=== PATIENT | female | born 1995 | race Caucasian/White ===

== ENCOUNTER 2022-09-08 12:18 | Outpatient (OUT) | payer BC, SELFPAY ==
[2022-09-09 01:07] LABS: Progesterone 22.8 ng/mL (.)
== END 2022-09-08 12:19 ==
LOC: LAB 09-21 12:18
PROVIDERS: PCP Family Medicine; Visit Provider Obstetrics & Gynecology
DX: N97.0 Female infertility associated with anovulation (principal)
CPT/HCPCS: 36415; 84144

== ENCOUNTER 2022-10-09 09:27 | Outpatient (OUT) | payer BC, SELFPAY ==
[2022-10-10 07:07] LABS: Progesterone 29.9 ng/mL (.)
== END 2022-10-09 09:28 | disposition home or self-care (01) ==
PROVIDERS: PCP Family Medicine; Visit Provider Obstetrics & Gynecology
DX: N97.0 Female infertility associated with anovulation (principal)
CPT/HCPCS: 36415; 84144

== ENCOUNTER 2022-12-10 12:07 | Outpatient (OUT) | payer BC, SELFPAY ==
[2022-12-10 12:50] LABS: HCG Quantitative 77 mIU/mL
== END 2022-12-10 12:08 | disposition home or self-care (01) ==
LOC: LAB 12:08
PROVIDERS: PCP Family Medicine; Visit Provider Family Medicine
DX: N91.2 Amenorrhea, unspecified (principal)
CPT/HCPCS: 36415; 84702

== ENCOUNTER 2022-12-14 12:14 | Outpatient (OUT) | payer BC, SELFPAY ==
[2022-12-14 13:06] LABS: HCG Quantitative 333 mIU/mL
== END 2022-12-14 12:15 | disposition home or self-care (01) ==
LOC: LAB 12:19
PROVIDERS: PCP Family Medicine; Visit Provider Obstetrics & Gynecology
DX: N92.6 Irregular menstruation, unspecified (principal)
CPT/HCPCS: 36415; 84702

== ENCOUNTER 2022-12-21 16:54 | Outpatient (OUT) | payer BC, SELFPAY ==
[2022-12-21 17:56] LABS: HCG Quantitative 6023 mIU/mL
== END 2022-12-21 16:55 | disposition home or self-care (01) ==
PROVIDERS: PCP Family Medicine; Visit Provider Obstetrics & Gynecology
DX: N92.6 Irregular menstruation, unspecified (principal)
CPT/HCPCS: 36415; 84702

== ENCOUNTER 2023-01-13 13:02 | Outpatient (OUT) | payer BC, SELFPAY ==
--- NOTE | 2023-01-13 13:04 | US_ITS ---
[address] [address] Patient Name: ESTER BRADFORD MRN: [facility]:[id number] date: 1995 Sex: F Assigned Patient Location: US Current Patient Location: US Accession/Order Number: [id number] Exam Date: 01/13/2023 13:05 Report Date: 01/13/2023 14:16 At the request of: RICARDO LEGGETT Procedure: US OB transvaginal EXAMINATION: US OB transvaginal HISTORY: MISSED MENSES COMPARISON: No relevant comparison available. FINDINGS: [place] intrauterine gestation Gestational sac: 3.63 cm, 8 weeks 6 days CRL: 2.10 cm, 8 weeks 5 days Yolk sac: 3.7 mm Heart rate: 166 bpm Cervix: Closed, 4.2 cm The uterus is normal, retroverted, retroflexed The right ovary is normal. The left ovary is not visualized Clinical age: 8 weeks 6 days Clinical NITHYA: 08/19/2023 Ultrasound age: 8 weeks 5 days Ultrasound NITHYA: 08/20/2023 US/US OB transvaginal IMPRESSION: Viable [place] intrauterine gestation measuring 8 weeks 5 days Electronically authenticated by: DUDLEY HERNÁNDEZ Date: 01/13/2023 14:16
== END 2023-01-13 13:03 | disposition home or self-care (01) ==
LOC: US 13:02
PROVIDERS: PCP Family Medicine; Visit Provider Obstetrics & Gynecology
DX: Z34.91 Encounter for supervision of normal pregnancy, unspecified, first trimester (principal); Z3A.08 8 weeks gestation of pregnancy
CPT/HCPCS: 76817

== ENCOUNTER 2023-01-24 12:13 | Outpatient (OUT) | payer BC, SELFPAY ==
[2023-01-24 12:46] LABS: Basophils Percent Auto 0.2 % (0.2-2.0); Eosinophils Absolute Auto 0.1 10^3/uL (0.0-0.7); Hematocrit 35.3 % (36.0-48.0); Hemoglobin 11.9 g/dL (12.0-16.0); Immature Granulocytes Abs Auto 0.03 10^3/uL (0.00-0.03); Immature Granulocytes Pct Auto 0.3 % (0.0-0.5); Lymphocytes Percent Auto 20.9 % (20.5-60.0); Mean Corpuscular HGB Conc 33.7 g/dL (29.9-35.2); Mean Corpuscular Hemoglobin 29.3 pg (26.7-34.0); Mean Corpuscular Volume 86.9 fL (81.0-99.0); Mean Platelet Volume 9.5 fL (9.5-13.5); Monocytes Absolute Auto 0.8 10^3/uL (0.3-0.8); Monocytes Percent Auto 7.9 % (1.7-12.0); Neutrophils Absolute Auto 6.7 10^3/uL (1.4-6.5); Neutrophils Percent Auto 69.7 % (43.0-75.0); Platelet Count 301 10^3/uL (150-450); Red Blood Count 4.06 10^6/uL (4.20-5.40); Red Cell Distribution Width 12.8 % (11.0-15.0); White Blood Count 9.6 10^3/uL (4.0-11.0)
[2023-01-24 12:54] LABS: Estimated Average Glucose 94 mg/dL; Glycohemoglobin A1C 4.9 % (4.5-6.2)
[2023-01-24 13:32] LABS: Thyroid Stimulating Hormone 0.606 uIU/mL (0.358-3.740)
[2023-01-25 06:18] LABS: HBsAg Screen Negative (Negative); HCV Ab Non Reactive (Non Reactive); HIV Ab/p24 Ag Screen Non Reactive (Non Reactive); Rubella Antibodies, IgG 7.95 index (Immune >0.99)
[2023-01-25 11:08] LABS: Rapid Plasma Reagin, Quant Non Reactive titer (NonRea<1:1)
== END 2023-01-24 12:14 | disposition home or self-care (01) ==
LOC: LAB 12:13
PROVIDERS: PCP Family Medicine; Visit Provider Obstetrics & Gynecology
DX: Z34.80 Encounter for supervision of other normal pregnancy, unspecified trimester (principal)
CPT/HCPCS: 36415; 83036; 84443; 85025; 86592; 86762; 86803; 86850; 86900; 86901; 87086; 87340; 87389

== ENCOUNTER 2023-02-08 17:16 | Outpatient (RCR) | payer BC, SELFPAY ==
[2023-02-08] MEDS: 0.9 % SODIUM CHLORIDE 1,000 ML 1000 ML IV (17:43)
[2023-02-08 17:50] LABS: Basophils Percent Auto 0.4 % (0.2-2.0); Eosinophils Absolute Auto 0.1 10^3/uL (0.0-0.7); Eosinophils Percent Auto 1.1 % (0.9-7.0); Hematocrit 37.8 % (36.0-48.0); Hemoglobin 12.6 g/dL (12.0-16.0); Immature Granulocytes Abs Auto 0.04 10^3/uL (0.00-0.03); Immature Granulocytes Pct Auto 0.4 % (0.0-0.5); Lymphocytes Absolute Auto 2.1 10^3/uL (1.2-3.8); Lymphocytes Percent Auto 18.9 % (20.5-60.0); Mean Corpuscular HGB Conc 33.3 g/dL (29.9-35.2); Mean Corpuscular Volume 87.1 fL (81.0-99.0); Mean Platelet Volume 9.1 fL (9.5-13.5); Monocytes Absolute Auto 0.9 10^3/uL (0.3-0.8); Monocytes Percent Auto 7.8 % (1.7-12.0); Neutrophils Absolute Auto 8.1 10^3/uL (1.4-6.5); Neutrophils Percent Auto 71.4 % (43.0-75.0); Platelet Count 292 10^3/uL (150-450); Red Blood Count 4.34 10^6/uL (4.20-5.40); White Blood Count 11.3 10^3/uL (4.0-11.0)
[2023-02-08 18:10] LABS: Alanine Aminotransferase 14 U/L (14-59); Albumin Globulin Ratio 0.9; Albumin Level 3.7 g/dL (3.4-5.0); Alkaline Phosphatase 56 U/L (46-116); Anion Gap 13.4; Aspartate Amino Transferase 13 U/L (15-37); BUN Creatinine Ratio 16.1; Calcium 9.1 mg/dL (8.5-10.1); Carbon Dioxide 23.2 mmol/L (21.0-32.0); Chloride 101 mmol/L (98-107); Estimated GFR (African America >60 (>=60); Estimated GFR (Non-African Ame >60 (>=60); Globulin 3.9 g/dL; Glucose 85 mg/dL (74-106); Potassium 3.6 mmol/L (3.5-5.1); Sodium 134 mmol/L (136-145); Total Protein 7.6 g/dL (6.4-8.2)
== END 2023-02-24 23:59 | disposition home or self-care (01) ==
LOC: INF 17:16
PROVIDERS: PCP Family Medicine; Visit Provider Family Medicine
DX: E86.0 Dehydration (principal)
CPT/HCPCS: 36415; 80053; 85025

== ENCOUNTER 2023-02-22 10:35 | Outpatient (REF) | payer BC, SELFPAY ==
[2023-02-22 10:37] LABS: Adenovirus NOT DETECTED (NOT DETECTE); Bordetella parapertussis NOT DETECTED (NOT DETECTE); Coronavirus 229E NOT DETECTED (NOT DETECTE); Coronavirus HKU1 NOT DETECTED (NOT DETECTE); Coronavirus NL63 NOT DETECTED (NOT DETECTE); Coronavirus OC43 NOT DETECTED (NOT DETECTE); Human Metapneumovirus NOT DETECTED (NOT DETECTE); Human Rhinovirus/Enterovirus NOT DETECTED (NOT DETECTE); Influenza A NOT DETECTED (NOT DETECTE); Influenza B NOT DETECTED (NOT DETECTE); Mycoplasma pneumoniae NOT DETECTED (NOT DETECTE); Parainfluenza Virus 1 NOT DETECTED (NOT DETECTE); Parainfluenza Virus 2 NOT DETECTED (NOT DETECTE); Parainfluenza Virus 3 NOT DETECTED (NOT DETECTE); Parainfluenza Virus 4 NOT DETECTED (NOT DETECTE); Respiratory Syncytial Virus NOT DETECTED (NOT DETECTE); SARS-CoV-2 NOT DETECTED (NOT DETECTE)
== END 2023-02-22 10:36 | disposition home or self-care (01) ==
LOC: LAB 10:35
PROVIDERS: PCP Family Medicine; Visit Provider Family Medicine
DX: J32.9 Chronic sinusitis, unspecified (principal); N92.6 Irregular menstruation, unspecified
CPT/HCPCS: 0202U

== ENCOUNTER 2023-03-15 20:42 | Outpatient (REF) | payer BC, SELFPAY ==
[2023-03-18 14:10] LABS: Age Gdln ACOG Testing Note (.); IGP, rfx Aptima HPV ASCU Note (.)
== END 2023-03-15 20:43 | disposition home or self-care (01) ==
LOC: LAB 20:42
PROVIDERS: PCP Family Medicine; Visit Provider Obstetrics & Gynecology
DX: Z01.419 Encounter for gynecological examination (general) (routine) without abnormal findings (principal); N89.8 Other specified noninflammatory disorders of vagina; N92.6 Irregular menstruation, unspecified
CPT/HCPCS: G0145

== ENCOUNTER 2023-03-31 18:53 | Outpatient (OUT) | payer BC, SELFPAY ==
--- OUTSIDE RECORDS SUMMARY | 2023-03-31 18:56 | XMS_ITS | CCD ---
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 Name Role Phone Lydia Dudley Unavailable Mohini Martinez Unavailable OLEKSANDR ., DR SILVA Admitting Unavailable OLEKSANDR ., DR SILVA Attending Unavailable HOY ., DR PERDUE Primary Care Unavailable EDGAR, DR DUDLEY Emanuel Consulting Unavailable OLEKSANDR ., DR SILVA Consulting Unavailable JAMIL REEVES Admitting Unavailable JAMIL REEVES Attending Unavailable HOY ., DR PERDUE Primary Care Unavailable HOY ., DR PERDUE Consulting Unavailable DUDLEY LANE Consulting Unavailable HOY ., DR PERDUE Admitting Unavailable HOY ., DR PERDUE Attending Unavailable HOY ., DR PERDUE Primary Care Unavailable HOY ., DR PERDUE Consulting Unavailable JUD, DR DUDLEY Emanuel Consulting Unavailable OLEKSANDR ., DR SILVA Admitting Unavailable OLEKSANDR ., DR SILVA Attending Unavailable HOY ., DR PERDUE Referring Unavailable HOY ., DR PERDUE Primary Care Unavailable OLEKSANDR ., DR SILVA Consulting Unavailable HOY ., DR PERDUE Admitting Unavailable HOY ., DR PERDUE Attending Unavailable HOY ., DR PERDUE Consulting Unavailable HOY ., DR PERDUE Primary Care Unavailable HOY ., DR PERDUE Admitting Unavailable HOY ., DR PERDUE Attending Unavailable HOY ., DR PERDUE Primary Care Unavailable HOY ., DR PERDUE Consulting Unavailable OLEKSANDR ., DR SILVA Admitting Unavailable OLEKSANDR ., DR SILVA Attending Unavailable HOY ., DR PERDUE Primary Care Unavailable OLEKSANDR ., DR SILVA Consulting Unavailable HOY ., DR PERDUE Admitting Unavailable HOY ., DR PERDUE Attending Unavailable HOY ., DR PERDUE Primary Care Unavailable HOY ., DR PERDUE Consulting Unavailable HOY ., DR PERDUE Admitting Unavailable HOY ., DR PERDUE Attending Unavailable HOY ., DR PERDUE Primary Care Unavailable HOY ., DR PERDUE Consulting Unavailable OLEKSANDR ., DR SILVA Admitting Unavailable OLEKSANDR ., DR SILVA Attending Unavailable HOY ., DR PERDUE Primary Care Unavailable OLEKSANDR ., DR SILVA Consulting Unavailable OLEKSANDR ., DR SILVA Admitting Unavailable OLEKSANDR ., DR SILVA Attending Unavailable HOY ., DR PERDUE Primary Care Unavailable OLEKSANDR ., DR SILVA Consulting Unavailable OLEKSANDR ., DR SILVA Admitting Unavailable OLEKSANDR ., DR SILVA Attending Unavailable HOY ., DR PERDUE Primary Care Unavailable OLEKSANDR ., DR SILVA Consulting Unavailable HOY ., DR PERDUE Admitting Unavailable HOY ., DR PERDUE Attending Unavailable HOY ., DR PERDUE Primary Care Unavailable HOY ., DR PERDUE Consulting Unavailable HOY ., DR PERDUE Admitting Unavailable HOY ., DR PERDUE Attending Unavailable HOY ., DR PERDUE Primary Care Unavailable HOY ., DR PERDUE Consulting Unavailable Lam Vela Consulting Unavailable OLEKSANDR ., DR SILVA Admitting Unavailable OLEKSANDR ., DR SILVA Attending Unavailable HOY ., DR PERDUE Primary Care Unavailable OLEKSANDR ., DR SILVA Consulting Unavailable HOY ., DR PERDUE Admitting Unavailable HOY ., DR PERDUE Attending Unavailable HOY ., DR PERDUE Primary Care Unavailable HOY ., DR PERDUE Consulting Unavailable HOY ., DR PERDUE Admitting Unavailable HOY ., DR PERDUE Attending Unavailable HOY ., DR PERDUE Primary Care Unavailable HOY ., DR PERDUE Consulting Unavailable OLEKSANDR ., DR SILVA Admitting Unavailable OLEKSANDR ., DR SILVA Attending Unavailable HOY ., DR PERDUE Primary Care Unavailable OLEKSANDR ., DR SILVA Consulting Unavailable DAQUAN WADDELL Consulting Unavailable ALLISON BROOKE Consulting Unavailable OLEKSANDR ., DR SILVA Admitting Unavailable OLEKSANDR ., DR SILAV Attending Unavailable HOY ., DR PERDUE Primary Care Unavailable OLEKSANDR ., DR SILVA Consulting Unavailable HOY ., DR PERDUE Admitting Unavailable HOY ., DR PERDUE Attending Unavailable HOY ., DR PERDUE Primary Care Unavailable HOY ., DR PERDUE Consulting Unavailable HOY ., DR PERDUE Attending Unavailable HOY ., DR PERDUE Primary Care Unavailable HOY ., DR PERDUE Consulting Unavailable HOY ., DR PERDUE Admitting Unavailable HOY ., DR PERDUE Admitting Unavailable HOY ., DR PERDUE Attending Unavailable HOY ., DR PERDUE Primary Care Unavailable HOY ., DR PERDUE Consulting Unavailable OLEKSANDR ., DR SILVA Admitting Unavailable OLEKSANDR ., DR SILVA Attending Unavailable HOY ., DR PERDUE Primary Care Unavailable OLEKSANDR ., DR SILVA Consulting Unavailable Lam Vela Consulting Unavailable OLEKSANDR ., DR SILVA Admitting Unavailable OLEKSANDR ., DR SILVA Attending Unavailable HOY ., DR PERDUE Primary Care Unavailable OLEKSANDR ., DR SILVA Admitting Unavailable OLEKSANDR ., DR SILVA Attending Unavailable HOY ., DR PERDUE Primary Care Unavailable OLEKSANDRRICARDO Attending Unavailable Medications Current Medications Medication Drug Class(es) Dates Sig (Normalized) Sig (Original) [id number] 200 actuat albuterol 0.09 mg/actuat metered dose inhaler (1 source) beta2-Adrenergic Agonist Start: 01-27-2021 busPIRone (1 source) levocetirizine (2 sources) Histamine-1 Receptor Antagonist Xyzal Active Sertraline (1 source) Serotonin Reuptake Inhibitor Vitamin D3 (2 sources) Vitamin D3 Activ e Completed/Discontinued Medications Medication Drug Class(es) Dates Sig (Normalized) Sig (Original) 24 hr desvenlafaxine succinate 50 mg extended release oral tablet (2 sources) Serotonin and Norepinephrine Reuptake Inhibitor take 1 tablet by mouth every twenty-four hours dicyclomine hydrochloride 20 mg oral tablet (2 sources) Anticholinergic Start: 12-22-2020 take 1 tablet by mouth every twelve hours linaclotide 0.072 mg oral capsule (2 sources) Guanylate Cyclase-C Agonist Linzess 72 MCG O ral for 30 Not-Taking lubiprostone 0.008 mg oral capsule (2 sources) Chloride Channel Activator take 1 capsul e by mouth every twelve hours Problems Active Problems Problem Classification Problem Date Documented Da te Episodic/Chronic Abdominal pain (7 sources) Abdominal pain; Translations: [Unspecified abdominal pain] Onset: 07-08-2022 Episodic Asthma (2 sources) Exacerbation of intermittent asthma; Translations: [Mild intermittent asthma with (acute) exacerbation] Onset: 01-27-2021 Resolved: 01-27-2021 Chronic Endometriosis (1 source) Endometriosis, unspecified; Translations: [ENDOMETRIOSIS UNSPECIFIED] Onset: 07-12-2022 Chronic Female infertility (4 sources) Female infertility associated with anovulation; Translations: [FE INFERTILITY ASSOC W/ANOVULATION] Onset: 06-21-2022 Chronic Headache; including migraine (5 sources) Migraine, unspecified, not intractable, without status migrainosus; Translations: [MIGRAINE UNS NOT INTRACT W/O SM] Onset: 05-04-2022 Chronic Menstrual disorders (9 sources) Amenorrhea, unspecified; Translations: [Irregular menstruation, unspecified] Onset: 11-21-2021 Chronic Other female genital disorders (4 sources) Noninflammatory disorder of ovary, fallopian tube and broad ligament, unspecified; Translations: [OTH NONINFL D/O OVARY TUBE AND BRD LIG] Onset: 05-04-2022 Episodic Other gastrointestinal disorders (2 sources) Irritable bowel syndrome characterized by constipation; Translations: [Irritable bowel syndrome with constipation] Chronic Other gastrointestinal disorders (2 sources) Irritable bowel syndrome; Translations: [Mixed irritable bowel syndrome] Chronic Other gastrointestinal disorders (1 source) Mixed irritable bowel syndrome; Translations: [Irritable bowel syndrome with both constipation and diarrhea K58.2] Onset: 12-22-2020 Resolved: 12-22-2020 Chronic Other nutritional; endocrine; and metabolic disorders (5 sources) Metabolic syndrome; 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 Ovarian cyst (5 sources) Unspecified ovarian cyst, left side; Translations: [Other ovarian cyst, right side] Onset: 08-15-2021 Episodic Spondylosis; intervertebral disc disorders; other back problems (4 sources) Other cervical disc degeneration, unspecified cervical region; Translations: [OTH CERV DISC DEGENERATION UNS CERV] Onset: 09-24-2021 Chronic Unclassified (4 sources) CONTACT W/AND (SUSP) EXPOS COVID-19; Translations: [CONTACT W/AND (SUSP) EXPOS COVID-19] Onset: 02-12-2022 Past or Other Problems Problem Classification Problem Date Documented Da te Episodic/Chronic Acute bronchitis (5 sources) Acute bronchitis, unspecified; Translations: [ACUTE BRONCHITIS UNSPECIFIED] Onset: 04-02-2022 Episodic Immunizations and screening for infectious disease (1 source) Contact with and (suspected) exposure to other viral communicable diseases Onset: 01-27-2021 Resolved: 01-27-2021 Episodic Nausea and vomiting (2 sources) Nausea; Translations: [Nausea] Episodic Other gastrointestinal disorders (2 sources) Constipation alternates with diarrhea; Translations: [Other specified symptoms and signs involving the digestive system and abdomen] Episodic Other gastrointestinal disorders (4 sources) Abdominal distension (gaseous); Translations: [ABDOMINAL DISTENSION GASEOUS] Onset: 01-13-2022 Episodic Other screening for suspected conditions (not mental disorders or infectious disease) (4 sources) Other specified abnormal findings of blood chemistry; Translations: [OTH SPEC ABNORMAL FINDINGS BLD CHEM] Onset: 02-03-2022 Episodic Other upper respiratory infections (4 sources) Acute pharyngitis, unspecified; Translations: [ACUTE PHARYNGITIS UNSPECIFIED] Onset: 01-12-2022 Episodic Unclassified (1 source) CONTACT W/AND (SUSP) EXPOS COVID-19; Translations: [CONTACT W/AND (SUSP) EXPOS COVID-19] Onset: 04-01-2022 Results Test Name Value Interpretation Reference Range Facility CBC AUTO DIFFon 07-08-2022 BASO # 0.0 103/ul Normal 0.0-0.1 [facility] Comment on above: Performed By: #### R F #### [facility] [address] [place] [address] Dr. Venkat Sloan Basophils/100 WBC (Bld) 0.5 % Normal 0.2-2.0 [facility] Comment on above: Performed By: #### R F #### [facility] [address] [place] [address] Dr. Venkat Sloan EO # 0.1 103/ul Normal 0.0-0.7 [facility] Comment on above: Performed By: #### R F #### [facility] [address] [place] [address] Dr. Venkat Sloan Eosinophils/100 WBC (Bld) 1.7 % Normal 0.9-7.0 [facility] Comment on above: Performed By: #### R F #### [facility] [address] [place] [address] Dr. Venkat Sloan Erythrocyte distribution width (RBC) [Ratio] 12.7 % Normal 11.0-15.0 [facility] Comment on above: Performed By: #### R F #### [facility] [address] [place] [address] Dr. Venkat Sloan Hematocrit (Bld) [Volume fraction] 40.4 % Normal 36.0-48.0 [facility] Comment on above: Performed By: #### R F #### [facility] [address] [place] [address] Dr. Venkat Sloan Hemoglobin (Bld) [Mass/Vol] 13.1 g/dL Normal 12.0-16.0 [facility] Comment on above: Performed By: #### R F #### [facility] [address] [place] [address] Dr. Venkat Sloan IG # 0.02 10e3/ul Normal 0.00-0.03 [facility] Comment on above: Performed By: #### R F #### [facility] [address] [place] [address] Dr. Venkat Sloan IG % 0.3 % Normal 0.0-0.5 [facility] Comment on above: Performed By: #### R F #### [facility] [address] [place] [address] Dr. Venkat Sloan LYMPH # 2.0 103/ul Normal 1.2-3.8 [facility] Comment on above: Performed By: #### R F #### [facility] [address] [place] [address] Dr. Venkat Sloan Lymphocytes/100 WBC (Bld) 26.2 % Normal 20.5-60.0 [facility] Comment on above: Performed By: #### R F #### [facility] [address] [place] [address] Dr. Venkat Sloan MANUAL DIFF REQ NO Normal [facility] Comment on above: Performed By: #### R F #### [facility] [address] [place] [address] Dr. Venkat Sloan MCH (RBC) [Entitic mass] 28.4 pg Normal 26.7-34.0 [facility] Comment on above: Performed By: #### R F #### [facility] [address] [place] [address] Dr. Venkat Sloan MCHC (RBC) [Mass/Vol] 32.4 g/dL Normal 29.9-35.2 [facility] Comment on above: Performed By: #### R F #### [facility] [address] [place] [address] Dr. Venkat Sloan MCV (RBC) [Entitic vol] 87.4 fL Normal 81.0-99.0 [facility] Comment on above: Performed By: #### R F #### [facility] [address] [place] [address] Dr. Venkat Sloan MONO # 0.7 103/ul Normal 0.3-0.8 [facility] Comment on above: Performed By: #### R F #### [facility] [address] [place] [address] Dr. Venkat Sloan Monocytes/100 WBC (Bld) 8.8 % Normal 1.7-12.0 [facility] Comment on above: Performed By: #### R F #### [facility] [address] [place] [address] Dr. Venkat Sloan NEUT # 4.8 103/ul Normal 1.4-6.5 [facility] Comment on above: Performed By: #### R F #### [facility] [address] [place] [address] Dr. Venkat Sloan Neutrophils/100 WBC (Bld) 62.5 % Normal 43.0-75.0 [facility] Comment on above: Performed By: #### R F #### [facility] [address] [place] [address] Dr. Venkat Sloan Platelet mean volume (Bld) [Entitic vol] 8.5 fL Critically low 9.5-13.5 [facility] Comment on above: Performed By: #### R F #### [facility] [address] [place] [address] Dr. Venkat Sloan PLT 331 103/ul Normal 150-450 [facility] Comment on above: Performed By: #### R F #### [facility] [address] [place] [address] Dr. Venkat Sloan RBC 4.62 106/ul Normal 4.20-5.40 [facility] Comment on above: Performed By: #### R F #### [facility] [address] [place] [address] Dr. Venkat Sloan WBC 7.7 103/ul Normal 4.0-11.0 [facility] Comment on above: Performed By: #### R F #### [facility] [address] [place] [address] Dr. Venkat Sloan PREG QUANT HCGon 07-08-2022 HCG QUANT <1 Normal [facility] Comment on above: Performed By: #### P REGQNT #### [facility] [address] [place] [address] Dr. Venkat Sloan HCG RANGE SEE BELOW Normal [facility] Comment on above: Result Comment: 5-50 0.2-1 WEEK 50-500 1-2 WEEKS 100-5,000 2-3 WEEKS 500-10,000 3-4 WEEKS 1,000-50,000 4-5 WEEKS 10,000-100,000 5-6 WEEKS 15,000-200,000 6-8 WEEKS 10,000-100,000 2-3 MONTHS Performed By: #### P REGQNT #### [facility] [address] [place] [address] Dr. Venkat Sloan PROGESTERONEon 06-23-2022 Progesterone 5.7 ng/mL Normal [facility] Comment on above: Result Comment: Foll icular phase 0.1 - 0.9 Luteal phase 1.8 - 23.9 Ovulation phase 0.1 - 12.0 First trimester 11.0 - 44.3 Second trimester 25.4 - 83.3 Third trimester 58.7 - 214.0 Postmenopausal 0.0 - 0.1 Performed By: #### T SH #### [facility] [address] [place] [address] Dr. Venkat Sloan PREG QUANT HCGon 05-31-2022 HCG QUANT 1 mIU/mL Normal [facility] Comment on above: Performed By: #### P REGQNT #### [facility] [address] [place] [address] Dr. Venkat Sloan HCG RANGE SEE BELOW Normal [facility] Comment on above: Result Comment: 5-50 0.2-1 WEEK 50-500 1-2 WEEKS 100-5,000 2-3 WEEKS 500-10,000 3-4 WEEKS 1,000-50,000 4-5 WEEKS 10,000-100,000 5-6 WEEKS 15,000-200,000 6-8 WEEKS 10,000-100,000 2-3 MONTHS Performed By: #### P REGQNT #### [facility] [address] [place] [address] Dr. Venkat Sloan PROGESTERONEon 05-21-2022 Progesterone 12.4 ng/mL Normal [facility] Comment on above: Result Comment: Foll icular phase 0.1 - 0.9 Luteal phase 1.8 - 23.9 Ovulation phase 0.1 - 12.0 First trimester 11.0 - 44.3 Second trimester 25.4 - 83.3 Third trimester 58.7 - 214.0 Postmenopausal 0.0 - 0.1 Performed By: #### I NFLUAB #### [facility] [address] [place] [address] Dr. Venkat Sloan MRI BRAIN WO W CONon 023 MRI BRAIN WO W CON EXAMINATION: MRI BRAIN WO W CON HISTORY: Migraine , chronic; dizziness COMPARISON: No relevant comparison available. TECHNIQUE: A variety of imaging planes and parameters were utilized for visualization of suspected pathology. Images were performed without and with Dotarem contrast. FINDINGS: CEREBRUM: No edema, hemorrhage, mass, acute infarction, or inappropriate atrophy. CEREBELLUM: No edema, hemorrhage, mass, acute infarction, or inappropriate atrophy. BRAINSTEM: No edema, hemorrhage, mass, acute infarction, or inappropriate atrophy. CSF SPACES: Ventricles, cisterns, and sulci are appropriate for age. No hydrocephalus, subarachnoid hemorrhage, or mass. SKULL: No mass or other significant visible lesion. SINUSES: Limited views demonstrate no significant mucosal thickening or fluid. ORBITS: Limited views are unremarkable. OTHER: No abnormal meningeal or parenchymal enhancement. IMPRESSION: 1. No abnormal or suspicious findings to account for patient's symptoms. Electronically authenticated by: LAM VELA Date: 2022-05-04 08:42 Normal [facility] PREG QUANT HCGon 05-04-2022 HCG QUANT <1 Normal [facility] Comment on above: Performed By: #### R F #### [facility] [address] [address] [address] Venkat Sloan HCG RANGE SEE BELOW Normal [facility] Comment on above: Result Comment: 5-50 0.2-1 WEEK 50-500 1-2 WEEKS 100-5,000 2-3 WEEKS 500-10,000 3-4 WEEKS 1,000-50,000 4-5 WEEKS 10,000-100,000 5-6 WEEKS 15,000-200,000 6-8 WEEKS 10,000-100,000 2-3 MONTHS Performed By: #### R F #### [facility] [address] [place] [address] Dr. Venkat Sloan XR HYSTEROSALPINGOGRAMon XR HYSTEROSALPINGOGRAM EXAMINATION: XR HYSTEROSALPINGOGRAM HISTORY: Noninflammatory disorder of the female genital organs COMPARISON: No relevant comparison available. TECHNIQUE: Informed consent was obtained. A sterile vaginal speculum was introduced and, following cleansing of the cervix, a balloon-tipped catheter was inserted into the endometrial cavity. The procedure was then completed in the usual manner with water-soluble contrast. Standard level fluoroscopic mode of operation utilized. FINDINGS: FALLOPIAN TUBES: Patent fallopian tubes bilaterally. ENDOMETRIAL CAVITY: No scarring, filling defects, or dilatation. OTHER: Negative. IMPRESSION: 1. Patent fallopian tubes bilaterally. Slight delay in spillage of contrast from right fallopian tube. 2. Unremarkable uterus. Electronically authenticated by: LAM VELA Date: 2022-05-04 16:09 Normal [facility] PROGESTERONEon 04-24-2022 Progesterone 0.4 ng/mL Normal [facility] Comment on above: Result Comment: Foll icular phase 0.1 - 0.9 Luteal phase 1.8 - 23.9 Ovulation phase 0.1 - 12.0 First trimester 11.0 - 44.3 Second trimester 25.4 - 83.3 Third trimester 58.7 - 214.0 Postmenopausal 0.0 - 0.1 Performed By: #### I NFLUAB #### [facility] [address] [place] [address] Dr. Venkat Sloan CULTURE SPUTUMon 04-02-2022 CULTURE SPUTUM Culture Observations : NORMAL RESPIRATORY NATALEE. Normal [facility] Comment on above: Performed By: #### R F #### [facility] [address] [place] [address] Dr. Venkat Sloan SPUTUM GRAM STAINon 04-02-19 23 COMMENTS Normal [facility] Comment on above: Performed By: #### R F #### [facility] [address] [place] [address] Dr. Venkat Sloan DIPHTHEROIDS [facility] Comment on above: Performed By: #### R F #### [facility] [address] [place] [address] Dr. Venkat Sloan EPITHELIALS <25 Normal [facility] Comment on above: Performed By: #### R F #### [facility] [address] [place] [address] Dr. Venkat Sloan FUNGAL ELEMENTS Normal [facility] Comment on above: Performed By: #### R F #### [facility] [address] [place] [address] Dr. Venkat MORGAN NEG BACILLI RARE Normal [facility] Comment on above: Performed By: #### R F #### [facility] [address] [place] [address] Dr. Venkat MORGAN NEG DIPPLOCOCCI [facility] Comment on above: Performed By: #### R F #### [facility] [address] [place] [address] Dr. Venkat Sloan GRAM POS BACILLI [facility] Comment on above: Performed By: #### R F #### [facility] [address] [place] [address] Dr. Venkat Sloan GRAM POSITIVE COCCI RARE Normal [facility] Comment on above: Performed By: #### R F #### [facility] [address] [place] [address] Dr. Venkat Sloan WBC (Bld) [#/Vol] 10*3/uL Normal [facility] Comment on above: Performed By: #### R F #### [facility] [address] [place] [address] Dr. Venkat Sloan Covid-19 PCR ([facility])on SARS-CoV-2 (COVID-19) RNA SHIRIN+probe Ql (Unsp spec) Not detected Normal NOT DETECTED [facility] Comment on above: Result Comment: This test is not yet approved or cleared by the [place] FDA. When there are no FDA-approved or cleared tests available, and other criteria are met, FDA can make tests available under an emergency access mechanism called an Emergency Use Authorization (EUA). The EUA for this test is supported by the [place] of Health and Human Service's (HHS's) declaration that circumstances exist to justify the emergency use of in vitro diagnostics for the detection and/or diagnosis of the virus that causes COVID-19. This EUA will remain in effect (meaning this test can be used) for the duration of the COVID-19 declaration justifying emergency of IVDs, unless it is terminated or revoked by FDA (after which the test may no longer be used). When diagnostic testing is negative, the possibility of a false negative should be considered in the context of a patient's recent exposures and the presence of clinical signs and symptoms consistent with SARS-CoV-2. Performed By: #### P REGQNT #### [facility] [address] [place] [address] Dr. Venkat Sloan INFLUENZA A AND B AGon 04-01 INFLUANEGH SEE BELOW Normal [facility] Comment on above: Result Comment: Nega tive for Flu A protein angiten. Infection due to Flu A cannot be ruled out. Flu A angiten in the sample may be below the detection limit of the test. Performed By: #### I NFLUAB #### [facility] [address] [place] [address] Dr. Venkat Sloan INFLUBNEGH SEE BELOW Normal [facility] Comment on above: Result Comment: Nega tive for Flu B protein antigen. Infection due to Flu B cannot be ruled out. Flu B antigen in the sample may be below the detection limit of the test. Performed By: #### I NFLUAB #### [facility] [address] [address] [address] Venkat Sloan INFLUENZA A AG Negative Normal NEGATIVE SEE COMMENT [facility] Comment on above: Performed By: #### I NFLUAB #### [facility] [address] [address] [address] Venkat Sloan INFLUENZA B AG Negative Normal NEGATIVE SEE COMMENT [facility] Comment on above: Performed By: #### I NFLUAB #### [facility] [address] [address] [address] Venkat Sloan XR CHEST 2 Von 03-24-2022 XR CHEST 2 V EXAM: XR CHEST 2 V HISTORY: . Acute bronchitis . COMPARISON: 03/10/2021 TECHNIQUE: Frontal and lateral chest FINDINGS: Heart and vascularity are unremarkable. Lungs are expanded and free of focal infiltrates. No acute bony abnormality is appreciated. IMPRESSION: No acute heart or lung disease identified. Electronically authenticated by: DUDLEY LANE Date: 2022-03-24 12:33 Normal [facility] Covid-19 PCR ([facility])on 02-25 SARS-CoV-2 (COVID-19) RNA SHIRIN+probe Ql (Unsp spec) Not detected Normal NOT DETECTED [facility] Comment on above: Result Comment: When diagnostic testing is negative, the possibility of a false negative should be considered in the context of a patient's recent exposures and the presence of clinical signs and symptoms consistent with SARS-CoV-2. This test is not yet approved or cleared by the [place] FDA. When there are no FDA-approved or cleared tests available, and other criteria are met, FDA can make tests available under an emergency access mechanism called an Emergency Use Authorization (EUA). The EUA for this test is supported by the [employer] of Health and Human Service's declaration that circumstances exist to justify the emergency use of in vitro diagnostics for the detection and/or diagnosis of the virus that causes COVID-19. This EUA will remain in effect for the duration of the COVID-19 declaration justifying emergency of IVDs, unless it is terminated or revoked by the FDA (after which the test may no longer be used). Performed By: #### R F #### [facility] [address] [place] [address] Dr. Venkat Sloan INFLUENZA A AND B AGon 03-15 [facility] SEE BELOW Normal [facility] Comment on above: Result Comment: Nega tive for Flu A protein angiten. Infection due to Flu A cannot be ruled out. Flu A angiten in the sample may be below the detection limit of the test. Performed By: #### I NFLUAB #### [facility] [address] [place] [address] Dr. Venkat Sloan INFLUBNEG SEE BELOW Normal [facility] Comment on above: Result Comment: Nega tive for Flu B protein antigen. Infection due to Flu B cannot be ruled out. Flu B antigen in the sample may be below the detection limit of the test. Performed By: #### I NFLUAB #### [facility] [address] [place] [address] Dr. Venkat Sloan INFLUENZA A AG Negative Normal NEGATIVE SEE COMMENT [facility] Comment on above: Performed By: #### I NFLUAB #### [facility] [address] [place] [address] Dr. Venkat Sloan INFLUENZA B AG Negative Normal NEGATIVE SEE COMMENT [facility] Comment on above: Performed By: #### I NFLUAB #### [facility] [address] [place] [address] Dr. Venkat Sloan INTERNAL CONTROLS Within Normal Limits Normal Wi thin Normal Limits [facility] Comment on above: Performed By: #### I NFLUAB #### [facility] [address] [place] [address] Dr. Venkat Sloan Covid-19 PCR ([facility])on 02-25 SARS-CoV-2 (COVID-19) RNA SHIRIN+probe Ql (Unsp spec) Not detected Normal NOT DETECTED [facility] Comment on above: Result Comment: When diagnostic testing is negative, the possibility of a false negative should be considered in the context of a patient's recent exposures and the presence of clinical signs and symptoms consistent with SARS-CoV-2. This test is not yet approved or cleared by the [place] FDA. When there are no FDA-approved or cleared tests available, and other criteria are met, FDA can make tests available under an emergency access mechanism called an Emergency Use Authorization (EUA). The EUA for this test is supported by the [employer] of Health and Human Service's declaration that circumstances exist to justify the emergency use of in vitro diagnostics for the detection and/or diagnosis of the virus that causes COVID-19. This EUA will remain in effect for the duration of the COVID-19 declaration justifying emergency of IVDs, unless it is terminated or revoked by the FDA (after which the test may no longer be used). Performed By: #### I NFLUAB #### [facility] [address] [place] [address] Dr. Venkat Sloan INFLUENZA A AND B [facility] 03-12 [facility] SEE BELOW Normal [facility] Comment on above: Result Comment: Nega tive for Flu A protein angiten. Infection due to Flu A cannot be ruled out. Flu A angiten in the sample may be below the detection limit of the test. Performed By: #### I NFLUAB #### [facility] [address] [place] [address] Dr. [facility] Normal [facility] Comment on above: Result Comment: Nega tive for Flu B protein antigen. Infection due to Flu B cannot be ruled out. Flu B antigen in the sample may be below the detection limit of the test. Performed By: #### I NFLUAB #### [facility] [address] [place] [address] Dr. Venkat Sloan INFLUENZA A AG Negative Normal NEGATIVE SEE COMMENT [facility] Comment on above: Performed By: #### I NFLUAB #### [facility] [address] [place] [address] Dr. Venkat Sloan INFLUENZA B AG Negative Normal NEGATIVE SEE COMMENT [facility] Comment on above: Performed By: #### I NFLUAB #### [facility] [address] [place] [address] Dr. Venkat Sloan INTERNAL CONTROLS Within Normal Limits Normal Wi thin Normal Limits [facility] Comment on above: Performed By: #### I NFLUAB #### [facility] [address] [place], [place] [address] Dr. Venkat Sloan PROGESTERONEon 02-20-2022 Progesterone 0.3 ng/mL Normal [facility] Comment on above: Result Comment: Foll icular phase 0.1 - 0.9 Luteal phase 1.8 - 23.9 Ovulation phase 0.1 - 12.0 First trimester 11.0 - 44.3 Second trimester 25.4 - 83.3 Third trimester 58.7 - 214.0 Postmenopausal 0.0 - 0.1 Performed By: #### R F #### [facility] [address] [place], [place] [address] Dr. Venkat Sloan ACTH STIMULATIONon 2 Andros Baseline 49 ng/dL Normal 41-262 [facility] Comment on above: Performed By: #### R F #### [facility] [address] [place], [place] [address] Dr. Venkat Sloan Andros Stimulated 82 ng/dL Normal Not Estab. The [facility] Comment on above: Performed By: #### R F #### [facility] [address] [place], [place] [address] Dr. Venkat Sloan Covid-19 PCR ([facility])on 01-26 SARS-CoV-2 (COVID-19) RNA SHIRIN+probe Ql (Unsp spec) Not detected Normal NOT DETECTED [facility] Comment on above: Result Comment: This test is not yet approved or cleared by the [place] FDA. When there are no FDA-approved or cleared tests available, and other criteria are met, FDA can make tests available under an emergency access mechanism called an Emergency Use Authorization (EUA). The EUA for this test is supported by the [employer] of Health and Human Service's (HHS's) declaration that circumstances exist to justify the emergency use of in vitro diagnostics for the detection and/or diagnosis of the virus that causes COVID-19. This EUA will remain in effect (meaning this test can be used) for the duration of the COVID-19 declaration justifying emergency of IVDs, unless it is terminated or revoked by FDA (after which the test may no longer be used). When diagnostic testing is negative, the possibility of a false negative should be considered in the context of a patient's recent exposures and the presence of clinical signs and symptoms consistent with SARS-CoV-2. Performed By: #### I NFLUAB #### [facility] [address] [place] [address] Dr. Venkat Sloan INFLUENZA A AND B AGon 02-10 [facility] SEE BELOW Normal [facility] Comment on above: Result Comment: Nega tive for Flu A protein angiten. Infection due to Flu A cannot be ruled out. Flu A angiten in the sample may be below the detection limit of the test. Performed By: #### P REGQNT #### [facility] [address] [place] [address] Dr. Venkat Sloan INFLUBNEG SEE BELOW Normal [facility] Comment on above: Result Comment: Nega tive for Flu B protein antigen. Infection due to Flu B cannot be ruled out. Flu B antigen in the sample may be below the detection limit of the test. Performed By: #### P REGQNT #### [facility] [address] [place] [address] Dr. Venkat Sloan INFLUENZA A AG Negative Normal NEGATIVE SEE COMMENT [facility] Comment on above: Performed By: #### P REGQNT #### [facility] [address] [place] [address] Dr. Venkat Sloan INFLUENZA B AG Negative Normal NEGATIVE SEE COMMENT [facility] Comment on above: Performed By: #### P REGQNT #### [facility] [address] [place] [address] Dr. Venkat Sloan INTERNAL CONTROLS Within Normal Limits Normal Wi thin Normal Limits [facility] Comment on above: Performed By: #### P REGQNT #### [facility] [address] [place] [address] Dr. Venkat Sloan DHEA SERUMon 01-19-2022 Dehydroepiandrosterone (DHEA) 82 ng/dL Normal 31-701 [facility] Comment on above: Result Comment: Age 1 - 5 years 0 - 67 6 - 7 years 0 - 110 8 - 10 years 0 - 185 11 - 12 years 0 - 201 13 - 14 years 0 - 318 15 - 16 years 39 - 481 17 - 19 years 40 - 491 >19 years 31 - 701 Performed By: #### T SH #### [facility] [address] [place] [address] Dr. Venkat Sloan DHEA-SULFATEon 01-14-2022 DHEA-Sulfate 34.0 ug/dL Critically low 84.8-378.0 [facility] Comment on above: Performed By: #### R F #### [facility] [address] [place] [address] Dr. Venkat Sloan FSHon 01-14-2022 FSH 2.2 mIU/mL Normal [facility] Comment on above: Result Comment: Adul t Female: Follicular phase 3.5 - 12.5 Ovulation phase 4.7 - 21.5 Luteal phase 1.7 - 7.7 Postmenopausal 25.8 - 134.8 Performed By: #### L BCFSH #### [facility] [address] [place] [address] Dr. Venkat Sloan LUTEINIZING HORMONE (LH)on LH 5.1 mIU/mL Normal [facility] Comment on above: Result Comment: Adul t Female: Follicular phase 2.4 - 12.6 Ovulation phase 14.0 - 95.6 Luteal phase 1.0 - 11.4 Postmenopausal 7.7 - 58.5 Performed By: #### I NFLUAB #### [facility] [address] [place] [address] Dr. Venkat Sloan PROLACTINon 01-14-2022 Prolactin 8.0 ng/mL Normal 4.8-23.3 [facility] Comment on above: Performed By: #### P ROLAC #### [facility] [address] [place] [address] Dr. Venkat Sloan CBC AUTO DIFFon 01-13-2022 BASO # 0.0 103/ul Normal 0.0-0.1 [facility] Comment on above: Performed By: #### T SH #### [facility] [address] [place] [address] Dr. Venkat Sloan Basophils/100 WBC (Bld) 0.4 % Normal 0.2-2.0 [facility] Comment on above: Performed By: #### T SH #### [facility] [address] [place] [address] Dr. Venkat Sloan EO # 0.1 103/ul Normal 0.0-0.7 [facility] Comment on above: Performed By: #### T SH #### [facility] [address] [place] [address] Dr. Venkat Sloan Eosinophils/100 WBC (Bld) 1.2 % Normal 0.9-7.0 [facility] Comment on above: Performed By: #### T SH #### [facility] [address] [place] [address] Dr. Venkat Solan Erythrocyte distribution width (RBC) [Ratio] 12.7 % Normal 11.0-15.0 [facility] Comment on above: Performed By: #### T SH #### [facility] [address] [place] [address] Dr. Venkat Sloan Hematocrit (Bld) [Volume fraction] 41.1 % Normal 36.0-48.0 [facility] Comment on above: Performed By: #### T SH #### [facility] [address] [place] [address] Dr. Venkat Sloan Hemoglobin (Bld) [Mass/Vol] 13.1 g/dL Normal 12.0-16.0 [facility] Comment on above: Performed By: #### T SH #### [facility] [address] [place] [address] Dr. Venkat Sloan IG # 0.03 10e3/ul Normal 0.00-0.03 [facility] Comment on above: Performed By: #### T SH #### [facility] [address] [place] [address] Dr. Venkat Sloan IG % 0.3 % Normal 0.0-0.5 [facility] Comment on above: Performed By: #### T SH #### [facility] [address] [place] [address] Dr. Venkat Sloan LYMPH # 1.6 103/ul Normal 1.2-3.8 [facility] Comment on above: Performed By: #### T SH #### [facility] [address] [place] [address] Dr. Venkat Sloan Lymphocytes/100 WBC (Bld) 15.0 % Critically low 20.5-60.0 [facility] Comment on above: Performed By: #### T SH #### [facility] [address] [place] [address] Dr. Venkat Sloan MANUAL DIFF REQ NO Normal [facility] Comment on above: Performed By: #### T SH #### [facility] [address] [place] [address] Dr. Venkat Sloan MCH (RBC) [Entitic mass] 28.5 pg Normal 26.7-34.0 [facility] Comment on above: Performed By: #### T SH #### [facility] [address] [place] [address] Dr. Venkat Sloan MCHC (RBC) [Mass/Vol] 31.9 g/dL Normal 29.9-35.2 [facility] Comment on above: Performed By: #### T SH #### [facility] [address] [place] [address] Dr. Venkat Sloan MCV (RBC) [Entitic vol] 89.3 fL Normal 81.0-99.0 [facility] Comment on above: Performed By: #### T SH #### [facility] [address] [place] [address] Dr. Venkat Sloan MONO # 0.9 103/ul Critically high 0.3-0.8 [facility] Comment on above: Performed By: #### T SH #### [facility] [address] [place] [address] Dr. Venkat Sloan Monocytes/100 WBC (Bld) 8.8 % Normal 1.7-12.0 [facility] Comment on above: Performed By: #### T SH #### [facility] [address] [place] [address] Dr. Venkat Sloan NEUT # 7.9 103/ul Critically high 1.4-6.5 [facility] Comment on above: Performed By: #### T SH #### [facility] [address] [place] [address] [address] Venkat Sloan Neutrophils/100 WBC (Bld) 74.3 % Normal 43.0-75.0 [facility] Comment on above: Performed By: #### T SH #### [facility] [address] [place] [address] [address] Venkat Sloan Platelet mean volume (Bld) [Entitic vol] 9.2 fL Critically low 9.5-13.5 [facility] Comment on above: Performed By: #### T SH #### [facility] [address] [place] [address] [address] Venkat Sloan PLT 300 103/ul Normal 150-450 [facility] Comment on above: Performed By: #### T SH #### [facility] [address] [place] [address] Dr. Venkat Sloan RBC 4.60 106/ul Normal 4.20-5.40 [facility] Comment on above: Performed By: #### T SH #### [facility] [address] [place] [address] Dr. Venkat Sloan WBC 10.7 103/ul Normal 4.0-11.0 [facility] Comment on above: Performed By: #### T SH #### [facility] [address] [place] [address] Dr. Venkat Sloan GLYCOHEMOGLOBIN A1Con 2021 ADA RECOMMENDATION SEE BELOW Normal [facility] Comment on above: Result Comment: ADA RECOMMENDED LIMIT 4.0 - 6.0 ADA THERAPEUTIC TARGET < 7.0 ACTION SUGGESTED > 7.0 Performed By: #### P REGQNT #### [facility] [address] [place] [address] Dr. Venkat Sloan Glucose [Mass/Vol] 100 mg/dL Normal [facility] Comment on above: Performed By: #### P REGQNT #### [facility] [address] [place] [address] Dr. Venkat Sloan HbA1c (Bld) [Mass fraction] 5.1 % Normal 4.5-6.2 [facility] Comment on above: Performed By: #### P REGQNT #### [facility] [address] [place] [address] [address] Venkat Sloan TSHon 01-13-2022 TSH 1.098 uIU/mL Normal 0.358-3.740 [facility] Comment on above: Performed By: #### T SH #### [facility] [address] [place] [address] [address] Venkat Sloan Covid-19 PCR ([facility])on 12-26 SARS-CoV-2 (COVID-19) RNA SHIRIN+probe Ql (Unsp spec) Not detected Normal NOT DETECTED [facility] Comment on above: Result Comment: This test is not yet approved or cleared by the [place] FDA. When there are no FDA-approved or cleared tests available, and other criteria are met, FDA can make tests available under an emergency access mechanism called an Emergency Use Authorization (EUA). The EUA for this test is supported by the [employer] of Health and Human Service's (HHS's) declaration that circumstances exist to justify the emergency use of in vitro diagnostics for the detection and/or diagnosis of the virus that causes COVID-19. This EUA will remain in effect (meaning this test can be used) for the duration of the COVID-19 declaration justifying emergency of IVDs, unless it is terminated or revoked by FDA (after which the test may no longer be used). When diagnostic testing is negative, the possibility of a false negative should be considered in the context of a patient's recent exposures and the presence of clinical signs and symptoms consistent with SARS-CoV-2. Performed By: #### I NFLUAB #### [facility] [address] [place], [place] [address] Dr. Venkat Sloan PREG QUANT HCGon 12-24-2021 HCG QUANT <1 Normal [facility] Comment on above: Performed By: #### P REGQNT #### [facility] [address] [place] [address] Dr. Venkat Sloan HCG RANGE SEE BELOW Normal [facility] Comment on above: Result Comment: 5-50 0.2-1 WEEK 50-500 1-2 WEEKS 100-5,000 2-3 WEEKS 500-10,000 3-4 WEEKS 1,000-50,000 4-5 WEEKS 10,000-100,000 5-6 WEEKS 15,000-200,000 6-8 WEEKS 10,000-100,000 2-3 MONTHS Performed By: #### P REGQNT #### [facility] [address] [place] [address] [address] Venkat Sloan HCG-BETA SUBUNIT QUANTon hCG,Beta Subunit,Qnt,Serum <1 Normal [facility] Comment on above: Result Comment: Fema le (Non-) 0 - 5 (Postmenopausal) 0 - 8 . Female () Weeks of Gestation 3 6 - 71 4 10 - 750 5 359 - 4126 6 548 - 01664 7 [phone] 8 [phone] 9 [phone] 10 49529 -[phone] 12 90961 -[phone] 14 98067 - 19723 15 92836 - 28766 16 3730 - 55941 17 9827 - 83903 18 3599 - 56059 [employer] ECLIA methodology Performed By: #### T SH #### [facility] [address] [place] [address] Dr. Venkat Sloan BRETT by IFAon 09-29-2021 Antinuclear Antibodies, IFA Negative Normal [facility] Comment on above: Result Comment: Nega tive <1:80 Borderline 1:80 Positive >1:80 ICAP nomenclature: AC-0 For more information about Hep-2 cell patterns use ANApatterns.org, the official website for the International Consensus on Antinuclear Antibody (BRETT) Patterns (ICAP). Performed By: #### A NAIFA #### [facility] [address] [place] [address] Dr. Venkat Sloan INSULINon 09-29-2021 Insulin 11.1 uIU/mL Normal 2.6-24.9 [facility] Comment on above: Performed By: #### T SH #### [facility] [address] [place] [address] Dr. Venkat Sloan ANTISTREPTOLYSIN O AB (ASO)o n 09-27-2021 Antistreptolysin O Ab <20.0 Normal 0.0-200.0 [facility] Comment on above: Performed By: #### P REGQNT #### [facility] [address] [place] [address] Dr. Venkat Sloan RHEUMATOID FACTORon 09-28-19 RA Latex Turbid. <10.0 Normal <14.0 [facility] Comment on above: Performed By: #### R F #### [facility] [address] [place] [address] Dr. Venkat Sloan CBC AUTO DIFFon 09-26-2021 BASO # 0.0 103/ul Normal 0.0-0.1 [facility] Comment on above: Performed By: #### T SH #### [facility] [address] [place] [address] Dr. Venkat Sloan Basophils/100 WBC (Bld) 0.3 % Normal 0.2-2.0 [facility] Comment on above: Performed By: #### T SH #### [facility] [address] [place] [address] Dr. Venkat Sloan EO # 0.1 103/ul Normal 0.0-0.7 [facility] Comment on above: Performed By: #### T SH #### [facility] [address] [place] [address] Dr. Venkat Sloan Eosinophils/100 WBC (Bld) 1.8 % Normal 0.9-7.0 [facility] Comment on above: Performed By: #### T SH #### [facility] [address] [place] [address] Dr. Venkat Sloan Erythrocyte distribution width (RBC) [Ratio] 12.9 % Normal 11.0-15.0 [facility] Comment on above: Performed By: #### T SH #### [facility] [address] [place] [address] Dr. Venkat Sloan Hematocrit (Bld) [Volume fraction] 39.8 % Normal 36.0-48.0 [facility] Comment on above: Performed By: #### T SH #### [facility] [address] [place] [address] Dr. Venkat Sloan Hemoglobin (Bld) [Mass/Vol] 12.7 g/dL Normal 12.0-16.0 [facility] Comment on above: Performed By: #### T SH #### [facility] [address] [place] [address] Dr. Venkat Sloan IG # 0.02 10e3/ul Normal 0.00-0.03 [facility] Comment on above: Performed By: #### T SH #### [facility] [address] [place] [address] Dr. Venkat Sloan IG % 0.3 % Normal 0.0-0.5 [facility] Comment on above: Performed By: #### T SH #### [facility] [address] [place] [address] Dr. Venkat Sloan LYMPH # 1.5 103/ul Normal 1.2-3.8 [facility] Comment on above: Performed By: #### T SH #### [facility] [address] [place] [address] Dr. Venkat Sloan Lymphocytes/100 WBC (Bld) 21.5 % Normal 20.5-60.0 [facility] Comment on above: Performed By: #### T SH #### [facility] [address] [place] [address] Dr. Venkat Sloan MANUAL DIFF REQ NO Normal [facility] Comment on above: Performed By: #### T SH #### [facility] [address] [place] [address] Dr. Venkat Sloan MCH (RBC) [Entitic mass] 28.5 pg Normal 26.7-34.0 [facility] Comment on above: Performed By: #### T SH #### [facility] [address] [place] [address] Dr. Venkat Sloan MCHC (RBC) [Mass/Vol] 31.9 g/dL Normal 29.9-35.2 [facility] Comment on above: Performed By: #### T SH #### [facility] [address] [place] [address] Dr. Venkta Sloan MCV (RBC) [Entitic vol] 89.2 fL Normal 81.0-99.0 [facility] Comment on above: Performed By: #### T SH #### [facility] [address] [place] [address] Dr. Venkat Sloan MONO # 0.5 103/ul Normal 0.3-0.8 [facility] Comment on above: Performed By: #### T SH #### [facility] [address] [place] [address] Dr. Venkat Sloan Monocytes/100 WBC (Bld) 7.6 % Normal 1.7-12.0 [facility] Comment on above: Performed By: #### T SH #### [facility] [address] [place] [address] Dr. Venkat Sloan NEUT # 4.9 103/ul Normal 1.4-6.5 [facility] Comment on above: Performed By: #### T SH #### [facility] [address] [place] [address] Dr. Venkat Sloan Neutrophils/100 WBC (Bld) 68.5 % Normal 43.0-75.0 [facility] Comment on above: Performed By: #### T SH #### [facility] [address] [place] [address] Dr. Venkat Sloan Platelet mean volume (Bld) [Entitic vol] 8.8 fL Critically low 9.5-13.5 [facility] Comment on above: Performed By: #### T SH #### [facility] [address] [place] [address] Dr. Venkat Sloan PLT 297 103/ul Normal 150-450 [facility] Comment on above: Performed By: #### T SH #### [facility] [address] [place] [address] Dr. Venkat Sloan RBC 4.46 106/ul Normal 4.20-5.40 [facility] Comment on above: Performed By: #### T SH #### [facility] [address] [place] [address] Dr. Venkat Sloan WBC 7.1 103/ul Normal 4.0-11.0 [facility] Comment on above: Performed By: #### T SH #### [facility] [address] [place] [address] [address] Venkat Sloan CRPon 09-26-2021 CRP [Mass/Vol] mg/L Normal <=1.0 [facility] Comment on above: Performed By: #### P REGQNT #### [facility] [address] [place] [address] Dr. Venkat Sloan FREE THYROXINE INDEX T7on FTI 2.71 Normal 1.30-4.50 [facility] Comment on above: Performed By: #### P REGQNT #### [facility] [address] [place] [address] Dr. Venkat Sloan T3U 33.0 % Normal 30.0-39.0 [facility] Comment on above: Performed By: #### P REGQNT #### [facility] [address] [place] [address] Dr. Venkat Sloan T4 [Mass/Vol] 8.20 ug/dL Normal 4.80-13.90 [facility] Comment on above: Performed By: #### P REGQNT #### [facility] [address] [place] [address] Dr. Venkat Sloan GLYCOHEMOGLOBIN A1Con 2021 ADA RECOMMENDATION SEE BELOW Normal [facility] Comment on above: Result Comment: ADA RECOMMENDED LIMIT 4.0 - 6.0 ADA THERAPEUTIC TARGET < 7.0 ACTION SUGGESTED > 7.0 Performed By: #### I NFLUAB #### [facility] [address] [place] [address] Dr. Venkat Sloan Glucose [Mass/Vol] 105 mg/dL Normal [facility] Comment on above: Performed By: #### I NFLUAB #### [facility] [address] [place] [address] Dr. Venkat Sloan HbA1c (Bld) [Mass fraction] 5.3 % Normal 4.5-6.2 [facility] Comment on above: Performed By: #### I NFLUAB #### [facility] [address] [place], [place] [id number] Dr. Venkat Sloan IRONon 09-26-2021 Iron [Mass/Vol] 49.0 ug/dL Critically low 50.0-170.0 [facility] Comment on above: Performed By: #### P REGQNT #### [facility] [address] [place] [address] Dr. Venkat Sloan LIPID PROFILEon 09-26-2021 CHOL-HDL RATIO NORM SEE BELOW Normal [facility] Comment on above: Result Comment: 3.3 - 4.4 LOW RISK 4.4 - 7.1 AVERAGE RISK 7.1 - 11.0 MODERATE RISK >11.0 HIGH RISK Performed By: #### P REGQNT #### [facility] [address] [place] [address] Dr. Venkat Sloan Cholesterol [Mass/Vol] 197 mg/dL Normal <=[address] [facility] Comment on above: Performed By: #### P REGQNT #### [facility] [address] [place] [address] Dr. Venkat Sloan Cholesterol in HDL [Mass/Vol] 64 mg/dL Critically high 40-60 [facility] Comment on above: Performed By: #### P REGQNT #### [facility] [address] [place] [address] Dr. Venkat Sloan Cholesterol in LDL [Mass/Vol] 123.4 mg/dL Normal [facility] Comment on above: Performed By: #### P REGQNT #### [facility] [address] [address] [address] Venkat Sloan Cholesterol.total/Choles terol in HDL [Mass ratio] 3.1 {ratio} Normal [facility] Comment on above: Performed By: #### P REGQNT #### [facility] [address] [place] [address] Dr. Venkat Sloan HDL NORMAL > or = 60 mg/dl - LO W CARDIOVASCULAR RISK <40 mg/dl - HIGH CARDIOVASCULAR RISK Normal [facility] Comment on above: Performed By: #### P REGQNT #### [facility] [address] [place] [address] Dr. Venkat Sloan LDL CALC NORMAL SEE BELOW Normal [facility] Comment on above: Result Comment: <100 mg/dl OPTIMAL 100 - 129 mg/dl NEAR OR ABOVE OPTIMAL 130 - 159 mg/dl BORDERLINE HIGH 160 - 189 mg/dl HIGH >190 mg/dl VERY HIGH Performed By: #### P REGQNT #### [facility] [address] [address] [address] Venkat Sloan Triglyceride [Mass/Vol] 48 mg/dL Normal <=150 [facility] Comment on above: Performed By: #### P REGQNT #### [facility] [address] [address] [address] Venkat Sloan VLDL CALC 9.6 mg/dL Normal [facility] Comment on above: Performed By: #### P REGQNT #### [facility] [address] [place] [address] Dr. Venkat Sloan PROF 14(COMP METB)on 022 Albumin [Mass/Vol] 4.0 g/dL Normal 3.4-5.0 [facility] Comment on above: Performed By: #### I NFLUAB #### [facility] [address] [address] [address] Venkat Sloan Albumin/Globulin [Mass ratio] 1.3 {ratio} Normal [facility] Comment on above: Performed By: #### I NFLUAB #### [facility] [address] [address] [address] Venkat Sloan ALP [Catalytic activity/Vol] 58 U/L Normal 46-116 [facility] Comment on above: Performed By: #### I NFLUAB #### [facility] [address] [address] [address] Venkat Sloan ALT [Catalytic activity/Vol] 20 U/L Normal 14-59 [facility] Comment on above: Performed By: #### I NFLUAB #### [facility] [address] [address] [address] Venkat Sloan Anion gap [Moles/Vol] 10.4 mmol/L Normal [facility] Comment on above: Performed By: #### I NFLUAB #### [facility] [address] [address] [address] Vnekat Sloan AST [Catalytic activity/Vol] 11 U/L Critically low 15-37 [facility] Comment on above: Performed By: #### I NFLUAB #### [facility] [address] [address] [address] Venkat Sloan Bilirubin [Mass/Vol] 0.8 mg/dL Normal 0.2-1.0 [facility] Comment on above: Performed By: #### I NFLUAB #### [facility] [address] [address] [address] Venkat Sloan Calcium [Mass/Vol] 9.0 mg/dL Normal 8.5-10.1 [facility] Comment on above: Performed By: #### I NFLUAB #### [facility] [address] [place] [address] Dr. Venkat Sloan Chloride [Moles/Vol] 106 mmol/L Normal 98-107 [facility] Comment on above: Performed By: #### I NFLUAB #### [facility] [address] [address] [address] Venkat Sloan CO2 [Moles/Vol] 27.0 mmol/L Normal 21.0-32.0 [facility] Comment on above: Performed By: #### I NFLUAB #### [facility] [address] [address] [address] Venkat Sloan Creatinine [Mass/Vol] 0.70 mg/dL Normal 0.55-1.02 [facility] Comment on above: Performed By: #### I NFLUAB #### [facility] [address] [address] [address] Venkat Sloan EGFR-AF PALESTINIAN >60 Normal >=60 [facility] Comment on above: Performed By: #### I NFLUAB #### [facility] [address] [address] [address] Venkat Sloan EGFR-NON AF PALESTINIAN >60 Normal >=60 [facility] Comment on above: Performed By: #### I NFLUAB #### [facility] [address] [address] [address] Venkat Sloan Globulin (S) [Mass/Vol] 3.2 g/dL Normal [facility] Comment on above: Performed By: #### I NFLUAB #### [facility] [address] [address] [address] Venkat Sloan Glucose [Mass/Vol] 92 mg/dL Normal 74-106 [facility] Comment on above: Performed By: #### I NFLUAB #### [facility] [address] [place] [address] Dr. Venkat Sloan Potassium [Moles/Vol] 4.4 mmol/L Normal 3.5-5.1 [facility] Comment on above: Performed By: #### I NFLUAB #### [facility] [address] [place] [address] Dr. Venkat Sloan Protein [Mass/Vol] 7.2 g/dL Normal 6.4-8.2 [facility] Comment on above: Performed By: #### I NFLUAB #### [facility] [address] [place] [address] Dr. Venkat Sloan Sodium [Moles/Vol] 139 mmol/L Normal 136-145 [facility] Comment on above: Performed By: #### I NFLUAB #### [facility] [address] [place] [address] Dr. Venkat Sloan Urea nitrogen [Mass/Vol] 13.0 mg/dL Normal 7.0-18.0 [facility] Comment on above: Performed By: #### I NFLUAB #### [facility] [address] [place] [address] Dr. Venkat Sloan Urea nitrogen/Creatinine [Mass ratio] 18.6 mg/mg Normal [facility] Comment on above: Performed By: #### I NFLUAB #### [facility] [address] [place] [address] Dr. Venkat Sloan TSHon 09-26-2021 TSH 1.318 uIU/mL Normal 0.358-3.740 [facility] Comment on above: Performed By: #### P REGQNT #### [facility] [address] [address] [address] Venkat Sloan URIC ACID SERUMon 09-26-2021 Urate [Mass/Vol] 3.9 mg/dL Normal 2.6-6.0 [facility] Comment on above: Performed By: #### P REGQNT #### [facility] [address] [place] [address] Dr. Venkat Sloan XR CSPINE MIN 4 VIEWSon 08-28 XR CSPINE MIN 4 VIEWS EXAMINATION: XR CSPINE MIN 4 VIEWS HISTORY: Cervical radiculopathy COMPARISON: No relevant comparison available. FINDINGS: BONES: Normal. No significant spondylosis, scoliosis, fracture, or visible bony lesion. DISC SPACES: Normal. No significant disc height narrowing, subluxation, or endplate abnormality. PARASPINOUS: Negative. No paraspinous abnormality is seen. OTHER: Negative. IMPRESSION: No acute disease. Electronically authenticated by: DUDLEY HERNÁNDEZ Date: 2021-09-24 21:16 Normal [facility] PREG QUANT HCGon 08-17-2021 HCG QUANT <1 Normal [facility] Comment on above: Performed By: #### I NFLUAB #### [facility] [address] [place] [address] Dr. Venkat Sloan HCG RANGE SEE BELOW Normal [facility] Comment on above: Result Comment: 5-50 0-1 WEEK 40-300 1-2 WEEKS 100-1,000 2-3 WEEKS 500-6,000 3-4 WEEKS 5,000-200,000 1-2 MONTHS 10,000-100,000 2-3 MONTHS 3,000-50,000 2ND TRIMESTER 1,000-50,000 3RD TRIMESTER Performed By: #### I NFLUAB #### [facility] [address] [place] [address] Dr. Venkat Sloan US PELVIS AND TRANSVAGon US PELVIS AND TRANSVAG EXAMINATION: US PELVIS AND TRANSVAG HISTORY: Cyst of right ovary COMPARISON: 06/13/2021 FINDINGS: The uterus is normal in size, contour and myometrial echotexture with no focal mass. Retroverted, retroflexed. The uterus measures 7.7 x 4.5 x 5.7 cm. Endometrium measures 8 mm, normal. Identified along the anterior endometrium is an area of anechoic echogenicity measuring 4 mm The right ovary is normal in appearance measuring 2.4 x 1.2 x 1.5 cm. Normal color and Doppler flow. Normal subcentimeter follicles. The left ovary is normal in appearance measuring 3.9 x 2.2 x 2.6 cm. Normal color and Doppler flow. Normal subcentimeter follicles. Moderate amount of free pelvic fluid. IMPRESSION: 4 mm anechoic echogenicity anterior endometrium, early intrauterine gestation versus cyst. Correlation with quantitative beta hCG is recommended Interval resolution of previously identified right ovarian cyst Electronically authenticated by: DUDLEY HERNÁNDEZ Date: 2021-08-17 07:01 Normal [facility] COVID Quick Testingon 2020 Result Negative [facility] Other Vital Signs Date Time Vital Sign Value Performing Clinician Facility 01-27-2021 18:45-0400 Body height 154.94 cm Mohini Juan Other [facility] Other 01-27-2021 18:45-0400 Body mass index (BMI) [Ratio] 28.34 kg/m2 Mohini Juan Other [facility] Other 01-27-2021 18:45-0400 Body temperature 96.4 [degF] Mohini Juan Other [facility] Other 01-27-2021 18:45-0400 Body weight 68.04 kg Mohini Juan Other [facility] Other 01-27-2021 18:45-0400 Respiratory rate 18 /min Mohini Juan Other [facility] Other 01-27-2021 18:45-0400 SaO2% (BldA) [Mass fraction] 99 % Mohini Juan Other [facility] Other 12-22-2020 11:45-0400 Body height 154.94 cm Dudley Freeman Other [facility] Other 12-22-2020 11:45-0400 Body mass index (BMI) [Ratio] 28.34 kg/m2 Dudley Freeman Other [facility] Other 12-22-2020 11:45-0400 Body weight 68.04 kg Dudley Freeman Other [facility] Other Encounters Encounter Date Encounter Type Care Provider Facility Start: 02-10-2023 End: 02-10-2023 ambulatory RICARDO RODRIGUEZ Not Available Start: 07-09-2022 Encounter for other preprocedural examination DR RICARDO RODRIGUEZ . [facility] Start: 07-08-2022 End: 07-08-[address] RICARDO RODRIGUEZ . Facility[facility] Start: 06-30-2022 End: 07-01-[address] RICARDO RODRIGUEZ . Facility[facility] Start: 06-30-2022 End: 07-01-2022 Encounter for other preprocedural examination DR RICARDO RODRIGUEZ . Facility[facility] Start: 06-21-2022 End: 06-22-[address] RICARDO RODRIGUEZ . Facility[facility] Start: 05-31-2022 End: 06-01-[address] IRON AVILA . Facility:[facility] Start: 05-20-2022 End: 05-21-[address] RICARDO RODRIGUEZ . Facility:[facility] Start: 05-04-2022 End: 05-04-[address] RICARDO RODRIGUEZ . Facility:[facility] Start: 05-04-2022 End: 05-05-[address] IRON AVILA . Facility:[facility] Start: 04-23-2022 End: 04-24-[address] RICARDO RODRIGUEZ . Facility:[facility] Start: 04-02-2022 End: 01-06-[address] IRON AVILA . Facility:[facility] Start: 04-01-2022 End: 04-01-[address] IRON AVILA . Facility:[facility] Start: 03-24-2022 End: 03-25-2022 ambulatory JAMIL REEVES Facility:[facility] Start: 03-15-2022 End: 03-15-[address] IRON AVILA . Facility:[facility] Start: 03-12-2022 End: 03-12-[address] IRON AVILA . Facility:[facility] Start: 02-17-2022 End: 02-18-[address] RICARDO RODRIGUEZ . Facility:[facility] Start: 02-10-2022 End: 02-10-[address] IRON AVILA . Facility:[facility] Start: 02-03-2022 End: 02-03-[address] IRON AVILA . Facility:[facility] Start: 02-01-[address] RICARDO RODRIGUEZ . Facili ty:[facility] Start: 01-13-2022 End: 01-14-[address] RICARDO RODRIGUEZ . Facility:[facility] Start: 01-12-2022 End: 01-12-[address] IRON AVILA . Facility:[facility] Start: 12-24-2021 End: 12-25-[address] IRON AVILA . Facility:[facility] Start: 11-21-2021 End: 11-22-[address] RICARDO RODRIGUEZ . Facility:[facility] Start: 10-02-2021 Encounter for genera l adult medical examination without abnormal findings DR IRON AVILA . [facility] Start: 09-26-2021 End: 09-27-[address] IRON AVILA . Facility:[facility] Start: 09-26-2021 End: 09-27-2021 Encounter for general adult medical examination without abnormal findings DR IRON AVILA . Facility:[facility] Start: 09-24-2021 End: 09-25-[address] IRON AVILA . Facility:[facility] Start: 08-17-2021 End: 08-18-[address] RICARDO RODRIGUEZ . Facility:[facility] Start: 08-15-2021 End: 08-16-[address] RICARDO RODRIGUEZ . Facility:[facility] Start: 01-27-2021 End: 01-27-2021 ambulatory Mohini Martinez Other [facility] [employer] Other Start: 01-27-2021 Office outpatient vi sit 15 minutes Mohini Juan [facility] Start: 12-22-2020 Office outpatient ne w 45 minutes Dudley Freeman [facility] Payers Date Payer Category Payer Unknown [id number] 2.16.84 [id number] 1993 Unknown [id number] 2.16.84 0.1.562428.3.579.2.593 1993 Unknown [id number] 2.16.84 0.1.419153.3.579.2.593 1993 Unknown [id number] 2.16.84 0.1.361029.3.579.2.593 1993 Unknown [id number] 2.16.84 0.1.591935.3.579.2.593 1993 Unknown [id number] 2.16.84 0.1.794754.3.579.2.593 1993 Unknown [id number] 2.16.84 0.1.263158.3.579.2.593 1993 Unknown [id number] 2.16.84 0.1.438709.3.579.2.593 1993 Unknown [id number] 2.16.84 0.1.416628.3.579.2.593 1993 Unknown [id number] 2.16.84 0.1.312302.3.579.2.593 1993 Unknown [id number] 2.16.84 0.1.624588.3.579.2.593 1993 Unknown [id number] 2.16.84 0.1.082456.3.579.2.593 1993 Unknown [id number] 2.16.84 0.1.580690.3.579.2.593 1993 Unknown [id number] 2.16.84 0.1.542711.3.579.2.593 1993 Unknown [id number] 2.16.84 0.1.867738.3.579.2.593 1993 Unknown [id number] 2.16.84 0.1.965192.3.579.2.593 1993 Unknown [id number] 2.16.84 0.1.363141.3.579.2.593 1993 Unknown [id number] 2.16.84 0.1.504045.3.579.2.593 1993 Unknown [id number] 2.16.84 0.1.560063.3.579.2.593 1993 Unknown [id number] 2.16.84 0.1.472706.3.579.2.593 1993 Unknown [id number] 2.16.84 0.1.531660.3.579.2.593 1993 Unknown [id number] 2.16.84 0.1.592290.3.579.2.593 1993 Unknown [id number] 2.16.84 0.1.148755.3.579.2.593 1993 Unknown [id number] 2.16.84 0.1.930347.3.579.2.593 1993 Unknown [id number] 2.16.84 0.1.205107.3.579.2.593 1993 Unknown [id number] 2.16.840 .1.540414.3.579.2.1259 1959 Unknown [id number] 1959 Unknown [id number] Unknown [id number] 2.16. 840.1.032939.19 Social History Date Type Detail Facility Unknown if ever smoked [facility] Other Sex Assigned At Sex Assigned At Bir th [facility] Other Clinical Note 07-08-2022 Note Date & Type Note Facility 07-08-2022 Note OPERATIVE NOTE OPERATION DATE: 07/08/2022 PROCEDURE: Diagnostic laparoscopy with fulguration of ovarian endometrial implant. PREOPERATIVE DIAGNOSIS: Pelvic pain. POSTOPERATIVE DIAGNOSIS: Pelvic pain. ANESTHESIA: General. SURGEON: Ricardo Rodriguez D.O. PRE SALES TECHNICAL CONSULTANT: DEVIN Miles URINE OUTPUT: Yellow and clear. BLOOD LOSS: 5 mL. FINDINGS: Normal appearing ovaries, uterus and tubes, except for right endometrial implant on the patient's right ovary. SPECIMEN: None. PROCEDURE: The patient was taken back to the Operating Room where she was placed in dorsal lithotomy position after given general anesthesia. The patient was prepped and draped in normal sterile fashion. A sponge stick was placed into the patient's vagina. Attention was turned to the patient's abdomen, where a small umbilical incision was made. The fascia was tented using Haleigh clamps and the fascia was entered sharply. Confirmation of intra-abdominal placement of the 10 mm port was confirmed under direct visualization using a laparoscope. The patient's abdomen was then insufflated using CO2 gas with approximately 4 liters. A second port was placed left laterally; this was done under direct visualization with a 5 mm port. Survey of the patient's abdomen demonstrated normal liver and gallbladder. Survey of the patient's pelvic anatomy demonstrated normal appearing ovaries and tubes as well as normal appearing uterus. No endometrial implants could be noted, no evidence of any pelvic disease was seen, normal appearing pelvic cavity. All instruments were removed from the patient's abdomen. The patient's abdomen was desufflated of CO2 gas. The patient tolerated the procedure well. Sponge stick was removed from the patient's vagina. The patient's infraumbilical fascia was closed using #0 Vicryl on a GI needle. The patient's skin was closed laterally and infraumbilically using 4-0 Vicryl. The patient tolerated the procedure well. Sponge, lap and needle counts were correct x 2. The patient was taken to Recovery Room in stable condition. [facility] Evaluation note 12-22-2020 Note Date & Type Note Facility 12-22-2020 Evaluation note Encounter Date Diagnosis Assessment Notes Nov, Irritable bowel syndrome with both constipation and diarrhea (ICD-10 - K58.2) LABS INDICATED ABOVE START TRIAL OF DICYCLOMINE 20 BID RTO 4 WEEKS [facility] [employer] Other Evaluation note Note Date & Type Note Facility Evaluation note [facility] [employer] Other History general Narrative - Reported Note Date & Type Note Facility History general Narrative - Reported Type Medical History anxiety/depression Medical History IBS Surgical History TONSILLECTOMY [facility] [employer] Other History general Narrative - Reported Note Date & Type Note Facility History general Narrative - Reported [facility] [employer] Other Summary Purpose Family History No Family History Records FoundNo Family History Records Found Advance Directives No Advanced Directives Records FoundNo Advanced Directives Records Found Additional Source Comments REASON FOR VISIT (unrecogniz ed section and content) PATIENT COMPLAINING OF IBS W ITH BOTH CONSTIPATION AND DIARRHEA INFORMATION SOURCE (unrecogn ized section and content) DATE CREATED AUTHOR 07/13/2022 [facility] pital DATE CREATED AUTHOR AUTHOR'S ORGANIZ ATION 02/12/2023 [facility] EPIC FOR RECORDS PERTAINING TO PATIENTS WHO ARE OR HAVE BEEN ENROLLED IN A CHEMICAL DEPENDENCY/SUBSTANCEABUSE PROGRAM, SOME INFORMATION MAY BE OMITTED. This clinical summary was aggregated from multiple sources. Caution should be exercised in using it in the provision of clinical care. This summary normalizes information from multiple sources, and as a consequence, information in this document may materially change the coding, format and clinical context of patient data. In addition, data may be omitted in some cases. CLINICAL DECISIONS SHOULD BE BASED ON THE PRIMARY CLINICAL RECORDS. [facility] [employer] provides no warranty or guarantee of the accuracy or completeness of information in this document.
--- NOTE | 2023-03-31 19:30 | US_ITS ---
[address] [address] Patient Name: ESTER BRADFORD MRN: [facility]:[id number] date: 1995 Sex: F Assigned Patient Location: US Current Patient Location: Accession/Order Number: [id number] Exam Date: 03/31/2023 19:37 Report Date: 04/01/2023 07:16 At the request of: RICARDO LEGGETT Procedure: US OB anatomy EXAMINATION: US OB anatomy, US OB transvaginal HISTORY: SECOND TRIMESTER Z34.92 COMPARISON: No relevant comparison available. TECHNIQUE: Transabdominal sonographic examination was performed for obstetrical and evaluation. FINDINGS: Number: 1 Heart Rate: 148.4 bpm H.B. /min Amniotic Fluid Volume: Subjectively normal position: Variable lie and presentation Placental Location: Posterior, placental edge 5.1 cm from the internal os. Grade 0 Cervix Length: 4.6 cm, closed Normal anatomy: Lateral ventricles, cerebellum, posterior fossa, nose, lips, orbits, four-chamber heart, RVOT, LVOT, diaphragm, stomach, kidneys, abdominal cord insertion, bladder, umbilical arteries, three-vessel cord, spine, extremities BIOMETRY: BPD: 4.5 cm 19 weeks 4 days , 37% HC: 17.2 cm 19 weeks 6 days, 40% AC: 14.8 cm 20 weeks 1 days, 52% FL: 3.0 cm 19 weeks 2 days , 24% EFW:309.8 grams; 11 ounces, 38% FL/AC: 20.4 FL/BPD: 67.3 HC/AC: 1.2 GESTATIONAL AGE: Age by EDC: 19 weeks 6 days Age by current US: 19 weeks 5 days NITHYA by current US: 08/20/2023 NITHYA by EDC: 08/19/2023 US/US OB anatomy IMPRESSION: Normal anatomy scan Closed cervix measuring 4.6 cm in length *Reference: [employer] Practice Guideline for the performance of Obstetric Ultrasound Examinations, December 26, 2006. Electronically authenticated by: DUDLEY HERNÁNDEZ Date: 04/01/2023 07:16
--- NOTE | 2023-03-31 19:30 | US_ITS ---
[address] [address] Patient Name: ESTER BRADFORD MRN: [facility]:[id number] date: 1995 Sex: F Assigned Patient Location: US Current Patient Location: Accession/Order Number: [id number] Exam Date: 03/31/2023 19:37 Report Date: 04/01/2023 07:16 At the request of: RICARDO LEGGETT Procedure: US OB transvaginal EXAMINATION: US OB anatomy, US OB transvaginal HISTORY: SECOND TRIMESTER Z34.92 COMPARISON: No relevant comparison available. TECHNIQUE: Transabdominal sonographic examination was performed for obstetrical and evaluation. FINDINGS: Number: 1 Heart Rate: 148.4 bpm H.B. /min Amniotic Fluid Volume: Subjectively normal position: Variable lie and presentation Placental Location: Posterior, placental edge 5.1 cm from the internal os. Grade 0 Cervix Length: 4.6 cm, closed Normal anatomy: Lateral ventricles, cerebellum, posterior fossa, nose, lips, orbits, four-chamber heart, RVOT, LVOT, diaphragm, stomach, kidneys, abdominal cord insertion, bladder, umbilical arteries, three-vessel cord, spine, extremities BIOMETRY: BPD: 4.5 cm 19 weeks 4 days , 37% HC: 17.2 cm 19 weeks 6 days, 40% AC: 14.8 cm 20 weeks 1 days, 52% FL: 3.0 cm 19 weeks 2 days , 24% EFW:309.8 grams; 11 ounces, 38% FL/AC: 20.4 FL/BPD: 67.3 HC/AC: 1.2 GESTATIONAL AGE: Age by EDC: 19 weeks 6 days Age by current US: 19 weeks 5 days NITHYA by current US: 08/20/2023 NITHYA by EDC: 08/19/2023 US/US OB transvaginal IMPRESSION: Normal anatomy scan Closed cervix measuring 4.6 cm in length *Reference: [employer] Practice Guideline for the performance of Obstetric Ultrasound Examinations, December 26, 2006. Electronically authenticated by: DUDLEY HERNÁNDEZ Date: 04/01/2023 07:16
== END 2023-03-31 18:54 | disposition home or self-care (01) ==
PROVIDERS: PCP Family Medicine; Visit Provider Obstetrics & Gynecology
DX: Z34.92 Encounter for supervision of normal pregnancy, unspecified, second trimester (principal); Z3A.19 19 weeks gestation of pregnancy
CPT/HCPCS: 76805; 76817

== ENCOUNTER 2023-04-08 12:20 | Outpatient (REF) | payer BC, SELFPAY ==
--- OUTSIDE RECORDS SUMMARY | 2023-04-08 12:23 | XMS_ITS | CCD ---
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 Venkat Sloan Basophils/100 WBC (Bld) 0.5 % Normal 0.2-2.0 [facility] Comment on above: Performed By: #### R F #### [facility] [address] [place] [address] Dr. Venkat Sloan EO # 0.1 103/ul Normal 0.0-0.7 [facility] Comment on above: Performed By: #### R F #### [facility] [address] [place] [address] Dr. Venkat Sloan Eosinophils/100 WBC (Bld) 1.7 % Normal 0.9-7.0 [facility] Comment on above: Performed By: #### R F #### [facility] [address] [place] [address] Dr. Venkat Sloan Erythrocyte distribution width (RBC) [Ratio] 12.7 % Normal 11.0-15.0 [facility] Comment on above: Performed By: #### R F #### [facility] [address] [place] [address] Dr. Venkat Sloan Hematocrit (Bld) [Volume fraction] 40.4 % Normal 36.0-48.0 [facility] Comment on above: Performed By: #### R F #### [facility] [address] [place] [address] Dr. Venkat Sloan Hemoglobin (Bld) [Mass/Vol] 13.1 g/dL Normal 12.0-16.0 [facility] Comment on above: Performed By: #### R F #### [facility] [address] [place] [address] Dr. Venkat Sloan IG # 0.02 10e3/ul Normal 0.00-0.03 [facility] Comment on above: Performed By: #### R F #### [facility] [address] [place] [address] Dr. Venkat Sloan IG % 0.3 % Normal 0.0-0.5 [facility] Comment on above: Performed By: #### R F #### [facility] [address] [place] [address] Dr. Venkat Sloan LYMPH # 2.0 103/ul Normal 1.2-3.8 [facility] Comment on above: Performed By: #### R F #### [facility] [address] [place] [address] Dr. Venkat Sloan Lymphocytes/100 WBC (Bld) 26.2 % Normal 20.5-60.0 [facility] Comment on above: Performed By: #### R F #### [facility] [address] [place] [address] Dr. Venkat Sloan MANUAL DIFF REQ NO Normal [facility] Comment on above: Performed By: #### R F #### [facility] [address] [place] [address] Dr. Venkat Sloan MCH (RBC) [Entitic mass] 28.4 pg Normal 26.7-34.0 [facility] Comment on above: Performed By: #### R F #### [facility] [address] [place] [address] Dr. Venkat Sloan MCHC (RBC) [Mass/Vol] 32.4 g/dL Normal 29.9-35.2 [facility] Comment on above: Performed By: #### R F #### [facility] [address] [place] [address] Dr. Venkat Sloan MCV (RBC) [Entitic vol] 87.4 fL Normal 81.0-99.0 [facility] Comment on above: Performed By: #### R F #### [facility] [address] [place] [address] Dr. Venkat Sloan MONO # 0.7 103/ul Normal 0.3-0.8 [facility] Comment on above: Performed By: #### R F #### [facility] [address] [place] [address] Dr. Venkat Sloan Monocytes/100 WBC (Bld) 8.8 % Normal 1.7-12.0 [facility] Comment on above: Performed By: #### R F #### [facility] [address] [place] [address] Dr. Venkat Sloan NEUT # 4.8 103/ul Normal 1.4-6.5 [facility] Comment on above: Performed By: #### R F #### [facility] [address] [place] [address] Dr. Venkat Sloan Neutrophils/100 WBC (Bld) 62.5 % Normal 43.0-75.0 [facility] Comment on above: Performed By: #### R F #### [facility] [address] [place] [address] Dr. Venkat Sloan Platelet mean volume (Bld) [Entitic vol] 8.5 fL Critically low 9.5-13.5 [facility] Comment on above: Performed By: #### R F #### [facility] [address] [place] [address] Dr. Venkat Sloan PLT 331 103/ul Normal 150-450 [facility] Comment on above: Performed By: #### R F #### [facility] [address] [place] [address] Dr. Venkat Sloan RBC 4.62 106/ul Normal 4.20-5.40 [facility] Comment on above: Performed By: #### R F #### [facility] [address] [place] [address] Dr. Venkat Sloan WBC 7.7 103/ul Normal 4.0-11.0 [facility] Comment on above: Performed By: #### R F #### [facility] [address] [place] [address] Dr. Venkat Sloan PREG QUANT HCGon 07-08-2022 HCG QUANT <1 Normal [facility] Comment on above: Performed By: #### P REGQNT #### [facility] [address] [place] [address] Dr. Venkat Sloan HCG RANGE SEE BELOW Normal [facility] Comment on above: Result Comment: 5-50 0.2-1 WEEK 50-500 1-2 WEEKS 100-5,000 2-3 WEEKS 500-10,000 3-4 WEEKS 1,000-50,000 4-5 WEEKS 10,000-100,000 5-6 WEEKS 15,000-200,000 6-8 WEEKS 10,000-100,000 2-3 MONTHS Performed By: #### P REGQNT #### [facility] [address] [place] [address] Dr. Venkat Sloan PROGESTERONEon 06-23-2022 Progesterone 5.7 ng/mL Normal [facility] Comment on above: Result Comment: Foll icular phase 0.1 - 0.9 Luteal phase 1.8 - 23.9 Ovulation phase 0.1 - 12.0 First trimester 11.0 - 44.3 Second trimester 25.4 - 83.3 Third trimester 58.7 - 214.0 Postmenopausal 0.0 - 0.1 Performed By: #### T SH #### [facility] [address] [place] [address] Dr. Venkat Sloan PREG QUANT HCGon 05-31-2022 HCG QUANT 1 mIU/mL Normal [facility] Comment on above: Performed By: #### P REGQNT #### [facility] [address] [place] [address] Dr. Venkat Sloan HCG RANGE SEE BELOW Normal [facility] Comment on above: Result Comment: 5-50 0.2-1 WEEK 50-500 1-2 WEEKS 100-5,000 2-3 WEEKS 500-10,000 3-4 WEEKS 1,000-50,000 4-5 WEEKS 10,000-100,000 5-6 WEEKS 15,000-200,000 6-8 WEEKS 10,000-100,000 2-3 MONTHS Performed By: #### P REGQNT #### [facility] [address] [place] [address] Dr. Venkat Sloan PROGESTERONEon 05-21-2022 Progesterone 12.4 ng/mL Normal [facility] Comment on above: Result Comment: Foll icular phase 0.1 - 0.9 Luteal phase 1.8 - 23.9 Ovulation phase 0.1 - 12.0 First trimester 11.0 - 44.3 Second trimester 25.4 - 83.3 Third trimester 58.7 - 214.0 Postmenopausal 0.0 - 0.1 Performed By: #### I NFLUAB #### [facility] [address] [place] [address] Dr. Venkat Sloan MRI BRAIN WO W [...] by: LAM VELA Date: 2022-05-04 08:42 Normal [facility] PREG QUANT HCGon 05-04-2022 HCG QUANT <1 Normal [facility] Comment on above: Performed By: #### R F #### [facility] [address] [address] [address] Venkat Sloan HCG RANGE SEE BELOW Normal [facility] Comment on above: Result Comment: 5-50 0.2-1 WEEK 50-500 1-2 WEEKS 100-5,000 2-3 WEEKS 500-10,000 3-4 WEEKS 1,000-50,000 4-5 WEEKS 10,000-100,000 5-6 WEEKS 15,000-200,000 6-8 WEEKS 10,000-100,000 2-3 MONTHS Performed By: #### R F #### [facility] [address] [place] [address] Dr. Venkat Sloan XR HYSTEROSALPINGOGRAMon XR HYSTEROSALPINGOGRAM [...] LAM VELA Date: 2022-05-04 16:09 Normal [facility] PROGESTERONEon 04-24-2022 Progesterone 0.4 ng/mL Normal [facility] Comment on above: Result Comment: Foll icular phase 0.1 - 0.9 Luteal phase 1.8 - 23.9 Ovulation phase 0.1 - 12.0 First trimester 11.0 - 44.3 Second trimester 25.4 - 83.3 Third trimester 58.7 - 214.0 Postmenopausal 0.0 - 0.1 Performed By: #### I NFLUAB #### [facility] [address] [place] [address] Dr. Venkat Sloan CULTURE SPUTUMon 04-02-2022 CULTURE SPUTUM Culture Observations : NORMAL RESPIRATORY NATALEE. Normal [facility] Comment on above: Performed By: #### R F #### [facility] [address] [place] [address] Dr. Venkat Sloan SPUTUM GRAM STAINon 04-02-19 23 COMMENTS Normal [facility] Comment on above: Performed By: #### R F #### [facility] [address] [place] [address] Dr. Venkat Sloan DIPHTHEROIDS [facility] Comment on above: Performed By: #### R F #### [facility] [address] [place] [address] Dr. Venkat Sloan EPITHELIALS <25 Normal [facility] Comment on above: Performed By: #### R F #### [facility] [address] [place] [address] Dr. Venkat Sloan FUNGAL ELEMENTS Normal [facility] Comment on above: Performed By: #### R F #### [facility] [address] [place] [address] Dr. Venkat MORGAN NEG BACILLI RARE Normal [facility] Comment on above: Performed By: #### R F #### [facility] [address] [place] [address] Dr. Venkat MORGAN NEG DIPPLOCOCCI [facility] Comment on above: Performed By: #### R F #### [facility] [address] [place] [address] Dr. Venkat Sloan GRAM POS BACILLI [facility] Comment on above: Performed By: #### R F #### [facility] [address] [place] [address] Dr. Venkat Sloan GRAM POSITIVE COCCI RARE Normal [facility] Comment on above: Performed By: #### R F #### [facility] [address] [place] [address] Dr. Venkat Sloan WBC (Bld) [#/Vol] 10*3/uL Normal [facility] Comment on above: Performed By: #### R F #### [facility] [address] [place] [address] Dr. Venkat Sloan Covid-19 PCR ([facility])on SARS-CoV-2 (COVID-19) RNA SHIRIN+probe Ql (Unsp spec) Not detected Normal NOT DETECTED [facility] Comment on above: Result Comment: This test is not yet approved or cleared by the [place] FDA. When there are no FDA-approved or cleared tests available, and other criteria are met, FDA can make tests available under an emergency access mechanism called an Emergency Use Authorization (EUA). The EUA for this test is supported by the [employer] Rep[employer] Technician of Health and Human Service's (HHS's) declaration [...] SARS-CoV-2. Performed By: #### P REGQNT #### [facility] [address] [place] [address] Dr. Venkat Sloan INFLUENZA A AND B AGon 04-01 INFLUANEGH SEE BELOW Normal [facility] Comment on above: Result Comment: Nega tive for Flu A protein angiten. Infection due to Flu A cannot be ruled out. Flu A angiten in the sample may be below the detection limit of the test. Performed By: #### I NFLUAB #### [facility] [address] [place] [address] Dr. Venkat Sloan INFLUBNEGH SEE BELOW Normal [facility] Comment on above: Result Comment: Nega tive for Flu B protein antigen. Infection due to Flu B cannot be ruled out. Flu B antigen in the sample may be below the detection limit of the test. Performed By: #### I NFLUAB #### [facility] [address] [address] [address] Venkat Sloan INFLUENZA A AG Negative Normal NEGATIVE SEE COMMENT [facility] Comment on above: Performed By: #### I NFLUAB #### [facility] [address] [address] [address] Venkat Sloan INFLUENZA B AG Negative Normal NEGATIVE SEE COMMENT [facility] Comment on above: Performed By: #### I NFLUAB #### [facility] [address] [address] [address] Venkat Sloan XR CHEST 2 Von [...] [address] Date: 2022-03-24 12:33 Normal [facility] Covid-19 PCR ([facility])on 02-25 SARS-CoV-2 (COVID-19) RNA SHIRIN+probe Ql (Unsp spec) Not detected Normal NOT DETECTED [facility] Comment on above: Result Comment: When [...] for this test is supported by the [place] of Health and Human Service's declaration that [...] used). Performed By: #### R F #### [facility] [address] [place] [address] Dr. Venkat Sloan INFLUENZA A AND B AGon 03-15 [facility] SEE BELOW Normal [facility] Comment on above: Result Comment: Nega tive for Flu A protein angiten. Infection due to Flu A cannot be ruled out. Flu A angiten in the sample may be below the detection limit of the test. Performed By: #### I NFLUAB #### [facility] [address] [place] [address] Dr. Venkat Sloan INFLUBNEG SEE BELOW Normal [facility] Comment on above: Result Comment: Nega tive for Flu B protein antigen. Infection due to Flu B cannot be ruled out. Flu B antigen in the sample may be below the detection limit of the test. Performed By: #### I NFLUAB #### [facility] [address] [place] [address] Dr. Venkat Sloan INFLUENZA A AG Negative Normal NEGATIVE SEE COMMENT [facility] Comment on above: Performed By: #### I NFLUAB #### [facility] [address] [place] [address] Dr. Venkat Sloan INFLUENZA B AG Negative Normal NEGATIVE SEE COMMENT [facility] Comment on above: Performed By: #### I NFLUAB #### [facility] [address] [place] [address] Dr. Venkat Sloan INTERNAL CONTROLS Within Normal Limits Normal Wi thin Normal Limits [facility] Comment on above: Performed By: #### I NFLUAB #### [facility] [address] [place] [address] Dr. Venkat Sloan Covid-19 PCR ([facility])on 02-25 SARS-CoV-2 (COVID-19) RNA SHIRIN+probe Ql (Unsp spec) Not detected Normal NOT DETECTED [facility] Comment on above: Result Comment: When [...] for this test is supported by the Tool Repair Technician of Health and Human Service's declaration that [...] used). Performed By: #### I NFLUAB #### [facility] [address] [place] [address] Dr. Venkat Sloan INFLUENZA A AND B [facility] 03-12 [facility] SEE BELOW Normal [facility] Comment on above: Result Comment: Nega tive for Flu A protein angiten. Infection due to Flu A cannot be ruled out. Flu A angiten in the sample may be below the detection limit of the test. Performed By: #### I NFLUAB #### [facility] [address] [place] [address] Dr. Venkat [facility] Normal [facility] Comment on above: Result Comment: Nega tive for Flu B protein antigen. Infection due to Flu B cannot be ruled out. Flu B antigen in the sample may be below the detection limit of the test. Performed By: #### I NFLUAB #### [facility] [address] [place] [address] Dr. Venkat Sloan INFLUENZA A AG Negative Normal NEGATIVE SEE COMMENT [facility] Comment on above: Performed By: #### I NFLUAB #### [facility] [address] [place] [address] Dr. Venkat Sloan INFLUENZA B AG Negative Normal NEGATIVE SEE COMMENT [facility] Comment on above: Performed By: #### I NFLUAB #### [facility] [address] [place] [address] Dr. Venkat Sloan INTERNAL CONTROLS Within Normal Limits Normal Wi thin Normal Limits [facility] Comment on above: Performed By: #### I NFLUAB #### [facility] [address] [place], [place] [address] Dr. Venkat Sloan PROGESTERONEon 02-20-2022 Progesterone 0.3 ng/mL Normal [facility] Comment on above: Result Comment: Foll icular phase 0.1 - 0.9 Luteal phase 1.8 - 23.9 Ovulation phase 0.1 - 12.0 First trimester 11.0 - 44.3 Second trimester 25.4 - 83.3 Third trimester 58.7 - 214.0 Postmenopausal 0.0 - 0.1 Performed By: #### R F #### [facility] [address] [place], [place] [address] Dr. Venkat Sloan ACTH STIMULATIONon 2 Andros Baseline 49 ng/dL Normal 41-262 [facility] Comment on above: Performed By: #### R F #### [facility] [address] [place], [place] [address] Dr. Venkat Sloan Andros Stimulated 82 ng/dL Normal Not Estab. [facility] Comment on above: Performed By: #### R F #### [facility] [address] [place], [place] [address] Dr. Venkat Sloan Covid-19 PCR ([facility])on 01-26 SARS-CoV-2 (COVID-19) RNA SHIRIN+probe Ql (Unsp spec) Not detected Normal NOT DETECTED [facility] Comment on above: Result Comment: This test is not yet approved or cleared by the [place] FDA. When there are no FDA-approved or cleared tests available, and other criteria are met, FDA can make tests available under an emergency access mechanism called an Emergency Use Authorization (EUA). The EUA for this test is supported by the Tool Repair Technician of Health and Human Service's (HHS's) declaration [...] SARS-CoV-2. Performed By: #### I NFLUAB #### [facility] [address] [place] [address] Dr. Venkat Sloan INFLUENZA A AND B AGon 02-10 INFLUANE SEE BELOW Normal [facility] Comment on above: Result Comment: Nega tive for Flu A protein angiten. Infection due to Flu A cannot be ruled out. Flu A angiten in the sample may be below the detection limit of the test. Performed By: #### P REGQNT #### [facility] [address] [place] [address] Dr. Venkat Sloan INFLUBNEG SEE BELOW Normal [facility] Comment on above: Result Comment: Nega tive for Flu B protein antigen. Infection due to Flu B cannot be ruled out. Flu B antigen in the sample may be below the detection limit of the test. Performed By: #### P REGQNT #### [facility] [address] [place] [address] Dr. Venkat Sloan INFLUENZA A AG Negative Normal NEGATIVE SEE COMMENT [facility] Comment on above: Performed By: #### P REGQNT #### [facility] [address] [place] [address] Dr. Venkat Sloan INFLUENZA B AG Negative Normal NEGATIVE SEE COMMENT [facility] Comment on above: Performed By: #### P REGQNT #### [facility] [address] [place] [address] Dr. Venkat Sloan INTERNAL CONTROLS Within Normal Limits Normal Wi thin Normal Limits [facility] Comment on above: Performed By: #### P REGQNT #### [facility] [address] [place] [address] Dr. Venkat Sloan DHEA SERUMon 01-19-2022 Dehydroepiandrosterone (DHEA) 82 ng/dL Normal 31-701 [facility] Comment on above: Result Comment: Age [...] 89 Performed By: #### T SH #### [facility] [address] [place] [address] Dr. Venkat Sloan DHEA-SULFATEon 01-14-2022 DHEA-Sulfate 34.0 ug/dL Critically low 84.8-378.0 [facility] Comment on above: Performed By: #### R F #### [facility] [address] [place] [address] Dr. Venkat Sloan FSHon 01-14-2022 FSH 2.2 mIU/mL Normal [facility] Comment on above: Result Comment: Adul t Female: Follicular phase 3.5 - 12.5 Ovulation phase 4.7 - 21.5 Luteal phase 1.7 - 7.7 Postmenopausal 25.8 - 134.8 Performed By: #### L BCFSH #### [facility] [address] [place] [address] Dr. Venkat Sloan LUTEINIZING HORMONE (LH)on LH 5.1 mIU/mL Normal [facility] Comment on above: Result Comment: Adul t Female: Follicular phase 2.4 - 12.6 Ovulation phase 14.0 - 95.6 Luteal phase 1.0 - 11.4 Postmenopausal 7.7 - 58.5 Performed By: #### I NFLUAB #### [facility] [address] [place] [address] Dr. Venkat Sloan PROLACTINon 01-14-2022 Prolactin 8.0 ng/mL Normal 4.8-23.3 [facility] Comment on above: Performed By: #### P ROLAC #### [facility] [address] [place] [address] Dr. Venkat Sloan CBC AUTO DIFFon 01-13-2022 BASO # 0.0 103/ul Normal 0.0-0.1 [facility] Comment on above: Performed By: #### T SH #### [facility] [address] [place] [address] Dr. Venkat Sloan Basophils/100 WBC (Bld) 0.4 % Normal 0.2-2.0 [facility] Comment on above: Performed By: #### T SH #### [facility] [address] [place] [address] Dr. Venkat Sloan EO # 0.1 103/ul Normal 0.0-0.7 [facility] Comment on above: Performed By: #### T SH #### [facility] [address] [place] [address] Dr. Venkat Sloan Eosinophils/100 WBC (Bld) 1.2 % Normal 0.9-7.0 [facility] Comment on above: Performed By: #### T SH #### [facility] [address] [place] [address] Dr. Venkat Sloan Erythrocyte distribution width (RBC) [Ratio] 12.7 % Normal 11.0-15.0 [facility] Comment on above: Performed By: #### T SH #### [facility] [address] [place] [address] Dr. Venkat Sloan Hematocrit (Bld) [Volume fraction] 41.1 % Normal 36.0-48.0 [facility] Comment on above: Performed By: #### T SH #### [facility] [address] [place] [address] Dr. Venkat Sloan Hemoglobin (Bld) [Mass/Vol] 13.1 g/dL Normal 12.0-16.0 [facility] Comment on above: Performed By: #### T SH #### [facility] [address] [place] [address] Dr. Venkat Sloan IG # 0.03 10e3/ul Normal 0.00-0.03 [facility] Comment on above: Performed By: #### T SH #### [facility] [address] [place] [address] Dr. Venkat Sloan IG % 0.3 % Normal 0.0-0.5 [facility] Comment on above: Performed By: #### T SH #### [facility] [address] [place] [address] Dr. Venkat Sloan LYMPH # 1.6 103/ul Normal 1.2-3.8 [facility] Comment on above: Performed By: #### T SH #### [facility] [address] [place] [address] Dr. Venkat Sloan Lymphocytes/100 WBC (Bld) 15.0 % Critically low 20.5-60.0 [facility] Comment on above: Performed By: #### T SH #### [facility] [address] [place] [address] Dr. Venkat Sloan MANUAL DIFF REQ NO Normal [facility] Comment on above: Performed By: #### T SH #### [facility] [address] [place] [address] Dr. Venkat Sloan MCH (RBC) [Entitic mass] 28.5 pg Normal 26.7-34.0 [facility] Comment on above: Performed By: #### T SH #### [facility] [address] [place] [address] Dr. Venkat Sloan MCHC (RBC) [Mass/Vol] 31.9 g/dL Normal 29.9-35.2 [facility] Comment on above: Performed By: #### T SH #### [facility] [address] [place] [address] Dr. Venkat Sloan MCV (RBC) [Entitic vol] 89.3 fL Normal 81.0-99.0 [facility] Comment on above: Performed By: #### T SH #### [facility] [address] [place] [address] Dr. Venkat Sloan MONO # 0.9 103/ul Critically high 0.3-0.8 [facility] Comment on above: Performed By: #### T SH #### [facility] [address] [place] [address] Dr. Venkat Sloan Monocytes/100 WBC (Bld) 8.8 % Normal 1.7-12.0 [facility] Comment on above: Performed By: #### T SH #### [facility] [address] [place] [address] Dr. Venkat Sloan NEUT # 7.9 103/ul Critically high 1.4-6.5 [facility] Comment on above: Performed By: #### T SH #### [facility] [address] [address] [address] Venkat Sloan Neutrophils/100 WBC (Bld) 74.3 % Normal 43.0-75.0 [facility] Comment on above: Performed By: #### T SH #### [facility] [address] [address] [address] Venkat Sloan Platelet mean volume (Bld) [Entitic vol] 9.2 fL Critically low 9.5-13.5 [facility] Comment on above: Performed By: #### T SH #### [facility] [address] [address] [address] Venkat Sloan PLT 300 103/ul Normal 150-450 [facility] Comment on above: Performed By: #### T SH #### [facility] [address] [place] [address] Dr. Venkat Sloan RBC 4.60 106/ul Normal 4.20-5.40 [facility] Comment on above: Performed By: #### T SH #### [facility] [address] [place] [address] Dr. Venkat Sloan WBC 10.7 103/ul Normal 4.0-11.0 [facility] Comment on above: Performed By: #### T SH #### [facility] [address] [place] [address] Dr. Venkat Sloan GLYCOHEMOGLOBIN A1Con 2021 ADA RECOMMENDATION SEE BELOW Normal [facility] Comment on above: Result Comment: ADA RECOMMENDED LIMIT 4.0 - 6.0 ADA THERAPEUTIC TARGET < 7.0 ACTION SUGGESTED > 7.0 Performed By: #### P REGQNT #### [facility] [address] [place] [address] Dr. Venkat Sloan Glucose [Mass/Vol] 100 mg/dL Normal [facility] Comment on above: Performed By: #### P REGQNT #### [facility] [address] [place] [address] Dr. Venkat Sloan HbA1c (Bld) [Mass fraction] 5.1 % Normal 4.5-6.2 [facility] Comment on above: Performed By: #### P REGQNT #### [facility] [address] [address] [address] Venkat Sloan TSHon 01-13-2022 TSH 1.098 uIU/mL Normal 0.358-3.740 [facility] Comment on above: Performed By: #### T SH #### [facility] [address] [address] [address] Venkat Sloan Covid-19 PCR ([facility])on 12-26 SARS-CoV-2 (COVID-19) RNA SHIRIN+probe Ql (Unsp spec) Not detected Normal NOT DETECTED [facility] Comment on above: Result Comment: This test is not yet approved or cleared by the [place] FDA. When there are no FDA-approved or cleared tests available, and other criteria are met, FDA can make tests available under an emergency access mechanism called an Emergency Use Authorization (EUA). The EUA for this test is supported by the Tool Repair Technician of Health and Human Service's (HHS's) declaration [...] SARS-CoV-2. Performed By: #### I NFLUAB #### [facility] [address] [place], [place] [address] Dr. Venkat Sloan PREG QUANT HCGon 12-24-2021 HCG QUANT <1 Normal [facility] Comment on above: Performed By: #### P REGQNT #### [facility] [address] [place] [address] Dr. Venkat Sloan HCG RANGE SEE BELOW Normal [facility] Comment on above: Result Comment: 5-50 0.2-1 WEEK 50-500 1-2 WEEKS 100-5,000 2-3 WEEKS 500-10,000 3-4 WEEKS 1,000-50,000 4-5 WEEKS 10,000-100,000 5-6 WEEKS 15,000-200,000 6-8 WEEKS 10,000-100,000 2-3 MONTHS Performed By: #### P REGQNT #### [facility] [address] [address] [address] Venkat Sloan HCG-BETA SUBUNIT QUANTon hCG,Beta Subunit,Qnt,Serum <1 Normal [facility] Comment on above: Result Comment: Fema le (Non-) 0 - 5 (Postmenopausal) 0 - 8 . Female () Weeks of Gestation 3 6 - 71 4 10 - 750 5 279 - 9962 6 925 - 26820 7 [phone] 8 [phone] 9 35328 -[phone] 10 12239 -806852 12 18607 -[phone] 14 59603 - 13553 15 42514 - 10387 16 4837 - 92287 17 4032 - 16890 18 5239 - [phone] CardiOx ECLIA methodology Performed By: #### T SH #### [facility] [address] [place] [address] Dr. Venkat Sloan BRETT by IFAon 09-29-2021 Antinuclear Antibodies, IFA Negative Normal [facility] Comment on above: Result Comment: Nega tive <1:80 Borderline 1:80 Positive >1:80 ICAP nomenclature: AC-0 For more information about Hep-2 cell patterns use ANApatterns.org, the official website for the International Consensus on Antinuclear Antibody (BRETT) Patterns (ICAP). Performed By: #### A NAIFA #### [facility] [address] [place] [address] Dr. Venkat Sloan INSULINon 09-29-2021 Insulin 11.1 uIU/mL Normal 2.6-24.9 [facility] Comment on above: Performed By: #### T SH #### [facility] [address] [place] [address] Dr. Venkat Sloan ANTISTREPTOLYSIN O AB (ASO)o n 09-27-2021 Antistreptolysin O Ab <20.0 Normal 0.0-200.0 [facility] Comment on above: Performed By: #### P REGQNT #### [facility] [address] [place] [address] Dr. Venkat Sloan RHEUMATOID FACTORon 09-28-19 RA Latex Turbid. <10.0 Normal <14.0 [facility] Comment on above: Performed By: #### R F #### [facility] [address] [place] [address] Dr. Venkat Sloan CBC AUTO DIFFon 09-26-2021 BASO # 0.0 103/ul Normal 0.0-0.1 [facility] Comment on above: Performed By: #### T SH #### [facility] [address] [place] [address] Dr. Venkat Sloan Basophils/100 WBC (Bld) 0.3 % Normal 0.2-2.0 [facility] Comment on above: Performed By: #### T SH #### [facility] [address] [place] [address] Dr. Venkat Sloan EO # 0.1 103/ul Normal 0.0-0.7 [facility] Comment on above: Performed By: #### T SH #### [facility] [address] [place] [address] Dr. Venkat Sloan Eosinophils/100 WBC (Bld) 1.8 % Normal 0.9-7.0 [facility] Comment on above: Performed By: #### T SH #### [facility] [address] [place] [address] Dr. Venkat Sloan Erythrocyte distribution width (RBC) [Ratio] 12.9 % Normal 11.0-15.0 [facility] Comment on above: Performed By: #### T SH #### [facility] [address] [place] [address] Dr. Venkat Sloan Hematocrit (Bld) [Volume fraction] 39.8 % Normal 36.0-48.0 [facility] Comment on above: Performed By: #### T SH #### [facility] [address] [place] [address] Dr. Venkat Sloan Hemoglobin (Bld) [Mass/Vol] 12.7 g/dL Normal 12.0-16.0 [facility] Comment on above: Performed By: #### T SH #### [facility] [address] [place] [address] Dr. Venkat Sloan IG # 0.02 10e3/ul Normal 0.00-0.03 [facility] Comment on above: Performed By: #### T SH #### [facility] [address] [place] [address] Dr. Venkat Sloan IG % 0.3 % Normal 0.0-0.5 [facility] Comment on above: Performed By: #### T SH #### [facility] [address] [place] [address] Dr. Venkat Sloan LYMPH # 1.5 103/ul Normal 1.2-3.8 [facility] Comment on above: Performed By: #### T SH #### [facility] [address] [place] [address] Dr. Venkat Sloan Lymphocytes/100 WBC (Bld) 21.5 % Normal 20.5-60.0 [facility] Comment on above: Performed By: #### T SH #### [facility] [address] [place] [address] Dr. Venkat Sloan MANUAL DIFF REQ NO Normal [facility] Comment on above: Performed By: #### T SH #### [facility] [address] [place] [address] Dr. Venkat Sloan MCH (RBC) [Entitic mass] 28.5 pg Normal 26.7-34.0 [facility] Comment on above: Performed By: #### T SH #### [facility] [address] [place] [address] Dr. Venkat Sloan MCHC (RBC) [Mass/Vol] 31.9 g/dL Normal 29.9-35.2 [facility] Comment on above: Performed By: #### T SH #### [facility] [address] [place] [address] Dr. Venkat Sloan MCV (RBC) [Entitic vol] 89.2 fL Normal 81.0-99.0 [facility] Comment on above: Performed By: #### T SH #### [facility] [address] [place] [address] Dr. Venkat Sloan MONO # 0.5 103/ul Normal 0.3-0.8 [facility] Comment on above: Performed By: #### T SH #### [facility] [address] [place] [address] Dr. Venkat Sloan Monocytes/100 WBC (Bld) 7.6 % Normal 1.7-12.0 [facility] Comment on above: Performed By: #### T SH #### [facility] [address] [place] [address] Dr. Venkat Sloan NEUT # 4.9 103/ul Normal 1.4-6.5 [facility] Comment on above: Performed By: #### T SH #### [facility] [address] [place] [address] Dr. Venkat Sloan Neutrophils/100 WBC (Bld) 68.5 % Normal 43.0-75.0 [facility] Comment on above: Performed By: #### T SH #### [facility] [address] [place] [address] Dr. Venkat Sloan Platelet mean volume (Bld) [Entitic vol] 8.8 fL Critically low 9.5-13.5 [facility] Comment on above: Performed By: #### T SH #### [facility] [address] [place] [address] Dr. Venkat Sloan PLT 297 103/ul Normal 150-450 [facility] Comment on above: Performed By: #### T SH #### [facility] [address] [place] [address] Dr. Venkat Sloan RBC 4.46 106/ul Normal 4.20-5.40 [facility] Comment on above: Performed By: #### T SH #### [facility] [address] [place] [address] Dr. Venkat Sloan WBC 7.1 103/ul Normal 4.0-11.0 [facility] Comment on above: Performed By: #### T SH #### [facility] [address] [address] [address] Venkat Sloan CRPon 09-26-2021 CRP [Mass/Vol] mg/L Normal <=1.0 [facility] Comment on above: Performed By: #### P REGQNT #### [facility] [address] [place] [address] Dr. Venkat Sloan FREE THYROXINE INDEX T7on FTI 2.71 Normal 1.30-4.50 [facility] Comment on above: Performed By: #### P REGQNT #### [facility] [address] [place] [address] Dr. Venkat Sloan T3U 33.0 % Normal 30.0-39.0 [facility] Comment on above: Performed By: #### P REGQNT #### [facility] [address] [place] [address] Dr. Venkat Sloan T4 [Mass/Vol] 8.20 ug/dL Normal 4.80-13.90 [facility] Comment on above: Performed By: #### P REGQNT #### [facility] [address] [place] [address] Dr. Venkat Sloan GLYCOHEMOGLOBIN A1Con 2021 ADA RECOMMENDATION SEE BELOW Normal [facility] Comment on above: Result Comment: ADA RECOMMENDED LIMIT 4.0 - 6.0 ADA THERAPEUTIC TARGET < 7.0 ACTION SUGGESTED > 7.0 Performed By: #### I NFLUAB #### [facility] [address] [place] [address] Dr. Venkat Sloan Glucose [Mass/Vol] 105 mg/dL Normal [facility] Comment on above: Performed By: #### I NFLUAB #### [facility] [address] [place] [address] Dr. Venkat Sloan HbA1c (Bld) [Mass fraction] 5.3 % Normal 4.5-6.2 [facility] Comment on above: Performed By: #### I NFLUAB #### [facility] [address] [place], [place] [id number] Dr. Venkat Sloan IRONon 09-26-2021 Iron [Mass/Vol] 49.0 ug/dL Critically low 50.0-170.0 [facility] Comment on above: Performed By: #### P REGQNT #### [facility] [address] [place] [address] Dr. Venkat Sloan LIPID PROFILEon 09-26-2021 CHOL-HDL RATIO NORM SEE BELOW Normal [facility] Comment on above: Result Comment: 3.3 - 4.4 LOW RISK 4.4 - 7.1 AVERAGE RISK 7.1 - 11.0 MODERATE RISK >11.0 HIGH RISK Performed By: #### P REGQNT #### [facility] [address] [place] [address] Dr. Venkat Sloan Cholesterol [Mass/Vol] 197 mg/dL Normal <=200 Th [facility] Comment on above: Performed By: #### P REGQNT #### [facility] [address] [place] [address] Dr. Venkat Sloan Cholesterol in HDL [Mass/Vol] 64 mg/dL Critically high 40-60 [facility] Comment on above: Performed By: #### P REGQNT #### [facility] [address] [place] [address] Dr. Venkat Sloan Cholesterol in LDL [Mass/Vol] 123.4 mg/dL Normal [facility] Comment on above: Performed By: #### P REGQNT #### [facility] [address] [address] [address] Venkat Sloan Cholesterol.total/Choles terol in HDL [Mass ratio] 3.1 {ratio} Normal [facility] Comment on above: Performed By: #### P REGQNT #### [facility] [address] [place] [address] Dr. Venkat Sloan HDL NORMAL > or = 60 mg/dl - LO W CARDIOVASCULAR RISK <40 mg/dl - HIGH CARDIOVASCULAR RISK Normal [facility] Comment on above: Performed By: #### P REGQNT #### [facility] [address] [place] [address] Dr. Venkat Sloan LDL CALC NORMAL SEE BELOW Normal [facility] Comment on above: Result Comment: <100 mg/dl OPTIMAL 100 - 129 mg/dl NEAR OR ABOVE OPTIMAL 130 - 159 mg/dl BORDERLINE HIGH 160 - 189 mg/dl HIGH >190 mg/dl VERY HIGH Performed By: #### P REGQNT #### [facility] [address] [address] [address] Venkat Sloan Triglyceride [Mass/Vol] 48 mg/dL Normal <=150 T [facility] Comment on above: Performed By: #### P REGQNT #### [facility] [address] [address] [address] Venkat Sloan VLDL CALC 9.6 mg/dL Normal [facility] Comment on above: Performed By: #### P REGQNT #### [facility] [address] [place] [address] Dr. Venkat Sloan PROF 14(COMP METB)on 022 Albumin [Mass/Vol] 4.0 g/dL Normal 3.4-5.0 [facility] Comment on above: Performed By: #### I NFLUAB #### [facility] [address] [address] [address] Venkat Sloan Albumin/Globulin [Mass ratio] 1.3 {ratio} Normal [facility] Comment on above: Performed By: #### I NFLUAB #### [facility] [address] [address] [address] Venkat Sloan ALP [Catalytic activity/Vol] 58 U/L Normal 46-116 [facility] Comment on above: Performed By: #### I NFLUAB #### [facility] [address] [address] [address] Venkat Sloan ALT [Catalytic activity/Vol] 20 U/L Normal 14-59 [facility] Comment on above: Performed By: #### I NFLUAB #### [facility] [address] [address] [address] Venkat Sloan Anion gap [Moles/Vol] 10.4 mmol/L Normal [facility] Comment on above: Performed By: #### I NFLUAB #### [facility] [address] [address] [address] Venkat Sloan AST [Catalytic activity/Vol] 11 U/L Critically low 15-37 [facility] Comment on above: Performed By: #### I NFLUAB #### [facility] [address] [address] [address] Venkat Sloan Bilirubin [Mass/Vol] 0.8 mg/dL Normal 0.2-1.0 [facility] Comment on above: Performed By: #### I NFLUAB #### [facility] [address] [address] [address] Venkat Sloan Calcium [Mass/Vol] 9.0 mg/dL Normal 8.5-10.1 [facility] Comment on above: Performed By: #### I NFLUAB #### [facility] [address] [place] [address] Dr. Venkat Sloan Chloride [Moles/Vol] 106 mmol/L Normal 98-107 [facility] Comment on above: Performed By: #### I NFLUAB #### [facility] [address] [address] [address] Venkat Sloan CO2 [Moles/Vol] 27.0 mmol/L Normal 21.0-32.0 [facility] Comment on above: Performed By: #### I NFLUAB #### [facility] [address] [address] [address] Venkat Sloan Creatinine [Mass/Vol] 0.70 mg/dL Normal 0.55-1.02 [facility] Comment on above: Performed By: #### I NFLUAB #### [facility] [address] [address] [address] Venkat Sloan EGFR-AF MEXICAN >60 Normal >=60 [facility] Comment on above: Performed By: #### I NFLUAB #### [facility] [address] [address] [address] Venkat Sloan EGFR-NON AF MEXICAN >60 Normal >=60 [facility] Comment on above: Performed By: #### I NFLUAB #### [facility] [address] [address] [address] Venkat Sloan Globulin (S) [Mass/Vol] 3.2 g/dL Normal [facility] Comment on above: Performed By: #### I NFLUAB #### [facility] [address] [address] [address] Venkat Sloan Glucose [Mass/Vol] 92 mg/dL Normal 74-106 [facility] Comment on above: Performed By: #### I NFLUAB #### [facility] [address] [place] [address] Dr. Venkat Sloan Potassium [Moles/Vol] 4.4 mmol/L Normal 3.5-5.1 [facility] Comment on above: Performed By: #### I NFLUAB #### [facility] [address] [place] [address] Dr. Venkat Sloan Protein [Mass/Vol] 7.2 g/dL Normal 6.4-8.2 [facility] Comment on above: Performed By: #### I NFLUAB #### [facility] [address] [place] [address] Dr. Venkat Sloan Sodium [Moles/Vol] 139 mmol/L Normal 136-145 [facility] Comment on above: Performed By: #### I NFLUAB #### [facility] [address] [place] [address] Dr. Venkat Sloan Urea nitrogen [Mass/Vol] 13.0 mg/dL Normal 7.0-18.0 [facility] Comment on above: Performed By: #### I NFLUAB #### [facility] [address] [place] [address] Dr. Venkat Sloan Urea nitrogen/Creatinine [Mass ratio] 18.6 mg/mg Normal [facility] Comment on above: Performed By: #### I NFLUAB #### [facility] [address] [place] [address] Dr. Venkat Sloan TSHon 09-26-2021 TSH 1.318 uIU/mL Normal 0.358-3.740 [facility] Comment on above: Performed By: #### P REGQNT #### [facility] [address] [address] [address] Venkat Sloan URIC ACID SERUMon 09-26-2021 Urate [Mass/Vol] 3.9 mg/dL Normal 2.6-6.0 [facility] Comment on above: Performed By: #### P REGQNT #### [facility] [address] [place] [address] Dr. Venkat Sloan XR CSPINE MIN 4 [...] DUDLEY HERNÁNDEZ Date: 2021-09-24 21:16 Normal [facility] PREG QUANT HCGon 08-17-2021 HCG QUANT <1 Normal [facility] Comment on above: Performed By: #### I NFLUAB #### [facility] [address] [place] [address] Dr. Venkat Sloan HCG RANGE SEE BELOW Normal [facility] Comment on above: Result Comment: 5-50 0-1 WEEK 40-300 1-2 WEEKS 100-1,000 2-3 WEEKS 500-6,000 3-4 WEEKS 5,000-200,000 1-2 MONTHS 10,000-100,000 2-3 MONTHS 3,000-50,000 2ND TRIMESTER 1,000-50,000 3RD TRIMESTER Performed By: #### I NFLUAB #### [facility] [address] [place] [address] Dr. Venkat Sloan US PELVIS AND TRANSVAGon [...] DUDLEY HERNÁNDEZ Date: 2021-08-17 07:01 Normal [facility] COVID Quick Testingon 2020 Result Negative [facility] Other Vital Signs Date Time Vital Sign Value Performing Clinician Facility 01-27-2021 18:45-0400 Body height 154.94 cm Mohini Juan Other [facility] Other 01-27-2021 18:45-0400 Body mass index (BMI) [Ratio] 28.34 kg/m2 Mohini Juan Other [facility] Other 01-27-2021 18:45-0400 Body temperature 96.4 [degF] Mohini Juan Other [facility] Other 01-27-2021 18:45-0400 Body weight 68.04 kg Mohini Juan Other [facility] Other 01-27-2021 18:45-0400 Respiratory rate 18 /min Mohini Juan Other [facility] Other 01-27-2021 18:45-0400 SaO2% (BldA) [Mass fraction] 99 % Mohini Juan Other [facility] Other 12-22-2020 11:45-0400 Body height 154.94 cm Dudley Freeman Other [facility] Other 12-22-2020 11:45-0400 Body mass index (BMI) [Ratio] 28.34 kg/m2 Dudley Freeman Other [facility] Other 12-22-2020 11:45-0400 Body weight 68.04 kg Dudley Freeman Other [facility] Other Encounters Encounter Date Encounter Type Care Provider Facility Start: 02-10-2023 End: 02-10-2023 ambulatory RICARDO RODRIGUEZ Not Available Start: 07-09-2022 Encounter for other preprocedural examination DR RICARDO RODRIGUEZ . [facility] Start: 07-08-2022 End: 07-08-[address] [...] Start: 02-17-2022 End: 02-18-[address] RICARDO RODRGIUEZ . Facility:[facility] Start: 02-10-2022 End: 02-10-2022 ambulatory [...] abnormal findings DR IRON AVILA . [facility] Start: 09-26-2021 End: 09-27-[address] [...] 01-27-2021 End: 01-27-2021 ambulatory Mohini Martinez Other [facility] Other Start: 01-27-2021 Office outpatient vi sit 15 minutes Mohini Juan [facility] Start: 12-22-2020 Office outpatient ne w 45 minutes Dudley Freeman [facility] G[facility] Payers Date Payer Category Payer Unknown [id number] 2.16.84 [id number] 1993 Unknown [id number] 2.16.84 0.1.580985.3.579.2.593 1993 Unknown [id number] 2.16.84 0.1.804204.3.579.2.593 1993 Unknown [id number] 2.16.84 0.1.826747.3.579.2.593 1993 Unknown [id number] 2.16.84 0.1.329198.3.579.2.593 1993 Unknown [id number] 2.16.84 0.1.907641.3.579.2.593 1993 Unknown [id number] 2.16.84 0.1.538210.3.579.2.593 1993 Unknown [id number] 2.16.84 0.1.962810.3.579.2.593 1993 Unknown [id number] 2.16.84 0.1.086564.3.579.2.593 1993 Unknown [id number] 2.16.84 0.1.214114.3.579.2.593 1993 Unknown [id number] 2.16.84 0.1.353948.3.579.2.593 1993 Unknown [id number] 2.16.84 0.1.155309.3.579.2.593 1993 Unknown [id number] 2.16.84 0.1.041889.3.579.2.593 1993 Unknown [id number] 2.16.84 0.1.519094.3.579.2.593 1993 Unknown [id number] 2.16.84 0.1.346966.3.579.2.593 1993 Unknown [id number] 2.16.84 0.1.356696.3.579.2.593 1993 Unknown [id number] 2.16.84 0.1.705085.3.579.2.593 1993 Unknown [id number] 2.16.84 0.1.020650.3.579.2.593 1993 Unknown [id number] 2.16.84 0.1.007846.3.579.2.593 1993 Unknown [id number] 2.16.84 0.1.037156.3.579.2.593 1993 Unknown [id number] 2.16.84 0.1.624610.3.579.2.593 1993 Unknown [id number] 2.16.84 0.1.286032.3.579.2.593 1993 Unknown [id number] 2.16.84 0.1.671281.3.579.2.593 1993 Unknown [id number] 2.16.84 0.1.050370.3.579.2.593 1993 Unknown [id number] 2.16.84 0.1.507816.3.579.2.593 1993 Unknown [id number] 2.16.840 .1.680375.3.579.2.1259 1959 Unknown [id number] 1959 Unknown [id number] Unknown [id number] 2.16. 840.1.974761.19 Social History Date Type Detail Facility Unknown if ever smoked [facility] Other Sex Assigned At Sex Assigned At Bir th [facility] Other Clinical Note 07-08-2022 Note Date & Type Note Facility 07-08-2022 Note OPERATIVE NOTE OPERATION DATE: 07/08/2022 PROCEDURE: Diagnostic laparoscopy with fulguration of ovarian endometrial implant. PREOPERATIVE DIAGNOSIS: Pelvic pain. POSTOPERATIVE DIAGNOSIS: Pelvic pain. ANESTHESIA: General. SURGEON: Ricardo Rodriguez D.O. INSURANCE SALES ASSISTANT: DEVIN Miles URINE OUTPUT: Yellow and clear. [...] to Recovery Room in stable condition. [facility] Evaluation note 12-22-2020 Note Date & Type Note Facility 12-22-2020 Evaluation note Encounter Date Diagnosis Assessment Notes Nov, Irritable bowel syndrome with both constipation and diarrhea (ICD-10 - K58.2) LABS INDICATED ABOVE START TRIAL OF DICYCLOMINE 20 BID RTO 4 WEEKS [facility] Other Evaluation note Note Date & Type Note Facility Evaluation note [facility] Other History general Narrative - Reported Note Date & Type Note Facility History general Narrative - Reported Type Medical History anxiety/depression Medical History IBS Surgical History TONSILLECTOMY [facility] Other History general Narrative - Reported Note Date & Type Note Facility History general Narrative - Reported [facility] Other Summary Purpose Family History No Family History Records FoundNo Family History Records Found Advance Directives No Advanced Directives Records FoundNo Advanced Directives Records Found Additional Source Comments REASON FOR VISIT (unrecogniz ed section and content) PATIENT COMPLAINING OF IBS W ITH BOTH CONSTIPATION AND DIARRHEA INFORMATION SOURCE (unrecogn ized section and content) DATE CREATED AUTHOR 07/13/2022 [facility] pital DATE CREATED AUTHOR AUTHOR'S ORGANIZ ATION 02/12/2023 [facility] EPIC FOR RECORDS PERTAINING TO [...] BE BASED ON THE PRIMARY CLINICAL RECORDS. [facility] [employer] provides no warranty or guarantee [id number] the accuracy [id number] completeness [phone] in this [id number]
[2023-04-08 12:41] LABS: Bilirubin Urine NEGATIVE (NEGATIVE); Blood Urine NEGATIVE (NEGATIVE); Clarity Urine SL CLOUDY (CLEAR); Color Urine LT. YELLOW (YELLOW); Glucose Urine UA NEGATIVE (NEGATIVE); Ketones Urine NEGATIVE (NEGATIVE); Leukocyte Esterase Urine NEGATIVE (NEGATIVE); Nitrite Urine NEGATIVE (NEGATIVE); Protein Urine NEGATIVE (NEG/TRACE); Urobilinogen Urine 0.2 EU/dL (0.2-1.0); pH Urine 7.5 (5.0-9.0)
[2023-04-08 13:14] LABS: Amorphous Sediment Urine FEW; Bacteria Urine TRACE #/HPF (NONE SEEN); Cast Seen? NONE SEEN #/LPF (NONE SEEN); Crystals Seen? Seen #/HPF (None Seen); Mucus Urine NONE SEEN (NONE SEEN); RBC Urine NONE SEEN #/HPF (0-2); Squamous Epithelial Cell Urine MODERATE #/LPF (NONE/RARE); WBC Urine NONE SEEN #/HPF (NONE SEEN)
== END 2023-04-08 12:21 | disposition home or self-care (01) ==
LOC: LAB 12:20
PROVIDERS: PCP Family Medicine; Visit Provider Family Medicine
DX: R53.83 Other fatigue (principal)
CPT/HCPCS: 81001; 87086

== ENCOUNTER 2023-05-24 08:30 | Outpatient (OUT) | payer BC, SELFPAY ==
--- OUTSIDE RECORDS SUMMARY | 2023-05-24 07:43 | XMS_ITS | CCD ---
Author Name Unknown Address [address] [place] [address] Organization [facility] Care Team Providers Care Cabinetmaker Supervisor Name Role Phone Lydia Dudley Unavailable Mohini Martinez Unavailable JENNIFER ., DR SILVA Admitting Unavailable JENNIFER ., DR SILVA Attending Unavailable HOY ., DR PERDUE Primary Care Unavailable EDGAR, DR DUDLEY Emanuel Consulting Unavailable JENNIFER ., DR SILVA Consulting Unavailable JAMIL REEVES Admitting Unavailable JAMIL REEVES Attending Unavailable HOY ., DR PERDUE Primary Care Unavailable HOY ., DR PERDUE Consulting Unavailable DUDLEY LANE Consulting Unavailable HOY ., DR PERDUE Admitting Unavailable HOY ., DR PERDUE Attending Unavailable HOY ., DR PERDUE Primary Care Unavailable HOY ., DR PERDUE Consulting Unavailable [place], DR DUDLEY Emanuel Consulting Unavailable JENNIFER ., DR SILVA Admitting Unavailable JENNIFER ., DR SILVA Attending Unavailable HOY ., DR PERDUE Referring Unavailable HOY ., DR PERDUE Primary Care Unavailable JENNIFER ., DR SILVA Consulting Unavailable HOY ., DR PERDUE Admitting Unavailable HOY ., DR PERDUE Attending Unavailable HOY ., DR PERDUE Consulting Unavailable HOY ., DR PERDUE Primary Care Unavailable HOY ., DR PERDUE Admitting Unavailable HOY ., DR PERDUE Attending Unavailable HOY ., DR PERDUE Primary Care Unavailable HOY ., DR PERDUE Consulting Unavailable JENNIFER ., DR SILVA Admitting Unavailable JENNIFER ., DR SILVA Attending Unavailable HOY ., DR PERDUE Primary Care Unavailable JENNIFER ., DR SILVA Consulting Unavailable HOY ., DR PERDUE Admitting Unavailable HOY ., DR PERDUE Attending Unavailable HOY ., DR PERDUE Primary Care Unavailable HOY ., DR PERDUE Consulting Unavailable HOY ., DR PERDUE Admitting Unavailable HOY ., DR PERDUE Attending Unavailable HOY ., DR PERDUE Primary Care Unavailable HOY ., DR PERDUE Consulting Unavailable JENNIFER ., DR SILVA Admitting Unavailable JENNIFER ., DR SILVA Attending Unavailable HOY ., DR PERDUE Primary Care Unavailable JENNIFER ., DR SILVA Consulting Unavailable JENNIFER ., DR SILVA Admitting Unavailable JENNIFER ., DR SILVA Attending Unavailable HOY ., DR PERDUE Primary Care Unavailable JENNIFER ., DR SILVA Consulting Unavailable JENNIFER ., DR SILVA Admitting Unavailable JENNIFER ., DR SILVA Attending Unavailable HOY ., DR PERDUE Primary Care Unavailable JENNIFER ., DR SILVA Consulting Unavailable HOY ., DR PERDUE Admitting Unavailable HOY ., DR PERDUE Attending Unavailable HOY ., DR PERDUE Primary Care Unavailable HOY ., DR PERDUE Consulting Unavailable HOY ., DR PERDUE Admitting Unavailable HOY ., DR PERDUE Attending Unavailable HOY ., DR PERDUE Primary Care Unavailable HOY ., DR PERDUE Consulting Unavailable Lam Vela Consulting Unavailable JENNIFER ., DR SILVA Admitting Unavailable JENNIFER ., DR SILVA Attending Unavailable HOY ., DR PERDUE Primary Care Unavailable JENNIFER ., DR SILVA Consulting Unavailable HOY ., DR PERDUE Admitting Unavailable HOY ., DR PERDUE Attending Unavailable HOY ., DR PERDUE Primary Care Unavailable HOY ., DR PERDUE Consulting Unavailable HOY ., DR PERDUE Admitting Unavailable HOY ., DR PERDUE Attending Unavailable HOY ., DR PERDUE Primary Care Unavailable HOY ., DR PERDUE Consulting Unavailable JENNIFER ., DR SILVA Admitting Unavailable JENNIFER ., DR SILVA Attending Unavailable HOY ., DR PERDUE Primary Care Unavailable JENNIFER ., DR SILVA Consulting Unavailable DAQUAN WADDELL Consulting Unavailable ALLISON BROOKE Consulting Unavailable JENNIFER ., DR SILVA Admitting Unavailable JENNIFER ., DR SILVA Attending Unavailable HOY ., DR PERDUE Primary Care Unavailable JENNIFER ., DR SILVA Consulting Unavailable HOY ., [...] Unavailable HOY ., DR PERDUE Consulting Unavailable JENNIFER ., DR SILVA Admitting Unavailable JENNIFER ., DR SILVA Attending Unavailable HOY ., DR PERDUE Primary Care Unavailable JENNIFER ., DR SILVA Consulting Unavailable ZiebLam potter Consulting Unavailable JENNIFER ., DR SILVA Admitting Unavailable JENNIFER ., DR SILVA Attending Unavailable HOY ., DR PERDUE Primary Care Unavailable JENNIFER ., DR SILVA Admitting Unavailable JENNIFER ., DR SILVA Attending Unavailable HOY ., DR PERDUE Primary Care Unavailable JENNIFERRICARDO Attending Unavailable JENNIFERRICARDO Attending Unavailable JENNIFER, RICARDO Attending Unavailable JENNIFER, RICARDO Attending Unavailable Iron Garcia MD Primary Care Provider [phone] Medications Current Medications Medication Drug Class(es) Dates Sig (Normalized) Sig (Original) [id number] 200 actuat albuterol 0.09 mg/actuat metered dose inhaler (1 source) beta2-Adrenergic Agonist Start: 01-27-2021 24 hr buPROPion hydrochloride 150 mg extended release oral tablet (2 sources) Aminoketone Start: 11-17-2022 take 1 tablet by mouth every twenty-four hours in the morning buPROPion XL (Wellbutrin XL) 150 MG 24 hr tablet Take 150 mg by mouth in the morning. 0 11/17/2022 Active busPIRone (1 source) 1 ml galcanezumab-gnlm 120 mg/ml auto-injector (2 sources) galcanezumab (Emgality) 120 MG/ML auto-injector Emgality 0 Active levocetirizine (2 sources) Histamine-1 Receptor Antagonist Xyzal Active levoFLOXacin 500 mg oral tablet (2 sources) Quinolone Antimicrobial Start: 07-27-2022 take 1 tablet by mouth in the morning levoFLOXacin (Levaquin) 500 MG tablet Take 1 tablet by mouth in the morning. 0 07/27/2022 Active magnesium oxide 400 mg oral capsule (2 sources) Start: 02-22-2023 End: 02-22-2024 take 1 capsule by mouth in the morning magnesium oxide 400 MG capsule Indications: Cluster headache, not intractable, unspecified chronicity pattern Take 1 capsule (400 mg) by mouth in the morning. 30 capsule 11 02/22/2023 02/22/2024 Active osmotic 24 hr metFORMIN hydrochloride 500 mg extended release oral tablet (2 sources) Biguanide metFORMIN, OSM, (Fortamet) 500 MG 24 hr tablet metFORMIN HCl ER 0 Active ondansetron 4 mg oral tablet (2 sources) Serotonin-3 Receptor Antagonist Start: 02-19-2023 take 1 tablet by mouth twice daily as needed for nausea ondansetron (Zofran) 4 MG tablet TAKE 1 TABLET BY MOUTH TWICE DAILY NEEDED FOR NAUSEA 0 02/19/2023 Active promethazine hydrochloride 25 mg oral tablet (2 sources) Phenothiazine Start: 02-24-2023 take 1 tablet by mouth every six hours as needed promethazine (Phenergan) 25 MG tablet 1 tablet as needed Orally q6h for 30 0 02/24/2023 Active Sertraline (1 source) Serotonin Reuptake Inhibitor SUMAtriptan 100 mg oral tablet (2 sources) Serotonin-1b and Serotonin-1d Receptor Agonist SUMAtriptan (Imitrex) 100 MG tablet TAKE 1 TABLET AT LEAST 2 HOURS BETWEEN DOSES NEEDED TWICE A DAY 0 Active Vitamin D3 (2 sources) Vitamin D3 Activ [...] syndrome; 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 Other and delivery including normal (2 sources) Second trimester ; Translations: [Encounter for supervision of normal , unspecified, second trimester] 05-02-2023 Episodic Other screening for suspected conditions (not mental disorders or infectious disease) (6 sources) Other specified abnormal findings of blood chemistry; Translations: [Patient encounter status] Onset: 02-03-2022 Episodic Ovarian cyst (5 sources) Unspecified ovarian cyst, [...] [ABDOMINAL DISTENSION GASEOUS] Onset: 01-13-2022 Episodic Other upper respiratory infections (4 sources) Acute pharyngitis, unspecified; Translations: [ACUTE PHARYNGITIS UNSPECIFIED] Onset: 01-12-2022 Episodic Unclassified (1 source) CONTACT W/AND (SUSP) EXPOS COVID-19; Translations: [CONTACT W/AND (SUSP) EXPOS COVID-19] Onset: 04-01-2022 Results Test Name Value Interpretation Reference Range Facility Urinalysis macro (dipstick) panel (U)on 05-10-2023 Bilirubin, UA Negative Negative - 4(70) +++ mg/dL [facility] Blood, UA Negative Negative - 50 Jayson/mcL [facility] Clarity, UA Clear [facility] Color, UA Yellow [facility] Glucose, UA Negative Negative - 1999(110) ++++ mg/dL [facility] Interpretation and review of laboratory results Abnormal [facility] Ketones, UA Positive Negative - 160(16) ++++ mg/dL [facility] Comment on above: trace Leukocytes, UA Trace Negative - 500+++ Lolita/mcL [facility] Nitrite, UA Negative Negative - Positive [facility] pH, UA 6.0 5 - 9 [facility] Protein, UA Negative Negative - 1999(20) ++++ mg/dL [facility] Spec Grav, UA 1.030 1 - 1.03 [facility] Urobilinogen, UA 0.2 0.2 - 12 mg/dL [facility] CBC AUTO DIFFon 07-08-2022 BASO # 0.0 103/ul Normal 0.0-0.1 [facility] Comment on above: Performed By: #### R F #### [facility] [address] [address] [address] Venkat Sloan Basophils/100 WBC (Bld) 0.5 % Normal 0.2-2.0 [facility] Comment on above: Performed By: #### R F #### [facility] [address] [address] [address] Venkat Sloan EO # 0.1 103/ul Normal 0.0-0.7 [facility] Comment on above: Performed By: #### R F #### [facility] [address] [address] [address] Venkat Sloan Eosinophils/100 WBC (Bld) 1.7 % Normal 0.9-7.0 [facility] Comment on above: Performed By: #### R F #### [facility] [address] [address] [address] Venkat Sloan Erythrocyte distribution width (RBC) [Ratio] 12.7 % Normal 11.0-15.0 [facility] Comment on above: Performed By: #### R F #### [facility] [address] [address] [address] Venkat Sloan Hematocrit (Bld) [Volume fraction] 40.4 % Normal 36.0-48.0 [facility] Comment on above: Performed By: #### R F #### [facility] [address] [address] [address] Venkat Sloan Hemoglobin (Bld) [Mass/Vol] 13.1 g/dL Normal 12.0-16.0 [facility] Comment on above: Performed By: #### R F #### [facility] [address] [address] [address] Venkat Sloan IG # 0.02 10e3/ul Normal 0.00-0.03 [facility] Comment on above: Performed By: #### R F #### [facility] [address] [place] [address] Dr. Venkat Sloan IG % 0.3 % Normal 0.0-0.5 [facility] Comment on above: Performed By: #### R F #### [facility] [address] [place] [address] Dr. Venkat Sloan LYMPH # 2.0 103/ul Normal 1.2-3.8 [facility] Comment on above: Performed By: #### R F #### [facility] [address] [place] [address] Dr. Venkat Sloan Lymphocytes/100 WBC (Bld) 26.2 % Normal 20.5-60.0 [facility] Comment on above: Performed By: #### R F #### [facility] [address] [place] [address] Dr. Venkat Sloan MANUAL DIFF REQ NO Normal [facility] Comment on above: Performed By: #### R F #### [facility] [address] [place] [address] Dr. Venkat Sloan MCH (RBC) [Entitic mass] 28.4 pg Normal 26.7-34.0 [facility] Comment on above: Performed By: #### R F #### [facility] [address] [place] [address] Dr. Venkat Sloan MCHC (RBC) [Mass/Vol] 32.4 g/dL Normal 29.9-35.2 [facility] Comment on above: Performed By: #### R F #### [facility] [address] [place] [address] Dr. Venkat Sloan MCV (RBC) [Entitic vol] 87.4 fL Normal 81.0-99.0 [facility] Comment on above: Performed By: #### R F #### [facility] [address] [place] [address] Dr. Venkat Sloan MONO # 0.7 103/ul Normal 0.3-0.8 [facility] Comment on above: Performed By: #### R F #### [facility] [address] [place] [address] Dr. Venkat Sloan Monocytes/100 WBC (Bld) 8.8 % Normal 1.7-12.0 [facility] Comment on above: Performed By: #### R F #### [facility] [address] [place] [address] Dr. Venkat Sloan NEUT # 4.8 103/ul Normal 1.4-6.5 [facility] Comment on above: Performed By: #### R F #### [facility] [address] [place] [address] Dr. Venkat Sloan Neutrophils/100 WBC (Bld) 62.5 % Normal 43.0-75.0 [facility] Comment on above: Performed By: #### R F #### [facility] [address] [place] [address] Dr. Venkat Sloan Platelet mean volume (Bld) [Entitic vol] 8.5 fL Critically low 9.5-13.5 [facility] Comment on above: Performed By: #### R F #### [facility] [address] [place] [address] Dr. Venkat Sloan PLT 331 103/ul Normal 150-450 [facility] Comment on above: Performed By: #### R F #### [facility] [address] [place] [address] Dr. Venkat Sloan RBC 4.62 106/ul Normal 4.20-5.40 [facility] Comment on above: Performed By: #### R F #### [facility] [address] [place] [address] Dr. Venkat Sloan WBC 7.7 103/ul Normal 4.0-11.0 [facility] Comment on above: Performed By: #### R F #### [facility] [address] [place] [address] Dr. Venkat Sloan PREG QUANT HCGon 07-08-2022 HCG QUANT <1 Normal [facility] Comment on above: Performed By: #### P REGQNT #### [facility] [address] [place] [address] Dr. Venkat Sloan HCG RANGE SEE BELOW Normal [facility] Comment on above: Result Comment: 5-50 0.2-1 WEEK 50-500 1-2 WEEKS 100-5,000 2-3 WEEKS 500-10,000 3-4 WEEKS 1,000-50,000 4-5 WEEKS 10,000-100,000 5-6 WEEKS 15,000-200,000 6-8 WEEKS 10,000-100,000 2-3 MONTHS Performed By: #### P REGQNT #### [facility] [address] [place] [address] Dr. Venkat Sloan PROGESTERONEon 06-23-2022 Progesterone 5.7 ng/mL Normal [facility] Comment on above: Result Comment: Foll icular phase 0.1 - 0.9 Luteal phase 1.8 - 23.9 Ovulation phase 0.1 - 12.0 First trimester 11.0 - 44.3 Second trimester 25.4 - 83.3 Third trimester 58.7 - 214.0 Postmenopausal 0.0 - 0.1 Performed By: #### T SH #### [facility] [address] [place] [address] Dr. Venkat Sloan PREG QUANT HCGon 05-31-2022 HCG QUANT 1 mIU/mL Normal [facility] Comment on above: Performed By: #### P REGQNT #### [facility] [address] [place] [address] Dr. Venkat Sloan HCG RANGE SEE BELOW Normal [facility] Comment on above: Result Comment: 5-50 0.2-1 WEEK 50-500 1-2 WEEKS 100-5,000 2-3 WEEKS 500-10,000 3-4 WEEKS 1,000-50,000 4-5 WEEKS 10,000-100,000 5-6 WEEKS 15,000-200,000 6-8 WEEKS 10,000-100,000 2-3 MONTHS Performed By: #### P REGQNT #### [facility] [address] [place] [address] Dr. Venkat Sloan PROGESTERONEon 05-21-2022 Progesterone 12.4 ng/mL Normal [facility] Comment on above: Result Comment: Foll icular phase 0.1 - 0.9 Luteal phase 1.8 - 23.9 Ovulation phase 0.1 - 12.0 First trimester 11.0 - 44.3 Second trimester 25.4 - 83.3 Third trimester 58.7 - 214.0 Postmenopausal 0.0 - 0.1 Performed By: #### I NFLUAB #### [facility] [address] [place] [address] Dr. Venkat Sloan MRI BRAIN WO W [...] by: LAM VELA Date: 2022-05-04 08:42 Normal [facility] PREG QUANT HCGon 05-04-2022 HCG QUANT <1 Normal [facility] Comment on above: Performed By: #### R F #### [facility] [address] [place] [address] Dr. Venkat Sloan HCG RANGE SEE BELOW Normal [facility] Comment on above: Result Comment: 5-50 0.2-1 WEEK 50-500 1-2 WEEKS 100-5,000 2-3 WEEKS 500-10,000 3-4 WEEKS 1,000-50,000 4-5 WEEKS 10,000-100,000 5-6 WEEKS 15,000-200,000 6-8 WEEKS 10,000-100,000 2-3 MONTHS Performed By: #### R F #### [facility] [address] [place] [address] Dr. Venkat Sloan XR HYSTEROSALPINGOGRAMon XR HYSTEROSALPINGOGRAM [...] by: LAM VELA Date: 2022-05-04 16:09 Normal [facility] PROGESTERONEon 04-24-2022 Progesterone 0.4 ng/mL Normal [facility] Comment on above: Result Comment: Foll icular phase 0.1 - 0.9 Luteal phase 1.8 - 23.9 Ovulation phase 0.1 - 12.0 First trimester 11.0 - 44.3 Second trimester 25.4 - 83.3 Third trimester 58.7 - 214.0 Postmenopausal 0.0 - 0.1 Performed By: #### I NFLUAB #### [facility] [address] [place] [address] Dr. Venkat Sloan CULTURE SPUTUMon 04-02-2022 CULTURE SPUTUM Culture Observations : NORMAL RESPIRATORY NATALEE. Normal [facility] Comment on above: Performed By: #### R F #### [facility] [address] [place] [address] Dr. Venkat Sloan SPUTUM GRAM STAINon 04-02-19 23 COMMENTS Normal [facility] Comment on above: Performed By: #### R F #### [facility] [address] [address] [address] Venkat Sloan DIPHTHEROIDS Normal [facility] Comment on above: Performed By: #### R F #### [facility] [address] [place] [address] Dr. Venkat Sloan EPITHELIALS <25 Normal [facility] Comment on above: Performed By: #### R F #### [facility] [address] [address] [address] Venkat Sloan FUNGAL ELEMENTS Normal [facility] Comment on above: Performed By: #### R F #### [facility] [address] [address] [address] Venkat Sloan GRAM NEG BACILLI RARE Normal [facility] Comment on above: Performed By: #### R F #### [facility] [address] [address] [address] Venkat MORGAN NEG DIPPLOCOCCI Normal [facility] Comment on above: Performed By: #### R F #### [facility] [address] [place] [address] Dr. Venkat Sloan GRAM POS BACILLI Normal [facility] Comment on above: Performed By: #### R F #### [facility] [address] [place] [address] Dr. Venkat Sloan GRAM POSITIVE COCCI RARE Normal [facility] Comment on above: Performed By: #### R F #### [facility] [address] [place] [address] Dr. Venkat Sloan WBC (Bld) [#/Vol] 10*3/uL Normal [facility] Comment on above: Performed By: #### R F #### [facility] [address] [place] [address] Dr. Venkat Sloan Covid-19 PCR (CVDTB)on SARS-CoV-2 (COVID-19) RNA SHIRIN+probe Ql (Unsp spec) Not detected Normal NOT DETECTED [facility] Comment on above: Result Comment: This test is not yet approved or cleared by the [place] FDA. When there are no FDA-approved or cleared tests available, and other criteria are met, FDA can make tests available under an emergency access mechanism called an Emergency Use Authorization (EUA). The EUA for this test is supported by the [place] of Health and Human Service's (HHS's) declaration [...] SARS-CoV-2. Performed By: #### P REGQNT #### [facility] [address] [place] [address] Dr. Venkat Sloan INFLUENZA A AND B [facility]on [facility] BELOW Normal [facility] Comment on above: Result Comment: Nega tive for Flu A protein angiten. Infection due to Flu A cannot be ruled out. Flu A angiten in the sample may be below the detection limit of the test. Performed By: #### I NFLUAB #### [facility] [address] [place] [address] Dr. Venkat Sloan INFLUBNEGH SEE BELOW Normal [facility] Comment on above: Result Comment: Nega tive for Flu B protein antigen. Infection due to Flu B cannot be ruled out. Flu B antigen in the sample may be below the detection limit of the test. Performed By: #### I NFLUAB #### [facility] [address] [place] [address] Dr. Venkat Sloan INFLUENZA A AG Negative Normal NEGATIVE SEE COMMENT [facility] Comment on above: Performed By: #### I NFLUAB #### [facility] [address] [place] [address] Dr. Venkat Sloan INFLUENZA B AG Negative Normal NEGATIVE SEE COMMENT [facility] Comment on above: Performed By: #### I NFLUAB #### [facility] [address] [place] [address] Dr. Venkat Sloan XR CHEST 2 Von [...] [address] Date: 2022-03-24 12:33 Normal [facility]25 SARS-CoV-2 (COVID-19) RNA SHIRIN+probe Ql (Unsp spec) Not detected Normal NOT DETECTED [facility] Comment on above: Result Comment: When diagnostic [...] for this test is supported by the [employer] of Health and Human Service's declaration that [...] used). Performed By: #### R F #### [facility] [address] [place] [address] Dr. Venkat Sloan INFLUENZA A AND B AGon 03-15 [facility] SEE BELOW Normal [facility] Comment on above: Result Comment: Nega tive for Flu A protein angiten. Infection due to Flu A cannot be ruled out. Flu A angiten in the sample may be below the detection limit of the test. Performed By: #### I NFLUAB #### [facility] [address] [address] [address] Venkat [facility]loan [facility] SEE BELOW Normal [facility] Comment on above: Result Comment: Nega tive for Flu B protein antigen. Infection due to Flu B cannot be ruled out. Flu B antigen in the sample may be below the detection limit of the test. Performed By: #### I NFLUAB #### [facility] [address] [place] [address] Dr. Venkat Sloan INFLUENZA A AG Negative Normal NEGATIVE SEE COMMENT [facility] Comment on above: Performed By: #### I NFLUAB #### [facility] [address] [place] [address] Dr. Venkat Sloan INFLUENZA B AG Negative Normal NEGATIVE SEE COMMENT [facility] Comment on above: Performed By: #### I NFLUAB #### [facility] [address] [address] [address] Venkat Sloan INTERNAL CONTROLS Within Normal Limits Normal Wi thin Normal Limits [facility] Comment on above: Performed By: #### I NFLUAB #### [facility] [address] [address] [address] Venkat Sloan Covid-19 PCR ([facility])on 02-25 SARS-CoV-2 (COVID-19) RNA SHIRIN+probe Ql (Unsp spec) Not detected Normal NOT DETECTED [facility] Comment on above: Result Comment: When diagnostic [...] for this test is supported by the [employer] Manager of Health and Human Service's declaration that [...] used). Performed By: #### I NFLUAB #### [facility] [address] [place] [address] Dr. Venkat Sloan INFLUENZA A AND B AGon 03-12 INFLUANEGH SEE BELOW Normal [facility] Comment on above: Result Comment: Nega tive for Flu A protein angiten. Infection due to Flu A cannot be ruled out. Flu A angiten in the sample may be below the detection limit of the test. Performed By: #### I NFLUAB #### [facility] [address] [place] [address] Dr. Venkat Sloan [facility] SEE BELOW Normal [facility] Comment on above: Result Comment: Nega tive for Flu B protein antigen. Infection due to Flu B cannot be ruled out. Flu B antigen in the sample may be below the detection limit of the test. Performed By: #### I NFLUAB #### [facility] [address] [place] [address] Dr. Venkat Sloan INFLUENZA A AG Negative Normal NEGATIVE SEE COMMENT [facility] Comment on above: Performed By: #### I NFLUAB #### [facility] [address] [place] [address] Dr. Venkat Sloan INFLUENZA B AG Negative Normal NEGATIVE SEE COMMENT [facility] Comment on above: Performed By: #### I NFLUAB #### [facility] [address] [place] [address] Dr. Venkat Sloan INTERNAL CONTROLS Within Normal Limits Normal Wi thin Normal Limits [facility] Comment on above: Performed By: #### I NFLUAB #### [facility] [address] [place] [address] Dr. Venkat Sloan PROGESTERONEon 02-20-2022 Progesterone 0.3 ng/mL Normal [facility] Comment on above: Result Comment: Foll icular phase 0.1 - 0.9 Luteal phase 1.8 - 23.9 Ovulation phase 0.1 - 12.0 First trimester 11.0 - 44.3 Second trimester 25.4 - 83.3 Third trimester 58.7 - 214.0 Postmenopausal 0.0 - 0.1 Performed By: #### R F #### [facility] [address] [place] [address] Dr. Venkat Sloan ACTH STIMULATIONon 2 Andros Baseline 49 ng/dL Normal 41-262 [facility] Comment on above: Performed By: #### R F #### [facility] [address] [place] [address] Dr. Venkat Sloan Andros Stimulated 82 ng/dL Normal Not Estab. [facility] Comment on above: Performed By: #### R F #### [facility] [address] [address] [address] Venkat Sloan Covid-19 PCR ([facility])on 01-26 SARS-CoV-2 (COVID-19) RNA SHIRIN+probe Ql (Unsp spec) Not detected Normal NOT DETECTED [facility] Comment on above: Result Comment: This test is not yet approved or cleared by the [place] FDA. When there are no FDA-approved or cleared tests available, and other criteria are met, FDA can make tests available under an emergency access mechanism called an Emergency Use Authorization (EUA). The EUA for this test is supported by the [employer] Manager of Health and Human Service's (HHS's) declaration [...] SARS-CoV-2. Performed By: #### I NFLUAB #### [facility] [address] [place] [address] Dr. Venkat Sloan INFLUENZA A AND B AGon 02-10 [facility] SEE BELOW Normal [facility] Comment on above: Result Comment: Nega tive for Flu A protein angiten. Infection due to Flu A cannot be ruled out. Flu A angiten in the sample may be below the detection limit of the test. Performed By: #### P REGQNT #### [facility] [address] [place] [address] Dr. Venkat Sloan INFLUBNEG SEE BELOW Normal [facility] Comment on above: Result Comment: Nega tive for Flu B protein antigen. Infection due to Flu B cannot be ruled out. Flu B antigen in the sample may be below the detection limit of the test. Performed By: #### P REGQNT #### [facility] [address] [address] [address] Venkat Sloan INFLUENZA A AG Negative Normal NEGATIVE SEE COMMENT [facility] Comment on above: Performed By: #### P REGQNT #### [facility] [address] [address] [address] Venkat Sloan INFLUENZA B AG Negative Normal NEGATIVE SEE COMMENT [facility] Comment on above: Performed By: #### P REGQNT #### [facility] [address] [address] [address] Venkat Sloan INTERNAL CONTROLS Within Normal Limits Normal Wi thin Normal Limits [facility] Comment on above: Performed By: #### P REGQNT #### [facility] [address] [address] [address] Venkat Sloan DHEA SERUMon 01-19-2022 Dehydroepiandrosterone (DHEA) 82 ng/dL Normal 31-701 [facility] Comment on above: Result Comment: Age 1 [...] 701 Performed By: #### T SH #### [facility] [address] [address] [address] Venkat Sloan DHEA-SULFATEon 01-14-2022 DHEA-Sulfate 34.0 ug/dL Critically low 84.8-378.0 [facility] Comment on above: Performed By: #### R F #### [facility] [address] [address] [address] Venkat Sloan FSHon 01-14-2022 FSH 2.2 mIU/mL Normal [facility] Comment on above: Result Comment: Adul t Female: Follicular phase 3.5 - 12.5 Ovulation phase 4.7 - 21.5 Luteal phase 1.7 - 7.7 Postmenopausal 25.8 - 134.8 Performed By: #### L BCFSH #### [facility] [address] [address] [address] Venkat Sloan LUTEINIZING HORMONE (LH)on LH 5.1 mIU/mL Normal [facility] Comment on above: Result Comment: Adul t Female: Follicular phase 2.4 - 12.6 Ovulation phase 14.0 - 95.6 Luteal phase 1.0 - 11.4 Postmenopausal 7.7 - 58.5 Performed By: #### I NFLUAB #### [facility] [address] [place] [address] Dr. Venkat Sloan PROLACTINon 01-14-2022 Prolactin 8.0 ng/mL Normal 4.8-23.3 [facility] Comment on above: Performed By: #### P ROLAC #### [facility] [address] [place] [address] Dr. Venkat Sloan CBC AUTO DIFFon 01-13-2022 BASO # 0.0 103/ul Normal 0.0-0.1 [facility] Comment on above: Performed By: #### T SH #### [facility] [address] [place] [address] Dr. Venkat Sloan Basophils/100 WBC (Bld) 0.4 % Normal 0.2-2.0 [facility] Comment on above: Performed By: #### T SH #### [facility] [address] [place] [address] Dr. Venkat Sloan EO # 0.1 103/ul Normal 0.0-0.7 [facility] Comment on above: Performed By: #### T SH #### [facility] [address] [place] [address] Dr. Venkat Sloan Eosinophils/100 WBC (Bld) 1.2 % Normal 0.9-7.0 [facility] Comment on above: Performed By: #### T SH #### [facility] [address] [place] [address] Dr. Venkat Sloan Erythrocyte distribution width (RBC) [Ratio] 12.7 % Normal 11.0-15.0 [facility] Comment on above: Performed By: #### T SH #### [facility] [address] [place] [address] Dr. Venkat Sloan Hematocrit (Bld) [Volume fraction] 41.1 % Normal 36.0-48.0 [facility] Comment on above: Performed By: #### T SH #### [facility] [address] [place] [address] Dr. Venkat Sloan Hemoglobin (Bld) [Mass/Vol] 13.1 g/dL Normal 12.0-16.0 [facility] Comment on above: Performed By: #### T SH #### [facility] [address] [place] [address] Dr. Venkat Sloan IG # 0.03 10e3/ul Normal 0.00-0.03 [facility] Comment on above: Performed By: #### T SH #### [facility] [address] [place] [address] Dr. Venkat Sloan IG % 0.3 % Normal 0.0-0.5 [facility] Comment on above: Performed By: #### T SH #### [facility] [address] [place] [address] Dr. Venkat Sloan LYMPH # 1.6 103/ul Normal 1.2-3.8 [facility] Comment on above: Performed By: #### T SH #### [facility] [address] [place] [address] Dr. Venkat Sloan Lymphocytes/100 WBC (Bld) 15.0 % Critically low 20.5-60.0 [facility] Comment on above: Performed By: #### T SH #### [facility] [address] [place] [address] Dr. Venkat Sloan MANUAL DIFF REQ NO Normal [facility] Comment on above: Performed By: #### T SH #### [facility] [address] [place] [address] Dr. Venkat Sloan MCH (RBC) [Entitic mass] 28.5 pg Normal 26.7-34.0 [facility] Comment on above: Performed By: #### T SH #### [facility] [address] [place] [address] Dr. Venkat Sloan MCHC (RBC) [Mass/Vol] 31.9 g/dL Normal 29.9-35.2 [facility] Comment on above: Performed By: #### T SH #### [facility] [address] [place] [address] Dr. Venkat Sloan MCV (RBC) [Entitic vol] 89.3 fL Normal 81.0-99.0 [facility] Comment on above: Performed By: #### T SH #### [facility] [address] [place] [address] Dr. Venkat Sloan MONO # 0.9 103/ul Critically high 0.3-0.8 [facility] Comment on above: Performed By: #### T SH #### [facility] [address] [place] [address] Dr. Venkat Sloan Monocytes/100 WBC (Bld) 8.8 % Normal 1.7-12.0 [facility] Comment on above: Performed By: #### T SH #### [facility] [address] [place] [address] Dr. Venkat Sloan NEUT # 7.9 103/ul Critically high 1.4-6.5 [facility] Comment on above: Performed By: #### T SH #### [facility] [address] [place] [address] Dr. Venkat Sloan Neutrophils/100 WBC (Bld) 74.3 % Normal 43.0-75.0 [facility] Comment on above: Performed By: #### T SH #### [facility] [address] [place] [address] Dr. Venkat Sloan Platelet mean volume (Bld) [Entitic vol] 9.2 fL Critically low 9.5-13.5 [facility] Comment on above: Performed By: #### T SH #### [facility] [address] [place] [address] Dr. Venkat Sloan PLT 300 103/ul Normal 150-450 [facility] Comment on above: Performed By: #### T SH #### [facility] [address] [place] [address] Dr. Venkat Sloan RBC 4.60 106/ul Normal 4.20-5.40 [facility] Comment on above: Performed By: #### T SH #### [facility] [address] [address] [address] Venkat Sloan WBC 10.7 103/ul Normal 4.0-11.0 [facility] Comment on above: Performed By: #### T SH #### [facility] [address] [place] [address] Dr. Venkat Sloan GLYCOHEMOGLOBIN A1Con 2021 ADA RECOMMENDATION SEE BELOW Normal [facility] Comment on above: Result Comment: ADA RECOMMENDED LIMIT 4.0 - 6.0 ADA THERAPEUTIC TARGET < 7.0 ACTION SUGGESTED > 7.0 Performed By: #### P REGQNT #### [facility] [address] [place] [address] Dr. Venkat Sloan Glucose [Mass/Vol] 100 mg/dL Normal [facility] Comment on above: Performed By: #### P REGQNT #### [facility] [address] [place] [address] Dr. Venkat Sloan HbA1c (Bld) [Mass fraction] 5.1 % Normal 4.5-6.2 [facility] Comment on above: Performed By: #### P REGQNT #### [facility] [address] [place] [address] Dr. Venkat Sloan TSHon 01-13-2022 TSH 1.098 uIU/mL Normal 0.358-3.740 [facility] Comment on above: Performed By: #### T SH #### [facility] [address] [place] [address] Dr. Venkat Sloan Covid-19 PCR ([facility])on 12-26 SARS-CoV-2 (COVID-19) RNA SHIRIN+probe Ql (Unsp spec) Not detected Normal NOT DETECTED [facility] Comment on above: Result Comment: This test is not yet approved or cleared by the [place] FDA. When there are no FDA-approved or cleared tests available, and other criteria are met, FDA can make tests available under an emergency access mechanism called an Emergency Use Authorization (EUA). The EUA for this test is supported by the [place] of Health and Human Service's (HHS's) declaration [...] SARS-CoV-2. Performed By: #### I NFLUAB #### [facility] [address] [place] [address] Dr. Venkat Sloan PREG QUANT HCGon 12-24-2021 HCG QUANT <1 Normal [facility] Comment on above: Performed By: #### P REGQNT #### [facility] [address] [place] [address] Dr. Venkat Sloan HCG RANGE SEE BELOW Normal [facility] Comment on above: Result Comment: 5-50 0.2-1 WEEK 50-500 1-2 WEEKS 100-5,000 2-3 WEEKS 500-10,000 3-4 WEEKS 1,000-50,000 4-5 WEEKS 10,000-100,000 5-6 WEEKS 15,000-200,000 6-8 WEEKS 10,000-100,000 2-3 MONTHS Performed By: #### P REGQNT #### [facility] [address] [place] [address] Dr. Venkat Sloan HCG-BETA SUBUNIT QUANTon hCG,Beta Subunit,Qnt,Serum <1 Normal [facility] Comment on above: Result Comment: Fema le (Non-) 0 - 5 (Postmenopausal) 0 - 8 . Female () Weeks of Gestation 3 6 - 71 4 10 - 750 5 761 - 7705 6 046 - 02459 7 [id number] -[id number] 8 27511 -[phone] 9 77028 -[phone] 10 45742 -[phone] 12 41649 -866547 14 90760 - 10934 15 80175 - 23304 16 4601 - 54278 17 5926 - 79089 18 7033 - 40888 Aj ECLIA methodology Performed By: #### T SH #### [facility] [address] [place] [address] Dr. Venkat Sloan BRETT by IFAon 09-29-2021 Antinuclear Antibodies, IFA Negative Normal [facility] Comment on above: Result Comment: Nega tive <1:80 Borderline 1:80 Positive >1:80 ICAP nomenclature: AC-0 For more information about Hep-2 cell patterns use ANApatterns.org, the official website for the International Consensus on Antinuclear Antibody (BRETT) Patterns (ICAP). Performed By: #### A NAIFA #### [facility] [address] [place] [address] Dr. Venkat Sloan INSULINon 09-29-2021 Insulin 11.1 uIU/mL Normal 2.6-24.9 [facility] Comment on above: Performed By: #### T SH #### [facility] [address] [place] [address] Dr. Venkat Sloan ANTISTREPTOLYSIN O AB (ASO)o n 09-27-2021 Antistreptolysin O Ab <20.0 Normal 0.0-200.0 [facility] Comment on above: Performed By: #### P REGQNT #### [facility] [address] [place] [address] Dr. Venkat Sloan RHEUMATOID FACTORon 09-28-19 RA Latex Turbid. <10.0 Normal <14.0 [facility] Comment on above: Performed By: #### R F #### [facility] [address] [place] [address] Dr. Venkat Sloan CBC AUTO DIFFon 09-26-2021 BASO # 0.0 103/ul Normal 0.0-0.1 [facility] Comment on above: Performed By: #### T SH #### [facility] [address] [place] [address] Dr. Venkat Sloan Basophils/100 WBC (Bld) 0.3 % Normal 0.2-2.0 [facility] Comment on above: Performed By: #### T SH #### [facility] [address] [place] [address] Dr. Venkat Sloan EO # 0.1 103/ul Normal 0.0-0.7 [facility] Comment on above: Performed By: #### T SH #### [facility] [address] [place] [address] Dr. Venkat Sloan Eosinophils/100 WBC (Bld) 1.8 % Normal 0.9-7.0 [facility] Comment on above: Performed By: #### T SH #### [facility] [address] [place] [address] Dr. Venkat Sloan Erythrocyte distribution width (RBC) [Ratio] 12.9 % Normal 11.0-15.0 [facility] Comment on above: Performed By: #### T SH #### [facility] [address] [place] [address] Dr. Venkat Sloan Hematocrit (Bld) [Volume fraction] 39.8 % Normal 36.0-48.0 [facility] Comment on above: Performed By: #### T SH #### [facility] [address] [place] [address] Dr. Venkat Sloan Hemoglobin (Bld) [Mass/Vol] 12.7 g/dL Normal 12.0-16.0 [facility] Comment on above: Performed By: #### T SH #### [facility] [address] [place] [address] Dr. Venkat Sloan IG # 0.02 10e3/ul Normal 0.00-0.03 [facility] Comment on above: Performed By: #### T SH #### [facility] [address] [place] [address] Dr. Venkat Sloan IG % 0.3 % Normal 0.0-0.5 [facility] Comment on above: Performed By: #### T SH #### [facility] [address] [place] [address] Dr. Venkat Sloan LYMPH # 1.5 103/ul Normal 1.2-3.8 [facility] Comment on above: Performed By: #### T SH #### [facility] [address] [place] [address] Dr. Venkat Sloan Lymphocytes/100 WBC (Bld) 21.5 % Normal 20.5-60.0 [facility] Comment on above: Performed By: #### T SH #### [facility] [address] [place] [address] Dr. Venkat Sloan MANUAL DIFF REQ NO Normal [facility] Comment on above: Performed By: #### T SH #### [facility] [address] [place] [address] Dr. Venkat Sloan MCH (RBC) [Entitic mass] 28.5 pg Normal 26.7-34.0 [facility] Comment on above: Performed By: #### T SH #### [facility] [address] [place] [address] Dr. Venkat Sloan MCHC (RBC) [Mass/Vol] 31.9 g/dL Normal 29.9-35.2 [facility] Comment on above: Performed By: #### T SH #### [facility] [address] [place] [address] Dr. Venkat Sloan MCV (RBC) [Entitic vol] 89.2 fL Normal 81.0-99.0 [facility] Comment on above: Performed By: #### T SH #### [facility] [address] [place] [address] Dr. Venkat Sloan MONO # 0.5 103/ul Normal 0.3-0.8 [facility] Comment on above: Performed By: #### T SH #### [facility] [address] [place] [address] Dr. Venkat Slaon Monocytes/100 WBC (Bld) 7.6 % Normal 1.7-12.0 [facility] Comment on above: Performed By: #### T SH #### [facility] [address] [place] [address] Dr. Venkat Sloan NEUT # 4.9 103/ul Normal 1.4-6.5 [facility] Comment on above: Performed By: #### T SH #### [facility] [address] [place] [address] Dr. Venkat Sloan Neutrophils/100 WBC (Bld) 68.5 % Normal 43.0-75.0 [facility] Comment on above: Performed By: #### T SH #### [facility] [address] [place] [address] Dr. Venkat Sloan Platelet mean volume (Bld) [Entitic vol] 8.8 fL Critically low 9.5-13.5 [facility] Comment on above: Performed By: #### T SH #### [facility] [address] [place] [address] Dr. Venkat Sloan PLT 297 103/ul Normal 150-450 [facility] Comment on above: Performed By: #### T SH #### [facility] [address] [place] [address] Dr. Venkat Sloan RBC 4.46 106/ul Normal 4.20-5.40 [facility] Comment on above: Performed By: #### T SH #### [facility] [facility] [address] [place] [address] Dr. Venkat Sloan WBC 7.1 103/ul Normal 4.0-11.0 [facility] Comment on above: Performed By: #### T SH #### [facility] [address] [place] [address] Dr. Venkat Sloan CRPon 09-26-2021 CRP [Mass/Vol] mg/L Normal <=1.0 [facility] Comment on above: Performed By: #### P REGQNT #### [facility] [address] [place] [address] Dr. Venkat Sloan FREE THYROXINE INDEX T7on FTI 2.71 Normal 1.30-4.50 [facility] Comment on above: Performed By: #### P REGQNT #### [facility] [address] [place] [address] Dr. Venkat Sloan T3U 33.0 % Normal 30.0-39.0 [facility] Comment on above: Performed By: #### P REGQNT #### [facility] [address] [place] [address] Dr. Venkat Sloan T4 [Mass/Vol] 8.20 ug/dL Normal 4.80-13.[address] [facility] Comment on above: Performed By: #### P REGQNT #### [facility] [address] [address] [address] Venkat Sloan GLYCOHEMOGLOBIN A1Con 2021 ADA RECOMMENDATION SEE BELOW Normal [facility] Comment on above: Result Comment: ADA RECOMMENDED LIMIT 4.0 - 6.0 ADA THERAPEUTIC TARGET < 7.0 ACTION SUGGESTED > 7.0 Performed By: #### I NFLUAB #### [facility] [address] [address] [address] Venkat Sloan Glucose [Mass/Vol] 105 mg/dL Normal [facility] Comment on above: Performed By: #### I NFLUAB #### [facility] [address] [address] [address] Venkat Sloan HbA1c (Bld) [Mass fraction] 5.3 % Normal 4.5-6.2 [facility] Comment on above: Performed By: #### I NFLUAB #### [facility] [address] [address] [address] Venkat Sloan IRONon 09-26-2021 Iron [Mass/Vol] 49.0 ug/dL Critically low 50.0-170.0 [facility] Comment on above: Performed By: #### P REGQNT #### [facility] [address] [place] [address] Dr. Venkat Sloan LIPID PROFILEon 09-26-2021 CHOL-HDL RATIO NORM SEE BELOW Normal [facility] Comment on above: Result Comment: 3.3 - 4.4 LOW RISK 4.4 - 7.1 AVERAGE RISK 7.1 - 11.0 MODERATE RISK >11.0 HIGH RISK Performed By: #### P REGQNT #### [facility] [address] [address] [address] Venkat Sloan Cholesterol [Mass/Vol] 197 mg/dL Normal <=200 [facility] Comment on above: Performed By: #### P REGQNT #### [facility] [address] [address] [address] Venkat Sloan Cholesterol in HDL [Mass/Vol] 64 mg/dL Critically high 40-60 [facility] Comment on above: Performed By: #### P REGQNT #### [facility] [address] [address] [address] Venkat Sloan Cholesterol in LDL [Mass/Vol] 123.4 mg/dL Normal [facility] Comment on above: Performed By: #### P REGQNT #### [facility] [address] [address] [address] Venkat Sloan Cholesterol.total/Choles terol in HDL [Mass ratio] 3.1 {ratio} Normal [facility] Comment on above: Performed By: #### P REGQNT #### [facility] [address] [address] [address] Venkat Sloan HDL NORMAL > or = 60 mg/dl - LO W CARDIOVASCULAR RISK <40 mg/dl - HIGH CARDIOVASCULAR RISK Normal [facility] Comment on above: Performed By: #### P REGQNT #### [facility] [address] [address] [address] Venkat Sloan LDL CALC NORMAL SEE BELOW Normal [facility] Comment on above: Result Comment: <100 mg/dl OPTIMAL 100 - 129 mg/dl NEAR OR ABOVE OPTIMAL 130 - 159 mg/dl BORDERLINE HIGH 160 - 189 mg/dl HIGH >190 mg/dl VERY HIGH Performed By: #### P REGQNT #### [facility] [address] [address] [address] Venkat Sloan Triglyceride [Mass/Vol] 48 mg/dL Normal <=150 [facility] Comment on above: Performed By: #### P REGQNT #### [facility] [address] [address] [address] Venkat Sloan VLDL CALC 9.6 mg/dL Normal [facility] Comment on above: Performed By: #### P REGQNT #### [facility] [address] [address] [address] Venkat Sloan PROF 14(COMP METB)on 07-02-2 022 Albumin [Mass/Vol] 4.0 g/dL Normal 3.4-5.0 [facility] Comment on above: Performed By: #### I NFLUAB #### [facility] [address] [place] [address] Dr. Venkat Sloan Albumin/Globulin [Mass ratio] 1.3 {ratio} Normal [facility] Comment on above: Performed By: #### I NFLUAB #### [facility] [address] [address] [address] Venkat Sloan ALP [Catalytic activity/Vol] 58 U/L Normal 46-116 [facility] Comment on above: Performed By: #### I NFLUAB #### [facility] [address] [place] [address] Dr. Venkat Sloan ALT [Catalytic activity/Vol] 20 U/L Normal 14-59 [facility] Comment on above: Performed By: #### I NFLUAB #### [facility] [address] [place] [address] Dr. Venkat Sloan Anion gap [Moles/Vol] 10.4 mmol/L Normal [facility] Comment on above: Performed By: #### I NFLUAB #### [facility] [address] [place] [address] Dr. Venkat Sloan AST [Catalytic activity/Vol] 11 U/L Critically low 15-37 [facility] Comment on above: Performed By: #### I NFLUAB #### [facility] [address] [place] [address] Dr. Venkat Sloan Bilirubin [Mass/Vol] 0.8 mg/dL Normal 0.2-1.0 [facility] Comment on above: Performed By: #### I NFLUAB #### [facility] [address] [place] [address] Dr. Venkat Sloan Calcium [Mass/Vol] 9.0 mg/dL Normal 8.5-10.1 [facility] Comment on above: Performed By: #### I NFLUAB #### [facility] [address] [place] [address] Dr. Venkat Sloan Chloride [Moles/Vol] 106 mmol/L Normal 98-107 [facility] Comment on above: Performed By: #### I NFLUAB #### [facility] [address] [place] [address] Dr. Venkat Sloan CO2 [Moles/Vol] 27.0 mmol/L Normal 21.0-32.0 [facility] Comment on above: Performed By: #### I NFLUAB #### [facility] [address] [place] [address] Dr. Venkat Sloan Creatinine [Mass/Vol] 0.70 mg/dL Normal 0.55-1.02 [facility] Comment on above: Performed By: #### I NFLUAB #### [facility] [address] [place] [address] Dr. Venkat Sloan EGFR-AF LITHUANIAN >60 Normal >=60 [facility] Comment on above: Performed By: #### I NFLUAB #### [facility] [address] [place] [address] Dr. Venkat Sloan EGFR-NON AF LITHUANIAN >60 Normal >=60 [facility] Comment on above: Performed By: #### I NFLUAB #### [facility] [address] [place] [address] Dr. Venkat Sloan Globulin (S) [Mass/Vol] 3.2 g/dL Normal [facility] Comment on above: Performed By: #### I NFLUAB #### [facility] [address] [place] [address] Dr. Venkat Sloan Glucose [Mass/Vol] 92 mg/dL Normal 74-106 [facility] Comment on above: Performed By: #### I NFLUAB #### [facility] [address] [place] [address] Dr. Venkat Sloan Potassium [Moles/Vol] 4.4 mmol/L Normal 3.5-5.1 [facility] Comment on above: Performed By: #### I NFLUAB #### [facility] [address] [place] [address] Dr. Venkat Sloan Protein [Mass/Vol] 7.2 g/dL Normal 6.4-8.2 [facility] Comment on above: Performed By: #### I NFLUAB #### [facility] [address] [place] [address] Dr. Venkat Sloan Sodium [Moles/Vol] 139 mmol/L Normal 136-145 [facility] Comment on above: Performed By: #### I NFLUAB #### [facility] [address] [place] [address] Dr. Venkat Sloan Urea nitrogen [Mass/Vol] 13.0 mg/dL Normal 7.0-18.0 [facility] Comment on above: Performed By: #### I NFLUAB #### [facility] [address] [place] [address] Dr. Venkat Sloan Urea nitrogen/Creatinine [Mass ratio] 18.6 mg/mg Normal [facility] Comment on above: Performed By: #### I NFLUAB #### [facility] [address] [place] [address] Dr. Venkat Sloan TSHon 09-26-2021 TSH 1.318 uIU/mL Normal 0.358-3.[address] [facility] Comment on above: Performed By: #### P REGQNT #### [facility] [address] [place] [address] Dr. Venkat Sloan URIC ACID SERUMon 09-26-2021 Urate [Mass/Vol] 3.9 mg/dL Normal 2.6-6.0 [facility] Comment on above: Performed By: #### P REGQNT #### [facility] [address] [place] [address] Dr. Venkat Sloan XR CSPINE MIN 4 [...] by: DUDLEY HERNÁNDEZ Date: 2021-09-24 21:16 Normal [facility] PREG QUANT HCGon 08-17-2021 HCG QUANT <1 Normal [facility] Comment on above: Performed By: #### I NFLUAB #### [facility] [address] [address] [address] Venkat Sloan HCG RANGE SEE BELOW Normal [facility] Comment on above: Result Comment: 5-50 0-1 WEEK 40-300 1-2 WEEKS 100-1,000 2-3 WEEKS 500-6,000 3-4 WEEKS 5,000-200,000 1-2 MONTHS 10,000-100,000 2-3 MONTHS 3,000-50,000 2ND TRIMESTER 1,000-50,000 3RD TRIMESTER Performed By: #### I NFLUAB #### [facility] [address] [address] [address] Venkat Sloan US PELVIS AND TRANSVAGon [...] DUDLEY HERNÁNDEZ Date: 2021-08-17 07:01 Normal [facility] COVID Quick Testingon 2020 Result Negative [facility] Other Vital Signs Date Time Vital Sign Value Performing Clinician Facility 05-10-2023 15:14-0500 Body mass index (BMI) [Ratio] 30.04 kg/m2 Ricardo Jennifer DO Work Phone: [facility] 05-10-2023 15:14-0500 Body weight 72.12 kg Ricardo Jennifer DO Work Phone: [facility] 05-10-2023 15:14-0500 Diastolic blood pressure 70 mm[Hg] Ricardo Jennifer DO Work Phone: [facility] 05-10-2023 15:14-0500 Systolic blood pressure 110 mm[Hg] Ricardo Jennifer DO Work Phone: [facility] 01-27-2021 18:45-0400 Body height 154.94 cm Mohini Juan Other [facility] 01-27-2021 18:45-0400 Body mass index (BMI) [Ratio] 28.34 kg/m2 Mohini Juan Other [facility] 01-27-2021 18:45-0400 Body temperature 96.4 [degF] Mohini Buttault Other [facility] Other 01-27-2021 18:45-0400 Body weight 68.04 kg Mohini Buttault Other [facility] Other 01-27-2021 18:45-0400 Respiratory rate 18 /min Mohini Juan Other [facility] Other 01-27-2021 18:45-0400 SaO2% (BldA) [Mass fraction] 99 % Mohini Juan Other [facility] Other 12-22-2020 11:45-0400 Body height 154.94 cm Dudley Freeman Other [facility] Other 12-22-2020 11:45-0400 Body mass index (BMI) [Ratio] 28.34 kg/m2 Dudley Freeman Other [facility] Other 12-22-2020 11:45-0400 Body weight 68.04 kg Dudley Freeman Other [facility] Other Encounters Encounter Date Encounter Type Care Provider Facility Start: 05-10-2023 End: 05-10-2023 ambulatory RICARDO RODRIGUEZ Not Available Start: 05-10-2023 End: 05-10-2023 flow sheet Ricardo Rodriguez DO Work Phone: [facility] Comment on above: Second trimester pre gnancy; Diabetes mellitus screening Start: 04-12-2023 End: 04-12-2023 ambulatory RICARDO RODRIGUEZ Not Available Start: 03-15-2023 End: 03-15-2023 ambulatory RICARDO RODRIGUEZ Not Available Start: 02-10-2023 End: 02-10-2023 ambulatory RICARDO RODRIGUEZ Not Available Start: 07-09-2022 Encounter for other preprocedural examination DR RICARDO RODRIGUEZ . [facility] Start: 07-08-2022 End: 07-08-[address] RICARDO RODRIGUEZ . Facility:[facility] Start: 06-30-2022 End: 07-01-[address] RICARDO RODRIGUEZ . Facility:[facility] Start: 06-30-2022 End: 07-01-2022 Encounter for other preprocedural examination DR RICARDO RODRIGUEZ . Facility:[facility] Start: 06-21-2022 End: 06-22-[address] RICARDO RODRIGUEZ . Facility:[facility] Start: 05-31-2022 End: 06-01-[address] IRON GARCIA . Facility:[facility] Start: 05-20-2022 End: 05-21-[address] RICARDO RODRIGUEZ . Facility:[facility] Start: 05-04-2022 End: 05-04-[address] RICARDO RODRIGUEZ . Facility:[facility] Start: 05-04-2022 End: 05-05-[address] IRON GARCIA . Facility:[facility] Start: 04-23-2022 End: 04-24-[address] RICARDO RODRIGUEZ . Facility:[facility] Start: 04-02-2022 End: 04-02-[address] IRON GARCIA . Facility:[facility] Start: 04-01-2022 End: 04-01-[address] IRON GARCIA . Facility:[facility] Start: 03-24-2022 End: 03-25-2022 ambulatory JAMIL MACMER Facility:[facility] Start: 03-15-2022 End: 03-15-[address] IRON GARCIA . Facility:[facility] Start: 03-12-2022 End: 03-12-[address] IRON GARCIA . Facility:[facility] Start: 02-17-2022 End: 02-18-[address] RICARDO RODRIGUEZ . Facility:[facility] Start: 02-10-2022 End: 02-10-[address] IRON GARCIA . Facility:[facility] Start: 02-03-2022 End: 02-03-[address] IRON GARCIA . Facility:[facility] Start: 02-01-[address] RICARDO RODRIGUEZ . Facili ty:[facility] Start: 01-13-2022 End: 01-14-[address] RICARDO RODRIGUEZ . Facility:[facility] Start: 01-12-2022 End: 01-12-[address] IRON GARCIA . Facility:[facility] Start: 12-24-2021 End: 12-25-[address] IRON GARCIA . Facility:[facility] Start: 11-21-2021 End: 11-22-[address] RICARDO RODRIGUEZ . Facility:[facility] Start: 10-02-2021 Encounter for genera l adult medical examination without abnormal findings DR IRON GARCIA . [facility] Start: 09-26-2021 End: 09-27-[address] IRON GARCIA . Facility:[facility] Start: 09-26-2021 End: 09-27-2021 Encounter for general adult medical examination without abnormal findings DR IRON GARCIA . Facility:[facility] Start: 09-24-2021 End: 09-25-[address] IRON GARCIA . Facility:[facility] Start: 08-17-2021 End: 08-18-[address] RICARDO RODRIGUEZ . Facility:[facility] Start: 08-15-2021 End: 08-16-[address] RICARDO RODRIGUEZ . Facility:[facility] Start: 01-27-2021 End: 01-27-2021 ambulatory Mohini Martinez Other [facility] Other Start: 01-27-2021 Office outpatient vi sit 15 minutes Mohini Martinze [facility] Start: 12-22-2020 Office outpatient ne w 45 minutes Dudley Freeman [facility] Procedures Date Procedure Procedure Detail Performing Clinician Start: 05-10-2023 Urnls dip stick/tabl et rgnt non-auto w/o micrscp Ricardo Rodriguez DO Work Phone: Plan of Treatment Date Care Activity Detail Author Start: 05-26-2023 End: 05-26-2023 Patient encounter procedure 05/26/2023 9:50 AM EST Routine [facility] [address] [place] [id number] Ricardo Rodriguez, DO [address] [place] [address] [facility] Start: 05-10-2023 End: 05-10-2024 CBC panel - Blood by Automated count CBC Lab Routine Diabetes mellitus screening Expected: 05/10/2023 (Approximate), Expires: 05/10/2024 [facility] Work Phone: Comment on above: Expected: 05/10/2023 (Approximate), Expires: 05/10/2024 Start: 05-10-2023 End: 05-10-2024 Measurement of glucose 1 hour after glucose challenge for glucose tolerance test Glucose tolerance, 1 hour Lab Routine Diabetes mellitus screening Expected: 05/10/2023 (Approximate), Expires: 05/10/2024 [facility] Comment on above: Expected: 05/10/2023 (Approximate), Expires: 05/10/2024 Start: 11-26-2022 Influenza vaccination Influenz a Vaccine (#1) [facility] Immunizations Immunization Date Immunization Notes Care Provider Frankie munoz 01-25-2022 influenza virus vacc ine, unspecified formulation Ricardo Rodriguez DO Work Phone: [facility] Payers Date Payer Category Payer Unknown BCBS BCBS xxxxxx [id number] 2022-Present [phone] [address] [place] [address] [id number] 1993 Unknown [id number] 2.16.840.1.556378.3.579.2.593 1993 Unknown [id number] 2.16.840.1.994835.3.579.2.593 1993 Unknown [id number] 2.16.840.1.173440.3.579.2.59 1993 Unknown [id number] 2.16.840.1.305755.3.579.2.59 1993 Unknown [id number] 2.16.840.1.296441.3.579.2.59 1993 Unknown [id number] 2.16.840.1.068924.3.579.2.593 1993 Unknown [id number] 2.16.840.1.093004.3.579.2.593 1993 Unknown [id number] 2.16.840.1.826346.3.579.2.593 1993 Unknown [id number] 2.16.840.1.378861.3.579.2.593 1993 Unknown [id number] 2.16.840.1.674540.3.579.2.593 1993 Unknown [id number] 2.16.840.1.017764.3.579.2.593 1993 Unknown [id number] 2.16.840.1.109778.3.579.2.593 1993 Unknown [id number] 2.16.840.1.771416.3.579.2.593 1993 Unknown [id number] 2.16.840.1.870283.3.579.2.593 1993 Unknown [id number] 2.16.840.1.065146.3.579.2.593 1993 Unknown [id number] 2.16.840.1.564534.3.579.2.593 1993 Unknown [id number] 2.16.840.1.544184.3.579.2.593 1993 Unknown [id number] 2.16.840.1.034990.3.579.2.593 1993 Unknown [id number] 2.16.840.1.745404.3.579.2.59 1993 Unknown [id number] 2.16.840.1.613357.3.579.2.593 1993 Unknown [id number] 2.16.840.1.757474.3.579.2.593 1993 Unknown [id number] 2.16.840.1.911251.3.579.2.593 1993 Unknown [id number] 2.16.840.1.405509.3.579.2.593 1993 Unknown [id number] 2.16.840.1.729760.3.579.2.593 1993 Unknown [id number] 2.16.840.1.993998.3.579.2.593 1993 Unknown [id number] 2.16.840.1.431996.3.579.2.1259 1993 Unknown [id number] 2.16.840.1.064876.3.579.2.1259 1993 Unknown [id number] 2.16.840.1.579704.3.579.2.1259 1993 Unknown [id number] 2.16.840.1.314929.3.579.2.1259 1959 Unknown [id number] 1959 Unknown [id number] Unknown [id number] 2.16. 840.1.298459.19 Social History Date Type Detail Facility Unknown if ever smoked [facility] Other Start: 01-28-2023 Sex Assigned At [facility] Start: 01-28-2023 Tobacco smoking status NHIS Never smoked tobacco [facility] Start: 05-10-2023 Alcohol intake Current drinker of alcohol (finding) [facility] Start: 01-28-2023 History of Social function [facility] How often to you hav e a drink containing alcohol? 2-4 times a month [facility] How many standard drinks containing alcohol do you have on a typical day? 1 or 2 [facility] How often do you hav e 6 or more drinks on 1 occasion? Weekly [facility] Start: 01-28-2023 Alcohol Comment caffeine: occasional [facility] Start: 11-26-2022 [facility] Start: 1995 Sex Assigned At Female [facility] Start: 11-22-2022 Gender identity Identifies as female gender (finding) [facility] Start: 11-22-2022 Sexual orientation Heterosexual (finding) [facility] History of Present illness Narrative 05-10-2023 Melissa Thornton LPN - 05/10/2023 2:50 PM EST Note Date & Type Note Facility 05-10-2023 History of Presen t illness Narrative Reason for Appointment: Patient ID: Ester Macias is a 27 y.o. female who presents for Routine Visit Patient presents today for Return OB appointment. Current Medications: has a current medication list which includes the following prescription(s): bupropion xl, emgality, levofloxacin, magnesium oxide, metformin (osm), ondansetron, promethazine, and sumatriptan. Medical History: Active Ambulatory Problems Diagnosis Date Noted No Active Ambulatory Problems Resolved Ambulatory Problems Diagnosis Date Noted No Resolved Ambulatory Problems Past Medical History: Diagnosis Date Anxiety Cyst of right ovary Depression (CMS/HCC) Endometriosis History of miscarriage Hormone imbalance IBS (irritable bowel syndrome) Pain of ovary Family History Problem Relation Name Age of Onset Breast cancer Mother Lung cancer Maternal Grandfather Social History Tobacco Use Smoking status: Never Smokeless tobacco: Not on file Substance Use Topics Alcohol use: Yes Comment: caffeine: occasional Drug use: Never Past Surgical History: Procedure Laterality Date COLONOSCOPY 2017 DILATION AND CURETTAGE OF UTERUS LAPAROSCOPY DIAGNOSTIC / BIOPSY / ASPIRATION / LYSIS TONSILLECTOMY XR HYSTEROSALPINGOGRAM Bilateral No Known Allergies Review of Systems: Review of Systems Constitutional: Negative. HENT: Negative. Eyes: Negative. Respiratory: Negative. Cardiovascular: Negative. Gastrointestinal: Negative. Genitourinary: Negative. Musculoskeletal: Negative. Skin: Negative. Neurological: Negative. All other systems reviewed and are negative. Hematological: Negative. Endocrine: Negative. Allergic/Immunologic: Negative. Objective Physical Exam Constitutional: Appearance: Normal appearance. She is well-developed. Cardiovascular: Rate and Rhythm: Normal rate and regular rhythm. Pulmonary: Effort: Pulmonary effort is normal. Breath sounds: Normal breath sounds. Abdominal: General: Bowel sounds are normal. There is no distension. Palpations: Abdomen is soft. Tenderness: There is no abdominal tenderness. There is no guarding or rebound. Musculoskeletal: General: No swelling. Normal range of motion. Right lower leg: No edema. Left lower leg: No edema. Neurological: Mental Status: She is alert and oriented to person, place, and time. Skin: General: Skin is warm and dry. Psychiatric: Mood and Affect: Mood normal. Behavior: Behavior normal. Vitals and nursing note reviewed. Exam conducted with a barrel maker present. Vitals: Estimated body mass index is 30.04 kg/m as calculated from the following: Height as of 11/23/22: 5' 1 . Weight as of this encounter: 159 lb. BP: 110/70 Patient's last menstrual period was 11/12/2022. Assessment/Plan Encounter Diagnoses Name Primary? Second trimester Diabetes mellitus screening Patient presents today for a routine obstetrics appointment. Patient is currently 25w4d . Patient states she is doing well but has complaints of being tired due to current . Patient has verbalizes frequent movement. labor precautions was discussed/given and patient was instructed to perform kick counts three times a day. Pt given glucola order with instructions Follow Up: Patient is to return to office in 2 week for routine OB appointment. Documented by Melissa Thornton LPN on behalf of: Ricardo Rodriguez DO documented in this encounter [facility] Clinical Note 07-08-2022 Note Date & Type Note Facility 07-08-2022 Note OPERATIVE NOTE OPERATION DATE: 07/08/2022 PROCEDURE: Diagnostic laparoscopy with fulguration of ovarian endometrial implant. PREOPERATIVE DIAGNOSIS: Pelvic pain. POSTOPERATIVE DIAGNOSIS: Pelvic pain. ANESTHESIA: General. SURGEON: Ricardo Rodriguez D.O. MENTAL TELEPATHIST: DEVIN Miles URINE OUTPUT: Yellow and clear. [...] to Recovery Room in stable condition. [facility] Evaluation note 12-22-2020 Note Date & Type Note Facility 12-22-2020 Evaluation note Encounter Date Diagnosis Assessment Notes Nov, Irritable bowel syndrome with both constipation and diarrhea (ICD-10 - K58.2) LABS INDICATED ABOVE START TRIAL OF DICYCLOMINE 20 BID RTO 4 WEEKS [facility] Other Evaluation note Note Date & Type Note Facility Evaluation note [facility] Other Evaluation note Note Date & Type Note Facility Evaluation note Diagnosis Second trimester state, incidental Diabetes mellitus screening Screening for diabetes mellitus documented in this encounter [facility] History general Narrative - Reported Note Date & Type Note Facility History general Narrative - Reported Type Medical History anxiety/depression Medical History IBS Surgical History TONSILLECTOMY [facility] Other History general Narrative - Reported Note Date & Type Note Facility History general Narrative - Reported [facility] Other Summary Purpose Family History No Family History Records FoundNo Family History Records Found Advance Directives No Advanced Directives Records FoundNo Advanced Directives Records Found Additional Source Comments REASON FOR VISIT (unrecogniz ed section and content) Reason Comments Routine Visit INFORMATION SOURCE (unrecogn ized section and content) DATE CREATED AUTHOR 07/13/2022 [facility] DATE CREATED AUTHOR AUTHOR'S ORGANIZ ATION 05/12/2023 [facility] EPIC Care Teams (unrecognized sec tion and content) Cabinetmaker Supervisor Relationship Specialty Start Date End Date Iron Garcia MD [address] [place] [address] PCP - General Family Medicine 11/23/22 FOR RECORDS PERTAINING TO PATIENTS WHO ARE [...] BE BASED ON THE PRIMARY CLINICAL RECORDS. [facility] [employer] [facility]. provides no warranty or guarantee of the accuracy or completeness of information in this document.
--- OUTSIDE RECORDS SUMMARY | 2023-05-24 08:34 | XMS_ITS | CCD ---
Author Name Unknown Address [address] [place] [address] Organization [facility] Care Team Providers Care Visual Basic Programmer Name Role Phone Lydia Dudley Unavailable Mohini [...] Unavailable HOY ., DR PERDUE Consulting Unavailable [place], DR DUDLEY Emanuel Consulting Unavailable JENNIFER ., [...] HOY ., DR PERDUE Primary Care Unavailable JNENIFER ., DR SILVA Consulting Unavailable HOY ., [...] Unavailable Iron Garcia MD Primary Care Provider [phone] Medications Current Medications Medication Drug Class(es) Dates Sig (Normalized) Sig (Original) [id number] 200 actuat albuterol 0.09 mg/actuat metered dose [...] UA Negative Negative - 4(70) +++ mg/dL [facility] Blood, UA Negative Negative - 50 Jayson/mcL [facility] Clarity, UA Clear [facility] Color, UA Yellow [facility] Glucose, UA Negative Negative - 1999(110) ++++ mg/dL [facility] Interpretation and review of laboratory results Abnormal [facility] Ketones, UA Positive Negative - 160(16) ++++ mg/dL [facility] Comment on above: trace Leukocytes, UA Trace Negative - 500+++ Lolita/mcL [facility] Nitrite, UA Negative Negative - Positive [facility] pH, UA 6.0 5 - 9 [facility] Protein, UA Negative Negative - 1999(20) ++++ mg/dL [facility] Spec Grav, UA 1.030 1 - 1.03 [facility] Urobilinogen, UA 0.2 0.2 - 12 mg/dL [facility] CBC AUTO DIFFon 07-08-2022 BASO # 0.0 103/ul Normal 0.0-0.1 [facility] Comment on above: Performed By: #### R F #### [facility] [address] [address] [address] Venkat Sloan Basophils/100 WBC (Bld) 0.5 % Normal 0.2-2.0 [facility] Comment on above: Performed By: #### R F #### [facility] [address] [address] [address] Venkat Sloan EO # 0.1 103/ul Normal 0.0-0.7 [facility] Comment on above: Performed By: #### R F #### [facility] [address] [address] [address] Venkat Sloan Eosinophils/100 WBC (Bld) 1.7 % Normal 0.9-7.0 [facility] Comment on above: Performed By: #### R F #### [facility] [address] [address] [address] Venkat Sloan Erythrocyte distribution width (RBC) [Ratio] 12.7 % Normal 11.0-15.0 [facility] Comment on above: Performed By: #### R F #### [facility] [address] [address] [address] Venkat Sloan Hematocrit (Bld) [Volume fraction] 40.4 % Normal 36.0-48.0 [facility] Comment on above: Performed By: #### R F #### [facility] [address] [address] [address] Venkat Sloan Hemoglobin (Bld) [Mass/Vol] 13.1 g/dL Normal 12.0-16.0 [facility] Comment on above: Performed By: #### R F #### [facility] [address] [address] [address] Venkat Sloan IG # 0.02 10e3/ul Normal 0.00-0.03 [facility] Comment on above: Performed By: #### R F #### [facility] [address] [place] [address] Dr. Venkat Sloan IG % 0.3 % Normal 0.0-0.5 [facility] Comment on above: Performed By: #### R F #### [facility] [address] [place] [address] Dr. Venkat Sloan LYMPH # 2.0 103/ul Normal 1.2-3.8 [facility] Comment on above: Performed By: #### R F #### [facility] [address] [place] [address] Dr. Venkat Sloan Lymphocytes/100 WBC (Bld) 26.2 % Normal 20.5-60.0 [facility] Comment on above: Performed By: #### R F #### [facility] [address] [place] [address] Dr. Venkat Sloan MANUAL DIFF REQ NO Normal [facility] Comment on above: Performed By: #### R F #### [facility] [address] [place] [address] Dr. Venkat Sloan MCH (RBC) [Entitic mass] 28.4 pg Normal 26.7-34.0 [facility] Comment on above: Performed By: #### R F #### [facility] [address] [place] [address] Dr. Venkat Sloan MCHC (RBC) [Mass/Vol] 32.4 g/dL Normal 29.9-35.2 [facility] Comment on above: Performed By: #### R F #### [facility] [address] [place] [address] Dr. Venkat Sloan MCV (RBC) [Entitic vol] 87.4 fL Normal 81.0-99.0 [facility] Comment on above: Performed By: #### R F #### [facility] [address] [place] [address] Dr. Venkat Sloan MONO # 0.7 103/ul Normal 0.3-0.8 [facility] Comment on above: Performed By: #### R F #### [facility] [address] [place] [address] Dr. Venkat Sloan Monocytes/100 WBC (Bld) 8.8 % Normal 1.7-12.0 [facility] Comment on above: Performed By: #### R F #### [facility] [address] [place] [address] Dr. Venkat Sloan NEUT # 4.8 103/ul Normal 1.4-6.5 [facility] Comment on above: Performed By: #### R F #### [facility] [address] [place] [address] Dr. Venkat Sloan Neutrophils/100 WBC (Bld) 62.5 % Normal 43.0-75.0 [facility] Comment on above: Performed By: #### R F #### [facility] [address] [place] [address] Dr. Venkat Sloan Platelet mean volume (Bld) [Entitic vol] 8.5 fL Critically low 9.5-13.5 [facility] Comment on above: Performed By: #### R F #### [facility] [address] [place] [address] Dr. Venkat Sloan PLT 331 103/ul Normal 150-450 [facility] Comment on above: Performed By: #### R F #### [facility] [address] [place] [address] Dr. Venkat Sloan RBC 4.62 106/ul Normal 4.20-5.40 [facility] Comment on above: Performed By: #### R F #### [facility] [address] [place] [address] Dr. Venkat Sloan WBC 7.7 103/ul Normal 4.0-11.0 [facility] Comment on above: Performed By: #### R F #### [facility] [address] [place] [address] Dr. Venkat Sloan PREG QUANT HCGon 07-08-2022 HCG QUANT <1 Normal [facility] Comment on above: Performed By: #### P REGQNT #### [facility] [address] [place] [address] Dr. Venkat Sloan HCG RANGE SEE BELOW Normal [facility] Comment on above: Result Comment: 5-50 0.2-1 WEEK 50-500 1-2 WEEKS 100-5,000 2-3 WEEKS 500-10,000 3-4 WEEKS 1,000-50,000 4-5 WEEKS 10,000-100,000 5-6 WEEKS 15,000-200,000 6-8 WEEKS 10,000-100,000 2-3 MONTHS Performed By: #### P REGQNT #### [facility] [address] [place] [address] Dr. Venkat Sloan PROGESTERONEon 06-23-2022 Progesterone 5.7 ng/mL Normal [facility] Comment on above: Result Comment: Foll icular phase 0.1 - 0.9 Luteal phase 1.8 - 23.9 Ovulation phase 0.1 - 12.0 First trimester 11.0 - 44.3 Second trimester 25.4 - 83.3 Third trimester 58.7 - 214.0 Postmenopausal 0.0 - 0.1 Performed By: #### T SH #### [facility] [address] [place] [address] Dr. Venkat Sloan PREG QUANT HCGon 05-31-2022 HCG QUANT 1 mIU/mL Normal [facility] Comment on above: Performed By: #### P REGQNT #### [facility] [address] [place] [address] Dr. Venkat Sloan HCG RANGE SEE BELOW Normal [facility] Comment on above: Result Comment: 5-50 0.2-1 WEEK 50-500 1-2 WEEKS 100-5,000 2-3 WEEKS 500-10,000 3-4 WEEKS 1,000-50,000 4-5 WEEKS 10,000-100,000 5-6 WEEKS 15,000-200,000 6-8 WEEKS 10,000-100,000 2-3 MONTHS Performed By: #### P REGQNT #### [facility] [address] [place] [address] Dr. Venkat Sloan PROGESTERONEon 05-21-2022 Progesterone 12.4 ng/mL Normal [facility] Comment on above: Result Comment: Foll icular phase 0.1 - 0.9 Luteal phase 1.8 - 23.9 Ovulation phase 0.1 - 12.0 First trimester 11.0 - 44.3 Second trimester 25.4 - 83.3 Third trimester 58.7 - 214.0 Postmenopausal 0.0 - 0.1 Performed By: #### I NFLUAB #### [facility] [address] [place] [address] Dr. Venkat Sloan MRI BRAIN WO W [...] LAM VELA Date: 2022-05-04 08:42 Normal [facility] PREG QUANT HCGon 05-04-2022 HCG QUANT <1 Normal [facility] Comment on above: Performed By: #### R F #### [facility] [address] [place] [address] Dr. Venkat Sloan HCG RANGE SEE BELOW Normal [facility] Comment on above: Result Comment: 5-50 0.2-1 WEEK 50-500 1-2 WEEKS 100-5,000 2-3 WEEKS 500-10,000 3-4 WEEKS 1,000-50,000 4-5 WEEKS 10,000-100,000 5-6 WEEKS 15,000-200,000 6-8 WEEKS 10,000-100,000 2-3 MONTHS Performed By: #### R F #### [facility] [address] [place] [address] Dr. Venkat Sloan XR HYSTEROSALPINGOGRAMon XR HYSTEROSALPINGOGRAM [...] by: LAM VELA Date: 2022-05-04 16:09 Normal [facility] PROGESTERONEon 04-24-2022 Progesterone 0.4 ng/mL Normal [facility] Comment on above: Result Comment: Foll icular phase 0.1 - 0.9 Luteal phase 1.8 - 23.9 Ovulation phase 0.1 - 12.0 First trimester 11.0 - 44.3 Second trimester 25.4 - 83.3 Third trimester 58.7 - 214.0 Postmenopausal 0.0 - 0.1 Performed By: #### I NFLUAB #### [facility] [address] [place] [address] Dr. Venkat Sloan CULTURE SPUTUMon 04-02-2022 CULTURE SPUTUM Culture Observations : NORMAL RESPIRATORY NATALEE. Normal [facility] Comment on above: Performed By: #### R F #### [facility] [address] [place] [address] Dr. Venkat Sloan SPUTUM GRAM STAINon 04-02-19 23 COMMENTS Normal [facility] Comment on above: Performed By: #### R F #### [facility] [address] [address] [address] Venkat Sloan DIPHTHEROIDS Normal [facility] Comment on above: Performed By: #### R F #### [facility] [address] [place] [address] Dr. Venkat Sloan EPITHELIALS <25 Normal [facility] Comment on above: Performed By: #### R F #### [facility] [address] [address] [address] Venkat Sloan FUNGAL ELEMENTS Normal [facility] Comment on above: Performed By: #### R F #### [facility] [address] [address] [address] Venkat Sloan GRAM NEG BACILLI RARE Normal [facility] Comment on above: Performed By: #### R F #### [facility] [address] [address] [address] Venkat MORGAN NEG DIPPLOCOCCI Normal [facility] Comment on above: Performed By: #### R F #### [facility] [address] [place] [address] Dr. Venkat Sloan GRAM POS BACILLI Normal [facility] Comment on above: Performed By: #### R F #### [facility] [address] [place] [address] Dr. Venkat Sloan GRAM POSITIVE COCCI RARE Normal [facility] Comment on above: Performed By: #### R F #### [facility] [address] [place] [address] Dr. Venkat Sloan WBC (Bld) [#/Vol] 10*3/uL Normal [facility] Comment on above: Performed By: #### R F #### [facility] [address] [place] [address] Dr. Venkat Sloan Covid-19 PCR (CVDTB)on SARS-CoV-2 (COVID-19) RNA SHIRIN+probe Ql (Unsp spec) Not detected Normal NOT DETECTED [facility] Comment on above: Result Comment: This test is not yet approved or cleared by the [place] FDA. When there are no FDA-approved or cleared tests available, and other criteria are met, FDA can make tests available under an emergency access mechanism called an Emergency Use Authorization (EUA). The EUA for this test is supported by the [place] of Health and Human Service's (HHS's) declaration [...] SARS-CoV-2. Performed By: #### P REGQNT #### [facility] [address] [place] [address] Dr. Venkat Sloan INFLUENZA A [facility] B [facility]on [facility] Normal [facility] Comment on above: Result Comment: Nega tive for Flu A protein angiten. Infection due to Flu A cannot be ruled out. Flu A angiten in the sample may be below the detection limit of the test. Performed By: #### I NFLUAB #### [facility] [address] [place] [address] Dr. Venkat Sloan INFLUBNEGH SEE BELOW Normal [facility] Comment on above: Result Comment: Nega tive for Flu B protein antigen. Infection due to Flu B cannot be ruled out. Flu B antigen in the sample may be below the detection limit of the test. Performed By: #### I NFLUAB #### [facility] [address] [place] [address] Dr. Venkat Sloan INFLUENZA A AG Negative Normal NEGATIVE SEE COMMENT [facility] Comment on above: Performed By: #### I NFLUAB #### [facility] [address] [place] [address] Dr. Venkat Sloan INFLUENZA B AG Negative Normal NEGATIVE SEE COMMENT [facility] Comment on above: Performed By: #### I NFLUAB #### [facility] [address] [place] [address] Dr. Venkat Sloan XR CHEST 2 Von [...] [address] Date: 2022-03-24 12:33 Normal [facility] SARS-CoV-2 (COVID-19) RNA SHIRIN+probe Ql (Unsp spec) Not detected Normal NOT DETECTED [facility] Comment on above: Result Comment: When [...] for this test is supported by the [place] of Health and Human Service's declaration that [...] used). Performed By: #### R F #### [facility] [address] [place] [address] Dr. Venkat Sloan INFLUENZA A AND B AGon 03-15 [facility] SEE BELOW Normal [facility] Comment on above: Result Comment: Nega tive for Flu A protein angiten. Infection due to Flu A cannot be ruled out. Flu A angiten in the sample may be below the detection limit of the test. Performed By: #### I NFLUAB #### [facility] [address] [address] [address] [facility] Normal [facility] Comment on above: Result Comment: Nega tive for Flu B protein antigen. Infection due to Flu B cannot be ruled out. Flu B antigen in the sample may be below the detection limit of the test. Performed By: #### I NFLUAB #### [facility] [address] [place] [address] Dr. Venkat Sloan INFLUENZA A AG Negative Normal NEGATIVE SEE COMMENT [facility] Comment on above: Performed By: #### I NFLUAB #### [facility] [address] [place] [address] Dr. Venkat Sloan INFLUENZA B AG Negative Normal NEGATIVE SEE COMMENT [facility] Comment on above: Performed By: #### I NFLUAB #### [facility] [address] [address] [address] Venkat Sloan INTERNAL CONTROLS Within Normal Limits Normal Wi thin Normal Limits [facility] Comment on above: Performed By: #### I NFLUAB #### [facility] [address] [address] [address] Venkat Sloan Covid-19 PCR ([facility])on 02-25 SARS-CoV-2 (COVID-19) RNA SHIRIN+probe Ql (Unsp spec) Not detected Normal NOT DETECTED [facility] Comment on above: Result Comment: When [...] for this test is supported by the Reagent Tender of Health and Human Service's declaration that [...] used). Performed By: #### I NFLUAB #### [facility] [address] [place] [address] Dr. Venkat Sloan INFLUENZA A AND B AGon 03-12 INFLUANEGH SEE BELOW Normal [facility] Comment on above: Result Comment: Nega tive for Flu A protein angiten. Infection due to Flu A cannot be ruled out. Flu A angiten in the sample may be below the detection limit of the test. Performed By: #### I NFLUAB #### [facility] [address] [place] [address] Dr. Venkat Sloan [facility] SEE BELOW Normal [facility] Comment on above: Result Comment: Nega tive for Flu B protein antigen. Infection due to Flu B cannot be ruled out. Flu B antigen in the sample may be below the detection limit of the test. Performed By: #### I NFLUAB #### [facility] [address] [place] [address] Dr. Venkat Sloan INFLUENZA A AG Negative Normal NEGATIVE SEE COMMENT [facility] Comment on above: Performed By: #### I NFLUAB #### [facility] [address] [place] [address] Dr. Venkat Sloan INFLUENZA B AG Negative Normal NEGATIVE SEE COMMENT [facility] Comment on above: Performed By: #### I NFLUAB #### [facility] [address] [place] [address] Dr. Venkat Sloan INTERNAL CONTROLS Within Normal Limits Normal Wi thin Normal Limits [facility] Comment on above: Performed By: #### I NFLUAB #### [facility] [address] [place] [address] Dr. Venkat Sloan PROGESTERONEon 02-20-2022 Progesterone 0.3 ng/mL Normal [facility] Comment on above: Result Comment: Foll icular phase 0.1 - 0.9 Luteal phase 1.8 - 23.9 Ovulation phase 0.1 - 12.0 First trimester 11.0 - 44.3 Second trimester 25.4 - 83.3 Third trimester 58.7 - 214.0 Postmenopausal 0.0 - 0.1 Performed By: #### R F #### [facility] [address] [place] [address] Dr. Venkat Sloan ACTH STIMULATIONon 2 Andros Baseline 49 ng/dL Normal 41-[address] [facility] Comment on above: Performed By: #### R F #### [facility] [address] [place] [address] Dr. Venkat Sloan Andros Stimulated 82 ng/dL Normal Not Estab. [facility] Comment on above: Performed By: #### R F #### [facility] [address] [address] [address] Venkat Sloan Covid-19 PCR ([facility])on 01-26 SARS-CoV-2 (COVID-19) RNA SHIRIN+probe Ql (Unsp spec) Not detected Normal NOT DETECTED [facility] Comment on above: Result Comment: This test is not yet approved or cleared by the [place] FDA. When there are no FDA-approved or cleared tests available, and other criteria are met, FDA can make tests available under an emergency access mechanism called an Emergency Use Authorization (EUA). The EUA for this test is supported by the Reagent Tender of Health and Human Service's (HHS's) declaration [...] SARS-CoV-2. Performed By: #### I NFLUAB #### [facility] [address] [place] [address] Dr. Venkat Sloan INFLUENZA A AND B AGon 02-10 [facility] SEE BELOW Normal [facility] Comment on above: Result Comment: Nega tive for Flu A protein angiten. Infection due to Flu A cannot be ruled out. Flu A angiten in the sample may be below the detection limit of the test. Performed By: #### P REGQNT #### [facility] [address] [place] [address] Dr. Venkat Sloan INFLUBNEG SEE BELOW Normal [facility] Comment on above: Result Comment: Nega tive for Flu B protein antigen. Infection due to Flu B cannot be ruled out. Flu B antigen in the sample may be below the detection limit of the test. Performed By: #### P REGQNT #### [facility] [address] [address] [address] Venkat Sloan INFLUENZA A AG Negative Normal NEGATIVE SEE COMMENT [facility] Comment on above: Performed By: #### P REGQNT #### [facility] [address] [address] [address] Venkat Sloan INFLUENZA B AG Negative Normal NEGATIVE SEE COMMENT [facility] Comment on above: Performed By: #### P REGQNT #### [facility] [address] [address] [address] Venkat Sloan INTERNAL CONTROLS Within Normal Limits Normal Wi thin Normal Limits [facility] Comment on above: Performed By: #### P REGQNT #### [facility] [address] [address] [address] Venkat Sloan DHEA SERUMon 01-19-2022 Dehydroepiandrosterone (DHEA) 82 ng/dL Normal 31-701 [facility] Comment on above: Result Comment: Age [...] 89 Performed By: #### T SH #### [facility] [address] [address] [address] Venkat Sloan DHEA-SULFATEon 01-14-2022 DHEA-Sulfate 34.0 ug/dL Critically low 84.8-378.0 [facility] Comment on above: Performed By: #### R F #### [facility] [address] [address] [address] Venkat Sloan FSHon 01-14-2022 FSH 2.2 mIU/mL Normal [facility] Comment on above: Result Comment: Adul t Female: Follicular phase 3.5 - 12.5 Ovulation phase 4.7 - 21.5 Luteal phase 1.7 - 7.7 Postmenopausal 25.8 - 134.8 Performed By: #### L BCFSH #### [facility] [address] [address] [address] Venkat Sloan LUTEINIZING HORMONE (LH)on LH 5.1 mIU/mL Normal [facility] Comment on above: Result Comment: Adul t Female: Follicular phase 2.4 - 12.6 Ovulation phase 14.0 - 95.6 Luteal phase 1.0 - 11.4 Postmenopausal 7.7 - 58.5 Performed By: #### I NFLUAB #### [facility] [address] [place] [address] Dr. Venkat Sloan PROLACTINon 01-14-2022 Prolactin 8.0 ng/mL Normal 4.8-23.3 [facility] Comment on above: Performed By: #### P ROLAC #### [facility] [address] [place] [address] Dr. Venkat Sloan CBC AUTO DIFFon 01-13-2022 BASO # 0.0 103/ul Normal 0.0-0.1 [facility] Comment on above: Performed By: #### T SH #### [facility] [address] [place] [address] Dr. Venkat Sloan Basophils/100 WBC (Bld) 0.4 % Normal 0.2-2.0 [facility] Comment on above: Performed By: #### T SH #### [facility] [address] [place] [address] Dr. Venkat Sloan EO # 0.1 103/ul Normal 0.0-0.7 [facility] Comment on above: Performed By: #### T SH #### [facility] [address] [place] [address] Dr. Venkat Sloan Eosinophils/100 WBC (Bld) 1.2 % Normal 0.9-7.0 [facility] Comment on above: Performed By: #### T SH #### [facility] [address] [place] [address] Dr. Venkat Sloan Erythrocyte distribution width (RBC) [Ratio] 12.7 % Normal 11.0-15.0 [facility] Comment on above: Performed By: #### T SH #### [facility] [address] [place] [address] Dr. Venkat Sloan Hematocrit (Bld) [Volume fraction] 41.1 % Normal 36.0-48.0 [facility] Comment on above: Performed By: #### T SH #### [facility] [address] [place] [address] Dr. Venkat Sloan Hemoglobin (Bld) [Mass/Vol] 13.1 g/dL Normal 12.0-16.0 [facility] Comment on above: Performed By: #### T SH #### [facility] [address] [place] [address] Dr. Venkat Sloan IG # 0.03 10e3/ul Normal 0.00-0.03 [facility] Comment on above: Performed By: #### T SH #### [facility] [address] [place] [address] Dr. Venkat Sloan IG % 0.3 % Normal 0.0-0.5 [facility] Comment on above: Performed By: #### T SH #### [facility] [address] [place] [address] Dr. Venkat Sloan LYMPH # 1.6 103/ul Normal 1.2-3.8 [facility] Comment on above: Performed By: #### T SH #### [facility] [address] [place] [address] Dr. Venkat Sloan Lymphocytes/100 WBC (Bld) 15.0 % Critically low 20.5-60.0 [facility] Comment on above: Performed By: #### T SH #### [facility] [address] [place] [address] Dr. Venkat Sloan MANUAL DIFF REQ NO Normal [facility] Comment on above: Performed By: #### T SH #### [facility] [address] [place] [address] Dr. Venkat Sloan MCH (RBC) [Entitic mass] 28.5 pg Normal 26.7-34.0 [facility] Comment on above: Performed By: #### T SH #### [facility] [address] [place] [address] Dr. Venkat Sloan MCHC (RBC) [Mass/Vol] 31.9 g/dL Normal 29.9-35.2 [facility] Comment on above: Performed By: #### T SH #### [facility] [address] [place] [address] Dr. Venkat Sloan MCV (RBC) [Entitic vol] 89.3 fL Normal 81.0-99.0 [facility] Comment on above: Performed By: #### T SH #### [facility] [address] [place] [address] Dr. Venkat Sloan MONO # 0.9 103/ul Critically high 0.3-0.8 [facility] Comment on above: Performed By: #### T SH #### [facility] [address] [place] [address] Dr. Venkat Sloan Monocytes/100 WBC (Bld) 8.8 % Normal 1.7-12.0 [facility] Comment on above: Performed By: #### T SH #### [facility] [address] [place] [address] Dr. Venkat Sloan NEUT # 7.9 103/ul Critically high 1.4-6.5 [facility] Comment on above: Performed By: #### T SH #### [facility] [address] [place] [address] Dr. Venkat Sloan Neutrophils/100 WBC (Bld) 74.3 % Normal 43.0-75.0 [facility] Comment on above: Performed By: #### T SH #### [facility] [address] [place] [address] Dr. Venkat Sloan Platelet mean volume (Bld) [Entitic vol] 9.2 fL Critically low 9.5-13.5 [facility] Comment on above: Performed By: #### T SH #### [facility] [address] [place] [address] Dr. Venkat Sloan PLT 300 103/ul Normal 150-450 [facility] Comment on above: Performed By: #### T SH #### [facility] [address] [place] [address] Dr. Venkat Sloan RBC 4.60 106/ul Normal 4.20-5.40 [facility] Comment on above: Performed By: #### T SH #### [facility] [address] [address] [address] Venkat Sloan WBC 10.7 103/ul Normal 4.0-11.0 [facility] Comment on above: Performed By: #### T SH #### [facility] [address] [place] [address] Dr. Venkat Sloan GLYCOHEMOGLOBIN A1Con 2021 ADA RECOMMENDATION SEE BELOW Normal [facility] Comment on above: Result Comment: ADA RECOMMENDED LIMIT 4.0 - 6.0 ADA THERAPEUTIC TARGET < 7.0 ACTION SUGGESTED > 7.0 Performed By: #### P REGQNT #### [facility] [address] [place] [address] Dr. Venkat Sloan Glucose [Mass/Vol] 100 mg/dL Normal [facility] Comment on above: Performed By: #### P REGQNT #### [facility] [address] [place] [address] Dr. Venkat Sloan HbA1c (Bld) [Mass fraction] 5.1 % Normal 4.5-6.2 [facility] Comment on above: Performed By: #### P REGQNT #### [facility] [address] [place] [address] Dr. Venkat Sloan TSHon 01-13-2022 TSH 1.098 uIU/mL Normal 0.358-3.740 [facility] Comment on above: Performed By: #### T SH #### [facility] [address] [place] [address] Dr. Venkat Sloan Covid-19 PCR (CVDTB)on 12-26 SARS-CoV-2 (COVID-19) RNA SHIRIN+probe Ql (Unsp spec) Not detected Normal NOT DETECTED [facility] Comment on above: Result Comment: This test is not yet approved or cleared by the [place] FDA. When there are no FDA-approved or cleared tests available, and other criteria are met, FDA can make tests available under an emergency access mechanism called an Emergency Use Authorization (EUA). The EUA for this test is supported by the [place] of Health and Human Service's (HHS's) declaration [...] SARS-CoV-2. Performed By: #### I NFLUAB #### [facility] [address] [place] [address] Dr. Venkat Sloan PREG QUANT HCGon 12-24-2021 HCG QUANT <1 Normal [facility] Comment on above: Performed By: #### P REGQNT #### [facility] [address] [place] [address] Dr. Venkat Sloan HCG RANGE SEE BELOW Normal [facility] Comment on above: Result Comment: 5-50 0.2-1 WEEK 50-500 1-2 WEEKS 100-5,000 2-3 WEEKS 500-10,000 3-4 WEEKS 1,000-50,000 4-5 WEEKS 10,000-100,000 5-6 WEEKS 15,000-200,000 6-8 WEEKS 10,000-100,000 2-3 MONTHS Performed By: #### P REGQNT #### [facility] [address] [place] [address] Dr. Venkat Sloan HCG-BETA SUBUNIT QUANTon hCG,Beta Subunit,Qnt,Serum <1 Normal [facility] Comment on above: Result Comment: Fema le (Non-) 0 - 5 (Postmenopausal) 0 - 8 . Female () Weeks of Gestation 3 6 - 71 4 10 - 750 5 262 - 6887 6 063 - 42850 7 5253 -[id number] 8 08364 -631479 9 24064 -758991 10 66265 -090593 12 80590 -106729 14 36240 - 33401 15 29683 - 42279 16 1992 - 93007 17 9868 - 09795 18 2867 - 66393 Aj ECLIA methodology Performed By: #### T SH #### [facility] [address] [place] [address] Dr. Venkat Sloan BRETT by IFAon 09-29-2021 Antinuclear Antibodies, IFA Negative Normal [facility] Comment on above: Result Comment: Nega tive <1:80 Borderline 1:80 Positive >1:80 ICAP nomenclature: AC-0 For more information about Hep-2 cell patterns use ANApatterns.org, the official website for the International Consensus on Antinuclear Antibody (BRETT) Patterns (ICAP). Performed By: #### A NAIFA #### [facility] [address] [place] [address] Dr. Venkat Sloan INSULINon 09-29-2021 Insulin 11.1 uIU/mL Normal 2.6-24.9 [facility] Comment on above: Performed By: #### T SH #### [facility] [address] [place] [address] Dr. Venkat Sloan ANTISTREPTOLYSIN O AB (ASO)o n 09-27-2021 Antistreptolysin O Ab <20.0 Normal 0.0-200.0 [facility] Comment on above: Performed By: #### P REGQNT #### [facility] [address] [place] [address] Dr. Venkat Sloan RHEUMATOID FACTORon 09-28-19 RA Latex Turbid. <10.0 Normal <14.0 [facility] Comment on above: Performed By: #### R F #### [facility] [address] [place] [address] Dr. Venkat Sloan CBC AUTO DIFFon 09-26-2021 BASO # 0.0 103/ul Normal 0.0-0.1 [facility] Comment on above: Performed By: #### T SH #### [facility] [address] [place] [address] Dr. Venkat Sloan Basophils/100 WBC (Bld) 0.3 % Normal 0.2-2.0 [facility] Comment on above: Performed By: #### T SH #### [facility] [address] [place] [address] Dr. Venkat Sloan EO # 0.1 103/ul Normal 0.0-0.7 [facility] Comment on above: Performed By: #### T SH #### [facility] [address] [place] [address] Dr. Venkat Sloan Eosinophils/100 WBC (Bld) 1.8 % Normal 0.9-7.0 [facility] Comment on above: Performed By: #### T SH #### [facility] [address] [place] [address] Dr. Venkat lSoan Erythrocyte distribution width (RBC) [Ratio] 12.9 % Normal 11.0-15.0 [facility] Comment on above: Performed By: #### T SH #### [facility] [address] [place] [address] Dr. Venkat Sloan Hematocrit (Bld) [Volume fraction] 39.8 % Normal 36.0-48.0 [facility] Comment on above: Performed By: #### T SH #### [facility] [address] [place] [address] Dr. Venkat Sloan Hemoglobin (Bld) [Mass/Vol] 12.7 g/dL Normal 12.0-16.0 [facility] Comment on above: Performed By: #### T SH #### [facility] [address] [place] [address] Dr. Venkat Sloan IG # 0.02 10e3/ul Normal 0.00-0.03 [facility] Comment on above: Performed By: #### T SH #### [facility] [address] [place] [address] Dr. Venkat Sloan IG % 0.3 % Normal 0.0-0.5 [facility] Comment on above: Performed By: #### T SH #### [facility] [address] [place] [address] Dr. Venkat Sloan LYMPH # 1.5 103/ul Normal 1.2-3.8 [facility] Comment on above: Performed By: #### T SH #### [facility] [address] [place] [address] Dr. Venkat Sloan Lymphocytes/100 WBC (Bld) 21.5 % Normal 20.5-60.0 [facility] Comment on above: Performed By: #### T SH #### [facility] [address] [place] [address] Dr. Venkat Sloan MANUAL DIFF REQ NO Normal [facility] Comment on above: Performed By: #### T SH #### [facility] [address] [place] [address] Dr. Venkat Sloan MCH (RBC) [Entitic mass] 28.5 pg Normal 26.7-34.0 [facility] Comment on above: Performed By: #### T SH #### [facility] [address] [place] [address] Dr. Venkat Sloan MCHC (RBC) [Mass/Vol] 31.9 g/dL Normal 29.9-35.2 [facility] Comment on above: Performed By: #### T SH #### [facility] [address] [place] [address] Dr. Venkat Sloan MCV (RBC) [Entitic vol] 89.2 fL Normal 81.0-99.0 [facility] Comment on above: Performed By: #### T SH #### [facility] [address] [place] [address] Dr. Venkat Sloan MONO # 0.5 103/ul Normal 0.3-0.8 [facility] Comment on above: Performed By: #### T SH #### [facility] [address] [place] [address] Dr. Venkat Sloan Monocytes/100 WBC (Bld) 7.6 % Normal 1.7-12.0 [facility] Comment on above: Performed By: #### T SH #### [facility] [address] [place] [address] Dr. Venkat Sloan NEUT # 4.9 103/ul Normal 1.4-6.5 [facility] Comment on above: Performed By: #### T SH #### [facility] [address] [place] [address] Dr. Venkat Sloan Neutrophils/100 WBC (Bld) 68.5 % Normal 43.0-75.0 [facility] Comment on above: Performed By: #### T SH #### [facility] [address] [place] [address] Dr. Venkat Sloan Platelet mean volume (Bld) [Entitic vol] 8.8 fL Critically low 9.5-13.5 [facility] Comment on above: Performed By: #### T SH #### [facility] [address] [place] [address] Dr. Venakt Sloan PLT 297 103/ul Normal 150-450 [facility] Comment on above: Performed By: #### T SH #### [facility] [address] [place] [address] Dr. Venkat Sloan RBC 4.46 106/ul Normal 4.20-5.40 [facility] Comment on above: Performed By: #### T SH #### [facility] [address] [place] [address] Dr. Venkat Sloan WBC 7.1 103/ul Normal 4.0-11.0 [facility] Comment on above: Performed By: #### T SH #### [facility] [address] [place] [address] Dr. Venkat Sloan CRPon 09-26-2021 CRP [Mass/Vol] mg/L Normal <=1.0 [facility] Comment on above: Performed By: #### P REGQNT #### [facility] [address] [place] [address] Dr. Venkat Sloan FREE THYROXINE INDEX T7on FTI 2.71 Normal 1.30-4.50 [facility] Comment on above: Performed By: #### P REGQNT #### [facility] [address] [place] [address] Dr. Venkat Sloan T3U 33.0 % Normal 30.0-39.0 [facility] Comment on above: Performed By: #### P REGQNT #### [facility] [address] [place] [address] Dr. Venkat Sloan T4 [Mass/Vol] 8.20 ug/dL Normal 4.80-13.90 [facility] Comment on above: Performed By: #### P REGQNT #### [facility] [address] [address] [address] Venkat Sloan GLYCOHEMOGLOBIN A1Con 2021 ADA RECOMMENDATION SEE BELOW Normal [facility] Comment on above: Result Comment: ADA RECOMMENDED LIMIT 4.0 - 6.0 ADA THERAPEUTIC TARGET < 7.0 ACTION SUGGESTED > 7.0 Performed By: #### I NFLUAB #### [facility] [address] [address] [address] Venkat Sloan Glucose [Mass/Vol] 105 mg/dL Normal [facility] Comment on above: Performed By: #### I NFLUAB #### [facility] [address] [address] [address] Venkat Sloan HbA1c (Bld) [Mass fraction] 5.3 % Normal 4.5-6.2 [facility] Comment on above: Performed By: #### I NFLUAB #### [facility] [address] [address] [address] Venkat Sloan IRONon 09-26-2021 Iron [Mass/Vol] 49.0 ug/dL Critically low 50.0-170.0 [facility] Comment on above: Performed By: #### P REGQNT #### [facility] [address] [place] [address] Dr. Venkat Sloan LIPID PROFILEon 09-26-2021 CHOL-HDL RATIO NORM SEE BELOW Normal [facility] Comment on above: Result Comment: 3.3 - 4.4 LOW RISK 4.4 - 7.1 AVERAGE RISK 7.1 - 11.0 MODERATE RISK >11.0 HIGH RISK Performed By: #### P REGQNT #### [facility] [address] [address] [address] Venkat Sloan Cholesterol [Mass/Vol] 197 mg/dL Normal <=200 [facility] Comment on above: Performed By: #### P REGQNT #### [facility] [address] [address] [address] Venkat Sloan Cholesterol in HDL [Mass/Vol] 64 mg/dL Critically high 40-60 [facility] Comment on above: Performed By: #### P REGQNT #### [facility] [address] [address] [address] Venkat Sloan Cholesterol in LDL [Mass/Vol] 123.4 mg/dL Normal [facility] Comment on above: Performed By: #### P REGQNT #### [facility] [address] [address] [address] Venkat Sloan Cholesterol.total/Choles terol in HDL [Mass ratio] 3.1 {ratio} Normal [facility] Comment on above: Performed By: #### P REGQNT #### [facility] [address] [address] [address] Venkat Sloan HDL NORMAL > or = 60 mg/dl - LO W CARDIOVASCULAR RISK <40 mg/dl - HIGH CARDIOVASCULAR RISK Normal [facility] Comment on above: Performed By: #### P REGQNT #### [facility] [address] [address] [address] Venkat Sloan LDL CALC NORMAL SEE BELOW Normal [facility] Comment on above: Result Comment: <100 mg/dl OPTIMAL 100 - 129 mg/dl NEAR OR ABOVE OPTIMAL 130 - 159 mg/dl BORDERLINE HIGH 160 - 189 mg/dl HIGH >190 mg/dl VERY HIGH Performed By: #### P REGQNT #### [facility] [address] [address] [address] Venkat Sloan Triglyceride [Mass/Vol] 48 mg/dL Normal <=150 T [facility] Comment on above: Performed By: #### P REGQNT #### [facility] [address] [address] [address] Venkat Sloan VLDL CALC 9.6 mg/dL Normal [facility] Comment on above: Performed By: #### P REGQNT #### [facility] [address] [address] [address] Venkat Sloan PROF 14(COMP METB)on 07-02-2 022 Albumin [Mass/Vol] 4.0 g/dL Normal 3.4-5.0 [facility] Comment on above: Performed By: #### I NFLUAB #### [facility] [address] [place] [address] Dr. Venkat Sloan Albumin/Globulin [Mass ratio] 1.3 {ratio} Normal [facility] Comment on above: Performed By: #### I NFLUAB #### [facility] [address] [address] [address] Venkat Sloan ALP [Catalytic activity/Vol] 58 U/L Normal 46-116 [facility] Comment on above: Performed By: #### I NFLUAB #### [facility] [address] [place] [address] Dr. Venkat Sloan ALT [Catalytic activity/Vol] 20 U/L Normal 14-59 [facility] Comment on above: Performed By: #### I NFLUAB #### [facility] [address] [place] [address] Dr. Venkat Sloan Anion gap [Moles/Vol] 10.4 mmol/L Normal [facility] Comment on above: Performed By: #### I NFLUAB #### [facility] [address] [place] [address] Dr. Venkat Sloan AST [Catalytic activity/Vol] 11 U/L Critically low 15-37 [facility] Comment on above: Performed By: #### I NFLUAB #### [facility] [address] [place] [address] Dr. Venkat Sloan Bilirubin [Mass/Vol] 0.8 mg/dL Normal 0.2-1.0 [facility] Comment on above: Performed By: #### I NFLUAB #### [facility] [address] [place] [address] Dr. Venkat Sloan Calcium [Mass/Vol] 9.0 mg/dL Normal 8.5-10.1 [facility] Comment on above: Performed By: #### I NFLUAB #### [facility] [address] [place] [address] Dr. Venkat Sloan Chloride [Moles/Vol] 106 mmol/L Normal 98-107 [facility] Comment on above: Performed By: #### I NFLUAB #### [facility] [address] [place] [address] Dr. Venkat Sloan CO2 [Moles/Vol] 27.0 mmol/L Normal 21.0-32.0 [facility] Comment on above: Performed By: #### I NFLUAB #### [facility] [address] [place] [address] Dr. Venkat Sloan Creatinine [Mass/Vol] 0.70 mg/dL Normal 0.55-1.02 [facility] Comment on above: Performed By: #### I NFLUAB #### [facility] [address] [place] [address] Dr. Venkat Sloan EGFR-AF EGYPTIAN >60 Normal >=60 [facility] Comment on above: Performed By: #### I NFLUAB #### [facility] [address] [place] [address] Dr. Venkat Sloan EGFR-NON AF EGYPTIAN >60 Normal >=60 [facility] Comment on above: Performed By: #### I NFLUAB #### [facility] [address] [place] [address] Dr. Venkat Sloan Globulin (S) [Mass/Vol] 3.2 g/dL Normal T [facility] Comment on above: Performed By: #### I NFLUAB #### [facility] [address] [place] [address] Dr. Venkat Sloan Glucose [Mass/Vol] 92 mg/dL Normal 74-106 [facility] Comment on above: Performed By: #### I NFLUAB #### [facility] [address] [place] [address] Dr. Venkat Sloan Potassium [Moles/Vol] 4.4 mmol/L Normal 3.5-5.1 [facility] Comment on above: Performed By: #### I NFLUAB #### [facility] [address] [place] [address] Dr. Venkat Sloan Protein [Mass/Vol] 7.2 g/dL Normal 6.4-8.2 [facility] Comment on above: Performed By: #### I NFLUAB #### [facility] [address] [place] [address] Dr. Venkat Sloan Sodium [Moles/Vol] 139 mmol/L Normal 136-145 [facility] Comment on above: Performed By: #### I NFLUAB #### [facility] [address] [place] [address] Dr. Venkat Sloan Urea nitrogen [Mass/Vol] 13.0 mg/dL Normal 7.0-18.0 [facility] Comment on above: Performed By: #### I NFLUAB #### [facility] [address] [place] [address] Dr. Venkat Sloan Urea nitrogen/Creatinine [Mass ratio] 18.6 mg/mg Normal [facility] Comment on above: Performed By: #### I NFLUAB #### [facility] [address] [place] [address] Dr. Venkat Sloan TSHon 09-26-2021 TSH 1.318 uIU/mL Normal 0.358-3.740 [facility] Comment on above: Performed By: #### P REGQNT #### [facility] [address] [place] [address] Dr. Venkat Sloan URIC ACID SERUMon 09-26-2021 Urate [Mass/Vol] 3.9 mg/dL Normal 2.6-6.0 [facility] Comment on above: Performed By: #### P REGQNT #### [facility] [address] [place] [address] Dr. Venkat Sloan XR CSPINE MIN 4 [...] by: DUDLEY HERNÁNDEZ Date: 2021-09-24 21:16 Normal [facility] PREG QUANT HCGon 08-17-2021 HCG QUANT <1 Normal [facility] Comment on above: Performed By: #### I NFLUAB #### [facility] [address] [address] [address] Venkat Sloan HCG RANGE SEE BELOW Normal [facility] Comment on above: Result Comment: 5-50 0-1 WEEK 40-300 1-2 WEEKS 100-1,000 2-3 WEEKS 500-6,000 3-4 WEEKS 5,000-200,000 1-2 MONTHS 10,000-100,000 2-3 MONTHS 3,000-50,000 2ND TRIMESTER 1,000-50,000 3RD TRIMESTER Performed By: #### I NFLUAB #### [facility] [address] [address] [address] Venkat Sloan US PELVIS AND TRANSVAGon [...] DUDLEY HERNÁNDEZ Date: 2021-08-17 07:01 Normal [facility] COVID Quick Testingon 2020 Result Negative [facility] Other Vital Signs Date Time Vital Sign Value Performing Clinician Facility 05-10-2023 15:14-0500 Body mass index (BMI) [Ratio] 30.04 kg/m2 Ricardo Jennifer DO Work Phone: [facility] 05-10-2023 15:14-0500 Body weight 72.12 kg Ricardo Jennifer DO Work Phone: [facility] 05-10-2023 15:14-0500 Diastolic blood pressure 70 mm[Hg] Ricardo Jennifer DO Work Phone: [facility] 05-10-2023 15:14-0500 Systolic blood pressure 110 mm[Hg] Ricardo Jennifer DO Work Phone: [facility] 01-27-2021 18:45-0400 Body height 154.94 cm Mohini Juan Other [facility] Other 01-27-2021 18:45-0400 Body mass index (BMI) [Ratio] 28.34 kg/m2 Mohini Juan Other [facility] 01-27-2021 18:45-0400 Body temperature 96.4 [degF] Mohini Buttault Other [facility] Other 01-27-2021 18:45-0400 Body weight 68.04 kg Mohini Buttault Other [facility] 01-27-2021 18:45-0400 Respiratory rate 18 /min Mohini Juan Other [facility] Other 01-27-2021 18:45-0400 SaO2% (BldA) [Mass fraction] 99 % Mohini Juan Other [facility] 12-22-2020 11:45-0400 Body height 154.94 cm Dudley Freeman Other [facility] Other 12-22-2020 11:45-0400 Body mass index (BMI) [Ratio] 28.34 kg/m2 Dudley Freeman Other [facility] Other 12-22-2020 11:45-0400 Body weight 68.04 kg Dudley Freeman Other [facility] Other Encounters Encounter Date Encounter Type Care [...] preprocedural examination DR RICARDO RODRIGUEZ . [facility] Start: 07-08-2022 End: 07-08-[address] [...] Start: 02-10-2022 End: 02-10-[address] IRON GARICA . Facility:[facility] Start: 02-03-2022 End: 02-03-2022 ambulatory [...] abnormal findings DR IRON GARCIA . [facility] Start: 09-26-2021 End: 09-27-[address] [...] 01-27-2021 End: 01-27-2021 ambulatory Mohini Martinez Other [facility] Other Start: 01-27-2021 Office outpatient vi sit 15 minutes Mohini Martinez [facility] Start: 12-22-2020 Office outpatient ne w 45 minutes Dudley Freeman [facility] Procedures Date Procedure Procedure Detail Performing Clinician Start: 05-10-2023 Urnls dip stick/tabl et rgnt non-auto w/o micrscp Ricardo Rodriguez DO Work Phone: Plan of Treatment Date Care Activity Detail Author Start: 05-26-2023 End: 05-26-2023 Patient encounter procedure 05/26/2023 9:50 AM EST Routine [facility] [address] [place] [id number] Ricardo Rodriguez, DO [address] [place] [address] [facility] Start: 05-10-2023 End: 05-10-2024 CBC panel - Blood by Automated count CBC Lab Routine Diabetes mellitus screening Expected: 05/10/2023 (Approximate), Expires: 05/10/2024 [facility] Work Phone: Comment on above: Expected: 05/10/2023 (Approximate), Expires: 05/10/2024 Start: 05-10-2023 End: 05-10-2024 Measurement of glucose 1 hour after glucose challenge for glucose tolerance test Glucose tolerance, 1 hour Lab Routine Diabetes mellitus screening Expected: 05/10/2023 (Approximate), Expires: 05/10/2024 [facility] Comment on above: Expected: 05/10/2023 (Approximate), Expires: 05/10/2024 Start: 11-26-2022 Influenza vaccination Influenz a Vaccine (#1) [facility] Immunizations Immunization Date Immunization Notes Care Provider Frankie munoz 01-25-2022 influenza virus vacc ine, unspecified formulation Ricardo Rodriguez DO Work Phone: [facility] Payers Date Payer Category Payer Unknown BCBS BCBS xxxxxx [id number] 2022-Present [phone] [address] [place] [address] [id number] 1993 Unknown [id number] 1993 Unknown [id number] 1993 Unknown [id number] 1993 Unknown [id number] 1993 Unknown [id number] 1993 Unknown [id number] 1993 Unknown [id number] 1993 Unknown [id number] 1993 Unknown [id number] 1993 Unknown [id number] 2.16.840.1.335101.3.579.2.593 1993 Unknown [id number] 2.16.840.1.777078.3.579.2.593 1993 Unknown [id number] 2.16.840.1.481150.3.579.2.593 1993 Unknown [id number] 2.16.840.1.474742.3.579.2.593 1993 Unknown [id number] 2.16.840.1.514936.3.579.2.593 1993 Unknown [id number] 2.16.840.1.142489.3.579.2.593 1993 Unknown [id number] 2.16.840.1.258856.3.579.2.593 1993 Unknown [id number] 2.16.840.1.596212.3.579.2.593 1993 Unknown [id number] 2.16.840.1.727855.3.579.2.593 1993 Unknown [id number] 2.16.840.1.598972.3.579.2.59 1993 Unknown [id number] 2.16.840.1.030008.3.579.2.593 1993 Unknown [id number] 2.16.840.1.075768.3.579.2.593 1993 Unknown [id number] 2.16.840.1.764713.3.579.2.593 1993 Unknown [id number] 2.16.840.1.797351.3.579.2.593 1993 Unknown [id number] 2.16.840.1.869498.3.579.2.593 1993 Unknown [id number] 2.16.840.1.312876.3.579.2.593 1993 Unknown [id number] 2.16.840.1.123867.3.579.2.1259 1993 Unknown [id number] 2.16.840.1.739188.3.579.2.1259 1993 Unknown [id number] 2.16.840.1.124073.3.579.2.1259 1993 Unknown [id number] 2.16.840.1.057423.3.579.2.1259 1959 Unknown [id number] 1959 Unknown [id number] Unknown [id number] 2.16. 840.1.932578.19 Social History Date Type Detail Facility Unknown if ever smoked [facility] Start: 01-28-2023 Sex Assigned At [facility] Start: 01-28-2023 Tobacco smoking status NHIS [...] nursing note reviewed. Exam conducted with a resource management specialist present. Vitals: Estimated body mass index is [...] Ricardo Rodriguez DO documented in this encounter [facility] Clinical Note 07-08-2022 Note Date & Type Note Facility 07-08-2022 Note OPERATIVE NOTE OPERATION DATE: 07/08/2022 PROCEDURE: Diagnostic laparoscopy with fulguration of ovarian endometrial implant. PREOPERATIVE DIAGNOSIS: Pelvic pain. POSTOPERATIVE DIAGNOSIS: Pelvic pain. ANESTHESIA: General. SURGEON: Ricardo Rodriguez D.O. HOT BOX CHECKER: DEVIN Miles URINE OUTPUT: Yellow and clear. [...] to Recovery Room in stable condition. [facility] Evaluation note 12-22-2020 Note Date & Type Note Facility 12-22-2020 Evaluation note Encounter Date Diagnosis Assessment Notes Nov, Irritable bowel syndrome with both constipation and diarrhea (ICD-10 - K58.2) LABS INDICATED ABOVE START TRIAL OF DICYCLOMINE 20 BID RTO 4 WEEKS [facility] Evaluation note Note Date & Type Note Facility Evaluation note PostedIn Other Evaluation note Note Date & Type Note Facility Evaluation note Diagnosis Second trimester state, incidental Diabetes mellitus screening Screening for diabetes mellitus documented in this encounter [facility] History general Narrative - Reported Note Date & Type Note Facility History general Narrative - Reported Type Medical History anxiety/depression Medical History IBS Surgical History TONSILLECTOMY [facility] History general Narrative - Reported Note Date & Type Note Facility History general Narrative - Reported [facility] Summary Purpose Family History No Family History Records FoundNo Family History Records Found Advance Directives No Advanced Directives Records FoundNo Advanced Directives Records Found Additional Source Comments REASON FOR VISIT (unrecogniz ed section and content) Reason Comments Routine Visit INFORMATION SOURCE (unrecogn ized section and content) DATE CREATED AUTHOR 07/13/2022 [facility] DATE CREATED AUTHOR AUTHOR'S ORGANIZ ATION 05/12/2023 [facility] [employer] Care Teams (unrecognized sec tion and content) Visual Basic Programmer Relationship Specialty Start Date End Date Iron Garcia MD [address] [place] [address] PCP - General Family Medicine 11/23/22 FOR [...] BE BASED ON THE PRIMARY CLINICAL RECORDS. [facility] [employer] [facility]. provides no warranty or guarantee of the accuracy or completeness of information in this document.
[2023-05-24 09:56] LABS: Basophils Percent Auto 0.3 % (0.2-2.0); Eosinophils Absolute Auto 0.3 10^3/uL (0.0-0.7); Eosinophils Percent Auto 1.9 % (0.9-7.0); Hemoglobin 10.7 g/dL (12.0-16.0); Immature Granulocytes Abs Auto 0.16 10^3/uL (0.00-0.03); Immature Granulocytes Pct Auto 1.2 % (0.0-0.5); Lymphocytes Absolute Auto 1.7 10^3/uL (1.2-3.8); Lymphocytes Percent Auto 12.8 % (20.5-60.0); Mean Corpuscular HGB Conc 32.4 g/dL (29.9-35.2); Mean Corpuscular Hemoglobin 30.1 pg (26.7-34.0); Mean Corpuscular Volume 92.7 fL (81.0-99.0); Mean Platelet Volume 9.4 fL (9.5-13.5); Monocytes Percent Auto 7.5 % (1.7-12.0); Neutrophils Absolute Auto 10.2 10^3/uL (1.4-6.5); Neutrophils Percent Auto 76.3 % (43.0-75.0); Platelet Count 271 10^3/uL (150-450); Red Blood Count 3.56 10^6/uL (4.20-5.40); Red Cell Distribution Width 13.2 % (11.0-15.0); White Blood Count 13.4 10^3/uL (4.0-11.0)
[2023-05-24 10:35] LABS: Glucose 1 Hour 59 mg/dL (<130)
== END 2023-05-24 08:31 | disposition home or self-care (01) ==
PROVIDERS: PCP Family Medicine; Visit Provider Family Medicine
DX: Z34.92 Encounter for supervision of normal pregnancy, unspecified, second trimester (principal); D64.9 Anemia, unspecified; Z3A.27 27 weeks gestation of pregnancy
CPT/HCPCS: 36415; 82950; 85025

== ENCOUNTER 2023-05-26 09:16 | Outpatient (OUT) | payer BC, SELFPAY ==
--- NOTE | 2023-05-26 09:17 | US_ITS ---
[address] [address] Patient Name: ESTER BRADFORD MRN: [facility]:[id number] date: 1995 Sex: F Assigned Patient Location: [facility] Current Patient Location: [facility] Accession/Order Number: [id number] Exam Date: 05/26/2023 09:17 Report Date: 05/26/2023 09:49 At the request of: RICARDO LEGGETT Procedure: US OB growth EXAMINATION: US OB growth HISTORY: SIZE INCONSISTENT WITH DATES COMPARISON: No relevant comparison available. FINDINGS: Heart Rate: 169.0 bpm Amniotic Fluid Volume: 21.4 cm Number: 1.0 Position: VARIABLE Maximum Vertical Pocket: 8.9 cm cm 5.0 cm cm 5.0 cm cm 2.4 cm cm BIOMETRY: BPD: 7.1 cm cm; 28 weeks 4 days; 64% HC: 26.2 cmcm; 28 weeks 4 days, 41% AC: 24.3 cm cm; 28 weeks 4 days, 66% FL: 5.2 cm cm; 27 weeks 4 days; 27.8 % % EFW: 1200.2 grams, 2 lbs. 10 oz., 53% FL/AC: 21.2 FL/BPD: 72.5 HC/AC: 1.1 GESTATIONAL AGE: Age by EDC: 27 weeks 6 days NITHYA by EDC: 08/19/2023 Age by US: 27 weeks 6 days NITHYA by US: 08/19/2023 US/US OB growth IMPRESSION: Borderline polyhydramnios Normal interval growth Electronically authenticated by: DUDLEY HERNÁNDEZ Date: 05/26/2023 09:49
== END 2023-05-26 09:17 | disposition home or self-care (01) ==
LOC: NOMS 09:16
PROVIDERS: PCP Family Medicine; Visit Provider Obstetrics & Gynecology
DX: O26.849 Uterine size-date discrepancy, unspecified trimester (principal); Z3A.27 27 weeks gestation of pregnancy; O40.3XX0 Polyhydramnios, third trimester, not applicable or unspecified
CPT/HCPCS: 76816

== ENCOUNTER 2023-05-27 07:45 | Outpatient (OUT) | payer BC, SELFPAY ==
--- OUTSIDE RECORDS SUMMARY | 2023-05-27 07:49 | XMS_ITS | CCD ---
Author Name Unknown Address [address] [place] [address] Organization [facility] Care Team Providers Care Interventional Radiologist Name Role Phone Dudley Freeman Unavailable Mohini Martinez Unavailable JENNIFER ., DR [...] Unavailable HOY ., DR PERDUE Consulting Unavailable [place], DR DUDLEY Emanuel Consulting Unavailable JENNIFER ., [...] DR SILVA Consulting Unavailable HOY ., DR PEDRUE Admitting Unavailable HOY ., DR PERDUE Attending [...] Unavailable JENNIFER ., DR SILVA Consulting Unavailable ZieberLam Consulting Unavailable JENNIFER ., DR SILVA Admitting Unavailable JENNIFER ., DR SILVA Attending Unavailable HOY ., DR PERDUE Primary Care Unavailable JENNIFER ., DR SILVA Admitting Unavailable JENNIFER ., DR SILVA Attending Unavailable HOY ., DR PERDUE Primary Care Unavailable JENNIFER, RICARDO Attending Unavailable JENNIFER, RICARDO Attending Unavailable JENNIFER, RICARDO Attending Unavailable JENNIFER, RICARDO Attending Unavailable Iron Garcia MD Primary Care Provider [phone] Medications Current Medications Medication Drug Class(es) Dates Sig (Normalized) Sig (Original) [id number] 200 actuat albuterol 0.09 mg/actuat metered dose [...] DAILY NEEDED FOR NAUSEA 0 02/19/2023 Active [id number]-Akwc Fum-Folic Ac-Om3 (One A Day Women's Dha) 28 mg iron- 800 mcg combo pack (1 source) Start: 05-22-2023 Yrcoxh77-Uonb Fum-Folic Ac-Om3 (One A Day Women's Dha) 28 mg iron- 800 mcg combo pack Active PKG PO May 22, 2023 12:00am promethazine hydrochloride 25 mg oral tablet (2 [...] succinate 50 mg extended release oral tablet (3 sources) Serotonin and Norepinephrine Reuptake Inhibitor Start: 05-11-2017 End: 05-22-2023 take 1 tablet by mouth once daily, then take 1 tablet by mouth every twenty-four hours Desvenlafaxine Succinate (Pristiq) 50 mg tablet extended release 24 hr Discontinued 50 MG PO Daily May 11, 2017 12:00am May 22, 2023 9:32am dicyclomine hydrochloride 20 mg oral tablet (2 sources) Anticholinergic Start: 12-22-2020 take 1 tablet by mouth every twelve hours linaclotide 0.072 mg oral capsule (3 sources) Guanylate Cyclase-C Agonist Start: 05-11-2017 End: 05-12-2017 take 1 capsule by mouth once daily Linaclotide (Linzess) 72 mcg capsule Discontinued 72 MCG PO Daily May 11, 2017 12:00am May 12, 2017 7:46am Linzess 72 MCG O ral for 30 Not-Taking lubiprostone 0.008 mg oral capsule (3 sources) Chloride Channel Activator Start: 05-12-2017 End: 05-22-2023 take 1 capsule by mouth twice daily Lubiprostone (Amitiza) 8 mcg Capsule Discontinued 8 MCG PO Twice daily May 12, 2017 12:00am May 22, 2023 9:32am take 1 capsule by mouth every tw elve hours Problems Active Problems Problem Classification Problem [...] K58.2] Onset: 12-22-2020 Resolved: 12-22-2020 Chronic Other gastrointestinal disorders (1 source) Altered bowel function; Translations: [Change in bowel habit] 03-09-2023 Episodic Other nutritional; endocrine; and metabolic disorders (5 sources) Metabolic syndrome; 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 Other nutritional; endocrine; and metabolic disorders (1 source) Weight loss; Translations: [Abnormal weight loss] 03-09-2023 Episodic Other and delivery including normal (2 sources) [...] Test Name Value Interpretation Reference Range Facility Laboratory - Microbiology an d Antimicrobial susceptibilityOrdered By: Teresa Wilkins on 05-22-2023 SARS-CoV-2 (COVID-19) RNA SHIRIN+probe Ql (Unsp spec) [facility] Urinalysis macro (dipstick) panel (U)on 05-10-2023 Bilirubin, UA Negative Negative - 4(70) +++ mg/dL [facility] Blood, UA Negative Negative - 50 Jayson/mcL [facility] Clarity, UA Clear [facility] Color, UA Yellow [facility] Glucose, UA Negative Negative - 1999(110) ++++ mg/dL [facility] Interpretation and review of laboratory results Abnormal [facility] Ketones, UA Positive Negative - 160(16) ++++ mg/dL [facility] Comment on above: trace Leukocytes, UA Trace Negative - 500+++ Lolita/mcL [facility] Nitrite, UA Negative Negative - Positive [facility] pH, UA 6.0 5 - 9 [facility] Protein, UA Negative Negative - 1999(20) ++++ mg/dL [facility] Spec Grav, UA 1.030 1 - 1.03 [facility] Urobilinogen, UA 0.2 0.2 - 12 mg/dL [facility] CBC AUTO DIFFon 07-08-2022 BASO # 0.0 103/ul Normal 0.0-0.1 [facility] Comment on above: Performed By: #### R F #### [facility] [address] [address] [address] Venkat Sloan Basophils/100 WBC (Bld) 0.5 % Normal 0.2-2.0 [facility] Comment on above: Performed By: #### R F #### [facility] [address] [place] [address] Dr. Venkat Sloan EO # 0.1 103/ul Normal 0.0-0.[address] [facility] Comment on above: Performed By: #### R F #### [facility] [address] [place] [address] Dr. Venkat Sloan Eosinophils/100 WBC (Bld) 1.7 % Normal 0.9-7.[address] [facility] Comment on above: Performed By: #### R F #### [facility] [address] [place] [address] Dr. Venkat Sloan Erythrocyte distribution width (RBC) [Ratio] 12.7 % Normal 11.0-15.0 [facility] Comment on above: Performed By: #### R F #### [facility] [address] [place] [address] Dr. Venkat Sloan Hematocrit (Bld) [Volume fraction] 40.4 % Normal 36.0-48.0 [facility] Comment on above: Performed By: #### R F #### [facility] [address] [place] [address] Dr. Venkat Sloan Hemoglobin (Bld) [Mass/Vol] 13.1 g/dL Normal 12.0-16.0 [facility] Comment on above: Performed By: #### R F #### [facility] [address] [place] [address] Dr. Venkat Sloan IG # 0.02 10e3/ul Normal 0.00-0.[address] [facility] Comment on above: Performed By: #### R F #### [facility] [address] [place] [address] Dr. Venkat Sloan IG % 0.3 % Normal 0.0-0.[address] [facility] Comment on above: Performed By: #### R F #### [facility] [address] [place] [address] Dr. Venkat Sloan LYMPH # 2.0 103/ul Normal 1.2-3.[address] [facility] Comment on above: Performed By: #### R F #### [facility] [address] [place] [address] Dr. Venkat Sloan Lymphocytes/100 WBC (Bld) 26.2 % Normal 20.5-60.0 [facility] Comment on above: Performed By: #### R F #### [facility] [address] [place] [address] Dr. Venkat Sloan MANUAL DIFF REQ NO Normal [facility] Comment on above: Performed By: #### R F #### [facility] [address] [place] [address] Dr. Venkat Sloan MCH (RBC) [Entitic mass] 28.4 pg Normal 26.7-34.0 [facility] Comment on above: Performed By: #### R F #### [facility] [address] [place] [address] Dr. Venkat Sloan MCHC (RBC) [Mass/Vol] 32.4 g/dL Normal 29.9-35.2 [facility] Comment on above: Performed By: #### R F #### [facility] [address] [place] [address] Dr. Venkat Sloan MCV (RBC) [Entitic vol] 87.4 fL Normal 81.0-99.0 [facility] Comment on above: Performed By: #### R F #### [facility] [address] [place] [address] Dr. Venkat Sloan MONO # 0.7 103/ul Normal 0.3-0.8 [facility] Comment on above: Performed By: #### R F #### [facility] [address] [place] [address] Dr. Venkat Sloan Monocytes/100 WBC (Bld) 8.8 % Normal 1.7-12.0 [facility] Comment on above: Performed By: #### R F #### [facility] [address] [place] [address] Dr. Venkat Sloan NEUT # 4.8 103/ul Normal 1.4-6.5 [facility] Comment on above: Performed By: #### R F #### [facility] [address] [place] [address] Dr. Venkat Sloan Neutrophils/100 WBC (Bld) 62.5 % Normal 43.0-75.0 [facility] Comment on above: Performed By: #### R F #### [facility] [address] [place] [address] Dr. Venkat Sloan Platelet mean volume (Bld) [Entitic vol] 8.5 fL Critically low 9.5-13.5 [facility] Comment on above: Performed By: #### R F #### [facility] [address] [place] [address] Dr. Venkat Sloan PLT 331 103/ul Normal 150-[address] [facility] Comment on above: Performed By: #### R F #### [facility] [address] [place] [address] Dr. Venkat Sloan RBC 4.62 106/ul Normal 4.20-5.40 [facility] Comment on above: Performed By: #### R F #### [facility] [address] [place] [address] Dr. Venkat Sloan WBC 7.7 103/ul Normal 4.0-11.0 [facility] Comment on above: Performed By: #### R F #### [facility] [address] [place] [address] Dr. Venkat Sloan PREG QUANT HCGon 07-08-2022 HCG QUANT <1 Normal [facility] Comment on above: Performed By: #### P REGQNT #### [facility] [address] [place] [address] Dr. Venkat Sloan HCG RANGE SEE BELOW Normal [facility] Comment on above: Result Comment: 5-50 0.2-1 WEEK 50-500 1-2 WEEKS 100-5,000 2-3 WEEKS 500-10,000 3-4 WEEKS 1,000-50,000 4-5 WEEKS 10,000-100,000 5-6 WEEKS 15,000-200,000 6-8 WEEKS 10,000-100,000 2-3 MONTHS Performed By: #### P REGQNT #### [facility] [address] [place] [address] Dr. Venkat Sloan PROGESTERONEon 06-23-2022 Progesterone 5.7 ng/mL Normal [facility] Comment on above: Result Comment: Foll icular phase 0.1 - 0.9 Luteal phase 1.8 - 23.9 Ovulation phase 0.1 - 12.0 First trimester 11.0 - 44.3 Second trimester 25.4 - 83.3 Third trimester 58.7 - 214.0 Postmenopausal 0.0 - 0.1 Performed By: #### T SH #### [facility] [address] [place] [address] Dr. Venkat Sloan PREG QUANT HCGon 05-31-2022 HCG QUANT 1 mIU/mL Normal [facility] Comment on above: Performed By: #### P REGQNT #### [facility] [address] [place] [address] Dr. Venkat Sloan HCG RANGE SEE BELOW Normal [facility] Comment on above: Result Comment: 5-50 0.2-1 WEEK 50-500 1-2 WEEKS 100-5,000 2-3 WEEKS 500-10,000 3-4 WEEKS 1,000-50,000 4-5 WEEKS 10,000-100,000 5-6 WEEKS 15,000-200,000 6-8 WEEKS 10,000-100,000 2-3 MONTHS Performed By: #### P REGQNT #### [facility] [address] [place] [address] Dr. Venkat Sloan PROGESTERONEon 05-21-2022 Progesterone 12.4 ng/mL Normal [facility] Comment on above: Result Comment: Foll icular phase 0.1 - 0.9 Luteal phase 1.8 - 23.9 Ovulation phase 0.1 - 12.0 First trimester 11.0 - 44.3 Second trimester 25.4 - 83.3 Third trimester 58.7 - 214.0 Postmenopausal 0.0 - 0.1 Performed By: #### I NFLUAB #### [facility] [address] [place] [address] Dr. Venkat Sloan MRI BRAIN WO W [...] LAM VELA Date: 2022-05-04 08:42 Normal [facility] PREG QUANT HCGon 05-04-2022 HCG QUANT <1 Normal [facility] Comment on above: Performed By: #### R F #### [facility] [address] [place] [address] Dr. Venkat Sloan HCG RANGE SEE BELOW Normal [facility] Comment on above: Result Comment: 5-50 0.2-1 WEEK 50-500 1-2 WEEKS 100-5,000 2-3 WEEKS 500-10,000 3-4 WEEKS 1,000-50,000 4-5 WEEKS 10,000-100,000 5-6 WEEKS 15,000-200,000 6-8 WEEKS 10,000-100,000 2-3 MONTHS Performed By: #### R F #### [facility] [address] [place] [address] Dr. Venkat Sloan XR HYSTEROSALPINGOGRAMon XR HYSTEROSALPINGOGRAM [...] LAM VELA Date: 2022-05-04 16:09 Normal [facility] PROGESTERONEon 04-24-2022 Progesterone 0.4 ng/mL Normal [facility] Comment on above: Result Comment: Foll icular phase 0.1 - 0.9 Luteal phase 1.8 - 23.9 Ovulation phase 0.1 - 12.0 First trimester 11.0 - 44.3 Second trimester 25.4 - 83.3 Third trimester 58.7 - 214.0 Postmenopausal 0.0 - 0.1 Performed By: #### I NFLUAB #### [facility] [address] [place] [address] Dr. Venkat Sloan CULTURE SPUTUMon 04-02-2022 CULTURE SPUTUM Culture Observations : NORMAL RESPIRATORY NATALEE. Normal [facility] Comment on above: Performed By: #### R F #### [facility] [address] [place] [address] Dr. Venkat Sloan SPUTUM GRAM STAINon 04-02-19 23 COMMENTS Normal [facility] Comment on above: Performed By: #### R F #### [facility] [address] [place] [address] Dr. Venkat Sloan DIPHTHEROIDS Normal [facility] Comment on above: Performed By: #### R F #### [facility] [address] [place] [address] Dr. Venkat Sloan EPITHELIALS <25 Normal [facility] Comment on above: Performed By: #### R F #### [facility] [address] [place] [address] Dr. Venkat Sloan FUNGAL ELEMENTS Normal [facility] Comment on above: Performed By: #### R F #### [facility] [address] [place] [address] Dr. Venkat Sloan GRAM NEG BACILLI RARE Normal [facility] Comment on above: Performed By: #### R F #### [facility] [address] [place] [address] Dr. Venkat Sloan GRAM NEG DIPPLOCOCCI Normal [facility] Comment on above: Performed By: #### R F #### [facility] [address] [address] [address] Venkat Sloan GRAM POS BACILLI Normal [facility] Comment on above: Performed By: #### R F #### [facility] [address] [address] [address] Venkat Sloan GRAM POSITIVE COCCI RARE Normal [facility] Comment on above: Performed By: #### R F #### [facility] [address] [address] [address] Venkat Sloan WBC (Bld) [#/Vol] 10*3/uL Normal [facility] Comment on above: Performed By: #### R F #### [facility] [address] [address] [address] Venkat Sloan [facility]on SARS-CoV-2 (COVID-19) RNA SHIRIN+probe Ql (Unsp spec) Not detected Normal NOT DETECTED [facility] Comment on above: Result Comment: This test is not yet approved or cleared by the [place] FDA. When there are no FDA-approved or cleared tests available, and other criteria are met, FDA can make tests available under an emergency access mechanism called an Emergency Use Authorization (EUA). The EUA for this test is supported by the Rendering Equipment Tender of Health and Human Service's (HHS's) [...] SARS-CoV-2. Performed By: #### P REGQNT #### [facility] [address] [address] [address] Venkat Sloan INFLUENZA A AND B AGon 04-01 INFLUANEGH SEE BELOW Normal [facility] Comment on above: Result Comment: Nega tive for Flu A protein angiten. Infection due to Flu A cannot be ruled out. Flu A angiten in the sample may be below the detection limit of the test. Performed By: #### I NFLUAB #### [facility] [address] [place] [address] Dr. Venkat Sloan [facility] SEE BELOW Normal [facility] Comment on above: Result Comment: Nega tive for Flu B protein antigen. Infection due to Flu B cannot be ruled out. Flu B antigen in the sample may be below the detection limit of the test. Performed By: #### I NFLUAB #### [facility] [address] [place] [address] Dr. Venkat Sloan INFLUENZA A AG Negative Normal NEGATIVE SEE COMMENT [facility] Comment on above: Performed By: #### I NFLUAB #### [facility] [address] [place] [address] Dr. Venkat Sloan INFLUENZA B AG Negative Normal NEGATIVE SEE COMMENT [facility] Comment on above: Performed By: #### I NFLUAB #### [facility] [address] [place] [address] Dr. Venkat Sloan XR CHEST 2 Von [...] [address] Date: 2022-03-24 12:33 Normal [facility] Covid-19 PCR ([facility]on 02-25 SARS-CoV-2 (COVID-19) RNA SHIRIN+probe Ql (Unsp spec) Not detected Normal NOT DETECTED [facility] Comment on above: Result Comment: When [...] for this test is supported by the [place] of Health and Human Service's declaration that [...] used). Performed By: #### R F #### [facility] [address] [place] [address] Dr. Venkat Sloan INFLUENZA A AND B [facility] 03-15 [facility] SEE BELOW Normal [facility] Comment on above: Result Comment: Nega tive for Flu A protein angiten. Infection due to Flu A cannot be ruled out. Flu A angiten in the sample may be below the detection limit of the test. Performed By: #### I NFLUAB #### [facility] [address] [place] [address] Dr. Venkat [facility] SEE BELOW Normal [facility] Comment on above: Result Comment: Nega tive for Flu B protein antigen. Infection due to Flu B cannot be ruled out. Flu B antigen in the sample may be below the detection limit of the test. Performed By: #### I NFLUAB #### [facility] [address] [place] [address] Dr. Venkat Sloan INFLUENZA A AG Negative Normal NEGATIVE SEE COMMENT [facility] Comment on above: Performed By: #### I NFLUAB #### [facility] [address] [place] [address] Dr. Venkat Sloan INFLUENZA B AG Negative Normal NEGATIVE SEE COMMENT [facility] Comment on above: Performed By: #### I NFLUAB #### [facility] [address] [place] [address] Dr. Venkat Sloan INTERNAL CONTROLS Within Normal Limits Normal Wi thin Normal Limits [facility] Comment on above: Performed By: #### I NFLUAB #### [facility] [address] [place] [address] Dr. Venkat Sloan Covid-19 PCR ([facility]on 02-25 SARS-CoV-2 (COVID-19) RNA SHIRIN+probe Ql (Unsp spec) Not detected Normal NOT DETECTED [facility] Comment on above: Result Comment: When [...] for this test is supported by the [place] of Health and Human Service's declaration that [...] used). Performed By: #### I NFLUAB #### [facility] [address] [place] [address] Dr. Venkat Sloan INFLUENZA A AND B AGon 03-12 [facility] SEE BELOW Normal [facility] Comment on above: Result Comment: Nega tive for Flu A protein angiten. Infection due to Flu A cannot be ruled out. Flu A angiten in the sample may be below the detection limit of the test. Performed By: #### I NFLUAB #### [facility] [address] [place] [address] Dr. Venkat [facility] SEE BELOW Normal [facility] Comment on above: Result Comment: Nega tive for Flu B protein antigen. Infection due to Flu B cannot be ruled out. Flu B antigen in the sample may be below the detection limit of the test. Performed By: #### I NFLUAB #### [facility] [address] [place] [address] Dr. Venkat Sloan INFLUENZA A AG Negative Normal NEGATIVE SEE COMMENT [facility] Comment on above: Performed By: #### I NFLUAB #### [facility] [address] [place], [place] [address] Dr. Venkat Sloan INFLUENZA B AG Negative Normal NEGATIVE SEE COMMENT [facility] Comment on above: Performed By: #### I NFLUAB #### [facility] [address] [place], [place] [address] Dr. Venkat Sloan INTERNAL CONTROLS Within Normal Limits Normal Wi thin Normal Limits [facility] Comment on above: Performed By: #### I NFLUAB #### [facility] [address] [place], [place] [address] Dr. Venkat Sloan PROGESTERONEon 02-20-2022 Progesterone 0.3 ng/mL Normal [facility] Comment on above: Result Comment: Foll icular phase 0.1 - 0.9 Luteal phase 1.8 - 23.9 Ovulation phase 0.1 - 12.0 First trimester 11.0 - 44.3 Second trimester 25.4 - 83.3 Third trimester 58.7 - 214.0 Postmenopausal 0.0 - 0.1 Performed By: #### R F #### [facility] [address] [place], [place] [address] Dr. Venkat Sloan ACTH STIMULATIONon 2 Andros Baseline 49 ng/dL Normal 41-262 [facility] Comment on above: Performed By: #### R F #### [facility] [address] [place], [place] [address] Dr. Venkat Sloan Andros Stimulated 82 ng/dL Normal Not Estab. [facility] Comment on above: Performed By: #### R F #### [facility] [address] [place], [place] [address] Dr. Venkat Sloan Covid-19 PCR ([facility])on 01-26 SARS-CoV-2 (COVID-19) RNA SHIRIN+probe Ql (Unsp spec) Not detected Normal NOT DETECTED [facility] Comment on above: Result Comment: This test is not yet approved or cleared by the [place] FDA. When there are no FDA-approved or cleared tests available, and other criteria are met, FDA can make tests available under an emergency access mechanism called an Emergency Use Authorization (EUA). The EUA for this test is supported by the [place] of Health and Human Service's (HHS's) declaration [...] SARS-CoV-2. Performed By: #### I NFLUAB #### [facility] [address] [place] [address] Dr. Venkat Sloan INFLUENZA A AND B [facility] 02-10 [facility] SEE BELOW Normal [facility] Comment on above: Result Comment: Nega tive for Flu A protein angiten. Infection due to Flu A cannot be ruled out. Flu A angiten in the sample may be below the detection limit of the test. Performed By: #### P REGQNT #### [facility] [address] [place] [address] Dr. Venkat Sloan [facility] SEE BELOW Normal [facility] Comment on above: Result Comment: Nega tive for Flu B protein antigen. Infection due to Flu B cannot be ruled out. Flu B antigen in the sample may be below the detection limit of the test. Performed By: #### P REGQNT #### [facility] [address] [place] [address] Dr. Venkat Sloan INFLUENZA A AG Negative Normal NEGATIVE SEE COMMENT [facility] Comment on above: Performed By: #### P REGQNT #### [facility] [address] [place] [address] Dr. Venkat Sloan INFLUENZA B AG Negative Normal NEGATIVE SEE COMMENT [facility] Comment on above: Performed By: #### P REGQNT #### [facility] [address] [place] [address] Dr. Venkat Sloan INTERNAL CONTROLS Within Normal Limits Normal Wi thin Normal Limits [facility] Comment on above: Performed By: #### P REGQNT #### [facility] [address] [address] [address] Venkat Sloan DHEA SERUMon 01-19-2022 Dehydroepiandrosterone (DHEA) 82 ng/dL Normal 31-701 [facility] Comment on above: Result Comment: Age [...] 89 Performed By: #### T SH #### [facility] [address] [place] [address] Dr. Venkat Sloan DHEA-SULFATEon 01-14-2022 DHEA-Sulfate 34.0 ug/dL Critically low 84.8-378.0 [facility] Comment on above: Performed By: #### R F #### [facility] [address] [place] [address] Dr. Venkat Sloan FSHon 01-14-2022 FSH 2.2 mIU/mL Normal [facility] Comment on above: Result Comment: Adul t Female: Follicular phase 3.5 - 12.5 Ovulation phase 4.7 - 21.5 Luteal phase 1.7 - 7.7 Postmenopausal 25.8 - 134.8 Performed By: #### L BCFSH #### [facility] [address] [place] [address] Dr. Venkat Sloan LUTEINIZING HORMONE (LH)on LH 5.1 mIU/mL Normal [facility] Comment on above: Result Comment: Adul t Female: Follicular phase 2.4 - 12.6 Ovulation phase 14.0 - 95.6 Luteal phase 1.0 - 11.4 Postmenopausal 7.7 - 58.5 Performed By: #### I NFLUAB #### [facility] [address] [place] [address] Dr. Venkat Sloan PROLACTINon 01-14-2022 Prolactin 8.0 ng/mL Normal 4.8-23.[address] [facility] Comment on above: Performed By: #### P ROLAC #### [facility] [address] [address] [address] Venkat Sloan CBC AUTO DIFFon 01-13-2022 BASO # 0.0 103/ul Normal 0.0-0.1 [facility] Comment on above: Performed By: #### T SH #### [facility] [address] [address] [address] Venkat Sloan Basophils/100 WBC (Bld) 0.4 % Normal 0.2-2.0 [facility] Comment on above: Performed By: #### T SH #### [facility] [address] [place] [address] Dr. Venkat Sloan EO # 0.1 103/ul Normal 0.0-0.7 [facility] Comment on above: Performed By: #### T SH #### [facility] [address] [place] [address] Dr. Venkat Sloan Eosinophils/100 WBC (Bld) 1.2 % Normal 0.9-7.0 [facility] Comment on above: Performed By: #### T SH #### [facility] [address] [place] [address] Dr. Venkat Sloan Erythrocyte distribution width (RBC) [Ratio] 12.7 % Normal 11.0-15.0 [facility] Comment on above: Performed By: #### T SH #### [facility] [address] [place] [address] Dr. Venkat Sloan Hematocrit (Bld) [Volume fraction] 41.1 % Normal 36.0-48.0 [facility] Comment on above: Performed By: #### T SH #### [facility] [address] [place] [address] Dr. Venkat Sloan Hemoglobin (Bld) [Mass/Vol] 13.1 g/dL Normal 12.0-16.0 [facility] Comment on above: Performed By: #### T SH #### [facility] [address] [place] [address] Dr. Venkat Sloan IG # 0.03 10e3/ul Normal 0.00-0.03 [facility] Comment on above: Performed By: #### T SH #### [facility] [address] [place] [address] Dr. Venkat Sloan IG % 0.3 % Normal 0.0-0.5 [facility] Comment on above: Performed By: #### T SH #### [facility] [address] [place] [address] Dr. Venkat Sloan LYMPH # 1.6 103/ul Normal 1.2-3.8 [facility] Comment on above: Performed By: #### T SH #### [facility] [address] [place] [address] Dr. Venkat Sloan Lymphocytes/100 WBC (Bld) 15.0 % Critically low 20.5-60.0 [facility] Comment on above: Performed By: #### T SH #### [facility] [address] [place] [address] Dr. Venkat Sloan MANUAL DIFF REQ NO Normal [facility] Comment on above: Performed By: #### T SH #### [facility] [address] [place] [address] Dr. Venkat Sloan MCH (RBC) [Entitic mass] 28.5 pg Normal 26.7-34.0 [facility] Comment on above: Performed By: #### T SH #### [facility] [address] [place] [address] Dr. Venkat Sloan MCHC (RBC) [Mass/Vol] 31.9 g/dL Normal 29.9-35.2 [facility] Comment on above: Performed By: #### T SH #### [facility] [address] [place] [address] Dr. Venkat Sloan MCV (RBC) [Entitic vol] 89.3 fL Normal 81.0-99.0 [facility] Comment on above: Performed By: #### T SH #### [facility] [address] [place] [address] Dr. Venkat Sloan MONO # 0.9 103/ul Critically high 0.3-0.8 [facility] Comment on above: Performed By: #### T SH #### [facility] [address] [address] [address] Venkat Sloan Monocytes/100 WBC (Bld) 8.8 % Normal 1.7-12.0 [facility] Comment on above: Performed By: #### T SH #### [facility] [address] [address] [address] Venkat Sloan NEUT # 7.9 103/ul Critically high 1.4-6.5 [facility] Comment on above: Performed By: #### T SH #### [facility] [address] [address] [address] Venkat Sloan Neutrophils/100 WBC (Bld) 74.3 % Normal 43.0-75.0 [facility] Comment on above: Performed By: #### T SH #### [facility] [address] [place] [address] Dr. Venkat Sloan Platelet mean volume (Bld) [Entitic vol] 9.2 fL Critically low 9.5-13.5 [facility] Comment on above: Performed By: #### T SH #### [facility] [address] [address] [address] Venkat Sloan PLT 300 103/ul Normal 150-450 [facility] Comment on above: Performed By: #### T SH #### [facility] [address] [place] [address] Dr. Venkat Sloan RBC 4.60 106/ul Normal 4.20-5.40 [facility] Comment on above: Performed By: #### T SH #### [facility] [address] [place] [address] Dr. Venkat Sloan WBC 10.7 103/ul Normal 4.0-11.0 [facility] Comment on above: Performed By: #### T SH #### [facility] [address] [place] [address] Dr. Venkat Sloan GLYCOHEMOGLOBIN A1Con 2021 ADA RECOMMENDATION SEE BELOW Normal [facility] Comment on above: Result Comment: ADA RECOMMENDED LIMIT 4.0 - 6.0 ADA THERAPEUTIC TARGET < 7.0 ACTION SUGGESTED > 7.0 Performed By: #### P REGQNT #### [facility] [address] [place] [address] Dr. Venkat Sloan Glucose [Mass/Vol] 100 mg/dL Normal [facility] Comment on above: Performed By: #### P REGQNT #### [facility] [address] [place] [address] Dr. Venkat Sloan HbA1c (Bld) [Mass fraction] 5.1 % Normal 4.5-6.2 [facility] Comment on above: Performed By: #### P REGQNT #### [facility] [address] [place] [address] Dr. Venkat Sloan TSHon 01-13-2022 TSH 1.098 uIU/mL Normal 0.358-3.740 [facility] Comment on above: Performed By: #### T SH #### [facility] [address] [place] [address] Dr. Venkat Sloan Covid-19 PCR ([facility])on 12-26 SARS-CoV-2 (COVID-19) RNA SHIRIN+probe Ql (Unsp spec) Not detected Normal NOT DETECTED [facility] Comment on above: Result Comment: This test is not yet approved or cleared by the [place] FDA. When there are no FDA-approved or cleared tests available, and other criteria are met, FDA can make tests available under an emergency access mechanism called an Emergency Use Authorization (EUA). The EUA for this test is supported by the Rendering Equipment Tender of Health and Human Service's (HHS's) [...] SARS-CoV-2. Performed By: #### I NFLUAB #### [facility] [address] [place] [address] Dr. Venkat Sloan PREG QUANT HCGon 12-24-2021 HCG QUANT <1 Normal [facility] Comment on above: Performed By: #### P REGQNT #### [facility] [address] [address] [address] Venkat Sloan HCG RANGE SEE BELOW Normal [facility] Comment on above: Result Comment: 5-50 0.2-1 WEEK 50-500 1-2 WEEKS 100-5,000 2-3 WEEKS 500-10,000 3-4 WEEKS 1,000-50,000 4-5 WEEKS 10,000-100,000 5-6 WEEKS 15,000-200,000 6-8 WEEKS 10,000-100,000 2-3 MONTHS Performed By: #### P REGQNT #### [facility] [address] [place] [address] Dr. Venkat Sloan HCG-BETA SUBUNIT QUANTon hCG,Beta Subunit,Qnt,Serum <1 Normal [facility] Comment on above: Result Comment: Fema le (Non-) 0 - 5 (Postmenopausal) 0 - 8 . Female () Weeks of Gestation 3 6 - 71 4 10 - 750 5 766 - 2038 6 176 - 48668 7 [phone] -[phone] 8 02627 -[id number] 9 07775 -333310 10 37923 -[phone] 12 00128 -[id number] 14 61925 - 97643 15 06480 - 28221 16 0723 - 93141 17 1038 - 69562 18 5176 - 89941 Aj ECLIA methodology Performed By: #### T SH #### [facility] [address] [place] [address] Dr. Venkat Sloan BRETT by IFAon 09-29-2021 Antinuclear Antibodies, IFA Negative Normal [facility] Comment on above: Result Comment: Nega tive <1:80 Borderline 1:80 Positive >1:80 ICAP nomenclature: AC-0 For more information about Hep-2 cell patterns use ANApatterns.org, the official website for the International Consensus on Antinuclear Antibody (BRETT) Patterns (ICAP). Performed By: #### A NAIFA #### [facility] [address] [place] [address] Dr. Venkat Sloan INSULINon 09-29-2021 Insulin 11.1 uIU/mL Normal 2.6-24.9 [facility] Comment on above: Performed By: #### T SH #### [facility] [address] [place] [address] Dr. Venkat Sloan ANTISTREPTOLYSIN O AB (ASO)o n 09-27-2021 Antistreptolysin O Ab <20.0 Normal 0.0-200.0 [facility] Comment on above: Performed By: #### P REGQNT #### [facility] [address] [place] [address] Dr. Venkat Sloan RHEUMATOID FACTORon 09-28-19 RA Latex Turbid. <10.0 Normal <14.0 [facility] Comment on above: Performed By: #### R F #### [facility] [address] [place] [address] Dr. Venkat Sloan CBC AUTO DIFFon 09-26-2021 BASO # 0.0 103/ul Normal 0.0-0.1 [facility] Comment on above: Performed By: #### T SH #### [facility] [address] [place] [address] Dr. Venkat Sloan Basophils/100 WBC (Bld) 0.3 % Normal 0.2-2.0 [facility] Comment on above: Performed By: #### T SH #### [facility] [address] [place] [address] Dr. Venkat Sloan EO # 0.1 103/ul Normal 0.0-0.7 [facility] Comment on above: Performed By: #### T SH #### [facility] [address] [place] [address] Dr. Venkat Sloan Eosinophils/100 WBC (Bld) 1.8 % Normal 0.9-7.0 [facility] Comment on above: Performed By: #### T SH #### [facility] [address] [place] [address] Dr. Venkat Sloan Erythrocyte distribution width (RBC) [Ratio] 12.9 % Normal 11.0-15.0 [facility] Comment on above: Performed By: #### T SH #### [facility] [address] [place] [address] Dr. Venkat Sloan Hematocrit (Bld) [Volume fraction] 39.8 % Normal 36.0-48.0 [facility] Comment on above: Performed By: #### T SH #### [facility] [address] [place] [address] Dr. Venkat Sloan Hemoglobin (Bld) [Mass/Vol] 12.7 g/dL Normal 12.0-16.0 [facility] Comment on above: Performed By: #### T SH #### [facility] [address] [place] [address] Dr. Venkat Sloan IG # 0.02 10e3/ul Normal 0.00-0.03 [facility] Comment on above: Performed By: #### T SH #### [facility] [address] [place] [address] Dr. Venkat Sloan IG % 0.3 % Normal 0.0-0.5 [facility] Comment on above: Performed By: #### T SH #### [facility] [address] [place] [address] Dr. Venkat Sloan LYMPH # 1.5 103/ul Normal 1.2-3.8 [facility] Comment on above: Performed By: #### T SH #### [facility] [address] [place] [address] Dr. Venkat Sloan Lymphocytes/100 WBC (Bld) 21.5 % Normal 20.5-60.[address] [facility] Comment on above: Performed By: #### T SH #### [facility] [address] [place] [address] Dr. Venkat Sloan MANUAL DIFF REQ NO Normal [facility] Comment on above: Performed By: #### T SH #### [facility] [address] [place] [address] Dr. Venkat Sloan MCH (RBC) [Entitic mass] 28.5 pg Normal 26.7-34.0 [facility] Comment on above: Performed By: #### T SH #### [facility] [address] [place] [address] Dr. Venkat Sloan MCHC (RBC) [Mass/Vol] 31.9 g/dL Normal 29.9-35.2 [facility] Comment on above: Performed By: #### T SH #### [facility] [address] [place] [address] Dr. Venkat Sloan MCV (RBC) [Entitic vol] 89.2 fL Normal 81.0-99.0 [facility] Comment on above: Performed By: #### T SH #### [facility] [address] [place] [address] Dr. Venkat Sloan MONO # 0.5 103/ul Normal 0.3-0.8 [facility] Comment on above: Performed By: #### T SH #### [facility] [address] [place] [address] Dr. Venkat Sloan Monocytes/100 WBC (Bld) 7.6 % Normal 1.7-12.0 [facility] Comment on above: Performed By: #### T SH #### [facility] [address] [place] [address] Dr. Venkat Sloan NEUT # 4.9 103/ul Normal 1.4-6.5 [facility] Comment on above: Performed By: #### T SH #### [facility] [address] [place] [address] Dr. Venkat Sloan Neutrophils/100 WBC (Bld) 68.5 % Normal 43.0-75.0 [facility] Comment on above: Performed By: #### T SH #### [facility] [address] [place] [address] Dr. Venkat Sloan Platelet mean volume (Bld) [Entitic vol] 8.8 fL Critically low 9.5-13.5 [facility] Comment on above: Performed By: #### T SH #### [facility] [address] [place] [address] Dr. Venkat Sloan PLT 297 103/ul Normal 150-450 [facility] Comment on above: Performed By: #### T SH #### [facility] [address] [place] [address] Dr. Venkat Sloan RBC 4.46 106/ul Normal 4.20-5.40 [facility] Comment on above: Performed By: #### T SH #### [facility] [address] [place] [address] Dr. Venkat Sloan WBC 7.1 103/ul Normal 4.0-11.0 [facility] Comment on above: Performed By: #### T SH #### [facility] [address] [place] [address] Dr. Venkat Sloan CRPon 09-26-2021 CRP [Mass/Vol] mg/L Normal <=1.0 [facility] Comment on above: Performed By: #### P REGQNT #### [facility] [address] [place] [address] Dr. Venkat Sloan FREE THYROXINE INDEX T7on FTI 2.71 Normal 1.30-4.50 [facility] Comment on above: Performed By: #### P REGQNT #### [facility] [address] [place] [address] Dr. Venkat Sloan T3U 33.0 % Normal 30.0-39.0 [facility] Comment on above: Performed By: #### P REGQNT #### [facility] [address] [place] [address] Dr. Venkat Sloan T4 [Mass/Vol] 8.20 ug/dL Normal 4.80-13.90 [facility] Comment on above: Performed By: #### P REGQNT #### [facility] [address] [place] [address] Dr. Venkat Sloan GLYCOHEMOGLOBIN A1Con 2021 ADA RECOMMENDATION SEE BELOW Normal [facility] Comment on above: Result Comment: ADA RECOMMENDED LIMIT 4.0 - 6.0 ADA THERAPEUTIC TARGET < 7.0 ACTION SUGGESTED > 7.0 Performed By: #### I NFLUAB #### [facility] [address] [place] [address] Dr. Venkat Sloan Glucose [Mass/Vol] 105 mg/dL Normal [facility] Comment on above: Performed By: #### I NFLUAB #### [facility] [address] [place] [address] Dr. Venkat Sloan HbA1c (Bld) [Mass fraction] 5.3 % Normal 4.5-6.2 [facility] Comment on above: Performed By: #### I NFLUAB #### [facility] [address] [place] [address] Dr. Venkat Sloan IRONon 09-26-2021 Iron [Mass/Vol] 49.0 ug/dL Critically low 50.0-170.0 [facility] Comment on above: Performed By: #### P REGQNT #### [facility] [address] [place] [address] Dr. Venkat Sloan LIPID PROFILEon 09-26-2021 CHOL-HDL RATIO NORM SEE BELOW Normal [facility] Comment on above: Result Comment: 3.3 - 4.4 LOW RISK 4.4 - 7.1 AVERAGE RISK 7.1 - 11.0 MODERATE RISK >11.0 HIGH RISK Performed By: #### P REGQNT #### [facility] [address] [place] [address] Dr. Venkat Sloan Cholesterol [Mass/Vol] 197 mg/dL Normal <=200 [facility] Comment on above: Performed By: #### P REGQNT #### [facility] [address] [place] [address] Dr. Venkat Sloan Cholesterol in HDL [Mass/Vol] 64 mg/dL Critically high 40-60 [facility] Comment on above: Performed By: #### P REGQNT #### [facility] [address] [place] [address] Dr. Venkat Sloan Cholesterol in LDL [Mass/Vol] 123.4 mg/dL Normal [facility] Comment on above: Performed By: #### P REGQNT #### [facility] [address] [place] [address] Dr. Venkat Sloan Cholesterol.total/Choles terol in HDL [Mass ratio] 3.1 {ratio} Normal [facility] Comment on above: Performed By: #### P REGQNT #### [facility] [address] [address] [address] Venkat Sloan HDL NORMAL > or = 60 mg/dl - LO W CARDIOVASCULAR RISK <40 mg/dl - HIGH CARDIOVASCULAR RISK Normal [facility] Comment on above: Performed By: #### P REGQNT #### [facility] [address] [address] [address] Venkat Sloan LDL CALC NORMAL SEE BELOW Normal [facility] Comment on above: Result Comment: <100 mg/dl OPTIMAL 100 - 129 mg/dl NEAR OR ABOVE OPTIMAL 130 - 159 mg/dl BORDERLINE HIGH 160 - 189 mg/dl HIGH >190 mg/dl VERY HIGH Performed By: #### P REGQNT #### [facility] [address] [address] [address] Venkat Sloan Triglyceride [Mass/Vol] 48 mg/dL Normal <=150 T [facility] Comment on above: Performed By: #### P REGQNT #### [facility] [address] [address] [address] Venkat Sloan VLDL CALC 9.6 mg/dL Normal [facility] Comment on above: Performed By: #### P REGQNT #### [facility] [address] [address] [address] Venkat Sloan PROF 14(COMP METB)on 022 Albumin [Mass/Vol] 4.0 g/dL Normal 3.4-5.0 [facility] Comment on above: Performed By: #### I NFLUAB #### [facility] [address] [address] [address] Venkat Sloan Albumin/Globulin [Mass ratio] 1.3 {ratio} Normal [facility] Comment on above: Performed By: #### I NFLUAB #### [facility] [address] [address] [address] Venkat Sloan ALP [Catalytic activity/Vol] 58 U/L Normal 46-116 [facility] Comment on above: Performed By: #### I NFLUAB #### [facility] [address] [address] [address] Venkat Sloan ALT [Catalytic activity/Vol] 20 U/L Normal 14-59 [facility] Comment on above: Performed By: #### I NFLUAB #### [facility] [address] [address] [address] Venkat Sloan Anion gap [Moles/Vol] 10.4 mmol/L Normal [facility] Comment on above: Performed By: #### I NFLUAB #### [facility] [address] [address] [address] Venkat Sloan AST [Catalytic activity/Vol] 11 U/L Critically low 15-37 [facility] Comment on above: Performed By: #### I NFLUAB #### [facility] [address] [address] [address] Venkat Sloan Bilirubin [Mass/Vol] 0.8 mg/dL Normal 0.2-1.0 [facility] Comment on above: Performed By: #### I NFLUAB #### [facility] [address] [address] [address] Venkat Sloan Calcium [Mass/Vol] 9.0 mg/dL Normal 8.5-10.1 [facility] Comment on above: Performed By: #### I NFLUAB #### [facility] [address] [address] [address] Venkat Sloan Chloride [Moles/Vol] 106 mmol/L Normal 98-107 [facility] Comment on above: Performed By: #### I NFLUAB #### [facility] [address] [address] [address] Venkat Sloan CO2 [Moles/Vol] 27.0 mmol/L Normal 21.0-32.0 [facility] Comment on above: Performed By: #### I NFLUAB #### [facility] [address] [address] [address] Venkat Sloan Creatinine [Mass/Vol] 0.70 mg/dL Normal 0.55-1.02 [facility] Comment on above: Performed By: #### I NFLUAB #### [facility] [address] [address] [address] Venkat Sloan EGFR-AF [place] >60 Normal >=60 [facility] Comment on above: Performed By: #### I NFLUAB #### [facility] [address] [address] [address] Venkat Sloan EGFR-NON AF [place] >60 Normal >=60 [facility] Comment on above: Performed By: #### I NFLUAB #### [facility] [address] [address] [address] Venkat Sloan Globulin (S) [Mass/Vol] 3.2 g/dL Normal T [facility] Comment on above: Performed By: #### I NFLUAB #### [facility] [address] [address] [address] Venkat Sloan Glucose [Mass/Vol] 92 mg/dL Normal 74-106 [facility] Comment on above: Performed By: #### I NFLUAB #### [facility] [address] [address] [address] Venkat Sloan Potassium [Moles/Vol] 4.4 mmol/L Normal 3.5-5.1 [facility] Comment on above: Performed By: #### I NFLUAB #### [facility] [address] [place] [address] Dr. Venkat Sloan Protein [Mass/Vol] 7.2 g/dL Normal 6.4-8.2 [facility] Comment on above: Performed By: #### I NFLUAB #### [facility] [address] [address] [address] Venkat Sloan Sodium [Moles/Vol] 139 mmol/L Normal 136-145 [facility] Comment on above: Performed By: #### I NFLUAB #### [facility] [address] [address] [address] Venkat Sloan Urea nitrogen [Mass/Vol] 13.0 mg/dL Normal 7.0-18.0 [facility] Comment on above: Performed By: #### I NFLUAB #### [facility] [address] [place] [address] Dr. Venkat Sloan Urea nitrogen/Creatinine [Mass ratio] 18.6 mg/mg Normal [facility] Comment on above: Performed By: #### I NFLUAB #### [facility] [address] [place] [address] Dr. Venkat Sloan TSHon 09-26-2021 TSH 1.318 uIU/mL Normal 0.358-3.740 [facility] Comment on above: Performed By: #### P REGQNT #### [facility] [address] [place] [address] Dr. Venkat Sloan URIC ACID SERUMon 09-26-2021 Urate [Mass/Vol] 3.9 mg/dL Normal 2.6-6.0 [facility] Comment on above: Performed By: #### P REGQNT #### [facility] [address] [place] [address] Dr. Venkat Sloan XR CSPINE MIN 4 [...] DUDLEY HERNÁNDEZ Date: 2021-09-24 21:16 Normal [facility] PREG QUANT HCGon 08-17-2021 HCG QUANT <1 Normal [facility] Comment on above: Performed By: #### I NFLUAB #### [facility] [address] [place] [address] Dr. Venkat Sloan HCG RANGE SEE BELOW Normal [facility] Comment on above: Result Comment: 5-50 0-1 WEEK 40-300 1-2 WEEKS 100-1,000 2-3 WEEKS 500-6,000 3-4 WEEKS 5,000-200,000 1-2 MONTHS 10,000-100,000 2-3 MONTHS 3,000-50,000 2ND TRIMESTER 1,000-50,000 3RD TRIMESTER Performed By: #### I NFLUAB #### [facility] [address] [place] [address] Dr. Venkat Sloan US PELVIS AND TRANSVAGon [...] DUDLEY HERNÁNDEZ Date: 2021-08-17 07:01 Normal [facility] COVID Quick Testingon 2020 Result Negative [facility] Other Vital Signs Date Time Vital Sign Value Performing Clinician Facility 05-22-2023 09:050 Body height 154.94 cm [facility] 05-22-2023 09:270500 Body mass index (BMI) [Ratio] 30.8 kg/m2 [facility] 05-22-2023 09:0500 Body temperature 98.1 [degF] [facility] 05-22-2023 09:050 Body weight 74.04 kg [facility] 05-22-2023 09:27-0500 Heart rate 78 /min [facility] 05-22-2023 09:0500 Respiratory rate 16 /min [facility] 05-22-2023 09:27-0500 SaO2% (BldA) [Mass fraction] 98 % [facility] 05-10-2023 15:14-0500 Body mass index (BMI) [Ratio] 30.04 kg/m2 Ricardo Jennifer DO Work Phone: [facility] 05-10-2023 15:14-0500 Body weight 72.12 kg Ricardo Jennifer DO Work Phone: [facility] 05-10-2023 15:14-0500 Diastolic blood pressure 70 mm[Hg] Ricardo Jennifer DO Work Phone: [facility] 05-10-2023 15:14-0500 Systolic blood pressure 110 mm[Hg] Ricardo Jennifer DO Work Phone: [facility] 01-27-2021 18:45-0400 Body height 154.94 cm Mohini Juan Other [facility] Other 01-27-2021 18:45-0400 Body mass index (BMI) [Ratio] 28.34 kg/m2 Mohini Juan Other [facility] Other 01-27-2021 18:45-0400 Body temperature 96.4 [degF] Mohini Juan Other [facility] Other 01-27-2021 18:45-0400 Body weight 68.04 kg Mohini Juan Other [facility] Other 01-27-2021 18:45-0400 Respiratory rate 18 /min Mohini Juan Other [facility] Other 01-27-2021 18:45-0400 SaO2% (BldA) [Mass fraction] 99 % Mohini Juan Other [facility] Other 12-22-2020 11:45-0400 Body height 154.94 cm Dudley Freeman Other [facility] Other 12-22-2020 11:45-0400 Body mass index (BMI) [Ratio] 28.34 kg/m2 Dudley Freeman Other [facility] Other 12-22-2020 11:45-0400 Body weight 68.04 kg Dudley Freeman Other [facility] Other Encounters Encounter Date Encounter Type Care Provider Facility Start: 05-22-2023 End: 05-22-2023 ambulatory [facility] Work Phone: Start: 05-22-2023 End: 05-22-2023 Patient encounter procedure [facility] Work Phone: Start: 05-10-2023 End: 05-10-2023 ambulatory RICARDO RODRIGUEZ [...] preprocedural examination DR RICARDO RODRIGUEZ . [facility] Start: 07-08-2022 End: 07-08-[address] [...] abnormal findings DR IRON GARCIA . [facility] Start: 09-26-2021 End: 09-27-[address] [...] 01-27-2021 End: 01-27-2021 ambulatory Mohini Martinez Other [facility] Other Start: 01-27-2021 Office outpatient vi sit 15 minutes Mohini Martinez [facility] Start: 12-22-2020 Office outpatient ne w 45 minutes Dudley Freeman [facility] Procedures Date Procedure Procedure Detail Performing Clinician Start: 05-22-2023 POC COVID/FLU/RSV Start: 05-10-2023 Urnls dip stick/tabl et rgnt non-auto w/o micrscp Ricardo Rodriguez DO Work Phone: Plan of Treatment Date Care Activity Detail Author Start: 05-26-2023 End: 05-26-2023 Patient encounter procedure 05/26/2023 9:50 AM EST Routine [facility] [address] [place] [address] Ricardo Rodriguez, DO [address] [place], [place] [id number] [facility] Start: 05-10-2023 End: 05-10-2024 CBC panel - Blood by Automated count CBC Lab Routine Diabetes mellitus screening Expected: 05/10/2023 (Approximate), Expires: 05/10/2024 [facility] Work Phone: Comment on above: Expected: 05/10/2023 (Approximate), Expires: 05/10/2024 Start: 05-10-2023 End: 05-10-2024 Measurement of glucose 1 hour after glucose challenge for glucose tolerance test Glucose tolerance, 1 hour Lab Routine Diabetes mellitus screening Expected: 05/10/2023 (Approximate), Expires: 05/10/2024 [facility] Comment on above: Expected: 05/10/2023 (Approximate), Expires: 05/10/2024 Start: 11-26-2022 Influenza vaccination Influenz a Vaccine (#1) [facility] Immunizations Immunization Date Immunization Notes Care Provider Fa cili 01-25-2022 influenza virus vacc ine, unspecified formulation Ricardo Rodriguez DO Work Phone: [facility] Payers Date Payer Category Payer Unknown BCBS BCBS xxxxxx [id number] 2022-Present [phone] [address] [place] [address] [id number] 1993 Unknown [id number] 2.16.840.1.372644.3.579.2.59 1993 Unknown [id number] 2.16.840.1.516744.3.579.2.593 1993 Unknown [id number] 2.16.840.1.491911.3.579.2.59 1993 Unknown [id number] 2.16.840.1.706756.3.579.2.593 1993 Unknown [id number] 2.16.840.1.582666.3.579.2.59 1993 Unknown [id number] 2.16.840.1.415544.3.579.2.59 1993 Unknown [id number] 2.16.840.1.825746.3.579.2.59 1993 Unknown [id number] 2.16.840.1.817676.3.579.2.593 1993 Unknown [id number] 2.16.840.1.305755.3.579.2.593 1993 Unknown [id number] 2.16.840.1.643688.3.579.2.593 1993 Unknown [id number] 2.16.840.1.339449.3.579.2.59 1993 Unknown [id number] 2.16.840.1.458664.3.579.2.593 1993 Unknown [id number] 2.16.840.1.369231.3.579.2.59 1993 Unknown [id number] 2.16.840.1.285836.3.579.2.59 1993 Unknown [id number] 2.16.840.1.655832.3.579.2.59 1993 Unknown [id number] 2.16.840.1.255483.3.579.2.59 1993 Unknown [id number] 2.16.840.1.568491.3.579.2.59 1993 Unknown [id number] 2.16.840.1.002594.3.579.2.593 1993 Unknown [id number] 2.16.840.1.111440.3.579.2.59 1993 Unknown [id number] 2.16.840.1.408046.3.579.2.59 1993 Unknown [id number] 2.16.840.1.819746.3.579.2.59 1993 Unknown [id number] 2.16.840.1.086814.3.579.2.59 1993 Unknown [id number] 2.16.840.1.502996.3.579.2.59 1993 Unknown [id number] 2.16.840.1.434940.3.579.2.593 1993 Unknown [id number] 2.16.840.1.651072.3.579.2.593 1993 Unknown [id number] 2.16.840.1.065654.3.579.2.9 1993 Unknown [id number] 2.16.840.1.341284.3.579.2.9 1993 Unknown [id number] 2.16.840.1.242784.3.579.2.9 1993 Unknown [id number] 2.16.840.1.265579.3.579.2.1259 1959 Unknown [id number] 1959 Unknown [id number] Self-pay Self Pay [id number] Unknown [id number] 2.16. 840.1.510305.19 Unknown [facility] [id number] Unknown [employer] BC/BS [id number] Social History Date Type Detail Facility Unknown if ever smoked [facility] Other Start: 01-28-2023 Sex Assigned At [facility] Other Start: 01-28-2023 End: 05-22-2023 Tobacco smoking status NHIS Never smoked tobacco [...] on 1 occasion? Weekly [facility] Start: 11-03-2023 Alcohol Comment caffeine: occasional [facility] Start: 11-26-2022 [facility] Start: 1995 Sex Assigned At Female [facility] Start: 11-22-2022 Gender identity Identifies as female gender (finding) [facility] Start: 11-22-2022 Sexual orientation Heterosexual (finding) [facility] History of Present illness Narrative 05-10-2023 Melissa Thornton, HORSE [employer]ER - 05/10/2023 2:50 PM EST Note Date & Type Note Facility 05-10-2023 History of Presen t illness Narrative Reason for Appointment: Patient ID: Kasandra Macias is a 27 y.o. female who [...] nursing note reviewed. Exam conducted with a supervisor boilermaking shop present. Vitals: Estimated body mass index is [...] Ricardo Rodriguez DO documented in this encounter [facility] Clinical Note 07-08-2022 Note Date & Type Note Facility 07-08-2022 Note OPERATIVE NOTE OPERATION DATE: 07/08/2022 PROCEDURE: Diagnostic laparoscopy with fulguration of ovarian endometrial implant. PREOPERATIVE DIAGNOSIS: Pelvic pain. POSTOPERATIVE DIAGNOSIS: Pelvic pain. ANESTHESIA: General. SURGEON: Ricardo Rodriguez D.O. DRAGGER OUT: DEVIN Miles URINE OUTPUT: Yellow and clear. [...] to Recovery Room in stable condition. [facility] Evaluation note 12-22-2020 Note Date & Type Note Facility 12-22-2020 Evaluation note Encounter Date Diagnosis Assessment Notes Nov, Irritable bowel syndrome with both constipation and diarrhea (ICD-10 - K58.2) LABS INDICATED ABOVE START TRIAL OF DICYCLOMINE 20 BID RTO 4 WEEKS [facility] Other Evaluation note Note Date & Type Note Facility Evaluation note [employer] Other Evaluation note Note Date & Type Note Facility Evaluation note Diagnosis Second trimester state, incidental Diabetes mellitus screening Screening for diabetes mellitus documented in this encounter [facility] Evaluation note Note Date & Type Note Facility Evaluation note No assessment information availa [facility] Work Phone: History general Narrative - Reported Note Date & Type Note Facility History general Narrative - Reported Type Medical History anxiety/depression Medical History IBS Surgical History TONSILLECTOMY [facility] Other History general Narrative - Reported Note Date & Type Note Facility History general Narrative - Reported [facility] Other Summary Purpose Family History Relationship Condition Age at Onset Recorded Date/T ricardo brother Unknown father Unknown Hypertension Unknown grandparent Hypertension Unknown Diabetes mellitus Unknown grandparent Diabetes mellitus Unknown Not Specified Malignant neoplasm Unknown Advance Directives Advance Directive Response Recorded Date/ Time Advance Directives No April 9:19am Chief Complaint and Reason for Visit Chief Complaint deep cough, exposed to RSV and flu Additional Source Comments REASON FOR VISIT (unrecogniz ed section and content) Reason Comments Routine Visit INFORMATION SOURCE (unrecogn ized section and content) DATE CREATED AUTHOR 07/13/2022 [facility] DATE CREATED AUTHOR AUTHOR'S ORGANIZ ATION 05/12/2023 [facility] EPIC Care Teams (unrecognized sec tion and content) Interventional Radiologist Relationship Specialty Start Date End Date Iron Garcia MD [address] [place] [address] PCP - General Family Medicine 11/23/22 Team Status: Active Member Role Status Yaakov Garcia MD Primary Care Provider Active Team Status: Inactive Member Role Status Yaakov Garcia MD Primary Care Provider Active Start: May 22, 2023 End: May 22, 2023 Teresa Wilkins APRN Attending Provider Active Start: May 22, 2023 End: May 22, 2023 Goals (unrecognized section and content) Goals may be documented in a n alternate section FOR RECORDS PERTAINING TO PATIENTS WHO ARE [...] BE BASED ON THE PRIMARY CLINICAL RECORDS. [facility] [employer] provides no warranty or guarantee of the accuracy or completeness of information in this document.
[2023-05-27 08:23] LABS: Estimated Average Glucose 94 mg/dL; Glycohemoglobin A1C 4.9 % (4.5-6.2)
== END 2023-05-27 07:46 | disposition home or self-care (01) ==
LOC: LAB 07:46
PROVIDERS: PCP Family Medicine; Visit Provider Obstetrics & Gynecology
DX: E16.2 Hypoglycemia, unspecified (principal); D64.9 Anemia, unspecified
CPT/HCPCS: 36415; 83036

== ENCOUNTER 2023-06-09 15:02 | Outpatient (OUT) | payer BC, SELFPAY ==
--- NOTE | 2023-06-09 15:04 | US_ITS ---
[address] [address] Patient Name: ESTER BRADFORD MRN: [facility]:[id number] date: 1995 Sex: F Assigned Patient Location: US Current Patient Location: LAB Accession/Order Number: [id number] Exam Date: 06/09/2023 15:05 Report Date: 06/09/2023 15:45 At the request of: RICARDO LEGGETT Procedure: US OB amniotic fluid vol EXAMINATION: US OB amniotic fluid vol HISTORY: Polyhydramnios O40.9XX0 COMPARISON: Ultrasound OB growth 05/26/2023 TECHNIQUE: Limited sonographic examination for amniotic fluid volume FINDINGS: presentation: Breech Amniotic fluid volume: 24.2 cm (95th percentile is 23.4 cm). Heart rate: 143 bpm GA: 29 weeks 6 days NITHYA 08/19/2023 US/US OB amniotic fluid vol IMPRESSION: 1. Polyhydramnios; increased since prior study. Electronically authenticated by: JUDITH MACHUCA Date: 06/09/2023 15:45
--- OUTSIDE RECORDS SUMMARY | 2023-06-09 15:24 | XMS_ITS | CCD ---
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 Name Role Phone Lydia Dudley Unavailable Mohini [...] Unavailable HOY ., DR PERDUE Consulting Unavailable DOWNING, DR DUDLEY Emanuel Consulting Unavailable JENNIFER ., [...] DR SILVA Attending Unavailable HOY ., DR PEDRUE Primary Care Unavailable Iron Garcia MD Primary Care Provider [phone] RICARDO RODRIGUEZ Attending Unavailable RICARDO RODRIGUEZ Attending Unavailable JENNIFER, RICARDO Attending Unavailable JENNIFER, RICARDO Attending Unavailable JENNIFERRICARDO Attending Unavailable Medications Current Medications Medication Drug Class(es) Dates Sig (Normalized) Sig (Original) [id number] 200 actuat albuterol 0.09 mg/actuat metered dose [...] DAILY NEEDED FOR NAUSEA 0 02/19/2023 Active [id number] Fum-Folic Ac-Om3 (One A Day Women's Dha) 28 mg iron- 800 mcg combo pack (1 source) Start: 05-22-2023 [id number]-Akdz Fum-Folic Ac-Om3 (One A Day Women's Dha) [...] SARS-CoV-2 (COVID-19) RNA SHIRIN+probe Ql (Unsp spec) [facility] Urinalysis macro (dipstick) panel (U)on 05-10-2023 Bilirubin, UA Negative Negative - 4(70) +++ mg/dL [facility] Blood, UA Negative Negative - 50 Jayson/mcL [facility] Clarity, UA Clear [facility] Color, UA Yellow [facility] Glucose, UA Negative Negative - 1999(110) ++++ mg/dL [facility] Interpretation and review of laboratory results Abnormal [facility] Ketones, UA Positive Negative - 160(16) ++++ mg/dL [facility] Comment on above: trace Leukocytes, UA Trace Negative - 500+++ Lolita/mcL [facility] Nitrite, UA Negative Negative - Positive [facility] pH, UA 6.0 5 - 9 [facility] Protein, UA Negative Negative - 2000(20) ++++ mg/dL [facility] Spec Grav, UA 1.030 1 - 1.03 [facility] Urobilinogen, UA 0.2 0.2 - 12 mg/dL [facility] CBC AUTO DIFFon 07-08-2022 BASO # 0.0 103/ul Normal 0.0-0.1 [facility] Comment on above: Performed By: #### R F #### [facility] [address] [address] [address] Venkat Sloan Basophils/100 WBC (Bld) 0.5 % Normal 0.2-2.0 [facility] Comment on above: Performed By: #### R F #### [facility] [address] [place] [address] Dr. Venkat Sloan EO # 0.1 103/ul Normal 0.0-0.7 [facility] Comment on above: Performed By: #### R F #### [facility] [address] [place] [address] Dr. Venkat Sloan Eosinophils/100 WBC (Bld) 1.7 % Normal 0.9-7.0 [facility] Comment on above: Performed By: #### R F #### [facility] [address] [place] [address] Dr. Venkat Sloan Erythrocyte distribution width (RBC) [Ratio] 12.7 % Normal 11.0-15.0 [facility] Comment on above: Performed By: #### R F #### [facility] [address] [place] [address] Dr. Venkat Sloan Hematocrit (Bld) [Volume fraction] 40.4 % Normal 36.0-48.0 [facility] Comment on above: Performed By: #### R F #### [facility] [address] [place] [address] Dr. Venkat Sloan Hemoglobin (Bld) [Mass/Vol] 13.1 g/dL Normal 12.0-16.0 [facility] Comment on above: Performed By: #### R F #### [facility] [address] [place] [address] Dr. Venkat Sloan IG # 0.02 10e3/ul Normal 0.00-0.03 [facility] Comment on above: Performed By: #### R F #### [facility] [address] [place] [address] Dr. Venkat Sloan IG % 0.3 % Normal 0.0-0.5 [facility] Comment on above: Performed By: #### R F #### [facility] [address] [place] [address] Dr. Venkat Sloan LYMPH # 2.0 103/ul Normal 1.2-3.8 [facility] Comment on above: Performed By: #### R F #### [facility] [address] [place] [address] Dr. Venkat Sloan Lymphocytes/100 WBC (Bld) 26.2 % Normal 20.5-60.0 [facility] Comment on above: Performed By: #### R F #### [facility] [address] [place] [address] Dr. Venkat Sloan MANUAL DIFF REQ NO Normal [facility] Comment on above: Performed By: #### R F #### [facility] [address] [place] [address] Dr. Venkat Sloan MCH (RBC) [Entitic mass] 28.4 pg Normal 26.7-34.0 [facility] Comment on above: Performed By: #### R F #### [facility] [address] [place] [address] Dr. Venkat Sloan MCHC (RBC) [Mass/Vol] 32.4 g/dL Normal 29.9-35.2 [facility] Comment on above: Performed By: #### R F #### [facility] [address] [place] [address] Dr. Venkat Sloan MCV (RBC) [Entitic vol] 87.4 fL Normal 81.0-99.0 [facility] Comment on above: Performed By: #### R F #### [facility] [address] [place] [address] Dr. Venkat Sloan MONO # 0.7 103/ul Normal 0.3-0.8 [facility] Comment on above: Performed By: #### R F #### [facility] [address] [place] [address] Dr. Venkat Sloan Monocytes/100 WBC (Bld) 8.8 % Normal 1.7-12.0 [facility] Comment on above: Performed By: #### R F #### [facility] [address] [place] [address] Dr. Venkat Sloan NEUT # 4.8 103/ul Normal 1.4-6.5 [facility] Comment on above: Performed By: #### R F #### [facility] [address] [place] [address] Dr. Venkat Sloan Neutrophils/100 WBC (Bld) 62.5 % Normal 43.0-75.0 [facility] Comment on above: Performed By: #### R F #### [facility] [address] [place] [address] Dr. Venkat Sloan Platelet mean volume (Bld) [Entitic vol] 8.5 fL Critically low 9.5-13.5 [facility] Comment on above: Performed By: #### R F #### [facility] [address] [place] [address] Dr. Venkat Sloan PLT 331 103/ul Normal 150-450 [facility] Comment on above: Performed By: #### R F #### [facility] [address] [place] [address] Dr. Venkat Sloan RBC 4.62 106/ul Normal 4.20-5.40 [facility] Comment on above: Performed By: #### R F #### [facility] [address] [place] [address] Dr. Venkat Sloan WBC 7.7 103/ul Normal 4.0-11.0 [facility] Comment on above: Performed By: #### R F #### [facility] [address] [place] [address] Dr. Venkat Sloan PREG QUANT HCGon 07-08-2022 HCG QUANT <1 Normal [facility] Comment on above: Performed By: #### P REGQNT #### [facility] [address] [place] [address] Dr. Venkat Sloan HCG RANGE SEE BELOW Normal [facility] Comment on above: Result Comment: 5-50 0.2-1 WEEK 50-500 1-2 WEEKS 100-5,000 2-3 WEEKS 500-10,000 3-4 WEEKS 1,000-50,000 4-5 WEEKS 10,000-100,000 5-6 WEEKS 15,000-200,000 6-8 WEEKS 10,000-100,000 2-3 MONTHS Performed By: #### P REGQNT #### [facility] [address] [place] [address] Dr. Venkat Sloan PROGESTERONEon 06-23-2022 Progesterone 5.7 ng/mL Normal [facility] Comment on above: Result Comment: Foll icular phase 0.1 - 0.9 Luteal phase 1.8 - 23.9 Ovulation phase 0.1 - 12.0 First trimester 11.0 - 44.3 Second trimester 25.4 - 83.3 Third trimester 58.7 - 214.0 Postmenopausal 0.0 - 0.1 Performed By: #### T SH #### [facility] [address] [place] [address] Dr. Venkat Sloan PREG QUANT HCGon 05-31-2022 HCG QUANT 1 mIU/mL Normal [facility] Comment on above: Performed By: #### P REGQNT #### [facility] [address] [place] [address] Dr. Venkat Sloan HCG RANGE SEE BELOW Normal [facility] Comment on above: Result Comment: 5-50 0.2-1 WEEK 50-500 1-2 WEEKS 100-5,000 2-3 WEEKS 500-10,000 3-4 WEEKS 1,000-50,000 4-5 WEEKS 10,000-100,000 5-6 WEEKS 15,000-200,000 6-8 WEEKS 10,000-100,000 2-3 MONTHS Performed By: #### P REGQNT #### [facility] [address] [place] [address] Dr. Venkat Sloan PROGESTERONEon 05-21-2022 Progesterone 12.4 ng/mL Normal [facility] Comment on above: Result Comment: Foll icular phase 0.1 - 0.9 Luteal phase 1.8 - 23.9 Ovulation phase 0.1 - 12.0 First trimester 11.0 - 44.3 Second trimester 25.4 - 83.3 Third trimester 58.7 - 214.0 Postmenopausal 0.0 - 0.1 Performed By: #### I NFLUAB #### [facility] [address] [place] [address] Dr. Venkat Sloan MRI BRAIN WO W [...] Date: 2022-05-04 08:42 Normal [facility] PREG QUANT HCGon 05-04-2022 HCG QUANT <1 Normal [facility] Comment on above: Performed By: #### R F #### [facility] [address] [address] [address] Venkat Sloan HCG RANGE SEE BELOW Normal [facility] Comment on above: Result Comment: 5-50 0.2-1 WEEK 50-500 1-2 WEEKS 100-5,000 2-3 WEEKS 500-10,000 3-4 WEEKS 1,000-50,000 4-5 WEEKS 10,000-100,000 5-6 WEEKS 15,000-200,000 6-8 WEEKS 10,000-100,000 2-3 MONTHS Performed By: #### R F #### [facility] [address] [address] [address] Venkat Sloan XR HYSTEROSALPINGOGRAMon XR HYSTEROSALPINGOGRAM [...] by: LAM VELA Date: 2022-05-04 16:09 Normal [facility] PROGESTERONEon 04-24-2022 Progesterone 0.4 ng/mL Normal [facility] Comment on above: Result Comment: Foll icular phase 0.1 - 0.9 Luteal phase 1.8 - 23.9 Ovulation phase 0.1 - 12.0 First trimester 11.0 - 44.3 Second trimester 25.4 - 83.3 Third trimester 58.7 - 214.0 Postmenopausal 0.0 - 0.1 Performed By: #### I NFLUAB #### [facility] [address] [place] [address] Dr. Venkat Sloan CULTURE SPUTUMon 04-02-2022 CULTURE SPUTUM Culture Observations : NORMAL RESPIRATORY NATALEE. Normal [facility] Comment on above: Performed By: #### R F #### [facility] [address] [address] [address] Venkat Sloan SPUTUM GRAM STAINon 04-02-19 23 COMMENTS Normal [facility] Comment on above: Performed By: #### R F #### [facility] [address] [place] [address] Dr. Venkat Sloan DIPHTHEROIDS Normal [facility] Comment on above: Performed By: #### R F #### [facility] [address] [address] [address] Venkat Sloan EPITHELIALS <25 Normal [facility] Comment on above: Performed By: #### R F #### [facility] [address] [address] [address] Venkat Sloan FUNGAL ELEMENTS Normal [facility] Comment on above: Performed By: #### R F #### [facility] [address] [address] [address] Venkat Sloan GRAM NEG BACILLI RARE Normal [facility] Comment on above: Performed By: #### R F #### [facility] [address] [place] [address] Dr. Venkat Sloan GRAM NEG DIPPLOCOCCI Normal [facility] Comment on above: Performed By: #### R F #### [facility] [address] [place] [address] Dr. Venkat Sloan GRAM POS BACILLI Normal [facility] Comment on above: Performed By: #### R F #### [facility] [address] [place] [address] Dr. Venkat Sloan GRAM POSITIVE COCCI RARE Normal [facility] Comment on above: Performed By: #### R F #### [facility] [address] [place] [address] Dr. Venkat Sloan WBC (Bld) [#/Vol] 10*3/uL Normal [facility] Comment on above: Performed By: #### R F #### [facility] [address] [place] [address] Dr. Venkat Sloan Covid-19 PCR ([facility])on SARS-CoV-2 (COVID-19) RNA SHIRIN+probe Ql (Unsp spec) Not detected Normal NOT DETECTED [facility] Comment on above: Result Comment: This test is not yet approved or cleared by the [place] FDA. When there are no FDA-approved or cleared tests available, and other criteria are met, FDA can make tests available under an emergency access mechanism called an Emergency Use Authorization (EUA). The EUA for this test is supported by the [place] of Health and Human Service's (HHS's) declaration [...] By: #### P REGQNT #### [facility] [address] [place] [address] Dr. Venkat Sloan INFLUENZA A AND B AGon 04-01 [facility] SEE BELOW Normal [facility] Comment on above: Result Comment: Nega tive for Flu A protein angiten. Infection due to Flu A cannot be ruled out. Flu A angiten in the sample may be below the detection limit of the test. Performed By: #### I NFLUAB #### [facility] [address] [place] [address] Dr. Venkat Sloan [facility] SEE BELOW Normal [facility] Comment on above: Result Comment: Nega tive for Flu B protein antigen. Infection due to Flu B cannot be ruled out. Flu B antigen in the sample may be below the detection limit of the test. Performed By: #### I NFLUAB #### [facility] [address] [place] [address] Dr. Venkat Sloan INFLUENZA A AG Negative Normal NEGATIVE SEE COMMENT [facility] Comment on above: Performed By: #### I NFLUAB #### [facility] [address] [place] [address] Dr. Venkat Sloan INFLUENZA B AG Negative Normal NEGATIVE SEE COMMENT [facility] Comment on above: Performed By: #### I NFLUAB #### [facility] [address] [place] [address] Dr. Venkat Sloan XR CHEST 2 Von [...] Date: 2022-03-24 12:33 Normal [facility] Covid-19 PCR ([facility])on 02-25 SARS-CoV-2 (COVID-19) RNA SHIRIN+probe Ql (Unsp spec) Not detected Normal NOT DETECTED [facility] Comment on above: Result Comment: When [...] for this test is supported by the [place]ingo Manager of Health and Human Service's declaration [...] By: #### R F #### [facility] [address] [place] [address] Dr. Venkat Sloan INFLUENZA A AND B [facility] 03-15 [facility] SEE BELOW Normal [facility] Comment on above: Result Comment: Nega tive for Flu A protein angiten. Infection due to Flu A cannot be ruled out. Flu A angiten in the sample may be below the detection limit of the test. Performed By: #### I NFLUAB #### [facility] [address] [place] [address] Dr. Venkat Sloan [facility] SEE BELOW Normal [facility] Comment on above: Result Comment: Nega tive for Flu B protein antigen. Infection due to Flu B cannot be ruled out. Flu B antigen in the sample may be below the detection limit of the test. Performed By: #### I NFLUAB #### [facility] [address] [place] [address] Dr. Venkat Sloan INFLUENZA A AG Negative Normal NEGATIVE SEE COMMENT [facility] Comment on above: Performed By: #### I NFLUAB #### [facility] [address] [place] [address] Dr. Venkat Sloan INFLUENZA B AG Negative Normal NEGATIVE SEE COMMENT [facility] Comment on above: Performed By: #### I NFLUAB #### [facility] [address] [place] [address] Dr. Venkat Sloan INTERNAL CONTROLS Within Normal Limits Normal Wi thin Normal Limits [facility] Comment on above: Performed By: #### I NFLUAB #### [facility] [address] [address] [address] Venkat Sloan Covid-19 PCR ([facility])on 02-25 SARS-CoV-2 (COVID-19) RNA SHIRIN+probe Ql (Unsp spec) Not detected Normal NOT DETECTED [facility] Comment on above: Result Comment: When [...] for this test is supported by the Bingo Manager of Health and Human Service's declaration [...] By: #### I NFLUAB #### [facility] [address] [id number] [address] Venkat Sloan INFLUENZA A AND B AGon 03-12 [facility] SEE BELOW Normal [facility] Comment on above: Result Comment: Nega tive for Flu A protein angiten. Infection due to Flu A cannot be ruled out. Flu A angiten in the sample may be below the detection limit of the test. Performed By: #### I NFLUAB #### [facility] [address] [id number] Ven[facility] SEE BELOW Normal [facility] Comment on above: Result Comment: Nega tive for Flu B protein antigen. Infection due to Flu B cannot be ruled out. Flu B antigen in the sample may be below the detection limit of the test. Performed By: #### I NFLUAB #### [facility] [address] [address] [address] Venkat Sloan INFLUENZA A AG Negative Normal NEGATIVE SEE COMMENT [facility] Comment on above: Performed By: #### I NFLUAB #### [facility] [address] [place] [address] Dr. Venkat Sloan INFLUENZA B AG Negative Normal NEGATIVE SEE COMMENT [facility] Comment on above: Performed By: #### I NFLUAB #### [facility] [address] [place] [address] Dr. Venkat Sloan INTERNAL CONTROLS Within Normal Limits Normal Wi thin Normal Limits [facility] Comment on above: Performed By: #### I NFLUAB #### [facility] [address] [place] [address] Dr. Venkat Sloan PROGESTERONEon 02-20-2022 Progesterone 0.3 ng/mL Normal [facility] Comment on above: Result Comment: Foll icular phase 0.1 - 0.9 Luteal phase 1.8 - 23.9 Ovulation phase 0.1 - 12.0 First trimester 11.0 - 44.3 Second trimester 25.4 - 83.3 Third trimester 58.7 - 214.0 Postmenopausal 0.0 - 0.1 Performed By: #### R F #### [facility] [address] [place] [address] Dr. Venkat Sloan ACTH STIMULATIONon 2 Andros Baseline 49 ng/dL Normal 41-262 [facility] Comment on above: Performed By: #### R F #### [facility] [address] [place] [address] Dr. Venkat Sloan Andros Stimulated 82 ng/dL Normal Not Estab. [facility] Comment on above: Performed By: #### R F #### [facility] [address] [place], [place] [id number] Dr. Venkat Sloan [facility]on 01-26 SARS-CoV-2 (COVID-19) RNA SHIRIN+probe Ql (Unsp spec) Not detected Normal NOT DETECTED [facility] Comment on above: Result Comment: This test is not yet approved or cleared by the [place] FDA. When there are no FDA-approved or cleared tests available, and other criteria are met, FDA can make tests available under an emergency access mechanism called an Emergency Use Authorization (EUA). The EUA for this test is supported by the [place] of Health and Human Service's (HHS's) declaration [...] By: #### I NFLUAB #### [facility] [address] [place] [address] Dr. Venkat Sloan INFLUENZA A AND B [facility] 02-10 [facility] SEE BELOW Normal [facility] Comment on above: Result Comment: Nega tive for Flu A protein angiten. Infection due to Flu A cannot be ruled out. Flu A angiten in the sample may be below the detection limit of the test. Performed By: #### P REGQNT #### [facility] [address] [place] [address] Dr. Venkat Sloan [facility] Normal [facility] Comment on above: Result Comment: Nega tive for Flu B protein antigen. Infection due to Flu B cannot be ruled out. Flu B antigen in the sample may be below the detection limit of the test. Performed By: #### P REGQNT #### [facility] [address] [place] [address] Dr. Venkat Sloan INFLUENZA A AG Negative Normal NEGATIVE SEE COMMENT [facility] Comment on above: Performed By: #### P REGQNT #### [facility] [address] [place] [address] Dr. Venkat Sloan INFLUENZA B AG Negative Normal NEGATIVE SEE COMMENT [facility] Comment on above: Performed By: #### P REGQNT #### [facility] [address] [address] [address] Venkat Sloan INTERNAL CONTROLS Within Normal Limits Normal Wi thin Normal Limits [facility] Comment on above: Performed By: #### P REGQNT #### [facility] [address] [address] [address] Venkat Sloan DHEA SERUMon 01-19-2022 Dehydroepiandrosterone (DHEA) 82 ng/dL Normal 31-701 [facility] Comment on above: Result Comment: Age [...] By: #### T SH #### [facility] [address] [place] [address] Dr. Venkat Sloan DHEA-SULFATEon 01-14-2022 DHEA-Sulfate 34.0 ug/dL Critically low 84.8-378.0 [facility] Comment on above: Performed By: #### R F #### [facility] [address] [place] [address] Dr. Venkat Sloan FSHon 01-14-2022 FSH 2.2 mIU/mL Normal [facility] Comment on above: Result Comment: Adul t Female: Follicular phase 3.5 - 12.5 Ovulation phase 4.7 - 21.5 Luteal phase 1.7 - 7.7 Postmenopausal 25.8 - 134.8 Performed By: #### [facility] #### [facility] [address] [address] [address] Venkat Sloan LUTEINIZING HORMONE (LH)on 1 LH 5.1 mIU/mL Normal [facility] Comment on above: Result Comment: Adul t Female: Follicular phase 2.4 - 12.6 Ovulation phase 14.0 - 95.6 Luteal phase 1.0 - 11.4 Postmenopausal 7.7 - 58.5 Performed By: #### I NFLUAB #### [facility] [address] [address] [address] Venkat Sloan PROLACTINon 01-14-2022 Prolactin 8.0 ng/mL Normal 4.8-23.3 [facility] Comment on above: Performed By: #### P ROLAC #### [facility] [address] [place] [address] Dr. Venkat Sloan CBC AUTO DIFFon 01-13-2022 BASO # 0.0 103/ul Normal 0.0-0.1 [facility] Comment on above: Performed By: #### T SH #### [facility] [address] [place] [address] Dr. Venkat Sloan Basophils/100 WBC (Bld) 0.4 % Normal 0.2-2.0 [facility] Comment on above: Performed By: #### T SH #### [facility] [address] [place] [address] Dr. Venkat Sloan EO # 0.1 103/ul Normal 0.0-0.7 [facility] Comment on above: Performed By: #### T SH #### [facility] [address] [place] [address] Dr. Veknat Sloan Eosinophils/100 WBC (Bld) 1.2 % Normal 0.9-7.0 [facility] Comment on above: Performed By: #### T SH #### [facility] [facility] [address] [place] [address] Dr. Venkat Sloan Erythrocyte distribution width (RBC) [Ratio] 12.7 % Normal 11.0-15.0 [facility] Comment on above: Performed By: #### T SH #### [facility] [address] [place] [address] Dr. Venkat Sloan Hematocrit (Bld) [Volume fraction] 41.1 % Normal 36.0-48.0 [facility] Comment on above: Performed By: #### T SH #### [facility] [address] [place] [address] Dr. Venkat Sloan Hemoglobin (Bld) [Mass/Vol] 13.1 g/dL Normal 12.0-16.0 [facility] Comment on above: Performed By: #### T SH #### [facility] [address] [place] [address] Dr. Venkat Sloan IG # 0.03 10e3/ul Normal 0.00-0.03 [facility] Comment on above: Performed By: #### T SH #### [facility] [address] [place] [address] Dr. Venkat Sloan IG % 0.3 % Normal 0.0-0.5 [facility] Comment on above: Performed By: #### T SH #### [facility] [address] [place] [address] Dr. Venkat Sloan LYMPH # 1.6 103/ul Normal 1.2-3.8 [facility] Comment on above: Performed By: #### T SH #### [facility] [address] [place] [address] Dr. Venkat Sloan Lymphocytes/100 WBC (Bld) 15.0 % Critically low 20.5-60.0 [facility] Comment on above: Performed By: #### T SH #### [facility] [address] [place] [address] Dr. Venkat Sloan MANUAL DIFF REQ NO Normal [facility] Comment on above: Performed By: #### T SH #### [facility] [address] [place] [address] Dr. Venkat Sloan MCH (RBC) [Entitic mass] 28.5 pg Normal 26.7-34.0 [facility] Comment on above: Performed By: #### T SH #### [facility] [address] [place] [address] Dr. Venkat Sloan MCHC (RBC) [Mass/Vol] 31.9 g/dL Normal 29.9-35.2 [facility] Comment on above: Performed By: #### T SH #### [facility] [address] [place] [address] Dr. Venkat Sloan MCV (RBC) [Entitic vol] 89.3 fL Normal 81.0-99.0 [facility] Comment on above: Performed By: #### T SH #### [facility] [address] [place] [address] Dr. Venkat Sloan MONO # 0.9 103/ul Critically high 0.3-0.8 [facility] Comment on above: Performed By: #### T SH #### [facility] [address] [place] [address] Dr. Venkat Sloan Monocytes/100 WBC (Bld) 8.8 % Normal 1.7-12.0 [facility] Comment on above: Performed By: #### T SH #### [facility] [address] [place] [address] Dr. Venkat Sloan NEUT # 7.9 103/ul Critically high 1.4-6.5 [facility] Comment on above: Performed By: #### T SH #### [facility] [address] [place] [address] Dr. Venkat Sloan Neutrophils/100 WBC (Bld) 74.3 % Normal 43.0-75.0 [facility] Comment on above: Performed By: #### T SH #### [facility] [address] [place] [address] Dr. Venkat Sloan Platelet mean volume (Bld) [Entitic vol] 9.2 fL Critically low 9.5-13.5 [facility] Comment on above: Performed By: #### T SH #### [facility] [address] [place] [address] Dr. Venkat Sloan PLT 300 103/ul Normal 150-450 [facility] Comment on above: Performed By: #### T SH #### [facility] [address] [place] [address] Dr. Venkat Sloan RBC 4.60 106/ul Normal 4.20-5.40 [facility] Comment on above: Performed By: #### T SH #### [facility] [address] [place] [address] Dr. Venkat Sloan WBC 10.7 103/ul Normal 4.0-11.0 [facility] Comment on above: Performed By: #### T SH #### [facility] [address] [place] [address] Dr. Venkat Sloan GLYCOHEMOGLOBIN A1Con 2021 ADA RECOMMENDATION SEE BELOW Normal [facility] Comment on above: Result Comment: ADA RECOMMENDED LIMIT 4.0 - 6.0 ADA THERAPEUTIC TARGET < 7.0 ACTION SUGGESTED > 7.0 Performed By: #### P REGQNT #### [facility] [address] [place] [address] Dr. Venkat Sloan Glucose [Mass/Vol] 100 mg/dL Normal [facility] Comment on above: Performed By: #### P REGQNT #### [facility] [address] [place] [address] Dr. Venkat Sloan HbA1c (Bld) [Mass fraction] 5.1 % Normal 4.5-6.2 [facility] Comment on above: Performed By: #### P REGQNT #### [facility] [address] [place] [address] Dr. Venkat Sloan TSHon 01-13-2022 TSH 1.098 uIU/mL Normal 0.358-3.740 [facility] Comment on above: Performed By: #### T SH #### [facility] [address] [place] [address] Dr. Venkat Sloan Covid-19 PCR ([facility])on 12-26 SARS-CoV-2 (COVID-19) RNA SHIRIN+probe Ql (Unsp spec) Not detected Normal NOT DETECTED [facility] Comment on above: Result Comment: This test is not yet approved or cleared by the [place] FDA. When there are no FDA-approved or cleared tests available, and other criteria are met, FDA can make tests available under an emergency access mechanism called an Emergency Use Authorization (EUA). The EUA for this test is supported by the [employer] of Health and Human Service's (HHS's) [...] By: #### I NFLUAB #### [facility] [address] [place] [address] Dr. Venkat Sloan PREG QUANT HCGon 12-24-2021 HCG QUANT <1 Normal [facility] Comment on above: Performed By: #### P REGQNT #### [facility] [address] [place] [address] Dr. Venkat Sloan HCG RANGE SEE BELOW Normal [facility] Comment on above: Result Comment: 5-50 0.2-1 WEEK 50-500 1-2 WEEKS 100-5,000 2-3 WEEKS 500-10,000 3-4 WEEKS 1,000-50,000 4-5 WEEKS 10,000-100,000 5-6 WEEKS 15,000-200,000 6-8 WEEKS 10,000-100,000 2-3 MONTHS Performed By: #### P REGQNT #### [facility] [address] [place] [address] Dr. Venkat Sloan HCG-BETA SUBUNIT QUANTon hCG,Beta Subunit,Qnt,Serum <1 Normal [facility] Comment on above: Result Comment: Fema le (Non-) 0 - 5 (Postmenopausal) 0 - 8 . Female () Weeks of Gestation 3 6 - 71 4 10 - 750 5 217 - 7138 6 158 - 46191 7 [phone] 8 [phone] -[phone] 9 [phone] -[phone] 10 [phone] -[phone] 12 17659 -[phone] 14 73959 - 87282 15 71326 - 69789 16 3544 - 15053 17 0205 - 74438 18 5818 - 53525 Aj ECLIA methodology Performed By: #### T SH #### [facility] [address] [place] [address] Dr. Venkat Sloan BRETT by IFAon 09-29-2021 Antinuclear Antibodies, IFA Negative Normal [facility] Comment on above: Result Comment: Nega tive <1:80 Borderline 1:80 Positive >1:80 ICAP nomenclature: AC-0 For more information about Hep-2 cell patterns use ANApatterns.org, the official website for the International Consensus on Antinuclear Antibody (BRETT) Patterns (ICAP). Performed By: #### A NAIFA #### [facility] [address] [place] [address] Dr. Venkat Sloan INSULINon 09-29-2021 Insulin 11.1 uIU/mL Normal 2.6-24.9 [facility] Comment on above: Performed By: #### T SH #### [facility] [address] [place] [address] Dr. Venkat Sloan ANTISTREPTOLYSIN O AB (ASO)o n 09-27-2021 Antistreptolysin O Ab <20.0 Normal 0.0-200.0 [facility] Comment on above: Performed By: #### P REGQNT #### [facility] [address] [place] [address] Dr. Venkat Sloan RHEUMATOID FACTORon 09-28-19 RA Latex Turbid. <10.0 Normal <14.0 [facility] Comment on above: Performed By: #### R F #### [facility] [address] [place] [address] Dr. Venkat Sloan CBC AUTO DIFFon 09-26-2021 BASO # 0.0 103/ul Normal 0.0-0.1 [facility] Comment on above: Performed By: #### T SH #### [facility] [address] [place] [address] Dr. Venkat Sloan Basophils/100 WBC (Bld) 0.3 % Normal 0.2-2.0 [facility] Comment on above: Performed By: #### T SH #### [facility] [address] [place] [address] Dr. Venkat Sloan EO # 0.1 103/ul Normal 0.0-0.7 [facility] Comment on above: Performed By: #### T SH #### [facility] [address] [place] [address] Dr. Venkat Sloan Eosinophils/100 WBC (Bld) 1.8 % Normal 0.9-7.0 [facility] Comment on above: Performed By: #### T SH #### [facility] [address] [place] [address] Dr. Venkat Sloan Erythrocyte distribution width (RBC) [Ratio] 12.9 % Normal 11.0-15.0 [facility] Comment on above: Performed By: #### T SH #### [facility] [address] [place] [address] Dr. Venkat Sloan Hematocrit (Bld) [Volume fraction] 39.8 % Normal 36.0-48.0 [facility] Comment on above: Performed By: #### T SH #### [facility] [address] [place] [address] Dr. Venkat Sloan Hemoglobin (Bld) [Mass/Vol] 12.7 g/dL Normal 12.0-16.0 [facility] Comment on above: Performed By: #### T SH #### [facility] [address] [place] [address] Dr. Venkat Sloan IG # 0.02 10e3/ul Normal 0.00-0.03 [facility] Comment on above: Performed By: #### T SH #### [facility] [address] [place] [address] Dr. Venkat Sloan IG % 0.3 % Normal 0.0-0.5 [facility] Comment on above: Performed By: #### T SH #### [facility] [address] [place] [address] Dr. Venkat Sloan LYMPH # 1.5 103/ul Normal 1.2-3.8 [facility] Comment on above: Performed By: #### T SH #### [facility] [address] [place] [address] Dr. Venkat Sloan Lymphocytes/100 WBC (Bld) 21.5 % Normal 20.5-60.0 [facility] Comment on above: Performed By: #### T SH #### [facility] [address] [place] [address] Dr. Venkat Sloan MANUAL DIFF REQ NO Normal [facility] Comment on above: Performed By: #### T SH #### [facility] [address] [address] [address] Venkat Sloan MCH (RBC) [Entitic mass] 28.5 pg Normal 26.7-34.0 [facility] Comment on above: Performed By: #### T SH #### [facility] [address] [place] [address] Dr. Venkat Sloan MCHC (RBC) [Mass/Vol] 31.9 g/dL Normal 29.9-35.2 [facility] Comment on above: Performed By: #### T SH #### [facility] [address] [place] [address] Dr. Venkat Sloan MCV (RBC) [Entitic vol] 89.2 fL Normal 81.0-99.0 [facility] Comment on above: Performed By: #### T SH #### [facility] [address] [place] [address] Dr. Venkat Sloan MONO # 0.5 103/ul Normal 0.3-0.8 [facility] Comment on above: Performed By: #### T SH #### [facility] [address] [place] [address] Dr. Venkat Sloan Monocytes/100 WBC (Bld) 7.6 % Normal 1.7-12.0 [facility] Comment on above: Performed By: #### T SH #### [facility] [address] [place] [address] Dr. Venkat Sloan NEUT # 4.9 103/ul Normal 1.4-6.5 [facility] Comment on above: Performed By: #### T SH #### [facility] [address] [place] [address] Dr. Venkat Sloan Neutrophils/100 WBC (Bld) 68.5 % Normal 43.0-75.0 [facility] Comment on above: Performed By: #### T SH #### [facility] [address] [place] [address] Dr. Venkat Sloan Platelet mean volume (Bld) [Entitic vol] 8.8 fL Critically low 9.5-13.5 [facility] Comment on above: Performed By: #### T SH #### [facility] [address] [place] [address] Dr. Venkat Sloan PLT 297 103/ul Normal 150-450 [facility] Comment on above: Performed By: #### T SH #### [facility] [address] [place] [address] Dr. Venkat Sloan RBC 4.46 106/ul Normal 4.20-5.40 [facility] Comment on above: Performed By: #### T SH #### [facility] [address] [address] [address] Venkat Sloan WBC 7.1 103/ul Normal 4.0-11.0 [facility] Comment on above: Performed By: #### T SH #### [facility] [address] [place] [address] Dr. Venkat Sloan CRPon 09-26-2021 CRP [Mass/Vol] mg/L Normal <=1.0 [facility] Comment on above: Performed By: #### P REGQNT #### [facility] [address] [place] [address] Dr. Venkat Sloan FREE THYROXINE INDEX T7on FTI 2.71 Normal 1.30-4.50 [facility] Comment on above: Performed By: #### P REGQNT #### [facility] [address] [place] [address] Dr. Venkat Sloan T3U 33.0 % Normal 30.0-39.0 [facility] Comment on above: Performed By: #### P REGQNT #### [facility] [address] [place] [address] Dr. Venkat Sloan T4 [Mass/Vol] 8.20 ug/dL Normal 4.80-13.90 [facility] Comment on above: Performed By: #### P REGQNT #### [facility] [address] [place] [address] Dr. Venkat Sloan GLYCOHEMOGLOBIN A1Con 2021 ADA RECOMMENDATION SEE BELOW Normal [facility] Comment on above: Result Comment: ADA RECOMMENDED LIMIT 4.0 - 6.0 ADA THERAPEUTIC TARGET < 7.0 ACTION SUGGESTED > 7.0 Performed By: #### I NFLUAB #### [facility] [address] [address] [address] Venkat Sloan Glucose [Mass/Vol] 105 mg/dL Normal [facility] Comment on above: Performed By: #### I NFLUAB #### [facility] [address] [address] [address] Venkat Sloan HbA1c (Bld) [Mass fraction] 5.3 % Normal 4.5-6.2 [facility] Comment on above: Performed By: #### I NFLUAB #### [facility] [address] [address] [address] Venkat Sloan IRONon 09-26-2021 Iron [Mass/Vol] 49.0 ug/dL Critically low 50.0-170.0 [facility] Comment on above: Performed By: #### P REGQNT #### [facility] [address] [place] [address] Dr. Venkat Sloan LIPID PROFILEon 09-26-2021 CHOL-HDL RATIO NORM SEE BELOW Normal [facility] Comment on above: Result Comment: 3.3 - 4.4 LOW RISK 4.4 - 7.1 AVERAGE RISK 7.1 - 11.0 MODERATE RISK >11.0 HIGH RISK Performed By: #### P REGQNT #### [facility] [address] [address] [address] Venkat Sloan Cholesterol [Mass/Vol] 197 mg/dL Normal <=200 [facility] Comment on above: Performed By: #### P REGQNT #### [facility] [address] [place] [address] Dr. Venkat Sloan Cholesterol in HDL [Mass/Vol] 64 mg/dL Critically high 40-60 [facility] Comment on above: Performed By: #### P REGQNT #### [facility] [address] [address] [address] Venkat Sloan Cholesterol in LDL [Mass/Vol] 123.4 mg/dL Normal [facility] Comment on above: Performed By: #### P REGQNT #### [facility] [address] [address] [address] Venkat Sloan Cholesterol.total/Choles terol in HDL [Mass ratio] 3.1 {ratio} Normal [facility] Comment on above: Performed By: #### P REGQNT #### [facility] [address] [address] [address] Venkat Sloan HDL NORMAL > or = 60 mg/dl - LO W CARDIOVASCULAR RISK <40 mg/dl - HIGH CARDIOVASCULAR RISK Normal [facility] Comment on above: Performed By: #### P REGQNT #### [facility] [address] [place] [address] Dr. Venkat Sloan LDL CALC NORMAL SEE BELOW Normal [facility] Comment on above: Result Comment: <100 mg/dl OPTIMAL 100 - 129 mg/dl NEAR OR ABOVE OPTIMAL 130 - 159 mg/dl BORDERLINE HIGH 160 - 189 mg/dl HIGH >190 mg/dl VERY HIGH Performed By: #### P REGQNT #### [facility] [address] [address] [address] Venkat Sloan Triglyceride [Mass/Vol] 48 mg/dL Normal <=[address] [facility] Comment on above: Performed By: #### P REGQNT #### [facility] [address] [place] [address] Dr. Venkat Sloan VLDL CALC 9.6 mg/dL Normal [facility] Comment on above: Performed By: #### P REGQNT #### [facility] [address] [place] [address] Dr. Venkat Sloan PROF 14(COMP METB)on 022 Albumin [Mass/Vol] 4.0 g/dL Normal 3.4-5.0 [facility] Comment on above: Performed By: #### I NFLUAB #### [facility] [address] [place] [address] Dr. Venkta Sloan Albumin/Globulin [Mass ratio] 1.3 {ratio} Normal [facility] Comment on above: Performed By: #### I NFLUAB #### [facility] [address] [place] [address] Dr. Venkat Sloan ALP [Catalytic activity/Vol] 58 U/L Normal 46-116 [facility] Comment on above: Performed By: #### I NFLUAB #### [facility] [address] [place] [address] Dr. Venkat Sloan ALT [Catalytic activity/Vol] 20 U/L Normal 14-59 [facility] Comment on above: Performed By: #### I NFLUAB #### [facility] [address] [place] [address] Dr. Venkat Sloan Anion gap [Moles/Vol] 10.4 mmol/L Normal [facility] Comment on above: Performed By: #### I NFLUAB #### [facility] [address] [place] [address] Dr. Venkat Sloan AST [Catalytic activity/Vol] 11 U/L Critically low 15-37 [facility] Comment on above: Performed By: #### I NFLUAB #### [facility] [address] [place] [address] Dr. Venkat Sloan Bilirubin [Mass/Vol] 0.8 mg/dL Normal 0.2-1.0 [facility] Comment on above: Performed By: #### I NFLUAB #### [facility] [address] [place] [address] Dr. Venkat Sloan Calcium [Mass/Vol] 9.0 mg/dL Normal 8.5-10.1 [facility] Comment on above: Performed By: #### I NFLUAB #### [facility] [address] [place] [address] Dr. Venkat Sloan Chloride [Moles/Vol] 106 mmol/L Normal 98-107 [facility] Comment on above: Performed By: #### I NFLUAB #### [facility] [address] [place] [address] Dr. Venkat Sloan CO2 [Moles/Vol] 27.0 mmol/L Normal 21.0-32.0 [facility] Comment on above: Performed By: #### I NFLUAB #### [facility] [address] [place] [address] Dr. Venkat Sloan Creatinine [Mass/Vol] 0.70 mg/dL Normal 0.55-1.02 [facility] Comment on above: Performed By: #### I NFLUAB #### [facility] [address] [place] [address] Dr. Venkat Sloan EGFR-AF TAIWANESE >60 Normal >=60 [facility] Comment on above: Performed By: #### I NFLUAB #### [facility] [address] [address] [address] Venkat Sloan EGFR-NON AF TAIWANESE >60 Normal >=60 [facility] Comment on above: Performed By: #### I NFLUAB #### [facility] [address] [place] [address] Dr. Venkat Sloan Globulin (S) [Mass/Vol] 3.2 g/dL Normal [facility] Comment on above: Performed By: #### I NFLUAB #### [facility] [address] [place] [address] Dr. Venkat Sloan Glucose [Mass/Vol] 92 mg/dL Normal 74-106 [facility] Comment on above: Performed By: #### I NFLUAB #### [facility] [address] [place] [address] Dr. Venkat Sloan Potassium [Moles/Vol] 4.4 mmol/L Normal 3.5-5.1 [facility] Comment on above: Performed By: #### I NFLUAB #### [facility] [address] [place] [address] Dr. Venkat Sloan Protein [Mass/Vol] 7.2 g/dL Normal 6.4-8.2 [facility] Comment on above: Performed By: #### I NFLUAB #### [facility] [address] [place] [address] Dr. Venkat Sloan Sodium [Moles/Vol] 139 mmol/L Normal 136-145 [facility] Comment on above: Performed By: #### I NFLUAB #### [facility] [address] [place] [address] Dr. Venkat Sloan Urea nitrogen [Mass/Vol] 13.0 mg/dL Normal 7.0-18.0 [facility] Comment on above: Performed By: #### I NFLUAB #### [facility] [address] [place] [address] Dr. Venkat Sloan Urea nitrogen/Creatinine [Mass ratio] 18.6 mg/mg Normal [facility] Comment on above: Performed By: #### I NFLUAB #### [facility] [address] [place] [address] Dr. Venkat Sloan TSHon 09-26-2021 TSH 1.318 uIU/mL Normal 0.358-3.740 [facility] Comment on above: Performed By: #### P REGQNT #### [facility] [address] [place] [address] Dr. Venkat Sloan URIC ACID SERUMon 09-26-2021 Urate [Mass/Vol] 3.9 mg/dL Normal 2.6-6.0 [facility] Comment on above: Performed By: #### P REGQNT #### [facility] [address] [place] [address] Dr. Venkat Sloan XR CSPINE MIN 4 [...] DUDLEY HERNÁNDEZ Date: 2021-09-24 21:16 Normal [facility] PREG QUANT HCGon 08-17-2021 HCG QUANT <1 Normal [facility] Comment on above: Performed By: #### I NFLUAB #### [facility] [address] [place] [address] Dr. Venkat Sloan HCG RANGE SEE BELOW Normal [facility] Comment on above: Result Comment: 5-50 0-1 WEEK 40-300 1-2 WEEKS 100-1,000 2-3 WEEKS 500-6,000 3-4 WEEKS 5,000-200,000 1-2 MONTHS 10,000-100,000 2-3 MONTHS 3,000-50,000 2ND TRIMESTER 1,000-50,000 3RD TRIMESTER Performed By: #### I NFLUAB #### [facility] [address] [place] [address] Dr. Venkat Sloan US PELVIS AND TRANSVAGon [...] Date: 2021-08-17 07:01 Normal [facility] COVID Quick Testingon 2020 Result Negative [employer] Other Vital Signs Date Time Vital Sign Value Performing Clinician Facility 05-22-2023 09:050 Body height 154.94 cm [facility] 05-22-2023 09:0500 Body mass index (BMI) [Ratio] 30.8 kg/m2 [facility] 05-22-2023 09:050 Body temperature 98.1 [degF] [facility] 05-22-2023 09:0500 Body weight 74.04 kg [facility] 05-22-2023 09:0500 Heart rate 78 /min [facility] 05-22-2023 09:27-0500 Respiratory rate 16 /min [facility] 05-22-2023 09:27-0500 SaO2% (BldA) [Mass fraction] 98 % [facility] 05-10-2023 15:14-0500 Body mass index (BMI) [Ratio] 30.04 kg/m2 Ricardo Jennifer DO Work Phone: [facility] 05-10-2023 15:14-0500 Body weight 72.12 kg Ricardo Jennifer DO Work Phone: [facility] 05-10-2023 15:14-0500 Diastolic blood pressure 70 mm[Hg] Ricardo Jennifer DO Work Phone: [facility] 05-10-2023 15:14-0500 Systolic blood pressure 110 mm[Hg] Ricardo Jennifer DO Work Phone: [facility] 01-27-2021 18:45-0400 Body height 154.94 cm Mohini Juan Other [facility] Other 01-27-2021 18:45-0400 Body mass index (BMI) [Ratio] 28.34 kg/m2 Mohini Juan Other [facility] Other 01-27-2021 18:45-0400 Body temperature 96.4 [degF] Mohini Juan Other [facility] Other 01-27-2021 18:45-0400 Body weight 68.04 kg Mohini Juan Other [facility] Other 01-27-2021 18:45-0400 Respiratory rate 18 /min Mohini Juan Other [facility] Other 01-27-2021 18:45-0400 SaO2% (BldA) [Mass fraction] 99 % Mohini Martinez Other [facility] Other 12-22-2020 11:45-0400 Body height 154.94 cm Dudley Freeman Other [facility] Other 12-22-2020 11:45-0400 Body mass index (BMI) [Ratio] 28.34 kg/m2 Dudley Freeman Other [facility] Other 12-22-2020 11:45-0400 Body weight 68.04 kg Dudley Freeman Other [facility] Other Encounters Encounter Date Encounter Type Care Provider Facility Start: 05-26-2023 End: 05-26-2023 ambulatory RICARDO JENNIFER Not Available Start: 05-22-2023 End: 05-22-2023 ambulatory [facility] Work Phone: Start: 05-22-2023 End: 05-22-2023 Patient encounter procedure [facility] Work Phone: Start: 05-10-2023 End: 05-10-2023 ambulatory RICARDO JENNIFER Not Available Start: 05-10-2023 End: 05-10-2023 flow sheet Ricardo Jennifer DO Work Phone: [facility] Comment on above: Second trimester pre gnancy; Diabetes mellitus screening Start: 04-12-2023 End: 04-12-2023 ambulatory RICARDO JENNIFER Not Available Start: 03-15-2023 End: 03-15-2023 ambulatory RICARDO JENNIFER Not Available Start: 02-10-2023 End: 02-10-2023 ambulatory RICARDO JENNIFER Not Available Start: 07-09-2022 Encounter for other preprocedural examination DR RICARDO RODRIGUEZ . [facility] Start: 07-08-2022 End: 07-08-[address] RICARDO RODRIGUEZ . Facility: Start: 06-30-2022 End: 07-01-[address] RICARDO [...] . Facility:[facility] Start: 02-01-[address] RICARDO RODRIUGEZ . Facili ty:[facility] Start: 01-13-2022 End: 01-14-[address] RICARDO RODRIGUEZ . Facility:[facility] Start: 01-12-2022 End: 01-12-[address] IRON GARCIA . Facility:[facility] Start: 12-24-2021 End: 12-25-[address] IRON GARCIA . Facility:[facility] Start: 11-21-2021 End: 11-22-[address] RICARDO RODRIGUEZ . Facility:[facility] Start: 10-02-2021 Encounter for genera l adult medical examination without abnormal findings DR IRON GARCIA . [facility] Start: 09-26-2021 End: 09-27-[address] [...] 01-27-2021 End: 01-27-2021 ambulatory Mohini Martinez Other [facility] Other Start: 01-27-2021 Office outpatient vi sit [...] AM EST Routine [facility] [address] [place] [address] Ricardo Rodriguez DO [address] [place] [address] [facility] Start: 05-10-2023 End: 05-10-2024 CBC panel - Blood by Automated count CBC Lab Routine Diabetes mellitus screening Expected: 05/10/2023 (Approximate), Expires: 05/10/2024 [facility] Work Phone: Comment on above: Expected: 05/10/2023 (Approximate), Expires: 05/10/2024 Start: 05-10-2023 End: 05-10-2024 Measurement of glucose 1 hour after glucose challenge for glucose tolerance test Glucose tolerance, 1 hour Lab Routine Diabetes mellitus screening Expected: 05/10/2023 (Approximate), Expires: 05/10/2024 [facility] Comment on above: Expected: 05/10/2023 (Approximate), Expires: 05/10/2024 Start: 11-26-2022 Influenza vaccination Influenz a Vaccine (#1) [facility] Immunizations Immunization Date Immunization Notes Care Provider Fa tammy 01-25-2022 influenza virus vacc ine, unspecified formulation Ricardooumou Rodriguez DO Work Phone: [facility] Payers Date Payer Category Payer Unknown BCBS BCBS xxxxxx [id number] 2022-Present [phone] [address] [place] [address] [id number] 1993 Unknown [id number] 2.16.840.1.292169.3.579.2.59 1993 Unknown [id number] 2.16.840.1.078237.3.579.2. 1993 Unknown [id number] 2.16.840.1.561257.3.579.2.59 1993 Unknown [id number] 2.16.840.1.957863.3.579.2.59 1993 Unknown [id number] 2.16.840.1.427830.3.579.2.59 1993 Unknown [id number] 2.16.840.1.768553.3.579.2.59 1993 Unknown [id number] 2.16.840.1.387741.3.579.2.593 1993 Unknown [id number] 2.16.840.1.891468.3.579.2.59 1993 Unknown [id number] 2.16.840.1.568243.3.579.2.59 1993 Unknown [id number] 2.16.840.1.974939.3.579.2.59 1993 Unknown [id number] 2.16.840.1.063839.3.579.2.59 1993 Unknown [id number] 2.16.840.1.711988.3.579.2. 1993 Unknown [id number] 2.16.840.1.271521.3.579.2.59 1993 Unknown [id number] 2.16.840.1.375533.3.579.2. 1993 Unknown [id number] 2.16.840.1.132888.3.579.2. 1993 Unknown [id number] 2.16.840.1.346445.3.579.2.59 1993 Unknown [id number] 2.16.840.1.305951.3.579.2.59 1993 Unknown [id number] 2.16.840.1.234237.3.579.2. 1993 Unknown [id number] 2.16.840.1.796677.3.579.2.59 1993 Unknown [id number] 2.16.840.1.243864.3.579.2. 1993 Unknown [id number] 2.16.840.1.808468.3.579.2.59 1993 Unknown [id number] 2.16.840.1.882680.3.579.2.593 1993 Unknown [id number] 2.16.840.1.589869.3.579.2.593 1993 Unknown [id number] 2.16.840.1.925132.3.579.2.593 1993 Unknown [id number] 2.16.840.1.649529.3.579.2.593 1993 Unknown [id number] 2.16.840.1.884273.3.579.2.1259 1993 Unknown [id number] 2.16.840.1.610625.3.579.2.1259 1993 Unknown [id number] 2.16.840.1.074663.3.579.2.1259 1993 Unknown [id number] 2.16.840.1.790898.3.579.2.1259 1993 Unknown [id number] 2.16.840.1.713229.3.579.2.1259 1959 Unknown [id number] 1959 Unknown [id number] Self-pay Self Pay [id number] Unknown [id number] 2.16. 840.1.422438.19 Unknown MMO [id number] Unknown Osiel BC/BS [id number] Social History Date Type Detail Facility Unknown if ever smoked [facility] Other Start: 01-28-2023 Sex Assigned At [facility] Other Start: 01-28-2023 End: 05-22-2023 Tobacco smoking status NHIS Never smoked tobacco [facility] Start: 05-10-2023 Alcohol intake Current drinker of alcohol (finding) [facility] Start: 01-28-2023 History of Social function [...] Healthcare History of Present illness Narrative 05-10-2023 Melissasaundra Thornton LPN - 05/10/2023 2:50 PM EST [...] nursing note reviewed. Exam conducted with a blown film extrusion operator present. Vitals: Estimated body mass index is 30.04 kg/m as calculated from the following: Height as of 23: 5' 1 . Weight as of this [...] Ricardo Rodriguez DO documented in this encounter [facility] Clinical Note 07-08-2022 Note Date & Type Note Facility 07-08-2022 Note OPERATIVE NOTE OPERATION DATE: 07/08/2022 PROCEDURE: Diagnostic laparoscopy with fulguration of ovarian endometrial implant. PREOPERATIVE DIAGNOSIS: Pelvic pain. POSTOPERATIVE DIAGNOSIS: Pelvic pain. ANESTHESIA: General. SURGEON: Ricardo Rodriguez D.O. STITCH BONDING MACHINE OPERATOR: DEVIN Miles URINE OUTPUT: Yellow and clear. [...] Room in stable condition. [facility] Evaluation note 12-22-2020 Note Date & Type Note Facility 12-22-2020 Evaluation note Encounter Date Diagnosis Assessment Notes Nov, Irritable bowel syndrome with both constipation and diarrhea (ICD-10 - K58.2) LABS INDICATED ABOVE START TRIAL OF DICYCLOMINE 20 BID RTO 4 WEEKS [facility] Other Evaluation note Note Date & Type Note Facility Evaluation note [employer] Other Evaluation note Note Date & Type Note Facility Evaluation note Diagnosis Second trimester state, incidental Diabetes mellitus screening Screening for diabetes mellitus documented in this encounter [facility] Evaluation note Note Date & Type Note Facility Evaluation note No assessment information [facility] Work Phone: History general Narrative - Reported Note Date & Type Note Facility History general Narrative - Reported Type Medical History anxiety/depression Medical History IBS Surgical History TONSILLECTOMY [facility] [employer] Other History general Narrative - Reported Note Date & Type Note Facility History general Narrative - Reported [facility] [employer] Other Summary Purpose Family History No Family History Records Found Relationship Condition Age at Onset Recorded Date/T ricardo brother Unknown father Unknown Hypertension Unknown grandparent Hypertension Unknown Diabetes mellitus Unknown grandparent Diabetes mellitus Unknown Not Specified Malignant neoplasm Unknown Advance Directives No Advanced Directives Records Found Advance Directive Response Recorded Date/ Time Advance Directives No April 9:19am Chief Complaint and Reason for Visit Chief Complaint deep cough, exposed to RSV and flu Additional Source Comments REASON FOR VISIT (unrecogniz ed section and content) Reason Comments Routine Visit INFORMATION SOURCE (unrecogn ized section and content) DATE CREATED AUTHOR 07/13/2022 [facility] pital DATE CREATED AUTHOR AUTHOR'S ORGANIZ ATION 05/28/2023 [facility] [employer] Care Teams (unrecognized sec tion and content) Jewelry Salesperson Relationship Specialty Start Date End Date Iron Garcia MD [address] [place] [id number] PCP - General Family Medicine 11/23/22 Team Status: Active Member Role Status Yaakov Garcia MD Primary Care Provider Active Team Status: Inactive Member Role Status Dates Iron Garcia MD Primary Care Provider Active Start: [...] BE BASED ON THE PRIMARY CLINICAL RECORDS. [facility] [facility]. provides no warranty or guarantee of the accuracy or completeness of information in this document.
== END 2023-06-09 15:03 | disposition home or self-care (01) ==
LOC: US 15:02
PROVIDERS: PCP Family Medicine; Visit Provider Obstetrics & Gynecology
DX: D64.9 Anemia, unspecified (principal); O40.9XX0 Polyhydramnios, unspecified trimester, not applicable or unspecified; Z3A.29 29 weeks gestation of pregnancy
CPT/HCPCS: 36415; 76815; 85025

== ENCOUNTER 2023-06-09 15:21 | Outpatient (OUT) | payer BC, SELFPAY ==
[2023-06-09 15:41] LABS: Basophils Percent Auto 0.2 % (0.2-2.0); Eosinophils Absolute Auto 0.2 10^3/uL (0.0-0.7); Eosinophils Percent Auto 1.1 % (0.9-7.0); Hematocrit 32.2 % (36.0-48.0); Hemoglobin 10.4 g/dL (12.0-16.0); Immature Granulocytes Pct Auto 1.4 % (0.0-0.5); Lymphocytes Absolute Auto 1.9 10^3/uL (1.2-3.8); Mean Corpuscular HGB Conc 32.3 g/dL (29.9-35.2); Mean Corpuscular Hemoglobin 29.3 pg (26.7-34.0); Mean Corpuscular Volume 90.7 fL (81.0-99.0); Mean Platelet Volume 9.6 fL (9.5-13.5); Monocytes Absolute Auto 1.3 10^3/uL (0.3-0.8); Monocytes Percent Auto 9.1 % (1.7-12.0); Neutrophils Absolute Auto 10.8 10^3/uL (1.4-6.5); Neutrophils Percent Auto 75.2 % (43.0-75.0); Platelet Count 278 10^3/uL (150-450); Red Blood Count 3.55 10^6/uL (4.20-5.40); Red Cell Distribution Width 12.9 % (11.0-15.0); White Blood Count 14.3 10^3/uL (4.0-11.0)
== END 2023-06-09 15:22 | disposition home or self-care (01) ==
LOC: LAB 15:22
PROVIDERS: PCP Family Medicine; Visit Provider Obstetrics & Gynecology
DX: D64.9 Anemia, unspecified (principal)
CPT/HCPCS: 36415; 85025

== ENCOUNTER 2023-06-27 07:18 | Outpatient (OUT) | payer BC, SELFPAY ==
--- OUTSIDE RECORDS SUMMARY | 2023-06-27 07:20 | XMS_ITS | CCD ---
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 Name Role Phone Lydia Dudley Unavailable Mohini [...] Unavailable HOY ., DR PERDUE Consulting Unavailable WOODFORD, DR DUDLEY Emanuel Consulting Unavailable JENNIFER ., [...] Unavailable JENNIFER ., DR SILVA Attending Unavailable ALMAY ., DR PERDUE Primary Care Unavailable JENNIFER ., DR SILVA Consulting Unavailable Lam Vela Consulting Unavailable JENNIFER ., DR SILVA Admitting Unavailable JENNIFER ., DR SILVA Attending Unavailable HOY ., DR PERDUE Primary Care Unavailable JENNIFER ., DR SILVA Admitting Unavailable JENNIFER ., DR SILVA Attending Unavailable ALMAY ., DR PERDUE Primary Care Unavailable Iron Garcia MD Primary Care Provider [phone] RICARDO RODRIGUEZ Attending Unavailable RICARDO RODRIGUEZ Attending Unavailable RICARDO RODRIGUEZ Attending Unavailable JENNIFER, RICARDO Attending Unavailable JENNIFER, RICARDO Attending Unavailable JENNIFERRICARDO Attending Unavailable Medications Current Medications Medication Drug Class(es) Dates Sig (Normalized) Sig (Original) [id number] 200 actuat albuterol 0.09 mg/actuat metered dose [...] DAILY NEEDED FOR NAUSEA 0 02/19/2023 Active Grixym16-Uytm Fum-Folic Ac-Om3 (One A Day Women's Dha) 28 mg iron- 800 mcg combo pack (1 source) Start: 05-22-2023 Jbjlta85-Bhwu Fum-Folic Ac-Om3 (One A Day Women's Dha) [...] SARS-CoV-2 (COVID-19) RNA SHIRIN+probe Ql (Unsp spec) [facility] Urinalysis macro (dipstick) panel (U)on 05-10-2023 Bilirubin, UA Negative Negative - 4(70) +++ mg/dL [facility] Blood, UA Negative Negative - 50 Jayson/mcL [facility] Clarity, UA Clear [facility] Color, UA Yellow [facility] Glucose, UA Negative Negative - 1999(110) ++++ mg/dL [facility] Interpretation and review of laboratory results Abnormal [facility] Ketones, UA Positive Negative - 160(16) ++++ mg/dL [facility] Comment on above: trace Leukocytes, UA Trace Negative - 500+++ Lolita/mcL [facility] Nitrite, UA Negative Negative - Positive [facility] pH, UA 6.0 5 - 9 [facility] Protein, UA Negative Negative - 1999(20) ++++ mg/dL [facility] Spec Grav, UA 1.030 1 - 1.03 [facility] Urobilinogen, UA 0.2 0.2 - 12 mg/dL [facility] CBC AUTO DIFFon 07-08-2022 BASO # 0.0 103/ul Normal 0.0-0.1 [facility] Comment on above: Performed By: #### R F #### [facility] [address] [address] [address] Venkat Sloan Basophils/100 WBC (Bld) 0.5 % Normal 0.2-2.0 [facility] Comment on above: Performed By: #### R F #### [facility] [address] [place] [address] Dr. Venkat Sloan EO # 0.1 103/ul Normal 0.0-0.7 [facility] Comment on above: Performed By: #### R F #### [facility] [address] [place] [address] Dr. Venkat Sloan Eosinophils/100 WBC (Bld) 1.7 % Normal 0.9-7.0 [facility] Comment on above: Performed By: #### R F #### [facility] [address] [place] [address] Dr. Venkat Sloan Erythrocyte distribution width (RBC) [Ratio] 12.7 % Normal 11.0-15.0 [facility] Comment on above: Performed By: #### R F #### [facility] [address] [place] [address] Dr. Venkat Sloan Hematocrit (Bld) [Volume fraction] 40.4 % Normal 36.0-48.0 [facility] Comment on above: Performed By: #### R F #### [facility] [address] [place] [address] Dr. Venkat Sloan Hemoglobin (Bld) [Mass/Vol] 13.1 g/dL Normal 12.0-16.0 [facility] Comment on above: Performed By: #### R F #### [facility] [address] [place] [address] Dr. Venkat Sloan IG # 0.02 10e3/ul Normal 0.00-0.03 [facility] Comment on above: Performed By: #### R F #### [facility] [address] [place] [address] Dr. Venkat Sloan IG % 0.3 % Normal 0.0-0.5 [facility] Comment on above: Performed By: #### R F #### [facility] [address] [place] [address] Dr. Venkat Sloan LYMPH # 2.0 103/ul Normal 1.2-3.8 [facility] Comment on above: Performed By: #### R F #### [facility] [address] [place] [address] Dr. Venkat Sloan Lymphocytes/100 WBC (Bld) 26.2 % Normal 20.5-60.0 [facility] Comment on above: Performed By: #### R F #### [facility] [address] [place] [address] Dr. Venkat Sloan MANUAL DIFF REQ NO Normal [facility] Comment on above: Performed By: #### R F #### [facility] [address] [place] [address] Dr. Venkat Sloan MCH (RBC) [Entitic mass] 28.4 pg Normal 26.7-34.0 [facility] Comment on above: Performed By: #### R F #### [facility] [address] [place] [address] Dr. Venkat Sloan MCHC (RBC) [Mass/Vol] 32.4 g/dL Normal 29.9-35.2 [facility] Comment on above: Performed By: #### R F #### [facility] [address] [place] [address] Dr. Venkat Sloan MCV (RBC) [Entitic vol] 87.4 fL Normal 81.0-99.0 [facility] Comment on above: Performed By: #### R F #### [facility] [address] [place] [address] Dr. Venkat Sloan MONO # 0.7 103/ul Normal 0.3-0.8 [facility] Comment on above: Performed By: #### R F #### [facility] [address] [place] [address] Dr. Venkat Sloan Monocytes/100 WBC (Bld) 8.8 % Normal 1.7-12.0 [facility] Comment on above: Performed By: #### R F #### [facility] [address] [place] [address] Dr. Venkat Sloan NEUT # 4.8 103/ul Normal 1.4-6.5 [facility] Comment on above: Performed By: #### R F #### [facility] [address] [place] [address] Dr. Venkat Slaon Neutrophils/100 WBC (Bld) 62.5 % Normal 43.0-75.0 [facility] Comment on above: Performed By: #### R F #### [facility] [address] [place] [address] Dr. Venkat Sloan Platelet mean volume (Bld) [Entitic vol] 8.5 fL Critically low 9.5-13.5 [facility] Comment on above: Performed By: #### R F #### [facility] [address] [place] [address] Dr. Venkat Sloan PLT 331 103/ul Normal 150-450 [facility] Comment on above: Performed By: #### R F #### [facility] [address] [place] [address] Dr. Venkat Sloan RBC 4.62 106/ul Normal 4.20-5.40 [facility] Comment on above: Performed By: #### R F #### [facility] [address] [place] [address] Dr. Venkat Sloan WBC 7.7 103/ul Normal 4.0-11.0 [facility] Comment on above: Performed By: #### R F #### [facility] [address] [place] [address] Dr. Venkat Sloan PREG QUANT HCGon 07-08-2022 HCG QUANT <1 Normal [facility] Comment on above: Performed By: #### P REGQNT #### [facility] [address] [place] [address] Dr. Venkat Sloan HCG RANGE SEE BELOW Normal [facility] Comment on above: Result Comment: 5-50 0.2-1 WEEK 50-500 1-2 WEEKS 100-5,000 2-3 WEEKS 500-10,000 3-4 WEEKS 1,000-50,000 4-5 WEEKS 10,000-100,000 5-6 WEEKS 15,000-200,000 6-8 WEEKS 10,000-100,000 2-3 MONTHS Performed By: #### P REGQNT #### [facility] [address] [place] [address] Dr. Venkat Sloan PROGESTERONEon 06-23-2022 Progesterone 5.7 ng/mL Normal [facility] Comment on above: Result Comment: Foll icular phase 0.1 - 0.9 Luteal phase 1.8 - 23.9 Ovulation phase 0.1 - 12.0 First trimester 11.0 - 44.3 Second trimester 25.4 - 83.3 Third trimester 58.7 - 214.0 Postmenopausal 0.0 - 0.1 Performed By: #### T SH #### [facility] [address] [place] [address] Dr. Venkat Sloan PREG QUANT HCGon 05-31-2022 HCG QUANT 1 mIU/mL Normal [facility] Comment on above: Performed By: #### P REGQNT #### [facility] [address] [place] [address] Dr. Venkat Sloan HCG RANGE SEE BELOW Normal [facility] Comment on above: Result Comment: 5-50 0.2-1 WEEK 50-500 1-2 WEEKS 100-5,000 2-3 WEEKS 500-10,000 3-4 WEEKS 1,000-50,000 4-5 WEEKS 10,000-100,000 5-6 WEEKS 15,000-200,000 6-8 WEEKS 10,000-100,000 2-3 MONTHS Performed By: #### P REGQNT #### [facility] [address] [place] [address] Dr. Venkat Sloan PROGESTERONEon 05-21-2022 Progesterone 12.4 ng/mL Normal [facility] Comment on above: Result Comment: Foll icular phase 0.1 - 0.9 Luteal phase 1.8 - 23.9 Ovulation phase 0.1 - 12.0 First trimester 11.0 - 44.3 Second trimester 25.4 - 83.3 Third trimester 58.7 - 214.0 Postmenopausal 0.0 - 0.1 Performed By: #### I NFLUAB #### [facility] [address] [place] [address] Dr. Venkat Sloan MRI BRAIN WO W [...] LAM VELA Date: 2022-05-04 08:42 Normal [facility] PREG QUANT HCGon 05-04-2022 HCG QUANT <1 Normal [facility] Comment on above: Performed By: #### R F #### [facility] [address] [address] [address] Venkat Sloan HCG RANGE SEE BELOW Normal [facility] Comment on above: Result Comment: 5-50 0.2-1 WEEK 50-500 1-2 WEEKS 100-5,000 2-3 WEEKS 500-10,000 3-4 WEEKS 1,000-50,000 4-5 WEEKS 10,000-100,000 5-6 WEEKS 15,000-200,000 6-8 WEEKS 10,000-100,000 2-3 MONTHS Performed By: #### R F #### [facility] [address] [place] [address] Dr. Venkat Sloan XR HYSTEROSALPINGOGRAMon XR HYSTEROSALPINGOGRAM [...] LAM VELA Date: 2022-05-04 16:09 Normal [facility] PROGESTERONEon 04-24-2022 Progesterone 0.4 ng/mL Normal [facility] Comment on above: Result Comment: Foll icular phase 0.1 - 0.9 Luteal phase 1.8 - 23.9 Ovulation phase 0.1 - 12.0 First trimester 11.0 - 44.3 Second trimester 25.4 - 83.3 Third trimester 58.7 - 214.0 Postmenopausal 0.0 - 0.1 Performed By: #### I NFLUAB #### [facility] [address] [place] [address] Dr. Venkat Sloan CULTURE SPUTUMon 04-02-2022 CULTURE SPUTUM Culture Observations : NORMAL RESPIRATORY NATALEE. Normal [facility] Comment on above: Performed By: #### R F #### [facility] [address] [place] [address] Dr. Venkat Sloan SPUTUM GRAM STAINon 04-02-19 23 COMMENTS Normal [facility] Comment on above: Performed By: #### R F #### [facility] [address] [place] [address] Dr. Venkat Sloan DIPHTHEROIDS Normal [facility] Comment on above: Performed By: #### R F #### [facility] [address] [place] [address] Dr. Venkat Sloan EPITHELIALS <25 Normal [facility] Comment on above: Performed By: #### R F #### [facility] [address] [address] [address] Venkat Sloan FUNGAL ELEMENTS Normal [facility] Comment on above: Performed By: #### R F #### [facility] [address] [place] [address] Dr. Venkat Sloan GRAM NEG BACILLI RARE Normal [facility] Comment on above: Performed By: #### R F #### [facility] [address] [place] [address] Dr. Venkat Sloan GRAM NEG DIPPLOCOCCI Normal [facility] Comment on above: Performed By: #### R F #### [facility] [address] [address] [address] Venkat Sloan GRAM POS BACILLI Normal [facility] Comment on above: Performed By: #### R F #### [facility] [address] [address] [address] Venkat Sloan GRAM POSITIVE COCCI RARE Normal [facility] Comment on above: Performed By: #### R F #### [facility] [address] [address] [address] Venkat Sloan WBC (Bld) [#/Vol] 10*3/uL Normal [facility] Comment on above: Performed By: #### R F #### [facility] [address] [place] [address] Dr. Venkat Sloan [facility]on SARS-CoV-2 (COVID-19) RNA SHIRIN+probe Ql (Unsp spec) Not detected Normal NOT DETECTED [facility] Comment on above: Result Comment: This test is not yet approved or cleared by the [place] FDA. When there are no FDA-approved or cleared tests available, and other criteria are met, FDA can make tests available under an emergency access mechanism called an Emergency Use Authorization (EUA). The EUA for this test is supported by the [place] of Health and Human Service's (HHS's) declaration [...] SARS-CoV-2. Performed By: #### P REGQNT #### [facility] [address] [place] [address] Dr. Venakt Sloan INFLUENZA A AND B AGon 04-01 [facility] SEE BELOW Normal [facility] Comment on above: Result Comment: Nega tive for Flu A protein angiten. Infection due to Flu A cannot be ruled out. Flu A angiten in the sample may be below the detection limit of the test. Performed By: #### I NFLUAB #### [facility] [address] [place] [address] Dr. Venkat Sloan INFLUBANNER SEE BELOW Normal [facility] Comment on above: Result Comment: Nega tive for Flu B protein antigen. Infection due to Flu B cannot be ruled out. Flu B antigen in the sample may be below the detection limit of the test. Performed By: #### I NFLUAB #### [facility] [address] [place] [address] Dr. Venkat Sloan INFLUENZA A AG Negative Normal NEGATIVE SEE COMMENT [facility] Comment on above: Performed By: #### I NFLUAB #### [facility] [address] [place] [address] Dr. Venkat Sloan INFLUENZA B AG Negative Normal NEGATIVE SEE COMMENT [facility] Comment on above: Performed By: #### I NFLUAB #### [facility] [address] [place] [address] Dr. Venkat Sloan XR CHEST 2 Von [...] [address] Date: 2022-03-24 12:33 Normal [facility]on 02-25 SARS-CoV-2 (COVID-19) RNA SHIRIN+probe Ql (Unsp spec) Not detected Normal NOT DETECTED [facility] Comment on above: Result Comment: When diagnostic [...] for this test is supported by the [employer] Operator of Health and Human Service's declaration that [...] used). Performed By: #### R F #### [facility] [address] [place] [address] Dr. Venkat Sloan INFLUENZA A AND B [facility] 03-15 [facility] SEE BELOW Normal [facility] Comment on above: Result Comment: Nega tive for Flu A protein angiten. Infection due to Flu A cannot be ruled out. Flu A angiten in the sample may be below the detection limit of the test. Performed By: #### I NFLUAB #### [facility] [address] [place] [address] Dr. Venkat Sloan INFLUBANNER SEE BELOW Normal [facility] Comment on above: Result Comment: Nega tive for Flu B protein antigen. Infection due to Flu B cannot be ruled out. Flu B antigen in the sample may be below the detection limit of the test. Performed By: #### I NFLUAB #### [facility] [address] [place] [address] Dr. Venkat Sloan INFLUENZA A AG Negative Normal NEGATIVE SEE COMMENT [facility] Comment on above: Performed By: #### I NFLUAB #### [facility] [address] [place] [address] Dr. Venkat Sloan INFLUENZA B AG Negative Normal NEGATIVE SEE COMMENT [facility] Comment on above: Performed By: #### I NFLUAB #### [facility] [address] [place] [address] Dr. Venkat Sloan INTERNAL CONTROLS Within Normal Limits Normal Wi thin Normal Limits [facility] Comment on above: Performed By: #### I NFLUAB #### [facility] [address] [place] [address] Dr. Venkat Sloan Covid-19 PCR ([facility])on 02-25 SARS-CoV-2 (COVID-19) RNA SHIRIN+probe Ql (Unsp spec) Not detected Normal NOT DETECTED [facility] Comment on above: Result Comment: When diagnostic [...] for this test is supported by the [employer] Operator of Health and Human Service's declaration that [...] used). Performed By: #### I NFLUAB #### [facility] [address] [place] [address] Dr. Venkat Sloan INFLUENZA A AND B AGon 03-12 [facility] SEE BELOW Normal [facility] Comment on above: Result Comment: Nega tive for Flu A protein angiten. Infection due to Flu A cannot be ruled out. Flu A angiten in the sample may be below the detection limit of the test. Performed By: #### I NFLUAB #### [facility] [address] [place] [address] Dr. Venkat Sloan INFLUBANNER SEE BELOW Normal [facility] Comment on above: Result Comment: Nega tive for Flu B protein antigen. Infection due to Flu B cannot be ruled out. Flu B antigen in the sample may be below the detection limit of the test. Performed By: #### I NFLUAB #### [facility] [address] [place] [address] Dr. Venkat Sloan INFLUENZA A AG Negative Normal NEGATIVE SEE COMMENT [facility] Comment on above: Performed By: #### I NFLUAB #### [facility] [address] [address] [address] Venkat Sloan INFLUENZA B AG Negative Normal NEGATIVE SEE COMMENT [facility] Comment on above: Performed By: #### I NFLUAB #### [facility] [address] [address] [address] Venkat Sloan INTERNAL CONTROLS Within Normal Limits Normal Wi thin Normal Limits [facility] Comment on above: Performed By: #### I NFLUAB #### [facility] [address] [address] [address] Venkat Sloan PROGESTERONEon 02-20-2022 Progesterone 0.3 ng/mL Normal [facility] Comment on above: Result Comment: Foll icular phase 0.1 - 0.9 Luteal phase 1.8 - 23.9 Ovulation phase 0.1 - 12.0 First trimester 11.0 - 44.3 Second trimester 25.4 - 83.3 Third trimester 58.7 - 214.0 Postmenopausal 0.0 - 0.1 Performed By: #### R F #### [facility] [address] [place] [address] Dr. Venkat Sloan ACTH STIMULATIONon 2 Andros Baseline 49 ng/dL Normal 41-262 [facility] Comment on above: Performed By: #### R F #### [facility] [address] [address] [address] Veknat Sloan Andros Stimulated 82 ng/dL Normal Not Estab. [facility] Comment on above: Performed By: #### R F #### [facility] [address] [address] [address] Venkat Sloan [facility] PCR ([facility]on 01-26 SARS-CoV-2 (COVID-19) RNA SHIRIN+probe Ql (Unsp spec) Not detected Normal NOT DETECTED [facility] Comment on above: Result Comment: This test is not yet approved or cleared by the [place] FDA. When there are no FDA-approved or cleared tests available, and other criteria are met, FDA can make tests available under an emergency access mechanism called an Emergency Use Authorization (EUA). The EUA for this test is supported by the [place] of Health and Human Service's (HHS's) declaration [...] SARS-CoV-2. Performed By: #### I NFLUAB #### [facility] [address] [place] [address] Dr. Venkat Sloan INFLUENZA A AND B [facility] 02-10 [facility] SEE BELOW Normal [facility] Comment on above: Result Comment: Nega tive for Flu A protein angiten. Infection due to Flu A cannot be ruled out. Flu A angiten in the sample may be below the detection limit of the test. Performed By: #### P REGQNT #### [facility] [address] [place] [address] Dr. Venkat Sloan INFLUBANNER SEE BELOW Normal [facility] Comment on above: Result Comment: Nega tive for Flu B protein antigen. Infection due to Flu B cannot be ruled out. Flu B antigen in the sample may be below the detection limit of the test. Performed By: #### P REGQNT #### [facility] [address] [place] [address] Dr. Venkat Sloan INFLUENZA A AG Negative Normal NEGATIVE SEE COMMENT [facility] Comment on above: Performed By: #### P REGQNT #### [facility] [address] [place] [address] Dr. Venkat Sloan INFLUENZA B AG Negative Normal NEGATIVE SEE COMMENT [facility] Comment on above: Performed By: #### P REGQNT #### [facility] [address] [place] [address] Dr. Venkat Sloan INTERNAL CONTROLS Within Normal Limits Normal Wi thin Normal Limits [facility] Comment on above: Performed By: #### P REGQNT #### [facility] [address] [place] [address] Dr. Venkat Sloan DHEA SERUMon 01-19-2022 Dehydroepiandrosterone (DHEA) 82 ng/dL Normal 31-701 [facility] Comment on above: Result Comment: [...] 701 Performed By: #### T SH #### [facility] [address] [place] [address] Dr. Venkat Sloan DHEA-SULFATEon 01-14-2022 DHEA-Sulfate 34.0 ug/dL Critically low 84.8-378.0 [facility] Comment on above: Performed By: #### R F #### [facility] [address] [place] [address] Dr. Venkat Sloan FSHon 01-14-2022 FSH 2.2 mIU/mL Normal [facility] Comment on above: Result Comment: Adul t Female: Follicular phase 3.5 - 12.5 Ovulation phase 4.7 - 21.5 Luteal phase 1.7 - 7.7 Postmenopausal 25.8 - 134.8 Performed By: #### L BCFSH #### [facility] [address] [place] [address] Dr. Venkat Sloan LUTEINIZING HORMONE (LH)on 1 LH 5.1 mIU/mL Normal [facility] Comment on above: Result Comment: Adul t Female: Follicular phase 2.4 - 12.6 Ovulation phase 14.0 - 95.6 Luteal phase 1.0 - 11.4 Postmenopausal 7.7 - 58.5 Performed By: #### I NFLUAB #### [facility] [address] [place] [address] Dr. Venkat Sloan PROLACTINon 01-14-2022 Prolactin 8.0 ng/mL Normal 4.8-23.3 [facility] Comment on above: Performed By: #### P ROLAC #### [facility] [address] [place] [address] Dr. Venkat Sloan CBC AUTO DIFFon 01-13-2022 BASO # 0.0 103/ul Normal 0.0-0.1 [facility] Comment on above: Performed By: #### T SH #### [facility] [address] [place] [address] Dr. Venkat Sloan Basophils/100 WBC (Bld) 0.4 % Normal 0.2-2.0 [facility] Comment on above: Performed By: #### T SH #### [facility] [address] [place] [address] Dr. Venkat Sloan EO # 0.1 103/ul Normal 0.0-0.7 [facility] Comment on above: Performed By: #### T SH #### [facility] [address] [place] [address] Dr. Venkat Sloan Eosinophils/100 WBC (Bld) 1.2 % Normal 0.9-7.0 [facility] Comment on above: Performed By: #### T SH #### [facility] [address] [place] [address] Dr. Venkat Sloan Erythrocyte distribution width (RBC) [Ratio] 12.7 % Normal 11.0-15.0 [facility] Comment on above: Performed By: #### T SH #### [facility] [address] [place] [address] Dr. Venkat Sloan Hematocrit (Bld) [Volume fraction] 41.1 % Normal 36.0-48.0 [facility] Comment on above: Performed By: #### T SH #### [facility] [address] [place] [address] Dr. Venkat Sloan Hemoglobin (Bld) [Mass/Vol] 13.1 g/dL Normal 12.0-16.0 [facility] Comment on above: Performed By: #### T SH #### [facility] [address] [place] [address] Dr. Venkat Sloan IG # 0.03 10e3/ul Normal 0.00-0.03 [facility] Comment on above: Performed By: #### T SH #### [facility] [address] [place] [address] Dr. Venkat Sloan IG % 0.3 % Normal 0.0-0.5 [facility] Comment on above: Performed By: #### T SH #### [facility] [address] [place] [address] Dr. Venkat Sloan LYMPH # 1.6 103/ul Normal 1.2-3.8 [facility] Comment on above: Performed By: #### T SH #### [facility] [address] [place] [address] Dr. Venkat Sloan Lymphocytes/100 WBC (Bld) 15.0 % Critically low 20.5-60.0 [facility] Comment on above: Performed By: #### T SH #### [facility] [address] [place] [address] Dr. Venkat Sloan MANUAL DIFF REQ NO Normal [facility] Comment on above: Performed By: #### T SH #### [facility] [address] [place] [address] Dr. Venkat Sloan MCH (RBC) [Entitic mass] 28.5 pg Normal 26.7-34.0 [facility] Comment on above: Performed By: #### T SH #### [facility] [address] [place] [address] Dr. Venkat Sloan MCHC (RBC) [Mass/Vol] 31.9 g/dL Normal 29.9-35.2 [facility] Comment on above: Performed By: #### T SH #### [facility] [address] [place] [address] Dr. Venkat Sloan MCV (RBC) [Entitic vol] 89.3 fL Normal 81.0-99.0 [facility] Comment on above: Performed By: #### T SH #### [facility] [address] [place] [address] Dr. Venkat Sloan MONO # 0.9 103/ul Critically high 0.3-0.8 [facility] Comment on above: Performed By: #### T SH #### [facility] [address] [address] [address] Venkat Sloan Monocytes/100 WBC (Bld) 8.8 % Normal 1.7-12.0 [facility] Comment on above: Performed By: #### T SH #### [facility] [address] [address] [address] Venkat Sloan NEUT # 7.9 103/ul Critically high 1.4-6.5 [facility] Comment on above: Performed By: #### T SH #### [facility] [address] [address] [address] Venkat Sloan Neutrophils/100 WBC (Bld) 74.3 % Normal 43.0-75.0 [facility] Comment on above: Performed By: #### T SH #### [facility] [address] [place] [address] Dr. Venkat Sloan Platelet mean volume (Bld) [Entitic vol] 9.2 fL Critically low 9.5-13.5 [facility] Comment on above: Performed By: #### T SH #### [facility] [address] [address] [address] Venkat Sloan PLT 300 103/ul Normal 150-450 [facility] Comment on above: Performed By: #### T SH #### [facility] [address] [address] [address] Venkat Sloan RBC 4.60 106/ul Normal 4.20-5.40 [facility] Comment on above: Performed By: #### T SH #### [facility] [address] [place] [address] Dr. Venkat Sloan WBC 10.7 103/ul Normal 4.0-11.0 [facility] Comment on above: Performed By: #### T SH #### [facility] [address] [place] [address] Dr. Venkat Sloan GLYCOHEMOGLOBIN A1Con 2021 ADA RECOMMENDATION SEE BELOW Normal [facility] Comment on above: Result Comment: ADA RECOMMENDED LIMIT 4.0 - 6.0 ADA THERAPEUTIC TARGET < 7.0 ACTION SUGGESTED > 7.0 Performed By: #### P REGQNT #### [facility] [address] [place] [address] Dr. Venkat Sloan Glucose [Mass/Vol] 100 mg/dL Normal [facility] Comment on above: Performed By: #### P REGQNT #### [facility] [address] [place] [address] Dr. Venkat Sloan HbA1c (Bld) [Mass fraction] 5.1 % Normal 4.5-6.2 [facility] Comment on above: Performed By: #### P REGQNT #### [facility] [address] [place] [address] Dr. Venkat Sloan TSHon 01-13-2022 TSH 1.098 uIU/mL Normal 0.358-3.740 [facility] Comment on above: Performed By: #### T SH #### [facility] [address] [place] [address] Dr. Venkat Sloan [facility] SARS-CoV-2 (COVID-19) RNA SHIRIN+probe Ql (Unsp spec) Not detected Normal NOT DETECTED [facility] Comment on above: Result Comment: This test is not yet approved or cleared by the [place] FDA. When there are no FDA-approved or cleared tests available, and other criteria are met, FDA can make tests available under an emergency access mechanism called an Emergency Use Authorization (EUA). The EUA for this test is supported by the [place] of Health and Human Service's (HHS's) declaration [...] SARS-CoV-2. Performed By: #### I NFLUAB #### [facility] [address] [address] [address] Venkat Sloan PREG QUANT HCGon 12-24-2021 HCG QUANT <1 Normal [facility] Comment on above: Performed By: #### P REGQNT #### [facility] [address] [address] [address] Venkat Sloan HCG RANGE SEE BELOW Normal [facility] Comment on above: Result Comment: 5-50 0.2-1 WEEK 50-500 1-2 WEEKS 100-5,000 2-3 WEEKS 500-10,000 3-4 WEEKS 1,000-50,000 4-5 WEEKS 10,000-100,000 5-6 WEEKS 15,000-200,000 6-8 WEEKS 10,000-100,000 2-3 MONTHS Performed By: #### P REGQNT #### [facility] [address] [address] [address] Venkat Sloan HCG-BETA SUBUNIT QUANTon hCG,Beta Subunit,Qnt,Serum <1 Normal [facility] Comment on above: Result Comment: Fema le (Non-) 0 - 5 (Postmenopausal) 0 - 8 . Female () Weeks of Gestation 3 6 - 71 4 10 - 750 5 217 - 7138 6 158 - 84603 7 [phone] 8 53439 -[phone] 9 62631 -[phone] 10 92132 -775205 12 64456 -[phone] 14 64361 - 24155 15 98168 - 94889 16 9024 - 36684 17 4973 - 73850 18 2768 - 29347 Aj ECLIA methodology Performed By: #### T SH #### [facility] [address] [address] [address] Venkat Sloan BRETT by IFAon 09-29-2021 Antinuclear Antibodies, IFA Negative Normal [facility] Comment on above: Result Comment: Nega tive <1:80 Borderline 1:80 Positive >1:80 ICAP nomenclature: AC-0 For more information about Hep-2 cell patterns use ANApatterns.org, the official website for the International Consensus on Antinuclear Antibody (BRETT) Patterns (ICAP). Performed By: #### A NAIFA #### [facility] [address] [place] [address] Dr. Venkat Sloan INSULINon 09-29-2021 Insulin 11.1 uIU/mL Normal 2.6-24.9 [facility] Comment on above: Performed By: #### T SH #### [facility] [address] [place] [address] Dr. Venkat Sloan ANTISTREPTOLYSIN O AB (ASO)o n 09-27-2021 Antistreptolysin O Ab <20.0 Normal 0.0-200.0 [facility] Comment on above: Performed By: #### P REGQNT #### [facility] [address] [place] [address] Dr. Venkat Sloan RHEUMATOID FACTORon 09-28-19 RA Latex Turbid. <10.0 Normal <14.0 [facility] Comment on above: Performed By: #### R F #### [facility] [address] [place] [address] Dr. Venkat Sloan CBC AUTO DIFFon 09-26-2021 BASO # 0.0 103/ul Normal 0.0-0.1 [facility] Comment on above: Performed By: #### T SH #### [facility] [address] [place] [address] Dr. Venkat Sloan Basophils/100 WBC (Bld) 0.3 % Normal 0.2-2.0 [facility] Comment on above: Performed By: #### T SH #### [facility] [address] [place] [address] Dr. Venkat Sloan EO # 0.1 103/ul Normal 0.0-0.7 [facility] Comment on above: Performed By: #### T SH #### [facility] [address] [place] [address] Dr. Venkat Sloan Eosinophils/100 WBC (Bld) 1.8 % Normal 0.9-7.0 [facility] Comment on above: Performed By: #### T SH #### [facility] [address] [place] [address] Dr. Venkat Sloan Erythrocyte distribution width (RBC) [Ratio] 12.9 % Normal 11.0-15.0 [facility] Comment on above: Performed By: #### T SH #### [facility] [address] [place] [address] Dr. Venkat Sloan Hematocrit (Bld) [Volume fraction] 39.8 % Normal 36.0-48.0 [facility] Comment on above: Performed By: #### T SH #### [facility] [address] [place] [address] Dr. Venkat Sloan Hemoglobin (Bld) [Mass/Vol] 12.7 g/dL Normal 12.0-16.0 [facility] Comment on above: Performed By: #### T SH #### [facility] [address] [place] [address] Dr. Venkat Sloan IG # 0.02 10e3/ul Normal 0.00-0.03 [facility] Comment on above: Performed By: #### T SH #### [facility] [address] [place] [address] Dr. Venkat Sloan IG % 0.3 % Normal 0.0-0.5 [facility] Comment on above: Performed By: #### T SH #### [facility] [address] [place] [address] Dr. Venkat Sloan LYMPH # 1.5 103/ul Normal 1.2-3.8 [facility] Comment on above: Performed By: #### T SH #### [facility] [address] [place] [address] Dr. Venkat Sloan Lymphocytes/100 WBC (Bld) 21.5 % Normal 20.5-60.0 [facility] Comment on above: Performed By: #### T SH #### [facility] [address] [place] [address] Dr. Venkat Sloan MANUAL DIFF REQ NO Normal [facility] Comment on above: Performed By: #### T SH #### [facility] [address] [place] [address] Dr. Venkat Sloan MCH (RBC) [Entitic mass] 28.5 pg Normal 26.7-34.0 [facility] Comment on above: Performed By: #### T SH #### [facility] [address] [place] [address] Dr. Venkat Sloan MCHC (RBC) [Mass/Vol] 31.9 g/dL Normal 29.9-35.2 [facility] Comment on above: Performed By: #### T SH #### [facility] [address] [place] [address] Dr. Venkat Sloan MCV (RBC) [Entitic vol] 89.2 fL Normal 81.0-99.0 [facility] Comment on above: Performed By: #### T SH #### [facility] [address] [place] [address] Dr. Venkat Sloan MONO # 0.5 103/ul Normal 0.3-0.8 [facility] Comment on above: Performed By: #### T SH #### [facility] [address] [place] [address] Dr. Venkat Sloan Monocytes/100 WBC (Bld) 7.6 % Normal 1.7-12.0 [facility] Comment on above: Performed By: #### T SH #### [facility] [address] [place] [address] Dr. Venkat Sloan NEUT # 4.9 103/ul Normal 1.4-6.5 [facility] Comment on above: Performed By: #### T SH #### [facility] [address] [place] [address] Dr. Venkat Sloan Neutrophils/100 WBC (Bld) 68.5 % Normal 43.0-75.0 [facility] Comment on above: Performed By: #### T SH #### [facility] [address] [place] [address] Dr. Venkat Sloan Platelet mean volume (Bld) [Entitic vol] 8.8 fL Critically low 9.5-13.5 [facility] Comment on above: Performed By: #### T SH #### [facility] [address] [place] [address] Dr. Venkat Sloan PLT 297 103/ul Normal 150-450 [facility] Comment on above: Performed By: #### T SH #### [facility] [address] [place] [address] Dr. Venkat Sloan RBC 4.46 106/ul Normal 4.20-5.40 [facility] Comment on above: Performed By: #### T SH #### [facility] [address] [place] [address] Dr. Venkat Sloan WBC 7.1 103/ul Normal 4.0-11.0 [facility] Comment on above: Performed By: #### T SH #### [facility] [address] [place] [address] Dr. Venkat Sloan CRPon 09-26-2021 CRP [Mass/Vol] mg/L Normal <=1.0 [facility] Comment on above: Performed By: #### P REGQNT #### [facility] [address] [place] [address] Dr. Venkat Sloan FREE THYROXINE INDEX T7on FTI 2.71 Normal 1.30-4.50 [facility] Comment on above: Performed By: #### P REGQNT #### [facility] [address] [place] [address] Dr. Vnekat Sloan T3U 33.0 % Normal 30.0-39.0 [facility] Comment on above: Performed By: #### P REGQNT #### [facility] [address] [place] [address] Dr. Venkat Sloan T4 [Mass/Vol] 8.20 ug/dL Normal 4.80-13.90 [facility] Comment on above: Performed By: #### P REGQNT #### [facility] [address] [place] [address] Dr. Venkat Sloan GLYCOHEMOGLOBIN A1Con 2021 ADA RECOMMENDATION SEE BELOW Normal [facility] Comment on above: Result Comment: ADA RECOMMENDED LIMIT 4.0 - 6.0 ADA THERAPEUTIC TARGET < 7.0 ACTION SUGGESTED > 7.0 Performed By: #### I NFLUAB #### [facility] [address] [address] [address] Venkat Sloan Glucose [Mass/Vol] 105 mg/dL Normal [facility] Comment on above: Performed By: #### I NFLUAB #### [facility] [address] [place] [address] Dr. Venkat Sloan HbA1c (Bld) [Mass fraction] 5.3 % Normal 4.5-6.2 [facility] Comment on above: Performed By: #### I NFLUAB #### [facility] [address] [place] [address] Dr. Venkat Sloan IRONon 09-26-2021 Iron [Mass/Vol] 49.0 ug/dL Critically low 50.0-170.0 [facility] Comment on above: Performed By: #### P REGQNT #### [facility] [address] [place] [address] Dr. Venkat Sloan LIPID PROFILEon 09-26-2021 CHOL-HDL RATIO NORM SEE BELOW Normal [facility] Comment on above: Result Comment: 3.3 - 4.4 LOW RISK 4.4 - 7.1 AVERAGE RISK 7.1 - 11.0 MODERATE RISK >11.0 HIGH RISK Performed By: #### P REGQNT #### [facility] [address] [place] [address] Dr. Venkat Sloan Cholesterol [Mass/Vol] 197 mg/dL Normal <=200 [facility] Comment on above: Performed By: #### P REGQNT #### [facility] [address] [place] [address] Dr. Venkat Slaon Cholesterol in HDL [Mass/Vol] 64 mg/dL Critically high 40-60 [facility] Comment on above: Performed By: #### P REGQNT #### [facility] [address] [place] [address] Dr. Venkat Sloan Cholesterol in LDL [Mass/Vol] 123.4 mg/dL Normal [facility] Comment on above: Performed By: #### P REGQNT #### [facility] [address] [place] [address] Dr. Venkat Sloan Cholesterol.total/Choles terol in HDL [Mass ratio] 3.1 {ratio} Normal [facility] Comment on above: Performed By: #### P REGQNT #### [facility] [address] [address] [address] Venkat Sloan HDL NORMAL > or = 60 mg/dl - LO W CARDIOVASCULAR RISK <40 mg/dl - HIGH CARDIOVASCULAR RISK Normal [facility] Comment on above: Performed By: #### P REGQNT #### [facility] [address] [address] [address] Venkat Sloan LDL CALC NORMAL SEE BELOW Normal [facility] Comment on above: Result Comment: <100 mg/dl OPTIMAL 100 - 129 mg/dl NEAR OR ABOVE OPTIMAL 130 - 159 mg/dl BORDERLINE HIGH 160 - 189 mg/dl HIGH >190 mg/dl VERY HIGH Performed By: #### P REGQNT #### [facility] [address] [address] [address] Venkat Sloan Triglyceride [Mass/Vol] 48 mg/dL Normal <=150 [facility] Comment on above: Performed By: #### P REGQNT #### [facility] [address] [address] [address] Venkat Sloan VLDL CALC 9.6 mg/dL Normal [facility] Comment on above: Performed By: #### P REGQNT #### [facility] [address] [address] [address] Venkat Sloan PROF 14(COMP METB)on 022 Albumin [Mass/Vol] 4.0 g/dL Normal 3.4-5.0 [facility] Comment on above: Performed By: #### I NFLUAB #### [facility] [address] [address] [address] Venkat Sloan Albumin/Globulin [Mass ratio] 1.3 {ratio} Normal [facility] Comment on above: Performed By: #### I NFLUAB #### [facility] [address] [address] [address] Venkat Sloan ALP [Catalytic activity/Vol] 58 U/L Normal 46-116 [facility] Comment on above: Performed By: #### I NFLUAB #### [facility] [address] [address] [address] Venkat Sloan ALT [Catalytic activity/Vol] 20 U/L Normal 14-59 [facility] Comment on above: Performed By: #### I NFLUAB #### [facility] [address] [address] [address] Venkat Sloan Anion gap [Moles/Vol] 10.4 mmol/L Normal [facility] Comment on above: Performed By: #### I NFLUAB #### [facility] [address] [address] [address] Venkat Sloan AST [Catalytic activity/Vol] 11 U/L Critically low 15-37 [facility] Comment on above: Performed By: #### I NFLUAB #### [facility] [address] [address] [address] Venkat Sloan Bilirubin [Mass/Vol] 0.8 mg/dL Normal 0.2-1.0 [facility] Comment on above: Performed By: #### I NFLUAB #### [facility] [address] [address] [address] Venkat Sloan Calcium [Mass/Vol] 9.0 mg/dL Normal 8.5-10.1 [facility] Comment on above: Performed By: #### I NFLUAB #### [facility] [address] [address] [address] Venkat Sloan Chloride [Moles/Vol] 106 mmol/L Normal 98-107 [facility] Comment on above: Performed By: #### I NFLUAB #### [facility] [address] [address] [address] Venkat Sloan CO2 [Moles/Vol] 27.0 mmol/L Normal 21.0-32.0 [facility] Comment on above: Performed By: #### I NFLUAB #### [facility] [address] [address] [address] Venkat Sloan Creatinine [Mass/Vol] 0.70 mg/dL Normal 0.55-1.02 [facility] Comment on above: Performed By: #### I NFLUAB #### [facility] [address] [address] [address] Venkat Sloan EGFR-AF PRYDEINIG >60 Normal >=60 [facility] Comment on above: Performed By: #### I NFLUAB #### [facility] [address] [address] [address] Venkat Sloan EGFR-NON AF PRYDEINIG >60 Normal >=60 [facility] Comment on above: Performed By: #### I NFLUAB #### [facility] [address] [address] [address] Venkat Sloan Globulin (S) [Mass/Vol] 3.2 g/dL Normal [facility] Comment on above: Performed By: #### I NFLUAB #### [facility] [address] [address] [address] Venkat Sloan Glucose [Mass/Vol] 92 mg/dL Normal 74-106 [facility] Comment on above: Performed By: #### I NFLUAB #### [facility] [address] [address] [address] Venkat Sloan Potassium [Moles/Vol] 4.4 mmol/L Normal 3.5-5.1 [facility] Comment on above: Performed By: #### I NFLUAB #### [facility] [address] [address] [address] Venkat Sloan Protein [Mass/Vol] 7.2 g/dL Normal 6.4-8.2 [facility] Comment on above: Performed By: #### I NFLUAB #### [facility] [address] [address] [address] Venkat Sloan Sodium [Moles/Vol] 139 mmol/L Normal 136-145 [facility] Comment on above: Performed By: #### I NFLUAB #### [facility] [address] [address] [address] Venkat Sloan Urea nitrogen [Mass/Vol] 13.0 mg/dL Normal 7.0-18.0 [facility] Comment on above: Performed By: #### I NFLUAB #### [facility] [address] [address] [address] Venkat Sloan Urea nitrogen/Creatinine [Mass ratio] 18.6 mg/mg Normal [facility] Comment on above: Performed By: #### I NFLUAB #### [facility] [address] [address] [address] Venkat Sloan TSHon 09-26-2021 TSH 1.318 uIU/mL Normal 0.358-3.740 [facility] Comment on above: Performed By: #### P REGQNT #### [facility] [address] [address] [address] Venkat Sloan URIC ACID SERUMon 09-26-2021 Urate [Mass/Vol] 3.9 mg/dL Normal 2.6-6.0 [facility] Comment on above: Performed By: #### P REGQNT #### [facility] [address] [address] [address] Venkat Sloan XR CSPINE MIN 4 [...] DUDLEY HERNÁNDEZ Date: 2021-09-24 21:16 Normal [facility] PREG QUANT HCGon 08-17-2021 HCG QUANT <1 Normal [facility] Comment on above: Performed By: #### I NFLUAB #### [facility] [address] [place] [address] Dr. Venkat Sloan HCG RANGE SEE BELOW Normal [facility] Comment on above: Result Comment: 5-50 0-1 WEEK 40-300 1-2 WEEKS 100-1,000 2-3 WEEKS 500-6,000 3-4 WEEKS 5,000-200,000 1-2 MONTHS 10,000-100,000 2-3 MONTHS 3,000-50,000 2ND TRIMESTER 1,000-50,000 3RD TRIMESTER Performed By: #### I NFLUAB #### [facility] [address] [place] [address] Dr. Venkat Sloan US PELVIS AND TRANSVAGon [...] DUDLEY HERNÁNDEZ Date: 2021-08-17 07:01 Normal [facility] COVID Quick Testingon 2020 Result Negative [facility] Other Vital Signs Date Time Vital Sign Value Performing Clinician Facility 05-22-2023 09:270500 Body height 154.94 cm [facility] 05-22-2023 09:27-0500 Body mass index (BMI) [Ratio] 30.8 kg/m2 [facility] 05-22-2023 09:27-0500 Body temperature 98.1 [degF] [facility] 05-22-2023 09:27-0500 Body weight 74.04 kg [facility] 05-22-2023 09:27-0500 Heart rate 78 /min [facility] 05-22-2023 09:27-0500 Respiratory rate 16 /min [facility] 05-22-2023 09:27-0500 SaO2% (BldA) [Mass fraction] 98 % [facility] 05-10-2023 15:14-0500 Body mass index (BMI) [Ratio] 30.04 kg/m2 Ricardo Jennifer DO Work Phone: [facility] 05-10-2023 15:14-0500 Body weight 72.12 kg Ricardo Jennifer DO Work Phone: [facility] 05-10-2023 15:14-0500 Diastolic blood pressure 70 mm[Hg] Ricardo Jennifer DO Work Phone: [facility] 05-10-2023 15:14-0500 Systolic blood pressure 110 mm[Hg] Ricardo Jennifer DO Work Phone: [facility] 01-27-2021 18:45-0400 Body height 154.94 cm Mohini Juan Other [facility] Other 01-27-2021 18:45-0400 Body mass index (BMI) [Ratio] 28.34 kg/m2 Mohini Juan Other [facility] Other 01-27-2021 18:45-0400 Body temperature 96.4 [degF] Mohini Juan Other [facility] Other 01-27-2021 18:45-0400 Body weight 68.04 kg Mohini Juan Other [facility] Other 01-27-2021 18:45-0400 Respiratory rate 18 /min Mohini Juan Other [facility] Other 01-27-2021 18:45-0400 SaO2% (BldA) [Mass fraction] 99 % Mohini Martinez Other [facility] Other 12-22-2020 11:45-0400 Body height 154.94 cm Dudley Fereman Other [facility] Other 12-22-2020 11:45-0400 Body mass index (BMI) [Ratio] 28.34 kg/m2 Dudley Freeman Other [facility] Other 12-22-2020 11:45-0400 Body weight 68.04 kg Dudley Freeman Other [facility] Other Encounters Encounter Date Encounter Type Care Provider Facility Start: 06-13-2023 End: 06-13-2023 ambulatory RICARDO JENNIFER Not Available Start: 05-26-2023 End: 05-26-2023 ambulatory RICARDO JENNIFER Not Available Start: 05-22-2023 End: 05-22-2023 ambulatory [facility] Work Phone: Start: 05-22-2023 End: 05-22-2023 Patient encounter procedure [facility] Work Phone: Start: 05-10-2023 [...] preprocedural examination DR RICARDO RODRIGUEZ . [facility] Start: 07-08-2022 End: 07-08-[address] RICARDO [...] adult medical examination without abnormal findings DR IORN GARCIA . [facility] Start: 09-26-2021 End: 09-27-[address] IRON [...] 01-27-2021 End: 01-27-2021 ambulatory Mohini Martinez Other [facility] Other Start: 01-27-2021 Office outpatient vi sit [...] AM EST Routine [facility] [address] [place] [id number] Ricardo Rodriguez DO [address] [place] [address] [facility] Start: 05-10-2023 End: 05-10-2024 CBC panel - Blood by Automated count CBC Lab Routine Diabetes mellitus screening Expected: 05/10/2023 (Approximate), Expires: 05/10/2024 [facility] Work Phone: Comment on above: Expected: 05/10/2023 (Approximate), Expires: 05/10/2024 Start: 05-10-2023 End: 05-10-2024 Measurement of glucose 1 hour after glucose challenge for glucose tolerance test Glucose tolerance, 1 hour Lab Routine Diabetes mellitus screening Expected: 05/10/2023 (Approximate), Expires: 05/10/2024 [facility] Comment on above: Expected: 05/10/2023 (Approximate), Expires: 05/10/2024 Start: 11-26-2022 Influenza vaccination Influenz a Vaccine (#1) [facility] Immunizations Immunization Date Immunization Notes Care Provider Fa tammy 01-25-2022 influenza virus vacc ine, unspecified formulation Ricardo Rodriguez DO Work Phone: [facility] Payers Date Payer Category Payer Unknown BCBS BCBS [id number] [id number] 2022-Present [phone] [address] [place] [address] [id number] 8671.315 1993 Unknown [id number] 2.16.840.1.769668.3.579.2.593 1993 Unknown [id number] 2.16.840.1.114121.3.579.2.59 1993 Unknown [id number] 2.16.840.1.275406.3.579.2.59 1993 Unknown [id number] 2.16.840.1.615373.3.579.2.59 1993 Unknown [id number] 2.16.840.1.572002.3.579.2.593 1993 Unknown [id number] 2.16.840.1.792164.3.579.2.593 1993 Unknown [id number] 2.16.840.1.401569.3.579.2.593 1993 Unknown [id number] 2.16.840.1.318173.3.579.2.593 1993 Unknown [id number] 2.16.840.1.484145.3.579.2.593 1993 Unknown [id number] 2.16.840.1.247494.3.579.2.593 1993 Unknown [id number] 2.16.840.1.177506.3.579.2.593 1993 Unknown [id number] 2.16.840.1.422405.3.579.2.593 1993 Unknown [id number] 2.16.840.1.392209.3.579.2.59 1993 Unknown [id number] 2.16.840.1.605404.3.579.2.593 1993 Unknown [id number] 2.16.840.1.807336.3.579.2.59 1993 Unknown [id number] 2.16.840.1.481665.3.579.2.593 1993 Unknown [id number] 2.16.840.1.104020.3.579.2.59 1993 Unknown [id number] 2.16.840.1.288066.3.579.2.59 1993 Unknown [id number] 2.16.840.1.815692.3.579.2.59 1993 Unknown [id number] 2.16.840.1.160640.3.579.2.59 1993 Unknown [id number] 2.16.840.1.587286.3.579.2.593 1993 Unknown [id number] 2.16.840.1.634379.3.579.2.593 1993 Unknown [id number] 2.16.840.1.611584.3.579.2.593 1993 Unknown [id number] 2.16.840.1.760921.3.579.2.593 1993 Unknown [id number] 2.16.840.1.087485.3.579.2.593 1993 Unknown [id number] 2.16.840.1.733021.3.579.2.1259 1993 Unknown [id number] 2.16.840.1.162584.3.579.2.1259 1993 Unknown [id number] 2.16.840.1.359160.3.579.2.1259 1993 Unknown [id number] 2.16.840.1.224873.3.579.2.1259 1993 Unknown [id number] 2.16.840.1.574420.3.579.2.1259 1993 Unknown [id number] 2.16.840.1.136150.3.579.2.1259 1959 Unknown [id number] 1959 Unknown [id number] Self-pay Self Pay [id number] Unknown [id number] 2.16. 840.1.384872.19 Unknown [facility] [id number] Unknown [employer]BS [id number] Social History Date Type Detail Facility Unknown if ever smoked [facility] Other Start: 01-28-2023 Sex Assigned At [facility] Other Start: 01-28-2023 End: 05-22-2023 Tobacco smoking [...] of Present illness Narrative 05-10-2023 Melissa Thornton, [employer] - 05/10/2023 2:50 PM EST Note Date [...] nursing note reviewed. Exam conducted with a crane operator present. Vitals: Estimated body mass index [...] Ricardo Rodriguez DO documented in this encounter [facility] Clinical Note 07-08-2022 Note Date & Type Note Facility 07-08-2022 Note OPERATIVE NOTE OPERATION DATE: 07/08/2022 PROCEDURE: Diagnostic laparoscopy with fulguration of ovarian endometrial implant. PREOPERATIVE DIAGNOSIS: Pelvic pain. POSTOPERATIVE DIAGNOSIS: Pelvic pain. ANESTHESIA: General. SURGEON: Ricardo Rodriguez D.O. RECREATION ENGINEER: DEVIN Miles URINE OUTPUT: Yellow and clear. [...] to Recovery Room in stable condition. [facility] Evaluation note 12-22-2020 Note Date & Type Note Facility 12-22-2020 Evaluation note Encounter Date Diagnosis Assessment Notes Nov, Irritable bowel syndrome with both constipation and diarrhea (ICD-10 - K58.2) LABS INDICATED ABOVE START TRIAL OF DICYCLOMINE 20 BID RTO 4 WEEKS [facility] Other Evaluation note Note Date & Type Note Facility Evaluation note [facility] Other Evaluation note Note Date & Type Note Facility Evaluation note Diagnosis Second trimester state, incidental Diabetes mellitus screening Screening for diabetes mellitus documented in this encounter [facility] Evaluation note Note Date & Type Note Facility Evaluation note No assessment information availa [facility] Work Phone: History general Narrative - Reported Note Date & Type Note Facility History general Narrative - Reported Type Medical History anxiety/depression Medical History IBS Surgical History TONSILLECTOMY [facility] [employer] Other History general Narrative - Reported Note Date & Type Note Facility History general Narrative - Reported [facility] [employer] Other Summary Purpose Family History No Family [...] and content) DATE CREATED AUTHOR 07/13/2022 [facility] DATE CREATED AUTHOR AUTHOR'S ORGANIZ ATION 06/14/2023 [facility] [employer] Care Teams (unrecognized sec tion and content) 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 [employer] [facility]. provides no warranty or guarantee of the accuracy or completeness of information in this document.
--- NOTE | 2023-06-27 17:00 | US_ITS ---
[address] [address] Patient Name: ESTER BRADFORD MRN: [facility]:[id number] date: 1995 Sex: F Assigned Patient Location: US Current Patient Location: Accession/Order Number: [id number] Exam Date: 06/27/2023 17:04 Report Date: 06/28/2023 07:15 At the request of: RICARDO LEGGETT Procedure: US OB BPP w non-stress EXAMINATION: US OB BPP w non-stress HISTORY: JOSESITO INCREASED [id number] COMPARISON: Ultrasound amniotic fluid volume 06/09/2023, ultrasound OB growth 05/26/2023 TECHNIQUE: Ultrasound biophysical profile was performed in the radiology department. BREATHING MOVEMENTS: 2.0 GROSS BODY MOVEMENTS: 2.0 TONE: 2.0 QUALITATIVE AMNIOTIC FLUID VOLUME: 2.0 PRESENTATION: CEPHALIC HEART RATE: 157.9 bpm bpm. AMNIOTIC FLUID VOLUME: 19.2 cm GESTATIONAL AGE: 32 weeks 3 days CONCLUSION: Total biophysical profile score 8.0. Electronically authenticated by: JUDITH MACHUCA Date: 06/28/2023 07:15
[2023-06-27 17:27] VITALS: BP 108/62; PULSE 86
== END 2023-06-27 17:51 | disposition home or self-care (01) ==
LOC: US 07:18 → FBC 17:01
PROVIDERS: PCP Family Medicine; Visit Provider Obstetrics & Gynecology
DX: O40.9XX0 Polyhydramnios, unspecified trimester, not applicable or unspecified (principal); Z3A.32 32 weeks gestation of pregnancy
CPT/HCPCS: 76818

== ENCOUNTER 2023-06-30 07:10 | Outpatient (OUT) | payer BC, SELFPAY ==
--- OUTSIDE RECORDS SUMMARY | 2023-06-30 07:12 | XMS_ITS | CCD ---
Author Organization [facility] Care Team Providers Care Planner Chief Name Role Phone Lydia Dudley Unavailable Mohini [...] Unavailable HOY ., DR PERDUE Consulting Unavailable EVERGREEN, DR DUDLEY Emanuel Consulting Unavailable JENNIFER ., [...] Unavailable Iron Garcia MD Primary Care Provider [phone] RICARDO RODRIGUEZ Attending Unavailable RICARDO RODRIGUEZ Attending Unavailable RICARDO RODRIGUEZ Attending Unavailable JENNIFER, RICARDO Attending Unavailable JENNIFER, RICARDO Attending Unavailable JENNIFERRICARDO Attending Unavailable Medications Current Medications Medication Drug Class(es) Dates Sig (Normalized) Sig (Original) [id number] 200 actuat albuterol 0.09 mg/actuat metered dose [...] DAILY NEEDED FOR NAUSEA 0 02/19/2023 Active Rokryk84-Dzof Fum-Folic Ac-Om3 (One A Day Women's Dha) 28 mg iron- 800 mcg combo pack (1 source) Start: 05-22-2023 Fqwjxd66-Iqsm Fum-Folic Ac-Om3 (One A Day Women's Dha) [...] SARS-CoV-2 (COVID-19) RNA SHIRIN+probe Ql (Unsp spec) [facility] Urinalysis macro (dipstick) panel (U)on 05-10-2023 Bilirubin, UA Negative Negative - 4(70) +++ mg/dL [facility] Blood, UA Negative Negative - 50 Jayson/mcL [facility] Clarity, UA Clear [facility] Color, UA Yellow [facility] Glucose, UA Negative Negative - 1999(110) ++++ mg/dL [facility] Interpretation and review of laboratory results Abnormal [facility] Ketones, UA Positive Negative - 160(16) ++++ mg/dL [facility] Comment on above: trace Leukocytes, UA Trace Negative - 500+++ Lolita/mcL [facility] Nitrite, UA Negative Negative - Positive [facility] pH, UA 6.0 5 - 9 [facility] Protein, UA Negative Negative - 1999(20) ++++ mg/dL [facility] Spec Grav, UA 1.030 1 - 1.03 [facility] Urobilinogen, UA 0.2 0.2 - 12 mg/dL [facility] CBC AUTO DIFFon 07-08-2022 BASO # 0.0 103/ul Normal 0.0-0.1 [facility] Comment on above: Performed By: #### R F #### [facility] [address] [address] [address] Venkat Sloan Basophils/100 WBC (Bld) 0.5 % Normal 0.2-2.0 [facility] Comment on above: Performed By: #### R F #### [facility] [address] [place] [address] Dr. Venkat Sloan EO # 0.1 103/ul Normal 0.0-0.7 [facility] Comment on above: Performed By: #### R F #### [facility] [address] [place] [address] Dr. Venkat Sloan Eosinophils/100 WBC (Bld) 1.7 % Normal 0.9-7.0 [facility] Comment on above: Performed By: #### R F #### [facility] [address] [place] [address] Dr. Venkat Sloan Erythrocyte distribution width (RBC) [Ratio] 12.7 % Normal 11.0-15.0 [facility] Comment on above: Performed By: #### R F #### [facility] [address] [place] [address] Dr. Venkat Sloan Hematocrit (Bld) [Volume fraction] 40.4 % Normal 36.0-48.0 [facility] Comment on above: Performed By: #### R F #### [facility] [address] [place] [address] Dr. Venkat Sloan Hemoglobin (Bld) [Mass/Vol] 13.1 g/dL Normal 12.0-16.0 [facility] Comment on above: Performed By: #### R F #### [facility] [address] [place] [address] Dr. Venkat Sloan IG # 0.02 10e3/ul Normal 0.00-0.03 [facility] Comment on above: Performed By: #### R F #### [facility] [address] [place] [address] Dr. Venkat Sloan IG % 0.3 % Normal 0.0-0.5 [facility] Comment on above: Performed By: #### R F #### [facility] [address] [place] [address] Dr. Venkat Sloan LYMPH # 2.0 103/ul Normal 1.2-3.8 [facility] Comment on above: Performed By: #### R F #### [facility] [address] [place] [address] Dr. Venkat Sloan Lymphocytes/100 WBC (Bld) 26.2 % Normal 20.5-60.0 [facility] Comment on above: Performed By: #### R F #### [facility] [address] [place] [address] Dr. Venkat Sloan MANUAL DIFF REQ NO Normal [facility] Comment on above: Performed By: #### R F #### [facility] [address] [place] [address] Dr. Venkat Sloan MCH (RBC) [Entitic mass] 28.4 pg Normal 26.7-34.0 [facility] Comment on above: Performed By: #### R F #### [facility] [address] [place] [address] Dr. Venkat Sloan MCHC (RBC) [Mass/Vol] 32.4 g/dL Normal 29.9-35.2 [facility] Comment on above: Performed By: #### R F #### [facility] [address] [place] [address] Dr. Venkat Sloan MCV (RBC) [Entitic vol] 87.4 fL Normal 81.0-99.0 [facility] Comment on above: Performed By: #### R F #### [facility] [address] [place] [address] Dr. Venkat Sloan MONO # 0.7 103/ul Normal 0.3-0.8 [facility] Comment on above: Performed By: #### R F #### [facility] [address] [place] [address] Dr. Venkat Sloan Monocytes/100 WBC (Bld) 8.8 % Normal 1.7-12.0 [facility] Comment on above: Performed By: #### R F #### [facility] [address] [place] [address] Dr. Venkat Sloan NEUT # 4.8 103/ul Normal 1.4-6.5 [facility] Comment on above: Performed By: #### R F #### [facility] [address] [place] [address] Dr. Venkat Sloan Neutrophils/100 WBC (Bld) 62.5 % Normal 43.0-75.0 [facility] Comment on above: Performed By: #### R F #### [facility] [address] [place] [address] Dr. Venkat Sloan Platelet mean volume (Bld) [Entitic vol] 8.5 fL Critically low 9.5-13.5 [facility] Comment on above: Performed By: #### R F #### [facility] [address] [place] [address] Dr. Venkat Sloan PLT 331 103/ul Normal 150-450 [facility] Comment on above: Performed By: #### R F #### [facility] [address] [place] [address] Dr. Venkat Sloan RBC 4.62 106/ul Normal 4.20-5.40 [facility] Comment on above: Performed By: #### R F #### [facility] [address] [place] [address] Dr. Venkat Sloan WBC 7.7 103/ul Normal 4.0-11.0 [facility] Comment on above: Performed By: #### R F #### [facility] [address] [place] [address] Dr. Venkat Sloan PREG QUANT HCGon 07-08-2022 HCG QUANT <1 Normal [facility] Comment on above: Performed By: #### P REGQNT #### [facility] [address] [place] [address] Dr. Venkat Sloan HCG RANGE SEE BELOW Normal [facility] Comment on above: Result Comment: 5-50 0.2-1 WEEK 50-500 1-2 WEEKS 100-5,000 2-3 WEEKS 500-10,000 3-4 WEEKS 1,000-50,000 4-5 WEEKS 10,000-100,000 5-6 WEEKS 15,000-200,000 6-8 WEEKS 10,000-100,000 2-3 MONTHS Performed By: #### P REGQNT #### [facility] [address] [place] [address] Dr. Venkat Slaon PROGESTERONEon 06-23-2022 Progesterone 5.7 ng/mL Normal [facility] Comment on above: Result Comment: Foll icular phase 0.1 - 0.9 Luteal phase 1.8 - 23.9 Ovulation phase 0.1 - 12.0 First trimester 11.0 - 44.3 Second trimester 25.4 - 83.3 Third trimester 58.7 - 214.0 Postmenopausal 0.0 - 0.1 Performed By: #### T SH #### [facility] [address] [place] [address] Dr. Venkat Sloan PREG QUANT HCGon 05-31-2022 HCG QUANT 1 mIU/mL Normal [facility] Comment on above: Performed By: #### P REGQNT #### [facility] [address] [place] [address] Dr. Venkat Sloan HCG RANGE SEE BELOW Normal [facility] Comment on above: Result Comment: 5-50 0.2-1 WEEK 50-500 1-2 WEEKS 100-5,000 2-3 WEEKS 500-10,000 3-4 WEEKS 1,000-50,000 4-5 WEEKS 10,000-100,000 5-6 WEEKS 15,000-200,000 6-8 WEEKS 10,000-100,000 2-3 MONTHS Performed By: #### P REGQNT #### [facility] [address] [place] [address] Dr. Venkat Sloan PROGESTERONEon 05-21-2022 Progesterone 12.4 ng/mL Normal [facility] Comment on above: Result Comment: Foll icular phase 0.1 - 0.9 Luteal phase 1.8 - 23.9 Ovulation phase 0.1 - 12.0 First trimester 11.0 - 44.3 Second trimester 25.4 - 83.3 Third trimester 58.7 - 214.0 Postmenopausal 0.0 - 0.1 Performed By: #### I NFLUAB #### [facility] [address] [place] [address] Dr. Venkat Sloan MRI BRAIN WO W [...] LAM VELA Date: 2022-05-04 08:42 Normal [facility] PREG QUANT HCGon 05-04-2022 HCG QUANT <1 Normal [facility] Comment on above: Performed By: #### R F #### [facility] [address] [address] [address] Venkat Sloan HCG RANGE SEE BELOW Normal [facility] Comment on above: Result Comment: 5-50 0.2-1 WEEK 50-500 1-2 WEEKS 100-5,000 2-3 WEEKS 500-10,000 3-4 WEEKS 1,000-50,000 4-5 WEEKS 10,000-100,000 5-6 WEEKS 15,000-200,000 6-8 WEEKS 10,000-100,000 2-3 MONTHS Performed By: #### R F #### [facility] [address] [place] [address] Dr. Venkat Sloan XR HYSTEROSALPINGOGRAMon XR HYSTEROSALPINGOGRAM [...] LAM VELA Date: 2022-05-04 16:09 Normal [facility] PROGESTERONEon 04-24-2022 Progesterone 0.4 ng/mL Normal [facility] Comment on above: Result Comment: Foll icular phase 0.1 - 0.9 Luteal phase 1.8 - 23.9 Ovulation phase 0.1 - 12.0 First trimester 11.0 - 44.3 Second trimester 25.4 - 83.3 Third trimester 58.7 - 214.0 Postmenopausal 0.0 - 0.1 Performed By: #### I NFLUAB #### [facility] [address] [place] [address] Dr. Venkat Sloan CULTURE SPUTUMon 04-02-2022 CULTURE SPUTUM Culture Observations : NORMAL RESPIRATORY NATALEE. Normal [facility] Comment on above: Performed By: #### R F #### [facility] [address] [place] [address] Dr. Venkat Sloan SPUTUM GRAM STAINon 04-02-19 23 COMMENTS Normal [facility] Comment on above: Performed By: #### R F #### [facility] [address] [place] [address] Dr. Venkat Sloan DIPHTHEROIDS Normal [facility] Comment on above: Performed By: #### R F #### [facility] [address] [place] [address] Dr. Venkat Sloan EPITHELIALS <25 Normal [facility] Comment on above: Performed By: #### R F #### [facility] [address] [address] [address] Venkat Sloan FUNGAL ELEMENTS Normal [facility] Comment on above: Performed By: #### R F #### [facility] [address] [place] [address] Dr. Venkat Sloan GRAM NEG BACILLI RARE Normal The [facility] Comment on above: Performed By: #### R F #### [facility] [address] [place] [address] Dr. Venkat Sloan GRAM NEG DIPPLOCOCCI Normal [facility] Comment on above: Performed By: #### R F #### [facility] [address] [address] [address] Venkat Sloan GRAM POS BACILLI Normal The [facility] Comment on above: Performed By: #### R F #### [facility] [address] [address] [address] Venkat Sloan GRAM POSITIVE COCCI RARE Normal The [facility] Comment on above: Performed By: #### R F #### [facility] [address] [address] [address] Venkat Sloan WBC (Bld) [#/Vol] 10*3/uL Normal The [facility] Comment on above: Performed By: #### R F #### [facility] [address] [place] [address] Dr. Venkat Sloan [facility] SARS-CoV-2 (COVID-19) RNA SHIRIN+probe Ql (Unsp spec) Not detected Normal NOT DETECTED [facility] Comment on above: Result Comment: This test is not yet approved or cleared by the [place] FDA. When there are no FDA-approved or cleared tests available, and other criteria are met, FDA can make tests available under an emergency access mechanism called an Emergency Use Authorization (EUA). The EUA for this test is supported by the [place] [employer] of Health and Human Service's (HHS's) [...] SARS-CoV-2. Performed By: #### P REGQNT #### [facility] [address] [place] [address] Dr. Venkat Sloan INFLUENZA A AND B AGon 04-01 [facility] SEE BELOW Normal [facility] Comment on above: Result Comment: Nega tive for Flu A protein angiten. Infection due to Flu A cannot be ruled out. Flu A angiten in the sample may be below the detection limit of the test. Performed By: #### I NFLUAB #### [facility] [address] [place] [address] Dr. [facility] Normal [facility] Comment on above: Result Comment: Nega tive for Flu B protein antigen. Infection due to Flu B cannot be ruled out. Flu B antigen in the sample may be below the detection limit of the test. Performed By: #### I NFLUAB #### [facility] [address] [place] [address] Dr. Venkat Sloan INFLUENZA A AG Negative Normal NEGATIVE SEE COMMENT [facility] Comment on above: Performed By: #### I NFLUAB #### [facility] [address] [place] [address] Dr. Venkat Sloan INFLUENZA B AG Negative Normal NEGATIVE SEE COMMENT [facility] Comment on above: Performed By: #### I NFLUAB #### [facility] [address] [place] [address] Dr. Venkat Sloan XR CHEST 2 Von [...] [address] Date: 2022-03-24 12:33 Normal [facility]on 02-25 SARS-CoV-2 (COVID-19) RNA SHIRIN+probe Ql (Unsp spec) Not detected Normal NOT DETECTED [facility] Comment on above: Result Comment: When diagnostic [...] for this test is supported by the Pack Out Operator of Health and Human Service's declaration [...] used). Performed By: #### R F #### [facility] [address] [place] [address] Dr. Venkat Sloan INFLUENZA A AND B [facility] 03-15 [facility] SEE BELOW Normal [facility] Comment on above: Result Comment: Nega tive for Flu A protein angiten. Infection due to Flu A cannot be ruled out. Flu A angiten in the sample may be below the detection limit of the test. Performed By: #### I NFLUAB #### [facility] [address] [place] [address] Dr. Ven[facility] Normal [facility] Comment on above: Result Comment: Nega tive for Flu B protein antigen. Infection due to Flu B cannot be ruled out. Flu B antigen in the sample may be below the detection limit of the test. Performed By: #### I NFLUAB #### [facility] [address] [place] [address] Dr. Venkat Sloan INFLUENZA A AG Negative Normal NEGATIVE SEE COMMENT [facility] Comment on above: Performed By: #### I NFLUAB #### [facility] [address] [place] [address] Dr. Venkat Sloan INFLUENZA B AG Negative Normal NEGATIVE SEE COMMENT [facility] Comment on above: Performed By: #### I NFLUAB #### [facility] [address] [place] [address] Dr. Venkat Sloan INTERNAL CONTROLS Within Normal Limits Normal Wi thin Normal Limits [facility] Comment on above: Performed By: #### I NFLUAB #### [facility] [address] [place] [address] Dr. Venkat Sloan Covid-19 PCR ([facility])on 02-25 SARS-CoV-2 (COVID-19) RNA SHIRIN+probe Ql (Unsp spec) Not detected Normal NOT DETECTED [facility] Comment on above: Result Comment: When diagnostic [...] for this test is supported by the Pack Out Operator of Health and Human Service's declaration [...] used). Performed By: #### I NFLUAB #### [facility] [address] [place] [address] Dr. Venkat Sloan INFLUENZA A AND B AGon 03-[address] [facility] BEL[facility] Normal [facility] Comment on above: Result Comment: Nega tive for Flu A protein angiten. Infection due to Flu A cannot be ruled out. Flu A angiten in the sample may be below the detection limit of the test. Performed By: #### I NFLUAB #### [facility] [address] [place] [address] Dr. Ven[facility] Normal [facility] Comment on above: Result Comment: Nega tive for Flu B protein antigen. Infection due to Flu B cannot be ruled out. Flu B antigen in the sample may be below the detection limit of the test. Performed By: #### I NFLUAB #### [facility] [address] [place] [address] Dr. Venkat Sloan INFLUENZA A AG Negative Normal NEGATIVE SEE COMMENT [facility] Comment on above: Performed By: #### I NFLUAB #### [facility] [address] [address] [address] Venkat Sloan INFLUENZA B AG Negative Normal NEGATIVE SEE COMMENT [facility] Comment on above: Performed By: #### I NFLUAB #### [facility] [address] [address] [address] Venkat Sloan INTERNAL CONTROLS Within Normal Limits Normal Wi thin Normal Limits [facility] Comment on above: Performed By: #### I NFLUAB #### [facility] [address] [address] [address] Venkat Solan PROGESTERONEon 02-20-2022 Progesterone 0.3 ng/mL Normal [facility] Comment on above: Result Comment: Foll icular phase 0.1 - 0.9 Luteal phase 1.8 - 23.9 Ovulation phase 0.1 - 12.0 First trimester 11.0 - 44.3 Second trimester 25.4 - 83.3 Third trimester 58.7 - 214.0 Postmenopausal 0.0 - 0.1 Performed By: #### R F #### [facility] [address] [place] [address] Dr. Venkat Sloan ACTH STIMULATIONon 2 Andros Baseline 49 ng/dL Normal 41-262 [facility] Comment on above: Performed By: #### R F #### [facility] [address] [address] [address] Venkat Sloan Andros Stimulated 82 ng/dL Normal Not Estab. The [facility] Comment on above: Performed By: #### R F #### [facility] [address] [address] [address] Venkat Sloan [facility]on 01-26 SARS-CoV-2 (COVID-19) RNA SHIRIN+probe Ql (Unsp spec) Not detected Normal NOT DETECTED [facility] Comment on above: Result Comment: This test is not yet approved or cleared by the [place] FDA. When there are no FDA-approved or cleared tests available, and other criteria are met, FDA can make tests available under an emergency access mechanism called an Emergency Use Authorization (EUA). The EUA for this test is supported by the [place] of Health and Human Service's (HHS's) declaration [...] SARS-CoV-2. Performed By: #### I NFLUAB #### [facility] [address] [place] [address] Dr. Venkat Sloan INFLUENZA A AND B [facility] 02-10 [facility] SEE BELOW Normal [facility] Comment on above: Result Comment: Nega tive for Flu A protein angiten. Infection due to Flu A cannot be ruled out. Flu A angiten in the sample may be below the detection limit of the test. Performed By: #### P REGQNT #### [facility] [address] [place] [address] Dr. Ven[facility] BELOW Normal [facility] Comment on above: Result Comment: Nega tive for Flu B protein antigen. Infection due to Flu B cannot be ruled out. Flu B antigen in the sample may be below the detection limit of the test. Performed By: #### P REGQNT #### [facility] [address] [place] [address] Dr. Venkat Sloan INFLUENZA A AG Negative Normal NEGATIVE SEE COMMENT [facility] Comment on above: Performed By: #### P REGQNT #### [facility] [address] [place] [address] Dr. Venkat Sloan INFLUENZA B AG Negative Normal NEGATIVE SEE COMMENT [facility] Comment on above: Performed By: #### P REGQNT #### [facility] [address] [place] [address] Dr. Venkat Sloan INTERNAL CONTROLS Within Normal Limits Normal Wi thin Normal Limits [facility] Comment on above: Performed By: #### P REGQNT #### [facility] [address] [place] [address] Dr. Venkat Sloan DHEA SERUMon 01-19-2022 Dehydroepiandrosterone (DHEA) 82 ng/dL Normal 31-701 [facility] Comment on above: Result Comment: Age 1 [...] 701 Performed By: #### T SH #### [facility] [address] [place] [address] Dr. Venkat Sloan DHEA-SULFATEon 01-14-2022 DHEA-Sulfate 34.0 ug/dL Critically low 84.8-378.0 [facility] Comment on above: Performed By: #### R F #### [facility] [address] [place] [address] Dr. Venkat Sloan FSHon 01-14-2022 FSH 2.2 mIU/mL Normal [facility] Comment on above: Result Comment: Adul t Female: Follicular phase 3.5 - 12.5 Ovulation phase 4.7 - 21.5 Luteal phase 1.7 - 7.7 Postmenopausal 25.8 - 134.8 Performed By: #### L BCFSH #### [facility] [address] [place] [address] Dr. Venkat Sloan LUTEINIZING HORMONE (LH)on 1 LH 5.1 mIU/mL Normal [facility] Comment on above: Result Comment: Adul t Female: Follicular phase 2.4 - 12.6 Ovulation phase 14.0 - 95.6 Luteal phase 1.0 - 11.4 Postmenopausal 7.7 - 58.5 Performed By: #### I NFLUAB #### [facility] [address] [place] [address] Dr. Venkat Sloan PROLACTINon 01-14-2022 Prolactin 8.0 ng/mL Normal 4.8-23.3 [facility] Comment on above: Performed By: #### P ROLAC #### [facility] [address] [place] [address] Dr. Venkat Sloan CBC AUTO DIFFon 01-13-2022 BASO # 0.0 103/ul Normal 0.0-0.1 [facility] Comment on above: Performed By: #### T SH #### [facility] [address] [place] [address] Dr. Venkat Sloan Basophils/100 WBC (Bld) 0.4 % Normal 0.2-2.0 [facility] Comment on above: Performed By: #### T SH #### [facility] [address] [place] [address] Dr. Venkat Sloan EO # 0.1 103/ul Normal 0.0-0.7 [facility] Comment on above: Performed By: #### T SH #### [facility] [address] [place] [address] Dr. Venkat Sloan Eosinophils/100 WBC (Bld) 1.2 % Normal 0.9-7.0 [facility] Comment on above: Performed By: #### T SH #### [facility] [address] [place] [address] Dr. Venkat Sloan Erythrocyte distribution width (RBC) [Ratio] 12.7 % Normal 11.0-15.0 [facility] Comment on above: Performed By: #### T SH #### [facility] [address] [place] [address] Dr. Venkat Sloan Hematocrit (Bld) [Volume fraction] 41.1 % Normal 36.0-48.0 [facility] Comment on above: Performed By: #### T SH #### [facility] [address] [place] [address] Dr. Venkat Sloan Hemoglobin (Bld) [Mass/Vol] 13.1 g/dL Normal 12.0-16.0 [facility] Comment on above: Performed By: #### T SH #### [facility] [address] [place] [address] Dr. Venkat Sloan IG # 0.03 10e3/ul Normal 0.00-0.03 [facility] Comment on above: Performed By: #### T SH #### [facility] [address] [place] [address] Dr. Venkat Sloan IG % 0.3 % Normal 0.0-0.5 [facility] Comment on above: Performed By: #### T SH #### [facility] [address] [place] [address] Dr. Venkat Sloan LYMPH # 1.6 103/ul Normal 1.2-3.8 [facility] Comment on above: Performed By: #### T SH #### [facility] [address] [place] [address] Dr. Venkat Sloan Lymphocytes/100 WBC (Bld) 15.0 % Critically low 20.5-60.0 [facility] Comment on above: Performed By: #### T SH #### [facility] [address] [place] [address] Dr. Venkat Sloan MANUAL DIFF REQ NO Normal [facility] Comment on above: Performed By: #### T SH #### [facility] [address] [place] [address] Dr. Venkat Sloan MCH (RBC) [Entitic mass] 28.5 pg Normal 26.7-34.0 [facility] Comment on above: Performed By: #### T SH #### [facility] [address] [place] [address] Dr. Venkat Sloan MCHC (RBC) [Mass/Vol] 31.9 g/dL Normal 29.9-35.2 [facility] Comment on above: Performed By: #### T SH #### [facility] [address] [place] [address] Dr. Venkat Sloan MCV (RBC) [Entitic vol] 89.3 fL Normal 81.0-99.0 [facility] Comment on above: Performed By: #### T SH #### [facility] [address] [place] [address] Dr. Venkat Sloan MONO # 0.9 103/ul Critically high 0.3-0.8 [facility] Comment on above: Performed By: #### T SH #### [facility] [address] [address] [address] Venkat Sloan Monocytes/100 WBC (Bld) 8.8 % Normal 1.7-12.0 [facility] Comment on above: Performed By: #### T SH #### [facility] [address] [address] [address] Venkat Sloan NEUT # 7.9 103/ul Critically high 1.4-6.5 [facility] Comment on above: Performed By: #### T SH #### [facility] [address] [address] [address] Venkat Sloan Neutrophils/100 WBC (Bld) 74.3 % Normal 43.0-75.0 [facility] Comment on above: Performed By: #### T SH #### [facility] [address] [place] [address] Dr. Venkat Sloan Platelet mean volume (Bld) [Entitic vol] 9.2 fL Critically low 9.5-13.5 [facility] Comment on above: Performed By: #### T SH #### [facility] [address] [address] [address] Venkat Sloan PLT 300 103/ul Normal 150-450 [facility] Comment on above: Performed By: #### T SH #### [facility] [address] [address] [address] Venkat Sloan RBC 4.60 106/ul Normal 4.20-5.40 [facility] Comment on above: Performed By: #### T SH #### [facility] [address] [place] [address] Dr. Venkat Sloan WBC 10.7 103/ul Normal 4.0-11.0 [facility] Comment on above: Performed By: #### T SH #### [facility] [address] [place] [address] Dr. Venkat Sloan GLYCOHEMOGLOBIN A1Con 2021 ADA RECOMMENDATION SEE BELOW Normal [facility] [place] Comment on above: Result Comment: ADA RECOMMENDED LIMIT 4.0 - 6.0 ADA THERAPEUTIC TARGET < 7.0 ACTION SUGGESTED > 7.0 Performed By: #### P REGQNT #### [facility] [address] [place] [address] Dr. Venkat Sloan Glucose [Mass/Vol] 100 mg/dL Normal [facility] Comment on above: Performed By: #### P REGQNT #### [facility] [address] [place] [address] Dr. Venkat Sloan HbA1c (Bld) [Mass fraction] 5.1 % Normal 4.5-6.2 [facility] Comment on above: Performed By: #### P REGQNT #### [facility] [address] [place] [address] Dr. Venkat Sloan TSHon 01-13-2022 TSH 1.098 uIU/mL Normal 0.358-3.740 [facility] Comment on above: Performed By: #### T SH #### [facility] [address] [place] [address] Dr. Venkat Sloan [facility]26 SARS-CoV-2 (COVID-19) RNA SHIRIN+probe Ql (Unsp spec) Not detected Normal NOT DETECTED [facility] Comment on above: Result Comment: This test is not yet approved or cleared by the [place] FDA. When there are no FDA-approved or cleared tests available, and other criteria are met, FDA can make tests available under an emergency access mechanism called an Emergency Use Authorization (EUA). The EUA for this test is supported by the [place] of Health and Human Service's (HHS's) declaration [...] SARS-CoV-2. Performed By: #### I NFLUAB #### [facility] [address] [address] [address] Venkat Sloan PREG QUANT HCGon 12-24-2021 HCG QUANT <1 Normal [facility] Comment on above: Performed By: #### P REGQNT #### [facility] [address] [address] [address] Venkat Sloan HCG RANGE SEE BELOW Normal [facility] Comment on above: Result Comment: 5-50 0.2-1 WEEK 50-500 1-2 WEEKS 100-5,000 2-3 WEEKS 500-10,000 3-4 WEEKS 1,000-50,000 4-5 WEEKS 10,000-100,000 5-6 WEEKS 15,000-200,000 6-8 WEEKS 10,000-100,000 2-3 MONTHS Performed By: #### P REGQNT #### [facility] [address] [address] [address] Venkat Sloan HCG-BETA SUBUNIT QUANTon hCG,Beta Subunit,Qnt,Serum <1 Normal [facility] Comment on above: Result Comment: Fema le (Non-) 0 - 5 (Postmenopausal) 0 - 8 . Female () Weeks of Gestation 3 6 - 71 4 10 - 750 5 217 - 7138 6 158 - 48815 7 [phone] 8 [phone] 9 [phone] 10 [phone] -[phone] 12 [phone] -[phone] 14 82420 - 34756 15 41469 - 51554 16 8369 - [phone] 17 1761 - [phone] 18 4534 - [phone] Aj ECLIA methodology Performed By: #### T SH #### [facility] [address] [address] [address] Venkat Sloan BRETT by IFAon 09-29-2021 Antinuclear Antibodies, IFA Negative Normal [facility] Comment on above: Result Comment: Nega tive <1:80 Borderline 1:80 Positive >1:80 ICAP nomenclature: AC-0 For more information about Hep-2 cell patterns use ANApatterns.org, the official website for the International Consensus on Antinuclear Antibody (BRETT) Patterns (ICAP). Performed By: #### A NAIFA #### [facility] [address] [place] [address] Dr. Venkat Sloan INSULINon 09-29-2021 Insulin 11.1 uIU/mL Normal 2.6-24.9 [facility] Comment on above: Performed By: #### T SH #### [facility] [address] [place] [address] Dr. Venkat Sloan ANTISTREPTOLYSIN O AB (ASO)o n 09-27-2021 Antistreptolysin O Ab <20.0 Normal 0.0-200.0 [facility] Comment on above: Performed By: #### P REGQNT #### [facility] [address] [place] [address] Dr. Venkat Sloan RHEUMATOID FACTORon 09-28-19 RA Latex Turbid. <10.0 Normal <14.0 [facility] Comment on above: Performed By: #### R F #### [facility] [address] [place] [address] Dr. Venkat Sloan CBC AUTO DIFFon 09-26-2021 BASO # 0.0 103/ul Normal 0.0-0.1 [facility] Comment on above: Performed By: #### T SH #### [facility] [address] [place] [address] Dr. Venkat Sloan Basophils/100 WBC (Bld) 0.3 % Normal 0.2-2.0 [facility] Comment on above: Performed By: #### T SH #### [facility] [address] [place] [address] Dr. Venkat Sloan EO # 0.1 103/ul Normal 0.0-0.7 [facility] Comment on above: Performed By: #### T SH #### [facility] [address] [place] [address] Dr. Venkat Sloan Eosinophils/100 WBC (Bld) 1.8 % Normal 0.9-7.0 [facility] Comment on above: Performed By: #### T SH #### [facility] [address] [place] [address] Dr. Venkat Sloan Erythrocyte distribution width (RBC) [Ratio] 12.9 % Normal 11.0-15.0 [facility] Comment on above: Performed By: #### T SH #### [facility] [address] [place] [address] Dr. Venkat Sloan Hematocrit (Bld) [Volume fraction] 39.8 % Normal 36.0-48.0 [facility] Comment on above: Performed By: #### T SH #### [facility] [address] [place] [address] Dr. Venkat Sloan Hemoglobin (Bld) [Mass/Vol] 12.7 g/dL Normal 12.0-16.0 [facility] Comment on above: Performed By: #### T SH #### [facility] [address] [place] [address] Dr. Venkat Sloan IG # 0.02 10e3/ul Normal 0.00-0.03 [facility] Comment on above: Performed By: #### T SH #### [facility] [address] [place] [address] Dr. Venkat Sloan IG % 0.3 % Normal 0.0-0.5 [facility] Comment on above: Performed By: #### T SH #### [facility] [address] [place] [address] Dr. Venkat Sloan LYMPH # 1.5 103/ul Normal 1.2-3.8 [facility] Comment on above: Performed By: #### T SH #### [facility] [address] [place] [address] Dr. Venkat Sloan Lymphocytes/100 WBC (Bld) 21.5 % Normal 20.5-60.0 [facility] Comment on above: Performed By: #### T SH #### [facility] [address] [place] [address] Dr. Venkat Sloan MANUAL DIFF REQ NO Normal [facility] Comment on above: Performed By: #### T SH #### [facility] [address] [place] [address] Dr. Venkat Sloan MCH (RBC) [Entitic mass] 28.5 pg Normal 26.7-34.0 [facility] Comment on above: Performed By: #### T SH #### [facility] [address] [place] [address] Dr. Venkat Sloan MCHC (RBC) [Mass/Vol] 31.9 g/dL Normal 29.9-35.2 [facility] Comment on above: Performed By: #### T SH #### [facility] [address] [place] [address] Dr. Venkat Sloan MCV (RBC) [Entitic vol] 89.2 fL Normal 81.0-99.0 [facility] Comment on above: Performed By: #### T SH #### [facility] [address] [place] [address] Dr. Venkat Sloan MONO # 0.5 103/ul Normal 0.3-0.8 [facility] Comment on above: Performed By: #### T SH #### [facility] [address] [place] [address] Dr. Venkat Sloan Monocytes/100 WBC (Bld) 7.6 % Normal 1.7-12.0 [facility] Comment on above: Performed By: #### T SH #### [facility] [address] [place] [address] Dr. Venkat Sloan NEUT # 4.9 103/ul Normal 1.4-6.5 [facility] Comment on above: Performed By: #### T SH #### [facility] [address] [place] [address] Dr. Venkat Sloan Neutrophils/100 WBC (Bld) 68.5 % Normal 43.0-75.0 [facility] Comment on above: Performed By: #### T SH #### [facility] [address] [place] [address] Dr. Venkat Sloan Platelet mean volume (Bld) [Entitic vol] 8.8 fL Critically low 9.5-13.5 [facility] Comment on above: Performed By: #### T SH #### [facility] [address] [place] [address] Dr. Venkat Sloan PLT 297 103/ul Normal 150-450 [facility] Comment on above: Performed By: #### T SH #### [facility] [address] [place] [address] Dr. Venkat Sloan RBC 4.46 106/ul Normal 4.20-5.40 [facility] Comment on above: Performed By: #### T SH #### [facility] [address] [place] [address] Dr. Venkat Sloan WBC 7.1 103/ul Normal 4.0-11.0 [facility] Comment on above: Performed By: #### T SH #### [facility] [address] [place] [address] Dr. Veknat Sloan CRPon 09-26-2021 CRP [Mass/Vol] mg/L Normal <=1.0 [facility] Comment on above: Performed By: #### P REGQNT #### [facility] [address] [place] [address] Dr. Venkat Sloan FREE THYROXINE INDEX T7on FTI 2.71 Normal 1.30-4.50 [facility] Comment on above: Performed By: #### P REGQNT #### [facility] [address] [place] [address] Dr. Venkat Sloan T3U 33.0 % Normal 30.0-39.0 [facility] Comment on above: Performed By: #### P REGQNT #### [facility] [address] [place] [address] Dr. Venkat Sloan T4 [Mass/Vol] 8.20 ug/dL Normal 4.80-13.90 [facility] Comment on above: Performed By: #### P REGQNT #### [facility] [address] [place] [address] Dr. Venkat Sloan GLYCOHEMOGLOBIN A1Con 2021 ADA RECOMMENDATION SEE BELOW Normal [facility] Comment on above: Result Comment: ADA RECOMMENDED LIMIT 4.0 - 6.0 ADA THERAPEUTIC TARGET < 7.0 ACTION SUGGESTED > 7.0 Performed By: #### I NFLUAB #### [facility] [address] [address] [address] Venkat Sloan Glucose [Mass/Vol] 105 mg/dL Normal [facility] Comment on above: Performed By: #### I NFLUAB #### [facility] [address] [place] [address] Dr. Venkat Sloan HbA1c (Bld) [Mass fraction] 5.3 % Normal 4.5-6.2 [facility] Comment on above: Performed By: #### I NFLUAB #### [facility] [address] [place] [address] Dr. Venkat Sloan IRONon 09-26-2021 Iron [Mass/Vol] 49.0 ug/dL Critically low 50.0-170.0 [facility] Comment on above: Performed By: #### P REGQNT #### [facility] [address] [place] [address] Dr. Venkat Sloan LIPID PROFILEon 09-26-2021 CHOL-HDL RATIO NORM SEE BELOW Normal [facility] Comment on above: Result Comment: 3.3 - 4.4 LOW RISK 4.4 - 7.1 AVERAGE RISK 7.1 - 11.0 MODERATE RISK >11.0 HIGH RISK Performed By: #### P REGQNT #### [facility] [address] [place] [address] Dr. Venkat Sloan Cholesterol [Mass/Vol] 197 mg/dL Normal <=200 [facility] Comment on above: Performed By: #### P REGQNT #### [facility] [address] [place] [address] Dr. Venkat Sloan Cholesterol in HDL [Mass/Vol] 64 mg/dL Critically high 40-60 [facility] Comment on above: Performed By: #### P REGQNT #### [facility] [address] [place] [address] Dr. Venkat Sloan Cholesterol in LDL [Mass/Vol] 123.4 mg/dL Normal [facility] Comment on above: Performed By: #### P REGQNT #### [facility] [address] [place] [address] Dr. Venkat Sloan Cholesterol.total/Choles terol in HDL [Mass ratio] 3.1 {ratio} Normal [facility] Comment on above: Performed By: #### P REGQNT #### [facility] [address] [address] [address] Venkat Sloan HDL NORMAL > or = 60 mg/dl - LO W CARDIOVASCULAR RISK <40 mg/dl - HIGH CARDIOVASCULAR RISK Normal [facility] Comment on above: Performed By: #### P REGQNT #### [facility] [address] [address] [address] Venkat Sloan LDL CALC NORMAL SEE BELOW Normal [facility] Comment on above: Result Comment: <100 mg/dl OPTIMAL 100 - 129 mg/dl NEAR OR ABOVE OPTIMAL 130 - 159 mg/dl BORDERLINE HIGH 160 - 189 mg/dl HIGH >190 mg/dl VERY HIGH Performed By: #### P REGQNT #### [facility] [address] [address] [address] Venkat Sloan Triglyceride [Mass/Vol] 48 mg/dL Normal <=150 [facility] Comment on above: Performed By: #### P REGQNT #### [facility] [address] [address] [address] Venkat Sloan VLDL CALC 9.6 mg/dL Normal [facility] Comment on above: Performed By: #### P REGQNT #### [facility] [address] [address] [address] Venkat Sloan PROF 14(COMP METB)on 022 Albumin [Mass/Vol] 4.0 g/dL Normal 3.4-5.0 [facility] Comment on above: Performed By: #### I NFLUAB #### [facility] [address] [address] [address] Venkat Sloan Albumin/Globulin [Mass ratio] 1.3 {ratio} Normal [facility] Comment on above: Performed By: #### I NFLUAB #### [facility] [address] [address] [address] Venkat Sloan ALP [Catalytic activity/Vol] 58 U/L Normal 46-116 [facility] Comment on above: Performed By: #### I NFLUAB #### [facility] [address] [address] [address] Venkat Sloan ALT [Catalytic activity/Vol] 20 U/L Normal 14-59 [facility] Comment on above: Performed By: #### I NFLUAB #### [facility] [address] [address] [address] Venkat Sloan Anion gap [Moles/Vol] 10.4 mmol/L Normal [facility] Comment on above: Performed By: #### I NFLUAB #### [facility] [address] [address] [address] Venkat Sloan AST [Catalytic activity/Vol] 11 U/L Critically low 15-37 [facility] Comment on above: Performed By: #### I NFLUAB #### [facility] [address] [address] [address] Venkat Sloan Bilirubin [Mass/Vol] 0.8 mg/dL Normal 0.2-1.0 [facility] Comment on above: Performed By: #### I NFLUAB #### [facility] [address] [address] [address] Venkat Sloan Calcium [Mass/Vol] 9.0 mg/dL Normal 8.5-10.1 [facility] Comment on above: Performed By: #### I NFLUAB #### [facility] [address] [address] [address] Venkat Sloan Chloride [Moles/Vol] 106 mmol/L Normal 98-107 [facility] Comment on above: Performed By: #### I NFLUAB #### [facility] [address] [address] [address] Venkat Sloan CO2 [Moles/Vol] 27.0 mmol/L Normal 21.0-32.0 [facility] Comment on above: Performed By: #### I NFLUAB #### [facility] [address] [address] [address] Venkat Sloan Creatinine [Mass/Vol] 0.70 mg/dL Normal 0.55-1.02 [facility] Comment on above: Performed By: #### I NFLUAB #### [facility] [address] [address] [address] Venkat Sloan EGFR-AF BERMUDIAN >60 Normal >=60 [facility] Comment on above: Performed By: #### I NFLUAB #### [facility] [address] [address] [address] Venkat Sloan EGFR-NON AF BERMUDIAN >60 Normal >=60 [facility] Comment on above: Performed By: #### I NFLUAB #### [facility] [address] [address] [address] Venkat Sloan Globulin (S) [Mass/Vol] 3.2 g/dL Normal T [facility] Comment on above: Performed By: #### I NFLUAB #### [facility] [address] [address] [address] Venkat Sloan Glucose [Mass/Vol] 92 mg/dL Normal 74-106 [facility] Comment on above: Performed By: #### I NFLUAB #### [facility] [address] [address] [address] Venkat Sloan Potassium [Moles/Vol] 4.4 mmol/L Normal 3.5-5.1 [facility] Comment on above: Performed By: #### I NFLUAB #### [facility] [address] [address] [address] Venkat Sloan Protein [Mass/Vol] 7.2 g/dL Normal 6.4-8.2 [facility] Comment on above: Performed By: #### I NFLUAB #### [facility] [address] [address] [address] Venkat Sloan Sodium [Moles/Vol] 139 mmol/L Normal 136-145 [facility] Comment on above: Performed By: #### I NFLUAB #### [facility] [address] [address] [address] Venkat Sloan Urea nitrogen [Mass/Vol] 13.0 mg/dL Normal 7.0-18.0 [facility] Comment on above: Performed By: #### I NFLUAB #### [facility] [address] [address] [address] Venkat Sloan Urea nitrogen/Creatinine [Mass ratio] 18.6 mg/mg Normal [facility] Comment on above: Performed By: #### I NFLUAB #### [facility] [address] [address] [address] Venkat Sloan TSHon 09-26-2021 TSH 1.318 uIU/mL Normal 0.358-3.740 [facility] Comment on above: Performed By: #### P REGQNT #### [facility] [address] [address] [address] Venkat Sloan URIC ACID SERUMon 09-26-2021 Urate [Mass/Vol] 3.9 mg/dL Normal 2.6-6.0 [facility] Comment on above: Performed By: #### P REGQNT #### [facility] [address] [address] [address] Venkat Sloan XR CSPINE MIN 4 [...] DUDLEY HERNÁNDEZ Date: 2021-09-24 21:16 Normal [facility] PREG QUANT HCGon 08-17-2021 HCG QUANT <1 Normal [facility] Comment on above: Performed By: #### I NFLUAB #### [facility] [address] [place] [address] Dr. Venkat Sloan HCG RANGE SEE BELOW Normal [facility] Comment on above: Result Comment: 5-50 0-1 WEEK 40-300 1-2 WEEKS 100-1,000 2-3 WEEKS 500-6,000 3-4 WEEKS 5,000-200,000 1-2 MONTHS 10,000-100,000 2-3 MONTHS 3,000-50,000 2ND TRIMESTER 1,000-50,000 3RD TRIMESTER Performed By: #### I NFLUAB #### [facility] [address] [place] [address] Dr. Venkat Sloan US PELVIS AND TRANSVAGon [...] DUDLEY HERNÁNDEZ Date: 2021-08-17 07:01 Normal [facility] COVID Quick Testingon 2020 Result Negative [facility] Other Vital Signs Date Time Vital Sign Value Performing Clinician Facility 05-22-2023 09:270500 Body height 154.94 cm [facility] 05-22-2023 09:27-0500 Body mass index (BMI) [Ratio] 30.8 kg/m2 [facility] 05-22-2023 09:27-0500 Body temperature 98.1 [degF] [facility] 05-22-2023 09:27-0500 Body weight 74.04 kg [facility] 05-22-2023 09:27-0500 Heart rate 78 /min [facility] 05-22-2023 09:27-0500 Respiratory rate 16 /min [facility] 05-22-2023 09:27-0500 SaO2% (BldA) [Mass fraction] 98 % [facility] 05-10-2023 15:14-0500 Body mass index (BMI) [Ratio] 30.04 kg/m2 Ricardo Jennifer DO Work Phone: [facility] 05-10-2023 15:14-0500 Body weight 72.12 kg Ricardo Jennifer DO Work Phone: [facility] 05-10-2023 15:14-0500 Diastolic blood pressure 70 mm[Hg] Ricardo Jennifer DO Work Phone: [facility] 05-10-2023 15:14-0500 Systolic blood pressure 110 mm[Hg] Ricardo Jennifer DO Work Phone: [facility] 01-27-2021 18:45-0400 Body height 154.94 cm Mohini Juan Other [facility] 01-27-2021 18:45-0400 Body mass index (BMI) [Ratio] 28.34 kg/m2 Mohini Juan Other [facility] 01-27-2021 18:45-0400 Body temperature 96.4 [degF] Mohini Juan Other [facility] Other 01-27-2021 18:45-0400 Body weight 68.04 kg Mohini Juan Other [facility] Other 01-27-2021 18:45-0400 Respiratory rate 18 /min Mohini Juan Other [facility] Other 01-27-2021 18:45-0400 SaO2% (BldA) [Mass fraction] 99 % Mohini Martinez Other [facility] Other 12-22-2020 11:45-0400 Body height 154.94 cm Dudley Freeman Other [facility] Other 12-22-2020 11:45-0400 Body mass index (BMI) [Ratio] 28.34 kg/m2 Dudley Freeman Other [facility] Other 12-22-2020 11:45-0400 Body weight 68.04 kg Dudley Freeman Other [facility] Other Encounters Encounter Date Encounter Type Care Provider Facility Start: 06-13-2023 End: 06-13-2023 ambulatory RICARDO JENNIFER Not Available Start: 05-26-2023 End: 05-26-2023 ambulatory RICARDO JENNIFER Not Available Start: 05-22-2023 End: 05-22-2023 ambulatory [facility] Work Phone: Start: 05-22-2023 End: 05-22-2023 Patient encounter procedure [facility] Work Phone: Start: 05-10-2023 [...] preprocedural examination DR RICARDO RODRIGUEZ . [facility] Start: 07-08-2022 End: 07-08-[address] RICARDO [...] abnormal findings DR IRON GARCIA . [facility] Start: 09-26-2021 End: 09-27-[address] IRON [...] 01-27-2021 End: 01-27-2021 ambulatory Mohini Martinez Other [facility] Other Start: 01-27-2021 Office outpatient vi sit [...] Routine [facility] [address] [place] [id number] Ricardo Rodriguez DO [address] [place] [address] [facility] Start: 05-10-2023 End: 05-10-2024 CBC panel - Blood by Automated count CBC Lab Routine Diabetes mellitus screening Expected: 05/10/2023 (Approximate), Expires: 05/10/2024 [facility] Work Phone: Comment on above: Expected: 05/10/2023 (Approximate), Expires: 05/10/2024 Start: 05-10-2023 End: 05-10-2024 Measurement of glucose 1 hour after glucose challenge for glucose tolerance test Glucose tolerance, 1 hour Lab Routine Diabetes mellitus screening Expected: 05/10/2023 (Approximate), Expires: 05/10/2024 [facility] Comment on above: Expected: 05/10/2023 (Approximate), Expires: 05/10/2024 Start: 11-26-2022 Influenza vaccination Influenz a Vaccine (#1) [facility] Immunizations Immunization Date Immunization Notes Care Provider Fa tammy 01-25-2022 influenza virus vacc ine, unspecified formulation Ricardo Rodriguez DO Work Phone: [facility] Payers Date Payer Category Payer Unknown BCBS BCBS xxxxxx [id number] 2022-Present [phone] [address] [place] [address] [id number] 1993 Unknown [id number] 2.16.840.1.655438.3.579.2.593 1993 Unknown [id number] 2.16.840.1.237222.3.579.2.59 1993 Unknown [id number] 2.16.840.1.485613.3.579.2.59 1993 Unknown [id number] 2.16.840.1.603328.3.579.2.59 1993 Unknown [id number] 2.16.840.1.875607.3.579.2.593 1993 Unknown [id number] 2.16.840.1.225808.3.579.2.593 1993 Unknown [id number] 2.16.840.1.712686.3.579.2.593 1993 Unknown [id number] 2.16.840.1.240283.3.579.2.593 1993 Unknown [id number] 2.16.840.1.171041.3.579.2.593 1993 Unknown [id number] 2.16.840.1.044529.3.579.2.593 1993 Unknown [id number] 2.16.840.1.803067.3.579.2.593 1993 Unknown [id number] 2.16.840.1.078779.3.579.2.593 1993 Unknown [id number] 2.16.840.1.164298.3.579.2.59 1993 Unknown [id number] 2.16.840.1.280441.3.579.2.593 1993 Unknown [id number] 2.16.840.1.180852.3.579.2.59 1993 Unknown [id number] 2.16.840.1.278747.3.579.2.593 1993 Unknown [id number] 2.16.840.1.594915.3.579.2.59 1993 Unknown [id number] 2.16.840.1.093920.3.579.2.59 1993 Unknown [id number] 2.16.840.1.122694.3.579.2.59 1993 Unknown [id number] 2.16.840.1.897242.3.579.2.59 1993 Unknown [id number] 2.16.840.1.383706.3.579.2.593 1993 Unknown [id number] 2.16.840.1.845231.3.579.2.593 1993 Unknown [id number] 2.16.840.1.769387.3.579.2.593 1993 Unknown [id number] 2.16.840.1.337745.3.579.2.593 1993 Unknown [id number] 2.16.840.1.921141.3.579.2.593 1993 Unknown [id number] 2.16.840.1.170831.3.579.2.1259 1993 Unknown [id number] 2.16.840.1.846589.3.579.2.1259 1993 Unknown [id number] 2.16.840.1.276784.3.579.2.1259 1993 Unknown [id number] 2.16.840.1.756684.3.579.2.1259 1993 Unknown [id number] 2.16.840.1.657139.3.579.2.1259 1993 Unknown [id number] 2.16.840.1.637020.3.579.2.1259 1959 Unknown [id number] 1959 Unknown [id number] Self-pay Self Pay [id number] Unknown [id number] 2.16. 840.1.524150.[address] [facility] [id number] Unknown [place] BC/BS [id number] Social History Date Type Detail Facility Unknown if ever smoked [facility] Other Start: 01-28-2023 Sex Assigned At [facility] Other Start: 01-28-2023 End: 05-22-2023 Tobacco smoking [...] of Present illness Narrative 05-10-2023 Melissa Thornton, MOLECULAR SPECTROSCOPIST - 05/10/2023 2:50 PM EST Note Date [...] nursing note reviewed. Exam conducted with a manager asset present. Vitals: Estimated body mass index is [...] Ricardo Rodriguez DO documented in this encounter [facility] Clinical Note 07-08-2022 Note Date & Type Note Facility 07-08-2022 Note OPERATIVE NOTE OPERATION DATE: 07/08/2022 PROCEDURE: Diagnostic laparoscopy with fulguration of ovarian endometrial implant. PREOPERATIVE DIAGNOSIS: Pelvic pain. POSTOPERATIVE DIAGNOSIS: Pelvic pain. ANESTHESIA: General. SURGEON: Ricardo Rodriguez D.O. RESEARCH TEST ENGINE OPERATOR: DEVIN Miles URINE OUTPUT: Yellow and [...] to Recovery Room in stable condition. [facility] Evaluation note 12-22-2020 Note Date & Type Note Facility 12-22-2020 Evaluation note Encounter Date Diagnosis Assessment Notes Nov, Irritable bowel syndrome with both constipation and diarrhea (ICD-10 - K58.2) LABS INDICATED ABOVE START TRIAL OF DICYCLOMINE 20 BID RTO 4 WEEKS [facility] Other Evaluation note Note Date & Type Note Facility Evaluation note [facility] [employer] Other Evaluation note Note Date & Type Note Facility Evaluation note Diagnosis Second trimester state, incidental Diabetes mellitus screening Screening for diabetes mellitus documented in this encounter [facility] Evaluation note Note Date & Type Note Facility Evaluation note No assessment information availa [facility] Work Phone: History general Narrative - Reported Note Date & Type Note Facility History general Narrative - Reported Type Medical History anxiety/depression Medical History IBS Surgical History TONSILLECTOMY [employer] [facility] Other History general Narrative - Reported Note Date & Type Note Facility History general Narrative - Reported [employer] [facility] Other Summary Purpose Family History No Family [...] and content) DATE CREATED AUTHOR 07/13/2022 [facility] p[facility] DATE CREATED AUTHOR AUTHOR'S ORGANIZ ATION 06/14/2023 [facility] [employer] Care Teams (unrecognized sec tion and content) Planner Chief Relationship Specialty Start Date End Date Iron Garcia MD [address] [place] [id number] PCP - General Family Medicine 11/23/22 Team Status: Active Member Role Status Dates Iorn Garcia MD Primary Care Provider Active Team [...] BE BASED ON THE PRIMARY CLINICAL RECORDS. [facility]. provides no warranty or guarantee of the accuracy or completeness of information in this document.
[2023-06-30 19:10] VITALS: BP 123/74; PULSE 98
== END 2023-06-30 19:40 | disposition home or self-care (01) ==
LOC: FBCO 07:10 → FBC 19:05
PROVIDERS: PCP Family Medicine; Visit Provider Obstetrics & Gynecology
DX: O40.9XX0 Polyhydramnios, unspecified trimester, not applicable or unspecified (principal)
CPT/HCPCS: 59025

== ENCOUNTER 2023-07-06 07:41 | Outpatient (OUT) | payer BC, SELFPAY ==
--- OUTSIDE RECORDS SUMMARY | 2023-07-06 07:53 | XMS_ITS | CCD ---
Author Organization [facility] Care Team Providers Care Land Agent Name Role Phone Lydia Dudley Unavailable Mohini Martinez Unavailable JENNIFER ., DR SILVA Admitting Unavailable JENNIFER ., DR SILVA Attending Unavailable HOY ., DR PERDUE Primary Care Unavailable EDGAR, DR DUDLEY Emanuel Consulting Unavailable JENNIFER ., DR SILAV Consulting Unavailable JAMIL REEVES Admitting Unavailable JAMIL REEVES Attending Unavailable HOY ., DR PERDUE Primary Care Unavailable HOY ., DR PERDUE Consulting Unavailable DUDLEY LANE Consulting Unavailable HOY ., DR PERDUE Admitting Unavailable HOY ., DR PERDUE Attending Unavailable HOY ., DR PERDUE Primary Care Unavailable HOY ., DR PERDUE Consulting Unavailable NEMAHA, DR DUDLEY Emanuel Consulting Unavailable JENNIFER ., [...] Lam Vela Consulting Unavailable JENNIFER ., DR SILAV Admitting Unavailable JENNIFER ., DR SILVA Attending [...] HOY ., DR PERDUE Primary Care Unavailable Iron Garcia MD Primary Care Provider [phone] RICARDO RODRIGUEZ Attending Unavailable JENNIFER, RICARDO Attending Unavailable JENNIFER, RICARDO Attending Unavailable JENNIFER, RICARDO Attending Unavailable JENNIFER, RICARDO Attending Unavailable JENNIFER, RICARDO Attending Unavailable JENNIFER, RICARDO Attending Unavailable Medications Current Medications Medication Drug Class(es) Dates Sig (Normalized) Sig (Original) [id number] 200 actuat albuterol 0.09 mg/actuat metered dose [...] DAILY NEEDED FOR NAUSEA 0 02/19/2023 Active Secdth30-Cpev Fum-Folic Ac-Om3 (One A Day Women's Dha) 28 mg iron- 800 mcg combo pack (1 source) Start: 05-22-2023 Oahrrw69-Vfrz Fum-Folic Ac-Om3 (One A Day Women's Dha) [...] SARS-CoV-2 (COVID-19) RNA SHIRIN+probe Ql (Unsp spec) [facility] Urinalysis macro (dipstick) panel (U)on 05-10-2023 Bilirubin, UA Negative Negative - 4(70) +++ mg/dL [facility] Blood, UA Negative Negative - 50 Jayson/mcL [facility] Clarity, UA Clear [facility] Color, UA Yellow [facility] Glucose, UA Negative Negative - 1999(110) ++++ mg/dL [facility] Interpretation and review of laboratory results Abnormal [facility] Ketones, UA Positive Negative - 160(16) ++++ mg/dL [facility] Comment on above: trace Leukocytes, UA Trace Negative - 500+++ Lolita/mcL [facility] Nitrite, UA Negative Negative - Positive [facility] pH, UA 6.0 5 - 9 [facility] Protein, UA Negative Negative - 1999(20) ++++ mg/dL [facility] Spec Grav, UA 1.030 1 - 1.03 [facility] Urobilinogen, UA 0.2 0.2 - 12 mg/dL [facility] CBC AUTO DIFFon 07-08-2022 BASO # 0.0 103/ul Normal 0.0-0.1 [facility] Comment on above: Performed By: #### R F #### [facility] [address] [address] [address] Venkat Sloan Basophils/100 WBC (Bld) 0.5 % Normal 0.2-2.0 [facility] Comment on above: Performed By: #### R F #### [facility] [address] [place] [address] Dr. Venkat Sloan EO # 0.1 103/ul Normal 0.0-0.7 [facility] Comment on above: Performed By: #### R F #### [facility] [address] [place] [address] Dr. Venkat Sloan Eosinophils/100 WBC (Bld) 1.7 % Normal 0.9-7.0 [facility] Comment on above: Performed By: #### R F #### [facility] [address] [place] [address] Dr. Venkat Sloan Erythrocyte distribution width (RBC) [Ratio] 12.7 % Normal 11.0-15.0 [facility] Comment on above: Performed By: #### R F #### [facility] [address] [place] [address] Dr. Venkat Sloan Hematocrit (Bld) [Volume fraction] 40.4 % Normal 36.0-48.0 [facility] Comment on above: Performed By: #### R F #### [facility] [address] [place] [address] Dr. Venkat Sloan Hemoglobin (Bld) [Mass/Vol] 13.1 g/dL Normal 12.0-16.0 [facility] Comment on above: Performed By: #### R F #### [facility] [address] [place] [address] Dr. Venkat Sloan IG # 0.02 10e3/ul Normal 0.00-0.03 [facility] Comment on above: Performed By: #### R F #### [facility] [address] [place] [address] Dr. Venkat Sloan IG % 0.3 % Normal 0.0-0.5 [facility] Comment on above: Performed By: #### R F #### [facility] [address] [place] [address] Dr. Venkat Sloan LYMPH # 2.0 103/ul Normal 1.2-3.8 [facility] Comment on above: Performed By: #### R F #### [facility] [address] [place] [address] Dr. Venkat Sloan Lymphocytes/100 WBC (Bld) 26.2 % Normal 20.5-60.0 [facility] Comment on above: Performed By: #### R F #### [facility] [address] [place] [address] Dr. Venkat Sloan MANUAL DIFF REQ NO Normal [facility] Comment on above: Performed By: #### R F #### [facility] [address] [place] [address] Dr. Venkat Sloan MCH (RBC) [Entitic mass] 28.4 pg Normal 26.7-34.0 [facility] Comment on above: Performed By: #### R F #### [facility] [address] [place] [address] Dr. Venkat Sloan MCHC (RBC) [Mass/Vol] 32.4 g/dL Normal 29.9-35.2 [facility] Comment on above: Performed By: #### R F #### [facility] [address] [place] [address] Dr. Venkat Sloan MCV (RBC) [Entitic vol] 87.4 fL Normal 81.0-99.0 [facility] Comment on above: Performed By: #### R F #### [facility] [address] [place] [address] Dr. Venkat Sloan MONO # 0.7 103/ul Normal 0.3-0.8 [facility] Comment on above: Performed By: #### R F #### [facility] [address] [place] [address] Dr. Venkat Sloan Monocytes/100 WBC (Bld) 8.8 % Normal 1.7-12.0 [facility] Comment on above: Performed By: #### R F #### [facility] [address] [place] [address] Dr. Venkat Sloan NEUT # 4.8 103/ul Normal 1.4-6.5 [facility] Comment on above: Performed By: #### R F #### [facility] [address] [place] [address] Dr. Venkat Sloan Neutrophils/100 WBC (Bld) 62.5 % Normal 43.0-75.0 [facility] Comment on above: Performed By: #### R F #### [facility] [address] [place] [address] Dr. Venkat Sloan Platelet mean volume (Bld) [Entitic vol] 8.5 fL Critically low 9.5-13.5 [facility] Comment on above: Performed By: #### R F #### [facility] [address] [place] [address] Dr. Venkat Sloan PLT 331 103/ul Normal 150-450 [facility] Comment on above: Performed By: #### R F #### [facility] [address] [place] [address] Dr. Venkat Sloan RBC 4.62 106/ul Normal 4.20-5.40 [facility] Comment on above: Performed By: #### R F #### [facility] [address] [place] [address] Dr. Venkat Sloan WBC 7.7 103/ul Normal 4.0-11.0 [facility] Comment on above: Performed By: #### R F #### [facility] [address] [place] [address] Dr. Venkat Sloan PREG QUANT HCGon 07-08-2022 HCG QUANT <1 Normal [facility] Comment on above: Performed By: #### P REGQNT #### [facility] [address] [place] [address] Dr. Venkat Sloan HCG RANGE SEE BELOW Normal [facility] Comment on above: Result Comment: 5-50 0.2-1 WEEK 50-500 1-2 WEEKS 100-5,000 2-3 WEEKS 500-10,000 3-4 WEEKS 1,000-50,000 4-5 WEEKS 10,000-100,000 5-6 WEEKS 15,000-200,000 6-8 WEEKS 10,000-100,000 2-3 MONTHS Performed By: #### P REGQNT #### [facility] [address] [place] [address] Dr. Venkat Sloan PROGESTERONEon 06-23-2022 Progesterone 5.7 ng/mL Normal [facility] Comment on above: Result Comment: Foll icular phase 0.1 - 0.9 Luteal phase 1.8 - 23.9 Ovulation phase 0.1 - 12.0 First trimester 11.0 - 44.3 Second trimester 25.4 - 83.3 Third trimester 58.7 - 214.0 Postmenopausal 0.0 - 0.1 Performed By: #### T SH #### [facility] [address] [place] [address] Dr. Venkat Sloan PREG QUANT HCGon 05-31-2022 HCG QUANT 1 mIU/mL Normal [facility] Comment on above: Performed By: #### P REGQNT #### [facility] [address] [place] [address] Dr. Venkat Sloan HCG RANGE SEE BELOW Normal [facility] Comment on above: Result Comment: 5-50 0.2-1 WEEK 50-500 1-2 WEEKS 100-5,000 2-3 WEEKS 500-10,000 3-4 WEEKS 1,000-50,000 4-5 WEEKS 10,000-100,000 5-6 WEEKS 15,000-200,000 6-8 WEEKS 10,000-100,000 2-3 MONTHS Performed By: #### P REGQNT #### [facility] [address] [place] [address] Dr. Venkat Sloan PROGESTERONEon 05-21-2022 Progesterone 12.4 ng/mL Normal [facility] Comment on above: Result Comment: Foll icular phase 0.1 - 0.9 Luteal phase 1.8 - 23.9 Ovulation phase 0.1 - 12.0 First trimester 11.0 - 44.3 Second trimester 25.4 - 83.3 Third trimester 58.7 - 214.0 Postmenopausal 0.0 - 0.1 Performed By: #### I NFLUAB #### [facility] [address] [place] [address] Dr. Venkat Sloan MRI BRAIN WO W [...] LAM VELA Date: 2022-05-04 08:42 Normal [facility] PREG QUANT HCGon 05-04-2022 HCG QUANT <1 Normal [facility] Comment on above: Performed By: #### R F #### [facility] [address] [address] [address] Venkat Sloan HCG RANGE SEE BELOW Normal [facility] Comment on above: Result Comment: 5-50 0.2-1 WEEK 50-500 1-2 WEEKS 100-5,000 2-3 WEEKS 500-10,000 3-4 WEEKS 1,000-50,000 4-5 WEEKS 10,000-100,000 5-6 WEEKS 15,000-200,000 6-8 WEEKS 10,000-100,000 2-3 MONTHS Performed By: #### R F #### [facility] [address] [address] [address] Venkat Sloan XR HYSTEROSALPINGOGRAMon XR HYSTEROSALPINGOGRAM [...] LAM VELA Date: 2022-05-04 16:09 Normal [facility] PROGESTERONEon 04-24-2022 Progesterone 0.4 ng/mL Normal [facility] Comment on above: Result Comment: Foll icular phase 0.1 - 0.9 Luteal phase 1.8 - 23.9 Ovulation phase 0.1 - 12.0 First trimester 11.0 - 44.3 Second trimester 25.4 - 83.3 Third trimester 58.7 - 214.0 Postmenopausal 0.0 - 0.1 Performed By: #### I NFLUAB #### [facility] [address] [place] [address] Dr. Venkat Sloan CULTURE SPUTUMon 04-02-2022 CULTURE SPUTUM Culture Observations : NORMAL RESPIRATORY NATALEE. Normal [facility] Comment on above: Performed By: #### R F #### [facility] [address] [place] [address] Dr. Venkat Sloan SPUTUM GRAM STAINon 04-02-19 23 COMMENTS Normal [facility] Comment on above: Performed By: #### R F #### [facility] [address] [place] [address] Dr. Venkat Sloan DIPHTHEROIDS Normal [facility] Comment on above: Performed By: #### R F #### [facility] [address] [place] [address] Dr. Venkat Sloan EPITHELIALS <25 Normal [facility] Comment on above: Performed By: #### R F #### [facility] [address] [place] [address] Dr. Venkat Sloan FUNGAL ELEMENTS Normal The [facility] Comment on above: Performed By: #### R F #### [facility] [address] [place] [address] Dr. Venkat Sloan GRAM NEG BACILLI RARE Normal [facility] Comment on above: Performed By: #### R F #### [facility] [address] [place] [address] Dr. Venkat Sloan GRAM NEG DIPPLOCOCCI Normal [facility] Comment on above: Performed By: #### R F #### [facility] [address] [place] [address] Dr. Venkat Sloan GRAM POS BACILLI Normal [facility] Comment on above: Performed By: #### R F #### [facility] [address] [place] [address] Dr. Venkat Sloan GRAM POSITIVE COCCI RARE Normal [facility] Comment on above: Performed By: #### R F #### [facility] [address] [address] [address] Venkat Sloan WBC (Bld) [#/Vol] 10*3/uL Normal [facility] Comment on above: Performed By: #### R F #### [facility] [address] [place] [address] Dr. Venkat Sloan Covid-19 PCR (CVDTB)on SARS-CoV-2 (COVID-19) RNA SHIRIN+probe Ql (Unsp spec) Not detected Normal NOT DETECTED [facility] Comment on above: Result Comment: This test is not yet approved or cleared by the [place] FDA. When there are no FDA-approved or cleared tests available, and other criteria are met, FDA can make tests available under an emergency access mechanism called an Emergency Use Authorization (EUA). The EUA for this test is supported by the [employer] of Health and Human Service's (HHS's) declaration [...] SARS-CoV-2. Performed By: #### P REGQNT #### [facility] [address] [place] [address] Dr. Venkat Sloan INFLUENZA A AND B AGon 04-01 [facility] SEE BELOW Normal [facility] Comment on above: Result Comment: Nega tive for Flu A protein angiten. Infection due to Flu A cannot be ruled out. Flu A angiten in the sample may be below the detection limit of the test. Performed By: #### I NFLUAB #### [facility] [address] [place] [address] Dr. Venkat Sloan [facility] Normal [facility] Comment on above: Result Comment: Nega tive for Flu B protein antigen. Infection due to Flu B cannot be ruled out. Flu B antigen in the sample may be below the detection limit of the test. Performed By: #### I NFLUAB #### [facility] [address] [place] [address] Dr. Venkat Sloan INFLUENZA A AG Negative Normal NEGATIVE SEE COMMENT [facility] Comment on above: Performed By: #### I NFLUAB #### [facility] [address] [place] [address] Dr. Venkat Sloan INFLUENZA B AG Negative Normal NEGATIVE SEE COMMENT [facility] Comment on above: Performed By: #### I NFLUAB #### [facility] [address] [place] [address] Dr. Venkat Sloan XR CHEST 2 Von [...] [address] Date: 2022-03-24 12:33 Normal [facility] SARS-CoV-2 (COVID-19) RNA SHIRIN+probe Ql (Unsp spec) Not detected Normal NOT DETECTED [facility] Comment on above: Result Comment: When [...] for this test is supported by the Pattern Cleaner of Health and Human Service's declaration that [...] used). Performed By: #### R F #### [facility] [address] [place] [address] Dr. Venkat Sloan INFLUENZA A AND B [facility] 03-15 [facility] SEE BELOW Normal [facility] Comment on above: Result Comment: Nega tive for Flu A protein angiten. Infection due to Flu A cannot be ruled out. Flu A angiten in the sample may be below the detection limit of the test. Performed By: #### I NFLUAB #### [facility] [address] [place] [address] Dr. Venkat Sloan [facility] SEE BELOW Normal [facility] Comment on above: Result Comment: Nega tive for Flu B protein antigen. Infection due to Flu B cannot be ruled out. Flu B antigen in the sample may be below the detection limit of the test. Performed By: #### I NFLUAB #### [facility] [address] [place] [address] Dr. Venkat Sloan INFLUENZA A AG Negative Normal NEGATIVE SEE COMMENT [facility] Comment on above: Performed By: #### I NFLUAB #### [facility] [address] [place] [address] Dr. Venkat Sloan INFLUENZA B AG Negative Normal NEGATIVE SEE COMMENT [facility] Comment on above: Performed By: #### I NFLUAB #### [facility] [address] [place] [address] Dr. Venkat Sloan INTERNAL CONTROLS Within Normal Limits Normal Wi thin Normal Limits [facility] Comment on above: Performed By: #### I NFLUAB #### [facility] [address] [address] [address] Venkat Sloan Covid-19 PCR ([facility])on 02-25 SARS-CoV-2 (COVID-19) RNA SHIRIN+probe Ql (Unsp spec) Not detected Normal NOT DETECTED [facility] Comment on above: Result Comment: When [...] for this test is supported by the [place] of Health and Human Service's declaration that [...] used). Performed By: #### I NFLUAB #### [facility] [address] [place] [address] Dr. Venkat Sloan INFLUENZA A AND B AGon 03-12 [facility] SEE BELOW Normal [facility] Comment on above: Result Comment: Nega tive for Flu A protein angiten. Infection due to Flu A cannot be ruled out. Flu A angiten in the sample may be below the detection limit of the test. Performed By: #### I NFLUAB #### [facility] [address] [address] [address] Venkat Sloan [facility] BELOW Normal [facility] Comment on above: Result Comment: Nega tive for Flu B protein antigen. Infection due to Flu B cannot be ruled out. Flu B antigen in the sample may be below the detection limit of the test. Performed By: #### I NFLUAB #### [facility] [address] [address] [address] Venkat Sloan INFLUENZA A AG Negative Normal NEGATIVE SEE COMMENT [facility] Comment on above: Performed By: #### I NFLUAB #### [facility] [address] [address] [address] Venkat Sloan INFLUENZA B AG Negative Normal NEGATIVE SEE COMMENT [facility] Comment on above: Performed By: #### I NFLUAB #### [facility] [address] [address] [address] Venkat Sloan INTERNAL CONTROLS Within Normal Limits Normal Wi thin Normal Limits [facility] Comment on above: Performed By: #### I NFLUAB #### [facility] [address] [address] [address] Venkat Sloan PROGESTERONEon 02-20-2022 Progesterone 0.3 ng/mL Normal [facility] Comment on above: Result Comment: Foll icular phase 0.1 - 0.9 Luteal phase 1.8 - 23.9 Ovulation phase 0.1 - 12.0 First trimester 11.0 - 44.3 Second trimester 25.4 - 83.3 Third trimester 58.7 - 214.0 Postmenopausal 0.0 - 0.1 Performed By: #### R F #### [facility] [address] [place] [address] Dr. Venkat Sloan ACTH STIMULATIONon 2 Andros Baseline 49 ng/dL Normal 41-262 The [facility] Comment on above: Performed By: #### R F #### [facility] [address] [place] [address] Dr. Venkat Sloan Andros Stimulated 82 ng/dL Normal Not Estab. [facility] Comment on above: Performed By: #### R F #### [facility] [address] [address] [address] Venkat Sloan Covid-19 PCR ([facility])on 01-26 SARS-CoV-2 (COVID-19) RNA SHIRIN+probe Ql (Unsp spec) Not detected Normal NOT DETECTED [facility] Comment on above: Result Comment: This test is not yet approved or cleared by the [place] FDA. When there are no FDA-approved or cleared tests available, and other criteria are met, FDA can make tests available under an emergency access mechanism called an Emergency Use Authorization (EUA). The EUA for this test is supported by the [employer] of Health and Human Service's (HHS's) declaration [...] SARS-CoV-2. Performed By: #### I NFLUAB #### [facility] [address] [place] [address] Dr. Venkat Sloan INFLUENZA A AND B [facility] 02-10 [facility] SEE BELOW Normal [facility] Comment on above: Result Comment: Nega tive for Flu A protein angiten. Infection due to Flu A cannot be ruled out. Flu A angiten in the sample may be below the detection limit of the test. Performed By: #### P REGQNT #### [facility] [address] [place] [address] Dr. Venkat [facility] Normal [facility] Comment on above: Result Comment: Nega tive for Flu B protein antigen. Infection due to Flu B cannot be ruled out. Flu B antigen in the sample may be below the detection limit of the test. Performed By: #### P REGQNT #### [facility] [address] [place] [address] Dr. Venkat Sloan INFLUENZA A AG Negative Normal NEGATIVE SEE COMMENT [facility] Comment on above: Performed By: #### P REGQNT #### [facility] [address] [place] [address] Dr. Venkat Sloan INFLUENZA B AG Negative Normal NEGATIVE SEE COMMENT [facility] Comment on above: Performed By: #### P REGQNT #### [facility] [address] [address] [address] Venkat Sloan INTERNAL CONTROLS Within Normal Limits Normal Wi thin Normal Limits [facility] Comment on above: Performed By: #### P REGQNT #### [facility] [address] [address] [address] Venkat Sloan DHEA SERUMon 01-19-2022 Dehydroepiandrosterone (DHEA) 82 ng/dL Normal 31-701 [facility] Comment on above: Result Comment: Age [...] [birth year] Performed By: #### T SH #### [facility] [address] [place] [address] Dr. Venkat Sloan DHEA-SULFATEon 01-14-2022 DHEA-Sulfate 34.0 ug/dL Critically low 84.8-378.0 [facility] Comment on above: Performed By: #### R F #### [facility] [address] [place] [address] Dr. Venkat Sloan FSHon 01-14-2022 FSH 2.2 mIU/mL Normal [facility] Comment on above: Result Comment: Adul t Female: Follicular phase 3.5 - 12.5 Ovulation phase 4.7 - 21.5 Luteal phase 1.7 - 7.7 Postmenopausal 25.8 - 134.8 Performed By: #### L BCFSH #### [facility] [address] [place] [address] Dr. Venkat Sloan LUTEINIZING HORMONE (LH)on 1 LH 5.1 mIU/mL Normal [facility] Comment on above: Result Comment: Adul t Female: Follicular phase 2.4 - 12.6 Ovulation phase 14.0 - 95.6 Luteal phase 1.0 - 11.4 Postmenopausal 7.7 - 58.5 Performed By: #### I NFLUAB #### [facility] [address] [place] [address] Dr. Venkat Sloan PROLACTINon 01-14-2022 Prolactin 8.0 ng/mL Normal 4.8-23.3 [facility] Comment on above: Performed By: #### P ROLAC #### [facility] [address] [place] [address] Dr. Venkat Sloan CBC AUTO DIFFon 01-13-2022 BASO # 0.0 103/ul Normal 0.0-0.1 [facility] Comment on above: Performed By: #### T SH #### [facility] [address] [place] [address] Dr. Venkat Sloan Basophils/100 WBC (Bld) 0.4 % Normal 0.2-2.0 [facility] Comment on above: Performed By: #### T SH #### [facility] [address] [place] [address] Dr. Venkat Sloan EO # 0.1 103/ul Normal 0.0-0.7 [facility] Comment on above: Performed By: #### T SH #### [facility] [address] [place] [address] Dr. Venkat Sloan Eosinophils/100 WBC (Bld) 1.2 % Normal 0.9-7.0 [facility] Comment on above: Performed By: #### T SH #### [facility] [address] [place] [address] Dr. Venkat Sloan Erythrocyte distribution width (RBC) [Ratio] 12.7 % Normal 11.0-15.0 [facility] Comment on above: Performed By: #### T SH #### [facility] [address] [place] [address] Dr. Venkat Sloan Hematocrit (Bld) [Volume fraction] 41.1 % Normal 36.0-48.0 [facility] Comment on above: Performed By: #### T SH #### [facility] [address] [place] [address] Dr. Venkat Sloan Hemoglobin (Bld) [Mass/Vol] 13.1 g/dL Normal 12.0-16.0 [facility] Comment on above: Performed By: #### T SH #### [facility] [address] [place] [address] Dr. Venkat Sloan IG # 0.03 10e3/ul Normal 0.00-0.03 [facility] Comment on above: Performed By: #### T SH #### [facility] [address] [place] [address] Dr. Venkat Sloan IG % 0.3 % Normal 0.0-0.5 [facility] Comment on above: Performed By: #### T SH #### [facility] [address] [place] [address] Dr. Venkat Sloan LYMPH # 1.6 103/ul Normal 1.2-3.8 [facility] Comment on above: Performed By: #### T SH #### [facility] [address] [place] [address] Dr. Venkat Sloan Lymphocytes/100 WBC (Bld) 15.0 % Critically low 20.5-60.0 [facility] Comment on above: Performed By: #### T SH #### [facility] [address] [place] [address] Dr. Venkat Sloan MANUAL DIFF REQ NO Normal [facility] Comment on above: Performed By: #### T SH #### [facility] [address] [place] [address] Dr. Venkat Sloan MCH (RBC) [Entitic mass] 28.5 pg Normal 26.7-34.0 [facility] Comment on above: Performed By: #### T SH #### [facility] [address] [place] [address] Dr. Venkat Sloan MCHC (RBC) [Mass/Vol] 31.9 g/dL Normal 29.9-35.2 [facility] Comment on above: Performed By: #### T SH #### [facility] [address] [place] [address] Dr. Venkat Sloan MCV (RBC) [Entitic vol] 89.3 fL Normal 81.0-99.0 [facility] Comment on above: Performed By: #### T SH #### [facility] [address] [place] [address] Dr. Venkat Sloan MONO # 0.9 103/ul Critically high 0.3-0.8 [facility] Comment on above: Performed By: #### T SH #### [facility] [address] [address] [address] Venkat Sloan Monocytes/100 WBC (Bld) 8.8 % Normal 1.7-12.0 [facility] Comment on above: Performed By: #### T SH #### [facility] [address] [address] [address] Venkat Sloan NEUT # 7.9 103/ul Critically high 1.4-6.5 [facility] Comment on above: Performed By: #### T SH #### [facility] [address] [address] [address] Venkat Sloan Neutrophils/100 WBC (Bld) 74.3 % Normal 43.0-75.0 [facility] Comment on above: Performed By: #### T SH #### [facility] [address] [place] [address] Dr. Venkat Sloan Platelet mean volume (Bld) [Entitic vol] 9.2 fL Critically low 9.5-13.5 [facility] Comment on above: Performed By: #### T SH #### [facility] [address] [place] [address] Dr. Venkat Sloan PLT 300 103/ul Normal 150-450 [facility] Comment on above: Performed By: #### T SH #### [facility] [address] [place] [address] Dr. Venkat Sloan RBC 4.60 106/ul Normal 4.20-5.40 [facility] Comment on above: Performed By: #### T SH #### [facility] [address] [place] [address] Dr. Venkat Sloan WBC 10.7 103/ul Normal 4.0-11.0 [facility] Comment on above: Performed By: #### T SH #### [facility] [address] [place] [address] Dr. Venkat Sloan GLYCOHEMOGLOBIN A1Con 2021 ADA RECOMMENDATION SEE BELOW Normal [facility] Comment on above: Result Comment: ADA RECOMMENDED LIMIT 4.0 - 6.0 ADA THERAPEUTIC TARGET < 7.0 ACTION SUGGESTED > 7.0 Performed By: #### P REGQNT #### [facility] [address] [place] [address] Dr. Venkat Sloan Glucose [Mass/Vol] 100 mg/dL Normal [facility] Comment on above: Performed By: #### P REGQNT #### [facility] [address] [place] [address] Dr. Venkat Sloan HbA1c (Bld) [Mass fraction] 5.1 % Normal 4.5-6.2 [facility] Comment on above: Performed By: #### P REGQNT #### [facility] [address] [place] [address] Dr. Venkat Sloan TSHon 01-13-2022 TSH 1.098 uIU/mL Normal 0.358-3.740 [facility] Comment on above: Performed By: #### T SH #### [facility] [address] [place] [address] Dr. Venkat Sloan [facility] SARS-CoV-2 (COVID-19) RNA SHIRIN+probe Ql (Unsp spec) Not detected Normal NOT DETECTED [facility] Comment on above: Result Comment: This test is not yet approved or cleared by the [place] FDA. When there are no FDA-approved or cleared tests available, and other criteria are met, FDA can make tests available under an emergency access mechanism called an Emergency Use Authorization (EUA). The EUA for this test is supported by the Pattern Cleaner of Health and Human Service's (HHS's) declaration [...] SARS-CoV-2. Performed By: #### I NFLUAB #### [facility] [address] [address] [address] Venkat Sloan PREG QUANT HCGon 12-24-2021 HCG QUANT <1 Normal [facility] Comment on above: Performed By: #### P REGQNT #### [facility] [address] [address] [address] Venkat Sloan HCG RANGE SEE BELOW Normal [facility] Comment on above: Result Comment: 5-50 0.2-1 WEEK 50-500 1-2 WEEKS 100-5,000 2-3 WEEKS 500-10,000 3-4 WEEKS 1,000-50,000 4-5 WEEKS 10,000-100,000 5-6 WEEKS 15,000-200,000 6-8 WEEKS 10,000-100,000 2-3 MONTHS Performed By: #### P REGQNT #### [facility] [address] [address] [address] Venkat Sloan HCG-BETA SUBUNIT QUANTon hCG,Beta Subunit,Qnt,Serum <1 Normal [facility] Comment on above: Result Comment: Fema le (Non-) 0 - 5 (Postmenopausal) 0 - 8 . Female () Weeks of Gestation 3 6 - 71 4 10 - 750 5 217 - 7138 6 158 - 46184 7 [phone] 8 [phone] 9 [phone] -[phone] 10 [phone] -[phone] 12 42423 -[phone] 14 84221 - 33010 15 57094 - 30022 16 5806 - 38014 17 [phone] - [phone] 18 [phone] - [phone] Aj ECLIA methodology Performed By: #### T SH #### [facility] [address] [place] [address] Dr. Venkat Sloan BRETT by IFAon 09-29-2021 Antinuclear Antibodies, IFA Negative Normal [facility] Comment on above: Result Comment: Nega tive <1:80 Borderline 1:80 Positive >1:80 ICAP nomenclature: AC-0 For more information about Hep-2 cell patterns use ANApatterns.org, the official website for the International Consensus on Antinuclear Antibody (BRETT) Patterns (ICAP). Performed By: #### A NAIFA #### [facility] [address] [place] [address] Dr. Venkat Sloan INSULINon 09-29-2021 Insulin 11.1 uIU/mL Normal 2.6-24.9 [facility] Comment on above: Performed By: #### T SH #### [facility] [address] [place] [address] Dr. Venkat Sloan ANTISTREPTOLYSIN O AB (ASO)o n 09-27-2021 Antistreptolysin O Ab <20.0 Normal 0.0-200.0 [facility] Comment on above: Performed By: #### P REGQNT #### [facility] [address] [place] [address] Dr. Venkat Sloan RHEUMATOID FACTORon 09-28-19 RA Latex Turbid. <10.0 Normal <14.0 [facility] Comment on above: Performed By: #### R F #### [facility] [address] [place] [address] Dr. Venkat Sloan CBC AUTO DIFFon 09-26-2021 BASO # 0.0 103/ul Normal 0.0-0.1 [facility] Comment on above: Performed By: #### T SH #### [facility] [address] [place] [address] Dr. Venkat Sloan Basophils/100 WBC (Bld) 0.3 % Normal 0.2-2.0 [facility] Comment on above: Performed By: #### T SH #### [facility] [address] [place] [address] Dr. Venkat Sloan EO # 0.1 103/ul Normal 0.0-0.7 [facility] Comment on above: Performed By: #### T SH #### [facility] [address] [place] [address] Dr. Venkat Sloan Eosinophils/100 WBC (Bld) 1.8 % Normal 0.9-7.0 [facility] Comment on above: Performed By: #### T SH #### [facility] [address] [place] [address] Dr. Venkat Sloan Erythrocyte distribution width (RBC) [Ratio] 12.9 % Normal 11.0-15.0 [facility] Comment on above: Performed By: #### T SH #### [facility] [address] [place] [address] Dr. Venkat Sloan Hematocrit (Bld) [Volume fraction] 39.8 % Normal 36.0-48.0 [facility] Comment on above: Performed By: #### T SH #### [facility] [address] [place] [address] Dr. Venkat Sloan Hemoglobin (Bld) [Mass/Vol] 12.7 g/dL Normal 12.0-16.0 [facility] Comment on above: Performed By: #### T SH #### [facility] [address] [place] [address] Dr. Venkat Sloan IG # 0.02 10e3/ul Normal 0.00-0.03 [facility] Comment on above: Performed By: #### T SH #### [facility] [address] [place] [address] Dr. Venkat Sloan IG % 0.3 % Normal 0.0-0.5 [facility] Comment on above: Performed By: #### T SH #### [facility] [address] [place] [address] Dr. Venkat Sloan LYMPH # 1.5 103/ul Normal 1.2-3.8 [facility] Comment on above: Performed By: #### T SH #### [facility] [address] [place] [address] Dr. Venkat Sloan Lymphocytes/100 WBC (Bld) 21.5 % Normal 20.5-60.0 [facility] Comment on above: Performed By: #### T SH #### [facility] [address] [place] [address] Dr. Venkat Sloan MANUAL DIFF REQ NO Normal [facility] Comment on above: Performed By: #### T SH #### [facility] [address] [place] [address] Dr. Venkat Sloan MCH (RBC) [Entitic mass] 28.5 pg Normal 26.7-34.0 [facility] Comment on above: Performed By: #### T SH #### [facility] [address] [place] [address] Dr. Venkat Sloan MCHC (RBC) [Mass/Vol] 31.9 g/dL Normal 29.9-35.2 [facility] Comment on above: Performed By: #### T SH #### [facility] [address] [place] [address] Dr. Venkat Sloan MCV (RBC) [Entitic vol] 89.2 fL Normal 81.0-99.0 [facility] Comment on above: Performed By: #### T SH #### [facility] [address] [place] [address] Dr. Venkat Sloan MONO # 0.5 103/ul Normal 0.3-0.8 [facility] Comment on above: Performed By: #### T SH #### [facility] [address] [place] [address] Dr. Venkat Sloan Monocytes/100 WBC (Bld) 7.6 % Normal 1.7-12.0 [facility] Comment on above: Performed By: #### T SH #### [facility] [address] [place] [address] Dr. Venkat Sloan NEUT # 4.9 103/ul Normal 1.4-6.5 [facility] Comment on above: Performed By: #### T SH #### [facility] [address] [place] [address] Dr. Venkat Sloan Neutrophils/100 WBC (Bld) 68.5 % Normal 43.0-75.0 [facility] Comment on above: Performed By: #### T SH #### [facility] [address] [place] [address] Dr. Venkat Sloan Platelet mean volume (Bld) [Entitic vol] 8.8 fL Critically low 9.5-13.5 [facility] Comment on above: Performed By: #### T SH #### [facility] [address] [address] [address] Venkat Sloan PLT 297 103/ul Normal 150-450 [facility] Comment on above: Performed By: #### T SH #### [facility] [address] [place] [address] Dr. Venkat Sloan RBC 4.46 106/ul Normal 4.20-5.40 [facility] Comment on above: Performed By: #### T SH #### [facility] [address] [place] [address] Dr. Venkat Sloan WBC 7.1 103/ul Normal 4.0-11.0 [facility] Comment on above: Performed By: #### T SH #### [facility] [address] [place] [address] Dr. Venkat Sloan CRPon 09-26-2021 CRP [Mass/Vol] mg/L Normal <=1.0 [facility] Comment on above: Performed By: #### P REGQNT #### [facility] [address] [place] [address] Dr. Venkat Sloan FREE THYROXINE INDEX T7on FTI 2.71 Normal 1.30-4.50 [facility] Comment on above: Performed By: #### P REGQNT #### [facility] [address] [place] [address] Dr. Venkat Sloan T3U 33.0 % Normal 30.0-39.0 [facility] Comment on above: Performed By: #### P REGQNT #### [facility] [address] [place] [address] Dr. Venkat Sloan T4 [Mass/Vol] 8.20 ug/dL Normal 4.80-13.90 [facility] Comment on above: Performed By: #### P REGQNT #### [facility] [address] [place] [address] Dr. Venkat Sloan GLYCOHEMOGLOBIN A1Con 2021 ADA RECOMMENDATION SEE BELOW Normal [facility] Comment on above: Result Comment: ADA RECOMMENDED LIMIT 4.0 - 6.0 ADA THERAPEUTIC TARGET < 7.0 ACTION SUGGESTED > 7.0 Performed By: #### I NFLUAB #### [facility] [address] [address] [address] Venkat Sloan Glucose [Mass/Vol] 105 mg/dL Normal [facility] Comment on above: Performed By: #### I NFLUAB #### [facility] [address] [address] [address] Venkat Sloan HbA1c (Bld) [Mass fraction] 5.3 % Normal 4.5-6.2 [facility] Comment on above: Performed By: #### I NFLUAB #### [facility] [address] [place] [address] Dr. Venkat Sloan IRONon 09-26-2021 Iron [Mass/Vol] 49.0 ug/dL Critically low 50.0-170.0 [facility] Comment on above: Performed By: #### P REGQNT #### [facility] [address] [place] [address] Dr. Venkat Sloan LIPID PROFILEon 09-26-2021 CHOL-HDL RATIO NORM SEE BELOW Normal [facility] Comment on above: Result Comment: 3.3 - 4.4 LOW RISK 4.4 - 7.1 AVERAGE RISK 7.1 - 11.0 MODERATE RISK >11.0 HIGH RISK Performed By: #### P REGQNT #### [facility] [address] [place] [address] Dr. Venkat Sloan Cholesterol [Mass/Vol] 197 mg/dL Normal <=200 [facility] Comment on above: Performed By: #### P REGQNT #### [facility] [address] [place] [address] Dr. Venkat Sloan Cholesterol in HDL [Mass/Vol] 64 mg/dL Critically high 40-60 [facility] Comment on above: Performed By: #### P REGQNT #### [facility] [address] [place] [address] Dr. Venkat Sloan Cholesterol in LDL [Mass/Vol] 123.4 mg/dL Normal [facility] Comment on above: Performed By: #### P REGQNT #### [facility] [address] [address] [address] Venkat Sloan Cholesterol.total/Choles terol in HDL [Mass ratio] 3.1 {ratio} Normal [facility] Comment on above: Performed By: #### P REGQNT #### [facility] [address] [place] [address] Dr. Venkat Sloan HDL NORMAL > or = 60 mg/dl - LO W CARDIOVASCULAR RISK <40 mg/dl - HIGH CARDIOVASCULAR RISK Normal [facility] Comment on above: Performed By: #### P REGQNT #### [facility] [address] [place] [address] Dr. Venkat Sloan LDL CALC NORMAL SEE BELOW Normal [facility] Comment on above: Result Comment: <100 mg/dl OPTIMAL 100 - 129 mg/dl NEAR OR ABOVE OPTIMAL 130 - 159 mg/dl BORDERLINE HIGH 160 - 189 mg/dl HIGH >190 mg/dl VERY HIGH Performed By: #### P REGQNT #### [facility] [address] [place] [address] Dr. Venkat Sloan Triglyceride [Mass/Vol] 48 mg/dL Normal <=150 [facility] Comment on above: Performed By: #### P REGQNT #### [facility] [address] [place] [address] Dr. Venkat Sloan VLDL CALC 9.6 mg/dL Normal [facility] Comment on above: Performed By: #### P REGQNT #### [facility] [address] [place] [address] Dr. Venkat Sloan PROF 14(COMP METB)on 022 Albumin [Mass/Vol] 4.0 g/dL Normal 3.4-5.[address] [facility] Comment on above: Performed By: #### I NFLUAB #### [facility] [address] [place] [address] Dr. Venkat Sloan Albumin/Globulin [Mass ratio] 1.3 {ratio} Normal [facility] Comment on above: Performed By: #### I NFLUAB #### [facility] [address] [place] [address] Dr. Venkat Sloan ALP [Catalytic activity/Vol] 58 U/L Normal 46-116 [facility] Comment on above: Performed By: #### I NFLUAB #### [facility] [address] [address] [address] Venkat Sloan ALT [Catalytic activity/Vol] 20 U/L Normal 14-59 [facility] Comment on above: Performed By: #### I NFLUAB #### [facility] [address] [address] [address] Venkat Sloan Anion gap [Moles/Vol] 10.4 mmol/L Normal [facility] Comment on above: Performed By: #### I NFLUAB #### [facility] [address] [address] [address] Venkat Sloan AST [Catalytic activity/Vol] 11 U/L Critically low 15-37 [facility] Comment on above: Performed By: #### I NFLUAB #### [facility] [address] [place] [address] Dr. Venkat Sloan Bilirubin [Mass/Vol] 0.8 mg/dL Normal 0.2-1.0 [facility] Comment on above: Performed By: #### I NFLUAB #### [facility] [address] [place] [address] Dr. Venkat Sloan Calcium [Mass/Vol] 9.0 mg/dL Normal 8.5-10.[address] [facility] Comment on above: Performed By: #### I NFLUAB #### [facility] [address] [place] [address] Dr. Venkat Sloan Chloride [Moles/Vol] 106 mmol/L Normal 98-107 [facility] Comment on above: Performed By: #### I NFLUAB #### [facility] [address] [address] [address] Venkat Sloan CO2 [Moles/Vol] 27.0 mmol/L Normal 21.0-32.0 [facility] Comment on above: Performed By: #### I NFLUAB #### [facility] [address] [place] [address] Dr. Venkat Sloan Creatinine [Mass/Vol] 0.70 mg/dL Normal 0.55-1.02 [facility] Comment on above: Performed By: #### I NFLUAB #### [facility] [address] [address] [address] Venkat lSoan EGFR-AF LUXEMBOURGER >60 Normal >=60 [facility] Comment on above: Performed By: #### I NFLUAB #### [facility] [address] [address] [address] Venkat Sloan EGFR-NON AF LUXEMBOURGER >60 Normal >=60 [facility] Comment on above: Performed By: #### I NFLUAB #### [facility] [address] [address] [address] Venkat Sloan Globulin (S) [Mass/Vol] 3.2 g/dL Normal [facility] Comment on above: Performed By: #### I NFLUAB #### [facility] [address] [place] [address] Dr. Venkat Sloan Glucose [Mass/Vol] 92 mg/dL Normal 74-[address] [facility] Comment on above: Performed By: #### I NFLUAB #### [facility] [address] [address] [address] Venkat Sloan Potassium [Moles/Vol] 4.4 mmol/L Normal 3.5-5.1 [facility] Comment on above: Performed By: #### I NFLUAB #### [facility] [address] [address] [address] Venkat Sloan Protein [Mass/Vol] 7.2 g/dL Normal 6.4-8.[address] [facility] Comment on above: Performed By: #### I NFLUAB #### [facility] [address] [address] [address] Venkat Sloan Sodium [Moles/Vol] 139 mmol/L Normal 136-[address] [facility] Comment on above: Performed By: #### I NFLUAB #### [facility] [address] [address] [address] Venkat Sloan Urea nitrogen [Mass/Vol] 13.0 mg/dL Normal 7.0-18.0 [facility] Comment on above: Performed By: #### I NFLUAB #### [facility] [address] [place] [address] Dr. Venkat Sloan Urea nitrogen/Creatinine [Mass ratio] 18.6 mg/mg Normal [facility] Comment on above: Performed By: #### I NFLUAB #### [facility] [address] [place] [address] Dr. Venkat Sloan TSHon 09-26-2021 TSH 1.318 uIU/mL Normal 0.358-3.740 [facility] Comment on above: Performed By: #### P REGQNT #### [facility] [address] [place] [address] Dr. Venkat Sloan URIC ACID SERUMon 09-26-2021 Urate [Mass/Vol] 3.9 mg/dL Normal 2.6-6.0 [facility] Comment on above: Performed By: #### P REGQNT #### [facility] [address] [place] [address] Dr. Venkat Sloan XR CSPINE MIN 4 [...] DUDLEY HERNÁNDEZ Date: 2021-09-24 21:16 Normal [facility] PREG QUANT HCGon 08-17-2021 HCG QUANT <1 Normal [facility] Comment on above: Performed By: #### I NFLUAB #### [facility] [address] [place] [address] Dr. Venkat Sloan HCG RANGE SEE BELOW Normal [facility] Comment on above: Result Comment: 5-50 0-1 WEEK 40-300 1-2 WEEKS 100-1,000 2-3 WEEKS 500-6,000 3-4 WEEKS 5,000-200,000 1-2 MONTHS 10,000-100,000 2-3 MONTHS 3,000-50,000 2ND TRIMESTER 1,000-50,000 3RD TRIMESTER Performed By: #### I NFLUAB #### [facility] [address] [place] [address] Dr. Venkat Sloan US PELVIS AND TRANSVAGon [...] DUDLEY HERNÁNDEZ Date: 2021-08-17 07:01 Normal [facility] COVID Quick Testingon [address] [facility] Other Vital Signs Date Time Vital Sign Value Performing Clinician Facility 05-22-2023 09:270500 Body height 154.94 cm [facility] 05-22-2023 09:0500 Body mass index (BMI) [Ratio] 30.8 kg/m2 [facility] 05-22-2023 09:-050 Body temperature 98.1 [degF] [facility] 05-22-2023 09:0500 Body weight 74.04 kg [facility] 05-22-2023 09:27-0500 Heart rate 78 /min [facility] 05-22-2023 09:27-0500 Respiratory rate 16 /min [facility] 05-22-2023 09:27-0500 SaO2% (BldA) [Mass fraction] 98 % [facility] 05-10-2023 15:14-0500 Body mass index (BMI) [Ratio] 30.04 kg/m2 Ricardo Jennifer DO Work Phone: [facility] 05-10-2023 15:14-0500 Body weight 72.12 kg Ricardo Jennifer DO Work Phone: [facility] 05-10-2023 15:14-0500 Diastolic blood pressure 70 mm[Hg] Ricardo Jennifer DO Work Phone: [facility] 05-10-2023 15:14-0500 Systolic blood pressure 110 mm[Hg] Ricardo Jennifer DO Work Phone: [facility] 01-27-2021 18:45-0400 Body height 154.94 cm Mohini Juan Other [facility] Other 01-27-2021 18:45-0400 Body mass index (BMI) [Ratio] 28.34 kg/m2 Mohini Juan Other [facility] Other 01-27-2021 18:45-0400 Body temperature 96.4 [degF] Mohini Juan Other [facility] Other 01-27-2021 18:45-0400 Body weight 68.04 kg Mohini Juan Other [facility] Other 01-27-2021 18:45-0400 Respiratory rate 18 /min Mohini Juan Other [facility] Other 01-27-2021 18:45-0400 SaO2% (BldA) [Mass fraction] 99 % Mohini Martinez Other [facility] Other 12-22-2020 11:45-0400 Body height 154.94 cm Dudley Freeman Other [facility] Other 12-22-2020 11:45-0400 Body mass index (BMI) [Ratio] 28.34 kg/m2 Dudley Freeman Other [facility] Other 12-22-2020 11:45-0400 Body weight 68.04 kg Dudley Freeman Other [facility] Other Encounters Encounter Date Encounter Type Care Provider Facility Start: 06-30-2023 End: 06-30-2023 ambulatory RICARDO JENNIFER Not Available Start: 06-13-2023 End: 06-13-2023 ambulatory RICARDO JENNIFER Not Available Start: 05-26-2023 End: 05-26-2023 ambulatory RICARDO JENNIFER Not Available Start: 05-22-2023 End: 05-22-2023 ambulatory [facility] Work Phone: Start: 05-22-2023 End: 05-22-2023 Patient encounter procedure [facility] Work Phone: Start: [...] preprocedural examination DR RICARDO RODRIGUEZ . [facility] Start: 07-08-2022 End: 07-08-[address] [...] without abnormal findings DR IRON GARCIA . [facility] Start: 09-26-2021 End: 09-27-[address] [...] 01-27-2021 End: 01-27-2021 ambulatory Mohini Martinez Other [facility] [address] [employer] Other Start: 01-27-2021 Office outpatient vi sit [...] AM EST Routine [facility] [address] [place] [id number] Ricardo Rodriguez, DO [address] [place] [address] [facility] Start: 05-10-2023 End: 05-10-2024 CBC panel - Blood by Automated count CBC Lab Routine Diabetes mellitus screening Expected: 05/10/2023 (Approximate), Expires: 05/10/2024 [facility] Work Phone: Comment on above: Expected: 05/10/2023 (Approximate), Expires: 05/10/2024 Start: 05-10-2023 End: 05-10-2024 Measurement of glucose 1 hour after glucose challenge for glucose tolerance test Glucose tolerance, 1 hour Lab Routine Diabetes mellitus screening Expected: 05/10/2023 (Approximate), Expires: 05/10/2024 [facility] Comment on above: Expected: 05/10/2023 (Approximate), Expires: 05/10/2024 Start: 11-26-2022 Influenza vaccination Influenz a Vaccine (#1) [facility] Immunizations Immunization Date Immunization Notes Care Provider Fa tian 01-25-2022 influenza virus vacc ine, unspecified formulation Ricardo Jennifer DO Work Phone: [facility] Payers Date Payer Category Payer Unknown BCBS BCBS xxxxxx [id number] 2022-Present [phone] [address] [place] [address] [id number] 1993 Unknown [id number] 2.16.840.1.819562.3.579.2.59 1993 Unknown [id number] 2.16.840.1.760100.3.579.2.59 1993 Unknown [id number] 2.16.840.1.992887.3.579.2.593 1993 Unknown [id number] 2.16.840.1.058191.3.579.2.593 1993 Unknown [id number] 2.16.840.1.151104.3.579.2.593 1993 Unknown [id number] 2.16.840.1.454958.3.579.2.593 1993 Unknown [id number] 2.16.840.1.505970.3.579.2.593 1993 Unknown [id number] 2.16.840.1.977587.3.579.2.593 1993 Unknown [id number] 2.16.840.1.323855.3.579.2.593 1993 Unknown [id number] 2.16.840.1.561859.3.579.2.593 1993 Unknown [id number] 2.16.840.1.320675.3.579.2.593 1993 Unknown [id number] 2.16.840.1.089431.3.579.2.59 1993 Unknown [id number] 2.16.840.1.039925.3.579.2.593 1993 Unknown [id number] 2.16.840.1.203706.3.579.2.59 1993 Unknown [id number] 2.16.840.1.532338.3.579.2.593 1993 Unknown [id number] 2.16.840.1.952076.3.579.2.59 1993 Unknown [id number] 2.16.840.1.881054.3.579.2.59 1993 Unknown [id number] 2.16.840.1.845855.3.579.2.593 1993 Unknown [id number] 2.16.840.1.089967.3.579.2.59 1993 Unknown [id number] 2.16.840.1.226315.3.579.2.593 1993 Unknown [id number] 2.16.840.1.020017.3.579.2.593 1993 Unknown [id number] 2.16.840.1.890048.3.579.2.593 1993 Unknown [id number] 2.16.840.1.227468.3.579.2.593 1993 Unknown [id number] 2.16.840.1.446448.3.579.2.593 1993 Unknown [id number] 2.16.840.1.810407.3.579.2.593 1993 Unknown [id number] 2.16.840.1.901167.3.579.2.1259 1993 Unknown [id number] 2.16.840.1.716327.3.579.2.1259 1993 Unknown [id number] 2.16.840.1.582670.3.579.2.1259 1993 Unknown [id number] 2.16.840.1.705839.3.579.2.1259 1993 Unknown [id number] 2.16.840.1.863423.3.579.2.1259 1993 Unknown [id number] 2.16.840.1.958820.3.579.2.1259 1993 Unknown [id number] 2.16.840.1.171388.3.579.2.1259 1959 Unknown [id number] 1959 Unknown [id number] Self-pay Self Pay [id number] Unknown [id number] 2.16. 840.1.390851.19 Unknown MMO [id number] Unknown [employer] BC/BS [id number] Social History Date Type Detail Facility Unknown if ever smoked [facility] [employer] Other Start: 01-28-2023 Sex Assigned At [facility] Other Start: 01-28-2023 End: 05-22-2023 Tobacco smoking status WIIS Never smoked tobacco [facility] Start: 05-10-2023 [...] History of Present illness Narrative 05-10-2023 Melissa ThorntonPARUL - 05/10/2023 2:50 PM EST Note Date [...] nursing note reviewed. Exam conducted with a gambling counsellor present. Vitals: Estimated body mass index is [...] Ricardo Rodriguez DO documented in this encounter [facility] Clinical Note 07-08-2022 Note Date & Type Note Facility 07-08-2022 Note OPERATIVE NOTE OPERATION DATE: 07/08/2022 PROCEDURE: Diagnostic laparoscopy with fulguration of ovarian endometrial implant. PREOPERATIVE DIAGNOSIS: Pelvic pain. POSTOPERATIVE DIAGNOSIS: Pelvic pain. ANESTHESIA: General. SURGEON: Ricardo Rodriguez D.O. BEADER TENDER: DEVIN Miles URINE OUTPUT: Yellow and clear. [...] to Recovery Room in stable condition. [facility] Evaluation note 12-22-2020 Note Date & Type Note Facility 12-22-2020 Evaluation note Encounter Date Diagnosis Assessment Notes Nov, Irritable bowel syndrome with both constipation and diarrhea (ICD-10 - K58.2) LABS INDICATED ABOVE START TRIAL OF DICYCLOMINE 20 BID RTO [address] [facility] Other Evaluation note Note Date & Type Note Facility Evaluation note [employer] Other Evaluation note Note Date & Type Note Facility Evaluation note Diagnosis Second trimester state, incidental Diabetes mellitus screening Screening for diabetes mellitus documented in this encounter [facility] Evaluation note Note Date & Type Note Facility Evaluation note No assessment information availa [facility] Work Phone: History general Narrative - Reported Note Date & Type Note Facility History general Narrative - Reported Type Medical History anxiety/depression Medical History IBS Surgical History TONSILLECTOMY [facility] Other History general Narrative - Reported Note Date & Type Note Facility History general Narrative - Reported [facility] Other Summary Purpose Family History No Family [...] and content) DATE CREATED AUTHOR 07/13/2022 [facility] DATE CREATED AUTHOR AUTHOR'S ORGANIZ ATION 07/01/2023 [facility] [employer] Care Teams (unrecognized sec tion and content) Land Agent Relationship Specialty Start Date End Date Iron Garcia MD [address] [place] [address] PCP - General Family Medicine 11/23/22 Team [...] BE BASED ON THE PRIMARY CLINICAL RECORDS. [facility]. provides no warranty or guarantee of the accuracy or completeness of information in this document.
--- NOTE | 2023-07-06 19:02 | US_ITS ---
[address] [address] Patient Name: ESTER BRADFORD MRN: [facility]:[id number] date: 1995 Sex: F Assigned Patient Location: [facility] Current Patient Location: Accession/Order Number: [id number] Exam Date: 07/06/2023 19:06 Report Date: 07/07/2023 08:02 At the request of: RICARDO LEGGETT Procedure: US OB BPP w non-stress EXAMINATION: US OB BPP w non-stress HISTORY: JOSESITO INCREASED O40.9XX0 COMPARISON: Ultrasound OB biophysical 06/27/2023 TECHNIQUE: Ultrasound biophysical profile was performed in the radiology department. BREATHING MOVEMENTS: 2.0 GROSS BODY MOVEMENTS: 2.0 TONE: 2.0 QUALITATIVE AMNIOTIC FLUID VOLUME: 2.0 PRESENTATION: CEPHALIC HEART RATE: 131.7 bpm bpm. AMNIOTIC FLUID VOLUME: 20.8 cm GESTATIONAL AGE: 33 weeks 5 days CONCLUSION: Total biophysical profile score 8.0. Electronically authenticated by: JUDITH MACHUCA Date: 07/07/2023 08:02
[2023-07-06 19:33] VITALS: BP 104/58; PULSE 72; TEMP 35.9
== END 2023-07-06 20:00 | disposition home or self-care (01) ==
LOC: US 18:56 → FBC 19:02
PROVIDERS: PCP Family Medicine; Visit Provider Obstetrics & Gynecology
DX: O40.9XX0 Polyhydramnios, unspecified trimester, not applicable or unspecified (principal); Z3A.33 33 weeks gestation of pregnancy
CPT/HCPCS: 76818

== ENCOUNTER 2023-07-07 14:47 | Outpatient (OUT) | payer BC, SELFPAY ==
--- OUTSIDE RECORDS SUMMARY | 2023-07-07 15:04 | XMS_ITS | CCD ---
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 Role Phone Lydia Dudley Unavailable Mohini [...] Unavailable HOY ., DR PERDUE Consulting Unavailable MCGREGOR, DR DUDLEY Emanuel Consulting Unavailable JENNIFER ., DR SILVA Admitting Unavailable JENNIFER ., DR SILVA Attending Unavailable HOY ., DR PERDUE Referring Unavailable HOY ., DR PERDUE Primary Care Unavailable JENNIFER ., DR SILVA Consulting Unavailable HOY ., DR PERDUE Admitting Unavailable HOY ., DR PERDUE Attending Unavailable HOY ., DR EPRDUE Consulting Unavailable HOY ., DR PERDUE Primary [...] Unavailable Iron Garcia MD Primary Care Provider [phone] RICARDO RODRIGUEZ Attending Unavailable JENNIFER, RICARDO Attending Unavailable JENNIFER, RICARDO Attending Unavailable JENNIFER, RICARDO Attending Unavailable JENNIFER, RICARDO Attending Unavailable JENNIFER, RICARDO Attending Unavailable JENNIFER, RICARDO Attending Unavailable Medications Current Medications Medication Drug Class(es) Dates Sig (Normalized) Sig (Original) [id number] 200 actuat albuterol 0.09 mg/actuat metered dose [...] DAILY NEEDED FOR NAUSEA 0 02/19/2023 Active Aagnhv24-Wtln Fum-Folic Ac-Om3 (One A Day Women's Dha) 28 mg iron- 800 mcg combo pack (1 source) Start: 05-22-2023 Ktlvdv58-Okpx Fum-Folic Ac-Om3 (One A Day Women's Dha) [...] SARS-CoV-2 (COVID-19) RNA SHIRIN+probe Ql (Unsp spec) [facility] Urinalysis macro (dipstick) panel (U)on 05-10-2023 Bilirubin, UA Negative Negative - 4(70) +++ mg/dL [facility] Blood, UA Negative Negative - 50 Jayson/mcL [facility] Clarity, UA Clear [facility] Color, UA Yellow [facility] Glucose, UA Negative Negative - 1999(110) ++++ mg/dL [facility] Interpretation and review of laboratory results Abnormal [facility] Ketones, UA Positive Negative - 160(16) ++++ mg/dL [facility] Comment on above: trace Leukocytes, UA Trace Negative - 500+++ Lolita/mcL [facility] Nitrite, UA Negative Negative - Positive [facility] pH, UA 6.0 5 - 9 [facility] Protein, UA Negative Negative - 1999(20) ++++ mg/dL [facility] Spec Grav, UA 1.030 1 - 1.03 [facility] Urobilinogen, UA 0.2 0.2 - 12 mg/dL [facility] CBC AUTO DIFFon 07-08-2022 BASO # 0.0 103/ul Normal 0.0-0.1 [facility] Comment on above: Performed By: #### R F #### [facility] [address] [address] [address] Venkat Sloan Basophils/100 WBC (Bld) 0.5 % Normal 0.2-2.0 [facility] Comment on above: Performed By: #### R F #### [facility] [address] [place] [address] Dr. Venkat Sloan EO # 0.1 103/ul Normal 0.0-0.7 [facility] Comment on above: Performed By: #### R F #### [facility] [address] [place] [address] Dr. Venkat Sloan Eosinophils/100 WBC (Bld) 1.7 % Normal 0.9-7.0 [facility] Comment on above: Performed By: #### R F #### [facility] [address] [place] [address] Dr. Venkat Sloan Erythrocyte distribution width (RBC) [Ratio] 12.7 % Normal 11.0-15.0 [facility] Comment on above: Performed By: #### R F #### [facility] [address] [place] [address] Dr. Venkat Sloan Hematocrit (Bld) [Volume fraction] 40.4 % Normal 36.0-48.0 [facility] Comment on above: Performed By: #### R F #### [facility] [address] [place] [address] Dr. Venkat Sloan Hemoglobin (Bld) [Mass/Vol] 13.1 g/dL Normal 12.0-16.0 [facility] Comment on above: Performed By: #### R F #### [facility] [address] [place] [address] Dr. Venkat Sloan IG # 0.02 10e3/ul Normal 0.00-0.03 [facility] Comment on above: Performed By: #### R F #### [facility] [address] [place] [address] Dr. Venkat Sloan IG % 0.3 % Normal 0.0-0.5 [facility] Comment on above: Performed By: #### R F #### [facility] [address] [place] [address] Dr. Venkat Sloan LYMPH # 2.0 103/ul Normal 1.2-3.8 [facility] Comment on above: Performed By: #### R F #### [facility] [address] [place] [address] Dr. Venkat Sloan Lymphocytes/100 WBC (Bld) 26.2 % Normal 20.5-60.0 [facility] Comment on above: Performed By: #### R F #### [facility] [address] [place] [address] Dr. Venkat Sloan MANUAL DIFF REQ NO Normal [facility] Comment on above: Performed By: #### R F #### [facility] [address] [place] [address] Dr. Venkat Sloan MCH (RBC) [Entitic mass] 28.4 pg Normal 26.7-34.0 [facility] Comment on above: Performed By: #### R F #### [facility] [address] [place] [address] Dr. Venkat Sloan MCHC (RBC) [Mass/Vol] 32.4 g/dL Normal 29.9-35.2 [facility] Comment on above: Performed By: #### R F #### [facility] [address] [place] [address] Dr. Venkat Sloan MCV (RBC) [Entitic vol] 87.4 fL Normal 81.0-99.0 [facility] Comment on above: Performed By: #### R F #### [facility] [address] [place] [address] Dr. Venkat Sloan MONO # 0.7 103/ul Normal 0.3-0.8 [facility] Comment on above: Performed By: #### R F #### [facility] [address] [place] [address] Dr. Venkat Sloan Monocytes/100 WBC (Bld) 8.8 % Normal 1.7-12.0 [facility] Comment on above: Performed By: #### R F #### [facility] [address] [place] [address] Dr. Venkat Sloan NEUT # 4.8 103/ul Normal 1.4-6.5 [facility] Comment on above: Performed By: #### R F #### [facility] [address] [place] [address] Dr. Venkat Sloan Neutrophils/100 WBC (Bld) 62.5 % Normal 43.0-75.0 [facility] Comment on above: Performed By: #### R F #### [facility] [address] [place] [address] Dr. Venkat Sloan Platelet mean volume (Bld) [Entitic vol] 8.5 fL Critically low 9.5-13.5 [facility] Comment on above: Performed By: #### R F #### [facility] [address] [place] [address] Dr. Venkat Sloan PLT 331 103/ul Normal 150-450 [facility] Comment on above: Performed By: #### R F #### [facility] [address] [place] [address] Dr. Venkat Sloan RBC 4.62 106/ul Normal 4.20-5.40 [facility] Comment on above: Performed By: #### R F #### [facility] [address] [place] [address] Dr. Venkat Sloan WBC 7.7 103/ul Normal 4.0-11.0 [facility] Comment on above: Performed By: #### R F #### [facility] [address] [place] [address] Dr. Venkat Sloan PREG QUANT HCGon 07-08-2022 HCG QUANT <1 Normal [facility] Comment on above: Performed By: #### P REGQNT #### [facility] [address] [place] [address] Dr. Venkat Sloan HCG RANGE SEE BELOW Normal [facility] Comment on above: Result Comment: 5-50 0.2-1 WEEK 50-500 1-2 WEEKS 100-5,000 2-3 WEEKS 500-10,000 3-4 WEEKS 1,000-50,000 4-5 WEEKS 10,000-100,000 5-6 WEEKS 15,000-200,000 6-8 WEEKS 10,000-100,000 2-3 MONTHS Performed By: #### P REGQNT #### [facility] [address] [place] [address] Dr. Venkat Sloan PROGESTERONEon 06-23-2022 Progesterone 5.7 ng/mL Normal [facility] Comment on above: Result Comment: Foll icular phase 0.1 - 0.9 Luteal phase 1.8 - 23.9 Ovulation phase 0.1 - 12.0 First trimester 11.0 - 44.3 Second trimester 25.4 - 83.3 Third trimester 58.7 - 214.0 Postmenopausal 0.0 - 0.1 Performed By: #### T SH #### [facility] [address] [place] [address] Dr. Venkat Sloan PREG QUANT HCGon 05-31-2022 HCG QUANT 1 mIU/mL Normal [facility] Comment on above: Performed By: #### P REGQNT #### [facility] [address] [place] [address] Dr. Venkat Sloan HCG RANGE SEE BELOW Normal [facility] Comment on above: Result Comment: 5-50 0.2-1 WEEK 50-500 1-2 WEEKS 100-5,000 2-3 WEEKS 500-10,000 3-4 WEEKS 1,000-50,000 4-5 WEEKS 10,000-100,000 5-6 WEEKS 15,000-200,000 6-8 WEEKS 10,000-100,000 2-3 MONTHS Performed By: #### P REGQNT #### [facility] [address] [place] [address] Dr. Venkat Sloan PROGESTERONEon 05-21-2022 Progesterone 12.4 ng/mL Normal [facility] Comment on above: Result Comment: Foll icular phase 0.1 - 0.9 Luteal phase 1.8 - 23.9 Ovulation phase 0.1 - 12.0 First trimester 11.0 - 44.3 Second trimester 25.4 - 83.3 Third trimester 58.7 - 214.0 Postmenopausal 0.0 - 0.1 Performed By: #### I NFLUAB #### [facility] [address] [place] [address] Dr. Venkat Sloan MRI BRAIN WO W [...] LAM VELA Date: 2022-05-04 08:42 Normal [facility] PREG QUANT HCGon 05-04-2022 HCG QUANT <1 Normal [facility] Comment on above: Performed By: #### R F #### [facility] [address] [address] [address] Venkat Sloan HCG RANGE SEE BELOW Normal [facility] Comment on above: Result Comment: 5-50 0.2-1 WEEK 50-500 1-2 WEEKS 100-5,000 2-3 WEEKS 500-10,000 3-4 WEEKS 1,000-50,000 4-5 WEEKS 10,000-100,000 5-6 WEEKS 15,000-200,000 6-8 WEEKS 10,000-100,000 2-3 MONTHS Performed By: #### R F #### [facility] [address] [address] [address] Venkat Sloan XR HYSTEROSALPINGOGRAMon XR HYSTEROSALPINGOGRAM [...] LAM VELA Date: 2022-05-04 16:09 Normal [facility] PROGESTERONEon 04-24-2022 Progesterone 0.4 ng/mL Normal [facility] Comment on above: Result Comment: Foll icular phase 0.1 - 0.9 Luteal phase 1.8 - 23.9 Ovulation phase 0.1 - 12.0 First trimester 11.0 - 44.3 Second trimester 25.4 - 83.3 Third trimester 58.7 - 214.0 Postmenopausal 0.0 - 0.1 Performed By: #### I NFLUAB #### [facility] [address] [place] [address] Dr. Venkat Sloan CULTURE SPUTUMon 04-02-2022 CULTURE SPUTUM Culture Observations : NORMAL RESPIRATORY NATALEE. Normal [facility] Comment on above: Performed By: #### R F #### [facility] [address] [place] [address] Dr. Venkat Sloan SPUTUM GRAM STAINon 04-02-19 23 COMMENTS Normal [facility] Comment on above: Performed By: #### R F #### [facility] [address] [place] [address] Dr. Venkat Sloan DIPHTHEROIDS Normal [facility] Comment on above: Performed By: #### R F #### [facility] [address] [place] [address] Dr. Venkat Sloan EPITHELIALS <25 Normal [facility] Comment on above: Performed By: #### R F #### [facility] [address] [place] [address] Dr. Venkat Sloan FUNGAL ELEMENTS Normal [facility] Comment on above: Performed By: #### R F #### [facility] [address] [place] [address] Dr. Venkat Sloan GRAM NEG BACILLI RARE Normal [facility] Comment on above: Performed By: #### R F #### [facility] [address] [place] [address] Dr. Venkat Sloan GRAM NEG DIPPLOCOCCI Normal [facility] Comment on above: Performed By: #### R F #### [facility] [address] [place] [address] Dr. Venkat Sloan GRAM POS BACILLI Normal [facility] Comment on above: Performed By: #### R F #### [facility] [address] [place] [address] Dr. Venkat Sloan GRAM POSITIVE COCCI RARE Normal [facility] Comment on above: Performed By: #### R F #### [facility] [address] [address] [address] Venkat Sloan WBC (Bld) [#/Vol] 10*3/uL Normal [facility] Comment on above: Performed By: #### R F #### [facility] [address] [place] [address] Dr. Venkat Sloan Covid-19 PCR (CVDTB)on SARS-CoV-2 (COVID-19) RNA SHIRIN+probe Ql (Unsp spec) Not detected Normal NOT DETECTED [facility] Comment on above: Result Comment: This test is not yet approved or cleared by the [place] FDA. When there are no FDA-approved or cleared tests available, and other criteria are met, FDA can make tests available under an emergency access mechanism called an Emergency Use Authorization (EUA). The EUA for this test is supported by the Triage Assistant of Health and Human Service's (HHS's) declaration [...] SARS-CoV-2. Performed By: #### P REGQNT #### [facility] [address] [place] [address] Dr. Venkat Sloan INFLUENZA A AND B AGon 04-01 [facility] SEE BELOW Normal [facility] Comment on above: Result Comment: Nega tive for Flu A protein angiten. Infection due to Flu A cannot be ruled out. Flu A angiten in the sample may be below the detection limit of the test. Performed By: #### I NFLUAB #### [facility] [address] [place] [address] Dr. [facility] Comment on above: Result Comment: Nega tive for Flu B protein antigen. Infection due to Flu B cannot be ruled out. Flu B antigen in the sample may be below the detection limit of the test. Performed By: #### I NFLUAB #### [facility] [address] [place] [address] Dr. Venkat Sloan INFLUENZA A AG Negative Normal NEGATIVE SEE COMMENT [facility] Comment on above: Performed By: #### I NFLUAB #### [facility] [address] [place] [address] Dr. Venkat Sloan INFLUENZA B AG Negative Normal NEGATIVE SEE COMMENT [facility] Comment on above: Performed By: #### I NFLUAB #### [facility] [address] [place] [address] Dr. Venkat Sloan XR CHEST 2 Von [...] [address] Date: 2022-03-24 12:33 Normal [facility] SARS-CoV-2 (COVID-19) RNA SHIRIN+probe Ql (Unsp spec) Not detected Normal NOT DETECTED [facility] Comment on above: Result Comment: When diagnostic [...] for this test is supported by the Triage Assistant of Health and Human Service's declaration that [...] used). Performed By: #### R F #### [facility] [address] [place] [address] Dr. Venkat Sloan INFLUENZA A AND B [facility] 03-15 [facility] SEE BELOW Normal [facility] Comment on above: Result Comment: Nega tive for Flu A protein angiten. Infection due to Flu A cannot be ruled out. Flu A angiten in the sample may be below the detection limit of the test. Performed By: #### I NFLUAB #### [facility] [address] [place] [address] Dr. Venkat [facility] Normal [facility] Comment on above: Result Comment: Nega tive for Flu B protein antigen. Infection due to Flu B cannot be ruled out. Flu B antigen in the sample may be below the detection limit of the test. Performed By: #### I NFLUAB #### [facility] [address] [place] [address] Dr. Venkat Sloan INFLUENZA A AG Negative Normal NEGATIVE SEE COMMENT [facility] Comment on above: Performed By: #### I NFLUAB #### [facility] [address] [place] [address] Dr. Venkat Sloan INFLUENZA B AG Negative Normal NEGATIVE SEE COMMENT [facility] Comment on above: Performed By: #### I NFLUAB #### [facility] [address] [place] [address] Dr. Venkat Sloan INTERNAL CONTROLS Within Normal Limits Normal Wi thin Normal Limits [facility] Comment on above: Performed By: #### I NFLUAB #### [facility] [address] [address] [address] Venkat Sloan Covid-19 PCR ([facility])on 02-25 SARS-CoV-2 (COVID-19) RNA SHIRIN+probe Ql (Unsp spec) Not detected Normal NOT DETECTED [facility] Comment on above: Result Comment: When diagnostic [...] for this test is supported by the [place] of Health and Human Service's declaration that [...] used). Performed By: #### I NFLUAB #### [facility] [address] [place] [address] Dr. Venkat Sloan INFLUENZA A AND B AGon 03-12 [facility] SEE BELOW Normal [facility] Comment on above: Result Comment: Nega tive for Flu A protein angiten. Infection due to Flu A cannot be ruled out. Flu A angiten in the sample may be below the detection limit of the test. Performed By: #### I NFLUAB #### [facility] [address] [address] [address] [facility] Normal [facility] Comment on above: Result Comment: Nega tive for Flu B protein antigen. Infection due to Flu B cannot be ruled out. Flu B antigen in the sample may be below the detection limit of the test. Performed By: #### I NFLUAB #### [facility] [address] [address] [address] Venkat Sloan INFLUENZA A AG Negative Normal NEGATIVE SEE COMMENT [facility] Comment on above: Performed By: #### I NFLUAB #### [facility] [address] [address] [address] Venkat Sloan INFLUENZA B AG Negative Normal NEGATIVE SEE COMMENT [facility] Comment on above: Performed By: #### I NFLUAB #### [facility] [address] [address] [address] Venkat Sloan INTERNAL CONTROLS Within Normal Limits Normal Wi thin Normal Limits [facility] Comment on above: Performed By: #### I NFLUAB #### [facility] [address] [address] [address] Venkat Sloan PROGESTERONEon 02-20-2022 Progesterone 0.3 ng/mL Normal [facility] Comment on above: Result Comment: Foll icular phase 0.1 - 0.9 Luteal phase 1.8 - 23.9 Ovulation phase 0.1 - 12.0 First trimester 11.0 - 44.3 Second trimester 25.4 - 83.3 Third trimester 58.7 - 214.0 Postmenopausal 0.0 - 0.1 Performed By: #### R F #### [facility] [address] [place] [address] Dr. Venkat Sloan ACTH STIMULATIONon 2 Andros Baseline 49 ng/dL Normal 41-262 [facility] Comment on above: Performed By: #### R F #### [facility] [address] [place] [address] Dr. Venkat Sloan Andros Stimulated 82 ng/dL Normal Not Estab. [facility] Comment on above: Performed By: #### R F #### [facility] [address] [address] [address] Venkat Sloan Covid-19 PCR ([facility])on 01-26 SARS-CoV-2 (COVID-19) RNA SHIRIN+probe Ql (Unsp spec) Not detected Normal NOT DETECTED [facility] Comment on above: Result Comment: This test is not yet approved or cleared by the [place] FDA. When there are no FDA-approved or cleared tests available, and other criteria are met, FDA can make tests available under an emergency access mechanism called an Emergency Use Authorization (EUA). The EUA for this test is supported by the Triage Assistant of Health and Human Service's (HHS's) declaration [...] SARS-CoV-2. Performed By: #### I NFLUAB #### [facility] [address] [place] [address] Dr. Venkat Sloan INFLUENZA A AND B [facility] 02-10 [facility] SEE BELOW Normal [facility] Comment on above: Result Comment: Nega tive for Flu A protein angiten. Infection due to Flu A cannot be ruled out. Flu A angiten in the sample may be below the detection limit of the test. Performed By: #### P REGQNT #### [facility] [address] [place] [address] Dr. Venkat Sloan [facility] SEE BELOW Normal [facility] Comment on above: Result Comment: Nega tive for Flu B protein antigen. Infection due to Flu B cannot be ruled out. Flu B antigen in the sample may be below the detection limit of the test. Performed By: #### P REGQNT #### [facility] [address] [place] [address] Dr. Venkat Sloan INFLUENZA A AG Negative Normal NEGATIVE SEE COMMENT [facility] Comment on above: Performed By: #### P REGQNT #### [facility] [address] [place] [address] Dr. Venkat Sloan INFLUENZA B AG Negative Normal NEGATIVE SEE COMMENT [facility] Comment on above: Performed By: #### P REGQNT #### [facility] [address] [address] [address] Venkat Sloan INTERNAL CONTROLS Within Normal Limits Normal Wi thin Normal Limits [facility] Comment on above: Performed By: #### P REGQNT #### [facility] [address] [address] [address] Venkat Sloan DHEA SERUMon 01-19-2022 Dehydroepiandrosterone (DHEA) 82 ng/dL Normal 31-701 [facility] Comment on above: Result Comment: Age 1 [...] 701 Performed By: #### T SH #### [facility] [address] [place] [address] Dr. Venkat Sloan DHEA-SULFATEon 01-14-2022 DHEA-Sulfate 34.0 ug/dL Critically low 84.8-378.0 [facility] Comment on above: Performed By: #### R F #### [facility] [address] [place] [address] Dr. Venkat Sloan FSHon 01-14-2022 FSH 2.2 mIU/mL Normal [facility] Comment on above: Result Comment: Adul t Female: Follicular phase 3.5 - 12.5 Ovulation phase 4.7 - 21.5 Luteal phase 1.7 - 7.7 Postmenopausal 25.8 - 134.8 Performed By: #### L BCFSH #### [facility] [address] [place] [address] Dr. Venkat Sloan LUTEINIZING HORMONE (LH)on 1 LH 5.1 mIU/mL Normal [facility] Comment on above: Result Comment: Adul t Female: Follicular phase 2.4 - 12.6 Ovulation phase 14.0 - 95.6 Luteal phase 1.0 - 11.4 Postmenopausal 7.7 - 58.5 Performed By: #### I NFLUAB #### [facility] [address] [place] [address] Dr. Venkat Sloan PROLACTINon 01-14-2022 Prolactin 8.0 ng/mL Normal 4.8-23.3 [facility] Comment on above: Performed By: #### P ROLAC #### [facility] [address] [place] [address] Dr. Venkat Sloan CBC AUTO DIFFon 01-13-2022 BASO # 0.0 103/ul Normal 0.0-0.1 [facility] Comment on above: Performed By: #### T SH #### [facility] [address] [place] [address] Dr. Venkat Sloan Basophils/100 WBC (Bld) 0.4 % Normal 0.2-2.0 [facility] Comment on above: Performed By: #### T SH #### [facility] [address] [place] [address] Dr. Venkat Sloan EO # 0.1 103/ul Normal 0.0-0.7 [facility] Comment on above: Performed By: #### T SH #### [facility] [address] [place] [address] Dr. Venkat Sloan Eosinophils/100 WBC (Bld) 1.2 % Normal 0.9-7.0 [facility] Comment on above: Performed By: #### T SH #### [facility] [address] [place] [address] Dr. Venkat Sloan Erythrocyte distribution width (RBC) [Ratio] 12.7 % Normal 11.0-15.0 [facility] Comment on above: Performed By: #### T SH #### [facility] [address] [place] [address] Dr. Venkat Sloan Hematocrit (Bld) [Volume fraction] 41.1 % Normal 36.0-48.0 [facility] Comment on above: Performed By: #### T SH #### [facility] [address] [place] [address] Dr. Venkat Sloan Hemoglobin (Bld) [Mass/Vol] 13.1 g/dL Normal 12.0-16.0 [facility] Comment on above: Performed By: #### T SH #### [facility] [address] [place] [address] Dr. Venkat Sloan IG # 0.03 10e3/ul Normal 0.00-0.03 [facility] Comment on above: Performed By: #### T SH #### [facility] [address] [place] [address] Dr. Venkat Sloan IG % 0.3 % Normal 0.0-0.5 [facility] Comment on above: Performed By: #### T SH #### [facility] [address] [place] [address] Dr. Venkat Sloan LYMPH # 1.6 103/ul Normal 1.2-3.8 [facility] Comment on above: Performed By: #### T SH #### [facility] [address] [place] [address] Dr. Venkat Sloan Lymphocytes/100 WBC (Bld) 15.0 % Critically low 20.5-60.0 [facility] Comment on above: Performed By: #### T SH #### [facility] [address] [place] [address] Dr. Venkat Sloan MANUAL DIFF REQ NO Normal [facility] Comment on above: Performed By: #### T SH #### [facility] [address] [place] [address] Dr. Venkat Sloan MCH (RBC) [Entitic mass] 28.5 pg Normal 26.7-34.0 [facility] Comment on above: Performed By: #### T SH #### [facility] [address] [place] [address] Dr. Venkat Sloan MCHC (RBC) [Mass/Vol] 31.9 g/dL Normal 29.9-35.2 [facility] Comment on above: Performed By: #### T SH #### [facility] [address] [place] [address] Dr. Venkat Sloan MCV (RBC) [Entitic vol] 89.3 fL Normal 81.0-99.0 [facility] Comment on above: Performed By: #### T SH #### [facility] [address] [place] [address] Dr. Venkat Sloan MONO # 0.9 103/ul Critically high 0.3-0.8 [facility] Comment on above: Performed By: #### T SH #### [facility] [address] [address] [address] Venkat Sloan Monocytes/100 WBC (Bld) 8.8 % Normal 1.7-12.0 [facility] Comment on above: Performed By: #### T SH #### [facility] [address] [address] [address] Venkat Sloan NEUT # 7.9 103/ul Critically high 1.4-6.5 [facility] Comment on above: Performed By: #### T SH #### [facility] [address] [address] [address] Venkat Sloan Neutrophils/100 WBC (Bld) 74.3 % Normal 43.0-75.0 [facility] Comment on above: Performed By: #### T SH #### [facility] [address] [place] [address] Dr. Venkat Sloan Platelet mean volume (Bld) [Entitic vol] 9.2 fL Critically low 9.5-13.5 [facility] Comment on above: Performed By: #### T SH #### [facility] [address] [place] [address] Dr. Venkat Sloan PLT 300 103/ul Normal 150-450 [facility] Comment on above: Performed By: #### T SH #### [facility] [address] [place] [address] Dr. Venkat Sloan RBC 4.60 106/ul Normal 4.20-5.40 [facility] Comment on above: Performed By: #### T SH #### [facility] [address] [place] [address] Dr. Venkat Sloan WBC 10.7 103/ul Normal 4.0-11.0 [facility] Comment on above: Performed By: #### T SH #### [facility] [address] [place] [address] Dr. Venkat Sloan GLYCOHEMOGLOBIN A1Con 2021 ADA RECOMMENDATION SEE BELOW Normal [facility] Comment on above: Result Comment: ADA RECOMMENDED LIMIT 4.0 - 6.0 ADA THERAPEUTIC TARGET < 7.0 ACTION SUGGESTED > 7.0 Performed By: #### P REGQNT #### [facility] [address] [place] [address] Dr. Venkat Sloan Glucose [Mass/Vol] 100 mg/dL Normal [facility] Comment on above: Performed By: #### P REGQNT #### [facility] [address] [place] [address] Dr. Venkat lSoan HbA1c (Bld) [Mass fraction] 5.1 % Normal 4.5-6.2 [facility] Comment on above: Performed By: #### P REGQNT #### [facility] [address] [place] [address] Dr. Venkat Sloan TSHon 01-13-2022 TSH 1.098 uIU/mL Normal 0.358-3.740 [facility] Comment on above: Performed By: #### T SH #### [facility] [address] [place] [address] Dr. Venkat Sloan [facility] SARS-CoV-2 (COVID-19) RNA SHIRIN+probe Ql (Unsp spec) Not detected Normal NOT DETECTED [facility] Comment on above: Result Comment: This test is not yet approved or cleared by the [place] FDA. When there are no FDA-approved or cleared tests available, and other criteria are met, FDA can make tests available under an emergency access mechanism called an Emergency Use Authorization (EUA). The EUA for this test is supported by the Triage Assistant of Health and Human Service's (HHS's) declaration [...] SARS-CoV-2. Performed By: #### I NFLUAB #### [facility] [address] [address] [address] Venkat Sloan PREG QUANT HCGon 12-24-2021 HCG QUANT <1 Normal [facility] Comment on above: Performed By: #### P REGQNT #### [facility] [address] [address] [address] Venkat Sloan HCG RANGE SEE BELOW Normal [facility] Comment on above: Result Comment: 5-50 0.2-1 WEEK 50-500 1-2 WEEKS 100-5,000 2-3 WEEKS 500-10,000 3-4 WEEKS 1,000-50,000 4-5 WEEKS 10,000-100,000 5-6 WEEKS 15,000-200,000 6-8 WEEKS 10,000-100,000 2-3 MONTHS Performed By: #### P REGQNT #### [facility] [address] [address] [address] Venkat Sloan HCG-BETA SUBUNIT QUANTon hCG,Beta Subunit,Qnt,Serum <1 Normal [facility] Comment on above: Result Comment: Fema le (Non-) 0 - 5 (Postmenopausal) 0 - 8 . Female () Weeks of Gestation 3 6 - 71 4 10 - 750 5 217 - 7138 6 158 - 55091 7 5325 -[phone] 8 15402 -477655 9 33117 -[phone] 10 18990 -475097 12 56622 -431302 14 71889 - 89789 15 28775 - 44002 16 1234 - 69560 17 5755 - 41090 18 5327 - 26543 Aj ECLIA methodology Performed By: #### T SH #### [facility] [address] [place] [address] Dr. Venkat Sloan BRETT by IFAon 09-29-2021 Antinuclear Antibodies, IFA Negative Normal [facility] Comment on above: Result Comment: Nega tive <1:80 Borderline 1:80 Positive >1:80 ICAP nomenclature: AC-0 For more information about Hep-2 cell patterns use ANApatterns.org, the official website for the International Consensus on Antinuclear Antibody (BRETT) Patterns (ICAP). Performed By: #### A NAIFA #### [facility] [address] [place] [address] Dr. Venkat Sloan INSULINon 09-29-2021 Insulin 11.1 uIU/mL Normal 2.6-24.9 [facility] Comment on above: Performed By: #### T SH #### [facility] [address] [place] [address] Dr. Venkat Sloan ANTISTREPTOLYSIN O AB (ASO)o n 09-27-2021 Antistreptolysin O Ab <20.0 Normal 0.0-200.0 [facility] Comment on above: Performed By: #### P REGQNT #### [facility] [address] [place] [address] Dr. Venkat Sloan RHEUMATOID FACTORon 09-28-19 RA Latex Turbid. <10.0 Normal <14.0 [facility] Comment on above: Performed By: #### R F #### [facility] [address] [place] [address] Dr. Venkat Sloan CBC AUTO DIFFon 09-26-2021 BASO # 0.0 103/ul Normal 0.0-0.1 [facility] Comment on above: Performed By: #### T SH #### [facility] [address] [place] [address] Dr. Venkat Sloan Basophils/100 WBC (Bld) 0.3 % Normal 0.2-2.0 [facility] Comment on above: Performed By: #### T SH #### [facility] [address] [place] [address] Dr. Venkat Sloan EO # 0.1 103/ul Normal 0.0-0.7 [facility] Comment on above: Performed By: #### T SH #### [facility] [address] [place] [address] Dr. Venkat Sloan Eosinophils/100 WBC (Bld) 1.8 % Normal 0.9-7.0 [facility] Comment on above: Performed By: #### T SH #### [facility] [address] [place] [address] Dr. Venkat Sloan Erythrocyte distribution width (RBC) [Ratio] 12.9 % Normal 11.0-15.0 [facility] Comment on above: Performed By: #### T SH #### [facility] [address] [place] [address] Dr. Venkat Sloan Hematocrit (Bld) [Volume fraction] 39.8 % Normal 36.0-48.0 [facility] Comment on above: Performed By: #### T SH #### [facility] [address] [place] [address] Dr. Venkat Sloan Hemoglobin (Bld) [Mass/Vol] 12.7 g/dL Normal 12.0-16.0 [facility] Comment on above: Performed By: #### T SH #### [facility] [address] [place] [address] Dr. Venkat Sloan IG # 0.02 10e3/ul Normal 0.00-0.03 [facility] Comment on above: Performed By: #### T SH #### [facility] [address] [place] [address] Dr. Venkat Sloan IG % 0.3 % Normal 0.0-0.5 [facility] Comment on above: Performed By: #### T SH #### [facility] [address] [place] [address] Dr. Venkat Sloan LYMPH # 1.5 103/ul Normal 1.2-3.8 [facility] Comment on above: Performed By: #### T SH #### [facility] [address] [place] [address] Dr. Venkat Sloan Lymphocytes/100 WBC (Bld) 21.5 % Normal 20.5-60.0 [facility] Comment on above: Performed By: #### T SH #### [facility] [address] [place] [address] Dr. Venkat Sloan MANUAL DIFF REQ NO Normal [facility] Comment on above: Performed By: #### T SH #### [facility] [address] [place] [address] Dr. Venkat Sloan MCH (RBC) [Entitic mass] 28.5 pg Normal 26.7-34.0 [facility] Comment on above: Performed By: #### T SH #### [facility] [address] [place] [address] Dr. Venkat Sloan MCHC (RBC) [Mass/Vol] 31.9 g/dL Normal 29.9-35.2 [facility] Comment on above: Performed By: #### T SH #### [facility] [address] [place] [address] Dr. Venkat Sloan MCV (RBC) [Entitic vol] 89.2 fL Normal 81.0-99.0 [facility] Comment on above: Performed By: #### T SH #### [facility] [address] [place] [address] Dr. Venkat Sloan MONO # 0.5 103/ul Normal 0.3-0.8 [facility] Comment on above: Performed By: #### T SH #### [facility] [address] [place] [address] Dr. Venkat Sloan Monocytes/100 WBC (Bld) 7.6 % Normal 1.7-12.0 [facility] Comment on above: Performed By: #### T SH #### [facility] [address] [place] [address] Dr. Venkat Sloan NEUT # 4.9 103/ul Normal 1.4-6.5 [facility] Comment on above: Performed By: #### T SH #### [facility] [address] [place] [address] Dr. Venkat Sloan Neutrophils/100 WBC (Bld) 68.5 % Normal 43.0-75.0 [facility] Comment on above: Performed By: #### T SH #### [facility] [address] [place] [address] Dr. Venkat Sloan Platelet mean volume (Bld) [Entitic vol] 8.8 fL Critically low 9.5-13.5 [facility] Comment on above: Performed By: #### T SH #### [facility] [address] [address] [address] Venkat Sloan PLT 297 103/ul Normal 150-450 [facility] Comment on above: Performed By: #### T SH #### [facility] [address] [place] [address] Dr. Venkat Sloan RBC 4.46 106/ul Normal 4.20-5.40 [facility] Comment on above: Performed By: #### T SH #### [facility] [address] [place] [address] Dr. Venkat Sloan WBC 7.1 103/ul Normal 4.0-11.0 [facility] Comment on above: Performed By: #### T SH #### [facility] [address] [place] [address] Dr. Venkat Sloan CRPon 09-26-2021 CRP [Mass/Vol] mg/L Normal <=1.0 [facility] Comment on above: Performed By: #### P REGQNT #### [facility] [address] [place] [address] Dr. Venkat Sloan FREE THYROXINE INDEX T7on FTI 2.71 Normal 1.30-4.50 [facility] Comment on above: Performed By: #### P REGQNT #### [facility] [address] [place] [address] Dr. Venkat Sloan T3U 33.0 % Normal 30.0-39.0 [facility] Comment on above: Performed By: #### P REGQNT #### [facility] [address] [place] [address] Dr. Venkat Sloan T4 [Mass/Vol] 8.20 ug/dL Normal 4.80-13.90 [facility] Comment on above: Performed By: #### P REGQNT #### [facility] [address] [place] [address] Dr. Venkat Sloan GLYCOHEMOGLOBIN A1Con 2021 ADA RECOMMENDATION SEE BELOW Normal [facility] Comment on above: Result Comment: ADA RECOMMENDED LIMIT 4.0 - 6.0 ADA THERAPEUTIC TARGET < 7.0 ACTION SUGGESTED > 7.0 Performed By: #### I NFLUAB #### [facility] [address] [address] [address] Venkat Sloan Glucose [Mass/Vol] 105 mg/dL Normal [facility] Comment on above: Performed By: #### I NFLUAB #### [facility] [address] [address] [address] Venkat Sloan HbA1c (Bld) [Mass fraction] 5.3 % Normal 4.5-6.2 [facility] Comment on above: Performed By: #### I NFLUAB #### [facility] [address] [place] [address] Dr. Venkat Sloan IRONon 09-26-2021 Iron [Mass/Vol] 49.0 ug/dL Critically low 50.0-170.[address] [facility] Comment on above: Performed By: #### P REGQNT #### [facility] [address] [place] [address] Dr. Venkat Sloan LIPID PROFILEon 09-26-2021 CHOL-HDL RATIO NORM SEE BELOW Normal [facility] Comment on above: Result Comment: 3.3 - 4.4 LOW RISK 4.4 - 7.1 AVERAGE RISK 7.1 - 11.0 MODERATE RISK >11.0 HIGH RISK Performed By: #### P REGQNT #### [facility] [address] [place] [address] Dr. Venkat Sloan Cholesterol [Mass/Vol] 197 mg/dL Normal <=200 [facility] Comment on above: Performed By: #### P REGQNT #### [facility] [address] [place] [address] Dr. Venkat Sloan Cholesterol in HDL [Mass/Vol] 64 mg/dL Critically high 40-60 [facility] Comment on above: Performed By: #### P REGQNT #### [facility] [address] [place] [address] Dr. Venkat Sloan Cholesterol in LDL [Mass/Vol] 123.4 mg/dL Normal [facility] Comment on above: Performed By: #### P REGQNT #### [facility] [address] [address] [address] Venkat Sloan Cholesterol.total/Choles terol in HDL [Mass ratio] 3.1 {ratio} Normal [facility] Comment on above: Performed By: #### P REGQNT #### [facility] [address] [place] [address] Dr. Venkat Sloan HDL NORMAL > or = 60 mg/dl - LO W CARDIOVASCULAR RISK <40 mg/dl - HIGH CARDIOVASCULAR RISK Normal [facility] Comment on above: Performed By: #### P REGQNT #### [facility] [address] [place] [address] Dr. Venkat Sloan LDL CALC NORMAL SEE BELOW Normal [facility] Comment on above: Result Comment: <100 mg/dl OPTIMAL 100 - 129 mg/dl NEAR OR ABOVE OPTIMAL 130 - 159 mg/dl BORDERLINE HIGH 160 - 189 mg/dl HIGH >190 mg/dl VERY HIGH Performed By: #### P REGQNT #### [facility] [address] [place] [address] Dr. Venkat Sloan Triglyceride [Mass/Vol] 48 mg/dL Normal <=150 [facility] Comment on above: Performed By: #### P REGQNT #### [facility] [address] [place] [address] Dr. Venkat Sloan VLDL CALC 9.6 mg/dL Normal [facility] Comment on above: Performed By: #### P REGQNT #### [facility] [address] [place] [address] Dr. Venkat Sloan PROF 14(COMP METB)on 022 Albumin [Mass/Vol] 4.0 g/dL Normal 3.4-5.0 [facility] Comment on above: Performed By: #### I NFLUAB #### [facility] [address] [place] [address] Dr. Venkat Sloan Albumin/Globulin [Mass ratio] 1.3 {ratio} Normal [facility] Comment on above: Performed By: #### I NFLUAB #### [facility] [address] [place] [address] Dr. Venkat Sloan ALP [Catalytic activity/Vol] 58 U/L Normal 46-116 [facility] Comment on above: Performed By: #### I NFLUAB #### [facility] [address] [address] [address] Venkat Sloan ALT [Catalytic activity/Vol] 20 U/L Normal 14-59 [facility] Comment on above: Performed By: #### I NFLUAB #### [facility] [address] [address] [address] Venkat Sloan Anion gap [Moles/Vol] 10.4 mmol/L Normal [facility] Comment on above: Performed By: #### I NFLUAB #### [facility] [address] [address] [address] Venkat Sloan AST [Catalytic activity/Vol] 11 U/L Critically low 15-37 [facility] Comment on above: Performed By: #### I NFLUAB #### [facility] [address] [place] [address] Dr. Venkat Sloan Bilirubin [Mass/Vol] 0.8 mg/dL Normal 0.2-1.0 [facility] Comment on above: Performed By: #### I NFLUAB #### [facility] [address] [place] [address] Dr. Venkat Sloan Calcium [Mass/Vol] 9.0 mg/dL Normal 8.5-10.1 [facility] Comment on above: Performed By: #### I NFLUAB #### [facility] [address] [place] [address] Dr. Venkat Sloan Chloride [Moles/Vol] 106 mmol/L Normal 98-107 [facility] Comment on above: Performed By: #### I NFLUAB #### [facility] [address] [address] [address] Venkat Sloan CO2 [Moles/Vol] 27.0 mmol/L Normal 21.0-32.0 [facility] Comment on above: Performed By: #### I NFLUAB #### [facility] [address] [place] [address] Dr. Venkat Sloan Creatinine [Mass/Vol] 0.70 mg/dL Normal 0.55-1.02 [facility] Comment on above: Performed By: #### I NFLUAB #### [facility] [address] [address] [address] Venkat Sloan EGFR-AF KYRGYZ >60 Normal >=60 [facility] Comment on above: Performed By: #### I NFLUAB #### [facility] [address] [address] [address] Venkat Sloan EGFR-NON AF KYRGYZ >60 Normal >=60 [facility] Comment on above: Performed By: #### I NFLUAB #### [facility] [address] [address] [address] Venkat Sloan Globulin (S) [Mass/Vol] 3.2 g/dL Normal [facility] Comment on above: Performed By: #### I NFLUAB #### [facility] [address] [place] [address] Dr. Venkat Sloan Glucose [Mass/Vol] 92 mg/dL Normal 74-106 [facility] Comment on above: Performed By: #### I NFLUAB #### [facility] [address] [address] [address] Venkat Sloan Potassium [Moles/Vol] 4.4 mmol/L Normal 3.5-5.1 [facility] Comment on above: Performed By: #### I NFLUAB #### [facility] [address] [address] [address] Venkat Sloan Protein [Mass/Vol] 7.2 g/dL Normal 6.4-8.2 [facility] Comment on above: Performed By: #### I NFLUAB #### [facility] [address] [address] [address] Venkat Sloan Sodium [Moles/Vol] 139 mmol/L Normal 136-145 [facility] Comment on above: Performed By: #### I NFLUAB #### [facility] [address] [address] [address] Venkat Sloan Urea nitrogen [Mass/Vol] 13.0 mg/dL Normal 7.0-18.0 [facility] Comment on above: Performed By: #### I NFLUAB #### [facility] [address] [place] [address] Dr. Venkat Sloan Urea nitrogen/Creatinine [Mass ratio] 18.6 mg/mg Normal [facility] Comment on above: Performed By: #### I NFLUAB #### [facility] [address] [place] [address] Dr. Venkat Sloan TSHon 09-26-2021 TSH 1.318 uIU/mL Normal 0.358-3.740 [facility] Comment on above: Performed By: #### P REGQNT #### [facility] [address] [place] [address] Dr. Venkat Sloan URIC ACID SERUMon 09-26-2021 Urate [Mass/Vol] 3.9 mg/dL Normal 2.6-6.0 [facility] Comment on above: Performed By: #### P REGQNT #### [facility] [address] [place] [address] Dr. Venkat Sloan XR CSPINE MIN 4 [...] DUDLEY HERNÁNDEZ Date: 2021-09-24 21:16 Normal [facility] PREG QUANT HCGon 08-17-2021 HCG QUANT <1 Normal [facility] Comment on above: Performed By: #### I NFLUAB #### [facility] [address] [place] [address] Dr. Venkat Sloan HCG RANGE SEE BELOW Normal [facility] Comment on above: Result Comment: 5-50 0-1 WEEK 40-300 1-2 WEEKS 100-1,000 2-3 WEEKS 500-6,000 3-4 WEEKS 5,000-200,000 1-2 MONTHS 10,000-100,000 2-3 MONTHS 3,000-50,000 2ND TRIMESTER 1,000-50,000 3RD TRIMESTER Performed By: #### I NFLUAB #### [facility] [address] [place] [address] Dr. Venkat Sloan US PELVIS AND TRANSVAGon [...] DUDLEY HERNÁNDEZ Date: 2021-08-17 07:01 Normal [facility] COVID Quick Testingon 2020 Result Negative [facility] Other Vital Signs Date Time Vital Sign Value Performing Clinician Facility 05-22-2023 09:270500 Body height 154.94 cm [facility] 05-22-2023 09:0500 Body mass index (BMI) [Ratio] 30.8 kg/m2 [facility] 05-22-2023 09:-050 Body temperature 98.1 [degF] [facility] 05-22-2023 09:0500 Body weight 74.04 kg [facility] 05-22-2023 09:27-0500 Heart rate 78 /min [facility] 05-22-2023 09:27-0500 Respiratory rate 16 /min [facility] 05-22-2023 09:27-0500 SaO2% (BldA) [Mass fraction] 98 % [facility] 05-10-2023 15:14-0500 Body mass index (BMI) [Ratio] 30.04 kg/m2 Ricardo Jennifer DO Work Phone: [facility] 05-10-2023 15:14-0500 Body weight 72.12 kg Ricardo Jennifer DO Work Phone: [facility] 05-10-2023 15:14-0500 Diastolic blood pressure 70 mm[Hg] Ricardo Jennifer DO Work Phone: [facility] 05-10-2023 15:14-0500 Systolic blood pressure 110 mm[Hg] Ricardo Jennifer DO Work Phone: [facility] 01-27-2021 18:45-0400 Body height 154.94 cm Mohini Juan Other [facility] Other 01-27-2021 18:45-0400 Body mass index (BMI) [Ratio] 28.34 kg/m2 Mohini Juan Other [facility] Other 01-27-2021 18:45-0400 Body temperature 96.4 [degF] Mohini Juan Other [facility] Other 01-27-2021 18:45-0400 Body weight 68.04 kg Mohini Juan Other [facility] Other 01-27-2021 18:45-0400 Respiratory rate 18 /min Mohini Juan Other [facility] Other 01-27-2021 18:45-0400 SaO2% (BldA) [Mass fraction] 99 % Mohini Martinez Other [facility] Other 12-22-2020 11:45-0400 Body height 154.94 cm Dudley Freeman Other [facility] Other 12-22-2020 11:45-0400 Body mass index (BMI) [Ratio] 28.34 kg/m2 Dudley Freeman Other [facility] Other 12-22-2020 11:45-0400 Body weight 68.04 kg Dudley Freeman Other [facility] Other Encounters Encounter Date Encounter Type Care Provider Facility Start: 06-30-2023 End: 06-30-2023 ambulatory RICARDO JENNIFER Not Available Start: 06-13-2023 End: 06-13-2023 ambulatory RICARDO JENNIFER Not Available Start: 05-26-2023 End: 05-26-2023 ambulatory RICARDO JENNIFER Not Available Start: 05-22-2023 End: 05-22-2023 ambulatory [facility] Work Phone: Start: 05-22-2023 End: 05-22-2023 Patient encounter procedure On License Of [facility] Work Phone: [...] preprocedural examination DR RICARDO RODRIGUEZ . [facility] Start: 07-08-2022 End: 07-08-[address] RICARDO [...] without abnormal findings DR IRON GARCIA . [facility] Start: 09-26-2021 End: 09-27-[address] [...] 01-27-2021 End: 01-27-2021 ambulatory Mohini Martinez Other [facility] Other Start: 01-27-2021 Office outpatient vi sit [...] EST Routine [facility] [address] [place] [id number] Ricardo Rodriguez, DO [address] [place] [address] [facility] Start: 05-10-2023 End: 05-10-2024 CBC panel - Blood by Automated count CBC Lab Routine Diabetes mellitus screening Expected: 05/10/2023 (Approximate), Expires: 05/10/2024 [facility] Work Phone: Comment on above: Expected: 05/10/2023 (Approximate), Expires: 05/10/2024 Start: 05-10-2023 End: 05-10-2024 Measurement of glucose 1 hour after glucose challenge for glucose tolerance test Glucose tolerance, 1 hour Lab Routine Diabetes mellitus screening Expected: 05/10/2023 (Approximate), Expires: 05/10/2024 [facility] [facility] Comment on above: Expected: 05/10/2023 (Approximate), Expires: 05/10/2024 Start: 11-26-2022 Influenza vaccination Influenz a Vaccine (#1) [facility] Immunizations Immunization Date Immunization Notes Care Provider Fa tian 01-25-2022 influenza virus vacc ine, unspecified formulation Ricardo Jnenifer DO Work Phone: [facility] Payers Date Payer Category Payer Unknown BCBS BCBS [id number] 2022-Present [phone] [address] [place] [address] [id number] 1993 Unknown [id number] 2.16.840.1.009184.3.579.2.59 1993 Unknown [id number] 2.16.840.1.258251.3.579.2.59 1993 Unknown [id number] 2.16.840.1.457402.3.579.2.593 1993 Unknown [id number] 2.16.840.1.670361.3.579.2.593 1993 Unknown [id number] 2.16.840.1.523932.3.579.2.593 1993 Unknown [id number] 2.16.840.1.007997.3.579.2.593 1993 Unknown [id number] 2.16.840.1.328295.3.579.2.593 1993 Unknown [id number] 2.16.840.1.750951.3.579.2.593 1993 Unknown [id number] 2.16.840.1.942497.3.579.2.593 1993 Unknown [id number] 2.16.840.1.873017.3.579.2.593 1993 Unknown [id number] 2.16.840.1.118769.3.579.2.593 1993 Unknown [id number] 2.16.840.1.428393.3.579.2.59 1993 Unknown [id number] 2.16.840.1.157387.3.579.2.593 1993 Unknown [id number] 2.16.840.1.931400.3.579.2.59 1993 Unknown [id number] 2.16.840.1.944091.3.579.2.593 1993 Unknown [id number] 2.16.840.1.924983.3.579.2.59 1993 Unknown [id number] 2.16.840.1.066609.3.579.2.59 1993 Unknown [id number] 2.16.840.1.859498.3.579.2.593 1993 Unknown [id number] 2.16.840.1.615755.3.579.2.59 1993 Unknown [id number] 2.16.840.1.208580.3.579.2.593 1993 Unknown [id number] 2.16.840.1.756644.3.579.2.593 1993 Unknown [id number] 2.16.840.1.330686.3.579.2.593 1993 Unknown [id number] 2.16.840.1.985823.3.579.2.593 1993 Unknown [id number] 2.16.840.1.893575.3.579.2.593 1993 Unknown [id number] 2.16.840.1.586190.3.579.2.593 1993 Unknown [id number] 2.16.840.1.398987.3.579.2.1259 1993 Unknown [id number] 2.16.840.1.146818.3.579.2.1259 1993 Unknown [id number] 2.16.840.1.860774.3.579.2.1259 1993 Unknown [id number] 2.16.840.1.000410.3.579.2.1259 1993 Unknown [id number] 2.16.840.1.594465.3.579.2.1259 1993 Unknown [id number] 2.16.840.1.018011.3.579.2.1259 1993 Unknown [id number] 2.16.840.1.065370.3.579.2.1259 1959 Unknown [id number] 1959 Unknown [id number] Self-pay Self Pay [id number] Unknown [id number] 2.16. 840.1.763324.19 Unknown MMO [id number] Unknown [place] BC/BS [id number] Social History Date Type Detail Facility Unknown if ever smoked [facility] Other Start: 01-28-2023 Sex Assigned At [facility] Other Start: 01-28-2023 End: 05-22-2023 Tobacco smoking status NEIS Never smoked tobacco [facility] Start: 05-10-2023 [...] History of Present illness Narrative 05-10-2023 Melissa ThorntonAPRUL - 05/10/2023 2:50 PM EST Note Date [...] nursing note reviewed. 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 Vitals: Estimated body mass index is [...] Ricardo Rodriguez DO documented in this encounter [facility] Clinical Note 07-08-2022 Note Date & Type Note Facility 07-08-2022 Note OPERATIVE NOTE OPERATION DATE: 07/08/2022 PROCEDURE: Diagnostic laparoscopy with fulguration of ovarian endometrial implant. PREOPERATIVE DIAGNOSIS: Pelvic pain. POSTOPERATIVE DIAGNOSIS: Pelvic pain. ANESTHESIA: General. SURGEON: Ricardo Rodriguez D.O. FLOWER PICKER: DEVIN Miles URINE OUTPUT: Yellow and clear. [...] to Recovery Room in stable condition. [facility] Evaluation note 12-22-2020 Note Date & Type Note Facility 12-22-2020 Evaluation note Encounter Date Diagnosis Assessment Notes Nov, Irritable bowel syndrome with both constipation and diarrhea (ICD-10 - K58.2) LABS INDICATED ABOVE START TRIAL OF DICYCLOMINE 20 BID RTO 4 WEEKS [facility] Other Evaluation note Note Date & Type Note Facility Evaluation note [facility] Other Evaluation note Note Date & Type Note Facility Evaluation note Diagnosis Second trimester state, incidental Diabetes mellitus screening Screening for diabetes mellitus documented in this encounter [facility] Evaluation note Note Date & Type Note Facility Evaluation note No assessment information availa [facility] Work Phone: History general Narrative - Reported Note Date & Type Note Facility History general Narrative - Reported Type Medical History anxiety/depression Medical History IBS Surgical History TONSILLECTOMY [facility] Other History general Narrative - Reported Note Date & Type Note Facility History general Narrative - Reported [facility] Other Summary Purpose Family History No Family [...] and content) DATE CREATED AUTHOR 07/13/2022 [facility] DATE CREATED AUTHOR AUTHOR'S ORGANIZ ATION 07/01/2023 [facility] [employer] Care Teams (unrecognized sec tion and content) 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 [facility] [employer] [facility]. provides no warranty or guarantee of the accuracy or completeness of information in this document.
[2023-07-07 17:38] VITALS: BP 119/64; PULSE 82
== END 2023-07-07 18:20 | disposition home or self-care (01) ==
LOC: FBCO 14:47 → FBC 17:29
PROVIDERS: PCP Family Medicine; Visit Provider Obstetrics & Gynecology
DX: O40.3XX0 Polyhydramnios, third trimester, not applicable or unspecified (principal)
CPT/HCPCS: 59025

== ENCOUNTER 2023-07-11 05:30 | Outpatient (OUT) | payer BC, SELFPAY ==
--- OUTSIDE RECORDS SUMMARY | 2023-07-11 05:54 | XMS_ITS | CCD ---
Author Organization [facility] Care Team Providers Care Direct Sales Professional Name Role Phone Lydia Dudley Unavailable Mohini [...] Unavailable HOY ., DR PERDUE Consulting Unavailable GLENOMA, DR DUDLEY Emanuel Consulting Unavailable JENNIFER ., [...] DR SILVA Admitting Unavailable JENNIFER ., DR SIVLA Attending Unavailable HOY ., DR PERDUE Primary [...] JENNIFER ., DR SILVA Consulting Unavailable Lam eVla Consulting Unavailable JENNIFER ., DR SILVA Admitting Unavailable JENNIFER ., DR SILVA Attending Unavailable HOY ., DR PERDUE Primary Care Unavailable JENNIFER ., DR SILVA Admitting Unavailable JENNIFER ., DR SILVA Attending Unavailable HOY ., DR PERDUE Primary Care Unavailable Iron Garcia MD Primary Care Provider [phone] RICARDO RODRIGUEZ Attending Unavailable JENNIFER, RICARDO Attending Unavailable JENNIFER, RICARDO Attending Unavailable JENNIFER, RICARDO Attending Unavailable JENNIFER, RICARDO Attending Unavailable JENNIFER, RICARDO Attending Unavailable JENNIFER, RICARDO Attending Unavailable Medications Current Medications Medication Drug Class(es) Dates Sig (Normalized) Sig (Original) [id number] 200 actuat albuterol 0.09 mg/actuat metered dose [...] DAILY NEEDED FOR NAUSEA 0 02/19/2023 Active Hrctzi12-Cskg Fum-Folic Ac-Om3 (One A Day Women's Dha) 28 mg iron- 800 mcg combo pack (1 source) Start: 05-22-2023 Pgkind08-Gqcd Fum-Folic Ac-Om3 (One A Day Women's Dha) [...] (COVID-19) RNA SHIRIN+probe Ql (Unsp spec) [facility] Urinalysis macro (dipstick) panel (U)on 05-10-2023 Bilirubin, UA Negative Negative - 4(70) +++ mg/dL [facility] Blood, UA Negative Negative - 50 Jayson/mcL [facility] Clarity, UA Clear [facility] Color, UA Yellow [facility] Glucose, UA Negative Negative - 1999(110) ++++ mg/dL [facility] Interpretation and review of laboratory results Abnormal [facility] Ketones, UA Positive Negative - 160(16) ++++ mg/dL [facility] Comment on above: trace Leukocytes, UA Trace Negative - 500+++ Lolita/mcL [facility] Nitrite, UA Negative Negative - Positive [facility] pH, UA 6.0 5 - 9 [facility] Protein, UA Negative Negative - 1999(20) ++++ mg/dL [facility] Spec Grav, UA 1.030 1 - 1.03 [facility] Urobilinogen, UA 0.2 0.2 - 12 mg/dL [facility] CBC AUTO DIFFon 07-08-2022 BASO # 0.0 103/ul Normal 0.0-0.1 [facility] Comment on above: Performed By: #### R F #### [facility] [address] [address] [address] Venkat Sloan Basophils/100 WBC (Bld) 0.5 % Normal 0.2-2.0 [facility] Comment on above: Performed By: #### R F #### [facility] [address] [place] [address] Dr. Venkat Sloan EO # 0.1 103/ul Normal 0.0-0.7 [facility] Comment on above: Performed By: #### R F #### [facility] [address] [place] [address] Dr. Venkat Sloan Eosinophils/100 WBC (Bld) 1.7 % Normal 0.9-7.0 [facility] Comment on above: Performed By: #### R F #### [facility] [address] [place] [address] Dr. Venkat Sloan Erythrocyte distribution width (RBC) [Ratio] 12.7 % Normal 11.0-15.0 [facility] Comment on above: Performed By: #### R F #### [facility] [address] [place] [address] Dr. Venkat Sloan Hematocrit (Bld) [Volume fraction] 40.4 % Normal 36.0-48.0 [facility] Comment on above: Performed By: #### R F #### [facility] [address] [place] [address] Dr. Venkat Sloan Hemoglobin (Bld) [Mass/Vol] 13.1 g/dL Normal 12.0-16.0 [facility] Comment on above: Performed By: #### R F #### [facility] [address] [place] [address] Dr. Venkat Sloan IG # 0.02 10e3/ul Normal 0.00-0.03 [facility] Comment on above: Performed By: #### R F #### [facility] [address] [place] [address] Dr. Venkat Sloan IG % 0.3 % Normal 0.0-0.5 [facility] Comment on above: Performed By: #### R F #### [facility] [address] [place] [address] Dr. Venkat Sloan LYMPH # 2.0 103/ul Normal 1.2-3.8 [facility] Comment on above: Performed By: #### R F #### [facility] [address] [place] [address] Dr. Venkat Sloan Lymphocytes/100 WBC (Bld) 26.2 % Normal 20.5-60.0 [facility] Comment on above: Performed By: #### R F #### [facility] [address] [place] [address] Dr. Venkat Sloan MANUAL DIFF REQ NO Normal [facility] Comment on above: Performed By: #### R F #### [facility] [address] [place] [address] Dr. Venkat Sloan MCH (RBC) [Entitic mass] 28.4 pg Normal 26.7-34.0 [facility] Comment on above: Performed By: #### R F #### [facility] [address] [place] [address] Dr. Venkat Sloan MCHC (RBC) [Mass/Vol] 32.4 g/dL Normal 29.9-35.2 [facility] Comment on above: Performed By: #### R F #### [facility] [address] [place] [address] Dr. Venkat Sloan MCV (RBC) [Entitic vol] 87.4 fL Normal 81.0-99.0 [facility] Comment on above: Performed By: #### R F #### [facility] [address] [place] [address] Dr. Venkat Sloan MONO # 0.7 103/ul Normal 0.3-0.8 [facility] Comment on above: Performed By: #### R F #### [facility] [address] [place] [address] Dr. Venkat Sloan Monocytes/100 WBC (Bld) 8.8 % Normal 1.7-12.0 [facility] Comment on above: Performed By: #### R F #### [facility] [address] [place] [address] Dr. Venkat Sloan NEUT # 4.8 103/ul Normal 1.4-6.5 [facility] Comment on above: Performed By: #### R F #### [facility] [address] [place] [address] Dr. Venkat Sloan Neutrophils/100 WBC (Bld) 62.5 % Normal 43.0-75.0 [facility] Comment on above: Performed By: #### R F #### [facility] [address] [place] [address] Dr. Venkat Sloan Platelet mean volume (Bld) [Entitic vol] 8.5 fL Critically low 9.5-13.5 [facility] Comment on above: Performed By: #### R F #### [facility] [address] [place] [address] Dr. Venkat Sloan PLT 331 103/ul Normal 150-450 [facility] Comment on above: Performed By: #### R F #### [facility] [address] [place] [address] Dr. Venkat Sloan RBC 4.62 106/ul Normal 4.20-5.40 [facility] Comment on above: Performed By: #### R F #### [facility] [address] [place] [address] Dr. Venkat Sloan WBC 7.7 103/ul Normal 4.0-11.0 [facility] Comment on above: Performed By: #### R F #### [facility] [address] [place] [address] Dr. Venkat Sloan PREG QUANT HCGon 07-08-2022 HCG QUANT <1 Normal [facility] Comment on above: Performed By: #### P REGQNT #### [facility] [address] [place] [address] Dr. Venkat Sloan HCG RANGE SEE BELOW Normal [facility] Comment on above: Result Comment: 5-50 0.2-1 WEEK 50-500 1-2 WEEKS 100-5,000 2-3 WEEKS 500-10,000 3-4 WEEKS 1,000-50,000 4-5 WEEKS 10,000-100,000 5-6 WEEKS 15,000-200,000 6-8 WEEKS 10,000-100,000 2-3 MONTHS Performed By: #### P REGQNT #### [facility] [address] [place] [address] Dr. Venkat Sloan PROGESTERONEon 06-23-2022 Progesterone 5.7 ng/mL Normal [facility] Comment on above: Result Comment: Foll icular phase 0.1 - 0.9 Luteal phase 1.8 - 23.9 Ovulation phase 0.1 - 12.0 First trimester 11.0 - 44.3 Second trimester 25.4 - 83.3 Third trimester 58.7 - 214.0 Postmenopausal 0.0 - 0.1 Performed By: #### T SH #### [facility] [address] [place] [address] Dr. Venkat Sloan PREG QUANT HCGon 05-31-2022 HCG QUANT 1 mIU/mL Normal [facility] Comment on above: Performed By: #### P REGQNT #### [facility] [address] [place] [address] Dr. Venkat Sloan HCG RANGE SEE BELOW Normal [facility] Comment on above: Result Comment: 5-50 0.2-1 WEEK 50-500 1-2 WEEKS 100-5,000 2-3 WEEKS 500-10,000 3-4 WEEKS 1,000-50,000 4-5 WEEKS 10,000-100,000 5-6 WEEKS 15,000-200,000 6-8 WEEKS 10,000-100,000 2-3 MONTHS Performed By: #### P REGQNT #### [facility] [address] [place] [address] Dr. Venkat Sloan PROGESTERONEon 05-21-2022 Progesterone 12.4 ng/mL Normal [facility] Comment on above: Result Comment: Foll icular phase 0.1 - 0.9 Luteal phase 1.8 - 23.9 Ovulation phase 0.1 - 12.0 First trimester 11.0 - 44.3 Second trimester 25.4 - 83.3 Third trimester 58.7 - 214.0 Postmenopausal 0.0 - 0.1 Performed By: #### I NFLUAB #### [facility] [address] [place] [address] Dr. Venkat Sloan MRI BRAIN WO W [...] LAM VELA Date: 2022-05-04 08:42 Normal [facility] PREG QUANT HCGon 05-04-2022 HCG QUANT <1 Normal [facility] Comment on above: Performed By: #### R F #### [facility] [address] [address] [address] Venkat Sloan HCG RANGE SEE BELOW Normal [facility] Comment on above: Result Comment: 5-50 0.2-1 WEEK 50-500 1-2 WEEKS 100-5,000 2-3 WEEKS 500-10,000 3-4 WEEKS 1,000-50,000 4-5 WEEKS 10,000-100,000 5-6 WEEKS 15,000-200,000 6-8 WEEKS 10,000-100,000 2-3 MONTHS Performed By: #### R F #### [facility] [address] [address] [address] Venkat Sloan XR HYSTEROSALPINGOGRAMon XR HYSTEROSALPINGOGRAM [...] LAM VELA Date: 2022-05-04 16:09 Normal [facility] PROGESTERONEon 04-24-2022 Progesterone 0.4 ng/mL Normal [facility] Comment on above: Result Comment: Foll icular phase 0.1 - 0.9 Luteal phase 1.8 - 23.9 Ovulation phase 0.1 - 12.0 First trimester 11.0 - 44.3 Second trimester 25.4 - 83.3 Third trimester 58.7 - 214.0 Postmenopausal 0.0 - 0.1 Performed By: #### I NFLUAB #### [facility] [address] [place] [address] Dr. Venkat Sloan CULTURE SPUTUMon 04-02-2022 CULTURE SPUTUM Culture Observations : NORMAL RESPIRATORY NATALEE. Normal [facility] Comment on above: Performed By: #### R F #### [facility] [address] [place] [address] Dr. Venkat Sloan SPUTUM GRAM STAINon 04-02-19 23 COMMENTS Normal [facility] Comment on above: Performed By: #### R F #### [facility] [address] [place] [address] Dr. Venkat Sloan DIPHTHEROIDS Normal [facility] Comment on above: Performed By: #### R F #### [facility] [address] [place] [address] Dr. Venkat Sloan EPITHELIALS <25 Normal [facility] Comment on above: Performed By: #### R F #### [facility] [address] [place] [address] Dr. Venkat Sloan FUNGAL ELEMENTS Normal [facility] Comment on above: Performed By: #### R F #### [facility] [address] [place] [address] Dr. Venkat Sloan GRAM NEG BACILLI RARE Normal [facility] Comment on above: Performed By: #### R F #### [facility] [address] [place] [address] Dr. Venkat Sloan GRAM NEG DIPPLOCOCCI Normal [facility] Comment on above: Performed By: #### R F #### [facility] [address] [place] [address] Dr. Venkat Sloan GRAM POS BACILLI Normal [facility] Comment on above: Performed By: #### R F #### [facility] [address] [place] [address] Dr. Venkat Sloan GRAM POSITIVE COCCI RARE Normal [facility] Comment on above: Performed By: #### R F #### [facility] [address] [address] [address] Venkat Sloan WBC (Bld) [#/Vol] 10*3/uL Normal [facility] Comment on above: Performed By: #### R F #### [facility] [address] [place] [address] Dr. Venkat Sloan Covid-19 PCR (CVDTB)on SARS-CoV-2 (COVID-19) RNA SHIRIN+probe Ql (Unsp spec) Not detected Normal NOT DETECTED [facility] Comment on above: Result Comment: This test is not yet approved or cleared by the [place] FDA. When there are no FDA-approved or cleared tests available, and other criteria are met, FDA can make tests available under an emergency access mechanism called an Emergency Use Authorization (EUA). The EUA for this test is supported by the [employer] Architect of Health and Human Service's (HHS's) declaration [...] SARS-CoV-2. Performed By: #### P REGQNT #### [facility] [address] [place] [address] Dr. Venkat Sloan INFLUENZA A AND B AGon 04-01 [facility] SEE BELOW Normal [facility] Comment on above: Result Comment: Nega tive for Flu A protein angiten. Infection due to Flu A cannot be ruled out. Flu A angiten in the sample may be below the detection limit of the test. Performed By: #### I NFLUAB #### [facility] [address] [place] [address] Dr. Venkat Sloan [facility] Normal [facility] Comment on above: Result Comment: Nega tive for Flu B protein antigen. Infection due to Flu B cannot be ruled out. Flu B antigen in the sample may be below the detection limit of the test. Performed By: #### I NFLUAB #### [facility] [address] [place] [address] Dr. Venkat Sloan INFLUENZA A AG Negative Normal NEGATIVE SEE COMMENT [facility] Comment on above: Performed By: #### I NFLUAB #### [facility] [address] [place] [address] Dr. Venkat Sloan INFLUENZA B AG Negative Normal NEGATIVE SEE COMMENT [facility] Comment on above: Performed By: #### I NFLUAB #### [facility] [address] [place] [address] Dr. Venkat Sloan XR CHEST 2 Von [...] [address] Date: 2022-03-24 12:33 Normal [facility]25 SARS-CoV-2 (COVID-19) RNA SHIRIN+probe Ql (Unsp spec) Not detected Normal NOT DETECTED [facility] Comment on above: Result Comment: When [...] for this test is supported by the [employer] Architect of Health and Human Service's declaration that [...] used). Performed By: #### R F #### [facility] [address] [place] [address] Dr. Venkat Sloan INFLUENZA A AND B [facility] 03-15 [facility] SEE BELOW Normal [facility] Comment on above: Result Comment: Nega tive for Flu A protein angiten. Infection due to Flu A cannot be ruled out. Flu A angiten in the sample may be below the detection limit of the test. Performed By: #### I NFLUAB #### [facility] [address] [place] [address] Dr. Venkat Sloan [facility] SEE BELOW Normal [facility] Comment on above: Result Comment: Nega tive for Flu B protein antigen. Infection due to Flu B cannot be ruled out. Flu B antigen in the sample may be below the detection limit of the test. Performed By: #### I NFLUAB #### [facility] [address] [place] [address] Dr. Venkat Sloan INFLUENZA A AG Negative Normal NEGATIVE SEE COMMENT [facility] Comment on above: Performed By: #### I NFLUAB #### [facility] [address] [place] [address] Dr. Venkat Sloan INFLUENZA B AG Negative Normal NEGATIVE SEE COMMENT [facility] Comment on above: Performed By: #### I NFLUAB #### [facility] [address] [place] [address] Dr. Venkat Sloan INTERNAL CONTROLS Within Normal Limits Normal Wi thin Normal Limits [facility] Comment on above: Performed By: #### I NFLUAB #### [facility] [address] [address] [address] Venkat Sloan Covid-19 PCR ([facility])on 02-25 SARS-CoV-2 (COVID-19) RNA SHIRIN+probe Ql (Unsp spec) Not detected Normal NOT DETECTED [facility] Comment on above: Result Comment: When [...] for this test is supported by the [place] of Health and Human Service's declaration that [...] used). Performed By: #### I NFLUAB #### [facility] [address] [place] [address] Dr. Venkat Sloan INFLUENZA A AND B AGon 03-12 [facility] SEE BELOW Normal [facility] Comment on above: Result Comment: Nega tive for Flu A protein angiten. Infection due to Flu A cannot be ruled out. Flu A angiten in the sample may be below the detection limit of the test. Performed By: #### I NFLUAB #### [facility] [address] [address] [address] Venkat [facility] SEE BELOW Normal [facility] Comment on above: Result Comment: Nega tive for Flu B protein antigen. Infection due to Flu B cannot be ruled out. Flu B antigen in the sample may be below the detection limit of the test. Performed By: #### I NFLUAB #### [facility] [address] [address] [address] Venkat Sloan INFLUENZA A AG Negative Normal NEGATIVE SEE COMMENT [facility] Comment on above: Performed By: #### I NFLUAB #### [facility] [address] [address] [address] Venkat Sloan INFLUENZA B AG Negative Normal NEGATIVE SEE COMMENT [facility] Comment on above: Performed By: #### I NFLUAB #### [facility] [address] [address] [address] Venkat Sloan INTERNAL CONTROLS Within Normal Limits Normal Wi thin Normal Limits [facility] Comment on above: Performed By: #### I NFLUAB #### [facility] [address] [address] [address] Venkat Sloan PROGESTERONEon 02-20-2022 Progesterone 0.3 ng/mL Normal [facility] Comment on above: Result Comment: Foll icular phase 0.1 - 0.9 Luteal phase 1.8 - 23.9 Ovulation phase 0.1 - 12.0 First trimester 11.0 - 44.3 Second trimester 25.4 - 83.3 Third trimester 58.7 - 214.0 Postmenopausal 0.0 - 0.1 Performed By: #### R F #### [facility] [address] [place] [address] Dr. Venkat Sloan ACTH STIMULATIONon 2 Andros Baseline 49 ng/dL Normal 41-262 [facility] Comment on above: Performed By: #### R F #### [facility] [address] [place] [address] Dr. Venkat Sloan Andros Stimulated 82 ng/dL Normal Not Estab. [facility] Comment on above: Performed By: #### R F #### [facility] [address] [address] [address] Venkat Sloan Covid-19 PCR ([facility])on 01-26 SARS-CoV-2 (COVID-19) RNA SHIRIN+probe Ql (Unsp spec) Not detected Normal NOT DETECTED [facility] Comment on above: Result Comment: This test is not yet approved or cleared by the [place] FDA. When there are no FDA-approved or cleared tests available, and other criteria are met, FDA can make tests available under an emergency access mechanism called an Emergency Use Authorization (EUA). The EUA for this test is supported by the [employer] Architect of Health and Human Service's (HHS's) declaration [...] SARS-CoV-2. Performed By: #### I NFLUAB #### [facility] [address] [place] [address] Dr. Venkat Sloan INFLUENZA A AND B [facility] 02-10 [facility] SEE BELOW Normal [facility] Comment on above: Result Comment: Nega tive for Flu A protein angiten. Infection due to Flu A cannot be ruled out. Flu A angiten in the sample may be below the detection limit of the test. Performed By: #### P REGQNT #### [facility] [address] [place] [address] Dr. [facility]kat [facility] Normal [facility] Comment on above: Result Comment: Nega tive for Flu B protein antigen. Infection due to Flu B cannot be ruled out. Flu B antigen in the sample may be below the detection limit of the test. Performed By: #### P REGQNT #### [facility] [address] [place] [address] Dr. Venkat Sloan INFLUENZA A AG Negative Normal NEGATIVE SEE COMMENT [facility] Comment on above: Performed By: #### P REGQNT #### [facility] [address] [place] [address] Dr. Venkat Sloan INFLUENZA B AG Negative Normal NEGATIVE SEE COMMENT [facility] Comment on above: Performed By: #### P REGQNT #### [facility] [address] [address] [address] Venkat Sloan INTERNAL CONTROLS Within Normal Limits Normal Wi thin Normal Limits [facility] Comment on above: Performed By: #### P REGQNT #### [facility] [address] [address] [address] Venkat Sloan DHEA SERUMon 01-19-2022 Dehydroepiandrosterone (DHEA) 82 ng/dL Normal 31-701 [facility] Comment on above: Result Comment: Age [...] [birth year] Performed By: #### T SH #### [facility] [address] [place] [address] Dr. Venkat Sloan DHEA-SULFATEon 01-14-2022 DHEA-Sulfate 34.0 ug/dL Critically low 84.8-378.0 [facility] Comment on above: Performed By: #### R F #### [facility] [address] [place] [address] Dr. Venkat Sloan FSHon 01-14-2022 FSH 2.2 mIU/mL Normal [facility] Comment on above: Result Comment: Adul t Female: Follicular phase 3.5 - 12.5 Ovulation phase 4.7 - 21.5 Luteal phase 1.7 - 7.7 Postmenopausal 25.8 - 134.8 Performed By: #### L BCFSH #### [facility] [address] [place] [address] Dr. Venkat Sloan LUTEINIZING HORMONE (LH)on 1 LH 5.1 mIU/mL Normal [facility] Comment on above: Result Comment: Adul t Female: Follicular phase 2.4 - 12.6 Ovulation phase 14.0 - 95.6 Luteal phase 1.0 - 11.4 Postmenopausal 7.7 - 58.5 Performed By: #### I NFLUAB #### [facility] [address] [place] [address] Dr. Venkat Sloan PROLACTINon 01-14-2022 Prolactin 8.0 ng/mL Normal 4.8-23.3 [facility] Comment on above: Performed By: #### P ROLAC #### [facility] [address] [place] [address] Dr. Venkat Sloan CBC AUTO DIFFon 01-13-2022 BASO # 0.0 103/ul Normal 0.0-0.1 [facility] Comment on above: Performed By: #### T SH #### [facility] [address] [place] [address] Dr. Venkat Sloan Basophils/100 WBC (Bld) 0.4 % Normal 0.2-2.0 [facility] Comment on above: Performed By: #### T SH #### [facility] [address] [place] [address] Dr. Venkat Sloan EO # 0.1 103/ul Normal 0.0-0.7 [facility] Comment on above: Performed By: #### T SH #### [facility] [address] [place] [address] Dr. Venkat Sloan Eosinophils/100 WBC (Bld) 1.2 % Normal 0.9-7.0 [facility] Comment on above: Performed By: #### T SH #### [facility] [address] [place] [address] Dr. Venkat Sloan Erythrocyte distribution width (RBC) [Ratio] 12.7 % Normal 11.0-15.0 [facility] Comment on above: Performed By: #### T SH #### [facility] [address] [place] [address] Dr. Venkat Sloan Hematocrit (Bld) [Volume fraction] 41.1 % Normal 36.0-48.0 [facility] Comment on above: Performed By: #### T SH #### [facility] [address] [place] [address] Dr. Venkat Sloan Hemoglobin (Bld) [Mass/Vol] 13.1 g/dL Normal 12.0-16.0 [facility] Comment on above: Performed By: #### T SH #### [facility] [address] [place] [address] Dr. Venkat Sloan IG # 0.03 10e3/ul Normal 0.00-0.03 [facility] Comment on above: Performed By: #### T SH #### [facility] [address] [place] [address] Dr. Venkat Sloan IG % 0.3 % Normal 0.0-0.5 [facility] Comment on above: Performed By: #### T SH #### [facility] [address] [place] [address] Dr. Venkat Sloan LYMPH # 1.6 103/ul Normal 1.2-3.8 [facility] Comment on above: Performed By: #### T SH #### [facility] [address] [place] [address] Dr. Venkat Sloan Lymphocytes/100 WBC (Bld) 15.0 % Critically low 20.5-60.0 [facility] Comment on above: Performed By: #### T SH #### [facility] [address] [place] [address] Dr. Venkat Sloan MANUAL DIFF REQ NO Normal [facility] Comment on above: Performed By: #### T SH #### [facility] [address] [place] [address] Dr. Venkat Sloan MCH (RBC) [Entitic mass] 28.5 pg Normal 26.7-34.0 [facility] Comment on above: Performed By: #### T SH #### [facility] [address] [place] [address] Dr. Venkat Sloan MCHC (RBC) [Mass/Vol] 31.9 g/dL Normal 29.9-35.2 [facility] Comment on above: Performed By: #### T SH #### [facility] [address] [place] [address] Dr. Veknat Sloan MCV (RBC) [Entitic vol] 89.3 fL Normal 81.0-99.0 [facility] Comment on above: Performed By: #### T SH #### [facility] [address] [place] [address] Dr. Venkat Sloan MONO # 0.9 103/ul Critically high 0.3-0.8 [facility] Comment on above: Performed By: #### T SH #### [facility] [address] [address] [address] Venkat Sloan Monocytes/100 WBC (Bld) 8.8 % Normal 1.7-12.0 [facility] Comment on above: Performed By: #### T SH #### [facility] [address] [address] [address] Venkat Sloan NEUT # 7.9 103/ul Critically high 1.4-6.5 [facility] Comment on above: Performed By: #### T SH #### [facility] [address] [address] [address] Venkat Sloan Neutrophils/100 WBC (Bld) 74.3 % Normal 43.0-75.0 [facility] Comment on above: Performed By: #### T SH #### [facility] [address] [place] [address] Dr. Venkat Sloan Platelet mean volume (Bld) [Entitic vol] 9.2 fL Critically low 9.5-13.5 [facility] Comment on above: Performed By: #### T SH #### [facility] [address] [place] [address] Dr. Venkat Sloan PLT 300 103/ul Normal 150-450 [facility] Comment on above: Performed By: #### T SH #### [facility] [address] [place] [address] Dr. Venkat Sloan RBC 4.60 106/ul Normal 4.20-5.40 [facility] Comment on above: Performed By: #### T SH #### [facility] [address] [place] [address] Dr. Venkat Sloan WBC 10.7 103/ul Normal 4.0-11.0 [facility] Comment on above: Performed By: #### T SH #### [facility] [address] [place] [address] Dr. Venkat Sloan GLYCOHEMOGLOBIN A1Con 2021 ADA RECOMMENDATION SEE BELOW Normal [facility] Comment on above: Result Comment: ADA RECOMMENDED LIMIT 4.0 - 6.0 ADA THERAPEUTIC TARGET < 7.0 ACTION SUGGESTED > 7.0 Performed By: #### P REGQNT #### [facility] [address] [place] [address] Dr. Venkat Sloan Glucose [Mass/Vol] 100 mg/dL Normal [facility] Comment on above: Performed By: #### P REGQNT #### [facility] [address] [place] [address] Dr. Venkat Sloan HbA1c (Bld) [Mass fraction] 5.1 % Normal 4.5-6.2 [facility] Comment on above: Performed By: #### P REGQNT #### [facility] [address] [place] [address] Dr. Venkat Sloan TSHon 01-13-2022 TSH 1.098 uIU/mL Normal 0.358-3.740 [facility] Comment on above: Performed By: #### T SH #### [facility] [address] [place] [address] Dr. Venkat Sloan [facility]26 SARS-CoV-2 (COVID-19) RNA SHIRIN+probe Ql (Unsp spec) Not detected Normal NOT DETECTED [facility] Comment on above: Result Comment: This test is not yet approved or cleared by the [place] FDA. When there are no FDA-approved or cleared tests available, and other criteria are met, FDA can make tests available under an emergency access mechanism called an Emergency Use Authorization (EUA). The EUA for this test is supported by the Webmethod[employer] Architect of Health and Human Service's (HHS's) declaration [...] SARS-CoV-2. Performed By: #### I NFLUAB #### [facility] [address] [address] [address] Venkat Sloan PREG QUANT HCGon 12-24-2021 HCG QUANT <1 Normal [facility] Comment on above: Performed By: #### P REGQNT #### [facility] [address] [address] [address] Venkat Sloan HCG RANGE SEE BELOW Normal [facility] Comment on above: Result Comment: 5-50 0.2-1 WEEK 50-500 1-2 WEEKS 100-5,000 2-3 WEEKS 500-10,000 3-4 WEEKS 1,000-50,000 4-5 WEEKS 10,000-100,000 5-6 WEEKS 15,000-200,000 6-8 WEEKS 10,000-100,000 2-3 MONTHS Performed By: #### P REGQNT #### [facility] [address] [address] [address] Venkat Sloan HCG-BETA SUBUNIT QUANTon hCG,Beta Subunit,Qnt,Serum <1 Normal [facility] Comment on above: Result Comment: Fema le (Non-) 0 - 5 (Postmenopausal) 0 - 8 . Female () Weeks of Gestation 3 6 - 71 4 10 - 750 5 217 - 7138 6 158 - 02703 7 [phone] 8 [phone] -[phone] 9 [phone] 10 82758 -[phone] 12 95732 -[phone] 14 98235 - 05742 15 79515 - 83527 16 3109 - 02672 17 1169 - 99857 18 4914 - [phone] Aj ECLIA methodology Performed By: #### T SH #### [facility] [address] [place] [address] Dr. Venkat Sloan BRETT by IFAon 09-29-2021 Antinuclear Antibodies, IFA Negative Normal [facility] Comment on above: Result Comment: Nega tive <1:80 Borderline 1:80 Positive >1:80 ICAP nomenclature: AC-0 For more information about Hep-2 cell patterns use ANApatterns.org, the official website for the International Consensus on Antinuclear Antibody (BRETT) Patterns (ICAP). Performed By: #### A NAIFA #### [facility] [address] [place] [address] Dr. Venkat Sloan INSULINon 09-29-2021 Insulin 11.1 uIU/mL Normal 2.6-24.9 [facility] Comment on above: Performed By: #### T SH #### [facility] [address] [place] [address] Dr. Venkat Sloan ANTISTREPTOLYSIN O AB (ASO)o n 09-27-2021 Antistreptolysin O Ab <20.0 Normal 0.0-200.0 [facility] Comment on above: Performed By: #### P REGQNT #### [facility] [address] [place] [address] Dr. Venkat Sloan RHEUMATOID FACTORon 09-28-19 RA Latex Turbid. <10.0 Normal <14.0 [facility] Comment on above: Performed By: #### R F #### [facility] [address] [place] [address] Dr. Venkat Sloan CBC AUTO DIFFon 09-26-2021 BASO # 0.0 103/ul Normal 0.0-0.1 [facility] Comment on above: Performed By: #### T SH #### [facility] [address] [place] [address] Dr. Venkat Sloan Basophils/100 WBC (Bld) 0.3 % Normal 0.2-2.0 [facility] Comment on above: Performed By: #### T SH #### [facility] [address] [place] [address] Dr. Venkat Sloan EO # 0.1 103/ul Normal 0.0-0.7 [facility] Comment on above: Performed By: #### T SH #### [facility] [address] [place] [address] Dr. Venkat Sloan Eosinophils/100 WBC (Bld) 1.8 % Normal 0.9-7.0 [facility] Comment on above: Performed By: #### T SH #### [facility] [address] [place] [address] Dr. Venkat Sloan Erythrocyte distribution width (RBC) [Ratio] 12.9 % Normal 11.0-15.0 [facility] Comment on above: Performed By: #### T SH #### [facility] [address] [place] [address] Dr. Venkat Sloan Hematocrit (Bld) [Volume fraction] 39.8 % Normal 36.0-48.0 [facility] Comment on above: Performed By: #### T SH #### [facility] [address] [place] [address] Dr. Venkat Sloan Hemoglobin (Bld) [Mass/Vol] 12.7 g/dL Normal 12.0-16.0 [facility] Comment on above: Performed By: #### T SH #### [facility] [address] [place] [address] Dr. Venkat Sloan IG # 0.02 10e3/ul Normal 0.00-0.03 [facility] Comment on above: Performed By: #### T SH #### [facility] [address] [place] [address] Dr. Venkat Sloan IG % 0.3 % Normal 0.0-0.5 [facility] Comment on above: Performed By: #### T SH #### [facility] [address] [place] [address] Dr. Venkat Sloan LYMPH # 1.5 103/ul Normal 1.2-3.8 [facility] Comment on above: Performed By: #### T SH #### [facility] [address] [place] [address] Dr. Venkat Sloan Lymphocytes/100 WBC (Bld) 21.5 % Normal 20.5-60.0 [facility] Comment on above: Performed By: #### T SH #### [facility] [address] [place] [address] Dr. Venkat Sloan MANUAL DIFF REQ NO Normal [facility] Comment on above: Performed By: #### T SH #### [facility] [address] [place] [address] Dr. Venkat Sloan MCH (RBC) [Entitic mass] 28.5 pg Normal 26.7-34.0 [facility] Comment on above: Performed By: #### T SH #### [facility] [address] [place] [address] Dr. Venkat Sloan MCHC (RBC) [Mass/Vol] 31.9 g/dL Normal 29.9-35.2 [facility] Comment on above: Performed By: #### T SH #### [facility] [address] [place] [address] Dr. Venkat Sloan MCV (RBC) [Entitic vol] 89.2 fL Normal 81.0-99.0 [facility] Comment on above: Performed By: #### T SH #### [facility] [address] [place] [address] Dr. Venkat Sloan MONO # 0.5 103/ul Normal 0.3-0.8 [facility] Comment on above: Performed By: #### T SH #### [facility] [address] [place] [address] Dr. Venkat Sloan Monocytes/100 WBC (Bld) 7.6 % Normal 1.7-12.0 [facility] Comment on above: Performed By: #### T SH #### [facility] [address] [place] [address] Dr. Venkat Sloan NEUT # 4.9 103/ul Normal 1.4-6.5 [facility] Comment on above: Performed By: #### T SH #### [facility] [address] [place] [address] Dr. Venkat Sloan Neutrophils/100 WBC (Bld) 68.5 % Normal 43.0-75.0 [facility] Comment on above: Performed By: #### T SH #### [facility] [address] [place] [address] Dr. Venkat Sloan Platelet mean volume (Bld) [Entitic vol] 8.8 fL Critically low 9.5-13.5 [facility] Comment on above: Performed By: #### T SH #### [facility] [address] [address] [address] Venkat Sloan PLT 297 103/ul Normal 150-450 [facility] Comment on above: Performed By: #### T SH #### [facility] [address] [place] [address] Dr. Venkat Sloan RBC 4.46 106/ul Normal 4.20-5.40 [facility] Comment on above: Performed By: #### T SH #### [facility] [address] [place] [address] Dr. Venkat Sloan WBC 7.1 103/ul Normal 4.0-11.0 [facility] Comment on above: Performed By: #### T SH #### [facility] [address] [place] [address] Dr. Venkat Sloan CRPon 09-26-2021 CRP [Mass/Vol] mg/L Normal <=1.0 [facility] Comment on above: Performed By: #### P REGQNT #### [facility] [address] [place] [address] Dr. Venkat Sloan FREE THYROXINE INDEX T7on FTI 2.71 Normal 1.30-4.50 [facility] Comment on above: Performed By: #### P REGQNT #### [facility] [address] [place] [address] Dr. Venkat Sloan T3U 33.0 % Normal 30.0-39.0 [facility] Comment on above: Performed By: #### P REGQNT #### [facility] [address] [place] [address] Dr. Venkat Sloan T4 [Mass/Vol] 8.20 ug/dL Normal 4.80-13.90 [facility] Comment on above: Performed By: #### P REGQNT #### [facility] [address] [place] [address] Dr. Venkat Sloan GLYCOHEMOGLOBIN A1Con 2021 ADA RECOMMENDATION SEE BELOW Normal [facility] Comment on above: Result Comment: ADA RECOMMENDED LIMIT 4.0 - 6.0 ADA THERAPEUTIC TARGET < 7.0 ACTION SUGGESTED > 7.0 Performed By: #### I NFLUAB #### [facility] [address] [address] [address] Venkat Sloan Glucose [Mass/Vol] 105 mg/dL Normal [facility] Comment on above: Performed By: #### I NFLUAB #### [facility] [address] [address] [address] Venkat Sloan HbA1c (Bld) [Mass fraction] 5.3 % Normal 4.5-6.2 [facility] Comment on above: Performed By: #### I NFLUAB #### [facility] [address] [place] [address] Dr. Venkat Sloan IRONon 09-26-2021 Iron [Mass/Vol] 49.0 ug/dL Critically low 50.0-170.0 [facility] Comment on above: Performed By: #### P REGQNT #### [facility] [address] [place] [address] Dr. Venkat Sloan LIPID PROFILEon 09-26-2021 CHOL-HDL RATIO NORM SEE BELOW Normal [facility] Comment on above: Result Comment: 3.3 - 4.4 LOW RISK 4.4 - 7.1 AVERAGE RISK 7.1 - 11.0 MODERATE RISK >11.0 HIGH RISK Performed By: #### P REGQNT #### [facility] [address] [place] [address] Dr. Venkat Sloan Cholesterol [Mass/Vol] 197 mg/dL Normal <=[address] [facility] Comment on above: Performed By: #### P REGQNT #### [facility] [address] [place] [address] Dr. Venkat Sloan Cholesterol in HDL [Mass/Vol] 64 mg/dL Critically high 40-60 [facility] Comment on above: Performed By: #### P REGQNT #### [facility] [address] [place] [address] Dr. Venkat Sloan Cholesterol in LDL [Mass/Vol] 123.4 mg/dL Normal [facility] Comment on above: Performed By: #### P REGQNT #### [facility] [address] [address] [address] Venkat Sloan Cholesterol.total/Choles terol in HDL [Mass ratio] 3.1 {ratio} Normal [facility] Comment on above: Performed By: #### P REGQNT #### [facility] [address] [place] [address] Dr. Venkat Slaon HDL NORMAL > or = 60 mg/dl - LO W CARDIOVASCULAR RISK <40 mg/dl - HIGH CARDIOVASCULAR RISK Normal [facility] Comment on above: Performed By: #### P REGQNT #### [facility] [address] [place] [address] Dr. Venkat Sloan LDL CALC NORMAL SEE BELOW Normal [facility] Comment on above: Result Comment: <100 mg/dl OPTIMAL 100 - 129 mg/dl NEAR OR ABOVE OPTIMAL 130 - 159 mg/dl BORDERLINE HIGH 160 - 189 mg/dl HIGH >190 mg/dl VERY HIGH Performed By: #### P REGQNT #### [facility] [address] [place] [address] Dr. Venkat Sloan Triglyceride [Mass/Vol] 48 mg/dL Normal <=150 T [facility] Comment on above: Performed By: #### P REGQNT #### [facility] [address] [place] [address] Dr. Venkat Sloan VLDL CALC 9.6 mg/dL Normal [facility] Comment on above: Performed By: #### P REGQNT #### [facility] [address] [place] [address] Dr. Venkat Sloan PROF 14(COMP METB)on 022 Albumin [Mass/Vol] 4.0 g/dL Normal 3.4-5.0 [facility] Comment on above: Performed By: #### I NFLUAB #### [facility] [address] [place] [address] Dr. Venkat Sloan Albumin/Globulin [Mass ratio] 1.3 {ratio} Normal [facility] Comment on above: Performed By: #### I NFLUAB #### [facility] [address] [place] [address] Dr. Venkat Sloan ALP [Catalytic activity/Vol] 58 U/L Normal 46-116 [facility] Comment on above: Performed By: #### I NFLUAB #### [facility] [address] [address] [address] Venkat Sloan ALT [Catalytic activity/Vol] 20 U/L Normal 14-59 [facility] Comment on above: Performed By: #### I NFLUAB #### [facility] [address] [address] [address] Venkat Sloan Anion gap [Moles/Vol] 10.4 mmol/L Normal Th [facility] Comment on above: Performed By: #### I NFLUAB #### [facility] [address] [address] [address] Venkat Sloan AST [Catalytic activity/Vol] 11 U/L Critically low 15-37 [facility] Comment on above: Performed By: #### I NFLUAB #### [facility] [address] [place] [address] Dr. Venkat Sloan Bilirubin [Mass/Vol] 0.8 mg/dL Normal 0.2-1.0 [facility] Comment on above: Performed By: #### I NFLUAB #### [facility] [address] [place] [address] Dr. Venkat Sloan Calcium [Mass/Vol] 9.0 mg/dL Normal 8.5-10.1 [facility] Comment on above: Performed By: #### I NFLUAB #### [facility] [address] [place] [address] Dr. Venkat Sloan Chloride [Moles/Vol] 106 mmol/L Normal 98-107 [facility] Comment on above: Performed By: #### I NFLUAB #### [facility] [address] [address] [address] Venkat Sloan CO2 [Moles/Vol] 27.0 mmol/L Normal 21.0-32.[address] [facility] Comment on above: Performed By: #### I NFLUAB #### [facility] [address] [place] [address] Dr. Venkat Sloan Creatinine [Mass/Vol] 0.70 mg/dL Normal 0.55-1.02 [facility] Comment on above: Performed By: #### I NFLUAB #### [facility] [address] [address] [address] Venkat Sloan EGFR-AF GIBRALTARIAN >60 Normal >=[address] [facility] Comment on above: Performed By: #### I NFLUAB #### [facility] [address] [address] [address] Venkat Sloan EGFR-NON AF GIBRALTARIAN >60 Normal >=60 [facility] Comment on above: Performed By: #### I NFLUAB #### [facility] [address] [address] [address] Venkat Sloan Globulin (S) [Mass/Vol] 3.2 g/dL Normal T [facility] Comment on above: Performed By: #### I NFLUAB #### [facility] [address] [place] [address] Dr. Venkat Sloan Glucose [Mass/Vol] 92 mg/dL Normal 74-106 [facility] Comment on above: Performed By: #### I NFLUAB #### [facility] [address] [address] [address] Venkat Sloan Potassium [Moles/Vol] 4.4 mmol/L Normal 3.5-5.1 [facility] Comment on above: Performed By: #### I NFLUAB #### [facility] [address] [address] [address] Venkat Sloan Protein [Mass/Vol] 7.2 g/dL Normal 6.4-8.2 [facility] Comment on above: Performed By: #### I NFLUAB #### [facility] [address] [address] [address] Venkat Sloan Sodium [Moles/Vol] 139 mmol/L Normal 136-145 [facility] Comment on above: Performed By: #### I NFLUAB #### [facility] [address] [address] [address] Venkat Sloan Urea nitrogen [Mass/Vol] 13.0 mg/dL Normal 7.0-18.0 [facility] Comment on above: Performed By: #### I NFLUAB #### [facility] [address] [place] [address] Dr. Venkat Sloan Urea nitrogen/Creatinine [Mass ratio] 18.6 mg/mg Normal [facility] Comment on above: Performed By: #### I NFLUAB #### [facility] [address] [place] [address] Dr. Venkat Sloan TSHon 09-26-2021 TSH 1.318 uIU/mL Normal 0.358-3.740 [facility] Comment on above: Performed By: #### P REGQNT #### [facility] [address] [place] [address] Dr. Venkat Sloan URIC ACID SERUMon 09-26-2021 Urate [Mass/Vol] 3.9 mg/dL Normal 2.6-6.[address] [facility] Comment on above: Performed By: #### P REGQNT #### [facility] [address] [place] [address] Dr. Venkat Sloan XR CSPINE MIN 4 [...] DUDLEY HERNÁNDEZ Date: 2021-09-24 21:16 Normal [facility] PREG QUANT HCGon 08-17-2021 HCG QUANT <1 Normal [facility] Comment on above: Performed By: #### I NFLUAB #### [facility] [address] [place] [address] Dr. Venkat Sloan HCG RANGE SEE BELOW Normal [facility] Comment on above: Result Comment: 5-50 0-1 WEEK 40-300 1-2 WEEKS 100-1,000 2-3 WEEKS 500-6,000 3-4 WEEKS 5,000-200,000 1-2 MONTHS 10,000-100,000 2-3 MONTHS 3,000-50,000 2ND TRIMESTER 1,000-50,000 3RD TRIMESTER Performed By: #### I NFLUAB #### [facility] [address] [place] [address] Dr. eVnkat Sloan US PELVIS AND TRANSVAGon US PELVIS [...] DUDLEY HERNÁNDEZ Date: 2021-08-17 07:01 Normal [facility] COVID Quick Testingon 2020 Result Negative [facility] Other Vital Signs Date Time Vital Sign Value Performing Clinician Facility 05-22-2023 09:270500 Body height 154.94 cm [facility] 05-22-2023 09:0500 Body mass index (BMI) [Ratio] 30.8 kg/m2 [facility] 05-22-2023 09:-050 Body temperature 98.1 [degF] [facility] 05-22-2023 09:0500 Body weight 74.04 kg [facility] 05-22-2023 09:27-0500 Heart rate 78 /min [facility] 05-22-2023 09:27-0500 Respiratory rate 16 /min [facility] 05-22-2023 09:27-0500 SaO2% (BldA) [Mass fraction] 98 % [facility] 05-10-2023 15:14-0500 Body mass index (BMI) [Ratio] 30.04 kg/m2 Ricardo Jennifer DO Work Phone: [facility] 05-10-2023 15:14-0500 Body weight 72.12 kg Ricardo Jennifer DO Work Phone: [facility] 05-10-2023 15:14-0500 Diastolic blood pressure 70 mm[Hg] Ricardo Jennifer DO Work Phone: [facility] 05-10-2023 15:14-0500 Systolic blood pressure 110 mm[Hg] Ricardo Jennifer DO Work Phone: [facility] 01-27-2021 18:45-0400 Body height 154.94 cm Mohini Juan Other [facility] Other 01-27-2021 18:45-0400 Body mass index (BMI) [Ratio] 28.34 kg/m2 Mohini Juan Other [facility] Other 01-27-2021 18:45-0400 Body temperature 96.4 [degF] Mohini Jaun Other [facility] Other 01-27-2021 18:45-0400 Body weight 68.04 kg Mohini Juan Other [facility] Other 01-27-2021 18:45-0400 Respiratory rate 18 /min Mohini Juan Other [facility] Other 01-27-2021 18:45-0400 SaO2% (BldA) [Mass fraction] 99 % Mohini Martinez Other [facility] Other 12-22-2020 11:45-0400 Body height 154.94 cm Dudley Freeman Other [facility] Other 12-22-2020 11:45-0400 Body mass index (BMI) [Ratio] 28.34 kg/m2 Dudley Freeman Other [facility] Other 12-22-2020 11:45-0400 Body weight 68.04 kg Dudley Freeman Other [facility] Other Encounters Encounter Date Encounter Type Care Provider Facility Start: 06-30-2023 End: 06-30-2023 ambulatory RICARDO JENNIFER Not Available Start: 06-13-2023 End: 06-13-2023 ambulatory RICARDO JENNIFER Not Available Start: 05-26-2023 End: 05-26-2023 ambulatory RICARDO JENNIFER Not Available Start: 05-22-2023 End: 05-22-2023 ambulatory [facility] Work Phone: Start: 05-22-2023 End: 05-22-2023 Patient encounter procedure [facility] Work Phone: [...] preprocedural examination DR RICARDO RODRIGUEZ . [facility] Start: 07-08-2022 End: 07-08-[address] [...] without abnormal findings DR IRON GARCIA . [facility] Start: 09-26-2021 End: 09-27-[address] [...] 01-27-2021 End: 01-27-2021 ambulatory Mohini Martinez Other [facility] Other Start: 01-27-2021 Office outpatient vi sit [...] EST Routine [facility] BCP OB [address] [place] [id number] Ricardo Rodriguez, DO [address] [place] [address] [facility] Start: 05-10-2023 End: 05-10-2024 CBC panel - Blood by Automated count CBC Lab Routine Diabetes mellitus screening Expected: 05/10/2023 (Approximate), Expires: 05/10/2024 [facility] Work Phone: Comment on above: Expected: 05/10/2023 (Approximate), Expires: 05/10/2024 Start: 05-10-2023 End: 05-10-2024 Measurement of glucose 1 hour after glucose challenge for glucose tolerance test Glucose tolerance, 1 hour Lab Routine Diabetes mellitus screening Expected: 05/10/2023 (Approximate), Expires: 05/10/2024 [facility] Comment on above: Expected: 05/10/2023 (Approximate), Expires: 05/10/2024 Start: 11-26-2022 Influenza vaccination Influenz a Vaccine (#1) [facility] Immunizations Immunization Date Immunization Notes Care Provider Fa tian 01-25-2022 influenza virus vacc ine, unspecified formulation Ricardo Jennifer DO Work Phone: [facility] Payers Date Payer Category Payer Unknown BCBS BCBS xxxxxx [id number] 2022-Present [phone] [address] [place] [address] [id number] 1993 Unknown [id number] 2.16.840.1.222951.3.579.2.59 1993 Unknown [id number] 2.16.840.1.263028.3.579.2.59 1993 Unknown [id number] 2.16.840.1.640350.3.579.2.593 1993 Unknown [id number] 2.16.840.1.153840.3.579.2.593 1993 Unknown [id number] 2.16.840.1.293607.3.579.2.593 1993 Unknown [id number] 2.16.840.1.046141.3.579.2.593 1993 Unknown [id number] 2.16.840.1.614488.3.579.2.593 1993 Unknown [id number] 2.16.840.1.843944.3.579.2.593 1993 Unknown [id number] 2.16.840.1.343307.3.579.2.593 1993 Unknown [id number] 2.16.840.1.745591.3.579.2.593 1993 Unknown [id number] 2.16.840.1.749523.3.579.2.593 1993 Unknown [id number] 2.16.840.1.216279.3.579.2.59 1993 Unknown [id number] 2.16.840.1.136608.3.579.2.593 1993 Unknown [id number] 2.16.840.1.052141.3.579.2.59 1993 Unknown [id number] 2.16.840.1.782406.3.579.2.593 1993 Unknown [id number] 2.16.840.1.442784.3.579.2.59 1993 Unknown [id number] 2.16.840.1.521859.3.579.2.59 1993 Unknown [id number] 2.16.840.1.982201.3.579.2.593 1993 Unknown [id number] 2.16.840.1.844670.3.579.2.59 1993 Unknown [id number] 2.16.840.1.332511.3.579.2.593 1993 Unknown [id number] 2.16.840.1.568016.3.579.2.593 1993 Unknown [id number] 2.16.840.1.976234.3.579.2.593 1993 Unknown [id number] 2.16.840.1.835624.3.579.2.593 1993 Unknown [id number] 2.16.840.1.034025.3.579.2.593 1993 Unknown [id number] 2.16.840.1.119607.3.579.2.593 1993 Unknown [id number] 2.16.840.1.485639.3.579.2.1259 1993 Unknown [id number] 2.16.840.1.860909.3.579.2.1259 1993 Unknown [id number] 2.16.840.1.591343.3.579.2.1259 1993 Unknown [id number] 2.16.840.1.583804.3.579.2.1259 1993 Unknown [id number] 2.16.840.1.481001.3.579.2.1259 1993 Unknown [id number] 2.16.840.1.489647.3.579.2.1259 1993 Unknown [id number] 2.16.840.1.839544.3.579.2.1259 1959 Unknown [id number] 1959 Unknown [id number] Self-pay Self Pay [id number] Unknown [id number] 2.16. 840.1.278612.19 Unknown MMO [id number] Unknown [place] BC/BS [id number] Social History Date Type Detail Facility Unknown if ever smoked [facility] Other Start: 01-28-2023 Sex Assigned At [facility] Other Start: 01-28-2023 End: 05-22-2023 Tobacco smoking status TNIS Never smoked tobacco [facility] Start: 05-10-2023 [...] nursing note reviewed. Exam conducted with a meteorological engineer present. Vitals: Estimated body mass index is [...] Ricardo Rodriguez DO documented in this encounter [facility] Clinical Note 07-08-2022 Note Date & Type Note Facility 07-08-2022 Note OPERATIVE NOTE OPERATION DATE: 07/08/2022 PROCEDURE: Diagnostic laparoscopy with fulguration of ovarian endometrial implant. PREOPERATIVE DIAGNOSIS: Pelvic pain. POSTOPERATIVE DIAGNOSIS: Pelvic pain. ANESTHESIA: General. SURGEON: Ricardo Rodriguez D.O. ENAMEL FINISHER: DEVIN Miles URINE OUTPUT: Yellow and clear. [...] to Recovery Room in stable condition. [facility] Evaluation note 12-22-2020 Note Date & Type Note Facility 12-22-2020 Evaluation note Encounter Date Diagnosis Assessment Notes Nov, Irritable bowel syndrome with both constipation and diarrhea (ICD-10 - K58.2) LABS INDICATED ABOVE START TRIAL OF DICYCLOMINE 20 BID RTO 4 WEEKS [facility] Other Evaluation note Note Date & Type Note Facility Evaluation note [facility] Other Evaluation note Note Date & Type Note Facility Evaluation note Diagnosis Second trimester state, incidental Diabetes mellitus screening Screening for diabetes mellitus documented in this encounter [facility] Evaluation note Note Date & Type Note Facility Evaluation note No assessment information availa [facility] Work Phone: History general Narrative - Reported Note Date & Type Note Facility History general Narrative - Reported Type Medical History anxiety/depression Medical History IBS Surgical History TONSILLECTOMY [facility] Other History general Narrative - Reported Note Date & Type Note Facility History general Narrative - Reported [facility] Other Summary Purpose Family History No Family [...] and content) DATE CREATED AUTHOR 07/13/2022 [facility] DATE CREATED AUTHOR AUTHOR'S ORGANIZ ATION 07/01/2023 [facility] EP[employer] Care Teams (unrecognized sec tion and content) Direct Sales Professional Relationship Specialty Start Date End Date Iron Garcia MD [address] [place] [address] PCP - General Family Medicine 11/23/22 Team [...] BE BASED ON THE PRIMARY CLINICAL RECORDS. [facility] [employer] [facility]. provides no warranty or guarantee of the accuracy or completeness of information in this document.
--- NOTE | 2023-07-11 17:00 | US_ITS ---
[address] [address] Patient Name: ESTER BRADFORD MRN: [facility]:[id number] date: 1995 Sex: F Assigned Patient Location: [facility] Current Patient Location: Accession/Order Number: [id number] Exam Date: 07/11/2023 17:05 Report Date: 07/12/2023 07:45 At the request of: RICARDO LEGGETT Procedure: US OB BPP w non-stress EXAMINATION: US OB BPP w non-stress HISTORY: JOSESITO INCREASED O40.9XX0 COMPARISON: No relevant comparison available. TECHNIQUE: Ultrasound biophysical profile was performed in the radiology department. FINDINGS: BREATHING MOVEMENTS: 2.0 GROSS BODY MOVEMENTS: 2.0 TONE: 2.0 QUALITATIVE AMNIOTIC FLUID VOLUME: 2.0 PRESENTATION: CEPHALIC HEART RATE: 138.5 bpm H.B./min AMNIOTIC FLUID VOLUME: 16.8 cm cm GESTATIONAL AGE: 34 weeks 3 days CONCLUSION: Total biophysical profile score: 8.0 Electronically authenticated by: DUDLEY HERNÁNDEZ Date: 07/12/2023 07:45
[2023-07-11 17:42] VITALS: BP 120/62; PULSE 67
== END 2023-07-11 18:10 | disposition home or self-care (01) ==
LOC: US 05:52 → FBC 17:00
PROVIDERS: PCP Family Medicine; Visit Provider Obstetrics & Gynecology
DX: O40.9XX0 Polyhydramnios, unspecified trimester, not applicable or unspecified (principal); Z3A.34 34 weeks gestation of pregnancy
CPT/HCPCS: 76818

== ENCOUNTER 2023-07-14 07:30 | Outpatient (OUT) | payer BC, SELFPAY ==
--- OUTSIDE RECORDS SUMMARY | 2023-07-14 07:45 | XMS_ITS | CCD ---
Author Organization [facility] Care Team Providers Care Training Engineer Name Role Phone Lydia Dudley Unavailable [...] Unavailable HOY ., DR PERDUE Consulting Unavailable BALA CYNWYD, DR DUDLEY Emanuel Consulting Unavailable JENNIFER ., DR SILVA Admitting Unavailable JENINFER ., DR SILVA Attending Unavailable HOY ., [...] Unavailable Iron Garcia MD Primary Care Provider [phone] RICARDO RODRIGUEZ Attending Unavailable JENNIFER, RICARDO Attending Unavailable JENNIFER, RICARDO Attending Unavailable JENNIFER, RICARDO Attending Unavailable JENNIFER, RICARDO Attending Unavailable JENNIFER, RICARDO Attending Unavailable JENNIFER, RICARDO Attending Unavailable Medications Current Medications Medication Drug Class(es) Dates Sig (Normalized) Sig (Original) [id number] 200 actuat albuterol 0.09 mg/actuat metered dose [...] DAILY NEEDED FOR NAUSEA 0 02/19/2023 Active Kilgqf72-Essm Fum-Folic Ac-Om3 (One A Day Women's Dha) 28 mg iron- 800 mcg combo pack (1 source) Start: 05-22-2023 Rmdgqz72-Ltjo Fum-Folic Ac-Om3 (One A Day Women's Dha) [...] (COVID-19) RNA SHIRIN+probe Ql (Unsp spec) [facility] Urinalysis macro (dipstick) panel (U)on 05-10-2023 Bilirubin, UA Negative Negative - 4(70) +++ mg/dL [facility] Blood, UA Negative Negative - 50 Jayson/mcL [facility] Clarity, UA Clear [facility] Color, UA Yellow [facility] Glucose, UA Negative Negative - 1999(110) ++++ mg/dL [facility] Interpretation and review of laboratory results Abnormal [facility] Ketones, UA Positive Negative - 160(16) ++++ mg/dL [facility] Comment on above: trace Leukocytes, UA Trace Negative - 500+++ Lolita/mcL [facility] Nitrite, UA Negative Negative - Positive [facility] pH, UA 6.0 5 - 9 [facility] Protein, UA Negative Negative - 1999(20) ++++ mg/dL [facility] Spec Grav, UA 1.030 1 - 1.03 [facility] Urobilinogen, UA 0.2 0.2 - 12 mg/dL [facility] CBC AUTO DIFFon 07-08-2022 BASO # 0.0 103/ul Normal 0.0-0.1 [facility] Comment on above: Performed By: #### R F #### [facility] [address] [address] [address] Venkat Sloan Basophils/100 WBC (Bld) 0.5 % Normal 0.2-2.0 [facility] Comment on above: Performed By: #### R F #### [facility] [address] [place] [address] Dr. Venkat Sloan EO # 0.1 103/ul Normal 0.0-0.7 [facility] Comment on above: Performed By: #### R F #### [facility] [address] [place] [address] Dr. Venkat Sloan Eosinophils/100 WBC (Bld) 1.7 % Normal 0.9-7.0 [facility] Comment on above: Performed By: #### R F #### [facility] [address] [place] [address] Dr. Venkat Sloan Erythrocyte distribution width (RBC) [Ratio] 12.7 % Normal 11.0-15.0 [facility] Comment on above: Performed By: #### R F #### [facility] [address] [place] [address] Dr. Venkat Sloan Hematocrit (Bld) [Volume fraction] 40.4 % Normal 36.0-48.0 [facility] Comment on above: Performed By: #### R F #### [facility] [address] [place] [address] Dr. Venkat Sloan Hemoglobin (Bld) [Mass/Vol] 13.1 g/dL Normal 12.0-16.0 [facility] Comment on above: Performed By: #### R F #### [facility] [address] [place] [address] Dr. Venkat Sloan IG # 0.02 10e3/ul Normal 0.00-0.03 [facility] Comment on above: Performed By: #### R F #### [facility] [address] [place] [address] Dr. Venkat Sloan IG % 0.3 % Normal 0.0-0.5 [facility] Comment on above: Performed By: #### R F #### [facility] [address] [place] [address] Dr. Venkat Sloan LYMPH # 2.0 103/ul Normal 1.2-3.8 [facility] Comment on above: Performed By: #### R F #### [facility] [address] [place] [address] Dr. Venkat Sloan Lymphocytes/100 WBC (Bld) 26.2 % Normal 20.5-60.0 [facility] Comment on above: Performed By: #### R F #### [facility] [address] [place] [address] Dr. Venkat Sloan MANUAL DIFF REQ NO Normal [facility] Comment on above: Performed By: #### R F #### [facility] [address] [place] [address] Dr. Venkat Sloan MCH (RBC) [Entitic mass] 28.4 pg Normal 26.7-34.0 [facility] Comment on above: Performed By: #### R F #### [facility] [address] [place] [address] Dr. Venkat Sloan MCHC (RBC) [Mass/Vol] 32.4 g/dL Normal 29.9-35.2 [facility] Comment on above: Performed By: #### R F #### [facility] [address] [place] [address] Dr. Venkat Sloan MCV (RBC) [Entitic vol] 87.4 fL Normal 81.0-99.0 [facility] Comment on above: Performed By: #### R F #### [facility] [address] [place] [address] Dr. Venkat Sloan MONO # 0.7 103/ul Normal 0.3-0.8 [facility] Comment on above: Performed By: #### R F #### [facility] [address] [place] [address] Dr. Venkat Sloan Monocytes/100 WBC (Bld) 8.8 % Normal 1.7-12.0 [facility] Comment on above: Performed By: #### R F #### [facility] [address] [place] [address] Dr. Venkat Sloan NEUT # 4.8 103/ul Normal 1.4-6.5 [facility] Comment on above: Performed By: #### R F #### [facility] [address] [place] [address] Dr. Venkat Sloan Neutrophils/100 WBC (Bld) 62.5 % Normal 43.0-75.0 [facility] Comment on above: Performed By: #### R F #### [facility] [address] [place] [address] Dr. Venkat Sloan Platelet mean volume (Bld) [Entitic vol] 8.5 fL Critically low 9.5-13.5 [facility] Comment on above: Performed By: #### R F #### [facility] [address] [place] [address] Dr. Venkat Sloan PLT 331 103/ul Normal 150-450 [facility] Comment on above: Performed By: #### R F #### [facility] [address] [place] [address] Dr. Venkat Sloan RBC 4.62 106/ul Normal 4.20-5.40 [facility] Comment on above: Performed By: #### R F #### [facility] [address] [place] [address] Dr. Venkat Sloan WBC 7.7 103/ul Normal 4.0-11.0 [facility] Comment on above: Performed By: #### R F #### [facility] [address] [place] [address] Dr. Venkat Sloan PREG QUANT HCGon 07-08-2022 HCG QUANT <1 Normal [facility] Comment on above: Performed By: #### P REGQNT #### [facility] [address] [place] [address] Dr. Venkat Sloan HCG RANGE SEE BELOW Normal [facility] Comment on above: Result Comment: 5-50 0.2-1 WEEK 50-500 1-2 WEEKS 100-5,000 2-3 WEEKS 500-10,000 3-4 WEEKS 1,000-50,000 4-5 WEEKS 10,000-100,000 5-6 WEEKS 15,000-200,000 6-8 WEEKS 10,000-100,000 2-3 MONTHS Performed By: #### P REGQNT #### [facility] [address] [place] [address] Dr. Venkat Sloan PROGESTERONEon 06-23-2022 Progesterone 5.7 ng/mL Normal [facility] Comment on above: Result Comment: Foll icular phase 0.1 - 0.9 Luteal phase 1.8 - 23.9 Ovulation phase 0.1 - 12.0 First trimester 11.0 - 44.3 Second trimester 25.4 - 83.3 Third trimester 58.7 - 214.0 Postmenopausal 0.0 - 0.1 Performed By: #### T SH #### [facility] [address] [place] [address] Dr. Venkat Sloan PREG QUANT HCGon 05-31-2022 HCG QUANT 1 mIU/mL Normal [facility] Comment on above: Performed By: #### P REGQNT #### [facility] [address] [place] [address] Dr. Venkat Sloan HCG RANGE SEE BELOW Normal [facility] Comment on above: Result Comment: 5-50 0.2-1 WEEK 50-500 1-2 WEEKS 100-5,000 2-3 WEEKS 500-10,000 3-4 WEEKS 1,000-50,000 4-5 WEEKS 10,000-100,000 5-6 WEEKS 15,000-200,000 6-8 WEEKS 10,000-100,000 2-3 MONTHS Performed By: #### P REGQNT #### [facility] [address] [place] [address] Dr. Venkat Sloan PROGESTERONEon 05-21-2022 Progesterone 12.4 ng/mL Normal [facility] Comment on above: Result Comment: Foll icular phase 0.1 - 0.9 Luteal phase 1.8 - 23.9 Ovulation phase 0.1 - 12.0 First trimester 11.0 - 44.3 Second trimester 25.4 - 83.3 Third trimester 58.7 - 214.0 Postmenopausal 0.0 - 0.1 Performed By: #### I NFLUAB #### [facility] [address] [place] [address] Dr. Venkat Sloan MRI BRAIN WO W [...] LAM VELA Date: 2022-05-04 08:42 Normal [facility] PREG QUANT HCGon 05-04-2022 HCG QUANT <1 Normal [facility] Comment on above: Performed By: #### R F #### [facility] [address] [address] [address] Venkat Sloan HCG RANGE SEE BELOW Normal [facility] Comment on above: Result Comment: 5-50 0.2-1 WEEK 50-500 1-2 WEEKS 100-5,000 2-3 WEEKS 500-10,000 3-4 WEEKS 1,000-50,000 4-5 WEEKS 10,000-100,000 5-6 WEEKS 15,000-200,000 6-8 WEEKS 10,000-100,000 2-3 MONTHS Performed By: #### R F #### [facility] [address] [address] [address] Venkat Sloan XR HYSTEROSALPINGOGRAMon XR HYSTEROSALPINGOGRAM [...] LAM VELA Date: 2022-05-04 16:09 Normal [facility] PROGESTERONEon 04-24-2022 Progesterone 0.4 ng/mL Normal [facility] Comment on above: Result Comment: Foll icular phase 0.1 - 0.9 Luteal phase 1.8 - 23.9 Ovulation phase 0.1 - 12.0 First trimester 11.0 - 44.3 Second trimester 25.4 - 83.3 Third trimester 58.7 - 214.0 Postmenopausal 0.0 - 0.1 Performed By: #### I NFLUAB #### [facility] [address] [place] [address] Dr. Venkat Sloan CULTURE SPUTUMon 04-02-2022 CULTURE SPUTUM Culture Observations : NORMAL RESPIRATORY NATALEE. Normal [facility] Comment on above: Performed By: #### R F #### [facility] [address] [place] [address] Dr. Venkat Sloan SPUTUM GRAM STAINon 04-02-19 23 COMMENTS Normal [facility] Comment on above: Performed By: #### R F #### [facility] [address] [place] [address] Dr. Venkat Sloan DIPHTHEROIDS Normal [facility] Comment on above: Performed By: #### R F #### [facility] [address] [place] [address] Dr. Venkat Sloan EPITHELIALS <25 Normal [facility] Comment on above: Performed By: #### R F #### [facility] [address] [place] [address] Dr. Venkat Sloan FUNGAL ELEMENTS Normal [facility] Comment on above: Performed By: #### R F #### [facility] [address] [place] [address] Dr. Venkat Sloan GRAM NEG BACILLI RARE Normal [facility] Comment on above: Performed By: #### R F #### [facility] [address] [place] [address] Dr. Venkat Sloan GRAM NEG DIPPLOCOCCI Normal [facility] Comment on above: Performed By: #### R F #### [facility] [address] [place] [address] Dr. Venkat Sloan GRAM POS BACILLI Normal [facility] Comment on above: Performed By: #### R F #### [facility] [address] [place] [address] Dr. Venkat Sloan GRAM POSITIVE COCCI RARE Normal [facility] Comment on above: Performed By: #### R F #### [facility] [address] [address] [address] Venkat Sloan WBC (Bld) [#/Vol] 10*3/uL Normal [facility] Comment on above: Performed By: #### R F #### [facility] [address] [place] [address] Dr. Venkat Sloan Covid-19 PCR (CVDTB)on SARS-CoV-2 (COVID-19) RNA SHIRIN+probe Ql (Unsp spec) Not detected Normal NOT DETECTED [facility] Comment on above: Result Comment: This test is not yet approved or cleared by the [place] FDA. When there are no FDA-approved or cleared tests available, and other criteria are met, FDA can make tests available under an emergency access mechanism called an Emergency Use Authorization (EUA). The EUA for this test is supported by the [employer] of Health and Human Service's (HHS's) declaration [...] SARS-CoV-2. Performed By: #### P REGQNT #### [facility] [address] [place] [address] Dr. Venkat Sloan INFLUENZA A AND B AGon 04-01 [facility] SEE BELOW Normal [facility] Comment on above: Result Comment: Nega tive for Flu A protein angiten. Infection due to Flu A cannot be ruled out. Flu A angiten in the sample may be below the detection limit of the test. Performed By: #### I NFLUAB #### [facility] [address] [place] [address] Dr. Venkat Sloan [facility] SEE BELOW Normal [facility] Comment on above: Result Comment: Nega tive for Flu B protein antigen. Infection due to Flu B cannot be ruled out. Flu B antigen in the sample may be below the detection limit of the test. Performed By: #### I NFLUAB #### [facility] [address] [place] [address] Dr. Venkat Sloan INFLUENZA A AG Negative Normal NEGATIVE SEE COMMENT [facility] Comment on above: Performed By: #### I NFLUAB #### [facility] [address] [place] [address] Dr. Vnekat Sloan INFLUENZA B AG Negative Normal NEGATIVE SEE COMMENT [facility] Comment on above: Performed By: #### I NFLUAB #### [facility] [address] [place] [address] Dr. Venkat Sloan XR CHEST 2 Von 03-24-2022 XR CHEST 2 V EXAM: XR CHEST 2 V HISTORY: . Acute bronchitis . COMPARISON: 03/10/2021 TECHNIQUE: Frontal and lateral chest FINDINGS: Heart and vascularity are unremarkable. Lungs are expanded and free of focal infiltrates. No acute bony abnormality is appreciated. IMPRESSION: No acute heart or lung disease identified. Electronically authenticated by: DUDLEY ALNE Date: 2022-03-24 12:33 Normal [facility]on 02[facility]25 SARS-CoV-2 (COVID-19) RNA SHIRIN+probe Ql (Unsp spec) Not detected Normal NOT DETECTED [facility] Comment on above: Result Comment: When [...] for this test is supported by the [employer] Developer of Health and Human Service's declaration that [...] used). Performed By: #### R F #### [facility] [address] [place] [address] Dr. Venkat Sloan INFLUENZA A AND B [facility] 03-15 [facility] SEE BELOW Normal [facility] Comment on above: Result Comment: Nega tive for Flu A protein angiten. Infection due to Flu A cannot be ruled out. Flu A angiten in the sample may be below the detection limit of the test. Performed By: #### I NFLUAB #### [facility] [address] [place] [address] Dr. Venkat Sloan [facility] SEE BELOW Normal [facility] Comment on above: Result Comment: Nega tive for Flu B protein antigen. Infection due to Flu B cannot be ruled out. Flu B antigen in the sample may be below the detection limit of the test. Performed By: #### I NFLUAB #### [facility] [address] [place] [address] Dr. Venkat Sloan INFLUENZA A AG Negative Normal NEGATIVE SEE COMMENT [facility] Comment on above: Performed By: #### I NFLUAB #### [facility] [address] [place] [address] Dr. Venkat Sloan INFLUENZA B AG Negative Normal NEGATIVE SEE COMMENT [facility] Comment on above: Performed By: #### I NFLUAB #### [facility] [address] [place] [address] Dr. Venkat Sloan INTERNAL CONTROLS Within Normal Limits Normal Wi thin Normal Limits [facility] Comment on above: Performed By: #### I NFLUAB #### [facility] [address] [address] [address] Venkat Sloan Covid-19 PCR ([facility])on 02-25 SARS-CoV-2 (COVID-19) RNA SHIRIN+probe Ql (Unsp spec) Not detected Normal NOT DETECTED [facility] Comment on above: Result Comment: When [...] for this test is supported by the [place] of Health and Human Service's declaration that [...] used). Performed By: #### I NFLUAB #### [facility] [address] [place] [address] Dr. Venkat Sloan INFLUENZA A AND B AGon 03-12 [facility] SEE BELOW Normal [facility] Comment on above: Result Comment: Nega tive for Flu A protein angiten. Infection due to Flu A cannot be ruled out. Flu A angiten in the sample may be below the detection limit of the test. Performed By: #### I NFLUAB #### [facility] [address] [address] [address] Venkat Sloan [facility] SEE BELOW Normal [facility] Comment on above: Result Comment: Nega tive for Flu B protein antigen. Infection due to Flu B cannot be ruled out. Flu B antigen in the sample may be below the detection limit of the test. Performed By: #### I NFLUAB #### [facility] [address] [address] [address] Venkat Sloan INFLUENZA A AG Negative Normal NEGATIVE SEE COMMENT [facility] Comment on above: Performed By: #### I NFLUAB #### [facility] [address] [address] [address] Venkat Sloan INFLUENZA B AG Negative Normal NEGATIVE SEE COMMENT [facility] Comment on above: Performed By: #### I NFLUAB #### [facility] [address] [address] [address] Venkat Sloan INTERNAL CONTROLS Within Normal Limits Normal Wi thin Normal Limits [facility] Comment on above: Performed By: #### I NFLUAB #### [facility] [address] [address] [address] Venkat Sloan PROGESTERONEon 02-20-2022 Progesterone 0.3 ng/mL Normal [facility] Comment on above: Result Comment: Foll icular phase 0.1 - 0.9 Luteal phase 1.8 - 23.9 Ovulation phase 0.1 - 12.0 First trimester 11.0 - 44.3 Second trimester 25.4 - 83.3 Third trimester 58.7 - 214.0 Postmenopausal 0.0 - 0.1 Performed By: #### R F #### [facility] [address] [place] [address] Dr. Venkat Sloan ACTH STIMULATIONon 2 Andros Baseline 49 ng/dL Normal 41-262 [facility] Comment on above: Performed By: #### R F #### [facility] [address] [place] [address] Dr. Venkat Sloan Andros Stimulated 82 ng/dL Normal Not Estab. [facility] Comment on above: Performed By: #### R F #### [facility] [address] [address] [address] Venkat Sloan Covid-19 PCR ([facility])on 01-26 SARS-CoV-2 (COVID-19) RNA SHIRIN+probe Ql (Unsp spec) Not detected Normal NOT DETECTED [facility] Comment on above: Result Comment: This test is not yet approved or cleared by the [place] FDA. When there are no FDA-approved or cleared tests available, and other criteria are met, FDA can make tests available under an emergency access mechanism called an Emergency Use Authorization (EUA). The EUA for this test is supported by the [employer] Developer of Health and Human Service's (HHS's) declaration [...] SARS-CoV-2. Performed By: #### I NFLUAB #### [facility] [address] [place] [address] Dr. Venkat Sloan INFLUENZA A AND B [facility] 02-10 [facility] SEE BELOW Normal [facility] Comment on above: Result Comment: Nega tive for Flu A protein angiten. Infection due to Flu A cannot be ruled out. Flu A angiten in the sample may be below the detection limit of the test. Performed By: #### P REGQNT #### [facility] [address] [place] [address] Dr. Venkat [facility] SEE BELOW Normal [facility] Comment on above: Result Comment: Nega tive for Flu B protein antigen. Infection due to Flu B cannot be ruled out. Flu B antigen in the sample may be below the detection limit of the test. Performed By: #### P REGQNT #### [facility] [address] [place] [address] Dr. Venkat Sloan INFLUENZA A AG Negative Normal NEGATIVE SEE COMMENT [facility] Comment on above: Performed By: #### P REGQNT #### [facility] [address] [place] [address] Dr. Venkat Sloan INFLUENZA B AG Negative Normal NEGATIVE SEE COMMENT [facility] Comment on above: Performed By: #### P REGQNT #### [facility] [address] [address] [address] Venkat Sloan INTERNAL CONTROLS Within Normal Limits Normal Wi thin Normal Limits [facility] Comment on above: Performed By: #### P REGQNT #### [facility] [address] [address] [address] Venkat Sloan DHEA SERUMon 01-19-2022 Dehydroepiandrosterone (DHEA) 82 ng/dL Normal 31-701 [facility] Comment on above: Result Comment: Age [...] 89 Performed By: #### T SH #### [facility] [address] [place] [address] Dr. Venkat Sloan DHEA-SULFATEon 01-14-2022 DHEA-Sulfate 34.0 ug/dL Critically low 84.8-378.0 [facility] Comment on above: Performed By: #### R F #### [facility] [address] [place] [address] Dr. Venkat Sloan FSHon 01-14-2022 FSH 2.2 mIU/mL Normal [facility] Comment on above: Result Comment: Adul t Female: Follicular phase 3.5 - 12.5 Ovulation phase 4.7 - 21.5 Luteal phase 1.7 - 7.7 Postmenopausal 25.8 - 134.8 Performed By: #### L BCFSH #### [facility] [address] [place] [address] Dr. Venkat Sloan LUTEINIZING HORMONE (LH)on 1 LH 5.1 mIU/mL Normal [facility] Comment on above: Result Comment: Adul t Female: Follicular phase 2.4 - 12.6 Ovulation phase 14.0 - 95.6 Luteal phase 1.0 - 11.4 Postmenopausal 7.7 - 58.5 Performed By: #### I NFLUAB #### [facility] [address] [place] [address] Dr. Venkat Sloan PROLACTINon 01-14-2022 Prolactin 8.0 ng/mL Normal 4.8-23.3 [facility] Comment on above: Performed By: #### P ROLAC #### [facility] [address] [place] [address] Dr. Venkat Sloan CBC AUTO DIFFon 01-13-2022 BASO # 0.0 103/ul Normal 0.0-0.1 [facility] Comment on above: Performed By: #### T SH #### [facility] [address] [place] [address] Dr. Venkat Sloan Basophils/100 WBC (Bld) 0.4 % Normal 0.2-2.0 [facility] Comment on above: Performed By: #### T SH #### [facility] [address] [place] [address] Dr. Venkat Sloan EO # 0.1 103/ul Normal 0.0-0.7 [facility] Comment on above: Performed By: #### T SH #### [facility] [address] [place] [place] [address] Dr. Venkat Sloan Eosinophils/100 WBC (Bld) 1.2 % Normal 0.9-7.0 [facility] Comment on above: Performed By: #### T SH #### [facility] [address] [place] [address] Dr. Venkat Sloan Erythrocyte distribution width (RBC) [Ratio] 12.7 % Normal 11.0-15.0 [facility] Comment on above: Performed By: #### T SH #### [facility] [address] [place] [address] Dr. Venkat Sloan Hematocrit (Bld) [Volume fraction] 41.1 % Normal 36.0-48.0 [facility] Comment on above: Performed By: #### T SH #### [facility] [address] [place] [address] Dr. Venkat Sloan Hemoglobin (Bld) [Mass/Vol] 13.1 g/dL Normal 12.0-16.0 [facility] Comment on above: Performed By: #### T SH #### [facility] [address] [place] [address] Dr. Venkat Sloan IG # 0.03 10e3/ul Normal 0.00-0.03 [facility] Comment on above: Performed By: #### T SH #### [facility] [address] [place] [address] Dr. Venkat Sloan IG % 0.3 % Normal 0.0-0.5 [facility] Comment on above: Performed By: #### T SH #### [facility] [address] [place] [address] Dr. Venkat Sloan LYMPH # 1.6 103/ul Normal 1.2-3.8 [facility] Comment on above: Performed By: #### T SH #### [facility] [address] [place] [address] Dr. Venkat Sloan Lymphocytes/100 WBC (Bld) 15.0 % Critically low 20.5-60.0 [facility] Comment on above: Performed By: #### T SH #### [facility] [address] [place] [address] Dr. Venkat Sloan MANUAL DIFF REQ NO Normal [facility] Comment on above: Performed By: #### T SH #### [facility] [address] [place] [address] Dr. Venkat Sloan MCH (RBC) [Entitic mass] 28.5 pg Normal 26.7-34.0 [facility] Comment on above: Performed By: #### T SH #### [facility] [address] [place] [address] Dr. Venkat Sloan MCHC (RBC) [Mass/Vol] 31.9 g/dL Normal 29.9-35.2 [facility] Comment on above: Performed By: #### T SH #### [facility] [address] [place] [address] Dr. Venkat Sloan MCV (RBC) [Entitic vol] 89.3 fL Normal 81.0-99.0 [facility] Comment on above: Performed By: #### T SH #### [facility] [address] [place] [address] Dr. Venkat Sloan MONO # 0.9 103/ul Critically high 0.3-0.8 [facility] Comment on above: Performed By: #### T SH #### [facility] [address] [address] [address] Venkat Sloan Monocytes/100 WBC (Bld) 8.8 % Normal 1.7-12.0 [facility] Comment on above: Performed By: #### T SH #### [facility] [address] [address] [address] Venkat Sloan NEUT # 7.9 103/ul Critically high 1.4-6.5 [facility] Comment on above: Performed By: #### T SH #### [facility] [address] [address] [address] Venkat Sloan Neutrophils/100 WBC (Bld) 74.3 % Normal 43.0-75.0 [facility] Comment on above: Performed By: #### T SH #### [facility] [address] [place] [address] Dr. Venkat Sloan Platelet mean volume (Bld) [Entitic vol] 9.2 fL Critically low 9.5-13.5 [facility] Comment on above: Performed By: #### T SH #### [facility] [address] [place] [address] Dr. Venkat Sloan PLT 300 103/ul Normal 150-450 [facility] Comment on above: Performed By: #### T SH #### [facility] [address] [place] [address] Dr. Venkat Sloan RBC 4.60 106/ul Normal 4.20-5.40 [facility] Comment on above: Performed By: #### T SH #### [facility] [address] [place] [address] Dr. Venkat Sloan WBC 10.7 103/ul Normal 4.0-11.0 [facility] Comment on above: Performed By: #### T SH #### [facility] [address] [place] [address] Dr. Venkat Sloan GLYCOHEMOGLOBIN A1Con 2021 ADA RECOMMENDATION SEE BELOW Normal [facility] Comment on above: Result Comment: ADA RECOMMENDED LIMIT 4.0 - 6.0 ADA THERAPEUTIC TARGET < 7.0 ACTION SUGGESTED > 7.0 Performed By: #### P REGQNT #### [facility] [address] [place] [address] Dr. Venkat Sloan Glucose [Mass/Vol] 100 mg/dL Normal [facility] Comment on above: Performed By: #### P REGQNT #### [facility] [address] [place] [address] Dr. Venkat Sloan HbA1c (Bld) [Mass fraction] 5.1 % Normal 4.5-6.2 [facility] Comment on above: Performed By: #### P REGQNT #### [facility] [address] [place] [address] Dr. Venkat Sloan TSHon 01-13-2022 TSH 1.098 uIU/mL Normal 0.358-3.740 [facility] Comment on above: Performed By: #### T SH #### [facility] [address] [place] [address] Dr. Venkat Sloan [facility]26 SARS-CoV-2 (COVID-19) RNA SHIRIN+probe Ql (Unsp spec) Not detected Normal NOT DETECTED [facility] Comment on above: Result Comment: This test is not yet approved or cleared by the [place] FDA. When there are no FDA-approved or cleared tests available, and other criteria are met, FDA can make tests available under an emergency access mechanism called an Emergency Use Authorization (EUA). The EUA for this test is supported by the [employer] Developer of Health and Human Service's (HHS's) declaration [...] SARS-CoV-2. Performed By: #### I NFLUAB #### [facility] [address] [address] [address] Venkat Sloan PREG QUANT HCGon 12-24-2021 HCG QUANT <1 Normal [facility] Comment on above: Performed By: #### P REGQNT #### [facility] [address] [address] [address] Venkat Sloan HCG RANGE SEE BELOW Normal [facility] Comment on above: Result Comment: 5-50 0.2-1 WEEK 50-500 1-2 WEEKS 100-5,000 2-3 WEEKS 500-10,000 3-4 WEEKS 1,000-50,000 4-5 WEEKS 10,000-100,000 5-6 WEEKS 15,000-200,000 6-8 WEEKS 10,000-100,000 2-3 MONTHS Performed By: #### P REGQNT #### [facility] [address] [address] [address] Venkat Sloan HCG-BETA SUBUNIT QUANTon hCG,Beta Subunit,Qnt,Serum <1 Normal [facility] Comment on above: Result Comment: Fema le (Non-) 0 - 5 (Postmenopausal) 0 - 8 . Female () Weeks of Gestation 3 6 - 71 4 10 - 750 5 217 - 7138 6 158 - 78651 7 [phone] 8 [phone] 9 [phone] 10 [phone] 12 [phone] -[phone] 14 40329 - 68093 15 15062 - 89897 16 6291 - 59412 17 0347 - [phone] 18 7817 - [phone] Aj ECLIA methodology Performed By: #### T SH #### [facility] [address] [place] [address] Dr. Venkat Sloan BRETT by IFAon 09-29-2021 Antinuclear Antibodies, IFA Negative Normal [facility] Comment on above: Result Comment: Nega tive <1:80 Borderline 1:80 Positive >1:80 ICAP nomenclature: AC-0 For more information about Hep-2 cell patterns use ANApatterns.org, the official website for the International Consensus on Antinuclear Antibody (BRETT) Patterns (ICAP). Performed By: #### A NAIFA #### [facility] [address] [place] [address] Dr. Venkat Sloan INSULINon 09-29-2021 Insulin 11.1 uIU/mL Normal 2.6-24.9 [facility] Comment on above: Performed By: #### T SH #### [facility] [address] [place] [address] Dr. Venkat Sloan ANTISTREPTOLYSIN O AB (ASO)o n 09-27-2021 Antistreptolysin O Ab <20.0 Normal 0.0-200.0 [facility] Comment on above: Performed By: #### P REGQNT #### [facility] [address] [place] [address] Dr. Venkat Sloan RHEUMATOID FACTORon 09-28-19 RA Latex Turbid. <10.0 Normal <14.0 [facility] Comment on above: Performed By: #### R F #### [facility] [address] [place] [address] Dr. Venkat Sloan CBC AUTO DIFFon 09-26-2021 BASO # 0.0 103/ul Normal 0.0-0.1 [facility] Comment on above: Performed By: #### T SH #### [facility] [address] [place] [address] Dr. Venkat Sloan Basophils/100 WBC (Bld) 0.3 % Normal 0.2-2.0 [facility] Comment on above: Performed By: #### T SH #### [facility] [address] [place] [address] Dr. Venkat Sloan EO # 0.1 103/ul Normal 0.0-0.7 [facility] Comment on above: Performed By: #### T SH #### [facility] [address] [place] [address] Dr. Venkat Sloan Eosinophils/100 WBC (Bld) 1.8 % Normal 0.9-7.0 [facility] Comment on above: Performed By: #### T SH #### [facility] [address] [place] [address] Dr. Venkat Sloan Erythrocyte distribution width (RBC) [Ratio] 12.9 % Normal 11.0-15.0 [facility] Comment on above: Performed By: #### T SH #### [facility] [address] [place] [address] Dr. Venkat Sloan Hematocrit (Bld) [Volume fraction] 39.8 % Normal 36.0-48.0 [facility] Comment on above: Performed By: #### T SH #### [facility] [address] [place] [address] Dr. Venkat Sloan Hemoglobin (Bld) [Mass/Vol] 12.7 g/dL Normal 12.0-16.0 [facility] Comment on above: Performed By: #### T SH #### [facility] [address] [place] [address] Dr. Venkat Sloan IG # 0.02 10e3/ul Normal 0.00-0.03 [facility] Comment on above: Performed By: #### T SH #### [facility] [address] [place] [address] Dr. Venkat Sloan IG % 0.3 % Normal 0.0-0.5 [facility] Comment on above: Performed By: #### T SH #### [facility] [address] [place] [address] Dr. Venkat Sloan LYMPH # 1.5 103/ul Normal 1.2-3.8 [facility] Comment on above: Performed By: #### T SH #### [facility] [address] [place] [address] Dr. Venkat Sloan Lymphocytes/100 WBC (Bld) 21.5 % Normal 20.5-60.0 [facility] Comment on above: Performed By: #### T SH #### [facility] [address] [place] [address] Dr. Venkat Sloan MANUAL DIFF REQ NO Normal [facility] Comment on above: Performed By: #### T SH #### [facility] [address] [place] [address] Dr. Venkat Sloan MCH (RBC) [Entitic mass] 28.5 pg Normal 26.7-34.0 [facility] Comment on above: Performed By: #### T SH #### [facility] [address] [place] [address] Dr. Venkat Sloan MCHC (RBC) [Mass/Vol] 31.9 g/dL Normal 29.9-35.2 [facility] Comment on above: Performed By: #### T SH #### [facility] [address] [place] [address] Dr. Venkat Sloan MCV (RBC) [Entitic vol] 89.2 fL Normal 81.0-99.0 [facility] Comment on above: Performed By: #### T SH #### [facility] [address] [place] [address] Dr. Venkat Sloan MONO # 0.5 103/ul Normal 0.3-0.8 [facility] Comment on above: Performed By: #### T SH #### [facility] [address] [place] [address] Dr. Venkat Sloan Monocytes/100 WBC (Bld) 7.6 % Normal 1.7-12.0 [facility] Comment on above: Performed By: #### T SH #### [facility] [address] [place] [address] Dr. Venkat Sloan NEUT # 4.9 103/ul Normal 1.4-6.5 [facility] Comment on above: Performed By: #### T SH #### [facility] [address] [place] [address] Dr. Venkat Sloan Neutrophils/100 WBC (Bld) 68.5 % Normal 43.0-75.0 [facility] Comment on above: Performed By: #### T SH #### [facility] [address] [place] [address] Dr. Venkat Sloan Platelet mean volume (Bld) [Entitic vol] 8.8 fL Critically low 9.5-13.5 [facility] Comment on above: Performed By: #### T SH #### [facility] [address] [address] [address] Venkat Sloan PLT 297 103/ul Normal 150-450 [facility] Comment on above: Performed By: #### T SH #### [facility] [address] [place] [address] Dr. Venkat Sloan RBC 4.46 106/ul Normal 4.20-5.40 [facility] Comment on above: Performed By: #### T SH #### [facility] [address] [place] [address] Dr. Venkat Sloan WBC 7.1 103/ul Normal 4.0-11.0 [facility] Comment on above: Performed By: #### T SH #### [facility] [address] [place] [address] Dr. Venkat Sloan CRPon 09-26-2021 CRP [Mass/Vol] mg/L Normal <=1.0 [facility] Comment on above: Performed By: #### P REGQNT #### [facility] [address] [place] [address] Dr. Venkat Sloan FREE THYROXINE INDEX T7on FTI 2.71 Normal 1.30-4.50 [facility] Comment on above: Performed By: #### P REGQNT #### [facility] [address] [place] [address] Dr. Venkat Sloan T3U 33.0 % Normal 30.0-39.0 [facility] Comment on above: Performed By: #### P REGQNT #### [facility] [address] [place] [address] Dr. Venkat Sloan T4 [Mass/Vol] 8.20 ug/dL Normal 4.80-13.90 [facility] Comment on above: Performed By: #### P REGQNT #### [facility] [address] [place] [address] Dr. Venkat Sloan GLYCOHEMOGLOBIN A1Con 2021 ADA RECOMMENDATION SEE BELOW Normal [facility] Comment on above: Result Comment: ADA RECOMMENDED LIMIT 4.0 - 6.0 ADA THERAPEUTIC TARGET < 7.0 ACTION SUGGESTED > 7.0 Performed By: #### I NFLUAB #### [facility] [address] [address] [address] Venkat Sloan Glucose [Mass/Vol] 105 mg/dL Normal [facility] Comment on above: Performed By: #### I NFLUAB #### [facility] [address] [address] [address] Venkat Sloan HbA1c (Bld) [Mass fraction] 5.3 % Normal 4.5-6.2 [facility] Comment on above: Performed By: #### I NFLUAB #### [facility] [address] [place] [address] Dr. Venkat Sloan IRONon 09-26-2021 Iron [Mass/Vol] 49.0 ug/dL Critically low 50.0-170.0 [facility] Comment on above: Performed By: #### P REGQNT #### [facility] [address] [place] [address] Dr. Venkat Sloan LIPID PROFILEon 09-26-2021 CHOL-HDL RATIO NORM SEE BELOW Normal [facility] Comment on above: Result Comment: 3.3 - 4.4 LOW RISK 4.4 - 7.1 AVERAGE RISK 7.1 - 11.0 MODERATE RISK >11.0 HIGH RISK Performed By: #### P REGQNT #### [facility] [address] [place] [address] Dr. Venkat Sloan Cholesterol [Mass/Vol] 197 mg/dL Normal <=200 [facility] Comment on above: Performed By: #### P REGQNT #### [facility] [address] [place] [address] Dr. Venkat Sloan Cholesterol in HDL [Mass/Vol] 64 mg/dL Critically high 40-60 [facility] Comment on above: Performed By: #### P REGQNT #### [facility] [address] [place] [address] Dr. Venkat Sloan Cholesterol in LDL [Mass/Vol] 123.4 mg/dL Normal [facility] Comment on above: Performed By: #### P REGQNT #### [facility] [address] [address] [address] Venkat Sloan Cholesterol.total/Choles terol in HDL [Mass ratio] 3.1 {ratio} Normal [facility] Comment on above: Performed By: #### P REGQNT #### [facility] [address] [place] [address] Dr. Venkat Sloan HDL NORMAL > or = 60 mg/dl - LO W CARDIOVASCULAR RISK <40 mg/dl - HIGH CARDIOVASCULAR RISK Normal [facility] Comment on above: Performed By: #### P REGQNT #### [facility] [address] [place] [address] Dr. Venkat Sloan LDL CALC NORMAL SEE BELOW Normal [facility] Comment on above: Result Comment: <100 mg/dl OPTIMAL 100 - 129 mg/dl NEAR OR ABOVE OPTIMAL 130 - 159 mg/dl BORDERLINE HIGH 160 - 189 mg/dl HIGH >190 mg/dl VERY HIGH Performed By: #### P REGQNT #### [facility] [address] [place] [address] Dr. Venkat Sloan Triglyceride [Mass/Vol] 48 mg/dL Normal <=150 [facility] Comment on above: Performed By: #### P REGQNT #### [facility] [address] [place] [address] Dr. Venkat Sloan VLDL CALC 9.6 mg/dL Normal [facility] Comment on above: Performed By: #### P REGQNT #### [facility] [address] [place] [address] Dr. Venkat Sloan PROF 14(COMP METB)on 022 Albumin [Mass/Vol] 4.0 g/dL Normal 3.4-5.0 [facility] Comment on above: Performed By: #### I NFLUAB #### [facility] [address] [place] [address] Dr. Venkat Sloan Albumin/Globulin [Mass ratio] 1.3 {ratio} Normal [facility] Comment on above: Performed By: #### I NFLUAB #### [facility] [address] [place] [address] Dr. Venkat Sloan ALP [Catalytic activity/Vol] 58 U/L Normal 46-116 [facility] Comment on above: Performed By: #### I NFLUAB #### [facility] [address] [address] [address] Venkat Sloan ALT [Catalytic activity/Vol] 20 U/L Normal 14-59 [facility] Comment on above: Performed By: #### I NFLUAB #### [facility] [address] [address] [address] Venkat Sloan Anion gap [Moles/Vol] 10.4 mmol/L Normal [facility] Comment on above: Performed By: #### I NFLUAB #### [facility] [address] [address] [address] Venkat Sloan AST [Catalytic activity/Vol] 11 U/L Critically low 15-37 [facility] Comment on above: Performed By: #### I NFLUAB #### [facility] [address] [place] [address] Dr. Venkat Sloan Bilirubin [Mass/Vol] 0.8 mg/dL Normal 0.2-1.0 [facility] Comment on above: Performed By: #### I NFLUAB #### [facility] [address] [place] [address] Dr. Venkat Sloan Calcium [Mass/Vol] 9.0 mg/dL Normal 8.5-10.1 [facility] Comment on above: Performed By: #### I NFLUAB #### [facility] [address] [place] [address] Dr. Venkat Sloan Chloride [Moles/Vol] 106 mmol/L Normal 98-107 [facility] Comment on above: Performed By: #### I NFLUAB #### [facility] [address] [address] [address] Venkat Sloan CO2 [Moles/Vol] 27.0 mmol/L Normal 21.0-32.0 [facility] Comment on above: Performed By: #### I NFLUAB #### [facility] [address] [place] [address] Dr. Venkat Sloan Creatinine [Mass/Vol] 0.70 mg/dL Normal 0.55-1.02 [facility] Comment on above: Performed By: #### I NFLUAB #### [facility] [address] [address] [address] Venkat Sloan EGFR-AF [place] >60 Normal >=60 [facility] Comment on above: Performed By: #### I NFLUAB #### [facility] [address] [address] [address] Venkat Sloan EGFR-NON AF [place] >60 Normal >=60 [facility] Comment on above: Performed By: #### I NFLUAB #### [facility] [address] [address] [address] Venkat Sloan Globulin (S) [Mass/Vol] 3.2 g/dL Normal [facility] Comment on above: Performed By: #### I NFLUAB #### [facility] [address] [place] [address] Dr. Venkat Sloan Glucose [Mass/Vol] 92 mg/dL Normal 74-106 [facility] Comment on above: Performed By: #### I NFLUAB #### [facility] [address] [address] [address] Venkat Sloan Potassium [Moles/Vol] 4.4 mmol/L Normal 3.5-5.1 [facility] Comment on above: Performed By: #### I NFLUAB #### [facility] [address] [address] [address] Venkat Sloan Protein [Mass/Vol] 7.2 g/dL Normal 6.4-8.2 [facility] Comment on above: Performed By: #### I NFLUAB #### [facility] [address] [address] [address] Venkat Sloan Sodium [Moles/Vol] 139 mmol/L Normal 136-145 [facility] Comment on above: Performed By: #### I NFLUAB #### [facility] [address] [address] [address] Venkat Sloan Urea nitrogen [Mass/Vol] 13.0 mg/dL Normal 7.0-18.0 [facility] Comment on above: Performed By: #### I NFLUAB #### [facility] [address] [place] [address] Dr. Venkat Sloan Urea nitrogen/Creatinine [Mass ratio] 18.6 mg/mg Normal [facility] Comment on above: Performed By: #### I NFLUAB #### [facility] [address] [place] [address] Dr. Venkat Sloan TSHon 09-26-2021 TSH 1.318 uIU/mL Normal 0.358-3.740 [facility] Comment on above: Performed By: #### P REGQNT #### [facility] [address] [place] [address] Dr. Venkat Sloan URIC ACID SERUMon 09-26-2021 Urate [Mass/Vol] 3.9 mg/dL Normal 2.6-6.0 [facility] Comment on above: Performed By: #### P REGQNT #### [facility] [address] [place] [address] Dr. Venkat Sloan XR CSPINE MIN 4 [...] DUDLEY HERNÁNDEZ Date: 2021-09-24 21:16 Normal [facility] PREG QUANT HCGon 08-17-2021 HCG QUANT <1 Normal [facility] Comment on above: Performed By: #### I NFLUAB #### [facility] [address] [place] [address] Dr. Venkat Sloan HCG RANGE SEE BELOW Normal [facility] Comment on above: Result Comment: 5-50 0-1 WEEK 40-300 1-2 WEEKS 100-1,000 2-3 WEEKS 500-6,000 3-4 WEEKS 5,000-200,000 1-2 MONTHS 10,000-100,000 2-3 MONTHS 3,000-50,000 2ND TRIMESTER 1,000-50,000 3RD TRIMESTER Performed By: #### I NFLUAB #### [facility] [address] [place] [address] Dr. Venkat Sloan US PELVIS AND TRANSVAGon [...] DUDLEY HERNÁNDEZ Date: 2021-08-17 07:01 Normal [facility] COVID Quick Testingon 2020 Result Negative [facility] Other Vital Signs Date Time Vital Sign Value Performing Clinician Facility 05-22-2023 09:270500 Body height 154.94 cm [facility] 05-22-2023 09:0500 Body mass index (BMI) [Ratio] 30.8 kg/m2 [facility] 05-22-2023 09:-050 Body temperature 98.1 [degF] [facility] 05-22-2023 09:0500 Body weight 74.04 kg [facility] 05-22-2023 09:27-0500 Heart rate 78 /min [facility] 05-22-2023 09:27-0500 Respiratory rate 16 /min [facility] 05-22-2023 09:27-0500 SaO2% (BldA) [Mass fraction] 98 % [facility] 05-10-2023 15:14-0500 Body mass index (BMI) [Ratio] 30.04 kg/m2 Ricardo Jennifer DO Work Phone: [facility] 05-10-2023 15:14-0500 Body weight 72.12 kg Ricardo Jennifer DO Work Phone: [facility] 05-10-2023 15:14-0500 Diastolic blood pressure 70 mm[Hg] Ricardo Jennifer DO Work Phone: [facility] 05-10-2023 15:14-0500 Systolic blood pressure 110 mm[Hg] Ricardo Jennifer DO Work Phone: [facility] 01-27-2021 18:45-0400 Body height 154.94 cm Mohini Juan Other [facility] Other 01-27-2021 18:45-0400 Body mass index (BMI) [Ratio] 28.34 kg/m2 Mohini Juan Other [facility] Other 01-27-2021 18:45-0400 Body temperature 96.4 [degF] Mohini Juan Other [facility] Other 01-27-2021 18:45-0400 Body weight 68.04 kg Mohini Juan Other [facility] Other 01-27-2021 18:45-0400 Respiratory rate 18 /min Mohini Juan Other [facility] Other 01-27-2021 18:45-0400 SaO2% (BldA) [Mass fraction] 99 % Mohini Martinez Other [facility] Other 12-22-2020 11:45-0400 Body height 154.94 cm Dudley Freeman Other [facility] Other 12-22-2020 11:45-0400 Body mass index (BMI) [Ratio] 28.34 kg/m2 Dudley Freeman Other [facility] Other 12-22-2020 11:45-0400 Body weight 68.04 kg Dudley Freeman Other [facility] Other Encounters Encounter Date Encounter Type Care Provider Facility Start: 06-30-2023 End: 06-30-2023 ambulatory RICARDO JENNIFER Not Available Start: 06-13-2023 End: 06-13-2023 ambulatory RICARDO JENNIFER Not Available Start: 05-26-2023 End: 05-26-2023 ambulatory RICARDO JENNIFER Not Available Start: 05-22-2023 End: 05-22-2023 ambulatory [facility] Work Phone: Start: 05-22-2023 End: 05-22-2023 Patient encounter procedure [facility] Work Phone: Start: 05-10-2023 [...] preprocedural examination DR RICARDO RODRIGUEZ . [facility] Start: 07-08-2022 End: 07-08-2022 ambulatory [...] Facility:[facility] Start: 04-01-2022 End: 04-01-[address] IRNO GARCIA . Facility:[facility] Start: 03-24-2022 End: 03-25-2022 [...] findings DR IRON GARCIA . [facility] Start: 09-26-2021 End: 09-27-[address] [...] 01-27-2021 End: 01-27-2021 ambulatory Mohini Martinez Other [facility] Other Start: 01-27-2021 Office outpatient vi sit [...] EST Routine [facility] [address] [place] [id number] Ricardo Rodriguez, DO [address] [place] [address] [facility] Start: 05-10-2023 End: 05-10-2024 CBC panel - Blood by Automated count CBC Lab Routine Diabetes mellitus screening Expected: 05/10/2023 (Approximate), Expires: 05/10/2024 [facility] Work Phone: Comment on above: Expected: 05/10/2023 (Approximate), Expires: 05/10/2024 Start: 05-10-2023 End: 05-10-2024 Measurement of glucose 1 hour after glucose challenge for glucose tolerance test Glucose tolerance, 1 hour Lab Routine Diabetes mellitus screening Expected: 05/10/2023 (Approximate), Expires: 05/10/2024 [facility] Comment on above: Expected: 05/10/2023 (Approximate), Expires: 05/10/2024 Start: 11-26-2022 Influenza vaccination Influenz a Vaccine (#1) [facility] Immunizations Immunization Date Immunization Notes Care Provider Fa tian 01-25-2022 influenza virus vacc ine, unspecified formulation Ricardo Jennifer DO Work Phone: [facility] Payers Date Payer Category Payer Unknown BCBS BCBS xxxxxx [id number] 2022-Present [phone] [address] [place] [address] [id number] 1993 Unknown [id number] 2.16.840.1.677720.3.579.2.59 1993 Unknown [id number] 2.16.840.1.118767.3.579.2.59 1993 Unknown [id number] 2.16.840.1.030810.3.579.2.593 1993 Unknown [id number] 2.16.840.1.591157.3.579.2.593 1993 Unknown [id number] 2.16.840.1.104983.3.579.2.593 1993 Unknown [id number] 2.16.840.1.701893.3.579.2.593 1993 Unknown [id number] 2.16.840.1.565359.3.579.2.593 1993 Unknown [id number] 2.16.840.1.397509.3.579.2.593 1993 Unknown [id number] 2.16.840.1.710938.3.579.2.593 1993 Unknown [id number] 2.16.840.1.575358.3.579.2.593 1993 Unknown [id number] 2.16.840.1.807020.3.579.2.593 1993 Unknown [id number] 2.16.840.1.845077.3.579.2.59 1993 Unknown [id number] 2.16.840.1.410700.3.579.2.593 1993 Unknown [id number] 2.16.840.1.534926.3.579.2.59 1993 Unknown [id number] 2.16.840.1.726241.3.579.2.593 1993 Unknown [id number] 2.16.840.1.663330.3.579.2.59 1993 Unknown [id number] 2.16.840.1.813440.3.579.2.59 1993 Unknown [id number] 2.16.840.1.171319.3.579.2.593 1993 Unknown [id number] 2.16.840.1.365278.3.579.2.59 1993 Unknown [id number] 2.16.840.1.115132.3.579.2.593 1993 Unknown [id number] 2.16.840.1.720536.3.579.2.593 1993 Unknown [id number] 2.16.840.1.954992.3.579.2.593 1993 Unknown [id number] 2.16.840.1.821271.3.579.2.593 1993 Unknown [id number] 2.16.840.1.749526.3.579.2.593 1993 Unknown [id number] 2.16.840.1.806198.3.579.2.593 1993 Unknown [id number] 2.16.840.1.681751.3.579.2.1259 1993 Unknown [id number] 2.16.840.1.726542.3.579.2.1259 1993 Unknown [id number] 2.16.840.1.203336.3.579.2.1259 1993 Unknown [id number] 2.16.840.1.049655.3.579.2.1259 1993 Unknown [id number] 2.16.840.1.779826.3.579.2.1259 1993 Unknown [id number] 2.16.840.1.788569.3.579.2.1259 1993 Unknown [id number] 2.16.840.1.362738.3.579.2.1259 1959 Unknown [id number] 1959 Unknown [id number] Self-pay Self Pay [id number] Unknown [id number] 2.16. 840.1.414096.19 Unknown MMO [id number] Unknown [place] BC/BS [id number] Social History Date Type Detail Facility Unknown if ever smoked [facility] Other Start: 01-28-2023 Sex Assigned At [facility] Other Start: 01-28-2023 End: 05-22-2023 Tobacco smoking status CAIS Never smoked tobacco [facility] Start: 05-10-2023 [...] nursing note reviewed. Exam conducted with a senior product development scientist present. Vitals: Estimated body mass index is [...] Rodriguez DO documented in this encounter [facility] Clinical Note 07-08-2022 Note Date & Type Note Facility 07-08-2022 Note OPERATIVE NOTE OPERATION DATE: 07/08/2022 PROCEDURE: Diagnostic laparoscopy with fulguration of ovarian endometrial implant. PREOPERATIVE DIAGNOSIS: Pelvic pain. POSTOPERATIVE DIAGNOSIS: Pelvic pain. ANESTHESIA: General. SURGEON: Ricardo Rodriguez D.O. DRIVER'S LICENSE EXAMINER: DEVIN Miles URINE OUTPUT: Yellow and clear. [...] to Recovery Room in stable condition. [facility] Evaluation note 12-22-2020 Note Date & Type Note Facility 12-22-2020 Evaluation note Encounter Date Diagnosis Assessment Notes Nov, Irritable bowel syndrome with both constipation and diarrhea (ICD-10 - K58.2) LABS INDICATED ABOVE START TRIAL OF DICYCLOMINE 20 BID RTO 4 WEEKS [facility] Other Evaluation note Note Date & Type Note Facility Evaluation note [facility] Other Evaluation note Note Date & Type Note Facility Evaluation note Diagnosis Second trimester state, incidental Diabetes mellitus screening Screening for diabetes mellitus documented in this encounter [facility] Evaluation note Note Date & Type Note Facility Evaluation note No assessment information availa [facility] Work Phone: History general Narrative - Reported Note Date & Type Note Facility History general Narrative - Reported Type Medical History anxiety/depression Medical History IBS Surgical History TONSILLECTOMY [facility] Other History general Narrative - Reported Note Date & Type Note Facility History general Narrative - Reported [facility] Other Summary Purpose Family History No Family [...] and content) DATE CREATED AUTHOR 07/13/2022 [facility] DATE CREATED AUTHOR AUTHOR'S ORGANIZ ATION 07/01/2023 [facility] [employer] Care Teams (unrecognized sec tion and content) Training Engineer Relationship Specialty Start Date End Date Iron Garcia MD [address] [place] [address] PCP - General Family Medicine 11/23/22 Team [...] BE BASED ON THE PRIMARY CLINICAL RECORDS. [facility]. provides no warranty or guarantee of the accuracy or completeness of information in this document.
[2023-07-14 17:22] VITALS: BP 111/71; PULSE 113
== END 2023-07-14 17:49 | disposition home or self-care (01) ==
PROVIDERS: PCP Family Medicine; Visit Provider Obstetrics & Gynecology
DX: O40.9XX0 Polyhydramnios, unspecified trimester, not applicable or unspecified (principal); Z3A.00 Weeks of gestation of pregnancy not specified
CPT/HCPCS: 59025

== ENCOUNTER 2023-07-18 07:04 | Outpatient (OUT) | payer BC, SELFPAY ==
--- NOTE | 2023-07-18 | US_ITS ---
[address] [address] Patient Name: ESTER BRADFORD MRN: [facility]:[id number] date: 1995 Sex: F Assigned Patient Location: [facility] Current Patient Location: Accession/Order Number: [id number] Exam Date: 07/18/2023 17:12 Report Date: 07/19/2023 07:15 At the request of: RICARDO LEGGETT Procedure: US OB BPP w non-stress EXAMINATION: US OB BPP w non-stress HISTORY: POLYHYDRAMINOS AFFECTING [id number] COMPARISON: No relevant comparison available. TECHNIQUE: Ultrasound biophysical profile was performed in the radiology department. FINDINGS: BREATHING MOVEMENTS: 0.0 GROSS BODY MOVEMENTS: 2.0 TONE: 2.0 QUALITATIVE AMNIOTIC FLUID VOLUME: 2.0 PRESENTATION: CEPHALIC HEART RATE: 134.3 bpm H.B./min AMNIOTIC FLUID VOLUME: 19.4 cm cm GESTATIONAL AGE: 35 weeks 3 days CONCLUSION: Total biophysical profile score: 6.0 Electronically authenticated by: DUDLEY HERNÁNDEZ Date: 07/19/2023 07:15
--- OUTSIDE RECORDS SUMMARY | 2023-07-18 07:08 | XMS_ITS | CCD ---
Author Organization [facility] Care Team Providers Care Roll Repairer Name Role Phone Lydia Dudley Unavailable Mohini [...] Unavailable HOY ., DR PERDUE Consulting Unavailable SAYBROOK, DR DUDLEY Emanuel Consulting Unavailable JENNIFER ., [...] Unavailable Iron Garcia MD Primary Care Provider [phone] JENNIFERCOLTENY Attending Unavailable JENNIFER, RICARDO Attending Unavailable JENNIFER, RICARDO Attending Unavailable JENNIFER, RICARDO Attending Unavailable JENNIFER, RICARDO Attending Unavailable JENNIFER, RICARDO Attending Unavailable JENNIFER, RICARDO Attending Unavailable JENNIFER, RICARDO Attending Unavailable Medications Current Medications Medication Drug Class(es) Dates Sig (Normalized) Sig (Original) [id number] 200 actuat albuterol 0.09 mg/actuat metered dose [...] DAILY NEEDED FOR NAUSEA 0 02/19/2023 Active Hphgzd76-Lpom Fum-Folic Ac-Om3 (One A Day Women's Dha) 28 mg iron- 800 mcg combo pack (1 source) Start: 05-22-2023 Hedwqj00-Xevl Fum-Folic Ac-Om3 (One A Day Women's Dha) [...] SARS-CoV-2 (COVID-19) RNA SHIRIN+probe Ql (Unsp spec) [facility] Urinalysis macro (dipstick) panel (U)on 05-10-2023 Bilirubin, UA Negative Negative - 4(70) +++ mg/dL [facility] Blood, UA Negative Negative - 50 Jayson/mcL [facility] Clarity, UA Clear [facility] Color, UA Yellow [facility] Glucose, UA Negative Negative - 1999(110) ++++ mg/dL [facility] Interpretation and review of laboratory results Abnormal [facility] Ketones, UA Positive Negative - 160(16) ++++ mg/dL [facility] Comment on above: trace Leukocytes, UA Trace Negative - 500+++ Lolita/mcL [facility] Nitrite, UA Negative Negative - Positive [facility] pH, UA 6.0 5 - 9 [facility] Protein, UA Negative Negative - 1999(20) ++++ mg/dL [facility] Spec Grav, UA 1.030 1 - 1.03 [facility] Urobilinogen, UA 0.2 0.2 - 12 mg/dL [facility] CBC AUTO DIFFon 07-08-2022 BASO # 0.0 103/ul Normal 0.0-0.1 [facility] Comment on above: Performed By: #### R F #### [facility] [address] [address] [address] Venkat Sloan Basophils/100 WBC (Bld) 0.5 % Normal 0.2-2.0 [facility] Comment on above: Performed By: #### R F #### [facility] [address] [place] [address] Dr. Venkat Sloan EO # 0.1 103/ul Normal 0.0-0.7 [facility] Comment on above: Performed By: #### R F #### [facility] [address] [place] [address] Dr. Venkat Sloan Eosinophils/100 WBC (Bld) 1.7 % Normal 0.9-7.0 [facility] Comment on above: Performed By: #### R F #### [facility] [address] [place] [address] Dr. Venkat Sloan Erythrocyte distribution width (RBC) [Ratio] 12.7 % Normal 11.0-15.0 [facility] Comment on above: Performed By: #### R F #### [facility] [address] [place] [address] Dr. Venkat Sloan Hematocrit (Bld) [Volume fraction] 40.4 % Normal 36.0-48.0 [facility] Comment on above: Performed By: #### R F #### [facility] [address] [place] [address] Dr. Venkat Sloan Hemoglobin (Bld) [Mass/Vol] 13.1 g/dL Normal 12.0-16.0 [facility] Comment on above: Performed By: #### R F #### [facility] [address] [place] [address] Dr. Venkat Sloan IG # 0.02 10e3/ul Normal 0.00-0.03 [facility] Comment on above: Performed By: #### R F #### [facility] [address] [place] [address] Dr. Venkat Sloan IG % 0.3 % Normal 0.0-0.5 [facility] Comment on above: Performed By: #### R F #### [facility] [address] [place] [address] Dr. Venkat Sloan LYMPH # 2.0 103/ul Normal 1.2-3.8 [facility] Comment on above: Performed By: #### R F #### [facility] [address] [place] [address] Dr. Venkat Sloan Lymphocytes/100 WBC (Bld) 26.2 % Normal 20.5-60.0 [facility] Comment on above: Performed By: #### R F #### [facility] [address] [place] [address] Dr. Venkat Sloan MANUAL DIFF REQ NO Normal [facility] Comment on above: Performed By: #### R F #### [facility] [address] [place] [address] Dr. Venkat Sloan MCH (RBC) [Entitic mass] 28.4 pg Normal 26.7-34.0 [facility] Comment on above: Performed By: #### R F #### [facility] [address] [place] [address] Dr. Venkat Sloan MCHC (RBC) [Mass/Vol] 32.4 g/dL Normal 29.9-35.2 [facility] Comment on above: Performed By: #### R F #### [facility] [address] [place] [address] Dr. Venkat Sloan MCV (RBC) [Entitic vol] 87.4 fL Normal 81.0-99.0 [facility] Comment on above: Performed By: #### R F #### [facility] [address] [place] [address] Dr. Venkat Sloan MONO # 0.7 103/ul Normal 0.3-0.8 [facility] Comment on above: Performed By: #### R F #### [facility] [address] [place] [address] Dr. Venkat Sloan Monocytes/100 WBC (Bld) 8.8 % Normal 1.7-12.0 [facility] Comment on above: Performed By: #### R F #### [facility] [address] [place] [address] Dr. Venkat Sloan NEUT # 4.8 103/ul Normal 1.4-6.5 [facility] Comment on above: Performed By: #### R F #### [facility] [address] [place] [address] Dr. Venkat Sloan Neutrophils/100 WBC (Bld) 62.5 % Normal 43.0-75.0 [facility] Comment on above: Performed By: #### R F #### [facility] [address] [place] [address] Dr. Venkat Sloan Platelet mean volume (Bld) [Entitic vol] 8.5 fL Critically low 9.5-13.5 [facility] Comment on above: Performed By: #### R F #### [facility] [address] [place] [address] Dr. Venkat Sloan PLT 331 103/ul Normal 150-450 [facility] Comment on above: Performed By: #### R F #### [facility] [address] [place] [address] Dr. Venkat Sloan RBC 4.62 106/ul Normal 4.20-5.40 [facility] Comment on above: Performed By: #### R F #### [facility] [address] [place] [address] Dr. Venkat Sloan WBC 7.7 103/ul Normal 4.0-11.0 [facility] Comment on above: Performed By: #### R F #### [facility] [address] [place] [address] Dr. Venkat Sloan PREG QUANT HCGon 07-08-2022 HCG QUANT <1 Normal [facility] Comment on above: Performed By: #### P REGQNT #### [facility] [address] [place] [address] Dr. Venkat Sloan HCG RANGE SEE BELOW Normal [facility] Comment on above: Result Comment: 5-50 0.2-1 WEEK 50-500 1-2 WEEKS 100-5,000 2-3 WEEKS 500-10,000 3-4 WEEKS 1,000-50,000 4-5 WEEKS 10,000-100,000 5-6 WEEKS 15,000-200,000 6-8 WEEKS 10,000-100,000 2-3 MONTHS Performed By: #### P REGQNT #### [facility] [address] [place] [address] Dr. Venkat Sloan PROGESTERONEon 06-23-2022 Progesterone 5.7 ng/mL Normal [facility] Comment on above: Result Comment: Foll icular phase 0.1 - 0.9 Luteal phase 1.8 - 23.9 Ovulation phase 0.1 - 12.0 First trimester 11.0 - 44.3 Second trimester 25.4 - 83.3 Third trimester 58.7 - 214.0 Postmenopausal 0.0 - 0.1 Performed By: #### T SH #### [facility] [address] [place] [address] Dr. Venkat Sloan PREG QUANT HCGon 05-31-2022 HCG QUANT 1 mIU/mL Normal [facility] Comment on above: Performed By: #### P REGQNT #### [facility] [address] [place] [address] Dr. Venkat Sloan HCG RANGE SEE BELOW Normal [facility] Comment on above: Result Comment: 5-50 0.2-1 WEEK 50-500 1-2 WEEKS 100-5,000 2-3 WEEKS 500-10,000 3-4 WEEKS 1,000-50,000 4-5 WEEKS 10,000-100,000 5-6 WEEKS 15,000-200,000 6-8 WEEKS 10,000-100,000 2-3 MONTHS Performed By: #### P REGQNT #### [facility] [address] [place] [address] Dr. Venkat Sloan PROGESTERONEon 05-21-2022 Progesterone 12.4 ng/mL Normal [facility] Comment on above: Result Comment: Foll icular phase 0.1 - 0.9 Luteal phase 1.8 - 23.9 Ovulation phase 0.1 - 12.0 First trimester 11.0 - 44.3 Second trimester 25.4 - 83.3 Third trimester 58.7 - 214.0 Postmenopausal 0.0 - 0.1 Performed By: #### I NFLUAB #### [facility] [address] [place] [address] Dr. Venkat Sloan MRI BRAIN WO W [...] LAM VELA Date: 2022-05-04 08:42 Normal [facility] PREG QUANT HCGon 05-04-2022 HCG QUANT <1 Normal [facility] Comment on above: Performed By: #### R F #### [facility] [address] [address] [address] Venkat Sloan HCG RANGE SEE BELOW Normal [facility] Comment on above: Result Comment: 5-50 0.2-1 WEEK 50-500 1-2 WEEKS 100-5,000 2-3 WEEKS 500-10,000 3-4 WEEKS 1,000-50,000 4-5 WEEKS 10,000-100,000 5-6 WEEKS 15,000-200,000 6-8 WEEKS 10,000-100,000 2-3 MONTHS Performed By: #### R F #### [facility] [address] [place] [address] Dr. Venkat Sloan XR HYSTEROSALPINGOGRAMon XR HYSTEROSALPINGOGRAM [...] by: LAM VELA Date: 2022-05-04 16:09 Normal [facility] PROGESTERONEon 04-24-2022 Progesterone 0.4 ng/mL Normal [facility] Comment on above: Result Comment: Foll icular phase 0.1 - 0.9 Luteal phase 1.8 - 23.9 Ovulation phase 0.1 - 12.0 First trimester 11.0 - 44.3 Second trimester 25.4 - 83.3 Third trimester 58.7 - 214.0 Postmenopausal 0.0 - 0.1 Performed By: #### I NFLUAB #### [facility] [address] [place] [address] Dr. Venkat Sloan CULTURE SPUTUMon 04-02-2022 CULTURE SPUTUM Culture Observations : NORMAL RESPIRATORY NATALEE. Normal [facility] Comment on above: Performed By: #### R F #### [facility] [address] [address] [address] Venkat Sloan SPUTUM GRAM STAINon 04-02-19 23 COMMENTS Normal [facility] Comment on above: Performed By: #### R F #### [facility] [address] [place] [address] Dr. Venkat Sloan DIPHTHEROIDS Normal [facility] Comment on above: Performed By: #### R F #### [facility] [address] [address] [address] Venkat Sloan EPITHELIALS <25 Normal [facility] Comment on above: Performed By: #### R F #### [facility] [address] [address] [address] Venkat Sloan FUNGAL ELEMENTS Normal [facility] Comment on above: Performed By: #### R F #### [facility] [address] [address] [address] Venkat Sloan GRAM NEG BACILLI RARE Normal [facility] Comment on above: Performed By: #### R F #### [facility] [address] [place] [address] Dr. Venkat Sloan GRAM NEG DIPPLOCOCCI Normal [facility] Comment on above: Performed By: #### R F #### [facility] [address] [place] [address] Dr. Venkat Sloan GRAM POS BACILLI Normal [facility] Comment on above: Performed By: #### R F #### [facility] [address] [place] [address] Dr. Venkat Sloan GRAM POSITIVE COCCI RARE Normal [facility] Comment on above: Performed By: #### R F #### [facility] [address] [place] [address] Dr. Venkat Sloan WBC (Bld) [#/Vol] 10*3/uL Normal [facility] Comment on above: Performed By: #### R F #### [facility] [address] [place] [address] Dr. Venkat Sloan Covid-19 PCR ([facility])on SARS-CoV-2 (COVID-19) RNA SHIRIN+probe Ql (Unsp spec) Not detected Normal NOT DETECTED [facility] Comment on above: Result Comment: This test is not yet approved or cleared by the [place] FDA. When there are no FDA-approved or cleared tests available, and other criteria are met, FDA can make tests available under an emergency access mechanism called an Emergency Use Authorization (EUA). The EUA for this test is supported by the [place] of Health and Human Service's (HHS's) declaration [...] SARS-CoV-2. Performed By: #### P REGQNT #### [facility] [address] [place] [address] Dr. Venkat Sloan INFLUENZA A AND B AGon [facility] SEE BELOW Normal [facility] Comment on above: Result Comment: Nega tive for Flu A protein angiten. Infection due to Flu A cannot be ruled out. Flu A angiten in the sample may be below the detection limit of the test. Performed By: #### I NFLUAB #### [facility] [address] [place] [address] Dr. Venkat [facility] SEE BEL[facility] Normal [facility] Comment on above: Result Comment: Nega tive for Flu B protein antigen. Infection due to Flu B cannot be ruled out. Flu B antigen in the sample may be below the detection limit of the test. Performed By: #### I NFLUAB #### [facility] [address] [place] [address] Dr. Venkat Sloan INFLUENZA A AG Negative Normal NEGATIVE SEE COMMENT [facility] Comment on above: Performed By: #### I NFLUAB #### [facility] [address] [place] [address] Dr. Venkat Sloan INFLUENZA B AG Negative Normal NEGATIVE SEE COMMENT [facility] Comment on above: Performed By: #### I NFLUAB #### [facility] [address] [place] [address] Dr. Venkat Sloan XR CHEST 2 Von [...] [address] Date: 2022-03-24 12:33 Normal [facility] Covid-19 PCR ([facility])on 02-25 SARS-CoV-2 (COVID-19) RNA SHIRIN+probe Ql (Unsp spec) Not detected Normal NOT DETECTED [facility] Comment on above: Result Comment: When [...] for this test is supported by the [place] of Health and Human Service's declaration that [...] used). Performed By: #### R F #### [facility] [address] [place] [address] Dr. Venkat Sloan INFLUENZA A AND B [facility] 03-15 [facility] SEE BELOW Normal [facility] Comment on above: Result Comment: Nega tive for Flu A protein angiten. Infection due to Flu A cannot be ruled out. Flu A angiten in the sample may be below the detection limit of the test. Performed By: #### I NFLUAB #### [facility] [address] [place] [address] Dr. Vnekat Sloan [facility] SEE BELOW Normal [facility] Comment on above: Result Comment: Nega tive for Flu B protein antigen. Infection due to Flu B cannot be ruled out. Flu B antigen in the sample may be below the detection limit of the test. Performed By: #### I NFLUAB #### [facility] [address] [place] [address] Dr. Venkat Sloan INFLUENZA A AG Negative Normal NEGATIVE SEE COMMENT [facility] Comment on above: Performed By: #### I NFLUAB #### [facility] [address] [place] [address] Dr. Venkat Sloan INFLUENZA B AG Negative Normal NEGATIVE SEE COMMENT [facility] Comment on above: Performed By: #### I NFLUAB #### [facility] [address] [place] [address] Dr. Venkat Sloan INTERNAL CONTROLS Within Normal Limits Normal Wi thin Normal Limits [facility] Comment on above: Performed By: #### I NFLUAB #### [facility] [address] [address] [address] Venkat Sloan Covid-19 PCR ([facility])on 02-25 SARS-CoV-2 (COVID-19) RNA SHIRIN+probe Ql (Unsp spec) Not detected Normal NOT DETECTED [facility] Comment on above: Result Comment: When [...] for this test is supported by the [place] of Health and Human Service's declaration that [...] used). Performed By: #### I NFLUAB #### [facility] [id number] Venkat Sloan INFLUENZA A AND B AGon 03-12 [facility] SEE BELOW Normal [facility] Comment on above: Result Comment: Nega tive for Flu A protein angiten. Infection due to Flu A cannot be ruled out. Flu A angiten in the sample may be below the detection limit of the test. Performed By: #### I NFLUAB #### [facility] [id number] Venkat [facility] SEE BELOW Normal [facility] Comment on above: Result Comment: Nega tive for Flu B protein antigen. Infection due to Flu B cannot be ruled out. Flu B antigen in the sample may be below the detection limit of the test. Performed By: #### I NFLUAB #### [facility] [address] [address] [address] Venkat Sloan INFLUENZA A AG Negative Normal NEGATIVE SEE COMMENT [facility] Comment on above: Performed By: #### I NFLUAB #### [facility] [address] [place] [address] Dr. Venkat Sloan INFLUENZA B AG Negative Normal NEGATIVE SEE COMMENT [facility] Comment on above: Performed By: #### I NFLUAB #### [facility] [address] [place] [address] Dr. Venkat Sloan INTERNAL CONTROLS Within Normal Limits Normal Wi thin Normal Limits [facility] Comment on above: Performed By: #### I NFLUAB #### [facility] [address] [place] [address] Dr. Venkat Sloan PROGESTERONEon 02-20-2022 Progesterone 0.3 ng/mL Normal [facility] Comment on above: Result Comment: Foll icular phase 0.1 - 0.9 Luteal phase 1.8 - 23.9 Ovulation phase 0.1 - 12.0 First trimester 11.0 - 44.3 Second trimester 25.4 - 83.3 Third trimester 58.7 - 214.0 Postmenopausal 0.0 - 0.1 Performed By: #### R F #### [facility] [address] [place] [address] Dr. Venkat Sloan ACTH STIMULATIONon 2 Andros Baseline 49 ng/dL Normal 41-262 [facility] Comment on above: Performed By: #### R F #### [facility] [address] [place] [address] Dr. Venkat Sloan Andros Stimulated 82 ng/dL Normal Not Estab. [facility] Comment on above: Performed By: #### R F #### [facility] [address] [place], [place] [id number] Dr. Venkat Sloan [facility]on 01-26 SARS-CoV-2 (COVID-19) RNA SHIRIN+probe Ql (Unsp spec) Not detected Normal NOT DETECTED [facility] Comment on above: Result Comment: This test is not yet approved or cleared by the [place] FDA. When there are no FDA-approved or cleared tests available, and other criteria are met, FDA can make tests available under an emergency access mechanism called an Emergency Use Authorization (EUA). The EUA for this test is supported by the [place] of Health and Human Service's (HHS's) declaration [...] SARS-CoV-2. Performed By: #### I NFLUAB #### [facility] [address] [place] [address] Dr. Venkat Sloan INFLUENZA A AND B [facility] 02-10 [facility] SEE BELOW Normal [facility] Comment on above: Result Comment: Nega tive for Flu A protein angiten. Infection due to Flu A cannot be ruled out. Flu A angiten in the sample may be below the detection limit of the test. Performed By: #### P REGQNT #### [facility] [address] [place] [address] Dr. Venkat S[facility] SEE BEL[facility] Normal [facility] Comment on above: Result Comment: Nega tive for Flu B protein antigen. Infection due to Flu B cannot be ruled out. Flu B antigen in the sample may be below the detection limit of the test. Performed By: #### P REGQNT #### [facility] [address] [place] [address] Dr. Venkat Sloan INFLUENZA A AG Negative Normal NEGATIVE SEE COMMENT [facility] Comment on above: Performed By: #### P REGQNT #### [facility] [address] [place] [address] Dr. Venkat Sloan INFLUENZA B AG Negative Normal NEGATIVE SEE COMMENT [facility] Comment on above: Performed By: #### P REGQNT #### [facility] [address] [address] [address] Venkat Sloan INTERNAL CONTROLS Within Normal Limits Normal Wi thin Normal Limits [facility] Comment on above: Performed By: #### P REGQNT #### [facility] [address] [address] [address] Venkat Sloan DHEA SERUMon 01-19-2022 Dehydroepiandrosterone (DHEA) 82 ng/dL Normal 31-701 [facility] Comment on above: Result Comment: Age [...] 89 Performed By: #### T SH #### [facility] [address] [place] [address] Dr. Venkat Sloan DHEA-SULFATEon 01-14-2022 DHEA-Sulfate 34.0 ug/dL Critically low 84.8-378.0 [facility] Comment on above: Performed By: #### R F #### [facility] [address] [place] [address] Dr. Venkat Sloan FSHon 01-14-2022 FSH 2.2 mIU/mL Normal [facility] Comment on above: Result Comment: Adul t Female: Follicular phase 3.5 - 12.5 Ovulation phase 4.7 - 21.5 Luteal phase 1.7 - 7.7 Postmenopausal 25.8 - 134.8 Performed By: #### [facility] #### [facility] [address] [address] [address] Venkat Sloan LUTEINIZING HORMONE (LH)on 1 LH 5.1 mIU/mL Normal [facility] Comment on above: Result Comment: Adul t Female: Follicular phase 2.4 - 12.6 Ovulation phase 14.0 - 95.6 Luteal phase 1.0 - 11.4 Postmenopausal 7.7 - 58.5 Performed By: #### I NFLUAB #### [facility] [address] [address] [address] Venkat Sloan PROLACTINon 01-14-2022 Prolactin 8.0 ng/mL Normal 4.8-23.3 [facility] Comment on above: Performed By: #### P ROLAC #### [facility] [address] [place] [address] Dr. Venkat Sloan CBC AUTO DIFFon 01-13-2022 BASO # 0.0 103/ul Normal 0.0-0.1 [facility] Comment on above: Performed By: #### T SH #### [facility] [address] [place] [address] Dr. Venkat Sloan Basophils/100 WBC (Bld) 0.4 % Normal 0.2-2.0 [facility] Comment on above: Performed By: #### T SH #### [facility] [address] [place] [address] Dr. Venkat Sloan EO # 0.1 103/ul Normal 0.0-0.7 [facility] Comment on above: Performed By: #### T SH #### [facility] [address] [place] [address] Dr. Venkat Sloan Eosinophils/100 WBC (Bld) 1.2 % Normal 0.9-7.0 [facility] Comment on above: Performed By: #### T SH #### [facility] [address] [place] [address] Dr. Venkat Sloan Erythrocyte distribution width (RBC) [Ratio] 12.7 % Normal 11.0-15.0 [facility] Comment on above: Performed By: #### T SH #### [facility] [address] [place] [address] Dr. Venkat Sloan Hematocrit (Bld) [Volume fraction] 41.1 % Normal 36.0-48.0 [facility] Comment on above: Performed By: #### T SH #### [facility] [address] [place] [address] Dr. Venkat Sloan Hemoglobin (Bld) [Mass/Vol] 13.1 g/dL Normal 12.0-16.0 [facility] Comment on above: Performed By: #### T SH #### [facility] [address] [place] [address] Dr. Venkat Sloan IG # 0.03 10e3/ul Normal 0.00-0.03 [facility] Comment on above: Performed By: #### T SH #### [facility] [address] [place] [address] Dr. Venkat Sloan IG % 0.3 % Normal 0.0-0.5 [facility] Comment on above: Performed By: #### T SH #### [facility] [address] [place] [address] Dr. Venkat Sloan LYMPH # 1.6 103/ul Normal 1.2-3.8 [facility] Comment on above: Performed By: #### T SH #### [facility] [address] [place] [address] Dr. Venkat Sloan Lymphocytes/100 WBC (Bld) 15.0 % Critically low 20.5-60.0 [facility] Comment on above: Performed By: #### T SH #### [facility] [address] [place] [address] Dr. Venkat Sloan MANUAL DIFF REQ NO Normal [facility] Comment on above: Performed By: #### T SH #### [facility] [address] [place] [address] Dr. Venkat Sloan MCH (RBC) [Entitic mass] 28.5 pg Normal 26.7-34.0 [facility] [facility] Comment on above: Performed By: #### T SH #### [facility] [address] [place] [address] Dr. Venkat Sloan MCHC (RBC) [Mass/Vol] 31.9 g/dL Normal 29.9-35.2 [facility] Comment on above: Performed By: #### T SH #### [facility] [address] [place] [address] Dr. Venkat Sloan MCV (RBC) [Entitic vol] 89.3 fL Normal 81.0-99.0 [facility] Comment on above: Performed By: #### T SH #### [facility] [address] [place] [address] Dr. Venkat Sloan MONO # 0.9 103/ul Critically high 0.3-0.8 [facility] Comment on above: Performed By: #### T SH #### [facility] [address] [place] [address] Dr. Venkat Sloan Monocytes/100 WBC (Bld) 8.8 % Normal 1.7-12.0 [facility] Comment on above: Performed By: #### T SH #### [facility] [address] [place] [address] Dr. Venkta Sloan NEUT # 7.9 103/ul Critically high 1.4-6.5 [facility] Comment on above: Performed By: #### T SH #### [facility] [address] [place] [address] Dr. Venkat Sloan Neutrophils/100 WBC (Bld) 74.3 % Normal 43.0-75.0 [facility] Comment on above: Performed By: #### T SH #### [facility] [address] [place] [address] Dr. Venkat Sloan Platelet mean volume (Bld) [Entitic vol] 9.2 fL Critically low 9.5-13.5 [facility] Comment on above: Performed By: #### T SH #### [facility] [address] [place] [address] Dr. Venkat Sloan PLT 300 103/ul Normal 150-450 [facility] Comment on above: Performed By: #### T SH #### [facility] [address] [place] [address] Dr. Venkat Sloan RBC 4.60 106/ul Normal 4.20-5.40 [facility] Comment on above: Performed By: #### T SH #### [facility] [address] [place] [address] Dr. Venkat Sloan WBC 10.7 103/ul Normal 4.0-11.0 [facility] Comment on above: Performed By: #### T SH #### [facility] [address] [place] [address] Dr. Venkat Sloan GLYCOHEMOGLOBIN A1Con 2021 ADA RECOMMENDATION SEE BELOW Normal [facility] Comment on above: Result Comment: ADA RECOMMENDED LIMIT 4.0 - 6.0 ADA THERAPEUTIC TARGET < 7.0 ACTION SUGGESTED > 7.0 Performed By: #### P REGQNT #### [facility] [address] [place] [address] Dr. Venkat Sloan Glucose [Mass/Vol] 100 mg/dL Normal [facility] Comment on above: Performed By: #### P REGQNT #### [facility] [address] [place] [address] Dr. Venkat Sloan HbA1c (Bld) [Mass fraction] 5.1 % Normal 4.5-6.2 [facility] Comment on above: Performed By: #### P REGQNT #### [facility] [address] [place] [address] Dr. Venkat Sloan TSHon 01-13-2022 TSH 1.098 uIU/mL Normal 0.358-3.740 [facility] Comment on above: Performed By: #### T SH #### [facility] [address] [place] [address] Dr. Venkat Sloan Covid-19 PCR ([facility])on 12-26 SARS-CoV-2 (COVID-19) RNA SHIRIN+probe Ql (Unsp spec) Not detected Normal NOT DETECTED [facility] Comment on above: Result Comment: This test is not yet approved or cleared by the [place] FDA. When there are no FDA-approved or cleared tests available, and other criteria are met, FDA can make tests available under an emergency access mechanism called an Emergency Use Authorization (EUA). The EUA for this test is supported by the Eeo Officer of Health and Human Service's (HHS's) declaration [...] SARS-CoV-2. Performed By: #### I NFLUAB #### [facility] [address] [place] [address] Dr. Venkat Sloan PREG QUANT HCGon 12-24-2021 HCG QUANT <1 Normal [facility] Comment on above: Performed By: #### P REGQNT #### [facility] [address] [place] [address] Dr. Venkat Sloan HCG RANGE SEE BELOW Normal [facility] Comment on above: Result Comment: 5-50 0.2-1 WEEK 50-500 1-2 WEEKS 100-5,000 2-3 WEEKS 500-10,000 3-4 WEEKS 1,000-50,000 4-5 WEEKS 10,000-100,000 5-6 WEEKS 15,000-200,000 6-8 WEEKS 10,000-100,000 2-3 MONTHS Performed By: #### P REGQNT #### [facility] [address] [place] [address] Dr. Venkat Sloan HCG-BETA SUBUNIT QUANTon hCG,Beta Subunit,Qnt,Serum <1 Normal [facility] Comment on above: Result Comment: Fema le (Non-) 0 - 5 (Postmenopausal) 0 - 8 . Female () Weeks of Gestation 3 6 - 71 4 10 - 750 5 217 - 7138 6 158 - 93466 7 [phone] 8 [phone] 9 56157 -[phone] 10 [phone] -[phone] 12 17007 -[phone] 14 79483 - 43916 15 50569 - 01667 16 5603 - 34746 17 3571 - 77696 18 [phone] - [phone] Aj ECLIA methodology Performed By: #### T SH #### [facility] [address] [place] [address] Dr. Venkat Sloan BRETT by IFAon 09-29-2021 Antinuclear Antibodies, IFA Negative Normal [facility] Comment on above: Result Comment: Nega tive <1:80 Borderline 1:80 Positive >1:80 ICAP nomenclature: AC-0 For more information about Hep-2 cell patterns use ANApatterns.org, the official website for the International Consensus on Antinuclear Antibody (BRETT) Patterns (ICAP). Performed By: #### A NAIFA #### [facility] [address] [place] [address] Dr. Venkat Sloan INSULINon 09-29-2021 Insulin 11.1 uIU/mL Normal 2.6-24.9 [facility] Comment on above: Performed By: #### T SH #### [facility] [address] [place] [address] Dr. Venkat Sloan ANTISTREPTOLYSIN O AB (ASO)o n 09-27-2021 Antistreptolysin O Ab <20.0 Normal 0.0-200.0 [facility] Comment on above: Performed By: #### P REGQNT #### [facility] [address] [place] [address] Dr. Venkat Sloan RHEUMATOID FACTORon 09-28-19 RA Latex Turbid. <10.0 Normal <14.0 [facility] Comment on above: Performed By: #### R F #### [facility] [address] [place] [address] Dr. Venkat Sloan CBC AUTO DIFFon 09-26-2021 BASO # 0.0 103/ul Normal 0.0-0.1 [facility] Comment on above: Performed By: #### T SH #### [facility] [address] [place] [address] Dr. Venkat Sloan Basophils/100 WBC (Bld) 0.3 % Normal 0.2-2.0 [facility] Comment on above: Performed By: #### T SH #### [facility] [address] [place] [address] Dr. Venkat Sloan EO # 0.1 103/ul Normal 0.0-0.7 [facility] Comment on above: Performed By: #### T SH #### [facility] [address] [place] [address] Dr. Venkat Sloan Eosinophils/100 WBC (Bld) 1.8 % Normal 0.9-7.0 [facility] Comment on above: Performed By: #### T SH #### [facility] [address] [place] [address] Dr. Venkat Sloan Erythrocyte distribution width (RBC) [Ratio] 12.9 % Normal 11.0-15.0 [facility] Comment on above: Performed By: #### T SH #### [facility] [address] [place] [address] Dr. Venkat Sloan Hematocrit (Bld) [Volume fraction] 39.8 % Normal 36.0-48.0 [facility] Comment on above: Performed By: #### T SH #### [facility] [address] [place] [address] Dr. Venkat Sloan Hemoglobin (Bld) [Mass/Vol] 12.7 g/dL Normal 12.0-16.0 [facility] Comment on above: Performed By: #### T SH #### [facility] [address] [place] [address] Dr. Venkat Sloan IG # 0.02 10e3/ul Normal 0.00-0.03 [facility] Comment on above: Performed By: #### T SH #### [facility] [address] [place] [address] Dr. Venkat Sloan IG % 0.3 % Normal 0.0-0.5 [facility] Comment on above: Performed By: #### T SH #### [facility] [address] [place] [address] Dr. Venkat Sloan LYMPH # 1.5 103/ul Normal 1.2-3.8 [facility] Comment on above: Performed By: #### T SH #### [facility] [address] [place] [address] Dr. Venkat Sloan Lymphocytes/100 WBC (Bld) 21.5 % Normal 20.5-60.0 [facility] Comment on above: Performed By: #### T SH #### [facility] [address] [place] [address] Dr. Venkat Sloan MANUAL DIFF REQ NO Normal [facility] Comment on above: Performed By: #### T SH #### [facility] [address] [address] [address] Venkat Sloan MCH (RBC) [Entitic mass] 28.5 pg Normal 26.7-34.0 [facility] Comment on above: Performed By: #### T SH #### [facility] [address] [place] [address] Dr. Venkat Sloan MCHC (RBC) [Mass/Vol] 31.9 g/dL Normal 29.9-35.2 [facility] Comment on above: Performed By: #### T SH #### [facility] [address] [place] [address] Dr. Venkat Sloan MCV (RBC) [Entitic vol] 89.2 fL Normal 81.0-99.0 [facility] Comment on above: Performed By: #### T SH #### [facility] [address] [place] [address] Dr. Venkat Sloan MONO # 0.5 103/ul Normal 0.3-0.8 [facility] Comment on above: Performed By: #### T SH #### [facility] [address] [place] [address] Dr. Venkat Sloan Monocytes/100 WBC (Bld) 7.6 % Normal 1.7-12.0 [facility] Comment on above: Performed By: #### T SH #### [facility] [address] [place] [address] Dr. Vnekat Sloan NEUT # 4.9 103/ul Normal 1.4-6.5 [facility] Comment on above: Performed By: #### T SH #### [facility] [address] [place] [address] Dr. Venkat Sloan Neutrophils/100 WBC (Bld) 68.5 % Normal 43.0-75.0 [facility] Comment on above: Performed By: #### T SH #### [facility] [address] [place] [address] Dr. Venkat Sloan Platelet mean volume (Bld) [Entitic vol] 8.8 fL Critically low 9.5-13.5 [facility] Comment on above: Performed By: #### T SH #### [facility] [address] [place] [address] Dr. Venkat Sloan PLT 297 103/ul Normal 150-450 [facility] Comment on above: Performed By: #### T SH #### [facility] [address] [place] [address] Dr. Venkat Sloan RBC 4.46 106/ul Normal 4.20-5.40 [facility] Comment on above: Performed By: #### T SH #### [facility] [address] [address] [address] Venkat Sloan WBC 7.1 103/ul Normal 4.0-11.0 [facility] Comment on above: Performed By: #### T SH #### [facility] [address] [place] [address] Dr. Venkat Sloan CRPon 09-26-2021 CRP [Mass/Vol] mg/L Normal <=1.0 [facility] Comment on above: Performed By: #### P REGQNT #### [facility] [address] [place] [address] Dr. Venkat Sloan FREE THYROXINE INDEX T7on FTI 2.71 Normal 1.30-4.50 [facility] Comment on above: Performed By: #### P REGQNT #### [facility] [address] [place] [address] Dr. Venkat Sloan T3U 33.0 % Normal 30.0-39.0 [facility] Comment on above: Performed By: #### P REGQNT #### [facility] [address] [place] [address] Dr. Venkat Sloan T4 [Mass/Vol] 8.20 ug/dL Normal 4.80-13.90 [facility] Comment on above: Performed By: #### P REGQNT #### [facility] [address] [place] [address] Dr. Venkat Sloan GLYCOHEMOGLOBIN A1Con 2021 ADA RECOMMENDATION SEE BELOW Normal [facility] Comment on above: Result Comment: ADA RECOMMENDED LIMIT 4.0 - 6.0 ADA THERAPEUTIC TARGET < 7.0 ACTION SUGGESTED > 7.0 Performed By: #### I NFLUAB #### [facility] [address] [address] [address] Venkat Sloan Glucose [Mass/Vol] 105 mg/dL Normal [facility] Comment on above: Performed By: #### I NFLUAB #### [facility] [address] [address] [address] Venkat Sloan HbA1c (Bld) [Mass fraction] 5.3 % Normal 4.5-6.2 [facility] Comment on above: Performed By: #### I NFLUAB #### [facility] [address] [address] [address] Venkat Sloan IRONon 09-26-2021 Iron [Mass/Vol] 49.0 ug/dL Critically low 50.0-170.0 [facility] Comment on above: Performed By: #### P REGQNT #### [facility] [address] [place] [address] Dr. Venkat Sloan LIPID PROFILEon 09-26-2021 CHOL-HDL RATIO NORM SEE BELOW Normal [facility] Comment on above: Result Comment: 3.3 - 4.4 LOW RISK 4.4 - 7.1 AVERAGE RISK 7.1 - 11.0 MODERATE RISK >11.0 HIGH RISK Performed By: #### P REGQNT #### [facility] [address] [address] [address] Venkat Sloan Cholesterol [Mass/Vol] 197 mg/dL Normal <=200 [facility] Comment on above: Performed By: #### P REGQNT #### [facility] [address] [place] [address] Dr. Venkat Sloan Cholesterol in HDL [Mass/Vol] 64 mg/dL Critically high 40-60 [facility] Comment on above: Performed By: #### P REGQNT #### [facility] [address] [address] [address] Venkat Sloan Cholesterol in LDL [Mass/Vol] 123.4 mg/dL Normal [facility] Comment on above: Performed By: #### P REGQNT #### [facility] [address] [address] [address] Venkat Sloan Cholesterol.total/Choles terol in HDL [Mass ratio] 3.1 {ratio} Normal [facility] Comment on above: Performed By: #### P REGQNT #### [facility] [address] [address] [address] Venkat Sloan HDL NORMAL > or = 60 mg/dl - LO W CARDIOVASCULAR RISK <40 mg/dl - HIGH CARDIOVASCULAR RISK Normal [facility] Comment on above: Performed By: #### P REGQNT #### [facility] [address] [place] [address] Dr. Venkat Sloan LDL CALC NORMAL SEE BELOW Normal [facility] Comment on above: Result Comment: <100 mg/dl OPTIMAL 100 - 129 mg/dl NEAR OR ABOVE OPTIMAL 130 - 159 mg/dl BORDERLINE HIGH 160 - 189 mg/dl HIGH >190 mg/dl VERY HIGH Performed By: #### P REGQNT #### [facility] [address] [address] [address] Venkat Sloan Triglyceride [Mass/Vol] 48 mg/dL Normal <=150 T [facility] Comment on above: Performed By: #### P REGQNT #### [facility] [address] [place] [address] Dr. Venkat Sloan VLDL CALC 9.6 mg/dL Normal [facility] Comment on above: Performed By: #### P REGQNT #### [facility] [address] [place] [address] Dr. Venkat Sloan PROF 14(COMP METB)on 022 Albumin [Mass/Vol] 4.0 g/dL Normal 3.4-5.0 [facility] Comment on above: Performed By: #### I NFLUAB #### [facility] [address] [place] [address] Dr. Venkat Sloan Albumin/Globulin [Mass ratio] 1.3 {ratio} Normal [facility] Comment on above: Performed By: #### I NFLUAB #### [facility] [address] [place] [address] Dr. Venkat Sloan ALP [Catalytic activity/Vol] 58 U/L Normal 46-116 [facility] Comment on above: Performed By: #### I NFLUAB #### [facility] [address] [place] [address] Dr. Venkat Sloan ALT [Catalytic activity/Vol] 20 U/L Normal 14-59 [facility] Comment on above: Performed By: #### I NFLUAB #### [facility] [address] [place] [address] Dr. Venkat Sloan Anion gap [Moles/Vol] 10.4 mmol/L Normal Th [facility] Comment on above: Performed By: #### I NFLUAB #### [facility] [address] [place] [address] Dr. Venkat Sloan AST [Catalytic activity/Vol] 11 U/L Critically low 15-37 [facility] Comment on above: Performed By: #### I NFLUAB #### [facility] [address] [place] [address] Dr. Venkat Sloan Bilirubin [Mass/Vol] 0.8 mg/dL Normal 0.2-1.0 [facility] Comment on above: Performed By: #### I NFLUAB #### [facility] [address] [place] [address] Dr. Venkat Sloan Calcium [Mass/Vol] 9.0 mg/dL Normal 8.5-10.1 [facility] Comment on above: Performed By: #### I NFLUAB #### [facility] [address] [place] [address] Dr. Venkat Sloan Chloride [Moles/Vol] 106 mmol/L Normal 98-107 [facility] Comment on above: Performed By: #### I NFLUAB #### [facility] [address] [place] [address] Dr. Venkat Sloan CO2 [Moles/Vol] 27.0 mmol/L Normal 21.0-32.0 [facility] Comment on above: Performed By: #### I NFLUAB #### [facility] [address] [place] [address] Dr. Venkat Sloan Creatinine [Mass/Vol] 0.70 mg/dL Normal 0.55-1.02 [facility] Comment on above: Performed By: #### I NFLUAB #### [facility] [address] [place] [address] Dr. Venkat Sloan EGFR-AF NAURUAN >60 Normal >=60 [facility] Comment on above: Performed By: #### I NFLUAB #### [facility] [address] [address] [address] Venkat Sloan EGFR-NON AF NAURUAN >60 Normal >=60 [facility] Comment on above: Performed By: #### I NFLUAB #### [facility] [address] [place] [address] Dr. Venkat Sloan Globulin (S) [Mass/Vol] 3.2 g/dL Normal T [facility] Comment on above: Performed By: #### I NFLUAB #### [facility] [address] [place] [address] Dr. Venkat Sloan Glucose [Mass/Vol] 92 mg/dL Normal 74-106 [facility] Comment on above: Performed By: #### I NFLUAB #### [facility] [address] [place] [address] Dr. Venkat Sloan Potassium [Moles/Vol] 4.4 mmol/L Normal 3.5-5.1 [facility] Comment on above: Performed By: #### I NFLUAB #### [facility] [address] [place] [address] Dr. Venkat Sloan Protein [Mass/Vol] 7.2 g/dL Normal 6.4-8.2 [facility] Comment on above: Performed By: #### I NFLUAB #### [facility] [address] [place] [address] Dr. Venkat Sloan Sodium [Moles/Vol] 139 mmol/L Normal 136-145 [facility] Comment on above: Performed By: #### I NFLUAB #### [facility] [address] [place] [address] Dr. Venkat Sloan Urea nitrogen [Mass/Vol] 13.0 mg/dL Normal 7.0-18.0 [facility] Comment on above: Performed By: #### I NFLUAB #### [facility] [address] [place] [address] Dr. Venkat Sloan Urea nitrogen/Creatinine [Mass ratio] 18.6 mg/mg Normal [facility] Comment on above: Performed By: #### I NFLUAB #### [facility] [address] [place] [address] Dr. Venkat Sloan TSHon 09-26-2021 TSH 1.318 uIU/mL Normal 0.358-3.740 [facility] Comment on above: Performed By: #### P REGQNT #### [facility] [address] [place] [address] Dr. Venkat Sloan URIC ACID SERUMon 09-26-2021 Urate [Mass/Vol] 3.9 mg/dL Normal 2.6-6.0 [facility] Comment on above: Performed By: #### P REGQNT #### [facility] [address] [place] [address] Dr. Venkat Sloan XR CSPINE MIN 4 [...] DUDLEY HERNÁNDEZ Date: 2021-09-24 21:16 Normal [facility] PREG QUANT HCGon 08-17-2021 HCG QUANT <1 Normal [facility] Comment on above: Performed By: #### I NFLUAB #### [facility] [address] [place] [address] Dr. Venkat Sloan HCG RANGE SEE BELOW Normal [facility] Comment on above: Result Comment: 5-50 0-1 WEEK 40-300 1-2 WEEKS 100-1,000 2-3 WEEKS 500-6,000 3-4 WEEKS 5,000-200,000 1-2 MONTHS 10,000-100,000 2-3 MONTHS 3,000-50,000 2ND TRIMESTER 1,000-50,000 3RD TRIMESTER Performed By: #### I NFLUAB #### [facility] [address] [place] [address] Dr. Venkat Sloan US PELVIS AND TRANSVAGon [...] DUDLEY HERNÁNDEZ Date: 2021-08-17 07:01 Normal [facility] COVID Quick Testingon 2020 Result Negative [employer] Other Vital Signs Date Time Vital Sign Value Performing Clinician Facility 05-22-2023 09:050 Body height 154.94 cm [facility] 05-22-2023 09:0500 Body mass index (BMI) [Ratio] 30.8 kg/m2 [facility] 05-22-2023 09:050 Body temperature 98.1 [degF] [facility] 05-22-2023 09:0500 Body weight 74.04 kg [facility] 05-22-2023 09:0500 Heart rate 78 /min [facility] 05-22-2023 09:27-0500 Respiratory rate 16 /min [facility] 05-22-2023 09:27-0500 SaO2% (BldA) [Mass fraction] 98 % [facility] 05-10-2023 15:14-0500 Body mass index (BMI) [Ratio] 30.04 kg/m2 Ricardo Jennifer DO Work Phone: [facility] 05-10-2023 15:14-0500 Body weight 72.12 kg Ricardo Jennifer DO Work Phone: [facility] 05-10-2023 15:14-0500 Diastolic blood pressure 70 mm[Hg] Ricardo Jennifer DO Work Phone: [facility] 05-10-2023 15:14-0500 Systolic blood pressure 110 mm[Hg] Ricardo Jennifer DO Work Phone: [facility] 01-27-2021 18:45-0400 Body height 154.94 cm Mohini Juan Other [employer] Other 01-27-2021 18:45-0400 Body mass index (BMI) [Ratio] 28.34 kg/m2 Mohini Juan Other [employer] Other 01-27-2021 18:45-0400 Body temperature 96.4 [degF] Mohini Juan Other [employer] Other 01-27-2021 18:45-0400 Body weight 68.04 kg Mohini Juan Other [employer] Other 01-27-2021 18:45-0400 Respiratory rate 18 /min Mohini Juan Other [employer] Other 01-27-2021 18:45-0400 SaO2% (BldA) [Mass fraction] 99 % Mohini Martinez Other [employer] Other 12-22-2020 11:45-0400 Body height 154.94 cm Dudley Freeman Other [employer] Other 12-22-2020 11:45-0400 Body mass index (BMI) [Ratio] 28.34 kg/m2 Dudley Freeman Other [employer] Other 12-22-2020 11:45-0400 Body weight 68.04 kg Dudley Freeman Other [employer] Other Encounters Encounter Date Encounter Type Care Provider Facility Start: 07-14-2023 End: 07-14-2023 ambulatory RICARDO JENNIFER Not Available Start: 06-30-2023 End: 06-30-2023 ambulatory RICARDO JENNIFER Not Available Start: 06-13-2023 End: 06-13-2023 ambulatory RICARDO JENNIFER Not Available Start: 05-26-2023 End: 05-26-2023 ambulatory RICARDO JENNIFER Not Available Start: 05-22-2023 End: 05-22-2023 ambulatory [facility] Work Phone: Start: 05-22-2023 End: 05-22-2023 Patient encounter procedure [facility] Chris Work [...] preprocedural examination DR RICARDO RODRIGUEZ . [facility] Start: 07-08-2022 End: 07-08-[address] [...] ambulatory DR IRON GARCIA . Facility:[facility] Start: 11-07-[address] RICARDO RODRIGUEZ . Facili ty:[facility] [...] abnormal findings DR IRON GARCIA . [facility] Start: 09-26-2021 End: 09-27-[address] [...] 01-27-2021 End: 01-27-2021 ambulatory Mohini Martinez Other [employer] Other Start: 01-27-2021 Office outpatient vi sit [...] 9:50 AM EST Routine [facility] [address] [place], [place] [id number] [id number] Ricardo Rodriguez, DO [address] [place] [address] [place] [address] [facility] Start: 05-10-2023 End: 05-10-2024 CBC panel - Blood by Automated count CBC Lab Routine Diabetes mellitus screening Expected: 05/10/2023 (Approximate), Expires: 05/10/2024 [facility] Work Phone: Comment on above: Expected: 05/10/2023 (Approximate), Expires: 05/10/2024 Start: 05-10-2023 End: 05-10-2024 Measurement of glucose 1 hour after glucose challenge for glucose tolerance test Glucose tolerance, 1 hour Lab Routine Diabetes mellitus screening Expected: 05/10/2023 (Approximate), Expires: 05/10/2024 [facility] Comment on above: Expected: 05/10/2023 (Approximate), Expires: 05/10/2024 Start: 11-26-2022 Influenza vaccination Influenz a Vaccine (#1) [facility] Immunizations Immunization Date Immunization Notes Care Provider [facility] 01-25-2022 influenza virus vacc ine, unspecified formulation Ricardo Rodriguez DO Work Phone: [facility] Payers Date Payer Category Payer Unknown BCBS BCBS [id number] 2022-Present [phone] [address] [place] [address] .[id number] [id number] 1993 Unknown [id number] 2.16.840.1.288619.3.579.2.593 1993 Unknown [id number] 2.16.840.1.839046.3.579.2.593 1993 Unknown [id number] 2.16.840.1.264464.3.579.2.593 1993 Unknown [id number] 2.16.840.1.886193.3.579.2.593 1993 Unknown [id number] 2.16.840.1.751587.3.579.2.593 1993 Unknown [id number] 2.16.840.1.717050.3.579.2.593 1993 Unknown [id number] 2.16.840.1.879104.3.579.2.593 1993 Unknown [id number] 2.16.840.1.265691.3.579.2.59 1993 Unknown [id number] 2.16.840.1.683933.3.579.2.59 1993 Unknown [id number] 2.16.840.1.880740.3.579.2.593 1993 Unknown [id number] 2.16.840.1.859046.3.579.2.59 1993 Unknown [id number] 2.16.840.1.300063.3.579.2.593 1993 Unknown [id number] 2.16.840.1.604533.3.579.2.59 1993 Unknown [id number] 2.16.840.1.976533.3.579.2.593 1993 Unknown [id number] 2.16.840.1.799343.3.579.2.59 1993 Unknown [id number] 2.16.840.1.378138.3.579.2.59 1993 Unknown [id number] 2.16.840.1.354641.3.579.2.59 1993 Unknown [id number] 2.16.840.1.911827.3.579.2.59 1993 Unknown [id number] 2.16.840.1.262483.3.579.2.59 1993 Unknown [id number] 2.16.840.1.902420.3.579.2.593 1993 Unknown [id number] 2.16.840.1.698010.3.579.2.593 1993 Unknown [id number] 2.16.840.1.189248.3.579.2.593 1993 Unknown [id number] 2.16.840.1.037555.3.579.2.593 1993 Unknown [id number] 2.16.840.1.959070.3.579.2.593 1993 Unknown [id number] 2.16.840.1.310118.3.579.2.593 1993 Unknown [id number] 2.16.840.1.455361.3.579.2.1259 1993 Unknown [id number] 2.16.840.1.232717.3.579.2.125 1993 Unknown [id number] 2.16.840.1.746366.3.579.2.1259 1993 Unknown [id number] 2.16.840.1.202999.3.579.2.125 1993 Unknown [id number] 2.16.840.1.661192.3.579.2.9 1993 Unknown [id number] 2.16.840.1.949129.3.579.2.125 1993 Unknown [id number] 2.16.840.1.388899.3.579.2.1259 1993 Unknown [id number] 2.16.840.1.523266.3.579.2.1259 1959 Unknown [id number] 1959 Unknown [id number] Self-pay Self Pay [id number] Unknown [id number] 2.16. 840.1.378780.19 Unknown [facility] [id number] Unknown [place] BC/BS [id number] Social History Date Type Detail Facility Unknown if ever smoked [employer] Other Start: 01-28-2023 Sex Assigned At [employer] Other Start: 01-28-2023 End: 05-22-2023 Tobacco smoking [...] nursing note reviewed. Exam conducted with a marketing information manager present. Vitals: Estimated body mass index is [...] Ricardo Rodriguez DO documented in this encounter [facility] Clinical Note 07-08-2022 Note Date & Type Note Facility 07-08-2022 Note OPERATIVE NOTE OPERATION DATE: 07/08/2022 PROCEDURE: Diagnostic laparoscopy with fulguration of ovarian endometrial implant. PREOPERATIVE DIAGNOSIS: Pelvic pain. POSTOPERATIVE DIAGNOSIS: Pelvic pain. ANESTHESIA: General. SURGEON: Ricardo Rodriguez D.O. DIALYSIS TECHNICIAN: DEVIN Miles URINE OUTPUT: Yellow and clear. [...] to Recovery Room in stable condition. [facility] Evaluation note 12-22-2020 Note Date & Type Note Facility 12-22-2020 Evaluation note Encounter Date Diagnosis Assessment Notes Nov, Irritable bowel syndrome with both constipation and diarrhea (ICD-10 - K58.2) LABS INDICATED ABOVE START TRIAL OF DICYCLOMINE 20 BID RTO 4 WEEKS [employer] Other Evaluation note Note Date & Type Note Facility Evaluation note [facility] [employer] Other Evaluation note Note Date & Type Note Facility Evaluation note Diagnosis Second trimester state, incidental Diabetes mellitus screening Screening for diabetes mellitus documented in this encounter [facility] Evaluation note Note Date & Type Note Facility Evaluation note No assessment information availa [facility] Work Phone: History general Narrative - Reported Note Date & Type Note Facility History general Narrative - Reported Type Medical History anxiety/depression Medical History IBS Surgical History TONSILLECTOMY [employer] Other History general Narrative - Reported Note Date & Type Note Facility History general Narrative - Reported [employer] Other Summary Purpose Family History No Family [...] content) DATE CREATED AUTHOR 07/13/2022 [facility] pital DATE CREATED AUTHOR AUTHOR'S ORGANIZ ATION 07/15/[address] [facility] [employer] Care Teams (unrecognized sec tion and content) Roll Repairer Relationship Specialty Start Date End Date Iron Garcia MD [address] [place] [address] PCP - General Family Medicine 11/23/22 Team Status: Active Member Role Status Dates Iron Garcia MD Primary Care Provider Active Team Status: Inactive Member Role Status Dates Iron Dima Garcia MD Primary Care Provider Active Start: [...] BE BASED ON THE PRIMARY CLINICAL RECORDS. [employer] provides no warranty or guarantee of the accuracy or completeness of information in this document.
[2023-07-18 17:51] VITALS: BP 122/72; PULSE 73
== END 2023-07-18 18:17 | disposition home or self-care (01) ==
LOC: US 07:05 → FBC 17:03
PROVIDERS: PCP Family Medicine; Visit Provider Obstetrics & Gynecology
DX: O40.3XX0 Polyhydramnios, third trimester, not applicable or unspecified (principal); Z3A.35 35 weeks gestation of pregnancy
CPT/HCPCS: 76818

== ENCOUNTER 2023-07-21 07:41 | Outpatient (OUT) | payer BC, SELFPAY ==
--- OUTSIDE RECORDS SUMMARY | 2023-07-21 07:45 | XMS_ITS | CCD ---
Author Organization [facility] Care Team Providers Care Order Runner Name Role Phone Lydia Dudley Unavailable Mohini [...] Unavailable HOY ., DR PERDUE Consulting Unavailable SIZEROCK, DR DUDLEY Emanuel Consulting Unavailable JENNIFER ., [...] Unavailable Iron Garcia MD Primary Care Provider [phone] JENNIFERCOLTENY Attending Unavailable JENNIFER, RICARDO Attending Unavailable JENNIFER, RICARDO Attending Unavailable JENNIFER, RICARDO Attending Unavailable JENNIFER, RICARDO Attending Unavailable JENNIFER, RICARDO Attending Unavailable JENNIFER, RICARDO Attending Unavailable JENNIFER, RICARDO Attending Unavailable Medications Current Medications Medication Drug Class(es) Dates Sig (Normalized) Sig (Original) [id number] 200 actuat albuterol 0.09 mg/actuat metered dose [...] DAILY NEEDED FOR NAUSEA 0 02/19/2023 Active Mfibki56-Xxen Fum-Folic Ac-Om3 (One A Day Women's Dha) 28 mg iron- 800 mcg combo pack (1 source) Start: 05-22-2023 Feyldk66-Blxe Fum-Folic Ac-Om3 (One A Day Women's Dha) [...] SARS-CoV-2 (COVID-19) RNA SHIRIN+probe Ql (Unsp spec) [facility] Urinalysis macro (dipstick) panel (U)on 05-10-2023 Bilirubin, UA Negative Negative - 4(70) +++ mg/dL [facility] Blood, UA Negative Negative - 50 Jayson/mcL [facility] Clarity, UA Clear [facility] Color, UA Yellow [facility] Glucose, UA Negative Negative - 1999(110) ++++ mg/dL [facility] Interpretation and review of laboratory results Abnormal [facility] Ketones, UA Positive Negative - 160(16) ++++ mg/dL [facility] Comment on above: trace Leukocytes, UA Trace Negative - 500+++ Lolita/mcL [facility] Nitrite, UA Negative Negative - Positive [facility] pH, UA 6.0 5 - 9 [facility] Protein, UA Negative Negative - 1999(20) ++++ mg/dL [facility] Spec Grav, UA 1.030 1 - 1.03 [facility] Urobilinogen, UA 0.2 0.2 - 12 mg/dL [facility] CBC AUTO DIFFon 07-08-2022 BASO # 0.0 103/ul Normal 0.0-0.1 [facility] Comment on above: Performed By: #### R F #### [facility] [address] [address] [address] Venkat Sloan Basophils/100 WBC (Bld) 0.5 % Normal 0.2-2.0 [facility] Comment on above: Performed By: #### R F #### [facility] [address] [place] [address] Dr. Venkat Sloan EO # 0.1 103/ul Normal 0.0-0.7 [facility] Comment on above: Performed By: #### R F #### [facility] [address] [place] [address] Dr. Venkat Sloan Eosinophils/100 WBC (Bld) 1.7 % Normal 0.9-7.0 [facility] Comment on above: Performed By: #### R F #### [facility] [address] [place] [address] Dr. Venkat Sloan Erythrocyte distribution width (RBC) [Ratio] 12.7 % Normal 11.0-15.0 [facility] Comment on above: Performed By: #### R F #### [facility] [address] [place] [address] Dr. Venkat Sloan Hematocrit (Bld) [Volume fraction] 40.4 % Normal 36.0-48.0 [facility] Comment on above: Performed By: #### R F #### [facility] [address] [place] [address] Dr. Venkat Sloan Hemoglobin (Bld) [Mass/Vol] 13.1 g/dL Normal 12.0-16.0 [facility] Comment on above: Performed By: #### R F #### [facility] [address] [place] [address] Dr. Venkat Sloan IG # 0.02 10e3/ul Normal 0.00-0.03 [facility] Comment on above: Performed By: #### R F #### [facility] [address] [place] [address] Dr. Venkat Sloan IG % 0.3 % Normal 0.0-0.5 [facility] Comment on above: Performed By: #### R F #### [facility] [address] [place] [address] Dr. Venkat Sloan LYMPH # 2.0 103/ul Normal 1.2-3.8 [facility] Comment on above: Performed By: #### R F #### [facility] [address] [place] [address] Dr. Venkat Sloan Lymphocytes/100 WBC (Bld) 26.2 % Normal 20.5-60.0 [facility] Comment on above: Performed By: #### R F #### [facility] [address] [place] [address] Dr. Venkat Sloan MANUAL DIFF REQ NO Normal [facility] Comment on above: Performed By: #### R F #### [facility] [address] [place] [address] Dr. Venkat Sloan MCH (RBC) [Entitic mass] 28.4 pg Normal 26.7-34.0 [facility] Comment on above: Performed By: #### R F #### [facility] [address] [place] [address] Dr. Venkat Sloan MCHC (RBC) [Mass/Vol] 32.4 g/dL Normal 29.9-35.2 [facility] Comment on above: Performed By: #### R F #### [facility] [address] [place] [address] Dr. Venkat Sloan MCV (RBC) [Entitic vol] 87.4 fL Normal 81.0-99.0 [facility] Comment on above: Performed By: #### R F #### [facility] [address] [place] [address] Dr. Venkat Sloan MONO # 0.7 103/ul Normal 0.3-0.8 [facility] Comment on above: Performed By: #### R F #### [facility] [address] [place] [address] Dr. Venkat Sloan Monocytes/100 WBC (Bld) 8.8 % Normal 1.7-12.0 [facility] Comment on above: Performed By: #### R F #### [facility] [address] [place] [address] Dr. Venkat Sloan NEUT # 4.8 103/ul Normal 1.4-6.5 [facility] Comment on above: Performed By: #### R F #### [facility] [address] [place] [address] Dr. Venkat Sloan Neutrophils/100 WBC (Bld) 62.5 % Normal 43.0-75.0 [facility] Comment on above: Performed By: #### R F #### [facility] [address] [place] [address] Dr. Venkat Sloan Platelet mean volume (Bld) [Entitic vol] 8.5 fL Critically low 9.5-13.5 [facility] Comment on above: Performed By: #### R F #### [facility] [address] [place] [address] Dr. Venkat Sloan PLT 331 103/ul Normal 150-450 [facility] Comment on above: Performed By: #### R F #### [facility] [address] [place] [address] Dr. Venkat Sloan RBC 4.62 106/ul Normal 4.20-5.40 [facility] Comment on above: Performed By: #### R F #### [facility] [address] [place] [address] Dr. Venkat Sloan WBC 7.7 103/ul Normal 4.0-11.0 [facility] Comment on above: Performed By: #### R F #### [facility] [address] [place] [address] Dr. Venkat Sloan PREG QUANT HCGon 07-08-2022 HCG QUANT <1 Normal [facility] Comment on above: Performed By: #### P REGQNT #### [facility] [address] [place] [address] Dr. Venkat Sloan HCG RANGE SEE BELOW Normal [facility] Comment on above: Result Comment: 5-50 0.2-1 WEEK 50-500 1-2 WEEKS 100-5,000 2-3 WEEKS 500-10,000 3-4 WEEKS 1,000-50,000 4-5 WEEKS 10,000-100,000 5-6 WEEKS 15,000-200,000 6-8 WEEKS 10,000-100,000 2-3 MONTHS Performed By: #### P REGQNT #### [facility] [address] [place] [address] Dr. Venkat Sloan PROGESTERONEon 06-23-2022 Progesterone 5.7 ng/mL Normal [facility] Comment on above: Result Comment: Foll icular phase 0.1 - 0.9 Luteal phase 1.8 - 23.9 Ovulation phase 0.1 - 12.0 First trimester 11.0 - 44.3 Second trimester 25.4 - 83.3 Third trimester 58.7 - 214.0 Postmenopausal 0.0 - 0.1 Performed By: #### T SH #### [facility] [address] [place] [address] Dr. Venkat Sloan PREG QUANT HCGon 05-31-2022 HCG QUANT 1 mIU/mL Normal [facility] Comment on above: Performed By: #### P REGQNT #### [facility] [address] [place] [address] Dr. Venkat Sloan HCG RANGE SEE BELOW Normal [facility] Comment on above: Result Comment: 5-50 0.2-1 WEEK 50-500 1-2 WEEKS 100-5,000 2-3 WEEKS 500-10,000 3-4 WEEKS 1,000-50,000 4-5 WEEKS 10,000-100,000 5-6 WEEKS 15,000-200,000 6-8 WEEKS 10,000-100,000 2-3 MONTHS Performed By: #### P REGQNT #### [facility] [address] [place] [address] Dr. Venkat Sloan PROGESTERONEon 05-21-2022 Progesterone 12.4 ng/mL Normal [facility] Comment on above: Result Comment: Foll icular phase 0.1 - 0.9 Luteal phase 1.8 - 23.9 Ovulation phase 0.1 - 12.0 First trimester 11.0 - 44.3 Second trimester 25.4 - 83.3 Third trimester 58.7 - 214.0 Postmenopausal 0.0 - 0.1 Performed By: #### I NFLUAB #### [facility] [address] [place] [address] Dr. Venkat Sloan MRI BRAIN WO W [...] LAM VELA Date: 2022-05-04 08:42 Normal [facility] PREG QUANT HCGon 05-04-2022 HCG QUANT <1 Normal [facility] Comment on above: Performed By: #### R F #### [facility] [address] [address] [address] Venkat Sloan HCG RANGE SEE BELOW Normal [facility] Comment on above: Result Comment: 5-50 0.2-1 WEEK 50-500 1-2 WEEKS 100-5,000 2-3 WEEKS 500-10,000 3-4 WEEKS 1,000-50,000 4-5 WEEKS 10,000-100,000 5-6 WEEKS 15,000-200,000 6-8 WEEKS 10,000-100,000 2-3 MONTHS Performed By: #### R F #### [facility] [address] [place] [address] Dr. Venkat Sloan XR HYSTEROSALPINGOGRAMon XR HYSTEROSALPINGOGRAM [...] 2. Unremarkable uterus. Electronically authenticated by: LAM EVLA Date: 2022-05-04 16:09 Normal [facility] PROGESTERONEon 04-24-2022 Progesterone 0.4 ng/mL Normal [facility] Comment on above: Result Comment: Foll icular phase 0.1 - 0.9 Luteal phase 1.8 - 23.9 Ovulation phase 0.1 - 12.0 First trimester 11.0 - 44.3 Second trimester 25.4 - 83.3 Third trimester 58.7 - 214.0 Postmenopausal 0.0 - 0.1 Performed By: #### I NFLUAB #### [facility] [address] [place] [address] Dr. Venkat Sloan CULTURE SPUTUMon 04-02-2022 CULTURE SPUTUM Culture Observations : NORMAL RESPIRATORY NATALEE. Normal [facility] Comment on above: Performed By: #### R F #### [facility] [address] [address] [address] Venkat Sloan SPUTUM GRAM STAINon 04-02-19 23 COMMENTS Normal [facility] Comment on above: Performed By: #### R F #### [facility] [address] [place] [address] Dr. Venkat Sloan DIPHTHEROIDS Normal [facility] Comment on above: Performed By: #### R F #### [facility] [address] [address] [address] Venkat Sloan EPITHELIALS <25 Normal [facility] Comment on above: Performed By: #### R F #### [facility] [address] [address] [address] Venkat Sloan FUNGAL ELEMENTS Normal [facility] Comment on above: Performed By: #### R F #### [facility] [address] [address] [address] Venkat Sloan GRAM NEG BACILLI RARE Normal [facility] Comment on above: Performed By: #### R F #### [facility] [address] [place] [address] Dr. Venkat Sloan GRAM NEG DIPPLOCOCCI Normal [facility] Comment on above: Performed By: #### R F #### [facility] [address] [place] [address] Dr. Venkat Sloan GRAM POS BACILLI Normal [facility] Comment on above: Performed By: #### R F #### [facility] [address] [place] [address] Dr. Venkat Sloan GRAM POSITIVE COCCI RARE Normal [facility] Comment on above: Performed By: #### R F #### [facility] [address] [place] [address] Dr. Venkat Sloan WBC (Bld) [#/Vol] 10*3/uL Normal [facility] Comment on above: Performed By: #### R F #### [facility] [address] [place] [address] Dr. Venkat Sloan Covid-19 PCR ([facility])on SARS-CoV-2 (COVID-19) RNA SHIRIN+probe Ql (Unsp spec) Not detected Normal NOT DETECTED [facility] Comment on above: Result Comment: This test is not yet approved or cleared by the [place] FDA. When there are no FDA-approved or cleared tests available, and other criteria are met, FDA can make tests available under an emergency access mechanism called an Emergency Use Authorization (EUA). The EUA for this test is supported by the [place] of Health and Human Service's (HHS's) declaration [...] SARS-CoV-2. Performed By: #### P REGQNT #### [facility] [address] [place] [address] Dr. Venkat Sloan INFLUENZA A AND B AGon [facility] SEE BELOW Normal [facility] Comment on above: Result Comment: Nega tive for Flu A protein angiten. Infection due to Flu A cannot be ruled out. Flu A angiten in the sample may be below the detection limit of the test. Performed By: #### I NFLUAB #### [facility] [address] [place] [address] Dr. Venkat [facility] SEE [facility] Normal [facility] Comment on above: Result Comment: Nega tive for Flu B protein antigen. Infection due to Flu B cannot be ruled out. Flu B antigen in the sample may be below the detection limit of the test. Performed By: #### I NFLUAB #### [facility] [address] [place] [address] Dr. Venkat Sloan INFLUENZA A AG Negative Normal NEGATIVE SEE COMMENT [facility] Comment on above: Performed By: #### I NFLUAB #### [facility] [address] [place] [address] Dr. Venkat Sloan INFLUENZA B AG Negative Normal NEGATIVE SEE COMMENT [facility] Comment on above: Performed By: #### I NFLUAB #### [facility] [address] [place] [address] Dr. Venkat Sloan XR CHEST 2 Von [...] [address] Date: 2022-03-24 12:33 Normal [facility] Covid-19 PCR ([facility])on 02-25 SARS-CoV-2 (COVID-19) RNA SHIRIN+probe Ql (Unsp spec) Not detected Normal NOT DETECTED [facility] Comment on above: Result Comment: When [...] for this test is supported by the [place] of Health and Human Service's declaration that [...] used). Performed By: #### R F #### [facility] [address] [place] [address] Dr. Venkat Sloan INFLUENZA A AND B [facility] 03-15 [facility] SEE BELOW Normal [facility] Comment on above: Result Comment: Nega tive for Flu A protein angiten. Infection due to Flu A cannot be ruled out. Flu A angiten in the sample may be below the detection limit of the test. Performed By: #### I NFLUAB #### [facility] [address] [place] [address] Dr. Venkat Sloan [facility] SEE BELOW Normal [facility] Comment on above: Result Comment: Nega tive for Flu B protein antigen. Infection due to Flu B cannot be ruled out. Flu B antigen in the sample may be below the detection limit of the test. Performed By: #### I NFLUAB #### [facility] [address] [place] [address] Dr. Venkat Sloan INFLUENZA A AG Negative Normal NEGATIVE SEE COMMENT [facility] Comment on above: Performed By: #### I NFLUAB #### [facility] [address] [place] [address] Dr. Venkat Sloan INFLUENZA B AG Negative Normal NEGATIVE SEE COMMENT [facility] Comment on above: Performed By: #### I NFLUAB #### [facility] [address] [place] [address] Dr. Venkat Sloan INTERNAL CONTROLS Within Normal Limits Normal [place] thin Normal Limits [facility] Comment on above: Performed By: #### I NFLUAB #### [facility] [address] [address] [address] Venkat Sloan Covid-19 PCR ([facility])on 02-25 SARS-CoV-2 (COVID-19) RNA SHIRIN+probe Ql (Unsp spec) Not detected Normal NOT DETECTED [facility] Comment on above: Result Comment: When [...] for this test is supported by the Registered Public Health Nurse of Health and Human Service's declaration that [...] used). Performed By: #### I NFLUAB #### [facility] [id number] Venkat Sloan INFLUENZA A AND B AGon 03-12 [facility] SEE BELOW Normal [facility] Comment on above: Result Comment: Nega tive for Flu A protein angiten. Infection due to Flu A cannot be ruled out. Flu A angiten in the sample may be below the detection limit of the test. Performed By: #### I NFLUAB #### [facility] [id number] Venkat [facility] SEE BELOW Normal [facility] Comment on above: Result Comment: Nega tive for Flu B protein antigen. Infection due to Flu B cannot be ruled out. Flu B antigen in the sample may be below the detection limit of the test. Performed By: #### I NFLUAB #### [facility] [address] [address] [address] Venkat Sloan INFLUENZA A AG Negative Normal NEGATIVE SEE COMMENT [facility] Comment on above: Performed By: #### I NFLUAB #### [facility] [address] [place] [address] Dr. Venkat Sloan INFLUENZA B AG Negative Normal NEGATIVE SEE COMMENT [facility] Comment on above: Performed By: #### I NFLUAB #### [facility] [address] [place] [address] Dr. Venkat Sloan INTERNAL CONTROLS Within Normal Limits Normal [place] thin Normal Limits [facility] Comment on above: Performed By: #### I NFLUAB #### [facility] [address] [place] [address] Dr. Venkat Sloan PROGESTERONEon 02-20-2022 Progesterone 0.3 ng/mL Normal [facility] Comment on above: Result Comment: Foll icular phase 0.1 - 0.9 Luteal phase 1.8 - 23.9 Ovulation phase 0.1 - 12.0 First trimester 11.0 - 44.3 Second trimester 25.4 - 83.3 Third trimester 58.7 - 214.0 Postmenopausal 0.0 - 0.1 Performed By: #### R F #### [facility] [address] [place] [address] Dr. Venkat Sloan ACTH STIMULATIONon 2 Andros Baseline 49 ng/dL Normal 41-262 [facility] Comment on above: Performed By: #### R F #### [facility] [address] [place] [address] Dr. Venkat Sloan Andros Stimulated 82 ng/dL Normal Not Estab. [facility] Comment on above: Performed By: #### R F #### [facility] [address] [place], [place] [id number] Dr. Venkat Sloan [facility] 01-26 SARS-CoV-2 (COVID-19) RNA SHIRIN+probe Ql (Unsp spec) Not detected Normal NOT DETECTED [facility] Comment on above: Result Comment: This test is not yet approved or cleared by the [place] FDA. When there are no FDA-approved or cleared tests available, and other criteria are met, FDA can make tests available under an emergency access mechanism called an Emergency Use Authorization (EUA). The EUA for this test is supported by the [place] of Health and Human Service's (HHS's) declaration [...] SARS-CoV-2. Performed By: #### I NFLUAB #### [facility] [address] [place] [address] Dr. Venkat Sloan INFLUENZA A AND B [facility] 02-10 [facility] SEE BELOW Normal [facility] Comment on above: Result Comment: Nega tive for Flu A protein angiten. Infection due to Flu A cannot be ruled out. Flu A angiten in the sample may be below the detection limit of the test. Performed By: #### P REGQNT #### [facility] [address] [place] [address] Dr. Venkat Sloan [facility] Normal [facility] Comment on above: Result Comment: Nega tive for Flu B protein antigen. Infection due to Flu B cannot be ruled out. Flu B antigen in the sample may be below the detection limit of the test. Performed By: #### P REGQNT #### [facility] [address] [place] [address] Dr. Venkat Sloan INFLUENZA A AG Negative Normal NEGATIVE SEE COMMENT [facility] Comment on above: Performed By: #### P REGQNT #### [facility] [address] [place] [address] Dr. Venkat Sloan INFLUENZA B AG Negative Normal NEGATIVE SEE COMMENT [facility] Comment on above: Performed By: #### P REGQNT #### [facility] [address] [address] [address] Venkat Sloan INTERNAL CONTROLS Within Normal Limits Normal [place] thin Normal Limits [facility] Comment on above: Performed By: #### P REGQNT #### [facility] [address] [address] [address] Venkat Sloan DHEA SERUMon 01-19-2022 Dehydroepiandrosterone (DHEA) 82 ng/dL Normal 31-701 [facility] Comment on above: Result Comment: [...] 701 Performed By: #### T SH #### [facility] [address] [place] [address] Dr. Venkat Sloan DHEA-SULFATEon 01-14-2022 DHEA-Sulfate 34.0 ug/dL Critically low 84.8-378.0 [facility] Comment on above: Performed By: #### R F #### [facility] [address] [place] [address] Dr. Venkat Sloan FSHon 01-14-2022 FSH 2.2 mIU/mL Normal [facility] Comment on above: Result Comment: Adul t Female: Follicular phase 3.5 - 12.5 Ovulation phase 4.7 - 21.5 Luteal phase 1.7 - 7.7 Postmenopausal 25.8 - 134.8 Performed By: #### L [facility] #### [facility] [address] [address] [address] Venkat Sloan LUTEINIZING HORMONE (LH)on 1 LH 5.1 mIU/mL Normal [facility] Comment on above: Result Comment: Adul t Female: Follicular phase 2.4 - 12.6 Ovulation phase 14.0 - 95.6 Luteal phase 1.0 - 11.4 Postmenopausal 7.7 - 58.5 Performed By: #### I NFLUAB #### [facility] [address] [address] [address] Venkat Sloan PROLACTINon 01-14-2022 Prolactin 8.0 ng/mL Normal 4.8-23.3 [facility] Comment on above: Performed By: #### P ROLAC #### [facility] [address] [place] [address] Dr. Venkat Sloan CBC AUTO DIFFon 01-13-2022 BASO # 0.0 103/ul Normal 0.0-0.1 [facility] Comment on above: Performed By: #### T SH #### [facility] [address] [place] [address] Dr. Venkat Sloan Basophils/100 WBC (Bld) 0.4 % Normal 0.2-2.0 [facility] Comment on above: Performed By: #### T SH #### [facility] [address] [place] [address] Dr. Venkat Sloan EO # 0.1 103/ul Normal 0.0-0.7 [facility] Comment on above: Performed By: #### T SH #### [facility] [address] [place] [address] Dr. Venkat Sloan Eosinophils/100 WBC (Bld) 1.2 % Normal 0.9-7.0 [facility] Comment on above: Performed By: #### T SH #### [facility] [address] [place] [address] Dr. Venkat Sloan Erythrocyte distribution width (RBC) [Ratio] 12.7 % Normal 11.0-15.0 [facility] Comment on above: Performed By: #### T SH #### [facility] [address] [place] [address] Dr. Venkat Sloan Hematocrit (Bld) [Volume fraction] 41.1 % Normal 36.0-48.0 [facility] Comment on above: Performed By: #### T SH #### [facility] Laboratory [address] [place] [address] Dr. Venkat Sloan Hemoglobin (Bld) [Mass/Vol] 13.1 g/dL Normal 12.0-16.0 [facility] Comment on above: Performed By: #### T SH #### [facility] [address] [place] [address] Dr. Venkat Sloan IG # 0.03 10e3/ul Normal 0.00-0.03 [facility] Comment on above: Performed By: #### T SH #### [facility] [address] [place] [address] Dr. Venkat Sloan IG % 0.3 % Normal 0.0-0.5 [facility] Comment on above: Performed By: #### T SH #### [facility] [address] [place] [address] Dr. Venkat Sloan LYMPH # 1.6 103/ul Normal 1.2-3.8 [facility] Comment on above: Performed By: #### T SH #### [facility] [address] [place] [address] Dr. Venkat Sloan Lymphocytes/100 WBC (Bld) 15.0 % Critically low 20.5-60.0 [facility] Comment on above: Performed By: #### T SH #### [facility] [address] [place] [address] Dr. Venkat Sloan MANUAL DIFF REQ NO Normal [facility] Comment on above: Performed By: #### T SH #### [facility] [address] [place] [address] Dr. Venkat Sloan MCH (RBC) [Entitic mass] 28.5 pg Normal 26.7-34.0 [facility] Comment on above: Performed By: #### T SH #### [facility] [address] [place] [address] Dr. Venkat Sloan MCHC (RBC) [Mass/Vol] 31.9 g/dL Normal 29.9-35.2 [facility] Comment on above: Performed By: #### T SH #### [facility] [address] [place] [address] Dr. Venkat Sloan MCV (RBC) [Entitic vol] 89.3 fL Normal 81.0-99.0 [facility] Comment on above: Performed By: #### T SH #### [facility] [address] [place] [address] Dr. Venkat Sloan MONO # 0.9 103/ul Critically high 0.3-0.8 [facility] Comment on above: Performed By: #### T SH #### [facility] [address] [place] [address] Dr. Venkat Sloan Monocytes/100 WBC (Bld) 8.8 % Normal 1.7-12.0 [facility] Comment on above: Performed By: #### T SH #### [facility] [address] [place] [address] Dr. Venkat Sloan NEUT # 7.9 103/ul Critically high 1.4-6.5 [facility] Comment on above: Performed By: #### T SH #### [facility] [address] [place] [address] Dr. Venkat Sloan Neutrophils/100 WBC (Bld) 74.3 % Normal 43.0-75.0 [facility] Comment on above: Performed By: #### T SH #### [facility] [address] [place] [address] Dr. Venkat Sloan Platelet mean volume (Bld) [Entitic vol] 9.2 fL Critically low 9.5-13.5 [facility] Comment on above: Performed By: #### T SH #### [facility] [address] [place] [address] Dr. Venkat Sloan PLT 300 103/ul Normal 150-450 [facility] Comment on above: Performed By: #### T SH #### [facility] [address] [place] [address] Dr. Venkat Sloan RBC 4.60 106/ul Normal 4.20-5.40 [facility] Comment on above: Performed By: #### T SH #### [facility] [address] [place] [address] Dr. Venkat Sloan WBC 10.7 103/ul Normal 4.0-11.0 [facility] Comment on above: Performed By: #### T SH #### [facility] [address] [place] [address] Dr. Venkat Sloan GLYCOHEMOGLOBIN A1Con 2021 ADA RECOMMENDATION SEE BELOW Normal [facility] Comment on above: Result Comment: ADA RECOMMENDED LIMIT 4.0 - 6.0 ADA THERAPEUTIC TARGET < 7.0 ACTION SUGGESTED > 7.0 Performed By: #### P REGQNT #### [facility] [address] [place] [address] Dr. Venkat Sloan Glucose [Mass/Vol] 100 mg/dL Normal [facility] Comment on above: Performed By: #### P REGQNT #### [facility] [address] [place] [address] Dr. Venkat Sloan HbA1c (Bld) [Mass fraction] 5.1 % Normal 4.5-6.2 [facility] Comment on above: Performed By: #### P REGQNT #### [facility] [address] [place] [address] Dr. Venkat Sloan TSHon 01-13-2022 TSH 1.098 uIU/mL Normal 0.358-3.740 [facility] Comment on above: Performed By: #### T SH #### [facility] [address] [place] [address] Dr. Venkat Sloan Covid-19 PCR ([facility])on 12-26 SARS-CoV-2 (COVID-19) RNA SHIRIN+probe Ql (Unsp spec) Not detected Normal NOT DETECTED [facility] Comment on above: Result Comment: This test is not yet approved or cleared by the [place] FDA. When there are no FDA-approved or cleared tests available, and other criteria are met, FDA can make tests available under an emergency access mechanism called an Emergency Use Authorization (EUA). The EUA for this test is supported by the Registered Public Health Nurse of Health and Human Service's (HHS's) declaration [...] SARS-CoV-2. Performed By: #### I NFLUAB #### [facility] [address] [place] [address] Dr. Venkat Sloan PREG QUANT HCGon 12-24-2021 HCG QUANT <1 Normal [facility] Comment on above: Performed By: #### P REGQNT #### [facility] [address] [place] [address] Dr. Venkat Sloan HCG RANGE SEE BELOW Normal [facility] Comment on above: Result Comment: 5-50 0.2-1 WEEK 50-500 1-2 WEEKS 100-5,000 2-3 WEEKS 500-10,000 3-4 WEEKS 1,000-50,000 4-5 WEEKS 10,000-100,000 5-6 WEEKS 15,000-200,000 6-8 WEEKS 10,000-100,000 2-3 MONTHS Performed By: #### P REGQNT #### [facility] [address] [place] [address] Dr. Venkat Sloan HCG-BETA SUBUNIT QUANTon hCG,Beta Subunit,Qnt,Serum <1 Normal [facility] Comment on above: Result Comment: Fema le (Non-) 0 - 5 (Postmenopausal) 0 - 8 . Female () Weeks of Gestation 3 6 - 71 4 10 - 750 5 217 - 7138 6 158 - 80322 7 [phone] -[id number] 8 77915 -[phone] 9 32226 -[phone] 10 92092 -529666 12 02757 -074432 14 99869 - 26145 15 52931 - 66274 16 7849 - 28144 17 1813 - 52508 18 3637 - 13254 Aj ECLIA methodology Performed By: #### T SH #### [facility] [address] [place] [address] Dr. Venkat Sloan BRETT by IFAon 09-29-2021 Antinuclear Antibodies, IFA Negative Normal [facility] Comment on above: Result Comment: Nega tive <1:80 Borderline 1:80 Positive >1:80 ICAP nomenclature: AC-0 For more information about Hep-2 cell patterns use ANApatterns.org, the official website for the International Consensus on Antinuclear Antibody (BRETT) Patterns (ICAP). Performed By: #### A NAIFA #### [facility] [address] [place] [address] Dr. Venkat Sloan INSULINon 09-29-2021 Insulin 11.1 uIU/mL Normal 2.6-24.9 [facility] Comment on above: Performed By: #### T SH #### [facility] [address] [place] [address] Dr. Venkat Sloan ANTISTREPTOLYSIN O AB (ASO)o n 09-27-2021 Antistreptolysin O Ab <20.0 Normal 0.0-200.0 [facility] Comment on above: Performed By: #### P REGQNT #### [facility] [address] [place] [address] Dr. Venkat Sloan RHEUMATOID FACTORon 09-28-19 RA Latex Turbid. <10.0 Normal <14.0 [facility] Comment on above: Performed By: #### R F #### [facility] [address] [place] [address] Dr. Venkat Sloan CBC AUTO DIFFon 09-26-2021 BASO # 0.0 103/ul Normal 0.0-0.1 [facility] Comment on above: Performed By: #### T SH #### [facility] [address] [place] [address] Dr. Venkat Sloan Basophils/100 WBC (Bld) 0.3 % Normal 0.2-2.0 [facility] Comment on above: Performed By: #### T SH #### [facility] [address] [place] [address] Dr. Venkat Sloan EO # 0.1 103/ul Normal 0.0-0.7 [facility] Comment on above: Performed By: #### T SH #### [facility] [address] [place] [address] Dr. Venkat Sloan Eosinophils/100 WBC (Bld) 1.8 % Normal 0.9-7.0 [facility] Comment on above: Performed By: #### T SH #### [facility] [address] [place] [address] Dr. Venkat Sloan Erythrocyte distribution width (RBC) [Ratio] 12.9 % Normal 11.0-15.0 [facility] Comment on above: Performed By: #### T SH #### [facility] [address] [place] [address] Dr. Venkat Sloan Hematocrit (Bld) [Volume fraction] 39.8 % Normal 36.0-48.0 [facility] Comment on above: Performed By: #### T SH #### [facility] [address] [place] [address] Dr. Venkat Sloan Hemoglobin (Bld) [Mass/Vol] 12.7 g/dL Normal 12.0-16.0 [facility] Comment on above: Performed By: #### T SH #### [facility] [address] [place] [address] Dr. Venkat Sloan IG # 0.02 10e3/ul Normal 0.00-0.03 [facility] Comment on above: Performed By: #### T SH #### [facility] [address] [place] [address] Dr. Venkat Sloan IG % 0.3 % Normal 0.0-0.5 [facility] Comment on above: Performed By: #### T SH #### [facility] [address] [place] [address] Dr. Venkat Sloan LYMPH # 1.5 103/ul Normal 1.2-3.8 [facility] Comment on above: Performed By: #### T SH #### [facility] [address] [place] [address] Dr. Venkat Sloan Lymphocytes/100 WBC (Bld) 21.5 % Normal 20.5-60.0 [facility] Comment on above: Performed By: #### T SH #### [facility] [address] [place] [address] Dr. Venkat Sloan MANUAL DIFF REQ NO Normal [facility] Comment on above: Performed By: #### T SH #### [facility] [address] [address] [address] Venkat Sloan MCH (RBC) [Entitic mass] 28.5 pg Normal 26.7-34.0 [facility] Comment on above: Performed By: #### T SH #### [facility] [address] [place] [address] Dr. Venkat Sloan MCHC (RBC) [Mass/Vol] 31.9 g/dL Normal 29.9-35.2 [facility] Comment on above: Performed By: #### T SH #### [facility] [address] [place] [address] Dr. Venkat Sloan MCV (RBC) [Entitic vol] 89.2 fL Normal 81.0-99.0 [facility] Comment on above: Performed By: #### T SH #### [facility] [address] [place] [address] Dr. Venkat Sloan MONO # 0.5 103/ul Normal 0.3-0.8 [facility] Comment on above: Performed By: #### T SH #### [facility] [address] [place] [address] Dr. Venkat Sloan Monocytes/100 WBC (Bld) 7.6 % Normal 1.7-12.0 [facility] Comment on above: Performed By: #### T SH #### [facility] [address] [place] [address] Dr. Venkat Sloan NEUT # 4.9 103/ul Normal 1.4-6.5 [facility] Comment on above: Performed By: #### T SH #### [facility] [address] [place] [address] Dr. Venkat Sloan Neutrophils/100 WBC (Bld) 68.5 % Normal 43.0-75.0 [facility] Comment on above: Performed By: #### T SH #### [facility] [address] [place] [address] Dr. Venkat Sloan Platelet mean volume (Bld) [Entitic vol] 8.8 fL Critically low 9.5-13.5 [facility] Comment on above: Performed By: #### T SH #### [facility] [address] [place] [address] Dr. Venkat Sloan PLT 297 103/ul Normal 150-450 [facility] Comment on above: Performed By: #### T SH #### [facility] [address] [place] [address] Dr. Venkat Sloan RBC 4.46 106/ul Normal 4.20-5.40 [facility] Comment on above: Performed By: #### T SH #### [facility] [address] [address] [address] Venkat Sloan WBC 7.1 103/ul Normal 4.0-11.0 [facility] Comment on above: Performed By: #### T SH #### [facility] [address] [place] [address] Dr. Venkat Sloan CRPon 09-26-2021 CRP [Mass/Vol] mg/L Normal <=1.0 [facility] Comment on above: Performed By: #### P REGQNT #### [facility] [address] [place] [address] Dr. Venkat Sloan FREE THYROXINE INDEX T7on FTI 2.71 Normal 1.30-4.50 [facility] Comment on above: Performed By: #### P REGQNT #### [facility] [address] [place] [address] Dr. Venkat Sloan T3U 33.0 % Normal 30.0-39.0 [facility] Comment on above: Performed By: #### P REGQNT #### [facility] [address] [place] [address] Dr. Venkat Sloan T4 [Mass/Vol] 8.20 ug/dL Normal 4.80-13.90 [facility] Comment on above: Performed By: #### P REGQNT #### [facility] [address] [place] [address] Dr. Venkat Sloan GLYCOHEMOGLOBIN A1Con 2021 ADA RECOMMENDATION SEE BELOW Normal [facility] Comment on above: Result Comment: ADA RECOMMENDED LIMIT 4.0 - 6.0 ADA THERAPEUTIC TARGET < 7.0 ACTION SUGGESTED > 7.0 Performed By: #### I NFLUAB #### [facility] [address] [address] [address] Venkat Sloan Glucose [Mass/Vol] 105 mg/dL Normal [facility] Comment on above: Performed By: #### I NFLUAB #### [facility] [address] [address] [address] Venkat Sloan HbA1c (Bld) [Mass fraction] 5.3 % Normal 4.5-6.2 [facility] Comment on above: Performed By: #### I NFLUAB #### [facility] [address] [address] [address] Venkat Sloan IRONon 09-26-2021 Iron [Mass/Vol] 49.0 ug/dL Critically low 50.0-170.0 [facility] Comment on above: Performed By: #### P REGQNT #### [facility] [address] [place] [address] Dr. Venkat Sloan LIPID PROFILEon 09-26-2021 CHOL-HDL RATIO NORM SEE BELOW Normal [facility] Comment on above: Result Comment: 3.3 - 4.4 LOW RISK 4.4 - 7.1 AVERAGE RISK 7.1 - 11.0 MODERATE RISK >11.0 HIGH RISK Performed By: #### P REGQNT #### [facility] [address] [address] [address] Venkat Sloan Cholesterol [Mass/Vol] 197 mg/dL Normal <=200 [facility] Comment on above: Performed By: #### P REGQNT #### [facility] [address] [place] [address] Dr. Venkat Sloan Cholesterol in HDL [Mass/Vol] 64 mg/dL Critically high 40-60 [facility] Comment on above: Performed By: #### P REGQNT #### [facility] [address] [address] [address] Venkat Sloan Cholesterol in LDL [Mass/Vol] 123.4 mg/dL Normal [facility] Comment on above: Performed By: #### P REGQNT #### [facility] [address] [address] [address] Venkat Sloan Cholesterol.total/Choles terol in HDL [Mass ratio] 3.1 {ratio} Normal [facility] Comment on above: Performed By: #### P REGQNT #### [facility] [address] [address] [address] Venkat Sloan HDL NORMAL > or = 60 mg/dl - LO W CARDIOVASCULAR RISK <40 mg/dl - HIGH CARDIOVASCULAR RISK Normal [facility] Comment on above: Performed By: #### P REGQNT #### [facility] [address] [place] [address] Dr. Venkat Sloan LDL CALC NORMAL SEE BELOW Normal [facility] Comment on above: Result Comment: <100 mg/dl OPTIMAL 100 - 129 mg/dl NEAR OR ABOVE OPTIMAL 130 - 159 mg/dl BORDERLINE HIGH 160 - 189 mg/dl HIGH >190 mg/dl VERY HIGH Performed By: #### P REGQNT #### [facility] [address] [address] [address] Venkat Sloan Triglyceride [Mass/Vol] 48 mg/dL Normal <=150 T [facility] Comment on above: Performed By: #### P REGQNT #### [facility] [address] [place] [address] Dr. eVnkat Sloan VLDL CALC 9.6 mg/dL Normal [facility] Comment on above: Performed By: #### P REGQNT #### [facility] [address] [place] [address] Dr. Venkat Sloan PROF 14(COMP METB)on 022 Albumin [Mass/Vol] 4.0 g/dL Normal 3.4-5.0 [facility] Comment on above: Performed By: #### I NFLUAB #### [facility] [address] [place] [address] Dr. Venkat Sloan Albumin/Globulin [Mass ratio] 1.3 {ratio} Normal [facility] Comment on above: Performed By: #### I NFLUAB #### [facility] [address] [place] [address] Dr. Venkat Sloan ALP [Catalytic activity/Vol] 58 U/L Normal 46-116 [facility] Comment on above: Performed By: #### I NFLUAB #### [facility] [address] [place] [address] Dr. Venkat Sloan ALT [Catalytic activity/Vol] 20 U/L Normal 14-59 [facility] Comment on above: Performed By: #### I NFLUAB #### [facility] [address] [place] [address] Dr. Venkat Sloan Anion gap [Moles/Vol] 10.4 mmol/L Normal Th [facility] Comment on above: Performed By: #### I NFLUAB #### [facility] [address] [place] [address] Dr. Venkat Sloan AST [Catalytic activity/Vol] 11 U/L Critically low 15-37 [facility] Comment on above: Performed By: #### I NFLUAB #### [facility] [address] [place] [address] Dr. Venkat Sloan Bilirubin [Mass/Vol] 0.8 mg/dL Normal 0.2-1.0 [facility] Comment on above: Performed By: #### I NFLUAB #### [facility] [address] [place] [address] Dr. Venkat Sloan Calcium [Mass/Vol] 9.0 mg/dL Normal 8.5-10.1 [facility] Comment on above: Performed By: #### I NFLUAB #### [facility] [address] [place] [address] Dr. Venkat Sloan Chloride [Moles/Vol] 106 mmol/L Normal 98-107 [facility] Comment on above: Performed By: #### I NFLUAB #### [facility] [address] [place] [address] Dr. Venkat Sloan CO2 [Moles/Vol] 27.0 mmol/L Normal 21.0-32.0 [facility] Comment on above: Performed By: #### I NFLUAB #### [facility] [address] [place] [address] Dr. Venkat Sloan Creatinine [Mass/Vol] 0.70 mg/dL Normal 0.55-1.02 [facility] Comment on above: Performed By: #### I NFLUAB #### [facility] [address] [place] [address] Dr. Venkat Sloan EGFR-AF BERMUDIAN >60 Normal >=60 [facility] Comment on above: Performed By: #### I NFLUAB #### [facility] [address] [address] [address] Venkat Sloan EGFR-NON AF BERMUDIAN >60 Normal >=60 [facility] Comment on above: Performed By: #### I NFLUAB #### [facility] [address] [place] [address] Dr. Venkat Sloan Globulin (S) [Mass/Vol] 3.2 g/dL Normal T [facility] Comment on above: Performed By: #### I NFLUAB #### [facility] [address] [place] [address] Dr. Venkat Sloan Glucose [Mass/Vol] 92 mg/dL Normal 74-106 [facility] Comment on above: Performed By: #### I NFLUAB #### [facility] [address] [place] [address] Dr. Venkat Sloan Potassium [Moles/Vol] 4.4 mmol/L Normal 3.5-5.1 [facility] Comment on above: Performed By: #### I NFLUAB #### [facility] [address] [place] [address] Dr. Venkat Sloan Protein [Mass/Vol] 7.2 g/dL Normal 6.4-8.2 [facility] Comment on above: Performed By: #### I NFLUAB #### [facility] [address] [place] [address] Dr. Venkat lSoan Sodium [Moles/Vol] 139 mmol/L Normal 136-145 [facility] Comment on above: Performed By: #### I NFLUAB #### [facility] [address] [place] [address] Dr. Venkat Sloan Urea nitrogen [Mass/Vol] 13.0 mg/dL Normal 7.0-18.0 [facility] Comment on above: Performed By: #### I NFLUAB #### [facility] [address] [place] [address] Dr. Venkat Sloan Urea nitrogen/Creatinine [Mass ratio] 18.6 mg/mg Normal [facility] Comment on above: Performed By: #### I NFLUAB #### [facility] [address] [place] [address] Dr. Venkat Sloan TSHon 09-26-2021 TSH 1.318 uIU/mL Normal 0.358-3.740 [facility] Comment on above: Performed By: #### P REGQNT #### [facility] [address] [place] [address] Dr. Venkat Sloan URIC ACID SERUMon 09-26-2021 Urate [Mass/Vol] 3.9 mg/dL Normal 2.6-6.0 [facility] Comment on above: Performed By: #### P REGQNT #### [facility] [address] [place] [address] Dr. Venkat Sloan XR CSPINE MIN 4 [...] DUDLEY HERNÁNDEZ Date: 2021-09-24 21:16 Normal [facility] PREG QUANT HCGon 08-17-2021 HCG QUANT <1 Normal [facility] Comment on above: Performed By: #### I NFLUAB #### [facility] [address] [place] [address] Dr. Venkat Sloan HCG RANGE SEE BELOW Normal [facility] Comment on above: Result Comment: 5-50 0-1 WEEK 40-300 1-2 WEEKS 100-1,000 2-3 WEEKS 500-6,000 3-4 WEEKS 5,000-200,000 1-2 MONTHS 10,000-100,000 2-3 MONTHS 3,000-50,000 2ND TRIMESTER 1,000-50,000 3RD TRIMESTER Performed By: #### I NFLUAB #### [facility] [address] [place] [address] Dr. Venkat Sloan US PELVIS AND TRANSVAGon [...] DUDLEY HERNÁNDEZ Date: 2021-08-17 07:01 Normal [facility] COVID Quick Testingon 2020 Result Negative [facility] Other Vital Signs Date Time Vital Sign Value Performing Clinician Facility 05-22-2023 09:050 Body height 154.94 cm [facility] 05-22-2023 09:0500 Body mass index (BMI) [Ratio] 30.8 kg/m2 [facility] 05-22-2023 09:050 Body temperature 98.1 [degF] [facility] 05-22-2023 09:0500 Body weight 74.04 kg [facility] 05-22-2023 09:0500 Heart rate 78 /min [facility] 05-22-2023 09:27-0500 Respiratory rate 16 /min [facility] 05-22-2023 09:27-0500 SaO2% (BldA) [Mass fraction] 98 % [facility] 05-10-2023 15:14-0500 Body mass index (BMI) [Ratio] 30.04 kg/m2 Ricardo Jennifer DO Work Phone: [facility] 05-10-2023 15:14-0500 Body weight 72.12 kg Ricardo Jennifer DO Work Phone: [facility] 05-10-2023 15:14-0500 Diastolic blood pressure 70 mm[Hg] Ricardo Jennifer DO Work Phone: [facility] 05-10-2023 15:14-0500 Systolic blood pressure 110 mm[Hg] Ricardo Jennifer DO Work Phone: [facility] 01-27-2021 18:45-0400 Body height 154.94 cm Mohini Juan Other [facility] Other 01-27-2021 18:45-0400 Body mass index (BMI) [Ratio] 28.34 kg/m2 Mohini Juan Other [facility] Other 01-27-2021 18:45-0400 Body temperature 96.4 [degF] Mohini Juan Other [facility] Other 01-27-2021 18:45-0400 Body weight 68.04 kg Mohini Juan Other [facility] Other 01-27-2021 18:45-0400 Respiratory rate 18 /min Moihni Juan Other [facility] Other 01-27-2021 18:45-0400 SaO2% (BldA) [Mass fraction] 99 % Mohini Martinez Other [facility] Other 12-22-2020 11:45-0400 Body height 154.94 cm Dudley Freeman Other [facility] Other 12-22-2020 11:45-0400 Body mass index (BMI) [Ratio] 28.34 kg/m2 Dudley Freeman Other [facility] Other 12-22-2020 11:45-0400 Body weight 68.04 kg Dudley Freeman Other [facility] Other Encounters Encounter Date Encounter Type Care Provider Facility Start: 07-14-2023 End: 07-14-2023 ambulatory RICARDO JENNIFER Not Available Start: 06-30-2023 End: 06-30-2023 ambulatory RICARDO JENNIFER Not Available Start: 06-13-2023 End: 06-13-2023 ambulatory RICARDO JENNIFER Not Available Start: 05-26-2023 End: 05-26-2023 ambulatory RICARDO JENNIFER Not Available Start: 05-22-2023 End: 05-22-2023 ambulatory [facility] Work Phone: Start: 05-22-2023 End: 05-22-2023 Patient encounter procedure [facility] Ur[facility] Chris Work [...] preprocedural examination DR RICARDO RODRIGUEZ . [facility] Start: 07-08-2022 End: 07-08-[address] RICARDO RODRIGUEZ . Facility:[facility] Start: 06-30-2022 End: 07-01-[address] RICARDO RODRIGUEZ . Facility:[facility] Start: 06-30-2022 End: 07-01-2022 Encounter for other preprocedural examination DR RICARDO RODRIGUEZ . Facility:[facility] Start: 06-21-2022 End: 06-22-[address] RICARDO RODRIGUEZ . Facility:[facility] Start: 05-31-2022 End: 06-01-[address] IRON GRACIA . Facility:[facility] Start: 05-20-2022 End: 05-21-2022 ambulatory [...] abnormal findings DR IRON GARCIA . [facility] Start: 09-26-2021 End: 09-27-[address] [...] 01-27-2021 End: 01-27-2021 ambulatory Mohini Martinez Other [place] [employer] Other Start: 01-27-2021 Office outpatient vi sit [...] 9:50 AM EST Routine [facility] [address] [place], [place] [address] [address] Ricardo Rodriguez, DO [address] [place] [address] [place] [address] [facility] Start: 05-10-2023 End: 05-10-2024 CBC panel - Blood by Automated count CBC Lab Routine Diabetes mellitus screening Expected: 05/10/2023 (Approximate), Expires: 05/10/2024 [facility] Work Phone: Comment on above: Expected: 05/10/2023 (Approximate), Expires: 05/10/2024 Start: 05-10-2023 End: 05-10-2024 Measurement of glucose 1 hour after glucose challenge for glucose tolerance test Glucose tolerance, 1 hour Lab Routine Diabetes mellitus screening Expected: 05/10/2023 (Approximate), Expires: 05/10/2024 [facility] Comment on above: Expected: 05/10/2023 (Approximate), Expires: 05/10/2024 Start: 11-26-2022 Influenza vaccination Influenz a Vaccine (#1) [facility] Immunizations Immunization Date Immunization Notes Care Provider Fa [facility] 01-25-2022 influenza virus vacc ine, unspecified formulation Ricardo Rodriguez DO Work Phone: [facility] Payers Date Payer Category Payer Unknown BCBS BCBS xxxxxx [id number] 2022-Present [phone] [address] [place] [address] [id number] 1993 Unknown [id number] 2.16.840.1.822240.3.579.2.593 1993 Unknown [id number] 2.16.840.1.181801.3.579.2.593 1993 Unknown [id number] 2.16.840.1.766492.3.579.2.593 1993 Unknown [id number] 2.16.840.1.566820.3.579.2.593 1993 Unknown [id number] 2.16.840.1.386105.3.579.2.593 1993 Unknown [id number] 2.16.840.1.836865.3.579.2.593 1993 Unknown [id number] 2.16.840.1.155476.3.579.2.593 1993 Unknown [id number] 2.16.840.1.862202.3.579.2.59 1993 Unknown [id number] 2.16.840.1.826914.3.579.2.59 1993 Unknown [id number] 2.16.840.1.352591.3.579.2.593 1993 Unknown [id number] 2.16.840.1.086687.3.579.2.59 1993 Unknown [id number] 2.16.840.1.512603.3.579.2.593 1993 Unknown [id number] 2.16.840.1.729972.3.579.2.59 1993 Unknown [id number] 2.16.840.1.763570.3.579.2.593 1993 Unknown [id number] 2.16.840.1.180714.3.579.2.59 1993 Unknown [id number] 2.16.840.1.518422.3.579.2.59 1993 Unknown [id number] 2.16.840.1.430546.3.579.2.59 1993 Unknown [id number] 2.16.840.1.378257.3.579.2.59 1993 Unknown [id number] 2.16.840.1.229719.3.579.2.59 1993 Unknown [id number] 2.16.840.1.185922.3.579.2.593 1993 Unknown [id number] 2.16.840.1.125007.3.579.2.593 1993 Unknown [id number] 2.16.840.1.062308.3.579.2.593 1993 Unknown [id number] 2.16.840.1.434190.3.579.2.593 1993 Unknown [id number] 2.16.840.1.055582.3.579.2.593 1993 Unknown [id number] 2.16.840.1.478593.3.579.2.593 1993 Unknown [id number] 2.16.840.1.389927.3.579.2.1259 1993 Unknown [id number] 2.16.840.1.647112.3.579.2.125 1993 Unknown [id number] 2.16.840.1.611486.3.579.2.1259 1993 Unknown [id number] 2.16.840.1.667838.3.579.2.125 1993 Unknown [id number] 2.16.840.1.870297.3.579.2.9 1993 Unknown [id number] 2.16.840.1.277009.3.579.2.125 1993 Unknown [id number] 2.16.840.1.239471.3.579.2.1259 1993 Unknown [id number] 2.16.840.1.502448.3.579.2.1259 1959 Unknown [id number] 1959 Unknown [id number] Self-pay Self Pay [id number] Unknown [id number] 2.16. 840.1.369275.19 Unknown [facility] [place] [id number] Unknown [employer] BC/BS [id number] Social History Date Type Detail Facility Unknown if ever smoked [facility] Other Start: 01-28-2023 Sex Assigned At [facility] Other Start: 01-28-2023 End: 05-22-2023 Tobacco smoking [...] nursing note reviewed. Exam conducted with a imaging scheduler present. Vitals: Estimated body mass index is [...] Ricardo Rodriguez DO documented in this encounter [facility] Clinical Note 07-08-2022 Note Date & Type Note Facility 07-08-2022 Note OPERATIVE NOTE OPERATION DATE: 07/08/2022 PROCEDURE: Diagnostic laparoscopy with fulguration of ovarian endometrial implant. PREOPERATIVE DIAGNOSIS: Pelvic pain. POSTOPERATIVE DIAGNOSIS: Pelvic pain. ANESTHESIA: General. SURGEON: Ricardo Rodriguez D.O. COURTESY BUS DRIVER: DEVIN Miles URINE OUTPUT: Yellow and clear. [...] to Recovery Room in stable condition. [facility] Evaluation note 12-22-2020 Note Date & Type Note Facility 12-22-2020 Evaluation note Encounter Date Diagnosis Assessment Notes Nov, Irritable bowel syndrome with both constipation and diarrhea (ICD-10 - K58.2) LABS INDICATED ABOVE START TRIAL OF DICYCLOMINE 20 BID RTO 4 WEEKS [facility] Other Evaluation note Note Date & Type Note Facility Evaluation note [facility] [employer] Other Evaluation note Note Date & Type Note Facility Evaluation note Diagnosis Second trimester state, incidental Diabetes mellitus screening Screening for diabetes mellitus documented in this encounter [facility] Evaluation note Note Date & Type Note Facility Evaluation note No assessment information availa [facility] Work Phone: History general Narrative - Reported Note Date & Type Note Facility History general Narrative - Reported Type Medical History anxiety/depression Medical History IBS Surgical History TONSILLECTOMY [facility] Other History general Narrative - Reported Note Date & Type Note Facility History general Narrative - Reported [facility] Other Summary Purpose Family History No Family [...] DATE CREATED AUTHOR AUTHOR'S ORGANIZ ATION 07/15/2023 [facility] [employer] Care Teams (unrecognized sec tion and content) Order Runner Relationship Specialty Start Date End Date Iron Garcia MD [address] [place] [address] PCP - General Family Medicine 11/23/22 Team [...] BE BASED ON THE PRIMARY CLINICAL RECORDS. [employer] provides no warranty or guarantee of the accuracy or completeness of information in this document.
[2023-07-21 17:08] VITALS: BP 122/86; PULSE 100
--- NOTE | 2023-07-21 17:11 | US_ITS ---
[address] [address] Patient Name: ESTER BRADFORD MRN: [facility]:[id number] date: 1995 Sex: F Assigned Patient Location: [facility] Current Patient Location: Accession/Order Number: [id number] Exam Date: 07/21/2023 17:36 Report Date: 07/22/2023 07:49 At the request of: RICARDO LEGGETT Procedure: US OB BPP w non-stress EXAMINATION: US OB BPP w non-stress HISTORY: scheduled NST polyhydramnios COMPARISON: No relevant comparison available. TECHNIQUE: Ultrasound biophysical profile was performed in the radiology department. FINDINGS: BREATHING MOVEMENTS: 2 GROSS BODY MOVEMENTS: 2 TONE: 2 QUALITATIVE AMNIOTIC FLUID VOLUME: 2 PRESENTATION: Cephalic HEART RATE: 141 H.B./min AMNIOTIC FLUID VOLUME: 17.8 cm GESTATIONAL AGE: 35 weeks 6 days CONCLUSION: Total biophysical profile score: 8/8 Electronically authenticated by: DUDLEY HERNÁNDEZ Date: 07/22/2023 07:49
[2023-07-21 17:29] VITALS: PULSE 70
== END 2023-07-21 18:06 | disposition home or self-care (01) ==
LOC: FBCO 07:41 → FBC 16:59
PROVIDERS: PCP Family Medicine; Visit Provider Obstetrics & Gynecology
DX: O40.3XX0 Polyhydramnios, third trimester, not applicable or unspecified (principal); Z3A.35 35 weeks gestation of pregnancy
CPT/HCPCS: 76818; 87081

== ENCOUNTER 2023-07-21 19:41 | Outpatient (REF) | payer BC, SELFPAY ==
--- OUTSIDE RECORDS SUMMARY | 2023-07-21 19:54 | XMS_ITS | CCD ---
Author Organization [facility] Care Team Providers Care Bullet Slugs Inspector Name Role Phone Lydia Dudley Unavailable Mohini [...] Unavailable HOY ., DR PERDUE Consulting Unavailable EARLTON, DR DUDLEY Emanuel Consulting Unavailable JENNIFER ., [...] Lam Vela Consulting Unavailable JENNIFER ., DR ISLVA Admitting Unavailable JENNIFER ., DR SILVA Attending Unavailable HOY ., DR PERDUE Primary Care Unavailable JENNIFER ., DR SILVA Admitting Unavailable JENNIFER ., DR SILVA Attending Unavailable HOY ., DR PERDUE Primary Care Unavailable Iron Garcia MD Primary Care Provider [phone] JENNIFERCOLTENY Attending Unavailable JENNIFER, RICARDO Attending Unavailable JENNIFER, RICARDO Attending Unavailable JENNIFER, RICARDO Attending Unavailable JENNIFER, RICARDO Attending Unavailable JENNIFER, RICARDO Attending Unavailable JENNIFER, RICARDO Attending Unavailable JENNIFER, RICARDO Attending Unavailable Medications Current Medications Medication Drug Class(es) Dates Sig (Normalized) Sig (Original) [id number] 200 actuat albuterol 0.09 mg/actuat metered dose [...] DAILY NEEDED FOR NAUSEA 0 02/19/2023 Active [id number] Fum-Folic Ac-Om3 (One A Day Women's Dha) 28 mg iron- 800 mcg combo pack (1 source) Start: 05-22-2023 [id number] Fum-Folic Ac-Om3 (One A Day Women's Dha) [...] SARS-CoV-2 (COVID-19) RNA SHIRIN+probe Ql (Unsp spec) [facility] Urinalysis macro (dipstick) panel (U)on 05-10-2023 [...] of [place] Protein, UA Negative Negative - 1999(20) ++++ mg/dL [facility] Spec Grav, UA 1.030 1 - 1.03 [facility] Urobilinogen, UA 0.2 0.2 - 12 mg/dL [facility] CBC AUTO DIFFon 07-08-2022 BASO # 0.0 103/ul Normal 0.0-0.1 [facility] Comment on above: Performed By: #### R F #### [facility] [address] [address] [address] Venkat Sloan Basophils/100 WBC (Bld) 0.5 % Normal 0.2-2.0 [facility] Comment on above: Performed By: #### R F #### [facility] [address] [place] [address] Dr. Venkat Sloan EO # 0.1 103/ul Normal 0.0-0.7 [facility] Comment on above: Performed By: #### R F #### [facility] [address] [place] [address] Dr. Venkat Sloan Eosinophils/100 WBC (Bld) 1.7 % Normal 0.9-7.0 [facility] Comment on above: Performed By: #### R F #### [facility] [address] [place] [address] Dr. Venkat Solan Erythrocyte distribution width (RBC) [Ratio] 12.7 % Normal 11.0-15.0 [facility] Comment on above: Performed By: #### R F #### [facility] [address] [place] [address] Dr. Venkat Sloan Hematocrit (Bld) [Volume fraction] 40.4 % Normal 36.0-48.0 [facility] Comment on above: Performed By: #### R F #### [facility] [address] [place] [address] Dr. Venkat Sloan Hemoglobin (Bld) [Mass/Vol] 13.1 g/dL Normal 12.0-16.0 [facility] Comment on above: Performed By: #### R F #### [facility] [address] [place] [address] Dr. Venkat Sloan IG # 0.02 10e3/ul Normal 0.00-0.03 [facility] Comment on above: Performed By: #### R F #### [facility] [address] [place] [address] Dr. Venkat Sloan IG % 0.3 % Normal 0.0-0.5 [facility] Comment on above: Performed By: #### R F #### [facility] [address] [place] [address] Dr. Venkat Sloan LYMPH # 2.0 103/ul Normal 1.2-3.8 [facility] Comment on above: Performed By: #### R F #### [facility] [address] [place] [address] Dr. Venkat Sloan Lymphocytes/100 WBC (Bld) 26.2 % Normal 20.5-60.0 [facility] Comment on above: Performed By: #### R F #### [facility] [address] [place] [address] Dr. Venkat Sloan MANUAL DIFF REQ NO Normal [facility] Comment on above: Performed By: #### R F #### [facility] [address] [place] [address] Dr. Venkat Sloan MCH (RBC) [Entitic mass] 28.4 pg Normal 26.7-34.0 [facility] Comment on above: Performed By: #### R F #### [facility] [address] [place] [address] Dr. Venkat Sloan MCHC (RBC) [Mass/Vol] 32.4 g/dL Normal 29.9-35.2 [facility] Comment on above: Performed By: #### R F #### [facility] [address] [place] [address] Dr. Venkat Sloan MCV (RBC) [Entitic vol] 87.4 fL Normal 81.0-99.0 [facility] Comment on above: Performed By: #### R F #### [facility] [address] [place] [address] Dr. Venkat Sloan MONO # 0.7 103/ul Normal 0.3-0.8 [facility] Comment on above: Performed By: #### R F #### [facility] [address] [place] [address] Dr. Venkat Sloan Monocytes/100 WBC (Bld) 8.8 % Normal 1.7-12.0 [facility] Comment on above: Performed By: #### R F #### [facility] [address] [place] [address] Dr. Venkat Sloan NEUT # 4.8 103/ul Normal 1.4-6.5 [facility] Comment on above: Performed By: #### R F #### [facility] [address] [place] [address] Dr. Venkat Sloan Neutrophils/100 WBC (Bld) 62.5 % Normal 43.0-75.0 [facility] Comment on above: Performed By: #### R F #### [facility] [address] [place] [address] Dr. Venkat Sloan Platelet mean volume (Bld) [Entitic vol] 8.5 fL Critically low 9.5-13.5 [facility] Comment on above: Performed By: #### R F #### [facility] [address] [place] [address] Dr. Venkat Sloan PLT 331 103/ul Normal 150-450 [facility] Comment on above: Performed By: #### R F #### [facility] [address] [place] [address] Dr. Venkat Sloan RBC 4.62 106/ul Normal 4.20-5.40 [facility] Comment on above: Performed By: #### R F #### [facility] [address] [place] [address] Dr. Venkat Sloan WBC 7.7 103/ul Normal 4.0-11.0 [facility] Comment on above: Performed By: #### R F #### [facility] [address] [place] [address] Dr. Venkat Sloan PREG QUANT HCGon 07-08-2022 HCG QUANT <1 Normal [facility] Comment on above: Performed By: #### P REGQNT #### [facility] [address] [place] [address] Dr. Venkat Sloan HCG RANGE SEE BELOW Normal [facility] Comment on above: Result Comment: 5-50 0.2-1 WEEK 50-500 1-2 WEEKS 100-5,000 2-3 WEEKS 500-10,000 3-4 WEEKS 1,000-50,000 4-5 WEEKS 10,000-100,000 5-6 WEEKS 15,000-200,000 6-8 WEEKS 10,000-100,000 2-3 MONTHS Performed By: #### P REGQNT #### [facility] [address] [place] [address] Dr. Venkat Sloan PROGESTERONEon 06-23-2022 Progesterone 5.7 ng/mL Normal [facility] Comment on above: Result Comment: Foll icular phase 0.1 - 0.9 Luteal phase 1.8 - 23.9 Ovulation phase 0.1 - 12.0 First trimester 11.0 - 44.3 Second trimester 25.4 - 83.3 Third trimester 58.7 - 214.0 Postmenopausal 0.0 - 0.1 Performed By: #### T SH #### [facility] [address] [place] [address] Dr. Venkat Sloan PREG QUANT HCGon 05-31-2022 HCG QUANT 1 mIU/mL Normal [facility] Comment on above: Performed By: #### P REGQNT #### [facility] [address] [place] [address] Dr. Venkat Sloan HCG RANGE SEE BELOW Normal [facility] Comment on above: Result Comment: 5-50 0.2-1 WEEK 50-500 1-2 WEEKS 100-5,000 2-3 WEEKS 500-10,000 3-4 WEEKS 1,000-50,000 4-5 WEEKS 10,000-100,000 5-6 WEEKS 15,000-200,000 6-8 WEEKS 10,000-100,000 2-3 MONTHS Performed By: #### P REGQNT #### [facility] [address] [place] [address] Dr. Venkat Sloan PROGESTERONEon 05-21-2022 Progesterone 12.4 ng/mL Normal [facility] Comment on above: Result Comment: Foll icular phase 0.1 - 0.9 Luteal phase 1.8 - 23.9 Ovulation phase 0.1 - 12.0 First trimester 11.0 - 44.3 Second trimester 25.4 - 83.3 Third trimester 58.7 - 214.0 Postmenopausal 0.0 - 0.1 Performed By: #### I NFLUAB #### [facility] [address] [place] [address] Dr. Venkat Sloan MRI BRAIN WO W [...] LAM VELA Date: 2022-05-04 08:42 Normal [facility] PREG QUANT HCGon 05-04-2022 HCG QUANT <1 Normal [facility] Comment on above: Performed By: #### R F #### [facility] [address] [address] [address] Venkat Sloan HCG RANGE SEE BELOW Normal [facility] Comment on above: Result Comment: 5-50 0.2-1 WEEK 50-500 1-2 WEEKS 100-5,000 2-3 WEEKS 500-10,000 3-4 WEEKS 1,000-50,000 4-5 WEEKS 10,000-100,000 5-6 WEEKS 15,000-200,000 6-8 WEEKS 10,000-100,000 2-3 MONTHS Performed By: #### R F #### [facility] [address] [place] [address] Dr. Venkat Sloan XR HYSTEROSALPINGOGRAMon XR HYSTEROSALPINGOGRAM [...] by: LAM VELA Date: 2022-05-04 16:09 Normal [facility] PROGESTERONEon 04-24-2022 Progesterone 0.4 ng/mL Normal [facility] Comment on above: Result Comment: Foll icular phase 0.1 - 0.9 Luteal phase 1.8 - 23.9 Ovulation phase 0.1 - 12.0 First trimester 11.0 - 44.3 Second trimester 25.4 - 83.3 Third trimester 58.7 - 214.0 Postmenopausal 0.0 - 0.1 Performed By: #### I NFLUAB #### [facility] [address] [place] [address] Dr. Venkat Sloan CULTURE SPUTUMon 04-02-2022 CULTURE SPUTUM Culture Observations : NORMAL RESPIRATORY NATALEE. Normal [facility] Comment on above: Performed By: #### R F #### [facility] [address] [address] [address] Venkat Sloan SPUTUM GRAM STAINon 04-02-19 23 COMMENTS Normal [facility] Comment on above: Performed By: #### R F #### [facility] [address] [place] [address] Dr. Venkat Sloan DIPHTHEROIDS Normal [facility] Comment on above: Performed By: #### R F #### [facility] [address] [address] [address] Venkat Sloan EPITHELIALS <25 Normal [facility] Comment on above: Performed By: #### R F #### [facility] [address] [address] [address] Venkat Sloan FUNGAL ELEMENTS Normal [facility] Comment on above: Performed By: #### R F #### [facility] [address] [address] [address] Venkat Sloan GRAM NEG BACILLI RARE Normal [facility] Comment on above: Performed By: #### R F #### [facility] [address] [place] [address] Dr. Venkat Sloan GRAM NEG DIPPLOCOCCI Normal [facility] Comment on above: Performed By: #### R F #### [facility] [address] [place] [address] Dr. Venkat Sloan GRAM POS BACILLI Normal [facility] Comment on above: Performed By: #### R F #### [facility] [address] [place] [address] Dr. Venkat Sloan GRAM POSITIVE COCCI RARE Normal [facility] Comment on above: Performed By: #### R F #### [facility] [address] [place] [address] Dr. Venkat Sloan WBC (Bld) [#/Vol] 10*3/uL Normal [facility] Comment on above: Performed By: #### R F #### [facility] [address] [place] [address] Dr. Venkat Sloan Covid-19 PCR ([facility])on SARS-CoV-2 (COVID-19) RNA SHIRIN+probe Ql (Unsp spec) Not detected Normal NOT DETECTED [facility] Comment on above: Result Comment: This test is not yet approved or cleared by the [place] FDA. When there are no FDA-approved or cleared tests available, and other criteria are met, FDA can make tests available under an emergency access mechanism called an Emergency Use Authorization (EUA). The EUA for this test is supported by the [place] of Health and Human Service's (HHS's) declaration [...] SARS-CoV-2. Performed By: #### P REGQNT #### [facility] [address] [place] [address] Dr. Venkat Sloan INFLUENZA A AND B AGon [facility] SEE BELOW Normal [facility] Comment on above: Result Comment: Nega tive for Flu A protein angiten. Infection due to Flu A cannot be ruled out. Flu A angiten in the sample may be below the detection limit of the test. Performed By: #### I NFLUAB #### [facility] [address] [place] [address] Dr. Venkat [facility] BEL[facility] Normal [facility] Comment on above: Result Comment: Nega tive for Flu B protein antigen. Infection due to Flu B cannot be ruled out. Flu B antigen in the sample may be below the detection limit of the test. Performed By: #### I NFLUAB #### [facility] [address] [place] [address] Dr. Venkat Sloan INFLUENZA A AG Negative Normal NEGATIVE SEE COMMENT [facility] Comment on above: Performed By: #### I NFLUAB #### [facility] [address] [place] [address] Dr. Venkat Sloan INFLUENZA B AG Negative Normal NEGATIVE SEE COMMENT [facility] Comment on above: Performed By: #### I NFLUAB #### [facility] [address] [place] [address] Dr. Venkat Sloan XR CHEST 2 Von [...] [address] Date: 2022-03-24 12:33 Normal [facility] Covid-19 PCR ([facility])on 02-25 SARS-CoV-2 (COVID-19) RNA SHIRIN+probe Ql (Unsp spec) Not detected Normal NOT DETECTED [facility] Comment on above: Result Comment: When diagnostic [...] for this test is supported by the [place] of Health and Human Service's declaration that [...] used). Performed By: #### R F #### [facility] [address] [place] [address] Dr. Venkat Sloan INFLUENZA A AND B [facility] 03-15 [facility] SEE BELOW Normal [facility] Comment on above: Result Comment: Nega tive for Flu A protein angiten. Infection due to Flu A cannot be ruled out. Flu A angiten in the sample may be below the detection limit of the test. Performed By: #### I NFLUAB #### [facility] [address] [place] [address] [facility] SEE BELOW Normal [facility] Comment on above: Result Comment: Nega tive for Flu B protein antigen. Infection due to Flu B cannot be ruled out. Flu B antigen in the sample may be below the detection limit of the test. Performed By: #### I NFLUAB #### [facility] [address] [place] [address] Dr. Venkat Sloan INFLUENZA A AG Negative Normal NEGATIVE SEE COMMENT [facility] Comment on above: Performed By: #### I NFLUAB #### [facility] [address] [place] [address] Dr. Venkat Sloan INFLUENZA B AG Negative Normal NEGATIVE SEE COMMENT [facility] Comment on above: Performed By: #### I NFLUAB #### [facility] [address] [place] [address] Dr. Venkat Sloan INTERNAL CONTROLS Within Normal Limits Normal Wi thin Normal Limits The [facility] Comment on above: Performed By: #### I NFLUAB #### [facility] [address] [address] [address] Venkat Sloan Covid-19 PCR ([facility])on 02-25 SARS-CoV-2 (COVID-19) RNA SHIRIN+probe Ql (Unsp spec) Not detected Normal NOT DETECTED [facility] Comment on above: Result Comment: When diagnostic [...] for this test is supported by the [place] of Health and Human Service's declaration that [...] used). Performed By: #### I NFLUAB #### [facility] [id number] Venkat Sloan INFLUENZA A AND B AGon 03-12 [facility] SEE BELOW Normal [facility] Comment on above: Result Comment: Nega tive for Flu A protein angiten. Infection due to Flu A cannot be ruled out. Flu A angiten in the sample may be below the detection limit of the test. Performed By: #### I NFLUAB #### [facility] [id number] Venkat [facility] SEE BELOW Normal [facility] Comment on above: Result Comment: Nega tive for Flu B protein antigen. Infection due to Flu B cannot be ruled out. Flu B antigen in the sample may be below the detection limit of the test. Performed By: #### I NFLUAB #### [facility] [address] [address] [address] Venkat Sloan INFLUENZA A AG Negative Normal NEGATIVE SEE COMMENT [facility] Comment on above: Performed By: #### I NFLUAB #### [facility] [address] [place] [address] Dr. Venkat Sloan INFLUENZA B AG Negative Normal NEGATIVE SEE COMMENT [facility] Comment on above: Performed By: #### I NFLUAB #### [facility] [address] [place] [address] Dr. Venkat Sloan INTERNAL CONTROLS Within Normal Limits Normal Wi thin Normal Limits [facility] Comment on above: Performed By: #### I NFLUAB #### [facility] [address] [place] [address] Dr. Venkat Sloan PROGESTERONEon 02-20-2022 Progesterone 0.3 ng/mL Normal [facility] Comment on above: Result Comment: Foll icular phase 0.1 - 0.9 Luteal phase 1.8 - 23.9 Ovulation phase 0.1 - 12.0 First trimester 11.0 - 44.3 Second trimester 25.4 - 83.3 Third trimester 58.7 - 214.0 Postmenopausal 0.0 - 0.1 Performed By: #### R F #### [facility] [address] [place] [address] Dr. Venkat Sloan ACTH STIMULATIONon 2 Andros Baseline 49 ng/dL Normal 41-262 [facility] Comment on above: Performed By: #### R F #### [facility] [address] [place] [address] Dr. Venkat Sloan Andros Stimulated 82 ng/dL Normal Not Estab. [facility] Comment on above: Performed By: #### R F #### [facility] [address] [place], [place] [id number] Dr. Venkat Sloan [facility] SARS-CoV-2 (COVID-19) RNA SHIRIN+probe Ql (Unsp spec) Not detected Normal NOT DETECTED [facility] Comment on above: Result Comment: This test is not yet approved or cleared by the [place] FDA. When there are no FDA-approved or cleared tests available, and other criteria are met, FDA can make tests available under an emergency access mechanism called an Emergency Use Authorization (EUA). The EUA for this test is supported by the [place] of Health and Human Service's (HHS's) declaration [...] SARS-CoV-2. Performed By: #### I NFLUAB #### [facility] [address] [place] [address] Dr. Venkat Sloan INFLUENZA A AND B [facility] 02-10 [facility] SEE BELOW Normal [facility] Comment on above: Result Comment: Nega tive for Flu A protein angiten. Infection due to Flu A cannot be ruled out. Flu A angiten in the sample may be below the detection limit of the test. Performed By: #### P REGQNT #### [facility] [address] [place] [address] Dr. Venkat [facility] Normal [facility] Comment on above: Result Comment: Nega tive for Flu B protein antigen. Infection due to Flu B cannot be ruled out. Flu B antigen in the sample may be below the detection limit of the test. Performed By: #### P REGQNT #### [facility] [address] [place] [address] Dr. Venkat Sloan INFLUENZA A AG Negative Normal NEGATIVE SEE COMMENT [facility] Comment on above: Performed By: #### P REGQNT #### [facility] [address] [place] [address] Dr. Venkat Sloan INFLUENZA B AG Negative Normal NEGATIVE SEE COMMENT [facility] Comment on above: Performed By: #### P REGQNT #### [facility] [address] [address] [address] Venkat Sloan INTERNAL CONTROLS Within Normal Limits Normal Wi thin Normal Limits The [facility] Comment on above: Performed By: #### P REGQNT #### [facility] [address] [address] [address] Venkat Sloan DHEA SERUMon 01-19-2022 Dehydroepiandrosterone (DHEA) 82 ng/dL Normal 31-701 [facility] Comment on above: Result Comment: Age 1 [...] 701 Performed By: #### T SH #### [facility] [address] [place] [address] Dr. Venkat Sloan DHEA-SULFATEon 01-14-2022 DHEA-Sulfate 34.0 ug/dL Critically low 84.8-378.0 [facility] Comment on above: Performed By: #### R F #### [facility] [address] [place] [address] Dr. Venkat Sloan FSHon 01-14-2022 FSH 2.2 mIU/mL Normal [facility] Comment on above: Result Comment: Adul t Female: Follicular phase 3.5 - 12.5 Ovulation phase 4.7 - 21.5 Luteal phase 1.7 - 7.7 Postmenopausal 25.8 - 134.8 Performed By: #### L [facility] #### [facility] [facility] [address] [address] [address] Venkat Sloan LUTEINIZING HORMONE (LH)on 1 LH 5.1 mIU/mL Normal [facility] Comment on above: Result Comment: Adul t Female: Follicular phase 2.4 - 12.6 Ovulation phase 14.0 - 95.6 Luteal phase 1.0 - 11.4 Postmenopausal 7.7 - 58.5 Performed By: #### I NFLUAB #### [facility] [address] [address] [address] Venkta Sloan PROLACTINon 01-14-2022 Prolactin 8.0 ng/mL Normal 4.8-23.3 [facility] Comment on above: Performed By: #### P ROLAC #### [facility] [address] [place] [address] Dr. Venkat Sloan CBC AUTO DIFFon 01-13-2022 BASO # 0.0 103/ul Normal 0.0-0.1 [facility] Comment on above: Performed By: #### T SH #### [facility] [address] [place] [address] Dr. Venkat Sloan Basophils/100 WBC (Bld) 0.4 % Normal 0.2-2.0 [facility] Comment on above: Performed By: #### T SH #### [facility] [address] [place] [address] Dr. Venkat Sloan EO # 0.1 103/ul Normal 0.0-0.7 [facility] Comment on above: Performed By: #### T SH #### [facility] [address] [place] [address] Dr. Venkat Sloan Eosinophils/100 WBC (Bld) 1.2 % Normal 0.9-7.0 [facility] Comment on above: Performed By: #### T SH #### [facility] [address] [place] [address] Dr. Venkat Sloan Erythrocyte distribution width (RBC) [Ratio] 12.7 % Normal 11.0-15.0 [facility] Comment on above: Performed By: #### T SH #### [facility] [address] [place] [address] Dr. Venkat Sloan Hematocrit (Bld) [Volume fraction] 41.1 % Normal 36.0-48.0 [facility] Comment on above: Performed By: #### T SH #### [facility] [address] [place] [address] Dr. Venkat Sloan Hemoglobin (Bld) [Mass/Vol] 13.1 g/dL Normal 12.0-16.0 [facility] Comment on above: Performed By: #### T SH #### [facility] [address] [place] [address] Dr. Venkat Sloan IG # 0.03 10e3/ul Normal 0.00-0.03 [facility] Comment on above: Performed By: #### T SH #### [facility] [address] [place] [address] Dr. Venkat Sloan IG % 0.3 % Normal 0.0-0.5 [facility] Comment on above: Performed By: #### T SH #### [facility] [address] [place] [address] Dr. Venkat Sloan LYMPH # 1.6 103/ul Normal 1.2-3.8 [facility] Comment on above: Performed By: #### T SH #### [facility] [address] [place] [address] Dr. Venkat Sloan Lymphocytes/100 WBC (Bld) 15.0 % Critically low 20.5-60.0 [facility] Comment on above: Performed By: #### T SH #### [facility] [address] [place] [address] Dr. Venkat Sloan MANUAL DIFF REQ NO Normal [facility] Comment on above: Performed By: #### T SH #### [facility] [address] [place] [address] Dr. Venkat Sloan MCH (RBC) [Entitic mass] 28.5 pg Normal 26.7-34.0 [facility] Comment on above: Performed By: #### T SH #### [facility] [address] [place] [address] Dr. Venkat Sloan MCHC (RBC) [Mass/Vol] 31.9 g/dL Normal 29.9-35.2 [facility] Comment on above: Performed By: #### T SH #### [facility] [address] [place] [address] Dr. Venkat Sloan MCV (RBC) [Entitic vol] 89.3 fL Normal 81.0-99.0 [facility] Comment on above: Performed By: #### T SH #### [facility] [address] [place] [address] Dr. Venkat Sloan MONO # 0.9 103/ul Critically high 0.3-0.8 [facility] Comment on above: Performed By: #### T SH #### [facility] [address] [place] [address] Dr. Venkat Sloan Monocytes/100 WBC (Bld) 8.8 % Normal 1.7-12.0 [facility] Comment on above: Performed By: #### T SH #### [facility] [address] [place] [address] Dr. Venkat Sloan NEUT # 7.9 103/ul Critically high 1.4-6.5 [facility] Comment on above: Performed By: #### T SH #### [facility] [address] [place] [address] Dr. Venkat Sloan Neutrophils/100 WBC (Bld) 74.3 % Normal 43.0-75.0 [facility] Comment on above: Performed By: #### T SH #### [facility] [address] [place] [address] Dr. Venkat Sloan Platelet mean volume (Bld) [Entitic vol] 9.2 fL Critically low 9.5-13.5 [facility] Comment on above: Performed By: #### T SH #### [facility] [address] [place] [address] Dr. Venkat Sloan PLT 300 103/ul Normal 150-450 [facility] Comment on above: Performed By: #### T SH #### [facility] [address] [place] [address] Dr. Venkat Sloan RBC 4.60 106/ul Normal 4.20-5.40 [facility] Comment on above: Performed By: #### T SH #### [facility] [address] [place] [address] Dr. Venkat Sloan WBC 10.7 103/ul Normal 4.0-11.0 [facility] Comment on above: Performed By: #### T SH #### [facility] [address] [place] [address] Dr. Venkat Sloan GLYCOHEMOGLOBIN A1Con 2021 ADA RECOMMENDATION SEE BELOW Normal [facility] Comment on above: Result Comment: ADA RECOMMENDED LIMIT 4.0 - 6.0 ADA THERAPEUTIC TARGET < 7.0 ACTION SUGGESTED > 7.0 Performed By: #### P REGQNT #### [facility] [address] [place] [address] Dr. Venkat Sloan Glucose [Mass/Vol] 100 mg/dL Normal [facility] Comment on above: Performed By: #### P REGQNT #### [facility] [address] [place] [address] Dr. Venkat Sloan HbA1c (Bld) [Mass fraction] 5.1 % Normal 4.5-6.2 [facility] Comment on above: Performed By: #### P REGQNT #### [facility] [address] [place] [address] Dr. Venkat Sloan TSHon 01-13-2022 TSH 1.098 uIU/mL Normal 0.358-3.740 [facility] Comment on above: Performed By: #### T SH #### [facility] [address] [place] [address] Dr. Venkat Sloan Covid-19 PCR ([facility])on 12-26 SARS-CoV-2 (COVID-19) RNA SHIRIN+probe Ql (Unsp spec) Not detected Normal NOT DETECTED [facility] Comment on above: Result Comment: This test is not yet approved or cleared by the [place] FDA. When there are no FDA-approved or cleared tests available, and other criteria are met, FDA can make tests available under an emergency access mechanism called an Emergency Use Authorization (EUA). The EUA for this test is supported by the Substance Abuse Rn of Health and Human Service's (HHS's) declaration [...] SARS-CoV-2. Performed By: #### I NFLUAB #### [facility] [address] [place] [address] Dr. Venkat Sloan PREG QUANT HCGon 12-24-2021 HCG QUANT <1 Normal [facility] Comment on above: Performed By: #### P REGQNT #### [facility] [address] [place] [address] Dr. Venkat Sloan HCG RANGE SEE BELOW Normal [facility] Comment on above: Result Comment: 5-50 0.2-1 WEEK 50-500 1-2 WEEKS 100-5,000 2-3 WEEKS 500-10,000 3-4 WEEKS 1,000-50,000 4-5 WEEKS 10,000-100,000 5-6 WEEKS 15,000-200,000 6-8 WEEKS 10,000-100,000 2-3 MONTHS Performed By: #### P REGQNT #### [facility] [address] [place] [address] Dr. Venkat Sloan HCG-BETA SUBUNIT QUANTon hCG,Beta Subunit,Qnt,Serum <1 Normal [facility] Comment on above: Result Comment: Fema le (Non-) 0 - 5 (Postmenopausal) 0 - 8 . Female () Weeks of Gestation 3 6 - 71 4 10 - 750 5 217 - 7138 6 158 - 52430 7 [phone] 8 [phone] [phone] 9 57225 -214296 10 92110 -[phone] 12 75359 -[phone] 14 38786 - 93069 15 02707 - 91796 16 7171 - 69329 17 5174 - 91480 18 1246 - 24021 Aj ECLIA methodology Performed By: #### T SH #### [facility] [address] [place] [address] Dr. Venkat Sloan BRETT by IFAon 09-29-2021 Antinuclear Antibodies, IFA Negative Normal [facility] Comment on above: Result Comment: Nega tive <1:80 Borderline 1:80 Positive >1:80 ICAP nomenclature: AC-0 For more information about Hep-2 cell patterns use ANApatterns.org, the official website for the International Consensus on Antinuclear Antibody (BRETT) Patterns (ICAP). Performed By: #### A NAIFA #### [facility] [address] [place] [address] Dr. Venkat Sloan INSULINon 09-29-2021 Insulin 11.1 uIU/mL Normal 2.6-24.9 [facility] Comment on above: Performed By: #### T SH #### [facility] [address] [place] [address] Dr. Venkat Sloan ANTISTREPTOLYSIN O AB (ASO)o n 09-27-2021 Antistreptolysin O Ab <20.0 Normal 0.0-200.0 [facility] Comment on above: Performed By: #### P REGQNT #### [facility] [address] [place] [address] Dr. Venkat Sloan RHEUMATOID FACTORon 09-28-19 RA Latex Turbid. <10.0 Normal <14.0 [facility] Comment on above: Performed By: #### R F #### [facility] [address] [place] [address] Dr. Venkat Sloan CBC AUTO DIFFon 09-26-2021 BASO # 0.0 103/ul Normal 0.0-0.1 [facility] Comment on above: Performed By: #### T SH #### [facility] [address] [place] [address] Dr. Venkat Sloan Basophils/100 WBC (Bld) 0.3 % Normal 0.2-2.0 [facility] Comment on above: Performed By: #### T SH #### [facility] [address] [place] [address] Dr. Venkat Sloan EO # 0.1 103/ul Normal 0.0-0.7 [facility] Comment on above: Performed By: #### T SH #### [facility] [address] [place] [address] Dr. Venkat Sloan Eosinophils/100 WBC (Bld) 1.8 % Normal 0.9-7.0 [facility] Comment on above: Performed By: #### T SH #### [facility] [address] [place] [address] Dr. Venkat Sloan Erythrocyte distribution width (RBC) [Ratio] 12.9 % Normal 11.0-15.0 [facility] Comment on above: Performed By: #### T SH #### [facility] [address] [place] [address] Dr. Venkat Sloan Hematocrit (Bld) [Volume fraction] 39.8 % Normal 36.0-48.0 [facility] Comment on above: Performed By: #### T SH #### [facility] [address] [place] [address] Dr. Venkat Sloan Hemoglobin (Bld) [Mass/Vol] 12.7 g/dL Normal 12.0-16.0 [facility] Comment on above: Performed By: #### T SH #### [facility] [address] [place] [address] Dr. Venkat Sloan IG # 0.02 10e3/ul Normal 0.00-0.03 [facility] Comment on above: Performed By: #### T SH #### [facility] [address] [place] [address] Dr. Venkat Sloan IG % 0.3 % Normal 0.0-0.5 [facility] Comment on above: Performed By: #### T SH #### [facility] [address] [place] [address] Dr. Venkat Sloan LYMPH # 1.5 103/ul Normal 1.2-3.8 [facility] Comment on above: Performed By: #### T SH #### [facility] [address] [place] [address] Dr. Venkat Sloan Lymphocytes/100 WBC (Bld) 21.5 % Normal 20.5-60.0 [facility] Comment on above: Performed By: #### T SH #### [facility] [address] [place] [address] Dr. Venkat Sloan MANUAL DIFF REQ NO Normal [facility] Comment on above: Performed By: #### T SH #### [facility] [address] [address] [address] Venkat Sloan MCH (RBC) [Entitic mass] 28.5 pg Normal 26.7-34.0 [facility] Comment on above: Performed By: #### T SH #### [facility] [address] [place] [address] Dr. Venkat Sloan MCHC (RBC) [Mass/Vol] 31.9 g/dL Normal 29.9-35.2 [facility] Comment on above: Performed By: #### T SH #### [facility] [address] [place] [address] Dr. Venkat Sloan MCV (RBC) [Entitic vol] 89.2 fL Normal 81.0-99.0 [facility] Comment on above: Performed By: #### T SH #### [facility] [address] [place] [address] Dr. Venkat Sloan MONO # 0.5 103/ul Normal 0.3-0.8 [facility] Comment on above: Performed By: #### T SH #### [facility] [address] [place] [address] Dr. Venkat Sloan Monocytes/100 WBC (Bld) 7.6 % Normal 1.7-12.0 [facility] Comment on above: Performed By: #### T SH #### [facility] [address] [place] [address] Dr. Venkat Sloan NEUT # 4.9 103/ul Normal 1.4-6.5 [facility] Comment on above: Performed By: #### T SH #### [facility] [address] [place] [address] Dr. Venkat Sloan Neutrophils/100 WBC (Bld) 68.5 % Normal 43.0-75.0 [facility] Comment on above: Performed By: #### T SH #### [facility] [address] [place] [address] Dr. Venkat Sloan Platelet mean volume (Bld) [Entitic vol] 8.8 fL Critically low 9.5-13.5 [facility] Comment on above: Performed By: #### T SH #### [facility] [address] [place] [address] Dr. Venkat Sloan PLT 297 103/ul Normal 150-450 [facility] Comment on above: Performed By: #### T SH #### [facility] [address] [place] [address] Dr. Venkat Sloan RBC 4.46 106/ul Normal 4.20-5.40 [facility] Comment on above: Performed By: #### T SH #### [facility] [address] [address] [address] Venkat Sloan WBC 7.1 103/ul Normal 4.0-11.0 [facility] Comment on above: Performed By: #### T SH #### [facility] [address] [place] [address] Dr. Venkat Sloan CRPon 09-26-2021 CRP [Mass/Vol] mg/L Normal <=1.0 [facility] Comment on above: Performed By: #### P REGQNT #### [facility] [address] [place] [address] Dr. Venkat Sloan FREE THYROXINE INDEX T7on FTI 2.71 Normal 1.30-4.50 [facility] Comment on above: Performed By: #### P REGQNT #### [facility] [address] [place] [address] Dr. Venkat Sloan T3U 33.0 % Normal 30.0-39.0 [facility] Comment on above: Performed By: #### P REGQNT #### [facility] [address] [place] [address] Dr. Venkat Sloan T4 [Mass/Vol] 8.20 ug/dL Normal 4.80-13.90 [facility] Comment on above: Performed By: #### P REGQNT #### [facility] [address] [place] [address] Dr. Venkat Sloan GLYCOHEMOGLOBIN A1Con 2021 ADA RECOMMENDATION SEE BELOW Normal [facility] Comment on above: Result Comment: ADA RECOMMENDED LIMIT 4.0 - 6.0 ADA THERAPEUTIC TARGET < 7.0 ACTION SUGGESTED > 7.0 Performed By: #### I NFLUAB #### [facility] [address] [address] [address] Venkat Sloan Glucose [Mass/Vol] 105 mg/dL Normal [facility] Comment on above: Performed By: #### I NFLUAB #### [facility] [address] [address] [address] Venkat Sloan HbA1c (Bld) [Mass fraction] 5.3 % Normal 4.5-6.2 [facility] Comment on above: Performed By: #### I NFLUAB #### [facility] [address] [address] [address] Venkat Sloan IRONon 09-26-2021 Iron [Mass/Vol] 49.0 ug/dL Critically low 50.0-170.0 [facility] Comment on above: Performed By: #### P REGQNT #### [facility] [address] [place] [address] Dr. Venkat Sloan LIPID PROFILEon 09-26-2021 CHOL-HDL RATIO NORM SEE BELOW Normal [facility] Comment on above: Result Comment: 3.3 - 4.4 LOW RISK 4.4 - 7.1 AVERAGE RISK 7.1 - 11.0 MODERATE RISK >11.0 HIGH RISK Performed By: #### P REGQNT #### [facility] [address] [address] [address] Venkat Sloan Cholesterol [Mass/Vol] 197 mg/dL Normal <=200 [facility] Comment on above: Performed By: #### P REGQNT #### [facility] [address] [place] [address] Dr. Venkat Sloan Cholesterol in HDL [Mass/Vol] 64 mg/dL Critically high 40-60 [facility] Comment on above: Performed By: #### P REGQNT #### [facility] [address] [address] [address] Venkat Sloan Cholesterol in LDL [Mass/Vol] 123.4 mg/dL Normal [facility] Comment on above: Performed By: #### P REGQNT #### [facility] [address] [address] [address] Venkat Sloan Cholesterol.total/Choles terol in HDL [Mass ratio] 3.1 {ratio} Normal [facility] Comment on above: Performed By: #### P REGQNT #### [facility] [address] [address] [address] Venkat Sloan HDL NORMAL > or = 60 mg/dl - LO W CARDIOVASCULAR RISK <40 mg/dl - HIGH CARDIOVASCULAR RISK Normal [facility] Comment on above: Performed By: #### P REGQNT #### [facility] [address] [place] [address] Dr. Venkat Sloan LDL CALC NORMAL SEE BELOW Normal [facility] Comment on above: Result Comment: <100 mg/dl OPTIMAL 100 - 129 mg/dl NEAR OR ABOVE OPTIMAL 130 - 159 mg/dl BORDERLINE HIGH 160 - 189 mg/dl HIGH >190 mg/dl VERY HIGH Performed By: #### P REGQNT #### [facility] [address] [address] [address] Venkat Sloan Triglyceride [Mass/Vol] 48 mg/dL Normal <=150 [facility] Comment on above: Performed By: #### P REGQNT #### [facility] [address] [place] [address] Dr. Venkat Sloan VLDL CALC 9.6 mg/dL Normal [facility] Comment on above: Performed By: #### P REGQNT #### [facility] [address] [place] [address] Dr. Venkat Sloan PROF 14(COMP METB)on 022 Albumin [Mass/Vol] 4.0 g/dL Normal 3.4-5.0 [facility] Comment on above: Performed By: #### I NFLUAB #### [facility] [address] [place] [address] Dr. Venkat Sloan Albumin/Globulin [Mass ratio] 1.3 {ratio} Normal [facility] Comment on above: Performed By: #### I NFLUAB #### [facility] [address] [place] [address] Dr. Venkat Sloan ALP [Catalytic activity/Vol] 58 U/L Normal 46-116 [facility] Comment on above: Performed By: #### I NFLUAB #### [facility] [address] [place] [address] Dr. Venkat Sloan ALT [Catalytic activity/Vol] 20 U/L Normal 14-59 [facility] Comment on above: Performed By: #### I NFLUAB #### [facility] [address] [place] [address] Dr. Venkat Sloan Anion gap [Moles/Vol] 10.4 mmol/L Normal [facility] Comment on above: Performed By: #### I NFLUAB #### [facility] [address] [place] [address] Dr. Venkat Sloan AST [Catalytic activity/Vol] 11 U/L Critically low 15-37 [facility] Comment on above: Performed By: #### I NFLUAB #### [facility] [address] [place] [address] Dr. Venkat Sloan Bilirubin [Mass/Vol] 0.8 mg/dL Normal 0.2-1.0 [facility] Comment on above: Performed By: #### I NFLUAB #### [facility] [address] [place] [address] Dr. Venkat Sloan Calcium [Mass/Vol] 9.0 mg/dL Normal 8.5-10.1 [facility] Comment on above: Performed By: #### I NFLUAB #### [facility] [address] [place] [address] Dr. Venkat Sloan Chloride [Moles/Vol] 106 mmol/L Normal 98-107 [facility] Comment on above: Performed By: #### I NFLUAB #### [facility] [address] [place] [address] Dr. Venkat Sloan CO2 [Moles/Vol] 27.0 mmol/L Normal 21.0-32.0 [facility] Comment on above: Performed By: #### I NFLUAB #### [facility] [address] [place] [address] Dr. Venkat Sloan Creatinine [Mass/Vol] 0.70 mg/dL Normal 0.55-1.02 [facility] Comment on above: Performed By: #### I NFLUAB #### [facility] [address] [place] [address] Dr. Venkat Sloan EGFR-AF SERBIAN >60 Normal >=60 [facility] Comment on above: Performed By: #### I NFLUAB #### [facility] [address] [address] [address] Venkat Sloan EGFR-NON AF SERBIAN >60 Normal >=60 [facility] Comment on above: Performed By: #### I NFLUAB #### [facility] [address] [place] [address] Dr. Venkat Sloan Globulin (S) [Mass/Vol] 3.2 g/dL Normal [facility] Comment on above: Performed By: #### I NFLUAB #### [facility] [address] [place] [address] Dr. Venkat Sloan Glucose [Mass/Vol] 92 mg/dL Normal 74-106 [facility] Comment on above: Performed By: #### I NFLUAB #### [facility] [address] [place] [address] Dr. Venkat Sloan Potassium [Moles/Vol] 4.4 mmol/L Normal 3.5-5.1 [facility] Comment on above: Performed By: #### I NFLUAB #### [facility] [address] [place] [address] Dr. Venkat Sloan Protein [Mass/Vol] 7.2 g/dL Normal 6.4-8.2 [facility] Comment on above: Performed By: #### I NFLUAB #### [facility] [address] [place] [address] Dr. Venkat Sloan Sodium [Moles/Vol] 139 mmol/L Normal 136-145 [facility] Comment on above: Performed By: #### I NFLUAB #### [facility] [address] [place] [address] Dr. Venkat Sloan Urea nitrogen [Mass/Vol] 13.0 mg/dL Normal 7.0-18.0 [facility] Comment on above: Performed By: #### I NFLUAB #### [facility] [address] [place] [address] Dr. Venkat Sloan Urea nitrogen/Creatinine [Mass ratio] 18.6 mg/mg Normal [facility] Comment on above: Performed By: #### I NFLUAB #### [facility] [address] [place] [address] Dr. Venkat Sloan TSHon 09-26-2021 TSH 1.318 uIU/mL Normal 0.358-3.740 [facility] Comment on above: Performed By: #### P REGQNT #### [facility] [address] [place] [address] Dr. Venkat Sloan URIC ACID SERUMon 09-26-2021 Urate [Mass/Vol] 3.9 mg/dL Normal 2.6-6.0 [facility] Comment on above: Performed By: #### P REGQNT #### [facility] [address] [place] [address] Dr. Venkat Sloan XR CSPINE MIN 4 [...] DUDLEY HERNÁNDEZ Date: 2021-09-24 21:16 Normal [facility] PREG QUANT HCGon 08-17-2021 HCG QUANT <1 Normal [facility] Comment on above: Performed By: #### I NFLUAB #### [facility] [address] [place] [address] Dr. Venkat Sloan HCG RANGE SEE BELOW Normal [facility] Comment on above: Result Comment: 5-50 0-1 WEEK 40-300 1-2 WEEKS 100-1,000 2-3 WEEKS 500-6,000 3-4 WEEKS 5,000-200,000 1-2 MONTHS 10,000-100,000 2-3 MONTHS 3,000-50,000 2ND TRIMESTER 1,000-50,000 3RD TRIMESTER Performed By: #### I NFLUAB #### [facility] [address] [place] [address] Dr. Venkat Sloan US PELVIS AND TRANSVAGon [...] DUDLEY HERNÁNDEZ Date: 2021-08-17 07:01 Normal [facility] COVID Quick Testingon 2020 Result Negative [facility] Other Vital Signs Date Time Vital Sign Value Performing Clinician Facility 05-22-2023 09:050 Body height 154.94 cm [facility] 05-22-2023 09:0500 Body mass index (BMI) [Ratio] 30.8 kg/m2 [facility] 05-22-2023 09:050 Body temperature 98.1 [degF] [facility] 05-22-2023 09:0500 Body weight 74.04 kg [facility] 05-22-2023 09:0500 Heart rate 78 /min [facility] 05-22-2023 09:27-0500 Respiratory rate 16 /min [facility] 05-22-2023 09:27-0500 SaO2% (BldA) [Mass fraction] 98 % [facility] 05-10-2023 15:14-0500 Body mass index (BMI) [...] Body height 154.94 cm Mohini Juan Other [facility] 01-27-2021 18:45-0400 Body mass index (BMI) [Ratio] 28.34 kg/m2 Mohini Juan Other [facility] Other 01-27-2021 18:45-0400 Body temperature 96.4 [degF] Mohini Juan Other [facility] Other 01-27-2021 18:45-0400 Body weight 68.04 kg Mohini Juan Other [facility] Other 01-27-2021 18:45-0400 Respiratory rate 18 /min Mohini Juan Other [facility] Other 01-27-2021 18:45-0400 SaO2% (BldA) [Mass fraction] 99 % Mohini Martinez Other [facility] Other 12-22-2020 11:45-0400 Body height 154.94 cm Dudley Freeman Other [facility] Other 12-22-2020 11:45-0400 Body mass index (BMI) [Ratio] 28.34 kg/m2 Dudley Freeman Other [facility] Other 12-22-2020 11:45-0400 Body weight 68.04 kg Dudley Freeman Other [facility] Other Encounters Encounter Date Encounter Type Care Provider Facility Start: 07-14-2023 End: 07-14-2023 ambulatory RICARDO JENNIFER Not Available Start: 06-30-2023 End: 06-30-2023 ambulatory RICARDO JENNIFER Not Available Start: 06-13-2023 End: 06-13-2023 ambulatory RICARDO JENNIFER Not Available Start: 05-26-2023 End: 05-26-2023 ambulatory RICARDO JENNIFER Not Available Start: 05-22-2023 End: 05-22-2023 ambulatory [facility] Work Phone: Start: 05-22-2023 End: 05-22-2023 Patient encounter procedure [facility] Urgent Care [...] preprocedural examination DR RICARDO RODRIGUEZ . [facility] Start: 07-08-2022 End: 07-08-[address] RICARDO [...] abnormal findings DR IRON GARCIA . [facility] Start: 09-26-2021 End: 09-27-[address] IRON [...] 01-27-2021 End: 01-27-2021 ambulatory Mohini Martinez Other [facility] Other Start: 01-27-2021 Office outpatient vi sit [...] 9:50 AM EST Routine [facility] [address] [place], [place] [address] [place] [id number] Ricardo Rodriguez, DO [address] [place] [address] [place] [address] [facility] Start: 05-10-2023 End: 05-10-2024 CBC [...] Date Immunization Notes Care Provider Fa [facility] 01-25-2022 influenza virus vacc ine, unspecified formulation Ricardo Rodriguez DO Work Phone: [facility] Payers Date Payer Category Payer Unknown BCBS BCBS [id number] [id number] 2022-Present [phone] [address] [place] [address] [id number] 1993 Unknown [id number] 2.16.840.1.254989.3.579.2.593 1993 Unknown [id number] 2.16.840.1.510962.3.579.2.593 1993 Unknown [id number] 2.16.840.1.341504.3.579.2.593 1993 Unknown [id number] 2.16.840.1.132234.3.579.2.593 1993 Unknown [id number] 2.16.840.1.096310.3.579.2.593 1993 Unknown [id number] 2.16.840.1.760915.3.579.2.593 1993 Unknown [id number] 2.16.840.1.424570.3.579.2.593 1993 Unknown [id number] 2.16.840.1.572965.3.579.2.59 1993 Unknown [id number] 2.16.840.1.739290.3.579.2.59 1993 Unknown [id number] 2.16.840.1.507776.3.579.2.593 1993 Unknown [id number] 2.16.840.1.851412.3.579.2.59 1993 Unknown [id number] 2.16.840.1.343431.3.579.2.593 1993 Unknown [id number] 2.16.840.1.234550.3.579.2.59 1993 Unknown [id number] 2.16.840.1.856393.3.579.2.593 1993 Unknown [id number] 2.16.840.1.202194.3.579.2.59 1993 Unknown [id number] 2.16.840.1.429934.3.579.2.59 1993 Unknown [id number] 2.16.840.1.234570.3.579.2.59 1993 Unknown [id number] 2.16.840.1.783488.3.579.2.59 1993 Unknown [id number] 2.16.840.1.745235.3.579.2.59 1993 Unknown [id number] 2.16.840.1.132563.3.579.2.593 1993 Unknown [id number] 2.16.840.1.672875.3.579.2.593 1993 Unknown [id number] 2.16.840.1.986271.3.579.2.593 1993 Unknown [id number] 2.16.840.1.474851.3.579.2.593 1993 Unknown [id number] 2.16.840.1.281392.3.579.2.593 1993 Unknown [id number] 2.16.840.1.319333.3.579.2.593 1993 Unknown [id number] 2.16.840.1.504321.3.579.2.1259 1993 Unknown [id number] 2.16.840.1.912210.3.579.2.125 1993 Unknown [id number] 2.16.840.1.407238.3.579.2.1259 1993 Unknown [id number] 2.16.840.1.844493.3.579.2.125 1993 Unknown [id number] 2.16.840.1.676304.3.579.2.9 1993 Unknown [id number] 2.16.840.1.369970.3.579.2.125 1993 Unknown [id number] 2.16.840.1.965628.3.579.2.1259 1993 Unknown [id number] 2.16.840.1.274990.3.579.2.1259 1959 Unknown [id number] 1959 Unknown [id number] Self-pay Self Pay [id number] Unknown [id number] 2.16. 840.1.069989.19 Unknown [facility] [id number] Unknown [employer]/BS [id number] Social History Date Type Detail Facility Unknown if ever smoked [facility] Other Start: 01-28-2023 Sex Assigned At [facility] Other Start: 01-28-2023 End: 05-22-2023 Tobacco smoking [...] nursing note reviewed. Exam conducted with a retail operations manager present. Vitals: Estimated body mass index [...] pain. ANESTHESIA: General. SURGEON: Ricardo Rodriguez D.O. MILK DRYING MACHINE OPERATOR: DEVIN Miles URINE OUTPUT: Yellow [...] to Recovery Room in stable condition. [facility] Evaluation note 12-22-2020 Note Date & Type Note Facility 12-22-2020 Evaluation note Encounter Date Diagnosis Assessment Notes Nov, Irritable bowel syndrome with both constipation and diarrhea (ICD-10 - K58.2) LABS INDICATED ABOVE START TRIAL OF DICYCLOMINE 20 BID RTO 4 WEEKS [facility] Other Evaluation note Note Date & Type Note Facility Evaluation note [facility] [employer] Other Evaluation note Note Date & Type Note Facility Evaluation note Diagnosis Second trimester state, incidental Diabetes mellitus screening Screening for diabetes mellitus documented in this encounter [facility] Evaluation note Note Date & Type Note Facility Evaluation note No assessment information availa [facility] Work Phone: History general Narrative - Reported Note Date & Type Note Facility History general Narrative - Reported Type Medical History anxiety/depression Medical History IBS Surgical History TONSILLECTOMY [facility] Other History general Narrative - Reported Note Date & Type Note Facility History general Narrative - Reported [facility] Other Summary Purpose Family History No Family [...] content) DATE CREATED AUTHOR 07/13/2022 [facility] DATE CREATED AUTHOR AUTHOR'S ORGANIZ ATION 07/15/2023 [facility] [employer] Care Teams (unrecognized sec tion and content) Bullet Slugs Inspector Relationship Specialty Start Date End Date Iron Garcia MD [address] [place] [address] PCP - General Family Medicine 11/23/22 Team [...] BE BASED ON THE PRIMARY CLINICAL RECORDS. [employer] provides no warranty or guarantee of the accuracy or completeness of information in this document.
== END 2023-07-21 19:42 | disposition home or self-care (01) ==
LOC: LAB 19:41
PROVIDERS: PCP Family Medicine; Visit Provider Obstetrics & Gynecology
DX: Z34.93 Encounter for supervision of normal pregnancy, unspecified, third trimester (principal)
CPT/HCPCS: 87081

== ENCOUNTER 2023-07-25 07:18 | Outpatient (OUT) | payer BC, SELFPAY ==
--- OUTSIDE RECORDS SUMMARY | 2023-07-25 07:22 | XMS_ITS | CCD ---
Author Organization [facility] Care Team Providers Care Dual Rate Supervisor Name Role Phone Lydia Dudley Unavailable [...] Unavailable HOY ., DR PERDUE Consulting Unavailable LA PALMA, DR DUDLEY Emanuel Consulting Unavailable JENNIFER ., [...] Unavailable Iron Garcia MD Primary Care Provider [phone] JENNIFER, RICARDO Attending Unavailable JENNIFER, RICARDO Attending Unavailable JENNIFER, RICARDO Attending Unavailable JENNIFER, RICARDO Attending Unavailable JENNIFER, RICARDO Attending Unavailable JENNIFER, RICARDO Attending Unavailable JENNIFER, RICARDO Attending Unavailable JENNIFER, RICARDO Attending Unavailable JENNIFER, RICARDO Attending Unavailable Medications Current Medications Medication Drug Class(es) Dates Sig (Normalized) Sig (Original) [id number] 200 actuat albuterol 0.09 mg/actuat metered dose [...] DAILY NEEDED FOR NAUSEA 0 02/19/2023 Active [id number] Fum-Folic Ac-Om3 (One A Day Women's Dha) 28 mg iron- 800 mcg combo pack (1 source) Start: 05-22-2023 Hwhjhi09-Anbg Fum-Folic Ac-Om3 (One A Day Women's Dha) [...] SARS-CoV-2 (COVID-19) RNA SHIRIN+probe Ql (Unsp spec) [facility] Urinalysis macro (dipstick) panel (U)on 05-10-2023 Bilirubin, UA Negative Negative - 4(70) +++ mg/dL [facility] Blood, UA Negative Negative - 50 Jayson/mcL [facility] Clarity, UA Clear [facility] Color, UA Yellow [facility] Glucose, UA Negative Negative - 1999(110) ++++ mg/dL [facility] Interpretation and review of laboratory results Abnormal [facility] Ketones, UA Positive Negative - 160(16) ++++ mg/dL [facility] Comment on above: trace Leukocytes, UA Trace Negative - 500+++ Lolita/mcL [facility] Nitrite, UA Negative Negative - Positive [facility] pH, UA 6.0 5 - 9 [facility] Protein, UA Negative Negative - 1999(20) ++++ mg/dL [facility] Spec Grav, UA 1.030 1 - 1.03 [facility] Urobilinogen, UA 0.2 0.2 - 12 mg/dL [facility] CBC AUTO DIFFon 07-08-2022 BASO # 0.0 103/ul Normal 0.0-0.1 [facility] Comment on above: Performed By: #### R F #### [facility] [address] [place] [address] Dr. Venkat Sloan Basophils/100 WBC (Bld) 0.5 % Normal 0.2-2.0 [facility] Comment on above: Performed By: #### R F #### [facility] [address] [place] [address] Dr. Venkat Sloan EO # 0.1 103/ul Normal 0.0-0.7 [facility] Comment on above: Performed By: #### R F #### [facility] [address] [place] [address] Dr. Venkat Sloan Eosinophils/100 WBC (Bld) 1.7 % Normal 0.9-7.0 [facility] Comment on above: Performed By: #### R F #### [facility] [address] [place] [address] Dr. Venkat Sloan Erythrocyte distribution width (RBC) [Ratio] 12.7 % Normal 11.0-15.0 [facility] Comment on above: Performed By: #### R F #### [facility] [address] [place] [address] Dr. Venkat Sloan Hematocrit (Bld) [Volume fraction] 40.4 % Normal 36.0-48.0 [facility] Comment on above: Performed By: #### R F #### [facility] [address] [place] [address] Dr. Venkat Sloan Hemoglobin (Bld) [Mass/Vol] 13.1 g/dL Normal 12.0-16.0 [facility] Comment on above: Performed By: #### R F #### [facility] [address] [place] [address] Dr. Venkat Sloan IG # 0.02 10e3/ul Normal 0.00-0.03 [facility] Comment on above: Performed By: #### R F #### [facility] [address] [place] [address] Dr. Venkat Sloan IG % 0.3 % Normal 0.0-0.5 [facility] Comment on above: Performed By: #### R F #### [facility] [address] [place] [address] Dr. Venkat Sloan LYMPH # 2.0 103/ul Normal 1.2-3.8 [facility] Comment on above: Performed By: #### R F #### [facility] [address] [place] [address] Dr. Venkat Sloan Lymphocytes/100 WBC (Bld) 26.2 % Normal 20.5-60.0 [facility] Comment on above: Performed By: #### R F #### [facility] [address] [place] [address] Dr. Venkat Sloan MANUAL DIFF REQ NO Normal [facility] Comment on above: Performed By: #### R F #### [facility] [address] [place] [address] Dr. Venkat Sloan MCH (RBC) [Entitic mass] 28.4 pg Normal 26.7-34.0 [facility] Comment on above: Performed By: #### R F #### [facility] [address] [place] [address] Dr. Venkat Sloan MCHC (RBC) [Mass/Vol] 32.4 g/dL Normal 29.9-35.2 [facility] Comment on above: Performed By: #### R F #### [facility] [address] [place] [address] Dr. Venkat Sloan MCV (RBC) [Entitic vol] 87.4 fL Normal 81.0-99.0 [facility] Comment on above: Performed By: #### R F #### [facility] [address] [place] [address] Dr. Venkat Sloan MONO # 0.7 103/ul Normal 0.3-0.8 [facility] Comment on above: Performed By: #### R F #### [facility] [address] [place] [address] Dr. Venkat Sloan Monocytes/100 WBC (Bld) 8.8 % Normal 1.7-12.0 [facility] Comment on above: Performed By: #### R F #### [facility] [address] [place] [address] Dr. Venkat Sloan NEUT # 4.8 103/ul Normal 1.4-6.5 [facility] Comment on above: Performed By: #### R F #### [facility] [address] [address] [address] Venkat Sloan Neutrophils/100 WBC (Bld) 62.5 % Normal 43.0-75.0 [facility] Comment on above: Performed By: #### R F #### [facility] [address] [address] [address] Venkat Sloan Platelet mean volume (Bld) [Entitic vol] 8.5 fL Critically low 9.5-13.5 [facility] Comment on above: Performed By: #### R F #### [facility] [address] [place] [address] Dr. Venkat Sloan PLT 331 103/ul Normal 150-450 [facility] Comment on above: Performed By: #### R F #### [facility] [address] [place] [address] Dr. Venkat Sloan RBC 4.62 106/ul Normal 4.20-5.40 [facility] Comment on above: Performed By: #### R F #### [facility] [address] [place] [address] Dr. Venkat Sloan WBC 7.7 103/ul Normal 4.0-11.0 [facility] Comment on above: Performed By: #### R F #### [facility] [address] [place] [address] Dr. Venkat Sloan PREG QUANT HCGon 07-08-2022 HCG QUANT <1 Normal [facility] Comment on above: Performed By: #### P REGQNT #### [facility] [address] [place] [address] Dr. Venkat Sloan HCG RANGE SEE BELOW Normal [facility] Comment on above: Result Comment: 5-50 0.2-1 WEEK 50-500 1-2 WEEKS 100-5,000 2-3 WEEKS 500-10,000 3-4 WEEKS 1,000-50,000 4-5 WEEKS 10,000-100,000 5-6 WEEKS 15,000-200,000 6-8 WEEKS 10,000-100,000 2-3 MONTHS Performed By: #### P REGQNT #### [facility] [address] [place] [address] Dr. Venkat Sloan PROGESTERONEon 06-23-2022 Progesterone 5.7 ng/mL Normal [facility] Comment on above: Result Comment: Foll icular phase 0.1 - 0.9 Luteal phase 1.8 - 23.9 Ovulation phase 0.1 - 12.0 First trimester 11.0 - 44.3 Second trimester 25.4 - 83.3 Third trimester 58.7 - 214.0 Postmenopausal 0.0 - 0.1 Performed By: #### T SH #### [facility] [address] [place] [address] Dr. Venkat Sloan PREG QUANT HCGon 05-31-2022 HCG QUANT 1 mIU/mL Normal [facility] Comment on above: Performed By: #### P REGQNT #### [facility] [address] [place] [address] Dr. Venkat Sloan HCG RANGE SEE BELOW Normal [facility] Comment on above: Result Comment: 5-50 0.2-1 WEEK 50-500 1-2 WEEKS 100-5,000 2-3 WEEKS 500-10,000 3-4 WEEKS 1,000-50,000 4-5 WEEKS 10,000-100,000 5-6 WEEKS 15,000-200,000 6-8 WEEKS 10,000-100,000 2-3 MONTHS Performed By: #### P REGQNT #### [facility] [address] [place] [address] Dr. Venkat Sloan PROGESTERONEon 05-21-2022 Progesterone 12.4 ng/mL Normal [facility] Comment on above: Result Comment: Foll icular phase 0.1 - 0.9 Luteal phase 1.8 - 23.9 Ovulation phase 0.1 - 12.0 First trimester 11.0 - 44.3 Second trimester 25.4 - 83.3 Third trimester 58.7 - 214.0 Postmenopausal 0.0 - 0.1 Performed By: #### I NFLUAB #### [facility] [address] [place] [address] Dr. Venkat Sloan MRI BRAIN WO W [...] LAM VELA Date: 2022-05-04 08:42 Normal [facility] PREG QUANT HCGon 05-04-2022 HCG QUANT <1 Normal [facility] Comment on above: Performed By: #### R F #### [facility] [address] [address] [address] Venkat Sloan HCG RANGE SEE BELOW Normal [facility] Comment on above: Result Comment: 5-50 0.2-1 WEEK 50-500 1-2 WEEKS 100-5,000 2-3 WEEKS 500-10,000 3-4 WEEKS 1,000-50,000 4-5 WEEKS 10,000-100,000 5-6 WEEKS 15,000-200,000 6-8 WEEKS 10,000-100,000 2-3 MONTHS Performed By: #### R F #### [facility] [address] [address] [address] Venkat Sloan XR HYSTEROSALPINGOGRAMon XR HYSTEROSALPINGOGRAM [...] LAM VELA Date: 2022-05-04 16:09 Normal [facility] PROGESTERONEon 04-24-2022 Progesterone 0.4 ng/mL Normal [facility] Comment on above: Result Comment: Foll icular phase 0.1 - 0.9 Luteal phase 1.8 - 23.9 Ovulation phase 0.1 - 12.0 First trimester 11.0 - 44.3 Second trimester 25.4 - 83.3 Third trimester 58.7 - 214.0 Postmenopausal 0.0 - 0.1 Performed By: #### I NFLUAB #### [facility] [address] [address] [address] Venkat Sloan CULTURE SPUTUMon 04-02-2022 CULTURE SPUTUM Culture Observations : NORMAL RESPIRATORY NATALEE. Normal [facility] Comment on above: Performed By: #### R F #### [facility] [address] [address] [address] Venkat Sloan SPUTUM GRAM STAINon 04-02-19 23 COMMENTS Normal [facility] Comment on above: Performed By: #### R F #### [facility] [address] [address] [address] Venkat Sloan DIPHTHEROIDS Normal [facility] Comment on above: Performed By: #### R F #### [facility] [address] [address] [address] Venkat Sloan EPITHELIALS <25 Normal [facility] Comment on above: Performed By: #### R F #### [facility] [address] [address] [address] Venkat Sloan FUNGAL ELEMENTS Normal [facility] Comment on above: Performed By: #### R F #### [facility] [address] [address] [address] Venkat Sloan GRAM NEG BACILLI RARE Normal [facility] Comment on above: Performed By: #### R F #### [facility] [address] [place] [address] Dr. Venkat Sloan GRAM NEG DIPPLOCOCCI Normal [facility] Comment on above: Performed By: #### R F #### [facility] [address] [place] [address] Dr. Venkat Sloan GRAM POS BACILLI Normal [facility] Comment on above: Performed By: #### R F #### [facility] [address] [place] [address] Dr. Venkat Sloan GRAM POSITIVE COCCI RARE Normal [facility] Comment on above: Performed By: #### R F #### [facility] [address] [place] [address] Dr. Venkat Sloan WBC (Bld) [#/Vol] 10*3/uL Normal [facility] Comment on above: Performed By: #### R F #### [facility] [address] [place] [address] Dr. Venkat Sloan Covid-19 PCR ([facility])on SARS-CoV-2 (COVID-19) RNA SHIRIN+probe Ql (Unsp spec) Not detected Normal NOT DETECTED [facility] Comment on above: Result Comment: This test is not yet approved or cleared by the [place] FDA. When there are no FDA-approved or cleared tests available, and other criteria are met, FDA can make tests available under an emergency access mechanism called an Emergency Use Authorization (EUA). The EUA for this test is supported by the Water Purifier Operator of Health and Human Service's (HHS's) [...] SARS-CoV-2. Performed By: #### P REGQNT #### [facility] [address] [address] [address] Venkat Sloan INFLUENZA A AND B AGon 04-01 [facility] SEE BELOW Normal [facility] Comment on above: Result Comment: Nega tive for Flu A protein angiten. Infection due to Flu A cannot be ruled out. Flu A angiten in the sample may be below the detection limit of the test. Performed By: #### I NFLUAB #### [facility] [address] [place] [address] Dr. Venkat [facility] Normal [facility] Comment on above: Result Comment: Nega tive for Flu B protein antigen. Infection due to Flu B cannot be ruled out. Flu B antigen in the sample may be below the detection limit of the test. Performed By: #### I NFLUAB #### [facility] [address] [place] [address] Dr. Venkat Sloan INFLUENZA A AG Negative Normal NEGATIVE SEE COMMENT [facility] Comment on above: Performed By: #### I NFLUAB #### [facility] [address] [place] [address] Dr. Venkat Sloan INFLUENZA B AG Negative Normal NEGATIVE SEE COMMENT [facility] Comment on above: Performed By: #### I NFLUAB #### [facility] [address] [place] [address] Dr. Venkat Sloan XR CHEST 2 Von [...] [address] Date: 2022-03-24 12:33 Normal [facility] Covid-19 PCR ([facility])on 02-25 SARS-CoV-2 (COVID-19) RNA SHIRIN+probe Ql (Unsp spec) Not detected Normal NOT DETECTED [facility] Comment on above: Result Comment: When [...] for this test is supported by the Water Purifier Operator of Health and Human Service's declaration [...] used). Performed By: #### R F #### [facility] [address] [place] [address] Dr. Venkat Sloan INFLUENZA A AND B [facility] 03-15 [facility] SEE BELOW Normal [facility] Comment on above: Result Comment: Nega tive for Flu A protein angiten. Infection due to Flu A cannot be ruled out. Flu A angiten in the sample may be below the detection limit of the test. Performed By: #### I NFLUAB #### [facility] [address] [place] [address] Dr. Venkat [facility] Normal [facility] Comment on above: Result Comment: Nega tive for Flu B protein antigen. Infection due to Flu B cannot be ruled out. Flu B antigen in the sample may be below the detection limit of the test. Performed By: #### I NFLUAB #### [facility] [address] [place] [address] Dr. Venkat Sloan INFLUENZA A AG Negative Normal NEGATIVE SEE COMMENT [facility] Comment on above: Performed By: #### I NFLUAB #### [facility] [address] [place] [address] Dr. Venkat Sloan INFLUENZA B AG Negative Normal NEGATIVE SEE COMMENT [facility] Comment on above: Performed By: #### I NFLUAB #### [facility] [address] [place] [address] Dr. Venkat Sloan INTERNAL CONTROLS Within Normal Limits Normal Wi thin Normal Limits [facility] Comment on above: Performed By: #### I NFLUAB #### [facility] [address] [place] [address] Dr. Venkat Sloan Covid-19 PCR ([facility])on 02-25 SARS-CoV-2 (COVID-19) RNA SHIRIN+probe Ql (Unsp spec) Not detected Normal NOT DETECTED [facility] Comment on above: Result Comment: When [...] for this test is supported by the Water Purifier Operator of Health and Human Service's declaration [...] used). Performed By: #### I NFLUAB #### [facility] [address] [place] [address] Dr. Venkat Sloan INFLUENZA A AND B AGon 03-12 [facility] BEL[facility] Normal [facility] Comment on above: Result Comment: Nega tive for Flu A protein angiten. Infection due to Flu A cannot be ruled out. Flu A angiten in the sample may be below the detection limit of the test. Performed By: #### I NFLUAB #### [facility] [address] [place] [address] Dr. Venkat Sloan INFLUBNEG SEE BELOW Normal [facility] Comment on above: Result Comment: Nega tive for Flu B protein antigen. Infection due to Flu B cannot be ruled out. Flu B antigen in the sample may be below the detection limit of the test. Performed By: #### I NFLUAB #### [facility] [address] [address] [address] Venkat Sloan INFLUENZA A AG Negative Normal NEGATIVE SEE COMMENT [facility] Comment on above: Performed By: #### I NFLUAB #### [facility] [address] [place] [address] Dr. Venkat Sloan INFLUENZA B AG Negative Normal NEGATIVE SEE COMMENT [facility] Comment on above: Performed By: #### I NFLUAB #### [facility] [address] [address] [address] Venkat Sloan INTERNAL CONTROLS Within Normal Limits Normal Wi thin Normal Limits [facility] Comment on above: Performed By: #### I NFLUAB #### [facility] [address] [place] [address] Dr. Venkat Sloan PROGESTERONEon 02-20-2022 Progesterone 0.3 ng/mL Normal [facility] Comment on above: Result Comment: Foll icular phase 0.1 - 0.9 Luteal phase 1.8 - 23.9 Ovulation phase 0.1 - 12.0 First trimester 11.0 - 44.3 Second trimester 25.4 - 83.3 Third trimester 58.7 - 214.0 Postmenopausal 0.0 - 0.1 Performed By: #### R F #### [facility] [address] [place] [address] Dr. Venkat Sloan ACTH STIMULATIONon 2 Andros Baseline 49 ng/dL Normal 41-262 [facility] Comment on above: Performed By: #### R F #### [facility] [address] [place] [address] Dr. Venkat Sloan Andros Stimulated 82 ng/dL Normal Not Estab. [facility] Comment on above: Performed By: #### R F #### [facility] [address] [place] [address] Dr. Venkat Sloan [facility] 01-26 SARS-CoV-2 (COVID-19) RNA SHIRIN+probe Ql (Unsp spec) Not detected Normal NOT DETECTED [facility] Comment on above: Result Comment: This test is not yet approved or cleared by the [place] FDA. When there are no FDA-approved or cleared tests available, and other criteria are met, FDA can make tests available under an emergency access mechanism called an Emergency Use Authorization (EUA). The EUA for this test is supported by the Water Purifier Operator of Health and Human Service's (HHS's) [...] SARS-CoV-2. Performed By: #### I NFLUAB #### [facility] [address] [place] [address] Dr. Venkat Sloan INFLUENZA A AND B [facility] 02-10 [facility] SEE BELOW Normal [facility] Comment on above: Result Comment: Nega tive for Flu A protein angiten. Infection due to Flu A cannot be ruled out. Flu A angiten in the sample may be below the detection limit of the test. Performed By: #### P REGQNT #### [facility] [address] [place] [address] Dr. Venkat [facility] BEL[facility] Normal [facility] Comment on above: Result Comment: Nega tive for Flu B protein antigen. Infection due to Flu B cannot be ruled out. Flu B antigen in the sample may be below the detection limit of the test. Performed By: #### P REGQNT #### [facility] [address] [place] [address] Dr. Venkat Sloan INFLUENZA A AG Negative Normal NEGATIVE SEE COMMENT [facility] Comment on above: Performed By: #### P REGQNT #### [facility] [address] [place] [address] Dr. Venkat Sloan INFLUENZA B AG Negative Normal NEGATIVE SEE COMMENT [facility] Comment on above: Performed By: #### P REGQNT #### [facility] [address] [place], [place] [address] Dr. Venkat Sloan INTERNAL CONTROLS Within Normal Limits Normal Wi thin Normal Limits [facility] Comment on above: Performed By: #### P REGQNT #### [facility] [address] [address] [address] Venkat Sloan DHEA SERUMon 01-19-2022 Dehydroepiandrosterone (DHEA) 82 ng/dL Normal -701 [facility] Comment on above: Result Comment: Age [...] 89 Performed By: #### T SH #### [facility] [address] [place] [address] Dr. Venkat Sloan DHEA-SULFATEon 01-14-2022 DHEA-Sulfate 34.0 ug/dL Critically low 84.8-378.0 [facility] Comment on above: Performed By: #### R F #### [facility] [address] [address] [address] Venkat Sloan FSHon 01-14-2022 FSH 2.2 mIU/mL Normal [facility] Comment on above: Result Comment: Adul t Female: Follicular phase 3.5 - 12.5 Ovulation phase 4.7 - 21.5 Luteal phase 1.7 - 7.7 Postmenopausal 25.8 - 134.8 Performed By: #### L BCFSH #### [facility] [address] [address] [address] Venkat Sloan LUTEINIZING HORMONE (LH)on 1 LH 5.1 mIU/mL Normal [facility] Comment on above: Result Comment: Adul t Female: Follicular phase 2.4 - 12.6 Ovulation phase 14.0 - 95.6 Luteal phase 1.0 - 11.4 Postmenopausal 7.7 - 58.5 Performed By: #### I NFLUAB #### [facility] [address] [place] [address] Dr. Venkat Sloan PROLACTINon 01-14-2022 Prolactin 8.0 ng/mL Normal 4.8-23.3 [facility] Comment on above: Performed By: #### P ROLAC #### [facility] [address] [place] [address] Dr. Venkat Sloan CBC AUTO DIFFon 01-13-2022 BASO # 0.0 103/ul Normal 0.0-0.1 [facility] Comment on above: Performed By: #### T SH #### [facility] [address] [place] [address] Dr. Venkat Sloan Basophils/100 WBC (Bld) 0.4 % Normal 0.2-2.0 [facility] Comment on above: Performed By: #### T SH #### [facility] [address] [place] [address] Dr. Venkat Sloan EO # 0.1 103/ul Normal 0.0-0.7 [facility] Comment on above: Performed By: #### T SH #### [facility] [address] [place] [address] Dr. Venkat Sloan Eosinophils/100 WBC (Bld) 1.2 % Normal 0.9-7.0 [facility] Comment on above: Performed By: #### T SH #### [facility] [address] [place] [address] Dr. Venkat Sloan Erythrocyte distribution width (RBC) [Ratio] 12.7 % Normal 11.0-15.0 [facility] Comment on above: Performed By: #### T SH #### [facility] [address] [place] [address] Dr. Venkat Sloan Hematocrit (Bld) [Volume fraction] 41.1 % Normal 36.0-48.0 [facility] Comment on above: Performed By: #### T SH #### [facility] [address] [place] [address] Dr. Venkat Sloan Hemoglobin (Bld) [Mass/Vol] 13.1 g/dL Normal 12.0-16.0 [facility] Comment on above: Performed By: #### T SH #### [facility] [address] [place] [address] Dr. Venkat Sloan IG # 0.03 10e3/ul Normal 0.00-0.03 [facility] Comment on above: Performed By: #### T SH #### [facility] [address] [place] [address] Dr. Venkat Sloan IG % 0.3 % Normal 0.0-0.5 [facility] Comment on above: Performed By: #### T SH #### [facility] [address] [place] [address] Dr. Venkat Sloan LYMPH # 1.6 103/ul Normal 1.2-3.8 [facility] Comment on above: Performed By: #### T SH #### [facility] [address] [place] [address] Dr. Venkat Sloan Lymphocytes/100 WBC (Bld) 15.0 % Critically low 20.5-60.0 [facility] Comment on above: Performed By: #### T SH #### [facility] [address] [place] [address] Dr. Venkat Sloan MANUAL DIFF REQ NO Normal [facility] Comment on above: Performed By: #### T SH #### [facility] [address] [place] [address] Dr. Venkat Sloan MCH (RBC) [Entitic mass] 28.5 pg Normal 26.7-34.0 [facility] Comment on above: Performed By: #### T SH #### [facility] [address] [place] [address] Dr. Venkat Sloan MCHC (RBC) [Mass/Vol] 31.9 g/dL Normal 29.9-35.2 [facility] Comment on above: Performed By: #### T SH #### [facility] [address] [place] [address] Dr. Venkat Sloan MCV (RBC) [Entitic vol] 89.3 fL Normal 81.0-99.0 [facility] Comment on above: Performed By: #### T SH #### [facility] [address] [place] [address] Dr. Venkat Sloan MONO # 0.9 103/ul Critically high 0.3-0.8 [facility] Comment on above: Performed By: #### T SH #### [facility] [address] [place] [address] Dr. Venkat Sloan Monocytes/100 WBC (Bld) 8.8 % Normal 1.7-12.0 [facility] Comment on above: Performed By: #### T SH #### [facility] [address] [address] [address] Venkat Sloan NEUT # 7.9 103/ul Critically high 1.4-6.5 [facility] Comment on above: Performed By: #### T SH #### [facility] [address] [place] [address] Dr. Venkat Sloan Neutrophils/100 WBC (Bld) 74.3 % Normal 43.0-75.0 [facility] Comment on above: Performed By: #### T SH #### [facility] [address] [place] [address] Dr. Venkat Sloan Platelet mean volume (Bld) [Entitic vol] 9.2 fL Critically low 9.5-13.5 [facility] Comment on above: Performed By: #### T SH #### [facility] [address] [place] [address] Dr. Venkat Sloan PLT 300 103/ul Normal 150-450 [facility] Comment on above: Performed By: #### T SH #### [facility] [address] [place] [address] Dr. Venkat Sloan RBC 4.60 106/ul Normal 4.20-5.40 [facility] Comment on above: Performed By: #### T SH #### [facility] [address] [place] [address] Dr. Venkat Sloan WBC 10.7 103/ul Normal 4.0-11.0 [facility] Comment on above: Performed By: #### T SH #### [facility] [address] [place] [address] Dr. Venkat Sloan GLYCOHEMOGLOBIN A1Con 2021 ADA RECOMMENDATION SEE BELOW Normal [facility] Comment on above: Result Comment: ADA RECOMMENDED LIMIT 4.0 - 6.0 ADA THERAPEUTIC TARGET < 7.0 ACTION SUGGESTED > 7.0 Performed By: #### P REGQNT #### [facility] [address] [place] [address] Dr. Venkat Sloan Glucose [Mass/Vol] 100 mg/dL Normal [facility] Comment on above: Performed By: #### P REGQNT #### [facility] [address] [address] [address] Venkat Sloan HbA1c (Bld) [Mass fraction] 5.1 % Normal 4.5-6.2 [facility] Comment on above: Performed By: #### P REGQNT #### [facility] [address] [place] [address] Dr. Venkat Sloan TSHon 01-13-2022 TSH 1.098 uIU/mL Normal 0.358-3.740 [facility] Comment on above: Performed By: #### T SH #### [facility] [address] [place] [address] Dr. Venkat Sloan Covid-19 PCR ([facility]on 12-26 SARS-CoV-2 (COVID-19) RNA SHIRIN+probe Ql (Unsp spec) Not detected Normal NOT DETECTED [facility] Comment on above: Result Comment: This test is not yet approved or cleared by the [place] FDA. When there are no FDA-approved or cleared tests available, and other criteria are met, FDA can make tests available under an emergency access mechanism called an Emergency Use Authorization (EUA). The EUA for this test is supported by the [place] of Health and Human Service's (HHS's) declaration [...] SARS-CoV-2. Performed By: #### I NFLUAB #### [facility] [address] [place] [address] Dr. Venkat Sloan PREG QUANT HCGon 12-24-2021 HCG QUANT <1 Normal [facility] Comment on above: Performed By: #### P REGQNT #### [facility] [address] [place] [address] Dr. Venkat Sloan HCG RANGE SEE BELOW Normal [facility] Comment on above: Result Comment: 5-50 0.2-1 WEEK 50-500 1-2 WEEKS 100-5,000 2-3 WEEKS 500-10,000 3-4 WEEKS 1,000-50,000 4-5 WEEKS 10,000-100,000 5-6 WEEKS 15,000-200,000 6-8 WEEKS 10,000-100,000 2-3 MONTHS Performed By: #### P REGQNT #### [facility] [address] [place] [address] Dr. Venkat Sloan HCG-BETA SUBUNIT QUANTon hCG,Beta Subunit,Qnt,Serum <1 Normal [facility] Comment on above: Result Comment: Fema le (Non-) 0 - 5 (Postmenopausal) 0 - 8 . Female () Weeks of Gestation 3 6 - 71 4 10 - 750 5 217 - 7138 6 158 - 02338 7 [phone] [phone] 8 [phone] 9 [id number] [phone] 12 [phone] 14 21203 - 87170 15 29783 - 34726 16 9894 - 33509 17 7549 - [phone] 18 6214 - 35570 Aj ECLIA methodology Performed By: #### T SH #### [facility] [address] [place] [address] Dr. Venkat Sloan BRETT by IFAon 09-29-2021 Antinuclear Antibodies, IFA Negative Normal [facility] Comment on above: Result Comment: Nega tive <1:80 Borderline 1:80 Positive >1:80 ICAP nomenclature: AC-0 For more information about Hep-2 cell patterns use ANApatterns.org, the official website for the International Consensus on Antinuclear Antibody (BRETT) Patterns (ICAP). Performed By: #### A NAIFA #### [facility] [address] [place] [address] Dr. Venkat Sloan INSULINon 09-29-2021 Insulin 11.1 uIU/mL Normal 2.6-24.9 [facility] Comment on above: Performed By: #### T SH #### [facility] [address] [place] [address] Dr. Venkat Sloan ANTISTREPTOLYSIN O AB (ASO)o n 09-27-2021 Antistreptolysin O Ab <20.0 Normal 0.0-200.0 [facility] Comment on above: Performed By: #### P REGQNT #### [facility] [address] [place] [address] Dr. Venkat Sloan RHEUMATOID FACTORon 09-28-19 RA Latex Turbid. <10.0 Normal <14.0 [facility] Comment on above: Performed By: #### R F #### [facility] [address] [place] [address] Dr. Venkat Sloan CBC AUTO DIFFon 09-26-2021 BASO # 0.0 103/ul Normal 0.0-0.1 [facility] Comment on above: Performed By: #### T SH #### [facility] [address] [place] [address] Dr. Venkat Sloan Basophils/100 WBC (Bld) 0.3 % Normal 0.2-2.0 [facility] Comment on above: Performed By: #### T SH #### [facility] [address] [place] [address] Dr. Venkat Sloan EO # 0.1 103/ul Normal 0.0-0.7 [facility] Comment on above: Performed By: #### T SH #### [facility] [address] [place] [address] Dr. Venkat Sloan Eosinophils/100 WBC (Bld) 1.8 % Normal 0.9-7.0 [facility] Comment on above: Performed By: #### T SH #### [facility] [address] [place] [address] Dr. Venkat Sloan Erythrocyte distribution width (RBC) [Ratio] 12.9 % Normal 11.0-15.0 [facility] Comment on above: Performed By: #### T SH #### [facility] [address] [place] [address] Dr. Venkat Sloan Hematocrit (Bld) [Volume fraction] 39.8 % Normal 36.0-48.0 [facility] Comment on above: Performed By: #### T SH #### [facility] [address] [place] [address] Dr. Venkat Sloan Hemoglobin (Bld) [Mass/Vol] 12.7 g/dL Normal 12.0-16.0 [facility] Comment on above: Performed By: #### T SH #### [facility] [address] [place] [address] Dr. Venkat Sloan IG # 0.02 10e3/ul Normal 0.00-0.03 [facility] Comment on above: Performed By: #### T SH #### [facility] [address] [place] [address] Dr. Venkat Sloan IG % 0.3 % Normal 0.0-0.5 [facility] Comment on above: Performed By: #### T SH #### [facility] [address] [place] [address] Dr. Venkat Sloan LYMPH # 1.5 103/ul Normal 1.2-3.8 [facility] Comment on above: Performed By: #### T SH #### [facility] [address] [place] [address] Dr. Venkat Sloan Lymphocytes/100 WBC (Bld) 21.5 % Normal 20.5-60.0 [facility] Comment on above: Performed By: #### T SH #### [facility] [address] [place] [address] Dr. Venkat Sloan MANUAL DIFF REQ NO Normal [facility] Comment on above: Performed By: #### T SH #### [facility] [address] [place] [address] Dr. Venkat Sloan MCH (RBC) [Entitic mass] 28.5 pg Normal 26.7-34.0 [facility] Comment on above: Performed By: #### T SH #### [facility] [address] [place] [address] Dr. Venkat Sloan MCHC (RBC) [Mass/Vol] 31.9 g/dL Normal 29.9-35.2 [facility] Comment on above: Performed By: #### T SH #### [facility] [address] [place] [address] Dr. Venkat Sloan MCV (RBC) [Entitic vol] 89.2 fL Normal 81.0-99.0 [facility] Comment on above: Performed By: #### T SH #### [facility] [address] [place] [address] Dr. Venkat Sloan MONO # 0.5 103/ul Normal 0.3-0.8 [facility] Comment on above: Performed By: #### T SH #### [facility] [address] [place] [address] Dr. Venkat Sloan Monocytes/100 WBC (Bld) 7.6 % Normal 1.7-12.0 [facility] Comment on above: Performed By: #### T SH #### [facility] [address] [place] [address] Dr. Venkat Sloan NEUT # 4.9 103/ul Normal 1.4-6.5 [facility] Comment on above: Performed By: #### T SH #### [facility] [address] [place] [address] Dr. Venkat Sloan Neutrophils/100 WBC (Bld) 68.5 % Normal 43.0-75.0 [facility] Comment on above: Performed By: #### T SH #### [facility] [address] [place] [address] Dr. Venkat Sloan Platelet mean volume (Bld) [Entitic vol] 8.8 fL Critically low 9.5-13.5 [facility] Comment on above: Performed By: #### T SH #### [facility] [address] [place] [address] Dr. Venkat Sloan PLT 297 103/ul Normal 150-450 [facility] Comment on above: Performed By: #### T SH #### [facility] [address] [place] [address] Dr. Venkat Sloan RBC 4.46 106/ul Normal 4.20-5.40 [facility] Comment on above: Performed By: #### T SH #### [facility] [address] [place] [address] Dr. Venkat Sloan WBC 7.1 103/ul Normal 4.0-11.0 [facility] Comment on above: Performed By: #### T SH #### [facility] [address] [place] [address] Dr. Venkat Sloan CRPon 09-26-2021 CRP [Mass/Vol] mg/L Normal <=1.0 [facility] Comment on above: Performed By: #### P REGQNT #### [facility] [address] [place] [address] Dr. Venkat Sloan FREE THYROXINE INDEX T7on FTI 2.71 Normal 1.30-4.50 [facility] Comment on above: Performed By: #### P REGQNT #### [facility] [address] [place] [address] Dr. Venkat Sloan T3U 33.0 % Normal 30.0-39.0 [facility] Comment on above: Performed By: #### P REGQNT #### [facility] [address] [place] [address] Dr. Venkat Sloan T4 [Mass/Vol] 8.20 ug/dL Normal 4.80-13.90 [facility] Comment on above: Performed By: #### P REGQNT #### [facility] [address] [place] [address] Dr. Venkat Sloan GLYCOHEMOGLOBIN A1Con 2021 ADA RECOMMENDATION SEE BELOW Normal [facility] Comment on above: Result Comment: ADA RECOMMENDED LIMIT 4.0 - 6.0 ADA THERAPEUTIC TARGET < 7.0 ACTION SUGGESTED > 7.0 Performed By: #### I NFLUAB #### [facility] [address] [address] [address] Venkat Sloan Glucose [Mass/Vol] 105 mg/dL Normal [facility] Comment on above: Performed By: #### I NFLUAB #### [facility] [address] [address] [address] Venkat Sloan HbA1c (Bld) [Mass fraction] 5.3 % Normal 4.5-6.2 [facility] Comment on above: Performed By: #### I NFLUAB #### [facility] [address] [address] [address] Venkat Sloan IRONon 09-26-2021 Iron [Mass/Vol] 49.0 ug/dL Critically low 50.0-170.0 [facility] Comment on above: Performed By: #### P REGQNT #### [facility] [address] [place] [address] Dr. Venkat Sloan LIPID PROFILEon 09-26-2021 CHOL-HDL RATIO NORM SEE BELOW Normal [facility] Comment on above: Result Comment: 3.3 - 4.4 LOW RISK 4.4 - 7.1 AVERAGE RISK 7.1 - 11.0 MODERATE RISK >11.0 HIGH RISK Performed By: #### P REGQNT #### [facility] [address] [address] [address] Venkat Sloan Cholesterol [Mass/Vol] 197 mg/dL Normal <=200 [facility] Comment on above: Performed By: #### P REGQNT #### [facility] [address] [address] [address] Venkat Sloan Cholesterol in HDL [Mass/Vol] 64 mg/dL Critically high 40-60 [facility] Comment on above: Performed By: #### P REGQNT #### [facility] [address] [address] [address] Venkat Sloan Cholesterol in LDL [Mass/Vol] 123.4 mg/dL Normal [facility] Comment on above: Performed By: #### P REGQNT #### [facility] [address] [address] [address] Venkat Sloan Cholesterol.total/Choles terol in HDL [Mass ratio] 3.1 {ratio} Normal [facility] Comment on above: Performed By: #### P REGQNT #### [facility] [address] [address] [address] Venkat Sloan HDL NORMAL > or = 60 mg/dl - LO W CARDIOVASCULAR RISK <40 mg/dl - HIGH CARDIOVASCULAR RISK Normal [facility] Comment on above: Performed By: #### P REGQNT #### [facility] [address] [address] [address] Venkat Sloan LDL CALC NORMAL SEE BELOW Normal [facility] Comment on above: Result Comment: <100 mg/dl OPTIMAL 100 - 129 mg/dl NEAR OR ABOVE OPTIMAL 130 - 159 mg/dl BORDERLINE HIGH 160 - 189 mg/dl HIGH >190 mg/dl VERY HIGH Performed By: #### P REGQNT #### [facility] [address] [place] [address] Dr. Venkat Sloan Triglyceride [Mass/Vol] 48 mg/dL Normal <=150 [facility] Comment on above: Performed By: #### P REGQNT #### [facility] [address] [address] [address] Venkat Sloan VLDL CALC 9.6 mg/dL Normal [facility] Comment on above: Performed By: #### P REGQNT #### [facility] [address] [place] [address] Dr. Venkat Sloan PROF 14(COMP METB)on 022 Albumin [Mass/Vol] 4.0 g/dL Normal 3.4-5.0 [facility] Comment on above: Performed By: #### I NFLUAB #### [facility] [address] [place] [address] Dr. Venkat Sloan Albumin/Globulin [Mass ratio] 1.3 {ratio} Normal [facility] Comment on above: Performed By: #### I NFLUAB #### [facility] [address] [place] [address] Dr. Venkat Sloan ALP [Catalytic activity/Vol] 58 U/L Normal 46-116 [facility] Comment on above: Performed By: #### I NFLUAB #### [facility] [address] [address] [address] Venkat Sloan ALT [Catalytic activity/Vol] 20 U/L Normal 14-59 [facility] Comment on above: Performed By: #### I NFLUAB #### [facility] [address] [address] [address] Venkat Sloan Anion gap [Moles/Vol] 10.4 mmol/L Normal [facility] Comment on above: Performed By: #### I NFLUAB #### [facility] [address] [place] [address] Dr. Venkat Sloan AST [Catalytic activity/Vol] 11 U/L Critically low 15-37 [facility] Comment on above: Performed By: #### I NFLUAB #### [facility] [address] [place] [address] Dr. Venkat Sloan Bilirubin [Mass/Vol] 0.8 mg/dL Normal 0.2-1.0 [facility] Comment on above: Performed By: #### I NFLUAB #### [facility] [address] [place] [address] Dr. Venkat Sloan Calcium [Mass/Vol] 9.0 mg/dL Normal 8.5-10.1 [facility] Comment on above: Performed By: #### I NFLUAB #### [facility] [address] [place] [address] Dr. Venkat Sloan Chloride [Moles/Vol] 106 mmol/L Normal 98-107 [facility] Comment on above: Performed By: #### I NFLUAB #### [facility] [address] [address] [address] Venkat Sloan CO2 [Moles/Vol] 27.0 mmol/L Normal 21.0-32.0 [facility] Comment on above: Performed By: #### I NFLUAB #### [facility] [address] [place] [address] Dr. Venkat Sloan Creatinine [Mass/Vol] 0.70 mg/dL Normal 0.55-1.02 [facility] Comment on above: Performed By: #### I NFLUAB #### [facility] [address] [place] [address] Dr. Venkat Sloan EGFR-AF TAJIK >60 Normal >=60 [facility] Comment on above: Performed By: #### I NFLUAB #### [facility] [address] [address] [address] Venkat Sloan EGFR-NON AF TAJIK >60 Normal >=60 [facility] Comment on above: Performed By: #### I NFLUAB #### [facility] [address] [place] [address] Dr. Venkat Sloan Globulin (S) [Mass/Vol] 3.2 g/dL Normal T [facility] Comment on above: Performed By: #### I NFLUAB #### [facility] [address] [place] [address] Dr. Venkat Sloan Glucose [Mass/Vol] 92 mg/dL Normal 74-106 [facility] Comment on above: Performed By: #### I NFLUAB #### [facility] [address] [place] [address] Dr. Venkat Sloan Potassium [Moles/Vol] 4.4 mmol/L Normal 3.5-5.1 [facility] Comment on above: Performed By: #### I NFLUAB #### [facility] [address] [place] [address] Dr. Venkat Sloan Protein [Mass/Vol] 7.2 g/dL Normal 6.4-8.2 [facility] Comment on above: Performed By: #### I NFLUAB #### [facility] [address] [place] [address] Dr. Venkat Sloan Sodium [Moles/Vol] 139 mmol/L Normal 136-145 [facility] Comment on above: Performed By: #### I NFLUAB #### [facility] [address] [place] [address] Dr. Venkat Sloan Urea nitrogen [Mass/Vol] 13.0 mg/dL Normal 7.0-18.0 [facility] Comment on above: Performed By: #### I NFLUAB #### [facility] [address] [place] [address] Dr. Venkat Sloan Urea nitrogen/Creatinine [Mass ratio] 18.6 mg/mg Normal [facility] Comment on above: Performed By: #### I NFLUAB #### [facility] [address] [place] [address] Dr. Venkat Sloan TSHon 09-26-2021 TSH 1.318 uIU/mL Normal 0.358-3.740 [facility] Comment on above: Performed By: #### P REGQNT #### [facility] [address] [place] [address] Dr. Venkat Sloan URIC ACID SERUMon 09-26-2021 Urate [Mass/Vol] 3.9 mg/dL Normal 2.6-6.0 [facility] Comment on above: Performed By: #### P REGQNT #### [facility] [address] [place] [address] Dr. Venkat Sloan XR CSPINE MIN 4 [...] DUDLEY HERNÁNDEZ Date: 2021-09-24 21:16 Normal [facility] PREG QUANT HCGon 08-17-2021 HCG QUANT <1 Normal [facility] [facility] Comment on above: Performed By: #### I NFLUAB #### [facility] [address] [place] [address] Dr. Venkat Sloan HCG RANGE SEE BELOW Normal [facility] Comment on above: Result Comment: 5-50 0-1 WEEK 40-300 1-2 WEEKS 100-1,000 2-3 WEEKS 500-6,000 3-4 WEEKS 5,000-200,000 1-2 MONTHS 10,000-100,000 2-3 MONTHS 3,000-50,000 2ND TRIMESTER 1,000-50,000 3RD TRIMESTER Performed By: #### I NFLUAB #### [facility] [address] [place] [address] Dr. Venkat Sloan US PELVIS AND TRANSVAGon [...] DUDLEY HERNÁNDEZ Date: 2021-08-17 07:01 Normal [facility] COVID Quick Testingon 2020 Result Negative [employer] Other Vital Signs Date Time Vital Sign Value Performing Clinician Facility 05-22-2023 09:0500 Body height 154.94 cm [facility] 05-22-2023 09:0500 Body mass index (BMI) [Ratio] 30.8 kg/m2 [facility] 05-22-2023 09:050 Body temperature 98.1 [degF] [facility] 05-22-2023 09:0500 Body weight 74.04 kg [facility] 05-22-2023 09:0500 Heart rate 78 /min [facility] 05-22-2023 09:27-0500 Respiratory rate 16 /min [facility] 05-22-2023 09:27-0500 SaO2% (BldA) [Mass fraction] 98 % [facility] 05-10-2023 15:14-0500 Body mass index (BMI) [Ratio] 30.04 kg/m2 [email or web address] Work Phone: [facility] 05-10-2023 15:14-0500 Body weight 72.12 kg Ricardo [employer] Work Phone: [facility] 05-10-2023 15:14-0500 Diastolic blood pressure 70 mm[Hg] Ricardo Jennifer [employer] Work Phone: [facility] 05-10-2023 15:14-0500 Systolic blood pressure 110 mm[Hg] [email or web address] Work Phone: [facility] 01-27-2021 18:45-0400 Body height 154.94 cm Mohini Juan Other [employer] Other 01-27-2021 18:45-0400 Body mass index (BMI) [Ratio] 28.34 kg/m2 Mohini Juan Other [employer] Other 01-27-2021 18:45-0400 Body temperature 96.4 [degF] Mohini Juan Other [employer] Other 01-27-2021 18:45-0400 Body weight 68.04 kg Mohini Juan Other [employer] Other 01-27-2021 18:45-0400 Respiratory rate 18 /min Mohini Juan Other [employer] Other 01-27-2021 18:45-0400 SaO2% (BldA) [Mass fraction] 99 % Mohini Martinez Other [employer] Other 12-22-2020 11:45-0400 Body height 154.94 cm Dudley Larsluciano Other [employer] Other 12-22-2020 11:45-0400 Body mass index (BMI) [Ratio] 28.34 kg/m2 Dudley Larsluciano Other [employer] Other 12-22-2020 11:45-0400 Body weight 68.04 kg Dudley Larsluciano Other [employer] Other Encounters Encounter Date Encounter Type Care Provider Facility Start: 07-21-2023 End: 07-21-2023 ambulatory RICARDO JENNIFER Not Available Start: 07-14-2023 End: 07-14-2023 ambulatory RICARDO JENNIFER Not Available Start: 06-30-2023 End: 06-30-2023 ambulatory RICARDO JENNIFER Not Available Start: 06-13-2023 End: 06-13-2023 ambulatory RICARDO JENNIFER Not Available Start: 05-26-2023 End: 05-26-2023 ambulatory RICARDO JENNIFER Not Available Start: 05-22-2023 End: 05-22-2023 ambulatory [facility] Work Phone: Start: 05-22-2023 End: 05-22-2023 Patient encounter procedure Formerly [facility] Urgent Care Chris [...] preprocedural examination DR RICARDO RODRIGUEZ . [facility] Start: 07-08-2022 End: 07-08-[address] [...] abnormal findings DR IRON GARCIA . [facility] Start: 09-26-2021 End: 09-27-2021 [...] 01-27-2021 End: 01-27-2021 ambulatory Mohini Martinez Other [employer] Other Start: 01-27-2021 Office outpatient vi sit [...] AM EST Routine [facility] [address] [place] [address] Ricardo Rodriguez DO [address] [place] [address] [facility] Start: 05-10-2023 End: 05-10-2024 CBC panel - Blood by Automated count CBC Lab Routine Diabetes mellitus screening Expected: 05/10/2023 (Approximate), Expires: 05/10/2024 [facility] Work Phone: Comment on above: Expected: 05/10/2023 (Approximate), Expires: 05/10/2024 Start: 05-10-2023 End: 05-10-2024 Measurement of glucose 1 hour after glucose challenge for glucose tolerance test Glucose tolerance, 1 hour Lab Routine Diabetes mellitus screening Expected: 05/10/2023 (Approximate), Expires: 05/10/2024 [facility] Comment on above: Expected: 05/10/2023 (Approximate), Expires: 05/10/2024 Start: 11-26-2022 Influenza vaccination Influenz a Vaccine (#1) [facility] Immunizations Immunization Date Immunization Notes Care Provider Frankie munoz 01-25-2022 influenza virus vacc ine, unspecified formulation Ricardo Rodriguez DO Work Phone: [facility] Payers Date Payer Category Payer Unknown BCBS BCBS xxxxxx [id number] 2022-Present [phone] [address] [place] [address] [id number] 1993 Unknown [id number] 2.16.840.1.007240.3.579.2.593 1993 Unknown [id number] 2.16.840.1.383639.3.579.2.593 1993 Unknown [id number] 2.16.840.1.860700.3.579.2.593 1993 Unknown [id number] 2.16.840.1.506556.3.579.2.593 1993 Unknown [id number] 2.16.840.1.450466.3.579.2.593 1993 Unknown [id number] 2.16.840.1.452466.3.579.2.593 1993 Unknown [id number] 2.16.840.1.974014.3.579.2.593 1993 Unknown [id number] 2.16.840.1.099866.3.579.2.59 1993 Unknown [id number] 2.16.840.1.991679.3.579.2.593 1993 Unknown [id number] 2.16.840.1.297583.3.579.2.59 1993 Unknown [id number] 2.16.840.1.325654.3.579.2.593 1993 Unknown [id number] 2.16.840.1.229803.3.579.2.59 1993 Unknown [id number] 2.16.840.1.751043.3.579.2.593 1993 Unknown [id number] 2.16.840.1.832603.3.579.2.59 1993 Unknown [id number] 2.16.840.1.631265.3.579.2.59 1993 Unknown [id number] 2.16.840.1.125242.3.579.2.59 1993 Unknown [id number] 2.16.840.1.936248.3.579.2.59 1993 Unknown [id number] 2.16.840.1.848948.3.579.2.593 1993 Unknown [id number] 2.16.840.1.621817.3.579.2.593 1993 Unknown [id number] 2.16.840.1.228413.3.579.2.593 1993 Unknown [id number] 2.16.840.1.882281.3.579.2.593 1993 Unknown [id number] 2.16.840.1.970345.3.579.2.593 1993 Unknown [id number] 2.16.840.1.178229.3.579.2.593 1993 Unknown [id number] 2.16.840.1.511239.3.579.2.593 1993 Unknown [id number] 2.16.840.1.878968.3.579.2.593 1993 Unknown [id number] 2.16.840.1.049970.3.579.2.125 1993 Unknown [id number] 2.16.840.1.417002.3.579.2.125 1993 Unknown [id number] 2.16.840.1.822540.3.579.2.125 1993 Unknown [id number] 2.16.840.1.150244.3.579.2.9 1993 Unknown [id number] 2.16.840.1.248772.3.579.2.125 1993 Unknown [id number] 2.16.840.1.201324.3.579.2.125 1993 Unknown [id number] 2.16.840.1.859949.3.579.2.125 1993 Unknown [id number] 2.16.840.1.301472.3.579.2.125 1993 Unknown [id number] 2.16.840.1.818492.3.579.2.1259 1959 Unknown [id number] 1959 Unknown [id number] Self-pay Self Pay [id number] Unknown [id number] 2.16. 840.1.786511.19 Unknown [facility] [id number] Unknown [place] BC/BS [id number] Social History Date Type Detail Facility Unknown if ever smoked [employer] Other Start: 01-28-2023 Sex Assigned At [employer] Other Start: 01-28-2023 End: 05-22-2023 Tobacco smoking [...] nursing note reviewed. Exam conducted with a operations specialists present. Vitals: Estimated body mass index is [...] Rodriguez DO documented in this encounter [facility] Clinical Note 07-08-2022 Note Date & Type Note Facility 07-08-2022 Note OPERATIVE NOTE OPERATION DATE: 07/08/2022 PROCEDURE: Diagnostic laparoscopy with fulguration of ovarian endometrial implant. PREOPERATIVE DIAGNOSIS: Pelvic pain. POSTOPERATIVE DIAGNOSIS: Pelvic pain. ANESTHESIA: General. SURGEON: Ricardo Rodriguez D.O. OXYGEN FURNACE OPERATOR: DEVIN Miles URINE OUTPUT: Yellow and [...] to Recovery Room in stable condition. [facility] Evaluation note 12-22-2020 Note Date & Type Note Facility 12-22-2020 Evaluation note Encounter Date Diagnosis Assessment Notes Nov, Irritable bowel syndrome with both constipation and diarrhea (ICD-10 - K58.2) LABS INDICATED ABOVE START TRIAL OF DICYCLOMINE 20 BID RTO 4 WEEKS [employer] Other Evaluation note Note Date & Type Note Facility Evaluation note [facility] [employer] Other Evaluation note Note Date & Type Note Facility Evaluation note Diagnosis Second trimester state, incidental Diabetes mellitus screening Screening for diabetes mellitus documented in this encounter [facility] Evaluation note Note Date & Type Note Facility Evaluation note No assessment information availa [facility] Work Phone: History general Narrative - Reported Note Date & Type Note Facility History general Narrative - Reported Type Medical History anxiety/depression Medical History IBS Surgical History TONSILLECTOMY [facility] [employer] Other History general Narrative - Reported Note Date & Type Note Facility History general Narrative - Reported [employer] Other Summary Purpose Family History No Family [...] and content) DATE CREATED AUTHOR 07/13/2022 [facility] DATE CREATED AUTHOR AUTHOR'S ORGANIZ ATION 07/22/2023 [facility] [employer] Care Teams (unrecognized sec tion and content) Dual Rate Supervisor Relationship Specialty Start Date End Date Iron Garcia MD [address] [place] [address] PCP - General Family Medicine 11/23/22 Team [...] BE BASED ON THE PRIMARY CLINICAL RECORDS. [employer] [facility]. provides no warranty or guarantee of the accuracy or completeness of information in this document.
--- NOTE | 2023-07-25 15:57 | US_ITS ---
[address] [address] Patient Name: ESTER BRADFORD MRN: [facility]:[id number] date: 1995 Sex: F Assigned Patient Location: [facility] Current Patient Location: Accession/Order Number: [id number] Exam Date: 07/25/2023 16:04 Report Date: 07/26/2023 05:40 At the request of: RICARDO LEGGETT Procedure: US OB BPP w non-stress EXAMINATION: US OB BPP w non-stress HISTORY: POLYHYDRAMNIOS [id number] COMPARISON: Ultrasound OB biophysical 07/21/2023 TECHNIQUE: Ultrasound biophysical profile was performed in the radiology department. BREATHING MOVEMENTS: 2.0 GROSS BODY MOVEMENTS: 2.0 TONE: 2.0 QUALITATIVE AMNIOTIC FLUID VOLUME: 2.0 PRESENTATION: CEPHALIC HEART RATE: 131.7 bpm bpm. AMNIOTIC FLUID VOLUME: 19.2 cm GESTATIONAL AGE: 36 weeks 3 days CONCLUSION: Total biophysical profile score 8.0. Electronically authenticated by: JUDITH MACHUCA Date: 07/26/2023 05:40
[2023-07-25 16:28] VITALS: BP 117/72; PULSE 88
== END 2023-07-25 17:07 | disposition home or self-care (01) ==
LOC: US 07:18 → FBC 15:57
PROVIDERS: PCP Family Medicine; Visit Provider Obstetrics & Gynecology
DX: O40.9XX0 Polyhydramnios, unspecified trimester, not applicable or unspecified (principal); Z3A.36 36 weeks gestation of pregnancy
CPT/HCPCS: 76818

== ENCOUNTER 2023-07-28 07:04 | Outpatient (OUT) | payer BC, SELFPAY ==
--- OUTSIDE RECORDS SUMMARY | 2023-07-28 07:07 | XMS_ITS | CCD ---
Author Organization [facility] Care Team Providers Care Poultry Pinner Name Role Phone Lydia Dudley Unavailable Mohini [...] Unavailable HOY ., DR PERDUE Consulting Unavailable OTSEGO, DR DUDLEY Emanuel Consulting Unavailable JENNIFER ., [...] Unavailable Iron Garcia MD Primary Care Provider [phone] JENNIFER, RICARDO Attending Unavailable JENNIFER, RICARDO Attending Unavailable JENNIFER, RICARDO Attending Unavailable JENNIFER, RICARDO Attending Unavailable JENNIFER, RICARDO Attending Unavailable JENNIFER, RICARDO Attending Unavailable JENNIFER, RICARDO Attending Unavailable JENNIFER, RICARDO Attending Unavailable JENNIFER, RICARDO Attending Unavailable Medications Current Medications Medication Drug Class(es) Dates Sig (Normalized) Sig (Original) [id number] 200 actuat albuterol 0.09 mg/actuat metered dose [...] DAILY NEEDED FOR NAUSEA 0 02/19/2023 Active [id number]-Xobw Fum-Folic Ac-Om3 (One A Day Women's Dha) 28 mg iron- 800 mcg combo pack (1 source) Start: 05-22-2023 Wmzenx01-Lnsy Fum-Folic Ac-Om3 (One A Day Women's Dha) [...] SARS-CoV-2 (COVID-19) RNA SHIRIN+probe Ql (Unsp spec) [facility] Urinalysis macro (dipstick) panel (U)on 05-10-2023 Bilirubin, UA Negative Negative - 4(70) +++ mg/dL [facility] Blood, UA Negative Negative - 50 Jayson/mcL [facility] Clarity, UA Clear [facility] Color, UA Yellow [facility] Glucose, UA Negative Negative - 1999(110) ++++ mg/dL [facility] Interpretation and review of laboratory results Abnormal [facility] Ketones, UA Positive Negative - 160(16) ++++ mg/dL [facility] Comment on above: trace Leukocytes, UA Trace Negative - 500+++ Lolita/mcL [facility] Nitrite, UA Negative Negative - Positive [facility] pH, UA 6.0 5 - 9 [facility] Protein, UA Negative Negative - 1999(20) ++++ mg/dL [facility] Spec Grav, UA 1.030 1 - 1.03 [facility] Urobilinogen, UA 0.2 0.2 - 12 mg/dL [facility] CBC AUTO DIFFon 07-08-2022 BASO # 0.0 103/ul Normal 0.0-0.1 [facility] Comment on above: Performed By: #### R F #### [facility] [address] [place] [address] Dr. Venkat Sloan Basophils/100 WBC (Bld) 0.5 % Normal 0.2-2.0 [facility] Comment on above: Performed By: #### R F #### [facility] [address] [place] [address] Dr. Venkat Solan EO # 0.1 103/ul Normal 0.0-0.7 [facility] Comment on above: Performed By: #### R F #### [facility] [address] [place] [address] Dr. Venkat Sloan Eosinophils/100 WBC (Bld) 1.7 % Normal 0.9-7.0 [facility] Comment on above: Performed By: #### R F #### [facility] [address] [place] [address] Dr. Venkat Sloan Erythrocyte distribution width (RBC) [Ratio] 12.7 % Normal 11.0-15.0 [facility] Comment on above: Performed By: #### R F #### [facility] [address] [place] [address] Dr. Venkat Sloan Hematocrit (Bld) [Volume fraction] 40.4 % Normal 36.0-48.0 [facility] Comment on above: Performed By: #### R F #### [facility] [address] [place] [address] Dr. Venkat Sloan Hemoglobin (Bld) [Mass/Vol] 13.1 g/dL Normal 12.0-16.0 [facility] Comment on above: Performed By: #### R F #### [facility] [address] [place] [address] Dr. Venkat Sloan IG # 0.02 10e3/ul Normal 0.00-0.03 [facility] Comment on above: Performed By: #### R F #### [facility] [address] [place] [address] Dr. Venkat Sloan IG % 0.3 % Normal 0.0-0.5 [facility] Comment on above: Performed By: #### R F #### [facility] [address] [place] [address] Dr. Venkat Sloan LYMPH # 2.0 103/ul Normal 1.2-3.8 [facility] Comment on above: Performed By: #### R F #### [facility] [address] [place] [address] Dr. Venkat Sloan Lymphocytes/100 WBC (Bld) 26.2 % Normal 20.5-60.0 [facility] Comment on above: Performed By: #### R F #### [facility] [address] [place] [address] Dr. Venkat Sloan MANUAL DIFF REQ NO Normal [facility] Comment on above: Performed By: #### R F #### [facility] [address] [place] [address] Dr. Venkat Sloan MCH (RBC) [Entitic mass] 28.4 pg Normal 26.7-34.0 [facility] Comment on above: Performed By: #### R F #### [facility] [address] [place] [address] Dr. Venkat Sloan MCHC (RBC) [Mass/Vol] 32.4 g/dL Normal 29.9-35.2 [facility] Comment on above: Performed By: #### R F #### [facility] [address] [place] [address] Dr. Venkat Sloan MCV (RBC) [Entitic vol] 87.4 fL Normal 81.0-99.0 [facility] Comment on above: Performed By: #### R F #### [facility] [address] [place] [address] Dr. Venkat Sloan MONO # 0.7 103/ul Normal 0.3-0.8 [facility] Comment on above: Performed By: #### R F #### [facility] [address] [place] [address] Dr. Venkat Sloan Monocytes/100 WBC (Bld) 8.8 % Normal 1.7-12.0 [facility] Comment on above: Performed By: #### R F #### [facility] [address] [place] [address] Dr. Venkat Sloan NEUT # 4.8 103/ul Normal 1.4-6.5 [facility] Comment on above: Performed By: #### R F #### [facility] [address] [address] [address] Venkat Sloan Neutrophils/100 WBC (Bld) 62.5 % Normal 43.0-75.0 [facility] Comment on above: Performed By: #### R F #### [facility] [address] [address] [address] Venkat Sloan Platelet mean volume (Bld) [Entitic vol] 8.5 fL Critically low 9.5-13.5 [facility] Comment on above: Performed By: #### R F #### [facility] [address] [place] [address] Dr. Venkat Sloan PLT 331 103/ul Normal 150-450 [facility] Comment on above: Performed By: #### R F #### [facility] [address] [place] [address] Dr. Venkat Sloan RBC 4.62 106/ul Normal 4.20-5.40 [facility] Comment on above: Performed By: #### R F #### [facility] [address] [place] [address] Dr. Venkat Sloan WBC 7.7 103/ul Normal 4.0-11.0 [facility] Comment on above: Performed By: #### R F #### [facility] [address] [place] [address] Dr. Venkat Sloan PREG QUANT HCGon 07-08-2022 HCG QUANT <1 Normal [facility] Comment on above: Performed By: #### P REGQNT #### [facility] [address] [place] [address] Dr. Venkat Sloan HCG RANGE SEE BELOW Normal [facility] Comment on above: Result Comment: 5-50 0.2-1 WEEK 50-500 1-2 WEEKS 100-5,000 2-3 WEEKS 500-10,000 3-4 WEEKS 1,000-50,000 4-5 WEEKS 10,000-100,000 5-6 WEEKS 15,000-200,000 6-8 WEEKS 10,000-100,000 2-3 MONTHS Performed By: #### P REGQNT #### [facility] [address] [place] [address] Dr. Venkat Sloan PROGESTERONEon 06-23-2022 Progesterone 5.7 ng/mL Normal [facility] Comment on above: Result Comment: Foll icular phase 0.1 - 0.9 Luteal phase 1.8 - 23.9 Ovulation phase 0.1 - 12.0 First trimester 11.0 - 44.3 Second trimester 25.4 - 83.3 Third trimester 58.7 - 214.0 Postmenopausal 0.0 - 0.1 Performed By: #### T SH #### [facility] [address] [place] [address] Dr. Venkat Sloan PREG QUANT HCGon 05-31-2022 HCG QUANT 1 mIU/mL Normal [facility] Comment on above: Performed By: #### P REGQNT #### [facility] [address] [place] [address] Dr. Venkat Sloan HCG RANGE SEE BELOW Normal [facility] Comment on above: Result Comment: 5-50 0.2-1 WEEK 50-500 1-2 WEEKS 100-5,000 2-3 WEEKS 500-10,000 3-4 WEEKS 1,000-50,000 4-5 WEEKS 10,000-100,000 5-6 WEEKS 15,000-200,000 6-8 WEEKS 10,000-100,000 2-3 MONTHS Performed By: #### P REGQNT #### [facility] [address] [place] [address] Dr. Venkat Sloan PROGESTERONEon 05-21-2022 Progesterone 12.4 ng/mL Normal [facility] Comment on above: Result Comment: Foll icular phase 0.1 - 0.9 Luteal phase 1.8 - 23.9 Ovulation phase 0.1 - 12.0 First trimester 11.0 - 44.3 Second trimester 25.4 - 83.3 Third trimester 58.7 - 214.0 Postmenopausal 0.0 - 0.1 Performed By: #### I NFLUAB #### [facility] [address] [place] [address] Dr. Venkat Sloan MRI BRAIN WO W [...] [facility] PREG QUANT HCGon 05-04-2022 HCG QUANT <1 Normal [facility] Comment on above: Performed By: #### R F #### [facility] [address] [address] [address] Venkat Sloan HCG RANGE SEE BELOW Normal [facility] Comment on above: Result Comment: 5-50 0.2-1 WEEK 50-500 1-2 WEEKS 100-5,000 2-3 WEEKS 500-10,000 3-4 WEEKS 1,000-50,000 4-5 WEEKS 10,000-100,000 5-6 WEEKS 15,000-200,000 6-8 WEEKS 10,000-100,000 2-3 MONTHS Performed By: #### R F #### [facility] [address] [address] [address] Venkat Sloan XR HYSTEROSALPINGOGRAMon XR HYSTEROSALPINGOGRAM [...] by: LAM VELA Date: 2022-05-04 16:09 Normal [facility] PROGESTERONEon 04-24-2022 Progesterone 0.4 ng/mL Normal [facility] Comment on above: Result Comment: Foll icular phase 0.1 - 0.9 Luteal phase 1.8 - 23.9 Ovulation phase 0.1 - 12.0 First trimester 11.0 - 44.3 Second trimester 25.4 - 83.3 Third trimester 58.7 - 214.0 Postmenopausal 0.0 - 0.1 Performed By: #### I NFLUAB #### [facility] [address] [address] [address] Venkat Sloan CULTURE SPUTUMon 04-02-2022 CULTURE SPUTUM Culture Observations : NORMAL RESPIRATORY NATALEE. Normal [facility] Comment on above: Performed By: #### R F #### [facility] [address] [address] [address] Venkat Sloan SPUTUM GRAM STAINon 04-02-19 23 COMMENTS Normal [facility] Comment on above: Performed By: #### R F #### [facility] [address] [address] [address] Venkat Sloan DIPHTHEROIDS Normal [facility] Comment on above: Performed By: #### R F #### [facility] [address] [address] [address] Venkat Sloan EPITHELIALS <25 Normal [facility] Comment on above: Performed By: #### R F #### [facility] [address] [address] [address] Venkat Sloan FUNGAL ELEMENTS Normal [facility] Comment on above: Performed By: #### R F #### [facility] [address] [address] [address] Venkat Sloan GRAM NEG BACILLI RARE Normal [facility] Comment on above: Performed By: #### R F #### [facility] [address] [place] [address] Dr. Venkat Sloan GRAM NEG DIPPLOCOCCI Normal [facility] Comment on above: Performed By: #### R F #### [facility] [address] [place] [address] Dr. Venkat Sloan GRAM POS BACILLI Normal [facility] Comment on above: Performed By: #### R F #### [facility] [address] [place] [address] Dr. Venkat Sloan GRAM POSITIVE COCCI RARE Normal [facility] Comment on above: Performed By: #### R F #### [facility] [address] [place] [address] Dr. Venkat Sloan WBC (Bld) [#/Vol] 10*3/uL Normal [facility] Comment on above: Performed By: #### R F #### [facility] [address] [place] [address] Dr. Venkat Sloan Covid-19 PCR ([facility])on SARS-CoV-2 (COVID-19) RNA SHIRIN+probe Ql (Unsp spec) Not detected Normal NOT DETECTED [facility] Comment on above: Result Comment: This test is not yet approved or cleared by the [place] FDA. When there are no FDA-approved or cleared tests available, and other criteria are met, FDA can make tests available under an emergency access mechanism called an Emergency Use Authorization (EUA). The EUA for this test is supported by the [place] of Health and Human Service's (HHS's) declaration [...] REGQNT #### [facility] [address] [address] [address] Venkat Sloan INFLUENZA A AND B AGon 04-01 [facility] SEE BELOW Normal [facility] Comment on above: Result Comment: Nega tive for Flu A protein angiten. Infection due to Flu A cannot be ruled out. Flu A angiten in the sample may be below the detection limit of the test. Performed By: #### I NFLUAB #### [facility] [address] [place] [address] Dr. Venkat [facility] SEE BEL[facility] Normal [facility] Comment on above: Result Comment: Nega tive for Flu B protein antigen. Infection due to Flu B cannot be ruled out. Flu B antigen in the sample may be below the detection limit of the test. Performed By: #### I NFLUAB #### [facility] [address] [place] [address] Dr. Venkat Sloan INFLUENZA A AG Negative Normal NEGATIVE SEE COMMENT The [facility] Comment on above: Performed By: #### I NFLUAB #### [facility] [address] [place] [address] Dr. Venkat Sloan INFLUENZA B AG Negative Normal NEGATIVE SEE COMMENT The [facility] Comment on above: Performed By: #### I NFLUAB #### [facility] [address] [place] [address] Dr. Venkat Sloan XR CHEST 2 Von [...] [facility] Covid-19 PCR ([facility])on 02-25 SARS-CoV-2 (COVID-19) RNA SHIRIN+probe Ql (Unsp spec) Not detected Normal NOT DETECTED [facility] Comment on above: Result Comment: When diagnostic [...] for this test is supported by the [employer] [place] of Health and Human Service's declaration that [...] F #### [facility] [address] [place] [address] Dr. Venkat Sloan INFLUENZA A AND B [facility] 03-15 [facility] SEE BELOW Normal [facility] Comment on above: Result Comment: Nega tive for Flu A protein angiten. Infection due to Flu A cannot be ruled out. Flu A angiten in the sample may be below the detection limit of the test. Performed By: #### I NFLUAB #### [facility] [address] [place] [address] Dr. eVnkat Sloan [facility] Normal [facility] Comment on above: Result Comment: Nega tive for Flu B protein antigen. Infection due to Flu B cannot be ruled out. Flu B antigen in the sample may be below the detection limit of the test. Performed By: #### I NFLUAB #### [facility] [address] [place] [address] Dr. Venkat Sloan INFLUENZA A AG Negative Normal NEGATIVE SEE COMMENT [facility] Comment on above: Performed By: #### I NFLUAB #### [facility] [address] [place] [address] Dr. Venkat Sloan INFLUENZA B AG Negative Normal NEGATIVE SEE COMMENT [facility] Comment on above: Performed By: #### I NFLUAB #### [facility] [address] [place] [address] Dr. Venkat Sloan INTERNAL CONTROLS Within Normal Limits Normal Wi thin Normal Limits [facility] Comment on above: Performed By: #### I NFLUAB #### [facility] [address] [place] [address] Dr. Venkat Sloan Covid-19 PCR ([facility])on 02-25 SARS-CoV-2 (COVID-19) RNA SHIRIN+probe Ql (Unsp spec) Not detected Normal NOT DETECTED [facility] Comment on above: Result Comment: When diagnostic [...] for this test is supported by the [place] of Health and Human Service's declaration that [...] NFLUAB #### [facility] [address] [place] [address] Dr. Venkat Sloan INFLUENZA A AND B AGon 03-12 [facility] SEE BELOW Normal [facility] Comment on above: Result Comment: Nega tive for Flu A protein angiten. Infection due to Flu A cannot be ruled out. Flu A angiten in the sample may be below the detection limit of the test. Performed By: #### I NFLUAB #### [facility] [address] [place] [address] Dr. Venkat Sloan INFLUBNEG SEE BELOW Normal [facility] Comment on above: Result Comment: Nega tive for Flu B protein antigen. Infection due to Flu B cannot be ruled out. Flu B antigen in the sample may be below the detection limit of the test. Performed By: #### I NFLUAB #### [facility] [address] [address] [address] Venkat Sloan INFLUENZA A AG Negative Normal NEGATIVE SEE COMMENT [facility] Comment on above: Performed By: #### I NFLUAB #### [facility] [address] [place] [address] Dr. Venkat Slaon INFLUENZA B AG Negative Normal NEGATIVE SEE COMMENT [facility] Comment on above: Performed By: #### I NFLUAB #### [facility] [address] [address] [address] Venkat Sloan INTERNAL CONTROLS Within Normal Limits Normal Wi thin Normal Limits The [facility] Comment on above: Performed By: #### I NFLUAB #### [facility] [address] [place] [address] Dr. Venkat Sloan PROGESTERONEon 02-20-2022 Progesterone 0.3 ng/mL Normal [facility] Comment on above: Result Comment: Foll icular phase 0.1 - 0.9 Luteal phase 1.8 - 23.9 Ovulation phase 0.1 - 12.0 First trimester 11.0 - 44.3 Second trimester 25.4 - 83.3 Third trimester 58.7 - 214.0 Postmenopausal 0.0 - 0.1 Performed By: #### R F #### [facility] [address] [place] [address] Dr. Venkat Sloan ACTH STIMULATIONon 2 Andros Baseline 49 ng/dL Normal 41-262 [facility] Comment on above: Performed By: #### R F #### [facility] [address] [place] [address] Dr. Venkat Sloan Andros Stimulated 82 ng/dL Normal Not Estab. [facility] Comment on above: Performed By: #### R F #### [facility] [address] [place] [address] Dr. Venkat Sloan [facility] SARS-CoV-2 (COVID-19) RNA SHIRIN+probe Ql (Unsp spec) Not detected Normal NOT DETECTED [facility] Comment on above: Result Comment: This test is not yet approved or cleared by the [place] FDA. When there are no FDA-approved or cleared tests available, and other criteria are met, FDA can make tests available under an emergency access mechanism called an Emergency Use Authorization (EUA). The EUA for this test is supported by the [employer] of Health and Human Service's (HHS's) declaration [...] NFLUAB #### [facility] [address] [place] [address] Dr. Venkat Sloan INFLUENZA A AND B [facility] 02-10 [facility] SEE BELOW Normal [facility] Comment on above: Result Comment: Nega tive for Flu A protein angiten. Infection due to Flu A cannot be ruled out. Flu A angiten in the sample may be below the detection limit of the test. Performed By: #### P REGQNT #### [facility] [address] [place] [address] Dr. Venkat [facility] BEL[facility] Normal [facility] Comment on above: Result Comment: Nega tive for Flu B protein antigen. Infection due to Flu B cannot be ruled out. Flu B antigen in the sample may be below the detection limit of the test. Performed By: #### P REGQNT #### [facility] [address] [place] [address] Dr. Venkat Sloan INFLUENZA A AG Negative Normal NEGATIVE SEE COMMENT [facility] Comment on above: Performed By: #### P REGQNT #### [facility] [address] [place] [address] Dr. Venkat Sloan INFLUENZA B AG Negative Normal NEGATIVE SEE COMMENT [facility] Comment on above: Performed By: #### P REGQNT #### [facility] [place] [facility] [address] [place], [place] [address] Dr. Venkat Sloan INTERNAL CONTROLS Within Normal Limits Normal Wi thin Normal Limits The [facility] [place] Comment on above: Performed By: #### P REGQNT #### [facility] [place] [facility] [address] [place] [address] Dr. Venkat Sloan DHEA SERUMon 01-19-2022 Dehydroepiandrosterone (DHEA) 82 ng/dL Normal -701 [facility] Comment on above: Result Comment: Age 1 [...] SH #### [facility] [address] [place] [address] Dr. Venkat Sloan DHEA-SULFATEon 01-14-2022 DHEA-Sulfate 34.0 ug/dL Critically low 84.8-378.0 [facility] Comment on above: Performed By: #### R F #### [facility] [address] [place] [address] [address] Venkat Sloan FSHon 01-14-2022 FSH 2.2 mIU/mL Normal [facility] Comment on above: Result Comment: Adul t Female: Follicular phase 3.5 - 12.5 Ovulation phase 4.7 - 21.5 Luteal phase 1.7 - 7.7 Postmenopausal 25.8 - 134.8 Performed By: #### L BCFSH #### [facility] [address] [place] [address] [address] Venkat Sloan LUTEINIZING HORMONE (LH)on 1 LH 5.1 mIU/mL Normal [facility] Comment on above: Result Comment: Adul t Female: Follicular phase 2.4 - 12.6 Ovulation phase 14.0 - 95.6 Luteal phase 1.0 - 11.4 Postmenopausal 7.7 - 58.5 Performed By: #### I NFLUAB #### [facility] [address] [place] [address] Dr. Venkat Sloan PROLACTINon 01-14-2022 Prolactin 8.0 ng/mL Normal 4.8-23.3 [facility] Comment on above: Performed By: #### P ROLAC #### [facility] [address] [place] [address] Dr. Venkat Sloan CBC AUTO DIFFon 01-13-2022 BASO # 0.0 103/ul Normal 0.0-0.1 [facility] Comment on above: Performed By: #### T SH #### [facility] [address] [place] [address] Dr. Venkat Sloan Basophils/100 WBC (Bld) 0.4 % Normal 0.2-2.0 [facility] Comment on above: Performed By: #### T SH #### [facility] [address] [place] [address] Dr. Venkat Sloan EO # 0.1 103/ul Normal 0.0-0.7 [facility] Comment on above: Performed By: #### T SH #### [facility] [address] [place] [address] Dr. Venkat Sloan Eosinophils/100 WBC (Bld) 1.2 % Normal 0.9-7.0 [facility] Comment on above: Performed By: #### T SH #### [facility] [address] [place] [address] Dr. Venkat Sloan Erythrocyte distribution width (RBC) [Ratio] 12.7 % Normal 11.0-15.0 [facility] Comment on above: Performed By: #### T SH #### [facility] [address] [place] [address] Dr. Venkat Sloan Hematocrit (Bld) [Volume fraction] 41.1 % Normal 36.0-48.0 [facility] Comment on above: Performed By: #### T SH #### [facility] [address] [place] [address] Dr. Venkat Sloan Hemoglobin (Bld) [Mass/Vol] 13.1 g/dL Normal 12.0-16.0 [facility] Comment on above: Performed By: #### T SH #### [facility] [address] [place] [address] Dr. Venkat Sloan IG # 0.03 10e3/ul Normal 0.00-0.03 [facility] Comment on above: Performed By: #### T SH #### [facility] [address] [place] [address] Dr. Venkat Sloan IG % 0.3 % Normal 0.0-0.5 [facility] Comment on above: Performed By: #### T SH #### [facility] [address] [place] [address] Dr. Venkat Sloan LYMPH # 1.6 103/ul Normal 1.2-3.8 [facility] Comment on above: Performed By: #### T SH #### [facility] [address] [place] [address] Dr. Venkat Slaon Lymphocytes/100 WBC (Bld) 15.0 % Critically low 20.5-60.0 [facility] Comment on above: Performed By: #### T SH #### [facility] [address] [place] [address] Dr. Venkat Sloan MANUAL DIFF REQ NO Normal [facility] Comment on above: Performed By: #### T SH #### [facility] [address] [place] [address] Dr. Venkat Sloan MCH (RBC) [Entitic mass] 28.5 pg Normal 26.7-34.0 [facility] Comment on above: Performed By: #### T SH #### [facility] [address] [place] [address] Dr. Venkat Sloan MCHC (RBC) [Mass/Vol] 31.9 g/dL Normal 29.9-35.2 [facility] Comment on above: Performed By: #### T SH #### [facility] [address] [place] [address] Dr. Venkat Sloan MCV (RBC) [Entitic vol] 89.3 fL Normal 81.0-99.0 [facility] Comment on above: Performed By: #### T SH #### [facility] [address] [place] [address] Dr. Venkat Sloan MONO # 0.9 103/ul Critically high 0.3-0.8 [facility] Comment on above: Performed By: #### T SH #### [facility] [address] [place] [address] Dr. Venkat Sloan Monocytes/100 WBC (Bld) 8.8 % Normal 1.7-12.0 [facility] Comment on above: Performed By: #### T SH #### [facility] [address] [place] [address] [address] Venkat Sloan NEUT # 7.9 103/ul Critically high 1.4-6.5 [facility] Comment on above: Performed By: #### T SH #### [facility] [address] [place] [address] Dr. Venkat Sloan Neutrophils/100 WBC (Bld) 74.3 % Normal 43.0-75.0 [facility] Comment on above: Performed By: #### T SH #### [facility] [address] [place] [address] Dr. Venkat Sloan Platelet mean volume (Bld) [Entitic vol] 9.2 fL Critically low 9.5-13.5 [facility] Comment on above: Performed By: #### T SH #### [facility] [address] [place] [address] Dr. Venkat Sloan PLT 300 103/ul Normal 150-450 [facility] Comment on above: Performed By: #### T SH #### [facility] [address] [place] [address] Dr. Venkat Sloan RBC 4.60 106/ul Normal 4.20-5.40 [facility] Comment on above: Performed By: #### T SH #### [facility] [address] [place] [address] Dr. Venkat Sloan WBC 10.7 103/ul Normal 4.0-11.0 [facility] Comment on above: Performed By: #### T SH #### [facility] [address] [place] [address] Dr. Venkat Sloan GLYCOHEMOGLOBIN A1Con 2021 ADA RECOMMENDATION SEE BELOW Normal [facility] Comment on above: Result Comment: ADA RECOMMENDED LIMIT 4.0 - 6.0 ADA THERAPEUTIC TARGET < 7.0 ACTION SUGGESTED > 7.0 Performed By: #### P REGQNT #### [facility] [address] [place] [address] Dr. Venkat Sloan Glucose [Mass/Vol] 100 mg/dL Normal [facility] Comment on above: Performed By: #### P REGQNT #### [facility] [address] [place] [address] [address] Venkat Slona HbA1c (Bld) [Mass fraction] 5.1 % Normal 4.5-6.2 [facility] Comment on above: Performed By: #### P REGQNT #### [facility] [address] [place] [address] Dr. Venkat Sloan TSHon 01-13-2022 TSH 1.098 uIU/mL Normal 0.358-3.740 [facility] Comment on above: Performed By: #### T SH #### [facility] [address] [place] [address] Dr. Venkat Sloan [facility]26 SARS-CoV-2 (COVID-19) RNA SHIRIN+probe Ql (Unsp spec) Not detected Normal NOT DETECTED [facility] Comment on above: Result Comment: This test is not yet approved or cleared by the [place] FDA. When there are no FDA-approved or cleared tests available, and other criteria are met, FDA can make tests available under an emergency access mechanism called an Emergency Use Authorization (EUA). The EUA for this test is supported by the [place] of Health and Human Service's (HHS's) declaration [...] NFLUAB #### [facility] [address] [place] [address] Dr. Venkat Sloan PREG QUANT HCGon 12-24-2021 HCG QUANT <1 Normal [facility] Comment on above: Performed By: #### P REGQNT #### [facility] [address] [place] [address] Dr. Venkat Sloan HCG RANGE SEE BELOW Normal [facility] Comment on above: Result Comment: 5-50 0.2-1 WEEK 50-500 1-2 WEEKS 100-5,000 2-3 WEEKS 500-10,000 3-4 WEEKS 1,000-50,000 4-5 WEEKS 10,000-100,000 5-6 WEEKS 15,000-200,000 6-8 WEEKS 10,000-100,000 2-3 MONTHS Performed By: #### P REGQNT #### [facility] [address] [place] [address] Dr. Venkat Sloan HCG-BETA SUBUNIT QUANTon hCG,Beta Subunit,Qnt,Serum <1 Normal [facility] Comment on above: Result Comment: Fema le (Non-) 0 - 5 (Postmenopausal) 0 - 8 . Female () Weeks of Gestation 3 6 - 71 4 10 - 750 5 217 - 7138 6 158 - [phone] 7 [phone] 8 [phone] 9 [id number] [id number] [phone] -[phone] 12 31648 -[phone] 14 47145 - 43111 15 11767 - 89780 16 2926 - 26646 17 4781 - 29884 18 3491 - 99528 Aj ECLIA methodology Performed By: #### T SH #### [facility] [address] [place] [address] Dr. Venkat Sloan BRETT by IFAon 09-29-2021 Antinuclear Antibodies, IFA Negative Normal [facility] Comment on above: Result Comment: Nega tive <1:80 Borderline 1:80 Positive >1:80 ICAP nomenclature: AC-0 For more information about Hep-2 cell patterns use ANApatterns.org, the official website for the International Consensus on Antinuclear Antibody (BRETT) Patterns (ICAP). Performed By: #### A NAIFA #### [facility] [address] [place] [address] Dr. Venkat Sloan INSULINon 09-29-2021 Insulin 11.1 uIU/mL Normal 2.6-24.9 [facility] Comment on above: Performed By: #### T SH #### [facility] [address] [place] [address] Dr. Venkat Sloan ANTISTREPTOLYSIN O AB (ASO)o n 09-27-2021 Antistreptolysin O Ab <20.0 Normal 0.0-200.0 [facility] Comment on above: Performed By: #### P REGQNT #### [facility] [address] [place] [address] Dr. Venkat Sloan RHEUMATOID FACTORon 09-28-19 RA Latex Turbid. <10.0 Normal <14.0 [facility] Comment on above: Performed By: #### R F #### [facility] [address] [place] [address] Dr. Venkat Sloan CBC AUTO DIFFon 09-26-2021 BASO # 0.0 103/ul Normal 0.0-0.1 [facility] Comment on above: Performed By: #### T SH #### [facility] [address] [place] [address] Dr. Venkat Sloan Basophils/100 WBC (Bld) 0.3 % Normal 0.2-2.0 [facility] Comment on above: Performed By: #### T SH #### [facility] [address] [place] [address] Dr. Venkat Sloan EO # 0.1 103/ul Normal 0.0-0.7 [facility] Comment on above: Performed By: #### T SH #### [facility] [address] [place] [address] Dr. Venkat Sloan Eosinophils/100 WBC (Bld) 1.8 % Normal 0.9-7.0 [facility] Comment on above: Performed By: #### T SH #### [facility] [address] [place] [address] Dr. Venkat Sloan Erythrocyte distribution width (RBC) [Ratio] 12.9 % Normal 11.0-15.0 [facility] Comment on above: Performed By: #### T SH #### [facility] [address] [place] [address] Dr. Venkat Sloan Hematocrit (Bld) [Volume fraction] 39.8 % Normal 36.0-48.0 [facility] Comment on above: Performed By: #### T SH #### [facility] [address] [place] [address] Dr. Venkat Sloan Hemoglobin (Bld) [Mass/Vol] 12.7 g/dL Normal 12.0-16.0 [facility] Comment on above: Performed By: #### T SH #### [facility] [address] [place] [address] Dr. Venkat Sloan IG # 0.02 10e3/ul Normal 0.00-0.03 [facility] Comment on above: Performed By: #### T SH #### [facility] [address] [place] [address] Dr. Venkat Sloan IG % 0.3 % Normal 0.0-0.5 [facility] Comment on above: Performed By: #### T SH #### [facility] [address] [place] [address] Dr. Venkat Sloan LYMPH # 1.5 103/ul Normal 1.2-3.8 [facility] Comment on above: Performed By: #### T SH #### [facility] [address] [place] [address] Dr. Venkat Sloan Lymphocytes/100 WBC (Bld) 21.5 % Normal 20.5-60.0 [facility] Comment on above: Performed By: #### T SH #### [facility] [address] [place] [address] Dr. Venkat Sloan MANUAL DIFF REQ NO Normal [facility] Comment on above: Performed By: #### T SH #### [facility] [address] [place] [address] Dr. Venkat Sloan MCH (RBC) [Entitic mass] 28.5 pg Normal 26.7-34.0 [facility] Comment on above: Performed By: #### T SH #### [facility] [address] [place] [address] Dr. Venkat Sloan MCHC (RBC) [Mass/Vol] 31.9 g/dL Normal 29.9-35.2 [facility] Comment on above: Performed By: #### T SH #### [facility] [address] [place] [address] Dr. Venkat Sloan MCV (RBC) [Entitic vol] 89.2 fL Normal 81.0-99.0 [facility] Comment on above: Performed By: #### T SH #### [facility] [address] [place] [address] Dr. Venkat Sloan MONO # 0.5 103/ul Normal 0.3-0.8 [facility] Comment on above: Performed By: #### T SH #### [facility] [address] [place] [address] Dr. Venkat Sloan Monocytes/100 WBC (Bld) 7.6 % Normal 1.7-12.0 [facility] Comment on above: Performed By: #### T SH #### [facility] [address] [place] [address] Dr. Venkat Sloan NEUT # 4.9 103/ul Normal 1.4-6.5 [facility] Comment on above: Performed By: #### T SH #### [facility] [address] [place] [address] Dr. Venkat Sloan Neutrophils/100 WBC (Bld) 68.5 % Normal 43.0-75.0 [facility] Comment on above: Performed By: #### T SH #### [facility] [address] [place] [address] Dr. Venkat Sloan Platelet mean volume (Bld) [Entitic vol] 8.8 fL Critically low 9.5-13.5 [facility] Comment on above: Performed By: #### T SH #### [facility] [address] [place] [address] Dr. Venkat Sloan PLT 297 103/ul Normal 150-450 [facility] Comment on above: Performed By: #### T SH #### [facility] [address] [place] [address] Dr. Venkat Sloan RBC 4.46 106/ul Normal 4.20-5.40 [facility] Comment on above: Performed By: #### T SH #### [facility] [address] [place] [address] Dr. Venkat Sloan WBC 7.1 103/ul Normal 4.0-11.0 [facility] Comment on above: Performed By: #### T SH #### [facility] [address] [place] [address] Dr. Venkat Sloan CRPon 09-26-2021 CRP [Mass/Vol] mg/L Normal <=1.0 [facility] Comment on above: Performed By: #### P REGQNT #### [facility] [address] [place] [address] Dr. Venkat Sloan FREE THYROXINE INDEX T7on FTI 2.71 Normal 1.30-4.50 [facility] Comment on above: Performed By: #### P REGQNT #### [facility] [address] [place] [address] Dr. Venkat Sloan T3U 33.0 % Normal 30.0-39.0 [facility] Comment on above: Performed By: #### P REGQNT #### [facility] [address] [place] [address] Dr. Venkat Sloan T4 [Mass/Vol] 8.20 ug/dL Normal 4.80-13.90 [facility] Comment on above: Performed By: #### P REGQNT #### [facility] [address] [place] [address] Dr. Venkat Sloan GLYCOHEMOGLOBIN A1Con 2021 ADA RECOMMENDATION SEE BELOW Normal [facility] Comment on above: Result Comment: ADA RECOMMENDED LIMIT 4.0 - 6.0 ADA THERAPEUTIC TARGET < 7.0 ACTION SUGGESTED > 7.0 Performed By: #### I NFLUAB #### [facility] [address] [address] [address] Venkat Sloan Glucose [Mass/Vol] 105 mg/dL Normal [facility] Comment on above: Performed By: #### I NFLUAB #### [facility] [address] [address] [address] Venkat Sloan HbA1c (Bld) [Mass fraction] 5.3 % Normal 4.5-6.2 [facility] Comment on above: Performed By: #### I NFLUAB #### [facility] [address] [address] [address] Venkat Sloan IRONon 09-26-2021 Iron [Mass/Vol] 49.0 ug/dL Critically low 50.0-170.0 [facility] Comment on above: Performed By: #### P REGQNT #### [facility] [address] [place] [address] Dr. Venkat Sloan LIPID PROFILEon 09-26-2021 CHOL-HDL RATIO NORM SEE BELOW Normal [facility] Comment on above: Result Comment: 3.3 - 4.4 LOW RISK 4.4 - 7.1 AVERAGE RISK 7.1 - 11.0 MODERATE RISK >11.0 HIGH RISK Performed By: #### P REGQNT #### [facility] [address] [address] [address] Venkat Sloan Cholesterol [Mass/Vol] 197 mg/dL Normal <=200 [facility] Comment on above: Performed By: #### P REGQNT #### [facility] [address] [address] [address] Venkat Sloan Cholesterol in HDL [Mass/Vol] 64 mg/dL Critically high 40-60 [facility] Comment on above: Performed By: #### P REGQNT #### [facility] [address] [address] [address] Venkat Sloan Cholesterol in LDL [Mass/Vol] 123.4 mg/dL Normal [facility] Comment on above: Performed By: #### P REGQNT #### [facility] [address] [address] [address] Venkat Sloan Cholesterol.total/Choles terol in HDL [Mass ratio] 3.1 {ratio} Normal [facility] Comment on above: Performed By: #### P REGQNT #### [facility] [address] [address] [address] Venkat Sloan HDL NORMAL > or = 60 mg/dl - LO W CARDIOVASCULAR RISK <40 mg/dl - HIGH CARDIOVASCULAR RISK Normal [facility] Comment on above: Performed By: #### P REGQNT #### [facility] [address] [address] [address] Venkat Sloan LDL CALC NORMAL SEE BELOW Normal [facility] Comment on above: Result Comment: <100 mg/dl OPTIMAL 100 - 129 mg/dl NEAR OR ABOVE OPTIMAL 130 - 159 mg/dl BORDERLINE HIGH 160 - 189 mg/dl HIGH >190 mg/dl VERY HIGH Performed By: #### P REGQNT #### [facility] [address] [place] [address] Dr. Venkat Sloan Triglyceride [Mass/Vol] 48 mg/dL Normal <=150 [facility] Comment on above: Performed By: #### P REGQNT #### [facility] [address] [address] [address] Venkat Sloan VLDL CALC 9.6 mg/dL Normal [facility] Comment on above: Performed By: #### P REGQNT #### [facility] [address] [place] [address] Dr. Venkat Sloan PROF 14(COMP METB)on 022 Albumin [Mass/Vol] 4.0 g/dL Normal 3.4-5.0 [facility] Comment on above: Performed By: #### I NFLUAB #### [facility] [address] [place] [address] Dr. Venkat Sloan Albumin/Globulin [Mass ratio] 1.3 {ratio} Normal [facility] Comment on above: Performed By: #### I NFLUAB #### [facility] [address] [place] [address] Dr. Venkat Sloan ALP [Catalytic activity/Vol] 58 U/L Normal 46-116 [facility] Comment on above: Performed By: #### I NFLUAB #### [facility] [address] [address] [address] Venkat Sloan ALT [Catalytic activity/Vol] 20 U/L Normal 14-59 [facility] Comment on above: Performed By: #### I NFLUAB #### [facility] [address] [address] [address] Venkat Sloan Anion gap [Moles/Vol] 10.4 mmol/L Normal [facility] Comment on above: Performed By: #### I NFLUAB #### [facility] [address] [place] [address] Dr. Venkat Sloan AST [Catalytic activity/Vol] 11 U/L Critically low 15-37 [facility] Comment on above: Performed By: #### I NFLUAB #### [facility] [address] [place] [address] Dr. Venkat Sloan Bilirubin [Mass/Vol] 0.8 mg/dL Normal 0.2-1.0 [facility] [facility] Comment on above: Performed By: #### I NFLUAB #### [facility] [address] [place] [address] Dr. Venkat Sloan Calcium [Mass/Vol] 9.0 mg/dL Normal 8.5-10.1 [facility] Comment on above: Performed By: #### I NFLUAB #### [facility] [address] [place] [address] Dr. Venkat Sloan Chloride [Moles/Vol] 106 mmol/L Normal 98-107 [facility] Comment on above: Performed By: #### I NFLUAB #### [facility] [address] [address] [address] Venkat Sloan CO2 [Moles/Vol] 27.0 mmol/L Normal 21.0-32.0 [facility] Comment on above: Performed By: #### I NFLUAB #### [facility] [address] [place] [address] Dr. Venkat Sloan Creatinine [Mass/Vol] 0.70 mg/dL Normal 0.55-1.02 [facility] Comment on above: Performed By: #### I NFLUAB #### [facility] [address] [place] [address] Dr. Venkat Sloan EGFR-AF [place] >60 Normal >=60 [facility] Comment on above: Performed By: #### I NFLUAB #### [facility] [address] [address] [address] Venkat Sloan EGFR-NON AF [place] >60 Normal >=60 [facility] Comment on above: Performed By: #### I NFLUAB #### [facility] [address] [place] [address] Dr. Venkat Sloan Globulin (S) [Mass/Vol] 3.2 g/dL Normal T [facility] Comment on above: Performed By: #### I NFLUAB #### [facility] [address] [place] [address] Dr. Venkat Sloan Glucose [Mass/Vol] 92 mg/dL Normal 74-106 [facility] Comment on above: Performed By: #### I NFLUAB #### [facility] [address] [place] [address] Dr. Venkat Sloan Potassium [Moles/Vol] 4.4 mmol/L Normal 3.5-5.1 [facility] Comment on above: Performed By: #### I NFLUAB #### [facility] [address] [place] [address] Dr. Venkat Sloan Protein [Mass/Vol] 7.2 g/dL Normal 6.4-8.[address] [facility] Comment on above: Performed By: #### I NFLUAB #### [facility] [address] [place] [address] Dr. Venkat Sloan Sodium [Moles/Vol] 139 mmol/L Normal 136-145 [facility] Comment on above: Performed By: #### I NFLUAB #### [facility] [address] [place] [address] Dr. Venkat Sloan Urea nitrogen [Mass/Vol] 13.0 mg/dL Normal 7.0-18.0 [facility] Comment on above: Performed By: #### I NFLUAB #### [facility] [address] [place] [address] Dr. Venkat Sloan Urea nitrogen/Creatinine [Mass ratio] 18.6 mg/mg Normal [facility] Comment on above: Performed By: #### I NFLUAB #### [facility] [address] [place] [address] Dr. Venkat Sloan TSHon 09-26-2021 TSH 1.318 uIU/mL Normal 0.358-3.740 [facility] Comment on above: Performed By: #### P REGQNT #### [facility] [address] [place] [address] Dr. Venkat Sloan URIC ACID SERUMon 09-26-2021 Urate [Mass/Vol] 3.9 mg/dL Normal 2.6-6.0 [facility] Comment on above: Performed By: #### P REGQNT #### [facility] [address] [place] [address] Dr. Venkat Sloan XR CSPINE MIN 4 [...] [facility] PREG QUANT HCGon 08-17-2021 HCG QUANT <1 Normal [facility] Comment on above: Performed By: #### I NFLUAB #### [facility] [address] [place] [address] Dr. Venkat Sloan HCG RANGE SEE BELOW Normal [facility] Comment on above: Result Comment: 5-50 0-1 WEEK 40-300 1-2 WEEKS 100-1,000 2-3 WEEKS 500-6,000 3-4 WEEKS 5,000-200,000 1-2 MONTHS 10,000-100,000 2-3 MONTHS 3,000-50,000 2ND TRIMESTER 1,000-50,000 3RD TRIMESTER Performed By: #### I NFLUAB #### [facility] [address] [place] [address] Dr. Venkat Sloan US PELVIS AND TRANSVAGon [...] [facility] COVID Quick Testingon 2020 Result Negative [employer] Other Vital Signs Date Time Vital Sign Value Performing Clinician Facility 05-22-2023 09:0500 Body height 154.94 cm [facility] 05-22-2023 09:0500 Body mass index (BMI) [Ratio] 30.8 kg/m2 [facility] 05-22-2023 09:050 Body temperature 98.1 [degF] [facility] 05-22-2023 09:0500 Body weight 74.04 kg [facility] 05-22-2023 09:0500 Heart rate 78 /min [facility] 05-22-2023 09:27-0500 Respiratory rate 16 /min [facility] 05-22-2023 09:27-0500 SaO2% (BldA) [Mass fraction] 98 % [facility] 05-10-2023 15:14-0500 Body mass index (BMI) [Ratio] 30.04 kg/m2 [employer] Work Phone: [facility] 05-10-2023 15:14-0500 Body weight 72.12 kg Ricardo JenniferNMRKT Work Phone: [facility] 05-10-2023 15:14-0500 Diastolic blood pressure 70 mm[Hg] Ricardo Jennifer [employer] Work Phone: [facility] 05-10-2023 15:14-0500 Systolic blood pressure 110 mm[Hg] [employer] Work Phone: [facility] 01-27-2021 18:45-0400 Body height 154.94 cm Mohini Juan Other [employer] Other 01-27-2021 18:45-0400 Body mass index (BMI) [Ratio] 28.34 kg/m2 Mohini Juan Other [employer] Other 01-27-2021 18:45-0400 Body temperature 96.4 [degF] Mohini Juan Other [employer] Other 01-27-2021 18:45-0400 Body weight 68.04 kg Mohini Juan Other [employer] Other 01-27-2021 18:45-0400 Respiratory rate 18 /min Mohini Juan Other [employer] Other 01-27-2021 18:45-0400 SaO2% (BldA) [Mass fraction] 99 % Mohini Martinez Other [employer] Other 12-22-2020 11:45-0400 Body height 154.94 cm Dudley Larsluciano Other [employer] Other 12-22-2020 11:45-0400 Body mass index (BMI) [Ratio] 28.34 kg/m2 Dudley Larsluciano Other [employer] Other 12-22-2020 11:45-0400 Body weight 68.04 kg Dudley Larsluciano Other [employer] Other Encounters Encounter Date Encounter Type Care Provider Facility Start: 07-21-2023 End: 07-21-2023 ambulatory RICARDO JENNIFER Not Available Start: 07-14-2023 End: 07-14-2023 ambulatory RICARDO JENNIFER Not Available Start: 06-30-2023 End: 06-30-2023 ambulatory RICARDO JENNIFER Not Available Start: 06-13-2023 End: 06-13-2023 ambulatory RICARDO JENNIFER Not Available Start: 05-26-2023 End: 05-26-2023 ambulatory RICARDO JENNIFER Not Available Start: 05-22-2023 End: 05-22-2023 ambulatory [facility] Work Phone: Start: 05-22-2023 End: 05-22-2023 Patient encounter procedure [facility] Ur[facility] Care Chris Work [...] . [facility] Start: 07-08-2022 End: 07-08-[address] RICARDO [...] without abnormal findings DR IRON GARCIA . [facility] Start: 09-26-2021 End: 09-27-[address] [...] 01-27-2021 End: 01-27-2021 ambulatory Mohini Martinez Other [employer] Other Start: 01-27-2021 Office outpatient vi sit [...] AM EST Routine [facility] [address] [place] [address] Ricardo Rodriguez DO [address] [place] [address] [facility] Start: 05-10-2023 End: 05-10-2024 CBC panel - Blood by Automated count CBC Lab Routine Diabetes mellitus screening Expected: 05/10/2023 (Approximate), Expires: 05/10/2024 [facility] Work Phone: Comment on above: Expected: 05/10/2023 (Approximate), Expires: 05/10/2024 Start: 05-10-2023 End: 05-10-2024 Measurement of glucose 1 hour after glucose challenge for glucose tolerance test Glucose tolerance, 1 hour Lab Routine Diabetes mellitus screening Expected: 05/10/2023 (Approximate), Expires: 05/10/2024 [facility] Comment on above: Expected: 05/10/2023 (Approximate), Expires: 05/10/2024 Start: 11-26-2022 Influenza vaccination Influenz a Vaccine (#1) [facility] Immunizations Immunization Date Immunization Notes Care Provider Frankie munoz 01-25-2022 influenza virus vacc ine, unspecified formulation Ricardo Rodriguez DO Work Phone: [facility] Payers Date Payer Category Payer Unknown BCBS BCBS [id number] [id number] 2022-Present [phone] [address] [place] [address] [id number] 1993 Unknown [id number] 2.16.840.1.129014.3.579.2.593 1993 Unknown [id number] 2.16.840.1.172867.3.579.2.593 1993 Unknown [id number] 2.16.840.1.168960.3.579.2.593 1993 Unknown [id number] 2.16.840.1.588699.3.579.2.593 1993 Unknown [id number] 2.16.840.1.359099.3.579.2.593 1993 Unknown [id number] 2.16.840.1.003056.3.579.2.593 1993 Unknown [id number] 2.16.840.1.879557.3.579.2.593 1993 Unknown [id number] 2.16.840.1.659784.3.579.2.59 1993 Unknown [id number] 2.16.840.1.755973.3.579.2.593 1993 Unknown [id number] 2.16.840.1.333467.3.579.2.59 1993 Unknown [id number] 2.16.840.1.549173.3.579.2.593 1993 Unknown [id number] 2.16.840.1.065913.3.579.2.59 1993 Unknown [id number] 2.16.840.1.809696.3.579.2.593 1993 Unknown [id number] 2.16.840.1.047895.3.579.2.59 1993 Unknown [id number] 2.16.840.1.905905.3.579.2.59 1993 Unknown [id number] 2.16.840.1.643624.3.579.2.59 1993 Unknown [id number] 2.16.840.1.016260.3.579.2.59 1993 Unknown [id number] 2.16.840.1.641375.3.579.2.593 1993 Unknown [id number] 2.16.840.1.820223.3.579.2.593 1993 Unknown [id number] 2.16.840.1.716973.3.579.2.593 1993 Unknown [id number] 2.16.840.1.062529.3.579.2.593 1993 Unknown [id number] 2.16.840.1.619792.3.579.2.593 1993 Unknown [id number] 2.16.840.1.189287.3.579.2.593 1993 Unknown [id number] 2.16.840.1.580612.3.579.2.593 1993 Unknown [id number] 2.16.840.1.747002.3.579.2.593 1993 Unknown [id number] 2.16.840.1.691686.3.579.2.125 1993 Unknown [id number] 2.16.840.1.391847.3.579.2.125 1993 Unknown [id number] 2.16.840.1.837582.3.579.2.125 1993 Unknown [id number] 2.16.840.1.642428.3.579.2.9 1993 Unknown [id number] 2.16.840.1.466913.3.579.2.125 1993 Unknown [id number] 2.16.840.1.124469.3.579.2.125 1993 Unknown [id number] 2.16.840.1.836526.3.579.2.125 1993 Unknown [id number] 2.16.840.1.586832.3.579.2.125 1993 Unknown [id number] 2.16.840.1.591953.3.579.2.1259 1959 Unknown [id number] 1959 Unknown [id number] Self-pay Self Pay [id number] Unknown [id number] 2.16. 840.1.323636.19 Unknown [facility] [id number] Unknown [place] [employer]/[place] [id number] Social History Date Type Detail Facility Unknown if ever smoked [employer] Other Start: 01-28-2023 Sex Assigned At [employer] Other Start: 01-28-2023 End: 05-22-2023 Tobacco smoking [...] nursing note reviewed. Exam conducted with a insulation hoseman present. Vitals: Estimated body mass index is [...] Ricardo Rodriguez DO documented in this encounter [facility] Clinical Note 07-08-2022 Note Date & Type Note Facility 07-08-2022 Note OPERATIVE NOTE OPERATION DATE: 07/08/2022 PROCEDURE: Diagnostic laparoscopy with fulguration of ovarian endometrial implant. PREOPERATIVE DIAGNOSIS: Pelvic pain. POSTOPERATIVE DIAGNOSIS: Pelvic pain. ANESTHESIA: General. SURGEON: Ricardo Rodriguez D.O. PENCILS WASHER: DEVIN Miles URINE OUTPUT: Yellow and clear. [...] condition. [facility] Evaluation note 12-22-2020 Note Date & Type Note Facility 12-22-2020 Evaluation note Encounter Date Diagnosis Assessment Notes Nov, Irritable bowel syndrome with both constipation and diarrhea (ICD-10 - K58.2) LABS INDICATED ABOVE START TRIAL OF DICYCLOMINE 20 BID RTO 4 WEEKS [employer] Other Evaluation note Note Date & Type Note Facility Evaluation note [facility] [employer] Other Evaluation note Note Date & Type Note Facility Evaluation note Diagnosis Second trimester state, incidental Diabetes mellitus screening Screening for diabetes mellitus documented in this encounter [facility] Evaluation note Note Date & Type Note Facility Evaluation note No assessment information availa [facility] Work Phone: History general Narrative - Reported Note Date & Type Note Facility History general Narrative - Reported Type Medical History anxiety/depression Medical History IBS Surgical History TONSILLECTOMY [facility] [employer] Other History general Narrative - Reported Note Date & Type Note Facility History general Narrative - Reported [employer] Other Summary Purpose Family History No Family [...] and content) DATE CREATED AUTHOR 07/13/[address] 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 [employer] [facility] [facility]. provides no warranty or guarantee of the accuracy or completeness of information in this document.
[2023-07-28 19:11] VITALS: BP 124/74; PULSE 85
[2023-07-28 19:17] VITALS: BP 124/74; PULSE 85; TEMP 36.3
== END 2023-07-28 19:41 | disposition home or self-care (01) ==
LOC: FBCO 07:05 → FBC 19:04
PROVIDERS: PCP Family Medicine; Visit Provider Obstetrics & Gynecology
DX: O40.3XX0 Polyhydramnios, third trimester, not applicable or unspecified (principal)
CPT/HCPCS: 59025

== ENCOUNTER 2023-07-29 19:27 | Observation (INO) | payer BC, SELFPAY ==
--- OUTSIDE RECORDS SUMMARY | 2023-07-29 19:38 | XMS_ITS | CCD ---
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 Role Phone Lydia Dudley [...] Unavailable HOY ., DR PERDUE Consulting Unavailable STAPLES, DR DUDLEY Emanuel Consulting Unavailable JENNIFER ., [...] Unavailable Iron Garcia MD Primary Care Provider [phone] JENNIFER, RICARDO Attending Unavailable JENNIFER, RICARDO Attending Unavailable JENNIFER, RICARDO Attending Unavailable JENNIFER, RICARDO Attending Unavailable JENNIFER, RICARDO Attending Unavailable JENNIFER, RICARDO Attending Unavailable JENNIFER, RICARDO Attending Unavailable JENNIFER, RICARDO Attending Unavailable JENNIFER, RICARDO Attending Unavailable JENNIFER, RICARDO Attending Unavailable Medications Current Medications Medication Drug Class(es) Dates Sig (Normalized) Sig (Original) [id number] 200 actuat albuterol 0.09 mg/actuat metered dose [...] DAILY NEEDED FOR NAUSEA 0 02/19/2023 Active Wuylct03-Iagt Fum-Folic Ac-Om3 (One A Day Women's Dha) 28 mg iron- 800 mcg combo pack (1 source) Start: 05-22-2023 Lnqics26-Szbc Fum-Folic Ac-Om3 (One A Day Women's Dha) [...] other viral communicable diseases Onset: 01-27-2021 Resolved: 11-02-2021 Episodic Nausea and vomiting (2 sources) Nausea; [...] SARS-CoV-2 (COVID-19) RNA SHIRIN+probe Ql (Unsp spec) [facility] Urinalysis macro (dipstick) panel (U)on 05-10-2023 Bilirubin, UA Negative Negative - 4(70) +++ mg/dL [facility] Blood, UA Negative Negative - 50 Jayson/mcL [facility] Clarity, UA Clear [facility] Color, UA Yellow [facility] Glucose, UA Negative Negative - 1999(110) ++++ mg/dL [facility] Interpretation and review of laboratory results Abnormal [facility] Ketones, UA Positive Negative - 160(16) ++++ mg/dL [facility] Comment on above: trace Leukocytes, UA Trace Negative - 500+++ Lolita/mcL [facility] Nitrite, UA Negative Negative - Positive [facility] pH, UA 6.0 5 - 9 [facility] Protein, UA Negative Negative - 1999(20) ++++ mg/dL [facility] Spec Grav, UA 1.030 1 - 1.03 [facility] Urobilinogen, UA 0.2 0.2 - 12 mg/dL [facility] CBC AUTO DIFFon 07-08-2022 BASO # 0.0 103/ul Normal 0.0-0.1 [facility] Comment on above: Performed By: #### R F #### [facility] [address] [place] [address] Dr. Venkat Sloan Basophils/100 WBC (Bld) 0.5 % Normal 0.2-2.0 [facility] Comment on above: Performed By: #### R F #### [facility] [address] [place] [address] Dr. Venkat Sloan EO # 0.1 103/ul Normal 0.0-0.7 [facility] Comment on above: Performed By: #### R F #### [facility] [address] [place] [address] Dr. Venkat Sloan Eosinophils/100 WBC (Bld) 1.7 % Normal 0.9-7.0 [facility] Comment on above: Performed By: #### R F #### [facility] [address] [place] [address] Dr. Venkat Sloan Erythrocyte distribution width (RBC) [Ratio] 12.7 % Normal 11.0-15.0 [facility] Comment on above: Performed By: #### R F #### [facility] [address] [place] [address] Dr. Venkat Sloan Hematocrit (Bld) [Volume fraction] 40.4 % Normal 36.0-48.0 [facility] Comment on above: Performed By: #### R F #### [facility] [address] [place] [address] Dr. Venkat Sloan Hemoglobin (Bld) [Mass/Vol] 13.1 g/dL Normal 12.0-16.0 [facility] Comment on above: Performed By: #### R F #### [facility] [address] [place] [address] Dr. Venkat Sloan IG # 0.02 10e3/ul Normal 0.00-0.03 [facility] Comment on above: Performed By: #### R F #### [facility] [address] [place] [address] Dr. Venkat Sloan IG % 0.3 % Normal 0.0-0.5 [facility] Comment on above: Performed By: #### R F #### [facility] [address] [place] [address] Dr. Venkat Sloan LYMPH # 2.0 103/ul Normal 1.2-3.8 [facility] Comment on above: Performed By: #### R F #### [facility] [address] [place] [address] Dr. Venkat Sloan Lymphocytes/100 WBC (Bld) 26.2 % Normal 20.5-60.0 [facility] Comment on above: Performed By: #### R F #### [facility] [address] [place] [address] Dr. Venkat Sloan MANUAL DIFF REQ NO Normal [facility] Comment on above: Performed By: #### R F #### [facility] [address] [place] [address] Dr. Venkat Sloan MCH (RBC) [Entitic mass] 28.4 pg Normal 26.7-34.0 [facility] Comment on above: Performed By: #### R F #### [facility] [address] [place] [address] Dr. Venkat Sloan MCHC (RBC) [Mass/Vol] 32.4 g/dL Normal 29.9-35.2 [facility] Comment on above: Performed By: #### R F #### [facility] [address] [place] [address] Dr. Venkat Sloan MCV (RBC) [Entitic vol] 87.4 fL Normal 81.0-99.0 [facility] Comment on above: Performed By: #### R F #### [facility] [address] [place] [address] Dr. Venkat Sloan MONO # 0.7 103/ul Normal 0.3-0.8 [facility] Comment on above: Performed By: #### R F #### [facility] [address] [place] [address] Dr. Venkat Sloan Monocytes/100 WBC (Bld) 8.8 % Normal 1.7-12.0 [facility] Comment on above: Performed By: #### R F #### [facility] [address] [place] [address] Dr. Venkat Sloan NEUT # 4.8 103/ul Normal 1.4-6.5 [facility] Comment on above: Performed By: #### R F #### [facility] [address] [place] [address] Dr. Venkat Sloan Neutrophils/100 WBC (Bld) 62.5 % Normal 43.0-75.0 [facility] Comment on above: Performed By: #### R F #### [facility] [address] [place] [address] Dr. Venkat Sloan Platelet mean volume (Bld) [Entitic vol] 8.5 fL Critically low 9.5-13.5 [facility] Comment on above: Performed By: #### R F #### [facility] [address] [place] [address] Dr. Venkat Sloan PLT 331 103/ul Normal 150-450 [facility] Comment on above: Performed By: #### R F #### [facility] [address] [place] [address] Dr. Venkat Sloan RBC 4.62 106/ul Normal 4.20-5.40 [facility] Comment on above: Performed By: #### R F #### [facility] [address] [place] [address] Dr. Venkat Sloan WBC 7.7 103/ul Normal 4.0-11.0 [facility] Comment on above: Performed By: #### R F #### [facility] [address] [place] [address] Dr. Venkat Sloan PREG QUANT HCGon 07-08-2022 HCG QUANT <1 Normal [facility] Comment on above: Performed By: #### P REGQNT #### [facility] [address] [place] [address] Dr. Venkat Sloan HCG RANGE SEE BELOW Normal [facility] Comment on above: Result Comment: 5-50 0.2-1 WEEK 50-500 1-2 WEEKS 100-5,000 2-3 WEEKS 500-10,000 3-4 WEEKS 1,000-50,000 4-5 WEEKS 10,000-100,000 5-6 WEEKS 15,000-200,000 6-8 WEEKS 10,000-100,000 2-3 MONTHS Performed By: #### P REGQNT #### [facility] [address] [place] [address] Dr. Venkat Sloan PROGESTERONEon 06-23-2022 Progesterone 5.7 ng/mL Normal [facility] Comment on above: Result Comment: Foll icular phase 0.1 - 0.9 Luteal phase 1.8 - 23.9 Ovulation phase 0.1 - 12.0 First trimester 11.0 - 44.3 Second trimester 25.4 - 83.3 Third trimester 58.7 - 214.0 Postmenopausal 0.0 - 0.1 Performed By: #### T SH #### [facility] [address] [place] [address] Dr. Venkat Sloan PREG QUANT HCGon 05-31-2022 HCG QUANT 1 mIU/mL Normal [facility] Comment on above: Performed By: #### P REGQNT #### [facility] [address] [place] [address] Dr. Venkat Sloan HCG RANGE SEE BELOW Normal [facility] Comment on above: Result Comment: 5-50 0.2-1 WEEK 50-500 1-2 WEEKS 100-5,000 2-3 WEEKS 500-10,000 3-4 WEEKS 1,000-50,000 4-5 WEEKS 10,000-100,000 5-6 WEEKS 15,000-200,000 6-8 WEEKS 10,000-100,000 2-3 MONTHS Performed By: #### P REGQNT #### [facility] [address] [place] [address] Dr. Venkat Sloan PROGESTERONEon 05-21-2022 Progesterone 12.4 ng/mL Normal [facility] Comment on above: Result Comment: Foll icular phase 0.1 - 0.9 Luteal phase 1.8 - 23.9 Ovulation phase 0.1 - 12.0 First trimester 11.0 - 44.3 Second trimester 25.4 - 83.3 Third trimester 58.7 - 214.0 Postmenopausal 0.0 - 0.1 Performed By: #### I NFLUAB #### [facility] [address] [place] [address] Dr. Venkat Sloan MRI BRAIN WO W [...] LAM VELA Date: 2022-05-04 08:42 Normal [facility] PREG QUANT HCGon 05-04-2022 HCG QUANT <1 Normal [facility] Comment on above: Performed By: #### R F #### [facility] [address] [address] [address] Venkat Sloan HCG RANGE SEE BELOW Normal [facility] Comment on above: Result Comment: 5-50 0.2-1 WEEK 50-500 1-2 WEEKS 100-5,000 2-3 WEEKS 500-10,000 3-4 WEEKS 1,000-50,000 4-5 WEEKS 10,000-100,000 5-6 WEEKS 15,000-200,000 6-8 WEEKS 10,000-100,000 2-3 MONTHS Performed By: #### R F #### [facility] [address] [address] [address] Venkat Sloan XR HYSTEROSALPINGOGRAMon XR HYSTEROSALPINGOGRAM [...] by: LAM VELA Date: 2022-05-04 16:09 Normal [facility] PROGESTERONEon 04-24-2022 Progesterone 0.4 ng/mL Normal [facility] Comment on above: Result Comment: Foll icular phase 0.1 - 0.9 Luteal phase 1.8 - 23.9 Ovulation phase 0.1 - 12.0 First trimester 11.0 - 44.3 Second trimester 25.4 - 83.3 Third trimester 58.7 - 214.0 Postmenopausal 0.0 - 0.1 Performed By: #### I NFLUAB #### [facility] [address] [place] [address] Dr. Venkat Sloan CULTURE SPUTUMon 04-02-2022 CULTURE SPUTUM Culture Observations : NORMAL RESPIRATORY NATALEE. Normal [facility] Comment on above: Performed By: #### R F #### [facility] [address] [place] [address] Dr. Venkat Sloan SPUTUM GRAM STAINon 04-02-19 23 COMMENTS Normal [facility] Comment on above: Performed By: #### R F #### [facility] [address] [place] [address] Dr. Venkat Sloan DIPHTHEROIDS Normal [facility] Comment on above: Performed By: #### R F #### [facility] [address] [place] [address] Dr. Venkat Sloan EPITHELIALS <25 Normal [facility] Comment on above: Performed By: #### R F #### [facility] [address] [place] [address] Dr. Venkat Sloan FUNGAL ELEMENTS Normal [facility] Comment on above: Performed By: #### R F #### [facility] [address] [place] [address] Dr. Venkat Sloan GRAM NEG BACILLI RARE Normal [facility] Comment on above: Performed By: #### R F #### [facility] [address] [place] [address] Dr. Venkat Sloan GRAM NEG DIPPLOCOCCI Normal [facility] Comment on above: Performed By: #### R F #### [facility] [address] [place] [address] Dr. Venkat Sloan GRAM POS BACILLI Normal [facility] Comment on above: Performed By: #### R F #### [facility] [address] [place] [address] Dr. Venkat Sloan GRAM POSITIVE COCCI RARE Normal [facility] Comment on above: Performed By: #### R F #### [facility] [address] [place] [address] Dr. Venkat Sloan WBC (Bld) [#/Vol] 10*3/uL Normal [facility] Comment on above: Performed By: #### R F #### [facility] [address] [place] [address] Dr. Venkat Sloan Covid-19 PCR (CVDTB)on SARS-CoV-2 (COVID-19) RNA SHIRIN+probe Ql (Unsp spec) Not detected Normal NOT DETECTED [facility] Comment on above: Result Comment: This test is not yet approved or cleared by the [place] FDA. When there are no FDA-approved or cleared tests available, and other criteria are met, FDA can make tests available under an emergency access mechanism called an Emergency Use Authorization (EUA). The EUA for this test is supported by the [place] of Health and Human Service's (HHS's) declaration [...] SARS-CoV-2. Performed By: #### P REGQNT #### [facility] [address] [place] [address] Dr. Venkat Sloan [facility] Comment on above: Result Comment: Nega tive for Flu A protein angiten. Infection due to Flu A cannot be ruled out. Flu A angiten in the sample may be below the detection limit of the test. Performed By: #### I NFLUAB #### [facility] [address] [place] [address] Dr. Venkat Sloan INFLUBNEG SEE BELOW Normal [facility] Comment on above: Result Comment: Nega tive for Flu B protein antigen. Infection due to Flu B cannot be ruled out. Flu B antigen in the sample may be below the detection limit of the test. Performed By: #### I NFLUAB #### [facility] [address] [place] [address] Dr. Venkat Sloan INFLUENZA A AG Negative Normal NEGATIVE SEE COMMENT [facility] Comment on above: Performed By: #### I NFLUAB #### [facility] [address] [place] [address] Dr. Venkat Sloan INFLUENZA B AG Negative Normal NEGATIVE SEE COMMENT [facility] Comment on above: Performed By: #### I NFLUAB #### [facility] [address] [place] [address] Dr. Venkat Sloan XR CHEST 2 Von [...] [address] Date: 2022-03-24 12:33 Normal [facility]25 SARS-CoV-2 (COVID-19) RNA SHIRIN+probe Ql (Unsp spec) Not detected Normal NOT DETECTED [facility] Comment on above: Result Comment: [...] for this test is supported by the [place] of Health and Human Service's declaration that [...] used). Performed By: #### R F #### [facility] [address] [place] [address] Dr. Venkat Sloan INFLUENZA A AND B [facility] 03-15 [facility] SEE BELOW Normal [facility] Comment on above: Result Comment: Nega tive for Flu A protein angiten. Infection due to Flu A cannot be ruled out. Flu A angiten in the sample may be below the detection limit of the test. Performed By: #### I NFLUAB #### [facility] [address] [place] [address] Dr. Venkat [facility] Normal [facility] Comment on above: Result Comment: Nega tive for Flu B protein antigen. Infection due to Flu B cannot be ruled out. Flu B antigen in the sample may be below the detection limit of the test. Performed By: #### I NFLUAB #### [facility] [address] [place] [address] Dr. Venkat Sloan INFLUENZA A AG Negative Normal NEGATIVE SEE COMMENT [facility] Comment on above: Performed By: #### I NFLUAB #### [facility] [address] [place] [address] Dr. Venkat Sloan INFLUENZA B AG Negative Normal NEGATIVE SEE COMMENT [facility] Comment on above: Performed By: #### I NFLUAB #### [facility] [address] [place] [address] Dr. Venkat Sloan INTERNAL CONTROLS Within Normal Limits Normal Wi thin Normal Limits [facility] Comment on above: Performed By: #### I NFLUAB #### [facility] [address] [place] [address] Dr. Venkat Sloan Covid-19 PCR ([facility])on 02-25 SARS-CoV-2 (COVID-19) RNA SHIRIN+probe Ql (Unsp spec) Not detected Normal NOT DETECTED [facility] Comment on above: Result Comment: [...] for this test is supported by the [place] of Health and Human Service's declaration that [...] used). Performed By: #### I NFLUAB #### [facility] [address] [place] [address] Dr. Venkat Sloan INFLUENZA A AND B [facility] Normal [facility] Comment on above: Result Comment: Nega tive for Flu A protein angiten. Infection due to Flu A cannot be ruled out. Flu A angiten in the sample may be below the detection limit of the test. Performed By: #### I NFLUAB #### [facility] [address] [place] [address] Dr. Venkat S[facility] Normal [facility] Comment on above: Result Comment: Nega tive for Flu B protein antigen. Infection due to Flu B cannot be ruled out. Flu B antigen in the sample may be below the detection limit of the test. Performed By: #### I NFLUAB #### [facility] [address] [address] [address] Venkat Sloan INFLUENZA A AG Negative Normal NEGATIVE SEE COMMENT [facility] Comment on above: Performed By: #### I NFLUAB #### [facility] [address] [address] [address] Venkat Sloan INFLUENZA B AG Negative Normal NEGATIVE SEE COMMENT [facility] Comment on above: Performed By: #### I NFLUAB #### [facility] [address] [place] [address] Dr. Venkat Sloan INTERNAL CONTROLS Within Normal Limits Normal Wi thin Normal Limits [facility] Comment on above: Performed By: #### I NFLUAB #### [facility] [address] [place] [address] Dr. Venkat Sloan PROGESTERONEon 02-20-2022 Progesterone 0.3 ng/mL Normal [facility] Comment on above: Result Comment: Foll icular phase 0.1 - 0.9 Luteal phase 1.8 - 23.9 Ovulation phase 0.1 - 12.0 First trimester 11.0 - 44.3 Second trimester 25.4 - 83.3 Third trimester 58.7 - 214.0 Postmenopausal 0.0 - 0.1 Performed By: #### R F #### [facility] [address] [place] [address] Dr. Venkat Sloan ACTH STIMULATIONon 2 Andros Baseline 49 ng/dL Normal 41-262 [facility] Comment on above: Performed By: #### R F #### [facility] [address] [place] [address] Dr. Venkat Sloan Andros Stimulated 82 ng/dL Normal Not Estab. [facility] Comment on above: Performed By: #### R F #### [facility] [address] [place], [place] [id number] Dr. Venkat Sloan Covid-19 PCR ([facility]on 01-26 SARS-CoV-2 (COVID-19) RNA SHIRIN+probe Ql (Unsp spec) Not detected Normal NOT DETECTED [facility] Comment on above: Result Comment: This test is not yet approved or cleared by the [place] FDA. When there are no FDA-approved or cleared tests available, and other criteria are met, FDA can make tests available under an emergency access mechanism called an Emergency Use Authorization (EUA). The EUA for this test is supported by the [place] of Health and Human Service's (HHS's) declaration [...] SARS-CoV-2. Performed By: #### I NFLUAB #### [facility] [address] [place] [address] Dr. Venkat Sloan INFLUENZA A AND B [facility] 02-10 [facility] SEE BELOW Normal [facility] Comment on above: Result Comment: Nega tive for Flu A protein angiten. Infection due to Flu A cannot be ruled out. Flu A angiten in the sample may be below the detection limit of the test. Performed By: #### P REGQNT #### [facility] [address] [place] [address] Dr. Venkat Sloan [facility] Normal [facility] Comment on above: Result Comment: Nega tive for Flu B protein antigen. Infection due to Flu B cannot be ruled out. Flu B antigen in the sample may be below the detection limit of the test. Performed By: #### P REGQNT #### [facility] [address] [place] [address] Dr. Venkat Sloan INFLUENZA A AG Negative Normal NEGATIVE SEE COMMENT [facility] Comment on above: Performed By: #### P REGQNT #### [facility] [address] [place] [address] Dr. Venkat Sloan INFLUENZA B AG Negative Normal NEGATIVE SEE COMMENT [facility] Comment on above: Performed By: #### P REGQNT #### [facility] [address] [place], [place] [address] Dr. Venkat Sloan INTERNAL CONTROLS Within Normal Limits Normal Wi thin Normal Limits [facility] Comment on above: Performed By: #### P REGQNT #### [facility] [address] [place], [place] [address] Dr. Venkat Sloan DHEA SERUMon 01-19-2022 Dehydroepiandrosterone (DHEA) 82 ng/dL Normal -701 [facility] Comment on above: Result Comment: Age [...] 89 Performed By: #### T SH #### [facility] [address] [place] [address] Dr. Venkat Sloan DHEA-SULFATEon 01-14-2022 DHEA-Sulfate 34.0 ug/dL Critically low 84.8-378.0 [facility] Comment on above: Performed By: #### R F #### [facility] [address] [place] [address] Dr. Venkat Sloan FSHon 01-14-2022 FSH 2.2 mIU/mL Normal [facility] Comment on above: Result Comment: Adul t Female: Follicular phase 3.5 - 12.5 Ovulation phase 4.7 - 21.5 Luteal phase 1.7 - 7.7 Postmenopausal 25.8 - 134.8 Performed By: #### L BCFSH #### [facility] [address] [place] [address] Dr. Venkat Sloan LUTEINIZING HORMONE (LH)on LH 5.1 mIU/mL Normal [facility] Comment on above: Result Comment: Adul t Female: Follicular phase 2.4 - 12.6 Ovulation phase 14.0 - 95.6 Luteal phase 1.0 - 11.4 Postmenopausal 7.7 - 58.5 Performed By: #### I NFLUAB #### [facility] [address] [place] [address] Dr. Venkat Sloan PROLACTINon 01-14-2022 Prolactin 8.0 ng/mL Normal 4.8-23.3 [facility] Comment on above: Performed By: #### P ROLAC #### [facility] [address] [place] [address] Dr. Venkat Sloan CBC AUTO DIFFon 01-13-2022 BASO # 0.0 103/ul Normal 0.0-0.1 [facility] Comment on above: Performed By: #### T SH #### [facility] [address] [place] [address] Dr. Venkat Sloan Basophils/100 WBC (Bld) 0.4 % Normal 0.2-2.0 [facility] Comment on above: Performed By: #### T SH #### [facility] [address] [place] [address] Dr. Venkat Sloan EO # 0.1 103/ul Normal 0.0-0.7 [facility] Comment on above: Performed By: #### T SH #### [facility] [address] [place] [address] Dr. Venkat Sloan Eosinophils/100 WBC (Bld) 1.2 % Normal 0.9-7.0 [facility] Comment on above: Performed By: #### T SH #### [facility] [address] [place] [address] Dr. Venkat Sloan Erythrocyte distribution width (RBC) [Ratio] 12.7 % Normal 11.0-15.0 [facility] Comment on above: Performed By: #### T SH #### [facility] [address] [place] [address] Dr. Venkat Sloan Hematocrit (Bld) [Volume fraction] 41.1 % Normal 36.0-48.0 [facility] Comment on above: Performed By: #### T SH #### [facility] [address] [place] [address] Dr. Venkat Sloan Hemoglobin (Bld) [Mass/Vol] 13.1 g/dL Normal 12.0-16.0 [facility] Comment on above: Performed By: #### T SH #### [facility] [address] [place] [address] Dr. Venkat Sloan IG # 0.03 10e3/ul Normal 0.00-0.03 [facility] Comment on above: Performed By: #### T SH #### [facility] [address] [place] [address] Dr. Venkat Sloan IG % 0.3 % Normal 0.0-0.5 [facility] Comment on above: Performed By: #### T SH #### [facility] [address] [place] [address] Dr. Venkat Sloan LYMPH # 1.6 103/ul Normal 1.2-3.8 [facility] Comment on above: Performed By: #### T SH #### [facility] [address] [place] [address] Dr. Venkat Sloan Lymphocytes/100 WBC (Bld) 15.0 % Critically low 20.5-60.0 [facility] Comment on above: Performed By: #### T SH #### [facility] [address] [place] [address] Dr. Venkat Sloan MANUAL DIFF REQ NO Normal [facility] Comment on above: Performed By: #### T SH #### [facility] [address] [place] [address] Dr. Venkat Sloan MCH (RBC) [Entitic mass] 28.5 pg Normal 26.7-34.0 [facility] Comment on above: Performed By: #### T SH #### [facility] [address] [place] [address] Dr. Venkat Sloan MCHC (RBC) [Mass/Vol] 31.9 g/dL Normal 29.9-35.2 [facility] Comment on above: Performed By: #### T SH #### [facility] [address] [place] [address] Dr. Venkat Sloan MCV (RBC) [Entitic vol] 89.3 fL Normal 81.0-99.0 [facility] Comment on above: Performed By: #### T SH #### [facility] [address] [place] [address] Dr. Venkat Sloan MONO # 0.9 103/ul Critically high 0.3-0.8 [facility] Comment on above: Performed By: #### T SH #### [facility] [address] [address] [address] Venkat Sloan Monocytes/100 WBC (Bld) 8.8 % Normal 1.7-12.0 [facility] Comment on above: Performed By: #### T SH #### [facility] [address] [address] [address] Venkat Sloan NEUT # 7.9 103/ul Critically high 1.4-6.5 [facility] Comment on above: Performed By: #### T SH #### [facility] [address] [place] [address] Dr. Venkat Sloan Neutrophils/100 WBC (Bld) 74.3 % Normal 43.0-75.0 [facility] Comment on above: Performed By: #### T SH #### [facility] [address] [address] [address] Venkat Sloan Platelet mean volume (Bld) [Entitic vol] 9.2 fL Critically low 9.5-13.5 [facility] Comment on above: Performed By: #### T SH #### [facility] [address] [place] [address] Dr. Venkat Sloan PLT 300 103/ul Normal 150-450 [facility] Comment on above: Performed By: #### T SH #### [facility] [address] [address] [address] Venkat Sloan RBC 4.60 106/ul Normal 4.20-5.40 [facility] Comment on above: Performed By: #### T SH #### [facility] [address] [address] [address] Venkat Sloan WBC 10.7 103/ul Normal 4.0-11.0 [facility] Comment on above: Performed By: #### T SH #### [facility] [address] [address] [address] Venkat Sloan GLYCOHEMOGLOBIN A1Con 2021 ADA RECOMMENDATION SEE BELOW Normal [facility] Comment on above: Result Comment: ADA RECOMMENDED LIMIT 4.0 - 6.0 ADA THERAPEUTIC TARGET < 7.0 ACTION SUGGESTED > 7.0 Performed By: #### P REGQNT #### [facility] [address] [place] [address] Dr. Venkat Sloan Glucose [Mass/Vol] 100 mg/dL Normal [facility] Comment on above: Performed By: #### P REGQNT #### [facility] [address] [address] [address] Venkat Sloan HbA1c (Bld) [Mass fraction] 5.1 % Normal 4.5-6.2 [facility] Comment on above: Performed By: #### P REGQNT #### [facility] [address] [place] [address] Dr. Venkat Sloan TSHon 01-13-2022 TSH 1.098 uIU/mL Normal 0.358-3.740 [facility] Comment on above: Performed By: #### T SH #### [facility] [address] [place] [address] Dr. Venkat Sloan Covid-19 PCR ([facility])on 12-26 SARS-CoV-2 (COVID-19) RNA SHIRIN+probe Ql (Unsp spec) Not detected Normal NOT DETECTED [facility] Comment on above: Result Comment: This test is not yet approved or cleared by the [place] FDA. When there are no FDA-approved or cleared tests available, and other criteria are met, FDA can make tests available under an emergency access mechanism called an Emergency Use Authorization (EUA). The EUA for this test is supported by the [place] of Health and Human Service's (HHS's) declaration [...] SARS-CoV-2. Performed By: #### I NFLUAB #### [facility] [address] [place] [address] Dr. Venkat Sloan PREG QUANT HCGon 12-24-2021 HCG QUANT <1 Normal [facility] Comment on above: Performed By: #### P REGQNT #### [facility] [address] [place] [address] Dr. Venkat Sloan HCG RANGE SEE BELOW Normal [facility] Comment on above: Result Comment: 5-50 0.2-1 WEEK 50-500 1-2 WEEKS 100-5,000 2-3 WEEKS 500-10,000 3-4 WEEKS 1,000-50,000 4-5 WEEKS 10,000-100,000 5-6 WEEKS 15,000-200,000 6-8 WEEKS 10,000-100,000 2-3 MONTHS Performed By: #### P REGQNT #### [facility] [address] [place] [address] Dr. Venkat Sloan HCG-BETA SUBUNIT QUANTon hCG,Beta Subunit,Qnt,Serum <1 Normal [facility] Comment on above: Result Comment: Fema le (Non-) 0 - 5 (Postmenopausal) 0 - 8 . Female () Weeks of Gestation 3 6 - 71 4 10 - 750 5 217 - 7138 6 158 - 38367 7 [phone] 8 14816 -[phone] 9 [phone] -[phone] 10 [phone] -[phone] 12 37944 -311165 14 30616 - 97667 15 68163 - 50980 16 7767 - 42615 17 9514 - 37928 18 6412 - [phone] Aj ECLIA methodology Performed By: #### T SH #### [facility] [address] [place] [address] Dr. Venkat Sloan BRETT by IFAon 09-29-2021 Antinuclear Antibodies, IFA Negative Normal [facility] Comment on above: Result Comment: Nega tive <1:80 Borderline 1:80 Positive >1:80 ICAP nomenclature: AC-0 For more information about Hep-2 cell patterns use ANApatterns.org, the official website for the International Consensus on Antinuclear Antibody (BRETT) Patterns (ICAP). Performed By: #### A NAIFA #### [facility] [address] [place] [address] Dr. Venkat Sloan INSULINon 09-29-2021 Insulin 11.1 uIU/mL Normal 2.6-24.9 [facility] Comment on above: Performed By: #### T SH #### [facility] [address] [place] [address] Dr. Venkat Sloan ANTISTREPTOLYSIN O AB (ASO)o n 09-27-2021 Antistreptolysin O Ab <20.0 Normal 0.0-200.0 [facility] Comment on above: Performed By: #### P REGQNT #### [facility] [address] [place] [address] Dr. Venkat Sloan RHEUMATOID FACTORon 09-28-19 22 RA Latex Turbid. <10.0 Normal <14.0 [facility] Comment on above: Performed By: #### R F #### [facility] [address] [place] [address] Dr. Venkat Sloan CBC AUTO DIFFon 09-26-2021 BASO # 0.0 103/ul Normal 0.0-0.1 [facility] Comment on above: Performed By: #### T SH #### [facility] [address] [place] [address] Dr. Venkat Sloan Basophils/100 WBC (Bld) 0.3 % Normal 0.2-2.0 [facility] Comment on above: Performed By: #### T SH #### [facility] [address] [place] [address] Dr. Venkat Sloan EO # 0.1 103/ul Normal 0.0-0.7 [facility] Comment on above: Performed By: #### T SH #### [facility] [address] [place] [address] Dr. Venkat Sloan Eosinophils/100 WBC (Bld) 1.8 % Normal 0.9-7.0 [facility] Comment on above: Performed By: #### T SH #### [facility] [address] [place] [address] Dr. Venkat Sloan Erythrocyte distribution width (RBC) [Ratio] 12.9 % Normal 11.0-15.0 [facility] Comment on above: Performed By: #### T SH #### [facility] [address] [place] [address] Dr. Venkat Sloan Hematocrit (Bld) [Volume fraction] 39.8 % Normal 36.0-48.0 [facility] Comment on above: Performed By: #### T SH #### [facility] [address] [place] [address] Dr. Venkat Sloan Hemoglobin (Bld) [Mass/Vol] 12.7 g/dL Normal 12.0-16.0 [facility] Comment on above: Performed By: #### T SH #### [facility] [address] [place] [address] Dr. Venkat Sloan IG # 0.02 10e3/ul Normal 0.00-0.03 [facility] Comment on above: Performed By: #### T SH #### [facility] [address] [place] [address] Dr. Venkat Sloan IG % 0.3 % Normal 0.0-0.5 [facility] Comment on above: Performed By: #### T SH #### [facility] [address] [place] [address] Dr. Venkat Sloan LYMPH # 1.5 103/ul Normal 1.2-3.8 [facility] Comment on above: Performed By: #### T SH #### [facility] [address] [place] [address] Dr. Venkat Sloan Lymphocytes/100 WBC (Bld) 21.5 % Normal 20.5-60.0 [facility] Comment on above: Performed By: #### T SH #### [facility] [address] [place] [address] Dr. Venkat Sloan MANUAL DIFF REQ NO Normal [facility] Comment on above: Performed By: #### T SH #### [facility] [address] [place] [address] Dr. Venkat Sloan MCH (RBC) [Entitic mass] 28.5 pg Normal 26.7-34.0 [facility] Comment on above: Performed By: #### T SH #### [facility] [address] [place] [address] Dr. Venkat Sloan MCHC (RBC) [Mass/Vol] 31.9 g/dL Normal 29.9-35.2 [facility] Comment on above: Performed By: #### T SH #### [facility] [address] [place] [address] Dr. Venkat Sloan MCV (RBC) [Entitic vol] 89.2 fL Normal 81.0-99.0 [facility] Comment on above: Performed By: #### T SH #### [facility] [address] [place] [address] Dr. Venkat Sloan MONO # 0.5 103/ul Normal 0.3-0.8 [facility] Comment on above: Performed By: #### T SH #### [facility] [address] [place] [address] Dr. Venkat Sloan Monocytes/100 WBC (Bld) 7.6 % Normal 1.7-12.0 [facility] Comment on above: Performed By: #### T SH #### [facility] [address] [place] [address] Dr. Venkat Sloan NEUT # 4.9 103/ul Normal 1.4-6.5 [facility] Comment on above: Performed By: #### T SH #### [facility] [address] [place] [address] Dr. Venkat Sloan Neutrophils/100 WBC (Bld) 68.5 % Normal 43.0-75.0 [facility] Comment on above: Performed By: #### T SH #### [facility] [address] [place] [address] Dr. Venkat Sloan Platelet mean volume (Bld) [Entitic vol] 8.8 fL Critically low 9.5-13.5 [facility] Comment on above: Performed By: #### T SH #### [facility] [address] [address] [address] Venkat Sloan PLT 297 103/ul Normal 150-450 [facility] Comment on above: Performed By: #### T SH #### [facility] [address] [address] [address] Venkat Sloan RBC 4.46 106/ul Normal 4.20-5.40 [facility] Comment on above: Performed By: #### T SH #### [facility] [address] [address] [address] Venkat Sloan WBC 7.1 103/ul Normal 4.0-11.0 [facility] Comment on above: Performed By: #### T SH #### [facility] [address] [place] [address] Dr. Venkat Sloan CRPon 09-26-2021 CRP [Mass/Vol] mg/L Normal <=1.[address] [facility] Comment on above: Performed By: #### P REGQNT #### [facility] [address] [place] [address] Dr. Venkat Sloan FREE THYROXINE INDEX T7on FTI 2.71 Normal 1.30-4.50 [facility] Comment on above: Performed By: #### P REGQNT #### [facility] [address] [place] [address] Dr. Venkat Sloan T3U 33.0 % Normal 30.0-39.0 [facility] Comment on above: Performed By: #### P REGQNT #### [facility] [address] [place] [address] Dr. Venkat Sloan T4 [Mass/Vol] 8.20 ug/dL Normal 4.80-13.90 [facility] Comment on above: Performed By: #### P REGQNT #### [facility] [address] [place] [address] Dr. Venkat Sloan GLYCOHEMOGLOBIN A1Con 2021 ADA RECOMMENDATION SEE BELOW Normal [facility] Comment on above: Result Comment: ADA RECOMMENDED LIMIT 4.0 - 6.0 ADA THERAPEUTIC TARGET < 7.0 ACTION SUGGESTED > 7.0 Performed By: #### I NFLUAB #### [facility] [address] [place] [address] Dr. Venkat Sloan Glucose [Mass/Vol] 105 mg/dL Normal [facility] Comment on above: Performed By: #### I NFLUAB #### [facility] [address] [address] [address] Venkat Sloan HbA1c (Bld) [Mass fraction] 5.3 % Normal 4.5-6.2 [facility] Comment on above: Performed By: #### I NFLUAB #### [facility] [address] [place] [address] Dr. Venkat Sloan IRONon 09-26-2021 Iron [Mass/Vol] 49.0 ug/dL Critically low 50.0-170.0 [facility] Comment on above: Performed By: #### P REGQNT #### [facility] [address] [place] [address] Dr. Venkat Sloan LIPID PROFILEon 09-26-2021 CHOL-HDL RATIO NORM SEE BELOW Normal [facility] Comment on above: Result Comment: 3.3 - 4.4 LOW RISK 4.4 - 7.1 AVERAGE RISK 7.1 - 11.0 MODERATE RISK >11.0 HIGH RISK Performed By: #### P REGQNT #### [facility] [address] [place] [address] Dr. Venkat Sloan Cholesterol [Mass/Vol] 197 mg/dL Normal <=200 [facility] Comment on above: Performed By: #### P REGQNT #### [facility] [address] [place] [address] Dr. Venkat Sloan Cholesterol in HDL [Mass/Vol] 64 mg/dL Critically high 40-60 [facility] Comment on above: Performed By: #### P REGQNT #### [facility] [address] [place] [address] Dr. Venkat Sloan Cholesterol in LDL [Mass/Vol] 123.4 mg/dL Normal [facility] Comment on above: Performed By: #### P REGQNT #### [facility] [address] [address] [address] Venkat Sloan Cholesterol.total/Choles terol in HDL [Mass ratio] 3.1 {ratio} Normal [facility] Comment on above: Performed By: #### P REGQNT #### [facility] [address] [address] [address] Venkat Sloan HDL NORMAL > or = 60 mg/dl - LO W CARDIOVASCULAR RISK <40 mg/dl - HIGH CARDIOVASCULAR RISK Normal [facility] Comment on above: Performed By: #### P REGQNT #### [facility] [address] [address] [address] Venkat Sloan LDL CALC NORMAL SEE BELOW Normal [facility] Comment on above: Result Comment: <100 mg/dl OPTIMAL 100 - 129 mg/dl NEAR OR ABOVE OPTIMAL 130 - 159 mg/dl BORDERLINE HIGH 160 - 189 mg/dl HIGH >190 mg/dl VERY HIGH Performed By: #### P REGQNT #### [facility] [address] [place] [address] Dr. Venkat Sloan Triglyceride [Mass/Vol] 48 mg/dL Normal <=150 [facility] Comment on above: Performed By: #### P REGQNT #### [facility] [address] [place] [address] Dr. Venkat Sloan VLDL CALC 9.6 mg/dL Normal [facility] Comment on above: Performed By: #### P REGQNT #### [facility] [address] [place] [address] Dr. Venkat Sloan PROF 14(COMP METB)on 022 Albumin [Mass/Vol] 4.0 g/dL Normal 3.4-5.0 [facility] Comment on above: Performed By: #### I NFLUAB #### [facility] [address] [place] [address] Dr. Venkat Sloan Albumin/Globulin [Mass ratio] 1.3 {ratio} Normal [facility] Comment on above: Performed By: #### I NFLUAB #### [facility] [address] [address] [address] Venkat Sloan ALP [Catalytic activity/Vol] 58 U/L Normal 46-116 [facility] Comment on above: Performed By: #### I NFLUAB #### [facility] [address] [place] [address] Dr. Venkat Sloan ALT [Catalytic activity/Vol] 20 U/L Normal 14-59 [facility] Comment on above: Performed By: #### I NFLUAB #### [facility] [address] [address] [address] Venkat Sloan Anion gap [Moles/Vol] 10.4 mmol/L Normal [facility] Comment on above: Performed By: #### I NFLUAB #### [facility] [address] [place] [address] Dr. Vnekat Sloan AST [Catalytic activity/Vol] 11 U/L Critically low 15-37 [facility] Comment on above: Performed By: #### I NFLUAB #### [facility] [address] [place] [address] Dr. Venkat Sloan Bilirubin [Mass/Vol] 0.8 mg/dL Normal 0.2-1.0 [facility] Comment on above: Performed By: #### I NFLUAB #### [facility] [address] [place] [address] Dr. Venkat Sloan Calcium [Mass/Vol] 9.0 mg/dL Normal 8.5-10.1 [facility] Comment on above: Performed By: #### I NFLUAB #### [facility] [address] [place] [address] Dr. Venkat Sloan Chloride [Moles/Vol] 106 mmol/L Normal 98-107 [facility] Comment on above: Performed By: #### I NFLUAB #### [facility] [address] [address] [address] Venkat Sloan CO2 [Moles/Vol] 27.0 mmol/L Normal 21.0-32.0 [facility] Comment on above: Performed By: #### I NFLUAB #### [facility] [address] [place] [address] Dr. Venkat Sloan Creatinine [Mass/Vol] 0.70 mg/dL Normal 0.55-1.02 [facility] Comment on above: Performed By: #### I NFLUAB #### [facility] [address] [place] [address] Dr. Venkat Sloan EGFR-AF ANGUILLAN >60 Normal >=[address] [facility] Comment on above: Performed By: #### I NFLUAB #### [facility] [address] [place] [address] Dr. Venkat Sloan EGFR-NON AF ANGUILLAN >60 Normal >=60 [facility] Comment on above: Performed By: #### I NFLUAB #### [facility] [address] [place] [address] Dr. Venkat Sloan Globulin (S) [Mass/Vol] 3.2 g/dL Normal T [facility] Comment on above: Performed By: #### I NFLUAB #### [facility] [address] [place] [address] Dr. Veknat Sloan Glucose [Mass/Vol] 92 mg/dL Normal 74-106 [facility] Comment on above: Performed By: #### I NFLUAB #### [facility] [address] [place] [address] Dr. Venkat lSoan Potassium [Moles/Vol] 4.4 mmol/L Normal 3.5-5.1 [facility] Comment on above: Performed By: #### I NFLUAB #### [facility] [address] [place] [address] Dr. Venkat Sloan Protein [Mass/Vol] 7.2 g/dL Normal 6.4-8.2 [facility] Comment on above: Performed By: #### I NFLUAB #### [facility] [address] [place] [address] Dr. Venkat Sloan Sodium [Moles/Vol] 139 mmol/L Normal 136-145 [facility] Comment on above: Performed By: #### I NFLUAB #### [facility] [address] [place] [address] Dr. Venkat Sloan Urea nitrogen [Mass/Vol] 13.0 mg/dL Normal 7.0-18.0 [facility] Comment on above: Performed By: #### I NFLUAB #### [facility] [address] [address] [address] Venkat Sloan Urea nitrogen/Creatinine [Mass ratio] 18.6 mg/mg Normal [facility] Comment on above: Performed By: #### I NFLUAB #### [facility] [address] [address] [address] Venkat Sloan TSHon 09-26-2021 TSH 1.318 uIU/mL Normal 0.358-3.740 [facility] Comment on above: Performed By: #### P REGQNT #### [facility] [address] [place] [address] Dr. Venkat Sloan URIC ACID SERUMon 09-26-2021 Urate [Mass/Vol] 3.9 mg/dL Normal 2.6-6.0 [facility] Comment on above: Performed By: #### P REGQNT #### [facility] [address] [place] [address] Dr. Venkat Sloan XR CSPINE MIN 4 [...] DUDLEY HERNÁNDEZ Date: 2021-09-24 21:16 Normal [facility] PREG QUANT HCGon 08-17-2021 HCG QUANT <1 Normal [facility] Comment on above: Performed By: #### I NFLUAB #### [facility] [address] [place] [address] Dr. Venkat Sloan HCG RANGE SEE BELOW Normal [facility] Comment on above: Result Comment: 5-50 0-1 WEEK 40-300 1-2 WEEKS 100-1,000 2-3 WEEKS 500-6,000 3-4 WEEKS 5,000-200,000 1-2 MONTHS 10,000-100,000 2-3 MONTHS 3,000-50,000 2ND TRIMESTER 1,000-50,000 3RD TRIMESTER Performed By: #### I NFLUAB #### [facility] [address] [place] [address] Dr. Venkat Slaon US PELVIS AND TRANSVAGon US PELVIS AND [...] DUDLEY HERNÁNDEZ Date: 2021-08-17 07:01 Normal [facility] COVID Quick Testingon 2020 Result Negative [employer] Other Vital Signs Date Time Vital Sign Value Performing Clinician Facility 05-22-2023 09:0500 Body height 154.94 cm [facility] 05-22-2023 09:27-0500 Body mass index (BMI) [Ratio] 30.8 kg/m2 [facility] 05-22-2023 09:27050 Body temperature 98.1 [degF] [facility] 05-22-2023 09:270500 Body weight 74.04 kg [facility] 05-22-2023 09:27-0500 Heart rate 78 /min [facility] 05-22-2023 09:27-0500 Respiratory rate 16 /min [facility] 05-22-2023 09:27-0500 SaO2% (BldA) [Mass fraction] 98 % [facility] 05-10-2023 15:14-0500 Body mass index (BMI) [Ratio] 30.04 kg/m2 Ricardo Jennifer DO Work Phone: [facility] 05-10-2023 15:14-0500 Body weight 72.12 kg Ricardo Jennifer DO Work Phone: [facility] 05-10-2023 15:14-0500 Diastolic blood pressure 70 mm[Hg] Ricardo Jennifer DO Work Phone: [facility] 05-10-2023 15:14-0500 Systolic blood pressure 110 mm[Hg] [employer] Work Phone: [facility] 01-27-2021 18:45-0400 Body height 154.94 cm Mohini Martinez Other [employer] Other 01-27-2021 18:45-0400 Body mass index (BMI) [Ratio] 28.34 kg/m2 Mohini Buttault Other [employer] Other 01-27-2021 18:45-0400 Body temperature 96.4 [degF] Mohini Juan Other [employer] Other 01-27-2021 18:45-0400 Body weight 68.04 kg Mohini Buttault Other [employer] Other 01-27-2021 18:45-0400 Respiratory rate 18 /min Mohini Buttault Other [employer] Other 01-27-2021 18:45-0400 SaO2% (BldA) [Mass fraction] 99 % Mohini Martinez Other [employer] Other 12-22-2020 11:45-0400 Body height 154.94 cm Dudley Freeman Other [employer] Other 12-22-2020 11:45-0400 Body mass index (BMI) [Ratio] 28.34 kg/m2 Dudley Freeman Other [employer] Other 12-22-2020 11:45-0400 Body weight 68.04 kg Dudley Freeman Other [employer] Other Encounters Encounter Date Encounter Type Care Provider Facility Start: 07-28-2023 End: 07-28-2023 ambulatory RICARDO JENNIFER Not Available Start: 07-21-2023 End: 07-21-2023 ambulatory RICARDO JENNIFER Not Available Start: 07-14-2023 End: 07-14-2023 ambulatory RICARDO JENNIFER Not Available Start: 06-30-2023 End: 06-30-2023 ambulatory RICARDO JENNIFER Not Available Start: 06-13-2023 End: 06-13-2023 ambulatory RICARDO JENNIFER Not Available Start: 05-26-2023 End: 05-26-2023 ambulatory RICARDO JENNIFER Not Available Start: 05-22-2023 End: 05-22-2023 ambulatory [facility] Work Phone: Start: 05-22-2023 End: 05-22-2023 Patient encounter procedure [facility] Work Phone: Start: [...] other preprocedural examination DR RICARDO RODRIGUEZ . [facility] Start: 07-08-2022 End: 07-08-[address] RICARDO RODRIGUEZ . Facility:[facility] Start: 06-30-2022 End: 07-01-[address] RICARDO RODRIGUEZ . Facility:[facility] Start: 06-30-2022 End: 07-01-2022 Encounter for other preprocedural examination DR RICARDO RODRIGUEZ . Facility:[facility] Start: 06-21-2022 End: 06-22-[address] RICARDO RODRIGUEZ . Facility:[facility] Start: 05-31-2022 End: 06-01-[address] IORN GARCIA . Facility:[facility] Start: 05-20-2022 End: 05-21-2022 [...] abnormal findings DR IRON GARCIA . [facility] Start: 09-26-2021 End: 09-27-2021 ambulatory [...] 01-27-2021 End: 01-27-2021 ambulatory Mohini Martinez Other [employer] Other Start: 01-27-2021 Office outpatient vi sit [...] AM EST Routine [facility] [address] [place] [id number] Ricardo Rodriguez, DO [address] [place] [address] [facility] Start: 05-10-2023 End: 05-10-2024 CBC panel - Blood by Automated count CBC Lab Routine Diabetes mellitus screening Expected: 05/10/2023 (Approximate), Expires: 05/10/2024 [facility] Work Phone: Comment on above: Expected: 05/10/2023 (Approximate), Expires: 05/10/2024 Start: 05-10-2023 End: 05-10-2024 Measurement of glucose 1 hour after glucose challenge for glucose tolerance test Glucose tolerance, 1 hour Lab Routine Diabetes mellitus screening Expected: 05/10/2023 (Approximate), Expires: 05/10/2024 [facility] Comment on above: Expected: 05/10/2023 (Approximate), Expires: 05/10/2024 Start: 11-26-2022 Influenza vaccination Influenz a Vaccine (#1) [facility] Immunizations Immunization Date Immunization Notes [facility]2022 influenza virus vacc ine, unspecified formulation Ricardo Rodriguez DO Work Phone: [facility] Healthcare Payers Date Payer Category Payer Unknown BCBS BCBS xxxxxx [id number] 2022-Present [phone] [address] [place] [address] [id number] 1993 Unknown [id number] 2.16.840.1.929949.3.579.2.593 1993 Unknown [id number] 2.16.840.1.877204.3.579.2.593 1993 Unknown [id number] 2.16.840.1.603505.3.579.2.593 1993 Unknown [id number] 2.16.840.1.669822.3.579.2.593 1993 Unknown [id number] 2.16.840.1.309909.3.579.2.593 1993 Unknown [id number] 2.16.840.1.823089.3.579.2.59 1993 Unknown [id number] 2.16.840.1.902110.3.579.2.593 1993 Unknown [id number] 2.16.840.1.868849.3.579.2.593 1993 Unknown [id number] 2.16.840.1.135545.3.579.2.59 1993 Unknown [id number] 2.16.840.1.597835.3.579.2.593 1993 Unknown [id number] 2.16.840.1.301320.3.579.2.59 1993 Unknown [id number] 2.16.840.1.081036.3.579.2.593 1993 Unknown [id number] 2.16.840.1.537466.3.579.2.59 1993 Unknown [id number] 2.16.840.1.487581.3.579.2.59 1993 Unknown [id number] 2.16.840.1.769282.3.579.2.593 1993 Unknown [id number] 2.16.840.1.885270.3.579.2.59 1993 Unknown [id number] 2.16.840.1.792082.3.579.2.593 1993 Unknown [id number] 2.16.840.1.252255.3.579.2.593 1993 Unknown [id number] 2.16.840.1.778132.3.579.2.593 1993 Unknown [id number] 2.16.840.1.394244.3.579.2.593 1993 Unknown [id number] 2.16.840.1.062671.3.579.2.593 1993 Unknown [id number] 2.16.840.1.432905.3.579.2.593 1993 Unknown [id number] 2.16.840.1.914618.3.579.2.59 1993 Unknown [id number] 2.16.840.1.226115.3.579.2.593 1993 Unknown [id number] 2.16.840.1.766744.3.579.2.59 1993 Unknown [id number] 2.16.840.1.171535.3.579.2.125 1993 Unknown [id number] 2.16.840.1.098691.3.579.2.1258 1993 Unknown [id number] 2.16.840.1.101471.3.579.2.1258 1993 Unknown [id number] 2.16.840.1.887035.3.579.2.1258 1993 Unknown [id number] 2.16.840.1.248337.3.579.2.125 1993 Unknown [id number] 2.16.840.1.531056.3.579.2.1258 1993 Unknown [id number] 2.16.840.1.147295.3.579.2.1258 1993 Unknown [id number] 2.16.840.1.272633.3.579.2.1258 1993 Unknown [id number] 2.16.840.1.495987.3.579.2.1259 1993 Unknown [id number] 2.16.840.1.260793.3.579.2.1259 1959 Unknown [id number] 1959 Unknown [id number] Self-pay Self Pay [id number] Unknown [id number] 2.16. 840.1.159223.19 Unknown O [id number] Unknown [place] BC/BS [id number] Social History Date Type Detail Facility Unknown if ever smoked [employer] Other Start: 01-28-2023 Sex Assigned At [employer] Other Start: 01-28-2023 End: 05-22-2023 Tobacco smoking [...] nursing note reviewed. Exam conducted with a bus boy present. Vitals: Estimated body mass index is 30.04 kg/m as calculated from the following: Height as of 11/23/23: 5' 1 . Weight as of this [...] Ricardo Rodriguez DO documented in this encounter [facility] Clinical Note 07-08-2022 Note Date & Type Note Facility 07-08-2022 Note OPERATIVE NOTE OPERATION DATE: 07/08/2022 PROCEDURE: Diagnostic laparoscopy with fulguration of ovarian endometrial implant. PREOPERATIVE DIAGNOSIS: Pelvic pain. POSTOPERATIVE DIAGNOSIS: Pelvic pain. ANESTHESIA: General. SURGEON: Ricardo Rodriguez D.O. CHARGE AUTHORIZER: DEVIN Miles URINE OUTPUT: Yellow and clear. [...] to Recovery Room in stable condition. [facility] Evaluation note 12-22-2020 Note Date & Type Note Facility 12-22-2020 Evaluation note Encounter Date Diagnosis Assessment Notes Nov, Irritable bowel syndrome with both constipation and diarrhea (ICD-10 - K58.2) LABS INDICATED ABOVE START TRIAL OF DICYCLOMINE 20 BID RTO 4 WEEKS [employer] Other Evaluation note Note Date & Type Note Facility Evaluation note [employer] Other Evaluation note Note Date & Type Note Facility Evaluation note Diagnosis Second trimester state, incidental Diabetes mellitus screening Screening for diabetes mellitus documented in this encounter [facility] Evaluation note Note Date & Type Note Facility Evaluation note No assessment information availa [facility] Work Phone: History general Narrative - Reported Note Date & Type Note Facility History general Narrative - Reported Type Medical History anxiety/depression Medical History IBS Surgical History TONSILLECTOMY [employer] Other History general Narrative - Reported Note Date & Type Note Facility History general Narrative - Reported [employer] Other Summary Purpose Family History No Family [...] [facility] DATE CREATED AUTHOR AUTHOR'S ORGANLAUREL ATION 07/29/2023 [facility] [employer] Care Teams (unrecognized sec tion and content) 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 [facility]. provides no warranty or guarantee of the accuracy or completeness of information in this document.
[2023-07-29 19:43] VITALS: BP 139/67; PULSE 102; TEMP 36.2
[2023-07-29 19:45] VITALS: BP 139/67; PULSE 102; TEMP 36.2
[2023-07-29 20:27] LABS: Bilirubin Urine NEGATIVE (NEGATIVE); Blood Urine NEGATIVE (NEGATIVE); Clarity Urine CLEAR (CLEAR); Color Urine LT. YELLOW (YELLOW); Glucose Urine UA NEGATIVE (NEGATIVE); Ketones Urine TRACE mg/dL (NEGATIVE); Leukocyte Esterase Urine NEGATIVE (NEGATIVE); Nitrite Urine NEGATIVE (NEGATIVE); Protein Urine NEGATIVE (NEG/TRACE); Specific Gravity Urine 1.015 (1.005-1.025); Urobilinogen Urine 0.2 EU/dL (0.2-1.0); pH Urine 5.5 (5.0-9.0)
[2023-07-29 20:28] LABS: Urine Microscopic Indicated NO
[2023-07-29 20:35] LABS: Amnisure NEGATIVE (NEGATIVE)
== END 2023-07-29 20:45 | disposition home or self-care (01) ==
LOC: FBC 19:29
PROVIDERS: Admitting Provider Obstetrics & Gynecology; PCP Family Medicine; Visit Provider Obstetrics & Gynecology
DX: O47.1 False labor at or after 37 completed weeks of gestation (principal); Z03.71 Encounter for suspected problem with amniotic cavity and membrane ruled out; Z3A.37 37 weeks gestation of pregnancy
CPT/HCPCS: 59025; 81003; 84112; G0378; G0379

== ENCOUNTER 2023-08-01 07:02 | Outpatient (OUT) | payer BC, SELFPAY ==
--- OUTSIDE RECORDS SUMMARY | 2023-08-01 07:05 | XMS_ITS | CCD ---
Author Organization [facility] Care Team Providers Care Oxygen Tank Filler Name Role Phone Lydia Dudley Unavailable Mohini [...] Unavailable HOY ., DR PERDUE Consulting Unavailable [place], DR DUDLEY Emanuel Consulting Unavailable JENNIFER ., [...] Unavailable Iron Garcia MD Primary Care Provider [phone] JENNIFER, RICARDO Attending Unavailable JENNIFER, RICARDO Attending Unavailable JENNIFER, RICARDO Attending Unavailable JENNIFER, RICARDO Attending Unavailable JENNIFER, RICARDO Attending Unavailable JENNIFER, RICARDO Attending Unavailable JENNIFER, RICARDO Attending Unavailable JENNIFER, RICARDO Attending Unavailable JENNIFER, RICARDO Attending Unavailable JENNIFER, RICARDO Attending Unavailable Medications Current Medications Medication Drug Class(es) Dates Sig (Normalized) Sig (Original) [id number] 200 actuat albuterol 0.09 mg/actuat metered dose [...] DAILY NEEDED FOR NAUSEA 0 02/19/2023 Active [id number]-[id number] Fum-Folic Ac-Om3 (One A Day Women's Dha) 28 mg iron- 800 mcg combo pack (1 source) Start: 05-22-2023 [id number] Fum-Folic Ac-Om3 (One A Day Women's Dha) [...] SHIRIN+probe Ql (Unsp spec) [facility] Urinalysis macro (dipstick) panel (U)on 05-10-2023 Bilirubin, UA Negative Negative - 4(70) +++ mg/dL [facility] Blood, UA Negative Negative - 50 Jayson/mcL [facility] Clarity, UA Clear [facility] Color, UA Yellow [facility] Glucose, UA Negative Negative - 1999(110) ++++ mg/dL [facility] Interpretation and review of laboratory results Abnormal [facility] Ketones, UA Positive Negative - 160(16) ++++ mg/dL [facility] Comment on above: trace Leukocytes, UA Trace Negative - 500+++ Lolita/mcL [facility] Nitrite, UA Negative Negative - Positive [facility] pH, UA 6.0 5 - 9 [facility] Protein, UA Negative Negative - 1999(20) ++++ mg/dL [facility] Spec Grav, UA 1.030 1 - 1.03 [facility] Urobilinogen, UA 0.2 0.2 - 12 mg/dL [facility] CBC AUTO DIFFon 07-08-2022 BASO # 0.0 103/ul Normal 0.0-0.1 [facility] Comment on above: Performed By: #### R F #### [facility] [address] [place] [address] Dr. Venkat Sloan Basophils/100 WBC (Bld) 0.5 % Normal 0.2-2.0 [facility] Comment on above: Performed By: #### R F #### [facility] [address] [place] [address] Dr. Venkat Sloan EO # 0.1 103/ul Normal 0.0-0.7 [facility] Comment on above: Performed By: #### R F #### [facility] [address] [place] [address] Dr. Venkat Sloan Eosinophils/100 WBC (Bld) 1.7 % Normal 0.9-7.0 [facility] Comment on above: Performed By: #### R F #### [facility] [address] [place] [address] Dr. Venkat Sloan Erythrocyte distribution width (RBC) [Ratio] 12.7 % Normal 11.0-15.0 [facility] Comment on above: Performed By: #### R F #### [facility] [address] [place] [address] Dr. Venkat Sloan Hematocrit (Bld) [Volume fraction] 40.4 % Normal 36.0-48.0 [facility] Comment on above: Performed By: #### R F #### [facility] [address] [place] [address] Dr. Venkat Sloan Hemoglobin (Bld) [Mass/Vol] 13.1 g/dL Normal 12.0-16.0 [facility] Comment on above: Performed By: #### R F #### [facility] [address] [place] [address] Dr. Venkat Sloan IG # 0.02 10e3/ul Normal 0.00-0.03 [facility] Comment on above: Performed By: #### R F #### [facility] [address] [place] [address] Dr. Venkat Sloan IG % 0.3 % Normal 0.0-0.5 [facility] Comment on above: Performed By: #### R F #### [facility] [address] [place] [address] Dr. Venkat Sloan LYMPH # 2.0 103/ul Normal 1.2-3.8 [facility] Comment on above: Performed By: #### R F #### [facility] [address] [place] [address] Dr. Venkat Sloan Lymphocytes/100 WBC (Bld) 26.2 % Normal 20.5-60.0 [facility] Comment on above: Performed By: #### R F #### [facility] [address] [place] [address] Dr. Venkat Sloan MANUAL DIFF REQ NO Normal [facility] Comment on above: Performed By: #### R F #### [facility] [address] [place] [address] Dr. Venkat Sloan MCH (RBC) [Entitic mass] 28.4 pg Normal 26.7-34.0 [facility] Comment on above: Performed By: #### R F #### [facility] [address] [place] [address] Dr. Venkat Sloan MCHC (RBC) [Mass/Vol] 32.4 g/dL Normal 29.9-35.2 [facility] Comment on above: Performed By: #### R F #### [facility] [address] [place] [address] Dr. Venkat Sloan MCV (RBC) [Entitic vol] 87.4 fL Normal 81.0-99.0 [facility] Comment on above: Performed By: #### R F #### [facility] [address] [place] [address] Dr. Venkat Sloan MONO # 0.7 103/ul Normal 0.3-0.8 [facility] Comment on above: Performed By: #### R F #### [facility] [address] [place] [address] Dr. Venkat Sloan Monocytes/100 WBC (Bld) 8.8 % Normal 1.7-12.0 [facility] Comment on above: Performed By: #### R F #### [facility] [address] [place] [address] Dr. Venkat Sloan NEUT # 4.8 103/ul Normal 1.4-6.5 [facility] Comment on above: Performed By: #### R F #### [facility] [address] [place] [address] Dr. Venkat Sloan Neutrophils/100 WBC (Bld) 62.5 % Normal 43.0-75.0 [facility] Comment on above: Performed By: #### R F #### [facility] [address] [place] [address] Dr. Venkat Sloan Platelet mean volume (Bld) [Entitic vol] 8.5 fL Critically low 9.5-13.5 [facility] Comment on above: Performed By: #### R F #### [facility] [address] [place] [address] Dr. Venkat Sloan PLT 331 103/ul Normal 150-450 [facility] Comment on above: Performed By: #### R F #### [facility] [address] [place] [address] Dr. Venkat Sloan RBC 4.62 106/ul Normal 4.20-5.40 [facility] Comment on above: Performed By: #### R F #### [facility] [address] [place] [address] Dr. Venkat Sloan WBC 7.7 103/ul Normal 4.0-11.0 [facility] Comment on above: Performed By: #### R F #### [facility] [address] [place] [address] Dr. Venkat Sloan PREG QUANT HCGon 07-08-2022 HCG QUANT <1 Normal [facility] Comment on above: Performed By: #### P REGQNT #### [facility] [address] [place] [address] Dr. Venkat Sloan HCG RANGE SEE BELOW Normal [facility] Comment on above: Result Comment: 5-50 0.2-1 WEEK 50-500 1-2 WEEKS 100-5,000 2-3 WEEKS 500-10,000 3-4 WEEKS 1,000-50,000 4-5 WEEKS 10,000-100,000 5-6 WEEKS 15,000-200,000 6-8 WEEKS 10,000-100,000 2-3 MONTHS Performed By: #### P REGQNT #### [facility] [address] [place] [address] Dr. Venkat Sloan PROGESTERONEon 06-23-2022 Progesterone 5.7 ng/mL Normal [facility] Comment on above: Result Comment: Foll icular phase 0.1 - 0.9 Luteal phase 1.8 - 23.9 Ovulation phase 0.1 - 12.0 First trimester 11.0 - 44.3 Second trimester 25.4 - 83.3 Third trimester 58.7 - 214.0 Postmenopausal 0.0 - 0.1 Performed By: #### T SH #### [facility] [address] [place] [address] Dr. Venkat Sloan PREG QUANT HCGon 05-31-2022 HCG QUANT 1 mIU/mL Normal [facility] Comment on above: Performed By: #### P REGQNT #### [facility] [address] [place] [address] Dr. Venkat Sloan HCG RANGE SEE BELOW Normal [facility] Comment on above: Result Comment: 5-50 0.2-1 WEEK 50-500 1-2 WEEKS 100-5,000 2-3 WEEKS 500-10,000 3-4 WEEKS 1,000-50,000 4-5 WEEKS 10,000-100,000 5-6 WEEKS 15,000-200,000 6-8 WEEKS 10,000-100,000 2-3 MONTHS Performed By: #### P REGQNT #### [facility] [address] [place] [address] Dr. Venkat Sloan PROGESTERONEon 05-21-2022 Progesterone 12.4 ng/mL Normal [facility] Comment on above: Result Comment: Foll icular phase 0.1 - 0.9 Luteal phase 1.8 - 23.9 Ovulation phase 0.1 - 12.0 First trimester 11.0 - 44.3 Second trimester 25.4 - 83.3 Third trimester 58.7 - 214.0 Postmenopausal 0.0 - 0.1 Performed By: #### I NFLUAB #### [facility] [address] [place] [address] Dr. Venkat Sloan MRI BRAIN WO W [...] LAM VELA Date: 2022-05-04 08:42 Normal [facility] PREG QUANT HCGon 05-04-2022 HCG QUANT <1 Normal [facility] Comment on above: Performed By: #### R F #### [facility] [address] [address] [address] Venkat Sloan HCG RANGE SEE BELOW Normal [facility] Comment on above: Result Comment: 5-50 0.2-1 WEEK 50-500 1-2 WEEKS 100-5,000 2-3 WEEKS 500-10,000 3-4 WEEKS 1,000-50,000 4-5 WEEKS 10,000-100,000 5-6 WEEKS 15,000-200,000 6-8 WEEKS 10,000-100,000 2-3 MONTHS Performed By: #### R F #### [facility] [address] [address] [address] Venkat Sloan XR HYSTEROSALPINGOGRAMon XR HYSTEROSALPINGOGRAM [...] by: LAM VELA Date: 2022-05-04 16:09 Normal [facility] PROGESTERONEon 04-24-2022 Progesterone 0.4 ng/mL Normal [facility] Comment on above: Result Comment: Foll icular phase 0.1 - 0.9 Luteal phase 1.8 - 23.9 Ovulation phase 0.1 - 12.0 First trimester 11.0 - 44.3 Second trimester 25.4 - 83.3 Third trimester 58.7 - 214.0 Postmenopausal 0.0 - 0.1 Performed By: #### I NFLUAB #### [facility] [address] [place] [address] Dr. Venkat Sloan CULTURE SPUTUMon 04-02-2022 CULTURE SPUTUM Culture Observations : NORMAL RESPIRATORY NATALEE. Normal [facility] Comment on above: Performed By: #### R F #### [facility] [address] [place] [address] Dr. Venkat Sloan SPUTUM GRAM STAINon 04-02-19 23 COMMENTS Normal [facility] Comment on above: Performed By: #### R F #### [facility] [address] [place] [address] Dr. Venkat Sloan DIPHTHEROIDS Normal [facility] Comment on above: Performed By: #### R F #### [facility] [address] [place] [address] Dr. Venkat Sloan EPITHELIALS <25 Normal [facility] Comment on above: Performed By: #### R F #### [facility] [address] [place] [address] Dr. Venkat Sloan FUNGAL ELEMENTS Normal [facility] Comment on above: Performed By: #### R F #### [facility] [address] [place] [address] Dr. Venkat Sloan GRAM NEG BACILLI RARE Normal [facility] Comment on above: Performed By: #### R F #### [facility] [address] [place] [address] Dr. Venkat Sloan GRAM NEG DIPPLOCOCCI Normal [facility] Comment on above: Performed By: #### R F #### [facility] [address] [place] [address] Dr. Venkat Sloan GRAM POS BACILLI Normal [facility] Comment on above: Performed By: #### R F #### [facility] [address] [place] [address] Dr. Venkat Sloan GRAM POSITIVE COCCI RARE Normal [facility] Comment on above: Performed By: #### R F #### [facility] [address] [place] [address] Dr. Venkat Sloan WBC (Bld) [#/Vol] 10*3/uL Normal [facility] Comment on above: Performed By: #### R F #### [facility] [address] [place] [address] Dr. Venkat Sloan Covid-19 PCR (CVDTB)on SARS-CoV-2 (COVID-19) RNA SHIRIN+probe Ql (Unsp spec) Not detected Normal NOT DETECTED [facility] Comment on above: Result Comment: This test is not yet approved or cleared by the [place] FDA. When there are no FDA-approved or cleared tests available, and other criteria are met, FDA can make tests available under an emergency access mechanism called an Emergency Use Authorization (EUA). The EUA for this test is supported by the [place] of Health and Human Service's (HHS's) declaration [...] SARS-CoV-2. Performed By: #### P REGQNT #### [facility] [address] [place] [address] Dr. Venkat Sloan INFLUENZA A [facility] B [facility] Normal [facility] Comment on above: Result Comment: Nega tive for Flu A protein angiten. Infection due to Flu A cannot be ruled out. Flu A angiten in the sample may be below the detection limit of the test. Performed By: #### I NFLUAB #### [facility] [address] [place] [address] Dr. Venkat Sloan INFLUBNEG SEE BELOW Normal [facility] Comment on above: Result Comment: Nega tive for Flu B protein antigen. Infection due to Flu B cannot be ruled out. Flu B antigen in the sample may be below the detection limit of the test. Performed By: #### I NFLUAB #### [facility] [address] [place] [address] Dr. Venkat Solan INFLUENZA A AG Negative Normal NEGATIVE SEE COMMENT [facility] Comment on above: Performed By: #### I NFLUAB #### [facility] [address] [place] [address] Dr. Venkat Sloan INFLUENZA B AG Negative Normal NEGATIVE SEE COMMENT [facility] Comment on above: Performed By: #### I NFLUAB #### [facility] [address] [place] [address] Dr. Venkat Sloan XR CHEST 2 Von [...] [address] Date: 2022-03-24 12:33 Normal [facility] SARS-CoV-2 (COVID-19) RNA SHIRIN+probe Ql (Unsp spec) Not detected Normal NOT DETECTED [facility] Comment on above: Result [...] for this test is supported by the [place] of Health and Human Service's declaration that [...] used). Performed By: #### R F #### [facility] [address] [place] [address] Dr. Venkat Sloan INFLUENZA A AND B [facility] 03-15 [facility] SEE BELOW Normal [facility] Comment on above: Result Comment: Nega tive for Flu A protein angiten. Infection due to Flu A cannot be ruled out. Flu A angiten in the sample may be below the detection limit of the test. Performed By: #### I NFLUAB #### [facility] [address] [place] [address] Dr. Ven[address] [facility] SEE BEL[facility] Normal [facility] Comment on above: Result Comment: Nega tive for Flu B protein antigen. Infection due to Flu B cannot be ruled out. Flu B antigen in the sample may be below the detection limit of the test. Performed By: #### I NFLUAB #### [facility] [address] [place] [address] Dr. Venkat Sloan INFLUENZA A AG Negative Normal NEGATIVE SEE COMMENT [facility] Comment on above: Performed By: #### I NFLUAB #### [facility] [address] [place] [address] Dr. Venkat Sloan INFLUENZA B AG Negative Normal NEGATIVE SEE COMMENT [facility] Comment on above: Performed By: #### I NFLUAB #### [facility] [address] [place] [address] Dr. Venkat Sloan INTERNAL CONTROLS Within Normal Limits Normal Wi thin Normal Limits [facility] Comment on above: Performed By: #### I NFLUAB #### [facility] [address] [place] [address] Dr. Venkat Sloan Covid-19 PCR ([facility])on 02-25 SARS-CoV-2 (COVID-19) RNA SHIRIN+probe Ql (Unsp spec) Not detected Normal NOT DETECTED [facility] Comment on above: Result [...] for this test is supported by the [employer] Instructor of Health and Human Service's declaration that [...] used). Performed By: #### I NFLUAB #### [facility] [address] [place] [address] Dr. Venkat Slaon INFLUENZA A AND B AGon 03-[facility] BEL[facility] Normal [facility] Comment on above: Result Comment: Nega tive for Flu A protein angiten. Infection due to Flu A cannot be ruled out. Flu A angiten in the sample may be below the detection limit of the test. Performed By: #### I NFLUAB #### [facility] [address] [place] [address] Dr. Venkat S[facility] SEE BELOW Normal [facility] Comment on above: Result Comment: Nega tive for Flu B protein antigen. Infection due to Flu B cannot be ruled out. Flu B antigen in the sample may be below the detection limit of the test. Performed By: #### I NFLUAB #### [facility] [address] [address] [address] Venkat Sloan INFLUENZA A AG Negative Normal NEGATIVE SEE COMMENT [facility] Comment on above: Performed By: #### I NFLUAB #### [facility] [address] [address] [address] Venkat Sloan INFLUENZA B AG Negative Normal NEGATIVE SEE COMMENT [facility] Comment on above: Performed By: #### I NFLUAB #### [facility] [address] [place] [address] Dr. Venkat Sloan INTERNAL CONTROLS Within Normal Limits Normal Wi thin Normal Limits [facility] Comment on above: Performed By: #### I NFLUAB #### [facility] [address] [place] [address] Dr. Venkat Sloan PROGESTERONEon 02-20-2022 Progesterone 0.3 ng/mL Normal [facility] Comment on above: Result Comment: Foll icular phase 0.1 - 0.9 Luteal phase 1.8 - 23.9 Ovulation phase 0.1 - 12.0 First trimester 11.0 - 44.3 Second trimester 25.4 - 83.3 Third trimester 58.7 - 214.0 Postmenopausal 0.0 - 0.1 Performed By: #### R F #### [facility] [address] [place] [address] Dr. Venkat Sloan ACTH STIMULATIONon 2 Andros Baseline 49 ng/dL Normal 41-262 [facility] Comment on above: Performed By: #### R F #### [facility] [address] [place] [address] Dr. Venkat Sloan Andros Stimulated 82 ng/dL Normal Not Estab. [facility] Comment on above: Performed By: #### R F #### [facility] [address] [place], [place] [id number] Dr. Venkat Sloan [facility]on 01-26 SARS-CoV-2 (COVID-19) RNA SHIRIN+probe Ql (Unsp spec) Not detected Normal NOT DETECTED [facility] Comment on above: Result Comment: This test is not yet approved or cleared by the [place] FDA. When there are no FDA-approved or cleared tests available, and other criteria are met, FDA can make tests available under an emergency access mechanism called an Emergency Use Authorization (EUA). The EUA for this test is supported by the [place] of Health and Human Service's (HHS's) declaration [...] SARS-CoV-2. Performed By: #### I NFLUAB #### [facility] [address] [place] [address] Dr. Venkat Sloan INFLUENZA A AND B [facility] 02-10 [facility] SEE BELOW Normal [facility] Comment on above: Result Comment: Nega tive for Flu A protein angiten. Infection due to Flu A cannot be ruled out. Flu A angiten in the sample may be below the detection limit of the test. Performed By: #### P REGQNT #### [facility] [address] [place] [address] Dr. Venkat S[facility] BEL[facility] Normal [facility] Comment on above: Result Comment: Nega tive for Flu B protein antigen. Infection due to Flu B cannot be ruled out. Flu B antigen in the sample may be below the detection limit of the test. Performed By: #### P REGQNT #### [facility] [address] [place] [address] Dr. Venkat Sloan INFLUENZA A AG Negative Normal NEGATIVE SEE COMMENT [facility] Comment on above: Performed By: #### P REGQNT #### [facility] [address] [place] [address] Dr. Venkat Sloan INFLUENZA B AG Negative Normal NEGATIVE SEE COMMENT [facility] Comment on above: Performed By: #### P REGQNT #### [facility] [address] [place], [place] [address] Dr. Venkat Sloan INTERNAL CONTROLS Within Normal Limits Normal Wi thin Normal Limits [facility] Comment on above: Performed By: #### P REGQNT #### [facility] [address] [place], [place] [address] Dr. Venkat Sloan DHEA SERUMon 01-19-2022 Dehydroepiandrosterone (DHEA) 82 ng/dL Normal -701 [facility] Comment on above: Result Comment: Age [...] [birth year] Performed By: #### T SH #### [facility] [address] [place] [address] Dr. Venkat Sloan DHEA-SULFATEon 01-14-2022 DHEA-Sulfate 34.0 ug/dL Critically low 84.8-378.0 [facility] Comment on above: Performed By: #### R F #### [facility] [address] [place] [address] Dr. Venkat Sloan FSHon 01-14-2022 FSH 2.2 mIU/mL Normal [facility] Comment on above: Result Comment: Adul t Female: Follicular phase 3.5 - 12.5 Ovulation phase 4.7 - 21.5 Luteal phase 1.7 - 7.7 Postmenopausal 25.8 - 134.8 Performed By: #### L BCFSH #### [facility] [address] [place] [address] Dr. Venkat Sloan LUTEINIZING HORMONE (LH)on LH 5.1 mIU/mL Normal [facility] Comment on above: Result Comment: Adul t Female: Follicular phase 2.4 - 12.6 Ovulation phase 14.0 - 95.6 Luteal phase 1.0 - 11.4 Postmenopausal 7.7 - 58.5 Performed By: #### I NFLUAB #### [facility] [address] [place] [address] Dr. Venkat Sloan PROLACTINon 01-14-2022 Prolactin 8.0 ng/mL Normal 4.8-23.3 [facility] Comment on above: Performed By: #### P ROLAC #### [facility] [address] [place] [address] Dr. Venkat Sloan CBC AUTO DIFFon 01-13-2022 BASO # 0.0 103/ul Normal 0.0-0.1 [facility] Comment on above: Performed By: #### T SH #### [facility] [address] [place] [address] Dr. Venkat Sloan Basophils/100 WBC (Bld) 0.4 % Normal 0.2-2.0 [facility] Comment on above: Performed By: #### T SH #### [facility] [address] [place] [address] Dr. Venkat Sloan EO # 0.1 103/ul Normal 0.0-0.7 [facility] Comment on above: Performed By: #### T SH #### [facility] [address] [place] [address] Dr. Venkat Sloan Eosinophils/100 WBC (Bld) 1.2 % Normal 0.9-7.0 [facility] Comment on above: Performed By: #### T SH #### [facility] [address] [place] [address] Dr. Venkat Sloan Erythrocyte distribution width (RBC) [Ratio] 12.7 % Normal 11.0-15.0 [facility] Comment on above: Performed By: #### T SH #### [facility] [address] [place] [address] Dr. Venkat Sloan Hematocrit (Bld) [Volume fraction] 41.1 % Normal 36.0-48.0 [facility] Comment on above: Performed By: #### T SH #### [facility] [address] [place] [address] Dr. Venkat Sloan Hemoglobin (Bld) [Mass/Vol] 13.1 g/dL Normal 12.0-16.0 [facility] Comment on above: Performed By: #### T SH #### [facility] [address] [place] [address] Dr. Venkat Sloan IG # 0.03 10e3/ul Normal 0.00-0.03 [facility] Comment on above: Performed By: #### T SH #### [facility] [address] [place] [address] Dr. Venkat Sloan IG % 0.3 % Normal 0.0-0.5 [facility] Comment on above: Performed By: #### T SH #### [facility] [address] [place] [address] Dr. Venkat Sloan LYMPH # 1.6 103/ul Normal 1.2-3.8 [facility] Comment on above: Performed By: #### T SH #### [facility] [address] [place] [address] Dr. Venkat Sloan Lymphocytes/100 WBC (Bld) 15.0 % Critically low 20.5-60.0 [facility] Comment on above: Performed By: #### T SH #### [facility] [address] [place] [address] Dr. Venkat Sloan MANUAL DIFF REQ NO Normal [facility] Comment on above: Performed By: #### T SH #### [facility] [address] [place] [address] Dr. Venkat Sloan MCH (RBC) [Entitic mass] 28.5 pg Normal 26.7-34.0 [facility] Comment on above: Performed By: #### T SH #### [facility] [address] [place] [address] Dr. Venkat Sloan MCHC (RBC) [Mass/Vol] 31.9 g/dL Normal 29.9-35.2 [facility] Comment on above: Performed By: #### T SH #### [facility] [address] [place] [address] Dr. Venkat Sloan MCV (RBC) [Entitic vol] 89.3 fL Normal 81.0-99.0 [facility] Comment on above: Performed By: #### T SH #### [facility] [address] [place] [address] Dr. Venkat Sloan MONO # 0.9 103/ul Critically high 0.3-0.8 [facility] Comment on above: Performed By: #### T SH #### [facility] [address] [address] [address] Venkat Sloan Monocytes/100 WBC (Bld) 8.8 % Normal 1.7-12.0 [facility] Comment on above: Performed By: #### T SH #### [facility] [address] [address] [address] Venkat Sloan NEUT # 7.9 103/ul Critically high 1.4-6.5 [facility] Comment on above: Performed By: #### T SH #### [facility] [address] [place] [address] Dr. Venkat Sloan Neutrophils/100 WBC (Bld) 74.3 % Normal 43.0-75.0 [facility] Comment on above: Performed By: #### T SH #### [facility] [address] [address] [address] Venkat Sloan Platelet mean volume (Bld) [Entitic vol] 9.2 fL Critically low 9.5-13.5 [facility] Comment on above: Performed By: #### T SH #### [facility] [address] [place] [address] Dr. Venkat Sloan PLT 300 103/ul Normal 150-450 [facility] Comment on above: Performed By: #### T SH #### [facility] [address] [address] [address] Venkat Sloan RBC 4.60 106/ul Normal 4.20-5.40 [facility] Comment on above: Performed By: #### T SH #### [facility] [address] [address] [address] Venkat Sloan WBC 10.7 103/ul Normal 4.0-11.0 [facility] Comment on above: Performed By: #### T SH #### [facility] [address] [address] [address] Venkat Sloan GLYCOHEMOGLOBIN A1Con 2021 ADA RECOMMENDATION SEE BELOW Normal [facility] Comment on above: Result Comment: ADA RECOMMENDED LIMIT 4.0 - 6.0 ADA THERAPEUTIC TARGET < 7.0 ACTION SUGGESTED > 7.0 Performed By: #### P REGQNT #### [facility] [address] [place] [address] Dr. Venkat Sloan Glucose [Mass/Vol] 100 mg/dL Normal [facility] Comment on above: Performed By: #### P REGQNT #### [facility] [address] [address] [address] Venkat Sloan HbA1c (Bld) [Mass fraction] 5.1 % Normal 4.5-6.2 [facility] Comment on above: Performed By: #### P REGQNT #### [facility] [address] [place] [address] Dr. Venkat Sloan TSHon 01-13-2022 TSH 1.098 uIU/mL Normal 0.358-3.740 [facility] Comment on above: Performed By: #### T SH #### [facility] [address] [place] [address] Dr. Venkat Sloan Covid-19 PCR ([facility])on 12-26 SARS-CoV-2 (COVID-19) RNA SHIRIN+probe Ql (Unsp spec) Not detected Normal NOT DETECTED [facility] Comment on above: Result Comment: This test is not yet approved or cleared by the [place] FDA. When there are no FDA-approved or cleared tests available, and other criteria are met, FDA can make tests available under an emergency access mechanism called an Emergency Use Authorization (EUA). The EUA for this test is supported by the [place] of Health and Human Service's (HHS's) declaration [...] SARS-CoV-2. Performed By: #### I NFLUAB #### [facility] [address] [place] [address] Dr. Venkat Sloan PREG QUANT HCGon 12-24-2021 HCG QUANT <1 Normal [facility] Comment on above: Performed By: #### P REGQNT #### [facility] [address] [place] [address] Dr. Venkat Sloan HCG RANGE SEE BELOW Normal [facility] Comment on above: Result Comment: 5-50 0.2-1 WEEK 50-500 1-2 WEEKS 100-5,000 2-3 WEEKS 500-10,000 3-4 WEEKS 1,000-50,000 4-5 WEEKS 10,000-100,000 5-6 WEEKS 15,000-200,000 6-8 WEEKS 10,000-100,000 2-3 MONTHS Performed By: #### P REGQNT #### [facility] [address] [place] [address] Dr. Venkat Sloan HCG-BETA SUBUNIT QUANTon hCG,Beta Subunit,Qnt,Serum <1 Normal [facility] Comment on above: Result Comment: Fema le (Non-) 0 - 5 (Postmenopausal) 0 - 8 . Female () Weeks of Gestation 3 6 - 71 4 10 - 750 5 217 - 7138 6 158 - 66129 7 [id number] [id number] 8 [phone] -[phone] 9 10597 -125228 10 99556 -[phone] 12 [id number] -[id number] 14 80141 - 66051 15 72321 - 56676 16 4094 - 88195 17 1631 - 62566 18 [phone] - [phone] Aj ECLIA methodology Performed By: #### T SH #### [facility] [address] [place] [address] Dr. Venkat Sloan BRETT by IFAon 09-29-2021 Antinuclear Antibodies, IFA Negative Normal [facility] Comment on above: Result Comment: Nega tive <1:80 Borderline 1:80 Positive >1:80 ICAP nomenclature: AC-0 For more information about Hep-2 cell patterns use ANApatterns.org, the official website for the International Consensus on Antinuclear Antibody (BRETT) Patterns (ICAP). Performed By: #### A NAIFA #### [facility] [address] [place] [address] Dr. Venkat Sloan INSULINon 09-29-2021 Insulin 11.1 uIU/mL Normal 2.6-24.9 [facility] Comment on above: Performed By: #### T SH #### [facility] [address] [place] [address] Dr. Venkat Sloan ANTISTREPTOLYSIN O AB (ASO)o n 09-27-2021 Antistreptolysin O Ab <20.0 Normal 0.0-200.0 [facility] Comment on above: Performed By: #### P REGQNT #### [facility] [address] [place] [address] Dr. Venkat Sloan RHEUMATOID FACTORon 09-28-19 22 RA Latex Turbid. <10.0 Normal <14.0 [facility] Comment on above: Performed By: #### R F #### [facility] [address] [place] [address] Dr. Venkat Sloan CBC AUTO DIFFon 09-26-2021 BASO # 0.0 103/ul Normal 0.0-0.1 [facility] Comment on above: Performed By: #### T SH #### [facility] [address] [place] [address] Dr. Venkat Sloan Basophils/100 WBC (Bld) 0.3 % Normal 0.2-2.0 [facility] Comment on above: Performed By: #### T SH #### [facility] [address] [place] [address] Dr. Venkat Sloan EO # 0.1 103/ul Normal 0.0-0.7 [facility] Comment on above: Performed By: #### T SH #### [facility] [address] [place] [address] Dr. Venkat Sloan Eosinophils/100 WBC (Bld) 1.8 % Normal 0.9-7.0 [facility] Comment on above: Performed By: #### T SH #### [facility] [address] [place] [address] Dr. Venkat Sloan Erythrocyte distribution width (RBC) [Ratio] 12.9 % Normal 11.0-15.0 [facility] Comment on above: Performed By: #### T SH #### [facility] [address] [place] [address] Dr. Venkat Sloan Hematocrit (Bld) [Volume fraction] 39.8 % Normal 36.0-48.0 [facility] Comment on above: Performed By: #### T SH #### [facility] [address] [place] [address] Dr. Venkat Sloan Hemoglobin (Bld) [Mass/Vol] 12.7 g/dL Normal 12.0-16.0 [facility] Comment on above: Performed By: #### T SH #### [facility] [address] [place] [address] Dr. Venkat Sloan IG # 0.02 10e3/ul Normal 0.00-0.03 [facility] Comment on above: Performed By: #### T SH #### [facility] [address] [place] [address] Dr. Venkat Sloan IG % 0.3 % Normal 0.0-0.5 [facility] Comment on above: Performed By: #### T SH #### [facility] [address] [place] [address] Dr. Venkat Sloan LYMPH # 1.5 103/ul Normal 1.2-3.8 [facility] Comment on above: Performed By: #### T SH #### [facility] [address] [place] [address] Dr. Venkat Sloan Lymphocytes/100 WBC (Bld) 21.5 % Normal 20.5-60.0 [facility] Comment on above: Performed By: #### T SH #### [facility] [address] [place] [address] Dr. Venkat Sloan MANUAL DIFF REQ NO Normal [facility] Comment on above: Performed By: #### T SH #### [facility] [address] [place] [address] Dr. Venkat Sloan MCH (RBC) [Entitic mass] 28.5 pg Normal 26.7-34.0 [facility] Comment on above: Performed By: #### T SH #### [facility] [address] [place] [address] Dr. Venkat Sloan MCHC (RBC) [Mass/Vol] 31.9 g/dL Normal 29.9-35.2 [facility] Comment on above: Performed By: #### T SH #### [facility] [address] [place] [address] Dr. Venkat Sloan MCV (RBC) [Entitic vol] 89.2 fL Normal 81.0-99.0 [facility] Comment on above: Performed By: #### T SH #### [facility] [address] [place] [address] Dr. Venkat Sloan MONO # 0.5 103/ul Normal 0.3-0.8 [facility] Comment on above: Performed By: #### T SH #### [facility] [address] [place] [address] Dr. Venkat Sloan Monocytes/100 WBC (Bld) 7.6 % Normal 1.7-12.0 [facility] Comment on above: Performed By: #### T SH #### [facility] [address] [place] [address] Dr. Venkat Sloan NEUT # 4.9 103/ul Normal 1.4-6.5 [facility] Comment on above: Performed By: #### T SH #### [facility] [address] [place] [address] Dr. Venkat Sloan Neutrophils/100 WBC (Bld) 68.5 % Normal 43.0-75.0 [facility] Comment on above: Performed By: #### T SH #### [facility] [address] [place] [address] Dr. Venkat Sloan Platelet mean volume (Bld) [Entitic vol] 8.8 fL Critically low 9.5-13.5 [facility] Comment on above: Performed By: #### T SH #### [facility] [address] [address] [address] Venkat Sloan PLT 297 103/ul Normal 150-450 [facility] Comment on above: Performed By: #### T SH #### [facility] [address] [address] [address] Venkat Sloan RBC 4.46 106/ul Normal 4.20-5.40 [facility] Comment on above: Performed By: #### T SH #### [facility] [address] [address] [address] Venkat Sloan WBC 7.1 103/ul Normal 4.0-11.0 [facility] Comment on above: Performed By: #### T SH #### [facility] [address] [place] [address] Dr. Venkat Sloan CRPon 09-26-2021 CRP [Mass/Vol] mg/L Normal <=1.0 [facility] Comment on above: Performed By: #### P REGQNT #### [facility] [address] [place] [address] Dr. Venkat Sloan FREE THYROXINE INDEX T7on FTI 2.71 Normal 1.30-4.50 [facility] Comment on above: Performed By: #### P REGQNT #### [facility] [address] [place] [address] Dr. Venkat Sloan T3U 33.0 % Normal 30.0-39.0 [facility] Comment on above: Performed By: #### P REGQNT #### [facility] [address] [place] [address] Dr. Venkat Sloan T4 [Mass/Vol] 8.20 ug/dL Normal 4.80-13.90 [facility] Comment on above: Performed By: #### P REGQNT #### [facility] [address] [place] [address] Dr. Venkat Sloan GLYCOHEMOGLOBIN A1Con 2021 ADA RECOMMENDATION SEE BELOW Normal [facility] Comment on above: Result Comment: ADA RECOMMENDED LIMIT 4.0 - 6.0 ADA THERAPEUTIC TARGET < 7.0 ACTION SUGGESTED > 7.0 Performed By: #### I NFLUAB #### [facility] [address] [place] [address] Dr. Venkat Sloan Glucose [Mass/Vol] 105 mg/dL Normal [facility] Comment on above: Performed By: #### I NFLUAB #### [facility] [address] [address] [address] Venkat Sloan HbA1c (Bld) [Mass fraction] 5.3 % Normal 4.5-6.2 [facility] Comment on above: Performed By: #### I NFLUAB #### [facility] [address] [place] [address] Dr. Venkat Sloan IRONon 09-26-2021 Iron [Mass/Vol] 49.0 ug/dL Critically low 50.0-170.0 [facility] Comment on above: Performed By: #### P REGQNT #### [facility] [address] [place] [address] Dr. Venkat Sloan LIPID PROFILEon 09-26-2021 CHOL-HDL RATIO NORM SEE BELOW Normal [facility] Comment on above: Result Comment: 3.3 - 4.4 LOW RISK 4.4 - 7.1 AVERAGE RISK 7.1 - 11.0 MODERATE RISK >11.0 HIGH RISK Performed By: #### P REGQNT #### [facility] [address] [place] [address] Dr. Venkat Sloan Cholesterol [Mass/Vol] 197 mg/dL Normal <=200 [facility] Comment on above: Performed By: #### P REGQNT #### [facility] [address] [place] [address] Dr. Venkat Sloan Cholesterol in HDL [Mass/Vol] 64 mg/dL Critically high 40-60 [facility] Comment on above: Performed By: #### P REGQNT #### [facility] [address] [place] [address] Dr. Venkat Sloan Cholesterol in LDL [Mass/Vol] 123.4 mg/dL Normal [facility] Comment on above: Performed By: #### P REGQNT #### [facility] [address] [address] [address] Venkat Sloan Cholesterol.total/Choles terol in HDL [Mass ratio] 3.1 {ratio} Normal [facility] Comment on above: Performed By: #### P REGQNT #### [facility] [address] [address] [address] Venkat Sloan HDL NORMAL > or = 60 mg/dl - LO W CARDIOVASCULAR RISK <40 mg/dl - HIGH CARDIOVASCULAR RISK Normal [facility] Comment on above: Performed By: #### P REGQNT #### [facility] [address] [address] [address] Venkat Sloan LDL CALC NORMAL SEE BELOW Normal [facility] Comment on above: Result Comment: <100 mg/dl OPTIMAL 100 - 129 mg/dl NEAR OR ABOVE OPTIMAL 130 - 159 mg/dl BORDERLINE HIGH 160 - 189 mg/dl HIGH >190 mg/dl VERY HIGH Performed By: #### P REGQNT #### [facility] [address] [place] [address] Dr. Venkat Sloan Triglyceride [Mass/Vol] 48 mg/dL Normal <=150 [facility] Comment on above: Performed By: #### P REGQNT #### [facility] [address] [place] [address] Dr. Venkat Sloan VLDL CALC 9.6 mg/dL Normal [facility] Comment on above: Performed By: #### P REGQNT #### [facility] [address] [place] [address] Dr. Venkat Sloan PROF 14(COMP METB)on 022 Albumin [Mass/Vol] 4.0 g/dL Normal 3.4-5.0 [facility] Comment on above: Performed By: #### I NFLUAB #### [facility] [address] [place] [address] Dr. Venkat Sloan Albumin/Globulin [Mass ratio] 1.3 {ratio} Normal [facility] Comment on above: Performed By: #### I NFLUAB #### [facility] [address] [address] [address] Venkat Sloan ALP [Catalytic activity/Vol] 58 U/L Normal 46-116 [facility] Comment on above: Performed By: #### I NFLUAB #### [facility] [address] [place] [address] Dr. Venkat Sloan ALT [Catalytic activity/Vol] 20 U/L Normal 14-59 [facility] Comment on above: Performed By: #### I NFLUAB #### [facility] [address] [address] [address] Venkat Sloan Anion gap [Moles/Vol] 10.4 mmol/L Normal [facility] Comment on above: Performed By: #### I NFLUAB #### [facility] [address] [place] [address] Dr. Venkat Sloan AST [Catalytic activity/Vol] 11 U/L Critically low 15-37 [facility] Comment on above: Performed By: #### I NFLUAB #### [facility] [address] [place] [address] Dr. Venkat Sloan Bilirubin [Mass/Vol] 0.8 mg/dL Normal 0.2-1.0 [facility] Comment on above: Performed By: #### I NFLUAB #### [facility] [address] [place] [address] Dr. Venkat Sloan Calcium [Mass/Vol] 9.0 mg/dL Normal 8.5-10.1 [facility] Comment on above: Performed By: #### I NFLUAB #### [facility] [address] [place] [address] Dr. Venkat Sloan Chloride [Moles/Vol] 106 mmol/L Normal 98-107 [facility] Comment on above: Performed By: #### I NFLUAB #### [facility] [address] [address] [address] Venkat Sloan CO2 [Moles/Vol] 27.0 mmol/L Normal 21.0-32.0 [facility] Comment on above: Performed By: #### I NFLUAB #### [facility] [address] [place] [address] Dr. Venkat Sloan Creatinine [Mass/Vol] 0.70 mg/dL Normal 0.55-1.02 [facility] Comment on above: Performed By: #### I NFLUAB #### [facility] [address] [place] [address] Dr. Venkat Sloan EGFR-AF TAJIK >60 Normal >=60 [facility] Comment on above: Performed By: #### I NFLUAB #### [facility] [address] [place] [address] Dr. Venkat Sloan EGFR-NON AF TAJIK >60 Normal >=60 [facility] Comment on above: Performed By: #### I NFLUAB #### [facility] [address] [place] [address] Dr. Venkat Sloan Globulin (S) [Mass/Vol] 3.2 g/dL Normal [facility] Comment on above: Performed By: #### I NFLUAB #### [facility] [address] [place] [address] Dr. Venkat Sloan Glucose [Mass/Vol] 92 mg/dL Normal 74-106 [facility] Comment on above: Performed By: #### I NFLUAB #### [facility] [address] [place] [address] Dr. Venkat Sloan Potassium [Moles/Vol] 4.4 mmol/L Normal 3.5-5.1 [facility] Comment on above: Performed By: #### I NFLUAB #### [facility] [address] [place] [address] Dr. Venkat Sloan Protein [Mass/Vol] 7.2 g/dL Normal 6.4-8.2 [facility] Comment on above: Performed By: #### I NFLUAB #### [facility] [address] [place] [address] Dr. Venkat Sloan Sodium [Moles/Vol] 139 mmol/L Normal 136-145 [facility] Comment on above: Performed By: #### I NFLUAB #### [facility] [address] [place] [address] Dr. Venkat Sloan Urea nitrogen [Mass/Vol] 13.0 mg/dL Normal 7.0-18.0 [facility] Comment on above: Performed By: #### I NFLUAB #### [facility] [address] [address] [address] Venkat Sloan Urea nitrogen/Creatinine [Mass ratio] 18.6 mg/mg Normal [facility] Comment on above: Performed By: #### I NFLUAB #### [facility] [address] [address] [address] Venkat Sloan TSHon 09-26-2021 TSH 1.318 uIU/mL Normal 0.358-3.740 [facility] Comment on above: Performed By: #### P REGQNT #### [facility] [address] [place] [address] Dr. Venkat Sloan URIC ACID SERUMon 09-26-2021 Urate [Mass/Vol] 3.9 mg/dL Normal 2.6-6.0 [facility] Comment on above: Performed By: #### P REGQNT #### [facility] [address] [place] [address] Dr. Venkat Sloan XR CSPINE MIN 4 [...] DUDLEY HERNÁNDEZ Date: 2021-09-24 21:16 Normal [facility] PREG QUANT HCGon 08-17-2021 HCG QUANT <1 Normal [facility] Comment on above: Performed By: #### I NFLUAB #### [facility] [address] [place] [address] Dr. Venkat Sloan HCG RANGE SEE BELOW Normal [facility] Comment on above: Result Comment: 5-50 0-1 WEEK 40-300 1-2 WEEKS 100-1,000 2-3 WEEKS 500-6,000 3-4 WEEKS 5,000-200,000 1-2 MONTHS 10,000-100,000 2-3 MONTHS 3,000-50,000 2ND TRIMESTER 1,000-50,000 3RD TRIMESTER Performed By: #### I NFLUAB #### [facility] [address] [place] [address] Dr. Venkat Sloan US PELVIS AND TRANSVAGon [...] DUDLEY HERNÁNDEZ Date: 2021-08-17 07:01 Normal [facility] COVID Quick Testingon 2020 Result Negative [facility] Other Vital Signs Date Time Vital Sign Value Performing Clinician Facility 05-22-2023 09:0500 Body height 154.94 cm [facility] 05-22-2023 09:27-0500 Body mass index (BMI) [Ratio] 30.8 kg/m2 [facility] 05-22-2023 09:27050 Body temperature 98.1 [degF] [facility] 05-22-2023 09:270500 Body weight 74.04 kg [facility] 05-22-2023 09:27-0500 Heart rate 78 /min [facility] 05-22-2023 09:27-0500 Respiratory rate 16 /min [facility] 05-22-2023 09:27-0500 SaO2% (BldA) [Mass fraction] 98 % [facility] 05-10-2023 15:14-0500 Body mass index (BMI) [Ratio] 30.04 kg/m2 Ricardo Jennifer DO Work Phone: [facility] 05-10-2023 15:14-0500 Body weight 72.12 kg Ricardo Jennifer DO Work Phone: [facility] 05-10-2023 15:14-0500 Diastolic blood pressure 70 mm[Hg] Ricardo Jennifer DO Work Phone: [facility] 05-10-2023 15:14-0500 Systolic blood pressure 110 mm[Hg] [employer] Work Phone: [facility] 01-27-2021 18:45-0400 Body height 154.94 cm Mohini Martinez Other [employer] Other 01-27-2021 18:45-0400 Body mass index (BMI) [Ratio] 28.34 kg/m2 Mohini Buttault Other [facility] Other 01-27-2021 18:45-0400 Body temperature 96.4 [degF] Mohini Juan Other [facility] Other 01-27-2021 18:45-0400 Body weight 68.04 kg Mohini Buttault Other [facility] 01-27-2021 18:45-0400 Respiratory rate 18 /min Mohini Buttault Other [facility] 01-27-2021 18:45-0400 SaO2% (BldA) [Mass fraction] 99 % Mohini Martinez Other [facility] Other 12-22-2020 11:45-0400 Body height 154.94 cm Dudley Freeman Other [facility] Other 12-22-2020 11:45-0400 Body mass index (BMI) [Ratio] 28.34 kg/m2 Dudley Freeman Other [facility] 12-22-2020 11:45-0400 Body weight 68.04 kg Dudley Freeman Other [facility] Other Encounters Encounter Date Encounter Type Care [...] Not Available Start: 05-22-2023 End: 05-22-2023 ambulatory [facility] Work Phone: Start: 05-22-2023 End: 05-22-2023 Patient encounter procedure [facility] Chris Work Phone: [...] other preprocedural examination DR RICARDO RODRIGUEZ . [facility] Start: 07-08-2022 End: 07-08-[address] [...] Start: 02-17-2022 End: 02-18-[address] RICARDO ORDRIGUEZ . Facility:[facility] Start: 02-10-2022 End: 02-10-2022 ambulatory [...] abnormal findings DR IRON GARCIA . [facility] Start: 09-26-2021 End: 09-27-2021 ambulatory [...] 01-27-2021 End: 01-27-2021 ambulatory Mohini Martinez Other [facility] Start: 01-27-2021 Office outpatient vi sit [...] [address] [place] [id number] Ricardo Rodriguez, DO [address] [place] [address] [address] [facility] Start: 05-10-2023 End: 05-10-2024 CBC panel - Blood by Automated count CBC Lab Routine Diabetes mellitus screening Expected: 05/10/2023 (Approximate), Expires: 05/10/2024 [facility] Work Phone: Comment on above: Expected: 05/10/2023 (Approximate), Expires: 05/10/2024 Start: 05-10-2023 End: 05-10-2024 Measurement of glucose 1 hour after glucose challenge for glucose tolerance test Glucose tolerance, 1 hour Lab Routine Diabetes mellitus screening Expected: 05/10/2023 (Approximate), Expires: 05/10/2024 [facility] Comment on above: Expected: 05/10/2023 (Approximate), Expires: 05/10/2024 Start: 11-26-2022 Influenza vaccination Influenz a Vaccine (#1) [facility] Immunizations Immunization Date Immunization Notes Care Provider Fa [facility] 01-25-2022 influenza virus vacc ine, unspecified formulation Ricardo Rodriguez DO Work Phone: [facility] Payers Date Payer Category Payer Unknown BCBS BCBS xxxxxx [id number] 2022-Present [phone] [address] [place] [address] [id number] 1993 Unknown [id number] 2.16.840.1.128419.3.579.2.593 1993 Unknown [id number] 2.16.840.1.525086.3.579.2.593 1993 Unknown [id number] 2.16.840.1.035023.3.579.2.593 1993 Unknown [id number] 2.16.840.1.439527.3.579.2.593 1993 Unknown [id number] 2.16.840.1.372025.3.579.2.593 1993 Unknown [id number] 2.16.840.1.030768.3.579.2.59 1993 Unknown [id number] 2.16.840.1.118386.3.579.2.593 1993 Unknown [id number] 2.16.840.1.561237.3.579.2.593 1993 Unknown [id number] 2.16.840.1.610093.3.579.2.59 1993 Unknown [id number] 2.16.840.1.291270.3.579.2.593 1993 Unknown [id number] 2.16.840.1.098863.3.579.2.59 1993 Unknown [id number] 2.16.840.1.489713.3.579.2.593 1993 Unknown [id number] 2.16.840.1.724284.3.579.2.59 1993 Unknown [id number] 2.16.840.1.894887.3.579.2.59 1993 Unknown [id number] 2.16.840.1.237996.3.579.2.593 1993 Unknown [id number] 2.16.840.1.627648.3.579.2.59 1993 Unknown [id number] 2.16.840.1.923312.3.579.2.593 1993 Unknown [id number] 2.16.840.1.160880.3.579.2.593 1993 Unknown [id number] 2.16.840.1.026174.3.579.2.593 1993 Unknown [id number] 2.16.840.1.102226.3.579.2.593 1993 Unknown [id number] 2.16.840.1.727315.3.579.2.593 1993 Unknown [id number] 2.16.840.1.038238.3.579.2.593 1993 Unknown [id number] 2.16.840.1.810402.3.579.2.59 1993 Unknown [id number] 2.16.840.1.153235.3.579.2.593 1993 Unknown [id number] 2.16.840.1.059411.3.579.2.59 1993 Unknown [id number] 2.16.840.1.972429.3.579.2.125 1993 Unknown [id number] 2.16.840.1.504683.3.579.2.1258 1993 Unknown [id number] 2.16.840.1.694636.3.579.2.1258 1993 Unknown [id number] 2.16.840.1.388528.3.579.2.1258 1993 Unknown [id number] 2.16.840.1.634991.3.579.2.125 1993 Unknown [id number] 2.16.840.1.028477.3.579.2.1258 1993 Unknown [id number] 2.16.840.1.700344.3.579.2.1258 1993 Unknown [id number] 2.16.840.1.797488.3.579.2.1258 1993 Unknown [id number] 2.16.840.1.208306.3.579.2.1259 1993 Unknown [id number] 2.16.840.1.130751.3.579.2.1259 1959 Unknown [id number] 1959 Unknown [id number] Self-pay Self Pay [id number] Unknown [id number] 2.16. 840.1.853172.19 Unknown O [id number] Unknown [place] BC/BS [id number] Social History Date Type Detail Facility Unknown if ever smoked [facility] Start: 01-28-2023 Sex Assigned At [facility] Start: 01-28-2023 End: 05-22-2023 Tobacco smoking [...] nursing note reviewed. Exam conducted with a land management supervisor present. Vitals: Estimated body mass index is [...] Ricardo Rodriguez DO documented in this encounter [facility] Clinical Note 07-08-2022 Note Date & Type Note Facility 07-08-2022 Note OPERATIVE NOTE OPERATION DATE: 07/08/2022 PROCEDURE: Diagnostic laparoscopy with fulguration of ovarian endometrial implant. PREOPERATIVE DIAGNOSIS: Pelvic pain. POSTOPERATIVE DIAGNOSIS: Pelvic pain. ANESTHESIA: General. SURGEON: Ricardo Rodriguez D.O. FRUIT INSPECTOR: DEVIN Miles URINE OUTPUT: Yellow and clear. [...] to Recovery Room in stable condition. [facility] Evaluation note 12-22-2020 Note Date & Type Note Facility 12-22-2020 Evaluation note Encounter Date Diagnosis Assessment Notes Nov, Irritable bowel syndrome with both constipation and diarrhea (ICD-10 - K58.2) LABS INDICATED ABOVE START TRIAL OF DICYCLOMINE 20 BID RTO 4 WEEKS [facility] Other Evaluation note Note Date & Type Note Facility Evaluation note [facility] Other Evaluation note Note Date & Type Note Facility Evaluation note Diagnosis Second trimester state, incidental Diabetes mellitus screening Screening for diabetes mellitus documented in this encounter [facility] Evaluation note Note Date & Type Note Facility Evaluation note No assessment information availa [facility] Work Phone: History general Narrative - Reported Note Date & Type Note Facility History general Narrative - Reported Type Medical History anxiety/depression Medical History IBS Surgical History TONSILLECTOMY [facility] Other History general Narrative - Reported Note Date & Type Note Facility History general Narrative - Reported [facility] Summary Purpose Family History No Family [...] DATE CREATED AUTHOR AUTHOR'S ORGANLAUREL ATION 07/29/2023 [facility] Care Teams (unrecognized sec tion and content) Oxygen Tank Filler Relationship Specialty Start Date End Date Iron Garcia MD [address] [place] [address] PCP - General Family Medicine 11/23/22 Team [...] BE BASED ON THE PRIMARY CLINICAL RECORDS. [facility]. provides no warranty or guarantee of the accuracy or completeness of information in this document.
[2023-08-01 20:01] VITALS: BP 122/78; PULSE 94
--- NOTE | 2023-08-01 21:26 | US_ITS ---
[address] [address] Patient Name: ESTER BRADFORD MRN: [facility]:[id number] date: 1995 Sex: F Assigned Patient Location: US Current Patient Location: US Accession/Order Number: [id number] Exam Date: 08/01/2023 21:30 Report Date: 08/02/2023 08:22 At the request of: RICARDO LEGGETT Procedure: US OB BPP w non-stress EXAMINATION: US OB BPP w non-stress HISTORY: JOSESITO INCREASED O40.9XX0 COMPARISON: Ultrasound OB biophysical 07/25/2023 TECHNIQUE: Ultrasound biophysical profile was performed in the radiology department. BREATHING MOVEMENTS: 2.0 GROSS BODY MOVEMENTS: 2.0 TONE: 2.0 QUALITATIVE AMNIOTIC FLUID VOLUME: 2.0 PRESENTATION: CEPHALIC HEART RATE: 133.7 bpm bpm. AMNIOTIC FLUID VOLUME: 14.4 cm GESTATIONAL AGE: 37 weeks 3 days CONCLUSION: Total biophysical profile score 8.0. Electronically authenticated by: JUDITH MACHUCA Date: 08/02/2023 08:22
--- NOTE | 2023-08-01 21:49 | PC.NURSE ---
Pt. discharged home in stable condition
== END 2023-08-01 21:51 | disposition home or self-care (01) ==
LOC: US 07:02 → FBC 19:55
PROVIDERS: PCP Family Medicine; Visit Provider Obstetrics & Gynecology
DX: O40.9XX0 Polyhydramnios, unspecified trimester, not applicable or unspecified (principal); Z3A.37 37 weeks gestation of pregnancy
CPT/HCPCS: 59025; 76818

== ENCOUNTER 2023-08-04 07:25 | Outpatient (OUT) | payer BC, SELFPAY ==
--- OUTSIDE RECORDS SUMMARY | 2023-08-04 07:45 | XMS_ITS | CCD ---
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 Role Phone Lydia Dudley [...] Unavailable HOY ., DR PERDUE Consulting Unavailable [place], DR DUDLEY Emanuel Consulting Unavailable JENNIFER ., [...] Unavailable Iron Garcia MD Primary Care Provider [phone] JENNIFER, RICARDO Attending Unavailable JENNIFER, RICARDO Attending Unavailable JENNIFER, RICARDO Attending Unavailable JENNIFER, RICARDO Attending Unavailable JENNIFER, RICARDO Attending Unavailable JENNIFER, RICARDO Attending Unavailable JENNIFER, RICARDO Attending Unavailable JENNIFER, RICARDO Attending Unavailable JENNIFER, RICARDO Attending Unavailable JENNIFER, RICARDO Attending Unavailable Medications Current Medications Medication Drug Class(es) Dates Sig (Normalized) Sig (Original) [id number] 200 actuat albuterol 0.09 mg/actuat metered dose [...] DAILY NEEDED FOR NAUSEA 0 02/19/2023 Active [id number] Fum-Folic Ac-Om3 (One A Day Women's Dha) 28 mg iron- 800 mcg combo pack (1 source) Start: 05-22-2023 [id number] Fum-Folic Ac-Om3 (One A Day Women's Dha) [...] SARS-CoV-2 (COVID-19) RNA SHIRIN+probe Ql (Unsp spec) [facility] Urinalysis macro (dipstick) panel (U)on 05-10-2023 Bilirubin, UA Negative Negative - 4(70) +++ mg/dL [facility] Blood, UA Negative Negative - 50 Jayson/mcL [facility] Clarity, UA Clear [facility] Color, UA Yellow [facility] Glucose, UA Negative Negative - 1999(110) ++++ mg/dL [facility] Interpretation and review of laboratory results Abnormal [facility] Ketones, UA Positive Negative - 160(16) ++++ mg/dL [facility] Comment on above: trace Leukocytes, UA Trace Negative - 500+++ Lolita/mcL [facility] Nitrite, UA Negative Negative - Positive [facility] pH, UA 6.0 5 - 9 [facility] Protein, UA Negative Negative - 1999(20) ++++ mg/dL [facility] Spec Grav, UA 1.030 1 - 1.03 [facility] Urobilinogen, UA 0.2 0.2 - 12 mg/dL [facility] CBC AUTO DIFFon 07-08-2022 BASO # 0.0 103/ul Normal 0.0-0.1 [facility] Comment on above: Performed By: #### R F #### [facility] [address] [place] [address] Dr. Venkat Sloan Basophils/100 WBC (Bld) 0.5 % Normal 0.2-2.0 [facility] Comment on above: Performed By: #### R F #### [facility] [address] [place] [address] Dr. Venkat Sloan EO # 0.1 103/ul Normal 0.0-0.7 [facility] Comment on above: Performed By: #### R F #### [facility] [address] [place] [address] Dr. Venkat Sloan Eosinophils/100 WBC (Bld) 1.7 % Normal 0.9-7.0 [facility] Comment on above: Performed By: #### R F #### [facility] [address] [place] [address] Dr. Venkat Sloan Erythrocyte distribution width (RBC) [Ratio] 12.7 % Normal 11.0-15.0 [facility] Comment on above: Performed By: #### R F #### [facility] [address] [place] [address] Dr. Venkat Sloan Hematocrit (Bld) [Volume fraction] 40.4 % Normal 36.0-48.0 [facility] Comment on above: Performed By: #### R F #### [facility] [address] [place] [address] Dr. Venkat Sloan Hemoglobin (Bld) [Mass/Vol] 13.1 g/dL Normal 12.0-16.0 [facility] Comment on above: Performed By: #### R F #### [facility] [address] [place] [address] Dr. Venkat Sloan IG # 0.02 10e3/ul Normal 0.00-0.03 [facility] Comment on above: Performed By: #### R F #### [facility] [address] [place] [address] Dr. Venkat Sloan IG % 0.3 % Normal 0.0-0.5 [facility] Comment on above: Performed By: #### R F #### [facility] [address] [place] [address] Dr. Venkat Sloan LYMPH # 2.0 103/ul Normal 1.2-3.8 [facility] Comment on above: Performed By: #### R F #### [facility] [address] [place] [address] Dr. Venkat Sloan Lymphocytes/100 WBC (Bld) 26.2 % Normal 20.5-60.0 [facility] Comment on above: Performed By: #### R F #### [facility] [address] [place] [address] Dr. Venkat Sloan MANUAL DIFF REQ NO Normal [facility] Comment on above: Performed By: #### R F #### [facility] [address] [place] [address] Dr. Venkat Sloan MCH (RBC) [Entitic mass] 28.4 pg Normal 26.7-34.0 [facility] Comment on above: Performed By: #### R F #### [facility] [address] [place] [address] Dr. Venkat Sloan MCHC (RBC) [Mass/Vol] 32.4 g/dL Normal 29.9-35.2 [facility] Comment on above: Performed By: #### R F #### [facility] [address] [place] [address] Dr. Venkat Sloan MCV (RBC) [Entitic vol] 87.4 fL Normal 81.0-99.0 [facility] Comment on above: Performed By: #### R F #### [facility] [address] [place] [address] Dr. Venkat Sloan MONO # 0.7 103/ul Normal 0.3-0.8 [facility] Comment on above: Performed By: #### R F #### [facility] [address] [place] [address] Dr. Venkat Sloan Monocytes/100 WBC (Bld) 8.8 % Normal 1.7-12.0 [facility] Comment on above: Performed By: #### R F #### [facility] [address] [place] [address] Dr. Venkat Sloan NEUT # 4.8 103/ul Normal 1.4-6.5 [facility] Comment on above: Performed By: #### R F #### [facility] [address] [place] [address] Dr. Venkat Sloan Neutrophils/100 WBC (Bld) 62.5 % Normal 43.0-75.0 [facility] Comment on above: Performed By: #### R F #### [facility] [address] [place] [address] Dr. Venkat Sloan Platelet mean volume (Bld) [Entitic vol] 8.5 fL Critically low 9.5-13.5 [facility] Comment on above: Performed By: #### R F #### [facility] [address] [place] [address] Dr. Venkat Sloan PLT 331 103/ul Normal 150-450 [facility] Comment on above: Performed By: #### R F #### [facility] [address] [place] [address] Dr. Venkat Sloan RBC 4.62 106/ul Normal 4.20-5.40 [facility] Comment on above: Performed By: #### R F #### [facility] [address] [place] [address] Dr. Venkat Sloan WBC 7.7 103/ul Normal 4.0-11.0 [facility] Comment on above: Performed By: #### R F #### [facility] [address] [place] [address] Dr. Venkat Sloan PREG QUANT HCGon 07-08-2022 HCG QUANT <1 Normal [facility] Comment on above: Performed By: #### P REGQNT #### [facility] [address] [place] [address] Dr. Venkat Sloan HCG RANGE SEE BELOW Normal [facility] Comment on above: Result Comment: 5-50 0.2-1 WEEK 50-500 1-2 WEEKS 100-5,000 2-3 WEEKS 500-10,000 3-4 WEEKS 1,000-50,000 4-5 WEEKS 10,000-100,000 5-6 WEEKS 15,000-200,000 6-8 WEEKS 10,000-100,000 2-3 MONTHS Performed By: #### P REGQNT #### [facility] [address] [place] [address] Dr. Venkat Sloan PROGESTERONEon 06-23-2022 Progesterone 5.7 ng/mL Normal [facility] Comment on above: Result Comment: Foll icular phase 0.1 - 0.9 Luteal phase 1.8 - 23.9 Ovulation phase 0.1 - 12.0 First trimester 11.0 - 44.3 Second trimester 25.4 - 83.3 Third trimester 58.7 - 214.0 Postmenopausal 0.0 - 0.1 Performed By: #### T SH #### [facility] [address] [place] [address] Dr. Venkat Sloan PREG QUANT HCGon 05-31-2022 HCG QUANT 1 mIU/mL Normal [facility] Comment on above: Performed By: #### P REGQNT #### [facility] [address] [place] [address] Dr. Venkat Sloan HCG RANGE SEE BELOW Normal [facility] Comment on above: Result Comment: 5-50 0.2-1 WEEK 50-500 1-2 WEEKS 100-5,000 2-3 WEEKS 500-10,000 3-4 WEEKS 1,000-50,000 4-5 WEEKS 10,000-100,000 5-6 WEEKS 15,000-200,000 6-8 WEEKS 10,000-100,000 2-3 MONTHS Performed By: #### P REGQNT #### [facility] [address] [place] [address] Dr. Venkat Sloan PROGESTERONEon 05-21-2022 Progesterone 12.4 ng/mL Normal [facility] Comment on above: Result Comment: Foll icular phase 0.1 - 0.9 Luteal phase 1.8 - 23.9 Ovulation phase 0.1 - 12.0 First trimester 11.0 - 44.3 Second trimester 25.4 - 83.3 Third trimester 58.7 - 214.0 Postmenopausal 0.0 - 0.1 Performed By: #### I NFLUAB #### [facility] [address] [place] [address] Dr. Venkat Sloan MRI BRAIN WO W [...] LAM VELA Date: 2022-05-04 08:42 Normal [facility] PREG QUANT HCGon 05-04-2022 HCG QUANT <1 Normal [facility] Comment on above: Performed By: #### R F #### [facility] [address] [address] [address] Venkat Sloan HCG RANGE SEE BELOW Normal [facility] Comment on above: Result Comment: 5-50 0.2-1 WEEK 50-500 1-2 WEEKS 100-5,000 2-3 WEEKS 500-10,000 3-4 WEEKS 1,000-50,000 4-5 WEEKS 10,000-100,000 5-6 WEEKS 15,000-200,000 6-8 WEEKS 10,000-100,000 2-3 MONTHS Performed By: #### R F #### [facility] [address] [address] [address] Venkat Sloan XR HYSTEROSALPINGOGRAMon XR HYSTEROSALPINGOGRAM [...] by: LAM VELA Date: 2022-05-04 16:09 Normal [facility] PROGESTERONEon 04-24-2022 Progesterone 0.4 ng/mL Normal [facility] Comment on above: Result Comment: Foll icular phase 0.1 - 0.9 Luteal phase 1.8 - 23.9 Ovulation phase 0.1 - 12.0 First trimester 11.0 - 44.3 Second trimester 25.4 - 83.3 Third trimester 58.7 - 214.0 Postmenopausal 0.0 - 0.1 Performed By: #### I NFLUAB #### [facility] [address] [place] [address] Dr. Venkat Sloan CULTURE SPUTUMon 04-02-2022 CULTURE SPUTUM Culture Observations : NORMAL RESPIRATORY NATALEE. Normal [facility] Comment on above: Performed By: #### R F #### [facility] [address] [place] [address] Dr. Venkat Sloan SPUTUM GRAM STAINon 04-02-19 23 COMMENTS Normal [facility] Comment on above: Performed By: #### R F #### [facility] [address] [place] [address] Dr. Venkat Sloan DIPHTHEROIDS Normal [facility] Comment on above: Performed By: #### R F #### [facility] [address] [place] [address] Dr. Venkat Sloan EPITHELIALS <25 Normal [facility] Comment on above: Performed By: #### R F #### [facility] [address] [place] [address] Dr. Venkat Sloan FUNGAL ELEMENTS Normal [facility] Comment on above: Performed By: #### R F #### [facility] [address] [place] [address] Dr. Venkat Sloan GRAM NEG BACILLI RARE Normal [facility] Comment on above: Performed By: #### R F #### [facility] [address] [place] [address] Dr. Venkat Sloan GRAM NEG DIPPLOCOCCI Normal [facility] Comment on above: Performed By: #### R F #### [facility] [address] [place] [address] Dr. Venkat Sloan GRAM POS BACILLI Normal [facility] Comment on above: Performed By: #### R F #### [facility] [address] [place] [address] Dr. Venkat Sloan GRAM POSITIVE COCCI RARE Normal [facility] [place] Comment on above: Performed By: #### R F #### [facility] [address] [place] [address] Dr. Venkat Sloan WBC (Bld) [#/Vol] 10*3/uL Normal [facility] Comment on above: Performed By: #### R F #### [facility] [address] [place] [address] Dr. Venkat Sloan Covid-19 PCR (CVDTB)on SARS-CoV-2 (COVID-19) RNA SHIRIN+probe Ql (Unsp spec) Not detected Normal NOT DETECTED [facility] Comment on above: Result Comment: This test is not yet approved or cleared by the [place] FDA. When there are no FDA-approved or cleared tests available, and other criteria are met, FDA can make tests available under an emergency access mechanism called an Emergency Use Authorization (EUA). The EUA for this test is supported by the [place] of Health and Human Service's (HHS's) declaration [...] SARS-CoV-2. Performed By: #### P REGQNT #### [facility] [address] [place] [address] Dr. Venkat Sloan INFLUENZA A AND B [facility]on [facility] Normal [facility] Comment on above: Result Comment: Nega tive for Flu A protein angiten. Infection due to Flu A cannot be ruled out. Flu A angiten in the sample may be below the detection limit of the test. Performed By: #### I NFLUAB #### [facility] [address] [place] [address] Dr. Venkat Sloan INFLUBNEG SEE BELOW Normal [facility] Comment on above: Result Comment: Nega tive for Flu B protein antigen. Infection due to Flu B cannot be ruled out. Flu B antigen in the sample may be below the detection limit of the test. Performed By: #### I NFLUAB #### [facility] [address] [place] [address] Dr. Venkat Sloan INFLUENZA A AG Negative Normal NEGATIVE SEE COMMENT [facility] Comment on above: Performed By: #### I NFLUAB #### [facility] [address] [place] [address] Dr. Venkat Sloan INFLUENZA B AG Negative Normal NEGATIVE SEE COMMENT [facility] Comment on above: Performed By: #### I NFLUAB #### [facility] [address] [place] [address] Dr. Venkat Sloan XR CHEST 2 Von [...] [address] Date: 2022-03-24 12:33 Normal [facility]19 PCR ([facility]on 02-25 SARS-CoV-2 (COVID-19) RNA SHIRIN+probe Ql (Unsp spec) Not detected Normal NOT DETECTED [facility] Comment on above: Result Comment: When [...] for this test is supported by the [place] Specialist of Health and Human Service's declaration that [...] used). Performed By: #### R F #### [facility] [address] [place] [address] Dr. Venkat Sloan INFLUENZA A AND B [facility] 03-15 [facility] SEE BELOW Normal [facility] Comment on above: Result Comment: Nega tive for Flu A protein angiten. Infection due to Flu A cannot be ruled out. Flu A angiten in the sample may be below the detection limit of the test. Performed By: #### I NFLUAB #### [facility] [address] [place] [address] Dr. Venkat S[facility] SEE BELOW Normal [facility] Comment on above: Result Comment: Nega tive for Flu B protein antigen. Infection due to Flu B cannot be ruled out. Flu B antigen in the sample may be below the detection limit of the test. Performed By: #### I NFLUAB #### [facility] [address] [place] [address] Dr. Venkat Sloan INFLUENZA A AG Negative Normal NEGATIVE SEE COMMENT [facility] Comment on above: Performed By: #### I NFLUAB #### [facility] [address] [place] [address] Dr. Venakt Sloan INFLUENZA B AG Negative Normal NEGATIVE SEE COMMENT [facility] Comment on above: Performed By: #### I NFLUAB #### [facility] [address] [place] [address] Dr. Venkat Sloan INTERNAL CONTROLS Within Normal Limits Normal Wi thin Normal Limits [facility] Comment on above: Performed By: #### I NFLUAB #### [facility] [address] [place] [address] Dr. Venkat Sloan Covid-19 PCR ([facility])on 02-25 SARS-CoV-2 (COVID-19) RNA SHIRIN+probe Ql (Unsp spec) Not detected Normal NOT DETECTED [facility] Comment on above: Result Comment: When [...] for this test is supported by the Lead Generation Specialist of Health and Human Service's declaration that [...] used). Performed By: #### I NFLUAB #### [facility] [address] [place] [address] Dr. Venkat Sloan INFLUENZA A AND B AGon 03-12 [facility] SEE BELOW Normal [facility] Comment on above: Result Comment: Nega tive for Flu A protein angiten. Infection due to Flu A cannot be ruled out. Flu A angiten in the sample may be below the detection limit of the test. Performed By: #### I NFLUAB #### [facility] [address] [place] [address] Dr. Venkat Sloan [facility] SEE BELOW Normal [facility] Comment on above: Result Comment: Nega tive for Flu B protein antigen. Infection due to Flu B cannot be ruled out. Flu B antigen in the sample may be below the detection limit of the test. Performed By: #### I NFLUAB #### [facility] [address] [address] [address] Venkat Sloan INFLUENZA A AG Negative Normal NEGATIVE SEE COMMENT [facility] Comment on above: Performed By: #### I NFLUAB #### [facility] [address] [address] [address] Venkat Sloan INFLUENZA B AG Negative Normal NEGATIVE SEE COMMENT [facility] Comment on above: Performed By: #### I NFLUAB #### [facility] [address] [place] [address] Dr. Venkat Sloan INTERNAL CONTROLS Within Normal Limits Normal Wi thin Normal Limits [facility] Comment on above: Performed By: #### I NFLUAB #### [facility] [address] [place] [address] Dr. Venkat Sloan PROGESTERONEon 02-20-2022 Progesterone 0.3 ng/mL Normal [facility] Comment on above: Result Comment: Foll icular phase 0.1 - 0.9 Luteal phase 1.8 - 23.9 Ovulation phase 0.1 - 12.0 First trimester 11.0 - 44.3 Second trimester 25.4 - 83.3 Third trimester 58.7 - 214.0 Postmenopausal 0.0 - 0.1 Performed By: #### R F #### [facility] [address] [place] [address] Dr. Venkat Sloan ACTH STIMULATIONon 2 Andros Baseline 49 ng/dL Normal 41-262 [facility] Comment on above: Performed By: #### R F #### [facility] [address] [place] [address] Dr. Venkat Sloan Andros Stimulated 82 ng/dL Normal Not Estab. [facility] Comment on above: Performed By: #### R F #### [facility] [address] [place], [place] [id number] Dr. Venkat Sloan Covid-19 PCR ([facility]on 01-26 SARS-CoV-2 (COVID-19) RNA SHIRIN+probe Ql (Unsp spec) Not detected Normal NOT DETECTED [facility] Comment on above: Result Comment: This test is not yet approved or cleared by the [place] FDA. When there are no FDA-approved or cleared tests available, and other criteria are met, FDA can make tests available under an emergency access mechanism called an Emergency Use Authorization (EUA). The EUA for this test is supported by the [place] of Health and Human Service's (HHS's) declaration [...] SARS-CoV-2. Performed By: #### I NFLUAB #### [facility] [address] [place] [address] Dr. Venkat Sloan INFLUENZA A AND B [facility] 02-10 [facility] SEE BELOW Normal [facility] Comment on above: Result Comment: Nega tive for Flu A protein angiten. Infection due to Flu A cannot be ruled out. Flu A angiten in the sample may be below the detection limit of the test. Performed By: #### P REGQNT #### [facility] [address] [place] [address] Dr. Venkat S[facility] SEE BELOW Normal [facility] Comment on above: Result Comment: Nega tive for Flu B protein antigen. Infection due to Flu B cannot be ruled out. Flu B antigen in the sample may be below the detection limit of the test. Performed By: #### P REGQNT #### [facility] [address] [place] [address] Dr. Venkat Sloan INFLUENZA A AG Negative Normal NEGATIVE SEE COMMENT [facility] Comment on above: Performed By: #### P REGQNT #### [facility] [address] [place] [address] Dr. Venkat Sloan INFLUENZA B AG Negative Normal NEGATIVE SEE COMMENT [facility] Comment on above: Performed By: #### P REGQNT #### [facility] [address] [place], [place] [address] Dr. Venkat Sloan INTERNAL CONTROLS Within Normal Limits Normal Wi thin Normal Limits [facility] Comment on above: Performed By: #### P REGQNT #### [facility] [address] [place], [place] [address] Dr. Venkat Sloan DHEA SERUMon 01-19-2022 Dehydroepiandrosterone (DHEA) 82 ng/dL Normal -701 [facility] Comment on above: Result Comment: Age 1 [...] 701 Performed By: #### T SH #### [facility] [address] [place] [address] Dr. Venkat Sloan DHEA-SULFATEon 01-14-2022 DHEA-Sulfate 34.0 ug/dL Critically low 84.8-378.0 [facility] Comment on above: Performed By: #### R F #### [facility] [address] [place] [address] Dr. Venkat Sloan FSHon 01-14-2022 FSH 2.2 mIU/mL Normal [facility] Comment on above: Result Comment: Adul t Female: Follicular phase 3.5 - 12.5 Ovulation phase 4.7 - 21.5 Luteal phase 1.7 - 7.7 Postmenopausal 25.8 - 134.8 Performed By: #### L BCFSH #### [facility] [address] [place] [address] Dr. Venkat Sloan LUTEINIZING HORMONE (LH)on LH 5.1 mIU/mL Normal [facility] Comment on above: Result Comment: Adul t Female: Follicular phase 2.4 - 12.6 Ovulation phase 14.0 - 95.6 Luteal phase 1.0 - 11.4 Postmenopausal 7.7 - 58.5 Performed By: #### I NFLUAB #### [facility] [address] [place] [address] Dr. Venkat Sloan PROLACTINon 01-14-2022 Prolactin 8.0 ng/mL Normal 4.8-23.3 [facility] Comment on above: Performed By: #### P ROLAC #### [facility] [address] [place] [address] Dr. Venkat Sloan CBC AUTO DIFFon 01-13-2022 BASO # 0.0 103/ul Normal 0.0-0.1 [facility] Comment on above: Performed By: #### T SH #### [facility] [address] [place] [address] Dr. Venkat Sloan Basophils/100 WBC (Bld) 0.4 % Normal 0.2-2.0 [facility] Comment on above: Performed By: #### T SH #### [facility] [address] [place] [address] Dr. Venkat Sloan EO # 0.1 103/ul Normal 0.0-0.7 [facility] Comment on above: Performed By: #### T SH #### [facility] [address] [place] [address] Dr. Venkat Sloan Eosinophils/100 WBC (Bld) 1.2 % Normal 0.9-7.0 [facility] Comment on above: Performed By: #### T SH #### [facility] [address] [place] [address] Dr. Venkat Sloan Erythrocyte distribution width (RBC) [Ratio] 12.7 % Normal 11.0-15.0 [facility] Comment on above: Performed By: #### T SH #### [facility] [address] [place] [address] Dr. Venkat Sloan Hematocrit (Bld) [Volume fraction] 41.1 % Normal 36.0-48.0 [facility] Comment on above: Performed By: #### T SH #### [facility] [address] [place] [address] Dr. Venkat Sloan Hemoglobin (Bld) [Mass/Vol] 13.1 g/dL Normal 12.0-16.0 [facility] Comment on above: Performed By: #### T SH #### [facility] [address] [place] [address] Dr. Venkat Sloan IG # 0.03 10e3/ul Normal 0.00-0.03 [facility] Comment on above: Performed By: #### T SH #### [facility] [address] [place] [address] Dr. Venkat Sloan IG % 0.3 % Normal 0.0-0.5 [facility] Comment on above: Performed By: #### T SH #### [facility] [address] [place] [address] Dr. Venkat Sloan LYMPH # 1.6 103/ul Normal 1.2-3.8 [facility] Comment on above: Performed By: #### T SH #### [facility] [address] [place] [address] Dr. Venkat Sloan Lymphocytes/100 WBC (Bld) 15.0 % Critically low 20.5-60.0 [facility] Comment on above: Performed By: #### T SH #### [facility] [address] [place] [address] Dr. Venkat Sloan MANUAL DIFF REQ NO Normal [facility] Comment on above: Performed By: #### T SH #### [facility] [address] [place] [address] Dr. Venkat Sloan MCH (RBC) [Entitic mass] 28.5 pg Normal 26.7-34.0 [facility] Comment on above: Performed By: #### T SH #### [facility] [address] [place] [address] Dr. Venkat Sloan MCHC (RBC) [Mass/Vol] 31.9 g/dL Normal 29.9-35.2 [facility] Comment on above: Performed By: #### T SH #### [facility] [address] [place] [address] Dr. Venkat Sloan MCV (RBC) [Entitic vol] 89.3 fL Normal 81.0-99.0 [facility] Comment on above: Performed By: #### T SH #### [facility] [address] [place] [address] Dr. Venkat Sloan MONO # 0.9 103/ul Critically high 0.3-0.8 [facility] Comment on above: Performed By: #### T SH #### [facility] [address] [address] [address] Venkat Sloan Monocytes/100 WBC (Bld) 8.8 % Normal 1.7-12.0 [facility] Comment on above: Performed By: #### T SH #### [facility] [address] [address] [address] Venkat Sloan NEUT # 7.9 103/ul Critically high 1.4-6.5 [facility] Comment on above: Performed By: #### T SH #### [facility] [address] [place] [address] Dr. Venkat Sloan Neutrophils/100 WBC (Bld) 74.3 % Normal 43.0-75.0 [facility] Comment on above: Performed By: #### T SH #### [facility] [address] [address] [address] Venkat Sloan Platelet mean volume (Bld) [Entitic vol] 9.2 fL Critically low 9.5-13.5 [facility] Comment on above: Performed By: #### T SH #### [facility] [address] [place] [address] Dr. Venkat Sloan PLT 300 103/ul Normal 150-450 [facility] Comment on above: Performed By: #### T SH #### [facility] [address] [address] [address] Venkat Sloan RBC 4.60 106/ul Normal 4.20-5.40 [facility] Comment on above: Performed By: #### T SH #### [facility] [address] [address] [address] Venkat Sloan WBC 10.7 103/ul Normal 4.0-11.0 [facility] Comment on above: Performed By: #### T SH #### [facility] [address] [address] [address] Venkat Sloan GLYCOHEMOGLOBIN A1Con 2021 ADA RECOMMENDATION SEE BELOW Normal [facility] Comment on above: Result Comment: ADA RECOMMENDED LIMIT 4.0 - 6.0 ADA THERAPEUTIC TARGET < 7.0 ACTION SUGGESTED > 7.0 Performed By: #### P REGQNT #### [facility] [address] [place] [address] Dr. Venkat Sloan Glucose [Mass/Vol] 100 mg/dL Normal [facility] Comment on above: Performed By: #### P REGQNT #### [facility] [address] [address] [address] Venkat Sloan HbA1c (Bld) [Mass fraction] 5.1 % Normal 4.5-6.2 [facility] Comment on above: Performed By: #### P REGQNT #### [facility] [address] [place] [address] Dr. Venkat Sloan TSHon 01-13-2022 TSH 1.098 uIU/mL Normal 0.358-3.740 [facility] Comment on above: Performed By: #### T SH #### [facility] [address] [place] [address] Dr. Venkat Sloan Covid-19 PCR ([facility])on 12-26 SARS-CoV-2 (COVID-19) RNA SHIRIN+probe Ql (Unsp spec) Not detected Normal NOT DETECTED [facility] Comment on above: Result Comment: This test is not yet approved or cleared by the [place] FDA. When there are no FDA-approved or cleared tests available, and other criteria are met, FDA can make tests available under an emergency access mechanism called an Emergency Use Authorization (EUA). The EUA for this test is supported by the [place] of Health and Human Service's (HHS's) declaration [...] SARS-CoV-2. Performed By: #### I NFLUAB #### [facility] [address] [place] [address] Dr. Venkat Sloan PREG QUANT HCGon 12-24-2021 HCG QUANT <1 Normal [facility] Comment on above: Performed By: #### P REGQNT #### [facility] [address] [place] [address] Dr. Venkat Sloan HCG RANGE SEE BELOW Normal [facility] Comment on above: Result Comment: 5-50 0.2-1 WEEK 50-500 1-2 WEEKS 100-5,000 2-3 WEEKS 500-10,000 3-4 WEEKS 1,000-50,000 4-5 WEEKS 10,000-100,000 5-6 WEEKS 15,000-200,000 6-8 WEEKS 10,000-100,000 2-3 MONTHS Performed By: #### P REGQNT #### [facility] [address] [place] [address] Dr. Venkat Sloan HCG-BETA SUBUNIT QUANTon hCG,Beta Subunit,Qnt,Serum <1 Normal [facility] Comment on above: Result Comment: Fema le (Non-) 0 - 5 (Postmenopausal) 0 - 8 . Female () Weeks of Gestation 3 6 - 71 4 10 - 750 5 217 - 7138 6 158 - 43758 7 [phone] -[phone] 8 [phone] 9 [phone] -[phone] 10 08861 -[phone] 12 63021 -680398 14 70095 - 53528 15 77941 - 76015 16 3055 - 85029 17 2507 - 59275 18 0654 - 19090 Aj ECLIA methodology Performed By: #### T SH #### [facility] [address] [place] [address] Dr. Venkat Sloan BRETT by IFAon 09-29-2021 Antinuclear Antibodies, IFA Negative Normal [facility] Comment on above: Result Comment: Nega tive <1:80 Borderline 1:80 Positive >1:80 ICAP nomenclature: AC-0 For more information about Hep-2 cell patterns use ANApatterns.org, the official website for the International Consensus on Antinuclear Antibody (BRETT) Patterns (ICAP). Performed By: #### A NAIFA #### [facility] [address] [place] [address] Dr. Venkat Sloan INSULINon 09-29-2021 Insulin 11.1 uIU/mL Normal 2.6-24.9 [facility] Comment on above: Performed By: #### T SH #### [facility] [address] [place] [address] Dr. Venkat Sloan ANTISTREPTOLYSIN O AB (ASO)o n 09-27-2021 Antistreptolysin O Ab <20.0 Normal 0.0-200.0 [facility] Comment on above: Performed By: #### P REGQNT #### [facility] [address] [place] [address] Dr. Venkat Sloan RHEUMATOID FACTORon 09-28-19 22 RA Latex Turbid. <10.0 Normal <14.0 [facility] Comment on above: Performed By: #### R F #### [facility] [address] [place] [address] Dr. Venkat Sloan CBC AUTO DIFFon 09-26-2021 BASO # 0.0 103/ul Normal 0.0-0.1 [facility] Comment on above: Performed By: #### T SH #### [facility] [address] [place] [address] Dr. Venkat Sloan Basophils/100 WBC (Bld) 0.3 % Normal 0.2-2.0 [facility] Comment on above: Performed By: #### T SH #### [facility] [address] [place] [address] Dr. Venkat Sloan EO # 0.1 103/ul Normal 0.0-0.7 [facility] Comment on above: Performed By: #### T SH #### [facility] [address] [place] [address] Dr. Venkat Sloan Eosinophils/100 WBC (Bld) 1.8 % Normal 0.9-7.0 [facility] Comment on above: Performed By: #### T SH #### [facility] [address] [place] [address] Dr. Venkat lSoan Erythrocyte distribution width (RBC) [Ratio] 12.9 % Normal 11.0-15.0 [facility] Comment on above: Performed By: #### T SH #### [facility] [address] [place] [address] Dr. Venkat Sloan Hematocrit (Bld) [Volume fraction] 39.8 % Normal 36.0-48.0 [facility] Comment on above: Performed By: #### T SH #### [facility] [address] [place] [address] Dr. Venkat Sloan Hemoglobin (Bld) [Mass/Vol] 12.7 g/dL Normal 12.0-16.0 [facility] Comment on above: Performed By: #### T SH #### [facility] [address] [place] [address] Dr. Venkat Sloan IG # 0.02 10e3/ul Normal 0.00-0.03 [facility] Comment on above: Performed By: #### T SH #### [facility] [address] [place] [address] Dr. Venkat Sloan IG % 0.3 % Normal 0.0-0.5 [facility] Comment on above: Performed By: #### T SH #### [facility] [address] [place] [address] Dr. Venkat Sloan LYMPH # 1.5 103/ul Normal 1.2-3.8 [facility] Comment on above: Performed By: #### T SH #### [facility] [address] [place] [address] Dr. Venkat Sloan Lymphocytes/100 WBC (Bld) 21.5 % Normal 20.5-60.0 [facility] Comment on above: Performed By: #### T SH #### [facility] [address] [place] [address] Dr. Venkat Sloan MANUAL DIFF REQ NO Normal [facility] Comment on above: Performed By: #### T SH #### [facility] [address] [place] [address] Dr. Venkat Sloan MCH (RBC) [Entitic mass] 28.5 pg Normal 26.7-34.0 [facility] Comment on above: Performed By: #### T SH #### [facility] [address] [place] [address] Dr. Venkat Sloan MCHC (RBC) [Mass/Vol] 31.9 g/dL Normal 29.9-35.2 [facility] Comment on above: Performed By: #### T SH #### [facility] [address] [place] [address] Dr. Venkat Sloan MCV (RBC) [Entitic vol] 89.2 fL Normal 81.0-99.0 [facility] Comment on above: Performed By: #### T SH #### [facility] [address] [place] [address] Dr. Venkat Sloan MONO # 0.5 103/ul Normal 0.3-0.8 [facility] Comment on above: Performed By: #### T SH #### [facility] [address] [place] [address] Dr. Venkat Sloan Monocytes/100 WBC (Bld) 7.6 % Normal 1.7-12.0 [facility] Comment on above: Performed By: #### T SH #### [facility] [address] [place] [address] Dr. Venkat Sloan NEUT # 4.9 103/ul Normal 1.4-6.5 [facility] Comment on above: Performed By: #### T SH #### [facility] [address] [place] [address] Dr. Venkat Sloan Neutrophils/100 WBC (Bld) 68.5 % Normal 43.0-75.0 [facility] Comment on above: Performed By: #### T SH #### [facility] [address] [place] [address] Dr. Venkat Sloan Platelet mean volume (Bld) [Entitic vol] 8.8 fL Critically low 9.5-13.5 [facility] Comment on above: Performed By: #### T SH #### [facility] [address] [address] [address] Venkat Sloan PLT 297 103/ul Normal 150-450 [facility] Comment on above: Performed By: #### T SH #### [facility] [address] [address] [address] Venkat Sloan RBC 4.46 106/ul Normal 4.20-5.40 [facility] Comment on above: Performed By: #### T SH #### [facility] [address] [address] [address] Venkat Sloan WBC 7.1 103/ul Normal 4.0-11.0 [facility] Comment on above: Performed By: #### T SH #### [facility] [address] [place] [address] Dr. Venkat Sloan CRPon 09-26-2021 CRP [Mass/Vol] mg/L Normal <=1.0 [facility] Comment on above: Performed By: #### P REGQNT #### [facility] [address] [place] [address] Dr. Venkat Sloan FREE THYROXINE INDEX T7on FTI 2.71 Normal 1.30-4.50 [facility] Comment on above: Performed By: #### P REGQNT #### [facility] [address] [place] [address] Dr. Venkat Sloan T3U 33.0 % Normal 30.0-39.0 [facility] Comment on above: Performed By: #### P REGQNT #### [facility] [address] [place] [address] Dr. Venkat Sloan T4 [Mass/Vol] 8.20 ug/dL Normal 4.80-13.90 [facility] Comment on above: Performed By: #### P REGQNT #### [facility] [address] [place] [address] Dr. Venkat Sloan GLYCOHEMOGLOBIN A1Con 2021 ADA RECOMMENDATION SEE BELOW Normal [facility] Comment on above: Result Comment: ADA RECOMMENDED LIMIT 4.0 - 6.0 ADA THERAPEUTIC TARGET < 7.0 ACTION SUGGESTED > 7.0 Performed By: #### I NFLUAB #### [facility] [address] [place] [address] Dr. Venkat Sloan Glucose [Mass/Vol] 105 mg/dL Normal [facility] Comment on above: Performed By: #### I NFLUAB #### [facility] [address] [address] [address] Venkat Sloan HbA1c (Bld) [Mass fraction] 5.3 % Normal 4.5-6.2 [facility] Comment on above: Performed By: #### I NFLUAB #### [facility] [address] [place] [address] Dr. Venkat Sloan IRONon 09-26-2021 Iron [Mass/Vol] 49.0 ug/dL Critically low 50.0-170.0 [facility] Comment on above: Performed By: #### P REGQNT #### [facility] [address] [place] [address] Dr. Venkat Sloan LIPID PROFILEon 09-26-2021 CHOL-HDL RATIO NORM SEE BELOW Normal [facility] Comment on above: Result Comment: 3.3 - 4.4 LOW RISK 4.4 - 7.1 AVERAGE RISK 7.1 - 11.0 MODERATE RISK >11.0 HIGH RISK Performed By: #### P REGQNT #### [facility] [address] [place] [address] Dr. Venkat Sloan Cholesterol [Mass/Vol] 197 mg/dL Normal <=200 [facility] Comment on above: Performed By: #### P REGQNT #### [facility] [address] [place] [address] Dr. Venkat Sloan Cholesterol in HDL [Mass/Vol] 64 mg/dL Critically high 40-60 [facility] Comment on above: Performed By: #### P REGQNT #### [facility] [address] [place] [address] Dr. Venkat Sloan Cholesterol in LDL [Mass/Vol] 123.4 mg/dL Normal [facility] Comment on above: Performed By: #### P REGQNT #### [facility] [address] [address] [address] Venkat Sloan Cholesterol.total/Choles terol in HDL [Mass ratio] 3.1 {ratio} Normal [facility] Comment on above: Performed By: #### P REGQNT #### [facility] [address] [address] [address] Venkat Sloan HDL NORMAL > or = 60 mg/dl - LO W CARDIOVASCULAR RISK <40 mg/dl - HIGH CARDIOVASCULAR RISK Normal [facility] Comment on above: Performed By: #### P REGQNT #### [facility] [address] [address] [address] Venkat Sloan LDL CALC NORMAL SEE BELOW Normal [facility] Comment on above: Result Comment: <100 mg/dl OPTIMAL 100 - 129 mg/dl NEAR OR ABOVE OPTIMAL 130 - 159 mg/dl BORDERLINE HIGH 160 - 189 mg/dl HIGH >190 mg/dl VERY HIGH Performed By: #### P REGQNT #### [facility] [address] [place] [address] Dr. Venkat Sloan Triglyceride [Mass/Vol] 48 mg/dL Normal <=150 [facility] Comment on above: Performed By: #### P REGQNT #### [facility] [address] [place] [address] Dr. Venkat Sloan VLDL CALC 9.6 mg/dL Normal [facility] Comment on above: Performed By: #### P REGQNT #### [facility] [address] [place] [address] Dr. Venkat Sloan PROF 14(COMP METB)on 022 Albumin [Mass/Vol] 4.0 g/dL Normal 3.4-5.0 [facility] Comment on above: Performed By: #### I NFLUAB #### [facility] [address] [place] [address] Dr. Venkat Sloan Albumin/Globulin [Mass ratio] 1.3 {ratio} Normal [facility] Comment on above: Performed By: #### I NFLUAB #### [facility] [address] [address] [address] Venkat Sloan ALP [Catalytic activity/Vol] 58 U/L Normal 46-116 [facility] Comment on above: Performed By: #### I NFLUAB #### [facility] [address] [place] [address] Dr. Venkat Sloan ALT [Catalytic activity/Vol] 20 U/L Normal 14-59 [facility] Comment on above: Performed By: #### I NFLUAB #### [facility] [address] [address] [address] Venkat Sloan Anion gap [Moles/Vol] 10.4 mmol/L Normal [facility] Comment on above: Performed By: #### I NFLUAB #### [facility] [address] [place] [address] Dr. Venkat Slaon AST [Catalytic activity/Vol] 11 U/L Critically low 15-37 [facility] Comment on above: Performed By: #### I NFLUAB #### [facility] [address] [place] [address] Dr. Venkat Sloan Bilirubin [Mass/Vol] 0.8 mg/dL Normal 0.2-1.0 [facility] Comment on above: Performed By: #### I NFLUAB #### [facility] [address] [place] [address] Dr. Venkat Sloan Calcium [Mass/Vol] 9.0 mg/dL Normal 8.5-10.1 [facility] Comment on above: Performed By: #### I NFLUAB #### [facility] [address] [place] [address] Dr. Venkat Sloan Chloride [Moles/Vol] 106 mmol/L Normal 98-107 [facility] Comment on above: Performed By: #### I NFLUAB #### [facility] [address] [address] [address] Venkat Sloan CO2 [Moles/Vol] 27.0 mmol/L Normal 21.0-32.0 [facility] Comment on above: Performed By: #### I NFLUAB #### [facility] [address] [place] [address] Dr. Venkat Sloan Creatinine [Mass/Vol] 0.70 mg/dL Normal 0.55-1.02 [facility] Comment on above: Performed By: #### I NFLUAB #### [facility] [address] [place] [address] Dr. Venkat Sloan EGFR-AF BAHAMIAN >60 Normal >=60 [facility] Comment on above: Performed By: #### I NFLUAB #### [facility] [address] [place] [address] Dr. Venkat Sloan EGFR-NON AF BAHAMIAN >60 Normal >=60 [facility] Comment on above: Performed By: #### I NFLUAB #### [facility] [address] [place] [address] Dr. Venkat Sloan Globulin (S) [Mass/Vol] 3.2 g/dL Normal [facility] Comment on above: Performed By: #### I NFLUAB #### [facility] [address] [place] [address] Dr. Venkat Sloan Glucose [Mass/Vol] 92 mg/dL Normal 74-106 [facility] Comment on above: Performed By: #### I NFLUAB #### [facility] [address] [place] [address] Dr. Veknat Sloan Potassium [Moles/Vol] 4.4 mmol/L Normal 3.5-5.1 [facility] Comment on above: Performed By: #### I NFLUAB #### [facility] [address] [place] [address] Dr. Venkat Sloan Protein [Mass/Vol] 7.2 g/dL Normal 6.4-8.2 [facility] Comment on above: Performed By: #### I NFLUAB #### [facility] [address] [place] [address] Dr. Venkat Sloan Sodium [Moles/Vol] 139 mmol/L Normal 136-145 [facility] Comment on above: Performed By: #### I NFLUAB #### [facility] [address] [place] [address] Dr. Venkat Sloan Urea nitrogen [Mass/Vol] 13.0 mg/dL Normal 7.0-18.0 [facility] Comment on above: Performed By: #### I NFLUAB #### [facility] [address] [address] [address] Venkat Sloan Urea nitrogen/Creatinine [Mass ratio] 18.6 mg/mg Normal [facility] Comment on above: Performed By: #### I NFLUAB #### [facility] [address] [address] [address] Venkat Sloan TSHon 09-26-2021 TSH 1.318 uIU/mL Normal 0.358-3.740 [facility] Comment on above: Performed By: #### P REGQNT #### [facility] [address] [place] [address] Dr. Venkat Sloan URIC ACID SERUMon 09-26-2021 Urate [Mass/Vol] 3.9 mg/dL Normal 2.6-6.0 [facility] Comment on above: Performed By: #### P REGQNT #### [facility] [address] [place] [address] Dr. Venkat Sloan XR CSPINE MIN 4 [...] DUDLEY HERNÁNDEZ Date: 2021-09-24 21:16 Normal [facility] PREG QUANT HCGon 08-17-2021 HCG QUANT <1 Normal [facility] Comment on above: Performed By: #### I NFLUAB #### [facility] [address] [place] [address] Dr. Venkat Sloan HCG RANGE SEE BELOW Normal [facility] Comment on above: Result Comment: 5-50 0-1 WEEK 40-300 1-2 WEEKS 100-1,000 2-3 WEEKS 500-6,000 3-4 WEEKS 5,000-200,000 1-2 MONTHS 10,000-100,000 2-3 MONTHS 3,000-50,000 2ND TRIMESTER 1,000-50,000 3RD TRIMESTER Performed By: #### I NFLUAB #### [facility] [address] [place] [address] Dr. Venkat Sloan US PELVIS AND TRANSVAGon [...] DUDLEY HERNÁNDEZ Date: 2021-08-17 07:01 Normal [facility] COVID Quick Testingon 2020 Result Negative [employer] Other Vital Signs Date Time Vital Sign Value Performing Clinician Facility 05-22-2023 09:0500 Body height 154.94 cm [facility] 05-22-2023 09:27-0500 Body mass index (BMI) [Ratio] 30.8 kg/m2 [facility] 05-22-2023 [id number] Body temperature 98.1 [degF] [facility] 05-22-2023 09:270500 Body weight 74.04 kg [facility] 05-22-2023 09:27-0500 Heart rate 78 /min [facility] 05-22-2023 09:27-0500 Respiratory rate 16 /min [facility] 05-22-2023 09:27-0500 SaO2% (BldA) [Mass fraction] 98 % [facility] 05-10-2023 15:14-0500 Body mass index (BMI) [Ratio] 30.04 kg/m2 Ricardo Jennifer DO Work Phone: [facility] 05-10-2023 15:14-0500 Body weight 72.12 kg Ricardo Jennifer DO Work Phone: [facility] 05-10-2023 15:14-0500 Diastolic blood pressure 70 mm[Hg] Ricardo Jennifer DO Work Phone: [facility] 05-10-2023 15:14-0500 Systolic blood pressure 110 mm[Hg] [email or web address] Work Phone: [facility] 01-27-2021 18:45-0400 Body height 154.94 cm Mohini Martinez Other [employer] Other 01-27-2021 18:45-0400 Body mass index (BMI) [Ratio] 28.34 kg/m2 Mohini Buttault Other [employer] Other 01-27-2021 18:45-0400 Body temperature 96.4 [degF] Mohini Juan Other [employer] Other 01-27-2021 18:45-0400 Body weight 68.04 kg Mohini Buttault Other [employer] Other 01-27-2021 18:45-0400 Respiratory rate 18 /min Mohini Buttault Other [employer] Other 01-27-2021 18:45-0400 SaO2% (BldA) [Mass fraction] 99 % Mohini Martinez Other [employer] Other 12-22-2020 11:45-0400 Body height 154.94 cm Dudley Freeman Other [employer] Other 12-22-2020 11:45-0400 Body mass index (BMI) [Ratio] 28.34 kg/m2 Dudley Freeman Other [employer] Other 12-22-2020 11:45-0400 Body weight 68.04 kg Dudley Freeman Other [employer] Other Encounters Encounter Date Encounter Type Care [...] Start: 05-22-2023 End: 05-22-2023 ambulatory [facility] Work Phone: Start: 05-22-2023 End: 05-22-2023 Patient encounter procedure [facility] Work Phone: [...] other preprocedural examination DR RICARDO RODRIGUEZ . [facility] Start: 07-08-2022 End: 07-08-[address] RICARDO RODRIGUEZ . Facility:[facility] Start: 06-30-2022 End: 07-01-[address] RICARDO RODIRGUEZ . Facility:[facility] Start: 06-30-2022 End: 07-01-2022 Encounter [...] abnormal findings DR IRON GARCIA . [facility] Start: 09-26-2021 End: 09-27-[address] [...] 01-27-2021 End: 01-27-2021 ambulatory Mohini Martinez Other [employer] Other Start: 01-27-2021 Office outpatient vi sit [...] AM EST Routine [facility] [address] [place] [id number] Ricardo Rodriguez, DO [address] [address] [facility] Start: 05-10-2023 End: 05-10-2024 [...] Immunization Date Immunization Notes [facility] influenza virus vacc ine, unspecified formulation Ricardo Rodriguez DO Work Phone: [facility] Healthcare Payers Date Payer Category Payer Unknown BCBS BCBS xxxxxx [id number] 2022-Present [phone] [address] [place] [address] [id number] 1993 Unknown [id number] 2.16.840.1.678133.3.579.2.593 1993 Unknown [id number] 2.16.840.1.982997.3.579.2.593 1993 Unknown [id number] 2.16.840.1.055548.3.579.2.593 1993 Unknown [id number] 2.16.840.1.188673.3.579.2.593 1993 Unknown [id number] 2.16.840.1.455409.3.579.2.593 1993 Unknown [id number] 2.16.840.1.915083.3.579.2.59 1993 Unknown [id number] 2.16.840.1.984022.3.579.2.593 1993 Unknown [id number] 2.16.840.1.838297.3.579.2.593 1993 Unknown [id number] 2.16.840.1.641573.3.579.2.59 1993 Unknown [id number] 2.16.840.1.729256.3.579.2.593 1993 Unknown [id number] 2.16.840.1.493472.3.579.2.59 1993 Unknown [id number] 2.16.840.1.687166.3.579.2.593 1993 Unknown [id number] 2.16.840.1.652053.3.579.2.59 1993 Unknown [id number] 2.16.840.1.230213.3.579.2.59 1993 Unknown [id number] 2.16.840.1.679569.3.579.2.593 1993 Unknown [id number] 2.16.840.1.724516.3.579.2.59 1993 Unknown [id number] 2.16.840.1.656195.3.579.2.593 1993 Unknown [id number] 2.16.840.1.019477.3.579.2.593 1993 Unknown [id number] 2.16.840.1.359671.3.579.2.593 1993 Unknown [id number] 2.16.840.1.585240.3.579.2.593 1993 Unknown [id number] 2.16.840.1.122945.3.579.2.593 1993 Unknown [id number] 2.16.840.1.964389.3.579.2.593 1993 Unknown [id number] 2.16.840.1.772345.3.579.2.59 1993 Unknown [id number] 2.16.840.1.879817.3.579.2.593 1993 Unknown [id number] 2.16.840.1.087514.3.579.2.59 1993 Unknown [id number] 2.16.840.1.972594.3.579.2.125 1993 Unknown [id number] 2.16.840.1.033914.3.579.2.1258 1993 Unknown [id number] 2.16.840.1.006274.3.579.2.1258 1993 Unknown [id number] 2.16.840.1.907747.3.579.2.1258 1993 Unknown [id number] 2.16.840.1.384119.3.579.2.125 1993 Unknown [id number] 2.16.840.1.828464.3.579.2.1258 1993 Unknown [id number] 2.16.840.1.691420.3.579.2.1258 1993 Unknown [id number] 2.16.840.1.152267.3.579.2.1258 1993 Unknown [id number] 2.16.840.1.258621.3.579.2.1259 1993 Unknown [id number] 2.16.840.1.266290.3.579.2.1259 1959 Unknown [id number] 1959 Unknown [id number] Self-pay Self Pay [id number] Unknown [id number] 2.16. 840.1.696566.19 Unknown O [id number] Unknown Venturia BC/BS [id number] Social History Date Type Detail Facility Unknown if ever smoked [employer] Other Start: 01-28-2023 Sex Assigned At [employer] Other Start: 01-28-2023 End: 05-22-2023 Tobacco smoking [...] nursing note reviewed. Exam conducted with a agricultural research technologist present. Vitals: Estimated body mass index is [...] Ricardo Rodriguez DO documented in this encounter [facility] Clinical Note 07-08-2022 Note Date & Type Note Facility 07-08-2022 Note OPERATIVE NOTE OPERATION DATE: 07/08/2022 PROCEDURE: Diagnostic laparoscopy with fulguration of ovarian endometrial implant. PREOPERATIVE DIAGNOSIS: Pelvic pain. POSTOPERATIVE DIAGNOSIS: Pelvic pain. ANESTHESIA: General. SURGEON: Ricardo Rodriguez D.O. AIR TECHNICIAN: DEVIN Miles URINE OUTPUT: Yellow and [...] to Recovery Room in stable condition. [facility] Evaluation note 12-22-2020 Note Date & Type Note Facility 12-22-2020 Evaluation note Encounter Date Diagnosis Assessment Notes Nov, Irritable bowel syndrome with both constipation and diarrhea (ICD-10 - K58.2) LABS INDICATED ABOVE START TRIAL OF DICYCLOMINE 20 BID RTO 4 WEEKS [employer] Other Evaluation note Note Date & Type Note Facility Evaluation note [facility] [employer] [facility] Other Evaluation note Note Date & Type Note Facility Evaluation note Diagnosis Second trimester state, incidental Diabetes mellitus screening Screening for diabetes mellitus documented in this encounter [facility] Evaluation note Note Date & Type Note Facility Evaluation note No assessment information availa [facility] Work Phone: History general Narrative - Reported Note Date & Type Note Facility History general Narrative - Reported Type Medical History anxiety/depression Medical History IBS Surgical History TONSILLECTOMY [employer] Other History general Narrative - Reported Note Date & Type Note Facility History general Narrative - Reported [employer] Other Summary Purpose Family History No Family [...] DATE CREATED AUTHOR AUTHOR'S ORGANLAUREL ATION 07/29/2023 [facility] [employer] Care Teams (unrecognized sec tion and content) 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 [facility]. provides no warranty or guarantee of the accuracy or completeness of information in this document.
[2023-08-04 19:05] VITALS: BP 111/70; PULSE 86
== END 2023-08-04 19:33 | disposition home or self-care (01) ==
LOC: FBCO 07:43 → FBC 19:00
PROVIDERS: PCP Family Medicine; Visit Provider Obstetrics & Gynecology
DX: O40.3XX0 Polyhydramnios, third trimester, not applicable or unspecified (principal)
CPT/HCPCS: 59025

== ENCOUNTER 2023-08-05 18:00 | Observation (INO) | payer BC, SELFPAY ==
[2023-08-05 18:28] VITALS: BP 127/83; PULSE 82
[2023-08-05 18:45] VITALS: BP 126/76; PULSE 75
[2023-08-05 19:00] VITALS: BP 134/85; PULSE 67
[2023-08-05 19:15] VITALS: BP 130/80; PULSE 63
[2023-08-05] MEDS: ACETAMINOPHEN 500 MG TABLET 1000 MG PO (19:34)
[2023-08-05 19:42] LABS: Bilirubin Urine NEGATIVE (NEGATIVE); Blood Urine NEGATIVE (NEGATIVE); Clarity Urine CLEAR (CLEAR); Color Urine LT. YELLOW (YELLOW); Glucose Urine UA NEGATIVE (NEGATIVE); Ketones Urine NEGATIVE (NEGATIVE); Leukocyte Esterase Urine MODERATE (NEGATIVE); Nitrite Urine NEGATIVE (NEGATIVE); Protein Urine NEGATIVE (NEG/TRACE); Specific Gravity Urine 1.015 (1.005-1.025); pH Urine 6.5 (5.0-9.0)
[2023-08-05 19:45] LABS: Urine Microscopic Indicated YES
[2023-08-05 19:48] LABS: Amorphous Sediment Urine MODERATE; Bacteria Urine LARGE #/HPF (NONE SEEN); Cast Seen? NONE SEEN #/LPF (NONE SEEN); Crystals Seen? Seen #/HPF (None Seen); Mucus Urine NONE SEEN (NONE SEEN); RBC Urine 0-2 #/HPF (0-2); Squamous Epithelial Cell Urine MANY #/LPF (NONE/RARE); Urine Culture Indicated YES
[2023-08-05 20:07] VITALS: BP 121/86; PULSE 65
== END 2023-08-05 20:28 | disposition home or self-care (01) ==
PROVIDERS: Admitting Provider Obstetrics & Gynecology; PCP Family Medicine; Visit Provider Obstetrics & Gynecology
DX: O26.893 Other specified pregnancy related conditions, third trimester (principal); R51.9 Headache, unspecified; Z3A.38 38 weeks gestation of pregnancy
CPT/HCPCS: 59025; 81001; 87086; G0378; G0379

== ENCOUNTER 2023-08-08 07:18 | Outpatient (OUT) | payer BC, SELFPAY ==
--- OUTSIDE RECORDS SUMMARY | 2023-08-08 07:26 | XMS_ITS | CCD ---
Author Organization [facility] Care Team Providers Care Agriculture Extension Specialist Name Role Phone Lydia Dudley Unavailable Mohini [...] Unavailable HOY ., DR PERDUE Consulting Unavailable [place], DR DUDLEY Emanuel Consulting Unavailable JENNIFER ., [...] HOY ., DR PERDUE Primary Care Unavailable Jose MORA, Iron Ch Primary Care Provider [phone] JENNIFER, RICARDO Attending Unavailable JENNIFER, RICARDO Attending Unavailable JENNIFER, RICARDO Attending Unavailable JENNIFER, RICARDO Attending Unavailable JENNIFER, RICARDO Attending Unavailable JENNIFER, RICARDO Attending Unavailable JENNIFER, RICARDO Attending Unavailable JENNIFER, RICARDO Attending Unavailable JENNIFER, RICARDO Attending Unavailable JENNIFER, RICARDO Attending Unavailable JENNIFER, RICARDO Attending Unavailable Medications Current Medications Medication Drug Class(es) Dates Sig (Normalized) Sig (Original) [id number] 200 actuat albuterol 0.09 mg/actuat metered dose [...] DAILY NEEDED FOR NAUSEA 0 02/19/2023 Active Dksrrm37-Vykv Fum-Folic Ac-Om3 (One A Day Women's Dha) 28 mg iron- 800 mcg combo pack (1 source) Start: 05-22-2023 Fkivwn28-Mtoj Fum-Folic Ac-Om3 (One A Day Women's Dha) [...] exposure to other viral communicable diseases Onset: 11-02-2021 Resolved: 01-27-2021 Episodic Nausea and vomiting (2 [...] SARS-CoV-2 (COVID-19) RNA SHIRIN+probe Ql (Unsp spec) [facility] Urinalysis macro (dipstick) panel (U)on 05-10-2023 Bilirubin, UA Negative Negative - 4(70) +++ mg/dL [facility] Blood, UA Negative Negative - 50 Jayson/mcL [facility] Clarity, UA Clear [facility] Color, UA Yellow [facility] Glucose, UA Negative Negative - 1999(110) ++++ mg/dL [facility] Interpretation and review of laboratory results Abnormal [facility] Ketones, UA Positive Negative - 160(16) ++++ mg/dL [facility] Comment on above: trace Leukocytes, UA Trace Negative - 500+++ Lolita/mcL [facility] Nitrite, UA Negative Negative - Positive [facility] pH, UA 6.0 5 - 9 [facility] Protein, UA Negative Negative - 1999(20) ++++ mg/dL [facility] Spec Grav, UA 1.030 1 - 1.03 [facility] Urobilinogen, UA 0.2 0.2 - 12 mg/dL [facility] CBC AUTO DIFFon 07-08-2022 BASO # 0.0 103/ul Normal 0.0-0.1 [facility] Comment on above: Performed By: #### R F #### [facility] [address] [place] [address] Dr. Venkat Sloan Basophils/100 WBC (Bld) 0.5 % Normal 0.2-2.0 [facility] Comment on above: Performed By: #### R F #### [facility] [address] [place] [address] Dr. Venkat Sloan EO # 0.1 103/ul Normal 0.0-0.7 [facility] Comment on above: Performed By: #### R F #### [facility] [address] [place] [address] Dr. Venkat Sloan Eosinophils/100 WBC (Bld) 1.7 % Normal 0.9-7.0 [facility] Comment on above: Performed By: #### R F #### [facility] [address] [place] [address] Dr. Venkta Sloan Erythrocyte distribution width (RBC) [Ratio] 12.7 % Normal 11.0-15.0 [facility] Comment on above: Performed By: #### R F #### [facility] [address] [place] [address] Dr. Venkat Sloan Hematocrit (Bld) [Volume fraction] 40.4 % Normal 36.0-48.0 [facility] Comment on above: Performed By: #### R F #### [facility] [address] [place] [address] Dr. Venkat Sloan Hemoglobin (Bld) [Mass/Vol] 13.1 g/dL Normal 12.0-16.0 [facility] Comment on above: Performed By: #### R F #### [facility] [address] [place] [address] Dr. Venkat Sloan IG # 0.02 10e3/ul Normal 0.00-0.03 [facility] Comment on above: Performed By: #### R F #### [facility] [address] [place] [address] Dr. Venkat Sloan IG % 0.3 % Normal 0.0-0.5 [facility] Comment on above: Performed By: #### R F #### [facility] [address] [place] [address] Dr. Venkat Sloan LYMPH # 2.0 103/ul Normal 1.2-3.8 [facility] Comment on above: Performed By: #### R F #### [facility] [address] [place] [address] Dr. Venkat Sloan Lymphocytes/100 WBC (Bld) 26.2 % Normal 20.5-60.0 [facility] Comment on above: Performed By: #### R F #### [facility] [address] [place] [address] Dr. Venkat Sloan MANUAL DIFF REQ NO Normal [facility] Comment on above: Performed By: #### R F #### [facility] [address] [place] [address] Dr. Venkat Sloan MCH (RBC) [Entitic mass] 28.4 pg Normal 26.7-34.0 [facility] Comment on above: Performed By: #### R F #### [facility] [address] [place] [address] Dr. Venkat Sloan MCHC (RBC) [Mass/Vol] 32.4 g/dL Normal 29.9-35.2 [facility] Comment on above: Performed By: #### R F #### [facility] [address] [place] [address] Dr. Venkat Sloan MCV (RBC) [Entitic vol] 87.4 fL Normal 81.0-99.0 [facility] Comment on above: Performed By: #### R F #### [facility] [address] [place] [address] Dr. Venkat Sloan MONO # 0.7 103/ul Normal 0.3-0.8 [facility] Comment on above: Performed By: #### R F #### [facility] [address] [place] [address] Dr. Venkat Sloan Monocytes/100 WBC (Bld) 8.8 % Normal 1.7-12.0 [facility] Comment on above: Performed By: #### R F #### [facility] [address] [place] [address] Dr. Venkat Sloan NEUT # 4.8 103/ul Normal 1.4-6.5 [facility] Comment on above: Performed By: #### R F #### [facility] [address] [place] [address] Dr. Venkat Sloan Neutrophils/100 WBC (Bld) 62.5 % Normal 43.0-75.0 [facility] Comment on above: Performed By: #### R F #### [facility] [address] [place] [address] Dr. Venkat Sloan Platelet mean volume (Bld) [Entitic vol] 8.5 fL Critically low 9.5-13.5 [facility] Comment on above: Performed By: #### R F #### [facility] [address] [place] [address] Dr. Venkat Sloan PLT 331 103/ul Normal 150-450 [facility] Comment on above: Performed By: #### R F #### [facility] [address] [place] [address] Dr. Venkat Sloan RBC 4.62 106/ul Normal 4.20-5.40 [facility] Comment on above: Performed By: #### R F #### [facility] [address] [place] [address] Dr. Venkat Sloan WBC 7.7 103/ul Normal 4.0-11.0 [facility] Comment on above: Performed By: #### R F #### [facility] [address] [place] [address] Dr. Venkat Sloan PREG QUANT HCGon 07-08-2022 HCG QUANT <1 Normal [facility] Comment on above: Performed By: #### P REGQNT #### [facility] [address] [place] [address] Dr. Venkat Sloan HCG RANGE SEE BELOW Normal [facility] Comment on above: Result Comment: 5-50 0.2-1 WEEK 50-500 1-2 WEEKS 100-5,000 2-3 WEEKS 500-10,000 3-4 WEEKS 1,000-50,000 4-5 WEEKS 10,000-100,000 5-6 WEEKS 15,000-200,000 6-8 WEEKS 10,000-100,000 2-3 MONTHS Performed By: #### P REGQNT #### [facility] [address] [place] [address] Dr. Venkat Sloan PROGESTERONEon 06-23-2022 Progesterone 5.7 ng/mL Normal [facility] Comment on above: Result Comment: Foll icular phase 0.1 - 0.9 Luteal phase 1.8 - 23.9 Ovulation phase 0.1 - 12.0 First trimester 11.0 - 44.3 Second trimester 25.4 - 83.3 Third trimester 58.7 - 214.0 Postmenopausal 0.0 - 0.1 Performed By: #### T SH #### [facility] [address] [place] [address] Dr. Venkat Sloan PREG QUANT HCGon 05-31-2022 HCG QUANT 1 mIU/mL Normal [facility] Comment on above: Performed By: #### P REGQNT #### [facility] [address] [place] [address] Dr. Venkat Sloan HCG RANGE SEE BELOW [facility] Comment on above: Result Comment: 5-50 0.2-1 WEEK 50-500 1-2 WEEKS 100-5,000 2-3 WEEKS 500-10,000 3-4 WEEKS 1,000-50,000 4-5 WEEKS 10,000-100,000 5-6 WEEKS 15,000-200,000 6-8 WEEKS 10,000-100,000 2-3 MONTHS Performed By: #### P REGQNT #### [facility] [address] [place] [address] Dr. Venkat Sloan PROGESTERONEon 05-21-2022 Progesterone 12.4 ng/mL Normal [facility] Comment on above: Result Comment: Foll icular phase 0.1 - 0.9 Luteal phase 1.8 - 23.9 Ovulation phase 0.1 - 12.0 First trimester 11.0 - 44.3 Second trimester 25.4 - 83.3 Third trimester 58.7 - 214.0 Postmenopausal 0.0 - 0.1 Performed By: #### I NFLUAB #### [facility] [address] [place] [address] Dr. Venkat Sloan MRI BRAIN WO W [...] VELA Date: 2022-05-04 08:42 Normal [facility] PREG QUANT HCGon 05-04-2022 HCG QUANT <1 Normal [facility] Comment on above: Performed By: #### R F #### [facility] [address] [address] [address] Venkat Sloan HCG RANGE SEE BELOW Normal [facility] Comment on above: Result Comment: 5-50 0.2-1 WEEK 50-500 1-2 WEEKS 100-5,000 2-3 WEEKS 500-10,000 3-4 WEEKS 1,000-50,000 4-5 WEEKS 10,000-100,000 5-6 WEEKS 15,000-200,000 6-8 WEEKS 10,000-100,000 2-3 MONTHS Performed By: #### R F #### [facility] [address] [address] [address] Venkat Sloan XR HYSTEROSALPINGOGRAMon XR HYSTEROSALPINGOGRAM [...] VELA Date: 2022-05-04 16:09 Normal [facility] PROGESTERONEon 04-24-2022 Progesterone 0.4 ng/mL Normal [facility] Comment on above: Result Comment: Foll icular phase 0.1 - 0.9 Luteal phase 1.8 - 23.9 Ovulation phase 0.1 - 12.0 First trimester 11.0 - 44.3 Second trimester 25.4 - 83.3 Third trimester 58.7 - 214.0 Postmenopausal 0.0 - 0.1 Performed By: #### I NFLUAB #### [facility] [address] [address] [address] Venkat Sloan CULTURE SPUTUMon 04-02-2022 CULTURE SPUTUM Culture Observations : NORMAL RESPIRATORY NATALEE. Normal [facility] Comment on above: Performed By: #### R F #### [facility] [address] [address] [address] Venkat Sloan SPUTUM GRAM STAINon 04-02-19 23 COMMENTS Normal [facility] Comment on above: Performed By: #### R F #### [facility] [address] [address] [address] Venkat Sloan DIPHTHEROIDS Normal [facility] Comment on above: Performed By: #### R F #### [facility] [address] [address] [address] Venkat Sloan EPITHELIALS <25 Normal [facility] Comment on above: Performed By: #### R F #### [facility] [address] [address] [address] Venkat Sloan FUNGAL ELEMENTS Normal [facility] Comment on above: Performed By: #### R F #### [facility] [address] [address] [address] Venkat Sloan GRAM NEG BACILLI RARE Normal [facility] Comment on above: Performed By: #### R F #### [facility] [address] [place] [address] Dr. Venkat Sloan GRAM NEG DIPPLOCOCCI Normal [facility] Comment on above: Performed By: #### R F #### [facility] [address] [place] [address] Dr. Venkat Sloan GRAM POS BACILLI Normal [facility] Comment on above: Performed By: #### R F #### [facility] [address] [place] [address] Dr. Venkat Sloan GRAM POSITIVE COCCI RARE Normal [facility] Comment on above: Performed By: #### R F #### [facility] [address] [place] [address] Dr. Venkat Sloan WBC (Bld) [#/Vol] 10*3/uL Normal [facility] Comment on above: Performed By: #### R F #### [facility] [address] [place] [address] Dr. Venkat Sloan [facility] SARS-CoV-2 (COVID-19) RNA SHIRIN+probe Ql (Unsp spec) Not detected Normal NOT DETECTED [facility] Comment on above: Result Comment: This test is not yet approved or cleared by the [place] FDA. When there are no FDA-approved or cleared tests available, and other criteria are met, FDA can make tests available under an emergency access mechanism called an Emergency Use Authorization (EUA). The EUA for this test is supported by the Manager Culture of Health and Human Service's (HHS's) declaration [...] Performed By: #### P REGQNT #### [facility] [address] [place] [address] Dr. Venkat Sloan INFLUENZA A AND B AGon 04-01 [facility] SEE BELOW Normal [facility] Comment on above: Result Comment: Nega tive for Flu A protein angiten. Infection due to Flu A cannot be ruled out. Flu A angiten in the sample may be below the detection limit of the test. Performed By: #### I NFLUAB #### [facility] [address] [place] [address] Dr. Venkat Sloan INFLUBNEG SEE BELOW Normal [facility] Comment on above: Result Comment: Nega tive for Flu B protein antigen. Infection due to Flu B cannot be ruled out. Flu B antigen in the sample may be below the detection limit of the test. Performed By: #### I NFLUAB #### [facility] [address] [place] [address] Dr. Venkat Sloan INFLUENZA A AG Negative Normal NEGATIVE SEE COMMENT [facility] Comment on above: Performed By: #### I NFLUAB #### [facility] [address] [place] [address] Dr. Venkat Sloan INFLUENZA B AG Negative Normal NEGATIVE SEE COMMENT [facility] Comment on above: Performed By: #### I NFLUAB #### [facility] [address] [place] [address] Dr. Venkat Sloan XR CHEST 2 Von [...] LANE Date: 2022-03-24 12:33 Normal [facility]on 02-25 SARS-CoV-2 (COVID-19) RNA SHIRIN+probe Ql (Unsp spec) Not detected Normal NOT DETECTED [facility] Comment on above: Result [...] for this test is supported by the Manager Culture of Health and Human Service's declaration that [...] Performed By: #### R F #### [facility] [address] [place] [address] Dr. Venkat Sloan INFLUENZA A AND B [facility] 03-15 [facility] SEE BELOW Normal [facility] Comment on above: Result Comment: Nega tive for Flu A protein angiten. Infection due to Flu A cannot be ruled out. Flu A angiten in the sample may be below the detection limit of the test. Performed By: #### I NFLUAB #### [facility] [address] [place] [address] Dr. Venkat [facility] Normal [facility] Comment on above: Result Comment: Nega tive for Flu B protein antigen. Infection due to Flu B cannot be ruled out. Flu B antigen in the sample may be below the detection limit of the test. Performed By: #### I NFLUAB #### [facility] [address] [place] [address] Dr. Venkat Sloan INFLUENZA A AG Negative Normal NEGATIVE SEE COMMENT [facility] Comment on above: Performed By: #### I NFLUAB #### [facility] [address] [place] [address] Dr. Venkat Sloan INFLUENZA B AG Negative Normal NEGATIVE SEE COMMENT [facility] Comment on above: Performed By: #### I NFLUAB #### [facility] [address] [place] [address] Dr. Venkat Sloan INTERNAL CONTROLS Within Normal Limits Normal Wi thin Normal Limits [facility] Comment on above: Performed By: #### I NFLUAB #### [facility] [address] [place] [address] Dr. Venkat Sloan Covid-19 PCR ([facility])on 02-25 SARS-CoV-2 (COVID-19) RNA SHIRIN+probe Ql (Unsp spec) Not detected Normal NOT DETECTED [facility] Comment on above: Result [...] for this test is supported by the Manager Culture of Health and Human Service's declaration that [...] Performed By: #### I NFLUAB #### [facility] [address] [place] [address] Dr. Venkat Sloan INFLUENZA A AND B AGon 03-12 [facility] SEE BELOW Normal [facility] Comment on above: Result Comment: Nega tive for Flu A protein angiten. Infection due to Flu A cannot be ruled out. Flu A angiten in the sample may be below the detection limit of the test. Performed By: #### I NFLUAB #### [facility] [address] [place] [address] Dr. Venkat Sloan INFLUBNEGH SEE BELOW Normal [facility] Comment on above: Result Comment: Nega tive for Flu B protein antigen. Infection due to Flu B cannot be ruled out. Flu B antigen in the sample may be below the detection limit of the test. Performed By: #### I NFLUAB #### [facility] [address] [address] [address] Venkat Sloan INFLUENZA A AG Negative Normal NEGATIVE SEE COMMENT [facility] Comment on above: Performed By: #### I NFLUAB #### [facility] [address] [address] [address] Venkat Sloan INFLUENZA B AG Negative Normal NEGATIVE SEE COMMENT [facility] Comment on above: Performed By: #### I NFLUAB #### [facility] [address] [address] [address] Venkat Sloan INTERNAL CONTROLS Within Normal Limits Normal Wi thin Normal Limits [facility] Comment on above: Performed By: #### I NFLUAB #### [facility] [address] [place] [address] Dr. Venkat Sloan PROGESTERONEon 02-20-2022 Progesterone 0.3 ng/mL Normal [facility] Comment on above: Result Comment: Foll icular phase 0.1 - 0.9 Luteal phase 1.8 - 23.9 Ovulation phase 0.1 - 12.0 First trimester 11.0 - 44.3 Second trimester 25.4 - 83.3 Third trimester 58.7 - 214.0 Postmenopausal 0.0 - 0.1 Performed By: #### R F #### [facility] [address] [place] [address] Dr. Venkat Sloan ACTH STIMULATIONon 2 Andros Baseline 49 ng/dL Normal 41-262 [facility] Comment on above: Performed By: #### R F #### [facility] [address] [address] [address] Venkat Sloan Andros Stimulated 82 ng/dL Normal Not Estab. [facility] Comment on above: Performed By: #### R F #### [facility] [address] [place] [address] Dr. Venkat Sloan Covid-19 PCR ([facility])on 01-26 SARS-CoV-2 (COVID-19) RNA SHIRIN+probe Ql (Unsp spec) Not detected Normal NOT DETECTED [facility] Comment on above: Result Comment: This test is not yet approved or cleared by the [place] FDA. When there are no FDA-approved or cleared tests available, and other criteria are met, FDA can make tests available under an emergency access mechanism called an Emergency Use Authorization (EUA). The EUA for this test is supported by the Manager Culture of Health and Human Service's (HHS's) declaration [...] Performed By: #### I NFLUAB #### [facility] [address] [place] [address] Dr. Venkat Sloan INFLUENZA A AND B [facility] 02-10 [facility] SEE BELOW Normal [facility] Comment on above: Result Comment: Nega tive for Flu A protein angiten. Infection due to Flu A cannot be ruled out. Flu A angiten in the sample may be below the detection limit of the test. Performed By: #### P REGQNT #### [facility] [address] [place] [address] Dr. Venkat [facility] SEE BEL[facility] Normal [facility] Comment on above: Result Comment: Nega tive for Flu B protein antigen. Infection due to Flu B cannot be ruled out. Flu B antigen in the sample may be below the detection limit of the test. Performed By: #### P REGQNT #### [facility] [address] [place] [address] Dr. Venkat Sloan INFLUENZA A AG Negative Normal NEGATIVE SEE COMMENT [facility] Comment on above: Performed By: #### P REGQNT #### [facility] [address] [place] [address] Dr. Venkat Sloan INFLUENZA B AG Negative Normal NEGATIVE SEE COMMENT [facility] Comment on above: Performed By: #### P REGQNT #### [facility] [address] [address] [address] Venkat Sloan INTERNAL CONTROLS Within Normal Limits Normal Wi thin Normal Limits [facility] Comment on above: Performed By: #### P REGQNT #### [facility] [address] [address] [address] Venkat Sloan DHEA SERUMon 01-19-2022 Dehydroepiandrosterone (DHEA) 82 ng/dL Normal 31-701 [facility] [...] Performed By: #### T SH #### [facility] [address] [address] [address] Venkat Sloan DHEA-SULFATEon 01-14-2022 DHEA-Sulfate 34.0 ug/dL Critically low 84.8-378.0 [facility] Comment on above: Performed By: #### R F #### [facility] [address] [place] [address] Dr. Venkat Sloan FSHon 01-14-2022 FSH 2.2 mIU/mL Normal [facility] Comment on above: Result Comment: Adul t Female: Follicular phase 3.5 - 12.5 Ovulation phase 4.7 - 21.5 Luteal phase 1.7 - 7.7 Postmenopausal 25.8 - 134.8 Performed By: #### L BCFS #### [facility] [address] [address] [address] Venkat Sloan LUTEINIZING HORMONE (LH)on LH 5.1 mIU/mL Normal [facility] Comment on above: Result Comment: Adul t Female: Follicular phase 2.4 - 12.6 Ovulation phase 14.0 - 95.6 Luteal phase 1.0 - 11.4 Postmenopausal 7.7 - 58.5 Performed By: #### I NFLUAB #### [facility] [address] [place] [address] Dr. Venkat Sloan PROLACTINon 01-14-2022 Prolactin 8.0 ng/mL Normal 4.8-23.3 [facility] Comment on above: Performed By: #### P ROLAC #### [facility] [address] [place] [address] Dr. Venkat Sloan CBC AUTO DIFFon 01-13-2022 BASO # 0.0 103/ul Normal 0.0-0.1 [facility] Comment on above: Performed By: #### T SH #### [facility] [address] [place] [address] Dr. Venkat Sloan Basophils/100 WBC (Bld) 0.4 % Normal 0.2-2.0 [facility] Comment on above: Performed By: #### T SH #### [facility] [address] [place] [address] Dr. Venkat Sloan EO # 0.1 103/ul Normal 0.0-0.7 [facility] Comment on above: Performed By: #### T SH #### [facility] [address] [place] [address] Dr. Venkat Sloan Eosinophils/100 WBC (Bld) 1.2 % Normal 0.9-7.0 [facility] Comment on above: Performed By: #### T SH #### [facility] [address] [place] [address] Dr. Venkat Sloan Erythrocyte distribution width (RBC) [Ratio] 12.7 % Normal 11.0-15.0 [facility] Comment on above: Performed By: #### T SH #### [facility] [address] [place] [address] Dr. Venkat Sloan Hematocrit (Bld) [Volume fraction] 41.1 % Normal 36.0-48.0 [facility] Comment on above: Performed By: #### T SH #### [facility] [address] [place] [address] Dr. Venkat Sloan Hemoglobin (Bld) [Mass/Vol] 13.1 g/dL Normal 12.0-16.0 [facility] Comment on above: Performed By: #### T SH #### [facility] [address] [place] [address] Dr. Venkat Sloan IG # 0.03 10e3/ul Normal 0.00-0.03 [facility] Comment on above: Performed By: #### T SH #### [facility] [address] [place] [address] Dr. Venkat Sloan IG % 0.3 % Normal 0.0-0.5 [facility] Comment on above: Performed By: #### T SH #### [facility] [address] [place] [address] Dr. Venkat Sloan LYMPH # 1.6 103/ul Normal 1.2-3.8 [facility] Comment on above: Performed By: #### T SH #### [facility] [address] [place] [address] Dr. Venkat Sloan Lymphocytes/100 WBC (Bld) 15.0 % Critically low 20.5-60.0 [facility] Comment on above: Performed By: #### T SH #### [facility] [address] [place] [address] Dr. Venkat Sloan MANUAL DIFF REQ NO Normal [facility] Comment on above: Performed By: #### T SH #### [facility] [address] [place] [address] Dr. Venkat Sloan MCH (RBC) [Entitic mass] 28.5 pg Normal 26.7-34.0 [facility] Comment on above: Performed By: #### T SH #### [facility] [address] [place] [address] Dr. Venkat Sloan MCHC (RBC) [Mass/Vol] 31.9 g/dL Normal 29.9-35.2 [facility] Comment on above: Performed By: #### T SH #### [facility] [address] [place] [address] Dr. Venkat Sloan MCV (RBC) [Entitic vol] 89.3 fL Normal 81.0-99.0 [facility] Comment on above: Performed By: #### T SH #### [facility] [address] [address] [address] Venkat Sloan MONO # 0.9 103/ul Critically high 0.3-0.8 [facility] Comment on above: Performed By: #### T SH #### [facility] [address] [address] [address] Venkat Sloan Monocytes/100 WBC (Bld) 8.8 % Normal 1.7-12.0 [facility] Comment on above: Performed By: #### T SH #### [facility] [address] [place] [address] Dr. Venkat Sloan NEUT # 7.9 103/ul Critically high 1.4-6.5 [facility] Comment on above: Performed By: #### T SH #### [facility] [address] [place] [address] Dr. Venkat Sloan Neutrophils/100 WBC (Bld) 74.3 % Normal 43.0-75.0 [facility] Comment on above: Performed By: #### T SH #### [facility] [address] [place] [address] Dr. Venkat Sloan Platelet mean volume (Bld) [Entitic vol] 9.2 fL Critically low 9.5-13.5 [facility] Comment on above: Performed By: #### T SH #### [facility] [address] [place] [address] Dr. Venkat Sloan PLT 300 103/ul Normal 150-450 [facility] Comment on above: Performed By: #### T SH #### [facility] [address] [place] [address] Dr. Venkat Sloan RBC 4.60 106/ul Normal 4.20-5.40 [facility] Comment on above: Performed By: #### T SH #### [facility] [address] [place] [address] Dr. Venkat Sloan WBC 10.7 103/ul Normal 4.0-11.0 [facility] Comment on above: Performed By: #### T SH #### [facility] [address] [place] [address] Dr. Venkat Sloan GLYCOHEMOGLOBIN A1Con 2021 ADA RECOMMENDATION SEE BELOW Normal [facility] Comment on above: Result Comment: ADA RECOMMENDED LIMIT 4.0 - 6.0 ADA THERAPEUTIC TARGET < 7.0 ACTION SUGGESTED > 7.0 Performed By: #### P REGQNT #### [facility] [address] [address] [address] Venkat Sloan Glucose [Mass/Vol] 100 mg/dL Normal [facility] Comment on above: Performed By: #### P REGQNT #### [facility] [address] [address] [address] Venkat Sloan HbA1c (Bld) [Mass fraction] 5.1 % Normal 4.5-6.2 [facility] Comment on above: Performed By: #### P REGQNT #### [facility] [address] [place] [address] Dr. Venkat Sloan TSHon 01-13-2022 TSH 1.098 uIU/mL Normal 0.358-3.740 [facility] Comment on above: Performed By: #### T SH #### [facility] [address] [place] [address] Dr. Venkat Sloan Covid-19 PCR ([facility])on 12-26 SARS-CoV-2 (COVID-19) RNA SHIRIN+probe Ql (Unsp spec) Not detected Normal NOT DETECTED [facility] Comment on above: Result Comment: This test is not yet approved or cleared by the [place] FDA. When there are no FDA-approved or cleared tests available, and other criteria are met, FDA can make tests available under an emergency access mechanism called an Emergency Use Authorization (EUA). The EUA for this test is supported by the [place] of Health and Human Service's (HHS's) declaration [...] Performed By: #### I NFLUAB #### [facility] [address] [place] [address] Dr. Venkat Sloan PREG QUANT HCGon 12-24-2021 HCG QUANT <1 Normal [facility] Comment on above: Performed By: #### P REGQNT #### [facility] [address] [place] [address] Dr. Venkat Sloan HCG RANGE SEE BELOW Normal [facility] Comment on above: Result Comment: 5-50 0.2-1 WEEK 50-500 1-2 WEEKS 100-5,000 2-3 WEEKS 500-10,000 3-4 WEEKS 1,000-50,000 4-5 WEEKS 10,000-100,000 5-6 WEEKS 15,000-200,000 6-8 WEEKS 10,000-100,000 2-3 MONTHS Performed By: #### P REGQNT #### [facility] [address] [place] [address] Dr. Venkat Sloan HCG-BETA SUBUNIT QUANTon hCG,Beta Subunit,Qnt,Serum <1 Normal [facility] Comment on above: Result Comment: Fema le (Non-) 0 - 5 (Postmenopausal) 0 - 8 . Female () Weeks of Gestation 3 6 - 71 4 10 - 750 5 217 - 7138 6 158 - 49811 7 [id number] 8 [phone] 9 [phone] 10 96101 -[phone] 12 21297 -[phone] 14 01978 - 57553 15 82815 - 89272 16 2134 - 16695 17 1466 - 68426 18 [phone] - [phone] Aj ECLIA methodology Performed By: #### T SH #### [facility] [address] [place] [address] Dr. Venkat Sloan BRETT by IFAon 09-29-2021 Antinuclear Antibodies, IFA Negative Normal [facility] Comment on above: Result Comment: Nega tive <1:80 Borderline 1:80 Positive >1:80 ICAP nomenclature: AC-0 For more information about Hep-2 cell patterns use ANApatterns.org, the official website for the International Consensus on Antinuclear Antibody (BRETT) Patterns (ICAP). Performed By: #### A NAIFA #### [facility] [address] [place] [address] Dr. Venkat Sloan INSULINon 09-29-2021 Insulin 11.1 uIU/mL Normal 2.6-24.9 [facility] Comment on above: Performed By: #### T SH #### [facility] [address] [place] [address] Dr. Venkat Sloan ANTISTREPTOLYSIN O AB (ASO)o n 09-27-2021 Antistreptolysin O Ab <20.0 Normal 0.0-200.0 [facility] Comment on above: Performed By: #### P REGQNT #### [facility] [address] [place] [address] Dr. Venkat Sloan RHEUMATOID FACTORon 09-28-19 RA Latex Turbid. <10.0 Normal <14.0 [facility] Comment on above: Performed By: #### R F #### [facility] [address] [place] [address] Dr. Venkat Sloan CBC AUTO DIFFon 09-26-2021 BASO # 0.0 103/ul Normal 0.0-0.1 [facility] Comment on above: Performed By: #### T SH #### [facility] [address] [place] [address] Dr. Venkat Sloan Basophils/100 WBC (Bld) 0.3 % Normal 0.2-2.0 [facility] Comment on above: Performed By: #### T SH #### [facility] [address] [place] [address] Dr. Venkat Sloan EO # 0.1 103/ul Normal 0.0-0.7 [facility] Comment on above: Performed By: #### T SH #### [facility] [address] [place] [address] Dr. Venkat Sloan Eosinophils/100 WBC (Bld) 1.8 % Normal 0.9-7.0 [facility] Comment on above: Performed By: #### T SH #### [facility] [address] [place] [address] Dr. Venkat Sloan Erythrocyte distribution width (RBC) [Ratio] 12.9 % Normal 11.0-15.0 [facility] Comment on above: Performed By: #### T SH #### [facility] [address] [place] [address] Dr. Venkat Sloan Hematocrit (Bld) [Volume fraction] 39.8 % Normal 36.0-48.0 [facility] Comment on above: Performed By: #### T SH #### [facility] [address] [place] [address] Dr. Venkat Sloan Hemoglobin (Bld) [Mass/Vol] 12.7 g/dL Normal 12.0-16.0 [facility] Comment on above: Performed By: #### T SH #### [facility] [address] [place] [address] Dr. Venkat Sloan IG # 0.02 10e3/ul Normal 0.00-0.03 [facility] Comment on above: Performed By: #### T SH #### [facility] [address] [place] [address] Dr. Venkat Slona IG % 0.3 % Normal 0.0-0.5 [facility] Comment on above: Performed By: #### T SH #### [facility] [address] [place] [address] Dr. Venkat Sloan LYMPH # 1.5 103/ul Normal 1.2-3.8 [facility] Comment on above: Performed By: #### T SH #### [facility] [address] [place] [address] Dr. Venkat Sloan Lymphocytes/100 WBC (Bld) 21.5 % Normal 20.5-60.0 [facility] Comment on above: Performed By: #### T SH #### [facility] [address] [place] [address] Dr. Venkat Sloan MANUAL DIFF REQ NO Normal [facility] Comment on above: Performed By: #### T SH #### [facility] [address] [address] [address] Venkat Sloan MCH (RBC) [Entitic mass] 28.5 pg Normal 26.7-34.0 [facility] Comment on above: Performed By: #### T SH #### [facility] [address] [place] [address] Dr. Venkat Sloan MCHC (RBC) [Mass/Vol] 31.9 g/dL Normal 29.9-35.2 [facility] Comment on above: Performed By: #### T SH #### [facility] [address] [place] [address] Dr. Venkat Sloan MCV (RBC) [Entitic vol] 89.2 fL Normal 81.0-99.0 [facility] Comment on above: Performed By: #### T SH #### [facility] [address] [place] [address] Dr. Venkat Sloan MONO # 0.5 103/ul Normal 0.3-0.8 [facility] Comment on above: Performed By: #### T SH #### [facility] [address] [place] [address] Dr. Venkat Sloan Monocytes/100 WBC (Bld) 7.6 % Normal 1.7-12.0 [facility] Comment on above: Performed By: #### T SH #### [facility] [address] [place] [address] Dr. Venkat Sloan NEUT # 4.9 103/ul Normal 1.4-6.5 [facility] Comment on above: Performed By: #### T SH #### [facility] [address] [place] [address] Dr. Venkat Sloan Neutrophils/100 WBC (Bld) 68.5 % Normal 43.0-75.0 [facility] Comment on above: Performed By: #### T SH #### [facility] [address] [place] [address] Dr. Venkat Sloan Platelet mean volume (Bld) [Entitic vol] 8.8 fL Critically low 9.5-13.5 [facility] Comment on above: Performed By: #### T SH #### [facility] [address] [address] [address] Venkat Sloan PLT 297 103/ul Normal 150-450 [facility] Comment on above: Performed By: #### T SH #### [facility] [address] [address] [address] Venkat Sloan RBC 4.46 106/ul Normal 4.20-5.40 [facility] Comment on above: Performed By: #### T SH #### [facility] [address] [address] [address] Venkat Sloan WBC 7.1 103/ul Normal 4.0-11.0 [facility] Comment on above: Performed By: #### T SH #### [facility] [address] [place] [address] Dr. Venkat Sloan CRPon 09-26-2021 CRP [Mass/Vol] mg/L Normal <=1.0 [facility] Comment on above: Performed By: #### P REGQNT #### [facility] [address] [place] [address] Dr. Venkat Sloan FREE THYROXINE INDEX T7on FTI 2.71 Normal 1.30-4.50 [facility] Comment on above: Performed By: #### P REGQNT #### [facility] [address] [place] [address] Dr. Venkat Sloan T3U 33.0 % Normal 30.0-39.0 [facility] Comment on above: Performed By: #### P REGQNT #### [facility] [address] [place] [address] Dr. Venkat Sloan T4 [Mass/Vol] 8.20 ug/dL Normal 4.80-13.90 [facility] Comment on above: Performed By: #### P REGQNT #### [facility] [address] [place] [address] Dr. Venkat Sloan GLYCOHEMOGLOBIN A1Con 2021 ADA RECOMMENDATION SEE BELOW Normal [facility] Comment on above: Result Comment: ADA RECOMMENDED LIMIT 4.0 - 6.0 ADA THERAPEUTIC TARGET < 7.0 ACTION SUGGESTED > 7.0 Performed By: #### I NFLUAB #### [facility] [address] [address] [address] Venkat Sloan Glucose [Mass/Vol] 105 mg/dL Normal [facility] Comment on above: Performed By: #### I NFLUAB #### [facility] [address] [address] [address] Venkat Sloan HbA1c (Bld) [Mass fraction] 5.3 % Normal 4.5-6.2 [facility] Comment on above: Performed By: #### I NFLUAB #### [facility] [address] [place] [address] Dr. Venkat Sloan IRONon 09-26-2021 Iron [Mass/Vol] 49.0 ug/dL Critically low 50.0-170.0 [facility] Comment on above: Performed By: #### P REGQNT #### [facility] [address] [place] [address] Dr. Venkat Sloan LIPID PROFILEon 09-26-2021 CHOL-HDL RATIO NORM SEE BELOW Normal [facility] Comment on above: Result Comment: 3.3 - 4.4 LOW RISK 4.4 - 7.1 AVERAGE RISK 7.1 - 11.0 MODERATE RISK >11.0 HIGH RISK Performed By: #### P REGQNT #### [facility] [address] [place] [address] Dr. Venkat Sloan Cholesterol [Mass/Vol] 197 mg/dL Normal <=200 [facility] Comment on above: Performed By: #### P REGQNT #### [facility] [address] [address] [address] Venkat Sloan Cholesterol in HDL [Mass/Vol] 64 mg/dL Critically high 40-60 [facility] Comment on above: Performed By: #### P REGQNT #### [facility] [address] [address] [address] Venkat Sloan Cholesterol in LDL [Mass/Vol] 123.4 mg/dL Normal [facility] Comment on above: Performed By: #### P REGQNT #### [facility] [address] [address] [address] Venkat Sloan Cholesterol.total/Choles terol in HDL [Mass ratio] 3.1 {ratio} Normal [facility] Comment on above: Performed By: #### P REGQNT #### [facility] [address] [address] [address] Venkat Sloan HDL NORMAL > or = 60 mg/dl - LO W CARDIOVASCULAR RISK <40 mg/dl - HIGH CARDIOVASCULAR RISK Normal [facility] Comment on above: Performed By: #### P REGQNT #### [facility] [address] [address] [address] Venkat Sloan LDL CALC NORMAL SEE BELOW Normal [facility] Comment on above: Result Comment: <100 mg/dl OPTIMAL 100 - 129 mg/dl NEAR OR ABOVE OPTIMAL 130 - 159 mg/dl BORDERLINE HIGH 160 - 189 mg/dl HIGH >190 mg/dl VERY HIGH Performed By: #### P REGQNT #### [facility] [address] [address] [address] Venkat Sloan Triglyceride [Mass/Vol] 48 mg/dL Normal <=150 [facility] Comment on above: Performed By: #### P REGQNT #### [facility] [address] [address] [address] Venkat Sloan VLDL CALC 9.6 mg/dL Normal [facility] Comment on above: Performed By: #### P REGQNT #### [facility] [address] [address] [address] Venkat Sloan PROF 14(COMP METB)on 022 Albumin [Mass/Vol] 4.0 g/dL Normal 3.4-5.0 [facility] Comment on above: Performed By: #### I NFLUAB #### [facility] [address] [address] [address] Venkat Sloan Albumin/Globulin [Mass ratio] 1.3 {ratio} Normal [facility] Comment on above: Performed By: #### I NFLUAB #### [facility] [address] [address] [address] Venkat Sloan ALP [Catalytic activity/Vol] 58 U/L Normal 46-116 [facility] Comment on above: Performed By: #### I NFLUAB #### [facility] [address] [address] [address] Venkat Sloan ALT [Catalytic activity/Vol] 20 U/L Normal 14-59 [facility] Comment on above: Performed By: #### I NFLUAB #### [facility] [address] [address] [address] Venkat Sloan Anion gap [Moles/Vol] 10.4 mmol/L Normal [facility] Comment on above: Performed By: #### I NFLUAB #### [facility] [address] [address] [address] Venkat Sloan AST [Catalytic activity/Vol] 11 U/L Critically low 15-37 [facility] Comment on above: Performed By: #### I NFLUAB #### [facility] [address] [address] [address] Venkat Sloan Bilirubin [Mass/Vol] 0.8 mg/dL Normal 0.2-1.0 [facility] Comment on above: Performed By: #### I NFLUAB #### [facility] [address] [address] [address] Venkat Sloan Calcium [Mass/Vol] 9.0 mg/dL Normal 8.5-10.1 [facility] Comment on above: Performed By: #### I NFLUAB #### [facility] [address] [address] [address] Venkat Sloan Chloride [Moles/Vol] 106 mmol/L Normal 98-107 [facility] Comment on above: Performed By: #### I NFLUAB #### [facility] [address] [address] [address] Venkat Sloan CO2 [Moles/Vol] 27.0 mmol/L Normal 21.0-32.0 [facility] Comment on above: Performed By: #### I NFLUAB #### [facility] [address] [address] [address] Venkat Sloan Creatinine [Mass/Vol] 0.70 mg/dL Normal 0.55-1.02 [facility] Comment on above: Performed By: #### I NFLUAB #### [facility] [address] [address] [address] Venkat Sloan EGFR-AF EMIRATI >60 Normal >=60 [facility] Comment on above: Performed By: #### I NFLUAB #### [facility] [address] [place] [address] Dr. Venkat Sloan EGFR-NON AF EMIRATI >60 Normal >=60 [facility] Comment on above: Performed By: #### I NFLUAB #### [facility] [address] [place] [address] Dr. Venkat Sloan Globulin (S) [Mass/Vol] 3.2 g/dL Normal [facility] Comment on above: Performed By: #### I NFLUAB #### [facility] [address] [place] [address] Dr. Venkat Sloan Glucose [Mass/Vol] 92 mg/dL Normal 74-106 [facility] Comment on above: Performed By: #### I NFLUAB #### [facility] [address] [place] [address] Dr. Venkat Sloan Potassium [Moles/Vol] 4.4 mmol/L Normal 3.5-5.1 [facility] Comment on above: Performed By: #### I NFLUAB #### [facility] [address] [place] [address] Dr. Venkat Sloan Protein [Mass/Vol] 7.2 g/dL Normal 6.4-8.2 [facility] Comment on above: Performed By: #### I NFLUAB #### [facility] [address] [place] [address] Dr. Venkat Sloan Sodium [Moles/Vol] 139 mmol/L Normal 136-145 [facility] Comment on above: Performed By: #### I NFLUAB #### [facility] [address] [address] [address] Venkat Sloan Urea nitrogen [Mass/Vol] 13.0 mg/dL Normal 7.0-18.0 [facility] Comment on above: Performed By: #### I NFLUAB #### [facility] [address] [place] [address] Dr. Venkat Sloan Urea nitrogen/Creatinine [Mass ratio] 18.6 mg/mg Normal [facility] Comment on above: Performed By: #### I NFLUAB #### [facility] [address] [place] [address] Dr. Venkat Sloan TSHon 09-26-2021 TSH 1.318 uIU/mL Normal 0.358-3.740 [facility] Comment on above: Performed By: #### P REGQNT #### [facility] [address] [place] [address] Dr. Venkat Sloan URIC ACID SERUMon 09-26-2021 Urate [Mass/Vol] 3.9 mg/dL Normal 2.6-6.0 [facility] Comment on above: Performed By: #### P REGQNT #### [facility] [address] [place] [address] Dr. Venkat Sloan XR CSPINE MIN 4 [...] HERNÁNDEZ Date: 2021-09-24 21:16 Normal [facility] PREG QUANT HCGon 08-17-2021 HCG QUANT <1 Normal [facility] Comment on above: Performed By: #### I NFLUAB #### [facility] [address] [place] [address] Dr. Venkat Sloan HCG RANGE SEE BELOW Normal [facility] Comment on above: Result Comment: 5-50 0-1 WEEK 40-300 1-2 WEEKS 100-1,000 2-3 WEEKS 500-6,000 3-4 WEEKS 5,000-200,000 1-2 MONTHS 10,000-100,000 2-3 MONTHS 3,000-50,000 2ND TRIMESTER 1,000-50,000 3RD TRIMESTER Performed By: #### I NFLUAB #### [facility] [address] [place] [address] Dr. Venkat Sloan US PELVIS AND TRANSVAGon [...] HERNÁNDEZ Date: 2021-08-17 07:01 Normal [facility] COVID Quick Testingon 2020 Result Negative [facility] Other Vital Signs Date Time Vital Sign Value Performing Clinician Facility 05-22-2023 09:0500 Body height 154.94 cm [facility] 05-22-2023 09:050 Body mass index (BMI) [Ratio] 30.8 kg/m2 [facility] 05-22-2023 09:050 Body temperature 98.1 [degF] [facility] 05-22-2023 09:050 Body weight 74.04 kg [facility] 05-22-2023 09:27-0500 Heart rate 78 /min [facility] 05-22-2023 09:27-0500 Respiratory rate 16 /min [facility] 05-22-2023 09:27-0500 SaO2% (BldA) [Mass fraction] 98 % [facility] 05-10-2023 15:14-0500 Body mass index (BMI) [Ratio] 30.04 kg/m2 Ricardo Jennifer DO Work Phone: [facility] 05-10-2023 15:14-0500 Body weight 72.12 kg Ricardo Jennifer DO Work Phone: [facility] 05-10-2023 15:14-0500 Diastolic blood pressure 70 mm[Hg] Ricardo Jennifer DO Work Phone: [facility] 05-10-2023 15:14-0500 Systolic blood pressure 110 mm[Hg] Ricardo Jennifer [email or web address] Work Phone: [facility] 01-27-2021 18:45-0400 Body height 154.94 cm Mohini Buttault Other [facility] Other 01-27-2021 18:45-0400 Body mass index (BMI) [Ratio] 28.34 kg/m2 Mohini Juan Other [facility] Other 01-27-2021 18:45-0400 Body temperature 96.4 [degF] Mohini Juan Other [facility] Other 01-27-2021 18:45-0400 Body weight 68.04 kg Mohini Juan Other [facility] Other 01-27-2021 18:45-0400 Respiratory rate 18 /min Mohini Juan Other [facility] Other 01-27-2021 18:45-0400 SaO2% (BldA) [Mass fraction] 99 % Mohini Buttault Other [facility] Other 12-22-2020 11:45-0400 Body height 154.94 cm Dudley Freeman Other [facility] Other 12-22-2020 11:45-0400 Body mass index (BMI) [Ratio] 28.34 kg/m2 Dudley Lydia Other [facility] Other 12-22-2020 11:45-0400 Body weight 68.04 kg Dudley Freeman Other [facility] Other Encounters Encounter Date Encounter Type Care Provider Facility Start: 08-04-2023 End: 08-04-2023 ambulatory RICARDO JENNIFER Not Available Start: 07-28-2023 End: 07-28-2023 ambulatory RICARDO JENNIFER Not Available Start: 07-21-2023 End: 07-21-2023 ambulatory RICARDO JENNIFER Not Available Start: 07-14-2023 End: 07-14-2023 ambulatory RICARDO JENNIFER Not Available Start: 06-30-2023 End: 06-30-2023 ambulatory RICARDO JENNIFER Not Available Start: 06-13-2023 End: 06-13-2023 ambulatory RICARDO JENNIFER Not Available Start: 05-26-2023 End: 05-26-2023 ambulatory RICARDO JENNIFER Not Available Start: 05-22-2023 End: 05-22-2023 ambulatory [facility] Work Phone: Start: 05-22-2023 End: 05-22-2023 Patient encounter procedure [facility] Work Phone: Start: [...] examination DR RICARDO RODRIGUEZ . [facility] [...] Start: 02-17-2022 End: 02-18-[address] RICARDO RODRIGEUZ . Facility:[facility] Start: 02-10-2022 End: 02-10-[address] IRON GARCIA . Facility:[facility] Start: 02-03-2022 End: 02-03-[address] IRON GARCIA . Facility:[facility] Start: 02-01-[address] RICARDO RODRIGUEZ . Facili ty:[facility]1 Start: 01-13-2022 End: 01-14-[address] RCIARDO RODRIGUEZ . Facility:[facility] Start: 01-12-2022 End: 01-12-[address] IRON GARCIA . Facility:[facility] Start: 12-24-2021 End: 12-25-[address] IRON GARCIA . Facility:[facility] Start: 11-21-2021 End: 11-22-[address] RICARDO RODRIGUEZ . Facility:[facility] Start: 10-02-2021 Encounter for genera l adult medical examination without abnormal findings DR IRON GARCIA . [facility] Start: 09-26-2021 End: 09-27-[address] IRON [...] 01-27-2021 End: 01-27-2021 ambulatory Mohini Martinez Other [facility] Other Start: 01-27-2021 Office outpatient vi sit 15 minutes Mohini Martinez [facility] Start: 12-22-2020 Office outpatient ne w 45 minutes Dudley Freeman [facility] Gastroenterology Procedures Date Procedure Procedure Detail Performing Clinician Start: 05-22-2023 POC COVID/FLU/RSV Start: 05-10-2023 Urnls dip stick/tabl et rgnt non-auto w/o micrscp Ricardo Rodriguez DO Work Phone: Plan of Treatment Date Care Activity Detail Author Start: 05-26-2023 End: 05-26-2023 Patient encounter procedure 05/26/2023 9:50 AM EST Routine [facility] BCP OB [address] [place] [address] Ricardo Rodriguez, DO [address] [place] [address] [place] [address] NOM BCP OB Start: 05-10-2023 End: 05-10-2024 CBC panel - Blood by Automated count CBC Lab Routine Diabetes mellitus screening Expected: 05/10/2023 (Approximate), Expires: 05/10/2024 [facility] Work Phone: Comment on above: Expected: 05/10/2023 (Approximate), Expires: 05/10/2024 Start: 05-10-2023 End: 05-10-2024 Measurement of glucose 1 hour after glucose challenge for glucose tolerance test Glucose tolerance, 1 hour Lab Routine Diabetes mellitus screening Expected: 05/10/2023 (Approximate), Expires: 05/10/2024 [facility] Comment on above: Expected: 05/10/2023 (Approximate), Expires: 05/10/2024 Start: 11-26-2022 Influenza vaccination Influenz a Vaccine (#1) [facility] Immunizations Immunization Date Immunization Notes Care Provider [facility] 01-25-2022 influenza virus vacc ine, unspecified formulation Ricardo Jennifer DO Work Phone: [facility] Healthcare Payers Date Payer Category Payer Unknown BCBS BCBS xxxxxx [id number] 2022-Present [phone] [address] [place] [address] [id number] 1993 Unknown [id number] 2.16.840.1.295946.3.579.2.593 1993 Unknown [id number] 2.16.840.1.325195.3.579.2.593 1993 Unknown [id number] 2.16.840.1.528312.3.579.2.593 1993 Unknown [id number] 2.16.840.1.429737.3.579.2.593 1993 Unknown [id number] 2.16.840.1.645633.3.579.2.593 1993 Unknown [id number] 2.16.840.1.120143.3.579.2.593 1993 Unknown [id number] 2.16.840.1.234408.3.579.2.593 1993 Unknown [id number] 2.16.840.1.026740.3.579.2.59 1993 Unknown [id number] 2.16.840.1.985978.3.579.2.593 1993 Unknown [id number] 2.16.840.1.012217.3.579.2.59 1993 Unknown [id number] 2.16.840.1.597265.3.579.2.593 1993 Unknown [id number] 2.16.840.1.428941.3.579.2.59 1993 Unknown [id number] 2.16.840.1.121579.3.579.2.593 1993 Unknown [id number] 2.16.840.1.341680.3.579.2.593 1993 Unknown [id number] 2.16.840.1.507804.3.579.2.59 1993 Unknown [id number] 2.16.840.1.180185.3.579.2.593 1993 Unknown [id number] 2.16.840.1.527313.3.579.2.593 1993 Unknown [id number] 2.16.840.1.253246.3.579.2.593 1993 Unknown [id number] 2.16.840.1.235260.3.579.2.593 1993 Unknown [id number] 2.16.840.1.946203.3.579.2.593 1993 Unknown [id number] 2.16.840.1.917176.3.579.2.593 1993 Unknown [id number] 2.16.840.1.161740.3.579.2.59 1993 Unknown [id number] 2.16.840.1.095679.3.579.2.593 1993 Unknown [id number] 2.16.840.1.948664.3.579.2.59 1993 Unknown [id number] 2.16.840.1.294689.3.579.2.593 1993 Unknown [id number] 2.16.840.1.706655.3.579.2.1258 1993 Unknown [id number] 2.16.840.1.196873.3.579.2.1258 1993 Unknown [id number] 2.16.840.1.073688.3.579.2.1258 1993 Unknown [id number] 2.16.840.1.496264.3.579.2.125 1993 Unknown [id number] 2.16.840.1.275125.3.579.2.1258 1993 Unknown [id number] 2.16.840.1.765379.3.579.2.1258 1993 Unknown [id number] 2.16.840.1.747282.3.579.2.1258 1993 Unknown [id number] 2.16.840.1.130714.3.579.2.1259 1993 Unknown [id number] 2.16.840.1.271479.3.579.2.1259 1993 Unknown [id number] 2.16.840.1.462996.3.579.2.1259 1993 Unknown [id number] 2.16.840.1.059327.3.579.2.1259 1959 Unknown [id number] 1959 Unknown [id number] Self-pay Self Pay [id number] Unknown [id number] 2.16. 840.1.333549.19 Unknown O [id number] Unknown Osiel BC/BS [id number] Social History Date Type Detail Facility Unknown if ever smoked [facility] Other Start: 01-28-2023 Sex Assigned At [facility] Other Start: 01-28-2023 End: 05-22-2023 Tobacco smoking [...] of Present illness Narrative 05-10-2023 Melissa Thornton, WO[employer]TER - 05/10/2023 2:50 PM EST Note Date [...] nursing note reviewed. 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 Vitals: Estimated body mass index [...] Ricardo Rodriguez DO documented in this encounter [facility] Clinical Note 07-08-2022 Note Date & Type Note Facility 07-08-2022 Note OPERATIVE NOTE OPERATION DATE: 07/08/2022 PROCEDURE: Diagnostic laparoscopy with fulguration of ovarian endometrial implant. PREOPERATIVE DIAGNOSIS: Pelvic pain. POSTOPERATIVE DIAGNOSIS: Pelvic pain. ANESTHESIA: General. SURGEON: Ricardo Rodriguez D.O. PRICING LEAD: DEVIN Miles URINE OUTPUT: Yellow and clear. [...] Recovery Room in stable condition. [facility] Evaluation note 12-22-2020 Note Date & Type Note Facility 12-22-2020 Evaluation note Encounter Date Diagnosis Assessment Notes Nov, Irritable bowel syndrome with both constipation and diarrhea (ICD-10 - K58.2) LABS INDICATED ABOVE START TRIAL OF DICYCLOMINE 20 BID RTO 4 WEEKS [facility] Other Evaluation note Note Date & Type Note Facility Evaluation note [facility] Other Evaluation note Note Date & Type [...] anxiety/depression Medical History IBS Surgical History TONSILLECTOMY [facility] Other History general Narrative - Reported Note Date & Type Note Facility History general Narrative - Reported [facility] Other Summary Purpose Family History No Family [...] pital DATE CREATED AUTHOR AUTHOR'S ORGANIZ ATION 08/06/2023 [facility] EPIC Care Teams (unrecognized sec tion and content) Agriculture Extension Specialist Relationship Specialty Start Date End Date Iron Garcia MD [address] [place] [address] PCP - General Family Medicine 11/23/22 Team [...] BE BASED ON THE PRIMARY CLINICAL RECORDS. [facility]. provides no warranty or guarantee of the accuracy or completeness of information in this document.
[2023-08-08 17:06] VITALS: BP 138/88; PULSE 86
--- NOTE | 2023-08-08 17:09 | US_ITS ---
[address] [address] Patient Name: ESTER BRADFORD MRN: [facility]:[id number] date: 1995 Sex: F Assigned Patient Location: US Current Patient Location: Accession/Order Number: [id number] Exam Date: 08/08/2023 18:00 Report Date: 08/09/2023 07:28 At the request of: RICARDO LEGGETT Procedure: US OB BPP w non-stress EXAMINATION: US OB BPP w non-stress HISTORY: JOSESITO INCREASED O40.9XX0 COMPARISON: No relevant comparison available. TECHNIQUE: Ultrasound biophysical profile was performed in the radiology department. BREATHING MOVEMENTS: 2.0 GROSS BODY MOVEMENTS: 2.0 TONE: 2.0 QUALITATIVE AMNIOTIC FLUID VOLUME: 2.0 PRESENTATION: CEPHALIC HEART RATE: 131.1 bpm bpm. AMNIOTIC FLUID VOLUME: 15.1 cm GESTATIONAL AGE: 38 weeks 3 days CONCLUSION: 1. Total biophysical profile score 8.0. 2. Normal amniotic fluid index. Electronically authenticated by: JUDITH MACHUCA Date: 08/09/2023 07:28
== END 2023-08-08 18:15 | disposition home or self-care (01) ==
LOC: US 07:18 → FBC 17:01
PROVIDERS: PCP Family Medicine; Visit Provider Obstetrics & Gynecology
DX: O40.9XX0 Polyhydramnios, unspecified trimester, not applicable or unspecified (principal); Z3A.38 38 weeks gestation of pregnancy
CPT/HCPCS: 76818

== ENCOUNTER 2023-08-12 | Inpatient (IN) | payer BC, SELFPAY ==
[2023-08-12] VITALS (36 sets, daily range): BP systolic 110–182; BP diastolic 54–93; PULSE 49–98; TEMP 35.5–36.6
--- OUTSIDE RECORDS SUMMARY | 2023-08-12 00:05 | XMS_ITS | CCD ---
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 Service Window Clerk Name Role Phone Lydia Dudley Unavailable Mohini [...] Unavailable HOY ., DR PERDUE Consulting Unavailable BIG ARM, DR DUDLEY Emanuel Consulting Unavailable JENNIFER ., [...] Jose MORA, Iron Ch Primary Care Provider [phone] JENNIFER, RICARDO Attending Unavailable JENNIFER, RICARDO Attending Unavailable JENNIFER, RICARDO Attending Unavailable JENNIFER, RICARDO Attending Unavailable JENNIFER, RICARDO Attending Unavailable JENNIFER, RICARDO Attending Unavailable JENNFIER, RICARDO Attending Unavailable JENNIFER, RICARDO Attending Unavailable JENNIFER, RICARDO Attending Unavailable JENNIFER, RICARDO Attending Unavailable JENNIFER, RICARDO Attending Unavailable Medications Current Medications Medication Drug Class(es) Dates Sig (Normalized) Sig (Original) [id number] 200 actuat albuterol 0.09 mg/actuat metered dose [...] DAILY NEEDED FOR NAUSEA 0 02/19/2023 Active Hdtbsq39-Uqwg Fum-Folic Ac-Om3 (One A Day Women's Dha) 28 mg iron- 800 mcg combo pack (1 source) Start: 05-22-2023 Ijnvek63-Vjkm Fum-Folic Ac-Om3 (One A Day Women's Dha) [...] SARS-CoV-2 (COVID-19) RNA SHIRIN+probe Ql (Unsp spec) [facility] Urinalysis macro (dipstick) panel (U)on 05-10-2023 Bilirubin, UA Negative Negative - 4(70) +++ mg/dL [facility] Blood, UA Negative Negative - 50 Jayson/mcL [facility] Clarity, UA Clear [facility] Color, UA Yellow [facility] Glucose, UA Negative Negative - 1999(110) ++++ mg/dL [facility] Interpretation and review of laboratory results Abnormal [facility] Ketones, UA Positive Negative - 160(16) ++++ mg/dL [facility] Comment on above: trace Leukocytes, UA Trace Negative - 500+++ Lolita/mcL [facility] Nitrite, UA Negative Negative - Positive [facility] pH, UA 6.0 5 - 9 [facility] Protein, UA Negative Negative - 1999(20) ++++ mg/dL [facility] Spec Grav, UA 1.030 1 - 1.03 [facility] Urobilinogen, UA 0.2 0.2 - 12 mg/dL [facility] CBC AUTO DIFFon 07-08-2022 BASO # 0.0 103/ul Normal 0.0-0.1 [facility] Comment on above: Performed By: #### R F #### [facility] [address] [place] [address] Dr. Venkat Sloan Basophils/100 WBC (Bld) 0.5 % Normal 0.2-2.0 [facility] Comment on above: Performed By: #### R F #### [facility] [address] [place] [address] Dr. Venkat Sloan EO # 0.1 103/ul Normal 0.0-0.7 [facility] Comment on above: Performed By: #### R F #### [facility] [address] [place] [address] Dr. Venkat Sloan Eosinophils/100 WBC (Bld) 1.7 % Normal 0.9-7.0 [facility] Comment on above: Performed By: #### R F #### [facility] [address] [place] [address] Dr. Venkat Sloan Erythrocyte distribution width (RBC) [Ratio] 12.7 % Normal 11.0-15.0 [facility] Comment on above: Performed By: #### R F #### [facility] [address] [place] [address] Dr. Venkat Sloan Hematocrit (Bld) [Volume fraction] 40.4 % Normal 36.0-48.0 [facility] Comment on above: Performed By: #### R F #### [facility] [address] [place] [address] Dr. Venkat Sloan Hemoglobin (Bld) [Mass/Vol] 13.1 g/dL Normal 12.0-16.0 [facility] Comment on above: Performed By: #### R F #### [facility] [address] [place] [address] Dr. Venkat Sloan IG # 0.02 10e3/ul Normal 0.00-0.03 [facility] Comment on above: Performed By: #### R F #### [facility] [address] [place] [address] Dr. Venkat Sloan IG % 0.3 % Normal 0.0-0.5 [facility] Comment on above: Performed By: #### R F #### [facility] [address] [place] [address] Dr. Venkat Sloan LYMPH # 2.0 103/ul Normal 1.2-3.8 [facility] Comment on above: Performed By: #### R F #### [facility] [address] [place] [address] Dr. Venkat Sloan Lymphocytes/100 WBC (Bld) 26.2 % Normal 20.5-60.0 [facility] Comment on above: Performed By: #### R F #### [facility] [address] [place] [address] Dr. Venkat Sloan MANUAL DIFF REQ NO Normal [facility] Comment on above: Performed By: #### R F #### [facility] [address] [place] [address] Dr. Venkat Sloan MCH (RBC) [Entitic mass] 28.4 pg Normal 26.7-34.0 [facility] Comment on above: Performed By: #### R F #### [facility] [address] [place] [address] Dr. Venkat Sloan MCHC (RBC) [Mass/Vol] 32.4 g/dL Normal 29.9-35.2 [facility] Comment on above: Performed By: #### R F #### [facility] [address] [place] [address] Dr. Venkat Sloan MCV (RBC) [Entitic vol] 87.4 fL Normal 81.0-99.0 [facility] Comment on above: Performed By: #### R F #### [facility] [address] [place] [address] Dr. Venkat Sloan MONO # 0.7 103/ul Normal 0.3-0.8 [facility] Comment on above: Performed By: #### R F #### [facility] [address] [place] [address] Dr. Venkat Sloan Monocytes/100 WBC (Bld) 8.8 % Normal 1.7-12.0 [facility] Comment on above: Performed By: #### R F #### [facility] [address] [place] [address] Dr. Venkat Sloan NEUT # 4.8 103/ul Normal 1.4-6.5 [facility] Comment on above: Performed By: #### R F #### [facility] [address] [place] [address] Dr. Venkat Sloan Neutrophils/100 WBC (Bld) 62.5 % Normal 43.0-75.0 [facility] Comment on above: Performed By: #### R F #### [facility] [address] [place] [address] Dr. Venkat Sloan Platelet mean volume (Bld) [Entitic vol] 8.5 fL Critically low 9.5-13.5 [facility] Comment on above: Performed By: #### R F #### [facility] [address] [place] [address] Dr. Venkat Sloan PLT 331 103/ul Normal 150-450 [facility] Comment on above: Performed By: #### R F #### [facility] [address] [place] [address] Dr. Venkat Sloan RBC 4.62 106/ul Normal 4.20-5.40 [facility] Comment on above: Performed By: #### R F #### [facility] [address] [place] [address] Dr. Venkat Sloan WBC 7.7 103/ul Normal 4.0-11.0 [facility] Comment on above: Performed By: #### R F #### [facility] [address] [place] [address] Dr. Venkat Sloan PREG QUANT HCGon 07-08-2022 HCG QUANT <1 Normal [facility] Comment on above: Performed By: #### P REGQNT #### [facility] [address] [place] [address] Dr. Venkat Sloan HCG RANGE SEE BELOW Normal [facility] Comment on above: Result Comment: 5-50 0.2-1 WEEK 50-500 1-2 WEEKS 100-5,000 2-3 WEEKS 500-10,000 3-4 WEEKS 1,000-50,000 4-5 WEEKS 10,000-100,000 5-6 WEEKS 15,000-200,000 6-8 WEEKS 10,000-100,000 2-3 MONTHS Performed By: #### P REGQNT #### [facility] [address] [place] [address] Dr. Venkat Sloan PROGESTERONEon 06-23-2022 Progesterone 5.7 ng/mL Normal [facility] Comment on above: Result Comment: Foll icular phase 0.1 - 0.9 Luteal phase 1.8 - 23.9 Ovulation phase 0.1 - 12.0 First trimester 11.0 - 44.3 Second trimester 25.4 - 83.3 Third trimester 58.7 - 214.0 Postmenopausal 0.0 - 0.1 Performed By: #### T SH #### [facility] [address] [place] [address] Dr. Venkat Sloan PREG QUANT HCGon 05-31-2022 HCG QUANT 1 mIU/mL Normal [facility] Comment on above: Performed By: #### P REGQNT #### [facility] [address] [place] [address] Dr. Venkat Sloan HCG RANGE SEE BELOW [facility] Comment on above: Result Comment: 5-50 0.2-1 WEEK 50-500 1-2 WEEKS 100-5,000 2-3 WEEKS 500-10,000 3-4 WEEKS 1,000-50,000 4-5 WEEKS 10,000-100,000 5-6 WEEKS 15,000-200,000 6-8 WEEKS 10,000-100,000 2-3 MONTHS Performed By: #### P REGQNT #### [facility] [address] [place] [address] Dr. Venkat Sloan PROGESTERONEon 05-21-2022 Progesterone 12.4 ng/mL Normal [facility] Comment on above: Result Comment: Foll icular phase 0.1 - 0.9 Luteal phase 1.8 - 23.9 Ovulation phase 0.1 - 12.0 First trimester 11.0 - 44.3 Second trimester 25.4 - 83.3 Third trimester 58.7 - 214.0 Postmenopausal 0.0 - 0.1 Performed By: #### I NFLUAB #### [facility] [address] [place] [address] Dr. Venkat Sloan MRI BRAIN WO W [...] LAM VELA Date: 2022-05-04 08:42 Normal [facility] PREG QUANT HCGon 05-04-2022 HCG QUANT <1 Normal [facility] Comment on above: Performed By: #### R F #### [facility] [address] [address] [address] Venkat Sloan HCG RANGE SEE BELOW Normal [facility] Comment on above: Result Comment: 5-50 0.2-1 WEEK 50-500 1-2 WEEKS 100-5,000 2-3 WEEKS 500-10,000 3-4 WEEKS 1,000-50,000 4-5 WEEKS 10,000-100,000 5-6 WEEKS 15,000-200,000 6-8 WEEKS 10,000-100,000 2-3 MONTHS Performed By: #### R F #### [facility] [address] [address] [address] Venkat Sloan XR HYSTEROSALPINGOGRAMon XR HYSTEROSALPINGOGRAM [...] by: LAM VELA Date: 2022-05-04 16:09 Normal [facility] PROGESTERONEon 04-24-2022 Progesterone 0.4 ng/mL Normal [facility] Comment on above: Result Comment: Foll icular phase 0.1 - 0.9 Luteal phase 1.8 - 23.9 Ovulation phase 0.1 - 12.0 First trimester 11.0 - 44.3 Second trimester 25.4 - 83.3 Third trimester 58.7 - 214.0 Postmenopausal 0.0 - 0.1 Performed By: #### I NFLUAB #### [facility] [address] [address] [address] Venkat Sloan CULTURE SPUTUMon 04-02-2022 CULTURE SPUTUM Culture Observations : NORMAL RESPIRATORY NATALEE. Normal [facility] Comment on above: Performed By: #### R F #### [facility] [address] [address] [address] Venkat Sloan SPUTUM GRAM STAINon 04-02-19 23 COMMENTS Normal [facility] Comment on above: Performed By: #### R F #### [facility] [address] [address] [address] Venkat Sloan DIPHTHEROIDS Normal [facility] Comment on above: Performed By: #### R F #### [facility] [address] [address] [address] Venkat Sloan EPITHELIALS <25 Normal [facility] Comment on above: Performed By: #### R F #### [facility] [address] [address] [address] Venkat Sloan FUNGAL ELEMENTS Normal [facility] Comment on above: Performed By: #### R F #### [facility] [address] [address] [address] Venkat Sloan GRAM NEG BACILLI RARE Normal [facility] Comment on above: Performed By: #### R F #### [facility] [address] [place] [address] Dr. Venkat Sloan GRAM NEG DIPPLOCOCCI Normal [facility] Comment on above: Performed By: #### R F #### [facility] [address] [place] [address] Dr. Venkat Sloan GRAM POS BACILLI Normal [facility] Comment on above: Performed By: #### R F #### [facility] [address] [place] [address] Dr. Venkat Sloan GRAM POSITIVE COCCI RARE Normal [facility] Comment on above: Performed By: #### R F #### [facility] [address] [place] [address] Dr. Venkat Sloan WBC (Bld) [#/Vol] 10*3/uL Normal [facility] Comment on above: Performed By: #### R F #### [facility] [address] [place] [address] Dr. Venkat Sloan [facility] SARS-CoV-2 (COVID-19) RNA SHIRIN+probe Ql (Unsp spec) Not detected Normal NOT DETECTED [facility] Comment on above: Result Comment: This test is not yet approved or cleared by the [place] FDA. When there are no FDA-approved or cleared tests available, and other criteria are met, FDA can make tests available under an emergency access mechanism called an Emergency Use Authorization (EUA). The EUA for this test is supported by the [employer] of Health and Human Service's (HHS's) declaration [...] SARS-CoV-2. Performed By: #### P REGQNT #### [facility] [address] [place] [address] Dr. Venkat Sloan INFLUENZA A AND B AGon 04-01 [facility] SEE BELOW Normal [facility] Comment on above: Result Comment: Nega tive for Flu A protein angiten. Infection due to Flu A cannot be ruled out. Flu A angiten in the sample may be below the detection limit of the test. Performed By: #### I NFLUAB #### [facility] [address] [place] [address] Dr. Venkat Sloan INFLUBNEG SEE BELOW Normal [facility] Comment on above: Result Comment: Nega tive for Flu B protein antigen. Infection due to Flu B cannot be ruled out. Flu B antigen in the sample may be below the detection limit of the test. Performed By: #### I NFLUAB #### [facility] [address] [place] [address] Dr. Venkat Sloan INFLUENZA A AG Negative Normal NEGATIVE SEE COMMENT [facility] Comment on above: Performed By: #### I NFLUAB #### [facility] [address] [place] [address] Dr. Venkat Sloan INFLUENZA B AG Negative Normal NEGATIVE SEE COMMENT [facility] Comment on above: Performed By: #### I NFLUAB #### [facility] [address] [place] [address] Dr. Venkat Sloan XR CHEST 2 Von [...] [address] Date: 2022-03-24 12:33 Normal [facility] 02-25 SARS-CoV-2 (COVID-19) RNA SHIRIN+probe Ql (Unsp spec) Not detected Normal NOT DETECTED [facility] Comment on above: Result Comment: [...] for this test is supported by the [employer] of Health and Human Service's declaration that [...] used). Performed By: #### R F #### [facility] [address] [place] [address] Dr. Venkat Sloan INFLUENZA A AND B [facility] 03-15 [facility] SEE BELOW Normal [facility] Comment on above: Result Comment: Nega tive for Flu A protein angiten. Infection due to Flu A cannot be ruled out. Flu A angiten in the sample may be below the detection limit of the test. Performed By: #### I NFLUAB #### [facility] [address] [place] [address] Dr. Venkat [facility] Normal [facility] Comment on above: Result Comment: Nega tive for Flu B protein antigen. Infection due to Flu B cannot be ruled out. Flu B antigen in the sample may be below the detection limit of the test. Performed By: #### I NFLUAB #### [facility] [address] [place] [address] Dr. Venkat Sloan INFLUENZA A AG Negative Normal NEGATIVE SEE COMMENT [facility] Comment on above: Performed By: #### I NFLUAB #### [facility] [address] [place] [address] Dr. Venkat Sloan INFLUENZA B AG Negative Normal NEGATIVE SEE COMMENT [facility] Comment on above: Performed By: #### I NFLUAB #### [facility] [address] [place] [address] Dr. Venkat Sloan INTERNAL CONTROLS Within Normal Limits Normal Wi thin Normal Limits [facility] Comment on above: Performed By: #### I NFLUAB #### [facility] [address] [place] [address] Dr. Venkat Sloan Covid-19 PCR ([facility])on 02-25 SARS-CoV-2 (COVID-19) RNA SHIRIN+probe Ql (Unsp spec) Not detected Normal NOT DETECTED [facility] Comment on above: Result Comment: [...] for this test is supported by the [employer] of Health and Human Service's declaration that [...] used). Performed By: #### I NFLUAB #### [facility] [address] [place] [address] Dr. Venkat Sloan INFLUENZA A AND B AGon 03-12 [facility] SEE BELOW Normal [facility] Comment on above: Result Comment: Nega tive for Flu A protein angiten. Infection due to Flu A cannot be ruled out. Flu A angiten in the sample may be below the detection limit of the test. Performed By: #### I NFLUAB #### [facility] [address] [place] [address] Dr. Venkat Sloan INFLUBNEGH SEE BELOW Normal [facility] Comment on above: Result Comment: Nega tive for Flu B protein antigen. Infection due to Flu B cannot be ruled out. Flu B antigen in the sample may be below the detection limit of the test. Performed By: #### I NFLUAB #### [facility] [address] [address] [address] Venkat Sloan INFLUENZA A AG Negative Normal NEGATIVE SEE COMMENT [facility] Comment on above: Performed By: #### I NFLUAB #### [facility] [address] [address] [address] Venkat Sloan INFLUENZA B AG Negative Normal NEGATIVE SEE COMMENT [facility] Comment on above: Performed By: #### I NFLUAB #### [facility] [address] [address] [address] Venkat Sloan INTERNAL CONTROLS Within Normal Limits Normal Wi thin Normal Limits [facility] Comment on above: Performed By: #### I NFLUAB #### [facility] [address] [place] [address] Dr. Venkat Sloan PROGESTERONEon 02-20-2022 Progesterone 0.3 ng/mL Normal [facility] Comment on above: Result Comment: Foll icular phase 0.1 - 0.9 Luteal phase 1.8 - 23.9 Ovulation phase 0.1 - 12.0 First trimester 11.0 - 44.3 Second trimester 25.4 - 83.3 Third trimester 58.7 - 214.0 Postmenopausal 0.0 - 0.1 Performed By: #### R F #### [facility] [address] [place] [address] Dr. Venkat Sloan ACTH STIMULATIONon 2 Andros Baseline 49 ng/dL Normal 41-262 [facility] Comment on above: Performed By: #### R F #### [facility] [address] [address] [address] Venkat Sloan Andros Stimulated 82 ng/dL Normal Not Estab. [facility] Comment on above: Performed By: #### R F #### [facility] [address] [place] [address] Dr. Venkat Sloan Covid-19 PCR ([facility])on 01-26 SARS-CoV-2 (COVID-19) RNA SHIRIN+probe Ql (Unsp spec) Not detected Normal NOT DETECTED [facility] Comment on above: Result Comment: This test is not yet approved or cleared by the [place] FDA. When there are no FDA-approved or cleared tests available, and other criteria are met, FDA can make tests available under an emergency access mechanism called an Emergency Use Authorization (EUA). The EUA for this test is supported by the [employer] of Health and Human Service's (HHS's) declaration [...] SARS-CoV-2. Performed By: #### I NFLUAB #### [facility] [address] [place] [address] Dr. Venkat Sloan INFLUENZA A AND B [facility] 02-10 [facility] SEE BELOW Normal [facility] Comment on above: Result Comment: Nega tive for Flu A protein angiten. Infection due to Flu A cannot be ruled out. Flu A angiten in the sample may be below the detection limit of the test. Performed By: #### P REGQNT #### [facility] [address] [place] [address] Dr. Venkat [facility] Normal [facility] Comment on above: Result Comment: Nega tive for Flu B protein antigen. Infection due to Flu B cannot be ruled out. Flu B antigen in the sample may be below the detection limit of the test. Performed By: #### P REGQNT #### [facility] [address] [place] [address] Dr. Venkat Sloan INFLUENZA A AG Negative Normal NEGATIVE SEE COMMENT [facility] Comment on above: Performed By: #### P REGQNT #### [facility] [address] [place] [address] Dr. Venkat Sloan INFLUENZA B AG Negative Normal NEGATIVE SEE COMMENT [facility] Comment on above: Performed By: #### P REGQNT #### [facility] [address] [address] [address] Venkat Sloan INTERNAL CONTROLS Within Normal Limits Normal Wi thin Normal Limits [facility] Comment on above: Performed By: #### P REGQNT #### [facility] [address] [address] [address] Venkat Sloan DHEA SERUMon 01-19-2022 Dehydroepiandrosterone (DHEA) 82 ng/dL Normal 31-701 [facility] Comment on above: Result Comment: Age 1 [...] 701 Performed By: #### T SH #### [facility] [address] [address] [address] Venkat Sloan DHEA-SULFATEon 01-14-2022 DHEA-Sulfate 34.0 ug/dL Critically low 84.8-378.0 [facility] Comment on above: Performed By: #### R F #### [facility] [address] [place] [address] Dr. Venkat Sloan FSHon 01-14-2022 FSH 2.2 mIU/mL Normal [facility] Comment on above: Result Comment: Adul t Female: Follicular phase 3.5 - 12.5 Ovulation phase 4.7 - 21.5 Luteal phase 1.7 - 7.7 Postmenopausal 25.8 - 134.8 Performed By: #### L BCFS #### [facility] [address] [address] [address] Venkat Sloan LUTEINIZING HORMONE (LH)on LH 5.1 mIU/mL Normal [facility] Comment on above: Result Comment: Adul t Female: Follicular phase 2.4 - 12.6 Ovulation phase 14.0 - 95.6 Luteal phase 1.0 - 11.4 Postmenopausal 7.7 - 58.5 Performed By: #### I NFLUAB #### [facility] [address] [place] [address] Dr. Venkat Sloan PROLACTINon 01-14-2022 Prolactin 8.0 ng/mL Normal 4.8-23.3 [facility] Comment on above: Performed By: #### P ROLAC #### [facility] [address] [place] [address] Dr. Venkat Sloan CBC AUTO DIFFon 01-13-2022 BASO # 0.0 103/ul Normal 0.0-0.1 [facility] Comment on above: Performed By: #### T SH #### [facility] [address] [place] [address] Dr. Venkat Sloan Basophils/100 WBC (Bld) 0.4 % Normal 0.2-2.0 [facility] Comment on above: Performed By: #### T SH #### [facility] [address] [place] [address] Dr. Venkat Sloan EO # 0.1 103/ul Normal 0.0-0.7 [facility] Comment on above: Performed By: #### T SH #### [facility] [address] [place] [address] Dr. Venkat Sloan Eosinophils/100 WBC (Bld) 1.2 % Normal 0.9-7.0 [facility] Comment on above: Performed By: #### T SH #### [facility] [address] [place] [address] Dr. Venkat Sloan Erythrocyte distribution width (RBC) [Ratio] 12.7 % Normal 11.0-15.0 [facility] Comment on above: Performed By: #### T SH #### [facility] [address] [place] [address] Dr. Venkat Sloan Hematocrit (Bld) [Volume fraction] 41.1 % Normal 36.0-48.0 [facility] Comment on above: Performed By: #### T SH #### [facility] [address] [place] [address] Dr. Venkat Sloan Hemoglobin (Bld) [Mass/Vol] 13.1 g/dL Normal 12.0-16.0 [facility] Comment on above: Performed By: #### T SH #### [facility] [address] [place] [address] Dr. Venkat Sloan IG # 0.03 10e3/ul Normal 0.00-0.03 [facility] Comment on above: Performed By: #### T SH #### [facility] [address] [place] [address] Dr. Venkat Sloan IG % 0.3 % Normal 0.0-0.5 [facility] Comment on above: Performed By: #### T SH #### [facility] [address] [place] [address] Dr. Venkat Sloan LYMPH # 1.6 103/ul Normal 1.2-3.8 [facility] Comment on above: Performed By: #### T SH #### [facility] [address] [place] [address] Dr. Venkat Sloan Lymphocytes/100 WBC (Bld) 15.0 % Critically low 20.5-60.0 [facility] Comment on above: Performed By: #### T SH #### [facility] [address] [place] [address] Dr. Venkat Sloan MANUAL DIFF REQ NO Normal [facility] Comment on above: Performed By: #### T SH #### [facility] [address] [place] [address] Dr. Venkat Sloan MCH (RBC) [Entitic mass] 28.5 pg Normal 26.7-34.0 [facility] Comment on above: Performed By: #### T SH #### [facility] [address] [place] [address] Dr. Venkat Sloan MCHC (RBC) [Mass/Vol] 31.9 g/dL Normal 29.9-35.2 [facility] Comment on above: Performed By: #### T SH #### [facility] [address] [place] [address] Dr. Venkat Sloan MCV (RBC) [Entitic vol] 89.3 fL Normal 81.0-99.0 [facility] Comment on above: Performed By: #### T SH #### [facility] [address] [address] [address] Venkat Sloan MONO # 0.9 103/ul Critically high 0.3-0.8 [facility] Comment on above: Performed By: #### T SH #### [facility] [address] [address] [address] Venkat Sloan Monocytes/100 WBC (Bld) 8.8 % Normal 1.7-12.0 [facility] Comment on above: Performed By: #### T SH #### [facility] [address] [place] [address] Dr. Venkat Sloan NEUT # 7.9 103/ul Critically high 1.4-6.5 [facility] Comment on above: Performed By: #### T SH #### [facility] [address] [place] [address] Dr. Venkat Sloan Neutrophils/100 WBC (Bld) 74.3 % Normal 43.0-75.0 [facility] Comment on above: Performed By: #### T SH #### [facility] [address] [place] [address] Dr. Venkat Sloan Platelet mean volume (Bld) [Entitic vol] 9.2 fL Critically low 9.5-13.5 [facility] Comment on above: Performed By: #### T SH #### [facility] [address] [place] [address] Dr. Venkat Sloan PLT 300 103/ul Normal 150-450 [facility] Comment on above: Performed By: #### T SH #### [facility] [address] [place] [address] Dr. Venkat Sloan RBC 4.60 106/ul Normal 4.20-5.40 [facility] Comment on above: Performed By: #### T SH #### [facility] [address] [place] [address] Dr. Venkat Sloan WBC 10.7 103/ul Normal 4.0-11.0 [facility] Comment on above: Performed By: #### T SH #### [facility] [address] [place] [address] Dr. Venkat Sloan GLYCOHEMOGLOBIN A1Con 2021 ADA RECOMMENDATION SEE BELOW Normal [facility] Comment on above: Result Comment: ADA RECOMMENDED LIMIT 4.0 - 6.0 ADA THERAPEUTIC TARGET < 7.0 ACTION SUGGESTED > 7.0 Performed By: #### P REGQNT #### [facility] [address] [address] [address] Venkat Sloan Glucose [Mass/Vol] 100 mg/dL Normal [facility] Comment on above: Performed By: #### P REGQNT #### [facility] [address] [address] [address] Venkat Sloan HbA1c (Bld) [Mass fraction] 5.1 % Normal 4.5-6.2 [facility] Comment on above: Performed By: #### P REGQNT #### [facility] [address] [place] [address] Dr. Venkat Sloan TSHon 01-13-2022 TSH 1.098 uIU/mL Normal 0.358-3.740 [facility] Comment on above: Performed By: #### T SH #### [facility] [address] [place] [address] Dr. Venkat Sloan Covid-19 PCR ([facility])on 12-26 SARS-CoV-2 (COVID-19) RNA SHIRIN+probe Ql (Unsp spec) Not detected Normal NOT DETECTED [facility] Comment on above: Result Comment: This test is not yet approved or cleared by the [place] FDA. When there are no FDA-approved or cleared tests available, and other criteria are met, FDA can make tests available under an emergency access mechanism called an Emergency Use Authorization (EUA). The EUA for this test is supported by the [place] of Health and Human Service's (HHS's) declaration [...] SARS-CoV-2. Performed By: #### I NFLUAB #### [facility] [address] [place] [address] Dr. Venkat Sloan PREG QUANT HCGon 12-24-2021 HCG QUANT <1 Normal [facility] Comment on above: Performed By: #### P REGQNT #### [facility] [address] [place] [address] Dr. Venkat Sloan HCG RANGE SEE BELOW Normal [facility] Comment on above: Result Comment: 5-50 0.2-1 WEEK 50-500 1-2 WEEKS 100-5,000 2-3 WEEKS 500-10,000 3-4 WEEKS 1,000-50,000 4-5 WEEKS 10,000-100,000 5-6 WEEKS 15,000-200,000 6-8 WEEKS 10,000-100,000 2-3 MONTHS Performed By: #### P REGQNT #### [facility] [address] [place] [address] Dr. Venkat Sloan HCG-BETA SUBUNIT QUANTon hCG,Beta Subunit,Qnt,Serum <1 Normal [facility] Comment on above: Result Comment: Fema le (Non-) 0 - 5 (Postmenopausal) 0 - 8 . Female () Weeks of Gestation 3 6 - 71 4 10 - 750 5 217 - 7138 6 158 - 33072 7 [phone] 8 [phone] -[phone] 9 35572 -[phone] 10 44016 -[phone] 12 94029 -[phone] 14 32334 - 33289 15 73768 - 96884 16 6053 - 18006 17 2310 - 61151 18 [phone] - [phone] Aj ECLIA methodology Performed By: #### T SH #### [facility] [address] [place] [address] Dr. Venkat Sloan BRETT by IFAon 09-29-2021 Antinuclear Antibodies, IFA Negative Normal [facility] Comment on above: Result Comment: Nega tive <1:80 Borderline 1:80 Positive >1:80 ICAP nomenclature: AC-0 For more information about Hep-2 cell patterns use ANApatterns.org, the official website for the International Consensus on Antinuclear Antibody (BRETT) Patterns (ICAP). Performed By: #### A NAIFA #### [facility] [address] [place] [address] Dr. Venkat Sloan INSULINon 09-29-2021 Insulin 11.1 uIU/mL Normal 2.6-24.9 [facility] Comment on above: Performed By: #### T SH #### [facility] [address] [place] [address] Dr. Venkat Sloan ANTISTREPTOLYSIN O AB (ASO)o n 09-27-2021 Antistreptolysin O Ab <20.0 Normal 0.0-200.0 [facility] Comment on above: Performed By: #### P REGQNT #### [facility] [address] [place] [address] Dr. Venkat Sloan RHEUMATOID FACTORon 09-28-19 RA Latex Turbid. <10.0 Normal <14.0 [facility] Comment on above: Performed By: #### R F #### [facility] [address] [place] [address] Dr. Venkat Sloan CBC AUTO DIFFon 09-26-2021 BASO # 0.0 103/ul Normal 0.0-0.1 [facility] Comment on above: Performed By: #### T SH #### [facility] [address] [place] [address] Dr. Venkat Sloan Basophils/100 WBC (Bld) 0.3 % Normal 0.2-2.0 [facility] Comment on above: Performed By: #### T SH #### [facility] [address] [place] [address] Dr. Venkat Sloan EO # 0.1 103/ul Normal 0.0-0.7 [facility] Comment on above: Performed By: #### T SH #### [facility] [address] [place] [address] Dr. Venkat Sloan Eosinophils/100 WBC (Bld) 1.8 % Normal 0.9-7.0 [facility] Comment on above: Performed By: #### T SH #### [facility] [address] [place] [address] Dr. Venkat Sloan Erythrocyte distribution width (RBC) [Ratio] 12.9 % Normal 11.0-15.0 [facility] Comment on above: Performed By: #### T SH #### [facility] [address] [place] [address] Dr. Venkat Sloan Hematocrit (Bld) [Volume fraction] 39.8 % Normal 36.0-48.0 [facility] Comment on above: Performed By: #### T SH #### [facility] [address] [place] [address] Dr. Venkat Sloan Hemoglobin (Bld) [Mass/Vol] 12.7 g/dL Normal 12.0-16.0 [facility] Comment on above: Performed By: #### T SH #### [facility] [address] [place] [address] Dr. Venkat Sloan IG # 0.02 10e3/ul Normal 0.00-0.03 [facility] Comment on above: Performed By: #### T SH #### [facility] [address] [place] [address] Dr. Venkat Sloan IG % 0.3 % Normal 0.0-0.5 [facility] Comment on above: Performed By: #### T SH #### [facility] [address] [place] [address] Dr. Venkat Sloan LYMPH # 1.5 103/ul Normal 1.2-3.8 [facility] Comment on above: Performed By: #### T SH #### [facility] [address] [place] [address] Dr. Venkat Sloan Lymphocytes/100 WBC (Bld) 21.5 % Normal 20.5-60.0 [facility] Comment on above: Performed By: #### T SH #### [facility] [address] [place] [address] Dr. Venkat Sloan MANUAL DIFF REQ NO Normal [facility] Comment on above: Performed By: #### T SH #### [facility] [address] [address] [address] Venkat Sloan MCH (RBC) [Entitic mass] 28.5 pg Normal 26.7-34.0 [facility] Comment on above: Performed By: #### T SH #### [facility] [address] [place] [address] Dr. Venkat Sloan MCHC (RBC) [Mass/Vol] 31.9 g/dL Normal 29.9-35.2 [facility] Comment on above: Performed By: #### T SH #### [facility] [address] [place] [address] Dr. Venkat Sloan MCV (RBC) [Entitic vol] 89.2 fL Normal 81.0-99.0 [facility] Comment on above: Performed By: #### T SH #### [facility] [address] [place] [address] Dr. Venkat Sloan MONO # 0.5 103/ul Normal 0.3-0.8 [facility] Comment on above: Performed By: #### T SH #### [facility] [address] [place] [address] Dr. Venkat Sloan Monocytes/100 WBC (Bld) 7.6 % Normal 1.7-12.0 [facility] Comment on above: Performed By: #### T SH #### [facility] [address] [place] [address] Dr. Venkat Sloan NEUT # 4.9 103/ul Normal 1.4-6.5 [facility] Comment on above: Performed By: #### T SH #### [facility] [address] [place] [address] Dr. Venkat Sloan Neutrophils/100 WBC (Bld) 68.5 % Normal 43.0-75.0 [facility] Comment on above: Performed By: #### T SH #### [facility] [address] [place] [address] Dr. Venkat Sloan Platelet mean volume (Bld) [Entitic vol] 8.8 fL Critically low 9.5-13.5 [facility] Comment on above: Performed By: #### T SH #### [facility] [address] [address] [address] Venkat Sloan PLT 297 103/ul Normal 150-450 [facility] Comment on above: Performed By: #### T SH #### [facility] [address] [address] [address] Venkat Sloan RBC 4.46 106/ul Normal 4.20-5.40 [facility] Comment on above: Performed By: #### T SH #### [facility] [address] [address] [address] Venkat Sloan WBC 7.1 103/ul Normal 4.0-11.0 [facility] Comment on above: Performed By: #### T SH #### [facility] [address] [place] [address] Dr. Venkat Sloan CRPon 09-26-2021 CRP [Mass/Vol] mg/L Normal <=1.0 [facility] Comment on above: Performed By: #### P REGQNT #### [facility] [address] [place] [address] Dr. Venkat Sloan FREE THYROXINE INDEX T7on FTI 2.71 Normal 1.30-4.50 [facility] Comment on above: Performed By: #### P REGQNT #### [facility] [address] [place] [address] Dr. Venkat Sloan T3U 33.0 % Normal 30.0-39.0 [facility] Comment on above: Performed By: #### P REGQNT #### [facility] [address] [place] [address] Dr. Venkat Sloan T4 [Mass/Vol] 8.20 ug/dL Normal 4.80-13.90 [facility] Comment on above: Performed By: #### P REGQNT #### [facility] [address] [place] [address] Dr. Venkat Sloan GLYCOHEMOGLOBIN A1Con 2021 ADA RECOMMENDATION SEE BELOW Normal [facility] Comment on above: Result Comment: ADA RECOMMENDED LIMIT 4.0 - 6.0 ADA THERAPEUTIC TARGET < 7.0 ACTION SUGGESTED > 7.0 Performed By: #### I NFLUAB #### [facility] [address] [address] [address] Venkat Sloan Glucose [Mass/Vol] 105 mg/dL Normal [facility] Comment on above: Performed By: #### I NFLUAB #### [facility] [address] [address] [address] Venkat Sloan HbA1c (Bld) [Mass fraction] 5.3 % Normal 4.5-6.2 [facility] Comment on above: Performed By: #### I NFLUAB #### [facility] [address] [place] [address] Dr. Venkat Sloan IRONon 09-26-2021 Iron [Mass/Vol] 49.0 ug/dL Critically low 50.0-170.0 [facility] Comment on above: Performed By: #### P REGQNT #### [facility] [address] [place] [address] Dr. Venkat Sloan LIPID PROFILEon 09-26-2021 CHOL-HDL RATIO NORM SEE BELOW Normal [facility] Comment on above: Result Comment: 3.3 - 4.4 LOW RISK 4.4 - 7.1 AVERAGE RISK 7.1 - 11.0 MODERATE RISK >11.0 HIGH RISK Performed By: #### P REGQNT #### [facility] [address] [place] [address] Dr. Venkat Sloan Cholesterol [Mass/Vol] 197 mg/dL Normal <=200 [facility] Comment on above: Performed By: #### P REGQNT #### [facility] [address] [address] [address] Venkat Sloan Cholesterol in HDL [Mass/Vol] 64 mg/dL Critically high 40-60 [facility] Comment on above: Performed By: #### P REGQNT #### [facility] [address] [address] [address] Venkat Sloan Cholesterol in LDL [Mass/Vol] 123.4 mg/dL Normal [facility] Comment on above: Performed By: #### P REGQNT #### [facility] [address] [address] [address] Venkat Sloan Cholesterol.total/Choles terol in HDL [Mass ratio] 3.1 {ratio} Normal [facility] Comment on above: Performed By: #### P REGQNT #### [facility] [address] [address] [address] Venkat Sloan HDL NORMAL > or = 60 mg/dl - LO W CARDIOVASCULAR RISK <40 mg/dl - HIGH CARDIOVASCULAR RISK Normal [facility] Comment on above: Performed By: #### P REGQNT #### [facility] [address] [address] [address] Venkat Sloan LDL CALC NORMAL SEE BELOW Normal [facility] Comment on above: Result Comment: <100 mg/dl OPTIMAL 100 - 129 mg/dl NEAR OR ABOVE OPTIMAL 130 - 159 mg/dl BORDERLINE HIGH 160 - 189 mg/dl HIGH >190 mg/dl VERY HIGH Performed By: #### P REGQNT #### [facility] [address] [address] [address] Venkat Sloan Triglyceride [Mass/Vol] 48 mg/dL Normal <=150 T [facility] Comment on above: Performed By: #### P REGQNT #### [facility] [address] [address] [address] Venkat Sloan VLDL CALC 9.6 mg/dL Normal [facility] Comment on above: Performed By: #### P REGQNT #### [facility] [address] [address] [address] Venkat Sloan PROF 14(COMP METB)on 022 Albumin [Mass/Vol] 4.0 g/dL Normal 3.4-5.0 [facility] Comment on above: Performed By: #### I NFLUAB #### [facility] [address] [address] [address] Venkat Sloan Albumin/Globulin [Mass ratio] 1.3 {ratio} Normal [facility] Comment on above: Performed By: #### I NFLUAB #### [facility] [address] [address] [address] Venkat Sloan ALP [Catalytic activity/Vol] 58 U/L Normal 46-116 [facility] Comment on above: Performed By: #### I NFLUAB #### [facility] [address] [address] [address] Venkat Sloan ALT [Catalytic activity/Vol] 20 U/L Normal 14-59 [facility] Comment on above: Performed By: #### I NFLUAB #### [facility] [address] [address] [address] Venkat Sloan Anion gap [Moles/Vol] 10.4 mmol/L Normal Th [facility] Comment on above: Performed By: #### I NFLUAB #### [facility] [address] [address] [address] Venkat Sloan AST [Catalytic activity/Vol] 11 U/L Critically low 15-37 [facility] Comment on above: Performed By: #### I NFLUAB #### [facility] [address] [address] [address] Venkat Sloan Bilirubin [Mass/Vol] 0.8 mg/dL Normal 0.2-1.0 [facility] Comment on above: Performed By: #### I NFLUAB #### [facility] [address] [address] [address] Venkat Sloan Calcium [Mass/Vol] 9.0 mg/dL Normal 8.5-10.1 [facility] Comment on above: Performed By: #### I NFLUAB #### [facility] [address] [address] [address] Venkat Sloan Chloride [Moles/Vol] 106 mmol/L Normal 98-107 [facility] Comment on above: Performed By: #### I NFLUAB #### [facility] [address] [address] [address] Venkat Sloan CO2 [Moles/Vol] 27.0 mmol/L Normal 21.0-32.0 [facility] Comment on above: Performed By: #### I NFLUAB #### [facility] [address] [address] [address] Venkat Sloan Creatinine [Mass/Vol] 0.70 mg/dL Normal 0.55-1.02 [facility] Comment on above: Performed By: #### I NFLUAB #### [facility] [address] [address] [address] Venkat Sloan EGFR-AF COMORAN >60 Normal >=60 [facility] Comment on above: Performed By: #### I NFLUAB #### [facility] [address] [place] [address] Dr. Venkat Sloan EGFR-NON AF COMORAN >60 Normal >=60 [facility] Comment on above: Performed By: #### I NFLUAB #### [facility] [address] [place] [address] Dr. Venkat Sloan Globulin (S) [Mass/Vol] 3.2 g/dL Normal T [facility] Comment on above: Performed By: #### I NFLUAB #### [facility] [address] [place] [address] Dr. Venkat Sloan Glucose [Mass/Vol] 92 mg/dL Normal 74-106 [facility] Comment on above: Performed By: #### I NFLUAB #### [facility] [address] [place] [address] Dr. Venkat Sloan Potassium [Moles/Vol] 4.4 mmol/L Normal 3.5-5.1 [facility] Comment on above: Performed By: #### I NFLUAB #### [facility] [address] [place] [address] Dr. Venkat Sloan Protein [Mass/Vol] 7.2 g/dL Normal 6.4-8.2 [facility] Comment on above: Performed By: #### I NFLUAB #### [facility] [address] [place] [address] Dr. Venkat Sloan Sodium [Moles/Vol] 139 mmol/L Normal 136-145 [facility] Comment on above: Performed By: #### I NFLUAB #### [facility] [address] [address] [address] Venkat Sloan Urea nitrogen [Mass/Vol] 13.0 mg/dL Normal 7.0-18.0 [facility] Comment on above: Performed By: #### I NFLUAB #### [facility] [address] [place] [address] Dr. Venkat Sloan Urea nitrogen/Creatinine [Mass ratio] 18.6 mg/mg Normal [facility] Comment on above: Performed By: #### I NFLUAB #### [facility] [address] [place] [address] Dr. Venkat Solan TSHon 09-26-2021 TSH 1.318 uIU/mL Normal 0.358-3.740 [facility] Comment on above: Performed By: #### P REGQNT #### [facility] [address] [place] [address] Dr. Venkat Sloan URIC ACID SERUMon 09-26-2021 Urate [Mass/Vol] 3.9 mg/dL Normal 2.6-6.0 [facility] Comment on above: Performed By: #### P REGQNT #### [facility] [address] [place] [address] Dr. Venkat Sloan XR CSPINE MIN 4 [...] DUDLEY HERNÁNDEZ Date: 2021-09-24 21:16 Normal [facility] PREG QUANT HCGon 08-17-2021 HCG QUANT <1 Normal [facility] Comment on above: Performed By: #### I NFLUAB #### [facility] [address] [place] [address] Dr. Venkat Sloan HCG RANGE SEE BELOW Normal [facility] Comment on above: Result Comment: 5-50 0-1 WEEK 40-300 1-2 WEEKS 100-1,000 2-3 WEEKS 500-6,000 3-4 WEEKS 5,000-200,000 1-2 MONTHS 10,000-100,000 2-3 MONTHS 3,000-50,000 2ND TRIMESTER 1,000-50,000 3RD TRIMESTER Performed By: #### I NFLUAB #### [facility] [address] [place] [address] Dr. Venkat Sloan US PELVIS AND TRANSVAGon [...] DUDLEY HERNÁNDEZ Date: 2021-08-17 07:01 Normal [facility] COVID Quick Testingon 2020 Result Negative [employer] Other Vital Signs Date Time Vital Sign Value Performing Clinician Facility 05-22-2023 09:0500 Body height 154.94 cm [facility] 05-22-2023 09:050 Body mass index (BMI) [Ratio] 30.8 kg/m2 [facility] 05-22-2023 09:050 Body temperature 98.1 [degF] [facility] 05-22-2023 09:050 Body weight 74.04 kg [facility] 05-22-2023 09:27-0500 Heart rate 78 /min [facility] 05-22-2023 09:27-0500 Respiratory rate 16 /min [facility] 05-22-2023 09:27-0500 SaO2% (BldA) [Mass fraction] 98 % [facility] 05-10-2023 15:14-0500 Body mass index (BMI) [Ratio] 30.04 kg/m2 Ricardo Jennifer DO Work Phone: [facility] 05-10-2023 15:14-0500 Body weight 72.12 kg Ricardo Jennifer DO Work Phone: [facility] 05-10-2023 15:14-0500 Diastolic blood pressure 70 mm[Hg] Ricardo Jennifer DO Work Phone: [facility] 05-10-2023 15:14-0500 Systolic blood pressure 110 mm[Hg] Ricardo Jennifer [employer] Work Phone: [facility] 01-27-2021 18:45-0400 Body height 154.94 cm Mohini Buttault Other [employer] Other 01-27-2021 18:45-0400 Body mass index (BMI) [Ratio] 28.34 kg/m2 Mohini Juan Other [employer] Other 01-27-2021 18:45-0400 Body temperature 96.4 [degF] Mohini Juan Other [employer] Other 01-27-2021 18:45-0400 Body weight 68.04 kg Mohini Juan Other [employer] Other 01-27-2021 18:45-0400 Respiratory rate 18 /min Mohini Juan Other [employer] Other 01-27-2021 18:45-0400 SaO2% (BldA) [Mass fraction] 99 % Mohini Buttault Other [employer] Other 12-22-2020 11:45-0400 Body height 154.94 cm Dudley Freeman Other [employer] Other 12-22-2020 11:45-0400 Body mass index (BMI) [Ratio] 28.34 kg/m2 Dudley Lydia Other [employer] Other 12-22-2020 11:45-0400 Body weight 68.04 kg Dudley Freeman Other [employer] Other Encounters Encounter Date Encounter Type Care [...] Not Available Start: 05-22-2023 End: 05-22-2023 ambulatory [facility] Work Phone: Start: 05-22-2023 End: 05-22-2023 Patient encounter procedure [facility] Work Phone: Start: 05-10-2023 [...] other preprocedural examination DR RICARDO RODRIGUEZ . [facility] Start: 07-08-2022 End: 07-08-[address] RICARDO [...] without abnormal findings DR IRON GARCIA . [facility] Start: 09-26-2021 End: 09-27-[address] IRON [...] 01-27-2021 End: 01-27-2021 ambulatory Mohini Martinez Other [employer] Other Start: 01-27-2021 Office outpatient vi sit 15 minutes Mohini Martinez [facility] Start: 12-22-2020 Office outpatient ne w 45 minutes Dudley Freeman [facility] G[facility] Procedures Date Procedure Procedure Detail Performing Clinician Start: 05-22-2023 POC COVID/FLU/RSV Start: 05-10-2023 Urnls dip stick/tabl et rgnt non-auto w/o micrscp Ricardo Rodriguez DO Work Phone: Plan of Treatment Date Care Activity Detail Author Start: 05-26-2023 End: 05-26-2023 Patient encounter procedure 05/26/2023 9:50 AM EST Routine [facility] OB [address] [place] [address] Ricardo Rodriguez, DO [address] [place] [address] [facility] BCP OB Start: 05-10-2023 End: 05-10-2024 CBC panel - Blood by Automated count CBC Lab Routine Diabetes mellitus screening Expected: 05/10/2023 (Approximate), Expires: 05/10/2024 [facility] Healthcare Work Phone: Comment on above: Expected: 05/10/2023 (Approximate), Expires: 05/10/2024 Start: 05-10-2023 End: 05-10-2024 Measurement of glucose 1 hour after glucose challenge for glucose tolerance test Glucose tolerance, 1 hour Lab Routine Diabetes mellitus screening Expected: 05/10/2023 (Approximate), Expires: 05/10/2024 [facility] Comment on above: Expected: 05/10/2023 (Approximate), Expires: 05/10/2024 Start: 11-26-2022 Influenza vaccination Influenz a Vaccine (#1) [facility] Immunizations Immunization Date Immunization Notes Care Provider [facility] 01-25-2022 influenza virus vacc ine, unspecified formulation Ricardo Jennifer DO Work Phone: [facility] Healthcare Payers Date Payer Category Payer Unknown BCBS BCBS [id number] [id number] 2022-Present [phone] [address] [place] [address] [id number] 1993 Unknown [id number] 2.16.840.1.534272.3.579.2.593 1993 Unknown [id number] 2.16.840.1.569495.3.579.2.593 1993 Unknown [id number] 2.16.840.1.249154.3.579.2.593 1993 Unknown [id number] 2.16.840.1.662027.3.579.2.593 1993 Unknown [id number] 2.16.840.1.002747.3.579.2.593 1993 Unknown [id number] 2.16.840.1.081221.3.579.2.593 1993 Unknown [id number] 2.16.840.1.048485.3.579.2.593 1993 Unknown [id number] 2.16.840.1.352722.3.579.2.59 1993 Unknown [id number] 2.16.840.1.280023.3.579.2.593 1993 Unknown [id number] 2.16.840.1.164111.3.579.2.59 1993 Unknown [id number] 2.16.840.1.232015.3.579.2.593 1993 Unknown [id number] 2.16.840.1.096396.3.579.2.59 1993 Unknown [id number] 2.16.840.1.910586.3.579.2.593 1993 Unknown [id number] 2.16.840.1.504523.3.579.2.593 1993 Unknown [id number] 2.16.840.1.985166.3.579.2.59 1993 Unknown [id number] 2.16.840.1.792340.3.579.2.593 1993 Unknown [id number] 2.16.840.1.696996.3.579.2.593 1993 Unknown [id number] 2.16.840.1.488150.3.579.2.593 1993 Unknown [id number] 2.16.840.1.019133.3.579.2.593 1993 Unknown [id number] 2.16.840.1.400390.3.579.2.593 1993 Unknown [id number] 2.16.840.1.457217.3.579.2.593 1993 Unknown [id number] 2.16.840.1.257775.3.579.2.59 1993 Unknown [id number] 2.16.840.1.391698.3.579.2.593 1993 Unknown [id number] 2.16.840.1.706758.3.579.2.59 1993 Unknown [id number] 2.16.840.1.023336.3.579.2.593 1993 Unknown [id number] 2.16.840.1.478363.3.579.2.1258 1993 Unknown [id number] 2.16.840.1.302468.3.579.2.1258 1993 Unknown [id number] 2.16.840.1.863115.3.579.2.1258 1993 Unknown [id number] 2.16.840.1.693510.3.579.2.125 1993 Unknown [id number] 2.16.840.1.586528.3.579.2.1258 1993 Unknown [id number] 2.16.840.1.351440.3.579.2.1258 1993 Unknown [id number] 2.16.840.1.423733.3.579.2.1258 1993 Unknown [id number] 2.16.840.1.922394.3.579.2.1259 1993 Unknown [id number] 2.16.840.1.759897.3.579.2.1259 1993 Unknown [id number] 2.16.840.1.999831.3.579.2.1259 1993 Unknown [id number] 2.16.840.1.532216.3.579.2.1259 1959 Unknown [id number] 1959 Unknown [id number] Self-pay Self Pay [id number] Unknown [id number] 2.16. 840.1.472065.19 Unknown O [id number] Unknown Osiel BC/BS [id number] Social History Date Type Detail Facility Unknown if ever smoked [facility] Other Start: 01-28-2023 Sex Assigned At [facility] Other Start: 01-28-2023 End: 05-22-2023 Tobacco smoking [...] of Present illness Narrative 05-10-2023 Melissa Thornton, [employer] - 05/10/2023 2:50 PM EST Note Date [...] nursing note reviewed. Exam conducted with a idea man present. Vitals: Estimated body mass index is [...] documented in this encounter [facility] Clinical Note 07-08-2022 Note Date & Type Note Facility 07-08-2022 Note OPERATIVE NOTE OPERATION DATE: 07/08/2022 PROCEDURE: Diagnostic laparoscopy with fulguration of ovarian endometrial implant. PREOPERATIVE DIAGNOSIS: Pelvic pain. POSTOPERATIVE DIAGNOSIS: Pelvic pain. ANESTHESIA: General. SURGEON: Ricardo Rodriguez D.O. [employer]: DEVIN Miles URINE OUTPUT: Yellow and clear. [...] to Recovery Room in stable condition. [facility] Evaluation note 12-22-2020 Note Date & Type Note Facility 12-22-2020 Evaluation note Encounter Date Diagnosis Assessment Notes Nov, Irritable bowel syndrome with both constipation and diarrhea (ICD-10 - K58.2) LABS INDICATED ABOVE START TRIAL OF DICYCLOMINE 20 BID RTO 4 WEEKS [facility] Other Evaluation note Note Date & Type Note Facility Evaluation note [facility] Other Evaluation note Note Date & Type Note Facility Evaluation note Diagnosis Second trimester state, incidental Diabetes mellitus screening Screening for diabetes mellitus documented in this encounter [facility] Evaluation note Note Date & Type Note Facility Evaluation note No assessment information availa [facility] Work Phone: History general Narrative - Reported Note Date & Type Note Facility History general Narrative - Reported Type Medical History anxiety/depression Medical History IBS Surgical History TONSILLECTOMY [facility] Other History general Narrative - Reported Note Date & Type Note Facility History general Narrative - Reported [facility] Other Summary Purpose Family History No Family [...] DATE CREATED AUTHOR AUTHOR'S ORGANIZ ATION 08/06/2023 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 [facility]. provides no warranty or guarantee of the accuracy or completeness of information in this document.
[2023-08-12 00:33] LABS: Hematocrit 30.4 % (36.0-48.0); Hemoglobin 9.8 g/dL (12.0-16.0); Mean Corpuscular HGB Conc 32.2 g/dL (29.9-35.2); Mean Corpuscular Hemoglobin 26.8 pg (26.7-34.0); Mean Corpuscular Volume 83.3 fL (81.0-99.0); Platelet Count 263 10^3/uL (150-450); Red Blood Count 3.65 10^6/uL (4.20-5.40); Red Cell Distribution Width 13.1 % (11.0-15.0); White Blood Count 12.9 10^3/uL (4.0-11.0)
[2023-08-12] MEDS: 0.9 % SODIUM CHLORIDE 1,000 ML 125 ML IV (00:45)
[2023-08-12 00:53] LABS: Amphetamine Screen Urine NEGATIVE (NEGATIVE); Benzodiazepines Screen Urine NEGATIVE (NEGATIVE); Cannabinoid Screen Urine NEGATIVE (NEGATIVE); Cocaine Screen Urine NEGATIVE (NEGATIVE); Methadone Screen Urine NEGATIVE (NEGATIVE); Methamphetamines Screen Urine NEGATIVE (NEGATIVE); Opiate Screen Urine NEGATIVE (NEGATIVE); Phencyclidine Screen Urine NEGATIVE (NEGATIVE); Tricyclic Antidepressant Urine NEGATIVE (NEGATIVE)
[2023-08-12 00:54] LABS: Barbiturates Screen Urine NEGATIVE (NEGATIVE); Buprenorphine Screen Urine NEGATIVE (NEGATIVE); Oxycodone Screen Urine NEGATIVE (NEGATIVE)
[2023-08-12] MEDS: OXYTOCIN/0.9 % SODIUM CHLORIDE 10 UNITS/500 ML PLAST..BAG 6 UNIT IV (01:01)
[2023-08-12] MEDS: ACETAMINOPHEN 500 MG TABLET 1000 MG PO (04:30)
[2023-08-12] MEDS: 0.9 % SODIUM CHLORIDE 1,000 ML 1000 ML IV (08:19)
[2023-08-12] MEDS: OXYTOCIN/0.9 % SODIUM CHLORIDE 20 UNITS/1,000 ML PLAST..BAG 125 UNIT IV (13:00)
--- NOTE | 2023-08-12 13:11 | PM.OBPRCVD ---
Procedure Intrapartal events: None Induction method: per pitocin protocol Delivery augmentation: rupture of membranes and pitocin Delivery monitor: external FHT and external uterine Route of delivery: Episiotomy Description: none L&D Laceration Description: perineal - 1st degree Delivery repair: Vicryl Estimated blood loss (mL): 250 Anesthesia type: None Disposition: floor Infant Delivery date: 08/12/23 Gender: female presentation: vertex Placental delivery description: Spontaneous cord description: 3 Vessels
[2023-08-12] MEDS: BENZOCAINE/MENTHOL 85 GRAM SPRAY BOTTLE 1 APPLIC TOPICAL (15:26)
[2023-08-12] MEDS: IBUPROFEN 600 MG TABLET PO (15:26)
[2023-08-12] MEDS: GLYCERIN/WITCH HAZEL PADS 1 PAD TOPICAL (15:27)
[2023-08-13] VITALS (7 sets, daily range): BP systolic 119–135; BP diastolic 56–76; PULSE 56–63; TEMP 35.9–36.8
[2023-08-13] MEDS: IBUPROFEN 600 MG TABLET PO ×3 (04:20→18:27)
[2023-08-13 05:43] LABS: Basophils Absolute Auto 0.1 10^3/uL (0.0-0.1); Basophils Percent Auto 0.4 % (0.2-2.0); Eosinophils Absolute Auto 0.1 10^3/uL (0.0-0.7); Eosinophils Percent Auto 0.7 % (0.9-7.0); Hematocrit 27.5 % (36.0-48.0); Hemoglobin 8.8 g/dL (12.0-16.0); Immature Granulocytes Abs Auto 0.09 10^3/uL (0.00-0.03); Immature Granulocytes Pct Auto 0.7 % (0.0-0.5); Lymphocytes Absolute Auto 2.3 10^3/uL (1.2-3.8); Lymphocytes Percent Auto 16.6 % (20.5-60.0); Mean Corpuscular Hemoglobin 27.2 pg (26.7-34.0); Mean Corpuscular Volume 84.9 fL (81.0-99.0); Mean Platelet Volume 10.6 fL (9.5-13.5); Monocytes Absolute Auto 1.5 10^3/uL (0.3-0.8); Monocytes Percent Auto 10.9 % (1.7-12.0); Neutrophils Absolute Auto 9.8 10^3/uL (1.4-6.5); Neutrophils Percent Auto 70.7 % (43.0-75.0); Platelet Count 207 10^3/uL (150-450); Red Blood Count 3.24 10^6/uL (4.20-5.40); Red Cell Distribution Width 13.2 % (11.0-15.0); White Blood Count 13.8 10^3/uL (4.0-11.0)
--- NOTE | 2023-08-13 08:22 | P.OBPN_ITS ---
OB - PN: Subj Subjective Patient comments: no complaints, pain well controlled and tolerating diet [place] status: doing well Exam Constitutional Vital Signs, click to edit/add: Last Vital Signs Temp 97.5 F L 08/13/23 00:21 Pulse 56 L 08/13/23 00:21 Resp 18 08/12/23 08:13 BP 119/56 08/13/23 00:21 O2 Del Method Room Air 08/12/23 00:50 Documenting provider has reviewed patient's vital signs: yes Common normals: no apparent distress and oriented x3 GI Inspection: normal to inspection Other: Fundus - firm below umbilicus, nontender Other: minimal bleeding Results Labs Labs: Short CBC 08/13/23 Range/Units 05:38 WBC 13.8 H (4.0-11.0) 10^3/uL Hgb 8.8 L (12.0-16.0) g/dL Hct 27.5 L (36.0-48.0) % Plt Count 207 (150-450) 10^3/uL OB - PN: A/P Assessment and Plan (1) Encounter for assessment: Plan Normal Plan - Vaginal Delivery day: 2 Plan: routine care, discharge home and follow up 6 weeks Time Spent with Patient Time: Total time spent is greater than 50% in coordination of care (as documented) at patient's floor/unit and/or counseling patient: Total time spent with greater than 50% in coordination of care (as documented) at patient's floor/unit and/or counseling patient: less than 15 minutes
--- NOTE | 2023-08-13 08:25 | PM.OBDS ---
DS: Providers Provider Date of admission: 08/12/23 00:00 Primary care physician: Erik Garcia MD Consults: 08/12/23 Consult to Anesthesiology Routine Consulting Provider: Franc Pederson Reason for consultation: epidural Attending physician on discharge: Wisam Rodriguez Discharging clinician: Maria Finney Anticipated date of discharge: 08/13/23 DS: Diagnosis Discharge Diagnosis (1) Encounter for assessment: Plan Normal Home Follow up with Dr Rodriguez in 6 weeks OB - DS: Summary Hospital Course Hospital Course: Normal course Complications complications: none Delivery method: spontaneous vaginal delivery Gender: female Status at Discharge Functional status at discharge: independent ambulation Time Spent with Patient Time attestation: Total time spent providing and/or coordinating discharge services: Time spent: less than 30 minutes Exam Constitutional Vital Signs, click to edit/add: Last Vital Signs Temp 97.5 F L 08/13/23 00:21 Pulse 56 L 08/13/23 00:21 Resp 18 08/12/23 08:13 BP 119/56 08/13/23 00:21 O2 Del Method Room Air 08/12/23 00:50 DS: Data Data Completed and Pending Labs on day of discharge: Labs from last 24 hours 08/13/23 05:38 WBC 13.8 H RBC 3.24 L Hgb 8.8 L Hct 27.5 L MCV 84.9 MCH 27.2 MCHC 32.0 RDW 13.2 Plt Count 207 MPV 10.6 Neut % (Auto) 70.7 Lymph % (Auto) 16.6 L [place]one % (Auto) 10.9 Eos % (Auto) 0.7 L Baso % (Auto) 0.4 Neut # (Auto) 9.8 H Lymph # (Auto) 2.3 [place]osh[place] # (Auto) 1.5 H Eos # (Auto) 0.1 Baso # (Auto) 0.1 Abs Immat Gran (auto) 0.09 H Imm/Tot Granulo (auto) 0.7 H Discharge Plan Discharge Disposition: Home, Self-Care Condition: Good Assessment: Normal Health Concerns: None Plan of Treatment: follow up with Dr Rodriguez for exam Discharge Medications: Continued omeprazole 20 mg capsule,delayed release(DR/EC) 20 mg PO DAILY Patient Comments: Pt takes 40 mg daily in the AM Complete 14 mg iron- 400 mcg tablet 1 tab PO DAILY Activity: resume usual activities as tolerated Activity Detail: nothing per vagina for 6 weeks Diet: advance to your usual diet Print Language: Citizen Of [place] Forms: Portal Instructions Follow Up Appointments: 6 weeks
[2023-08-13] MEDS: DOCUSATE SODIUM 100 MG CAPSULE PO ×2 (08:34→21:53)
[2023-08-14 08:10] VITALS: BP 132/66; PULSE 58; TEMP 36.7
--- NOTE | 2023-08-14 08:12 | P.OBPN_ITS ---
OB - PN: Subj Subjective Patient comments: no complaints [place] status: doing well Exam Constitutional Vital Signs, click to edit/add: Last Vital Signs Temp 96.6 F L 08/13/23 23:26 Pulse 63 08/13/23 23:27 Resp 16 08/13/23 16:56 BP 123/60 08/13/23 23:27 O2 Del Method Room Air 08/13/23 16:56 Documenting provider has reviewed patient's vital signs: yes Common normals: no apparent distress GI Common normals: soft to palpation and non-tender Other: Uterus - firm, nontender, below umbilicus OB - PN: A/P Assessment and Plan (1) Encounter for assessment: Plan Home today Baby cleared for Home, too Plan - Vaginal Delivery day: 2 Plan: routine care Time Spent with Patient Time: Total time spent is greater than 50% in coordination of care (as documented) at patient's floor/unit and/or counseling patient: Total time spent with greater than 50% in coordination of care (as documented) at patient's floor/unit and/or counseling patient: less than 15 minutes
[2023-08-14 08:15] VITALS: BP 132/66; PULSE 58
[2023-08-14] MEDS: IBUPROFEN 600 MG TABLET PO (08:20)
[2023-08-14] MEDS: DOCUSATE SODIUM 100 MG CAPSULE PO (08:20)
--- NOTE | 2023-08-14 08:30 | P.DS_ITS ---
DS: Providers Provider Date of admission: 08/12/23 00:00 Primary care physician: Erik Garcia MD Admitting clinician: Wisam Rodriguez Attending physician on admission: Wisam Rodriguez Consults: 08/12/23 Consult to Anesthesiology Routine Consulting Provider: Franc Pederson Reason for consultation: epidural Attending physician on discharge: Wisam Rodriguez Discharging clinician: Maria Finney Anticipated date of discharge: 08/14/23 DS: Diagnosis Discharge Diagnosis (1) Encounter for assessment: OB - DS: Summary Hospital Course Hospital Course: Normal course Delivery method: spontaneous vaginal delivery Gender: female Time Spent with Patient Time attestation: Total time spent providing and/or coordinating discharge services: Exam Constitutional Vital Signs, click to edit/add: Last Vital Signs Temp 96.6 F L 08/13/23 23:26 Pulse 58 L 08/14/23 08:15 Resp 16 08/13/23 16:56 BP 132/66 08/14/23 08:15 O2 Del Method Room Air 08/13/23 16:56 Discharge Plan Discharge Disposition: Home, Self-Care Condition: Good Assessment: Normal Health Concerns: None Plan of Treatment: follow up with Dr Rodriguez for exam Discharge Medications: Continued omeprazole 20 mg capsule,delayed release(DR/EC) 20 mg PO DAILY Patient Comments: Pt takes 40 mg daily in the AM Complete 14 mg iron- 400 mcg tablet 1 tab PO DAILY Activity: resume usual activities as tolerated Activity Detail: nothing per vagina for 6 weeks Diet: advance to your usual diet Print Language: Monegas[place] Forms: Portal Instructions Follow Up Appointments: 6 weeks
== END 2023-08-14 10:15 | disposition home or self-care (01) | DRG 807 ==
PROVIDERS: Admitting Provider Obstetrics & Gynecology; PCP Family Medicine; Visit Provider Obstetrics & Gynecology Gynecology
DX: O70.0 First degree perineal laceration during delivery (principal); Z37.0 Single live birth; Z3A.39 39 weeks gestation of pregnancy
CPT/HCPCS: 36415; 59050; 59410; 80307; 85025; 85027; 86850; 86900; 86901; 96365; 96366; 96376

== ENCOUNTER 2023-08-15 10:06 | Outpatient (OUT) | payer BC, SELFPAY ==
--- OUTSIDE RECORDS SUMMARY | 2023-08-15 10:18 | XMS_ITS | CCD ---
Author Organization [facility] Care Team Providers Care Geometry Professor Name Role Phone Lydia Dudley Unavailable Mohini [...] Unavailable HOY ., DR PERDUE Consulting Unavailable [place], DR DUDLEY Emanuel Consulting Unavailable JENNIFER ., [...] Unavailable Iron Garcia MD Primary Care Provider [phone] JENNIFER, RICARDO Attending Unavailable JENNIFER, RICARDO Attending Unavailable JENNIFER, RICARDO Attending Unavailable JENNIFER, RICARDO Attending Unavailable JENNIFER, RICARDO Attending Unavailable JENNIFER, RICARDO Attending Unavailable JENNIFER, RICARDO Attending Unavailable JENNIFER, RICARDO Attending Unavailable JENNIFER, RICARDO Attending Unavailable JENNIFER, RICARDO Attending Unavailable JENNIFER, RICARDO Attending Unavailable JENNIFER, RICARDO Attending Unavailable Medications Current Medications Medication Drug Class(es) Dates Sig (Normalized) Sig (Original) [id number] 200 actuat albuterol 0.09 mg/actuat metered dose [...] DAILY NEEDED FOR NAUSEA 0 02/19/2023 Active Ozpytl13-Mhgp Fum-Folic Ac-Om3 (One A Day Women's Dha) 28 mg iron- 800 mcg combo pack (1 source) Start: 05-22-2023 Cstqgf43-Fzli Fum-Folic Ac-Om3 (One A Day Women's Dha) [...] SARS-CoV-2 (COVID-19) RNA SHIRIN+probe Ql (Unsp spec) [facility] Urinalysis macro (dipstick) panel (U)on 05-10-2023 Bilirubin, UA Negative Negative - 4(70) +++ mg/dL [facility] Blood, UA Negative Negative - 50 Jayson/mcL [facility] Clarity, UA Clear [facility] Color, UA Yellow [facility] Glucose, UA Negative Negative - 2000(110) ++++ mg/dL [facility] Interpretation and review of laboratory results Abnormal [facility] Ketones, UA Positive Negative - 160(16) ++++ mg/dL [facility] Comment on above: trace Leukocytes, UA Trace Negative - 500+++ Lolita/mcL [facility] Nitrite, UA Negative Negative - Positive [facility] pH, UA 6.0 5 - 9 [facility] Protein, UA Negative Negative - 2000(20) ++++ mg/dL [facility] Spec Grav, UA 1.030 1 - 1.03 [facility] Urobilinogen, UA 0.2 0.2 - 12 mg/dL [facility] CBC AUTO DIFFon 07-08-2022 BASO # 0.0 103/ul Normal 0.0-0.1 [facility] Comment on above: Performed By: #### R F #### [facility] Laboratory [address] [place] [address] Dr. Venkat Sloan Basophils/100 WBC (Bld) 0.5 % Normal 0.2-2.0 [facility] Comment on above: Performed By: #### R F #### [facility] [address] [place] [address] Dr. Venkat Sloan EO # 0.1 103/ul Normal 0.0-0.7 [facility] Comment on above: Performed By: #### R F #### [facility] [address] [place] [address] Dr. Venkat Sloan Eosinophils/100 WBC (Bld) 1.7 % Normal 0.9-7.0 [facility] Comment on above: Performed By: #### R F #### [facility] [address] [place] [address] Dr. Venkat Sloan Erythrocyte distribution width (RBC) [Ratio] 12.7 % Normal 11.0-15.0 [facility] Comment on above: Performed By: #### R F #### [facility] [address] [place] [address] Dr. Venkat Sloan Hematocrit (Bld) [Volume fraction] 40.4 % Normal 36.0-48.0 [facility] Comment on above: Performed By: #### R F #### [facility] [address] [place] [address] Dr. Venkat Sloan Hemoglobin (Bld) [Mass/Vol] 13.1 g/dL Normal 12.0-16.0 [facility] Comment on above: Performed By: #### R F #### [facility] [address] [place] [address] Dr. Venkat Sloan IG # 0.02 10e3/ul Normal 0.00-0.03 [facility] Comment on above: Performed By: #### R F #### [facility] [address] [place] [address] Dr. Venkat Sloan IG % 0.3 % Normal 0.0-0.5 [facility] Comment on above: Performed By: #### R F #### [facility] [address] [place] [address] Dr. Venkat Sloan LYMPH # 2.0 103/ul Normal 1.2-3.8 [facility] Comment on above: Performed By: #### R F #### [facility] [address] [place] [address] Dr. Venkat Sloan Lymphocytes/100 WBC (Bld) 26.2 % Normal 20.5-60.0 [facility] Comment on above: Performed By: #### R F #### [facility] [address] [place] [address] Dr. Venkat Sloan MANUAL DIFF REQ NO Normal [facility] Comment on above: Performed By: #### R F #### [facility] [address] [place] [address] Dr. Venkat Sloan MCH (RBC) [Entitic mass] 28.4 pg Normal 26.7-34.0 [facility] Comment on above: Performed By: #### R F #### [facility] [address] [place] [address] Dr. Venkat Sloan MCHC (RBC) [Mass/Vol] 32.4 g/dL Normal 29.9-35.2 [facility] Comment on above: Performed By: #### R F #### [facility] [address] [place] [address] Dr. Venkat Sloan MCV (RBC) [Entitic vol] 87.4 fL Normal 81.0-99.0 [facility] Comment on above: Performed By: #### R F #### [facility] [address] [place] [address] Dr. Venkat Sloan MONO # 0.7 103/ul Normal 0.3-0.8 [facility] Comment on above: Performed By: #### R F #### [facility] [address] [place] [address] Dr. Venkat Sloan Monocytes/100 WBC (Bld) 8.8 % Normal 1.7-12.0 [facility] Comment on above: Performed By: #### R F #### [facility] [address] [place] [address] Dr. Venkat Sloan NEUT # 4.8 103/ul Normal 1.4-6.5 [facility] Comment on above: Performed By: #### R F #### [facility] [address] [place] [address] Dr. Venkat Sloan Neutrophils/100 WBC (Bld) 62.5 % Normal 43.0-75.0 [facility] Comment on above: Performed By: #### R F #### [facility] [address] [place] [address] Dr. Venkat Sloan Platelet mean volume (Bld) [Entitic vol] 8.5 fL Critically low 9.5-13.5 [facility] Comment on above: Performed By: #### R F #### [facility] [address] [place] [address] Dr. Venkat Sloan PLT 331 103/ul Normal 150-450 [facility] Comment on above: Performed By: #### R F #### [facility] [address] [place] [address] Dr. Venkat Sloan RBC 4.62 106/ul Normal 4.20-5.40 [facility] Comment on above: Performed By: #### R F #### [facility] [address] [place] [address] Dr. Venkat Sloan WBC 7.7 103/ul Normal 4.0-11.0 [facility] Comment on above: Performed By: #### R F #### [facility] [address] [place] [address] Dr. Venkat Sloan PREG QUANT HCGon 07-08-2022 HCG QUANT <1 Normal [facility] Comment on above: Performed By: #### P REGQNT #### [facility] [address] [place] [address] Dr. Venkat Sloan HCG RANGE SEE BELOW Normal [facility] Comment on above: Result Comment: 5-50 0.2-1 WEEK 50-500 1-2 WEEKS 100-5,000 2-3 WEEKS 500-10,000 3-4 WEEKS 1,000-50,000 4-5 WEEKS 10,000-100,000 5-6 WEEKS 15,000-200,000 6-8 WEEKS 10,000-100,000 2-3 MONTHS Performed By: #### P REGQNT #### [facility] [address] [place] [address] Dr. Venkat Sloan PROGESTERONEon 06-23-2022 Progesterone 5.7 ng/mL Normal [facility] Comment on above: Result Comment: Foll icular phase 0.1 - 0.9 Luteal phase 1.8 - 23.9 Ovulation phase 0.1 - 12.0 First trimester 11.0 - 44.3 Second trimester 25.4 - 83.3 Third trimester 58.7 - 214.0 Postmenopausal 0.0 - 0.1 Performed By: #### T SH #### [facility] [address] [place] [address] Dr. Venkat Sloan PREG QUANT HCGon 05-31-2022 HCG QUANT 1 mIU/mL Normal [facility] Comment on above: Performed By: #### P REGQNT #### [facility] [address] [place] [address] Dr. Venkat Sloan HCG RANGE SEE BELOW Normal [facility] Comment on above: Result Comment: 5-50 0.2-1 WEEK 50-500 1-2 WEEKS 100-5,000 2-3 WEEKS 500-10,000 3-4 WEEKS 1,000-50,000 4-5 WEEKS 10,000-100,000 5-6 WEEKS 15,000-200,000 6-8 WEEKS 10,000-100,000 2-3 MONTHS Performed By: #### P REGQNT #### [facility] [address] [place] [address] Dr. Venkat Sloan PROGESTERONEon 05-21-2022 Progesterone 12.4 ng/mL Normal [facility] Comment on above: Result Comment: Foll icular phase 0.1 - 0.9 Luteal phase 1.8 - 23.9 Ovulation phase 0.1 - 12.0 First trimester 11.0 - 44.3 Second trimester 25.4 - 83.3 Third trimester 58.7 - 214.0 Postmenopausal 0.0 - 0.1 Performed By: #### I NFLUAB #### [facility] [address] [place] [address] Dr. Venkat Sloan MRI BRAIN WO W [...] Date: 2022-05-04 08:42 Normal [facility] PREG QUANT HCGon 05-04-2022 HCG QUANT <1 Normal [facility] Comment on above: Performed By: #### R F #### [facility] [address] [address] [address] Venkat Sloan HCG RANGE SEE BELOW Normal [facility] Comment on above: Result Comment: 5-50 0.2-1 WEEK 50-500 1-2 WEEKS 100-5,000 2-3 WEEKS 500-10,000 3-4 WEEKS 1,000-50,000 4-5 WEEKS 10,000-100,000 5-6 WEEKS 15,000-200,000 6-8 WEEKS 10,000-100,000 2-3 MONTHS Performed By: #### R F #### [facility] [address] [id number] [address] Venkat Sloan XR HYSTEROSALPINGOGRAMon XR HYSTEROSALPINGOGRAM [...] by: LAM VELA Date: 2022-05-04 16:09 Normal [facility] PROGESTERONEon 04-24-2022 Progesterone 0.4 ng/mL Normal [facility] Comment on above: Result Comment: Foll icular phase 0.1 - 0.9 Luteal phase 1.8 - 23.9 Ovulation phase 0.1 - 12.0 First trimester 11.0 - 44.3 Second trimester 25.4 - 83.3 Third trimester 58.7 - 214.0 Postmenopausal 0.0 - 0.1 Performed By: #### I NFLUAB #### [facility] [address] [place] [address] Dr. Venkat Sloan CULTURE SPUTUMon 04-02-2022 CULTURE SPUTUM Culture Observations : NORMAL RESPIRATORY NATALEE. Normal [facility] Comment on above: Performed By: #### R F #### [facility] [address] [place] [address] Dr. Venkat Sloan SPUTUM GRAM STAINon 04-02-19 23 COMMENTS Normal [facility] Comment on above: Performed By: #### R F #### [facility] [address] [place] [address] Dr. Venkat Sloan DIPHTHEROIDS Normal [facility] Comment on above: Performed By: #### R F #### [facility] [address] [place] [address] Dr. Venkat Sloan EPITHELIALS <25 Normal [facility] Comment on above: Performed By: #### R F #### [facility] [address] [place] [address] Dr. Venkat Sloan FUNGAL ELEMENTS Normal [facility] Comment on above: Performed By: #### R F #### [facility] [address] [place] [address] Dr. Venkat Sloan GRAM NEG BACILLI RARE Normal [facility] Comment on above: Performed By: #### R F #### [facility] [address] [address] [address] Venkat Sloan GRAM NEG DIPPLOCOCCI Normal [facility] Comment on above: Performed By: #### R F #### [facility] [address] [place] [address] Dr. Venkat Sloan GRAM POS BACILLI Normal [facility] Comment on above: Performed By: #### R F #### [facility] [address] [place] [address] Dr. Venkat Sloan GRAM POSITIVE COCCI RARE Normal [facility] Comment on above: Performed By: #### R F #### [facility] [address] [place] [address] Dr. Venkat Sloan WBC (Bld) [#/Vol] 10*3/uL Normal [facility] Comment on above: Performed By: #### R F #### [facility] [address] [place] [address] Dr. Venkat Sloan Covid-19 PCR (CVDTB)on SARS-CoV-2 (COVID-19) RNA SHIRIN+probe Ql (Unsp spec) Not detected Normal NOT DETECTED [facility] Comment on above: Result Comment: This test is not yet approved or cleared by the [place] FDA. When there are no FDA-approved or cleared tests available, and other criteria are met, FDA can make tests available under an emergency access mechanism called an Emergency Use Authorization (EUA). The EUA for this test is supported by the Veterinary Dentist of Health and Human Service's (HHS's) declaration [...] By: #### P REGQNT #### [facility] [address] [place] [address] Dr. Venkat Sloan INFLUENZA A AND B AGon 04-01 [facility] SEE BELOW Normal [facility] Comment on above: Result Comment: Nega tive for Flu A protein angiten. Infection due to Flu A cannot be ruled out. Flu A angiten in the sample may be below the detection limit of the test. Performed By: #### I NFLUAB #### [facility] [address] [place] [address] Dr. Venkat [facility] SEE BELOW Normal [facility] Comment on above: Result Comment: Nega tive for Flu B protein antigen. Infection due to Flu B cannot be ruled out. Flu B antigen in the sample may be below the detection limit of the test. Performed By: #### I NFLUAB #### [facility] [address] [place] [address] Dr. Venkat Sloan INFLUENZA A AG Negative Normal NEGATIVE SEE COMMENT [facility] Comment on above: Performed By: #### I NFLUAB #### [facility] [address] [place] [address] Dr. Venkat Sloan INFLUENZA B AG Negative Normal NEGATIVE SEE COMMENT [facility] Comment on above: Performed By: #### I NFLUAB #### [facility] [address] [place] [address] Dr. Venkat Sloan XR CHEST 2 Von [...] Date: 2022-03-24 12:33 Normal [facility] SARS-CoV-2 (COVID-19) RNA SHIRIN+probe Ql (Unsp spec) Not detected Normal NOT DETECTED [facility] Comment on above: Result Comment: When diagnostic [...] for this test is supported by the Veterinary Dentist of Health and Human Service's declaration that [...] By: #### R F #### [facility] [address] [place] [address] Dr. Venkat Sloan INFLUENZA A AND B [facility] 03-15 [facility] SEE BELOW Normal [facility] Comment on above: Result Comment: Nega tive for Flu A protein angiten. Infection due to Flu A cannot be ruled out. Flu A angiten in the sample may be below the detection limit of the test. Performed By: #### I NFLUAB #### [facility] [address] [place] [address] Dr. Venkat Sloan INFLUBANNER SEE BELOW Normal [facility] Comment on above: Result Comment: Nega tive for Flu B protein antigen. Infection due to Flu B cannot be ruled out. Flu B antigen in the sample may be below the detection limit of the test. Performed By: #### I NFLUAB #### [facility] [address] [place] [address] Dr. Venkat Sloan INFLUENZA A AG Negative Normal NEGATIVE SEE COMMENT [facility] Comment on above: Performed By: #### I NFLUAB #### [facility] [address] [place] [address] Dr. Venkat Sloan INFLUENZA B AG Negative Normal NEGATIVE SEE COMMENT [facility] Comment on above: Performed By: #### I NFLUAB #### [facility] [address] [place] [address] Dr. Venkat Sloan INTERNAL CONTROLS Within Normal Limits Normal Wi thin Normal Limits [facility] Comment on above: Performed By: #### I NFLUAB #### [facility] [address] [place] [address] Dr. Venkat Sloan Covid-19 PCR ([facility])on 02-25 SARS-CoV-2 (COVID-19) RNA SHIRIN+probe Ql (Unsp spec) Not detected Normal NOT DETECTED [facility] Comment on above: Result Comment: When diagnostic [...] for this test is supported by the [place] of Health and Human Service's declaration that [...] By: #### I NFLUAB #### [facility] [address] [place] [address] Dr. Venkat Sloan INFLUENZA A AND B AGon 03-12 [facility] SEE BELOW Normal [facility] Comment on above: Result Comment: Nega tive for Flu A protein angiten. Infection due to Flu A cannot be ruled out. Flu A angiten in the sample may be below the detection limit of the test. Performed By: #### I NFLUAB #### [facility] [address] [place] [address] Dr. Venkat Sloan INFLUBNEG SEE BELOW Normal [facility] Comment on above: Result Comment: Nega tive for Flu B protein antigen. Infection due to Flu B cannot be ruled out. Flu B antigen in the sample may be below the detection limit of the test. Performed By: #### I NFLUAB #### [facility] [address] [place] [address] Dr. Venkat Sloan INFLUENZA A AG Negative Normal NEGATIVE SEE COMMENT [facility] Comment on above: Performed By: #### I NFLUAB #### [facility] [address] [address] [address] Venkat Sloan INFLUENZA B AG Negative Normal NEGATIVE SEE COMMENT [facility] Comment on above: Performed By: #### I NFLUAB #### [facility] [address] [place] [address] Dr. Venkat Sloan INTERNAL CONTROLS Within Normal Limits Normal Wi thin Normal Limits [facility] Comment on above: Performed By: #### I NFLUAB #### [facility] [address] [place] [address] Dr. Venkat Sloan PROGESTERONEon 02-20-2022 Progesterone 0.3 ng/mL Normal [facility] Comment on above: Result Comment: Foll icular phase 0.1 - 0.9 Luteal phase 1.8 - 23.9 Ovulation phase 0.1 - 12.0 First trimester 11.0 - 44.3 Second trimester 25.4 - 83.3 Third trimester 58.7 - 214.0 Postmenopausal 0.0 - 0.1 Performed By: #### R F #### [facility] [address] [place] [address] Dr. Venkat Sloan ACTH STIMULATIONon 2 Andros Baseline 49 ng/dL Normal 41-[address] [facility] Comment on above: Performed By: #### R F #### [facility] [address] [place] [address] Dr. Venkat Sloan Andros Stimulated 82 ng/dL Normal Not Estab. [facility] Comment on above: Performed By: #### R F #### [facility] [address] [place] [address] Dr. Venkat Sloan [facility]26 SARS-CoV-2 (COVID-19) RNA SHIRIN+probe Ql (Unsp spec) Not detected Normal NOT DETECTED [facility] Comment on above: Result Comment: This test is not yet approved or cleared by the [place] FDA. When there are no FDA-approved or cleared tests available, and other criteria are met, FDA can make tests available under an emergency access mechanism called an Emergency Use Authorization (EUA). The EUA for this test is supported by the [place] of Health and Human Service's (HHS's) declaration [...] By: #### I NFLUAB #### [facility] [address] [place] [address] Dr. Venkat Sloan INFLUENZA A AND B [facility] Normal [facility] Comment on above: Result Comment: Nega tive for Flu A protein angiten. Infection due to Flu A cannot be ruled out. Flu A angiten in the sample may be below the detection limit of the test. Performed By: #### P REGQNT #### [facility] [address] [place] [address] Dr. Venkat Sloan INFLUBNEG SEE BELOW Normal [facility] Comment on above: Result Comment: Nega tive for Flu B protein antigen. Infection due to Flu B cannot be ruled out. Flu B antigen in the sample may be below the detection limit of the test. Performed By: #### P REGQNT #### [facility] [address] [place] [address] Dr. Venkat Sloan INFLUENZA A AG Negative Normal NEGATIVE SEE COMMENT [facility] Comment on above: Performed By: #### P REGQNT #### [facility] [address] [place] [address] Dr. Venkat Sloan INFLUENZA B AG Negative Normal NEGATIVE SEE COMMENT [facility] Comment on above: Performed By: #### P REGQNT #### [facility] [address] [address] [address] Venkat Sloan INTERNAL CONTROLS Within Normal Limits Normal Wi thin Normal Limits [facility] Comment on above: Performed By: #### P REGQNT #### [facility] [address] [address] [address] Venkat Sloan DHEA SERUMon 01-19-2022 Dehydroepiandrosterone (DHEA) 82 ng/dL Normal 31-701 [facility] Comment on above: Result [...] By: #### T SH #### [facility] [address] [address] [address] Venkat Sloan DHEA-SULFATEon 01-14-2022 DHEA-Sulfate 34.0 ug/dL Critically low 84.8-378.0 [facility] Comment on above: Performed By: #### R F #### [facility] [address] [place] [address] Dr. Venkat Sloan FSHon 01-14-2022 FSH 2.2 mIU/mL Normal [facility] Comment on above: Result Comment: Adul t Female: Follicular phase 3.5 - 12.5 Ovulation phase 4.7 - 21.5 Luteal phase 1.7 - 7.7 Postmenopausal 25.8 - 134.8 Performed By: #### L BCFSH #### [facility] [address] [place] [address] Dr. Venkat Sloan LUTEINIZING HORMONE (LH)on LH 5.1 mIU/mL Normal [facility] Comment on above: Result Comment: Adul t Female: Follicular phase 2.4 - 12.6 Ovulation phase 14.0 - 95.6 Luteal phase 1.0 - 11.4 Postmenopausal 7.7 - 58.5 Performed By: #### I NFLUAB #### [facility] [address] [place] [address] Dr. Venkat Sloan PROLACTINon 01-14-2022 Prolactin 8.0 ng/mL Normal 4.8-23.3 [facility] Comment on above: Performed By: #### P ROLAC #### [facility] [address] [place] [address] Dr. Venkat Sloan CBC AUTO DIFFon 01-13-2022 BASO # 0.0 103/ul Normal 0.0-0.1 [facility] Comment on above: Performed By: #### T SH #### [facility] [address] [place] [address] Dr. Venkat Sloan Basophils/100 WBC (Bld) 0.4 % Normal 0.2-2.0 [facility] Comment on above: Performed By: #### T SH #### [facility] [address] [place] [address] Dr. Venkat Sloan EO # 0.1 103/ul Normal 0.0-0.7 [facility] Comment on above: Performed By: #### T SH #### [facility] [address] [place] [address] Dr. Venkat Sloan Eosinophils/100 WBC (Bld) 1.2 % Normal 0.9-7.0 [facility] Comment on above: Performed By: #### T SH #### [facility] [address] [place] [address] Dr. Venkat Sloan Erythrocyte distribution width (RBC) [Ratio] 12.7 % Normal 11.0-15.0 [facility] Comment on above: Performed By: #### T SH #### [facility] [address] [place] [address] Dr. Venkat Sloan Hematocrit (Bld) [Volume fraction] 41.1 % Normal 36.0-48.0 [facility] Comment on above: Performed By: #### T SH #### [facility] [address] [place] [address] Dr. Venkat Sloan Hemoglobin (Bld) [Mass/Vol] 13.1 g/dL Normal 12.0-16.0 [facility] Comment on above: Performed By: #### T SH #### [facility] [address] [place] [address] Dr. Venkat Sloan IG # 0.03 10e3/ul Normal 0.00-0.03 [facility] Comment on above: Performed By: #### T SH #### [facility] [address] [place] [address] Dr. Venkat Sloan IG % 0.3 % Normal 0.0-0.5 [facility] Comment on above: Performed By: #### T SH #### [facility] [address] [place] [address] Dr. Venkat Sloan LYMPH # 1.6 103/ul Normal 1.2-3.8 [facility] Comment on above: Performed By: #### T SH #### [facility] [address] [place] [address] Dr. Venkat Sloan Lymphocytes/100 WBC (Bld) 15.0 % Critically low 20.5-60.0 [facility] Comment on above: Performed By: #### T SH #### [facility] [address] [place] [address] Dr. Venkat Sloan MANUAL DIFF REQ NO Normal [facility] Comment on above: Performed By: #### T SH #### [facility] [address] [place] [address] Dr. Venkat Sloan MCH (RBC) [Entitic mass] 28.5 pg Normal 26.7-34.0 [facility] Comment on above: Performed By: #### T SH #### [facility] [address] [place] [address] Dr. Venkat Sloan MCHC (RBC) [Mass/Vol] 31.9 g/dL Normal 29.9-35.2 [facility] Comment on above: Performed By: #### T SH #### [facility] [address] [place] [address] Dr. Venkat Sloan MCV (RBC) [Entitic vol] 89.3 fL Normal 81.0-99.0 [facility] Comment on above: Performed By: #### T SH #### [facility] [address] [address] [address] Venkat Sloan MONO # 0.9 103/ul Critically high 0.3-0.8 [facility] Comment on above: Performed By: #### T SH #### [facility] [address] [address] [address] Venkat Sloan Monocytes/100 WBC (Bld) 8.8 % Normal 1.7-12.0 [facility] Comment on above: Performed By: #### T SH #### [facility] [address] [place] [address] Dr. Venkat Sloan NEUT # 7.9 103/ul Critically high 1.4-6.5 [facility] Comment on above: Performed By: #### T SH #### [facility] [address] [place] [address] Dr. Venkat Sloan Neutrophils/100 WBC (Bld) 74.3 % Normal 43.0-75.0 [facility] Comment on above: Performed By: #### T SH #### [facility] [address] [place] [address] Dr. Venkat Sloan Platelet mean volume (Bld) [Entitic vol] 9.2 fL Critically low 9.5-13.5 [facility] Comment on above: Performed By: #### T SH #### [facility] [address] [place] [address] Dr. Venkat Sloan PLT 300 103/ul Normal 150-450 [facility] Comment on above: Performed By: #### T SH #### [facility] [address] [place] [address] Dr. Venkat Sloan RBC 4.60 106/ul Normal 4.20-5.40 [facility] Comment on above: Performed By: #### T SH #### [facility] [address] [place] [address] Dr. Venkat Sloan WBC 10.7 103/ul Normal 4.0-11.0 [facility] Comment on above: Performed By: #### T SH #### [facility] [address] [place], [place] [id number] Dr. Venkat Sloan GLYCOHEMOGLOBIN A1Con 2021 ADA RECOMMENDATION SEE BELOW Normal [facility] Comment on above: Result Comment: ADA RECOMMENDED LIMIT 4.0 - 6.0 ADA THERAPEUTIC TARGET < 7.0 ACTION SUGGESTED > 7.0 Performed By: #### P REGQNT #### [facility] [address] [place] [address] Dr. Venkat Sloan Glucose [Mass/Vol] 100 mg/dL Normal [facility] Comment on above: Performed By: #### P REGQNT #### [facility] [address] [place] [address] Dr. Venkat Sloan HbA1c (Bld) [Mass fraction] 5.1 % Normal 4.5-6.2 [facility] Comment on above: Performed By: #### P REGQNT #### [facility] [address] [place] [address] Dr. Venkat Sloan TSHon 01-13-2022 TSH 1.098 uIU/mL Normal 0.358-3.740 [facility] Comment on above: Performed By: #### T SH #### [facility] [address] [place] [address] Dr. Venkat Sloan [facility] SARS-CoV-2 (COVID-19) RNA SHIRIN+probe Ql (Unsp spec) Not detected Normal NOT DETECTED [facility] Comment on above: Result Comment: This test is not yet approved or cleared by the [place] FDA. When there are no FDA-approved or cleared tests available, and other criteria are met, FDA can make tests available under an emergency access mechanism called an Emergency Use Authorization (EUA). The EUA for this test is supported by the [place] of Health and Human Service's (HHS's) declaration [...] By: #### I NFLUAB #### [facility] [address] [place] [address] Dr. Venkat Sloan PREG QUANT HCGon 12-24-2021 HCG QUANT <1 Normal [facility] Comment on above: Performed By: #### P REGQNT #### [facility] [address] [place] [address] Dr. Venkat Sloan HCG RANGE SEE BELOW Normal [facility] Comment on above: Result Comment: 5-50 0.2-1 WEEK 50-500 1-2 WEEKS 100-5,000 2-3 WEEKS 500-10,000 3-4 WEEKS 1,000-50,000 4-5 WEEKS 10,000-100,000 5-6 WEEKS 15,000-200,000 6-8 WEEKS 10,000-100,000 2-3 MONTHS Performed By: #### P REGQNT #### [facility] [address] [place] [address] Dr. Venkat Sloan HCG-BETA SUBUNIT QUANTon hCG,Beta Subunit,Qnt,Serum <1 Normal [facility] Comment on above: Result Comment: Fema le (Non-) 0 - 5 (Postmenopausal) 0 - 8 . Female () Weeks of Gestation 3 6 - 71 4 10 - 750 5 217 - 7138 6 158 - 64374 7 [phone] 8 [phone] 9 [phone] 10 86515 -[phone] 12 28576 -[phone] 14 74193 - 54915 15 93222 - 72263 16 7983 - 91546 17 [phone] - [phone] 18 [phone] - [phone] Aj ECLIA methodology Performed By: #### T SH #### [facility] [address] [place] [address] Dr. Venkat Sloan BRETT by IFAon 09-29-2021 Antinuclear Antibodies, IFA Negative Normal [facility] Comment on above: Result Comment: Nega tive <1:80 Borderline 1:80 Positive >1:80 ICAP nomenclature: AC-0 For more information about Hep-2 cell patterns use ANApatterns.org, the official website for the International Consensus on Antinuclear Antibody (BRETT) Patterns (ICAP). Performed By: #### A NAIFA #### [facility] [address] [place] [address] Dr. Venkat Sloan INSULINon 09-29-2021 Insulin 11.1 uIU/mL Normal 2.6-24.9 [facility] Comment on above: Performed By: #### T SH #### [facility] [address] [place] [address] Dr. Venkat Sloan ANTISTREPTOLYSIN O AB (ASO)o n 09-27-2021 Antistreptolysin O Ab <20.0 Normal 0.0-200.0 [facility] Comment on above: Performed By: #### P REGQNT #### [facility] [address] [place] [address] Dr. Venkat Sloan RHEUMATOID FACTORon 09-28-19 RA Latex Turbid. <10.0 Normal <14.0 [facility] Comment on above: Performed By: #### R F #### [facility] [address] [place] [address] Dr. Venkat Sloan CBC AUTO DIFFon 09-26-2021 BASO # 0.0 103/ul Normal 0.0-0.1 [facility] Comment on above: Performed By: #### T SH #### [facility] [address] [place] [address] Dr. Venkat Sloan Basophils/100 WBC (Bld) 0.3 % Normal 0.2-2.0 [facility] Comment on above: Performed By: #### T SH #### [facility] [address] [place] [address] Dr. Venkat Sloan EO # 0.1 103/ul Normal 0.0-0.7 [facility] Comment on above: Performed By: #### T SH #### [facility] [address] [place] [address] Dr. Venkat Sloan Eosinophils/100 WBC (Bld) 1.8 % Normal 0.9-7.0 [facility] Comment on above: Performed By: #### T SH #### [facility] [address] [place] [address] Dr. Venkat Sloan Erythrocyte distribution width (RBC) [Ratio] 12.9 % Normal 11.0-15.0 [facility] Comment on above: Performed By: #### T SH #### [facility] [address] [place] [address] Dr. Venkat Sloan Hematocrit (Bld) [Volume fraction] 39.8 % Normal 36.0-48.0 [facility] Comment on above: Performed By: #### T SH #### [facility] [address] [place] [address] Dr. Venkat Sloan Hemoglobin (Bld) [Mass/Vol] 12.7 g/dL Normal 12.0-16.0 [facility] Comment on above: Performed By: #### T SH #### [facility] [address] [place] [address] Dr. Venkat Sloan IG # 0.02 10e3/ul Normal 0.00-0.03 [facility] Comment on above: Performed By: #### T SH #### [facility] [address] [place] [address] Dr. Venkat Sloan IG % 0.3 % Normal 0.0-0.5 [facility] Comment on above: Performed By: #### T SH #### [facility] [address] [place] [address] Dr. Venkat Solan LYMPH # 1.5 103/ul Normal 1.2-3.8 [facility] Comment on above: Performed By: #### T SH #### [facility] [address] [place] [address] Dr. Venkat Sloan Lymphocytes/100 WBC (Bld) 21.5 % Normal 20.5-60.0 [facility] Comment on above: Performed By: #### T SH #### [facility] [address] [place] [address] Dr. Venkat Sloan MANUAL DIFF REQ NO Normal [facility] Comment on above: Performed By: #### T SH #### [facility] [address] [place] [address] Dr. Venkat Sloan MCH (RBC) [Entitic mass] 28.5 pg Normal 26.7-34.0 [facility] Comment on above: Performed By: #### T SH #### [facility] [address] [place] [address] Dr. Venkat Sloan MCHC (RBC) [Mass/Vol] 31.9 g/dL Normal 29.9-35.2 [facility] Comment on above: Performed By: #### T SH #### [facility] [address] [place] [address] Dr. Venkat Sloan MCV (RBC) [Entitic vol] 89.2 fL Normal 81.0-99.0 [facility] Comment on above: Performed By: #### T SH #### [facility] [address] [place] [address] Dr. Venkat Sloan MONO # 0.5 103/ul Normal 0.3-0.8 [facility] Comment on above: Performed By: #### T SH #### [facility] [address] [place] [address] Dr. Venkat Sloan Monocytes/100 WBC (Bld) 7.6 % Normal 1.7-12.0 [facility] Comment on above: Performed By: #### T SH #### [facility] [address] [place] [address] Dr. Venkat Sloan NEUT # 4.9 103/ul Normal 1.4-6.5 [facility] Comment on above: Performed By: #### T SH #### [facility] [address] [place] [address] Dr. Venkat Sloan Neutrophils/100 WBC (Bld) 68.5 % Normal 43.0-75.0 [facility] Comment on above: Performed By: #### T SH #### [facility] [address] [place] [address] Dr. Venkat Sloan Platelet mean volume (Bld) [Entitic vol] 8.8 fL Critically low 9.5-13.5 [facility] Comment on above: Performed By: #### T SH #### [facility] [address] [address] [address] Venkat Sloan PLT 297 103/ul Normal 150-450 [facility] Comment on above: Performed By: #### T SH #### [facility] [address] [address] [address] Venkat Sloan RBC 4.46 106/ul Normal 4.20-5.40 [facility] Comment on above: Performed By: #### T SH #### [facility] [address] [address] [address] Venkat Sloan WBC 7.1 103/ul Normal 4.0-11.0 [facility] Comment on above: Performed By: #### T SH #### [facility] [address] [place] [address] Dr. Venkat Sloan CRPon 09-26-2021 CRP [Mass/Vol] mg/L Normal <=1.0 [facility] Comment on above: Performed By: #### P REGQNT #### [facility] [address] [address] [address] Venkat Sloan FREE THYROXINE INDEX T7on FTI 2.71 Normal 1.30-4.50 [facility] Comment on above: Performed By: #### P REGQNT #### [facility] [address] [place] [address] Dr. Venkat Sloan T3U 33.0 % Normal 30.0-39.0 [facility] Comment on above: Performed By: #### P REGQNT #### [facility] [address] [address] [address] Venkat Sloan T4 [Mass/Vol] 8.20 ug/dL Normal 4.80-13.90 [facility] Comment on above: Performed By: #### P REGQNT #### [facility] [address] [place] [address] Dr. Venkat Sloan GLYCOHEMOGLOBIN A1Con 2021 ADA RECOMMENDATION SEE BELOW Normal [facility] Comment on above: Result Comment: ADA RECOMMENDED LIMIT 4.0 - 6.0 ADA THERAPEUTIC TARGET < 7.0 ACTION SUGGESTED > 7.0 Performed By: #### I NFLUAB #### [facility] [address] [place] [address] Dr. Venkat Sloan Glucose [Mass/Vol] 105 mg/dL Normal [facility] Comment on above: Performed By: #### I NFLUAB #### [facility] [address] [address] [address] Venkat Sloan HbA1c (Bld) [Mass fraction] 5.3 % Normal 4.5-6.2 [facility] Comment on above: Performed By: #### I NFLUAB #### [facility] [address] [place] [address] Dr. Venkat Sloan IRONon 09-26-2021 Iron [Mass/Vol] 49.0 ug/dL Critically low 50.0-170.0 [facility] Comment on above: Performed By: #### P REGQNT #### [facility] [address] [place] [address] Dr. Venkat Sloan LIPID PROFILEon 09-26-2021 CHOL-HDL RATIO NORM SEE BELOW Normal [facility] Comment on above: Result Comment: 3.3 - 4.4 LOW RISK 4.4 - 7.1 AVERAGE RISK 7.1 - 11.0 MODERATE RISK >11.0 HIGH RISK Performed By: #### P REGQNT #### [facility] [address] [place] [address] Dr. Venkat Sloan Cholesterol [Mass/Vol] 197 mg/dL Normal <=200 [facility] Comment on above: Performed By: #### P REGQNT #### [facility] [address] [place] [address] Dr. Venkat Sloan Cholesterol in HDL [Mass/Vol] 64 mg/dL Critically high 40-60 [facility] Comment on above: Performed By: #### P REGQNT #### [facility] [address] [place] [address] Dr. Venkat Sloan Cholesterol in LDL [Mass/Vol] 123.4 mg/dL Normal [facility] Comment on above: Performed By: #### P REGQNT #### [facility] [address] [address] [address] Venkat Sloan Cholesterol.total/Choles terol in HDL [Mass ratio] 3.1 {ratio} Normal [facility] Comment on above: Performed By: #### P REGQNT #### [facility] [address] [address] [address] Venkat Sloan HDL NORMAL > or = 60 mg/dl - LO W CARDIOVASCULAR RISK <40 mg/dl - HIGH CARDIOVASCULAR RISK Normal [facility] Comment on above: Performed By: #### P REGQNT #### [facility] [address] [place] [address] Dr. Venkat Sloan LDL CALC NORMAL SEE BELOW Normal [facility] Comment on above: Result Comment: <100 mg/dl OPTIMAL 100 - 129 mg/dl NEAR OR ABOVE OPTIMAL 130 - 159 mg/dl BORDERLINE HIGH 160 - 189 mg/dl HIGH >190 mg/dl VERY HIGH Performed By: #### P REGQNT #### [facility] [address] [place] [address] Dr. Venkat Sloan Triglyceride [Mass/Vol] 48 mg/dL Normal <=150 T [facility] Comment on above: Performed By: #### P REGQNT #### [facility] [address] [place] [address] Dr. Venkat Sloan VLDL CALC 9.6 mg/dL Normal [facility] Comment on above: Performed By: #### P REGQNT #### [facility] [address] [place] [address] Dr. Venkat Sloan PROF 14(COMP METB)on 022 Albumin [Mass/Vol] 4.0 g/dL Normal 3.4-5.0 [facility] Comment on above: Performed By: #### I NFLUAB #### [facility] [address] [place] [address] Dr. Venkat Sloan Albumin/Globulin [Mass ratio] 1.3 {ratio} Normal [facility] Comment on above: Performed By: #### I NFLUAB #### [facility] [address] [address] [address] Venkat Sloan ALP [Catalytic activity/Vol] 58 U/L Normal 46-116 [facility] Comment on above: Performed By: #### I NFLUAB #### [facility] [address] [address] [address] Venkat Sloan ALT [Catalytic activity/Vol] 20 U/L Normal 14-59 [facility] Comment on above: Performed By: #### I NFLUAB #### [facility] [address] [address] [address] Venkat Sloan Anion gap [Moles/Vol] 10.4 mmol/L Normal [facility] Comment on above: Performed By: #### I NFLUAB #### [facility] [address] [address] [address] Venkat Sloan AST [Catalytic activity/Vol] 11 U/L Critically low 15-37 [facility] Comment on above: Performed By: #### I NFLUAB #### [facility] [address] [address] [address] Venkat Sloan Bilirubin [Mass/Vol] 0.8 mg/dL Normal 0.2-1.0 [facility] Comment on above: Performed By: #### I NFLUAB #### [facility] [address] [address] [address] Venkat Sloan Calcium [Mass/Vol] 9.0 mg/dL Normal 8.5-10.1 [facility] Comment on above: Performed By: #### I NFLUAB #### [facility] [address] [address] [address] Venkat Sloan Chloride [Moles/Vol] 106 mmol/L Normal 98-107 [facility] Comment on above: Performed By: #### I NFLUAB #### [facility] [address] [address] [address] Venkat Sloan CO2 [Moles/Vol] 27.0 mmol/L Normal 21.0-32.0 [facility] Comment on above: Performed By: #### I NFLUAB #### [facility] [address] [address] [address] Venkat Sloan Creatinine [Mass/Vol] 0.70 mg/dL Normal 0.55-1.02 [facility] Comment on above: Performed By: #### I NFLUAB #### [facility] [address] [address] [address] Venkat Sloan EGFR-AF YEMENI >60 Normal >=60 [facility] Comment on above: Performed By: #### I NFLUAB #### [facility] [address] [address] [address] Venkat Sloan EGFR-NON AF YEMENI >60 Normal >=60 [facility] Comment on above: Performed By: #### I NFLUAB #### [facility] [address] [address] [address] Venkat Sloan Globulin (S) [Mass/Vol] 3.2 g/dL Normal [facility] Comment on above: Performed By: #### I NFLUAB #### [facility] [address] [place] [address] Dr. Venkat Sloan Glucose [Mass/Vol] 92 mg/dL Normal 74-106 [facility] Comment on above: Performed By: #### I NFLUAB #### [facility] [address] [place] [address] Dr. Venkat Sloan Potassium [Moles/Vol] 4.4 mmol/L Normal 3.5-5.1 [facility] Comment on above: Performed By: #### I NFLUAB #### [facility] [address] [address] [address] Venkat Sloan Protein [Mass/Vol] 7.2 g/dL Normal 6.4-8.2 [facility] Comment on above: Performed By: #### I NFLUAB #### [facility] [address] [address] [address] Venkat Sloan Sodium [Moles/Vol] 139 mmol/L Normal 136-145 [facility] Comment on above: Performed By: #### I NFLUAB #### [facility] [address] [address] [address] Venkat Sloan Urea nitrogen [Mass/Vol] 13.0 mg/dL Normal 7.0-18.0 [facility] Comment on above: Performed By: #### I NFLUAB #### [facility] [address] [address] [address] Venkat Sloan Urea nitrogen/Creatinine [Mass ratio] 18.6 mg/mg Normal [facility] Comment on above: Performed By: #### I NFLUAB #### [facility] [address] [address] [address] Venkat Sloan TSHon 09-26-2021 TSH 1.318 uIU/mL Normal 0.358-3.740 [facility] Comment on above: Performed By: #### P REGQNT #### [facility] [address] [place] [address] Dr. Venkat Sloan URIC ACID SERUMon 09-26-2021 Urate [Mass/Vol] 3.9 mg/dL Normal 2.6-6.0 [facility] Comment on above: Performed By: #### P REGQNT #### [facility] [address] [place] [address] Dr. Venkat Sloan XR CSPINE MIN 4 [...] Date: 2021-09-24 21:16 Normal [facility] PREG QUANT HCGon 08-17-2021 HCG QUANT <1 Normal [facility] Comment on above: Performed By: #### I NFLUAB #### [facility] [address] [place] [address] Dr. Venkat Sloan HCG RANGE SEE BELOW Normal [facility] Comment on above: Result Comment: 5-50 0-1 WEEK 40-300 1-2 WEEKS 100-1,000 2-3 WEEKS 500-6,000 3-4 WEEKS 5,000-200,000 1-2 MONTHS 10,000-100,000 2-3 MONTHS 3,000-50,000 2ND TRIMESTER 1,000-50,000 3RD TRIMESTER Performed By: #### I NFLUAB #### [facility] [address] [place] [address] Dr. Venkat Sloan US PELVIS AND TRANSVAGon [...] by: DUDLEY HERNÁNDEZ Date: 2021-08-17 07:01 Normal [facility] COVID Quick Testingon 2020 Result Negative [facility] Other Vital Signs Date Time Vital Sign Value Performing Clinician Facility 05-22-2023 09:27-0500 Body height 154.94 cm [facility] 05-22-2023 09:0500 Body mass index (BMI) [Ratio] 30.8 kg/m2 [facility] 05-22-2023 09:27-0500 Body temperature 98.1 [degF] [facility] 05-22-2023 09:050 Body weight 74.04 kg [facility] 05-22-2023 09:27-0500 Heart rate 78 /min [facility] 05-22-2023 09:27-0500 Respiratory rate 16 /min [facility] 05-22-2023 09:27-0500 SaO2% (BldA) [Mass fraction] 98 % [facility] 05-10-2023 15:14-0500 Body mass index (BMI) [Ratio] 30.04 kg/m2 Ricardo Jennifer DO Work Phone: [facility] 05-10-2023 15:14-0500 Body weight 72.12 kg Ricardo Jennifer DO Work Phone: [facility] 05-10-2023 15:14-0500 Diastolic blood pressure 70 mm[Hg] Ricardo Jennifer DO Work Phone: [facility] 05-10-2023 15:14-0500 Systolic blood pressure 110 mm[Hg] Ricardo Jennifer [facility] Work Phone: [facility] 01-27-2021 18:45-0400 Body height 154.94 cm Mohini Buttault Other [facility] Other 01-27-2021 18:45-0400 Body mass index (BMI) [Ratio] 28.34 kg/m2 Mohini Juan Other [facility] Other 01-27-2021 18:45-0400 Body temperature 96.4 [degF] Mohini Juan Other [facility] Other 01-27-2021 18:45-0400 Body weight 68.04 kg Mohini Buttault Other [facility] Other 01-27-2021 18:45-0400 Respiratory rate 18 /min Mohini Juan Other [facility] Other 01-27-2021 18:45-0400 SaO2% (BldA) [Mass fraction] 99 % Mohini Juan Other [facility] Other 12-22-2020 11:45-0400 Body height 154.94 cm Dudley Freeman Other [facility] Other 12-22-2020 11:45-0400 Body mass index (BMI) [Ratio] 28.34 kg/m2 Dudley Freeman Other [facility] Other 12-22-2020 11:45-0400 Body weight 68.04 kg Dudley Freeman Other [facility] Other Encounters Encounter Date Encounter Type Care Provider Facility Start: 08-11-2023 End: 08-11-2023 ambulatory RICARDO JENNIFER Not Available Start: 08-04-2023 End: 08-04-2023 ambulatory RICARDO JENNIFER Not Available Start: 07-28-2023 End: 07-28-2023 ambulatory RICARDO JENNIFER Not Available Start: 07-21-2023 End: 07-21-2023 ambulatory RICARDO JENNIFER Not Available Start: 07-14-2023 End: 07-14-2023 ambulatory RICARDO JENNIFER Not Available Start: 06-30-2023 End: 06-30-2023 ambulatory RICARDO JENNIFER Not Available Start: 06-13-2023 End: 06-13-2023 ambulatory RICARDO JENNIFER Not Available Start: 05-26-2023 End: 05-26-2023 ambulatory RIACRDO JENNIFER Not Available Start: 05-22-2023 End: 05-22-2023 ambulatory [facility] Work Phone: Start: 05-22-2023 End: 05-22-2023 Patient encounter procedure [facility] Work Phone: Start: 05-10-2023 [...] other preprocedural examination DR RICARDO RODRIGUEZ . [facility] Start: 07-08-2022 End: 07-08-2022 ambulatory [...] DR IRON GARCIA . [facility] Start: 09-26-2021 End: 09-27-[address] IRON [...] 01-27-2021 End: 01-27-2021 ambulatory Mohini Martinez Other [facility] Other Start: 01-27-2021 Office outpatient vi sit [...] encounter procedure 05/26/2023 9:[address] [facility] [address] [place] [id number] Ricardo Rodriguez, DO [address] [place] [address] [facility] Start: 05-10-2023 End: 05-10-2024 CBC panel - Blood by Automated count CBC Lab Routine Diabetes mellitus screening Expected: 05/10/2023 (Approximate), Expires: 05/10/2024 [facility] Work Phone: Comment on above: Expected: 05/10/2023 (Approximate), Expires: 05/10/2024 Start: 05-10-2023 End: 05-10-2024 Measurement of glucose 1 hour after glucose challenge for glucose tolerance test Glucose tolerance, 1 hour Lab Routine Diabetes mellitus screening Expected: 05/10/2023 (Approximate), Expires: 05/10/2024 [facility] Comment on above: Expected: 05/10/2023 (Approximate), Expires: 05/10/2024 Start: 11-26-2022 Influenza vaccination Influenz a Vaccine (#1) [facility] Immunizations Immunization Date Immunization Notes Care Provider Fa cility 01-25-2022 influenza virus vacc ine, unspecified formulation Ricardo Rodriguez DO Work Phone: [facility] Payers Date Payer Category Payer Unknown BCBS BCBS xxxxxx [id number] 2022-Present [phone] [address] [place] [address] [id number] 1993 Unknown [id number] 2.16.840.1.217649.3.579.2.593 1993 Unknown [id number] 2.16.840.1.840169.3.579.2.593 1993 Unknown [id number] 2.16.840.1.056396.3.579.2.593 1993 Unknown [id number] 2.16.840.1.002629.3.579.2.593 1993 Unknown [id number] 2.16.840.1.389221.3.579.2.593 1993 Unknown [id number] 2.16.840.1.203657.3.579.2.593 1993 Unknown [id number] 2.16.840.1.426799.3.579.2.59 1993 Unknown [id number] 2.16.840.1.938572.3.579.2.593 1993 Unknown [id number] 2.16.840.1.354550.3.579.2.59 1993 Unknown [id number] 2.16.840.1.900019.3.579.2.593 1993 Unknown [id number] 2.16.840.1.584623.3.579.2.59 1993 Unknown [id number] 2.16.840.1.656136.3.579.2.593 1993 Unknown [id number] 2.16.840.1.476418.3.579.2.593 1993 Unknown [id number] 2.16.840.1.416663.3.579.2.59 1993 Unknown [id number] 2.16.840.1.492022.3.579.2.593 1993 Unknown [id number] 2.16.840.1.495456.3.579.2.593 1993 Unknown [id number] 2.16.840.1.882370.3.579.2.593 1993 Unknown [id number] 2.16.840.1.186196.3.579.2.593 1993 Unknown [id number] 2.16.840.1.090605.3.579.2.59 1993 Unknown [id number] 2.16.840.1.563129.3.579.2.593 1993 Unknown [id number] 2.16.840.1.864157.3.579.2.59 1993 Unknown [id number] 2.16.840.1.938753.3.579.2.593 1993 Unknown [id number] 2.16.840.1.456193.3.579.2.59 1993 Unknown [id number] 2.16.840.1.952697.3.579.2.593 1993 Unknown [id number] 2.16.840.1.202392.3.579.2.59 1993 Unknown [id number] 2.16.840.1.569193.3.579.2.125 1993 Unknown [id number] 2.16.840.1.171609.3.579.2.1258 1993 Unknown [id number] 2.16.840.1.986669.3.579.2.125 1993 Unknown [id number] 2.16.840.1.705034.3.579.2.1258 1993 Unknown [id number] 2.16.840.1.191111.3.579.2.1258 1993 Unknown [id number] 2.16.840.1.076534.3.579.2.125 1993 Unknown [id number] 2.16.840.1.009766.3.579.2.1259 1993 Unknown [id number] 2.16.840.1.895760.3.579.2.9 1993 Unknown [id number] 2.16.840.1.023590.3.579.2.9 1993 Unknown [id number] 2.16.840.1.037160.3.579.2.1258 1993 Unknown [id number] 2.16.840.1.795239.3.579.2.9 1993 Unknown [id number] 2.16.840.1.554264.3.579.2.9 1959 Unknown [id number] 1959 Unknown [id number] Self-pay Self Pay [id number] Unknown [id number] 2.16. 840.1.594829.19 Unknown [facility] [id number] Unknown Osiel BC/BS [id number] Social History Date Type Detail Facility Unknown if ever smoked [facility] Other Start: 01-28-2023 Sex Assigned At [facility] Other Start: 01-28-2023 End: 05-22-2023 Tobacco smoking status NMIS Never smoked tobacco [facility] Start: 05-10-2023 [...] Comment caffeine: occasional [facility] Start: 11-26-2022 [facility] Start: 1995 Sex Assigned At Female [facility] Start: 11-22-2022 Gender identity Identifies as female gender (finding) [facility] Start: 11-22-2022 Sexual orientation Heterosexual (finding) [facility] History of Present illness Narrative 05-10-2023 Melissa Thornton, SERVICE CENTER SPECIALIST - 05/10/2023 2:50 PM EST Note Date [...] nursing note reviewed. Exam conducted with a rn lvn present. Vitals: Estimated body mass index is [...] Rodriguez DO documented in this encounter [facility] Clinical Note 07-08-2022 Note Date & Type Note Facility 07-08-2022 Note OPERATIVE NOTE OPERATION DATE: 07/08/2022 PROCEDURE: Diagnostic laparoscopy with fulguration of ovarian endometrial implant. PREOPERATIVE DIAGNOSIS: Pelvic pain. POSTOPERATIVE DIAGNOSIS: Pelvic pain. ANESTHESIA: General. SURGEON: Ricardo Rodriguez D.O. JD EDWARDS DEVELOPER: DEVIN Miles URINE OUTPUT: Yellow and clear. [...] Room in stable condition. [facility] Evaluation note 12-22-2020 Note Date & Type Note Facility 12-22-2020 Evaluation note Encounter Date Diagnosis Assessment Notes Nov, Irritable bowel syndrome with both constipation and diarrhea (ICD-10 - K58.2) LABS INDICATED ABOVE START TRIAL OF DICYCLOMINE 20 BID RTO 4 WEEKS [facility] Other Evaluation note Note Date & Type Note Facility Evaluation note [facility] Other Evaluation note Note Date & Type Note Facility Evaluation note Diagnosis Second trimester state, incidental Diabetes mellitus screening Screening for diabetes mellitus documented in this encounter [facility] Evaluation note Note Date & Type Note Facility Evaluation note No assessment information availa [facility] Work Phone: History general Narrative - Reported Note Date & Type Note Facility History general Narrative - Reported Type Medical History anxiety/depression Medical History IBS Surgical History TONSILLECTOMY [facility] Other History general Narrative - Reported Note Date & Type Note Facility History general Narrative - Reported [facility] Other Summary Purpose Family History No Family [...] pital DATE CREATED AUTHOR AUTHOR'S ORGANIZ ATION 08/13/[address] [facility] [employer] Care Teams (unrecognized sec tion and content) Geometry Professor Relationship Specialty Start Date End Date Iron Garcia MD [address] [place] [id number] PCP - General Family Medicine 11/23/22 Team [...] ON THE PRIMARY CLINICAL RECORDS. [facility] [employer] provides no warranty or guarantee of the accuracy or completeness of information in this document.
[2023-08-15 15:56] VITALS: BP 133/88; PULSE 64; TEMP 36.7; O2SAT 98
== END 2023-08-15 16:05 | disposition home or self-care (01) ==
LOC: FBCO 10:07
PROVIDERS: PCP Family Medicine; Visit Provider Obstetrics & Gynecology
DX: Z39.2 Encounter for routine postpartum follow-up (principal)

== ENCOUNTER 2023-08-17 11:26 | Outpatient (OUT) | payer BC, SELFPAY ==
--- NOTE | 2023-08-17 11:30 | US_ITS ---
[address] [address] Patient Name: ESTER BRADFORD MRN: [facility]:[id number] date: 1995 Sex: F Assigned Patient Location: US Current Patient Location: US Accession/Order Number: [id number] Exam Date: 08/17/2023 11:31 Report Date: 08/17/2023 11:57 At the request of: IRON AVILA Procedure: US venous doppler LE LT EXAM: US venous doppler LE LT HISTORY: Pain in left leg M79.605 COMPARISON: None. TECHNIQUE: Grayscale, color and Doppler FINDINGS: Region: Left leg Thrombus: None Flow: Normal Augmentation: Normal Compressibility: Normal US/US venous doppler LE LT IMPRESSION: No deep or superficial vein thrombus identified in the left leg Electronically authenticated by: DUDLEY HERNÁNDEZ Date: 08/17/2023 11:57
--- OUTSIDE RECORDS SUMMARY | 2023-08-17 11:50 | XMS_ITS | CCD ---
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 Name Role Phone LydiaDudley Unavailable Mohini Martinez Unavailable JENNIFER ., DR [...] Unavailable HOY ., DR PERDUE Consulting Unavailable ROGERS, DR DUDLEY Emanuel Consulting Unavailable JENNIFER ., [...] Unavailable Iron Garcia MD Primary Care Provider [phone] JENNIFERCOLTENY Attending Unavailable JENNIFER, RICARDO Attending Unavailable JENNIFER, RICARDO Attending Unavailable JENNIFER, RICARDO Attending Unavailable JENNIFER, RICARDO Attending Unavailable JENNIFER, RICARDO Attending Unavailable JENNIFER, RICARDO Attending Unavailable JENNIFER, RICARDO Attending Unavailable JENNIFER, RICARDO Attending Unavailable JENNIFER, RICARDO Attending Unavailable JENNIFER, RICARDO Attending Unavailable JENNIFER, RICARDO Attending Unavailable Medications Current Medications Medication Drug Class(es) Dates Sig (Normalized) Sig (Original) [id number] 200 actuat albuterol 0.09 mg/actuat metered dose [...] DAILY NEEDED FOR NAUSEA 0 02/19/2023 Active Curjtd91-Euam Fum-Folic Ac-Om3 (One A Day Women's Dha) 28 mg iron- 800 mcg combo pack (1 source) Start: 05-22-2023 Djoewy95-Mgoq Fum-Folic Ac-Om3 (One A Day Women's Dha) [...] SARS-CoV-2 (COVID-19) RNA SHIRIN+probe Ql (Unsp spec) [facility] Urinalysis macro (dipstick) panel [...] 0.2 0.2 - 12 mg/dL [facility] CBC AUTO DIFFon 07-08-2022 BASO # 0.0 103/ul Normal 0.0-0.1 [facility] Comment on above: Performed By: #### R F #### [facility] [address] [address] [address] Venkat Sloan Basophils/100 WBC (Bld) 0.5 % Normal 0.2-2.0 [facility] Comment on above: Performed By: #### R F #### [facility] [address] [address] [address] Venkat Sloan EO # 0.1 103/ul Normal 0.0-0.7 [facility] Comment on above: Performed By: #### R F #### [facility] [address] [place] [address] Dr. Venkat Sloan Eosinophils/100 WBC (Bld) 1.7 % Normal 0.9-7.0 [facility] Comment on above: Performed By: #### R F #### [facility] [address] [place] [address] Dr. Venkat Sloan Erythrocyte distribution width (RBC) [Ratio] 12.7 % Normal 11.0-15.0 [facility] Comment on above: Performed By: #### R F #### [facility] [address] [place] [address] Dr. Venkat Sloan Hematocrit (Bld) [Volume fraction] 40.4 % Normal 36.0-48.0 [facility] Comment on above: Performed By: #### R F #### [facility] [address] [place] [address] Dr. Venkat Sloan Hemoglobin (Bld) [Mass/Vol] 13.1 g/dL Normal 12.0-16.0 [facility] Comment on above: Performed By: #### R F #### [facility] [address] [place] [address] Dr. Venkat Sloan IG # 0.02 10e3/ul Normal 0.00-0.03 [facility] Comment on above: Performed By: #### R F #### [facility] [address] [place] [address] Dr. Venkat Sloan IG % 0.3 % Normal 0.0-0.5 [facility] Comment on above: Performed By: #### R F #### [facility] [address] [place] [address] Dr. Venkat Sloan LYMPH # 2.0 103/ul Normal 1.2-3.8 [facility] Comment on above: Performed By: #### R F #### [facility] [address] [place] [address] Dr. Venkat Sloan Lymphocytes/100 WBC (Bld) 26.2 % Normal 20.5-60.0 [facility] Comment on above: Performed By: #### R F #### [facility] [address] [place] [address] Dr. Venkat Sloan MANUAL DIFF REQ NO Normal [facility] Comment on above: Performed By: #### R F #### [facility] [address] [place] [address] Dr. Venakt Sloan MCH (RBC) [Entitic mass] 28.4 pg Normal 26.7-34.0 [facility] Comment on above: Performed By: #### R F #### [facility] [address] [place] [address] Dr. Venkat Sloan MCHC (RBC) [Mass/Vol] 32.4 g/dL Normal 29.9-35.2 [facility] Comment on above: Performed By: #### R F #### [facility] [address] [place] [address] Dr. Venkat Sloan MCV (RBC) [Entitic vol] 87.4 fL Normal 81.0-99.0 [facility] Comment on above: Performed By: #### R F #### [facility] [address] [place] [address] Dr. Venkat Sloan MONO # 0.7 103/ul Normal 0.3-0.8 [facility] Comment on above: Performed By: #### R F #### [facility] [address] [place] [address] Dr. Venkat Sloan Monocytes/100 WBC (Bld) 8.8 % Normal 1.7-12.0 [facility] Comment on above: Performed By: #### R F #### [facility] [address] [place], [place] [id number] Dr. Venkat Sloan NEUT # 4.8 103/ul Normal 1.4-6.5 [facility] Comment on above: Performed By: #### R F #### [facility] [address] [place] [address] Dr. Venkat Sloan Neutrophils/100 WBC (Bld) 62.5 % Normal 43.0-75.0 [facility] Comment on above: Performed By: #### R F #### [facility] [address] [place] [address] Dr. Venkat Sloan Platelet mean volume (Bld) [Entitic vol] 8.5 fL Critically low 9.5-13.5 [facility] Comment on above: Performed By: #### R F #### [facility] [address] [place] [address] Dr. Venkat Sloan PLT 331 103/ul Normal 150-450 [facility] Comment on above: Performed By: #### R F #### [facility] [address] [place] [address] Dr. Venkat Sloan RBC 4.62 106/ul Normal 4.20-5.40 [facility] Comment on above: Performed By: #### R F #### [facility] [address] [place] [address] Dr. Venkat Sloan WBC 7.7 103/ul Normal 4.0-11.0 [facility] Comment on above: Performed By: #### R F #### [facility] [address] [place] [address] Dr. Venkat Sloan PREG QUANT HCGon 07-08-2022 HCG QUANT <1 Normal [facility] Comment on above: Performed By: #### P REGQNT #### [facility] [address] [place] [address] Dr. Venkat Sloan HCG RANGE SEE BELOW Normal [facility] Comment on above: Result Comment: 5-50 0.2-1 WEEK 50-500 1-2 WEEKS 100-5,000 2-3 WEEKS 500-10,000 3-4 WEEKS 1,000-50,000 4-5 WEEKS 10,000-100,000 5-6 WEEKS 15,000-200,000 6-8 WEEKS 10,000-100,000 2-3 MONTHS Performed By: #### P REGQNT #### [facility] [address] [place] [address] Dr. Venkat Sloan PROGESTERONEon 06-23-2022 Progesterone 5.7 ng/mL Normal [facility] Comment on above: Result Comment: Foll icular phase 0.1 - 0.9 Luteal phase 1.8 - 23.9 Ovulation phase 0.1 - 12.0 First trimester 11.0 - 44.3 Second trimester 25.4 - 83.3 Third trimester 58.7 - 214.0 Postmenopausal 0.0 - 0.1 Performed By: #### T SH #### [facility] [address] [place] [address] Dr. Venkat Sloan PREG QUANT HCGon 05-31-2022 HCG QUANT 1 mIU/mL Normal [facility] Comment on above: Performed By: #### P REGQNT #### [facility] [address] [place] [address] Dr. Venkat Sloan HCG RANGE SEE BELOW Normal [facility] Comment on above: Result Comment: 5-50 0.2-1 WEEK 50-500 1-2 WEEKS 100-5,000 2-3 WEEKS 500-10,000 3-4 WEEKS 1,000-50,000 4-5 WEEKS 10,000-100,000 5-6 WEEKS 15,000-200,000 6-8 WEEKS 10,000-100,000 2-3 MONTHS Performed By: #### P REGQNT #### [facility] [address] [place] [address] Dr. Venkat Sloan PROGESTERONEon 05-21-2022 Progesterone 12.4 ng/mL Normal [facility] Comment on above: Result Comment: Foll icular phase 0.1 - 0.9 Luteal phase 1.8 - 23.9 Ovulation phase 0.1 - 12.0 First trimester 11.0 - 44.3 Second trimester 25.4 - 83.3 Third trimester 58.7 - 214.0 Postmenopausal 0.0 - 0.1 Performed By: #### I NFLUAB #### [facility] [address] [address] [address] Venkat Sloan MRI BRAIN WO W [...] LAM VELA Date: 2022-05-04 08:42 Normal [facility] PREG QUANT HCGon 05-04-2022 HCG QUANT <1 Normal [facility] Comment on above: Performed By: #### R F #### [facility] [address] [place] [address] Dr. Venkat Sloan HCG RANGE SEE BELOW Normal [facility] Comment on above: Result Comment: 5-50 0.2-1 WEEK 50-500 1-2 WEEKS 100-5,000 2-3 WEEKS 500-10,000 3-4 WEEKS 1,000-50,000 4-5 WEEKS 10,000-100,000 5-6 WEEKS 15,000-200,000 6-8 WEEKS 10,000-100,000 2-3 MONTHS Performed By: #### R F #### [facility] [address] [place] [address] Dr. Venkat Sloan XR HYSTEROSALPINGOGRAMon XR HYSTEROSALPINGOGRAM [...] by: LAM VELA Date: 2022-05-04 16:09 Normal [facility] PROGESTERONEon 04-24-2022 Progesterone 0.4 ng/mL Normal [facility] Comment on above: Result Comment: Foll icular phase 0.1 - 0.9 Luteal phase 1.8 - 23.9 Ovulation phase 0.1 - 12.0 First trimester 11.0 - 44.3 Second trimester 25.4 - 83.3 Third trimester 58.7 - 214.0 Postmenopausal 0.0 - 0.1 Performed By: #### I NFLUAB #### [facility] [address] [place] [address] Dr. Venkat Sloan CULTURE SPUTUMon 04-02-2022 CULTURE SPUTUM Culture Observations : NORMAL RESPIRATORY NATALEE. Normal [facility] Comment on above: Performed By: #### R F #### [facility] [address] [place] [address] Dr. Venkat Sloan SPUTUM GRAM STAINon 04-02-19 23 COMMENTS Normal [facility] Comment on above: Performed By: #### R F #### [facility] [address] [place] [address] Dr. Venkat Sloan DIPHTHEROIDS Normal [facility] Comment on above: Performed By: #### R F #### [facility] [address] [place] [address] Dr. Venkat Sloan EPITHELIALS <25 Normal [facility] Comment on above: Performed By: #### R F #### [facility] [address] [place] [address] Dr. Venkat Sloan FUNGAL ELEMENTS Normal [facility] Comment on above: Performed By: #### R F #### [facility] [address] [place] [address] Dr. Venkat Sloan GRAM NEG BACILLI RARE Normal [facility] Comment on above: Performed By: #### R F #### [facility] [address] [place] [address] Dr. Venkat Sloan GRAM NEG DIPPLOCOCCI Normal [facility] Comment on above: Performed By: #### R F #### [facility] [address] [place] [address] Dr. Venkat Sloan GRAM POS BACILLI Normal [facility] Comment on above: Performed By: #### R F #### [facility] [address] [place] [address] Dr. Venkat Sloan GRAM POSITIVE COCCI RARE Normal [facility] Comment on above: Performed By: #### R F #### [facility] [address] [place] [address] Dr. Venkat Sloan WBC (Bld) [#/Vol] 10*3/uL Normal [facility] Comment on above: Performed By: #### R F #### [facility] [address] [place] [address] Dr. Venkat Sloan Covid-19 PCR (CVD[facility])on SARS-CoV-2 (COVID-19) RNA SHIRIN+probe Ql (Unsp spec) Not detected Normal NOT DETECTED [facility] Comment on above: Result Comment: This test is not yet approved or cleared by the [place] FDA. When there are no FDA-approved or cleared tests available, and other criteria are met, FDA can make tests available under an emergency access mechanism called an Emergency Use Authorization (EUA). The EUA for this test is supported by the [place] of Health and Human Service's (HHS's) declaration [...] SARS-CoV-2. Performed By: #### P REGQNT #### [facility] [address] [place] [address] Dr. Venkat Sloan INFLUENZA A AND B AGon 04-01 INFLUANE SEE BELOW Normal [facility] Comment on above: Result Comment: Nega tive for Flu A protein angiten. Infection due to Flu A cannot be ruled out. Flu A angiten in the sample may be below the detection limit of the test. Performed By: #### I NFLUAB #### [facility] [address] [place] [address] Dr. Venkat Sloan INFLUBNEGH SEE BELOW Normal [facility] Comment on above: Result Comment: Nega tive for Flu B protein antigen. Infection due to Flu B cannot be ruled out. Flu B antigen in the sample may be below the detection limit of the test. Performed By: #### I NFLUAB #### [facility] [address] [place] [address] Dr. Venkat Sloan INFLUENZA A AG Negative Normal NEGATIVE SEE COMMENT [facility] Comment on above: Performed By: #### I NFLUAB #### [facility] [address] [place] [address] Dr. Venkat Sloan INFLUENZA B AG Negative Normal NEGATIVE SEE COMMENT [facility] Comment on above: Performed By: #### I NFLUAB #### [facility] [address] [place] [address] Dr. Venkat Sloan XR CHEST 2 Von [...] [address] Date: 2022-03-24 12:33 Normal [facility] SARS-CoV-2 (COVID-19) RNA SHIRIN+probe Ql (Unsp spec) Not detected Normal NOT DETECTED [facility] Comment [...] for this test is supported by the [place] of Health and Human Service's declaration that [...] used). Performed By: #### R F #### [facility] [address] [place] [address] Dr. Venkat Sloan INFLUENZA A AND B [facility] 03-15 [facility] SEE BELOW Normal [facility] Comment on above: Result Comment: Nega tive for Flu A protein angiten. Infection due to Flu A cannot be ruled out. Flu A angiten in the sample may be below the detection limit of the test. Performed By: #### I NFLUAB #### [facility] [address] [place] [address] Dr. Venkat Sloan [facility] SEE BELOW Normal [facility] Comment on above: Result Comment: Nega tive for Flu B protein antigen. Infection due to Flu B cannot be ruled out. Flu B antigen in the sample may be below the detection limit of the test. Performed By: #### I NFLUAB #### [facility] [address] [place] [address] Dr. Venkat Sloan INFLUENZA A AG Negative Normal NEGATIVE SEE COMMENT [facility] Comment on above: Performed By: #### I NFLUAB #### [facility] [address] [place] [address] Dr. Venkat Sloan INFLUENZA B AG Negative Normal NEGATIVE SEE COMMENT [facility] Comment on above: Performed By: #### I NFLUAB #### [facility] [address] [place] [address] Dr. Venkat Sloan INTERNAL CONTROLS Within Normal Limits Normal Wi thin Normal Limits [facility] Comment on above: Performed By: #### I NFLUAB #### [facility] [address] [place] [address] Dr. Venkat Sloan Covid-19 PCR ([facility])on 02-25 SARS-CoV-2 (COVID-19) RNA SHIRIN+probe Ql (Unsp spec) Not detected Normal NOT DETECTED [facility] Comment [...] for this test is supported by the [employer] of Health and Human Service's declaration that [...] used). Performed By: #### I NFLUAB #### [facility] [address] [place] [address] Dr. Venkat Sloan INFLUENZA A AND B AGon 03-12 INFLUANE SEE BELOW Normal [facility] Comment on above: Result Comment: Nega tive for Flu A protein angiten. Infection due to Flu A cannot be ruled out. Flu A angiten in the sample may be below the detection limit of the test. Performed By: #### I NFLUAB #### [facility] [address] [place] [address] Dr. Venkat Sloan INFLUBNEG SEE BELOW Normal [facility] Comment on above: Result Comment: Nega tive for Flu B protein antigen. Infection due to Flu B cannot be ruled out. Flu B antigen in the sample may be below the detection limit of the test. Performed By: #### I NFLUAB #### [facility] [address] [place] [address] Dr. Venkat Sloan INFLUENZA A AG Negative Normal NEGATIVE SEE COMMENT [facility] Comment on above: Performed By: #### I NFLUAB #### [facility] [address] [place] [address] Dr. Venkat Sloan INFLUENZA B AG Negative Normal NEGATIVE SEE COMMENT [facility] Comment on above: Performed By: #### I NFLUAB #### [facility] [address] [place] [address] Dr. Venkat Sloan INTERNAL CONTROLS Within Normal Limits Normal Wi thin Normal Limits [facility] Comment on above: Performed By: #### I NFLUAB #### [facility] [address] [place] [address] Dr. Venkat Sloan PROGESTERONEon 02-20-2022 Progesterone 0.3 ng/mL Normal [facility] Comment on above: Result Comment: Foll icular phase 0.1 - 0.9 Luteal phase 1.8 - 23.9 Ovulation phase 0.1 - 12.0 First trimester 11.0 - 44.3 Second trimester 25.4 - 83.3 Third trimester 58.7 - 214.0 Postmenopausal 0.0 - 0.1 Performed By: #### R F #### [facility] [address] [place] [address] Dr. Venkat Sloan ACTH STIMULATIONon 2 Andros Baseline 49 ng/dL Normal 41-262 [facility] Comment on above: Performed By: #### R F #### [facility] [address] [place] [address] Dr. Venkat Sloan Andros Stimulated 82 ng/dL Normal Not Estab. [facility] Comment on above: Performed By: #### R F #### [facility] [address] [place] [address] Dr. Venkat Sloan [facility]on 01-26 SARS-CoV-2 (COVID-19) RNA SHIRIN+probe Ql (Unsp spec) Not detected Normal NOT DETECTED [facility] Comment on above: Result Comment: This test is not yet approved or cleared by the [place] FDA. When there are no FDA-approved or cleared tests available, and other criteria are met, FDA can make tests available under an emergency access mechanism called an Emergency Use Authorization (EUA). The EUA for this test is supported by the [place] of Health and Human Service's (HHS's) declaration [...] SARS-CoV-2. Performed By: #### I NFLUAB #### [facility] [address] [place] [address] Dr. Venkat Sloan INFLUENZA A AND B AGon 02-10 INFLUANE SEE BELOW Normal [facility] Comment on above: Result Comment: Nega tive for Flu A protein angiten. Infection due to Flu A cannot be ruled out. Flu A angiten in the sample may be below the detection limit of the test. Performed By: #### P REGQNT #### [facility] [address] [place] [address] Dr. Venkat Sloan INFLUBNEGH SEE BELOW Normal [facility] Comment on above: Result Comment: Nega tive for Flu B protein antigen. Infection due to Flu B cannot be ruled out. Flu B antigen in the sample may be below the detection limit of the test. Performed By: #### P REGQNT #### [facility] [address] [place] [address] Dr. Venkat Sloan INFLUENZA A AG Negative Normal NEGATIVE SEE COMMENT [facility] Comment on above: Performed By: #### P REGQNT #### [facility] [address] [place] [address] Dr. Venkat Sloan INFLUENZA B AG Negative Normal NEGATIVE SEE COMMENT [facility] Comment on above: Performed By: #### P REGQNT #### [facility] [address] [address] [address] Venkat Sloan INTERNAL CONTROLS Within Normal Limits Normal Wi thin Normal Limits [facility] Comment on above: Performed By: #### P REGQNT #### [facility] [address] [address] [address] Venkat Sloan DHEA SERUMon 01-19-2022 Dehydroepiandrosterone (DHEA) 82 ng/dL Normal 31-701 [facility] Comment on above: Result Comment: [...] 701 Performed By: #### T SH #### [facility] [address] [address] [address] Venkat Sloan DHEA-SULFATEon 01-14-2022 DHEA-Sulfate 34.0 ug/dL Critically low 84.8-378.0 [facility] Comment on above: Performed By: #### R F #### [facility] [address] [place] [address] Dr. Venkat Sloan FSHon 01-14-2022 FSH 2.2 mIU/mL Normal [facility] Comment on above: Result Comment: Adul t Female: Follicular phase 3.5 - 12.5 Ovulation phase 4.7 - 21.5 Luteal phase 1.7 - 7.7 Postmenopausal 25.8 - 134.8 Performed By: #### L BCFSH #### [facility] [address] [place] [address] Dr. Venkat Sloan LUTEINIZING HORMONE (LH)on LH 5.1 mIU/mL Normal [facility] Comment on above: Result Comment: Adul t Female: Follicular phase 2.4 - 12.6 Ovulation phase 14.0 - 95.6 Luteal phase 1.0 - 11.4 Postmenopausal 7.7 - 58.5 Performed By: #### I NFLUAB #### [facility] [address] [place] [address] Dr. Venkat Sloan PROLACTINon 01-14-2022 Prolactin 8.0 ng/mL Normal 4.8-23.3 [facility] Comment on above: Performed By: #### P ROLAC #### [facility] [address] [place] [address] Dr. Venkat Sloan CBC AUTO DIFFon 01-13-2022 BASO # 0.0 103/ul Normal 0.0-0.1 [facility] Comment on above: Performed By: #### T SH #### [facility] [address] [place] [address] Dr. Venkat Sloan Basophils/100 WBC (Bld) 0.4 % Normal 0.2-2.0 [facility] [facility] Comment on above: Performed By: #### T SH #### [facility] [address] [place] [address] Dr. Venkat Sloan EO # 0.1 103/ul Normal 0.0-0.7 [facility] Comment on above: Performed By: #### T SH #### [facility] [address] [place] [address] Dr. Venkat Sloan Eosinophils/100 WBC (Bld) 1.2 % Normal 0.9-7.0 [facility] Comment on above: Performed By: #### T SH #### [facility] [address] [place] [address] Dr. Venkat Sloan Erythrocyte distribution width (RBC) [Ratio] 12.7 % Normal 11.0-15.0 [facility] Comment on above: Performed By: #### T SH #### [facility] [address] [place] [address] Dr. Venkat Sloan Hematocrit (Bld) [Volume fraction] 41.1 % Normal 36.0-48.0 [facility] Comment on above: Performed By: #### T SH #### [facility] [address] [place] [address] Dr. Venkat Sloan Hemoglobin (Bld) [Mass/Vol] 13.1 g/dL Normal 12.0-16.0 [facility] Comment on above: Performed By: #### T SH #### [facility] [address] [place] [address] Dr. Venkat Sloan IG # 0.03 10e3/ul Normal 0.00-0.03 [facility] Comment on above: Performed By: #### T SH #### [facility] [address] [place] [address] Dr. Venkat Sloan IG % 0.3 % Normal 0.0-0.5 [facility] Comment on above: Performed By: #### T SH #### [facility] [address] [place] [address] Dr. Venkat Sloan LYMPH # 1.6 103/ul Normal 1.2-3.8 [facility] Comment on above: Performed By: #### T SH #### [facility] [address] [place] [address] Dr. Venkat Sloan Lymphocytes/100 WBC (Bld) 15.0 % Critically low 20.5-60.0 [facility] Comment on above: Performed By: #### T SH #### [facility] [address] [place] [address] Dr. Venkat Sloan MANUAL DIFF REQ NO Normal [facility] Comment on above: Performed By: #### T SH #### [facility] [address] [place] [address] Dr. Venkat Sloan MCH (RBC) [Entitic mass] 28.5 pg Normal 26.7-34.0 [facility] Comment on above: Performed By: #### T SH #### [facility] [address] [place] [address] Dr. Venkat Sloan MCHC (RBC) [Mass/Vol] 31.9 g/dL Normal 29.9-35.2 [facility] Comment on above: Performed By: #### T SH #### [facility] [address] [place] [address] Dr. Venkat Sloan MCV (RBC) [Entitic vol] 89.3 fL Normal 81.0-99.0 [facility] Comment on above: Performed By: #### T SH #### [facility] [address] [address] [address] Venkat Sloan MONO # 0.9 103/ul Critically high 0.3-0.8 [facility] Comment on above: Performed By: #### T SH #### [facility] [address] [address] [address] Venkat Sloan Monocytes/100 WBC (Bld) 8.8 % Normal 1.7-12.0 [facility] Comment on above: Performed By: #### T SH #### [facility] [address] [address] [address] Venkat Sloan NEUT # 7.9 103/ul Critically high 1.4-6.5 [facility] Comment on above: Performed By: #### T SH #### [facility] [address] [place] [address] Dr. Venkat Sloan Neutrophils/100 WBC (Bld) 74.3 % Normal 43.0-75.0 [facility] Comment on above: Performed By: #### T SH #### [facility] [address] [place] [address] Dr. Venkat Sloan Platelet mean volume (Bld) [Entitic vol] 9.2 fL Critically low 9.5-13.5 [facility] Comment on above: Performed By: #### T SH #### [facility] [address] [place] [address] Dr. Venkat Sloan PLT 300 103/ul Normal 150-450 [facility] Comment on above: Performed By: #### T SH #### [facility] [address] [address] [address] Venkat Sloan RBC 4.60 106/ul Normal 4.20-5.40 [facility] Comment on above: Performed By: #### T SH #### [facility] [address] [place] [address] Dr. Venkat Sloan WBC 10.7 103/ul Normal 4.0-11.0 [facility] Comment on above: Performed By: #### T SH #### [facility] [address] [address] [address] Venkat Sloan GLYCOHEMOGLOBIN A1Con 2021 ADA RECOMMENDATION SEE BELOW Normal [facility] Comment on above: Result Comment: ADA RECOMMENDED LIMIT 4.0 - 6.0 ADA THERAPEUTIC TARGET < 7.0 ACTION SUGGESTED > 7.0 Performed By: #### P REGQNT #### [facility] [address] [place] [address] Dr. Venkat Sloan Glucose [Mass/Vol] 100 mg/dL Normal [facility] Comment on above: Performed By: #### P REGQNT #### [facility] [address] [place] [address] Dr. Venkat Sloan HbA1c (Bld) [Mass fraction] 5.1 % Normal 4.5-6.2 [facility] Comment on above: Performed By: #### P REGQNT #### [facility] [address] [place] [address] Dr. Venkat Sloan TSHon 01-13-2022 TSH 1.098 uIU/mL Normal 0.358-3.740 [facility] Comment on above: Performed By: #### T SH #### [facility] [address] [place] [address] Dr. Venkat Sloan [facility] SARS-CoV-2 (COVID-19) RNA SHIRIN+probe Ql (Unsp spec) Not detected Normal NOT DETECTED [facility] Comment on above: Result Comment: This test is not yet approved or cleared by the [place] FDA. When there are no FDA-approved or cleared tests available, and other criteria are met, FDA can make tests available under an emergency access mechanism called an Emergency Use Authorization (EUA). The EUA for this test is supported by the Business Analysis Analyst of Health and Human Service's (HHS's) declaration [...] SARS-CoV-2. Performed By: #### I NFLUAB #### [facility] [address] [place] [address] Dr. Venkat Sloan PREG QUANT HCGon 12-24-2021 HCG QUANT <1 Normal [facility] Comment on above: Performed By: #### P REGQNT #### [facility] [address] [place] [address] Dr. Venkat Sloan HCG RANGE SEE BELOW Normal [facility] Comment on above: Result Comment: 5-50 0.2-1 WEEK 50-500 1-2 WEEKS 100-5,000 2-3 WEEKS 500-10,000 3-4 WEEKS 1,000-50,000 4-5 WEEKS 10,000-100,000 5-6 WEEKS 15,000-200,000 6-8 WEEKS 10,000-100,000 2-3 MONTHS Performed By: #### P REGQNT #### [facility] [address] [place] [address] Dr. Venkat Sloan HCG-BETA SUBUNIT QUANTon hCG,Beta Subunit,Qnt,Serum <1 Normal [facility] Comment on above: Result Comment: Fema le (Non-) 0 - 5 (Postmenopausal) 0 - 8 . Female () Weeks of Gestation 3 6 - 71 4 10 - 750 5 217 - 6938 6 158 - 00428 7 [phone] -[id number] 8 86509 -[phone] 9 60147 -[phone] 10 46459 -000053 12 15414 -183780 14 32062 - 71334 15 63667 - 13020 16 7086 - 83675 17 6446 - 09199 18 0545 - 43565 Aj ECLIA methodology Performed By: #### T SH #### [facility] [address] [place] [address] Dr. Venkat Sloan BRETT by IFAon 09-29-2021 Antinuclear Antibodies, IFA Negative Normal [facility] Comment on above: Result Comment: Nega tive <1:80 Borderline 1:80 Positive >1:80 ICAP nomenclature: AC-0 For more information about Hep-2 cell patterns use ANApatterns.org, the official website for the International Consensus on Antinuclear Antibody (BRETT) Patterns (ICAP). Performed By: #### A NAIFA #### [facility] [address] [place] [address] Dr. Venkat Sloan INSULINon 09-29-2021 Insulin 11.1 uIU/mL Normal 2.6-24.9 [facility] Comment on above: Performed By: #### T SH #### [facility] [address] [place] [address] Dr. Venkat Sloan ANTISTREPTOLYSIN O AB (ASO)o n 09-27-2021 Antistreptolysin O Ab <20.0 Normal 0.0-200.0 [facility] Comment on above: Performed By: #### P REGQNT #### [facility] [address] [place] [address] Dr. Venkat Sloan RHEUMATOID FACTORon 09-28-19 RA Latex Turbid. <10.0 Normal <14.0 [facility] Comment on above: Performed By: #### R F #### [facility] [address] [place] [address] Dr. Venkat Sloan CBC AUTO DIFFon 09-26-2021 BASO # 0.0 103/ul Normal 0.0-0.1 [facility] Comment on above: Performed By: #### T SH #### [facility] [address] [place] [address] Dr. Venkat lSoan Basophils/100 WBC (Bld) 0.3 % Normal 0.2-2.0 [facility] Comment on above: Performed By: #### T SH #### [facility] [address] [place] [address] Dr. Venkat Sloan EO # 0.1 103/ul Normal 0.0-0.7 [facility] Comment on above: Performed By: #### T SH #### [facility] [address] [place] [address] Dr. Venkat Sloan Eosinophils/100 WBC (Bld) 1.8 % Normal 0.9-7.0 [facility] Comment on above: Performed By: #### T SH #### [facility] [address] [place] [address] Dr. Venkat Sloan Erythrocyte distribution width (RBC) [Ratio] 12.9 % Normal 11.0-15.0 [facility] Comment on above: Performed By: #### T SH #### [facility] [address] [place] [address] Dr. Venkat Sloan Hematocrit (Bld) [Volume fraction] 39.8 % Normal 36.0-48.0 [facility] Comment on above: Performed By: #### T SH #### [facility] [address] [place] [address] Dr. Venkat Sloan Hemoglobin (Bld) [Mass/Vol] 12.7 g/dL Normal 12.0-16.0 [facility] Comment on above: Performed By: #### T SH #### [facility] [address] [place] [address] Dr. Venkat Sloan IG # 0.02 10e3/ul Normal 0.00-0.03 [facility] Comment on above: Performed By: #### T SH #### [facility] [address] [place] [address] Dr. Venkat Sloan IG % 0.3 % Normal 0.0-0.5 [facility] Comment on above: Performed By: #### T SH #### [facility] [address] [place] [address] Dr. Venkat Sloan LYMPH # 1.5 103/ul Normal 1.2-3.8 [facility] Comment on above: Performed By: #### T SH #### [facility] [address] [place] [address] Dr. Venkat Sloan Lymphocytes/100 WBC (Bld) 21.5 % Normal 20.5-60.0 [facility] Comment on above: Performed By: #### T SH #### [facility] [address] [place] [address] Dr. Venkat Sloan MANUAL DIFF REQ NO Normal [facility] Comment on above: Performed By: #### T SH #### [facility] [address] [place] [address] Dr. Venkat Sloan MCH (RBC) [Entitic mass] 28.5 pg Normal 26.7-34.0 [facility] Comment on above: Performed By: #### T SH #### [facility] [address] [place] [address] Dr. Venkat Sloan MCHC (RBC) [Mass/Vol] 31.9 g/dL Normal 29.9-35.2 [facility] Comment on above: Performed By: #### T SH #### [facility] [address] [place] [address] Dr. Venkat Sloan MCV (RBC) [Entitic vol] 89.2 fL Normal 81.0-99.0 [facility] Comment on above: Performed By: #### T SH #### [facility] [address] [place] [address] Dr. Venkat Sloan MONO # 0.5 103/ul Normal 0.3-0.8 [facility] Comment on above: Performed By: #### T SH #### [facility] [address] [place] [address] Dr. Venkat Sloan Monocytes/100 WBC (Bld) 7.6 % Normal 1.7-12.0 [facility] Comment on above: Performed By: #### T SH #### [facility] [address] [place] [address] Dr. Venkat Sloan NEUT # 4.9 103/ul Normal 1.4-6.5 [facility] Comment on above: Performed By: #### T SH #### [facility] [address] [place] [address] Dr. Venkat Sloan Neutrophils/100 WBC (Bld) 68.5 % Normal 43.0-75.0 [facility] Comment on above: Performed By: #### T SH #### [facility] [address] [place] [address] Dr. Venkat Sloan Platelet mean volume (Bld) [Entitic vol] 8.8 fL Critically low 9.5-13.5 [facility] Comment on above: Performed By: #### T SH #### [facility] [address] [address] [address] Venkat Sloan PLT 297 103/ul Normal 150-450 [facility] Comment on above: Performed By: #### T SH #### [facility] [address] [address] [address] Venkat Sloan RBC 4.46 106/ul Normal 4.20-5.40 [facility] Comment on above: Performed By: #### T SH #### [facility] [address] [address] [address] Venkat Sloan WBC 7.1 103/ul Normal 4.0-11.0 [facility] Comment on above: Performed By: #### T SH #### [facility] [address] [place] [address] Dr. Venkat Sloan CRPon 09-26-2021 CRP [Mass/Vol] mg/L Normal <=1.0 [facility] Comment on above: Performed By: #### P REGQNT #### [facility] [address] [place] [address] Dr. Venkat Sloan FREE THYROXINE INDEX T7on FTI 2.71 Normal 1.30-4.50 [facility] Comment on above: Performed By: #### P REGQNT #### [facility] [address] [place] [address] Dr. Venkat Sloan T3U 33.0 % Normal 30.0-39.0 [facility] Comment on above: Performed By: #### P REGQNT #### [facility] [address] [address] [address] Venkat Sloan T4 [Mass/Vol] 8.20 ug/dL Normal 4.80-13.90 [facility] Comment on above: Performed By: #### P REGQNT #### [facility] [address] [place] [address] Dr. Venkat Sloan GLYCOHEMOGLOBIN A1Con 2021 ADA RECOMMENDATION SEE BELOW Normal [facility] Comment on above: Result Comment: ADA RECOMMENDED LIMIT 4.0 - 6.0 ADA THERAPEUTIC TARGET < 7.0 ACTION SUGGESTED > 7.0 Performed By: #### I NFLUAB #### [facility] [address] [place] [address] Dr. Venkat Sloan Glucose [Mass/Vol] 105 mg/dL Normal [facility] Comment on above: Performed By: #### I NFLUAB #### [facility] [address] [address] [address] Venkat Sloan HbA1c (Bld) [Mass fraction] 5.3 % Normal 4.5-6.2 [facility] Comment on above: Performed By: #### I NFLUAB #### [facility] [address] [place] [address] Dr. Venkat Sloan IRONon 09-26-2021 Iron [Mass/Vol] 49.0 ug/dL Critically low 50.0-170.0 [facility] Comment on above: Performed By: #### P REGQNT #### [facility] [address] [place] [address] Dr. Venkat Sloan LIPID PROFILEon 09-26-2021 CHOL-HDL RATIO NORM SEE BELOW Normal [facility] Comment on above: Result Comment: 3.3 - 4.4 LOW RISK 4.4 - 7.1 AVERAGE RISK 7.1 - 11.0 MODERATE RISK >11.0 HIGH RISK Performed By: #### P REGQNT #### [facility] [address] [address] [address] Venkat Sloan Cholesterol [Mass/Vol] 197 mg/dL Normal <=200 Th [facility] Comment on above: Performed By: #### P REGQNT #### [facility] [address] [place] [address] Dr. Venkat Sloan Cholesterol in HDL [Mass/Vol] 64 mg/dL Critically high 40-60 [facility] Comment on above: Performed By: #### P REGQNT #### [facility] [address] [place] [address] Dr. Venkat Sloan Cholesterol in LDL [Mass/Vol] 123.4 mg/dL Normal [facility] Comment on above: Performed By: #### P REGQNT #### [facility] [address] [address] [address] Venkat Sloan Cholesterol.total/Choles terol in HDL [Mass ratio] 3.1 {ratio} Normal [facility] Comment on above: Performed By: #### P REGQNT #### [facility] [address] [address] [address] Venkat Sloan HDL NORMAL > or = 60 mg/dl - LO W CARDIOVASCULAR RISK <40 mg/dl - HIGH CARDIOVASCULAR RISK Normal [facility] Comment on above: Performed By: #### P REGQNT #### [facility] [address] [address] [address] Venkat Sloan LDL CALC NORMAL SEE BELOW Normal [facility] Comment on above: Result Comment: <100 mg/dl OPTIMAL 100 - 129 mg/dl NEAR OR ABOVE OPTIMAL 130 - 159 mg/dl BORDERLINE HIGH 160 - 189 mg/dl HIGH >190 mg/dl VERY HIGH Performed By: #### P REGQNT #### [facility] [address] [address] [address] Venkat Sloan Triglyceride [Mass/Vol] 48 mg/dL Normal <=150 T [facility] Comment on above: Performed By: #### P REGQNT #### [facility] [address] [address] [address] Venkat Sloan VLDL CALC 9.6 mg/dL Normal [facility] Comment on above: Performed By: #### P REGQNT #### [facility] [address] [address] [address] Venkat Sloan PROF 14(COMP METB)on 022 Albumin [Mass/Vol] 4.0 g/dL Normal 3.4-5.0 [facility] Comment on above: Performed By: #### I NFLUAB #### [facility] [address] [address] [address] Venkat Sloan Albumin/Globulin [Mass ratio] 1.3 {ratio} Normal [facility] Comment on above: Performed By: #### I NFLUAB #### [facility] [address] [address] [address] Venkat Sloan ALP [Catalytic activity/Vol] 58 U/L Normal 46-116 [facility] Comment on above: Performed By: #### I NFLUAB #### [facility] [address] [address] [address] Venkat Sloan ALT [Catalytic activity/Vol] 20 U/L Normal 14-59 [facility] Comment on above: Performed By: #### I NFLUAB #### [facility] [address] [address] [address] Venkat Sloan Anion gap [Moles/Vol] 10.4 mmol/L Normal [facility] Comment on above: Performed By: #### I NFLUAB #### [facility] [address] [address] [address] Venkat Sloan AST [Catalytic activity/Vol] 11 U/L Critically low 15-37 [facility] Comment on above: Performed By: #### I NFLUAB #### [facility] [address] [address] [address] Venkat Sloan Bilirubin [Mass/Vol] 0.8 mg/dL Normal 0.2-1.0 [facility] Comment on above: Performed By: #### I NFLUAB #### [facility] [address] [address] [address] Venkat Sloan Calcium [Mass/Vol] 9.0 mg/dL Normal 8.5-10.1 [facility] Comment on above: Performed By: #### I NFLUAB #### [facility] [address] [address] [address] Venkat Sloan Chloride [Moles/Vol] 106 mmol/L Normal 98-107 [facility] Comment on above: Performed By: #### I NFLUAB #### [facility] [address] [address] [address] Venkat Sloan CO2 [Moles/Vol] 27.0 mmol/L Normal 21.0-32.0 [facility] Comment on above: Performed By: #### I NFLUAB #### [facility] [address] [address] [address] Venkat Sloan Creatinine [Mass/Vol] 0.70 mg/dL Normal 0.55-1.02 [facility] Comment on above: Performed By: #### I NFLUAB #### [facility] [address] [address] [address] Venkat Sloan EGFR-AF OMANI >60 Normal >=60 [facility] Comment on above: Performed By: #### I NFLUAB #### [facility] [address] [address] [address] Venkat Sloan EGFR-NON AF OMANI >60 Normal >=60 [facility] Comment on above: Performed By: #### I NFLUAB #### [facility] [address] [place] [address] Dr. Venkat Sloan Globulin (S) [Mass/Vol] 3.2 g/dL Normal T [facility] Comment on above: Performed By: #### I NFLUAB #### [facility] [address] [address] [address] Venkat Sloan Glucose [Mass/Vol] 92 mg/dL Normal 74-106 [facility] Comment on above: Performed By: #### I NFLUAB #### [facility] [address] [place] [address] Dr. Venkat Sloan Potassium [Moles/Vol] 4.4 mmol/L Normal 3.5-5.1 [facility] Comment on above: Performed By: #### I NFLUAB #### [facility] [address] [address] [address] Venkat Sloan Protein [Mass/Vol] 7.2 g/dL Normal 6.4-8.2 [facility] Comment on above: Performed By: #### I NFLUAB #### [facility] [address] [address] [address] Venkat Sloan Sodium [Moles/Vol] 139 mmol/L Normal 136-145 [facility] Comment on above: Performed By: #### I NFLUAB #### [facility] [address] [address] [address] Venkat Sloan Urea nitrogen [Mass/Vol] 13.0 mg/dL Normal 7.0-18.0 [facility] Comment on above: Performed By: #### I NFLUAB #### [facility] [address] [place] [address] Dr. Venkat Sloan Urea nitrogen/Creatinine [Mass ratio] 18.6 mg/mg Normal [facility] Comment on above: Performed By: #### I NFLUAB #### [facility] [address] [address] [address] Venkat Sloan TSHon 09-26-2021 TSH 1.318 uIU/mL Normal 0.358-3.740 [facility] Comment on above: Performed By: #### P REGQNT #### [facility] [address] [place] [address] Dr. Venkat Sloan URIC ACID SERUMon 09-26-2021 Urate [Mass/Vol] 3.9 mg/dL Normal 2.6-6.0 [facility] Comment on above: Performed By: #### P REGQNT #### [facility] [address] [place] [address] Dr. Venkat Sloan XR CSPINE MIN 4 [...] DUDLEY HERNÁNDEZ Date: 2021-09-24 21:16 Normal The [facility] PREG QUANT HCGon 08-17-2021 HCG QUANT <1 Normal [facility] Comment on above: Performed By: #### I NFLUAB #### [facility] [address] [place] [address] Dr. Venkat Sloan HCG RANGE SEE BELOW Normal [facility] Comment on above: Result Comment: 5-50 0-1 WEEK 40-300 1-2 WEEKS 100-1,000 2-3 WEEKS 500-6,000 3-4 WEEKS 5,000-200,000 1-2 MONTHS 10,000-100,000 2-3 MONTHS 3,000-50,000 2ND TRIMESTER 1,000-50,000 3RD TRIMESTER Performed By: #### I NFLUAB #### [facility] [address] [place] [address] Dr. Venkat Sloan US PELVIS AND TRANSVAGon [...] by: DUDLEY HERNÁNDEZ Date: 2021-08-17 07:01 Normal [facility] COVID Quick Testingon 2020 Result Negative [employer] Other Vital Signs Date Time Vital Sign Value Performing Clinician Facility 05-22-2023 09:0500 Body height 154.94 cm [facility] 05-22-2023 09:0500 Body mass index (BMI) [Ratio] 30.8 kg/m2 [facility] 05-22-2023 09:270500 Body temperature 98.1 [degF] [facility] 05-22-2023 09:0500 Body weight 74.04 kg [facility] 05-22-2023 09:27-0500 Heart rate 78 /min [facility] 05-22-2023 09:27-0500 Respiratory rate 16 /min [facility] 05-22-2023 09:27-0500 SaO2% (BldA) [Mass fraction] 98 % [facility] 05-10-2023 15:14-0500 Body mass index (BMI) [Ratio] 30.04 kg/m2 Ricardo Jennifer DO Work Phone: [facility] 05-10-2023 15:14-0500 Body weight 72.12 kg Ricardo Jennifer DO Work Phone: [facility] 05-10-2023 15:14-0500 Diastolic blood pressure 70 mm[Hg] Ricardo Jennifer DO Work Phone: [facility] 05-10-2023 15:14-0500 Systolic blood pressure 110 mm[Hg] Ricardo Jennifer [employer] Work Phone: [facility] 01-27-2021 18:45-0400 Body height 154.94 cm Mohini Juan Other [employer] Other 01-27-2021 18:45-0400 Body mass index (BMI) [Ratio] 28.34 kg/m2 Mohini Juan Other [employer] Other 01-27-2021 18:45-0400 Body temperature 96.4 [degF] Mohini Juan Other [employer] Other 01-27-2021 18:45-0400 Body weight 68.04 kg Mohini Buttault Other [employer] Other 01-27-2021 18:45-0400 Respiratory rate 18 /min Mohininavin Martinez Other [employer] Other 01-27-2021 18:45-0400 SaO2% (BldA) [Mass fraction] 99 % Mohini Martinez Other [employer] Other 12-22-2020 11:45-0400 Body height 154.94 cm Dudley Freeman Other [employer] Other 12-22-2020 11:45-0400 Body mass index (BMI) [Ratio] 28.34 kg/m2 Dudley Freeman Other [employer] Other 12-22-2020 11:45-0400 Body weight 68.04 kg Dudley Freeman Other [employer] Other Encounters Encounter Date Encounter Type [...] Not Available Start: 05-22-2023 End: 05-22-2023 ambulatory [facility] Work Phone: Start: 05-22-2023 End: 05-22-2023 Patient encounter procedure [facility] Work Phone: [...] other preprocedural examination DR RICARDO RODRIGUEZ . [facility] Start: 07-08-2022 End: 07-08-2022 ambulatory [...] abnormal findings DR IRON GARCIA . [facility] Start: 09-26-2021 End: 09-27-2021 ambulatory [...] 01-27-2021 End: 01-27-2021 ambulatory Mohini Martinez Other [employer] Other Start: 01-27-2021 Office outpatient vi sit [...] encounter procedure 05/26/2023 9:50 AM EST Routine [facility] [address] [place] [address] Ricardo Rodriguez, DO [address] [place] [address] [facility] Start: 05-10-2023 End: 05-10-2024 CBC panel - Blood by Automated count CBC Lab Routine Diabetes mellitus screening Expected: 05/10/2023 (Approximate), Expires: 05/10/2024 [facility] Work Phone: Comment on above: Expected: 05/10/2023 (Approximate), Expires: 05/10/2024 Start: 05-10-2023 End: 05-10-2024 Measurement of glucose 1 hour after glucose challenge for glucose tolerance test Glucose tolerance, 1 hour Lab Routine Diabetes mellitus screening Expected: 05/10/2023 (Approximate), Expires: 05/10/2024 [facility] Comment on above: Expected: 05/10/2023 (Approximate), Expires: 05/10/2024 Start: 11-26-2022 Influenza vaccination Influenz a Vaccine (#1) [facility] Immunizations Immunization Date Immunization Notes Care Provider Fa cility 01-25-2022 influenza virus vacc ine, unspecified formulation Ricardo Rodriguez DO Work Phone: [facility] Healthcare Payers Date Payer Category Payer Unknown BCBS BCBS xxxxxx [id number] 2022-Present [phone] [address] [place] [address] [id number] 1993 Unknown [id number] 2.16.840.1.688610.3.579.2.59 1993 Unknown [id number] 2.16.840.1.298738.3.579.2.593 1993 Unknown [id number] 2.16.840.1.926718.3.579.2.59 1993 Unknown [id number] 2.16.840.1.853298.3.579.2.593 1993 Unknown [id number] 2.16.840.1.183583.3.579.2.59 1993 Unknown [id number] 2.16.840.1.413625.3.579.2.59 1993 Unknown [id number] 2.16.840.1.447590.3.579.2.59 1993 Unknown [id number] 2.16.840.1.492597.3.579.2.59 1993 Unknown [id number] 2.16.840.1.143991.3.579.2.59 1993 Unknown [id number] 2.16.840.1.911419.3.579.2.59 1993 Unknown [id number] 2.16.840.1.941345.3.579.2.59 1993 Unknown [id number] 2.16.840.1.975617.3.579.2.59 1993 Unknown [id number] 2.16.840.1.629822.3.579.2.59 1993 Unknown [id number] 2.16.840.1.689656.3.579.2.59 1993 Unknown [id number] 2.16.840.1.035409.3.579.2.59 1993 Unknown [id number] 2.16.840.1.613826.3.579.2.593 1993 Unknown [id number] 2.16.840.1.564945.3.579.2.59 1993 Unknown [id number] 2.16.840.1.242133.3.579.2.593 1993 Unknown [id number] 2.16.840.1.264609.3.579.2.59 1993 Unknown [id number] 2.16.840.1.011550.3.579.2.59 1993 Unknown [id number] 2.16.840.1.522003.3.579.2.59 1993 Unknown [id number] 2.16.840.1.485967.3.579.2.59 1993 Unknown [id number] 2.16.840.1.649068.3.579.2.59 1993 Unknown [id number] 2.16.840.1.381811.3.579.2.59 1993 Unknown [id number] 2.16.840.1.191152.3.579.2.59 1993 Unknown [id number] 2.16.840.1.559966.3.579.2.125 1993 Unknown [id number] 2.16.840.1.911571.3.579.2.1258 1993 Unknown [id number] 2.16.840.1.982965.3.579.2.125 1993 Unknown [id number] 2.16.840.1.600862.3.579.2.1258 1993 Unknown [id number] 2.16.840.1.879720.3.579.2.125 1993 Unknown [id number] 2.16.840.1.877771.3.579.2.1258 1993 Unknown [id number] 2.16.840.1.079426.3.579.2.9 1993 Unknown [id number] 2.16.840.1.839352.3.579.2.1258 1993 Unknown [id number] 2.16.840.1.356470.3.579.2.1258 1993 Unknown [id number] 2.16.840.1.044089.3.579.2.1258 1993 Unknown [id number] 2.16.840.1.793373.3.579.2.1258 1993 Unknown [id number] 2.16.840.1.931773.3.579.2.9 1959 Unknown [id number] 1959 Unknown [id number] Self-pay Self Pay [id number] Unknown [id number] 2.16. 840.1.198399.19 Unknown [facility] [id number] Unknown Osiel BC/OCTAVIO [id number] Social History Date Type Detail Facility Unknown if ever smoked [employer] Other Start: 01-28-2023 Sex Assigned At [employer] Other Start: 01-28-2023 End: 05-22-2023 Tobacco [...] Comment caffeine: occasional [facility] Start: 11-26-2022 [facility] Start: 1995 Sex Assigned At Female [facility] Start: 11-22-2022 Gender identity Identifies as female gender (finding) [facility] Start: 11-22-2022 Sexual orientation Heterosexual (finding) [facility] History of Present illness Narrative 05-10-2023 Melissa Thornton, SOUBRETTE - 05/10/2023 2:50 PM EST Note Date [...] nursing note reviewed. Exam conducted with a director talent present. Vitals: Estimated body mass index is [...] pain. ANESTHESIA: General. SURGEON: Ricardo Rodriguez D.O. PARTY DIRECTOR: DEVIN Miles URINE OUTPUT: Yellow and clear. [...] to Recovery Room in stable condition. [facility] Evaluation note 12-22-2020 Note Date & Type Note Facility 12-22-2020 Evaluation note Encounter Date Diagnosis Assessment Notes Nov, Irritable bowel syndrome with both constipation and diarrhea (ICD-10 - K58.2) LABS INDICATED ABOVE START TRIAL OF DICYCLOMINE 20 BID RTO 4 WEEKS [employer] Other Evaluation note Note Date & Type Note Facility Evaluation note [facility] Other Evaluation note Note Date & Type Note Facility Evaluation note Diagnosis Second trimester state, incidental Diabetes mellitus screening Screening for diabetes mellitus documented in this encounter [facility] Evaluation note Note Date & Type Note Facility Evaluation note No assessment information availa [facility] Work Phone: History general Narrative - Reported Note Date & Type Note Facility History general Narrative - Reported Type Medical History anxiety/depression Medical History IBS Surgical History TONSILLECTOMY [employer] Other History general Narrative - Reported Note Date & Type Note Facility History general Narrative - Reported [employer] Other Summary Purpose Family History No [...] and content) DATE CREATED AUTHOR 07/13/2022 [facility] DATE CREATED AUTHOR AUTHOR'S ORGANIZ ATION 08/13/2023 [facility] [employer] Care Teams (unrecognized sec tion and content) [employer] Relationship Specialty Start Date End Date Iron Garcia MD [address] [place] [id number] PCP - General Family Medicine 11/23/22 Team [...] BE BASED ON THE PRIMARY CLINICAL RECORDS. [employer] [facility]. provides no warranty or guarantee of the accuracy or completeness of information in this document.
== END 2023-08-17 11:27 | disposition home or self-care (01) ==
LOC: US 11:27
PROVIDERS: PCP Family Medicine; Visit Provider Family Medicine
DX: M79.605 Pain in left leg (principal)
CPT/HCPCS: 93971

== ENCOUNTER 2023-09-19 08:30 | Outpatient (OUT) | payer BC, SELFPAY ==
--- OUTSIDE RECORDS SUMMARY | 2023-09-19 08:47 | XMS_ITS | CCD ---
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 Name Role Phone LarsDudley wolf Unavailable Mohini Martinez Unavailable JENNIFER ., DR SILVA Admitting Unavailable JENNIFER ., DR SILVA Attending Unavailable HOY ., DR PERDUE Primary Care Unavailable BLAKESLEE, DR DUDLEY Emanuel Consulting Unavailable JENNIFER ., DR SILVA Consulting Unavailable JAMIL REEVES Admitting Unavailable JAMIL REEVES Attending Unavailable HOY ., DR PERDUE Primary Care Unavailable HOY ., DR PERDUE Consulting Unavailable DUDLEY LANE Consulting Unavailable HOY ., DR PERDUE Admitting Unavailable HOY ., DR PERDUE Attending Unavailable HOY ., DR PERDUE Primary Care Unavailable HOY ., DR PERDUE Consulting Unavailable BLAKESLEE, DR DUDLEY Emanuel Consulting Unavailable JENNIFER ., [...] Unavailable Iron Garcia MD Primary Care Provider [phone] JENNIFER, RICARDO Attending Unavailable JENNIFER, RICARDO Attending Unavailable JENNIFER, RICARDO Attending Unavailable JENNIFER, RICARDO Attending Unavailable JENNIFER, RICARDO Attending Unavailable JENNIFER, RICARDO Attending Unavailable JENNIFER, RICARDO Attending Unavailable JENNIFER, RICARDO Attending Unavailable JENNIFER, RICARDO Attending Unavailable JENNIFER, RICARDO Attending Unavailable JENNIFER, RICARDO Attending Unavailable JENNIFER, RICARDO Attending Unavailable Medications Current Medications Medication Drug Class(es) Dates Sig (Normalized) Sig (Original) [id number] 200 actuat albuterol 0.09 mg/actuat metered dose [...] DAILY NEEDED FOR NAUSEA 0 02/19/2023 Active [id number]-Jmfd Fum-Folic Ac-Om3 (One A Day Women's Dha) 28 mg iron- 800 mcg combo pack (1 source) Start: 05-22-2023 Veeyui02-Cspx Fum-Folic Ac-Om3 (One A Day Women's Dha) [...] RNA SHIRIN+probe Ql (Unsp spec) [facility] Urinalysis macro (dipstick) panel (U)on 05-10-2023 Bilirubin, UA Negative Negative - 4(70) +++ mg/dL [facility] Blood, UA Negative Negative - 50 Jayson/mcL [facility] Clarity, UA Clear [facility] Color, UA Yellow [facility] Glucose, UA Negative Negative - 2000(110) ++++ mg/dL [facility] Interpretation and review of laboratory results Abnormal [facility] Ketones, UA Positive Negative - 160(16) ++++ mg/dL [facility] Comment on above: trace Leukocytes, UA Trace Negative - 500+++ Lolita/mcL [facility] Nitrite, UA Negative Negative - Positive [facility] pH, UA 6.0 5 - 9 [facility] Protein, UA Negative Negative - 2000(20) ++++ mg/dL [facility] Spec Grav, UA 1.030 1 - 1.03 [facility] Urobilinogen, UA 0.2 0.2 - 12 mg/dL [facility] CBC AUTO DIFFon 07-08-2022 BASO # 0.0 103/ul Normal 0.0-0.1 [facility] Comment on above: Performed By: #### R F #### [facility] [address] [place] [address] Dr. Venkat Sloan Basophils/100 WBC (Bld) 0.5 % Normal 0.2-2.0 [facility] Comment on above: Performed By: #### R F #### [facility] [address] [place] [address] Dr. Venkat Sloan EO # 0.1 103/ul Normal 0.0-0.7 [facility] Comment on above: Performed By: #### R F #### [facility] [address] [place] [address] Dr. Venkat Sloan Eosinophils/100 WBC (Bld) 1.7 % Normal 0.9-7.0 [facility] Comment on above: Performed By: #### R F #### [facility] [address] [place] [address] Dr. Venkat Sloan Erythrocyte distribution width (RBC) [Ratio] 12.7 % Normal 11.0-15.0 [facility] Comment on above: Performed By: #### R F #### [facility] [address] [place] [address] Dr. Venkat Sloan Hematocrit (Bld) [Volume fraction] 40.4 % Normal 36.0-48.0 [facility] Comment on above: Performed By: #### R F #### [facility] [address] [place] [address] Dr. Venkat Sloan Hemoglobin (Bld) [Mass/Vol] 13.1 g/dL Normal 12.0-16.0 [facility] Comment on above: Performed By: #### R F #### [facility] [address] [place] [address] Dr. Venkat Sloan IG # 0.02 10e3/ul Normal 0.00-0.03 [facility] Comment on above: Performed By: #### R F #### [facility] [address] [place] [address] Dr. Venkat Sloan IG % 0.3 % Normal 0.0-0.5 [facility] Comment on above: Performed By: #### R F #### [facility] [address] [place] [address] Dr. Venkat Sloan LYMPH # 2.0 103/ul Normal 1.2-3.8 [facility] Comment on above: Performed By: #### R F #### [facility] [address] [place] [address] Dr. Venkat Sloan Lymphocytes/100 WBC (Bld) 26.2 % Normal 20.5-60.0 [facility] Comment on above: Performed By: #### R F #### [facility] [address] [place] [address] Dr. Venkat Sloan MANUAL DIFF REQ NO Normal [facility] Comment on above: Performed By: #### R F #### [facility] [address] [place] [address] Dr. Venkat Sloan MCH (RBC) [Entitic mass] 28.4 pg Normal 26.7-34.0 [facility] Comment on above: Performed By: #### R F #### [facility] [address] [place] [address] Dr. Venkat Sloan MCHC (RBC) [Mass/Vol] 32.4 g/dL Normal 29.9-35.2 [facility] Comment on above: Performed By: #### R F #### [facility] [address] [place] [address] Dr. Venkat Sloan MCV (RBC) [Entitic vol] 87.4 fL Normal 81.0-99.0 [facility] Comment on above: Performed By: #### R F #### [facility] [address] [place] [address] Dr. Venkat Sloan MONO # 0.7 103/ul Normal 0.3-0.8 [facility] Comment on above: Performed By: #### R F #### [facility] [address] [place] [address] Dr. Venkat Sloan Monocytes/100 WBC (Bld) 8.8 % Normal 1.7-12.0 [facility] Comment on above: Performed By: #### R F #### [facility] [address] [place] [address] Dr. Venkat Sloan NEUT # 4.8 103/ul Normal 1.4-6.5 [facility] Comment on above: Performed By: #### R F #### [facility] [address] [place] [address] Dr. Venkat Sloan Neutrophils/100 WBC (Bld) 62.5 % Normal 43.0-75.0 [facility] Comment on above: Performed By: #### R F #### [facility] [address] [place] [address] Dr. Venkat Sloan Platelet mean volume (Bld) [Entitic vol] 8.5 fL Critically low 9.5-13.5 [facility] Comment on above: Performed By: #### R F #### [facility] [address] [place] [address] Dr. Venkat Sloan PLT 331 103/ul Normal 150-450 [facility] Comment on above: Performed By: #### R F #### [facility] [address] [place] [address] Dr. Venkat Sloan RBC 4.62 106/ul Normal 4.20-5.40 [facility] Comment on above: Performed By: #### R F #### [facility] [address] [place] [address] Dr. Venkat Sloan WBC 7.7 103/ul Normal 4.0-11.0 [facility] Comment on above: Performed By: #### R F #### [facility] [address] [place] [address] Dr. Venkat Sloan PREG QUANT HCGon 07-08-2022 HCG QUANT <1 Normal [facility] Comment on above: Performed By: #### P REGQNT #### [facility] [address] [place] [address] Dr. Venkat Sloan HCG RANGE SEE BELOW Normal [facility] Comment on above: Result Comment: 5-50 0.2-1 WEEK 50-500 1-2 WEEKS 100-5,000 2-3 WEEKS 500-10,000 3-4 WEEKS 1,000-50,000 4-5 WEEKS 10,000-100,000 5-6 WEEKS 15,000-200,000 6-8 WEEKS 10,000-100,000 2-3 MONTHS Performed By: #### P REGQNT #### [facility] [address] [place] [address] Dr. Venkat Sloan PROGESTERONEon 06-23-2022 Progesterone 5.7 ng/mL Normal [facility] Comment on above: Result Comment: Foll icular phase 0.1 - 0.9 Luteal phase 1.8 - 23.9 Ovulation phase 0.1 - 12.0 First trimester 11.0 - 44.3 Second trimester 25.4 - 83.3 Third trimester 58.7 - 214.0 Postmenopausal 0.0 - 0.1 Performed By: #### T SH #### [facility] [address] [place] [address] Dr. Venkat Sloan PREG QUANT HCGon 05-31-2022 HCG QUANT 1 mIU/mL Normal [facility] Comment on above: Performed By: #### P REGQNT #### [facility] [address] [place] [address] Dr. Venkat Sloan HCG RANGE SEE BELOW Normal [facility] Comment on above: Result Comment: 5-50 0.2-1 WEEK 50-500 1-2 WEEKS 100-5,000 2-3 WEEKS 500-10,000 3-4 WEEKS 1,000-50,000 4-5 WEEKS 10,000-100,000 5-6 WEEKS 15,000-200,000 6-8 WEEKS 10,000-100,000 2-3 MONTHS Performed By: #### P REGQNT #### [facility] [address] [place] [address] Dr. Venkat Sloan PROGESTERONEon 05-21-2022 Progesterone 12.4 ng/mL Normal [facility] Comment on above: Result Comment: Foll icular phase 0.1 - 0.9 Luteal phase 1.8 - 23.9 Ovulation phase 0.1 - 12.0 First trimester 11.0 - 44.3 Second trimester 25.4 - 83.3 Third trimester 58.7 - 214.0 Postmenopausal 0.0 - 0.1 Performed By: #### I NFLUAB #### [facility] [address] [place] [address] Dr. Venkat Sloan MRI BRAIN WO W [...] R F #### [facility] [address] [address] [address] Venkat Sloan HCG RANGE SEE BELOW Normal [facility] Comment on above: Result Comment: 5-50 0.2-1 WEEK 50-500 1-2 WEEKS 100-5,000 2-3 WEEKS 500-10,000 3-4 WEEKS 1,000-50,000 4-5 WEEKS 10,000-100,000 5-6 WEEKS 15,000-200,000 6-8 WEEKS 10,000-100,000 2-3 MONTHS Performed By: #### R F #### [facility] [address] [address] [address] Venkat Sloan XR HYSTEROSALPINGOGRAMon XR HYSTEROSALPINGOGRAM [...] by: LAM VELA Date: 2022-05-04 16:09 Normal [facility] PROGESTERONEon 04-24-2022 Progesterone 0.4 ng/mL Normal [facility] Comment on above: Result Comment: Foll icular phase 0.1 - 0.9 Luteal phase 1.8 - 23.9 Ovulation phase 0.1 - 12.0 First trimester 11.0 - 44.3 Second trimester 25.4 - 83.3 Third trimester 58.7 - 214.0 Postmenopausal 0.0 - 0.1 Performed By: #### I NFLUAB #### [facility] [address] [place] [address] Dr. Venkat Sloan CULTURE SPUTUMon 04-02-2022 CULTURE SPUTUM Culture Observations : NORMAL RESPIRATORY NATALEE. Normal [facility] Comment on above: Performed By: #### R F #### [facility] [address] [address] [address] Venkat Sloan SPUTUM GRAM STAINon 04-02-19 23 COMMENTS Normal [facility] Comment on above: Performed By: #### R F #### [facility] [address] [address] [address] Venkat Sloan DIPHTHEROIDS Normal [facility] Comment on above: Performed By: #### R F #### [facility] [address] [address] [address] Venkat Sloan EPITHELIALS <25 Normal [facility] Comment on above: Performed By: #### R F #### [facility] [address] [address] [address] Venkat Sloan FUNGAL ELEMENTS Normal [facility] Comment on above: Performed By: #### R F #### [facility] [address] [address] [address] Venkat Sloan GRAM NEG BACILLI RARE Normal [facility] Comment on above: Performed By: #### R F #### [facility] [address] [address] [address] Venkat Sloan GRAM NEG DIPPLOCOCCI Normal [facility] Comment on above: Performed By: #### R F #### [facility] [address] [address] [address] Venkat Sloan GRAM POS BACILLI Normal [facility] Comment on above: Performed By: #### R F #### [facility] [address] [address] [address] Venkat Sloan GRAM POSITIVE COCCI RARE Normal [facility] Comment on above: Performed By: #### R F #### [facility] [address] [place] [address] Dr. Venkat Sloan WBC (Bld) [#/Vol] 10*3/uL Normal [facility] Comment on above: Performed By: #### R F #### [facility] [address] [place] [address] Dr. Venkat Sloan Covid-19 PCR (CVDTB)on SARS-CoV-2 [...] for this test is supported by the Ward[employer] Attendant of Health and Human Service's (HHS's) declaration [...] #### P REGQNT #### [facility] [address] [place] [address] Dr. Vnekat Sloan INFLUENZA A AND B AGon 04-01 [facility] SEE BELOW Normal [facility] Comment on above: Result Comment: Nega tive for Flu A protein angiten. Infection due to Flu A cannot be ruled out. Flu A angiten in the sample may be below the detection limit of the test. Performed By: #### I NFLUAB #### [facility] [address] [place] [address] Dr. Venkat Sloan INFLUBNEG SEE BELOW Normal [facility] Comment on above: Result Comment: Nega tive for Flu B protein antigen. Infection due to Flu B cannot be ruled out. Flu B antigen in the sample may be below the detection limit of the test. Performed By: #### I NFLUAB #### [facility] [address] [place] [address] Dr. Venkat Sloan INFLUENZA A AG Negative Normal NEGATIVE SEE COMMENT [facility] Comment on above: Performed By: #### I NFLUAB #### [facility] [address] [place] [address] Dr. Venkat Sloan INFLUENZA B AG Negative Normal NEGATIVE SEE COMMENT [facility] Comment on above: Performed By: #### I NFLUAB #### [facility] [address] [place] [address] Dr. Venkat Sloan XR CHEST 2 Von [...] 12:33 Normal [facility] SARS-CoV-2 (COVID-19) RNA SHIRIN+probe Ql [...] for this test is supported by the Patriot of Health and Human Service's declaration that [...] #### R F #### [facility] [address] [place] [address] Dr. Venkat Sloan INFLUENZA A AND B [facility] 03-15 [facility] SEE BELOW Normal [facility] Comment on above: Result Comment: Nega tive for Flu A protein angiten. Infection due to Flu A cannot be ruled out. Flu A angiten in the sample may be below the detection limit of the test. Performed By: #### I NFLUAB #### [facility] [address] [place] [address] Dr. Venkat [facility] Normal [facility] Comment on above: Result Comment: Nega tive for Flu B protein antigen. Infection due to Flu B cannot be ruled out. Flu B antigen in the sample may be below the detection limit of the test. Performed By: #### I NFLUAB #### [facility] [address] [place] [address] Dr. Venkat Sloan INFLUENZA A AG Negative Normal NEGATIVE SEE COMMENT [facility] Comment on above: Performed By: #### I NFLUAB #### [facility] [address] [place] [address] Dr. Venkat Sloan INFLUENZA B AG Negative Normal NEGATIVE SEE COMMENT [facility] Comment on above: Performed By: #### I NFLUAB #### [facility] [address] [place] [address] Dr. Venkat Sloan INTERNAL CONTROLS Within Normal Limits Normal Wi thin Normal Limits [facility] Comment on above: Performed By: #### I NFLUAB #### [facility] [address] [place] [address] Dr. Venkat Sloan Covid-19 PCR ([facility])on 02-25 SARS-CoV-2 (COVID-19) RNA SHIRIN+probe [...] for this test is supported by the Patriot of Health and Human Service's declaration that [...] #### I NFLUAB #### [facility] [address] [place] [address] Dr. Venkat Sloan INFLUENZA A AND B AGon 02-25 [facility] SEE BELOW Normal [facility] Comment on above: Result Comment: Nega tive for Flu A protein angiten. Infection due to Flu A cannot be ruled out. Flu A angiten in the sample may be below the detection limit of the test. Performed By: #### I NFLUAB #### [facility] [address] [place] [address] Dr. Venkat Sloan INFLUBNEG SEE BELOW Normal [facility] Comment on above: Result Comment: Nega tive for Flu B protein antigen. Infection due to Flu B cannot be ruled out. Flu B antigen in the sample may be below the detection limit of the test. Performed By: #### I NFLUAB #### [facility] [address] [address] [address] Venkat Sloan INFLUENZA A AG Negative Normal NEGATIVE SEE COMMENT [facility] Comment on above: Performed By: #### I NFLUAB #### [facility] [address] [place] [address] Dr. Venkat Sloan INFLUENZA B AG Negative Normal NEGATIVE SEE COMMENT [facility] Comment on above: Performed By: #### I NFLUAB #### [facility] [address] [place] [address] Dr. Venkat Sloan INTERNAL CONTROLS Within Normal Limits Normal Wi thin Normal Limits [facility] Comment on above: Performed By: #### I NFLUAB #### [facility] [address] [place] [address] Dr. Venkat Sloan PROGESTERONEon 02-20-2022 Progesterone 0.3 ng/mL Normal [facility] Comment on above: Result Comment: Foll icular phase 0.1 - 0.9 Luteal phase 1.8 - 23.9 Ovulation phase 0.1 - 12.0 First trimester 11.0 - 44.3 Second trimester 25.4 - 83.3 Third trimester 58.7 - 214.0 Postmenopausal 0.0 - 0.1 Performed By: #### R F #### [facility] [address] [place] [address] Dr. Venkat Sloan ACTH STIMULATIONon 2 Andros Baseline 49 ng/dL Normal 41-262 [facility] Comment on above: Performed By: #### R F #### [facility] [address] [place] [address] Dr. Venkat Sloan Andros Stimulated 82 ng/dL Normal Not Estab. [facility] Comment on above: Performed By: #### R F #### [facility] [address] [place] [address] Dr. Venkat Sloan [facility] 01-26 SARS-CoV-2 (COVID-19) RNA SHIRIN+probe Ql [...] for this test is supported by the Wardrobe Attendant of Health and Human Service's (HHS's) declaration [...] #### I NFLUAB #### [facility] [address] [place] [address] Dr. Venkat Sloan INFLUENZA A AND B [facility] Normal [facility] Comment on above: Result Comment: Nega tive for Flu A protein angiten. Infection due to Flu A cannot be ruled out. Flu A angiten in the sample may be below the detection limit of the test. Performed By: #### P REGQNT #### [facility] [address] [place] [address] Dr. Venkat Sloan INFLUBNEG SEE BELOW Normal [facility] Comment on above: Result Comment: Nega tive for Flu B protein antigen. Infection due to Flu B cannot be ruled out. Flu B antigen in the sample may be below the detection limit of the test. Performed By: #### P REGQNT #### [facility] [address] [place] [address] Dr. Venkat Sloan INFLUENZA A AG Negative Normal NEGATIVE SEE COMMENT [facility] Comment on above: Performed By: #### P REGQNT #### [facility] [address] [place] [address] Dr. Venkat Sloan INFLUENZA B AG Negative Normal NEGATIVE SEE COMMENT [facility] Comment on above: Performed By: #### P REGQNT #### [facility] [address] [address] [address] Venkat Sloan INTERNAL CONTROLS Within Normal Limits Normal Wi thin Normal Limits [facility] Comment on above: Performed By: #### P REGQNT #### [facility] [address] [address] [address] Venkat Sloan DHEA SERUMon 01-19-2022 Dehydroepiandrosterone (DHEA) 82 ng/dL Normal 70 [facility] Comment on above: Result Comment: Age 1 [...] #### T SH #### [facility] [address] [place] [address] Dr. Venkat Sloan DHEA-SULFATEon 01-14-2022 DHEA-Sulfate 34.0 ug/dL Critically low 84.8-378.0 [facility] Comment on above: Performed By: #### R F #### [facility] [address] [place] [address] Dr. Venkat Sloan FSHon 01-14-2022 FSH 2.2 mIU/mL Normal [facility] Comment on above: Result Comment: Adul t Female: Follicular phase 3.5 - 12.5 Ovulation phase 4.7 - 21.5 Luteal phase 1.7 - 7.7 Postmenopausal 25.8 - 134.8 Performed By: #### L BCFSH #### [facility] [address] [place] [address] Dr. Venkat Sloan LUTEINIZING HORMONE (LH)on LH 5.1 mIU/mL Normal [facility] Comment on above: Result Comment: Adul t Female: Follicular phase 2.4 - 12.6 Ovulation phase 14.0 - 95.6 Luteal phase 1.0 - 11.4 Postmenopausal 7.7 - 58.5 Performed By: #### I NFLUAB #### [facility] [address] [place] [address] Dr. Venkat Sloan PROLACTINon 01-14-2022 Prolactin 8.0 ng/mL Normal 4.8-23.3 [facility] Comment on above: Performed By: #### P ROLAC #### [facility] [address] [place] [address] Dr. Venkat Sloan CBC AUTO DIFFon 01-13-2022 BASO # 0.0 103/ul Normal 0.0-0.1 [facility] Comment on above: Performed By: #### T SH #### [facility] [address] [place] [address] Dr. Venkat Sloan Basophils/100 WBC (Bld) 0.4 % Normal 0.2-2.0 [facility] Comment on above: Performed By: #### T SH #### [facility] [address] [place] [address] Dr. Venkat Sloan EO # 0.1 103/ul Normal 0.0-0.7 [facility] Comment on above: Performed By: #### T SH #### [facility] [address] [place] [address] Dr. Venkat Sloan Eosinophils/100 WBC (Bld) 1.2 % Normal 0.9-7.0 [facility] Comment on above: Performed By: #### T SH #### [facility] [address] [place] [address] Dr. Venkat Sloan Erythrocyte distribution width (RBC) [Ratio] 12.7 % Normal 11.0-15.0 [facility] Comment on above: Performed By: #### T SH #### [facility] [address] [place] [address] Dr. Venkat Sloan Hematocrit (Bld) [Volume fraction] 41.1 % Normal 36.0-48.0 [facility] Comment on above: Performed By: #### T SH #### [facility] [address] [place] [address] Dr. Venkat Sloan Hemoglobin (Bld) [Mass/Vol] 13.1 g/dL Normal 12.0-16.0 [facility] Comment on above: Performed By: #### T SH #### [facility] [address] [place] [address] Dr. Venkat Sloan IG # 0.03 10e3/ul Normal 0.00-0.03 [facility] Comment on above: Performed By: #### T SH #### [facility] [address] [place] [address] Dr. Venkat Sloan IG % 0.3 % Normal 0.0-0.5 [facility] Comment on above: Performed By: #### T SH #### [facility] [address] [place] [address] Dr. Venkat Sloan LYMPH # 1.6 103/ul Normal 1.2-3.8 [facility] Comment on above: Performed By: #### T SH #### [facility] [address] [place] [address] Dr. Venkat Sloan Lymphocytes/100 WBC (Bld) 15.0 % Critically low 20.5-60.0 [facility] Comment on above: Performed By: #### T SH #### [facility] [address] [place] [address] Dr. Venkat Sloan MANUAL DIFF REQ NO Normal [facility] Comment on above: Performed By: #### T SH #### [facility] [address] [place] [address] Dr. Venkat Sloan MCH (RBC) [Entitic mass] 28.5 pg Normal 26.7-34.0 [facility] Comment on above: Performed By: #### T SH #### [facility] [address] [place] [address] Dr. Venkat Sloan MCHC (RBC) [Mass/Vol] 31.9 g/dL Normal 29.9-35.2 [facility] Comment on above: Performed By: #### T SH #### [facility] Laboratory [address] [place] [address] Dr. Venkat Sloan MCV (RBC) [Entitic vol] 89.3 fL Normal 81.0-99.0 [facility] Comment on above: Performed By: #### T SH #### [facility] [address] [address] [address] Venkat Sloan MONO # 0.9 103/ul Critically high 0.3-0.8 [facility] Comment on above: Performed By: #### T SH #### [facility] [address] [address] [address] Venkat Sloan Monocytes/100 WBC (Bld) 8.8 % Normal 1.7-12.0 [facility] Comment on above: Performed By: #### T SH #### [facility] [address] [place] [address] Dr. Venkat Sloan NEUT # 7.9 103/ul Critically high 1.4-6.5 [facility] Comment on above: Performed By: #### T SH #### [facility] [address] [place] [address] Dr. Venkat Sloan Neutrophils/100 WBC (Bld) 74.3 % Normal 43.0-75.0 [facility] Comment on above: Performed By: #### T SH #### [facility] [address] [place] [address] Dr. Venkat Sloan Platelet mean volume (Bld) [Entitic vol] 9.2 fL Critically low 9.5-13.5 [facility] Comment on above: Performed By: #### T SH #### [facility] [address] [place] [address] Dr. Venkat Sloan PLT 300 103/ul Normal 150-450 [facility] Comment on above: Performed By: #### T SH #### [facility] [address] [place] [address] Dr. Venkat Sloan RBC 4.60 106/ul Normal 4.20-5.40 [facility] Comment on above: Performed By: #### T SH #### [facility] [address] [place] [address] Dr. Venkat Sloan WBC 10.7 103/ul Normal 4.0-11.0 [facility] Comment on above: Performed By: #### T SH #### [facility] [address] [place] [address] Dr. Venkat Sloan GLYCOHEMOGLOBIN A1Con 2021 ADA RECOMMENDATION SEE BELOW Normal [facility] Comment on above: Result Comment: ADA RECOMMENDED LIMIT 4.0 - 6.0 ADA THERAPEUTIC TARGET < 7.0 ACTION SUGGESTED > 7.0 Performed By: #### P REGQNT #### [facility] [address] [place] [address] Dr. Venkat Sloan Glucose [Mass/Vol] 100 mg/dL Normal [facility] Comment on above: Performed By: #### P REGQNT #### [facility] [address] [address] [address] Venkat Sloan HbA1c (Bld) [Mass fraction] 5.1 % Normal 4.5-6.2 [facility] Comment on above: Performed By: #### P REGQNT #### [facility] [address] [place] [address] Dr. Venkat Sloan TSHon 01-13-2022 TSH 1.098 uIU/mL Normal 0.358-3.[address] [facility] Comment on above: Performed By: #### T SH #### [facility] [address] [place] [address] Dr. Venkat Sloan [facility]26 SARS-CoV-2 (COVID-19) RNA SHIRIN+probe Ql [...] for this test is supported by the [employer] of Health and Human Service's (HHS's) declaration [...] #### I NFLUAB #### [facility] [address] [place] [address] Dr. Venkat Sloan PREG QUANT HCGon 12-24-2021 HCG QUANT <1 Normal [facility] Comment on above: Performed By: #### P REGQNT #### [facility] [address] [place] [address] Dr. Venkat Sloan HCG RANGE SEE BELOW Normal [facility] Comment on above: Result Comment: 5-50 0.2-1 WEEK 50-500 1-2 WEEKS 100-5,000 2-3 WEEKS 500-10,000 3-4 WEEKS 1,000-50,000 4-5 WEEKS 10,000-100,000 5-6 WEEKS 15,000-200,000 6-8 WEEKS 10,000-100,000 2-3 MONTHS Performed By: #### P REGQNT #### [facility] [address] [place] [address] Dr. Venkat Sloan HCG-BETA SUBUNIT QUANTon hCG,Beta Subunit,Qnt,Serum <1 Normal [facility] Comment on above: Result Comment: Fema le (Non-) 0 - 5 (Postmenopausal) 0 - 8 . Female () Weeks of Gestation 3 6 - 71 4 10 - 750 5 217 - 7138 6 158 - 61675 7 7430 -211483 8 84042 -088951 9 31728 -[phone] 10 79825 -[phone] 12 77778 -207658 14 25050 - 57116 15 03550 - 09653 16 9735 - 98817 17 2225 - 09693 18 5814 - 58178 Aj ECLIA methodology Performed By: #### T SH #### [facility] [address] [place] [address] Dr. Venkat Sloan BRETT by IFAon 09-29-2021 Antinuclear Antibodies, IFA Negative Normal [facility] Comment on above: Result Comment: Nega tive <1:80 Borderline 1:80 Positive >1:80 ICAP nomenclature: AC-0 For more information about Hep-2 cell patterns use ANApatterns.org, the official website for the International Consensus on Antinuclear Antibody (BRETT) Patterns (ICAP). Performed By: #### A NAIFA #### [facility] [address] [place] [address] Dr. Venkat Sloan INSULINon 09-29-2021 Insulin 11.1 uIU/mL Normal 2.6-24.9 [facility] Comment on above: Performed By: #### T SH #### [facility] [address] [place] [address] Dr. Venkat Sloan ANTISTREPTOLYSIN O AB (ASO)o n 09-27-2021 Antistreptolysin O Ab <20.0 Normal 0.0-200.0 [facility] Comment on above: Performed By: #### P REGQNT #### [facility] [address] [place] [address] Dr. Venkat Sloan RHEUMATOID FACTORon 09-28-19 RA Latex Turbid. <10.0 Normal <14.0 [facility] Comment on above: Performed By: #### R F #### [facility] [address] [place] [address] Dr. Venkat Sloan CBC AUTO DIFFon 09-26-2021 BASO # 0.0 103/ul Normal 0.0-0.1 [facility] Comment on above: Performed By: #### T SH #### [facility] [address] [place] [address] Dr. Venkat Sloan Basophils/100 WBC (Bld) 0.3 % Normal 0.2-2.0 [facility] Comment on above: Performed By: #### T SH #### [facility] [address] [place] [address] Dr. Venkat Sloan EO # 0.1 103/ul Normal 0.0-0.7 [facility] Comment on above: Performed By: #### T SH #### [facility] [address] [place] [address] Dr. Venkat Sloan Eosinophils/100 WBC (Bld) 1.8 % Normal 0.9-7.0 [facility] Comment on above: Performed By: #### T SH #### [facility] [address] [place] [address] Dr. Venkat Sloan Erythrocyte distribution width (RBC) [Ratio] 12.9 % Normal 11.0-15.0 [facility] Comment on above: Performed By: #### T SH #### [facility] [address] [place] [address] Dr. Venkat Sloan Hematocrit (Bld) [Volume fraction] 39.8 % Normal 36.0-48.0 [facility] Comment on above: Performed By: #### T SH #### [facility] [address] [place] [address] Dr. Venkat Sloan Hemoglobin (Bld) [Mass/Vol] 12.7 g/dL Normal 12.0-16.0 [facility] Comment on above: Performed By: #### T SH #### [facility] [address] [place] [address] Dr. Venkat Sloan IG # 0.02 10e3/ul Normal 0.00-0.03 [facility] Comment on above: Performed By: #### T SH #### [facility] [address] [place] [address] Dr. Venkat Sloan IG % 0.3 % Normal 0.0-0.5 [facility] Comment on above: Performed By: #### T SH #### [facility] [address] [place] [address] Dr. Venkat Sloan LYMPH # 1.5 103/ul Normal 1.2-3.8 [facility] Comment on above: Performed By: #### T SH #### [facility] [address] [place] [address] Dr. Venkat Sloan Lymphocytes/100 WBC (Bld) 21.5 % Normal 20.5-60.0 [facility] Comment on above: Performed By: #### T SH #### [facility] [address] [place] [address] Dr. Venkat Sloan MANUAL DIFF REQ NO Normal [facility] Comment on above: Performed By: #### T SH #### [facility] [address] [address] [address] Venkat Sloan MCH (RBC) [Entitic mass] 28.5 pg Normal 26.7-34.0 [facility] Comment on above: Performed By: #### T SH #### [facility] [address] [place] [address] Dr. Venkat Sloan MCHC (RBC) [Mass/Vol] 31.9 g/dL Normal 29.9-35.2 [facility] Comment on above: Performed By: #### T SH #### [facility] [address] [place] [address] Dr. Venkat Sloan MCV (RBC) [Entitic vol] 89.2 fL Normal 81.0-99.0 [facility] Comment on above: Performed By: #### T SH #### [facility] [address] [place] [address] Dr. Venkat Sloan MONO # 0.5 103/ul Normal 0.3-0.8 [facility] Comment on above: Performed By: #### T SH #### [facility] [address] [place] [address] Dr. Venkat Sloan Monocytes/100 WBC (Bld) 7.6 % Normal 1.7-12.0 [facility] Comment on above: Performed By: #### T SH #### [facility] [address] [place] [address] Dr. Venkat Sloan NEUT # 4.9 103/ul Normal 1.4-6.5 [facility] Comment on above: Performed By: #### T SH #### [facility] [address] [place] [address] Dr. Venkat Sloan Neutrophils/100 WBC (Bld) 68.5 % Normal 43.0-75.0 [facility] Comment on above: Performed By: #### T SH #### [facility] [address] [place] [address] Dr. Venkat Sloan Platelet mean volume (Bld) [Entitic vol] 8.8 fL Critically low 9.5-13.5 [facility] Comment on above: Performed By: #### T SH #### [facility] [address] [address] [address] Venkat Sloan PLT 297 103/ul Normal 150-450 [facility] Comment on above: Performed By: #### T SH #### [facility] [address] [address] [address] Venkat Sloan RBC 4.46 106/ul Normal 4.20-5.40 [facility] Comment on above: Performed By: #### T SH #### [facility] [address] [address] [address] Venkat Sloan WBC 7.1 103/ul Normal 4.0-11.0 [facility] Comment on above: Performed By: #### T SH #### [facility] [address] [place] [address] Dr. Venkat Sloan CRPon 09-26-2021 CRP [Mass/Vol] mg/L Normal <=1.0 [facility] Comment on above: Performed By: #### P REGQNT #### [facility] [address] [address] [address] Venkat Sloan FREE THYROXINE INDEX T7on FTI 2.71 Normal 1.30-4.50 [facility] Comment on above: Performed By: #### P REGQNT #### [facility] [address] [address] [address] Venkat Sloan T3U 33.0 % Normal 30.0-39.0 [facility] Comment on above: Performed By: #### P REGQNT #### [facility] [address] [address] [address] Venkat Sloan T4 [Mass/Vol] 8.20 ug/dL Normal 4.80-13.90 [facility] Comment on above: Performed By: #### P REGQNT #### [facility] [address] [address] [address] Venkat Sloan GLYCOHEMOGLOBIN A1Con 2021 ADA RECOMMENDATION SEE BELOW Normal [facility] Comment on above: Result Comment: ADA RECOMMENDED LIMIT 4.0 - 6.0 ADA THERAPEUTIC TARGET < 7.0 ACTION SUGGESTED > 7.0 Performed By: #### I NFLUAB #### [facility] [address] [address] [address] Venkat Sloan Glucose [Mass/Vol] 105 mg/dL Normal [facility] Comment on above: Performed By: #### I NFLUAB #### [facility] [address] [address] [address] Venkat Sloan HbA1c (Bld) [Mass fraction] 5.3 % Normal 4.5-6.2 [facility] Comment on above: Performed By: #### I NFLUAB #### [facility] [address] [place] [address] Dr. Venkat Sloan IRONon 09-26-2021 Iron [Mass/Vol] 49.0 ug/dL Critically low 50.0-170.0 [facility] Comment on above: Performed By: #### P REGQNT #### [facility] [address] [place] [address] Dr. Venkat Sloan LIPID PROFILEon 09-26-2021 CHOL-HDL RATIO NORM SEE BELOW Normal [facility] Comment on above: Result Comment: 3.3 - 4.4 LOW RISK 4.4 - 7.1 AVERAGE RISK 7.1 - 11.0 MODERATE RISK >11.0 HIGH RISK Performed By: #### P REGQNT #### [facility] [address] [place] [address] Dr. Venkat Sloan Cholesterol [Mass/Vol] 197 mg/dL Normal <=200 [facility] Comment on above: Performed By: #### P REGQNT #### [facility] [address] [place] [address] Dr. Venkat Sloan Cholesterol in HDL [Mass/Vol] 64 mg/dL Critically high 40-60 [facility] Comment on above: Performed By: #### P REGQNT #### [facility] [address] [address] [address] Venkat Sloan Cholesterol in LDL [Mass/Vol] 123.4 mg/dL Normal [facility] Comment on above: Performed By: #### P REGQNT #### [facility] [address] [address] [address] Venkat Sloan Cholesterol.total/Choles terol in HDL [Mass ratio] 3.1 {ratio} Normal [facility] Comment on above: Performed By: #### P REGQNT #### [facility] [address] [address] [address] Venkat Sloan HDL NORMAL > or = 60 mg/dl - LO W CARDIOVASCULAR RISK <40 mg/dl - HIGH CARDIOVASCULAR RISK Normal [facility] Comment on above: Performed By: #### P REGQNT #### [facility] [address] [place] [address] Dr. Venkat Sloan LDL CALC NORMAL SEE BELOW Normal [facility] Comment on above: Result Comment: <100 mg/dl OPTIMAL 100 - 129 mg/dl NEAR OR ABOVE OPTIMAL 130 - 159 mg/dl BORDERLINE HIGH 160 - 189 mg/dl HIGH >190 mg/dl VERY HIGH Performed By: #### P REGQNT #### [facility] [address] [address] [address] Venkat Sloan Triglyceride [Mass/Vol] 48 mg/dL Normal <=[address] [facility] Comment on above: Performed By: #### P REGQNT #### [facility] [address] [place] [address] Dr. Venkat Sloan VLDL CALC 9.6 mg/dL Normal [facility] Comment on above: Performed By: #### P REGQNT #### [facility] [address] [address] [address] Venkat Sloan PROF 14(COMP METB)on 022 Albumin [Mass/Vol] 4.0 g/dL Normal 3.4-5.0 [facility] Comment on above: Performed By: #### I NFLUAB #### [facility] [address] [place] [address] Dr. Venkat Sloan Albumin/Globulin [Mass ratio] 1.3 {ratio} Normal [facility] Comment on above: Performed By: #### I NFLUAB #### [facility] [address] [address] [address] Venkat Sloan ALP [Catalytic activity/Vol] 58 U/L Normal 46-116 [facility] Comment on above: Performed By: #### I NFLUAB #### [facility] [address] [address] [address] Venkat Sloan ALT [Catalytic activity/Vol] 20 U/L Normal 14-59 [facility] Comment on above: Performed By: #### I NFLUAB #### [facility] [address] [address] [address] Venkat Sloan Anion gap [Moles/Vol] 10.4 mmol/L Normal [facility] Comment on above: Performed By: #### I NFLUAB #### [facility] [address] [place] [address] Dr. Venkat Sloan AST [Catalytic activity/Vol] 11 U/L Critically low 15-37 [facility] Comment on above: Performed By: #### I NFLUAB #### [facility] [address] [address] [address] Venkat Sloan Bilirubin [Mass/Vol] 0.8 mg/dL Normal 0.2-1.0 [facility] Comment on above: Performed By: #### I NFLUAB #### [facility] [address] [address] [address] Venkat Sloan Calcium [Mass/Vol] 9.0 mg/dL Normal 8.5-10.1 [facility] Comment on above: Performed By: #### I NFLUAB #### [facility] [address] [address] [address] Venkat Sloan Chloride [Moles/Vol] 106 mmol/L Normal 98-107 [facility] Comment on above: Performed By: #### I NFLUAB #### [facility] [address] [address] [address] Venkat Sloan CO2 [Moles/Vol] 27.0 mmol/L Normal 21.0-32.0 [facility] Comment on above: Performed By: #### I NFLUAB #### [facility] [address] [address] [address] Venkat Sloan Creatinine [Mass/Vol] 0.70 mg/dL Normal 0.55-1.02 [facility] Comment on above: Performed By: #### I NFLUAB #### [facility] [address] [address] [address] Venkat Sloan EGFR-AF SLOVAK >60 Normal >=60 [facility] Comment on above: Performed By: #### I NFLUAB #### [facility] [address] [address] [address] Venkat Sloan EGFR-NON AF SLOVAK >60 Normal >=60 [facility] Comment on above: Performed By: #### I NFLUAB #### [facility] [address] [place] [address] Dr. Venkat Sloan Globulin (S) [Mass/Vol] 3.2 g/dL Normal [facility] Comment on above: Performed By: #### I NFLUAB #### [facility] [address] [place] [address] Dr. Venkat Sloan Glucose [Mass/Vol] 92 mg/dL Normal 74-106 [facility] Comment on above: Performed By: #### I NFLUAB #### [facility] [address] [place] [address] Dr. Venkat Sloan Potassium [Moles/Vol] 4.4 mmol/L Normal 3.5-5.1 [facility] Comment on above: Performed By: #### I NFLUAB #### [facility] [address] [place] [address] Dr. Venkat Sloan Protein [Mass/Vol] 7.2 g/dL Normal 6.4-8.2 [facility] Comment on above: Performed By: #### I NFLUAB #### [facility] [address] [place] [address] Dr. Venkat Sloan Sodium [Moles/Vol] 139 mmol/L Normal 136-145 [facility] Comment on above: Performed By: #### I NFLUAB #### [facility] [address] [address] [address] Venkat Sloan Urea nitrogen [Mass/Vol] 13.0 mg/dL Normal 7.0-18.0 [facility] Comment on above: Performed By: #### I NFLUAB #### [facility] [address] [address] [address] Vnekat Sloan Urea nitrogen/Creatinine [Mass ratio] 18.6 mg/mg Normal [facility] Comment on above: Performed By: #### I NFLUAB #### [facility] [address] [address] [address] Venkat Sloan TSHon 09-26-2021 TSH 1.318 uIU/mL Normal 0.358-3.740 [facility] Comment on above: Performed By: #### P REGQNT #### [facility] [address] [place] [address] Dr. Venkat Sloan URIC ACID SERUMon 09-26-2021 Urate [Mass/Vol] 3.9 mg/dL Normal 2.6-6.0 [facility] Comment on above: Performed By: #### P REGQNT #### [facility] [address] [place] [address] Dr. Venkat Sloan XR CSPINE MIN 4 [...] DUDLEY HERNÁNDEZ Date: 2021-09-24 21:16 Normal [facility] PREG QUANT HCGon 08-17-2021 HCG QUANT <1 Normal [facility] Comment on above: Performed By: #### I NFLUAB #### [facility] [address] [place] [address] Dr. Venkat Sloan HCG RANGE SEE BELOW Normal [facility] Comment on above: Result Comment: 5-50 0-1 WEEK 40-300 1-2 WEEKS 100-1,000 2-3 WEEKS 500-6,000 3-4 WEEKS 5,000-200,000 1-2 MONTHS 10,000-100,000 2-3 MONTHS 3,000-50,000 2ND TRIMESTER 1,000-50,000 3RD TRIMESTER Performed By: #### I NFLUAB #### [facility] [address] [place] [address] Dr. Venkat Sloan US PELVIS AND TRANSVAGon [...] by: DUDLEY HERNÁNDEZ Date: 2021-08-17 07:01 Normal [facility] COVID Quick Testingon 2020 Result Negative [facility] Other Vital Signs Date Time Vital Sign Value Performing Clinician Facility 05-22-2023 09:0500 Body height 154.94 cm [facility] 05-22-2023 09:0500 Body mass index (BMI) [Ratio] 30.8 kg/m2 [facility] 05-22-2023 09:27-0500 Body temperature 98.1 [degF] [facility] 05-22-2023 09:050 Body weight 74.04 kg [facility] 05-22-2023 09:27-0500 Heart rate 78 /min [facility] 05-22-2023 09:27-0500 Respiratory rate 16 /min [facility] 05-22-2023 09:27-0500 SaO2% (BldA) [Mass fraction] 98 % [facility] 05-10-2023 15:14-0500 Body mass index (BMI) [Ratio] 30.04 kg/m2 Ricardo Jennifer DO Work Phone: [facility] 05-10-2023 15:14-0500 Body weight 72.12 kg Ricardo Jennifer DO Work Phone: [facility] 05-10-2023 15:14-0500 Diastolic blood pressure 70 mm[Hg] Ricardo Jennifer DO Work Phone: [facility] 05-10-2023 15:14-0500 Systolic blood pressure 110 mm[Hg] Ricardo Jennifer [employer] Work Phone: [facility] 01-27-2021 18:45-0400 Body height 154.94 cm Mohini Buttault Other [facility] Other 01-27-2021 18:45-0400 Body mass index (BMI) [Ratio] 28.34 kg/m2 Mohini Juan Other [facility] Other 01-27-2021 18:45-0400 Body temperature 96.4 [degF] Mohini Juan Other [facility] Other 01-27-2021 18:45-0400 Body weight 68.04 kg Mohini Juan Other [facility] Other 01-27-2021 18:45-0400 Respiratory rate 18 /min Mohini Juan Other [facility] Other 01-27-2021 18:45-0400 SaO2% (BldA) [Mass fraction] 99 % Mohini Juan Other [facility] Other 12-22-2020 11:45-0400 Body height 154.94 cm Dudley Sousaluciano Other [facility] Other 12-22-2020 11:45-0400 Body mass index (BMI) [Ratio] 28.34 kg/m2 Dudley Sousaluciano Other [facility] Other 12-22-2020 11:45-0400 Body weight 68.04 kg Dudley Freeman Other [facility] Other Encounters Encounter Date Encounter Type Care [...] Not Available Start: 05-22-2023 End: 05-22-2023 ambulatory [facility] Work Phone: Start: 05-22-2023 End: 05-22-2023 Patient encounter procedure [facility] Work Phone: Start: [...] 01-27-2021 End: 01-27-2021 ambulatory Mohini Martinez Other [facility] Other Start: 01-27-2021 Office outpatient vi sit [...] encounter procedure 05/26/2023 9:50 AM EST Routine [facility] [address] [id number] Ricardo Rodriguez, DO [address] [place] [address] [facility] Start: 05-10-2023 End: 05-10-2024 CBC panel - Blood by Automated count CBC Lab Routine Diabetes mellitus screening Expected: 05/10/2023 (Approximate), Expires: 05/10/2024 [facility] Work Phone: Comment on above: Expected: 05/10/2023 (Approximate), Expires: 05/10/2024 Start: 05-10-2023 End: 05-10-2024 Measurement of glucose 1 hour after glucose challenge for glucose tolerance test Glucose tolerance, 1 hour Lab Routine Diabetes mellitus screening Expected: 05/10/2023 (Approximate), Expires: 05/10/2024 [facility] Comment on above: Expected: 05/10/2023 (Approximate), Expires: 05/10/2024 Start: 11-26-2022 Influenza vaccination Influenz a Vaccine (#1) [facility] Immunizations Immunization Date Immunization Notes Care Provider Fa cili 01-25-2022 influenza virus vacc ine, unspecified formulation Riacrdo Rodriguez DO Work Phone: [facility] Payers Date Payer Category Payer Unknown BCBS BCBS xxxxxx [id number] 2022-Present [phone] [address] [place] [address] [id number] 1993 Unknown [id number] [id number] 1993 Unknown [id number] 2.16.840.1.410803.3.579.2.593 1993 Unknown [id number] 2.16.840.1.185403.3.579.2.593 1993 Unknown [id number] 2.16.840.1.173956.3.579.2.59 1993 Unknown [id number] 2.16.840.1.196754.3.579.2.59 1993 Unknown [id number] 2.16.840.1.684164.3.579.2.59 1993 Unknown [id number] 2.16.840.1.366182.3.579.2.59 1993 Unknown [id number] 2.16.840.1.417052.3.579.2.59 1993 Unknown [id number] 2.16.840.1.975631.3.579.2.59 1993 Unknown [id number] 2.16.840.1.030225.3.579.2.593 1993 Unknown [id number] 2.16.840.1.008448.3.579.2.59 1993 Unknown [id number] 2.16.840.1.809993.3.579.2.59 1993 Unknown [id number] 2.16.840.1.385907.3.579.2.59 1993 Unknown [id number] 2.16.840.1.597707.3.579.2.59 1993 Unknown [id number] 2.16.840.1.846656.3.579.2.593 1993 Unknown [id number] 2.16.840.1.651988.3.579.2.593 1993 Unknown [id number] 2.16.840.1.237817.3.579.2.593 1993 Unknown [id number] 2.16.840.1.461113.3.579.2.593 1993 Unknown [id number] 2.16.840.1.128063.3.579.2.59 1993 Unknown [id number] 2.16.840.1.675625.3.579.2.59 1993 Unknown [id number] 2.16.840.1.497566.3.579.2.59 1993 Unknown [id number] 2.16.840.1.049336.3.579.2.59 1993 Unknown [id number] 2.16.840.1.595566.3.579.2.59 1993 Unknown [id number] 2.16.840.1.950853.3.579.2.59 1993 Unknown [id number] 2.16.840.1.074215.3.579.2.59 1993 Unknown [id number] 2.16.840.1.446768.3.579.2.1258 1993 Unknown [id number] 2.16.840.1.159660.3.579.2.1258 1993 Unknown [id number] 2.16.840.1.997234.3.579.2.1258 1993 Unknown [id number] 2.16.840.1.928288.3.579.2.1258 1993 Unknown [id number] 2.16.840.1.964604.3.579.2.1258 1993 Unknown [id number] 2.16.840.1.120128.3.579.2.125 1993 Unknown [id number] 2.16.840.1.191713.3.579.2.1259 1993 Unknown [id number] 2.16.840.1.902969.3.579.2.9 1993 Unknown [id number] 2.16.840.1.896005.3.579.2.9 1993 Unknown [id number] 2.16.840.1.815845.3.579.2.1258 1993 Unknown [id number] 2.16.840.1.297936.3.579.2.9 1993 Unknown [id number] 2.16.840.1.597410.3.579.2.9 1959 Unknown [id number] 1959 Unknown [id number] Self-pay Self Pay [id number] Unknown [id number] 2.16. 840.1.454660.19 Unknown [facility] [id number] Unknown [facility] BC/BS [id number] Social History Date Type Detail Facility Unknown if ever smoked [facility] Start: 01-28-2023 Sex Assigned At [facility] Start: 01-28-2023 End: 05-22-[address] [facility] Never smoked tobacco [facility] Start: 05-10-2023 [...] Healthcare Start: 1995 Sex Assigned At Female [facility] Start: 11-22-2022 Gender identity Identifies as female gender (finding) [facility] Start: 11-22-2022 Sexual orientation Heterosexual (finding) [facility] History of Present illness Narrative 05-10-2023 Melissa Thornton, ENVIRONMENT COORDINATOR - 05/10/2023 2:50 PM EST Note Date [...] nursing note reviewed. Exam conducted with a chair car attendant present. Vitals: Estimated body mass index is [...] for routine OB appointment. Documented by Melissa Thronton LPN on behalf of: Ricardo Rodriguez DO documented in this encounter [facility] Clinical Note 07-08-2022 Note Date & Type Note Facility 07-08-2022 Note OPERATIVE NOTE OPERATION DATE: 07/08/2022 PROCEDURE: Diagnostic laparoscopy with fulguration of ovarian endometrial implant. PREOPERATIVE DIAGNOSIS: Pelvic pain. POSTOPERATIVE DIAGNOSIS: Pelvic pain. ANESTHESIA: General. SURGEON: Ricardo Rodriguez D.O. DRY PRIMER POWDER BLENDER: DEVIN Miles URINE OUTPUT: Yellow and clear. [...] OF DICYCLOMINE 20 BID RTO 4 WEEKS [facility] Other Evaluation note Note Date & Type Note Facility Evaluation note [facility] Other Evaluation note Note Date & Type Note Facility Evaluation note Diagnosis Second trimester state, incidental Diabetes mellitus screening Screening for diabetes mellitus documented in this encounter [facility] Evaluation note Note Date & Type Note Facility Evaluation note No assessment information availa [facility] Work Phone: History general Narrative - Reported Note Date & Type Note Facility History general Narrative - Reported Type Medical History anxiety/depression Medical History IBS Surgical History TONSILLECTOMY [facility] Other History general Narrative - Reported Note Date & Type Note Facility History general Narrative - Reported [facility] Other Summary Purpose Family History No Family [...] DATE CREATED AUTHOR AUTHOR'S ORGANIZ ATION 08/13/2023 [facility] Care Teams (unrecognized sec tion and content) Glazing Machine Operator Relationship Specialty Start Date End Date Iron Garcia MD [address] [place] [address] PCP - General Family Medicine 11/23/22 Team [...] BE BASED ON THE PRIMARY CLINICAL RECORDS. [employer] provides no warranty or guarantee of the accuracy or completeness of information in this document.
--- NOTE | 2023-09-19 11:42 | PC.NURSE ---
Kasandra and 5 week old Mariangel arrive for support. Kasandra is an experienced BF mother. She nursed first child 3+ years and has hopes of doing the same for Mariangel. The baby has suspected tongue tie and upper lip tie that mom preferred to wait for evaluation and that maybe she will be different than Golden . 5 weeks in and now mom voices concern that latch is off on right side, as well as clicking. Mom reports baby is frequently fussy, gassy and has hiccups multiple times daily. weight obtained and diapered. Baby to left side, attempts latching multiple efforts for shallow latch. Guided to unlatch and re latch baby with slightly different positioning. Baby does latch and immediately begins sucking and swallowing. noted to break suction and click frequently. Repositioning does not improve feeding. Evaluated mouth and upper lip and encouraged Kasandra to have baby evaluated per pediatric dentist. Verbalized understanding. Discussed use of SHIP RIGGER and behavioral health care manager to aid in resolution of feeding difficulties as needed. Kasandra open to options and will start with evaluation of lip and tongue. No further concerns voiced. Home and will call as needed post evaluation.
== END 2023-09-19 12:02 | disposition home or self-care (01) ==
LOC: FBCO 08:31
PROVIDERS: PCP Family Medicine; Visit Provider Obstetrics & Gynecology
DX: Z39.1 Encounter for care and examination of lactating mother (principal)

== ENCOUNTER 2023-10-17 13:51 | Outpatient (RCR) | payer BC, SELFPAY ==
[2023-10-17 13:50] VITALS: BP 132/74; PULSE 80; TEMP 36.5; O2SAT 96
[2023-10-17] MEDS: 0.9 % SODIUM CHLORIDE 1,000 ML 1000 ML IV (14:03)
--- NOTE | 2023-10-17 14:46 | PC.NURSE ---
1350: Pt. to [facility] amb. for IV hydration. Seated in recliner. VSS. IV initiated, see documentation. Given bottled water. Denies further needs.
--- NOTE | 2023-10-17 14:48 | PC.NURSE ---
1430: Pt. awake and alert without c/o nausea or discomfort. IV site clear. Denies needs.
== END 2023-10-26 23:59 | disposition home or self-care (01) ==
LOC: INF 13:51
PROVIDERS: PCP Family Medicine; Visit Provider Family Medicine
DX: E86.0 Dehydration (principal); R11.2 Nausea with vomiting, unspecified
CPT/HCPCS: 96360

== ENCOUNTER 2024-03-27 14:04 | Outpatient (OUT) | payer BC, SELFPAY ==
--- NOTE | 2024-03-27 | US_ITS ---
[address] [address] Patient Name: ESTER BRADFORD MRN: [facility]:[id number] date: 1995 Sex: F Assigned Patient Location: Current Patient Location: Accession/Order Number: [id number] Exam Date: 03/27/2024 14:05 Report Date: 03/28/2024 03:32 At the request of: RICARDO LEGGETT Procedure: US pelvis w/ transvaginal EXAMINATION: US pelvis w/ transvaginal HISTORY: Heavy vaginal bleeding COMPARISON: No relevant comparison available. TECHNIQUE: Transabdominal and/or transvaginal sonographic examination was performed as indicated by examination type. FINDINGS: UTERUS: Normal size and appearance. Uterus size: 6.7 x 4.6 x 4.0 cm. ENDOMETRIUM: Normal homogeneous appearance. Endometrial thickness: 2 mm RIGHT OVARY: Normal size and appearance. Duplex Doppler demonstrates normal waveform and flow; resistive index 0.7. Ovary size: 3.0 x 2.1 x 1.5 cm LEFT OVARY: Normal size and appearance. Duplex Doppler demonstrates normal waveform and flow; resistive index 0.6. Ovary size: 3.0 x 1.3 x 1.7 cm CUL-DE-SAC: Unremarkable. No significant free fluid. BLADDER: Unremarkable. OTHER: None. US/US pelvis w/ transvaginal IMPRESSION: 1. No abnormal or suspicious findings to account for patient's symptoms. Electronically authenticated by: JUDITH MACHUCA Date: 03/28/2024 03:32
--- OUTSIDE RECORDS SUMMARY | 2024-03-27 14:08 | XMS_ITS | CCD ---
Author Organization [facility] CliniSyor Care Team Providers Care Cinema Operator Name Role Phone LydiaDudley Unavailable Mohini Martinez Unavailable JENNIFER ., DR SILVA Admitting Unavailable JENNIFER ., DR SILVA Attending Unavailable HOY ., DR PERDUE Primary Care Unavailable [place], DR DUDLEY Emanuel Consulting Unavailable JENNIFER ., DR SILVA Consulting Unavailable LEANDRO, JAMIL Admitting Unavailable JAMIL REEVES Attending Unavailable HOY ., DR PERDUE Primary Care Unavailable HOY ., DR PERDUE Consulting Unavailable DUDLEY LANE Consulting Unavailable HOY ., DR PERDUE Admitting Unavailable HOY ., DR PERDUE Attending Unavailable HOY ., DR PERDUE Primary Care Unavailable HOY ., DR PERDUE Consulting Unavailable [place], DR DUDLEY Emanuel Consulting Unavailable JENNIFER ., [...] Unavailable Iron Garcia MD Primary Care Provider [phone] JENNIFER, RICARDO Attending Unavailable JENNIFER, RICARDO Attending Unavailable JENNIFER, RICARDO Attending Unavailable JENNIFER, RICARDO Attending Unavailable JENNIFER, RICARDO Attending Unavailable JENNIFER, RICARDO Attending Unavailable JENNIFER, RICARDO Attending Unavailable JENNIFER, RICARDO Attending Unavailable JENNIFER, RICARDO Attending Unavailable JENNIFER, RICARDO Attending Unavailable JENNIFER, RICARDO Attending Unavailable JENNIFER, RICARDO Attending Unavailable JENNIFER, RICARDO Attending Unavailable Medications Current Medications Medication Drug Class(es) Dates Sig (Normalized) Sig (Original) [id number] 200 actuat albuterol 0.09 mg/actuat metered dose [...] morning. 30 capsule 11 02/22/2023 02/22/2024 Active medroxyPROGESTERone acetate 10 mg oral tablet (2 sources) Progestin Start: 03-01-2024 End: 03-15-2024 take 1 tablet by mouth once daily medroxyPROGESTERone (Provera) 10 MG tablet Indications: Abnormal vaginal bleeding Take 1 tablet (10 mg) by mouth Daily for 14 days 14 tablet 03/01/2024 03/15/2024 Active osmotic 24 hr metFORMIN hydrochloride 500 [...] DAILY NEEDED FOR NAUSEA 0 02/19/2023 Active [id number]-Tvvg Fum-Folic Ac-Om3 (One A Day Women's Dha) 28 mg iron- 800 mcg combo pack (1 source) Start: 05-22-2023 Qjsgcc80-Pyrw Fum-Folic Ac-Om3 (One A Day Women's Dha) [...] sources) Serotonin-1b and Serotonin-1d Receptor Agonist SUMAtriptan (Imitrex ) 100 MG tablet TAKE 1 TABLET AT [...] [Irregular menstruation, unspecified] Onset: 11-21-2021 Chronic Other endocrine disorders (3 sources) Hypoglycemia; Translations: [Hypoglycemia, unspecified] Onset: 05-26-2023 05-26-2023 Chronic Other endocrine disorders (2 sources) Polycystic ovary syndrome; Translations: [Polycystic ovarian syndrome] 03-01-2024 Chronic Other female genital disorders (2 sources) Abnormal vaginal bleeding; Translations: [Abnormal uterine and vaginal bleeding, unspecified] 03-01-2024 Chronic Other female genital disorders (4 sources) [...] Translations: [Abnormal weight loss] 03-09-2023 Episodic Other screening for suspected conditions (not [...] Translations: [ACUTE BRONCHITIS UNSPECIFIED] Onset: 04-02-2022 Episodic Deficiency and other anemia (3 sources) Anemia; Translations: [Anemia, unspecified] Onset: 05-26-2023 05-26-2023 Episodic Immunizations and screening for infectious disease [...] [ABDOMINAL DISTENSION GASEOUS] Onset: 01-13-2022 Episodic Other and delivery including normal (5 sources) Second trimester ; Translations: [Encounter for supervision of normal , unspecified, second trimester] Onset: 06-13-2023 05-02-2023 Episodic Other upper respiratory infections (4 sources) Acute pharyngitis, unspecified; Translations: [ACUTE PHARYNGITIS UNSPECIFIED] Onset: 01-12-2022 Episodic Polyhydramnios and other problems of amniotic cavity (3 sources) Abnormal amniotic fluid; Translations: [Polyhydramnios, unspecified trimester, not applicable or unspecified] Onset: 05-26-2023 06-13-2023 Episodic Residual codes; unclassified (3 sources) Gestation period, 32 weeks; Translations: [32 weeks gestation of ] Onset: 06-30-2023 06-30-2023 Episodic Unclassified (1 source) CONTACT W/AND (SUSP) EXPOS COVID-19; Translations: [CONTACT W/AND (SUSP) EXPOS COVID-19] Onset: 04-01-2022 Results Test Name Value Interpretation Reference Range Facility Laboratory - Microbiology an d Antimicrobial susceptibilityOrdered By: Teresa Wilkins on 05-22-2023 SARS-CoV-2 (COVID-19) RNA SHIRIN+probe Ql (Unsp spec) [facility] Urinalysis macro (dipstick) panel (U)on 05-10-2023 Bilirubin, UA Negative Negative - 4(70) +++ mg/dL [facility] Blood, UA Negative Negative - 50 Jayson/mcL [facility] Clarity, UA Clear [facility] Color, UA Yellow [facility] Glucose, UA Negative Negative - 2000(110) ++++ mg/dL [facility] Interpretation and review of laboratory results Abnormal [facility] Ketones, UA Positive Negative - 160(16) ++++ mg/dL [facility] Comment on above: trace Leukocytes, UA Trace Negative - 500+++ Lolita/mcL [facility] Nitrite, UA Negative Negative - Positive [facility] pH, UA 6.0 5 - 9 [facility] Protein, UA Negative Negative - 2000(20) ++++ mg/dL [facility] Spec Grav, UA 1.030 1 - 1.03 [facility] Urobilinogen, UA 0.2 0.2 - 12 mg/dL [facility] CBC AUTO DIFFon 07-08-2022 BASO # 0.0 103/ul Normal 0.0-0.1 [facility] Comment on above: Performed By: #### R F #### [facility] [address] [place] [address] Dr. Venkat Sloan Basophils/100 WBC (Bld) 0.5 % Normal 0.2-2.0 [facility] Comment on above: Performed By: #### R F #### [facility] [address] [place] [address] Dr. Venkat Sloan EO # 0.1 103/ul Normal 0.0-0.7 [facility] Comment on above: Performed By: #### R F #### [facility] [address] [address] [address] Venkat Sloan Eosinophils/100 WBC (Bld) 1.7 % Normal 0.9-7.0 [facility] Comment on above: Performed By: #### R F #### [facility] [address] [place] [address] Dr. Venkat Sloan Erythrocyte distribution width (RBC) [Ratio] 12.7 % Normal 11.0-15.0 [facility] Comment on above: Performed By: #### R F #### [facility] [address] [place] [address] Dr. Venkat Sloan Hematocrit (Bld) [Volume fraction] 40.4 % Normal 36.0-48.0 [facility] Comment on above: Performed By: #### R F #### [facility] [address] [place] [address] Dr. Venkat Sloan Hemoglobin (Bld) [Mass/Vol] 13.1 g/dL Normal 12.0-16.[address] [facility] Comment on above: Performed By: #### R F #### [facility] [address] [place] [address] Dr. Venkat Sloan IG # 0.02 10e3/ul Normal 0.00-0.03 [facility] Comment on above: Performed By: #### R F #### [facility] [address] [place] [address] Dr. Venkat Sloan IG % 0.3 % Normal 0.0-0.5 [facility] Comment on above: Performed By: #### R F #### [facility] [address] [place] [address] Dr. Venkat Sloan LYMPH # 2.0 103/ul Normal 1.2-3.[address] [facility] Comment on above: Performed By: #### R F #### [facility] [address] [place] [address] Dr. Venkat Sloan Lymphocytes/100 WBC (Bld) 26.2 % Normal 20.5-60.[address] [facility] Comment on above: Performed By: #### R F #### [facility] [address] [place] [address] Dr. Venkat Sloan MANUAL DIFF REQ NO Normal [facility] Comment on above: Performed By: #### R F #### [facility] [address] [place] [address] Dr. Venkat Sloan MCH (RBC) [Entitic mass] 28.4 pg Normal 26.7-34.0 [facility] Comment on above: Performed By: #### R F #### [facility] [address] [place] [address] Dr. Venkat Sloan MCHC (RBC) [Mass/Vol] 32.4 g/dL Normal 29.9-35.2 [facility] Comment on above: Performed By: #### R F #### [facility] [address] [place] [address] Dr. Venkat Sloan MCV (RBC) [Entitic vol] 87.4 fL Normal 81.0-99.0 [facility] Comment on above: Performed By: #### R F #### [facility] [address] [place] [address] Dr. Venkat Sloan MONO # 0.7 103/ul Normal 0.3-0.8 [facility] Comment on above: Performed By: #### R F #### [facility] [address] [place] [address] Dr. Venkat Sloan Monocytes/100 WBC (Bld) 8.8 % Normal 1.7-12.0 [facility] Comment on above: Performed By: #### R F #### [facility] [address] [place] [address] Dr. Venkat Sloan NEUT # 4.8 103/ul Normal 1.4-6.5 [facility] Comment on above: Performed By: #### R F #### [facility] [address] [place] [address] Dr. Venkat Sloan Neutrophils/100 WBC (Bld) 62.5 % Normal 43.0-75.0 [facility] Comment on above: Performed By: #### R F #### [facility] [address] [place] [address] Dr. Venkat Sloan Platelet mean volume (Bld) [Entitic vol] 8.5 fL Critically low 9.5-13.5 [facility] Comment on above: Performed By: #### R F #### [facility] [address] [place] [address] Dr. Venkat Sloan PLT 331 103/ul Normal 150-[address] [facility] Comment on above: Performed By: #### R F #### [facility] [address] [place] [address] Dr. Venkat Sloan RBC 4.62 106/ul Normal 4.20-5.40 [facility] Comment on above: Performed By: #### R F #### [facility] [address] [place] [address] Dr. Venkat Sloan WBC 7.7 103/ul Normal 4.0-11.0 [facility] Comment on above: Performed By: #### R F #### [facility] [address] [place] [address] Dr. Venkat Sloan PREG QUANT HCGon 07-08-2022 HCG QUANT <1 Normal [facility] Comment on above: Performed By: #### P REGQNT #### [facility] [address] [place] [address] Dr. Venkat Sloan HCG RANGE SEE BELOW Normal [facility] Comment on above: Result Comment: 5-50 0.2-1 WEEK 50-500 1-2 WEEKS 100-5,000 2-3 WEEKS 500-10,000 3-4 WEEKS 1,000-50,000 4-5 WEEKS 10,000-100,000 5-6 WEEKS 15,000-200,000 6-8 WEEKS 10,000-100,000 2-3 MONTHS Performed By: #### P REGQNT #### [facility] [address] [place] [address] Dr. Venkat Sloan PROGESTERONEon 06-23-2022 Progesterone 5.7 ng/mL Normal [facility] Comment on above: Result Comment: Foll icular phase 0.1 - 0.9 Luteal phase 1.8 - 23.9 Ovulation phase 0.1 - 12.0 First trimester 11.0 - 44.3 Second trimester 25.4 - 83.3 Third trimester 58.7 - 214.0 Postmenopausal 0.0 - 0.1 Performed By: #### T SH #### [facility] [address] [place] [address] Dr. Venkat Sloan PREG QUANT HCGon 05-31-2022 HCG QUANT 1 mIU/mL Normal [facility] Comment on above: Performed By: #### P REGQNT #### [facility] [address] [place] [address] Dr. Venkat Sloan HCG RANGE SEE BELOW Normal [facility] Comment on above: Result Comment: 5-50 0.2-1 WEEK 50-500 1-2 WEEKS 100-5,000 2-3 WEEKS 500-10,000 3-4 WEEKS 1,000-50,000 4-5 WEEKS 10,000-100,000 5-6 WEEKS 15,000-200,000 6-8 WEEKS 10,000-100,000 2-3 MONTHS Performed By: #### P REGQNT #### [facility] [address] [place] [address] Dr. Venkat Sloan PROGESTERONEon 05-21-2022 Progesterone 12.4 ng/mL Normal [facility] Comment on above: Result Comment: Foll icular phase 0.1 - 0.9 Luteal phase 1.8 - 23.9 Ovulation phase 0.1 - 12.0 First trimester 11.0 - 44.3 Second trimester 25.4 - 83.3 Third trimester 58.7 - 214.0 Postmenopausal 0.0 - 0.1 Performed By: #### I NFLUAB #### [facility] [address] [place] [address] Dr. Venkat Sloan MRI BRAIN WO W [...] by: LAM VELA Date: 2022-05-04 08:42 Normal [facility] PREG QUANT HCGon 05-04-2022 HCG QUANT <1 Normal [facility] Comment on above: Performed By: #### R F #### [facility] [address] [address] [address] Venkat Sloan HCG RANGE SEE BELOW Normal [facility] Comment on above: Result Comment: 5-50 0.2-1 WEEK 50-500 1-2 WEEKS 100-5,000 2-3 WEEKS 500-10,000 3-4 WEEKS 1,000-50,000 4-5 WEEKS 10,000-100,000 5-6 WEEKS 15,000-200,000 6-8 WEEKS 10,000-100,000 2-3 MONTHS Performed By: #### R F #### [facility] [address] [address] [address] Venkat Sloan XR HYSTEROSALPINGOGRAMon XR HYSTEROSALPINGOGRAM [...] LAM VELA Date: 2022-05-04 16:09 Normal [facility] PROGESTERONEon 04-24-2022 Progesterone 0.4 ng/mL Normal [facility] Comment on above: Result Comment: Foll icular phase 0.1 - 0.9 Luteal phase 1.8 - 23.9 Ovulation phase 0.1 - 12.0 First trimester 11.0 - 44.3 Second trimester 25.4 - 83.3 Third trimester 58.7 - 214.0 Postmenopausal 0.0 - 0.1 Performed By: #### I NFLUAB #### [facility] [address] [address] [address] Venkat Sloan CULTURE SPUTUMon 04-02-2022 CULTURE SPUTUM Culture Observations : NORMAL RESPIRATORY NATALEE. Normal [facility] Comment on above: Performed By: #### R F #### [facility] [address] [place] [address] Dr. Venkat Sloan SPUTUM GRAM STAINon 04-02-19 23 COMMENTS Normal [facility] Comment on above: Performed By: #### R F #### [facility] [address] [place] [address] Dr. Venkat Sloan DIPHTHEROIDS [facility] Comment on above: Performed By: #### R F #### [facility] [address] [place] [address] Dr. Venkat Sloan EPITHELIALS <25 [facility] Comment on above: Performed By: #### R F #### [facility] [address] [place] [address] Dr. Venkat Sloan FUNGAL ELEMENTS Normal [facility] Comment on above: Performed By: #### R F #### [facility] [address] [place] [address] Dr. Venkat MORGAN NEG BACILLI RARE Normal [facility] Comment on above: Performed By: #### R F #### [facility] [address] [place] [address] Dr. Venkat Sloan GRAM NEG DIPPLOCOCCI [facility] Comment on above: Performed By: #### R F #### [facility] [address] [place] [address] Dr. Venkat Sloan GRAM POS BACILLI Normal [facility] Comment on above: Performed By: #### R F #### [facility] [address] [place] [address] Dr. Venkat Sloan GRAM POSITIVE COCCI RARE Normal [facility] Comment on above: Performed By: #### R F #### [facility] [address] [place] [address] Dr. Venkat Sloan WBC (Bld) [#/Vol] 10*3/uL Normal [facility] Comment on above: Performed By: #### R F #### [facility] [address] [place] [address] Dr. Venkat Sloan Covid-19 PCR ([facility])on SARS-CoV-2 (COVID-19) RNA SHIRIN+probe Ql (Unsp spec) Not detected Normal NOT DETECTED [facility] Comment on above: Result Comment: This test is not yet approved or cleared by the [place] FDA. When there are no FDA-approved or cleared tests available, and other criteria are met, FDA can make tests available under an emergency access mechanism called an Emergency Use Authorization (EUA). The EUA for this test is supported by the [place] of Health and Human Service's (HHS's) declaration [...] By: #### P REGQNT #### [facility] [address] [place] [address] Dr. Venkat Sloan INFLUENZA A AND B AGon 04-01 INFLUANEGH SEE BELOW Normal [facility] Comment on above: Result Comment: Nega tive for Flu A protein angiten. Infection due to Flu A cannot be ruled out. Flu A angiten in the sample may be below the detection limit of the test. Performed By: #### I NFLUAB #### [facility] [address] [place] [address] Dr. Venkat Sloan INFLUBNEGH SEE BELOW Normal [facility] Comment on above: Result Comment: Nega tive for Flu B protein antigen. Infection due to Flu B cannot be ruled out. Flu B antigen in the sample may be below the detection limit of the test. Performed By: #### I NFLUAB #### [facility] [address] [address] [address] Venkat Sloan INFLUENZA A AG Negative Normal NEGATIVE SEE COMMENT [facility] Comment on above: Performed By: #### I NFLUAB #### [facility] [address] [address] [address] Venkat Sloan INFLUENZA B AG Negative Normal NEGATIVE SEE COMMENT [facility] Comment on above: Performed By: #### I NFLUAB #### [facility] [address] [address] [address] Venkat Sloan XR CHEST 2 Von [...] Date: 2022-03-24 12:33 Normal [facility] Covid-19 PCR ([facility])on 02-25 SARS-CoV-2 (COVID-19) RNA SHIRIN+probe Ql (Unsp spec) Not detected Normal NOT DETECTED [facility] Comment on above: Result Comment: [...] for this test is supported by the [place] of Health and Human Service's declaration that [...] By: #### R F #### [facility] [address] [place] [address] Dr. Venkat Sloan INFLUENZA A AND B AGon 03-15 [facility] SEE BELOW Normal [facility] Comment on above: Result Comment: Nega tive for Flu A protein angiten. Infection due to Flu A cannot be ruled out. Flu A angiten in the sample may be below the detection limit of the test. Performed By: #### I NFLUAB #### [facility] [address] [place] [address] Dr. Venkat Sloan INFLUBNEGH SEE BELOW Normal [facility] Comment on above: Result Comment: Nega tive for Flu B protein antigen. Infection due to Flu B cannot be ruled out. Flu B antigen in the sample may be below the detection limit of the test. Performed By: #### I NFLUAB #### [facility] [address] [place] [address] Dr. Venkat Sloan INFLUENZA A AG Negative Normal NEGATIVE SEE COMMENT [facility] Comment on above: Performed By: #### I NFLUAB #### [facility] [address] [place] [address] Dr. Venkat Sloan INFLUENZA B AG Negative Normal NEGATIVE SEE COMMENT [facility] Comment on above: Performed By: #### I NFLUAB #### [facility] [address] [place] [address] Dr. Venkat Sloan INTERNAL CONTROLS Within Normal Limits Normal Wi thin Normal Limits [facility] Comment on above: Performed By: #### I NFLUAB #### [facility] [address] [place] [address] Dr. Venkat Sloan [facility] SARS-CoV-2 (COVID-19) RNA SHIRIN+probe Ql (Unsp spec) Not detected Normal NOT DETECTED [facility] Comment on above: Result Comment: [...] for this test is supported by the [employer] Support Tech of Health and Human Service's declaration that [...] By: #### I NFLUAB #### [facility] [address] [place] [address] Dr. Venkat Sloan INFLUENZA A AND B [facility] 03-12 [facility] SEE BELOW Normal [facility] Comment on above: Result Comment: Nega tive for Flu A protein angiten. Infection due to Flu A cannot be ruled out. Flu A angiten in the sample may be below the detection limit of the test. Performed By: #### I NFLUAB #### [facility] [address] [place] [address] Dr. Venkat [facility] Normal [facility] Comment on above: Result Comment: Nega tive for Flu B protein antigen. Infection due to Flu B cannot be ruled out. Flu B antigen in the sample may be below the detection limit of the test. Performed By: #### I NFLUAB #### [facility] [address] [place] [address] Dr. Venkat Sloan INFLUENZA A AG Negative Normal NEGATIVE SEE COMMENT [facility] Comment on above: Performed By: #### I NFLUAB #### [facility] [address] [place] [address] Dr. Venkat Sloan INFLUENZA B AG Negative Normal NEGATIVE SEE COMMENT [facility] Comment on above: Performed By: #### I NFLUAB #### [facility] [address] [place] [address] Dr. Venkat Sloan INTERNAL CONTROLS Within Normal Limits Normal Wi thin Normal Limits [facility] Comment on above: Performed By: #### I NFLUAB #### [facility] [address] [place], [place] [address] Dr. Venkat Sloan PROGESTERONEon 02-20-2022 Progesterone 0.3 ng/mL Normal [facility] Comment on above: Result Comment: Foll icular phase 0.1 - 0.9 Luteal phase 1.8 - 23.9 Ovulation phase 0.1 - 12.0 First trimester 11.0 - 44.3 Second trimester 25.4 - 83.3 Third trimester 58.7 - 214.0 Postmenopausal 0.0 - 0.1 Performed By: #### R F #### [facility] [address] [place], [place] [address] Dr. Venkat Sloan ACTH STIMULATIONon 2 Andros Baseline 49 ng/dL Normal 41-262 [facility] Comment on above: Performed By: #### R F #### [facility] [address] [address] [address] Venkat Sloan Andros Stimulated 82 ng/dL Normal Not Estab. [facility] Comment on above: Performed By: #### R F #### [facility] [address] [place], [place] [address] Dr. Venkat Sloan Covid-19 PCR (CVDTB)on 01-26 SARS-CoV-2 (COVID-19) RNA SHIRIN+probe Ql (Unsp spec) Not detected Normal NOT DETECTED [facility] Comment on above: Result Comment: This test is not yet approved or cleared by the [place] FDA. When there are no FDA-approved or cleared tests available, and other criteria are met, FDA can make tests available under an emergency access mechanism called an Emergency Use Authorization (EUA). The EUA for this test is supported by the [place] of Health and Human Service's (HHS's) declaration [...] By: #### I NFLUAB #### [facility] [address] [place] [address] Dr. Venkat Sloan INFLUENZA A AND B [facility]on 02[facility] Normal [facility] Comment on above: Result Comment: Nega tive for Flu A protein angiten. Infection due to Flu A cannot be ruled out. Flu A angiten in the sample may be below the detection limit of the test. Performed By: #### P REGQNT #### [facility] [address] [place] [address] Dr. Venkat Sloan INFLUBNEG SEE BELOW Normal [facility] Comment on above: Result Comment: Nega tive for Flu B protein antigen. Infection due to Flu B cannot be ruled out. Flu B antigen in the sample may be below the detection limit of the test. Performed By: #### P REGQNT #### [facility] [address] [place] [address] Dr. Venkat Sloan INFLUENZA A AG Negative Normal NEGATIVE SEE COMMENT [facility] Comment on above: Performed By: #### P REGQNT #### [facility] [address] [place] [address] Dr. Venkat Sloan INFLUENZA B AG Negative Normal NEGATIVE SEE COMMENT [facility] Comment on above: Performed By: #### P REGQNT #### [facility] [address] [place] [address] Dr. Venkat Sloan INTERNAL CONTROLS Within Normal Limits Normal Wi thin Normal Limits [facility] Comment on above: Performed By: #### P REGQNT #### [facility] [address] [place] [address] Dr. Venkat Sloan DHEA SERUMon 01-19-2022 Dehydroepiandrosterone (DHEA) 82 ng/dL Normal 31-[address] [facility] Comment on above: Result Comment: [...] By: #### T SH #### [facility] [address] [place] [address] Dr. Venkat Sloan DHEA-SULFATEon 01-14-2022 DHEA-Sulfate 34.0 ug/dL Critically low 84.8-378.0 [facility] Comment on above: Performed By: #### R F #### [facility] [address] [place] [address] Dr. Venkat Sloan FSHon 01-14-2022 FSH 2.2 mIU/mL Normal [facility] Comment on above: Result Comment: Adul t Female: Follicular phase 3.5 - 12.5 Ovulation phase 4.7 - 21.5 Luteal phase 1.7 - 7.7 Postmenopausal 25.8 - 134.8 Performed By: #### L BCFSH #### [facility] [address] [place] [address] Dr. Venkat Sloan LUTEINIZING HORMONE (LH)on LH 5.1 mIU/mL Normal [facility] Comment on above: Result Comment: Adul t Female: Follicular phase 2.4 - 12.6 Ovulation phase 14.0 - 95.6 Luteal phase 1.0 - 11.4 Postmenopausal 7.7 - 58.5 Performed By: #### I NFLUAB #### [facility] [address] [place] [address] Dr. Venkat Sloan PROLACTINon 01-14-2022 Prolactin 8.0 ng/mL Normal 4.8-23.3 [facility] Comment on above: Performed By: #### P ROLAC #### [facility] [address] [place] [address] Dr. Venkat Sloan CBC AUTO DIFFon 01-13-2022 BASO # 0.0 103/ul Normal 0.0-0.1 [facility] Comment on above: Performed By: #### T SH #### [facility] [address] [place] [address] Dr. Venkat Sloan Basophils/100 WBC (Bld) 0.4 % Normal 0.2-2.0 [facility] Comment on above: Performed By: #### T SH #### [facility] [address] [place] [address] Dr. Venkat Sloan EO # 0.1 103/ul Normal 0.0-0.7 [facility] Comment on above: Performed By: #### T SH #### [facility] [address] [place] [address] Dr. Venkat Sloan Eosinophils/100 WBC (Bld) 1.2 % Normal 0.9-7.0 [facility] Comment on above: Performed By: #### T SH #### [facility] [address] [place] [address] Dr. Venkat Sloan Erythrocyte distribution width (RBC) [Ratio] 12.7 % Normal 11.0-15.0 [facility] Comment on above: Performed By: #### T SH #### [facility] [address] [place] [address] Dr. Venkat Sloan Hematocrit (Bld) [Volume fraction] 41.1 % Normal 36.0-48.0 [facility] Comment on above: Performed By: #### T SH #### [facility] [address] [place] [address] Dr. Venkat Sloan Hemoglobin (Bld) [Mass/Vol] 13.1 g/dL Normal 12.0-16.0 [facility] Comment on above: Performed By: #### T SH #### [facility] [address] [place] [address] Dr. Venkat Sloan IG # 0.03 10e3/ul Normal 0.00-0.03 [facility] Comment on above: Performed By: #### T SH #### [facility] [address] [place] [address] Dr. Venkat Sloan IG % 0.3 % Normal 0.0-0.[address] [facility] Comment on above: Performed By: #### T SH #### [facility] [address] [place] [address] Dr. Venkat Sloan LYMPH # 1.6 103/ul Normal 1.2-3.[address] [facility] Comment on above: Performed By: #### T SH #### [facility] [address] [address] [address] Venkat Sloan Lymphocytes/100 WBC (Bld) 15.0 % Critically low 20.5-60.0 [facility] Comment on above: Performed By: #### T SH #### [facility] [address] [place] [address] Dr. Venkat Sloan MANUAL DIFF REQ NO Normal [facility] Comment on above: Performed By: #### T SH #### [facility] [address] [place] [address] Dr. Venkat Sloan MCH (RBC) [Entitic mass] 28.5 pg Normal 26.7-34.0 [facility] Comment on above: Performed By: #### T SH #### [facility] [address] [place] [address] Dr. Venkat Sloan MCHC (RBC) [Mass/Vol] 31.9 g/dL Normal 29.9-35.2 [facility] Comment on above: Performed By: #### T SH #### [facility] [address] [place] [address] Dr. Venkat Sloan MCV (RBC) [Entitic vol] 89.3 fL Normal 81.0-99.0 [facility] Comment on above: Performed By: #### T SH #### [facility] [address] [place] [address] Dr. Venkat Sloan MONO # 0.9 103/ul Critically high 0.3-0.8 [facility] Comment on above: Performed By: #### T SH #### [facility] [address] [place] [address] Dr. Venkat Sloan Monocytes/100 WBC (Bld) 8.8 % Normal 1.7-12.0 [facility] Comment on above: Performed By: #### T SH #### [facility] [address] [place] [address] Dr. Venkat Sloan NEUT # 7.9 103/ul Critically high 1.4-6.5 [facility] Comment on above: Performed By: #### T SH #### [facility] [address] [address] [address] Venkat Sloan Neutrophils/100 WBC (Bld) 74.3 % Normal 43.0-75.0 [facility] Comment on above: Performed By: #### T SH #### [facility] [address] [place] [address] Dr. Venkat Sloan Platelet mean volume (Bld) [Entitic vol] 9.2 fL Critically low 9.5-13.5 [facility] Comment on above: Performed By: #### T SH #### [facility] [address] [address] [address] Venkat Sloan PLT 300 103/ul Normal 150-450 [facility] Comment on above: Performed By: #### T SH #### [facility] [address] [place] [address] Dr. Venkat Sloan RBC 4.60 106/ul Normal 4.20-5.40 [facility] Comment on above: Performed By: #### T SH #### [facility] [address] [place] [address] Dr. Venkat Sloan WBC 10.7 103/ul Normal 4.0-11.0 [facility] Comment on above: Performed By: #### T SH #### [facility] [address] [place] [address] Dr. Venkat Sloan GLYCOHEMOGLOBIN A1Con 2021 ADA RECOMMENDATION SEE BELOW Normal [facility] Comment on above: Result Comment: ADA RECOMMENDED LIMIT 4.0 - 6.0 ADA THERAPEUTIC TARGET < 7.0 ACTION SUGGESTED > 7.0 Performed By: #### P REGQNT #### [facility] [address] [place] [address] Dr. Venkat Sloan Glucose [Mass/Vol] 100 mg/dL Normal [facility] Comment on above: Performed By: #### P REGQNT #### [facility] [address] [place] [address] Dr. Venkat Sloan HbA1c (Bld) [Mass fraction] 5.1 % Normal 4.5-6.2 [facility] Comment on above: Performed By: #### P REGQNT #### [facility] [address] [place] [address] Dr. Venkat Sloan TSHon 01-13-2022 TSH 1.098 uIU/mL Normal 0.358-3.740 [facility] Comment on above: Performed By: #### T SH #### [facility] [address] [place] [address] Dr. Venkat Sloan Covid-19 PCR ([facility])on 12-26 SARS-CoV-2 (COVID-19) RNA SHIRIN+probe Ql (Unsp spec) Not detected Normal NOT DETECTED [facility] Comment on above: Result Comment: This test is not yet approved or cleared by the [place] FDA. When there are no FDA-approved or cleared tests available, and other criteria are met, FDA can make tests available under an emergency access mechanism called an Emergency Use Authorization (EUA). The EUA for this test is supported by the [place] of Health and Human Service's (HHS's) declaration [...] By: #### I NFLUAB #### [facility] [address] [place] [address] Dr. Venkat Sloan PREG QUANT HCGon 12-24-2021 HCG QUANT <1 Normal [facility] Comment on above: Performed By: #### P REGQNT #### [facility] [address] [place] [address] Dr. Venkat Sloan HCG RANGE SEE BELOW Normal [facility] Comment on above: Result Comment: 5-50 0.2-1 WEEK 50-500 1-2 WEEKS 100-5,000 2-3 WEEKS 500-10,000 3-4 WEEKS 1,000-50,000 4-5 WEEKS 10,000-100,000 5-6 WEEKS 15,000-200,000 6-8 WEEKS 10,000-100,000 2-3 MONTHS Performed By: #### P REGQNT #### [facility] [address] [place] [address] Dr. Venkat Sloan HCG-BETA SUBUNIT QUANTon hCG,Beta Subunit,Qnt,Serum <1 Normal [facility] Comment on above: Result Comment: Fema le (Non-) 0 - 5 (Postmenopausal) 0 - 8 . Female () Weeks of Gestation 3 6 - 71 4 10 - 750 5 152 - 5120 6 276 - 70569 7 2244 -[phone] 8 63906 -629175 9 39491 -[id number] 10 84271 -824178 12 37931 -603562 14 69415 - 97429 15 68839 - 27853 16 0806 - 05009 17 1273 - 15473 18 6811 - 91271 [employer] ECLIA methodology Performed By: #### T SH #### [facility] [address] [place] [address] Dr. Venkat Sloan BRETT by IFAon 09-29-2021 Antinuclear Antibodies, IFA Negative Normal [facility] Comment on above: Result Comment: Nega tive <1:80 Borderline 1:80 Positive >1:80 ICAP nomenclature: AC-0 For more information about Hep-2 cell patterns use ANApatterns.org, the official website for the International Consensus on Antinuclear Antibody (BRETT) Patterns (ICAP). Performed By: #### A NAIFA #### [facility] [address] [place] [address] Dr. Venkat Sloan INSULINon 09-29-2021 Insulin 11.1 uIU/mL Normal 2.6-24.[address] [facility] Comment on above: Performed By: #### T SH #### [facility] [address] [place] [address] Dr. Venkat Sloan ANTISTREPTOLYSIN O AB (ASO)o n 09-27-2021 Antistreptolysin O Ab <20.0 Normal 0.0-200.0 [facility] Comment on above: Performed By: #### P REGQNT #### [facility] [address] [place] [address] Dr. Venkat Sloan RHEUMATOID FACTORon 09-28-19 RA Latex Turbid. <10.0 Normal <14.0 [facility] Comment on above: Performed By: #### R F #### [facility] [address] [place] [address] Dr. Venkat Sloan CBC AUTO DIFFon 09-26-2021 BASO # 0.0 103/ul Normal 0.0-0.1 [facility] Comment on above: Performed By: #### T SH #### [facility] [address] [place] [address] Dr. Venkat Sloan Basophils/100 WBC (Bld) 0.3 % Normal 0.2-2.0 [facility] Comment on above: Performed By: #### T SH #### [facility] [address] [place] [address] Dr. Venkat Sloan EO # 0.1 103/ul Normal 0.0-0.7 [facility] Comment on above: Performed By: #### T SH #### [facility] [address] [place] [address] Dr. Venkat Sloan Eosinophils/100 WBC (Bld) 1.8 % Normal 0.9-7.0 [facility] Comment on above: Performed By: #### T SH #### [facility] [address] [place] [address] Dr. Venkat Sloan Erythrocyte distribution width (RBC) [Ratio] 12.9 % Normal 11.0-15.0 [facility] Comment on above: Performed By: #### T SH #### [facility] [address] [place] [address] Dr. Venkat Sloan Hematocrit (Bld) [Volume fraction] 39.8 % Normal 36.0-48.0 [facility] Comment on above: Performed By: #### T SH #### [facility] [address] [place] [address] Dr. Venkat Sloan Hemoglobin (Bld) [Mass/Vol] 12.7 g/dL Normal 12.0-16.0 [facility] Comment on above: Performed By: #### T SH #### [facility] [address] [place] [address] Dr. Venkat Sloan IG # 0.02 10e3/ul Normal 0.00-0.03 [facility] Comment on above: Performed By: #### T SH #### [facility] [address] [place] [address] Dr. Venkat Sloan IG % 0.3 % Normal 0.0-0.5 [facility] Comment on above: Performed By: #### T SH #### [facility] [address] [place] [address] Dr. Venkat Sloan LYMPH # 1.5 103/ul Normal 1.2-3.8 [facility] Comment on above: Performed By: #### T SH #### [facility] [address] [place] [address] Dr. Venkat Sloan Lymphocytes/100 WBC (Bld) 21.5 % Normal 20.5-60.0 [facility] Comment on above: Performed By: #### T SH #### [facility] [address] [place] [address] Dr. Venkat Sloan MANUAL DIFF REQ NO Normal [facility] Comment on above: Performed By: #### T SH #### [facility] [address] [place] [address] Dr. Venkat Sloan MCH (RBC) [Entitic mass] 28.5 pg Normal 26.7-34.0 [facility] Comment on above: Performed By: #### T SH #### [facility] [address] [place] [address] Dr. Venkat Sloan MCHC (RBC) [Mass/Vol] 31.9 g/dL Normal 29.9-35.2 [facility] Comment on above: Performed By: #### T SH #### [facility] [address] [place] [address] Dr. Venkat Sloan MCV (RBC) [Entitic vol] 89.2 fL Normal 81.0-99.0 [facility] Comment on above: Performed By: #### T SH #### [facility] [address] [place] [address] Dr. Venkat Sloan MONO # 0.5 103/ul Normal 0.3-0.8 [facility] Comment on above: Performed By: #### T SH #### [facility] [address] [place] [address] Dr. Venkat Sloan Monocytes/100 WBC (Bld) 7.6 % Normal 1.7-12.0 [facility] Comment on above: Performed By: #### T SH #### [facility] [address] [place] [address] Dr. Venkat Sloan NEUT # 4.9 103/ul Normal 1.4-6.5 [facility] Comment on above: Performed By: #### T SH #### [facility] [address] [place] [address] Dr. Venkat Sloan Neutrophils/100 WBC (Bld) 68.5 % Normal 43.0-75.0 [facility] Comment on above: Performed By: #### T SH #### [facility] [address] [place] [address] Dr. Venkat Sloan Platelet mean volume (Bld) [Entitic vol] 8.8 fL Critically low 9.5-13.5 [facility] Comment on above: Performed By: #### T SH #### [facility] [address] [place] [address] Dr. Venkat Sloan PLT 297 103/ul Normal 150-[address] [facility] Comment on above: Performed By: #### T SH #### [facility] [address] [place] [address] Dr. Venkat Sloan RBC 4.46 106/ul Normal 4.20-5.40 [facility] Comment on above: Performed By: #### T SH #### [facility] [address] [place] [address] Dr. Venkat Sloan WBC 7.1 103/ul Normal 4.0-11.0 [facility] Comment on above: Performed By: #### T SH #### [facility] [address] [address] [address] Venkat Sloan CRPon 09-26-2021 CRP [Mass/Vol] mg/L Normal <=1.0 [facility] Comment on above: Performed By: #### P REGQNT #### [facility] [address] [place] [address] Dr. Venkat Sloan FREE THYROXINE INDEX T7on FTI 2.71 Normal 1.30-4.50 [facility] Comment on above: Performed By: #### P REGQNT #### [facility] [address] [place] [address] Dr. Venkat Sloan T3U 33.0 % Normal 30.0-39.0 [facility] Comment on above: Performed By: #### P REGQNT #### [facility] [address] [place] [address] Dr. Venkat Sloan T4 [Mass/Vol] 8.20 ug/dL Normal 4.80-13.90 [facility] Comment on above: Performed By: #### P REGQNT #### [facility] [address] [place] [address] Dr. Vnekat Sloan GLYCOHEMOGLOBIN A1Con 2021 ADA RECOMMENDATION SEE BELOW Normal [facility] Comment on above: Result Comment: ADA RECOMMENDED LIMIT 4.0 - 6.0 ADA THERAPEUTIC TARGET < 7.0 ACTION SUGGESTED > 7.0 Performed By: #### I NFLUAB #### [facility] [address] [place] [address] Dr. Venkat Sloan Glucose [Mass/Vol] 105 mg/dL Normal [facility] Comment on above: Performed By: #### I NFLUAB #### [facility] [address] [place] [address] Dr. Venkat Sloan HbA1c (Bld) [Mass fraction] 5.3 % Normal 4.5-6.2 [facility] Comment on above: Performed By: #### I NFLUAB #### [facility] [address] [place] [address] Dr. Venkat Sloan IRONon 09-26-2021 Iron [Mass/Vol] 49.0 ug/dL Critically low 50.0-170.0 [facility] Comment on above: Performed By: #### P REGQNT #### [facility] [address] [address] [address] Venkat Sloan LIPID PROFILEon 09-26-2021 CHOL-HDL RATIO NORM SEE BELOW Normal [facility] Comment on above: Result Comment: 3.3 - 4.4 LOW RISK 4.4 - 7.1 AVERAGE RISK 7.1 - 11.0 MODERATE RISK >11.0 HIGH RISK Performed By: #### P REGQNT #### [facility] [address] [address] [address] Venkat Sloan Cholesterol [Mass/Vol] 197 mg/dL Normal <=200 [facility] Comment on above: Performed By: #### P REGQNT #### [facility] [address] [address] [address] Venkat Sloan Cholesterol in HDL [Mass/Vol] 64 mg/dL Critically high 40-60 [facility] Comment on above: Performed By: #### P REGQNT #### [facility] [address] [address] [address] Venkat Sloan Cholesterol in LDL [Mass/Vol] 123.4 mg/dL Normal [facility] Comment on above: Performed By: #### P REGQNT #### [facility] [address] [address] [address] Venkat Sloan Cholesterol.total/Choles terol in HDL [Mass ratio] 3.1 {ratio} Normal [facility] Comment on above: Performed By: #### P REGQNT #### [facility] [address] [address] [address] Venkat Sloan HDL NORMAL > or = 60 mg/dl - LO W CARDIOVASCULAR RISK <40 mg/dl - HIGH CARDIOVASCULAR RISK Normal [facility] Comment on above: Performed By: #### P REGQNT #### [facility] [address] [address] [address] Venkat Sloan LDL CALC NORMAL SEE BELOW Normal [facility] Comment on above: Result Comment: <100 mg/dl OPTIMAL 100 - 129 mg/dl NEAR OR ABOVE OPTIMAL 130 - 159 mg/dl BORDERLINE HIGH 160 - 189 mg/dl HIGH >190 mg/dl VERY HIGH Performed By: #### P REGQNT #### [facility] [address] [address] [address] Venkat Sloan Triglyceride [Mass/Vol] 48 mg/dL Normal <=150 [facility] Comment on above: Performed By: #### P REGQNT #### [facility] [address] [address] [address] Venkat Sloan VLDL CALC 9.6 mg/dL Normal [facility] Comment on above: Performed By: #### P REGQNT #### [facility] [address] [address] [address] Venkat Sloan PROF 14(COMP METB)on 022 Albumin [Mass/Vol] 4.0 g/dL Normal 3.4-5.0 [facility] [facility] Comment on above: Performed By: #### I NFLUAB #### [facility] [address] [address] [address] Venkat Sloan Albumin/Globulin [Mass ratio] 1.3 {ratio} Normal [facility] Comment on above: Performed By: #### I NFLUAB #### [facility] [address] [address] [address] Venkat Sloan ALP [Catalytic activity/Vol] 58 U/L Normal 46-116 [facility] Comment on above: Performed By: #### I NFLUAB #### [facility] [address] [address] [address] Venkat Sloan ALT [Catalytic activity/Vol] 20 U/L Normal 14-59 [facility] Comment on above: Performed By: #### I NFLUAB #### [facility] [address] [address] [address] Venkat Sloan Anion gap [Moles/Vol] 10.4 mmol/L Normal [facility] Comment on above: Performed By: #### I NFLUAB #### [facility] [address] [address] [address] Venkat Sloan AST [Catalytic activity/Vol] 11 U/L Critically low 15-37 [facility] Comment on above: Performed By: #### I NFLUAB #### [facility] [address] [address] [address] Venkat Sloan Bilirubin [Mass/Vol] 0.8 mg/dL Normal 0.2-1.0 [facility] Comment on above: Performed By: #### I NFLUAB #### [facility] [address] [address] [address] Venkat Sloan Calcium [Mass/Vol] 9.0 mg/dL Normal 8.5-10.1 [facility] Comment on above: Performed By: #### I NFLUAB #### [facility] [address] [address] [address] Venkat Sloan Chloride [Moles/Vol] 106 mmol/L Normal 98-107 [facility] Comment on above: Performed By: #### I NFLUAB #### [facility] [address] [address] [address] Venkat Sloan CO2 [Moles/Vol] 27.0 mmol/L Normal 21.0-32.0 [facility] Comment on above: Performed By: #### I NFLUAB #### [facility] [address] [place] [address] Dr. Venkat Sloan Creatinine [Mass/Vol] 0.70 mg/dL Normal 0.55-1.02 [facility] Comment on above: Performed By: #### I NFLUAB #### [facility] [address] [address] [address] Venkat Sloan EGFR-AF MALAWIAN >60 Normal >=60 [facility] Comment on above: Performed By: #### I NFLUAB #### [facility] [address] [address] [address] Venkat Sloan EGFR-NON AF MALAWIAN >60 Normal >=[address] [facility] Comment on above: Performed By: #### I NFLUAB #### [facility] [address] [address] [address] Venkat Sloan Globulin (S) [Mass/Vol] 3.2 g/dL Normal [facility] Comment on above: Performed By: #### I NFLUAB #### [facility] [address] [place] [address] Dr. Venkat Sloan Glucose [Mass/Vol] 92 mg/dL Normal 74-106 [facility] Comment on above: Performed By: #### I NFLUAB #### [facility] [address] [place] [address] Dr. Venkat Sloan Potassium [Moles/Vol] 4.4 mmol/L Normal 3.5-5.1 [facility] Comment on above: Performed By: #### I NFLUAB #### [facility] [address] [place] [address] Dr. Venkat Sloan Protein [Mass/Vol] 7.2 g/dL Normal 6.4-8.2 [facility] Comment on above: Performed By: #### I NFLUAB #### [facility] [address] [place] [address] Dr. Venkat Sloan Sodium [Moles/Vol] 139 mmol/L Normal 136-145 [facility] Comment on above: Performed By: #### I NFLUAB #### [facility] [address] [place] [address] Dr. Venkat Sloan Urea nitrogen [Mass/Vol] 13.0 mg/dL Normal 7.0-18.0 [facility] Comment on above: Performed By: #### I NFLUAB #### [facility] [address] [place] [address] Dr. Venkat Sloan Urea nitrogen/Creatinine [Mass ratio] 18.6 mg/mg Normal [facility] Comment on above: Performed By: #### I NFLUAB #### [facility] [address] [place] [address] Dr. Venkat Sloan TSHon 09-26-2021 TSH 1.318 uIU/mL Normal 0.358-3.740 [facility] Comment on above: Performed By: #### P REGQNT #### [facility] [address] [address] [address] Venkat Sloan URIC ACID SERUMon 09-26-2021 Urate [Mass/Vol] 3.9 mg/dL Normal 2.6-6.0 [facility] Comment on above: Performed By: #### P REGQNT #### [facility] [address] [place] [address] Dr. Venkat Sloan XR CSPINE MIN 4 [...] Date: 2021-09-24 21:16 Normal [facility] PREG QUANT HCGon 08-17-2021 HCG QUANT <1 Normal [facility] Comment on above: Performed By: #### I NFLUAB #### [facility] [address] [place] [address] Dr. Venkat Sloan HCG RANGE SEE BELOW Normal [facility] Comment on above: Result Comment: 5-50 0-1 WEEK 40-300 1-2 WEEKS 100-1,000 2-3 WEEKS 500-6,000 3-4 WEEKS 5,000-200,000 1-2 MONTHS 10,000-100,000 2-3 MONTHS 3,000-50,000 2ND TRIMESTER 1,000-50,000 3RD TRIMESTER Performed By: #### I NFLUAB #### [facility] [address] [place] [address] Dr. Venkat Sloan US PELVIS AND TRANSVAGon [...] by: DUDLEY HERNÁNDEZ Date: 2021-08-17 07:01 Normal [facility] TrialBee Quick Testingon 2020 Result Negative [employer] Other Vital Signs Date Time Vital Sign Value Performing Clinician Facility 05-22-2023 09:27-0500 Body height 154.94 cm [facility] 05-22-2023 09:27-0500 Body mass index (BMI) [Ratio] 30.8 kg/m2 [facility] 05-22-2023 09:27-0500 Body temperature 98.1 [degF] [facility] 05-22-2023 09:27-0500 Body weight 74.04 kg [facility] 05-22-2023 09:27-0500 Heart rate 78 /min [facility] 05-22-2023 09:27-0500 Respiratory rate 16 /min [facility] 05-22-2023 09:27-0500 SaO2% (BldA) [Mass fraction] 98 % [facility] 05-10-2023 15:14-0500 Body mass index (BMI) [Ratio] 30.04 kg/m2 [employer] Work Phone: [facility] 05-10-2023 15:14-0500 Body weight 72.12 kg [employer] Work Phone: [facility] 05-10-2023 15:14-0500 Diastolic blood pressure 70 mm[Hg] Ricardo Jennifer DO Work Phone: [facility] 05-10-2023 15:14-0500 Systolic blood pressure 110 mm[Hg] Ricardo Rodriguez DO Work Phone: [facility] 01-27-2021 18:45-0400 Body height 154.94 cm Mohini Martinez Other [employer] Other 01-27-2021 18:45-0400 Body mass index (BMI) [Ratio] 28.34 kg/m2 Mohini Martinez Other [employer] Other 01-27-2021 18:45-0400 Body temperature 96.4 [degF] Mohini Martinez Other [employer] Other 01-27-2021 18:45-0400 Body weight 68.04 kg Mohini Martinez Other [employer] Other 01-27-2021 18:45-0400 Respiratory rate 18 /min Mohini Martinez Other [employer] Other 01-27-2021 18:45-0400 SaO2% (BldA) [Mass fraction] 99 % Mohini Martinez Other [employer] Other 12-22-2020 11:45-0400 Body height 154.94 cm Dudley Freeman Other [employer] Other 12-22-2020 11:45-0400 Body mass index (BMI) [Ratio] 28.34 kg/m2 Dudley Freeman Other [employer] Other 12-22-2020 11:45-0400 Body weight 68.04 kg Dudley Freeman Other [employer] Other Encounters Encounter Date Encounter Type Care Provider Facility Start: 03-01-2024 End: 03-01-2024 Bamboo flowsheet Ricardo Jennifer DO Work Phone: [facility] Start: 03-01-2024 End: 03-01-2024 Bamboo flowsheet Ricardo Jennifer DO Work Phone: [facility] Start: 03-01-2024 End: 03-01-2024 Office outpatient visit 15 minutes Ricardo Jennifer DO Work Phone: [facility] Comment on above: Abnormal vaginal ble eding; PCOS (polycystic ovarian syndrome) Start: 09-26-2023 End: 09-26-2023 ambulatory RICARDO JENNIFER Not Available Start: 08-11-2023 End: 08-11-2023 ambulatory RICARDO JENNIFER Not Available Start: 08-04-2023 End: 08-04-2023 ambulatory RICARDO JENNIFER Not Available Start: 07-28-2023 End: 07-28-2023 ambulatory RICARDO JENNIFER Not Available Start: 07-21-2023 End: 07-21-2023 ambulatory RICARDO JENNIFER Not Available Start: 07-14-2023 End: 07-14-2023 ambulatory RICARDO JENINFER Not Available Start: 06-30-2023 End: 06-30-2023 ambulatory RICARDO JENNIFER Not Available Start: 06-13-2023 End: 06-13-2023 ambulatory RICARDO JENNIFER Not Available Start: 05-26-2023 End: 05-26-2023 ambulatory RICARDO JENNIFER Not Available Start: 05-22-2023 End: 05-22-2023 ambulatory [facility] Work Phone: Start: 05-22-2023 End: 05-22-2023 Patient encounter procedure [facility] Work Phone: Start: 05-10-2023 End: 05-10-2023 flow sheet Ricardo Jennifer DO Work Phone: [facility] Comment on above: Second trimester pre gnancy; Diabetes mellitus screening Start: 05-10-2023 End: 05-10-2023 ambulatory RICARDO RODRIGUEZ Not Available Start: 04-12-2023 End: 04-12-2023 ambulatory RICARDO RODRIGUEZ Not Available Start: 03-15-2023 End: 03-15-2023 ambulatory RICARDO RODRIGUEZ Not Available Start: 02-10-2023 End: 02-10-2023 ambulatory RICARDO RODRIGUEZ Not Available Start: 07-09-2022 Encounter for other preprocedural examination DR RICARDO RODRIGUEZ . [facility] Start: 07-08-2022 End: 07-08-2022 ambulatory [...] without abnormal findings DR IRON GARCIA . [facility] Start: 09-26-2021 End: 09-27-2021 ambulatory [...] 01-27-2021 End: 01-27-2021 ambulatory Mohini Martinez Other [employer] Other Start: 01-27-2021 Office outpatient vi sit 15 minutes Mohini Martinez [facility] Start: 12-22-2020 Office outpatient ne w 45 minutes Dudley Freeman [facility] Procedures Date Procedure Procedure Detail Performing Clinician Start: 05-22-2023 POC COVID/FLU/RSV Start: 05-10-2023 Urnls dip stick/tabl et rgnt non-auto w/o micrscp Ricardo Rodriguez DO Work Phone: Start: 03-15-2023 Microscopic observat ion [Identifier] in Cervix by Cyto stain Ricardo Rodriguez DO Work Phone: Plan of Treatment Date Care Activity Detail Author Start: 03-15-2026 Screening for malign ant neoplasm of cervix [facility] Start: 05-24-2024 End: 05-24-2024 Patient encounter procedure 05/24/2024 8:30 AM EST Office Visit [facility] [address] [place] [address] Ricardo Rodriguez, DO [address] [place] [address] [facility] Start: 03-01-2024 End: 03-01-2025 CBC W Auto Differential panel - Blood CBC and differential Lab Routine Abnormal vaginal bleeding Expected: 03/01/2024 (Approximate), Expires: 03/01/2025 [facility] Comment on above: Expected: 03/01/2024 (Approximate), Expires: 03/01/2025 Start: 03-01-2024 End: 03-01-2025 DHEA DHEA Lab Routine Abnormal vaginal bleeding Expected: 03/01/2024, Expires: 03/01/2025 [facility] Comment on above: Expected: 03/01/2024 , Expires: 03/01/2025 Start: 03-01-2024 End: 03-01-2025 DHEA-sulfate DHEA-sulfate Lab Routine Abnormal vaginal bleeding Expected: 03/01/2024 (Approximate), Expires: 03/01/2025 [facility] Comment on above: Expected: 03/01/2024 (Approximate), Expires: 03/01/2025 Start: 03-01-2024 End: 03-01-2025 Follicle stimulating hormone Follicle stimulating hormone Lab Routine Abnormal vaginal bleeding Expected: 03/01/2024 (Approximate), Expires: 03/01/2025 [facility] Comment on above: Expected: 03/01/2024 (Approximate), Expires: 03/01/2025 Start: 03-01-2024 End: 03-01-2025 hCG, quantitative, hCG, quantitative, Lab Routine Abnormal vaginal bleeding Expected: 03/01/2024 (Approximate), Expires: 03/01/2025 [facility] Work Phone: Comment on above: Expected: 03/01/2024 (Approximate), Expires: 03/01/2025 Start: 03-01-2024 End: 03-01-2025 Hemoglobin A1c/Hemoglobin.total in Blood Hemoglobin A1c Lab Routine Abnormal vaginal bleeding Expected: 03/01/2024 (Approximate), Expires: 03/01/2025 [facility] Comment on above: Expected: 03/01/2024 (Approximate), Expires: 03/01/2025 Start: 03-01-2024 End: 03-01-2025 Luteinizing hormone Luteinizing hormone Lab Routine Abnormal vaginal bleeding Expected: 03/01/2024 (Approximate), Expires: 03/01/2025 [facility] Comment on above: Expected: 03/01/2024 (Approximate), Expires: 03/01/2025 Start: 03-01-2024 End: 03-01-2025 Thyrotropin [Units/volume] in Serum or Plasma TSH Lab Routine Abnormal vaginal bleeding Expected: 03/01/2024 (Approximate), Expires: 03/01/2025 [facility] Comment on above: Expected: 03/01/2024 (Approximate), Expires: 03/01/2025 Start: 03-01-2024 End: 03-01-2025 Thyroxine (T4) free [Mass/volume] in Serum or Plasma T4, free Lab Routine Abnormal vaginal bleeding Expected: 03/01/2024 (Approximate), Expires: 03/01/2025 [facility] Comment on above: Expected: 03/01/2024 (Approximate), Expires: 03/01/2025 Start: 03-01-2024 End: 03-01-2025 US for US PELVIS-TRANSVAG IF INDICATED Imaging Routine Abnormal vaginal bleeding Expected: 03/01/2024 (Approximate), Expires: 03/01/2025 [facility] Comment on above: Expected: 03/01/2024 (Approximate), Expires: 03/01/2025 Start: 03-01-2024 End: 03-01-2024 Patient encounter procedure 03/01/2024 11:10 AM EST Office Visit [facility] [address] [id number] Ricardo Rodriguez, DO [address] [place] [address] [place] [address] Arrived [facility] Comment on above: Arrived Start: 12-05-2023 Screening for malign ant neoplasm of cervix HPV/Cotest [facility] Start: 11-27-2023 Influenza vaccination Influenza Vacc ine (#1) [facility] Start: 05-26-2023 End: 05-26-2023 Patient encounter procedure 05/26/2023 9:50 AM EST Routine [facility] [address] [id number] Ricardo Rodriguez, DO [address] [place] [address] [facility] Start: 05-10-2023 End: 05-10-2024 CBC panel - Blood by Automated count CBC Lab Routine Diabetes mellitus screening Expected: 05/10/2023 (Approximate), Expires: 05/10/2024 [facility] Work Phone: Comment on above: Expected: 05/10/2023 (Approximate), Expires: 05/10/2024 Start: 05-10-2023 End: 05-10-2024 Measurement of glucose 1 hour after glucose challenge for glucose tolerance test Glucose tolerance, 1 hour Lab Routine Diabetes mellitus screening Expected: 05/10/2023 (Approximate), Expires: 05/10/2024 [facility] Comment on above: Expected: 05/10/2023 (Approximate), Expires: 05/10/2024 Start: 11-26-2022 Influenza vaccination Influenza Vacc ine (#1) [facility] Immunizations Immunization Date Immunization Notes Care Provider Fa cili 01-25-2022 influenza virus vacc ine, unspecified formulation Ricardo Rodriguez DO Work Phone: [facility] Payers Date Payer Category Payer [employer] [id number] 2022 Unknown BCBS BCBS [id number] [id number] 2022-Present [phone] [id number] [place], [place] [address] [id number]. [id number] 1993 Unknown [id number] 2.16.840.1.956591.3.579.2. 59 1993 Unknown [id number] 2.16.840.1.923400.3.579.2. 593 1993 Unknown [id number] 2.16.840.1.608578.3.579.2. 59 1993 Unknown [id number] 2.16.840.1.927358.3.579.2. 593 1993 Unknown [id number] 2.16.840.1.209354.3.579.2. 59 1993 Unknown [id number] 2.16.840.1.237836.3.579.2. 593 1993 Unknown [id number] 2.16.840.1.634097.3.579.2. 59 1993 Unknown [id number] 2.16.840.1.080183.3.579.2. 593 1993 Unknown [id number] 2.16.840.1.053073.3.579.2. 59 1993 Unknown [id number] 2.16.840.1.747895.3.579.2. 59 1993 Unknown [id number] 2.16.840.1.066680.3.579.2. 59 1993 Unknown [id number] 2.16.840.1.109369.3.579.2. 59 1993 Unknown [id number] 2.16.840.1.999454.3.579.2. 1993 Unknown [id number] 2.16.840.1.427703.3.579.2. 59 1993 Unknown [id number] 2.16.840.1.138788.3.579.2. 59 1993 Unknown [id number] 2.16.840.1.731731.3.579.2. 59 1993 Unknown [id number] 2.16.840.1.330033.3.579.2. 59 1993 Unknown [id number] 2.16.840.1.313998.3.579.2. 59 1993 Unknown [id number] 2.16.840.1.390548.3.579.2. 59 1993 Unknown [id number] 2.16.840.1.418983.3.579.2. 59 1993 Unknown [id number] 2.16.840.1.576178.3.579.2. 59 1993 Unknown [id number] 2.16.840.1.542072.3.579.2. 59 1993 Unknown [id number] 2.16.840.1.288552.3.579.2. 59 1993 Unknown [id number] 2.16.840.1.149104.3.579.2. 593 1993 Unknown [id number] 2.16.840.1.555730.3.579.2. 593 1993 Unknown [id number] 2.16.840.1.469512.3.579.2. 1258 1993 Unknown [id number] 2.16.840.1.224703.3.579.2. 1258 1993 Unknown [id number] 2.16.840.1.857639.3.579.2. 1258 1993 Unknown [id number] 2.16.840.1.591494.3.579.2. 1258 1993 Unknown [id number] 2.16.840.1.078133.3.579.2. 1258 1993 Unknown [id number] 2.16.840.1.275273.3.579.2. 1258 1993 Unknown [id number] 2.16.840.1.540290.3.579.2. 1258 1993 Unknown [id number] 2.16.840.1.190010.3.579.2. 1258 1993 Unknown [id number] 2.16.840.1.487879.3.579.2. 1258 1993 Unknown [id number] 2.16.840.1.186052.3.579.2. 1258 1993 Unknown [id number] 2.16.840.1.030518.3.579.2. 1258 1993 Unknown [id number] 2.16.840.1.289074.3.579.2. 1258 1993 Unknown [id number] 2.16.840.1.794192.3.579.2. 9 1959 Unknown [id number] 1959 Unknown [id number] Self-pay Self Pay [id number] Unknown [id number] 2.16.840.1.774786.19 Unknown [facility] [id number] Unknown [employer] [id number] Social History Date Type Detail Facility Unknown if ever smoked [employer] Other Start: 01-28-2023 End: 03-15-2023 Sex Assigned At [employer] Other Start: 01-28-2023 End: 05-22-2023 Tobacco smoking status NHIS Never smoked tobacco [facility] Start: 05-10-2023 End: 03-01-2024 Alcohol intake Current drinker of alcohol (finding) [facility] Start: 01-28-2023 End: 03-15-2023 History of Social function [facility] How [...] [facility] History of Present illness Narrative 03-01-2024 Abigail Guzman LPN - 03/01/2024 11:10 AM EST Note Date & Type Note Facility 03-01-2024 History of Presen t illness Narrative Reason for Appointment: Patient ID: Kasandra Macias is a 28 y.o. female who presents for continuous vaginal bleeding Patient presents today for Consult appointment. MEDICATIONS Current Outpatient Medications Medication Instructions medroxyPROGESTERone (PROVERA) 10 mg, Oral, Daily ALLERGIES No Known Allergies PROBLEMS Active Ambulatory Problems Diagnosis Date Noted Anemia 05/26/2023 Hypoglycemia 05/26/2023 JOSESITO (amniotic fluid index) increased 05/26/2023 Third trimester 06/13/2023 32 weeks gestation of 06/30/2023 Resolved Ambulatory Problems Diagnosis Date Noted No Resolved Ambulatory Problems Past Medical History: Diagnosis Date Anxiety Cyst of right ovary Depression (CMS/HCC) Endometriosis History of miscarriage Hormone imbalance IBS (irritable bowel syndrome) Pain of ovary HISTORY PAST MEDICAL HISTORY SOCIAL HISTORY Past Medical History: Diagnosis Date Anxiety Cyst of right ovary Depression (CMS/HCC) Endometriosis History of miscarriage Hormone imbalance IBS (irritable bowel syndrome) Pain of ovary Social History Tobacco Use Smoking status: Never Smokeless tobacco: Not on file Substance Use Topics Alcohol use: Yes Comment: caffeine: occasional Drug use: Never FAMILY HISTORY Family History Problem Relation Name Age of Onset Breast cancer Mother Lung cancer Maternal Grandfather SURGICAL HISTORY Past Surgical History: Procedure Laterality Date COLONOSCOPY 2017 DILATION AND CURETTAGE OF UTERUS LAPAROSCOPY DIAGNOSTIC / BIOPSY / ASPIRATION / LYSIS TONSILLECTOMY XR HYSTEROSALPINGOGRAM Bilateral REVIEW OF SYSTEMS Review of Systems: Review of Systems Genitourinary: Positive for vaginal bleeding. All other systems reviewed and are negative. OBJECTIVE Objective: Physical Exam Constitutional: Appearance: Normal appearance. She [...] nursing note reviewed. Exam conducted with a snack bar cook present. Vitals: Estimated body mass index is 30.44 kg/m as calculated from the following: Height as of 11/23/22: 5' 1 . Weight as of 09/26/23: 161 lb 1.9 oz. BP: No LMP recorded. ASSESSMENT & PLAN ICD-10-CM 1. Abnormal vaginal bleeding N93.9 medroxyPROGESTERone (Provera) 10 MG tablet hCG, quantitative, TSH T4, free CBC and differential Follicle stimulating hormone Luteinizing hormone Hemoglobin A1c DHEA-sulfate DHEA US PELVIS-TRANSVAG IF INDICATED hCG, quantitative, TSH T4, free CBC and differential Follicle stimulating hormone Luteinizing hormone Hemoglobin A1c DHEA-sulfate DHEA 2. PCOS (polycystic ovarian syndrome) E28.2 Patient presents for heavy vaginal bleeding. Patient will have labs drawn and ultrasound performed. Patient to RTC in 12 weeks for annual and review of labs. Documented by Abigail Guzman LPN on behalf of: Ricardo Rodriguez DO documented in this encounter [facility] History of Present illness Narrative [...] nursing note reviewed. Exam conducted with a snack bar cook present. Vitals: Estimated body mass index is [...] Ricardo Rodriguez DO documented in this encounter [facility] Clinical Note 07-08-2022 Note Date & Type Note Facility 07-08-2022 Note OPERATIVE NOTE OPERATION DATE: 07/08/2022 PROCEDURE: Diagnostic laparoscopy with fulguration of ovarian endometrial implant. PREOPERATIVE DIAGNOSIS: Pelvic pain. POSTOPERATIVE DIAGNOSIS: Pelvic pain. ANESTHESIA: General. SURGEON: Ricardo Rodriguez D.O. SPONSORSHIP MANAGER: DEVIN Miles URINE OUTPUT: Yellow and clear. [...] Room in stable condition. [facility] Evaluation note 12-22-2020 Note Date & Type Note Facility 12-22-2020 Evaluation note Encounter Date Diagnosis Assessment Notes Nov, Irritable bowel syndrome with both constipation and diarrhea (ICD-10 - K58.2) LABS INDICATED ABOVE START TRIAL OF DICYCLOMINE 20 BID RTO 4 WEEKS [employer] Other Evaluation note Note Date & Type Note Facility Evaluation note [employer] Other Evaluation note Note Date & Type Note Facility Evaluation note Diagnosis Second trimester state, incidental Diabetes mellitus screening Screening for diabetes mellitus documented in this encounter [facility] Evaluation note Note Date & Type Note Facility Evaluation note No assessment information availa [facility] Work Phone: Evaluation note Note Date & Type Note Facility Evaluation note Diagnosis Abnormal vaginal bleeding Other specified noninflammatory disorder of vagina PCOS (polycystic ovarian syndrome) Polycystic ovaries documented in this encounter [facility] History general Narrative - Reported Note Date & Type Note Facility History general Narrative - Reported Type Medical History anxiety/depression Medical History IBS Surgical History TONSILLECTOMY [facility] [employer] Other History general Narrative - Reported Note Date & Type Note Facility History general Narrative - Reported [facility] [employer] Other Summary Purpose Family History Relationship Condition [...] section and content) Reason Comments Routine Visit Reason Comments continuous vaginal bleeding INFORMATION SOURCE (unrecogn ized section and content) DATE CREATED AUTHOR 07/13/2022 [facility] DATE CREATED AUTHOR AUTHOR'S ORGANIZ ATION 09/27/2023 [facility] [facility] Care Teams (unrecognized sec tion and content) Cinema Operator Relationship Specialty Start Date End Date Iron Garcia MD [address] [place] [id number] PCP - General Family Medicine 11/23/22 Team Status: Active Member Role Status Dates Iron Garcia MD Primary Care Provider Active Team Status: Inactive Member Role Status Dates Iron Garcia MD Primary Care Provider Active Start: May 22, 2023 End: May 22, 2023 Teresa Wilkins APRN Attending Provider Active Start: May 22, 2023 End: May 22, 2023 Cinema Operator Relationship Specialty Start Date End Date Iron Garcia MD [address] [place] [phone] PCP - General Family Medicine 11/23/22 Cinema Operator Relationship Specialty Start Date End Date Iron Garcia MD [address] [place] [phone] PCP - General Family Medicine 11/23/22 Goals (unrecognized section and content) Goals may [...] BE BASED ON THE PRIMARY CLINICAL RECORDS. [facility] [employer] [facility]. provides no warranty or guarantee of the accuracy or completeness of information in this document.
== END 2024-03-27 14:05 | disposition home or self-care (01) ==
LOC: US 14:04
PROVIDERS: PCP Family Medicine; Visit Provider Obstetrics & Gynecology
DX: N93.9 Abnormal uterine and vaginal bleeding, unspecified (principal)
CPT/HCPCS: 76830; 76856

== ENCOUNTER 2024-06-28 11:47 | Outpatient (OUT) | payer BC, SELFPAY ==
[2024-06-28 12:07] LABS: Basophils Percent Auto 0.5 % (0.2-2.0); Eosinophils Absolute Auto 0.2 10^3/uL (0.0-0.7); Eosinophils Percent Auto 2.6 % (0.9-7.0); Hematocrit 39.2 % (36.0-48.0); Hemoglobin 12.8 g/dL (12.0-16.0); Immature Granulocytes Abs Auto 0.02 10^3/uL (0.00-0.03); Immature Granulocytes Pct Auto 0.3 % (0.0-0.5); Lymphocytes Absolute Auto 1.7 10^3/uL (1.2-3.8); Lymphocytes Percent Auto 27.1 % (20.5-60.0); Mean Corpuscular HGB Conc 32.7 g/dL (29.9-35.2); Mean Corpuscular Hemoglobin 29.4 pg (26.7-34.0); Mean Corpuscular Volume 89.9 fL (81.0-99.0); Mean Platelet Volume 8.9 fL (9.5-13.5); Monocytes Absolute Auto 0.6 10^3/uL (0.3-0.8); Monocytes Percent Auto 9.9 % (1.7-12.0); Neutrophils Absolute Auto 3.7 10^3/uL (1.4-6.5); Neutrophils Percent Auto 59.6 % (43.0-75.0); Platelet Count 279 10^3/uL (150-450); Red Blood Count 4.36 10^6/uL (4.20-5.40); Red Cell Distribution Width 13.3 % (11.0-15.0); White Blood Count 6.2 10^3/uL (4.0-11.0)
[2024-06-28 12:45] LABS: Thyroid Stimulating Hormone 1.017 uIU/mL (0.358-3.740)
[2024-06-28 12:46] LABS: HCG Quantitative <1 mIU/mL
[2024-06-28 12:50] LABS: Free T4 0.85 ng/dL (0.76-1.46)
[2024-06-28 12:52] LABS: Estimated Average Glucose 105 mg/dL; Glycohemoglobin A1C 5.3 % (4.5-6.2)
[2024-06-29 04:09] LABS: DHEA-Sulfate 46.8 ug/dL (84.8-378.0); FSH 6.5 mIU/mL (.); Luteinizing Hormone(LH) 3.5 mIU/mL (.)
== END 2024-06-28 11:48 | disposition home or self-care (01) ==
PROVIDERS: PCP Family Medicine; Visit Provider Obstetrics & Gynecology
DX: N93.9 Abnormal uterine and vaginal bleeding, unspecified (principal)
CPT/HCPCS: 36415; 82626; 82627; 83001; 83002; 83036; 84439; 84443; 84702; 85025

== ENCOUNTER 2024-08-15 19:30 | Emergency (ER) | payer BC, SELFPAY ==
--- OUTSIDE RECORDS SUMMARY | 2024-08-15 19:35 | XMS_ITS | CCD ---
Author Organization [facility] Care Team Providers Care Traveling Secretary Name Role Phone LydiaDudley Unavailable Mohini Martinez Unavailable JENNIFER ., DR SILVA Admitting Unavailable JENNIFER ., DR SILVA Attending Unavailable HOY ., DR PERDUE Primary Care Unavailable INGLIS, DR DUDLEY Emanuel Consulting Unavailable JENNIFER ., DR SILVA Consulting Unavailable LEANDRO, JAMIL Admitting Unavailable JAMIL REEVES Attending Unavailable HOY ., DR PERDUE Primary Care Unavailable HOY ., DR PERDUE Consulting Unavailable DUDELY LANE Consulting Unavailable HOY ., DR PERDUE Admitting Unavailable HOY ., DR PERDUE Attending Unavailable HOY ., DR PERDUE Primary Care Unavailable HOY ., DR PERDUE Consulting Unavailable INGLIS, DR DUDLEY Emanuel Consulting Unavailable JENNIFER ., [...] Unavailable Iron Garcia MD Primary Care Provider [phone] RICARDO RODRIGUEZ Attending Unavailable JENNIFER, RICARDO Attending Unavailable JENNIFER, RICARDO Attending Unavailable JENNIFER, RICARDO Attending Unavailable JENNIFER, RICARDO Attending Unavailable JENNIFER, RICARDO Attending Unavailable Medications Current Medications Medication Drug Class(es) Dates Sig (Normalized) Sig (Original) [id number] 200 actuat albuterol 0.09 mg/actuat metered dose [...] Active medroxyPROGESTERone acetate 10 mg oral tablet (5 sources) Progestin Start: 03-01-2024 End: 03-15-2024 take 1 tablet by mouth once daily medroxyPROGESTERone (Provera) 10 MG tablet Indications: Abnormal vaginal bleeding Take 1 tablet (10 mg) by mouth Daily for 14 days 14 tablet 03/01/2024 Active osmotic 24 hr metFORMIN hydrochloride 500 [...] DAILY NEEDED FOR NAUSEA 0 02/19/2023 Active [id number]-[id number] Fum-Folic Ac-Om3 (One A Day Women's Dha) 28 mg iron- 800 mcg combo pack (1 source) Start: 05-22-2023 Amcszf83-Vcph Fum-Folic Ac-Om3 (One A Day Women's Dha) [...] Date Documented Da te Episodic/Chronic Abdominal pain (9 sources) Abdominal pain; Translations: [Unspecified abdominal pain] [...] W/O SM] Onset: 05-04-2022 Chronic Menstrual disorders (11 sources) Amenorrhea, unspecified; Translations: [Irregular menstruation, unspecified] Onset: 11-21-2021 Chronic Other endocrine disorders (6 sources) Hypoglycemia; Translations: [Hypoglycemia, unspecified] Onset: 05-26-2023 [...] Onset: 04-02-2022 Episodic Deficiency and other anemia (6 sources) Anemia; Translations: [Anemia, unspecified] Onset: 05-26-2023 [...] 01-13-2022 Episodic Other and delivery including normal (8 sources) Second trimester ; Translations: [Encounter for supervision of normal , unspecified, second trimester] Onset: 06-13-2023 05-02-2023 Episodic Other upper respiratory infections (4 sources) Acute pharyngitis, unspecified; Translations: [ACUTE PHARYNGITIS UNSPECIFIED] Onset: 01-12-2022 Episodic Polyhydramnios and other problems of amniotic cavity (6 sources) Abnormal amniotic fluid; Translations: [Polyhydramnios, unspecified trimester, not applicable or unspecified] Onset: 05-26-2023 06-13-2023 Episodic Residual codes; unclassified (6 sources) Gestation period, 32 weeks; Translations: [32 weeks gestation of ] Onset: 06-30-2023 06-30-2023 Episodic Unclassified (1 source) CONTACT W/AND (SUSP) EXPOS COVID-19; Translations: [CONTACT W/AND (SUSP) EXPOS COVID-19] Onset: 04-01-2022 Results Test Name Value Interpretation Reference Range Facility ALL CBC WITH AUTO DIFFon BASOPHILS ABSOLUTE AUTO 0 [facility] Basophils/100 WBC (Bld) 0.5 % 0.2 - 2.0 % [facility] Eosinophils/100 WBC (Bld) 2.6 % 0.9 - 7.0 % [facility] Erythrocyte distribution width (RBC) [Ratio] 13.3 % 11.0 - 15.0 % [facility] Hematocrit (Bld) [Volume fraction] 39.2 % 36.0 - 48.0 % [facility] Hemoglobin (Bld) [Mass/Vol] 12.8 g/dL 12.0 - 16.0 g/dL [facility] IMMATURE GRANULOCYTES ABS AUTO 0.02 [facility] Immature granulocytes/100 WBC (Bld) 0.3 % 0.0 - 0.5 % [facility] Interpretation and review of laboratory results Abnormal [facility] LYMPHOCYTES ABSOLUTE AUTO 1.7 [facility] Lymphocytes/100 WBC (Bld) 27.1 % 20.5 - 60.0 % [facility] MCH (RBC) [Entitic mass] 29.4 pg 26. 7 - 34.0 pg [facility] MCHC (RBC) [Mass/Vol] 32.7 g/dL 29.9 - 35.2 g/dL [facility] MCV (RBC) [Entitic vol] 89.9 fL 81.0 - 99.0 fL [facility] MONOCYTES ABSOLUTE AUTO 0.6 [facility] Monocytes/100 WBC (Bld) 9.9 % 1.7 - 12.0 % [facility] NEUTROPHILS ABSOLUTE AUTO 3.7 [facility] Neutrophils/100 WBC (Bld) 59.6 % 43.0 - 75.0 % [facility] Platelet mean volume (Bld) [Entitic vol] 8.9 fL Low 9.5 - 13.5 fL [facility] TBH EO # 0.2 [facility] TB PLT 279 [facility] RBC 4.36 [facility] WBC 6.2 [facility] Laboratory - Microbiology an d Antimicrobial susceptibilityOrdered By: Teresa Wilkins on 05-22-2023 SARS-CoV-2 (COVID-19) RNA SHIRIN+probe Ql (Unsp spec) [facility] Urinalysis macro (dipstick) panel (U)on 05-10-2023 Bilirubin, UA Negative Negative - 4(70) +++ mg/dL [facility] Blood, UA Negative Negative - 50 Jayson/mcL [facility] Clarity, UA Clear [facility] Color, UA Yellow [facility] Glucose, UA Negative Negative - 2000(110) ++++ mg/dL [facility] Interpretation and review of laboratory results Abnormal [facility] Ketones, UA Positive Negative - 160(16) ++++ mg/dL [facility] Comment on above: trace Leukocytes, UA Trace Negative - 500+++ Lolita/mcL [facility] Nitrite, UA Negative Negative - Positive [facility] pH, UA 6.0 5 - 9 [facility] Protein, UA Negative Negative - 2000(20) ++++ mg/dL [facility] Spec Grav, UA 1.030 1 - 1.03 [facility] Urobilinogen, UA 0.2 0.2 - 12 mg/dL [facility] CBC AUTO DIFFon 07-08-2022 BASO # 0.0 103/ul Normal 0.0-0.1 [facility] Comment on above: Performed By: #### R F #### [facility] [address] [place] [address] Dr. Venkat Sloan Basophils/100 WBC (Bld) 0.5 % Normal 0.2-2.0 [facility] Comment on above: Performed By: #### R F #### [facility] [address] [place] [address] Dr. Venkat Sloan EO # 0.1 103/ul Normal 0.0-0.7 [facility] Comment on above: Performed By: #### R F #### [facility] [address] [place] [address] Dr. Venkat Sloan Eosinophils/100 WBC (Bld) 1.7 % Normal 0.9-7.0 [facility] Comment on above: Performed By: #### R F #### [facility] [address] [place] [address] Dr. Venkat Sloan Erythrocyte distribution width (RBC) [Ratio] 12.7 % Normal 11.0-15.0 [facility] Comment on above: Performed By: #### R F #### [facility] [address] [place] [address] Dr. Venkat Sloan Hematocrit (Bld) [Volume fraction] 40.4 % Normal 36.0-48.0 [facility] Comment on above: Performed By: #### R F #### [facility] [address] [place] [address] Dr. Venkat Sloan Hemoglobin (Bld) [Mass/Vol] 13.1 g/dL Normal 12.0-16.0 [facility] Comment on above: Performed By: #### R F #### [facility] [address] [place] [address] Dr. Venkat Sloan IG # 0.02 10e3/ul Normal 0.00-0.03 [facility] Comment on above: Performed By: #### R F #### [facility] [address] [place] [address] Dr. Venkat Sloan IG % 0.3 % Normal 0.0-0.5 [facility] Comment on above: Performed By: #### R F #### [facility] [address] [place] [address] Dr. Venkat Sloan LYMPH # 2.0 103/ul Normal 1.2-3.8 [facility] Comment on above: Performed By: #### R F #### [facility] [address] [place] [address] Dr. Venkat Sloan Lymphocytes/100 WBC (Bld) 26.2 % Normal 20.5-60.0 [facility] Comment on above: Performed By: #### R F #### [facility] [address] [place] [address] Dr. Venkat Sloan MANUAL DIFF REQ NO Normal [facility] Comment on above: Performed By: #### R F #### [facility] [address] [place] [address] Dr. Venkat Sloan MCH (RBC) [Entitic mass] 28.4 pg Normal 26.7-34.0 [facility] Comment on above: Performed By: #### R F #### [facility] [address] [place] [address] Dr. Venkat Sloan MCHC (RBC) [Mass/Vol] 32.4 g/dL Normal 29.9-35.2 [facility] Comment on above: Performed By: #### R F #### [facility] [address] [place] [address] Dr. Venkat Sloan MCV (RBC) [Entitic vol] 87.4 fL Normal 81.0-99.0 [facility] Comment on above: Performed By: #### R F #### [facility] [address] [place] [address] Dr. Venkat Sloan MONO # 0.7 103/ul Normal 0.3-0.8 [facility] Comment on above: Performed By: #### R F #### [facility] [address] [place] [address] Dr. Venkat Sloan Monocytes/100 WBC (Bld) 8.8 % Normal 1.7-12.0 [facility] Comment on above: Performed By: #### R F #### [facility] [address] [place] [address] Dr. Venkat Sloan NEUT # 4.8 103/ul Normal 1.4-6.5 [facility] Comment on above: Performed By: #### R F #### [facility] [address] [place] [address] Dr. Venkat Sloan Neutrophils/100 WBC (Bld) 62.5 % Normal 43.0-75.0 [facility] Comment on above: Performed By: #### R F #### [facility] [address] [place] [address] Dr. Venkat Sloan Platelet mean volume (Bld) [Entitic vol] 8.5 fL Critically low 9.5-13.5 [facility] Comment on above: Performed By: #### R F #### [facility] [address] [place] [address] Dr. Venkat Sloan PLT 331 103/ul Normal 150-450 [facility] Comment on above: Performed By: #### R F #### [facility] [address] [place] [address] Dr. Venkat Sloan RBC 4.62 106/ul Normal 4.20-5.40 [facility] Comment on above: Performed By: #### R F #### [facility] [address] [place] [address] Dr. Venkat Sloan WBC 7.7 103/ul Normal 4.0-11.0 [facility] Comment on above: Performed By: #### R F #### [facility] [address] [place] [address] Dr. Venkat Sloan PREG QUANT HCGon 07-08-2022 HCG QUANT <1 Normal [facility] Comment on above: Performed By: #### P REGQNT #### [facility] [address] [place] [address] Dr. Venkat Sloan HCG RANGE SEE BELOW Normal [facility] Comment on above: Result Comment: 5-50 0.2-1 WEEK 50-500 1-2 WEEKS 100-5,000 2-3 WEEKS 500-10,000 3-4 WEEKS 1,000-50,000 4-5 WEEKS 10,000-100,000 5-6 WEEKS 15,000-200,000 6-8 WEEKS 10,000-100,000 2-3 MONTHS Performed By: #### P REGQNT #### [facility] [address] [place] [address] Dr. Venkat Sloan PROGESTERONEon 06-23-2022 Progesterone 5.7 ng/mL Normal [facility] Comment on above: Result Comment: Foll icular phase 0.1 - 0.9 Luteal phase 1.8 - 23.9 Ovulation phase 0.1 - 12.0 First trimester 11.0 - 44.3 Second trimester 25.4 - 83.3 Third trimester 58.7 - 214.0 Postmenopausal 0.0 - 0.1 Performed By: #### T SH #### [facility] [address] [place] [address] Dr. Venkat Sloan PREG QUANT HCGon 05-31-2022 HCG QUANT 1 mIU/mL Normal [facility] Comment on above: Performed By: #### P REGQNT #### [facility] [address] [place] [address] Dr. Venkat Sloan HCG RANGE SEE BELOW Normal [facility] Comment on above: Result Comment: 5-50 0.2-1 WEEK 50-500 1-2 WEEKS 100-5,000 2-3 WEEKS 500-10,000 3-4 WEEKS 1,000-50,000 4-5 WEEKS 10,000-100,000 5-6 WEEKS 15,000-200,000 6-8 WEEKS 10,000-100,000 2-3 MONTHS Performed By: #### P REGQNT #### [facility] [address] [address] [address] Venkat Sloan PROGESTERONEon 05-21-2022 Progesterone 12.4 ng/mL Normal [facility] Comment on above: Result Comment: Foll icular phase 0.1 - 0.9 Luteal phase 1.8 - 23.9 Ovulation phase 0.1 - 12.0 First trimester 11.0 - 44.3 Second trimester 25.4 - 83.3 Third trimester 58.7 - 214.0 Postmenopausal 0.0 - 0.1 Performed By: #### I NFLUAB #### [facility] [address] [place] [address] Dr. Venkat Sloan MRI BRAIN WO W [...] LAM VELA Date: 2022-05-04 08:42 Normal [facility] PREG QUANT HCGon 05-04-2022 HCG QUANT <1 Normal [facility] Comment on above: Performed By: #### R F #### [facility] [address] [place] [address] Dr. Venkat Sloan HCG RANGE SEE BELOW Normal [facility] Comment on above: Result Comment: 5-50 0.2-1 WEEK 50-500 1-2 WEEKS 100-5,000 2-3 WEEKS 500-10,000 3-4 WEEKS 1,000-50,000 4-5 WEEKS 10,000-100,000 5-6 WEEKS 15,000-200,000 6-8 WEEKS 10,000-100,000 2-3 MONTHS Performed By: #### R F #### [facility] [address] [address] [address] Venkat Sloan XR HYSTEROSALPINGOGRAMon XR HYSTEROSALPINGOGRAM [...] LAM VELA Date: 2022-05-04 16:09 Normal [facility] PROGESTERONEon 04-24-2022 Progesterone 0.4 ng/mL Normal [facility] Comment on above: Result Comment: Foll icular phase 0.1 - 0.9 Luteal phase 1.8 - 23.9 Ovulation phase 0.1 - 12.0 First trimester 11.0 - 44.3 Second trimester 25.4 - 83.3 Third trimester 58.7 - 214.0 Postmenopausal 0.0 - 0.1 Performed By: #### I NFLUAB #### [facility] [address] [place] [address] Dr. Venkat Sloan CULTURE SPUTUMon 04-02-2022 CULTURE SPUTUM Culture Observations : NORMAL RESPIRATORY NATALEE. Normal [facility] Comment on above: Performed By: #### R F #### [facility] [address] [place] [address] Dr. Venkat Sloan SPUTUM GRAM STAINon 04-02-19 COMMENTS Normal [facility] Comment on above: Performed By: #### R F #### [facility] [address] [address] [address] Venkat Sloan DIPHTHEROIDS Normal [facility] Comment on above: Performed By: #### R F #### [facility] [address] [place] [address] Dr. Venkat Sloan EPITHELIALS <25 Normal [facility] Comment on above: Performed By: #### R F #### [facility] [address] [address] [address] Venkat Sloan FUNGAL ELEMENTS Normal [facility] Comment on above: Performed By: #### R F #### [facility] [address] [place] [address] Dr. Venkat Sloan GRAM NEG BACILLI RARE Normal [facility] Comment on above: Performed By: #### R F #### [facility] [address] [place] [address] Dr. Venkat Sloan GRAM NEG DIPPLOCOCCI Normal [facility] Comment on above: Performed By: #### R F #### [facility] [address] [address] [address] Venkat Sloan GRAM POS BACILLI Normal [facility] Comment on above: Performed By: #### R F #### [facility] [address] [place] [address] Dr. Venkat Sloan GRAM POSITIVE COCCI RARE Normal [facility] Comment on above: Performed By: #### R F #### [facility] [address] [place] [address] Dr. Venkat Sloan WBC (Bld) [#/Vol] 10*3/uL Normal [facility] Comment on above: Performed By: #### R F #### [facility] [address] [place] [address] Dr. Venkat Sloan Covid-19 PCR (CVDTB)on SARS-CoV-2 (COVID-19) RNA SHIRIN+probe Ql (Unsp spec) Not detected Normal NOT DETECTED [facility] Comment on above: Result Comment: This test is not yet approved or cleared by the [place] FDA. When there are no FDA-approved or cleared tests available, and other criteria are met, FDA can make tests available under an emergency access mechanism called an Emergency Use Authorization (EUA). The EUA for this test is supported by the [employer] of Health and Human Service's (HHS's) declaration [...] SARS-CoV-2. Performed By: #### P REGQNT #### [facility] [address] [place] [address] Dr. Venkat Sloan INFLUENZA A AND B AGon 04-01 [facility] SEE BELOW Normal [facility] Comment on above: Result Comment: Nega tive for Flu A protein angiten. Infection due to Flu A cannot be ruled out. Flu A angiten in the sample may be below the detection limit of the test. Performed By: #### I NFLUAB #### [facility] [address] [place] [address] Dr. Venkat [facility] Normal [facility] Comment on above: Result Comment: Nega tive for Flu B protein antigen. Infection due to Flu B cannot be ruled out. Flu B antigen in the sample may be below the detection limit of the test. Performed By: #### I NFLUAB #### [facility] [address] [place] [address] Dr. Venkat Sloan INFLUENZA A AG Negative Normal NEGATIVE SEE COMMENT [facility] Comment on above: Performed By: #### I NFLUAB #### [facility] [address] [place] [address] Dr. Venkat Sloan INFLUENZA B AG Negative Normal NEGATIVE SEE COMMENT [facility] Comment on above: Performed By: #### I NFLUAB #### [facility] [address] [address] [address] Venkat Sloan XR CHEST 2 Von [...] [address] Date: 2022-03-24 12:33 Normal [facility] SARS-CoV-2 (COVID-19) RNA SHIRIN+probe Ql (Unsp spec) Not detected Normal NOT DETECTED [facility] Comment on above: [...] for this test is supported by the [employer] of Health and Human Service's declaration that [...] used). Performed By: #### R F #### [facility] [address] [address] [address] Venkat Sloan INFLUENZA A AND B AGon 03-15 [facility] SEE BELOW Normal [facility] Comment on above: Result Comment: Nega tive for Flu A protein angiten. Infection due to Flu A cannot be ruled out. Flu A angiten in the sample may be below the detection limit of the test. Performed By: #### I NFLUAB #### [facility] [address] [address] [address] Venkat Sloan INFLUBNEGH SEE BELOW Normal [facility] Comment on above: Result Comment: Nega tive for Flu B protein antigen. Infection due to Flu B cannot be ruled out. Flu B antigen in the sample may be below the detection limit of the test. Performed By: #### I NFLUAB #### [facility] [address] [place] [address] Dr. Venkat Sloan INFLUENZA A AG Negative Normal NEGATIVE SEE COMMENT [facility] Comment on above: Performed By: #### I NFLUAB #### [facility] [address] [place] [address] Dr. Venkat Sloan INFLUENZA B AG Negative Normal NEGATIVE SEE COMMENT [facility] Comment on above: Performed By: #### I NFLUAB #### [facility] [address] [place] [address] Dr. Venkat Sloan INTERNAL CONTROLS Within Normal Limits Normal Wi thin Normal Limits [facility] Comment on above: Performed By: #### I NFLUAB #### [facility] [address] [place] [address] Dr. Venkat Sloan [facility]-25 SARS-CoV-2 (COVID-19) RNA SHIRIN+probe Ql (Unsp spec) Not detected Normal NOT DETECTED [facility] Comment on above: [...] for this test is supported by the [employer] of Health and Human Service's declaration that [...] used). Performed By: #### I NFLUAB #### [facility] [address] [place] [address] Dr. Venkat Sloan INFLUENZA A AND B AGon 03-12 [facility] SEE BELOW Normal [facility] Comment on above: Result Comment: Nega tive for Flu A protein angiten. Infection due to Flu A cannot be ruled out. Flu A angiten in the sample may be below the detection limit of the test. Performed By: #### I NFLUAB #### [facility] [address] [place] [address] Dr. Venkat Sloan [facility] BEL[facility] Normal [facility] Comment on above: Result Comment: Nega tive for Flu B protein antigen. Infection due to Flu B cannot be ruled out. Flu B antigen in the sample may be below the detection limit of the test. Performed By: #### I NFLUAB #### [facility] [address] [place] [address] Dr. Venkat Sloan INFLUENZA A AG Negative Normal NEGATIVE SEE COMMENT [facility] Comment on above: Performed By: #### I NFLUAB #### [facility] [address] [place] [address] Dr. Venkat Sloan INFLUENZA B AG Negative Normal NEGATIVE SEE COMMENT [facility] Comment on above: Performed By: #### I NFLUAB #### [facility] [address] [place] [address] Dr. Venkat Sloan INTERNAL CONTROLS Within Normal Limits Normal Wi thin Normal Limits [facility] Comment on above: Performed By: #### I NFLUAB #### [facility] [address] [place] [address] Dr. Venkat Sloan PROGESTERONEon 02-20-2022 Progesterone 0.3 ng/mL Normal [facility] Comment on above: Result Comment: Foll icular phase 0.1 - 0.9 Luteal phase 1.8 - 23.9 Ovulation phase 0.1 - 12.0 First trimester 11.0 - 44.3 Second trimester 25.4 - 83.3 Third trimester 58.7 - 214.0 Postmenopausal 0.0 - 0.1 Performed By: #### R F #### [facility] [address] [place], [place] [address] Dr. Venkat Sloan ACTH STIMULATIONon 2 Andros Baseline 49 ng/dL Normal 41-[address] [facility] Comment on above: Performed By: #### R F #### [facility] [address] [place], [place] [address] Dr. Venkat Sloan Andros Stimulated 82 ng/dL Normal Not Estab. [facility] Comment on above: Performed By: #### R F #### [facility] [address] [place], [place] [address] Dr. Venkat Sloan Covid-19 PCR ([facility])on 01-26 SARS-CoV-2 (COVID-19) RNA SHIRIN+probe Ql (Unsp spec) Not detected Normal NOT DETECTED [facility] Comment on above: Result Comment: This test is not yet approved or cleared by the [place] FDA. When there are no FDA-approved or cleared tests available, and other criteria are met, FDA can make tests available under an emergency access mechanism called an Emergency Use Authorization (EUA). The EUA for this test is supported by the [employer] of Health and Human Service's (HHS's) declaration [...] SARS-CoV-2. Performed By: #### I NFLUAB #### [facility] [address] [address] [address] Venkat Sloan INFLUENZA A AND B AGon 02-10 INFL[facility]ANE[facility] SEE BELOW Normal [facility] Comment on above: Result Comment: Nega tive for Flu A protein angiten. Infection due to Flu A cannot be ruled out. Flu A angiten in the sample may be below the detection limit of the test. Performed By: #### P REGQNT #### [facility] [address] [address] [address] Venkat Sloan [facility] SEE BELOW Normal [facility] Comment on above: Result Comment: Nega tive for Flu B protein antigen. Infection due to Flu B cannot be ruled out. Flu B antigen in the sample may be below the detection limit of the test. Performed By: #### P REGQNT #### [facility] [address] [address] [address] Venkat Sloan INFLUENZA A AG Negative Normal NEGATIVE SEE COMMENT [facility] Comment on above: Performed By: #### P REGQNT #### [facility] [address] [address] [address] Venkat Sloan INFLUENZA B AG Negative Normal NEGATIVE SEE COMMENT [facility] Comment on above: Performed By: #### P REGQNT #### [facility] [address] [place] [address] Dr. Venkat Sloan INTERNAL CONTROLS Within Normal Limits Normal Wi thin Normal Limits [facility] Comment on above: Performed By: #### P REGQNT #### [facility] [address] [address] [address] Venkat Sloan DHEA SERUMon 01-19-2022 Dehydroepiandrosterone (DHEA) 82 ng/dL Normal 31-701 [facility] Comment on above: [...] 701 Performed By: #### T SH #### [facility] [address] [place], [place] [address] Dr. Venkat Sloan DHEA-SULFATEon 01-14-2022 DHEA-Sulfate 34.0 ug/dL Critically low 84.8-378.0 [facility] Comment on above: Performed By: #### R F #### [facility] [address] [address] [address] Venkat Sloan FSHon 01-14-2022 FSH 2.2 mIU/mL Normal [facility] Comment on above: Result Comment: Adul t Female: Follicular phase 3.5 - 12.5 Ovulation phase 4.7 - 21.5 Luteal phase 1.7 - 7.7 Postmenopausal 25.8 - 134.8 Performed By: #### L [facility] #### [facility] [address] [place] [address] Dr. Venkat Sloan LUTEINIZING HORMONE (LH)on LH 5.1 mIU/mL Normal [facility] Comment on above: Result Comment: Adul t Female: Follicular phase 2.4 - 12.6 Ovulation phase 14.0 - 95.6 Luteal phase 1.0 - 11.4 Postmenopausal 7.7 - 58.5 Performed By: #### I NFLUAB #### [facility] [address] [place] [address] Dr. Venkat Sloan PROLACTINon 01-14-2022 Prolactin 8.0 ng/mL Normal 4.8-23.3 [facility] Comment on above: Performed By: #### P ROLAC #### [facility] [address] [place] [address] Dr. Venkat Sloan CBC AUTO DIFFon 01-13-2022 BASO # 0.0 103/ul Normal 0.0-0.1 [facility] Comment on above: Performed By: #### T SH #### [facility] [address] [place] [address] Dr. Venkat Sloan Basophils/100 WBC (Bld) 0.4 % Normal 0.2-2.0 [facility] Comment on above: Performed By: #### T SH #### [facility] [address] [place] [address] Dr. Venkat Sloan EO # 0.1 103/ul Normal 0.0-0.7 [facility] Comment on above: Performed By: #### T SH #### [facility] [address] [place] [address] Dr. Venkat Sloan Eosinophils/100 WBC (Bld) 1.2 % Normal 0.9-7.0 [facility] Comment on above: Performed By: #### T SH #### [facility] [address] [place] [address] Dr. Venkat Sloan Erythrocyte distribution width (RBC) [Ratio] 12.7 % Normal 11.0-15.0 [facility] Comment on above: Performed By: #### T SH #### [facility] [address] [place] [address] Dr. Venkat Sloan Hematocrit (Bld) [Volume fraction] 41.1 % Normal 36.0-48.0 [facility] Comment on above: Performed By: #### T SH #### [facility] [address] [place] [address] Dr. Venkat Sloan Hemoglobin (Bld) [Mass/Vol] 13.1 g/dL Normal 12.0-16.0 [facility] Comment on above: Performed By: #### T SH #### [facility] [address] [place] [address] Dr. Venkat Sloan IG # 0.03 10e3/ul Normal 0.00-0.03 [facility] Comment on above: Performed By: #### T SH #### [facility] [address] [place] [address] Dr. Venkat Sloan IG % 0.3 % Normal 0.0-0.5 [facility] Comment on above: Performed By: #### T SH #### [facility] [address] [place] [address] Dr. Venkat Sloan LYMPH # 1.6 103/ul Normal 1.2-3.8 [facility] Comment on above: Performed By: #### T SH #### [facility] [address] [place] [address] Dr. Venkat Sloan Lymphocytes/100 WBC (Bld) 15.0 % Critically low 20.5-60.0 [facility] Comment on above: Performed By: #### T SH #### [facility] [address] [place] [address] Dr. Venkat Sloan MANUAL DIFF REQ NO Normal The [facility] Comment on above: Performed By: #### T SH #### [facility] [address] [place] [address] Dr. Venkat Sloan MCH (RBC) [Entitic mass] 28.5 pg Normal 26.7-34.0 [facility] Comment on above: Performed By: #### T SH #### [facility] [address] [place] [address] Dr. Venkat Sloan MCHC (RBC) [Mass/Vol] 31.9 g/dL Normal 29.9-35.2 [facility] Comment on above: Performed By: #### T SH #### [facility] [address] [place] [address] Dr. Venkat Sloan MCV (RBC) [Entitic vol] 89.3 fL Normal 81.0-99.0 [facility] Comment on above: Performed By: #### T SH #### [facility] [address] [place] [address] Dr. Venkat Sloan MONO # 0.9 103/ul Critically high 0.3-0.8 [facility] Comment on above: Performed By: #### T SH #### [facility] [address] [place] [address] Dr. Venkat Sloan Monocytes/100 WBC (Bld) 8.8 % Normal 1.7-12.0 [facility] Comment on above: Performed By: #### T SH #### [facility] [address] [place] [address] Dr. Venkat Sloan NEUT # 7.9 103/ul Critically high 1.4-6.5 [facility] Comment on above: Performed By: #### T SH #### [facility] [address] [place] [address] Dr. Venkat Sloan Neutrophils/100 WBC (Bld) 74.3 % Normal 43.0-75.0 [facility] Comment on above: Performed By: #### T SH #### [facility] [address] [place] [address] Dr. Venkat Sloan Platelet mean volume (Bld) [Entitic vol] 9.2 fL Critically low 9.5-13.5 [facility] Comment on above: Performed By: #### T SH #### [facility] [address] [address] [address] Venkat Sloan PLT 300 103/ul Normal 150-450 [facility] Comment on above: Performed By: #### T SH #### [facility] [address] [place] [address] Dr. Venkat Sloan RBC 4.60 106/ul Normal 4.20-5.40 [facility] Comment on above: Performed By: #### T SH #### [facility] [address] [place] [address] Dr. Venkat Sloan WBC 10.7 103/ul Normal 4.0-11.0 [facility] Comment on above: Performed By: #### T SH #### [facility] [address] [place] [address] Dr. Venkat Sloan GLYCOHEMOGLOBIN A1Con 2021 ADA RECOMMENDATION SEE BELOW Normal [facility] Comment on above: Result Comment: ADA RECOMMENDED LIMIT 4.0 - 6.0 ADA THERAPEUTIC TARGET < 7.0 ACTION SUGGESTED > 7.0 Performed By: #### P REGQNT #### [facility] [address] [place] [address] Dr. Venkat Sloan Glucose [Mass/Vol] 100 mg/dL Normal [facility] Comment on above: Performed By: #### P REGQNT #### [facility] [address] [place] [address] Dr. eVnkat Sloan HbA1c (Bld) [Mass fraction] 5.1 % Normal 4.5-6.2 [facility] Comment on above: Performed By: #### P REGQNT #### [facility] [address] [place] [address] Dr. Venkat Sloan TSHon 01-13-2022 TSH 1.098 uIU/mL Normal 0.358-3.740 [facility] Comment on above: Performed By: #### T SH #### [facility] [address] [place] [address] Dr. Venkat Sloan [facility]26 SARS-CoV-2 (COVID-19) RNA SHIRIN+probe Ql (Unsp spec) Not detected Normal NOT DETECTED [facility] Comment on above: Result Comment: This test is not yet approved or cleared by the [place] FDA. When there are no FDA-approved or cleared tests available, and other criteria are met, FDA can make tests available under an emergency access mechanism called an Emergency Use Authorization (EUA). The EUA for this test is supported by the [employer] of Health and Human Service's (HHS's) declaration [...] SARS-CoV-2. Performed By: #### I NFLUAB #### [facility] [address] [place] [address] Dr. Venkat Sloan PREG QUANT HCGon 12-24-2021 HCG QUANT <1 Normal [facility] Comment on above: Performed By: #### P REGQNT #### [facility] [address] [place] [address] Dr. Venkat Sloan HCG RANGE SEE BELOW Normal [facility] Comment on above: Result Comment: 5-50 0.2-1 WEEK 50-500 1-2 WEEKS 100-5,000 2-3 WEEKS 500-10,000 3-4 WEEKS 1,000-50,000 4-5 WEEKS 10,000-100,000 5-6 WEEKS 15,000-200,000 6-8 WEEKS 10,000-100,000 2-3 MONTHS Performed By: #### P REGQNT #### [facility] [address] [place] [address] Dr. Venkat Sloan HCG-BETA SUBUNIT QUANTon hCG,Beta Subunit,Qnt,Serum <1 Normal [facility] Comment on above: Result Comment: Fema le (Non-) 0 - 5 (Postmenopausal) 0 - 8 . Female () Weeks of Gestation 3 6 - 71 4 10 - 750 5 407 - 2387 6 967 - 72165 7 [id number] 8 53058 -[phone] 9 24247 -350101 10 10843 -[phone] 12 24590 -[phone] 14 14778 - 89416 15 35301 - 17043 16 8632 - 19031 17 5066 - 14120 18 3363 - [phone] Aj ECLIA methodology Performed By: #### T SH #### [facility] [address] [place] [address] Dr. Venkat Sloan BRETT by IFAon 09-29-2021 Antinuclear Antibodies, IFA Negative Normal [facility] Comment on above: Result Comment: Nega tive <1:80 Borderline 1:80 Positive >1:80 ICAP nomenclature: AC-0 For more information about Hep-2 cell patterns use ANApatterns.org, the official website for the International Consensus on Antinuclear Antibody (BRETT) Patterns (ICAP). Performed By: #### A NAIFA #### [facility] [address] [place] [address] Dr. Venkat Sloan INSULINon 09-29-2021 Insulin 11.1 uIU/mL Normal 2.6-24.9 [facility] Comment on above: Performed By: #### T SH #### [facility] [address] [address] [address] Venkat Sloan ANTISTREPTOLYSIN O AB (ASO)o n 09-27-2021 Antistreptolysin O Ab <20.0 Normal 0.0-200.0 [facility] Comment on above: Performed By: #### P REGQNT #### [facility] [address] [address] [address] Venkat Sloan RHEUMATOID FACTORon 09-28-19 22 RA Latex Turbid. <10.0 Normal <14.0 [facility] Comment on above: Performed By: #### R F #### [facility] [address] [address] [address] Venkat Sloan CBC AUTO DIFFon 09-26-2021 BASO # 0.0 103/ul Normal 0.0-0.1 [facility] Comment on above: Performed By: #### T SH #### [facility] [address] [place] [address] Dr. Venkat Sloan Basophils/100 WBC (Bld) 0.3 % Normal 0.2-2.0 [facility] Comment on above: Performed By: #### T SH #### [facility] [address] [place] [address] Dr. Venkat Sloan EO # 0.1 103/ul Normal 0.0-0.7 [facility] Comment on above: Performed By: #### T SH #### [facility] [address] [place] [address] Dr. Venkat Sloan Eosinophils/100 WBC (Bld) 1.8 % Normal 0.9-7.0 [facility] Comment on above: Performed By: #### T SH #### [facility] [address] [place] [address] Dr. Venkat Sloan Erythrocyte distribution width (RBC) [Ratio] 12.9 % Normal 11.0-15.0 [facility] Comment on above: Performed By: #### T SH #### [facility] [address] [place] [address] Dr. Venkat Sloan Hematocrit (Bld) [Volume fraction] 39.8 % Normal 36.0-48.0 [facility] Comment on above: Performed By: #### T SH #### [facility] [address] [place] [address] Dr. Venkat Sloan Hemoglobin (Bld) [Mass/Vol] 12.7 g/dL Normal 12.0-16.0 [facility] Comment on above: Performed By: #### T SH #### [facility] [address] [place] [address] Dr. Venkat Sloan IG # 0.02 10e3/ul Normal 0.00-0.03 [facility] Comment on above: Performed By: #### T SH #### [facility] [address] [place] [address] Dr. Venkat Sloan IG % 0.3 % Normal 0.0-0.5 [facility] Comment on above: Performed By: #### T SH #### [facility] [address] [place] [address] Dr. Venkat Sloan LYMPH # 1.5 103/ul Normal 1.2-3.8 [facility] Comment on above: Performed By: #### T SH #### [facility] [address] [place] [address] Dr. Venkat Sloan Lymphocytes/100 WBC (Bld) 21.5 % Normal 20.5-60.0 [facility] Comment on above: Performed By: #### T SH #### [facility] [address] [place] [address] Dr. Venkat Sloan MANUAL DIFF REQ NO Normal [facility] Comment on above: Performed By: #### T SH #### [facility] [address] [place] [address] Dr. Venkat Sloan MCH (RBC) [Entitic mass] 28.5 pg Normal 26.7-34.0 [facility] Comment on above: Performed By: #### T SH #### [facility] [address] [place] [address] Dr. Venkat Sloan MCHC (RBC) [Mass/Vol] 31.9 g/dL Normal 29.9-35.2 [facility] Comment on above: Performed By: #### T SH #### [facility] [address] [place] [address] Dr. Venkat Sloan MCV (RBC) [Entitic vol] 89.2 fL Normal 81.0-99.0 [facility] Comment on above: Performed By: #### T SH #### [facility] [address] [place] [address] Dr. Venkat Sloan MONO # 0.5 103/ul Normal 0.3-0.8 [facility] Comment on above: Performed By: #### T SH #### [facility] [address] [place] [address] Dr. Venkat Sloan Monocytes/100 WBC (Bld) 7.6 % Normal 1.7-12.0 [facility] Comment on above: Performed By: #### T SH #### [facility] [address] [place] [address] Dr. Venkat Sloan NEUT # 4.9 103/ul Normal 1.4-6.5 [facility] Comment on above: Performed By: #### T SH #### [facility] [address] [place] [address] Dr. Venkat Sloan Neutrophils/100 WBC (Bld) 68.5 % Normal 43.0-75.0 [facility] Comment on above: Performed By: #### T SH #### [facility] [address] [place] [address] Dr. Venkat Sloan Platelet mean volume (Bld) [Entitic vol] 8.8 fL Critically low 9.5-13.5 [facility] Comment on above: Performed By: #### T SH #### [facility] [address] [place] [address] Dr. Venkat Sloan PLT 297 103/ul Normal 150-450 [facility] Comment on above: Performed By: #### T SH #### [facility] [address] [place] [address] Dr. Venkat Sloan RBC 4.46 106/ul Normal 4.20-5.40 [facility] Comment on above: Performed By: #### T SH #### [facility] [address] [place] [address] Dr. Venkat Sloan WBC 7.1 103/ul Normal 4.0-11.0 [facility] Comment on above: Performed By: #### T SH #### [facility] [address] [place] [address] Dr. Venkat Sloan CRPon 09-26-2021 CRP [Mass/Vol] mg/L Normal <=1.0 [facility] Comment on above: Performed By: #### P REGQNT #### [facility] [address] [place] [address] Dr. Venkat Sloan FREE THYROXINE INDEX T7on FTI 2.71 Normal 1.30-4.50 [facility] Comment on above: Performed By: #### P REGQNT #### [facility] [address] [address] [address] Venkat Sloan T3U 33.0 % Normal 30.0-39.0 [facility] Comment on above: Performed By: #### P REGQNT #### [facility] [address] [address] [address] Venkat Sloan T4 [Mass/Vol] 8.20 ug/dL Normal 4.80-13.90 [facility] Comment on above: Performed By: #### P REGQNT #### [facility] [address] [address] [address] Venkat Sloan GLYCOHEMOGLOBIN A1Con 2021 ADA RECOMMENDATION SEE BELOW Normal [facility] Comment on above: Result Comment: ADA RECOMMENDED LIMIT 4.0 - 6.0 ADA THERAPEUTIC TARGET < 7.0 ACTION SUGGESTED > 7.0 Performed By: #### I NFLUAB #### [facility] [address] [address] [address] Venkat Sloan Glucose [Mass/Vol] 105 mg/dL Normal [facility] Comment on above: Performed By: #### I NFLUAB #### [facility] [address] [address] [address] Venkat Sloan HbA1c (Bld) [Mass fraction] 5.3 % Normal 4.5-6.2 [facility] Comment on above: Performed By: #### I NFLUAB #### [facility] [address] [address] [address] Venkat Sloan IRONon 09-26-2021 Iron [Mass/Vol] 49.0 ug/dL Critically low 50.0-170.0 [facility] Comment on above: Performed By: #### P REGQNT #### [facility] [address] [place] [address] Dr. Venkat Sloan LIPID PROFILEon 09-26-2021 CHOL-HDL RATIO NORM SEE BELOW Normal [facility] Comment on above: Result Comment: 3.3 - 4.4 LOW RISK 4.4 - 7.1 AVERAGE RISK 7.1 - 11.0 MODERATE RISK >11.0 HIGH RISK Performed By: #### P REGQNT #### [facility] [address] [address] [address] Venkat Sloan Cholesterol [Mass/Vol] 197 mg/dL Normal <=200 [facility] Comment on above: Performed By: #### P REGQNT #### [facility] [address] [address] [address] Venkat Sloan Cholesterol in HDL [Mass/Vol] 64 mg/dL Critically high 40-60 [facility] Comment on above: Performed By: #### P REGQNT #### [facility] [address] [address] [address] Venkat Sloan Cholesterol in LDL [Mass/Vol] 123.4 mg/dL Normal [facility] Comment on above: Performed By: #### P REGQNT #### [facility] [address] [place] [address] Dr. Venkat Sloan Cholesterol.total/Choles terol in HDL [Mass ratio] 3.1 {ratio} Normal [facility] Comment on above: Performed By: #### P REGQNT #### [facility] [address] [place] [address] Dr. Venkat Sloan HDL NORMAL > or = 60 mg/dl - LO W CARDIOVASCULAR RISK <40 mg/dl - HIGH CARDIOVASCULAR RISK Normal [facility] Comment on above: Performed By: #### P REGQNT #### [facility] [address] [place] [address] Dr. Venkat Sloan LDL CALC NORMAL SEE BELOW Normal [facility] Comment on above: Result Comment: <100 mg/dl OPTIMAL 100 - 129 mg/dl NEAR OR ABOVE OPTIMAL 130 - 159 mg/dl BORDERLINE HIGH 160 - 189 mg/dl HIGH >190 mg/dl VERY HIGH Performed By: #### P REGQNT #### [facility] [address] [place] [address] Dr. Venkat Sloan Triglyceride [Mass/Vol] 48 mg/dL Normal <=150 T [facility] Comment on above: Performed By: #### P REGQNT #### [facility] [address] [place] [address] Dr. Venkat Sloan VLDL CALC 9.6 mg/dL Normal [facility] Comment on above: Performed By: #### P REGQNT #### [facility] [address] [address] [address] Venkat Sloan PROF 14(COMP METB)on 022 Albumin [Mass/Vol] 4.0 g/dL Normal 3.4-5.0 [facility] Comment on above: Performed By: #### I NFLUAB #### [facility] [address] [place] [address] Dr. Venkat Sloan Albumin/Globulin [Mass ratio] 1.3 {ratio} Normal [facility] Comment on above: Performed By: #### I NFLUAB #### [facility] [address] [place] [address] Dr. Venkat Sloan ALP [Catalytic activity/Vol] 58 U/L Normal 46-116 [facility] Comment on above: Performed By: #### I NFLUAB #### [facility] [address] [place] [address] Dr. Venkat Sloan ALT [Catalytic activity/Vol] 20 U/L Normal 14-59 [facility] Comment on above: Performed By: #### I NFLUAB #### [facility] [address] [place] [address] Dr. Venkat Sloan Anion gap [Moles/Vol] 10.4 mmol/L Normal [facility] Comment on above: Performed By: #### I NFLUAB #### [facility] [address] [place] [address] Dr. Venkat Sloan AST [Catalytic activity/Vol] 11 U/L Critically low 15-37 [facility] Comment on above: Performed By: #### I NFLUAB #### [facility] [address] [place] [address] Dr. Venkat Sloan Bilirubin [Mass/Vol] 0.8 mg/dL Normal 0.2-1.0 [facility] Comment on above: Performed By: #### I NFLUAB #### [facility] [address] [address] [address] Venkat Sloan Calcium [Mass/Vol] 9.0 mg/dL Normal 8.5-10.[address] [facility] Comment on above: Performed By: #### I NFLUAB #### [facility] [address] [address] [address] Venkat Sloan Chloride [Moles/Vol] 106 mmol/L Normal 98-107 [facility] Comment on above: Performed By: #### I NFLUAB #### [facility] [address] [address] [address] Venkat Sloan CO2 [Moles/Vol] 27.0 mmol/L Normal 21.0-32.0 [facility] Comment on above: Performed By: #### I NFLUAB #### [facility] [address] [place] [address] Dr. Venkat Sloan Creatinine [Mass/Vol] 0.70 mg/dL Normal 0.55-1.02 [facility] Comment on above: Performed By: #### I NFLUAB #### [facility] [address] [address] [address] Venkat Sloan EGFR-AF [place] >60 Normal >=60 [facility] Comment on above: Performed By: #### I NFLUAB #### [facility] [address] [place] [address] Dr. Venkat Sloan EGFR-NON AF [place] >60 Normal >=60 [facility] Comment on above: Performed By: #### I NFLUAB #### [facility] [address] [place] [address] Dr. Venkat Sloan Globulin (S) [Mass/Vol] 3.2 g/dL Normal [facility] Comment on above: Performed By: #### I NFLUAB #### [facility] [address] [address] [address] Venkat Sloan Glucose [Mass/Vol] 92 mg/dL Normal 74-[address] [facility] Comment on above: Performed By: #### I NFLUAB #### [facility] [address] [place] [address] Dr. Venkat Sloan Potassium [Moles/Vol] 4.4 mmol/L Normal 3.5-5.1 [facility] Comment on above: Performed By: #### I NFLUAB #### [facility] [address] [address] [address] Venkat Sloan Protein [Mass/Vol] 7.2 g/dL Normal 6.4-8.2 [facility] Comment on above: Performed By: #### I NFLUAB #### [facility] [address] [place] [address] Dr. Venkat Sloan Sodium [Moles/Vol] 139 mmol/L Normal 136-145 [facility] Comment on above: Performed By: #### I NFLUAB #### [facility] [address] [place] [address] Dr. Venkat Sloan Urea nitrogen [Mass/Vol] 13.0 mg/dL Normal 7.0-18.0 [facility] Comment on above: Performed By: #### I NFLUAB #### [facility] [address] [place] [address] Dr. Venkat Sloan Urea nitrogen/Creatinine [Mass ratio] 18.6 mg/mg Normal [facility] Comment on above: Performed By: #### I NFLUAB #### [facility] [address] [place] [address] Dr. Venkat Sloan TSHon 09-26-2021 TSH 1.318 uIU/mL Normal 0.358-3.740 [facility] Comment on above: Performed By: #### P REGQNT #### [facility] [address] [place] [address] Dr. Venkat Sloan URIC ACID SERUMon 09-26-2021 Urate [Mass/Vol] 3.9 mg/dL Normal 2.6-6.0 [facility] Comment on above: Performed By: #### P REGQNT #### [facility] [address] [place] [address] Dr. Venkat Sloan XR CSPINE MIN 4 [...] DUDLEY HERNÁNDEZ Date: 2021-09-24 21:16 Normal [facility] PREG QUANT HCGon 08-17-2021 HCG QUANT <1 Normal [facility] Comment on above: Performed By: #### I NFLUAB #### [facility] [address] [address] [address] Venkat Sloan HCG RANGE SEE BELOW Normal [facility] Comment on above: Result Comment: 5-50 0-1 WEEK 40-300 1-2 WEEKS 100-1,000 2-3 WEEKS 500-6,000 3-4 WEEKS 5,000-200,000 1-2 MONTHS 10,000-100,000 2-3 MONTHS 3,000-50,000 2ND TRIMESTER 1,000-50,000 3RD TRIMESTER Performed By: #### I NFLUAB #### [facility] [address] [address] [address] Venkat Sloan US PELVIS AND TRANSVAGon [...] by: DUDLEY HERNÁNDEZ Date: 2021-08-17 07:01 Normal [facility] COVID Quick Testingon 2020 Result Negative [employer] Other Vital Signs Date Time Vital Sign Value Performing Clinician Facility 07-19-2024 12:02-0400 Body mass index (BMI) [Ratio] 27.78 kg/m2 Ricardo Jennifer DO Work Phone: [facility] 07-19-2024 12:02-040 Body weight 66.68 kg Ricardo Jennifer DO Work Phone: [facility] 07-19-2024 12:02-0400 Diastolic blood pressure 70 mm[Hg] Ricardo Jennifer DO Work Phone: [facility] 07-19-2024 12:02-0400 Systolic blood pressure 116 mm[Hg] Ricardo Jennifer DO Work Phone: [facility] 05-22-2023 09:27-0500 Body height 154.94 cm [facility] 05-22-2023 09:27-0500 Body mass index (BMI) [Ratio] 30.8 kg/m2 [facility] 05-22-2023 09:27-0500 Body temperature 98.1 [degF] [facility] 05-22-2023 09:27-0500 Body weight 74.04 kg [facility] 05-22-2023 09:27-0500 Heart rate 78 /min [facility] 05-22-2023 09:27-0500 Respiratory rate 16 /min [facility] 05-22-2023 09:27-0500 SaO2% (BldA) [Mass fraction] 98 % [facility] 05-10-2023 15:14-0500 Body mass index (BMI) [Ratio] 30.04 kg/m2 Ricardo Jennifer DO Work Phone: [facility] 05-10-2023 15:14-0500 Body weight 72.12 kg Ricardo Jennifer DO Work Phone: [facility] 05-10-2023 15:14-0500 Diastolic blood pressure 70 mm[Hg] Ricardo Jennifer DO Work Phone: [facility] [employer] 05-10-2023 15:14-0500 Systolic blood pressure 110 mm[Hg] Ricardo Jennifer DO Work Phone: [facility] 01-27-2021 18:45-0400 Body height 154.94 cm Mohini Martinez Other [employer] Other 01-27-2021 18:45-0400 Body mass index (BMI) [Ratio] 28.34 kg/m2 Mohini Martinez Other [employer] Other 01-27-2021 18:45-0400 Body temperature 96.4 [degF] Mohini Martinez Other [employer] Other 01-27-2021 18:45-0400 Body weight 68.04 kg Mohini Martinez Other [employer] Other 01-27-2021 18:45-0400 Respiratory rate 18 /min Mohini Martinez Other [employer] Other 01-27-2021 18:45-0400 SaO2% (BldA) [Mass fraction] 99 % Mohini Martinez Other [employer] Other 12-22-2020 11:45-0400 Body height 154.94 cm Dudley Freeman Other [employer] Other 12-22-2020 11:45-0400 Body mass index (BMI) [Ratio] 28.34 kg/m2 Dudley Freeman Other [employer] Other 12-22-2020 11:45-0400 Body weight 68.04 kg Dudley Freeman Other [facility] [employer] Other Encounters Encounter Date Encounter Type Care Provider Facility Start: 07-19-2024 End: 07-19-2024 Office outpatient visit 15 minutes Ricardo Jennifer DO Work Phone: [facility] Comment on above: Irregular periods/me nstrual cycles; Pelvic pain in female Start: 07-19-2024 End: 07-19-2024 ambulatory RICARDO JENNIFER Not Available Start: 06-28-2024 End: 06-28-2024 Clinisync Result Encounter Ricardo Jennifer DO Work Phone: [facility] Unsolicited Start: 06-28-2024 End: 06-28-2024 Clinisync Result Encounter Ricardo Jennifer DO Work Phone: [facility] Unsolicited Start: 03-01-2024 End: 03-01-2024 Bamboo flowsheet Ricardo Jennifer DO Work Phone: [facility] Start: 03-01-2024 End: 03-01-2024 Bamboo flowsheet Ricardo Jennifer DO Work Phone: [facility] Start: 03-01-2024 End: 03-01-2024 Office outpatient visit 15 minutes Ricardo Jennifer DO Work Phone: [facility] Comment on above: Abnormal vaginal ble eding; PCOS (polycystic ovarian syndrome) Start: 03-01-2024 End: 03-01-2024 ambulatory RICARDO JENNIFER Not Available Start: 09-26-2023 End: 09-26-2023 ambulatory RICARDO JENNIFER Not Available Start: 08-11-2023 End: 08-11-2023 ambulatory RICARDO JENNIFER Not Available Start: 08-04-2023 End: 08-04-2023 ambulatory RICARDO JENNIFER Not Available Start: 07-28-2023 End: 07-28-2023 ambulatory RICARDO JENNIFER Not Available Start: 05-22-2023 End: 05-22-2023 ambulatory [facility] Work Phone: Start: 05-22-2023 End: 05-22-2023 Patient encounter procedure [facility] Work Phone: Start: 05-10-2023 End: 05-10-2023 flow sheet Ricardo Rodriguez DO Work Phone: [facility] Comment on above: Second trimester pre gnancy; Diabetes mellitus screening Start: 07-09-2022 Encounter for other preprocedural examination DR RICARDO RODRIGUEZ . [facility] Start: 07-08-2022 End: 07-08-2022 ambulatory [...] abnormal findings DR IRON GARCIA . [facility] Start: 09-26-2021 End: 09-27-2021 ambulatory [...] 01-27-2021 End: 01-27-2021 ambulatory Mohini Martinez Other [employer] Other Start: 01-27-2021 Office outpatient vi sit 15 minutes Mohini Martinez [facility] Start: 12-22-2020 Office outpatient ne w 45 minutes Dudley Freeman [facility] Gastroenterology Procedures Date Procedure Procedure Detail Performing Clinician Start: 06-28-2024 ALL CBC WITH AUTO DIFF Ricardo Rodriguez DO Work Phone: Start: 05-22-2023 POC COVID/FLU/RSV Start: 05-10-2023 Urnls dip stick/tabl et rgnt non-auto w/o micrscp Ricardo Jennifer DO Work Phone: Start: 03-15-2023 Microscopic observat ion [Identifier] in Cervix by Cyto stain Ricardo Jennifer DO Work Phone: Plan of Treatment Date Care Activity Detail Author Start: 03-15-2026 Screening for malign ant neoplasm of cervix [facility] Start: 11-26-2024 Influenza vaccination Influenz a Vaccine (Season Ended) [facility] Start: 05-24-2024 End: 05-24-2024 Patient encounter procedure 05/24/2024 8:30 AM EST Office Visit [facility] [address] [place] [address] Ricardo Rodriguez, DO [address] [place] [address] [place] [address] [facility] Start: 03-01-2024 End: 03-01-2025 CBC W Auto Differential panel - Blood CBC and differential Lab Routine Abnormal vaginal bleeding Expected: 03/01/2024 (Approximate), Expires: 03/01/2025 [facility] Comment on above: Expected: 03/01/2024 (Approximate), Expires: 03/01/2025 Start: 03-01-2024 End: 03-01-2025 DHEA DHEA Lab Routine Abnormal vaginal bleeding Expected: 03/01/2024, Expires: 03/01/2025 [facility] Comment on above: Expected: 03/01/2024 , Expires: 03/01/2025 Start: 03-01-2024 End: 03-01-2025 DHEA-sulfate DHEA-sulfate Lab Routine Abnormal vaginal bleeding Expected: 03/01/2024 (Approximate), Expires: 03/01/2025 [facility] Comment on above: Expected: 03/01/2024 (Approximate), Expires: 03/01/2025 Start: 03-01-2024 End: 03-01-2025 Follicle stimulating hormone Follicle stimulating hormone Lab Routine Abnormal vaginal bleeding Expected: 03/01/2024 (Approximate), Expires: 03/01/2025 [facility] Comment on above: Expected: 03/01/2024 (Approximate), Expires: 03/01/2025 Start: 03-01-2024 End: 03-01-2025 hCG, quantitative, hCG, quantitative, Lab Routine Abnormal vaginal bleeding Expected: 03/01/2024 (Approximate), Expires: 03/01/2025 [facility] Work Phone: Comment on above: Expected: 03/01/2024 (Approximate), Expires: 03/01/2025 Start: 03-01-2024 End: 03-01-2025 Hemoglobin A1c/Hemoglobin.total in Blood Hemoglobin A1c Lab Routine Abnormal vaginal bleeding Expected: 03/01/2024 (Approximate), Expires: 03/01/2025 [facility] Comment on above: Expected: 03/01/2024 (Approximate), Expires: 03/01/2025 Start: 03-01-2024 End: 03-01-2025 Luteinizing hormone Luteinizing hormone Lab Routine Abnormal vaginal bleeding Expected: 03/01/2024 (Approximate), Expires: 03/01/2025 [facility] Comment on above: Expected: 03/01/2024 (Approximate), Expires: 03/01/2025 Start: 03-01-2024 End: 03-01-2025 Thyrotropin [Units/volume] in Serum or Plasma TSH Lab Routine Abnormal vaginal bleeding Expected: 03/01/2024 (Approximate), Expires: 03/01/2025 [facility] Comment on above: Expected: 03/01/2024 (Approximate), Expires: 03/01/2025 Start: 03-01-2024 End: 03-01-2025 Thyroxine (T4) free [Mass/volume] in Serum or Plasma T4, free Lab Routine Abnormal vaginal bleeding Expected: 03/01/2024 (Approximate), Expires: 03/01/2025 [facility] Comment on above: Expected: 03/01/2024 (Approximate), Expires: 03/01/2025 Start: 03-01-2024 End: 03-01-2025 US for US PELVIS-TRANSVAG IF INDICATED Imaging Routine Abnormal vaginal bleeding Expected: 03/01/2024 (Approximate), Expires: 03/01/2025 [facility] Comment on above: Expected: 03/01/2024 (Approximate), Expires: 03/01/2025 Start: 03-01-2024 End: 03-01-2024 Patient encounter procedure 03/01/2024 11:10 AM EST Office Visit [facility] [address] [id number] Ricardo Rodriguez, DO [address] [place], [place] [id number] Arrived [facility] Comment on above: Arrived Start: 12-05-2023 Screening for malign ant neoplasm of cervix HPV/Cotest [facility] Start: 11-27-2023 Influenza vaccination Influenza Vacc ine (#1) [facility] Start: 05-26-2023 End: 05-26-2023 Patient encounter procedure 05/26/2023 9:50 AM EST Routine [facility] [address] [address] Ricardo Rodriguez, DO [address] [place], [place] [id number] [facility] Start: 05-10-2023 End: 05-10-2024 CBC panel - Blood by Automated count CBC Lab Routine Diabetes mellitus screening Expected: 05/10/2023 (Approximate), Expires: 05/10/2024 [facility] Work Phone: Comment on above: Expected: 05/10/2023 (Approximate), Expires: 05/10/2024 Start: 05-10-2023 End: 05-10-2024 Measurement of glucose 1 hour after glucose challenge for glucose tolerance test Glucose tolerance, 1 hour Lab Routine Diabetes mellitus screening Expected: 05/10/2023 (Approximate), Expires: 05/10/2024 [facility] Comment on above: Expected: 05/10/2023 (Approximate), Expires: 05/10/2024 Start: 11-26-2022 Influenza vaccination Influenza Vacc ine (#1) [facility] Immunizations Immunization Date Immunization Notes Care Provider Frankie munoz 01-25-2022 influenza virus vacc ine, unspecified formulation Ricardo Rodriguez DO Work Phone: [facility] Payers Date Payer Category Payer Unknown [id number] 2022 Blue Cross Blue Shield [id number] 2022 Unknown BCBS BCBS [id number] [id number] 2022-Present [phone] [address] [place] [address] [id number]. [id number] 1993 Unknown [id number] 2.16.840.1.000570.3.579.2.59 3 1993 Unknown [id number] 2.16.840.1.069383.3.579.2.59 3 1993 Unknown [id number] 2.16.840.1.452221.3.579.2.59 3 1993 Unknown [id number] 2.16.840.1.347129.3.579.2.59 3 1993 Unknown [id number] 2.16.840.1.872352.3.579.2.59 3 1993 Unknown [id number] 2.16.840.1.229639.3.579.2.59 3 1993 Unknown [id number] 2.16.840.1.216856.3.579.2.59 3 1993 Unknown [id number] 2.16.840.1.328606.3.579.2.59 3 1993 Unknown [id number] 2.16.840.1.113468.3.579.2.59 3 1993 Unknown [id number] 2.16.840.1.416367.3.579.2.59 3 1993 Unknown [id number] 2.16.840.1.859982.3.579.2.59 3 1993 Unknown [id number] 2.16.840.1.841162.3.579.2.59 3 1993 Unknown [id number] 2.16.840.1.795815.3.579.2.59 3 1993 Unknown [id number] 2.16.840.1.492628.3.579.2.59 3 1993 Unknown [id number] 2.16.840.1.371916.3.579.2.59 3 1993 Unknown [id number] 2.16.840.1.001301.3.579.2.59 3 1993 Unknown [id number] 2.16.840.1.543797.3.579.2.59 3 1993 Unknown [id number] 2.16.840.1.996896.3.579.2.59 3 1993 Unknown [id number] 2.16.840.1.772363.3.579.2.59 3 1993 Unknown [id number] 2.16.840.1.360705.3.579.2.59 3 1993 Unknown [id number] 2.16.840.1.674454.3.579.2.59 3 1993 Unknown [id number] 2.16.840.1.711378.3.579.2.59 3 1993 Unknown [id number] 2.16.840.1.419870.3.579.2.59 3 1993 Unknown [id number] 2.16.840.1.565207.3.579.2.59 3 1993 Unknown [id number] 2.16.840.1.615240.3.579.2.59 3 1993 Unknown [id number] 2.16.840.1.507348.3.579.2.12 59 1993 Unknown [id number] 2.16.840.1.769088.3.579.2.12 59 1993 Unknown [id number] 2.16.840.1.075151.3.579.2.12 59 1993 Unknown [id number] 2.16.840.1.954398.3.579.2.12 59 1993 Unknown [id number] 2.16.840.1.978740.3.579.2.12 59 1993 Unknown [id number] 2.16.840.1.404584.3.579.2.12 59 1959 Unknown [id number] 1959 Unknown [id number] Self-pay Self Pay [id number] Unknown [id number] 2.16.840.1.557881.19 Unknown O [id number] Unknown [place] BC/BS [id number] Social History Date Type Detail Facility Unknown if ever smoked [employer] Other Start: 01-28-2023 End: 03-15-2023 Sex Assigned At [employer] Other Start: 01-28-2023 End: 05-22-2023 Tobacco smoking status NHIS Never smoked tobacco [facility] Start: 05-10-2023 End: 03-01-2024 Alcohol intake Current drinker of alcohol (finding) [facility] Start: 01-28-2023 End: 03-15-2023 History of Social function [facility] How often to you hav e a drink containing alcohol? 2-4 times a month [facility] How many standard drinks containing alcohol do you have on a typical day? 1 or 2 [facility] How often do you hav e 6 or more drinks on 1 occasion? Weekly [facility] Start: 01-28-2023 Alcohol Comment caffeine: occasional [facility] Start: 11-26-2022 [facility] Start: 1995 Sex Assigned At Female [facility] Start: 11-22-2022 Gender identity Identifies as female gender (finding) [facility] Start: 11-22-2022 Sexual orientation Heterosexual (finding) [facility] Clinical Notes 12-22-2020 to 07-19-2024 Abiagil Guzman, [facility] - 07/19/2024 11:40 AM Mallorie Guzman, [employer] [facility] [employer] - 03/01/2024 11:10 AM Sosa Thornton, [facility] - 05/10/2023 2:50 PM EST Note Date & Type Note Facility 07-19-2024 History of Present illness Narrative Reason for Appointment: Patient ID: Kasandra Macias is a 28 y.o. female who presents for irregular cycles Patient presents today for Consult appointment. MEDICATIONS [...] Systems: Review of Systems Genitourinary: Positive for pelvic pain and vaginal bleeding. All other systems reviewed and [...] nursing note reviewed. Exam conducted with a regulatory analyst present. Vitals: Estimated body mass index is 27.78 kg/m as calculated from the following: Height as of 11/23/22: 5' 1 . Weight as of this encounter: 147 lb. BP: 116/70 No LMP recorded. ASSESSMENT & PLAN ICD-10-CM 1. Irregular periods/menstrual cycles N92.6 2. Pelvic pain in female R10.2 Patient presents today to discuss irregular cycles and pelvic pain. Patient voiced that since delivery she has had irregular cycles and sometimes this last 3 weeks. Discussed workup and/or control. Patient voiced that she may desire more childbearing. With that being stated surgical management is not discussed at this time. Patient will think about possible IUD, but also offered Slynd. Patient does not desire the hormones and samples of Tyblume given for 1 month. Patient will reach out to office if she desires any further management and if Tyblume did not help reset cycles. Patient will also ensure that she is scheduled for annual. Patient just had labs drawn and reviewed with patient. Patient given 3 samples of Tyblume Lot:[id number] Exp: 02/19 Documented by Abigail Guzman LPN on behalf of: Ricardo Rodriguez DO documented in this encounter [facility] 03-01-2024 History of Present illness Narrative Reason for Appointment: Patient ID: [...] nursing note reviewed. Exam conducted with a regulatory analyst present. Vitals: Estimated body mass index is 30.44 kg/m as calculated from the following: Height as of 8/29/23: 5' 1 . Weight as of 09/26/23: [...] Ricardo Rodriguez DO documented in this encounter [facility] 05-10-2023 History of Present illness Narrative Reason for Appointment: Patient ID: [...] nursing note reviewed. Exam conducted with a regulatory analyst present. Vitals: Estimated body mass index is [...] Ricardo Rodriguez DO documented in this encounter [facility] 07-08-2022 Note OPERATIVE NOTE OPERATION DATE: 07/08/2022 PROCEDURE: Diagnostic laparoscopy with fulguration of ovarian endometrial implant. PREOPERATIVE DIAGNOSIS: Pelvic pain. POSTOPERATIVE DIAGNOSIS: Pelvic pain. ANESTHESIA: General. SURGEON: Ricardo Rodriguez D.O. CNA HOSPICE: [facility] URINE OUTPUT: Yellow and clear. [...] to Recovery Room in stable condition. [facility] 12-22-2020 Evaluation note Encounter Date Diagnosis Assessment Notes Nov, Irritable bowel syndrome with both constipation and diarrhea (ICD-10 - K58.2) LABS INDICATED ABOVE START TRIAL OF DICYCLOMINE 20 BID RTO 4 WEEKS [employer] Other Evaluation noteNort [employer] Other Evaluation note* Diagnosis Second trimester state, incidental Diabetes mellitus screening Screening for diabetes mellitus documented in this encounter [facility] Work Phone: Evaluation note* Diagnosis Abnormal vaginal bleeding Other specified noninflammatory disorder of vagina PCOS (polycystic ovarian syndrome) Polycystic ovaries documented in this [facility]* Diagnosis Irregular periods/menstrual cycles Pelvic pain in female Unspecified symptom associated with female genital organs documented in this encounter [facility] Narrative - Reported* Type Description Date Medical History anxiety/depression Medical History IBS Surgical History TONSILLECTOMY [facility] [employer] Other History general [facility] - [facility] [employer] Other Summary Purpose Family History Relationship Condition [...] Routine Visit Reason Comments continuous vaginal bleeding Reason Comments irregular cycles INFORMATION SOURCE (unrecogn ized section and content) DATE CREATED AUTHOR 07/13/2022 [facility] DATE CREATED AUTHOR AUTHOR'S ORGANIZ ATION 07/20/2024 [facility] Care Teams (unrecognized sec tion and content) Traveling Secretary Relationship Specialty Start Date End Date Iron Garcia MD [address] [place] [address] PCP - General Family Medicine 11/23/22 Team Status: Active Member Role Status Dates Iron Garcia MD Primary Care Provider Active Team Status: Inactive Member Role Status Dates Iron Garcia MD Primary Care Provider Active Start: May 22, 2023 End: May 22, 2023 Teresa Wilkins APRN Attending Provider Active Start: May 22, 2023 End: May 22, 2023 Traveling Secretary Relationship Specialty Start Date End Date Iron Garcia MD [address] [place] [address] PCP - General Family Medicine 11/23/22 Traveling Secretary Relationship Specialty Start Date End Date Iron Garcia MD [address] [place] [address] PCP - General Family Medicine 11/23/22 Traveling Secretary Relationship Specialty Start Date End Date Iron Garcia MD [address] [place] [address] PCP - General Family Medicine 11/23/22 Traveling Secretary Relationship Specialty Start Date End Date Iron Garcia MD [address] [place] [address] PCP - General Family Medicine 11/23/22 Goals [...] BE BASED ON THE PRIMARY CLINICAL RECORDS. [facility] [employer] [facility]. provides no warranty or guarantee of the accuracy or completeness of information in this document.
[2024-08-15 19:49] VITALS: BP 121/89; PULSE 65; TEMP 36.6; O2SAT 99; BMI 26.5
--- NOTE | 2024-08-15 19:59 | US_ITS ---
The [address] [address] Patient Name: ESTER BRADFORD MRN: [facility]:[id number] date: 1995 Sex: F Assigned Patient Location: ER Current Patient Location: ER Accession/Order Number: [id number] Exam Date: 08/15/2024 21:29 Report Date: 08/15/2024 21:34 At the request of: EVERARDO VALENTINE NP Procedure: US pelvis transvaginal TRANSVAGINAL PELVIC ULTRASOUND HISTORY: Lower abdominal pain. FINDINGS: The uterus measures 8.1 x 4.1 x 5.8 cm. No uterine lesion identified. The endometrium has a total combined thickness of 4mm. The RIGHT ovary measures 5.0 x 4.5 x 4.1 cm. Resistive index 0.59. There is complex cystic area of the right ovary measuring up to 4 cm. Multiple thin septations. LEFT ovary measures 2.5 x 1.5 x 1.8 cm resistive index 0.46 Bilateral ovarian blood flow identified. No free fluid identified. There is no adnexal mass identified. US/US pelvis transvaginal IMPRESSION: 4 cm complex right ovarian cyst. Color flow of both ovaries. Unremarkable uterus and endometrial complex. Impression dictated by: Cody Eugnee M.D. 08/15/2024 9:34 PM Dictation Location: [place] [address] Electronically authenticated by: [id number] Date: 08/15/2024 21:34
[2024-08-15 20:05] LABS: Bilirubin Urine NEGATIVE (NEGATIVE); Blood Urine NEGATIVE (NEGATIVE); Clarity Urine CLEAR (CLEAR); Color Urine YELLOW (YELLOW); Glucose Urine UA NEGATIVE (NEGATIVE); Ketones Urine TRACE mg/dL (NEGATIVE); Leukocyte Esterase Urine NEGATIVE (NEGATIVE); Nitrite Urine NEGATIVE (NEGATIVE); Protein Urine TRACE mg/dL (NEG/TRACE); pH Urine 6.5 (5.0-9.0)
[2024-08-15 20:06] LABS: HCG Qualitative Urine* NEGATIVE (NEGATIVE); Internal Control Within Normal Limits
[2024-08-15 20:07] LABS: Urine Microscopic Indicated YES
--- NOTE | 2024-08-15 20:11 | ED.GENADUL1 ---
Documented by User: Marvin Rothman NP 08/15/24 21:36 HPI HPI - General Adult General Chief complaint: Abdominal Pain Stated complaint: ABDOMINAL PAIN, NAUSEA Time Seen by Provider: 08/15/24 19:55 Source: patient Mode of arrival: walk-in Limitations: no limitations History of Present Illness HPI narrative: The patient is a 28-year-old female with a significant history of endometriosis who presents to the emergency department today for evaluation concerns for lower abdominal/suprapubic pain. She endorses the pain began today and reports that to feel like menstrual like cramping with radiation of pain to her back and upper legs. She denies any menstrual bleeding or vaginal discharge. She does endorse some nausea without vomiting. No sick symptoms of fever/chills. Additionally no urinary symptoms or back/flank pain. She reports irregular periods however does not believe she is . Again she reports a significant history of endometriosis and reports 2 with most recent 2 years prior. Related Data Allergies Allergy/AdvReac Type Severity Reaction Status Date / Time No Known Drug Allergies Allergy Verified 08/15/24 19:55 Opioid HPI Opioid Management Most Recent Opioid Data: Last Pain Scale 5 Today, 20:26 Last MAR Pain Assessment Today, 20:26 Ur Phencyclidine Scrn, (NEGATIVE) Negative 08/12/23, 00:15 Review of Systems ROS Status of ROS 10 or more systems reviewed and unremarkable except as noted in history and below PFSH [facility] Medical History (Updated 08/15/24 @ 21:57 by Hannah David MD) Encounter for assessment ?Z39.2 - Encounter for routine follow-up (ICD-10) History of hysterosalpingogram ?Z98.890 - Other specified postprocedural states (ICD-10) Depression ?F32.A - Depression, unspecified (ICD-10) Anxiety ?F41.9 - Anxiety disorder, unspecified (ICD-10) Asthma ?J45.909 - Unspecified asthma, uncomplicated (ICD-10) Polyhydramnios ?O40.9XX0 - Polyhydramnios, unspecified trimester, not applicable or unspecified (ICD-10) Miscarriage ?O03.9 - Complete or unspecified spontaneous without complication (ICD-10) Endometriosis ?N80.9 - Endometriosis, unspecified (ICD-10) Surgical History (Updated 05/17/24 @ 03:47 by Robin Bloom) Hx of tonsillectomy ?Z90.89 - Acquired absence of other organs (ICD-10) Family History (Updated 08/12/23 @ 00:44 by Robin Bloom) Grandmother Family history of myocardial infarction Family history of cancer Family history of CHF (congestive heart failure) Family history of diabetes mellitus Family history of hypertension Mother Family history of cancer Grandfather Family history of cancer Family history of diabetes mellitus Family history of hypertension Social History (Updated 08/12/23 @ 03:39 by Robin Bloom) Within the past year, how often did you have a drink containing alcohol: never Within the past year, how often did you have six or more drinks on one occasion: never Score interpretation: A score less than 3 is consistent with normal alcohol consumption. Smoking status: Never smoker Non-prescribed substance use: denies use Highest level of school completed/degree received: Associate degree: occupational, technical, vocational program Are you now , , , , never or living with a partner: In a typical week, how many times do you talk on the telephone with family, friends, or neighbors: 3 or more times per week How often do you get together with friends or relatives: 3 or more times per week Little interest or pleasure in doing things: not at all Feeling down, depressed, or hopeless: not at all Feel stressed/tense/nervous/anxious/difficulty sleeping: only a little Do you think of yourself as: straight/heterosexual Gender Identity: female Exam Narrative Exam Narrative: Constituational: Awake/ alert, no apparent distress, well hydrated HENMT: normocephalic, external ears normal, moist oral mucous membranes and oropharynx normal Eyes: EOMI and conjunctivae normal Neck: ROM intact Chest: inspection of chest normal Respiratory: Normal respiratory effort, clear to auscultation bilaterally Cardio: regular rate and regular rhythm GI: + Discomfort palpation over suprapubic region, abdomen is otherwise soft to palpation and non-tender Back: + Discomfort to lower lumbar region MSK: ROM intact, +NVI Skin: no rashes or petechiae Neuro: no focal deficits Psych: mental status grossly normal Constitutional Vital Signs, click to edit/add: Last Vital Signs Temp 97.9 F 08/15/24 19:49 Pulse 60 08/15/24 21:47 Resp 14 08/15/24 21:47 BP 115/76 08/15/24 21:47 Pulse Ox 98 08/15/24 21:47 O2 Del Method Room Air 08/15/24 21:47 Course Vital Signs Vital signs: Vital Signs Temperature 97.9 F 08/15/24 19:49 Pulse Rate 65 08/15/24 19:49 Respiratory Rate 18 08/15/24 19:49 Blood Pressure 121/89 08/15/24 19:49 Pulse Oximetry 99 08/15/24 19:49 Oxygen Delivery Method Room Air 08/15/24 19:49 Temperature 97.9 F 08/15/24 19:49 Pulse Rate 60 08/15/24 21:47 Respiratory Rate 14 08/15/24 21:47 Blood Pressure 115/76 08/15/24 21:47 Pulse Oximetry 98 08/15/24 21:47 Oxygen Delivery Method Room Air 08/15/24 21:47 Medical Decision Making MDM Narrative Medical decision making narrative: The patient is a nontoxic and well-appearing 28-year-old female who presented to the emergency department today for evaluation of concerns for lower abdominal pain. Initial examination vital signs overall stable with exception to reported pain to mostly suprapubic region. Otherwise no acute abdominal findings on exam. Labs stable and showed no significant leukocytosis, anemia, thrombocytopenia. Electrolytes including renal and hepatic function stable. Normal lipase. UA negative for UTI and hCG negative. Pelvic/transvaginal ultrasound pain and care endorsed to oncoming ER provider Dr. David [id number] follow-up with pending imaging results and further determine disposition of patient. Medical Records Medical records reviewed: Yes I reviewed the patient's medical records Lab Data Lab results reviewed: Yes I reviewed the patient's lab results Labs: Lab Results 08/15/24 08/15/24 Range/Units 20:02 20:12 WBC 10.1 (4.0-11.0) 10^3/uL RBC 4.30 (4.20-5.40) 10^6/uL Hgb 12.8 (12.0-16.0) g/dL Hct 38.6 (36.0-48.0) % MCV 89.8 (81.0-99.0) fL MCH 29.8 (26.7-34.0) pg MCHC 33.2 (29.9-35.2) g/dL RDW 13.2 (11.0-15.0) % Plt Count 319 (150-450) 10^3/uL MPV 9.4 L (9.5-13.5) fL Neut % (Auto) 62.1 (43.0-75.0) % Lymph % (Auto) 25.6 (20.5-60.0) % [place] % (Auto) 10.0 (1.7-12.0) % Eos % (Auto) 1.7 (0.9-7.0) % Baso % (Auto) 0.3 (0.2-2.0) % Neut # (Auto) 6.3 (1.4-6.5) 10^3/uL Lymph # (Auto) 2.6 (1.2-3.8) 10^3/uL [place] # (Auto) 1.0 H (0.3-0.8) 10^3/uL Eos # (Auto) 0.2 (0.0-0.7) 10^3/uL Baso # (Auto) 0.0 (0.0-0.1) 10^3/uL Abs Immat Gran (auto) 0.03 (0.00-0.03) 10^3/uL Imm/Tot Granulo (auto) 0.3 (0.0-0.5) % Sodium 140 (136-145) mmol/L Potassium 4.2 (3.5-5.1) mmol/L Chloride 108 H (98-107) mmol/L Carbon Dioxide 27.4 (21.0-32.0) mmol/L Anion Gap 8.8 BUN 28.0 H (7.0-18.0) mg/dL Creatinine 0.64 (0.55-1.02) mg/dL Est GFR ( Amer) >60 (>=60 mL/min/1.73m^2) Est GFR (Non-Af Amer) >60 (>=60 mL/min/1.73m^2) BUN/Creatinine Ratio 43.8 Glucose 96 (74-106) mg/dL Calcium 8.9 (8.5-10.1) mg/dL Total Bilirubin 0.8 (0.2-1.0) mg/dL AST 12 L (15-37) U/L ALT 20 (14-59) U/L Alkaline Phosphatase 83 (46-116) U/L Total Protein 6.6 (6.4-8.2) g/dL Albumin 3.6 (3.4-5.0) g/dL Globulin 3.0 g/dL Albumin/Globulin Ratio 1.2 Lipase 26.0 (16.0-77.0) U/L Urine Color Yellow (YELLOW) Urine Clarity Clear (CLEAR) Urine pH 6.5 (5.0-9.0) Ur Specific [place] 1.020 (1.005-1.025) Urine Protein Trace (NEG/TRACE) mg/dL Urine Glucose (UA) Negative (NEGATIVE) mg/dL Urine Ketones Trace A (NEGATIVE) mg/dL Urine Occult Blood Negative (NEGATIVE) Urine Nitrite Negative (NEGATIVE) Urine Bilirubin Negative (NEGATIVE) Urine Urobilinogen 1.0 (0.2-1.0) EU/dL Ur Leukocyte Esterase Negative (NEGATIVE) Urine RBC None seen (0-2) #/HPF Urine WBC 0-2 A (NONE SEEN) #/HPF Ur Squamous Epith Cells Many A (NONE/RARE) #/LPF Urine Crystals None seen (None Seen) #/HPF Urine Bacteria Small A (NONE SEEN) #/HPF Urine Casts None seen (NONE SEEN) #/LPF Urine Mucus None seen (NONE SEEN) Ur Culture Indicated? Yes-[facility] [place] Urine HCG, Qual Negative (NEGATIVE) Imaging Data Transvaginal/ Pelvic US: Radiologist's impression: ITS Impressions Transvaginal US 08/15/24 19:59 IMPRESSION: 4 cm complex right ovarian cyst. Color flow of both ovaries. Unremarkable uterus and endometrial complex. Impression dictated by: Cody Eugene M.D. 08/15/2024 9:34 PM Dictation Location: [facility] Electronically authenticated by: [id number] Y Date: 08/15/2024 21:34 Discharge Plan Discharge Chief Complaint: Abdominal Pain Clinical Impression: Abdominal pain, Ovarian cyst Patient Disposition: Home, Self-Care Time of Disposition Decision: 21:56 Condition: Good Print Language: Angolan Instructions: Ovarian Cyst (ED), Heat Pack Application (ED) Referrals: Wisam Rodriguez DO [Physician, [facility]] - 1 week Erik Garcia MD [Primary Care Provider, Family Practice] - 1 week Documented by User: Hannah David MD 08/15/24 21:57 HPI HPI - General Adult General Chief complaint: Abdominal Pain Stated complaint: ABDOMINAL PAIN, NAUSEA Time Seen by Provider: 08/15/24 19:55 Related Data Allergies Allergy/AdvReac Type Severity Reaction Status Date / Time No Known Drug Allergies Allergy Verified 08/15/24 19:55 Opioid HPI Opioid Management Most Recent Opioid Data: Last Pain Scale 5 Today, 20:26 Last MAR Pain Assessment Today, 20:26 Ur Phencyclidine Scrn, (NEGATIVE) Negative 08/12/23, 00:15 PFSH PFSH Medical History (Updated 08/15/24 @ 21:57 by Hannah David MD) Encounter for assessment ?Z39.2 - Encounter for routine follow-up (ICD-10) History of hysterosalpingogram ?Z98.890 - Other specified postprocedural states (ICD-10) Depression ?F32.A - Depression, unspecified (ICD-10) Anxiety ?F41.9 - Anxiety disorder, unspecified (ICD-10) Asthma ?J45.909 - Unspecified asthma, uncomplicated (ICD-10) Polyhydramnios ?O40.9XX0 - Polyhydramnios, unspecified trimester, not applicable or unspecified (ICD-10) Miscarriage ?O03.9 - Complete or unspecified spontaneous without complication (ICD-10) Endometriosis ?N80.9 - Endometriosis, unspecified (ICD-10) Surgical History (Updated 08/12/23 @ 03:47 by Robin Bloom) Hx of tonsillectomy ?Z90.89 - Acquired absence of other organs (ICD-10) Family History (Updated 08/12/23 @ 00:44 by Robin Bloom) Grandmother Family history of myocardial infarction Family history of cancer Family history of CHF (congestive heart failure) Family history of diabetes mellitus Family history of hypertension Mother Family history of cancer Grandfather Family history of cancer Family history of diabetes mellitus Family history of hypertension Social History (Updated 08/12/23 @ 03:39 by Robin Bloom) Within the past year, how often did you have a drink containing alcohol: never Within the past year, how often did you have six or more drinks on one occasion: never Score interpretation: A score less than 3 is consistent with normal alcohol consumption. Smoking status: Never smoker Non-prescribed substance use: denies use Highest level of school completed/degree received: Associate degree: occupational, technical, vocational program Are you now , , , , never or living with a partner: In a typical week, how many times do you talk on the telephone with family, friends, or neighbors: 3 or more times per week How often do you get together with friends or relatives: 3 or more times per week Little interest or pleasure in doing things: not at all Feeling down, depressed, or hopeless: not at all Feel stressed/tense/nervous/anxious/difficulty sleeping: only a little Do you think of yourself as: straight/heterosexual Gender Identity: female Exam Constitutional Vital Signs, click to edit/add: Last Vital Signs Temp 97.9 F 08/15/24 19:49 Pulse 60 08/15/24 21:47 Resp 14 08/15/24 21:47 BP 115/76 08/15/24 21:47 Pulse Ox 98 08/15/24 21:47 O2 Del Method Room Air 08/15/24 21:47 Course Vital Signs Vital signs: Vital Signs Temperature 97.9 F 08/15/24 19:49 Pulse Rate 65 08/15/24 19:49 Respiratory Rate 18 08/15/24 19:49 Blood Pressure 121/89 08/15/24 19:49 Pulse Oximetry 99 08/15/24 19:49 Oxygen Delivery Method Room Air 08/15/24 19:49 Temperature 97.9 F 08/15/24 19:49 Pulse Rate 60 08/15/24 21:47 Respiratory Rate 14 08/15/24 21:47 Blood Pressure 115/76 08/15/24 21:47 Pulse Oximetry 98 08/15/24 21:47 Oxygen Delivery Method Room Air 08/15/24 21:47 Medical Decision Making MDM Narrative Medical decision making narrative: The patient is a nontoxic and well-appearing 28-year-old female who presented to the emergency department today for evaluation of concerns for lower abdominal pain. Initial examination vital signs overall stable with exception to reported pain to mostly suprapubic region. Otherwise no acute abdominal findings on exam. Labs stable and showed no significant leukocytosis, anemia, thrombocytopenia. Electrolytes including renal and hepatic function stable. Normal lipase. UA negative for UTI and hCG negative. Pelvic/transvaginal ultrasound pain and care endorsed to oncoming ER provider Dr. Frankie middleton follow-up with pending imaging results and further determine disposition of patient. Transvaginal ultrasound shows a 4 cm right ovarian cyst with normal blood flow. The remainder of the ultrasound was normal. The results of the ultrasound was discussed with the patient and her mother. She has had ovarian cyst in the past and follows up with Dr. Rodriguez. She is grateful that there is no sign of any torsion at this time. Her pain is under control at this time. She was agreeable to taking home 2 [place] to use as needed for pain and additionally she has ibuprofen to use. She has Zofran at home. She was encouraged to follow-up closely with Dr. Rodriguez. Lab Data Labs: Lab Results 08/15/24 08/15/24 Range/Units 20:02 20:12 WBC 10.1 (4.0-11.0) 10^3/uL RBC 4.30 (4.20-5.40) 10^6/uL Hgb 12.8 (12.0-16.0) g/dL Hct 38.6 (36.0-48.0) % MCV 89.8 (81.0-99.0) fL MCH 29.8 (26.7-34.0) pg MCHC 33.2 (29.9-35.2) g/dL RDW 13.2 (11.0-15.0) % Plt Count 319 (150-450) 10^3/uL MPV 9.4 L (9.5-13.5) fL Neut % (Auto) 62.1 (43.0-75.0) % Lymph % (Auto) 25.6 (20.5-60.0) % [place] % (Auto) 10.0 (1.7-12.0) % Eos % (Auto) 1.7 (0.9-7.0) % Baso % (Auto) 0.3 (0.2-2.0) % Neut # (Auto) 6.3 (1.4-6.5) 10^3/uL Lymph # (Auto) 2.6 (1.2-3.8) 10^3/uL [place] # (Auto) 1.0 H (0.3-0.8) 10^3/uL Eos # (Auto) 0.2 (0.0-0.7) 10^3/uL Baso # (Auto) 0.0 (0.0-0.1) 10^3/uL Abs Immat Gran (auto) 0.03 (0.00-0.03) 10^3/uL Imm/Tot Granulo (auto) 0.3 (0.0-0.5) % Sodium 140 (136-145) mmol/L Potassium 4.2 (3.5-5.1) mmol/L Chloride 108 H (98-107) mmol/L Carbon Dioxide 27.4 (21.0-32.0) mmol/L Anion Gap 8.8 BUN 28.0 H (7.0-18.0) mg/dL Creatinine 0.64 (0.55-1.02) mg/dL Est GFR ( Amer) >60 (>=60 mL/min/1.73m^2) Est GFR (Non-Af Amer) >60 (>=60 mL/min/1.73m^2) BUN/Creatinine Ratio 43.8 Glucose 96 (74-106) mg/dL Calcium 8.9 (8.5-10.1) mg/dL Total Bilirubin 0.8 (0.2-1.0) mg/dL AST 12 L (15-37) U/L ALT 20 (14-59) U/L Alkaline Phosphatase 83 (46-116) U/L Total Protein 6.6 (6.4-8.2) g/dL Albumin 3.6 (3.4-5.0) g/dL Globulin 3.0 g/dL Albumin/Globulin Ratio 1.2 Lipase 26.0 (16.0-77.0) U/L Urine Color Yellow (YELLOW) Urine Clarity Clear (CLEAR) Urine pH 6.5 (5.0-9.0) Ur Specific [place] 1.020 (1.005-1.025) Urine Protein Trace (NEG/TRACE) mg/dL Urine Glucose (UA) Negative (NEGATIVE) mg/dL Urine Ketones Trace A (NEGATIVE) mg/dL Urine Occult Blood Negative (NEGATIVE) Urine Nitrite Negative (NEGATIVE) Urine Bilirubin Negative (NEGATIVE) Urine Urobilinogen 1.0 (0.2-1.0) EU/dL Ur Leukocyte Esterase Negative (NEGATIVE) Urine RBC None seen (0-2) #/HPF Urine WBC 0-2 A (NONE SEEN) #/HPF Ur Squamous Epith Cells Many A (NONE/RARE) #/LPF Urine Crystals None seen (None Seen) #/HPF Urine Bacteria Small A (NONE SEEN) #/HPF Urine Casts None seen (NONE SEEN) #/LPF Urine Mucus None seen (NONE SEEN) Ur Culture Indicated? Yes-[facility] [place] Urine HCG, Qual Negative (NEGATIVE) Imaging Data Transvaginal/ Pelvic US: Radiologist's impression: ITS Impressions Transvaginal US 08/15/24 19:59 IMPRESSION: 4 cm complex right ovarian cyst. Color flow of both ovaries. Unremarkable uterus and endometrial complex. Impression dictated by: Cody Eugene M.D. 08/15/2024 9:34 PM Dictation Location: [employer] Electronically authenticated by: [id number] Y Date: 08/15/2024 21:34 Discharge Plan Discharge Chief Complaint: Abdominal Pain Clinical Impression: Abdominal pain, Ovarian cyst Patient Disposition: Home, Self-Care Time of Disposition Decision: 21:56 Condition: Good Print Language: Angolan Instructions: Ovarian Cyst (ED), Heat Pack Application (ED) Referrals: Wisam Rodriguez DO [Physician, [facility]] - 1 week Erik Garcia MD [Primary Care Provider, Family Practice] - 1 week
[2024-08-15 20:19] LABS: Basophils Percent Auto 0.3 % (0.2-2.0); Eosinophils Absolute Auto 0.2 10^3/uL (0.0-0.7); Eosinophils Percent Auto 1.7 % (0.9-7.0); Hematocrit 38.6 % (36.0-48.0); Hemoglobin 12.8 g/dL (12.0-16.0); Immature Granulocytes Abs Auto 0.03 10^3/uL (0.00-0.03); Immature Granulocytes Pct Auto 0.3 % (0.0-0.5); Lymphocytes Absolute Auto 2.6 10^3/uL (1.2-3.8); Lymphocytes Percent Auto 25.6 % (20.5-60.0); Mean Corpuscular HGB Conc 33.2 g/dL (29.9-35.2); Mean Corpuscular Hemoglobin 29.8 pg (26.7-34.0); Mean Corpuscular Volume 89.8 fL (81.0-99.0); Mean Platelet Volume 9.4 fL (9.5-13.5); Neutrophils Absolute Auto 6.3 10^3/uL (1.4-6.5); Neutrophils Percent Auto 62.1 % (43.0-75.0); Platelet Count 319 10^3/uL (150-450); Red Cell Distribution Width 13.2 % (11.0-15.0); White Blood Count 10.1 10^3/uL (4.0-11.0)
[2024-08-15 20:19] LABS: Bacteria Urine SMALL #/HPF (NONE SEEN); Cast Seen? NONE SEEN #/LPF (NONE SEEN); Crystals Seen? None Seen #/HPF (None Seen); Mucus Urine NONE SEEN (NONE SEEN); RBC Urine NONE SEEN #/HPF (0-2); Squamous Epithelial Cell Urine MANY #/LPF (NONE/RARE); Urine Culture Indicated YES-FRMC; WBC Urine 0-2 #/HPF (NONE SEEN)
[2024-08-15] MEDS: ONDANSETRON PF 4 MG/2 ML VIAL IV (20:26)
[2024-08-15] MEDS: MORPHINE SULFATE 2 MG/ML SYRINGE IV (20:26)
[2024-08-15 20:34] LABS: Alanine Aminotransferase 20 U/L (14-59); Albumin Globulin Ratio 1.2; Albumin Level 3.6 g/dL (3.4-5.0); Alkaline Phosphatase 83 U/L (46-116); Anion Gap 8.8; Aspartate Amino Transferase 12 U/L (15-37); BUN Creatinine Ratio 43.8; Bilirubin Total 0.8 mg/dL (0.2-1.0); Calcium 8.9 mg/dL (8.5-10.1); Carbon Dioxide 27.4 mmol/L (21.0-32.0); Chloride 108 mmol/L (98-107); Estimated GFR (African America >60 (>=60 mL/min/1.73m^2); Estimated GFR (Non-African Ame >60 (>=60 mL/min/1.73m^2); Glucose 96 mg/dL (74-106); Potassium 4.2 mmol/L (3.5-5.1); Sodium 140 mmol/L (136-145); Total Protein 6.6 g/dL (6.4-8.2)
[2024-08-15 21:47] VITALS: BP 115/76; PULSE 60; O2SAT 98
[2024-08-15] MEDS: HYDROCODONE/ACET 5-325 MG TABLET 2 TAB PO (22:09)
== END 2024-08-15 22:13 | disposition home or self-care (01) ==
PROVIDERS: Nurse Practitioner; Emergency Provider Emergency Medicine; PCP Family Medicine
DX: N83.291 Other ovarian cyst, right side (principal); R10.30 Lower abdominal pain, unspecified; N80.9 Endometriosis, unspecified
CPT/HCPCS: 36415; 76830; 80053; 81001; 83690; 84703; 85025; 87086; 96374; 96375; 99285; J2270; J2405

== ENCOUNTER 2024-08-27 12:10 | Outpatient (OUT) | payer BC, SELFPAY ==
[2024-08-27 12:58] LABS: Lactate Dehydrogenase 188 U/L (81-234)
[2024-08-28 04:09] LABS: CEA 1.5 ng/mL (0.0-4.7); HCG Tumor Marker <1 mIU/mL (.)
[2024-08-28 05:09] LABS: AFP, Serum, Tumor Marker 2.4 ng/mL (0.0-4.7); Cancer Antigen (CA) 125 14.8 U/mL (0.0-38.1)
== END 2024-08-27 12:11 | disposition home or self-care (01) ==
PROVIDERS: PCP Family Medicine; Visit Provider Physician Assistant
DX: N83.299 Other ovarian cyst, unspecified side (principal)
CPT/HCPCS: 36415; 82105; 82378; 83615; 84702; 86304

== ENCOUNTER 2024-08-31 09:55 | Outpatient (OUT) | payer BC, SELFPAY ==
--- OUTSIDE RECORDS SUMMARY | 2024-08-31 10:16 | XMS_ITS | CCD ---
Author Organization [facility] Care Team Providers Care Grain Picker Name Role Phone LarsDudley wolf Unavailable Mohini Martinez Unavailable JENNIFER ., DR SILVA Admitting Unavailable JENNIFER ., DR SILVA Attending Unavailable HOY ., DR PERDUE Primary Care Unavailable LEROY, DR DUDLEY Emanuel Consulting Unavailable JENNIFER ., DR SILVA Consulting Unavailable JAMIL REEVES Admitting Unavailable JAMIL REEVES Attending Unavailable HOY ., DR PERDUE Primary Care Unavailable HOY ., DR PERDUE Consulting Unavailable DUDLEY LANE Consulting Unavailable HOY ., DR PERDUE Admitting Unavailable HOY ., DR PERDUE Attending Unavailable HOY ., DR PERDUE Primary Care Unavailable HOY ., DR PERUDE Consulting Unavailable LEROY, DR DUDLEY Emanuel Consulting Unavailable JENNIFER ., [...] Unavailable Iron Garcia MD Primary Care Provider [id number] Iron Garcia MD Primary Care Provider [id number] Hannah David Attending Unavailable Hannah David Admitting Unavailable Hannah David DO Attending Provider [phone] RICARDO RODRIGUEZ Attending Unavailable JOSI ROSE Attending Unavailable RICARDO RODRIGUEZ Attending Unavailable RICARDO RODRIGUEZ Attending Unavailable RICARDO RODRIGUEZ Attending Unavailable Medications Current Medications Medication Drug Class(es) Dates Sig (Normalized) Sig (Original) [id number] 200 actuat albuterol 0.09 mg/actuat metered dose [...] Active medroxyPROGESTERone acetate 10 mg oral tablet (8 sources) Progestin Start: 03-01-2024 End: 08-21-2024 take 1 tablet by mouth once daily medroxyPROGESTERone (Provera) 10 MG tablet Indications: Abnormal vaginal bleeding Take 1 tablet (10 mg) by mouth Daily for 14 days 14 tablet 03/01/2024 08/21/2024 Discontinued osmotic 24 hr metFORMIN hydrochloride 500 mg [...] DAILY NEEDED FOR NAUSEA 0 02/19/2023 Active Msvkvh36-Uuic Fum-Folic Ac-Om3 (One A Day Women's Dha) 28 mg iron- 800 mcg combo pack (2 sources) Start: 05-22-2023 Ipvofn68-Nded Fum-Folic Ac-Om3 (One A Day Women's Dha) 28 mg iron- 800 mcg combo pack Active PKG PO May 22, 2023 1:00am Start: 05-22-2023 Iredxz17-Yzyu Fum-Folic Ac-Om3 (One A Day Women's Dha) [...] succinate 50 mg extended release oral tablet (4 sources) Serotonin and Norepinephrine Reuptake Inhibitor Start: 05-11-2017 End: 05-22-2023 take 1 tablet by mouth once daily, then take 1 tablet by mouth every twenty-four hours Desvenlafaxine Succinate (Pristiq) 50 mg tablet extended release 24 hr Discontinued 50 MG PO Daily May 11, 2017 1:00am May 22, 2023 10:32am dicyclomine hydrochloride 20 mg oral tablet (2 sources) Anticholinergic Start: 12-22-2020 take 1 tablet by mouth every twelve hours linaclotide 0.072 mg oral capsule (4 sources) Guanylate Cyclase-C Agonist Start: 05-11-2017 End: 05-12-2017 take 1 capsule by mouth once daily Linaclotide (Linzess) 72 mcg capsule Discontinued 72 MCG PO Daily May 11, 2017 1:00am May 12, 2017 8:46am Linzess 72 MCG O ral for 30 Not-Taking lubiprostone 0.008 mg oral capsule (4 sources) Chloride Channel Activator Start: 05-12-2017 End: 05-22-2023 take 1 capsule by mouth twice daily Lubiprostone (Amitiza) 8 mcg Capsule Discontinued 8 MCG PO Twice daily May 12, 2017 1:00am May 22, 2023 10:32am take 1 capsule by mouth every tw [...] unspecified] Onset: 11-21-2021 Chronic Other endocrine disorders (10 sources) Hypoglycemia; Translations: [Hypoglycemia, unspecified] Onset: 05-26-2023 [...] 12-22-2020 Resolved: 12-22-2020 Chronic Other gastrointestinal disorders (2 sources) Altered bowel function; Translations: [Change in bowel habit] 03-09-2023 Episodic Comment on above: Problem List clean-u p per request of Phys. EHR Cmte Other nutritional; endocrine; and metabolic disorders (5 sources) Metabolic syndrome; 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 Other nutritional; endocrine; and metabolic disorders (1 source) Weight loss; Translations: [Abnormal weight loss] 03-09-2023 Episodic Other nutritional; endocrine; and metabolic disorders (1 source) Weight decreased; Translations: [Abnormal weight loss] 03-09-2023 Episodic Comment on above: Problem List clean-u p per request of Phys. EHR Cmte Other screening for suspected conditions (not mental disorders or infectious disease) (6 sources) Other specified abnormal findings of blood chemistry; Translations: [Patient encounter status] Onset: 02-03-2022 Episodic Ovarian cyst (9 sources) Unspecified ovarian cyst, left side; Translations: [...] Onset: 04-02-2022 Episodic Deficiency and other anemia (10 sources) Anemia; Translations: [Anemia, unspecified] Onset: 05-26-2023 [...] 01-13-2022 Episodic Other and delivery including normal (12 sources) Second trimester ; Translations: [Encounter for supervision of normal , unspecified, second trimester] Onset: 06-13-2023 05-02-2023 Episodic Other upper respiratory infections (4 sources) Acute pharyngitis, unspecified; Translations: [ACUTE PHARYNGITIS UNSPECIFIED] Onset: 01-12-2022 Episodic Polyhydramnios and other problems of amniotic cavity (10 sources) Abnormal amniotic fluid; Translations: [Polyhydramnios, unspecified trimester, not applicable or unspecified] Onset: 05-26-2023 4 Episodic Residual codes; unclassified (10 sources) Gestation period, 32 weeks; Translations: [32 weeks gestation of ] Onset: 06-30-2023 06-30-2023 Episodic Unclassified (1 source) CONTACT W/AND (SUSP) EXPOS COVID-19; Translations: [CONTACT W/AND (SUSP) EXPOS COVID-19] Onset: 04-01-2022 Results Test Name Value Interpretation Reference Range Facility ALL LDHon 08-27-2024 LDH [Catalytic activity/Vol] 188 U/L 81 - 234 U/L [facility] Urine Cultureon 08-15-2024 Bacteria identified Cx Nom (U) <9,000 colonies/ml mixed bacterial skin contaminants 2 Days PERFORMED BY: [facility] [address] [place] [address] PATHOLOGIST HYDRAULIC JACK ADJUSTER GHAZAL TEIXEIRA M.D. Normal [facility] Comment on above: Performed By: #### C UU #### [facility] [address] ALL CBC WITH AUTO DIFFon BASOPHILS ABSOLUTE AUTO 0 N S Healthcare Basophils/100 WBC (Bld) 0.5 % 0.2 - 2.0 % [facility] Eosinophils/100 WBC (Bld) 2.6 % 0.9 - 7.0 % [facility] Erythrocyte distribution width (RBC) [Ratio] 13.3 % 11.0 - 15.0 % [facility] Hematocrit (Bld) [Volume fraction] 39.2 % 36.0 - 48.0 % [facility] Hemoglobin (Bld) [Mass/Vol] 12.8 g/dL 12.0 - 16.0 g/dL [facility] IMMATURE GRANULOCYTES ABS AUTO 0.02 [facility] Immature granulocytes/100 WBC (Bld) 0.3 % 0.0 - 0.5 % [facility] Interpretation and review of laboratory results Abnormal [facility] LYMPHOCYTES ABSOLUTE AUTO 1.7 [facility] Lymphocytes/100 WBC (Bld) 27.1 % 20.5 - 60.0 % [facility] MCH (RBC) [Entitic mass] 29.4 pg 26. 7 - 34.0 pg [facility] MCHC (RBC) [Mass/Vol] 32.7 g/dL 29.9 - 35.2 g/dL [facility] MCV (RBC) [Entitic vol] 89.9 fL 81.0 - 99.0 fL [facility] MONOCYTES ABSOLUTE AUTO 0.6 N [facility] Monocytes/100 WBC (Bld) 9.9 % 1.7 - 12.0 % [facility] NEUTROPHILS ABSOLUTE AUTO 3.7 [facility] Neutrophils/100 WBC (Bld) 59.6 % 43.0 - 75.0 % [facility] Platelet mean volume (Bld) [Entitic vol] 8.9 fL Low 9.5 - 13.5 fL [facility] EO # 0.2 [facility] PLT 279 [facility] RBC 4.36 [facility] WBC 6.2 [facility] Laboratory - Microbiology an d Antimicrobial susceptibilityOrdered By: Teresa Wilkins on 05-22-2023 SARS-CoV-2 (COVID-19) RNA SHIRIN+probe Ql (Unsp spec) [facility] Urinalysis macro (dipstick) panel (U)on 05-10-2023 Bilirubin, UA Negative Negative - 4(70) +++ mg/dL [facility] Blood, UA Negative Negative - 50 Jayson/mcL [facility] Clarity, UA Clear [facility] Color, UA Yellow [facility] Glucose, UA Negative Negative - 1999(110) ++++ mg/dL [facility] Interpretation and review of laboratory results Abnormal [facility] Ketones, UA Positive Negative - 160(16) ++++ mg/dL [facility] Comment on above: trace Leukocytes, UA Trace Negative - 500+++ Lolita/mcL [facility] Nitrite, UA Negative Negative - Positive [facility] pH, UA 6.0 5 - 9 [facility] Protein, UA Negative Negative - 1999(20) ++++ mg/dL [facility] Spec Grav, UA 1.030 1 - 1.03 [facility] Urobilinogen, UA 0.2 0.2 - 12 mg/dL [facility] CBC AUTO DIFFon 07-08-2022 BASO # 0.0 103/ul Normal 0.0-0.1 [facility] Comment on above: Performed By: #### R F #### [facility] [address] [address] [address] Venkat Sloan Basophils/100 WBC (Bld) 0.5 % Normal 0.2-2.0 [facility] Comment on above: Performed By: #### R F #### [facility] [address] [place] [address] Dr. Venkat Sloan EO # 0.1 103/ul Normal 0.0-0.7 [facility] Comment on above: Performed By: #### R F #### [facility] [address] [place] [address] Dr. Venkat Sloan Eosinophils/100 WBC (Bld) 1.7 % Normal 0.9-7.0 [facility] Comment on above: Performed By: #### R F #### [facility] [address] [place] [address] Dr. Venkat Sloan Erythrocyte distribution width (RBC) [Ratio] 12.7 % Normal 11.0-15.0 [facility] Comment on above: Performed By: #### R F #### [facility] [address] [place] [address] Dr. Venkat Sloan Hematocrit (Bld) [Volume fraction] 40.4 % Normal 36.0-48.0 [facility] Comment on above: Performed By: #### R F #### [facility] [address] [place] [address] Dr. Venkat Sloan Hemoglobin (Bld) [Mass/Vol] 13.1 g/dL Normal 12.0-16.0 [facility] Comment on above: Performed By: #### R F #### [facility] [address] [place] [address] Dr. Venkat Sloan IG # 0.02 10e3/ul Normal 0.00-0.03 [facility] Comment on above: Performed By: #### R F #### [facility] [address] [place] [address] Dr. Venkat Sloan IG % 0.3 % Normal 0.0-0.5 [facility] Comment on above: Performed By: #### R F #### [facility] [address] [place] [address] Dr. Venkat Sloan LYMPH # 2.0 103/ul Normal 1.2-3.8 [facility] Comment on above: Performed By: #### R F #### [facility] [address] [place] [address] Dr. Venkat Sloan Lymphocytes/100 WBC (Bld) 26.2 % Normal 20.5-60.0 [facility] Comment on above: Performed By: #### R F #### [facility] [address] [place] [address] Dr. Venkat Sloan MANUAL DIFF REQ NO Normal [facility] Comment on above: Performed By: #### R F #### [facility] [address] [place] [address] Dr. Venkat Sloan MCH (RBC) [Entitic mass] 28.4 pg Normal 26.7-34.0 [facility] Comment on above: Performed By: #### R F #### [facility] [address] [place] [address] Dr. Venkat Sloan MCHC (RBC) [Mass/Vol] 32.4 g/dL Normal 29.9-35.2 [facility] Comment on above: Performed By: #### R F #### [facility] [address] [place] [address] Dr. Venkat Sloan MCV (RBC) [Entitic vol] 87.4 fL Normal 81.0-99.0 [facility] Comment on above: Performed By: #### R F #### [facility] [address] [place] [address] Dr. Venkat Sloan MONO # 0.7 103/ul Normal 0.3-0.8 [facility] Comment on above: Performed By: #### R F #### [facility] [address] [place] [address] Dr. Venkat Sloan Monocytes/100 WBC (Bld) 8.8 % Normal 1.7-12.0 [facility] Comment on above: Performed By: #### R F #### [facility] [address] [place] [address] Dr. Venkat Sloan NEUT # 4.8 103/ul Normal 1.4-6.5 [facility] Comment on above: Performed By: #### R F #### [facility] [address] [place] [address] Dr. Venkat Sloan Neutrophils/100 WBC (Bld) 62.5 % Normal 43.0-75.0 [facility] Comment on above: Performed By: #### R F #### [facility] [address] [place] [address] Dr. Venkat Sloan Platelet mean volume (Bld) [Entitic vol] 8.5 fL Critically low 9.5-13.5 [facility] Comment on above: Performed By: #### R F #### [facility] [address] [place] [address] Dr. Venkat Sloan PLT 331 103/ul Normal 150-450 [facility] Comment on above: Performed By: #### R F #### [facility] [address] [place] [address] Dr. Venkat Sloan RBC 4.62 106/ul Normal 4.20-5.40 [facility] Comment on above: Performed By: #### R F #### [facility] [address] [place] [address] Dr. Venkat Sloan WBC 7.7 103/ul Normal 4.0-11.0 [facility] Comment on above: Performed By: #### R F #### [facility] [address] [place] [address] Dr. Venkat Sloan PREG QUANT HCGon 07-08-2022 HCG QUANT <1 Normal [facility] Comment on above: Performed By: #### P REGQNT #### [facility] [address] [place] [address] Dr. Venkat Sloan HCG RANGE SEE BELOW Normal [facility] Comment on above: Result Comment: 5-50 0.2-1 WEEK 50-500 1-2 WEEKS 100-5,000 2-3 WEEKS 500-10,000 3-4 WEEKS 1,000-50,000 4-5 WEEKS 10,000-100,000 5-6 WEEKS 15,000-200,000 6-8 WEEKS 10,000-100,000 2-3 MONTHS Performed By: #### P REGQNT #### [facility] [address] [place] [address] Dr. Venkat Sloan PROGESTERONEon 06-23-2022 Progesterone 5.7 ng/mL Normal [facility] Comment on above: Result Comment: Foll icular phase 0.1 - 0.9 Luteal phase 1.8 - 23.9 Ovulation phase 0.1 - 12.0 First trimester 11.0 - 44.3 Second trimester 25.4 - 83.3 Third trimester 58.7 - 214.0 Postmenopausal 0.0 - 0.1 Performed By: #### T SH #### [facility] [address] [place] [address] Dr. Venkat Sloan PREG QUANT HCGon 05-31-2022 HCG QUANT 1 mIU/mL Normal [facility] Comment on above: Performed By: #### P REGQNT #### [facility] [address] [place] [address] Dr. Venkat Sloan HCG RANGE SEE BELOW Normal [facility] Comment on above: Result Comment: 5-50 0.2-1 WEEK 50-500 1-2 WEEKS 100-5,000 2-3 WEEKS 500-10,000 3-4 WEEKS 1,000-50,000 4-5 WEEKS 10,000-100,000 5-6 WEEKS 15,000-200,000 6-8 WEEKS 10,000-100,000 2-3 MONTHS Performed By: #### P REGQNT #### [facility] [address] [place] [address] Dr. Venkat Sloan PROGESTERONEon 05-21-2022 Progesterone 12.4 ng/mL Normal [facility] Comment on above: Result Comment: Foll icular phase 0.1 - 0.9 Luteal phase 1.8 - 23.9 Ovulation phase 0.1 - 12.0 First trimester 11.0 - 44.3 Second trimester 25.4 - 83.3 Third trimester 58.7 - 214.0 Postmenopausal 0.0 - 0.1 Performed By: #### I NFLUAB #### [facility] [address] [place] [address] Dr. Venkat Sloan MRI BRAIN WO W [...] LAM VELA Date: 2022-05-04 08:42 Normal [facility] PREG QUANT HCGon 05-04-2022 HCG QUANT <1 Normal [facility] Comment on above: Performed By: #### R F #### [facility] [address] [address] [address] Venkat Sloan HCG RANGE SEE BELOW Normal [facility] Comment on above: Result Comment: 5-50 0.2-1 WEEK 50-500 1-2 WEEKS 100-5,000 2-3 WEEKS 500-10,000 3-4 WEEKS 1,000-50,000 4-5 WEEKS 10,000-100,000 5-6 WEEKS 15,000-200,000 6-8 WEEKS 10,000-100,000 2-3 MONTHS Performed By: #### R F #### [facility] [address] [address] [address] Venkat Sloan XR HYSTEROSALPINGOGRAMon XR HYSTEROSALPINGOGRAM [...] by: LAM VELA Date: 2022-05-04 16:09 Normal [facility] PROGESTERONEon 04-24-2022 Progesterone 0.4 ng/mL Normal [facility] Comment on above: Result Comment: Foll icular phase 0.1 - 0.9 Luteal phase 1.8 - 23.9 Ovulation phase 0.1 - 12.0 First trimester 11.0 - 44.3 Second trimester 25.4 - 83.3 Third trimester 58.7 - 214.0 Postmenopausal 0.0 - 0.1 Performed By: #### I NFLUAB #### [facility] [address] [address] [address] Venkat Sloan CULTURE SPUTUMon 04-02-2022 CULTURE SPUTUM Culture Observations : NORMAL RESPIRATORY NATALEE. Normal [facility] Comment on above: Performed By: #### R F #### [facility] [address] [address] [address] Venkat Sloan SPUTUM GRAM STAINon 04-02-19 23 COMMENTS Normal [facility] Comment on above: Performed By: #### R F #### [facility] [address] [address] [address] Venkat Sloan DIPHTHEROIDS Normal [facility] Comment on above: Performed By: #### R F #### [facility] [address] [address] [address] Venkat Sloan EPITHELIALS <25 Normal [facility] Comment on above: Performed By: #### R F #### [facility] [address] [address] [address] Venkat Sloan FUNGAL ELEMENTS Normal [facility] Comment on above: Performed By: #### R F #### [facility] [address] [address] [address] Venkat Sloan GRAM NEG BACILLI RARE Normal [facility] Comment on above: Performed By: #### R F #### [facility] [address] [address] [address] Venkat Sloan GRAM NEG DIPPLOCOCCI Normal [facility] Comment on above: Performed By: #### R F #### [facility] [address] [address] [address] Venkat Sloan GRAM POS BACILLI Normal [facility] Comment on above: Performed By: #### R F #### [facility] [address] [place] [address] Dr. Venkat Sloan GRAM POSITIVE COCCI RARE Normal [facility] Comment on above: Performed By: #### R F #### [facility] [address] [place] [address] Dr. Venkat Sloan WBC (Bld) [#/Vol] 10*3/uL Normal [facility] Comment on above: Performed By: #### R F #### [facility] [address] [place] [address] Dr. Venkat Sloan [facility]on SARS-CoV-2 (COVID-19) RNA SHIRIN+probe Ql (Unsp spec) Not detected Normal NOT DETECTED [facility] Comment on above: Result Comment: This test is not yet approved or cleared by the [place] FDA. When there are no FDA-approved or cleared tests available, and other criteria are met, FDA can make tests available under an emergency access mechanism called an Emergency Use Authorization (EUA). The EUA for this test is supported by the [place] of Health and Human Service's (HHS's) declaration [...] SARS-CoV-2. Performed By: #### P REGQNT #### [facility] [address] [place] [address] Dr. Venkat Sloan INFLUENZA A AND B AGon 04-01 [facility] SEE BELOW Normal [facility] Comment on above: Result Comment: Nega tive for Flu A protein angiten. Infection due to Flu A cannot be ruled out. Flu A angiten in the sample may be below the detection limit of the test. Performed By: #### I NFLUAB #### [facility] [address] [place] [address] Dr. Venkat [facility] SEE BELOW Normal [facility] Comment on above: Result Comment: Nega tive for Flu B protein antigen. Infection due to Flu B cannot be ruled out. Flu B antigen in the sample may be below the detection limit of the test. Performed By: #### I NFLUAB #### [facility] [address] [place] [address] Dr. Venkat Sloan INFLUENZA A AG Negative Normal NEGATIVE SEE COMMENT [facility] Comment on above: Performed By: #### I NFLUAB #### [facility] [address] [place] [address] Dr. Venkat Sloan INFLUENZA B AG Negative Normal NEGATIVE SEE COMMENT [facility] Comment on above: Performed By: #### I NFLUAB #### [facility] [address] [place] [address] Dr. Venkat Sloan XR CHEST 2 Von [...] [address] Date: 2022-03-24 12:33 Normal [facility]on 02-25 SARS-CoV-2 (COVID-19) RNA SHIRIN+probe Ql (Unsp spec) Not detected Normal NOT DETECTED [facility] Comment on above: Result Comment: When [...] for this test is supported by the [place] of Health and Human Service's declaration that [...] used). Performed By: #### R F #### [facility] [address] [place] [address] Dr. Venkat Sloan INFLUENZA A AND B AGon 03-15 [facility] SEE BELOW Normal [facility] Comment on above: Result Comment: Nega tive for Flu A protein angiten. Infection due to Flu A cannot be ruled out. Flu A angiten in the sample may be below the detection limit of the test. Performed By: #### I NFLUAB #### [facility] [address] [place] [address] Dr. Venkat Sloan [facility] SEE BELOW Normal [facility] Comment on above: Result Comment: Nega tive for Flu B protein antigen. Infection due to Flu B cannot be ruled out. Flu B antigen in the sample may be below the detection limit of the test. Performed By: #### I NFLUAB #### [facility] [address] [place] [address] Dr. Venkat Sloan INFLUENZA A AG Negative Normal NEGATIVE SEE COMMENT [facility] Comment on above: Performed By: #### I NFLUAB #### [facility] [address] [place] [address] Dr. Venkat Sloan INFLUENZA B AG Negative Normal NEGATIVE SEE COMMENT [facility] Comment on above: Performed By: #### I NFLUAB #### [facility] [address] [address] [address] Venkat Sloan INTERNAL CONTROLS Within Normal Limits Normal Wi thin Normal Limits [facility] Comment on above: Performed By: #### I NFLUAB #### [facility] [address] [address] [address] Venkat Sloan Covid-19 PCR ([facility])on 02-25 SARS-CoV-2 (COVID-19) RNA SHIRIN+probe Ql (Unsp spec) Not detected Normal NOT DETECTED [facility] Comment on above: Result Comment: When [...] for this test is supported by the [place] of Health and Human Service's declaration that [...] used). Performed By: #### I NFLUAB #### [facility] [address] [place] [address] Dr. Venkat Sloan INFLUENZA A AND B AGon 03-12 [facility] SEE BELOW Normal [facility] Comment on above: Result Comment: Nega tive for Flu A protein angiten. Infection due to Flu A cannot be ruled out. Flu A angiten in the sample may be below the detection limit of the test. Performed By: #### I NFLUAB #### [facility] [address] [place] [address] Dr. Venkat Sloan INFLUBNEG SEE BELOW Normal [facility] Comment on above: Result Comment: Nega tive for Flu B protein antigen. Infection due to Flu B cannot be ruled out. Flu B antigen in the sample may be below the detection limit of the test. Performed By: #### I NFLUAB #### [facility] [address] [address] [address] Venkat Sloan INFLUENZA A AG Negative Normal NEGATIVE SEE COMMENT [facility] Comment on above: Performed By: #### I NFLUAB #### [facility] [address] [place] [address] Dr. Venkat Sloan INFLUENZA B AG Negative Normal NEGATIVE SEE COMMENT [facility] Comment on above: Performed By: #### I NFLUAB #### [facility] [address] [address] [address] Venkat Sloan INTERNAL CONTROLS Within Normal Limits Normal Wi thin Normal Limits [facility] Comment on above: Performed By: #### I NFLUAB #### [facility] [facility] [address] [place] [address] Dr. Venkat Sloan PROGESTERONEon 02-20-2022 Progesterone 0.3 ng/mL Normal [facility] Comment on above: Result Comment: Foll icular phase 0.1 - 0.9 Luteal phase 1.8 - 23.9 Ovulation phase 0.1 - 12.0 First trimester 11.0 - 44.3 Second trimester 25.4 - 83.3 Third trimester 58.7 - 214.0 Postmenopausal 0.0 - 0.1 Performed By: #### R F #### [facility] [address] [place] [address] Dr. Venkat Sloan ACTH STIMULATIONon 2 Andros Baseline 49 ng/dL Normal 41-262 [facility] Comment on above: Performed By: #### R F #### [facility] [address] [place] [address] Dr. Venkat Sloan Andros Stimulated 82 ng/dL Normal Not Estab. [facility] Comment on above: Performed By: #### R F #### [facility] [address] [place] [address] Dr. Venkat Sloan Covid-19 PCR (CVDTB)on 01-26 SARS-CoV-2 (COVID-19) RNA SHIRIN+probe Ql (Unsp spec) Not detected Normal NOT DETECTED [facility] Comment on above: Result Comment: This test is not yet approved or cleared by the [place] FDA. When there are no FDA-approved or cleared tests available, and other criteria are met, FDA can make tests available under an emergency access mechanism called an Emergency Use Authorization (EUA). The EUA for this test is supported by the [place] of Health and Human Service's (HHS's) declaration [...] SARS-CoV-2. Performed By: #### I NFLUAB #### [facility] [address] [place] [address] Dr. Venkat Sloan INFLUENZA A AND B [facility] 02-10 [facility] SEE BELOW Normal [facility] Comment on above: Result Comment: Nega tive for Flu A protein angiten. Infection due to Flu A cannot be ruled out. Flu A angiten in the sample may be below the detection limit of the test. Performed By: #### P REGQNT #### [facility] [address] [place] [address] Dr. Venkat [facility] Normal [facility] Comment on above: Result Comment: Nega tive for Flu B protein antigen. Infection due to Flu B cannot be ruled out. Flu B antigen in the sample may be below the detection limit of the test. Performed By: #### P REGQNT #### [facility] [address] [place] [address] Dr. Venkat Sloan INFLUENZA A AG Negative Normal NEGATIVE SEE COMMENT [facility] Comment on above: Performed By: #### P REGQNT #### [facility] [address] [place] [address] Dr. Venkat Sloan INFLUENZA B AG Negative Normal NEGATIVE SEE COMMENT [facility] Comment on above: Performed By: #### P REGQNT #### [facility] [address] [address] [address] Venkat Sloan INTERNAL CONTROLS Within Normal Limits Normal Wi thin Normal Limits [facility] Comment on above: Performed By: #### P REGQNT #### [facility] [address] [place], [place] [address] Dr. Venkat Sloan DHEA SERUMon 01-19-2022 Dehydroepiandrosterone (DHEA) 82 ng/dL Normal -70 [facility] Comment on above: Result Comment: Age [...] 89 Performed By: #### T SH #### [facility] [address] [address] [address] Venkat Sloan DHEA-SULFATEon 01-14-2022 DHEA-Sulfate 34.0 ug/dL Critically low 84.8-378.0 [facility] Comment on above: Performed By: #### R F #### [facility] [address] [place] [address] Dr. Venkat Sloan FSHon 01-14-2022 FSH 2.2 mIU/mL Normal [facility] Comment on above: Result Comment: Adul t Female: Follicular phase 3.5 - 12.5 Ovulation phase 4.7 - 21.5 Luteal phase 1.7 - 7.7 Postmenopausal 25.8 - 134.8 Performed By: #### L BCFSH #### [facility] [address] [place] [address] Dr. Venkat Sloan LUTEINIZING HORMONE (LH)on LH 5.1 mIU/mL Normal [facility] Comment on above: Result Comment: Adul t Female: Follicular phase 2.4 - 12.6 Ovulation phase 14.0 - 95.6 Luteal phase 1.0 - 11.4 Postmenopausal 7.7 - 58.5 Performed By: #### I NFLUAB #### [facility] [address] [place] [address] Dr. Venkat Sloan PROLACTINon 01-14-2022 Prolactin 8.0 ng/mL Normal 4.8-23.3 [facility] Comment on above: Performed By: #### P ROLAC #### [facility] [address] [place] [address] Dr. Venkat Sloan CBC AUTO DIFFon 01-13-2022 BASO # 0.0 103/ul Normal 0.0-0.1 [facility] Comment on above: Performed By: #### T SH #### [facility] [address] [place] [address] Dr. Venkat Sloan Basophils/100 WBC (Bld) 0.4 % Normal 0.2-2.0 [facility] Comment on above: Performed By: #### T SH #### [facility] [address] [place] [address] Dr. Venkat Sloan EO # 0.1 103/ul Normal 0.0-0.7 [facility] Comment on above: Performed By: #### T SH #### [facility] [address] [place] [address] Dr. Venkat Sloan Eosinophils/100 WBC (Bld) 1.2 % Normal 0.9-7.0 [facility] Comment on above: Performed By: #### T SH #### [facility] [address] [place] [address] Dr. Venkat Sloan Erythrocyte distribution width (RBC) [Ratio] 12.7 % Normal 11.0-15.0 [facility] Comment on above: Performed By: #### T SH #### [facility] [address] [place] [address] Dr. Venkat Sloan Hematocrit (Bld) [Volume fraction] 41.1 % Normal 36.0-48.0 [facility] Comment on above: Performed By: #### T SH #### [facility] [address] [place] [address] Dr. Venkat Sloan Hemoglobin (Bld) [Mass/Vol] 13.1 g/dL Normal 12.0-16.0 [facility] Comment on above: Performed By: #### T SH #### [facility] [address] [place] [address] Dr. Venkat Sloan IG # 0.03 10e3/ul Normal 0.00-0.03 [facility] Comment on above: Performed By: #### T SH #### [facility] [address] [place] [address] Dr. Venkat Sloan IG % 0.3 % Normal 0.0-0.5 [facility] Comment on above: Performed By: #### T SH #### [facility] [address] [place] [address] Dr. Venkat Sloan LYMPH # 1.6 103/ul Normal 1.2-3.8 [facility] Comment on above: Performed By: #### T SH #### [facility] [address] [place] [address] Dr. Venkat Sloan Lymphocytes/100 WBC (Bld) 15.0 % Critically low 20.5-60.0 [facility] Comment on above: Performed By: #### T SH #### [facility] [address] [place] [address] Dr. Venkat Sloan MANUAL DIFF REQ NO Normal [facility] Comment on above: Performed By: #### T SH #### [facility] [address] [place] [address] Dr. Venkat Sloan MCH (RBC) [Entitic mass] 28.5 pg Normal 26.7-34.0 [facility] Comment on above: Performed By: #### T SH #### [facility] [address] [place] [address] Dr. Venkat Sloan MCHC (RBC) [Mass/Vol] 31.9 g/dL Normal 29.9-35.2 [facility] Comment on above: Performed By: #### T SH #### [facility] [address] [place] [address] Dr. Venkat Sloan MCV (RBC) [Entitic vol] 89.3 fL Normal 81.0-99.0 [facility] Comment on above: Performed By: #### T SH #### [facility] [address] [address] [address] Venkat Sloan MONO # 0.9 103/ul Critically high 0.3-0.8 [facility] Comment on above: Performed By: #### T SH #### [facility] [address] [address] [address] Venkat Sloan Monocytes/100 WBC (Bld) 8.8 % Normal 1.7-12.0 [facility] Comment on above: Performed By: #### T SH #### [facility] [address] [place] [address] Dr. Venkat Sloan NEUT # 7.9 103/ul Critically high 1.4-6.5 [facility] Comment on above: Performed By: #### T SH #### [facility] [address] [place] [address] Dr. Venkat Sloan Neutrophils/100 WBC (Bld) 74.3 % Normal 43.0-75.0 [facility] Comment on above: Performed By: #### T SH #### [facility] [address] [place] [address] Dr. Venkat Sloan Platelet mean volume (Bld) [Entitic vol] 9.2 fL Critically low 9.5-13.5 [facility] Comment on above: Performed By: #### T SH #### [facility] [address] [place] [address] Dr. Venkat Sloan PLT 300 103/ul Normal 150-450 [facility] Comment on above: Performed By: #### T SH #### [facility] [address] [place] [address] Dr. Venkat Sloan RBC 4.60 106/ul Normal 4.20-5.40 [facility] Comment on above: Performed By: #### T SH #### [facility] [address] [place] [address] Dr. Venkat Sloan WBC 10.7 103/ul Normal 4.0-11.0 [facility] Comment on above: Performed By: #### T SH #### [facility] [address] [place] [address] Dr. Venkat Sloan GLYCOHEMOGLOBIN A1Con 2021 ADA RECOMMENDATION SEE BELOW Normal [facility] Comment on above: Result Comment: ADA RECOMMENDED LIMIT 4.0 - 6.0 ADA THERAPEUTIC TARGET < 7.0 ACTION SUGGESTED > 7.0 Performed By: #### P REGQNT #### [facility] [address] [place] [address] Dr. Venkat Sloan Glucose [Mass/Vol] 100 mg/dL Normal [facility] Comment on above: Performed By: #### P REGQNT #### [facility] [address] [address] [address] Venkat Sloan HbA1c (Bld) [Mass fraction] 5.1 % Normal 4.5-6.2 [facility] Comment on above: Performed By: #### P REGQNT #### [facility] [address] [place] [address] Dr. Venkat Sloan TSHon 01-13-2022 TSH 1.098 uIU/mL Normal 0.358-3.740 [facility] Comment on above: Performed By: #### T SH #### [facility] [address] [address] [address] Venkat Sloan Covid-19 PCR ([facility])on 12-26 SARS-CoV-2 (COVID-19) RNA SHIRIN+probe Ql (Unsp spec) Not detected Normal NOT DETECTED [facility] Comment on above: Result Comment: This test is not yet approved or cleared by the [place] FDA. When there are no FDA-approved or cleared tests available, and other criteria are met, FDA can make tests available under an emergency access mechanism called an Emergency Use Authorization (EUA). The EUA for this test is supported by the [place] of Health and Human Service's (HHS's) declaration [...] SARS-CoV-2. Performed By: #### I NFLUAB #### [facility] [address] [place] [address] Dr. Venkat Sloan PREG QUANT HCGon 12-24-2021 HCG QUANT <1 Normal [facility] Comment on above: Performed By: #### P REGQNT #### [facility] [address] [place] [address] Dr. Venkat Sloan HCG RANGE SEE BELOW Normal [facility] Comment on above: Result Comment: 5-50 0.2-1 WEEK 50-500 1-2 WEEKS 100-5,000 2-3 WEEKS 500-10,000 3-4 WEEKS 1,000-50,000 4-5 WEEKS 10,000-100,000 5-6 WEEKS 15,000-200,000 6-8 WEEKS 10,000-100,000 2-3 MONTHS Performed By: #### P REGQNT #### [facility] [address] [place] [address] Dr. Venkat Sloan HCG-BETA SUBUNIT QUANTon hCG,Beta Subunit,Qnt,Serum <1 Normal [facility] Comment on above: Result Comment: Fema le (Non-) 0 - 5 (Postmenopausal) 0 - 8 . Female () Weeks of Gestation 3 6 - 71 4 10 - 750 5 217 - 7138 6 158 - 55380 7 6010 -[phone] 8 [phone] -[phone] 9 31695 -[phone] 10 11438 -863781 12 14376 -114894 14 51564 - 63680 15 64764 - 44213 16 6739 - 12150 17 1034 - 82612 18 9960 - 34604 Aj ECLIA methodology Performed By: #### T SH #### [facility] [address] [place] [address] Dr. Venkat Sloan BRETT by IFAon 09-29-2021 Antinuclear Antibodies, IFA Negative Normal [facility] Comment on above: Result Comment: Nega tive <1:80 Borderline 1:80 Positive >1:80 ICAP nomenclature: AC-0 For more information about Hep-2 cell patterns use ANApatterns.org, the official website for the International Consensus on Antinuclear Antibody (BRETT) Patterns (ICAP). Performed By: #### A NAMERCEDESA #### [facility] [address] [place] [address] Dr. Venkat Sloan INSULINon 09-29-2021 Insulin 11.1 uIU/mL Normal 2.6-24.9 [facility] Comment on above: Performed By: #### T SH #### [facility] [address] [place] [address] Dr. Venkat Sloan ANTISTREPTOLYSIN O AB (ASO)o n 09-27-2021 Antistreptolysin O Ab <20.0 Normal 0.0-200.0 [facility] Comment on above: Performed By: #### P REGQNT #### [facility] [address] [place] [address] Dr. Venkat Sloan RHEUMATOID FACTORon 09-28-19 RA Latex Turbid. <10.0 Normal <14.0 [facility] Comment on above: Performed By: #### R F #### [facility] [address] [place] [address] Dr. Venkat Sloan CBC AUTO DIFFon 09-26-2021 BASO # 0.0 103/ul Normal 0.0-0.1 [facility] Comment on above: Performed By: #### T SH #### [facility] [address] [place] [address] Dr. Venkat Sloan Basophils/100 WBC (Bld) 0.3 % Normal 0.2-2.0 [facility] Comment on above: Performed By: #### T SH #### [facility] [address] [place] [address] Dr. Venkat Sloan EO # 0.1 103/ul Normal 0.0-0.7 [facility] Comment on above: Performed By: #### T SH #### [facility] [address] [place] [address] Dr. Venkat Sloan Eosinophils/100 WBC (Bld) 1.8 % Normal 0.9-7.0 [facility] Comment on above: Performed By: #### T SH #### [facility] [address] [place] [address] Dr. Venkat Sloan Erythrocyte distribution width (RBC) [Ratio] 12.9 % Normal 11.0-15.0 [facility] Comment on above: Performed By: #### T SH #### [facility] [address] [place] [address] Dr. Venkat Sloan Hematocrit (Bld) [Volume fraction] 39.8 % Normal 36.0-48.0 [facility] Comment on above: Performed By: #### T SH #### [facility] [address] [place] [address] Dr. Venkat Sloan Hemoglobin (Bld) [Mass/Vol] 12.7 g/dL Normal 12.0-16.0 [facility] Comment on above: Performed By: #### T SH #### [facility] [address] [place] [address] Dr. Venkat Sloan IG # 0.02 10e3/ul Normal 0.00-0.03 [facility] Comment on above: Performed By: #### T SH #### [facility] [address] [place] [address] Dr. Venkat Sloan IG % 0.3 % Normal 0.0-0.5 [facility] Comment on above: Performed By: #### T SH #### [facility] [address] [place] [address] Dr. Venkat Sloan LYMPH # 1.5 103/ul Normal 1.2-3.8 [facility] Comment on above: Performed By: #### T SH #### [facility] [address] [place] [address] Dr. Venkat Sloan Lymphocytes/100 WBC (Bld) 21.5 % Normal 20.5-60.0 [facility] Comment on above: Performed By: #### T SH #### [facility] [address] [place] [address] Dr. Venkat Sloan MANUAL DIFF REQ NO Normal [facility] Comment on above: Performed By: #### T SH #### [facility] [address] [address] [address] Venkat Sloan MCH (RBC) [Entitic mass] 28.5 pg Normal 26.7-34.0 [facility] Comment on above: Performed By: #### T SH #### [facility] [address] [place] [address] Dr. Venkat Sloan MCHC (RBC) [Mass/Vol] 31.9 g/dL Normal 29.9-35.2 [facility] Comment on above: Performed By: #### T SH #### [facility] [address] [place] [address] Dr. Venkat Sloan MCV (RBC) [Entitic vol] 89.2 fL Normal 81.0-99.0 [facility] Comment on above: Performed By: #### T SH #### [facility] [address] [place] [address] Dr. Venkat Sloan MONO # 0.5 103/ul Normal 0.3-0.8 [facility] Comment on above: Performed By: #### T SH #### [facility] [address] [place] [address] Dr. Venkat Sloan Monocytes/100 WBC (Bld) 7.6 % Normal 1.7-12.0 [facility] Comment on above: Performed By: #### T SH #### [facility] [address] [place] [address] Dr. Venkat Sloan NEUT # 4.9 103/ul Normal 1.4-6.5 [facility] Comment on above: Performed By: #### T SH #### [facility] [address] [place] [address] Dr. Venkat Sloan Neutrophils/100 WBC (Bld) 68.5 % Normal 43.0-75.0 [facility] Comment on above: Performed By: #### T SH #### [facility] [address] [place] [address] Dr. Venkat Sloan Platelet mean volume (Bld) [Entitic vol] 8.8 fL Critically low 9.5-13.5 [facility] Comment on above: Performed By: #### T SH #### [facility] [address] [address] [address] Venkat Sloan PLT 297 103/ul Normal 150-450 [facility] Comment on above: Performed By: #### T SH #### [facility] [address] [address] [address] Venkat Sloan RBC 4.46 106/ul Normal 4.20-5.40 [facility] Comment on above: Performed By: #### T SH #### [facility] [address] [address] [address] Venkat Sloan WBC 7.1 103/ul Normal 4.0-11.0 [facility] Comment on above: Performed By: #### T SH #### [facility] [address] [place] [address] Dr. Venkat Sloan CRPon 09-26-2021 CRP [Mass/Vol] mg/L Normal <=1.0 [facility] Comment on above: Performed By: #### P REGQNT #### [facility] [address] [place] [address] Dr. Venkat Sloan FREE THYROXINE INDEX T7on FTI 2.71 Normal 1.30-4.50 [facility] Comment on above: Performed By: #### P REGQNT #### [facility] [address] [place] [address] Dr. Venkat Sloan T3U 33.0 % Normal 30.0-39.0 [facility] Comment on above: Performed By: #### P REGQNT #### [facility] [address] [place] [address] Dr. Venkat Sloan T4 [Mass/Vol] 8.20 ug/dL Normal 4.80-13.90 [facility] Comment on above: Performed By: #### P REGQNT #### [facility] [address] [place] [address] Dr. Venkat Sloan GLYCOHEMOGLOBIN A1Con 2021 ADA RECOMMENDATION SEE BELOW Normal [facility] Comment on above: Result Comment: ADA RECOMMENDED LIMIT 4.0 - 6.0 ADA THERAPEUTIC TARGET < 7.0 ACTION SUGGESTED > 7.0 Performed By: #### I NFLUAB #### [facility] [address] [address] [address] Venkat Sloan Glucose [Mass/Vol] 105 mg/dL Normal [facility] Comment on above: Performed By: #### I NFLUAB #### [facility] [address] [address] [address] Venkat Sloan HbA1c (Bld) [Mass fraction] 5.3 % Normal 4.5-6.2 [facility] Comment on above: Performed By: #### I NFLUAB #### [facility] [address] [place] [address] Dr. Venkat Sloan IRONon 09-26-2021 Iron [Mass/Vol] 49.0 ug/dL Critically low 50.0-170.0 [facility] Comment on above: Performed By: #### P REGQNT #### [facility] [address] [place] [address] Dr. Venkat Sloan LIPID PROFILEon 09-26-2021 CHOL-HDL RATIO NORM SEE BELOW Normal [facility] Comment on above: Result Comment: 3.3 - 4.4 LOW RISK 4.4 - 7.1 AVERAGE RISK 7.1 - 11.0 MODERATE RISK >11.0 HIGH RISK Performed By: #### P REGQNT #### [facility] [address] [place] [address] Dr. Venkat Sloan Cholesterol [Mass/Vol] 197 mg/dL Normal <=200 [facility] Comment on above: Performed By: #### P REGQNT #### [facility] [address] [address] [address] Venkat Sloan Cholesterol in HDL [Mass/Vol] 64 mg/dL Critically high 40-60 [facility] Comment on above: Performed By: #### P REGQNT #### [facility] [address] [address] [address] Venkat Sloan Cholesterol in LDL [Mass/Vol] 123.4 mg/dL Normal [facility] Comment on above: Performed By: #### P REGQNT #### [facility] [address] [address] [address] Venkat Sloan Cholesterol.total/Choles terol in HDL [Mass ratio] 3.1 {ratio} Normal [facility] Comment on above: Performed By: #### P REGQNT #### [facility] [address] [address] [address] Venkat Sloan HDL NORMAL > or = 60 mg/dl - LO W CARDIOVASCULAR RISK <40 mg/dl - HIGH CARDIOVASCULAR RISK Normal [facility] Comment on above: Performed By: #### P REGQNT #### [facility] [address] [address] [address] Venkat Sloan LDL CALC NORMAL SEE BELOW Normal [facility] Comment on above: Result Comment: <100 mg/dl OPTIMAL 100 - 129 mg/dl NEAR OR ABOVE OPTIMAL 130 - 159 mg/dl BORDERLINE HIGH 160 - 189 mg/dl HIGH >190 mg/dl VERY HIGH Performed By: #### P REGQNT #### [facility] [address] [address] [address] Venkat Sloan Triglyceride [Mass/Vol] 48 mg/dL Normal <=150 T [facility] Comment on above: Performed By: #### P REGQNT #### [facility] [address] [address] [address] Venkat Sloan VLDL CALC 9.6 mg/dL Normal [facility] Comment on above: Performed By: #### P REGQNT #### [facility] [address] [address] [address] Venkat Sloan PROF 14(COMP METB)on 022 Albumin [Mass/Vol] 4.0 g/dL Normal 3.4-5.0 [facility] Comment on above: Performed By: #### I NFLUAB #### [facility] [address] [address] [address] Venkat Sloan Albumin/Globulin [Mass ratio] 1.3 {ratio} Normal [facility] Comment on above: Performed By: #### I NFLUAB #### [facility] [address] [address] [address] Venkat Sloan ALP [Catalytic activity/Vol] 58 U/L Normal 46-116 [facility] Comment on above: Performed By: #### I NFLUAB #### [facility] [address] [address] [address] Venkat Sloan ALT [Catalytic activity/Vol] 20 U/L Normal 14-59 [facility] Comment on above: Performed By: #### I NFLUAB #### [facility] [address] [address] [address] Venkat Sloan Anion gap [Moles/Vol] 10.4 mmol/L Normal [facility] Comment on above: Performed By: #### I NFLUAB #### [facility] [address] [address] [address] Venkat Sloan AST [Catalytic activity/Vol] 11 U/L Critically low 15-37 [facility] Comment on above: Performed By: #### I NFLUAB #### [facility] [address] [address] [address] Venkat Sloan Bilirubin [Mass/Vol] 0.8 mg/dL Normal 0.2-1.0 [facility] Comment on above: Performed By: #### I NFLUAB #### [facility] [address] [address] [address] Venkat Sloan Calcium [Mass/Vol] 9.0 mg/dL Normal 8.5-10.1 [facility] Comment on above: Performed By: #### I NFLUAB #### [facility] [address] [address] [address] Venkat Slona Chloride [Moles/Vol] 106 mmol/L Normal 98-107 [facility] Comment on above: Performed By: #### I NFLUAB #### [facility] [address] [address] [address] Venkat Sloan CO2 [Moles/Vol] 27.0 mmol/L Normal 21.0-32.0 [facility] Comment on above: Performed By: #### I NFLUAB #### [facility] [address] [address] [address] Venkat Sloan Creatinine [Mass/Vol] 0.70 mg/dL Normal 0.55-1.02 [facility] Comment on above: Performed By: #### I NFLUAB #### [facility] [address] [address] [address] Venkat Sloan EGFR-AF SALVADOREAN >60 Normal >=60 [facility] Comment on above: Performed By: #### I NFLUAB #### [facility] [address] [place] [address] Dr. Venkat Sloan EGFR-NON AF SALVADOREAN >60 Normal >=60 [facility] Comment on above: Performed By: #### I NFLUAB #### [facility] [address] [place] [address] Dr. Venkat Sloan Globulin (S) [Mass/Vol] 3.2 g/dL Normal T [facility] Comment on above: Performed By: #### I NFLUAB #### [facility] [address] [place] [address] Dr. Venkat Sloan Glucose [Mass/Vol] 92 mg/dL Normal 74-106 [facility] Comment on above: Performed By: #### I NFLUAB #### [facility] [address] [place] [address] Dr. Venkat Sloan Potassium [Moles/Vol] 4.4 mmol/L Normal 3.5-5.1 [facility] Comment on above: Performed By: #### I NFLUAB #### [facility] [address] [place] [address] Dr. Venkat Sloan Protein [Mass/Vol] 7.2 g/dL Normal 6.4-8.2 [facility] Comment on above: Performed By: #### I NFLUAB #### [facility] [address] [place] [address] Dr. Venkat Sloan Sodium [Moles/Vol] 139 mmol/L Normal 136-145 [facility] Comment on above: Performed By: #### I NFLUAB #### [facility] [address] [address] [address] Venkat Sloan Urea nitrogen [Mass/Vol] 13.0 mg/dL Normal 7.0-18.0 [facility] Comment on above: Performed By: #### I NFLUAB #### [facility] [address] [address] [address] Venkat Sloan Urea nitrogen/Creatinine [Mass ratio] 18.6 mg/mg Normal [facility] Comment on above: Performed By: #### I NFLUAB #### [facility] [address] [address] [address] Venkat Sloan TSHon 09-26-2021 TSH 1.318 uIU/mL Normal 0.358-3.740 [facility] Comment on above: Performed By: #### P REGQNT #### [facility] [address] [place] [address] Dr. Venkat Sloan URIC ACID SERUMon 09-26-2021 Urate [Mass/Vol] 3.9 mg/dL Normal 2.6-6.0 [facility] Comment on above: Performed By: #### P REGQNT #### [facility] [address] [place] [address] Dr. Venkat Sloan XR CSPINE MIN 4 [...] DUDLEY HERNÁNDEZ Date: 2021-09-24 21:16 Normal [facility] PREG QUANT HCGon 08-17-2021 HCG QUANT <1 Normal [facility] Comment on above: Performed By: #### I NFLUAB #### [facility] [address] [place] [address] Dr. Venkat Sloan HCG RANGE SEE BELOW Normal [facility] Comment on above: Result Comment: 5-50 0-1 WEEK 40-300 1-2 WEEKS 100-1,000 2-3 WEEKS 500-6,000 3-4 WEEKS 5,000-200,000 1-2 MONTHS 10,000-100,000 2-3 MONTHS 3,000-50,000 2ND TRIMESTER 1,000-50,000 3RD TRIMESTER Performed By: #### I NFLUAB #### [facility] [address] [place] [address] Dr. Venkat Sloan US PELVIS AND TRANSVAGon [...] DUDLEY HERNÁNDEZ Date: 2021-08-17 07:01 Normal [facility] COVID Quick Testingon 2020 Result Negative [facility] Other Vital Signs Date Time Vital Sign Value Performing Clinician Facility 08-21-2024 10:41-0400 Body mass index (BMI) [Ratio] 27.93 kg/m2 Josi VILLARREAL Work Phone: [facility] 08-21-2024 10:41-0400 Body weight 67.04 kg Josi VILLARREAL Work Phone: [facility] 08-21-2024 10:41-0400 Diastolic blood pressure 78 mm[Hg] Josi VILLARREAL Work Phone: [facility] 08-21-2024 10:41-0400 Systolic blood pressure 120 mm[Hg] Josi Genie PA Work Phone: [facility] 07-19-2024 12:02-0400 Body mass index (BMI) [Ratio] 27.78 kg/m2 Ricardo Jennifer DO Work Phone: [facility] 07-19-2024 12:02-0400 Body weight 66.68 kg Ricardo Jennifer DO Work Phone: [facility] 07-19-2024 12:02-0400 Diastolic blood pressure 70 mm[Hg] Ricardo Jennifer DO Work Phone: [facility] 07-19-2024 12:02-0400 Systolic blood pressure 116 mm[Hg] Ricardo Jennifer DO Work Phone: [facility] 05-22-2023 09:27-0500 Body height 154.94 cm [facility] 05-22-2023 09:27-0500 Body mass index (BMI) [Ratio] 30.8 kg/m2 [facility] 05-22-2023 09:27-0500 Body temperature 98.1 [degF] [facility] 05-22-2023 09:27-0500 Body weight 74.04 kg [facility] 05-22-2023 09:27-0500 Heart rate 78 /min [facility] 05-22-2023 09:27-0500 Respiratory rate 16 /min [facility] 05-22-2023 09:27-0500 SaO2% (BldA) [Mass fraction] 98 % [facility] 05-10-2023 15:14-0500 Body mass index (BMI) [Ratio] 30.04 kg/m2 Ricardo Jennifer DO Work Phone: [facility] 05-10-2023 15:14-0500 Body weight 72.12 kg Ricardo Jennifer DO Work Phone: [facility] 05-10-2023 15:14-0500 Diastolic blood pressure 70 mm[Hg] Ricardo Jennifer DO Work Phone: [facility] 05-10-2023 15:14-0500 Systolic blood pressure 110 mm[Hg] Ricardo Jennifer DO Work Phone: [facility] 01-27-2021 18:45-0400 Body height 154.94 cm Mohini Martinez Other [facility] Other 01-27-2021 18:45-0400 Body mass index (BMI) [Ratio] 28.34 kg/m2 Mohini Martinez Other [facility] 01-27-2021 18:45-0400 Body temperature 96.4 [degF] Mohini Martinez Other [facility] Other 01-27-2021 18:45-0400 Body weight 68.04 kg Mohini Martinez Other [facility] Other 01-27-2021 18:45-0400 Respiratory rate 18 /min Mohini Martinez Other [facility] Other 01-27-2021 18:45-0400 SaO2% (BldA) [Mass fraction] 99 % Mohini Martinez Other [facility] Other 12-22-2020 11:45-0400 Body height 154.94 cm Dudley Freeman Other [facility] Other 12-22-2020 11:45-0400 Body mass index (BMI) [Ratio] 28.34 kg/m2 Dudley Freeman Other [facility] Other 12-22-2020 11:45-0400 Body weight 68.04 kg Dudley Freeman Other [facility] [employer] Other Encounters Encounter Date Encounter Type Care Provider Facility Start: 08-28-2024 End: 08-28-2024 ambulatory RICARDO JENNIFER Not Available Start: 08-27-2024 End: 08-27-2024 Clinisync Result Encounter Josi VILLARREAL Work Phone: [facility] Unsolicited Start: 08-27-2024 End: 08-27-2024 Clinisync Result Encounter Josi VILLARREAL Work Phone: [facility] Unsolicited Start: 08-21-2024 End: 08-21-2024 Bamboo flowsheet Josi VILLARREAL Work Phone: [facility] Start: 08-21-2024 End: 08-21-2024 Bamboo flowsheet Josi VILLARREAL Work Phone: [facility] Start: 08-21-2024 End: 08-21-2024 Office outpatient visit 15 minutes Josi VILLARREAL Work Phone: [facility] Comment on above: Cyst of right ovary; Complex ovarian cyst Start: 08-21-2024 End: 08-21-2024 ambulatory JOSI ROSE Not Available Start: 08-15-2024 End: 08-15-2024 ambulatory Hannah Dahl Marker Facility:[facility] Start: 08-15-2024 End: 08-15-2024 Departed Referred Hannah Marker DO Work Phone: [facility] Start: 07-19-2024 End: 07-19-2024 Office outpatient visit [...] 09-26-2023 ambulatory RICARDO JENNIFER Not Available Start: 05-22-2023 End: 05-22-2023 ambulatory [facility] Work Phone: Start: 05-22-2023 End: 05-22-2023 Patient encounter procedure [facility] Work Phone: Start: 05-10-2023 End: 05-10-2023 flow sheet Ricardo Jennifer DO Work Phone: [facility] Comment on above: Second trimester pre gnancy; Diabetes mellitus screening Start: 07-09-2022 Encounter for other preprocedural examination DR RICARDO RODRIGUEZ . [facility] Start: 07-08-2022 End: 07-08-[address] [...] abnormal findings DR IRON GARCIA . [facility] Start: 09-26-2021 End: 09-27-[address] [...] 01-27-2021 End: 01-27-2021 ambulatory Mohini Martinez Other [facility] Other Start: 01-27-2021 Office outpatient vi sit 15 minutes Mohini Martinez [facility] Start: 12-22-2020 Office outpatient ne w 45 minutes Dudley Freeman [facility] Procedures Date Procedure Procedure Detail Performing Clinician Start: 08-27-2024 ALL LDH Josi Rose PA Work Phone: Start: 06-28-2024 ALL CBC WITH AUTO DIFF [...] Screening for malign ant neoplasm of cervix [facility] Start: 11-26-2024 Influenza vaccination Influenz a Vaccine (Season Ended) [facility] Start: 09-24-2024 End: 09-24-2024 Patient encounter procedure 09/24/2024 8:50 AM EDT [facility] [address] [place], [place] [address] [place] [address] Ricardo Rodriguez, DO [address] [place] [address] [facility] Start: 08-28-2024 End: 08-28-2024 Patient encounter procedure 08/28/2024 2:00 PM EDT Consult [facility] [address] [place] [id number] Ricardo Rodriguez, DO [address] [place] [address] [facility] Start: 08-21-2024 End: 08-21-2025 AFP tumor marker AFP tumor marker Lab Routine Complex ovarian cyst Expected: 08/21/2024 (Approximate), Expires: 08/21/2025 [facility] Comment on above: Expected: 08/21/2024 (Approximate), Expires: 08/21/2025 Start: 08-21-2024 End: 08-21-2025 CA 125 CA 125 Lab Routine Complex ovarian cyst Expected: 08/21/2024 (Approximate), Expires: 08/21/2025 [facility] Comment on above: Expected: 08/21/2024 (Approximate), Expires: 08/21/2025 Start: 08-21-2024 End: 08-21-2025 Carcinoembryonic Ag [Mass/volume] in Serum or Plasma CEA Lab Routine Complex ovarian cyst Expected: 08/21/2024 (Approximate), Expires: 08/21/2025 [facility] Comment on above: Expected: 08/21/2024 (Approximate), Expires: 08/21/2025 Start: 08-21-2024 End: 08-21-2025 HCG, tumor marker HCG, tumor marker Lab Routine Complex ovarian cyst Expected: 08/21/2024 (Approximate), Expires: 08/21/2025 [facility] Comment on above: Expected: 08/21/2024 (Approximate), Expires: 08/21/2025 Start: 08-21-2024 End: 08-21-2025 Lactate dehydrogenase, isoenzymes Lactate dehydrogenase, isoenzymes Lab Routine Complex ovarian cyst Expected: 08/21/2024 (Approximate), Expires: 08/21/2025 [facility] Work Phone: Comment on above: Expected: 08/21/2024 (Approximate), Expires: 08/21/2025 Start: 08-15-2024 Urine culture [facility] Start: 08-15-2024 Bacteria identified in Urine by Culture Urine Culture [facility] Start: 05-24-2024 End: 05-24-2024 Patient encounter procedure 05/24/2024 8:30 AM EST Office Visit [facility] [address] [place] [id number] Ricardo Rodriguez, DO [address] [place] [address] [facility] Start: 03-01-2024 End: 03-01-2025 CBC W Auto Differential panel - Blood CBC and differential Lab Routine Abnormal vaginal bleeding Expected: 03/01/2024 (Approximate), Expires: 03/01/2025 [facility] Comment on above: Expected: 03/01/2024 (Approximate), Expires: 03/01/2025 Start: 03-01-2024 End: 03-01-2025 DHEA DHEA Lab Routine Abnormal vaginal bleeding Expected: 03/01/2024, Expires: 03/01/2025 [facility] Comment on above: Expected: 03/01/2024 , Expires: 03/01/2025 Start: 03-01-2024 End: 03-01-2025 DHEA-sulfate DHEA-sulfate Lab Routine Abnormal vaginal bleeding Expected: 03/01/2024 (Approximate), Expires: 03/01/2025 [facility] Comment on above: Expected: 03/01/2024 (Approximate), Expires: 03/01/2025 Start: 03-01-2024 End: 03-01-2025 Follicle stimulating hormone Follicle stimulating hormone Lab Routine Abnormal vaginal bleeding Expected: 03/01/2024 (Approximate), Expires: 03/01/2025 [facility] Comment on above: Expected: 03/01/2024 (Approximate), Expires: 03/01/2025 Start: 03-01-2024 End: 03-01-2025 hCG, quantitative, hCG, quantitative, Lab Routine Abnormal vaginal bleeding Expected: 03/01/2024 (Approximate), Expires: 03/01/2025 [facility] Work Phone: Comment on above: Expected: 03/01/2024 (Approximate), Expires: 03/01/2025 Start: 03-01-2024 End: 03-01-2025 Hemoglobin A1c/Hemoglobin.total in Blood Hemoglobin A1c Lab Routine Abnormal vaginal bleeding Expected: 03/01/2024 (Approximate), Expires: 03/01/2025 [facility] Comment on above: Expected: 03/01/2024 (Approximate), Expires: 03/01/2025 Start: 03-01-2024 End: 03-01-2025 Luteinizing hormone Luteinizing hormone Lab Routine Abnormal vaginal bleeding Expected: 03/01/2024 (Approximate), Expires: 03/01/2025 [facility] Comment on above: Expected: 03/01/2024 (Approximate), Expires: 03/01/2025 Start: 03-01-2024 End: 03-01-2025 Thyrotropin [Units/volume] in Serum or Plasma TSH Lab Routine Abnormal vaginal bleeding Expected: 03/01/2024 (Approximate), Expires: 03/01/2025 [facility] Comment on above: Expected: 03/01/2024 (Approximate), Expires: 03/01/2025 Start: 03-01-2024 End: 03-01-2025 Thyroxine (T4) free [Mass/volume] in Serum or Plasma T4, free Lab Routine Abnormal vaginal bleeding Expected: 03/01/2024 (Approximate), Expires: 03/01/2025 [facility] Comment on above: Expected: 03/01/2024 (Approximate), Expires: 03/01/2025 Start: 03-01-2024 End: 03-01-2025 US for US PELVIS-TRANSVAG IF INDICATED Imaging Routine Abnormal vaginal bleeding Expected: 03/01/2024 (Approximate), Expires: 03/01/2025 [facility] Comment on above: Expected: 03/01/2024 (Approximate), Expires: 03/01/2025 Start: 03-01-2024 End: 03-01-2024 Patient encounter procedure 03/01/2024 11:10 AM EST Office Visit [facility] [address] [place] [phone] Ricardo Rodriguez, DO [address] [place] [address] Arrived [facility] Comment on above: Arrived Start: 12-05-2023 Screening for malign ant neoplasm of cervix HPV/Cotest [facility] Start: 11-27-2023 Influenza vaccination Influenza Vacc ine (#1) [facility] Start: 05-26-2023 End: 05-26-2023 Patient encounter procedure 05/26/2023 9:50 AM EST Routine [facility] [address] [place] [phone] Ricardo Rodriguez, DO [address] [place], [place] [id number] [facility] Start: 05-10-2023 End: 05-10-2024 CBC panel - Blood by Automated count CBC Lab Routine Diabetes mellitus screening Expected: 05/10/2023 (Approximate), Expires: 05/10/2024 [facility] Work Phone: Comment on above: Expected: 05/10/2023 (Approximate), Expires: 05/10/2024 Start: 05-10-2023 End: 05-10-2024 Measurement of glucose 1 hour after glucose challenge for glucose tolerance test Glucose tolerance, 1 hour Lab Routine Diabetes mellitus screening Expected: 05/10/2023 (Approximate), Expires: 05/10/2024 [facility] Comment on above: Expected: 05/10/2023 (Approximate), Expires: 05/10/2024 Start: 11-26-2022 Influenza vaccination Influenza Vacc ine (#1) [facility] Immunizations Immunization Date Immunization Notes Care Provider Fa cili 01-25-2022 influenza virus vacc ine, unspecified formulation Ricardo Rodriguez DO Work Phone: [facility] Payers Date Payer Category Payer Self-pay [id number] 2024 Unknown [id number] 2022 Blue Cross Blue Shield [id number] 2022 Unknown BCBS BCBS xxxxxx [id number] 2022-Present [phone] [address] [place] [address] [id number] 1993 Unknown [id number] 2.16.840.1.433711.3.579.2.59 3 1993 Unknown [id number] 2.16.840.1.040979.3.579.2.59 3 1993 Unknown [id number] 2.16.840.1.577364.3.579.2.59 3 1993 Unknown [id number] 2.16.840.1.266096.3.579.2.59 3 1993 Unknown [id number] 2.16.840.1.757833.3.579.2.59 3 1993 Unknown [id number] 2.16.840.1.281913.3.579.2.59 3 1993 Unknown [id number] 2.16.840.1.351196.3.579.2.59 3 1993 Unknown [id number] 2.16.840.1.090099.3.579.2.59 3 1993 Unknown [id number] 2.16.840.1.887885.3.579.2.59 3 1993 Unknown [id number] 2.16.840.1.694271.3.579.2.59 3 1993 Unknown [id number] 2.16.840.1.811060.3.579.2.59 3 1993 Unknown [id number] 2.16.840.1.701359.3.579.2.59 3 1993 Unknown [id number] 2.16.840.1.814452.3.579.2.59 3 1993 Unknown [id number] 2.16.840.1.550223.3.579.2.59 3 1993 Unknown [id number] 2.16.840.1.199240.3.579.2.59 3 1993 Unknown [id number] 2.16.840.1.462801.3.579.2.59 3 1993 Unknown [id number] 2.16.840.1.169115.3.579.2.59 3 1993 Unknown [id number] 2.16.840.1.860669.3.579.2.59 3 1993 Unknown [id number] 2.16.840.1.269660.3.579.2.59 3 1993 Unknown [id number] 2.16.840.1.038017.3.579.2.59 3 1993 Unknown [id number] 2.16.840.1.959704.3.579.2.59 3 1993 Unknown [id number] 2.16.840.1.740115.3.579.2.59 3 1993 Unknown [id number] 2.16.840.1.461077.3.579.2.59 3 1993 Unknown [id number] 2.16.840.1.188592.3.579.2.59 3 1993 Unknown [id number] 2.16.840.1.660802.3.579.2.59 3 1993 Unknown [id number] 2.16.840.1.777679.3.579.2.12 59 1993 Unknown [id number] 2.16.840.1.545727.3.579.2.12 59 1993 Unknown [id number] 2.16.840.1.118933.3.579.2.12 59 1993 Unknown [id number] 2.16.840.1.971837.3.579.2.12 59 1993 Unknown [id number] 2.16.840.1.485214.3.579.2.12 59 1959 Unknown [id number] 1959 Unknown [id number] Unknown [id number] 2.16.840.1.257807.19 Unknown O [id number] Unknown Osiel BC/BS [id number] Unknown [id number] 2.16.840.1.623129.3.579.2.53 1 Social History Date Type Detail Facility Unknown if ever smoked [facility] Other Start: 01-28-2023 End: 09-21-2023 Sex Assigned At [facility] Start: 01-28-2023 End: 05-22-2023 Tobacco smoking status NHIS Never smoked tobacco [facility] Start: 05-10-2023 End: 08-21-2024 Alcohol intake Current drinker of alcohol (finding) [facility] Start: 01-28-2023 End: 09-21-2023 History of Social function [facility] How [...] Sex Assigned At Female [facility] Start: 08-28-2023 Gender identity Identifies as female gender (finding) [facility] Start: 11-22-2022 Sexual orientation Heterosexual (finding) [facility] Start: 08-17-2024 Sex Female (finding) [facility] Clinical Notes 12-22-2020 to 08-21-2024 CHERELLE Abdi - 08/21/2024 10:20 AM Mallorie Guzman, PRIMARY HEALTH ORGANISATION MANAGER - 07/19/2024 11:40 AM Mallorie Guzman, PARUL - 03/01/2024 11:10 AM Sosa Thornton, PRIMARY HEALTH ORGANISATION MANAGER - 05/10/2023 2:50 PM EST Note Date & Type Note Facility 08-21-2024 History of Present illness Narrative Reason for Appointment: Patient ID: Ester Macias is a 28 y.o. female who presents for Ovarian Cyst Patient presents today for Acute Visit. MEDICATIONS No current outpatient medications ALLERGIES No Known Allergies PROBLEMS Active Ambulatory [...] SYSTEMS Review of Systems: Review of Systems Constitutional: Negative. HENT: Negative. Eyes: Negative. Respiratory: Negative. Cardiovascular: Negative. Gastrointestinal: Negative. Genitourinary: Negative. Musculoskeletal: Negative. Skin: Negative. Neurological: Negative. All other systems reviewed and are negative. Hematological: Negative. Endocrine: Negative. Allergic/Immunologic: Negative. OBJECTIVE Objective: Physical Exam Constitutional: Appearance: Normal appearance. She is normal weight. HENT: Head: Normocephalic. Cardiovascular: Rate and Rhythm: Normal rate. Pulses: Normal pulses. Pulmonary: Effort: Pulmonary effort is normal. Breath sounds: Normal breath sounds. Abdominal: Palpations: Abdomen is soft. Comments: Right lower quadrant pain, known ovarian cyst Musculoskeletal: General: Normal range of motion. Neurological: General: No focal deficit present. Mental Status: She is alert and oriented to person, place, and time. Psychiatric: Mood and Affect: Mood normal. Behavior: Behavior normal. Thought Content: Thought content normal. Judgment: Judgment normal. Vitals and nursing note reviewed. Vitals: Estimated body mass index is 27.93 kg/m as calculated from the following: Height as of 11/23/22: 5' 1 . Weight as of this encounter: 147 lb 12.8 oz. BP: 120/78 No LMP recorded. ASSESSMENT & PLAN ICD-10-CM 1. Cyst of right ovary N83.201 2. Complex ovarian cyst N83.299 Lactate dehydrogenase, isoenzymes CEA HCG, tumor marker CA 125 AFP tumor marker Lactate dehydrogenase, isoenzymes CEA HCG, tumor marker CA 125 AFP tumor marker Patient presents for er follow up on 08/15/24. Patient was seen for increased right lower quadrant pain with history of cysts and endometriosis. US revealed 4 cm complex cyst. Patient has had 2 previous dx lap due to cyst and endometriosis. Patient using 800mg ibuprofen for pain. Pt wishes to proceed with surgical examination to check endometriosis and possible ovarian cystectomy. Tumor markers are also ordered today. Documented by CHERELLE Abdi on behalf of: CHERELLE Abdi documented in this encounter [facility] 07-19-2024 History of Present illness Narrative Reason for Appointment: Patient ID: Ester Macias is a 28 y.o. female who [...] nursing note reviewed. Exam conducted with a weights and measures inspector present. Vitals: Estimated body mass index is [...] patient. Patient given 3 samples of Tyblume Lot:[id number] Exp: 02/19 Documented by Abigail Guzman LPN on behalf of: Ricardo Rodriguez DO documented in this encounter [facility] 03-01-2024 History of Present illness Narrative Reason for Appointment: Patient ID: Ester Macias is a 28 y.o. female who [...] nursing note reviewed. Exam conducted with a weights and measures inspector present. Vitals: Estimated body mass index is [...] Ricardo Rodriguez DO documented in this encounter [facility] 05-10-2023 History of Present illness [...] nursing note reviewed. Exam conducted with a weights and measures inspector present. Vitals: Estimated body mass index is [...] Ricardo Rodriguez DO documented in this encounter [facility] 07-08-2022 Note OPERATIVE NOTE OPERATION DATE: 07/08/2022 PROCEDURE: Diagnostic laparoscopy with fulguration of ovarian endometrial implant. PREOPERATIVE DIAGNOSIS: Pelvic pain. POSTOPERATIVE DIAGNOSIS: Pelvic pain. ANESTHESIA: General. SURGEON: Ricardo Rodriguez D.O. MARKET DEVELOPMENT MANAGER: DEVIN Miles URINE OUTPUT: Yellow and [...] to Recovery Room in stable condition. [facility] 12-22-2020 Evaluation note Encounter Date Diagnosis Assessment Notes Nov, Irritable bowel syndrome with both constipation and diarrhea (ICD-10 - K58.2) LABS INDICATED ABOVE START TRIAL OF DICYCLOMINE 20 BID RTO 4 WEEKS [facility] Other Evaluation [facility] Other Evaluation note* Diagnosis Second trimester state, incidental Diabetes mellitus screening Screening for diabetes mellitus documented in this encounter [facility] noteNo [facility] Work [facility]: Evaluation note* Diagnosis Abnormal vaginal bleeding Other specified noninflammatory disorder of vagina PCOS (polycystic ovarian syndrome) Polycystic ovaries documented in this encounter [facility]* Diagnosis Irregular periods/menstrual cycles Pelvic pain in female Unspecified symptom associated with female genital organs documented in this encounter [facility]* Diagnosis Cyst of right ovary Other and unspecified ovarian cyst Complex ovarian cyst [facility] - [facility]orted* Type Description Date Medical History anxiety/depression Medical History IBS Surgical History TONSILLECTOMY [facility] Other History general Narrative - [facility] Other Summary Purpose Family History No Family History Records Found Relationship Condition Age at Onset Recorded Date/T ricardo brother Unknown father Unknown Hypertension Unknown grandparent Hypertension Unknown Diabetes mellitus Unknown grandparent Diabetes mellitus Unknown Not Specified Malignant neoplasm Unknown Relationship Condition Age at Onset Recorded Date/T ricardo brother Unknown father Unknown Hypertension Unknown grandparent Hypertension Unknown Diabetes mellitus Unknown grandparent Diabetes mellitus Unknown mother Malignant neoplasm Unknown Advance Directives No Advanced Directives Records Found Advance Directive Response Recorded Date/ Time Advance Directives No April 9:19am Advance Directive Response Recorded Date/ Time Advance Directives No April 10:19am Chief Complaint and Reason for Visit Chief Complaint deep cough, exposed to RSV and flu Chief Complaint Admit Date Unknown August 15, 2024 8:02p m Additional Source Comments REASON FOR VISIT (unrecogniz ed section and content) Reason Comments Routine Visit Reason Comments continuous vaginal bleeding Reason Comments irregular cycles Reason Comments Ovarian Cyst INFORMATION SOURCE (unrecogn ized section and content) DATE CREATED AUTHOR 07/13/2022 [facility] DATE CREATED AUTHOR AUTHOR'S ORGANIZ ATION 08/23/2024 [facility] DATE CREATED AUTHOR AUTHOR'S ORGANIZ ATION 08/29/2024 [facility] Care Teams (unrecognized sec tion and content) Grain Picker Relationship Specialty Start Date End Date Iron Garcia MD [address] [place] [address] PCP - General Family Medicine 11/23/22 Team Status: Active Member Role Status Dates Iron Garcia MD Primary Care Provider Active Team Status: Inactive Member Role Status Dates Iron Garcia MD Primary Care Provider Active Start: May 22, 2023 End: May 22, 2023 Teresa Wilkins APRN Attending Provider Active Start: May 22, 2023 End: May 22, 2023 Grain Picker Relationship Specialty Start Date End Date Iron Garcia MD [address] [place] [address] PCP - General Family Medicine 11/23/22 Grain Picker Relationship Specialty Start Date End Date Iron Garcia MD [address] [place] [address] PCP - General Family Medicine 11/23/22 Grain Picker Relationship Specialty Start Date End Date Iron Garcia MD [address] [place] [address] PCP - General Family Medicine 11/23/22 Grain Picker Relationship Specialty Start Date End Date Iron Garcia MD [address] [place] [address] PCP - General Family Medicine 11/23/22 Grain Picker Relationship Specialty Start Date End Date Iron Garcia MD [address] [place] [facility] [address] PCP - General Family Medicine 08/21/24 Grain Picker Relationship Specialty Start Date End Date Iron Garcia MD [address] [place] [facility] [address] PCP - General Family Medicine 08/21/24 Team Status: Inactive Member Role Status Dates Hannah David DO Attending Provider Active Start: August 15, 2024 End: August 15, 2024 Goals (unrecognized section and content) Goals may [...] BE BASED ON THE PRIMARY CLINICAL RECORDS. [facility] [employer] [facility]. provides no warranty or guarantee of the accuracy or completeness of information in this document.
== END 2024-08-31 09:56 | disposition home or self-care (01) ==
LOC: PST 09:55
PROVIDERS: PCP Family Medicine; Visit Provider Obstetrics & Gynecology
DX: Z01.818 Encounter for other preprocedural examination (principal); N83.201 Unspecified ovarian cyst, right side; N83.299 Other ovarian cyst, unspecified side; R10.2 Pelvic and perineal pain

== ENCOUNTER 2024-09-13 06:17 | Day surgery (SDC) | payer BC, SELFPAY ==
[2024-08-31 10:18] VITALS: BP 118/76; PULSE 61; TEMP 36.3; O2SAT 98; BMI 26.8
[2024-09-13] VITALS (10 sets, daily range): BP systolic 93–130; BP diastolic 51–76; PULSE 53–86; TEMP 36–36.8; O2SAT 96–100
--- OUTSIDE RECORDS SUMMARY | 2024-09-13 06:19 | XMS_ITS | CCD ---
Author Organization [facility] Care Team Providers Care Wellness Nurse Rn Name Role Phone LydiaDudley Unavailable Mohini Martinez Unavailable JENNIFER ., DR SILVA Admitting Unavailable JENNIFER ., DR SILVA Attending Unavailable HOY ., DR PERDUE Primary Care Unavailable JAMEST[place], DR DUDLEY Emanuel Consulting Unavailable JENNIFER ., DR SIVLA Consulting Unavailable LEANDRO, JAMIL Admitting Unavailable JAMIL REEVES Attending Unavailable HOY ., DR PERDUE Primary Care Unavailable HOY ., DR PERDUE Consulting Unavailable DUDLEY LANE Consulting Unavailable HOY ., DR PERDUE Admitting Unavailable HOY ., DR PERDUE Attending Unavailable HOY ., DR PERDUE Primary Care Unavailable HOY ., DR PERDUE Consulting Unavailable JAME[place], DR UDDLEY Emanuel Consulting Unavailable JENNIFER ., DR SILVA [...] Unavailable Iron Garcia MD Primary Care Provider [phone] Iron Garcia MD Primary Care Provider [phone] Hannah David Attending Unavailable Hannah David Admitting Unavailable Hannah David DO Attending Provider [phone] RICARDO RODRIGUEZ Attending Unavailable JOSI ROSE Attending Unavailable RICARDO RODRIGUEZ Attending Unavailable RICARDO RODRIGUEZ Attending Unavailable JENNIFERRICARDO Attending Unavailable Medications Current Medications Medication Drug Class(es) Dates Sig (Normalized) Sig (Original) [id number] 200 actuat albuterol 0.09 mg/actuat metered dose [...] DAILY NEEDED FOR NAUSEA 0 02/19/2023 Active [id number]-Kczg Fum-Folic Ac-Om3 (One A Day Women's Dha) 28 mg iron- 800 mcg combo pack (2 sources) Start: 05-22-2023 Ocmsbi01-Ozcr Fum-Folic Ac-Om3 (One A Day Women's Dha) 28 mg iron- 800 mcg combo pack Active PKG PO May 22, 2023 1:00am Start: 05-22-2023 [id number] Fum-Folic Ac-Om3 (One A Day Women's Dha) [...] Date Documented Da te Episodic/Chronic Abdominal pain (10 sources) Abdominal pain; Translations: [Unspecified abdominal pain] [...] unspecified] Onset: 11-21-2021 Chronic Other endocrine disorders (11 sources) Hypoglycemia; Translations: [Hypoglycemia, unspecified] Onset: 05-26-2023 [...] encounter status] Onset: 02-03-2022 Episodic Ovarian cyst (11 sources) Unspecified ovarian cyst, left side; Translations: [...] Onset: 04-02-2022 Episodic Deficiency and other anemia (11 sources) Anemia; Translations: [Anemia, unspecified] Onset: 05-26-2023 [...] 01-13-2022 Episodic Other and delivery including normal (13 sources) Second trimester ; Translations: [Encounter for supervision of normal , unspecified, second trimester] Onset: 06-13-2023 05-02-2023 Episodic Other upper respiratory infections (4 sources) Acute pharyngitis, unspecified; Translations: [ACUTE PHARYNGITIS UNSPECIFIED] Onset: 01-12-2022 Episodic Polyhydramnios and other problems of amniotic cavity (11 sources) Abnormal amniotic fluid; Translations: [Polyhydramnios, unspecified trimester, not applicable or unspecified] Onset: 05-26-2023 06-13-2023 Episodic Residual codes; unclassified (11 sources) Gestation period, 32 weeks; Translations: [32 weeks gestation of ] Onset: 06-30-2023 06-30-2023 Episodic Unclassified (1 source) CONTACT W/AND (SUSP) EXPOS COVID-19; Translations: [CONTACT W/AND (SUSP) EXPOS COVID-19] Onset: 04-01-2022 Results Test Name Value Interpretation Reference Range Facility ALL LDHon 08-27-2024 LDH [Catalytic activity/Vol] 188 U/L 81 - 234 U/L [facility] Urine Cultureon 08-15-2024 Bacteria identified Cx Nom (U) <9,000 colonies/ml mixed bacterial skin contaminants 2 Days PERFORMED BY: [facility] [address] [place] [address] PATHOLOGIST FISHING MANAGER GHAZAL Hu [facility] Comment on above: Performed By: #### C UU #### [facility] [address] ALL CBC WITH AUTO DIFFon BASOPHILS ABSOLUTE AUTO [facility] Basophils/100 WBC (Bld) 0.5 % 0.2 - 2.0 % [facility] Eosinophils/100 WBC (Bld) 2.6 % 0.9 - 7.0 % [facility] Erythrocyte distribution width (RBC) [Ratio] 13.3 % 11.0 - 15.0 % [facility] Hematocrit (Bld) [Volume fraction] 39.2 % 36.0 - 48.0 % [facility] Hemoglobin (Bld) [Mass/Vol] 12.8 g/dL 12.0 - 16.0 g/dL [facility] IMMATURE GRANULOCYTES ABS [facility]O [facility].02 [facility] Imm[facility] granulocytes/100 WBC (Bld) 0.3 % 0.0 - 0.5 % [facility] Interpretation and review of laboratory results Abnormal [facility] LYMPHOCYTES ABSOLUTE AUTO 1.7 [facility] Lymphocytes/100 WBC (Bld) 27.1 % 20.5 - 60.0 % [facility] MCH (RBC) [Entitic mass] 29.4 pg 26. 7 - 34.0 pg [facility] MCHC (RBC) [Mass/Vol] 32.7 g/dL 29.9 - 35.2 g/dL [facility] MCV (RBC) [Entitic vol] 89.9 fL 81.0 - 99.0 fL [facility] MONOCYTES ABSOLUTE AUTO 0.6 N [facility] Monocytes/100 WBC (Bld) 9.9 % 1.7 - 12.0 % [facility] NEUTROPHILS ABSOLUTE AUTO 3.7 [facility] Neutrophils/100 WBC (Bld) 59.6 % 43.0 - 75.0 % [facility] Platelet mean volume (Bld) [Entitic vol] 8.9 fL Low 9.5 - 13.5 fL [facility] TBH EO # 0.2 [facility] PLT 279 [facility] RBC 4.36 [facility] WBC 6.2 [facility] Laboratory - Microbiology an d Antimicrobial susceptibilityOrdered By: Teresa Wilkins on 05-22-2023 SARS-CoV-2 (COVID-19) RNA SHIRIN+probe Ql (Unsp spec) [facility] Urinalysis macro (dipstick) panel (U)on 05-10-2023 Bilirubin, UA Negative Negative - 4(70) +++ mg/dL [facility] Blood, UA Negative Negative - 50 Jayson/mcL [facility] Clarity, UA Clear [facility] Color, UA Yellow [facility] Glucose, UA Negative Negative - 1999(110) ++++ mg/dL [facility] Interpretation and review of laboratory results Abnormal [facility] Ketones, UA Positive Negative - 160(16) ++++ mg/dL [facility] Comment on above: trace Leukocytes, UA Trace Negative - 500+++ Lolita/mcL [facility] Nitrite, UA Negative Negative - Positive [facility] pH, UA 6.0 5 - 9 [facility] Protein, UA Negative Negative - 1999(20) ++++ mg/dL [facility] Spec Grav, UA 1.030 1 - 1.03 [facility] Urobilinogen, UA 0.2 0.2 - 12 mg/dL [facility] CBC AUTO DIFFon 07-08-2022 BASO # 0.0 103/ul Normal 0.0-0.1 [facility] Comment on above: Performed By: #### R F #### [facility] [address] [place] [address] Dr. Venkat Sloan Basophils/100 WBC (Bld) 0.5 % Normal 0.2-2.0 [facility] Comment on above: Performed By: #### R F #### [facility] [address] [place] [address] Dr. Venkat Sloan EO # 0.1 103/ul Normal 0.0-0.7 [facility] Comment on above: Performed By: #### R F #### [facility] [address] [place] [address] Dr. Venkat Sloan Eosinophils/100 WBC (Bld) 1.7 % Normal 0.9-7.0 [facility] Comment on above: Performed By: #### R F #### [facility] [address] [place] [address] Dr. Venkat Sloan Erythrocyte distribution width (RBC) [Ratio] 12.7 % Normal 11.0-15.0 [facility] Comment on above: Performed By: #### R F #### [facility] [address] [place] [address] Dr. Venkat Sloan Hematocrit (Bld) [Volume fraction] 40.4 % Normal 36.0-48.0 [facility] Comment on above: Performed By: #### R F #### [facility] [address] [place] [address] Dr. Venkat Sloan Hemoglobin (Bld) [Mass/Vol] 13.1 g/dL Normal 12.0-16.0 [facility] Comment on above: Performed By: #### R F #### [facility] [address] [place] [address] Dr. Venkat Slaon IG # 0.02 10e3/ul Normal 0.00-0.03 [facility] Comment on above: Performed By: #### R F #### [facility] [address] [place] [address] Dr. Venkat Sloan IG % 0.3 % Normal 0.0-0.5 [facility] Comment on above: Performed By: #### R F #### [facility] [address] [place] [address] Dr. Venkat Sloan LYMPH # 2.0 103/ul Normal 1.2-3.8 [facility] Comment on above: Performed By: #### R F #### [facility] [address] [place] [address] Dr. Venkat Sloan Lymphocytes/100 WBC (Bld) 26.2 % Normal 20.5-60.0 [facility] Comment on above: Performed By: #### R F #### [facility] [address] [place] [address] Dr. Venkat Sloan MANUAL DIFF REQ NO Normal [facility] Comment on above: Performed By: #### R F #### [facility] [address] [place] [address] Dr. Venkat Sloan MCH (RBC) [Entitic mass] 28.4 pg Normal 26.7-34.0 [facility] Comment on above: Performed By: #### R F #### [facility] [address] [place] [address] Dr. Venkat Sloan MCHC (RBC) [Mass/Vol] 32.4 g/dL Normal 29.9-35.2 [facility] Comment on above: Performed By: #### R F #### [facility] [address] [place] [address] Dr. Venkat Sloan MCV (RBC) [Entitic vol] 87.4 fL Normal 81.0-99.0 [facility] Comment on above: Performed By: #### R F #### [facility] [address] [place] [address] Dr. Venkat Sloan MONO # 0.7 103/ul Normal 0.3-0.8 [facility] Comment on above: Performed By: #### R F #### [facility] [address] [place] [address] Dr. Venkat Sloan Monocytes/100 WBC (Bld) 8.8 % Normal 1.7-12.0 [facility] Comment on above: Performed By: #### R F #### [facility] [address] [place] [address] Dr. Venkat Sloan NEUT # 4.8 103/ul Normal 1.4-6.5 [facility] Comment on above: Performed By: #### R F #### [facility] [address] [place] [address] Dr. Venkat Sloan Neutrophils/100 WBC (Bld) 62.5 % Normal 43.0-75.0 [facility] Comment on above: Performed By: #### R F #### [facility] [address] [place] [address] Dr. Venkat Sloan Platelet mean volume (Bld) [Entitic vol] 8.5 fL Critically low 9.5-13.5 [facility] Comment on above: Performed By: #### R F #### [facility] [address] [place] [address] Dr. Venkat Sloan PLT 331 103/ul Normal 150-450 [facility] Comment on above: Performed By: #### R F #### [facility] [address] [place] [address] Dr. Venkat Sloan RBC 4.62 106/ul Normal 4.20-5.40 [facility] Comment on above: Performed By: #### R F #### [facility] [address] [place] [address] Dr. Venkat Sloan WBC 7.7 103/ul Normal 4.0-11.0 [facility] Comment on above: Performed By: #### R F #### [facility] [address] [place] [address] Dr. Venkat Sloan PREG QUANT HCGon 07-08-2022 HCG QUANT <1 Normal [facility] Comment on above: Performed By: #### P REGQNT #### [facility] [address] [place] [address] Dr. Venkat Sloan HCG RANGE SEE BELOW Normal [facility] Comment on above: Result Comment: 5-50 0.2-1 WEEK 50-500 1-2 WEEKS 100-5,000 2-3 WEEKS 500-10,000 3-4 WEEKS 1,000-50,000 4-5 WEEKS 10,000-100,000 5-6 WEEKS 15,000-200,000 6-8 WEEKS 10,000-100,000 2-3 MONTHS Performed By: #### P REGQNT #### [facility] [address] [place] [address] Dr. Venkat Sloan PROGESTERONEon 06-23-2022 Progesterone 5.7 ng/mL Normal [facility] Comment on above: Result Comment: Foll icular phase 0.1 - 0.9 Luteal phase 1.8 - 23.9 Ovulation phase 0.1 - 12.0 First trimester 11.0 - 44.3 Second trimester 25.4 - 83.3 Third trimester 58.7 - 214.0 Postmenopausal 0.0 - 0.1 Performed By: #### T SH #### [facility] [address] [place] [address] Dr. Venkat Sloan PREG QUANT HCGon 05-31-2022 HCG QUANT 1 mIU/mL Normal [facility] Comment on above: Performed By: #### P REGQNT #### [facility] [address] [place] [address] Dr. Venkat Sloan HCG RANGE SEE BELOW Normal [facility] Comment on above: Result Comment: 5-50 0.2-1 WEEK 50-500 1-2 WEEKS 100-5,000 2-3 WEEKS 500-10,000 3-4 WEEKS 1,000-50,000 4-5 WEEKS 10,000-100,000 5-6 WEEKS 15,000-200,000 6-8 WEEKS 10,000-100,000 2-3 MONTHS Performed By: #### P REGQNT #### [facility] [address] [place] [address] Dr. Venkat Sloan PROGESTERONEon 05-21-2022 Progesterone 12.4 ng/mL Normal [facility] Comment on above: Result Comment: Foll icular phase 0.1 - 0.9 Luteal phase 1.8 - 23.9 Ovulation phase 0.1 - 12.0 First trimester 11.0 - 44.3 Second trimester 25.4 - 83.3 Third trimester 58.7 - 214.0 Postmenopausal 0.0 - 0.1 Performed By: #### I NFLUAB #### [facility] [address] [place] [address] Dr. Venkat Sloan MRI BRAIN WO W [...] LAM VELA Date: 2022-05-04 08:42 Normal [facility] PREG QUANT HCGon 05-04-2022 HCG QUANT <1 Normal [facility] Comment on above: Performed By: #### R F #### [facility] [address] [address] [address] Venkat Sloan HCG RANGE SEE BELOW Normal [facility] Comment on above: Result Comment: 5-50 0.2-1 WEEK 50-500 1-2 WEEKS 100-5,000 2-3 WEEKS 500-10,000 3-4 WEEKS 1,000-50,000 4-5 WEEKS 10,000-100,000 5-6 WEEKS 15,000-200,000 6-8 WEEKS 10,000-100,000 2-3 MONTHS Performed By: #### R F #### [facility] [address] [address] [address] Venkat Sloan XR HYSTEROSALPINGOGRAMon XR HYSTEROSALPINGOGRAM [...] LAM VELA Date: 2022-05-04 16:09 Normal [facility] PROGESTERONEon 04-24-2022 Progesterone 0.4 ng/mL Normal [facility] Comment on above: Result Comment: Foll icular phase 0.1 - 0.9 Luteal phase 1.8 - 23.9 Ovulation phase 0.1 - 12.0 First trimester 11.0 - 44.3 Second trimester 25.4 - 83.3 Third trimester 58.7 - 214.0 Postmenopausal 0.0 - 0.1 Performed By: #### I NFLUAB #### [facility] [address] [place] [address] Dr. Venkat Sloan CULTURE SPUTUMon 04-02-2022 CULTURE SPUTUM Culture Observations : NORMAL RESPIRATORY NATALEE. Normal [facility] Comment on above: Performed By: #### R F #### [facility] [address] [address] [address] Venkat Sloan SPUTUM GRAM STAINon 04-02-19 23 COMMENTS Normal [facility] Comment on above: Performed By: #### R F #### [facility] [address] [place] [address] Dr. Venkat Sloan DIPHTHEROIDS Normal [facility] Comment on above: Performed By: #### R F #### [facility] [address] [address] [address] Venkat Sloan EPITHELIALS <25 Normal [facility] Comment on above: Performed By: #### R F #### [facility] [address] [place] [address] Dr. Venkat Sloan FUNGAL ELEMENTS Normal [facility] Comment on above: Performed By: #### R F #### [facility] [address] [address] [address] Venkat Sloan GRAM NEG BACILLI RARE Normal [facility] Comment on above: Performed By: #### R F #### [facility] [address] [place] [address] Dr. Venkat Sloan GRAM NEG DIPPLOCOCCI Normal [facility] Comment on above: Performed By: #### R F #### [facility] [address] [place] [address] Dr. Venkat Sloan GRAM POS BACILLI Normal [facility] Comment on above: Performed By: #### R F #### [facility] [address] [place] [address] Dr. Venkat Sloan GRAM POSITIVE COCCI RARE Normal [facility] Comment on above: Performed By: #### R F #### [facility] [address] [place] [address] Dr. Venkat Sloan WBC (Bld) [#/Vol] 10*3/uL Normal [facility] Comment on above: Performed By: #### R F #### [facility] [address] [place] [address] Dr. Venkat Sloan [facility] PCR [facility])on SARS-CoV-2 (COVID-19) RNA SHIRIN+probe Ql (Unsp spec) Not detected Normal NOT DETECTED [facility] Comment on above: Result Comment: This test is not yet approved or cleared by the [place] FDA. When there are no FDA-approved or cleared tests available, and other criteria are met, FDA can make tests available under an emergency access mechanism called an Emergency Use Authorization (EUA). The EUA for this test is supported by the [place] of Health and Human Service's (HHS's) declaration [...] SARS-CoV-2. Performed By: #### P REGQNT #### [facility] [address] [place] [address] Dr. Venkat Sloan INFLUENZA A AND B AGon 04-01 [facility] SEE BELOW Normal [facility] Comment on above: Result Comment: Nega tive for Flu A protein angiten. Infection due to Flu A cannot be ruled out. Flu A angiten in the sample may be below the detection limit of the test. Performed By: #### I NFLUAB #### [facility] [address] [address] [address] Venkat Sloan INFLUBNEG SEE BELOW Normal [facility] Comment on above: Result Comment: Nega tive for Flu B protein antigen. Infection due to Flu B cannot be ruled out. Flu B antigen in the sample may be below the detection limit of the test. Performed By: #### I NFLUAB #### [facility] [address] [place] [address] Dr. Venkat Sloan INFLUENZA A AG Negative Normal NEGATIVE SEE COMMENT [facility] Comment on above: Performed By: #### I NFLUAB #### [facility] [address] [place] [address] Dr. Venkat Sloan INFLUENZA B AG Negative Normal NEGATIVE SEE COMMENT [facility] Comment on above: Performed By: #### I NFLUAB #### [facility] [address] [place] [address] Dr. Venkat Sloan XR CHEST 2 Von [...] [address] Date: 2022-03-24 12:33 Normal [facility]on 02-25 SARS-CoV-2 (COVID-19) RNA SHIRIN+probe Ql (Unsp spec) Not detected Normal NOT DETECTED [facility] Comment [...] for this test is supported by the [place] of Health and Human Service's declaration that [...] used). Performed By: #### R F #### [facility] [address] [place] [address] Dr. Venkat Sloan INFLUENZA A AND B [facility] 03-15 [facility] SEE BELOW Normal [facility] Comment on above: Result Comment: Nega tive for Flu A protein angiten. Infection due to Flu A cannot be ruled out. Flu A angiten in the sample may be below the detection limit of the test. Performed By: #### I NFLUAB #### [facility] [address] [place] [address] Dr. Venkat S[facility] BELOW Normal [facility] Comment on above: Result Comment: Nega tive for Flu B protein antigen. Infection due to Flu B cannot be ruled out. Flu B antigen in the sample may be below the detection limit of the test. Performed By: #### I NFLUAB #### [facility] [address] [place] [address] Dr. Venkat Sloan INFLUENZA A AG Negative Normal NEGATIVE SEE COMMENT [facility] Comment on above: Performed By: #### I NFLUAB #### [facility] [address] [place] [address] Dr. Venkat Sloan INFLUENZA B AG Negative Normal NEGATIVE SEE COMMENT [facility] Comment on above: Performed By: #### I NFLUAB #### [facility] [address] [place], [place] [id number] Dr. Venkat Sloan INTERNAL CONTROLS Within Normal Limits Normal Wi thin Normal Limits [facility] Comment on above: Performed By: #### I NFLUAB #### [facility] [address] [place] [address] Dr. Venkat Sloan Covid-19 PCR ([facility])on 02-25 SARS-CoV-2 (COVID-19) RNA SHIRIN+probe Ql (Unsp spec) Not detected Normal NOT DETECTED [facility] Comment [...] for this test is supported by the [place] of Health and Human Service's declaration that [...] used). Performed By: #### I NFLUAB #### [facility] [address] [place] [address] Dr. Venkat Sloan INFLUENZA A AND B [facility]on 03-12 [facility] Normal [facility] Comment on above: Result Comment: Nega tive for Flu A protein angiten. Infection due to Flu A cannot be ruled out. Flu A angiten in the sample may be below the detection limit of the test. Performed By: #### I NFLUAB #### [facility] [address] [place] [address] Dr. Venkat Sloan INFLUBNEG SEE BELOW Normal [facility] Comment on above: Result Comment: Nega tive for Flu B protein antigen. Infection due to Flu B cannot be ruled out. Flu B antigen in the sample may be below the detection limit of the test. Performed By: #### I NFLUAB #### [facility] [address] [address] [address] Venkat Sloan INFLUENZA A AG Negative Normal NEGATIVE SEE COMMENT [facility] Comment on above: Performed By: #### I NFLUAB #### [facility] [address] [address] [address] Venkat Sloan INFLUENZA B AG Negative Normal NEGATIVE SEE COMMENT [facility] Comment on above: Performed By: #### I NFLUAB #### [facility] [address] [address] [address] Venkat Sloan INTERNAL CONTROLS Within Normal Limits Normal Wi thin Normal Limits [facility] Comment on above: Performed By: #### I NFLUAB #### [facility] [address] [place] [address] Dr. Venkat Sloan PROGESTERONEon 02-20-2022 Progesterone 0.3 ng/mL Normal [facility] Comment on above: Result Comment: Foll icular phase 0.1 - 0.9 Luteal phase 1.8 - 23.9 Ovulation phase 0.1 - 12.0 First trimester 11.0 - 44.3 Second trimester 25.4 - 83.3 Third trimester 58.7 - 214.0 Postmenopausal 0.0 - 0.1 Performed By: #### R F #### [facility] [address] [place] [address] Dr. Venkat Slona ACTH STIMULATIONon 2 Andros Baseline 49 ng/dL Normal 41-262 [facility] Comment on above: Performed By: #### R F #### [facility] [address] [place] [address] Dr. Venkat Sloan Andros Stimulated 82 ng/dL Normal Not Estab. [facility] Comment on above: Performed By: #### R F #### [facility] [address] [address] [address] Venkat Sloan [facility] SARS-CoV-2 (COVID-19) RNA SHIRIN+probe Ql (Unsp spec) Not detected Normal NOT DETECTED [facility] Comment on above: Result Comment: This test is not yet approved or cleared by the [place] FDA. When there are no FDA-approved or cleared tests available, and other criteria are met, FDA can make tests available under an emergency access mechanism called an Emergency Use Authorization (EUA). The EUA for this test is supported by the [place] of Health and Human Service's (HHS's) declaration [...] SARS-CoV-2. Performed By: #### I NFLUAB #### [facility] [address] [place] [address] Dr. Venkat Sloan INFLUENZA A AND B AGon 02[facility] BELOW Normal [facility] Comment on above: Result Comment: Nega tive for Flu A protein angiten. Infection due to Flu A cannot be ruled out. Flu A angiten in the sample may be below the detection limit of the test. Performed By: #### P REGQNT #### [facility] [address] [place] [address] Dr. Venkat Sloan INFLUBNEG SEE BELOW Normal [facility] Comment on above: Result Comment: Nega tive for Flu B protein antigen. Infection due to Flu B cannot be ruled out. Flu B antigen in the sample may be below the detection limit of the test. Performed By: #### P REGQNT #### [facility] [address] [place] [address] Dr. Venkat Sloan INFLUENZA A AG Negative Normal NEGATIVE SEE COMMENT [facility] Comment on above: Performed By: #### P REGQNT #### [facility] [address] [place] [address] Dr. Venkat Sloan INFLUENZA B AG Negative Normal NEGATIVE SEE COMMENT [facility] Comment on above: Performed By: #### P REGQNT #### [facility] [address] [address] [address] Venkat Sloan INTERNAL CONTROLS Within Normal Limits Normal Wi thin Normal Limits [facility] Comment on above: Performed By: #### P REGQNT #### [facility] [address] [place], [place] [address] Dr. Venkat Sloan DHEA SERUMon 01-19-2022 Dehydroepiandrosterone (DHEA) 82 ng/dL Normal -701 [facility] Comment on above: Result Comment: Age [...] 89 Performed By: #### T SH #### [facility] [address] [address] [address] Venkat Sloan DHEA-SULFATEon 01-14-2022 DHEA-Sulfate 34.0 ug/dL Critically low 84.8-378.0 [facility] Comment on above: Performed By: #### R F #### [facility] [address] [place] [address] Dr. Venkat Sloan FSHon 01-14-2022 FSH 2.2 mIU/mL Normal [facility] Comment on above: Result Comment: Adul t Female: Follicular phase 3.5 - 12.5 Ovulation phase 4.7 - 21.5 Luteal phase 1.7 - 7.7 Postmenopausal 25.8 - 134.8 Performed By: #### L BCFSH #### [facility] [address] [place] [address] Dr. Venkat Sloan LUTEINIZING HORMONE (LH)on LH 5.1 mIU/mL Normal [facility] Comment on above: Result Comment: Adul t Female: Follicular phase 2.4 - 12.6 Ovulation phase 14.0 - 95.6 Luteal phase 1.0 - 11.4 Postmenopausal 7.7 - 58.5 Performed By: #### I NFLUAB #### [facility] [address] [place] [address] Dr. Venkat Sloan PROLACTINon 01-14-2022 Prolactin 8.0 ng/mL Normal 4.8-23.3 [facility] Comment on above: Performed By: #### P ROLAC #### [facility] [address] [place] [address] Dr. Venkat Sloan CBC AUTO DIFFon 01-13-2022 BASO # 0.0 103/ul Normal 0.0-0.1 [facility] Comment on above: Performed By: #### T SH #### [facility] [address] [place] [address] Dr. Venkat Sloan Basophils/100 WBC (Bld) 0.4 % Normal 0.2-2.0 [facility] Comment on above: Performed By: #### T SH #### [facility] [address] [place] [address] Dr. Venkat Sloan EO # 0.1 103/ul Normal 0.0-0.7 [facility] Comment on above: Performed By: #### T SH #### [facility] [address] [place] [address] Dr. Venkat Sloan Eosinophils/100 WBC (Bld) 1.2 % Normal 0.9-7.0 [facility] Comment on above: Performed By: #### T SH #### [facility] [address] [place] [address] Dr. Venkat Sloan Erythrocyte distribution width (RBC) [Ratio] 12.7 % Normal 11.0-15.0 [facility] Comment on above: Performed By: #### T SH #### [facility] [address] [place] [address] Dr. Venkat Sloan Hematocrit (Bld) [Volume fraction] 41.1 % Normal 36.0-48.0 [facility] Comment on above: Performed By: #### T SH #### [facility] [address] [place] [address] Dr. Venkat Sloan Hemoglobin (Bld) [Mass/Vol] 13.1 g/dL Normal 12.0-16.0 [facility] Comment on above: Performed By: #### T SH #### [facility] [address] [place] [address] Dr. Venkat Sloan IG # 0.03 10e3/ul Normal 0.00-0.03 [facility] Comment on above: Performed By: #### T SH #### [facility] [address] [place] [address] Dr. Venkat Sloan IG % 0.3 % Normal 0.0-0.5 [facility] Comment on above: Performed By: #### T SH #### [facility] [address] [place] [address] Dr. Venkat Sloan LYMPH # 1.6 103/ul Normal 1.2-3.8 [facility] Comment on above: Performed By: #### T SH #### [facility] [address] [place] [address] Dr. Venkat Sloan Lymphocytes/100 WBC (Bld) 15.0 % Critically low 20.5-60.0 [facility] Comment on above: Performed By: #### T SH #### [facility] [address] [place] [address] Dr. Venkat Sloan MANUAL DIFF REQ NO Normal [facility] Comment on above: Performed By: #### T SH #### [facility] [address] [place] [address] Dr. Venkat Sloan MCH (RBC) [Entitic mass] 28.5 pg Normal 26.7-34.0 [facility] Comment on above: Performed By: #### T SH #### [facility] [address] [place] [address] Dr. Venkat Sloan MCHC (RBC) [Mass/Vol] 31.9 g/dL Normal 29.9-35.2 [facility] Comment on above: Performed By: #### T SH #### [facility] [address] [place] [address] Dr. Venkat Sloan MCV (RBC) [Entitic vol] 89.3 fL Normal 81.0-99.0 [facility] Comment on above: Performed By: #### T SH #### [facility] [address] [address] [address] Venkat Sloan MONO # 0.9 103/ul Critically high 0.3-0.8 [facility] Comment on above: Performed By: #### T SH #### [facility] [address] [place] [address] Dr. Venkat Sloan Monocytes/100 WBC (Bld) 8.8 % Normal 1.7-12.0 [facility] Comment on above: Performed By: #### T SH #### [facility] [address] [place] [address] Dr. Venkat Sloan NEUT # 7.9 103/ul Critically high 1.4-6.5 [facility] Comment on above: Performed By: #### T SH #### [facility] [address] [place] [address] Dr. Venkat Sloan Neutrophils/100 WBC (Bld) 74.3 % Normal 43.0-75.0 [facility] Comment on above: Performed By: #### T SH #### [facility] [address] [place] [address] Dr. Venkat Sloan Platelet mean volume (Bld) [Entitic vol] 9.2 fL Critically low 9.5-13.5 [facility] Comment on above: Performed By: #### T SH #### [facility] [address] [place] [address] Dr. Venkat Sloan PLT 300 103/ul Normal 150-450 [facility] Comment on above: Performed By: #### T SH #### [facility] [address] [place] [address] Dr. Venkat Sloan RBC 4.60 106/ul Normal 4.20-5.40 [facility] Comment on above: Performed By: #### T SH #### [facility] [address] [place] [address] Dr. Venkat Sloan WBC 10.7 103/ul Normal 4.0-11.0 [facility] Comment on above: Performed By: #### T SH #### [facility] [address] [place] [address] Dr. Venkat Sloan GLYCOHEMOGLOBIN A1Con 2021 ADA RECOMMENDATION SEE BELOW Normal [facility] Comment on above: Result Comment: ADA RECOMMENDED LIMIT 4.0 - 6.0 ADA THERAPEUTIC TARGET < 7.0 ACTION SUGGESTED > 7.0 Performed By: #### P REGQNT #### [facility] [address] [place] [address] Dr. Venkat Sloan Glucose [Mass/Vol] 100 mg/dL Normal [facility] Comment on above: Performed By: #### P REGQNT #### [facility] [address] [address] [address] Venkat Sloan HbA1c (Bld) [Mass fraction] 5.1 % Normal 4.5-6.2 [facility] Comment on above: Performed By: #### P REGQNT #### [facility] [address] [place] [address] Dr. Venkat Sloan TSHon 01-13-2022 TSH 1.098 uIU/mL Normal 0.358-3.740 [facility] Comment on above: Performed By: #### T SH #### [facility] [address] [place] [address] Dr. Venkat Sloan [facility]on 12-26 SARS-CoV-2 (COVID-19) RNA SHIRIN+probe Ql (Unsp spec) Not detected Normal NOT DETECTED [facility] Comment on above: Result Comment: This test is not yet approved or cleared by the [place] FDA. When there are no FDA-approved or cleared tests available, and other criteria are met, FDA can make tests available under an emergency access mechanism called an Emergency Use Authorization (EUA). The EUA for this test is supported by the [place] of Health and Human Service's (HHS's) declaration [...] SARS-CoV-2. Performed By: #### I NFLUAB #### [facility] [address] [place] [address] Dr. Venkat Sloan PREG QUANT HCGon 12-24-2021 HCG QUANT <1 Normal [facility] Comment on above: Performed By: #### P REGQNT #### [facility] [address] [place] [address] Dr. Venkat Sloan HCG RANGE SEE BELOW Normal [facility] Comment on above: Result Comment: 5-50 0.2-1 WEEK 50-500 1-2 WEEKS 100-5,000 2-3 WEEKS 500-10,000 3-4 WEEKS 1,000-50,000 4-5 WEEKS 10,000-100,000 5-6 WEEKS 15,000-200,000 6-8 WEEKS 10,000-100,000 2-3 MONTHS Performed By: #### P REGQNT #### [facility] [address] [place] [address] Dr. Venkat Sloan HCG-BETA SUBUNIT QUANTon hCG,Beta Subunit,Qnt,Serum <1 Normal [facility] Comment on above: Result Comment: Fema le (Non-) 0 - 5 (Postmenopausal) 0 - 8 . Female () Weeks of Gestation 3 6 - 71 4 10 - 750 5 217 - 7138 6 158 - 92489 7 [phone] 8 [phone] 9 [phone] 10 85094 -[phone] 12 88975 -[phone] 14 08071 - 92506 15 39351 - 91205 16 8649 - 25405 17 5254 - 87445 18 5611 - [phone] Aj ECLIA methodology Performed By: #### T SH #### [facility] [address] [place] [address] Dr. Venkat Sloan BRETT by IFAon 09-29-2021 Antinuclear Antibodies, IFA Negative Normal [facility] Comment on above: Result Comment: Nega tive <1:80 Borderline 1:80 Positive >1:80 ICAP nomenclature: AC-0 For more information about Hep-2 cell patterns use ANApatterns.org, the official website for the International Consensus on Antinuclear Antibody (BRETT) Patterns (ICAP). Performed By: #### A NAIFA #### [facility] [address] [place] [address] Dr. Venkat Sloan INSULINon 09-29-2021 Insulin 11.1 uIU/mL Normal 2.6-24.9 [facility] Comment on above: Performed By: #### T SH #### [facility] [address] [place] [address] Dr. Venkat Sloan ANTISTREPTOLYSIN O AB (ASO)o n 09-27-2021 Antistreptolysin O Ab <20.0 Normal 0.0-200.0 [facility] Comment on above: Performed By: #### P REGQNT #### [facility] [address] [place] [address] Dr. Venkat Sloan RHEUMATOID FACTORon 09-28-19 22 RA Latex Turbid. <10.0 Normal <14.0 [facility] Comment on above: Performed By: #### R F #### [facility] [address] [place] [address] Dr. Venkat Sloan CBC AUTO DIFFon 09-26-2021 BASO # 0.0 103/ul Normal 0.0-0.1 [facility] Comment on above: Performed By: #### T SH #### [facility] [address] [place] [address] Dr. Venkat Sloan Basophils/100 WBC (Bld) 0.3 % Normal 0.2-2.0 [facility] Comment on above: Performed By: #### T SH #### [facility] [address] [place] [address] Dr. Venkat Sloan EO # 0.1 103/ul Normal 0.0-0.7 [facility] Comment on above: Performed By: #### T SH #### [facility] [address] [place] [address] Dr. Venkat Sloan Eosinophils/100 WBC (Bld) 1.8 % Normal 0.9-7.0 [facility] Comment on above: Performed By: #### T SH #### [facility] [address] [place] [address] Dr. Venkat Sloan Erythrocyte distribution width (RBC) [Ratio] 12.9 % Normal 11.0-15.0 [facility] Comment on above: Performed By: #### T SH #### [facility] [address] [place] [address] Dr. Venkat Sloan Hematocrit (Bld) [Volume fraction] 39.8 % Normal 36.0-48.0 [facility] Comment on above: Performed By: #### T SH #### [facility] [address] [place] [address] Dr. Venkat Sloan Hemoglobin (Bld) [Mass/Vol] 12.7 g/dL Normal 12.0-16.0 [facility] Comment on above: Performed By: #### T SH #### [facility] [address] [place] [address] Dr. Venkat Sloan IG # 0.02 10e3/ul Normal 0.00-0.03 [facility] Comment on above: Performed By: #### T SH #### [facility] [address] [place] [address] Dr. Venkat Sloan IG % 0.3 % Normal 0.0-0.5 [facility] Comment on above: Performed By: #### T SH #### [facility] [address] [place] [address] Dr. Venkat Sloan LYMPH # 1.5 103/ul Normal 1.2-3.8 [facility] Comment on above: Performed By: #### T SH #### [facility] [address] [place] [address] Dr. Venkat Sloan Lymphocytes/100 WBC (Bld) 21.5 % Normal 20.5-60.0 [facility] Comment on above: Performed By: #### T SH #### [facility] [address] [place] [address] Dr. Venkat Sloan MANUAL DIFF REQ NO Normal [facility] Comment on above: Performed By: #### T SH #### [facility] [address] [place] [address] Dr. Venkat Sloan MCH (RBC) [Entitic mass] 28.5 pg Normal 26.7-34.0 [facility] Comment on above: Performed By: #### T SH #### [facility] [address] [place] [address] Dr. Venkat Sloan MCHC (RBC) [Mass/Vol] 31.9 g/dL Normal 29.9-35.2 [facility] Comment on above: Performed By: #### T SH #### [facility] [address] [place] [address] Dr. Venkat Slaon MCV (RBC) [Entitic vol] 89.2 fL Normal 81.0-99.0 [facility] Comment on above: Performed By: #### T SH #### [facility] [address] [place] [address] Dr. Venkat Sloan MONO # 0.5 103/ul Normal 0.3-0.8 [facility] Comment on above: Performed By: #### T SH #### [facility] [address] [place] [address] Dr. Venkat Sloan Monocytes/100 WBC (Bld) 7.6 % Normal 1.7-12.0 [facility] Comment on above: Performed By: #### T SH #### [facility] [address] [place] [address] Dr. Venkat Sloan NEUT # 4.9 103/ul Normal 1.4-6.5 [facility] Comment on above: Performed By: #### T SH #### [facility] [address] [place] [address] Dr. Venkat Sloan Neutrophils/100 WBC (Bld) 68.5 % Normal 43.0-75.0 [facility] Comment on above: Performed By: #### T SH #### [facility] [address] [place] [address] Dr. Venkat Sloan Platelet mean volume (Bld) [Entitic vol] 8.8 fL Critically low 9.5-13.5 [facility] Comment on above: Performed By: #### T SH #### [facility] [address] [address] [address] Venkat Sloan PLT 297 103/ul Normal 150-450 [facility] Comment on above: Performed By: #### T SH #### [facility] [address] [address] [address] Venkat Sloan RBC 4.46 106/ul Normal 4.20-5.40 [facility] Comment on above: Performed By: #### T SH #### [facility] [address] [address] [address] Venkat Sloan WBC 7.1 103/ul Normal 4.0-11.0 [facility] Comment on above: Performed By: #### T SH #### [facility] [address] [place] [address] Dr. Venkat Sloan CRPon 09-26-2021 CRP [Mass/Vol] mg/L Normal <=1.[address] [facility] Comment on above: Performed By: #### P REGQNT #### [facility] [address] [place] [address] Dr. Venkat Sloan FREE THYROXINE INDEX T7on FTI 2.71 Normal 1.30-4.50 [facility] Comment on above: Performed By: #### P REGQNT #### [facility] [address] [place] [address] Dr. Venkat Sloan T3U 33.0 % Normal 30.0-39.0 [facility] Comment on above: Performed By: #### P REGQNT #### [facility] [address] [place] [address] Dr. Venkat Sloan T4 [Mass/Vol] 8.20 ug/dL Normal 4.80-13.90 [facility] Comment on above: Performed By: #### P REGQNT #### [facility] [address] [place] [address] Dr. Venkat lSoan GLYCOHEMOGLOBIN A1Con 2021 ADA RECOMMENDATION SEE BELOW Normal [facility] Comment on above: Result Comment: ADA RECOMMENDED LIMIT 4.0 - 6.0 ADA THERAPEUTIC TARGET < 7.0 ACTION SUGGESTED > 7.0 Performed By: #### I NFLUAB #### [facility] [address] [address] [address] Venkat Sloan Glucose [Mass/Vol] 105 mg/dL Normal [facility] Comment on above: Performed By: #### I NFLUAB #### [facility] [address] [address] [address] Venkat Sloan HbA1c (Bld) [Mass fraction] 5.3 % Normal 4.5-6.2 [facility] Comment on above: Performed By: #### I NFLUAB #### [facility] [address] [place] [address] Dr. Venkat Sloan IRONon 09-26-2021 Iron [Mass/Vol] 49.0 ug/dL Critically low 50.0-170.0 [facility] Comment on above: Performed By: #### P REGQNT #### [facility] [address] [place] [address] Dr. Venkat Sloan LIPID PROFILEon 09-26-2021 CHOL-HDL RATIO NORM SEE BELOW Normal [facility] Comment on above: Result Comment: 3.3 - 4.4 LOW RISK 4.4 - 7.1 AVERAGE RISK 7.1 - 11.0 MODERATE RISK >11.0 HIGH RISK Performed By: #### P REGQNT #### [facility] [address] [place] [address] Dr. Venkat Sloan Cholesterol [Mass/Vol] 197 mg/dL Normal <=200 [facility] Comment on above: Performed By: #### P REGQNT #### [facility] [address] [place] [address] Dr. Venkat Sloan Cholesterol in HDL [Mass/Vol] 64 mg/dL Critically high 40-60 [facility] Comment on above: Performed By: #### P REGQNT #### [facility] [address] [place] [address] Dr. Venkat lSoan Cholesterol in LDL [Mass/Vol] 123.4 mg/dL Normal [facility] Comment on above: Performed By: #### P REGQNT #### [facility] [address] [address] [address] Venkat Sloan Cholesterol.total/Choles terol in HDL [Mass ratio] 3.1 {ratio} Normal [facility] Comment on above: Performed By: #### P REGQNT #### [facility] [address] [address] [address] Venkat Sloan HDL NORMAL > or = 60 mg/dl - LO W CARDIOVASCULAR RISK <40 mg/dl - HIGH CARDIOVASCULAR RISK Normal [facility] Comment on above: Performed By: #### P REGQNT #### [facility] [address] [address] [address] Venkat Sloan LDL CALC NORMAL SEE BELOW Normal [facility] Comment on above: Result Comment: <100 mg/dl OPTIMAL 100 - 129 mg/dl NEAR OR ABOVE OPTIMAL 130 - 159 mg/dl BORDERLINE HIGH 160 - 189 mg/dl HIGH >190 mg/dl VERY HIGH Performed By: #### P REGQNT #### [facility] [address] [address] [address] Venkat Sloan Triglyceride [Mass/Vol] 48 mg/dL Normal <=150 [facility] Comment on above: Performed By: #### P REGQNT #### [facility] [address] [address] [address] Venkat Sloan VLDL CALC 9.6 mg/dL Normal [facility] [facility] Comment on above: Performed By: #### P REGQNT #### [facility] [address] [address] [address] Venkat Sloan PROF 14(COMP METB)on 022 Albumin [Mass/Vol] 4.0 g/dL Normal 3.4-5.0 [facility] Comment on above: Performed By: #### I NFLUAB #### [facility] [address] [address] [address] Venkat Sloan Albumin/Globulin [Mass ratio] 1.3 {ratio} Normal [facility] Comment on above: Performed By: #### I NFLUAB #### [facility] [address] [address] [address] Venkat Sloan ALP [Catalytic activity/Vol] 58 U/L Normal 46-116 [facility] Comment on above: Performed By: #### I NFLUAB #### [facility] [address] [address] [address] Venkat Sloan ALT [Catalytic activity/Vol] 20 U/L Normal 14-59 [facility] Comment on above: Performed By: #### I NFLUAB #### [facility] [address] [address] [address] Venkat Sloan Anion gap [Moles/Vol] 10.4 mmol/L Normal [facility] Comment on above: Performed By: #### I NFLUAB #### [facility] [address] [address] [address] Venkat Sloan AST [Catalytic activity/Vol] 11 U/L Critically low 15-37 [facility] Comment on above: Performed By: #### I NFLUAB #### [facility] [address] [address] [address] Venkat Sloan Bilirubin [Mass/Vol] 0.8 mg/dL Normal 0.2-1.0 [facility] Comment on above: Performed By: #### I NFLUAB #### [facility] [address] [address] [address] Venkat Sloan Calcium [Mass/Vol] 9.0 mg/dL Normal 8.5-10.1 [facility] Comment on above: Performed By: #### I NFLUAB #### [facility] [address] [address] [address] Venkat Sloan Chloride [Moles/Vol] 106 mmol/L Normal 98-107 [facility] Comment on above: Performed By: #### I NFLUAB #### [facility] [address] [address] [address] Venkat Sloan CO2 [Moles/Vol] 27.0 mmol/L Normal 21.0-32.0 [facility] Comment on above: Performed By: #### I NFLUAB #### [facility] [address] [address] [address] Venkat Sloan Creatinine [Mass/Vol] 0.70 mg/dL Normal 0.55-1.02 [facility] Comment on above: Performed By: #### I NFLUAB #### [facility] [address] [address] [address] Venkat Sloan EGFR-AF MALAYSIAN >60 Normal >=60 [facility] Comment on above: Performed By: #### I NFLUAB #### [facility] [address] [place] [address] Dr. Venkat Sloan EGFR-NON AF MALAYSIAN >60 Normal >=60 [facility] Comment on above: Performed By: #### I NFLUAB #### [facility] [address] [place] [address] Dr. Venkat Sloan Globulin (S) [Mass/Vol] 3.2 g/dL Normal [facility] Comment on above: Performed By: #### I NFLUAB #### [facility] [address] [place] [address] Dr. Venkat Sloan Glucose [Mass/Vol] 92 mg/dL Normal 74-106 [facility] Comment on above: Performed By: #### I NFLUAB #### [facility] [address] [place] [address] Dr. Venkat Sloan Potassium [Moles/Vol] 4.4 mmol/L Normal 3.5-5.1 [facility] Comment on above: Performed By: #### I NFLUAB #### [facility] [address] [place] [address] Dr. Venkat Sloan Protein [Mass/Vol] 7.2 g/dL Normal 6.4-8.2 [facility] Comment on above: Performed By: #### I NFLUAB #### [facility] [address] [place] [address] Dr. Venkat Sloan Sodium [Moles/Vol] 139 mmol/L Normal 136-145 [facility] Comment on above: Performed By: #### I NFLUAB #### [facility] [address] [place], [place] [id number] Dr. Venkat Sloan Urea nitrogen [Mass/Vol] 13.0 mg/dL Normal 7.0-18.0 [facility] Comment on above: Performed By: #### I NFLUAB #### [facility] [address] [place] [address] Dr. Venkat Sloan Urea nitrogen/Creatinine [Mass ratio] 18.6 mg/mg Normal [facility] Comment on above: Performed By: #### I NFLUAB #### [facility] [address] [place] [address] Dr. Venkat Sloan TSHon 09-26-2021 TSH 1.318 uIU/mL Normal 0.358-3.740 [facility] Comment on above: Performed By: #### P REGQNT #### [facility] [address] [place] [address] Dr. Venkat Sloan URIC ACID SERUMon 09-26-2021 Urate [Mass/Vol] 3.9 mg/dL Normal 2.6-6.0 [facility] Comment on above: Performed By: #### P REGQNT #### [facility] [address] [place] [address] Dr. Venkat Sloan XR CSPINE MIN 4 [...] DUDLEY HERNÁNDEZ Date: 2021-09-24 21:16 Normal [facility] PREG QUANT HCGon 08-17-2021 HCG QUANT <1 Normal [facility] Comment on above: Performed By: #### I NFLUAB #### [facility] [address] [place] [address] Dr. Venkat Sloan HCG RANGE SEE BELOW Normal [facility] Comment on above: Result Comment: 5-50 0-1 WEEK 40-300 1-2 WEEKS 100-1,000 2-3 WEEKS 500-6,000 3-4 WEEKS 5,000-200,000 1-2 MONTHS 10,000-100,000 2-3 MONTHS 3,000-50,000 2ND TRIMESTER 1,000-50,000 3RD TRIMESTER Performed By: #### I NFLUAB #### [facility] [address] [address] [address] Venkat Sloan US PELVIS AND TRANSVAGon [...] DUDLEY HERNÁNDEZ Date: 2021-08-17 07:01 Normal [facility] COVID Quick Testingon 2020 Result Negative [facility] Other Vital Signs Date Time Vital Sign Value Performing Clinician Facility 08-28-2024 14:22-0400 Body mass index (BMI) [Ratio] 27.55 kg/m2 [facility] Phone: [facility] 08-28-2024 14:22-0400 Body weight 66.13 kg [employer] Phone: [facility] 08-28-2024 14:22-0400 Diastolic blood pressure 70 mm[Hg] [employer] Phone: [facility] 08-28-2024 14:22-0400 Systolic blood pressure 110 mm[Hg] Ricardo Jennifer DO Work Phone: [facility] 08-21-2024 10:41-0400 Body mass index (BMI) [Ratio] 27.93 kg/m2 Josi Genie PA Work Phone: [facility] 08-21-2024 10:41-0400 Body weight 67.04 kg Josi Genie PA Work Phone: [facility] 08-21-2024 10:41-0400 Diastolic blood pressure 78 mm[Hg] Josi Genie PA Work Phone: [facility] 08-21-2024 10:41-0400 Systolic blood pressure 120 mm[Hg] Josi Bushnell PA Work Phone: [facility] 07-19-2024 12:02-0400 Body mass index (BMI) [Ratio] 27.78 kg/m2 Ricardo Jennifer DO Work Phone: [facility] 07-19-2024 12:02-0400 Body weight 66.68 kg Ricardo Jennifer DO Work Phone: [facility] 07-19-2024 12:02-0400 Diastolic blood pressure 70 mm[Hg] Ricardo Jennifer DO Work Phone: [facility] 07-19-2024 12:02-0400 Systolic blood pressure 116 mm[Hg] Ricardo Jennifer DO Work Phone: [facility] 05-22-2023 09:27-0500 Body height 154.94 cm [facility] 05-22-2023 09:27-0500 Body mass index (BMI) [Ratio] 30.8 kg/m2 [facility] 05-22-2023 09:27-0500 Body temperature 98.1 [degF] [facility] 05-22-2023 09:27-0500 Body weight 74.04 kg [facility] 05-22-2023 09:27-0500 Heart rate 78 /min [facility] 05-22-2023 09:27-0500 Respiratory rate 16 /min [facility] 05-22-2023 09:27-0500 SaO2% (BldA) [Mass fraction] 98 % [facility] 05-10-2023 15:14-0500 Body mass index (BMI) [Ratio] 30.04 kg/m2 [employer] Work Phone: [facility] 05-10-2023 15:14-0500 Body weight 72.12 kg Ricardo Jennifer [employer] Work Phone: [facility] 05-10-2023 15:14-0500 Diastolic blood pressure 70 mm[Hg] Ricardo Jennifer [employer] Work Phone: [facility] 05-10-2023 15:14-0500 Systolic blood pressure 110 mm[Hg] [employer] Work Phone: [facility] 01-27-2021 18:45-0400 Body height 154.94 cm Mohini Buttault Other [facility] Other 01-27-2021 18:45-0400 Body mass index (BMI) [Ratio] 28.34 kg/m2 Mohini Buttault Other [facility] 01-27-2021 18:45-0400 Body temperature 96.4 [degF] Mohini Juan Other [facility] Other 01-27-2021 18:45-0400 Body weight 68.04 kg Mohini Juan Other [facility] Other 01-27-2021 18:45-0400 Respiratory rate 18 /min Mohini Juan Other [facility] 01-27-2021 18:45-0400 SaO2% (BldA) [Mass fraction] 99 % Mohini Martinez Other [facility] Other 12-22-2020 11:45-0400 Body height 154.94 cm Dudley Freeman Other [facility] Other 12-22-2020 11:45-0400 Body mass index (BMI) [Ratio] 28.34 kg/m2 Dudley Freeman Other [facility] Other 12-22-2020 11:45-0400 Body weight 68.04 kg Dudley Freeman Other [facility] Other Encounters Encounter Date Encounter Type Care Provider Facility Start: 08-28-2024 End: 08-28-2024 ambulatory RICARDO JENNIFER Not Available Start: 08-28-2024 End: 08-28-2024 Office outpatient visit 15 minutes Ricardo Jennifer DO Work Phone: [facility] Comment on above: Pre-op examination; Cyst of right ovary; Complex ovarian cyst; Pelvic pain Start: 08-28-2024 End: 08-28-2024 Preprocedural examination done Ricardo Jennifer DO Work Phone: [facility] Start: 08-27-2024 End: 08-27-2024 Clinisync Result Encounter Josi VILLARREAL Work Phone: [facility] External Department Unsolicited Start: 08-27-2024 End: 08-27-2024 Clinisync Result Encounter Josi VILLARREAL Work Phone: [facility] External Department Unsolicited Start: 08-21-2024 End: 08-21-2024 Bamboo flowsheet Josi VILLARREAL Work Phone: [facility] Start: 08-21-2024 End: 08-21-2024 Bamboo flowsheet Josi VILLARREAL Work Phone: [facility] Start: 08-21-2024 End: 08-21-2024 Office outpatient visit 15 minutes Josi Rose PA Work Phone: [facility] Comment on above: Cyst of right ovary; Complex ovarian cyst Start: 08-21-2024 End: 08-21-2024 ambulatory JOSI ROSE Not Available Start: 08-15-2024 End: 08-15-2024 ambulatory Hannah David Facility:[facility] Start: 08-15-2024 End: 08-15-2024 Departed Referred Hannah David DO Work Phone: [facility] Start: 07-19-2024 End: 07-19-2024 Office outpatient [...] Not Available Start: 05-22-2023 End: 05-22-2023 ambulatory [facility] Work Phone: Start: 05-22-2023 End: 05-22-2023 Patient encounter procedure [facility] Work Phone: Start: 05-10-2023 End: 05-10-2023 flow sheet Ricardo Rodriguez DO Work Phone: [facility] Comment on above: Second trimester pre gnancy; Diabetes mellitus screening Start: 07-09-2022 Encounter for other preprocedural examination DR RICARDO RODRIGUEZ . [facility] Start: 07-08-2022 End: 07-08-2022 ambulatory [...] abnormal findings DR IRON GARCIA . [facility] Start: 09-26-2021 End: 09-27-2021 [...] 01-27-2021 End: 01-27-2021 ambulatory Mohini Martinez Other [facility] Other Start: 01-27-2021 Office outpatient vi sit 15 minutes Mohini Martinez [facility] Start: 12-22-2020 Office outpatient ne w 45 minutes Dudley Freeman [facility] Procedures Date Procedure Procedure Detail Performing Clinician Start: 08-27-2024 ALL LDH Josi VILLARREAL Work Phone: Start: 06-28-2024 ALL CBC WITH [...] Screening for malign ant neoplasm of cervix [facility] Start: 11-26-2024 Influenza vaccination Influenz a Vaccine (Season Ended) [facility] Start: 09-24-2024 End: 09-24-2024 Patient encounter procedure 09/24/2024 10:50 AM EDT Office [address] [facility] [address] [facility] [address] [place] [address] Josi Rose PA [address] [place] [address] [facility] Start: 09-24-2024 End: 09-24-2024 Patient encounter procedure 09/24/2024 8:[address] [facility] [address] [place] [address] Ricardo Rodriguez, DO [address] [place] [address] [facility] Start: 08-28-2024 End: 08-28-2024 Patient encounter procedure 08/28/2024 2:[address] [facility] [address] [place] [address] Ricardo Rodriguez, DO [address] [place] [address] [facility] Start: 08-21-2024 End: 08-21-2025 AFP tumor marker AFP tumor marker Lab Routine Complex ovarian cyst Expected: 08/21/2024 (Approximate), Expires: 08/21/2025 [facility] Comment on above: Expected: 08/21/2024 (Approximate), Expires: 08/21/2025 Start: 08-21-2024 End: 08-21-2025 CA 125 CA 125 Lab Routine Complex ovarian cyst Expected: 08/21/2024 (Approximate), Expires: 08/21/2025 [facility] Comment on above: Expected: 08/21/2024 (Approximate), Expires: 08/21/2025 Start: 08-21-2024 End: 08-21-2025 Carcinoembryonic Ag [Mass/volume] in Serum or Plasma CEA Lab Routine Complex ovarian cyst Expected: 08/21/2024 (Approximate), Expires: 08/21/2025 [facility] Comment on above: Expected: 08/21/2024 (Approximate), Expires: 08/21/2025 Start: 08-21-2024 End: 08-21-2025 HCG, tumor marker HCG, tumor marker Lab Routine Complex ovarian cyst Expected: 08/21/2024 (Approximate), Expires: 08/21/2025 [facility] Comment on above: Expected: 08/21/2024 (Approximate), Expires: 08/21/2025 Start: 08-21-2024 End: 08-21-2025 Lactate dehydrogenase, isoenzymes Lactate dehydrogenase, isoenzymes Lab Routine Complex ovarian cyst Expected: 08/21/2024 (Approximate), Expires: 08/21/2025 [facility] Work Phone: Comment on above: Expected: 08/21/2024 (Approximate), Expires: 08/21/2025 Start: 08-15-2024 Urine culture [facility] Start: 08-15-2024 Bacteria identified in Urine by Culture Urine Culture [facility] Start: 05-24-2024 End: 05-24-2024 Patient encounter procedure 05/24/2024 8:30 AM EST Office Visit [facility] [address] [address] Ricardo Rodriguez, [address] [place] [address] [facility] Start: 03-01-2024 End: 03-01-2025 CBC W Auto Differential panel - Blood CBC and differential Lab Routine Abnormal vaginal bleeding Expected: 03/01/2024 (Approximate), Expires: 03/01/2025 [facility] Comment on above: Expected: 03/01/2024 (Approximate), Expires: 03/01/2025 Start: 03-01-2024 End: 03-01-2025 DHEA DHEA Lab Routine Abnormal vaginal bleeding Expected: 03/01/2024, Expires: 03/01/2025 [facility] Comment on above: Expected: 03/01/2024 , Expires: 03/01/2025 Start: 03-01-2024 End: 03-01-2025 DHEA-sulfate DHEA-sulfate Lab Routine Abnormal vaginal bleeding Expected: 03/01/2024 (Approximate), Expires: 03/01/2025 [facility] Comment on above: Expected: 03/01/2024 (Approximate), Expires: 03/01/2025 Start: 03-01-2024 End: 03-01-2025 Follicle stimulating hormone Follicle stimulating hormone Lab Routine Abnormal vaginal bleeding Expected: 03/01/2024 (Approximate), Expires: 03/01/2025 [facility] Comment on above: Expected: 03/01/2024 (Approximate), Expires: 03/01/2025 Start: 03-01-2024 End: 03-01-2025 hCG, quantitative, hCG, quantitative, Lab Routine Abnormal vaginal bleeding Expected: 03/01/2024 (Approximate), Expires: 03/01/2025 [facility] Work Phone: Comment on above: Expected: 03/01/2024 (Approximate), Expires: 03/01/2025 Start: 03-01-2024 End: 03-01-2025 Hemoglobin A1c/Hemoglobin.total in Blood Hemoglobin A1c Lab Routine Abnormal vaginal bleeding Expected: 03/01/2024 (Approximate), Expires: 03/01/2025 [facility] Comment on above: Expected: 03/01/2024 (Approximate), Expires: 03/01/2025 Start: 03-01-2024 End: 03-01-2025 Luteinizing hormone Luteinizing hormone Lab Routine Abnormal vaginal bleeding Expected: 03/01/2024 (Approximate), Expires: 03/01/2025 [facility] Comment on above: Expected: 03/01/2024 (Approximate), Expires: 03/01/2025 Start: 03-01-2024 End: 03-01-2025 Thyrotropin [Units/volume] in Serum or Plasma TSH Lab Routine Abnormal vaginal bleeding Expected: 03/01/2024 (Approximate), Expires: 03/01/2025 [facility] Comment on above: Expected: 03/01/2024 (Approximate), Expires: 03/01/2025 Start: 03-01-2024 End: 03-01-2025 Thyroxine (T4) free [Mass/volume] in Serum or Plasma T4, free Lab Routine Abnormal vaginal bleeding Expected: 03/01/2024 (Approximate), Expires: 03/01/2025 [facility] Comment on above: Expected: 03/01/2024 (Approximate), Expires: 03/01/2025 Start: 03-01-2024 End: 03-01-2025 US for US PELVIS-TRANSVAG IF INDICATED Imaging Routine Abnormal vaginal bleeding Expected: 03/01/2024 (Approximate), Expires: 03/01/2025 [facility] Comment on above: Expected: 03/01/2024 (Approximate), Expires: 03/01/2025 Start: 03-01-2024 End: 03-01-2024 Patient encounter procedure 03/01/2024 11:10 AM EST Office Visit [facility] [address] [place] [address] Ricardo Rodriguez DO [address] [place] [address] Arrived [facility] Comment on above: Arrived Start: 12-05-2023 Screening for malign ant neoplasm of cervix HPV/Cotest [facility] Start: 11-27-2023 Influenza vaccination Influenza Vacc ine (#1) [facility] Start: 05-26-2023 End: 05-26-2023 Patient encounter procedure 05/26/2023 9:[address] [facility] [address] [id number] Ricardo Rodriguez, DO [address] [place] [address] [facility] Start: 05-10-2023 End: 05-10-2024 CBC panel - Blood by Automated count CBC Lab Routine Diabetes mellitus screening Expected: 05/10/2023 (Approximate), Expires: 05/10/2024 [facility] Work Phone: Comment on above: Expected: 05/10/2023 (Approximate), Expires: 05/10/2024 Start: 05-10-2023 End: 05-10-2024 Measurement of glucose 1 hour after glucose challenge for glucose tolerance test Glucose tolerance, 1 hour Lab Routine Diabetes mellitus screening Expected: 05/10/2023 (Approximate), Expires: 05/10/2024 [facility] Comment on above: Expected: 05/10/2023 (Approximate), Expires: 05/10/2024 Start: 11-26-2022 Influenza vaccination Influenza Vacc ine (#1) [facility] Immunizations Immunization Date Immunization Notes [facility] influenza virus vacc ine, unspecified formulation Ricardo Rodriguez DO Work Phone: [facility] Payers Date Payer Category Payer Self-pay [id number] 2024 Unknown [id number] 2022 Blue [employer] Blue Shield [id number] 2022 Unknown BCBS BCBS xxxxxx [id number] 2022-[facility] [phone] [address] [place] [address] [id number]. [id number] 1993 Unknown [id number] 2.16.840.1.935486.3.579.2.59 3 1993 Unknown [id number] 2.16.840.1.308328.3.579.2.59 3 1993 Unknown [id number] 2.16.840.1.385547.3.579.2.59 3 1993 Unknown [id number] 2.16.840.1.163416.3.579.2.59 3 1993 Unknown [id number] 2.16.840.1.773918.3.579.2.59 3 1993 Unknown [id number] 2.16.840.1.181680.3.579.2.59 3 1993 Unknown [id number] 2.16.840.1.191561.3.579.2.59 3 1993 Unknown [id number] 2.16.840.1.887621.3.579.2.59 3 1993 Unknown [id number] 2.16.840.1.518481.3.579.2.59 3 1993 Unknown [id number] 2.16.840.1.014316.3.579.2.59 3 1993 Unknown [id number] 2.16.840.1.710602.3.579.2.59 3 1993 Unknown [id number] 2.16.840.1.813556.3.579.2.59 3 1993 Unknown [id number] 2.16.840.1.403978.3.579.2.59 3 1993 Unknown [id number] 2.16.840.1.538459.3.579.2.59 3 1993 Unknown [id number] 2.16.840.1.637125.3.579.2.59 3 1993 Unknown [id number] 2.16.840.1.621968.3.579.2.59 3 1993 Unknown [id number] 2.16.840.1.736482.3.579.2.59 3 1993 Unknown [id number] 2.16.840.1.311796.3.579.2.59 3 1993 Unknown [id number] 2.16.840.1.182316.3.579.2.59 3 1993 Unknown [id number] 2.16.840.1.386259.3.579.2.59 3 1993 Unknown [id number] 2.16.840.1.788764.3.579.2.59 3 1993 Unknown [id number] 2.16.840.1.590923.3.579.2.59 3 1993 Unknown [id number] 2.16.840.1.871936.3.579.2.59 3 1993 Unknown [id number] 2.16.840.1.559842.3.579.2.59 3 1993 Unknown [id number] 2.16.840.1.329359.3.579.2.59 3 1993 Unknown [id number] 2.16.840.1.323762.3.579.2.12 59 1993 Unknown [id number] 2.16.840.1.664598.3.579.2.12 59 1993 Unknown [id number] 2.16.840.1.137515.3.579.2.12 59 1993 Unknown [id number] 2.16.840.1.486055.3.579.2.12 59 1993 Unknown [id number] 2.16.840.1.929545.3.579.2.12 59 1959 Unknown [id number] 1959 Unknown [id number] Unknown [id number] 2.16.840.1.153902.19 Unknown [facility] [id number] Unknown [employer] BC/BS [id number] Unknown [id number] 2.16.840.1.802255.3.579.2.53 1 Social History Date Type Detail Facility Unknown if ever smoked [facility] Start: 01-28-2023 End: 09-21-2023 Sex Assigned At [facility] Start: 01-28-2023 End: 05-22-2023 Tobacco smoking status NHIS Never smoked tobacco [facility] Start: 05-10-2023 End: 08-28-2024 Alcohol intake Current drinker of alcohol (finding) [...] 11-22-2022 Sexual orientation Heterosexual (finding) [facility] Start: 08-17-2024 Sex Female (finding) [facility] Clinical Notes 12-22-2020 to 08-28-2024 Ricardo Rodriguez DO - 08/28/2024 2:00 PM CHERELLE Pascual - 08/21/2024 10:20 AM Mallorie Guzman LPN - 07/19/2024 11:40 AM Mallorie Guzman LPN - 03/01/2024 11:10 AM EST Note Date & Type Note Facility 08-28-2024 History of Present illness Narrative Reason for Appointment: Patient ID: Kasandra Macias is a 28 y.o. female who presents for Pre-op Visit Patient presents today for Pre Op appointment. Patient is scheduled to undergo Diagnostic Laparoscopy, possible KAY, possible FOE, possible BSO on 09/13/[address] Rodriguez at [facility]. MEDICATIONS No current outpatient medications ALLERGIES No [...] Respiratory: Negative. Cardiovascular: Negative. Gastrointestinal: Negative. Genitourinary: Positive for pelvic pain. Musculoskeletal: Negative. Skin: Negative. Neurological: Negative. All [...] nursing note reviewed. Exam conducted with a pie cutter present. Vitals: Estimated body mass index is 27.93 kg/m as calculated from the following: Height as of 11/23/22: 5' 1 . Weight as of 08/21/24: 147 lb 12.8 oz. BP: No LMP recorded. ASSESSMENT & PLAN ICD-10-CM 1. Pre-op examination Z01.818 2. Cyst of right ovary N83.201 3. Complex ovarian cyst N83.299 4. Pelvic pain R10.2 Pre Op: Patient is doing well but has complaints of pelvic pain and complex ovarian cyst. I have discussed conservative management vs. surgical management with the patient in detail and patient desires surgical management at this time. Patient will undergo Diagnostic Laparoscopy, possible KAY, possible FOE, possible BSO on 09/13/24. Surgical consents were signed, mmc was reviewed, and patient is to proceed to [facility] OR. Follow Up: Patient is to follow up between 1-2 weeks post operative to assess proper healing and recovery from procedure. Documented by Melissa Thornton LPN on behalf of: Ricardo Rodriguez DO documented in this encounter [facility] 08-21-2024 History of Present illness Narrative Reason [...] of: CHERELLE Abdi documented in this encounter [facility] 07-19-2024 History of Present illness Narrative Reason [...] nursing note reviewed. Exam conducted with a pie cutter present. Vitals: Estimated body mass index is [...] patient. Patient given 3 samples of Tyblume Lot:[id number] Exp: 02/19 Documented by Abigail Guzman LPN on behalf of: Ricardo Rodriguez DO documented in this encounter [facility] 03-01-2024 History of Present illness Narrative Reason for Appointment: Patient ID: Kasandra Maicas is a 28 y.o. female who presents [...] nursing note reviewed. Exam conducted with a pie cutter present. Vitals: Estimated body mass index is [...] Ricardo Rodriguez DO documented in this encounter [facility] 05-10-2023 History of Present illness Narrative Reason [...] nursing note reviewed. Exam conducted with a pie cutter present. Vitals: Estimated body mass index is [...] Ricardo Rodriguez DO documented in this encounter [facility] 07-08-2022 Note OPERATIVE NOTE OPERATION DATE: 07/08/2022 PROCEDURE: Diagnostic laparoscopy with fulguration of ovarian endometrial implant. PREOPERATIVE DIAGNOSIS: Pelvic pain. POSTOPERATIVE DIAGNOSIS: Pelvic pain. ANESTHESIA: General. SURGEON: Ricardo Rodriguez D.O. [employer] SUPERVISOR: DEIVN Miles URINE OUTPUT: Yellow and clear. BLOOD [...] to Recovery Room in stable condition. [facility] 12-22-2020 Evaluation note Encounter Date Diagnosis Assessment Notes Nov, Irritable bowel syndrome with both constipation and diarrhea (ICD-10 - K58.2) LABS INDICATED ABOVE START TRIAL OF DICYCLOMINE 20 BID RTO 4 WEEKS [facility] Other Evaluation noteNort [employer] Other Evaluation note* Diagnosis Second trimester state, incidental Diabetes mellitus screening Screening for diabetes mellitus documented in this encounter [facility] Healthcare[facility] noteNo assessment information availableHolzer [facility] Work Phone: Evaluation note* Diagnosis Abnormal vaginal bleeding Other specified noninflammatory disorder of vagina PCOS (polycystic ovarian syndrome) Polycystic ovaries documented in this encounter [facility]* Diagnosis Irregular periods/menstrual cycles Pelvic pain in female Unspecified symptom associated with female genital organs documented in this encounter [facility]* Diagnosis Cyst of right ovary Other and unspecified ovarian cyst Complex ovarian cyst documented in this encounter [facility]* Diagnosis Pre-op examination Cyst of right ovary Other and unspecified ovarian cyst Complex ovarian cyst Pelvic pain documented in this encounter [facility] Narrative - Reported* Type Description Date Medical History anxiety/depression Medical History IBS Surgical History TONSILLECTOMY [facility] [employer] Other History general Narrative - [facility] Other Summary Purpose Family History Relationship Condition [...] Unknown mother Malignant neoplasm Unknown Advance Directives Advance Directive [...] Comments irregular cycles Reason Comments Ovarian Cyst Reason Comments Pre-op Visit INFORMATION SOURCE (unrecogn ized section and content) DATE CREATED AUTHOR 07/13/2022 [facility] DATE CREATED AUTHOR AUTHOR'S ORGANIZ ATION 08/23/2024 [facility] DATE CREATED AUTHOR AUTHOR'S ORGANIZ ATION 08/29/2024 [facility] EPIC Care Teams (unrecognized sec tion and content) Wellness Nurse Rn Relationship Specialty Start Date End Date Iron Garcia MD [address] [place] [id number] PCP - General Family Medicine 11/23/22 Team Status: Active Member Role Status Dates Iron Garcia MD Primary Care Provider Active Team Status: Inactive Member Role Status Dates Iron Garcia MD Primary Care Provider Active Start: May 22, 2023 End: May 22, 2023 Teresa Wilkins APRN Attending Provider Active Start: May 22, 2023 End: May 22, 2023 Wellness Nurse Rn Relationship Specialty Start Date End Date Iron Garcia MD [address] [place] [facility] [place] [address] PCP - General Family Medicine 11/23/22 Wellness Nurse Rn Relationship Specialty Start Date End Date Iron Garcia MD [address] [place] [facility] [place] [address] PCP - General Family Medicine 11/23/22 Wellness Nurse Rn Relationship Specialty Start Date End Date Iron Garcia MD [address] [place] [facility] [place] [address] PCP - General Family Medicine 11/23/22 Wellness Nurse Rn Relationship Specialty Start Date End Date Iron Garcia MD [address] [place] [facility] [place] [address] PCP - General Family Medicine 11/23/22 Wellness Nurse Rn Relationship Specialty Start Date End Date Iron Garcia MD [address] [place] [facility] [place] [address] PCP - General Family Medicine 08/21/24 Wellness Nurse Rn Relationship Specialty Start Date End Date Iron Garcia MD [address] [place] [facility] [place] [address] PCP - General Family Medicine 08/21/24 Team Status: Inactive Member Role Status Dates Hannah David DO Attending Provider Active Start: August 15, 2024 End: August 15, 2024 Wellness Nurse Rn Relationship Specialty Start Date End Date Iron Garcia MD [address] [place] [facility] [place] [address] PCP - General Family Medicine 08/21/24 Goals (unrecognized section and content) Goals may [...] BE BASED ON THE PRIMARY CLINICAL RECORDS. [facility]. provides no warranty or guarantee of the accuracy or completeness of information in this document.
[2024-09-13 06:24] LABS: Basophils Percent Auto 0.3 % (0.2-2.0); Eosinophils Absolute Auto 0.2 10^3/uL (0.0-0.7); Eosinophils Percent Auto 1.7 % (0.9-7.0); Hematocrit 37.4 % (36.0-48.0); Hemoglobin 12.4 g/dL (12.0-16.0); Immature Granulocytes Abs Auto 0.03 10^3/uL (0.00-0.03); Immature Granulocytes Pct Auto 0.3 % (0.0-0.5); Lymphocytes Absolute Auto 2.5 10^3/uL (1.2-3.8); Lymphocytes Percent Auto 22.6 % (20.5-60.0); Mean Corpuscular HGB Conc 33.2 g/dL (29.9-35.2); Mean Corpuscular Hemoglobin 29.6 pg (26.7-34.0); Mean Corpuscular Volume 89.3 fL (81.0-99.0); Mean Platelet Volume 9.3 fL (9.5-13.5); Monocytes Absolute Auto 1.1 10^3/uL (0.3-0.8); Monocytes Percent Auto 9.8 % (1.7-12.0); Neutrophils Absolute Auto 7.2 10^3/uL (1.4-6.5); Neutrophils Percent Auto 65.3 % (43.0-75.0); Platelet Count 279 10^3/uL (150-450); Red Blood Count 4.19 10^6/uL (4.20-5.40)
[2024-09-13] MEDS: LACTATED RINGER'S SOLUTION 1,000 ML 50 ML IV ×2 (06:49→08:45)
[2024-09-13 06:52] LABS: HCG Quantitative <1 mIU/mL
--- NOTE | 2024-09-13 08:28 | P.ON_ITS ---
Brief Operative Note Date of procedure: 09/13/24 Pre-op diagnosis general: pelvic pain, rt ovarian cyst Post-op diagnosis: other (lt ovarian cyst) Procedure: NAME OF PROCEDURE: [diagnostic laparoscopy lt ovarian cytotomy ] PROCEDURE: The patient was taken back to the Operating Room where she was placed in dorsal lithotomy position after given general anesthesia. The patient was prepped and draped in normal sterile fashion. A sponge stick was placed into the patient's vagina. Attention was turned to the patient's abdomen, where a small umbilical incision was made. The fascia was tented using Haleigh clamps and the fascia was entered sharply. Confirmation of intraabdominal placement of the 10 mm port was confirmed under direct visualization using a laparoscope. The patient's abdomen was then insufflated using CO2 gas with approximately 4 liters. A second port was placed left laterally, this was done under direct visualization with a 5 mm port. Survey of the patient's abdomen demonstrated normal liver and gallbladder. Survey of the patient's pelvic anatomy demonstrated normal appearing rt ovary and tubes, lt ovarian cyst noted as well as normal appearing uterus. lt ovarian cystotomy performed using a needle for aspiration, monopolar scissors used for cautery. No endometrial implants could be noted, no evidence of any pelvic disease was seen, normal appearing pelvic cavity. All instruments were removed from the patient's abdomen. The patient's abdomen was deinsufflated of CO2 gas. The patient tolerated the procedure well. Sponge stick was removed from the patient's vagina. The patient's infraumbilical fascia was closed using #0 Vicryl on a GI needle. The patient's skin was closed laterally and infraumbilically using 4-0 Vicryl. The patient tolerated the procedure well. Sponge, lap and needle counts were correct x 2. The patient was taken to Recovery Room in stable condition. Anesthesia: HARDEEPA Surgeon: Wisam Rodriguez Independent Contractor: Evelyn Travis Estimated blood loss (mL): 5 Pathology: other (lt ovarian cyst fluid for cytology) Condition: stable Disposition: PACU Urinary Catheter Management Urinary Catheter Management Urethral: Cath placed during this visit: no
--- NOTE | 2024-09-13 09:42 | PC.NURSE ---
States she feels anxious; anesthesia notified and speaks with patient; no orders received
--- NOTE | 2024-09-13 11:23 | PC.NURSE ---
Denies urge to void
--- NOTE | 2024-09-13 11:23 | PC.NURSE ---
Up to bathroom and voids clear yellow without dificulty
== END 2024-09-13 11:10 | disposition home or self-care (01) ==
LOC: SURGOUT 06:17
PROVIDERS: PCP Family Medicine; Visit Provider Obstetrics & Gynecology
PROC: (CPT 840; principal; 2024-09-13 07:30)
DX: R10.2 Pelvic and perineal pain (principal); N83.202 Unspecified ovarian cyst, left side; E07.9 Disorder of thyroid, unspecified
CPT/HCPCS: 49322; 36415; 84702; 85025; 88112; 88305; 99999; J1100; J1885; J2250; J2405; J2704; J3010

== ENCOUNTER 2025-01-16 07:44 | Outpatient (OUT) | payer BC, SELFPAY ==
--- OUTSIDE RECORDS SUMMARY | 2025-01-14 04:45 | XMS_ITS ---
Author Organization [facility] in [place] Address [address] [place] [address] Care Team Providers Care O And M Supervisor Name Role Phone Abilio Garcia Primary Care Provider REASON FOR VISIT allergies Encounters Encounter Location Date Provider Diagnosis [facility] [address] [place] [address] 01/14/2025 Abilio Garcia Allergic sinusitis J30.9 Assessments Encounter Date Diagnosis (ICD Code) Assessment Notes Treatment Notes Treatment Clinical Notes Section Notes 01/14/2025 Allergic sinusitis (ICD-10 - J30 .9) Plan Of Treatment No Information Medications Administered Medication Instructions Date of Administration Dosage Notes Triamcinolone 40 mg/ml 0 mg Progress Notes * Kasandra MACIAS DDOB: 4 (29 yo F)Acc No.[id number]:01/14/2025 Patient:?Kasandra MACIAS :1995???Age:29 Y???Sex:FemalePhone:[phone] Address:[address] [place] [address], [phone] Subjective: * Chief Complaints: * A llergies * Medical History: * Surgical History: * Hospitalization/Major Diagno stic Procedure: * Medications: Objective: * Vitals: * Physical Examination: ??? Assessment: * Assessment: 1.?Allergic sinusitis - J30.9 (Primary)??? Plan: * Treatment: * Therapeutic Injections: Triamcinolone 40 mg/ml : 80 mg (Route: Intramuscular) given by SARAH Singleton on right deltoid (Allergic sinusitis) * Procedure Codes: J 3301 [facility] ACET,PER 10MG. * true * Date:?Generated for Printing/Faxing/eTransmitting on:?01/16/2025 07:50 AM EDT
--- OUTSIDE RECORDS SUMMARY | 2025-01-15 07:39 | XMS_ITS ---
Author Organization The [facility] in [place] Address [address] [place] [address] Care Team Providers Care Hydrodynamics Professor Name Role Phone Abilio Garcia Primary Care Provider REASON FOR VISIT labs Encounters Encounter Location Date Provider Diagnosis [facility] [address] [place] [address] 01/15/2025 Abilio Garcia Amenorrhea, unspecif ied N91.2 Assessments Encounter Date Diagnosis (ICD Code) Assessment Notes Treatment Notes Treatment Clinical Notes Section Notes 01/15/2025 Amenorrhea, unspecified (ICD-10 - N91.2) Plan Of Treatment Pending Test Test Name Order Date PROGESTERONE 01/15/2025 CMP - Comprehensive Metabolic Panel 12/27 CBC AUTO DIFF 01/15/2025 ESTRADIOL 01/15/2025 LUTEINIZING HORMONE (LH) 01/15/2025 PROLACTIN 01/15/2025 THYROID PANEL (T4/TSH/FREE T3) FSH 01/15/2025 Progress Notes * Kasandra MACIAS DDOB: 4 (29 yo F)Acc No.[id number]:01/15/2025 Patient:?SANCHEZ Kasandra D :1995???Age:29 Y???Sex:FemalePhone:[phone] Address:[address] [place] [address], [address] Subjective: * Chief Complaints: * L abs * Medical History: * Surgical History: * Hospitalization/Major Diagno stic Procedure: * Medications: Objective: * Vitals: * Physical Examination: ??? Assessment: * Assessment: 1.?Amenorrhea, unspecified - N91.2 (Primary)??? Plan: * Treatment: ?LAB: PROGESTERONE ?LAB: CMP - Comprehensive Metabolic Panel ?LAB: CBC AUTO DIFF ?LAB: ESTRADIOL ?LAB: LUTEINIZING HORMONE (LH) ?LAB: PROLACTIN ?LAB: THYROID PANEL (T4/TSH/FREE T3) ?LAB: FSH * Procedure Codes: * true * Date:?Generated for Printing/Faxing/eTransmitting on:?01/16/2025 07:50 AM EDT
--- OUTSIDE RECORDS SUMMARY | 2025-01-16 07:50 | XMS_ITS | CCD ---
Author Organization [facility] CliniSywi Care Team Providers Care Three Dimensional Art Instructor Name Role Phone LydiaDudley Unavailable Mohini Martinez Unavailable JENNIFER ., DR SILVA Admitting Unavailable JENNIFER ., DR SILVA Attending Unavailable HOY ., DR PERDUE Primary Care Unavailable WICHITA, DR DUDLEY Emanuel Consulting Unavailable JENNIFER ., DR SILVA Consulting Unavailable LEANDRO, JAMIL Admitting Unavailable JAMIL REEVES Attending Unavailable HOY ., DR PERDUE Primary Care Unavailable HOY ., DR PERDUE Consulting Unavailable DUDLEY LANE Consulting Unavailable HOY ., DR PERDUE Admitting Unavailable HOY ., DR PERDUE Attending Unavailable HOY ., DR PERDUE Primary Care Unavailable HOY ., DR PERDUE Consulting Unavailable WICHITA, DR DUDLEY Emanuel Consulting Unavailable JENNIFER ., [...] HOY ., DR PERDUE Consulting Unavailable Lam Machuca Consulting Unavailable JENNIFER ., DR SILVA Admitting [...] Unavailable JENNIFER ., DR SILVA Consulting Unavailable Lma Machuca Consulting Unavailable JENNIFER ., DR SILVA Admitting Unavailable JENNIFER ., DR SILVA Attending Unavailable HOY ., DR PERDUE Primary Care Unavailable JENNIFER ., DR SILVA Admitting Unavailable JENNIFER ., DR SILVA Attending Unavailable HOY ., DR PERDUE Primary Care Unavailable Iron Garcia MD Primary Care Provider [phone] Iron Garcia MD Primary Care Provider [phone] Hannah David DO Attending Provider Hannah David Admitting Unavailable Hannah David Attending Unavailable Jennifer, Ricardo Admitting Unavailable Jennifer, Ricardo Attending Unavailable JENNIFER, RICARDO Attending Unavailable JOSI PRESCOTT Attending Unavailable JENNIFER, RICARDO Attending Unavailable JENNIFER, RICARDO Attending Unavailable JENNIFER, RICARDO Attending Unavailable JOSI PRESCOTT Attending Unavailable Medications Current Medications MedicationDrug Class(es)DatesSig (Normalized)Sig (Original)[id number] 200 actuat albuterol 0.09 mg/actuat metered dose inhaler (1 source)beta2-Adrenergic AgonistStart: hr buPROPion hydrochloride 150 mg extended release oral tablet (2 sources)AminoketoneStart: 65-43-0971pbmy 1 tablet by mouth every twenty-four hours in the morningbuPROPion XL (Wellbutrin XL) 150 MG 24 hr tablet Take 150 mg by mouth in the morning. 0 11/17/2022 ActivebusPIRone (1 source)1 ml galcanezumab-gnlm 120 mg/ml auto-injector (2 sources)galcanezumab (Emgality) 120 MG/ML auto-injector Emgality 0 Active levocetirizine (2 sources)Histamine-1 Receptor AntagonistXyzal ActivelevoFLOXacin 500 mg oral tablet (2 sources)Quinolone AntimicrobialStart: 70-03-4719vlyl 1 tablet by mouth in the morninglevoFLOXacin (Levaquin) 500 MG tablet Take 1 tablet by mouth in the morning. 0 07/27/2022 Activemagnesium oxide 400 mg oral capsule (2 sources)Start: 02-22-2023 End: 55-05-2451wzzm 1 capsule by mouth in the morningmagnesium oxide 400 MG capsule Indications: Cluster headache, not intractable, unspecified chronicity pattern Take 1 capsule (400 mg) by mouth in the morning. 30 capsule 11 02/22/2023 02/22/2024 ActivemedroxyPROGESTERone acetate 10 mg oral tablet (8 sources)ProgestinStart: 03-01-2024 End: 70-57-5831fvjt 1 tablet by mouth once dailymedroxyPROGESTERone (Provera) 10 MG tablet Indications: Abnormal vaginal bleeding Take 1 tablet (10mg) by mouth Daily for 14 days 14 tablet 03/01/2024 08/21/2024 Discontinuedosmotic 24 hr metFORMIN hydrochloride 500 mg extended release oral tablet (2 sources)BiguanidemetFORMIN, OSM, (Fortamet) 500 MG 24 hr tablet metFORMIN HCl ER 0 Activeondansetron 4 mg oral tablet (2 sources)Serotonin-3 Receptor AntagonistStart: 72-77-3961cajb 1 tablet by mouth twice daily as needed for nauseaondansetron (Zofran) 4 MG tablet TAKE 1 TABLET BY MOUTH TWICE DAILY NEEDED FOR NAUSEA 0 02/19/2023 EvkowkIahzob66- Iron Fum-Folic Ac-Om3 (One A Day Women's Dha) 28 mg iron- 800 mcg combo pack (2 sources)Start: 80-92-9499Voaihj40-Iron Fum-Folic Ac-Om3 (One A Day Women's Dha) 28 mg iron- 800 mcg combo pack Active PKG PO May 22, 2023 1:00amStart: 90-03-4753Wuxiqc20-Iron Fum-Folic Ac-Om3 (One A Day Women's Dha) 28 mg iron- 800 mcg combo pack Active PKG PO May 22, 2023 12:00ampromethazine hydrochloride 25 mg oral tablet (2 sources)PhenothiazineStart: 64-09-1801enbb 1 tablet by mouth every six hours as neededpromethazine (Phenergan) 25 MG tablet 1 tablet as needed Orally q6h for 30 0 02/24/2023 ActiveSertraline (1 source)Serotonin Reuptake InhibitorSUMAtriptan 100 mg oral tablet (2 sources)Serotonin-1b and Serotonin-1d Receptor AgonistSUMAtriptan (Imitrex) 100 MG tablet TAKE 1 TABLET AT LEAST 2 HOURS BETWEEN DOSES NEEDED TWICE A DAY 0 ActiveVitamin D3 (2 sources)Vitamin D3 Active Completed/Discontinued Medications MedicationDrug Class(es)DatesSig (Normalized)Sig (Original)24 hr desvenlafaxine succinate 50 mg extended release oral tablet (4 sources)Serotonin and Norepinephrine Reuptake InhibitorStart: 05-11-2017 End: 02-69-3271jspg 1 tablet by mouth once daily, then take 1 tablet by mouth every twenty-four hoursDesvenlafaxine Succinate (Pristiq) 50 mg tablet extended release 24 hr Discontinued 50 MG PO Daily May 11, 2017 1:00am May 22, 2023 10:32amdicyclomine hydrochloride 20 mg oral tablet (2 sources)AnticholinergicStart: 08-96-0110sacq 1 tablet by mouth every twelve hourslinaclotide 0.072 mg oral capsule (4 sources)Guanylate Cyclase-C AgonistStart: 05-11-2017 End: 86-32-6191kdnc 1 capsule by mouth once dailyLinaclotide (Linzess) 72 mcg capsule Discontinued 72 MCG PO Daily May 11, 2017 1:00am May 12, 2017 8:46amLinzess 72 MCG Oral for 30 Not-Takinglubiprostone 0.008 mg oral capsule (4 sources)Chloride Channel ActivatorStart: 05-12-2017 End: 02-40-0117drpw 1 capsule by mouth twice dailyLubiprostone (Amitiza) 8 mcg Capsule Discontinued 8 MCG PO Twice daily May 12, 2017 1:00am May 22, 2023 10:32amtake 1 capsule by mouth every twelve hours Problems Active Problems Problem ClassificationProblemDateDocumented DateEpisodic/ChronicAbdominal pain (10 sources)Abdominal pain; Translations: [Unspecified abdominal pain]Onset: 94-14-5158QxozpbawDluyha (2 sources)Exacerbation of intermittent asthma; Translations: [Mild intermittent asthma with (acute) exacerbation]Onset: 01-27-2021 Resolved: 75-74-2409ToclsutJtexdxvdiyeee (1 source)Endometriosis, unspecified; Translations: [ENDOMETRIOSIS UNSPECIFIED] Onset: 66-42-4197EykuaefCszqze infertility (4 sources)Female infertility associated with anovulation; Translations: [FE INFERTILITY ASSOC W/ANOVULATION]Onset: 87-51-0085XwaisabCjryjiotkwbfw symptoms and ill-defined conditions (2 sources)Stoma finding; Translations: [Unspecified cystostomy status] 84-29-1405LykxkhaZwwzvxge; including migraine (5 sources)Migraine, unspecified, not intractable, without status migrainosus; Translations: [MIGRAINE UNS NOTINTRACT W/O SM]Onset: 65-80-8733WkonoqhLfncukhqm disorders (11 sources)Amenorrhea, unspecified; Translations: [Irregular menstruation, unspecified]Onset: 60-63-1484CjjheqbQzemj aftercare (2 sources)Postoperative visit; Translations: [Encounter for other specified surgical aftercare]94-05-6363ScvynohjWlqvm endocrine disorders (15 sources)Hypoglycemia; Translations: [Hypoglycemia, unspecified]Onset: 918697-73-8256LgdcsnhMjmgv endocrine disorders (2 sources)Polycystic ovary syndrome; Translations: [Polycystic ovarian syndrome]13-79-5790PbihkfaTtvaw female genital disorders (2 sources)Abnormal vaginal bleeding; Translations: [Abnormal uterine and vaginal bleeding, unspecified]63-16-5248SxdkwtiXcirl female genital disorders (4 sources)Noninflammatory disorder of ovary, fallopian tube and broad ligament, unspecified; Translations: [OTH NONINFL D/O OVARY TUBE AND BRD LIG]Onset: 80-00-6050TczkjyiaRgdtk gastrointestinal disorders (2 sources)Irritable bowel syndrome characterized by constipation; Translations: [Irritable bowel syndrome with constipation]ChronicOther gastrointestinal disorders (2 sources)Irritable bowel syndrome; Translations: [Mixed irritable bowel syndrome]ChronicOther gastrointestinal disorders (1 source)Mixed irritable bowel syndrome; Translations: [Irritable bowel syndrome with both constipation and diarrhea K58.2]Onset: 12-22-2020 Resolved: 34-67-7895AnxybbmSajqd gastrointestinal disorders (2 sources)Altered bowel function; Translations: [Change in bowel habit] 75-85-5617JlugkgsdClzhbew on above:Problem List clean-up per request of Phys. EHR CmteOther nutritional; endocrine; and metabolic disorders (5 sources)Metabolic syndrome; Translations: [METABOLIC SYNDROME]Onset: 96-20-8218XjzohhlCrtzp nutritional; endocrine; and metabolic disorders (1 source)Weight loss; Translations: [Abnormal weight loss]55-97-0047Hkzxivdw Other nutritional; endocrine; and metabolic disorders (1 source)Weight decreased; Translations: [Abnormal weight loss]03-09-2023 EpisodicComment on above:Problem List clean-up per request of Phys. EHR Cmte Other screening for suspected conditions (not mental disorders or infectious disease) (6 sources)Other specified abnormal findings of blood chemistry; Translations: [Patient encounter status]Onset: 85-00-6436GuqbrotsDevkxud cyst (11 sources)Unspecified ovarian cyst, left side; Translations: [Other ovarian cyst, right side]Onset: 61-42-0702MxldxjnmNemefvsp codes; unclassified (2 sources)History of laparoscopy; Translations: [Other specified postprocedural states]50-23-2141TmewlwskIbllgsomsyq; intervertebral disc disorders; other back problems (4 sources)Other cervical disc degeneration, unspecified cervical region; Translations: [OTH CERV DISC DEGENERATION UNS CERV]Onset: 92-06-6479Fgptlrf Unclassified (4 sources)CONTACT W/AND (SUSP) EXPOS COVID-19; Translations: [CONTACT W/AND (SUSP) EXPOS COVID-19]Onset: 02-12-2022 Past or Other Problems Problem ClassificationProblemDateDocumented DateEpisodic/ChronicAcute bronchitis (5 sources)Acute bronchitis, unspecified; Translations: [ACUTE BRONCHITIS UNSPECIFIED]Onset: 93-06-0395LnjrxsluBlvtiasplz and other anemia (15 sources)Anemia; Translations: [Anemia, unspecified]Onset: 05-26-2023 37-62-4117NgaqrlhrDkenkgwdrbemc and screening for infectious disease (1 source)Contact with and (suspected) exposure to other viral communicable diseasesOnset: 01-27-2021 Resolved: 64-59-3267XsrogztgGpbzpb and vomiting (2 sources)Nausea; Translations: [Nausea]EpisodicOther gastrointestinal disorders (2 sources)Constipation alternates with diarrhea; Translations: [Other specified symptoms and signs involving the digestive system and abdomen]EpisodicOther gastrointestinal disorders (4 sources)Abdominal distension (gaseous); Translations: [ABDOMINAL DISTENSION GASEOUS]Onset: 63-62-0805BntwgwodAzoem and delivery including normal (17 sources)Second trimester ; Translations: [Encounter for supervision of normal , unspecified, second trimester]Onset: 156124-23-9043 EpisodicOther upper respiratory infections (4 sources)Acute pharyngitis, unspecified; Translations: [ACUTE PHARYNGITIS UNSPECIFIED]Onset: 75-61-2354DbxcvkulLeclsxqhctjetj and other problems of amniotic cavity (15 sources)Abnormal amniotic fluid; Translations: [Polyhydramnios, unspecified trimester, not applicable or unspecified]Onset: 475999-63-5922Bakgpuro Residual codes; unclassified (15 sources)Gestation period, 32 weeks; Translations: [32 weeks gestation of ]Onset: 330901-55-0657ZhvodvnyRuytogenajoe (1 source)CONTACT W/AND (SUSP) EXPOS COVID-19; Translations: [CONTACT W/AND (SUSP) EXPOS COVID-19]Onset: 04-01-2022 Results Test NameValueInterpretationReference RangeFacilityALL CBC WITH AUTO DIFFon 80-95-9218PGMZAOQQE ABSOLUTE OYZT3VERK HealthcareBasophils/100 WBC (Bld)0.3 %0.2 - 2.0 %NOMS HealthcareEosinophils/100 WBC (Bld)1.7 %0.9 - 7.0 %[facility] Erythrocyte distribution width (RBC) [Ratio]13 %11.0 - 15.0 %[facility] Hematocrit (Bld) [Volume fraction]37.4 %36.0 - 48.0 %NOMS HealthcareHemoglobin (Bld) [Mass/Vol]12.4 g/dL12.0 - 16.0 g/dLNOMS HealthcareIMMATURE GRANULOCYTES ABS AUTO0.03NOMS HealthcareImmature granulocytes/100 WBC (Bld)0.3 %0.0 - 0.5 % [facility] CenterInterpretation and review of laboratory resultsAbnormalNOWY HealthcareLYMPHOCYTES ABSOLUTE AUTO2.5NOMS HealthcareLymphocytes/100 WBC (Bld) 22.6 %20.5 - 60.0 %[facility] CenterMCH (RBC) [Entitic mass]29.6 pg26.7 - 34.0 pg [facility] HospitalHC (RBC) [Mass/Vol]33.2 g/dL29.9 - 35.2 g/dLTwo Rivers Psychiatric HospitalV (RBC) [Entitic vol]89.3 fL81.0 - 99.0 fLKansas City VA Medical CenterMONOCYTES ABSOLUTE AUTO 1.1HighNOWY HealthcareMonocytes/100 WBC (Bld)9.8 %1.7 - 12.0 %[facility] NEUTROPHILS ABSOLUTE AUTO7.2HighNOWY HealthcareNeutrophils/100 WBC (Bld)65.3 % 43.0 - 75.0 %[facility] CenterPlatelet mean volume (Bld) [Entitic vol]9.3 fLLow9.5 - 13.5 fLKansas City VA Medical CenterTBH EO #0.2NOMS [facility] HospitalTB [id number] Memorial Health SystemsTB RBC4.19LowNOProgress [facility] [id number] Memorial Health SystemsCLINISYNCNOMS HealthcareLon 09-13-2024 Specimen: [id number] Received: 09/13/24 Status: LESLEY Jones Num: [id number] Spec Type: Cytology Subm Dr: Ricardo Rodriguez Tissues: A CYST FLUID (LT OVARY FLUID) Procedures: HE/2, Gross/Micro L4, Cyto Prepstain, PAPSTN Age/ Patient Sex Location Account Attending Physician Kasandra Macias 28/ LABELL [id number] Ricardo Rodriguez SPEC NUM: [id number] RECD: 09/13/24 STATUS: LESLEY JONES NUM: [id number] BETHEL: 09/13/[address] [facility] [address]: Ricardo Rodriguez ENTERED: 09/13/[address] [facility] DR: Shalini,Lab SPEC TYPE: Cytology DEPT: [facility] ENTERED BY: [id number] RECV BY: [id number] ORDERED: HE/2, Gross/Micro L4, Cyto Prepstain, PAPSTN ORDERED: HE/2, Gross/Micro L4, Cyto Prepstain, PAPSTN Pathological Diagnosis Left ovarian fluid, cytology (ThinPrep and Cell Block): - Unsatisfactory for evaluation due to acellular specimen. - Proteinaceous debris consistent with cystic content. - Nondiagnostic. Clinical Information Left ovary fluid. Gross Description Received fresh is 12 ml yellow hazy unfixed fluid for cytology said to have been obtained as Left Ovary Fluid. ThinPrep and cell block preparations are prepared for microscopic examination. (YC/nh) Microscopic Description Microscopic examination is performed. CPT Codes 40713, 03269 Specimen: [id number] Received: 09/13/24 Status: LESLEY Jones Num: [id number] Spec Type: Cytology Subm Dr: Ricardo Rodriguez Tissues: A CYST FLUID (LT OVARY FLUID) Procedures: HE/2, Gross/Micro L4, Cyto Prepstain, PAPSTN Patient: Kasandra Macias [id number] (Continued) Signed (signature on file) Héctor Valverde MD 09/14/24 1017Normal [facility] [phone] [Catalytic activity/Vol]188 U/L81 - 234 U/LNOMS HealthcareCLINISYNCNOMS HealthcareUrine Cultureon 08-15-2024 Bacteria identified Cx Nom (U)<9,000 colonies/ml mixed bacterial skin contaminants 2 Days PERFORMED BY: [facility] [address] [place] [address] PATHOLOGIST DISTRICT WILDLIFE MANAGER GHAZAL TEIXEIRA M.D.NormalHca Florida Plantation Emergency Physician GroupComment on above: Performed By: #### CUU #### [facility] [address] [place] [address] USAALL CBC WITH AUTO DIFFon 77-31-2739XWYJBWAIB ABSOLUTE AUTO 0NOMS HealthcareBasophils/100 WBC (Bld)0.5 %0.2 - 2.0 %[facility] Eosinophils/100 WBC (Bld)2.6 %0.9 - 7.0 %NOMS HealthcareErythrocyte distribution width (RBC) [Ratio]13.3 %11.0 - 15.0 %NOMS HealthcareHematocrit (Bld) [Volume fraction]39.2 %36.0 - 48.0 %NOMS HealthcareHemoglobin (Bld) [Mass/Vol]12.8 g/dL 12.0 - 16.0 g/dLNOWY HealthcareIMMATURE GRANULOCYTES ABS AUTO0.02[facility] Immature granulocytes/100 WBC (Bld)0.3 %0.0 - 0.5 %NOMS HealthcareInterpretation and review of laboratory resultsAbnormalNOMS HealthcareLYMPHOCYTES ABSOLUTE AUTO1.7NOMS HealthcareLymphocytes/100 WBC (Bld)27.1 %20.5 - 60.0 %NOMS [facility] HospitalMCH (RBC) [Entitic mass]29.4 pg26.7 - 34.0 pgNOPemiscot Memorial Health SystemsMCHC (RBC) [Mass/Vol]32.7 g/dL29.9 - 35.2 g/dLNOPemiscot Memorial Health SystemsMCV (RBC) [Entitic vol]89.9 fL 81.0 - 99.0 fLNOWY HealthcareMONOCYTES ABSOLUTE AUTO0.6[facility] Monocytes/100 WBC (Bld)9.9 %1.7 - 12.0 %NOMS HealthcareNEUTROPHILS ABSOLUTE AUTO 3.7NOMS HealthcareNeutrophils/100 WBC (Bld)59.6 %43.0 - 75.0 %[facility] Platelet mean volume (Bld) [Entitic vol]8.9 fLLow9.5 - 13.5 fLNOMS HealthcareTBH EO #0.2NOMS HealthcareTBH [id number] HealthcareTBH RBC4.36NOMS HealthcareTBH WBC 6.2NOMS HealthcareCLINISYNCNOMS HealthcareLaboratory - Microbiology and Antimicrobial susceptibilityOrdered By: Teresa Wilkins on 14-24-3278RCUV-CoV-2 (COVID-19) RNA SHIRIN+probe Ql (Unsp spec)[facility] Urinalysis macro (dipstick) panel (U)on 87-69-8966Mjumunmpo, UANegativeNegative - 4(70) +++ mg/dLNOMS HealthcareBlood, UANegativeNegative - 50 Jayson/mcLNOMS HealthcareClarity, UAClearNOMS HealthcareColor, UAYellowNOMS HealthcareGlucose, UANegativeNegative - 2000(110) ++++ mg/dLNOMS HealthcareInterpretation and review of laboratory resultsAbnormalNOMS HealthcareKetones, UAPositiveNegative - 160(16) ++++ mg/dLNOMS HealthcareComment on above:traceLeukocytes, UATrace Negative - 500+++ Lolita/mcLNOMS HealthcareNitrite, UANegativeNegative - Positive NOMS HealthcarepH, UA6.05 - 9NOMS HealthcareProtein, UANegativeNegative - 2000(20) ++++ mg/dLNOMS HealthcareSpec Grav, UA1.0301 - 1.03N[facility] Urobilinogen, UA0.20.2 - 12 mg/dLNOMS [facility] Anne HospitalNOWY HealthcareCBC AUTO DIFFon 40-59-8342RNCB #0.0 103/ulNormal0.0-0.1The [facility] CenterComment on above: Performed By: #### RF #### [facility] [address] [address] [address] Venkat Allisonsophils/100 WBC (Bld)0.5 %Normal0.2-2.0The [facility] Comment on above:Performed By: #### RF #### [facility] [address] [place] [address] Dr. Venkat Willson #0.1 103/ulNormal0.0-0.7The [facility] CenterComment on above: Performed By: #### RF #### [facility] [address] [place] [address] Dr. Venkat Lewosinophils/100 WBC (Bld)1.7 %Normal0.9-7.0The [facility] Comment on above:Performed By: #### RF #### [facility] [address] [place] [address] Dr. Venkat Lewrythrocyte distribution width (RBC) [Ratio]12.7 %Sbfduv97.0-15.0 The [facility] on above:Performed By: #### RF #### [facility] [address] [place] [address] Dr. Venkat SloanHematocrit (Bld) [Volume fraction]40.4 %Wktufc59.0-48.0The [facility] CenterComment on above:Performed By: #### RF #### [facility] [address] [place] [address] Dr. Venkat SloanHemoglobin (Bld) [Mass/Vol]13.1 g/rAYuocmt88.0-16.0The [facility] on above:Performed By: #### RF #### [facility] [address] [place] [address] Dr. Venkat Monson #0.02 10e3/ulNormal0.00-0.03The [facility] CenterComment on above:Performed By: #### RF #### [facility] [address] [place] [address] Dr. Venkat Monson %0.3 %Normal0.0-0.5The [facility] on above: Performed By: #### RF #### [facility] [address] [place] [address] Dr. Venkat PlazaH #2.0 103/ulNormal1.2-3.8The [facility] HospitalComment on above:Performed By: #### RF #### [facility] [address] [place] [address] Dr. Venkat Perezmphocytes/100 WBC (Bld)26.2 %Ksvyqt61.5-60.0The [facility] CenterComment on above:Performed By: #### RF #### [facility] [address] [place] [address] Dr. Venkat SantosUAL DIFF REQNONormalThe [facility] CenterComment on above: Performed By: #### RF #### [facility] [address] [place] [address] Dr. Venkat Kearns (RBC) [Entitic mass]28.4 ylHasvre71.7-34.0The [facility] CenterComment on above:Performed By: #### RF #### [facility] [address] [place] [address] Dr. Venkat Kearns (RBC) [Mass/Vol]32.4 g/bLHfvyme96.9-35.2The [facility] CenterComment on above:Performed By: #### RF #### [facility] [address] [place] [address] Dr. Venkat Kearns (RBC) [Entitic vol]87.4 lLHgpnxp49.0-99.0The [facility] CenterComment on above:Performed By: #### RF #### [facility] [address] [place] [address] Dr. Venkat Marte #0.7 103/ulNormal0.3-0.8The [facility] CenterComment on above:Performed By: #### RF #### [facility] [address] [place] [address] Dr. Venkat Desaiocytes/100 WBC (Bld)8.8 %Normal1.7-12.0The [facility] on above:Performed By: #### RF #### [facility] [address] [place] [address] Dr. Venkat Lopez #4.8 103/ulNormal1.4-6.5The [facility] on above:Performed By: #### RF #### [facility] [address] [place] [address] Dr. Venkat Zhengutrophils/100 WBC (Bld)62.5 %Oglzzs04.0-75.0The [facility] on above:Performed By: #### RF #### [facility] [address] [place] [address] Dr. Venkat SloanPlatelet mean volume (Bld) [Entitic vol]8.5 fLCritically low 9.5-13.5The [facility] CenterComment on above:Performed By: #### RF #### [facility] [address] [place] [address] Dr. Venkat SloanPLT331 103/dxUcgbxc549-422Zvk [facility] on above: Performed By: #### RF #### [facility] [address] [place] [address] Dr. Venkat SloanRBC4.62 106/ulNormal4.20-5.40The [facility] CenterComment on above:Performed By: #### RF #### [facility] [address] [place] [address] Dr. Venkat SloanWBC7.7 103/ulNormal4.0-11.0The [facility] on above: Performed By: #### RF #### [facility] [address] [place] [address] Dr. Venkat Jaeger QUANT HCGon 90-86-5185XVX QUANT<1NormalThe [facility] Comment on above:Performed By: #### PREGQNT #### [facility] [address] [place] [address] Dr. Venkat [place] RANGESEE [facility] Memorial HospitalComment on above: Result Comment: 5-50 0.2-1 WEEK 50-500 1-2 WEEKS 100-5,000 2-3 WEEKS 500-10,000 3-4 WEEKS 1,000-50,000 4-5 WEEKS 10,000-100,000 5-6 WEEKS 15,000-200,000 6-8 WEEKS 10,000-100,000 2-3 MONTHSPerformed By: #### PREGQNT #### [facility] [address] [place] [address] Dr. Venkat LynnGESTERONEon 56-78-9825Nhrfixbyzyff3.7 ng/mLNMercy Health St. Elizabeth [facility] HospitalComment on above:Result Comment: Follicular phase 0.1 - 0.9 Luteal phase 1.8 - 23.9 Ovulation phase 0.1 - 12.0 First trimester 11.0 - 44.3 Second trimester 25.4 - 83.3 Third trimester 58.7 - 214.0 Postmenopausal 0.0 - 0.1Performed By: #### TSH #### [facility] [address] [place] [address] Dr. Venkat Jaeger QUANT HCGon 56-48-9261VAB QUANT1 mIU/mLNMercy Health St. Elizabeth [facility] HospitalComment on above:Performed By: #### PREGQNT #### [facility] [address] [place] [address] Dr. Venkat [place] [facility] CenterComment on above: Result Comment: 5-50 0.2-1 WEEK 50-500 1-2 WEEKS 100-5,000 2-3 WEEKS 500-10,000 3-4 WEEKS 1,000-50,000 4-5 WEEKS 10,000-100,000 5-6 WEEKS 15,000-200,000 6-8 WEEKS 10,000-100,000 2-3 MONTHSPerformed By: #### PREGQNT #### [facility] [address] [place] [address] Dr. Venkat LynnGESTERONEon 75-32-0202Qssmylmxizqt97.4 ng/mLNMercy Health St. Elizabeth [facility] HospitalComment on above:Result Comment: Follicular phase 0.1 - 0.9 Luteal phase 1.8 - 23.9 Ovulation phase 0.1 - 12.0 First trimester 11.0 - 44.3 Second trimester 25.4 - 83.3 Third trimester 58.7 - 214.0 Postmenopausal 0.0 - 0.1Performed By: #### INFLUAB #### [facility] [address] [place] [address] Dr. Venkat SloanMRI BRAIN WO W CONon [id number] BRAIN WO W CONEXAMINATION: MRI BRAIN WO W CON HISTORY: Migraine [...] for patient's symptoms. Electronically authenticated by: LAM MACHUCA Date: 2022-05-04 08:[address] [place], [place] [address]PREG QUANT HCGon [id number] QUANT<1NormalThe [facility] Medical CenterComment on above:Performed By: #### RF #### [facility] [address] [place] [address] Dr. Venkat SloanG RANGESEE BELOWKettering HealthComment on above: Result Comment: 5-50 0.2-1 WEEK 50-500 1-2 WEEKS 100-5,000 2-3 WEEKS 500-10,000 3-4 WEEKS 1,000-50,000 4-5 WEEKS 10,000-100,000 5-6 WEEKS 15,000-200,000 6-8 WEEKS 10,000-100,000 2-3 MONTHSPerformed By: #### RF #### [facility] [address] [place] [address] Dr. Venkat SloanXR HYSTEROSALPINGOGRAMon [id number] HYSTEROSALPINGOGRAM EXAMINATION: XR HYSTEROSALPINGOGRAM HISTORY: Noninflammatory disorder [...] 2. Unremarkable uterus. Electronically authenticated by: LAM MACHUCA Date: 2022-05-04 16:09[facility]tering HealthPROGESTERONEon 00-71-4913Pxuizojvbofc2.4 ng/mLNormalVan Wert County HospitalComment on above:Result Comment: Follicular phase 0.1 - 0.9 Luteal phase 1.8 - 23.9 Ovulation phase 0.1 - 12.0 First trimester 11.0 - 44.3 Second trimester 25.4 - 83.3 Third trimester 58.7 - 214.0 Postmenopausal 0.0 - 0.1Performed By: #### INFLUAB #### [facility] [address] [place] [address] Dr. Venkat Chiu SPUTUMon [id number] SPUTUMCulture Observations: NORMAL RESPIRATORY NATALEE.NormalVan Wert County HospitalComment on above:Performed By: #### RF #### [facility] [address] [place] [address] Dr. Venkat Maza GRAM STAINon [id number] [facility] Comment on above:Performed By: #### RF #### [facility] [address] [place] [address] Dr. Venkat SegundoTHEROIDSKettering HealthComment on above:Performed By: #### RF #### [facility] [address] [place] [address] Dr. Robledo ChangEPITHELIALS<25Kettering HealthComment on above: Performed By: #### RF #### [facility] [address] [place] [address] Dr. Venkat HuiAL ELEMENTSKettering HealthComment on above: Performed By: #### RF #### [facility] [address] [address] [address] Venkat Sena NEG BACILLIRARENormalVan Wert County HospitalComment on above: Performed By: #### RF #### [facility] [address] [place] [address] Dr. Venkat Sena NEG DIPPLOCOCCINoOhioHealthComment on above: Performed By: #### RF #### [facility] [address] [address] [address] Venkat Sena POS BACILLINoOhioHealthComment on above: Performed By: #### RF #### [facility] [address] [place] [address] Dr. Venkat Sena POSITIVE COCCIRARENMercy Health St. Elizabeth Youngstown HospitalComment on above:Performed By: #### RF #### [facility] [address] [place] [address] Dr. Venkat Brandon (Bld) [#/Vol]10*3/uLNoOhioHealthComment on above:Performed By: #### RF #### [facility] [address] [place] [address] Dr. Venkat Ty-19 PCR ([facility]VDTHE [facility])on [id number]-CoV-2 (COVID-19) RNA SHIRIN+probe Ql (Unsp spec)Not detectedNormalNOT DETECTEDVan Wert County Hospital Comment on above:Result Comment: This test is not yet approved or cleared by the [place] FDA. When there are no FDA-approved or cleared tests available, and other criteria are met, FDA can make tests available under an emergency access mechanism called an Emergency Use Authorization (EUA). The EUA for this test is supported by the [place] of Health and Human Service's (HHS's) declaration that circumstances exist to justify the emergency use of in vitro diagnostics for the detection and/or diagnosis of the virus that causes COVID- 19. This EUA will remain in effect (meaning [...] of clinical signs and symptoms consistent with SARS-CoV-2.Performed By: #### PREGQNT #### [facility] [address] [place] [address] Dr. Venkat Mixon AND B AGon [id number] Health [facility] on above:Result Comment: Negative for Flu A protein angiten. Infection due to Flu A cannot be ruled out. FluA angiten in the sample may be below the detection limit of the test.Performed By: #### INFLUAB #### [address] [place] [address] Dr[address] Venkat QuachUBNEGPremier Health [facility] Valley Hospital South on above: Result Comment: Negative for Flu B protein antigen. Infection due to Flu B cannot be ruled out. FluB antigen in the sample may be below the detection limit of the test.Performed By: #### INFLUAB #### [facility] [address] [place] [address] Dr. Venkat Mixon AGNegativeNormalNEGATIVE SEE COMMENTThe [facility] on above:Performed By: #### INFLUAB #### [place] [address] Dr[address] Venkat Burton AGNegativeNormalNEGATIVE SEE COMMENTThe [facility] on above:Performed By: #### INFLUAB #### [facility] [address] [place] [address] Dr. Venkat SloanXR CHEST 2 Von [id number] CHEST 2 VEXAM: XR CHEST 2 V HISTORY: . Acute bronchitis . COMPARISON: 03/10/2021 TECHNIQUE: Frontal and lateral chest FINDINGS: Heart and vascularity are unremarkable. Lungs are expanded and free of focal infiltrates. No acute bony abnormality is appreciated. IMPRESSION: No acute heart or lung disease identified. Electronically authenticated by: DUDLEY LANE Date: 2022-03-24 12:33NoOhioHealthCovid-19 PCR (CVDTB)on [id number]-CoV-2 (COVID-19) RNA SHIRIN+probe Ql (Unsp spec)Not detectedNormalNOT DETECTEDVan Wert County Hospital Comment on above:Result Comment: When diagnostic testing is negative, the [...] for this test is supported by the [place] of Health and Human Service's declaration that circumstances exist to justify the emergency use of in vitro diagnostics for the detection and/or diagnosis of the virus that causes COVID-19. This EUA will remain in effect for the duration of the COVID-19 declaration justifying emergency of IVDs, unless it is terminated or revoked by the FDA (after which the test may no longer be used).Performed By: #### RF #### [facility] [address] [place] [address] Dr. Venkat Mixon AND B AGon [id number] BELOWWhite Hospitalment on above:Result Comment: Negative for Flu A protein angiten. Infection due to Flu A cannot be ruled out. FluA angiten in the sample may be below the detection limit of the test.Performed By: #### INFLUAB #### [facility] [address] [place] [address] Dr. Venkat QuachUBNEGHSMANSIH BELOWMercy Health [facility] on above: Result Comment: Negative for Flu B protein antigen. Infection due to Flu B cannot be ruled out. FluB antigen in the sample may be below the detection limit of the test.Performed By: #### INFLUAB #### [facility] [address] [place] [address] Dr. Venkat Mixon AGNegativeNormalNEGATIVE SEE COMMENTThe Shalini HospitalComment on above:Performed By: #### INFLUAB #### [facility] [address] [address] [address] Venkat Burton AGNegativeNormalNEGATIVE SEE COMMENTThe [facility] CenterComment on above:Performed By: #### INFLUAB #### [facility] [address] [place], [place] [address] Dr. Venkat SloanINTERNAL CONTROLSWithin Normal LimitsNormalWithin Normal Limits The [facility] CenterComment on above:Performed By: #### INFLUAB #### [facility] [address] [address] [address] Venkat SloanCovid-19 PCR ([facility])on [id number]-CoV-2 (COVID-19) RNA SHIRIN+probe Ql (Unsp spec)Not detectedNormalNOT DETECTEDThe [facility] Comment on above:Result Comment: When diagnostic testing is negative, the [...] for this test is supported by the [place] of Health and Human Service's declaration that circumstances exist to justify the emergency use of in vitro diagnostics for the detection and/or diagnosis of the virus that causes COVID-19. This EUA will remain in effect for the duration of the COVID-19 declaration justifying emergency of IVDs, unless it is terminated or revoked by the FDA (after which the test may no longer be used).Performed By: #### INFLUAB #### [facility] [address] [place] [address] Dr. Venkat Mixon AND B AGon [id number] BELOWNoOhioHealthComment on above:Result Comment: Negative for Flu A protein angiten. Infection due to Flu A cannot be ruled out. FluA angiten in the sample may be below the detection limit of the test.Performed By: #### INFLUAB #### [facility] [address] [place] [address] Dr. Venkat Mead Martin Memorial HospitalComment on above: Result Comment: Negative for Flu B protein antigen. Infection due to Flu B cannot be ruled out. FluB antigen in the sample may be below the detection limit of the test.Performed By: #### INFLUAB #### [facility] [address] [place] [address] Dr. Venkat Mixon AGNegativeNormalNEGATIVE SEE COMMENTVan Wert County HospitalComment on above:Performed By: #### INFLUAB #### [facility] [address] [place] [address] Dr. Venkat Burton AGNegativeNormalNEGATIVE SEE COMMENTThe [facility] CenterComment on above:Performed By: #### INFLUAB #### [facility] [address] [place] [address] Dr. Venkat SloanINTERNAL CONTROLSWithin Normal LimitsNormalWithin Normal Limits The [facility] CenterComment on above:Performed By: #### INFLUAB #### [facility] [address] [place] [address] Dr. Venkat SloanPROGESTERONEon 21-83-4493Hedgvidynuwr2.3 ng/mLNormalVan Wert County HospitalComment on above:Result Comment: Follicular phase 0.1 - 0.9 Luteal phase 1.8 - 23.9 Ovulation phase 0.1 - 12.0 First trimester 11.0 - 44.3 Second trimester 25.4 - 83.3 Third trimester 58.7 - 214.0 Postmenopausal 0.0 - 0.1Performed By: #### RF #### [facility] [address] [place] [address] Dr. Venkat SloanACTH STIMULATIONon 99-36-5705Esgkbl Ftcckinc56 ng/kFPgiioh06-433 The [facility] CenterComment on above:Performed By: #### RF #### [facility] [address] [place] [address] Dr. Venkat Basilio Gljxyjymbw17 ng/dLNormalNot Estab.The [facility] Comment on above:Performed By: #### RF #### [facility] [address] [place] [address] Dr. Venkat SloanCovid-19 PCR ([facility])on 87-63-5218TKFF-CoV-2 (COVID-19) RNA SHIRIN+probe Ql (Unsp spec)Not detectedNormalNOT DETECTEDThe [facility] Comment on above:Result Comment: This test is not yet approved or cleared by the [place] FDA. When there are no FDA-approved or cleared tests available, and other criteria are met, FDA can make tests available under an emergency access mechanism called an Emergency Use Authorization (EUA). The EUA for this test is supported by the [place] of Health and Human Service's (HHS's) declaration that circumstances exist to justify the emergency use of in vitro diagnostics for the detection and/or diagnosis of the virus that causes COVID- 19. This EUA will remain in effect (meaning [...] of clinical signs and symptoms consistent with SARS-CoV-2.Performed By: #### INFLUAB #### [facility] [address] [place] [address] Dr. Venkat SloanINFLUENZA A AND B AGon [id number] BELOWKettering HealthComment on above:Result Comment: Negative for Flu A protein angiten. Infection due to Flu A cannot be ruled out. FluA angiten in the sample may be below the detection limit of the test.Performed By: #### PREGQNT #### [facility] [address] [place] [address] Dr. Venkat SloanINFLUBNEGHSUniversity Hospitals Portage Medical CenterComment on above: Result Comment: Negative for Flu B protein antigen. Infection due to Flu B cannot be ruled out. FluB antigen in the sample may be below the detection limit of the test.Performed By: #### PREGQNT #### [facility] [address] [place] [address] Dr. Venkat Mixon AGNegativeNormalNEGATIVE SEE COMMENTThe [facility] CenterComment on above:Performed By: #### PREGQNT #### [facility] [address] [place] [address] Dr. Venkat Burton AGNegativeNormalNEGATIVE SEE COMMENTThe [facility] CenterComment on above:Performed By: #### PREGQNT #### [facility] [address] [place] [address] Dr. Venkat SloanINTERNAL CONTROLSWithin Normal LimitsNormalWithin Normal Limits The [facility] CenterComment on above:Performed By: #### PREGQNT #### [facility] [address] [place] [address] Dr. Venkat Diehl SERUMon 33-33-0697Qkeoranaqenfayifbxdqqn (DHEA)82 ng/dL Dyuxxk90-143GtyVan Wert County HospitalComment on above:Result Comment: Age 1 - 5 years 0 - 67 6 - 7 years 0 - 110 8 - 10 years 0 - 185 11 - 12 years 0 - 201 13 - 14 years 0 - 318 15 - 16 years 39 - 481 17 - 19 years 40 - 491 >19 years 31 - 701Performed By: #### TSH #### [facility] [address] [place] [address] Dr. Venkat Diehl-SULFATEon 58-45-0538MGBD-Jvtnzew33.0 ug/dLCritically low 84.8-378.0The [facility] CenterComment on above:Performed By: #### RF #### [facility] [address] [place] [address] Dr. Venkat Fuentes 70-90-0880GEX1.2 mIU/mLNormalThe [facility] CenterComment on above:Result Comment: Adult Female: Follicular phase 3.5 - 12.5 Ovulation phase 4.7 - 21.5 Luteal phase 1.7 - 7.7 Postmenopausal 25.8 - 134.8Performed By: #### LBCFSH #### [facility] [address] [place] [address] Dr. Venkat SloanLUTEINIZING HORMONE (LH)on 38-39-7043JK7.1 mIU/mLNormalVan Wert County HospitalComment on above:Result Comment: Adult Female: Follicular phase 2.4 - 12.6 Ovulation phase 14.0 - 95.6 Luteal phase 1.0 - 11.4 Postmenopausal 7.7 - 58.5Performed By: #### INFLUAB #### [facility] [address] [place] [address] Dr. Venkat SloanPROLACTINon 89-75-3203Gutoinejs6.0 ng/mLNormal4.8-23.3The [facility] CenterComment on above:Performed By: #### PROLAC #### [facility] [address] [place] [address] Dr. Venkat SloanCBC AUTO DIFFon 37-67-2402MQJL #0.0 103/ulNormal0.0-0.1Van [facility] County HospitalComment on above:Performed By: #### TSH #### [facility] [address] [place] [address] Dr. Venkat SloanBasophils/100 WBC (Bld)0.4 %Normal0.2-2.0[facility] Comment on above:Performed By: #### TSH #### [facility] [address] [place] [address] Dr. Venkat Willson #0.1 103/ulNormal0.0-0.7The [facility] CenterComment on above: Performed By: #### TSH #### [facility] [address] [place] [address] Dr. Venkat Lewosinophils/100 WBC (Bld)1.2 %Normal0.9-7.0The [facility] Comment on above:Performed By: #### TSH #### [facility] [address] [place] [address] Dr. Venkat Lewrythrocyte distribution width (RBC) [Ratio]12.7 %Nchgoq52.0-15.0 The [facility] HospitalComment on above:Performed By: #### TSH #### [facility] [address] [place] [address] Dr. Venkat SloanHematocrit (Bld) [Volume fraction]41.1 %Tbltgm54.0-48.0The [facility] CenterComment on above:Performed By: #### TSH #### [facility] [address] [place] [address] Dr. Venkat SloanHemoglobin (Bld) [Mass/Vol]13.1 g/dASmkuvj94.0-16.0The [facility] CenterComment on above:Performed By: #### TSH #### [facility] [address] [place] [address] Dr. Venkat SloanIG #0.03 10e3/ulNormal0.00-0.03The [facility] CenterComment on above:Performed By: #### TSH #### [facility] [address] [place] [address] Dr. Venkat Monson %0.3 %Normal0.0-0.5The [facility] CenterComment on above: Performed By: #### TSH #### [facility] [address] [place] [address] Dr. Venkat Urban #1.6 103/ulNormal1.2-3.8The [facility] CenterComment on above:Performed By: #### TSH #### [facility] [address] [place] [address] Dr. Venkat Plazahocytes/100 WBC (Bld)15.0 %Critically low20.5-60.0The [facility] CenterComment on above:Performed By: #### TSH #### [facility] [address] [place] [address] Dr. Venkat SantosUAL DIFF REQNONormalThe [facility] CenterComment on above: Performed By: #### TSH #### [facility] [address] [place] [address] Dr. Venkat Peng (RBC) [Entitic mass]28.5 nyPxamyv55.7-34.0The [facility] CenterComment on above:Performed By: #### TSH #### [facility] [address] [place] [address] Dr. Venkat Kearns (RBC) [Mass/Vol]31.9 g/fKXxppqj77.9-35.2The [facility] CenterComment on above:Performed By: #### TSH #### [facility] [address] [place] [address] Dr. Venkat Brennan (RBC) [Entitic vol]89.3 oJRdbdvc59.0-99.0The [facility] CenterComment on above:Performed By: #### TSH #### [facility] [address] [place] [address] Dr. Venkat Marte #0.9 103/ulCritically high0.3-0.8The [facility] Comment on above:Performed By: #### TSH #### [facility] [address] [place] [address] Dr. Venkat Desaiocytes/100 WBC (Bld)8.8 %Normal1.7-12.0[facility] Comment on above:Performed By: #### TSH #### [facility] [address] [place] [address] Dr. Venkat Lopez #7.9 103/ulCritically high1.4-6.5The [facility] Comment on above:Performed By: #### TSH #### [facility] [address] [place] [address] Dr. Venkat Zhengutrophils/100 WBC (Bld)74.3 %Ttuweg34.0-75.0The [facility] CenterComment on above:Performed By: #### TSH #### [facility] [address] [place] [address] Dr. Venkat Robles mean volume (Bld) [Entitic vol]9.2 fLCritically low 9.5-13.5The [facility] CenterComment on above:Performed By: #### TSH #### [facility] [address] [place] [address] Dr. Venkat SloanPLT300 103/hyQmzwxd119-767Ebl [facility] on above: Performed By: #### TSH #### [facility] [address] [place] [address] Dr. Venkat SloanRBC4.60 106/ulNormal4.20-5.40The [facility] CenterComrehabilitation institute [facility] [place] on above:Performed By: #### TSH #### [facility] [address] [address] [address] Venkat SloanWBC10.7 103/ulNormal4.0-11.0The [facility] on above:Performed By: #### TSH #### [facility] [address] [place] [address] Dr. Venkat SloanGLYCOHEMOGLOBIN A1Con 40-31-5412SUW RECOMMENDATIONSEE BELOWNormal The [facility] CenterComrehabilitation institute [facility] [place] on above:Result Comment: ADA RECOMMENDED LIMIT 4.0 - 6.0 ADA THERAPEUTIC TARGET < 7.0 ACTION SUGGESTED > 7.0Performed By: #### PREGQNT #### [facility] [address] [place] [address] Dr. Venkat SloanGlucose [Mass/Vol]100 mg/dLNoOhioHealthComrehabilitation institute of [place] on above:Performed By: #### PREGQNT #### [facility] [address] [place] [address] Dr. Venkat SloanHbA1c (Bld) [Mass fraction]5.1 %Normal4.5-6.2The [facility] on above:Performed By: #### PREGQNT #### [facility] [address] [place] [address] Dr. Venkat Payne 13-25-7982YQA7.098 uIU/mLNormal0.358-3.740The [facility] on above:Performed By: #### TSH #### [facility] [address] [place] [address] Dr. Venkat SloanCovid-19 PCR (CVDTBH)on 85-59-4986BUAG-CoV-2 (COVID-19) RNA SHIRIN+probe Ql (Unsp spec)Not detectedNormalNOT DETECTEDVan Wert County Hospital Comment on above:Result Comment: This test is not yet approved or cleared by the [place] FDA. When there are no FDA-approved or cleared tests available, and other criteria are met, FDA can make tests available under an emergency access mechanism called an Emergency Use Authorization (EUA). The EUA for this test is supported by the [place] of Health and Human Service's (HHS's) declaration that circumstances exist to justify the emergency use of in vitro diagnostics for the detection and/or diagnosis of the virus that causes COVID- 19. This EUA will remain in effect (meaning [...] of clinical signs and symptoms consistent with SARS-CoV-2.Performed By: #### INFLUAB #### [facility] [address] [place] [address] Dr. Venkat SloanPRERj QUANT HCGon [id number] QUANT<1NormalVan Wert County Hospital Comment on above:Performed By: #### PREGQNT #### [facility] [address] [place] [address] Dr. Venkat Madrid [facility] CenterComment on above: Result Comment: 5-50 0.2-1 WEEK 50-500 1-2 WEEKS 100-5,000 2-3 WEEKS 500-10,000 3-4 WEEKS 1,000-50,000 4-5 WEEKS 10,000-100,000 5-6 WEEKS 15,000-200,000 6-8 WEEKS 10,000-100,000 2-3 MONTHSPerformed By: #### PREGQNT #### [facility] [address] [place] [address] Dr. Venkat Madrid-BETA SUBUNIT QUANTon 90-85-2189mLT,Beta Subunit,Qnt,Serum<1 NormalVan Wert County HospitalComment on above:Result Comment: Female (Non- ) 0 - 5 (Postmenopausal) 0 - 8 . Female () Weeks of Gestation 3 6 - 71 4 10 - 750 5 054 - 7455 6 757 - 29211 7 1524 -652472 8 06683 -836104 9 62755 -662112 10 62629 -827647 12 90034 -786792 14 41496 - 24336 15 15462 - 80619 16 8410 - 16321 17 3540 - 84732 18 7867 - 74561 Aj ECLIA methodologyPerformed By: #### TSH #### [facility] [address] [place] [address] Dr. Venkat Marina by IFAon 09-81-0572Ummvunqglvd Antibodies, IFANegativeNormal The [facility] CenterComment on above:Result Comment: Negative <1:80 Borderline 1:80 Positive >1:80 ICAP nomenclature: AC-0 For more information about Hep-2 cell patterns use ANApatterns.org, the official website for the International Consensus on Antinuclear Antibody (BRETT) Patterns (ICAP).Performed By: #### ANAIFA #### [facility] [address] [place] [address] Dr. Venkat SloanINSULINon 19-00-7109Swxjpox57.1 uIU/mLNormal2.6-24.9The [facility] CenterComment on above:Performed By: #### TSH #### [facility] [address] [place] [address] Dr. Venkat SloanANTISTREPTOLYSIN O AB (ASO)on 98-49-8709Zdfojbgoltvmyrrq O Ab <20.1Eiwczc4.0-200.0The [facility] CenterComment on above:Performed By: #### PREGQNT #### [facility] [address] [place] [address] Dr. Venkat SloanRHEUMATOID FACTORon 33-89-4077GW Latex Turbid.<10.0Normal<14.0The [facility] CenterComment on above:Performed By: #### RF #### [facility] [address] [place] [address] DrGeetha Combs AUTO DIFFon 34-65-4795GJPG #0.0 103/ulNormal0.0-0.1The [facility] CenterComment on above:Performed By: #### TSH #### [facility] [address] [place] [address] Dr. Venkat SloanBasophils/100 WBC (Bld)0.3 %Normal0.2-2.0The [facility] Comment on above:Performed By: #### TSH #### [facility] [address] [place] [address] Dr. Venkat Willson #0.1 103/ulNormal0.0-0.7The [facility] CenterComment on above: Performed By: #### TSH #### [facility] [address] [place] [address] Dr. Venkat Lewosinophils/100 WBC (Bld)1.8 %Normal0.9-7.0The [facility] Comment on above:Performed By: #### TSH #### [facility] [address] [place] [address] Dr. Venkat Lewrythrocyte distribution width (RBC) [Ratio]12.9 %Jkjukg46.0-15.0 The [facility] CenterComment on above:Performed By: #### TSH #### [facility] [address] [place] [address] Dr. Venkat SloanHematocrit (Bld) [Volume fraction]39.8 %Dfofjw69.0-48.0The [facility] CenterComment on above:Performed By: #### TSH #### [facility] [address] [place] [address] Dr. Venkat SloanHemoglobin (Bld) [Mass/Vol]12.7 g/xEPduqso61.0-16.0The [facility] CenterComment on above:Performed By: #### TSH #### [facility] [address] [place] [address] Dr. Venkat Monson #0.02 10e3/ulNormal0.00-0.03The [facility] CenterComment on above:Performed By: #### TSH #### [facility] [address] [address] [address] Venkat Monson %0.3 %Normal0.0-0.5The [facility] on above: Performed By: #### TSH #### [facility] [address] [place] [address] Dr. Venkat PerezBradly #1.5 103/ulNormal1.2-3.8The [facility] CenterComment on above:Performed By: #### TSH #### [facility] [address] [place] [address] Dr. Venkat Plazahocytes/100 WBC (Bld)21.5 %Rifcmw67.5-60.0The [facility] on above:Performed By: #### TSH #### [facility] [address] [place] [address] Dr. Venkat SantosUAL DIFF REQNONormalThe [facility] CenterComment on above: Performed By: #### TSH #### [facility] [address] [place] [address] Dr. Venkat Kearns (RBC) [Entitic mass]28.5 azEgkzrw78.7-34.0The [facility] on above:Performed By: #### TSH #### [facility] [address] [place] [address] Dr. Venkat Kearns (RBC) [Mass/Vol]31.9 g/bGHvrzbx65.9-35.2The [facility] on above:Performed By: #### TSH #### [facility] [address] [place] [address] Dr. Venkat Kearns (RBC) [Entitic vol]89.2 uXEhwrpk76.0-99.0The [facility] on above:Performed By: #### TSH #### [facility] [address] [place] [address] Dr. Venkat Marte #0.5 103/ulNormal0.3-0.8The [facility] CenterComment on above:Performed By: #### TSH #### [facility] [address] [place] [address] Dr. Venkat Desaiocytes/100 WBC (Bld)7.6 %Normal1.7-12.0The [facility] Comment on above:Performed By: #### TSH #### [facility] [address] [place] [address] Dr. Venkat ZhengUT #4.9 103/ulNormal1.4-6.5The [facility] CenterComment on above:Performed By: #### TSH #### [facility] [address] [place] [address] Dr. Venkat Zhengutrophils/100 WBC (Bld)68.5 %Uwubbe82.0-75.0The [facility] CenterComment on above:Performed By: #### TSH #### [facility] [address] [place] [address] Dr. Venkat Kellylet mean volume (Bld) [Entitic vol]8.8 fLCritically low 9.5-13.5The [facility] CenterComment on above:Performed By: #### TSH #### [facility] [address] [place] [address] Dr. Venkat SloanPLT297 103/iyHtyyqq930-499Mfb [facility] CenterComment on above: Performed By: #### TSH #### [facility] [address] [place] [address] Dr. Venkat SloanRBC4.46 106/ulNormal4.20-5.40The [facility] CenterComment on above:Performed By: #### TSH #### [facility] [address] [place] [address] Dr. Venkat SloanWBC7.1 103/ulNormal4.0-11.0The [facility] CenterComment on above: Performed By: #### TSH #### [facility] [address] [place] [address] Dr. Venkat Juan 44-84-8281GIS [Mass/Vol]mg/LNormal<=1.0The [facility] CenterComment on above:Performed By: #### PREGQNT #### [facility] [address] [address] [address] Venkat Cornejo THYROXINE INDEX T7on 67-68-1706QCV8.42Oxaxiz5.30-4.50The [facility] CenterComrehabilitation [facility] [place] on above:Performed By: #### PREGQNT #### [facility] [address] [place] [address] Dr. Venkat SloanT3U33.0 %Ftzbjs84.0-39.0The [facility] CenterComment on above: Performed By: #### PREGQNT #### [facility] [address] [place] [address] Dr. Venkat SloanT4 [Mass/Vol]8.20 ug/dLNormal4.80-13.90The [facility] Comment on above:Performed By: #### PREGQNT #### [facility] [address] [place] [address] Dr. Venkat SloanGLYCOHEMOGLOBIN A1Con 01-94-6300BFD RECOMMENDATIONSEE BELOWNormal The [facility] CenterComrehabilitation [facility] [place] on above:Result Comment: ADA RECOMMENDED LIMIT 4.0 - 6.0 ADA THERAPEUTIC TARGET < 7.0 ACTION SUGGESTED > 7.0Performed By: #### INFLUAB #### [facility] [address] [place] [address] Dr. Venkat SloanGlucose [Mass/Vol]105 mg/dLNormalThe [facility] on above:Performed By: #### INFLUAB #### [facility] [address] [place] [address] Dr. Venkat SloanHbA1c (Bld) [Mass fraction]5.3 %Normal4.5-6.2The [facility] CenterComment on above:Performed By: #### INFLUAB #### [facility] [address] [place] [address] Dr. Venkat Fernandes 85-60-2754Kkwr [Mass/Vol]49.0 ug/dLCritically low 50.0-170.0The [facility] CenterComrehabilitation [facility] [place] on above:Performed By: #### PREGQNT #### [facility] [address] [address] [address] Venkat SloanLIPID PROFILEon 82-82-0277ZUEC-HDL RATIO NORMSUniversity Hospitals Portage Medical CenterComment on above:Result Comment: 3.3 - 4.4 LOW RISK 4.4 - 7.1 AVERAGE RISK 7.1 - 11.0 MODERATE RISK >11.0 HIGH RISKPerformed By: #### PREGQNT #### [facility] [address] [address] [address] Venkat SloanCholesterol [Mass/Vol]197 mg/dLNormal<=200[facility] Comment on above:Performed By: #### PREGQNT #### [facility] [address] [place] [address] Dr. Venkat SloanCholesterol in HDL [Mass/Vol]64 mg/dLCritically tqfe65-39UsqVan Wert County HospitalComment on above:Performed By: #### PREGQNT #### [facility] [address] [address] [address] Venkat SloanCholesterol in LDL [Mass/Vol]123.4 mg/dLKettering HealthComment on above:Performed By: #### PREGQNT #### [facility] [address] [place] [address] Dr. Venkat Jensenesteremiliano.total/Cholesterol in HDL [Mass ratio]3.1 {ratio} NormalVan Wert County HospitalComment on above:Performed By: #### PREGQNT #### [facility] [address] [place] [address] Dr. Venkat Krueger NORMAL> or = 60 mg/dl - LOW CARDIOVASCULAR RISK <40 mg/dl - HIGH CARDIOVASCULAR RISKKettering HealthComment on above:Performed By: #### PREGQNT #### [facility] [address] [place] [address] Dr. Venkat SloanLDL CALC NORMALSEE [facility] HospitalComment on above:Result Comment: <100 mg/dl OPTIMAL 100 - 129 mg/dl NEAR OR ABOVE OPTIMAL 130 - 159 mg/dl BORDERLINE HIGH 160 - 189 mg/dl HIGH >190 mg/dl VERY HIGH Performed By: #### PREGQNT #### [facility] [address] [address] [address] Venkat SloanTriglyceride [Mass/Vol]48 mg/dLNormal<=150The [facility] Comment on above:Performed By: #### PREGQNT #### [facility] [address] [address] [address] Venkat SloanVLDL CALC9.6 mg/dLNormalThe [facility] CenterComment on above: Performed By: #### PREGQNT #### [facility] [address] [place] [address] Dr. Venkat SloanPROF 14(COMP METB)on 66-34-6052Eaecvln [Mass/Vol]4.0 g/dLNormal 3.4-5.0The [facility] CenterComment on above:Performed By: #### INFLUAB #### [facility] [address] [place] [address] Dr. Venkat SloanAlbumin/Globulin [Mass ratio]1.3 {ratio}NormalThe [facility] CenterComment on above:Performed By: #### INFLUAB #### [facility] [address] [place] [address] Dr. Venkat Hilliard [Catalytic activity/Vol]58 U/CDueppq88-659Dxy [facility] CenterComment on above:Performed By: #### INFLUAB #### [facility] [address] [place] [address] Dr. Venkat Da Silva [Catalytic activity/Vol]20 U/NLlqrti41-69Qaf [facility] CenterComment on above:Performed By: #### INFLUAB #### [facility] [address] [place] [address] Dr. Venkat Ruiz gap [Moles/Vol]10.4 mmol/LNormalThe [facility] Comment on above:Performed By: #### INFLUAB #### [facility] [address] [place] [address] Dr. Venkat SloanAST [Catalytic activity/Vol]11 U/LCritically nlo02-99Wdd [facility] HospitalComment on above:Performed By: #### INFLUAB #### [facility] [address] [address] [address] Venkat SloanBilirubin [Mass/Vol]0.8 mg/dLNormal0.2-1.0The [facility] Comment on above:Performed By: #### INFLUAB #### [facility] [address] [address] [address] Venkat SloanCalcium [Mass/Vol]9.0 mg/dLNormal8.5-10.1[facility] Comment on above:Performed By: #### INFLUAB #### [facility] [address] [place] [address] Dr. Venkat SloanChloride [Moles/Vol]106 mmol/APmzdkl89-455XlzVan [facility]ert [facility] Hospital Comment on above:Performed By: #### INFLUAB #### [facility] [address] [place] [address] Dr. Venkat SloanCO2 [Moles/Vol]27.0 mmol/VQivuyq87.0-32.0The [facility] Comment on above:Performed By: #### INFLUAB #### [facility] [address] [place] [address] Dr. Venkat SloanCreatinine [Mass/Vol]0.70 mg/dLNormal0.55-1.02The [facility] CenterComment on above:Performed By: #### INFLUAB #### [facility] [address] [place] [address] Dr. Venkat LewGFR-AF GHANAIAN>60Normal>=60The [facility] CenterComment on above:Performed By: #### INFLUAB #### [facility] [address] [place] [address] Dr. Venkat LewGFR-NON AF GHANAIAN>60Normal>=60The [facility] CenterComment on above:Performed By: #### INFLUAB #### [facility] [address] [place] [address] Dr. Venkat SloanGlobulin (S) [Mass/Vol]3.2 g/dLNormalThe [facility] CenterComment on above:Performed By: #### INFLUAB #### [facility] [address] [address] [address] Venkat SloanGlucose [Mass/Vol]92 mg/jNPfqdce51-613MzqVan [facility] Comment on above:Performed By: #### INFLUAB #### [facility] [address] [address] [address] Venkat SloanPotassium [Moles/Vol]4.4 mmol/LNormal3.5-5.1The [facility] Comment on above:Performed By: #### INFLUAB #### [facility] [address] [address] [address] Venkat SloanProtein [Mass/Vol]7.2 g/dLNormal6.4-8.2[facility] Comment on above:Performed By: #### INFLUAB #### [facility] [address] [address] [address] Venkat SloanSodium [Moles/Vol]139 mmol/UUgdngl599-830YqlVan Wert [facility] Hospital Comment on above:Performed By: #### INFLUAB #### [facility] [address] [address] [address] Venkat SloanUrea nitrogen [Mass/Vol]13.0 mg/dLNormal7.0-18.0[facility] HospitalComment on above:Performed By: #### INFLUAB #### [facility] [address] [address] [address] Venkat SloanUrea nitrogen/Creatinine [Mass ratio]18.6 mg/mgNoOhioHealthComment on above:Performed By: #### INFLUAB #### [facility] [address] [address] [address] Venkat ValdiviaHojanelle 17-51-6405RMM5.318 uIU/mLNormal0.358-3.740[facility] HospitalComment on above:Performed By: #### PREGQNT #### [facility] [address] [address] [address] Venkat SloanURIC ACID SERUMon 17-53-4320Qacfk [Mass/Vol]3.9 mg/dLNormal 2.6-6.0[facility] HospitalComment on above:Performed By: #### PREGQNT #### [facility] [address] [place], [place] [id number] Dr. Venkat SloanXR CSPINE MIN 4 VIEWSon 69-56-5724TP CSPINE MIN 4 VIEWS EXAMINATION: XR CSPINE MIN 4 VIEWS HISTORY: Cervical radiculopathy COMPARISON: No relevant comparison available. FINDINGS: BONES: Normal. No significant spondylosis, scoliosis, fracture, or visible bony lesion. DISC SPACES: Normal. No significant disc height narrowing, subluxation, or endplate abnormality. PARASPINOUS: Negative. No paraspinous abnormality is seen. OTHER: Negative. IMPRESSION: No acute disease. Electronically authenticated by: DUDLEY HERNÁNDEZ Date: 2021-09-24 21:[address] [place], [place] [address]PREG QUANT HCGon 86-16-8842PYI QUANT<1NormalThe [facility] CenterComment on above:Performed By: #### INFLUAB #### [facility] [address] [place] [address] Dr. Venkat SloanHCG RANGESEE BELOWKettering HealthComment on above: Result Comment: 5-50 0-1 WEEK 40-300 1-2 WEEKS 100-1,000 2-3 WEEKS 500-6,000 3-4 WEEKS 5,000-200,000 1-2 MONTHS 10,000-100,000 2-3 MONTHS 3,000-50,000 2ND TRIMESTER 1,000-50,000 3RD TRIMESTERPerformed By: #### INFLUAB #### [facility] [address] [place] [address] Dr. Venkat SloanUS PELVIS AND TRANSVAGon 29-91-4752ZJ PELVIS AND TRANSVAG EXAMINATION: US PELVIS AND [...] Electronically authenticated by: DUDLEY HERNÁNDEZ Date: 2021-08-17 07:01Kettering HealthCOVID Quick Testingon 20-29-4069QerpdyKqcpxkduVmtyd Wesabe Other Vital Signs Date TimeVital SignValuePerforming MkgdtpbfgHdjsyuuo95-87-4165 11:01-0400Body mass index (BMI) [Ratio]26.45 kg/m2Josi VILLARREAL Work Phone: [facility] CenterYqhkzfeimh64-87-5610 11:01-0400Body iormdr85.5 kg Josi VILLARREAL Work Phone: [facility] CenterGgwucvsddg62-14-0808 11:01-0400Diastolic blood raryrhww16 mm[Hg]Josi VILLARREAL Work Phone: [phone] CenterQtmfrkoxut90-50-2465 11:01-0400Systolic blood rxxyawmu903 mm[Hg]Josi VILLARREAL Work Phone: [phone] CenterKqdqfzwapk14-09-7467 14:22-0400Body mass index (BMI) [Ratio]27.55 kg/w7Uovkl Jennifer DO Work Phone: [facility]OP[facility] SystemsJhotgonczl41-96-5550 14:22-0400Body nispwh74.13 kgCorey Jennifer DO Work Phone: [facility] CenterPfbqqdnwqx48-83-5580 14:22-0400Diastolic blood xwslrumy59 mm[Hg]Ricardo Jennifer DO Work Phone: Project WBSPemiscot Memorial Health SystemsTmhyjawrwd56-50-9877 14:22-0400Systolic blood qafzlogd324 mm[Hg]Ricardo Jennifer DO Work Phone: [facility] CenterWydzgzoihr21-83-8861 10:41-0400Body mass index (BMI) [Ratio]27.93 kg/m2Josi Negroedel VILLARREAL Work Phone: [facility] CenterValvocnajm01-42-9423 10:41-0400Body cuoxot32.04 kgJosi Negroedel VILLARREAL Work Phone: [facility] CenterUtwcapacvp62-32-9724 10:41-0400Diastolic blood ibrllzpr96 mm[Hg]Josi Negroedel VILLARREAL Work Phone: [facility] CenterTidcdzkozf90-06-0832 10:41-0400Systolic blood mm[Hg]Josi Negroedel VILLARREAL Work Phone: [facility] CenterVrvganavof33-36-9794 12:02-0400Body mass index (BMI) [Ratio]27.78 kg/s0Qppkn Jennifer DO Work Phone: [facility] CenterLmlvinhhlw42-49-5904 12:02-0400Body wlxzya67.68 kgCorey Jennifer DO Work Phone: [facility] CenterMerwduciej17-74-0133 12:02-0400Diastolic blood tgtypdtq30 mm[Hg]Ricardo Jennifer DO Work Phone: [facility] CenterMkozhisizc83-22-7671 12:02-0400Systolic blood sucpdrhx017 mm[Hg]Ricardo Jennifer DO Work Phone: [facility] CenterGbxzwcxmiw97-86-5821 09:27-0500Body autgjb084.94 cmMet[facility]02-25-2024 09:27-0500Body mass index (BMI) [Ratio]30.8 kg/k2WeslwexoeMetrohealth Main Campus Medical Center02-25-2024 09:27-0500Body ntesdphynsa93.1 [degF][facility]02-25-2024 09:27-0500Body fqhfuh30.04 kgMetrohealth Main Campus [facility] Center02-25-2024 09:27-0500Heart rate 78 /[facility]02-25-2024 09:27-0500Respiratory rate16 /[facility]02-25-2024 09:27-8601GkX7% (BldA) [Mass fraction]98 %[facility]02-13-2024 15:14-0500Body mass index (BMI) [Ratio]30.04 kg/e4Gcfdt Jennifer DO Work Phone: [facility] CenterHmofanhomh81-04-2226 15:14-0500Body .12 kgCorey Jennifer DO Work Phone: [facility] CenterPhuhizeoom80-36-6234 15:14-0500Diastolic blood vkkssivl87 mm[Hg]Ricardo Jennifer DO Work Phone: [facility] CenterDqiwasbhwk13-49-4191 15:14-0500Systolic blood fttkoaja235 mm[Hg]Ricardo Jennifer DO Work Phone: [facility] Sozvamwsod66-23-7960 18:45-0400Body fhwhyy770.94 cmSjoe Martinez Other [employer] Other 11-02-2021 18:45-0400Body mass index (BMI) [Ratio] 28.34 kg/k8Uvexaaemgmarco Martinez Other [employer] Other 11-02-2021 18:45-0400Body rmqbonmferv56.4 [degF] Mohini Martinez Other [employer] Other 11-02-2021 18:45-0400Body gitigz96.04 kgStmarco Martinez Other [employer] Other 11-02-2021 18:45-0400Respiratory rate18 /minSjoe Martinez Other [employer] Other 11-02-2021 18:45-2194FiT6% (BldA) [Mass fraction]99 % Mohini Martinez Other Noib Wesabe Other 09-27-2021 11:45-0400Body .94 cmDavicata Freeman Other [facility] Wesabe Other 09-27-2021 11:45-0400Body mass index (BMI) [Ratio] 28.34 kg/f5Lnyvb Lydia Other [facility] Wesabe Other 09-27-2021 11:45-0400Body zuhwhy30.04 kgDavid Lydia Other [employer] Other Encounters Encounter DateEncounter TypeCare ProviderFacilityStart: 09-24-2024 End: 64-37-5872Zbadao Meaghan VILLARREAL Work Phone: [facility] BCP OBStart: 09-24-2024 End: 08-94-8055Hululb Meaghan VILLARREAL Work Phone: [facility] BCP OBStart: 09-24-2024 End: 78-29-5432btkifeqcgmJKN RAMEYNot AvailableStart: 09-24-2024 End: 41-45-4045Uwzzzc follow up visit related to original Marianela VILLARREAL Work Phone: noms BCP OBComment on above:Postoperative visit; S/P laparoscopy; Cystostomy status (HCC)Start: 09-13-2024 End: 33-31-1667Vleiejkrw Result EncounterCorey Jennifer DO Work Phone: noms External Department UnsolicitedStart: 09-13-2024 End: 23-76-1031Rjjyhpyxf Result EncounterCorey Jennifer DO Work Phone: noms External Department UnsolicitedStart: 09-13-2024 End: 52-04-8678tyekpmifidZvtxm FazioFacility:[facility] Start: 08-28-2024 End: 87-07-1200dtvtlicpayEXDJN FAZIONot AvailableStart: 08-28-2024 End: 48-28-0007Lgqiob outpatient visit 15 minutesCorey Jennifer DO Work Phone: [facility] BCP OBComment on above:Pre-op examination; Cyst of right ovary; Complex ovarian cyst; Pelvic painStart: 08-28-2024 End: 68-32-4155Lflcuigerfezg examination doneCorey Jennifer DO Work Phone: [facility] HealthcareStart: 08-27-2024 End: 68-64-1951Fqolhklhr Result EncounterAmy Genie VILLARREAL Work Phone: [facility] External Department UnsolicitedStart: 08-27-2024 End: 63-07-2287Rgmqpptts Result EncounterAmy Genie VILLARREAL Work Phone: [facility] External Department UnsolicitedStart: 08-21-2024 End: 24-29-2133Zzymii flowsheetAmy Genie PA Work Phone: [facility] BCP OBStart: 08-21-2024 End: 75-08-3012Xvpzhc flowsheetAmy London PA Work Phone: [facility] BCP OBStart: 08-21-2024 End: 59-24-4255Drveev outpatient visit 15 minutesAmy Genie VILLARREAL Work Phone: [facility] BCP OBComment on above:Cyst of right ovary; Complex ovarian cystStart: 08-21-2024 End: 30-95-5599wjhyweysrcWBF RAMEYNot AvailableStart: 08-15-2024 End: 78-52-1376urwnifctuhByjcthr Nabila MarkerC[facility] Work Phone: Start: 08-15-2024 End: 49-47-9978Dhreyhjx ReferredMelissa Marker DO Work Phone: [facility]-LAB Path Spec [facility] HospStart: 07-19-2024 End: 29-06-8111Nodani outpatient visit 15 minutesCorey Jennifer DO Work Phone: [facility] BCP OBComment on above:Irregular periods/menstrual cycles; Pelvic pain in femaleStart: 07-19-2024 End: 71-50-2179ndekyhqreeRMLBA FAZIONot AvailableStart: 06-28-2024 End: 08-58-3995Yynwgcdwk Result EncounterCorey Jennifer DO Work Phone: NOQJ External Department UnsolicitedStart: 06-28-2024 End: 21-18-6046Lntprnilm Result EncounterCorey Jennifer DO Work Phone: [facility] External Department UnsolicitedStart: 03-01-2024 End: 21-71-0388Gulwsj flowsheetCorey Jennifer DO Work Phone: [facility] BCP OBStart: 03-01-2024 End: 51-93-7865Ybtgcs flowsheetCorey Jennifer DO Work Phone: noms BCP OBStart: 03-01-2024 End: 32-67-9008Yseoro outpatient visit 15 minutesCorey Jennifer DO Work Phone: [facility] BCP OBComment on above:Abnormal vaginal bleeding; PCOS (polycystic ovarian syndrome)Start: 03-01-2024 End: 74-74-7716txxfpkjqhrCFJZQ FAZIONot AvailableStart: 09-26-2023 End: 15-89-3822lnfldcitifTBHYJ FAZIONot AvailableStart: 05-22-2023 End: 94-79-7155fmefapsjmwKblkvtfrdCommunity [facility] Hospital Work Phone: Start: 05-22-2023 End: 40-44-6364Itkpbay encounter procedureCape Fear/[facility] Work Phone: Start: 05-10-2023 End: 27-77-4647Sahdirim flow sheetCorey Jennifer DO Work Phone: noMS BCP OBComment on above:Second trimester ; Diabetes mellitus screeningStart: 55-95-3906Zlclyrrbt for other preprocedural examinationDR RICARDO RODRIGUEZ .[facility]: 07-08-2022 End: 46-41-6855hcmacvkhseFV RICARDO JENNIFER .Facility:L6Lhcyu: 06-30-2022 End: 95-00-9733wpjpwjarpeAN RICARDO JENNIFER .Facility:B5Ygwek: 06-30-2022 End: 29-50-1268Vbdkmrsei for other preprocedural examinationDR RICARDO JENNIFER . Facility:T9Bojyd: 06-21-2022 End: 39-16-0587xcoxwfifwjTN RICARDO JENNIFER .Facility:Y5Xcchl: 05-31-2022 End: 34-07-3591ppclittkvvRE IRON HOY .Facility:N4Piaeq: 05-20-2022 End: 31-93-1391jdlimlfozeZN RICARDO JENNIFER .Facility:I8Yydal: 05-04-2022 End: 17-36-9969uhybellmjiKO RICARDO JENNIFER .Facility:R6Jrtil: 05-04-2022 End: 35-04-4441tdpsdzvdgyRP IRON HOY .Facility:A1Wvmxd: 04-23-2022 End: 82-73-4783efkuzymdajYP RICARDO JENNIFER .Facility:G2Ogupw: 04-02-2022 End: 07-13-3313wpserusiosWK IRON HOY .Facility:R9Tjoco: 04-01-2022 End: 77-63-1745hgiqqqcsfqNI IRON HOY .Facility:N5Iorkw: 03-24-2022 End: 69-77-5959lpfidqqqrmLPOBQY CRAMERFacility:Y7Xcqto: 03-15-2022 End: 21-92-4127agcrrwqixsAQ IRON HOY .Facility:H7Vewvn: 03-12-2022 End: 02-70-2581zysmorivvyER IRON HOY .Facility:Y5Cvdrp: 02-17-2022 End: 98-29-5738toamtnkvvwSL RICARDO JENNIFER .Facility:G5Ecyge: 02-10-2022 End: 64-98-3741jhvkdszcjdNV IRON HOY .Facility:N5Uycsk: 02-03-2022 End: 91-37-0129znrqqgxnayVH IRON HOY .Facility:G3Vbmpr: 04-68-2657oclffablcs DR RICARDO JENNIFER .Facility:D6Jdlxs: 01-13-2022 End: 29-33-5413bbtsvtksgwJK RICARDO JENNIFER .Facility:H7Dqnix: 01-12-2022 End: 29-86-6426zjsoibpvzaIW IRON HOY .Facility:Q1Wzsjm: 12-24-2021 End: 99-13-6025istgqciewfJA IRON HOY .Facility:C6Fwwrc: 11-21-2021 End: 06-26-7368zdhardpfezNW RICARDO JENNIFER .Facility:R3Icpdo: 79-60-1344Rznmziots for general adult medical examination without abnormal findingsDR IRON HOY . [facility] End: 03-89-5861hdofdkzqudLU IRON HOY .Facility:H8Ehnzw: 09-26-2021 End: 80-29-3857Aemvpkiwi for general adult medical examination without abnormal findingsDR IRON HOY .Facility:P2Pxlll: 09-24-2021 End: 06-09-4189cineqrbinpOI IRON HOY .Facility:R3Mztqp: 08-17-2021 End: 60-14-1642jkhsvgjheoUV RICARDO JENNIFRE .Facility:U6Fbgly: 08-15-2021 End: 75-68-5629gjqqtzeljiVY RICARDO JENNIFER .Facility:S2Xdgvv: 01-27-2021 End: 79-14-1406jddqzesvyyDslrxinan Breault Other Shiloh Wesabe Other Start: 16-40-8387Ayzkrq outpatient visit 15 minutes Mohini MartinezFPRj Urgent Care ClydeStart: 76-94-0236Jvdmxw outpatient new 45 minutesDavid HykesFPG Gastroenterology Procedures DateProcedureProcedure DetailPerforming ClinicianStart: 30-73-1534IZJ CBC WITH AUTO DIFFCorey Jennifer DO Work Phone: Start: 72-61-1015SPC Vanessa VILLARREAL Work Phone: Start: 18-51-3599AFV CBC WITH AUTO DIFFCorey Jennifer DO Work Phone: Start: 76-47-7903QBE COVID/FLU/RSVStart: 05-10-2023 Urnls dip stick/tablet rgnt non-auto w/o micrscpCorey [employer] Phone: Start: 60-30-1931Zxemqkfhhsj observation [Identifier] in Cervix by Cyto stainCorey JenniferRival IQ Work Phone: Plan of Treatment DateCare ActivityDetailAuthorStart: 34-53-9107Dazosjgec for malignant neoplasm of cervixNOMS HealthcareStart: 59-26-0095Ntewzyahb vaccinationInfluenza Vaccine (Season Ended)NOM HealthcareStart: 09-24-2024 End: 92-96-5861Utjvweu encounter rwifslebl29/30/2025 10:50 AM EDT Office Visit [facility] OB [address] [place] [phone] Josi Prescott PA [address] [place] [address] [facility]Start: 09-24-2024 End: 37-26-4156Hzahzwk encounter vairznnqs42/30/2025 8:50 AM EDT Consult [facility] OB [address] [place] [address] Ricardo Rodriguez, DO [address] [place] [address] [facility] BCP OBStart: 08-28-2024 End: 90-96-2657Qaiucss encounter zpafobeuo61/03/2025 2:00 PM EDT Consult [facility] OB [address] [place] [address] Ricardo Rodriguez, DO [address] [place] [address] [facility] OBStart: 08-21-2024 End: 34-91-2649SQW tumor markerAFP tumor marker Lab Routine Complex ovarian cyst Expected: 08/21/2024 (Approximate), Expires: 08/21/2025[facility] HealthcareComment on above:Expected: 08/21/2024 (Approximate), Expires: 08/21/2025Start: 08-21-2024 End: 84-25-4478KK 125CA 125 Lab Routine Complex ovarian cyst Expected: 08/21/2024 (Approximate), Expires: 08/21/2025[facility] HealthcareComment on above: Expected: 08/21/2024 (Approximate), Expires: 08/21/2025Start: 08-21-2024 End: 66-87-4266Mrqhbpxwuqzvtsvi Ag [Mass/volume] in Serum or PlasmaCEA Lab Routine Complex ovarian cyst Expected: 08/21/2024 (Approximate), Expires: 08/21/2025[facility] HealthcareComment on above:Expected: 08/21/2024 (Approximate), Expires: 08/21/2025Start: 08-21-2024 End: 29-96-4642PAL, tumor markerHCG, tumor marker Lab Routine Complex ovarian cyst Expected: 08/21/2024 (Approximate), Expires: 08/21/2025[facility] Healthcare Comment on above:Expected: 08/21/2024 (Approximate), Expires: 08/21/2025Start: 08-21-2024 End: 83-03-9064Uzepdzl dehydrogenase, isoenzymesLactate dehydrogenase, isoenzymes Lab Routine Complex ovarian cyst Expected: 08/21/2024 (Approximate), Expires: 08/21/2025[facility] Healthcare Work Phone: comment on above:Expected: 08/21/2024 (Approximate), Expires: 08/21/2025Start: 03-37-1293Sqcss cultureWood County Hospitaltart: 05-85-5354Uchiehsz identified in Urine by CultureUrine Culture [facility] Hospitaltart: 05-24-2024 End: 45-77-4790Zxxahqs encounter xljeqhhil38/27/2025 8:30 AM EST Office Visit [facility] [address] [place] [address] Ricardo Rodriguez, [address] [place] [address] [facility] BCP OBStart: 03-01-2024 End: 86-26-5192RRM W Auto Differential panel - BloodCBC and differential Lab Routine Abnormal vaginal bleeding Expected: 03/01/2024 (Approximate), Expires: 03/01/2025[facility] HealthcareComment on above:Expected: 03/01/2024 (Approximate), Expires: 03/01/2025Start: 03-01-2024 End: 64-21-1015ZIFRWKWC Lab Routine Abnormal vaginal bleeding Expected: 03/01/2024, Expires: 03/01/2025[facility] HealthcareComment on above:Expected: 03/01/2024, Expires: 03/01/2025Start: 03-01-2024 End: 76-02-7144HRYW-sulfateDHEA-sulfate Lab Routine Abnormal vaginal bleeding Expected: 03/01/2024 (Approximate), Expires: 03/01/2025[facility] HealthcareComment on above:Expected: 03/01/2024 (Approximate), Expires: 03/01/2025Start: 03-01-2024 End: 34-29-2991Hjgwvtqc stimulating hormoneFollicle stimulating hormone Lab Routine Abnormal vaginal bleeding Expected: 03/01/2024 (Approximate), Expires: 03/01/2025[place] HealthcareComment on above:Expected: 03/01/2024 (Approximate), Expires: 03/01/2025Start: 03-01-2024 End: 78-49-6107sLA, quantitative, pregnancyhCG, quantitative, Lab Routine Abnormal vaginal bleeding Expected: 03/01/2024 (Approximate), Expires: 03/01/2025[facility] Work Phone: comment on above:Expected: 03/01/2024 (Approximate), Expires: 03/01/2025Start: 03-01-2024 End: 49-03-6688Wzpxzmswmh A1c/Hemoglobin.total in BloodHemoglobin A1c Lab Routine Abnormal vaginal bleeding Expected: 03/01/2024 (Approximate), Expires: 03/01/2025[facility] HealthcareComment on above:Expected: 03/01/2024 (Approximate), Expires: 03/01/2025Start: 03-01-2024 End: 84-78-9993Hbtqxzouico hormoneLuteinizing hormone Lab Routine Abnormal vaginal bleeding Expected: 03/01/2024 (Approximate), Expires: 03/01/2025[facility] HealthcareComment on above:Expected: 03/01/2024 (Approximate), Expires: 03/01/2025Start: 03-01-2024 End: 10-52-8941Xeiomlbckqe [Units/volume] in Serum or PlasmaTSH Lab Routine Abnormal vaginal bleeding Expected: 03/01/2024 (Approximate), Expires: 03/01/2025[facility] HealthcareComment on above:Expected: 03/01/2024 (Approximate), Expires: 03/01/2025Start: 03-01-2024 End: 59-30-0585Eomogcgrk (T4) free [Mass/volume] in Serum or PlasmaT4, free Lab Routine Abnormal vaginal bleeding Expected: 03/01/2024 (Approximate), Expires: 03/01/2025[facility] HealthcareComment on above:Expected: 03/01/2024 (Approximate), Expires: 03/01/2025Start: 03-01-2024 End: 26-05-9064OX for pregnancyUS PELVIS-TRANSVAG IF INDICATED Imaging Routine Abnormal vaginal bleeding Expected: 03/01/2024 (Approximate), Expires: 03/01/2025[facility] HealthcareComment on above:Expected: 03/01/2024 (Approximate), Expires: 03/01/2025Start: 03-01-2024 End: 06-09-2575Mcicvag encounter vigxokuwf46/05/2024 11:10 AM EST Office Visit [facility] [address] [place] [phone] Ricardo Rodriguez, DO [address] [place] [address] [facility]rivedLIFEPOINT [facility] BCP OBComment on above:ArrivedStart: 32-35-0533Iuqgpnuxv for malignant neoplasm of cervixHPV/CotestNOMS Healthcare Start: 35-07-3520Xxcbnvjdp vaccinationInfluenza Vaccine (#1)[facility] Start: 05-26-2023 End: 16-58-6449Pnghdeh encounter aevnlattf69/29/2024 9:50 AM EST Routine [facility] OB [address] [place] [phone] Ricardo Rodriguez, DO [address] [place] [address] [facility] BCP OBStart: 05-10-2023 End: 94-83-9558ULN panel - Blood by Automated countCBC Lab Routine Diabetes mellitus screening Expected: 05/10/2023 (Approximate), Expires: 05/10/2024[facility] Work Phone: comment on above:Expected: 05/10/2023 (Approximate), Expires: 05/10/2024Start: 05-10-2023 End: 36-04-3290Enrehwepxbs of glucose 1 hour after glucose challenge for glucose tolerance testGlucose tolerance, 1 hour Lab Routine Diabetes mellitus screening Expected: 05/10/2023 (Approximate), Expires: 05/10/2024[facility] HealthcareComment on above:Expected: 05/10/2023 (Approximate), Expires: 05/10/2024Start: 92-78-0918Wsmioqoag vaccinationInfluenza Vaccine (#1)[facility] Immunizations Immunization DateImmunizationNotesCare NsmnayxmCrqsbaqs39-15-4916puadziuap virus vaccine, unspecified formulationCorey Jennifer DO Work Phone: [facility] Healthcare Payers DatePayer CategoryPayerPolicy [id number] [place] Blue [id number] UnknownBCBS BCBS [id number] 2022-Present [phone] [facility] [address] [place] [address]397.2.840.101739.1.13.693.2.7.3.533469.29862-75-5409Qzhjhgf [id number] 2.16.840.1.639602.3.57[id number] 2.16.840.1.069136.3.57[id number] 2.16.840.1.210485.3.579.2.[id number] 2.16.840.1.910773.3.579.2.16965-80-0475Fzueetr2430548 2.16.840.1.567876.3.579.2.60898-38-8177Arwbevy2736532 2.16.840.1.164998.3.57[id number] 2.16.840.1.690741.3.579.2.82132-90-6646Czscsyt3607252 2.16.840.1.503693.3.579.2.89620-47-9979Uleqfxo8436644 2.16.840.1.119611.3.579.2.19854-77-7319Bzfnsli1851431 2.16.840.1.066486.3.579.2.61891-34-3648Wawyfue6679930 2.16.840.1.610389.3.579.2.18959-81-7443Rlgycod8723807 2.16.840.1.275871.3.579.2.09116-13-4333Euaprsh3508036 2.16.840.1.055647.3.579.2.17535-67-5713Cdcfnvy7238017 2.16.840.1.527119.3.579.2.23857-50-6774Ofqhqsx7923149 2.16.840.1.650011.3.579.2.03191-78-8542Jhgzfix5691402 2.16.840.1.825669.3.579.2.70312-00-0276Jcslehv1160397 2.16.840.1.750384.3.579.2.22523-85-2217Aujabfs5178131 2.16.840.1.184425.3.579.2.28344-83-4106Emwppjg7690289 2.16.840.1.785000.3.579.2.47054-09-5414Klsxtze0167773 2.16.840.1.162579.3.579.2.81201-04-1569Eixouqm3056010 2.16.840.1.827072.3.579.2.76497-21-6107Dpojknt7890663 2.16.840.1.804252.3.579.2.74292-25-6427Flyraif0275612 2.16.840.1.271092.3.579.2.89515-21-4985Mcntgia2324267 2.16.840.1.964276.3.579.2.47834-97-2328Hwfnbus7062385 2.16.840.1.717847.3.579.2.41689-34-4365Xdjaucs41918420 2.16.840.1.060267.3.579.2.485773-96-8452Lahotqx89242343 2.16.840.1.228525.3.579.2.915023-35-4304Nmtebae8455149 2.16.840.1.699731.3.579.2.441141-05-4816Vofqcvz3391726 2.16.840.1.356886.3.579.2.922431-82-5496Kzmoupm5144072 2.16.840.1.633823.3.579.2.266559-93-3209Igbhgvl8644671 2.16.840.1.564027.3.579.2.855471-70-1769HzpifdqV9Q806X5609953-87-3186Ucodhqk TE7895650Zoeyich104117890 2.160.1.047630.15OagwvmzGXK630523532765 8623u7q8-7m84-2o87-5k8i-907j3d77891uVnyaogdNpanwd /FRs9d617s13733 qta75849-x890-2sfe-h836-ppj75r9b2m90Isujahp35262226 2.840.1.191290.3.579.2.981Juqjigq77964739 2.0.1.034485.3.579.2.531 Social History DateTypeDetailFacilityUnknown if ever smokedShiloh Wesabe Other Start: 01-28-2023 End: 36-74-5524Nxo Assigned At [facility] Wesabe Other Start: 01-28-2023 End: 17-61-4847Zcmysnu smoking status NHISNever smoked tobaccoNOMS Healthcare Start: 05-10-2023 End: 27-36-1026Makjqyy intakeCurrent drinker of alcohol (finding)[facility] Start: 01-28-2023 End: 89-86-5048Jqvrroi of Social functionNOMS HealthcareHow often to you have a drink containing alcohol?2-4 times a monthNOMS HealthcareHow many standard drinks containing alcohol do you have on a typical day?1 or 2NOMS HealthcareHow often do you have 6 or more drinks on 1 occasion?WeeklyNOWY HealthcareStart: 42-31-3156Tmsjspq Commentcaffeine: occasionalNOMS HealthcareStart: 11-26-2022 PregnancyNOWY HealthcareStart: 04-13-3395Cqr Assigned At BirthFemalMountain [facility] Hospital HealthcareStart: 81-65-0539Dqkqfx identityIdentifies as female gender (finding) [facility] HealthcareStart: 65-71-8881Hwxmas orientationHeterosexual (finding)[facility] HealthcareStart: 81-86-1091GjpXhfide (finding)[facility] Clinical Notes 12-22-2020 to 09-24-2024 Note Date & IpnbXxstBpznfwlu08-45-4689 History of Present illness Narrative* CHERELLE Abdi - 09/24/2024 10:50 AM EDT Reason for Appointment: Patient ID: Kasandra Macias is a 28 y.o. female who presents for Post-op Visit (Patient present today for a post operative visit. Pt had a Dx Lap Left ovarian cytootomy on 09/13/2024.) Patient presents today for 1 Week Post Op Follow Up appointment.. MEDICATIONS No current outpatient medications ALLERGIES No Known Allergies PROBLEMS Active Ambulatory Problems Diagnosis Date Noted Anemia 05/26/2023 Hypoglycemia 05/26/2023 JOSESITO (amniotic fluid index) increased ([facility] 05/26/2023 Third trimester ([facility]) 06/13/2023 32 weeks gestation of ([facility]) 06/30/2023 Resolved Ambulatory Problems Diagnosis Date Noted No Resolved Ambulatory Problems Past Medical History: Diagnosis Date Anxiety Cyst of right ovary Depression Endometriosis History of miscarriage Hormone imbalance IBS (irritable bowel syndrome) Pain of ovary HISTORY PAST MEDICAL HISTORY SOCIAL HISTORY Past Medical History: Diagnosis Date Anxiety Cyst of right ovary Depression Endometriosis History of miscarriage Hormone imbalance IBS [...] DIAGNOSTIC / BIOPSY / ASPIRATION / LYSIS LAPAROSCOPY DIAGNOSTIC / BIOPSY / ASPIRATION / LYSIS Left 09/13/2024 left ovarian cytotomy TONSILLECTOMY XR HYSTEROSALPINGOGRAM Bilateral REVIEW OF SYSTEMS Review of Systems: Review of Systems OBJECTIVE Objective: OBGyn Exam Vitals: Estimated body mass index is 26.45 kg/m as calculated from the following: Height as of 23: 5' 1 . Weight as of this encounter: 140 lb. BP: 120/72 No LMP recorded. ASSESSMENT & PLAN ICD-10-CM 1. Postoperative visit Z48.89 2. S/P laparoscopy Z98.890 3. Cystostomy status (HCC) Z93.50 Pt present today for a 1 week post operative Dx lap Left ovarian cytotomy. Pt states she is doing well w/no issues. pathology reviewed and restrictions lifted Documented by Alethea Reich MA on behalf of: CHERELLE Abdi documented in this encounterKansas City VA Medical CenterOfgoxbbnra59-40-7820 History of Present illness Narrative* Ricardo Rodriguez, - 08/28/2024 2:00 PM EDT Reason for Appointment: Patient ID: Kasandra Macias is a 28 y.o. female who presents for Pre-op Visit Patient presents today for Pre Op appointment. Patient is scheduled to undergo Diagnostic Laparoscopy, possible KAY, possible FOE, possible BSO on 09/13/[address] Rodriguez at [facility]. MEDICATIONS No current outpatient medications [...] note reviewed. Exam conducted with a manager business information present. Vitals: Estimated body mass index is [...] reviewed, and patient is to proceed to [facility] OR. Follow Up: Patient is to follow up between 1-2 weeks post operative to assess proper healing and recovery fromprocedure. Documented by Melissa Thornton LPN on behalf of: Ricardo Rodriguez DO documented in this encounterKansas City VA Medical CenterTyrltzunjv50-61-7111 History of Present illness Narrative* CHERELLE Abdi - 08/21/2024 10:20 AM EDT Reason for Appointment: Patient ID: Kasandra Macias [...] behalf of: CHERELLE Abdi documented in this encounterKansas City VA Medical CenterAdvxrprfmb80-61-4809 History of Present illness Narrative* Abigail Guzman LPN - 07/19/2024 11:40 AM EDT Reason for Appointment: Patient ID: Kasandra Macias [...] note reviewed. Exam conducted with a manager business information present. Vitals: Estimated body mass index is [...] for 1 month. Patient will reach out tooffice if she desires any further management and if Tyblume did not help reset cycles. Patient willalso ensure that she is scheduled for annual. Patient just had labs drawn and reviewed with patient. Patient given 3 samples of Tyblume Lot:[id number] Exp: 02/19 Documented by Abigail Guzman LPN on behalf of: Ricardo Rodriguez DO documented in this encounterKansas City VA Medical CenterNgsiwhsmcb61-43-2829 History of Present illness Narrative* Abigail Guzman LPN - 03/01/2024 11:10 AM EST Reason for Appointment: Patient ID: Kasandra Macias [...] note reviewed. Exam conducted with a manager business information present. Vitals: Estimated body mass index is [...] Patient will have labs drawn and ultrasound performed.Patient to RTC in 12 weeks for annual and review of labs. Documented by Abigail Guzman LPN on behalf of: Ricardo Rodriguez DO documented in this encounterKansas City VA Medical CenterAgshdmkoim81-70-1004 History of Present illness Narrative* eMlissa Thornton LPN - 05/10/2023 2:50 PM EST Reason for Appointment: Patient ID: Kasandra Macias is a 27 y.o. female who presents for Routine Visit Patient presents today for Return OB appointment. Current Medications: has a current medication list which includes the following prescription(s): bupropion xl, emgality,levofloxacin, magnesium oxide, metformin (osm), ondansetron, promethazine, and [...] note reviewed. Exam conducted with a manager business information present. Vitals: Estimated body mass index is [...] of: Ricardo Rodriguez DO documented in this encounterKansas City VA Medical CenterAnbvfckrkf75-88-5937 NoteOPERATIVE NOTE OPERATION DATE: 07/08/2022 PROCEDURE: Diagnostic laparoscopy with fulguration of ovarian endometrial implant. PREOPERATIVE DIAGNOSIS: Pelvic pain. POSTOPERATIVE DIAGNOSIS: Pelvic pain. ANESTHESIA: General. SURGEON: Ricardo Rodriguez D.O. GUEST SERVICES MANAGER: DEVIN Miles URINE OUTPUT: Yellow and [...] was taken to Recovery Room in stable condition.[facility] CenterPsniptxg52-84-8136 Evaluation note* Encounter Date Diagnosis Assessment Notes Treatment Notes Treatment Clinical Notes Nov, Irritable bowel synd makeda with both constipation and diarrhea (ICD- 10 - K58.2) LABS INDICATED ABOVE START TRIAL OF DICYCLOMINE 20 BID RTO 4 WEEKS [employer] Other Evaluation noteNorten-Gauge Other Evaluation note* Diagnosis Second trimester state, incidental Diabetes mellitus screening Screening for diabetes mellitus documented in this encounter [facility] HealthcareEvaluation noteNo assessment information availableTrumbull Memorial Hospital Work Phone: Evaluation note* Diagnosis Abnormal vaginal bleeding Other specified noninflammatory disorder of vagina PCOS (polycystic ovarian syndrome) Polycystic ovaries documented in this encounter [facility] HealthcareEvaluation note* Diagnosis Irregular periods/menstrual cycles Pelvic pain in female Unspecified symptom associated with female genital organs documented in this encounter [facility] HealthcareEvaluation note* Diagnosis Cyst of right ovary Other and unspecified ovarian cyst Complex ovarian cyst documented in this encounter [facility] HealthcareEvaluation note* Diagnosis Pre-op examination Cyst of right ovary Other and unspecified ovarian cyst Complex ovarian cyst Pelvic pain documented in this encounter [facility] HealthcareEvaluation note* Diagnosis Postoperative visit S/P laparoscopy Other postprocedural status Cystostomy status (HCC) documented in this encounter [facility]OMS HealthcareHistory general Narrative - Reported* Type Description Date Medical History anxiety/depression Medical HistoryIBSSurgical HistoryTONSILLECTOMY [employer] Other History general Narrative - ReportedNoDataVote Other Summary Purpose Family History No Family History Records Found Relationship Condition Age at Onset Recorded Date/T ricardo brother Unknown fatherDeceasedUnknownHypertensionUnknowngrandparentHypertensionUnknownDiabetes mellitusUnknowngrandparentDiabetes mellitusUnknownNot SpecifiedMalignant neoplasmUnknown Relationship Condition Age at Onset Recorded Date/T ricardo brother Unknown fatherDeceasedUnknownHypertensionUnknowngrandparentHypertensionUnknownDiabetes mellitusUnknowngrandparentDiabetes mellitusUnknownmotherMalignant neoplasm Unknown Advance Directives No Advanced Directives [...] FOR VISIT (unrecogniz ed section and content) ReasonCommentsRoutine VisitReasonCommentscontinuous vaginal bleeding ReasonCommentsirregular cyclesReasonCommentsOvarian CystReasonCommentsPre-op VisitReasonCommentsPost-op VisitPatient present today for a post operative visit. Pt had a Dx Lap Left ovarian cytootomy on 09/13/2024. INFORMATION SOURCE (unrecogn ized section and content) DATE CREATED AUTHOR 07/13/2022 [facility] DATE CREATED AUTHOR AUTHOR'S ORGANIZ ATION 09/16/2024 [facility] DATE CREATED AUTHOR AUTHOR'S ORGANIZ ATION 09/25/2024 [facility] EPIC Care Teams (unrecognized sec tion and content) Team MemberRelationshipSpecialtyStart DateEnd Date Iron Garcia MD [address] [place] [address] PCP - GeneralFamily Medicine11/23/22 Team Status: Active Member Role Status Dates Iron Garcia MD Primary Care Provider Active Team Status: Inactive Member Role Status Dates Iron Garcia MD Primary Care Provider Active Start: May 22, 2023 End: May 22Trini Echevarria ProviderActiveStart: May 22, 2023 End: May 22, 2023Team MemberRelationshipSpecialtyStart DateEnd Date Iron Garcia MD [address] [facility] [place] [address] PCP - GeneralFamily Medicine11/23/22Team MemberRelationshipSpecialtyStart DateEnd Date Iron Garcia MD [address] [facility] [place] [address] PCP - GeneralFamily Medicine11/23/22Team MemberRelationshipSpecialtyStart DateEnd Date Iron Garcia MD [address] [facility] [place] [address] PCP - GeneralFami Medicine11/23/22Team MemberRelationshipSpecialtyStart DateEnd Date Iron Garcia MD [address] [facility] [place] [address] PCP - GeneralFami Medicine11/23/22Team MemberRelationshipSpecialtyStart DateEnd Date Iron Garcia MD [address] [facility] [place] [address] PCP - GeneralFamily Medicine08/21/24Team MemberRelationshipSpecialtyStart DateEnd Date Iron Garcia MD [address] [facility] [place] [address] PCP - GeneralFamily Medicine08/21/24 Team Status: Inactive Member Role Status Dates Hannah David DO Attending Provider Active Start: August 15, 2024 End: August 15, 2024Team MemberRelationshipSpecialtyStart DateEnd Date Iron Garcia MD [address] [facility] [place] [address] PCP - GeneralFamily Medicine08/21/24Team MemberRelationshipSpecialtyStart DateEnd Iron Garcia MD [address] [place] [address] [facility] - [facility]08/21/24Te MemberRelationshipSpecialtyStart End Iron Garcia MD [address] [place] [address] PCP - [facility]08/21/24 Goals (unrecognized section and content) Goals may [...] BASED ON THE PRIMARY CLINICAL RECORDS. [facility] [employer] [facility]. provides no warranty or guarantee of the accuracy or completeness of information in this document.
--- OUTSIDE RECORDS SUMMARY | 2025-01-16 07:50 | XMS_ITS | Clinical Summary ---
Author Organization [facility] Address [address] [place] [address] Care Team Providers Care Central Supply Manager Name Role Phone Erik Garcia MD Primary Care Provider [phone] Allergies No known active allergies Medications No known medications Active Problems ProblemNoted DateDiagnosed Date32 weeks gestation of ([facility]) 06/30/2023Third trimester ([facility])06/13/20235002Amxiaa57/29/2024 Lglgphduikyl06/29/2024FI (amniotic fluid index) increased ([facility])05/26/2023 Encounters DateTypeDepartmentCare OusaLnmenopcegy38/19/2025Telephone [facility] [address] [place] [address] [place] [address] Alethea Reich MA from Last 3 Months Family History Medical HistoryRelationNameCommentsLung cancerMaternal GrandfatherBreast cancer MotherRelationNameStatusCommentsFatherDeceasedMaternal GrandfatherMotherAlive Social History Tobacco UseTypesPacks/DayYears UsedDateSmoking Tobacco: Never Tobacco Cessation:Counseling Given: Not Answered Alcohol UseStandard Drinks/WeekCommentsYes0 (1 standard drink = 0.6 oz pure alcohol)caffeine: occasionalAUDIT-CAnswerDate RecordedQ1: How often do you have a drink containing alcohol?2-4 times a month01/28/2023Q2: How many drinks containing alcohol do you have on a typical day when you are drinking?1 or 2 01/28/2023Q3: How often do you have six or more drinks on one occasion?Weekly 01/28/2023CommentsNoSex and Gender InformationValueDate RecordedSex Assigned at IfpsoSnaxxd13/28/2023 10:50 AM EDTLegal UcuZuyawn84/15/2023 8:06 PM EDTGender ViaooqfhIohcin11/28/2023 10:50 AM EDTSexual OrientationStraight 11/22/2022 10:50 AM EDT Last Filed Vital Signs Vital SignReadingTime TakenCommentsBlood Yquqjbqt330/72009/24/2024 11:01 AM EDT Pulse--Temperature--Respiratory Rate--Oxygen Saturation--Inhaled Oxygen Concentration--Mcktws05.5 kg (140 lb)09/24/2024 11:01 AM NEZOgstrp318.9 cm (5' 1 )11/23/2022 10:37 AM EDTBody Mass Index26.45011/23/2022 10:37 AM EDT Plan of Treatment Health MaintenanceDue DateLast DoneCommentsHPV/Suvekf1212/05/2023Influenza Vaccine (#1), 12/30/2020, 12/26/2020, Additional history exists Cervical Cancer Qlkawgwjz41/19/2026Pap Smear Procedures Procedure NamePriorityDate/TimeAssociated DiagnosisCommentsPAP SMEARRoutine 03/15/2023 12:00 AM ESTfrom Last 3 Months or Most Recently Relevant to Health Maintenance Results * Pap Smear (03/15/2023 12:00 AM EST)Specimen (Source)Anatomical Location / LateralityCollection Method / VolumeCollection TimeReceived TimeSwabCervical swab / Unknown Narrative Authorizing ProviderResult TypeResult StatusCorey Jennifer DOLAB CYTOLOGY ORDERABLESFinal ResultPerforming OrganizationAddressCity/State/ZIP CodePhone Number EXTERNAL LAB from Last 3 Months or Most Recently Relevant to Health Maintenance Insurance * Guarantor: Rolan Macias TypeRelation to PatientDate of BirthPhone Billing AddressPersonal/IfusjsKdgu60/09/1996 [facility], [facility] [address] Care Teams Team MemberRelationshipSpecialtyStart DateEnd Date Erik Garcia MD [address] [place] [address] [facility] - [facility]
--- OUTSIDE RECORDS SUMMARY | 2025-01-16 07:50 | XMS_ITS | Patient Health Record ---
Author Organization [facility] in [place] Address [address] [place] [address] Care Team Providers Care Children'S Aide Name Role Phone Abilio Garcia Primary Care Provider Allergies No Known Allergies Results Component Value Reference Range Notes UA DIP NONAUTO WO MICRO (810 02) - IN OFFICE Reviewed date:11/09/2024 11:04:06 AM Interpretation: Performing Lab: Notes/Report: COLOR Yellow CLARITYClearGLUCOSENegBILIRUBINNegKETONE+SPECIFIC GRAVITY1.544IBXKCVcrMS3XHXQQGM +UROBILINOGENNegNITRITENegLEUKOCYTE ESTERASE+++CBC AUTO DIFF Reviewed date:09/13/2024 06:52:01 PM Interpretation: Performing Lab: Notes/Report: [facility] ,White Blood Count11.04.0-11.0 10 3/uLRed Blood Count4.194.20-5.40 10 6/uL Ovdnddigwr02.412.0-16.0 g/qJXsiabsshgd94.436.0-48.0 %Mean Corpuscular Yxmuxz09.3 81.0-99.0 fLMean Corpuscular Vjexwemdrs44.626.7-34.0 pgMean Corpuscular HGB Conc 33.229.9-35.2 g/dLRed Cell Distribution Width13.011.0-15.0 %Platelet Ffymd856 150-450 10 3/uLMean Platelet Volume9.39.5-13.5 fLNeutrophils Percent Auto65.3 43.0-75.0 %Lymphocytes Percent Auto22.620.5-60.0 %Monocytes Percent Auto9.81.7- 12.0 %Eosinophils Percent Auto1.70.9-7.0 %Basophils Percent Auto0.30.2-2.0 % Immature Granulocytes Pct Auto0.30.0-0.5 %Neutrophils Absolute Auto7.21.4-6.5 10 3/uLLymphocytes Absolute Auto2.51.2-3.8 10 3/uLMonocytes Absolute Auto1.10.3-0.8 10 3/uLEosinophils Absolute Auto0.20.0-0.7 10 3/uLBasophils Absolute Auto0.00.0- 0.1 10 3/uLImmature Granulocytes Abs Auto0.030.00-0.03 10 3/uLPerforming Lab:see noteML - [facility] LBPREG QUANT HCG Reviewed date:09/13/2024 06:52:01 PM Interpretation: Performing Lab: Notes/Report: [facility] ,HCG Quantitative<1 5-50 0.2-1 WEEK 50-500 1-2 WEEKS 100-5,000 2-3 WEEKS 500-10,000 3-4 WEEKS 1,000-50,000 4-5 WEEKS 10,000-100,000 5-6 WEEKS 15,000-200,000 6-8 WEEKS 10,000-100,000 2-3 MONTHS Performing Lab:see noteML - [facility] LBHCG Tumor Marker Reviewed date:08/28/2024 04:06:06 PM Interpretation: Performing Lab: Notes/Report: [facility] ,HCG Tumor Marker<1. mIU/mL Female (Non-) 0 - 5 (Postmenopausal) 0 - 8 [employer] Electrochemiluminescence Immunoassay (ECLIA) The [employer] HCG + beta assay recognizes the holo-hormone, human chorionic gonadotropin (hCG), nicked forms of hCG, the beta-core fragment and the free beta-subunit in human serum and plasma. Results obtained with different test methods or kits cannot used interchangeably. This assay is intended for the early detection of . The result should not be used for treatment or for diagnostic purposes without confirmation of the diagnosis by another medically established diagnostic product or procedure. This test was developed and its performance characteristics determined by [facility]. It has not been cleared or approved by the Food and Drug Administration for use as a tumor marker. This test is not interpretable as a tumor marker in females. Performed at: [address] [id number] Bail Bond Agent: Jose Orellana PhD, Phone: [phone] Performing Lab:[facility] LBCancer Antigen (CA) 125 Reviewed date:08/28/2024 04:06:06 PM Interpretation: Performing Lab: Notes/Report: [facility] ,Cancer Antigen (CA) 22991.80.0-38.1 U/mL [employer] Electrochemiluminescence Immunoassay (ECLIA) Values obtained with different assay methods or kits cannot be used interchangeably. Results cannot be interpreted as absolute evidence of the presence or absence of malignant disease. Performed at: [address] [id number] Bail Bond Agent: Jose Orellana PhD, Phone: [phone] Performing Lab:see [facility] LBAFP, Serum, Tumor Marker Reviewed date:08/28/2024 04:06:06 PM Interpretation: Performing Lab: Notes/Report: [facility] ,AFP, Serum, Tumor Marker2.40.0-4.7 ng/mL [employer] Electrochemiluminescence Immunoassay (ECLIA) Values obtained with different assay methods or kits cannot be used interchangeably. Results cannot be interpreted as absolute evidence of the presence or absence of malignant disease. This test is not interpretable in females. Performing Lab:[facility] Labazrp LBCEA Reviewed date:08/28/2024 04:06:06 PM Interpretation: Performing Lab: Notes/Report: [facility] ,CEA1.50.0-4.7 ng/mL Nonsmokers <3.9 Smokers <5.6 [employer] Electrochemiluminescence Immunoassay (ECLIA) Values obtained with different assay methods or kits cannot be used interchangeably. Results cannot be interpreted as absolute evidence of the presence or absence of malignant disease. Performed at: [address] [id number] Bail Bond Agent: Jose Orellana PhD, Phone: [phone] Performing Lab:see [facility] LBUS pelvis transvaginal Reviewed date:08/16/2024 12:37:02 PM Interpretation: Performing Lab: Notes/Report: Source Facility: [place] [address] [place] [address] Ultrasound Report Signed Patient: ESTER MACIAS MR#: [id number] : 1995 Acct:[id number] Age/Sex: 28 / F ADM Date: 08/15/24 Loc: ER Attending Dr: Ordering Physician: Everardo Rothman NP Date of Service: 08/15/24 Procedure(s): US pelvis transvaginal Accession Number(s): [id number] cc: Erik Garcia M.D.; Everardo Rothman NP [place] [address] Patient Name: ESTER MACIAS MRN: [id number] date: 1995 Sex: F Assigned Patient Location: ER Current Patient Location: ER Accession/Order Number: [id number] Exam Date: 08/15/2024 21:29 Report Date: 08/15/2024 21:34 At the request of: EVERARDO ROTHMAN NP Procedure: US pelvis transvaginal TRANSVAGINAL PELVIC ULTRASOUND HISTORY: Lower abdominal pain. FINDINGS: The uterus measures 8.1 x 4.1 x 5.8 cm. No uterine lesion identified. The endometrium has a total combined thickness of 4mm. The RIGHT ovary measures 5.0 x 4.5 x 4.1 cm. Resistive index 0.59. There is complex cystic area of the right ovary measuring up to 4 cm. Multiple thin septations. LEFT ovary measures 2.5 x 1.5 x 1.8 cm resistive index 0.46 Bilateral ovarian blood flow identified. No free fluid identified. There is no adnexal mass identified. US/US pelvis transvaginal IMPRESSION: 4 cm complex right ovarian cyst. Color flow of both ovaries. Unremarkable uterus and endometrial complex. Impression dictated by: Cody Eugene M.D. 08/15/2024 9:34 PM Dictation Location: [place] [address] Electronically authenticated by: [id number] Y Date: 08/15/2024 21:34 Dictated By: Cody Eugene D.O. Signed By: 08/15/242136 DD/ 33 TD/TT: Yarn Packer:Urine Culture - [facility] Reviewed date:08/20/2024 03:23:56 PM Interpretation: Performing Lab: Notes/Report: [facility] ,Urine Culture - FRMCSee Below For Report Urine Culture - [facility] <9,000 colonies/ml mixed Urine Culture - FRMCbacterial skin contaminants Urine Culture - [facility] <9,000 colonies/ml mixed Urine Culture - [facility]2 Days Urine Culture - [facility] <9,000 colonies/ml mixed Urine Culture - [facility] Urine Culture - [facility] <9,000 colonies/ml mixed Urine Culture - FRMCTesting [facility] at [facility] Urine Culture - [facility] <9,000 colonies/ml mixed Urine Culture - [id number] [place] [address] Urine Culture - [facility] <9,000 colonies/ml mixed Performing Lab:see noteML - [facility] LBHCG Qualitative Urine Reviewed date:08/16/2024 12:37:02 PM Interpretation: Performing Lab: Notes/Report: [facility] ,HCG Qualitative Urine*NEGATIVENEGATIVEPerforming Lab:see noteML - [facility] LBURINE MICROSCOPIC ONLY Reviewed date:08/16/2024 12:37:01 PM Interpretation: Performing Lab: Notes/Report: [facility] ,WBC Urine0-2NONE SEEN #/HPFRBC UrineNONE SEEN0-2 #/HPFBacteria UrineSMALLNONE SEEN #/HPFMucus UrineNONE SEENNONE SEENSquamous Epithelial Cell UrineMANY NONE/RARE #/LPFCrystals Seen?None SeenNone Seen #/HPFCast Seen?NONE SEENNONE SEEN #/LPFUrine Culture IndicatedYES-FRMCPerforming Lab:see noteML - [facility] LBUA (CLEAN or CATCH) CATERING AND EVENTS MANAGER or MICRO IF IND. Reviewed date:08/16/2024 12:37:01 PM Interpretation: Performing Lab: Notes/Report: [facility] ,Color UrineYELLOWYELLOWClarity UrineCLEARCLEARSpecific [place] Urine1.020 1.005-1.025pH Urine6.55.0-9.0Protein UrineTRACENEG/TRACE mg/dLGlucose Urine UA NEGATIVENEGATIVE mg/dLBilirubin UrineNEGATIVENEGATIVEKetones UrineTRACENEGATIVE mg/dLBlood UrineNEGATIVENEGATIVENitrite UrineNEGATIVENEGATIVEUrobilinogen Urine 1.00.2-1.0 EU/dLLeukocyte Esterase UrineNEGATIVENEGATIVEUrine Microscopic IndicatedYESPerforming Lab:see note - [facility] LBPROF 14(COMP METB) Reviewed date:08/16/2024 12:37:01 PM Interpretation: Performing Lab: Notes/Report: [facility] ,Lzrflx715994-800 mmol/LPotassium4.23.5-5.1 mmol/IWmhufwne45360-987 mmol/LCarbon Pdygnea35.421.0-32.0 mmol/LAnion Gap8.1Zgofeqp7928-147 mg/dLBlood Urea Nitrogen 28.07.0-18.0 mg/dLCreatinine0.640.55-1.02 mg/dLEstimated GFR ( Christina>60 >=60 mL/min/1.73m 2Estimated GFR (Non- Rhianna>60>=60 mL/min/1.73m 2BUN Creatinine Ratio43.2Dwqmmey8.98.5-10.1 mg/dLBilirubin Total0.80.2-1.0 mg/dL Aspartate Amino Mnpmlsfszhc5818-87 U/LAlanine Vifdwktehxrbxcrg2462-94 U/L Alkaline Bnwnpnoprmx7932-798 U/LTotal Protein6.66.4-8.2 g/dLAlbumin Level3.63.4- 5.0 g/dLGlobulin3.0Albumin Globulin Ratio1.2Performing Lab:see note - [facility] LBLIPASE Reviewed date:08/16/2024 12:37:01 PM Interpretation: Performing Lab: Notes/Report: [facility] ,Bqrlof68.016.0-77.0 U/LPerforming Lab:see [facility] LBCBC AUTO DIFF Reviewed date:08/16/2024 12:37:01 PM Interpretation: Performing Lab: Notes/Report: [facility] ,White Blood Count10.14.0-11.0 10 3/uLRed Blood Count4.304.20-5.40 10 6/uL Emijyuixxx40.812.0-16.0 g/hNUvwwrijwsz97.636.0-48.0 %Mean Corpuscular Afgdqr86.8 81.0-99.0 fLMean Corpuscular Wrqsgspwuf50.826.7-34.0 pgMean Corpuscular HGB Conc 33.229.9-35.2 g/dLRed Cell Distribution Width13.211.0-15.0 %Platelet Gaxhj468 150-450 10 3/uLMean Platelet Volume9.49.5-13.5 fLNeutrophils Percent Auto62.1 43.0-75.0 %Lymphocytes Percent Auto25.620.5-60.0 %Monocytes Percent Auto10.01.7- 12.0 %Eosinophils Percent Auto1.70.9-7.0 %Basophils Percent Auto0.30.2-2.0 % Immature Granulocytes Pct Auto0.30.0-0.5 %Neutrophils Absolute Auto6.31.4-6.5 10 3/uLLymphocytes Absolute Auto2.61.2-3.8 10 3/uLMonocytes Absolute Auto1.00.3-0.8 10 3/uLEosinophils Absolute Auto0.20.0-0.7 10 3/uLBasophils Absolute Auto0.00.0- 0.1 10 3/uLImmature Granulocytes Abs Auto0.030.00-0.03 10 3/uLPerforming Lab:see noteML - [facility] LBDHEA-Sulfate Reviewed date:07/01/2024 03:20:51 PM Interpretation: Performing Lab: Notes/Report: [facility] ,DHEA-Webqcew45.884.8-378.0 ug/dLPerforming Lab:see noteLC - [facility] Reviewed date:07/01/2024 03:20:51 PM Interpretation: Performing Lab: Notes/Report: [facility] ,FSH6.5. mIU/mL Adult Female Range Follicular phase 3.5 - 12.5 Ovulation phase 4.7 - 21.5 Luteal phase 1.7 - 7.7 Postmenopausal 25.8 - 134.8 Performed at: [address] [id number] Bail Bond Agent: Jose Orellana PhD, Phone: [phone] Performing Lab:see [facility] LBLuteinizing Hormone(LH) Reviewed date:07/01/2024 03:20:51 PM Interpretation: Performing Lab: Notes/Report: [facility] ,Luteinizing Hormone(LH)3.5. mIU/mL Adult Female Range Follicular phase 2.4 - 12.6 Ovulation phase 14.0 - 95.6 Luteal phase 1.0 - 11.4 Postmenopausal 7.7 - 58.5 Performing Lab:see [facility] LBDHEA, Serum Reviewed date:07/08/2024 03:34:30 PM Interpretation: Performing Lab: Notes/Report: [facility] ,DHEA, Pngaj66782-536 ng/dL This test was developed and its performance characteristics determined by [facility]. It has not been cleared or approved by the Food and Drug Administration. Performed at: [address] [id number] Bail Bond Agent: Go Valente MD, Phone: [phone] Performing Lab:see [facility] LBTSH Reviewed date:06/28/2024 05:15:15 PM Interpretation: Performing Lab: Notes/Report: [facility] ,Thyroid Stimulating Hormone1.0170.358-3.740 uIU/mLPerforming Lab:see note - [facility] LBPREG QUANT HCG Reviewed date:06/28/2024 05:15:15 PM Interpretation: Performing Lab: Notes/Report: [facility] ,HCG Quantitative<1 5-50 0.2-1 WEEK 50-500 1-2 WEEKS 100-5,000 2-3 WEEKS 500-10,000 3-4 WEEKS 1,000-50,000 4-5 WEEKS 10,000-100,000 5-6 WEEKS 15,000-200,000 6-8 WEEKS 10,000-100,000 2-3 MONTHS Performing Lab:see note - [facility] LBGLYCOHEMOGLOBIN A1C Reviewed date:06/28/2024 05:15:15 PM Interpretation: Performing Lab: Notes/Report: [facility] ,Glycohemoglobin A1C5.34.5-6.2 % ADA RECOMMENDED LIMIT 4.0 - 6.0 ADA THERAPEUTIC TARGET < 7.0 ACTION SUGGESTED > 7.0 Estimated Average Wyzmaac728Bgtdqeuxrn Lab:see noteML - [facility] LB FREE T4 Reviewed date:06/28/2024 05:15:15 PM Interpretation: Performing Lab: Notes/Report: [facility] ,Free T40.850.76-1.46 ng/dLPerforming Lab:see noteML - [facility] LB CBC AUTO DIFF Reviewed date:06/28/2024 05:15:15 PM Interpretation: Performing Lab: Notes/Report: [facility] ,White Blood Count6.24.0-11.0 10 3/uLRed Blood Count4.364.20-5.40 10 6/uL Otczndfwvw30.812.0-16.0 g/wZEthdtzusyi60.236.0-48.0 %Mean Corpuscular Xtxfht02.9 81.0-99.0 fLMean Corpuscular Qafnoosozy57.426.7-34.0 pgMean Corpuscular HGB Conc 32.729.9-35.2 g/dLRed Cell Distribution Width13.311.0-15.0 %Platelet Incop885 150-450 10 3/uLMean Platelet Volume8.99.5-13.5 fLNeutrophils Percent Auto59.6 43.0-75.0 %Lymphocytes Percent Auto27.120.5-60.0 %Monocytes Percent Auto9.91.7- 12.0 %Eosinophils Percent Auto2.60.9-7.0 %Basophils Percent Auto0.50.2-2.0 % Immature Granulocytes Pct Auto0.30.0-0.5 %Neutrophils Absolute Auto3.71.4-6.5 10 3/uLLymphocytes Absolute Auto1.71.2-3.8 10 3/uLMonocytes Absolute Auto0.60.3-0.8 10 3/uLEosinophils Absolute Auto0.20.0-0.7 10 3/uLBasophils Absolute Auto0.00.0- 0.1 10 3/uLImmature Granulocytes Abs Auto0.020.00-0.03 10 3/uLPerforming Lab:see noteML - [facility] LBLDH Reviewed date:08/27/2024 08:51:37 PM Interpretation: Performing Lab: Notes/Report: [facility] ,Lactate Qgqzrkdasrzdu65354-571 U/LPerforming Lab:see note - [facility] LBUS pelvis w/ transvaginal Reviewed date:03/28/2024 03:17:33 PM Interpretation: Performing Lab: Notes/Report: Source Facility: [place] [address] Ultrasound Report Signed Patient: ESTER MACIAS MR#: [id number] : 1995 Acct:[id number] Age/Sex: 28 / F ADM Date: 03/27/24 Loc: US Attending Dr: Ricardo Rodriguez D.O. Ordering Physician: Ricardo Rodriguez D.O. Date of Service: 03/27/24 Procedure(s): US pelvis w/ transvaginal Accession Number(s): [id number] cc: Ricardo Rodriguez D.O.; Erik Garcia M.D. [place] [address] Patient Name: ESTER MACIAS MRN: [id number] date: 1995 Sex: F Assigned Patient Location: Current Patient Location: Accession/Order Number: [id number] Exam Date: 03/27/2024 14:05 Report Date: 03/28/2024 03:32 At the request of: RICARDO RODRIGUEZ Procedure: US pelvis w/ transvaginal EXAMINATION: US pelvis w/ transvaginal HISTORY: Heavy vaginal bleeding COMPARISON: No relevant comparison available. TECHNIQUE: Transabdominal and/or transvaginal sonographic examination was performed as indicated by examination type. FINDINGS: UTERUS: Normal size and appearance. Uterus size: 6.7 x 4.6 x 4.0 cm. ENDOMETRIUM: Normal homogeneous appearance. Endometrial thickness: 2 mm RIGHT OVARY: Normal size and appearance. Duplex Doppler demonstrates normal waveform and flow; resistive index 0.7. Ovary size: 3.0 x 2.1 x 1.5 cm LEFT OVARY: Normal size and appearance. Duplex Doppler demonstrates normal waveform and flow; resistive index 0.6. Ovary size: 3.0 x 1.3 x 1.7 cm CUL-DE-SAC: Unremarkable. No significant free fluid. BLADDER: Unremarkable. OTHER: None. US/US pelvis w/ transvaginal IMPRESSION: 1. No abnormal or suspicious findings to account for patient's symptoms. Electronically authenticated by: LAM VELA Date: 03/28/2024 03:32 Dictated By: Lam Vela M.D. Signed By: 03/28/24334 DD/ 1 TD/TT: Yarn Packer: Reason For Referral No Information Medications Medication SIG (Take, Route, Frequency, Duration) Notes Start Date End Date Status Promethazine HCl 25 MG 1 tablet as needed Orally q6h; Duration: 02/24/2023ctiveAtomoxetine HCl 25 MG1 capsule Orally Twice a day; Duration: 30 day(s)5ActiveImitrex 100 MG1 tablet at least 2 hours between doses as needed Orally Twice a day; Duration: ctiveTamiflu 75 MG1 capsule Orally Twice a day; Duration: 05/04/2024tiveCephalexin 500 MG2 tablet Orally twice a day; Duration: 02/08/2023ctiveStrattera 60 MG1 capsule in the morning Orally Once a day; Duration: 30 10/23/2024tiveCefdinir 300 MG2 tabs Orally once a day; Duration: ctivePyridium 200 MG1 tablet after meals Orally Three times a day; Duration: 2 12/15/2024tiveDiflucan 100 MG1 tablet Orally daily; Duration: 10 05/30/2024tiveAtomoxetine HCl 60 MG1 capsule in the morning Orally Once a day; Duration: 30 5Active Azithromycin 250 MG2 tabs today then 1 tab Orally daily; Duration: 5 days 05/25/2024tiveAmoxicillin-Pot Clavulanate 875-125 MG1 tablet Orally every 12 hrs; Duration: 10 days11/28/2023ActivePyridium 200 MG1 tablet after meals Orally Three times a day; Duration: 2 days11/09/2024tiveAzithromycin 250 MG2 tabs today then 1 tab Orally daily; Duration: 5 days03/02/2024ctiveCefdinir 300 MG2 capsule Orally once a day; Duration: 10 days03/05/2024ctiveKetoconazole 2 %1 application Externally Twice a day; Duration: ctive Ykhotdos-Hthscvrka-XP 3.5-67191-64 drops into affected ear Otic Three times a day; Duration: 7 daysActiveCiprofloxacin HCl 500 MG1 tablet Orally every 12 hrs; Duration: 10 days11/09/2024tive Social History Tobacco Use: Social History Observation Description Date Details (start date - stop date) Never Smoker NA - NA Tobacco Use/Smoking Question Answer Notes Patient is a nonsmoker Problems Problem Type SNOMED Code ICD Code Onset Dates Problem Status W/U Status Risk Notes Problem Amenorrhea (10809316) Amenorrhea, unspeci fied (N91.2) ActiveconfirmedProblemSinusitis (23103717)Sinusitis (J32.9)Activeconfirmed ProblemMigraine without aura, not refractory (868008890)Migraine without aura and without status migrainosus, not intractable (G43.009)ActiveconfirmedProblem Seasonal allergic rhinitis (423554850)Seasonal allergic rhinitis (J30.2)Active confirmedProblemAllergic rhinitis (17747704)Allergic sinusitis (J30.9)Active confirmed Encounters Encounter Location Date Provider Diagnosis [address] [address] 05/21/2024 Abilio Hoy Allergic sinusitis J30.[address] [address] 11/05/2024 Abilio Hoy Allergic sinusitis J30.[address] [address] 11/23/2024 Abilio Hoy Seasonal allergic rhinitis J30.[address] [address] 02/08/2024 Abilio Hoy Wellness examination Z01.[address] [place] [address] 03/02/2024 Abilio oumou [facility] [facility] [place] [address] 03/05[facility] [facility] [place] [address]/08/2024Doug HoyMigraine without aura and without status migrainosus, not intractable G43.009[facility] [facility] [place] [address]/09/2024[facility] [facility] [place] [address]/Doug [facility] [facility] [place] [address]/ [facility] [facility] [place] [address]/[facility] [facility] [place] [address]/07/2024[facility] [facility] [place] [address]/[facility] [facility] [place] [address]/Doug HoyMigraine without aura and without status migrainosus, not intractable G43.009[facility] [facility] [place] [address]/07/2024 Abilio HoySeasonal allergic rhinitis J30.2[facility] [facility] [place] [address]/[facility] [facility] [place] [address]/10/2024[facility] [facility] [place] [address]/01/2025 [facility] [facility] [place] [address]/Doug HoyDysuria R30.0[place] [address] [facility] [place] [address]/[facility] [facility] [place] [address]/[facility] [facility] [place] [address]/ [facility] [facility] [place] [address]/[facility] [facility] [place] [address]/[facility] [facility] [place] [address]/Doug HoyAllergic sinusitis J30.9 [place] [address] [facility] [place] [address] 01/14/2025Doug HoySinusitis J32.9BKristen [place] [address] [facility] [place] [address]/Doug HoyAmenorrhea, unspecified N91.2 Assessments Encounter Date Diagnosis (ICD Code) Assessment Notes Treatment Notes Treatment Clinical Notes Section Notes 05/21/2024 Allergic sinusitis (ICD-10 - J30 .9) 11/05/2024llergic sinusitis (ICD-10 - J30.9)11/23/2024Seasonal allergic rhinitis (ICD-10 - J30.2)02/08/2024Wellness examination (ICD-10 - Z01.89) 04/02/2024Migraine without aura and without status migrainosus, not intractable (ICD-10 - G43.009)08/15/2024Migraine without aura and without status migrainosus, not intractable (ICD-10 - G43.009)08/30/2024Seasonal allergic rhinitis (ICD-10 - J30.2)11/09/2024Dysuria (ICD-10 - R30.0)01/14/2025llergic sinusitis (ICD-10 - J30.9)01/14/2025Sinusitis (ICD-10 - J32.9)01/15/2025 Amenorrhea, unspecified (ICD-10 - N91.2) Plan Of Treatment Pending Test Test Name Order Date CMP (COMPLETE METABOLIC PANEL) 4 UA (URINALYSIS, COMPLETE) 04/07/2023 Urinalysis Microscopic 04/07/2023 PROGESTERONE 01/15/2025 CMP - Comprehensive Metabolic Panel 12/27 HCG (Quantitative) 12/10/2022 CBC W/AUTO DIFF 05/24/2023 CBC W/AUTO DIFF 02/08/2024 Rapid COVID-19 Ag 10/17/2023 Ultrasound venous doppler 08/17/2023 GLUCOSE 1 HR 05/24/2023 CBC AUTO DIFF 01/15/2025 CULTURE URINE 04/07/2023 ESTRADIOL 01/15/2025 GLYCOHEMOGLOBIN A1C 02/08/2024 INFLUENZA A AND B AG 10/17/2023 INFLUENZA A AND B AG 02/22/2023 LIPID PROFILE 02/08/2024 LUTEINIZING HORMONE (LH) 01/15/2025 PROLACTIN 01/15/2025 RESPIRATORY PANEL PLUS 02/22/2023 THYROID PANEL (T4/TSH/FREE T3) 4 THYROID PANEL (T4/TSH/FREE T3) 5 FSH 01/15/2025 Insurance Providers Payer Name Payer Address Payer Phone Subscriber Number Group Number Insured Name Patient Relationship to Insured Coverage Start Date Coverage End Date [employer] ACCESS PPO PLUS LOCAL PLAN [address] [place] [address] [id number] Eddi Macias Spouse - patient is the spouse of the insured 4 Medications Administered Medication Instructions Date of Administration Dosage Notes Ketorolac Tromethamine mgKetorolac Citimbbyiumg82/06/202560 mgKetorolac Tromethamine mgKetorolac Ycmaxmkihzik26/11/202560 mgOrphenadrine Citrate mgPromethazine, 25 mg325 mgTriamcinolone 40 mg/ml mgTriamcinolone 40 mg/ml mgTriamcinolone 40 mg/ml mgTriamcinolone 40 mg/ml mgTriamcinolone 40 mg/ml mg Medical (General) History Medical History History ICD Code History of ovarian cyst Z87.42 Depression F32.9 Anxiety F41.9 Endometriosis N80.9 Acute bronchitis J20.9 Acute cystitis with hematuria N30.01 Acute pharyngitis J02.9 Over weight E66.3 COVID-19 U07.1 DDD (degenerative disc disease), cervica l M50.30 Allergic rhinitis, seasonal J30.2 Migraine headache G43.909 Tendinitis of shoulder, right M75.81 Gastritis K29.70 Vitamin D deficiency E55.9 Well adult Z00.00 COVID-19 virus infection U07.1 Constipation K59.00 Dyshidrotic eczema L30.1 Insomnia G47.00 Menometrorrhagia N92.1 Surgical History Surgery Date(Month/Year) Tonsills laparotomy
[2025-01-16 08:35] LABS: Alanine Aminotransferase 23 U/L (14-59); Albumin Globulin Ratio 1.2; Albumin Level 3.7 g/dL (3.4-5.0); Alkaline Phosphatase 55 U/L (46-116); Anion Gap 12.8; Aspartate Amino Transferase 14 U/L (15-37); Blood Urea Nitrogen 17.0 mg/dL (7.0-18.0); Calcium 8.8 mg/dL (8.5-10.1); Carbon Dioxide 26.4 mmol/L (21.0-32.0); Chloride 105 mmol/L (98-107); Estimated GFR (African America >60 (>=60 mL/min/1.73m^2); Estimated GFR (Non-African Ame >60 (>=60 mL/min/1.73m^2); Free T3 2.63 pg/mL (2.18-3.98); Globulin 3.2 g/dL; Glucose 100 mg/dL (74-106); Hematocrit 41.3 % (36.0-48.0); Hemoglobin 14.0 g/dL (12.0-16.0); Immature Granulocytes Abs Auto 0.04 10^3/uL (0.00-0.03); Immature Granulocytes Pct Auto 0.4 % (0.0-0.5); Lymphocytes Absolute Auto 1.7 10^3/uL (1.2-3.8); Mean Corpuscular HGB Conc 33.9 g/dL (29.9-35.2); Mean Corpuscular Hemoglobin 30.8 pg (26.7-34.0); Mean Corpuscular Volume 90.8 fL (81.0-99.0); Platelet Count 326 10^3/uL (150-450); Potassium 4.2 mmol/L (3.5-5.1); Red Blood Count 4.55 10^6/uL (4.20-5.40); Sodium 140 mmol/L (136-145); Thyroid Stimulating Hormone 1.402 uIU/mL (0.358-3.740); Total Protein 6.9 g/dL (6.4-8.2); White Blood Count 10.6 10^3/uL (4.0-11.0)
[2025-01-17 08:09] LABS: FSH 2.7 mIU/mL (.)
== END 2025-01-16 07:45 | disposition home or self-care (01) ==
PROVIDERS: PCP Family Medicine; Visit Provider Family Medicine
DX: N91.2 Amenorrhea, unspecified (principal)
CPT/HCPCS: 36415; 80053; 82670; 83001; 83002; 84144; 84146; 84436; 84443; 84481; 85025

== ENCOUNTER 2025-01-18 10:40 | Outpatient (OUT) | payer BC, SELFPAY ==
--- OUTSIDE RECORDS SUMMARY | 2025-01-14 04:45 | XMS_ITS ---
Author Organization [facility] in [place] Address [address] [place] [address] Care Team Providers Care Deputy K 9 Name Role Phone Abilio Garcia Primary Care Provider REASON FOR VISIT allergies Encounters Encounter Location Date Provider Diagnosis [facility] [address] [place] [address] 01/14/2025 Abilio Garcia Allergic sinusitis J30.9 Assessments Encounter Date Diagnosis (ICD Code) Assessment Notes Treatment Notes Treatment Clinical Notes Section Notes 01/14/2025 Allergic sinusitis (ICD-10 - J30 .9) Plan Of Treatment No Information Medications Administered Medication Instructions Date of Administration Dosage Notes Triamcinolone 40 mg/ml 0 mg Progress Notes * Kasandra MACIAS DDOB: [birth year] (29 yo F)Acc No.[id number]:01/14/2025 Patient:?Kasandra MACIAS :1995???Age:29 Y???Sex:FemalePhone:[phone] Address:[address] [place] [address], [phone] Subjective: * Chief Complaints: * A llergies [...] 10MG. * true * Date:?Generated for Printing/Faxing/eTransmitting on:?01/18/2025 10:44 AM EDT
--- OUTSIDE RECORDS SUMMARY | 2025-01-15 07:39 | XMS_ITS ---
Author Organization [facility] in [place] Address [address] [place] [address] Care Team Providers Care Pmp Project Manager Name Role Phone Abilio Garcia Primary Care Provider Results Component Value Reference Range Notes CBC AUTO DIFF Reviewed date:01/16/2025 01:05:41 PM Interpretation: Performing Lab: Notes/Report: [facility] , White Blood Count 10.6 4.0-11.0 10 3/uL Red Blood Count4.554.20-5.40 10 6/fRDwulkmwfut60.012.0-16.0 g/tPHvdorpxzxn41.3 36.0-48.0 %Mean Corpuscular Xpdnlj14.881.0-99.0 fLMean Corpuscular Hemoglobin 30.826.7-34.0 pgMean Corpuscular HGB Conc33.929.9-35.2 g/dLRed Cell Distribution Width13.111.0-15.0 %Platelet Ehfad104864-839 10 3/uLMean Platelet Volume9.29.5- 13.5 fLNeutrophils Percent Auto75.343.0-75.0 %Lymphocytes Percent Auto16.020.5- 60.0 %Monocytes Percent Auto7.41.7-12.0 %Eosinophils Percent Auto0.60.9-7.0 % Basophils Percent Auto0.30.2-2.0 %Immature Granulocytes Pct Auto0.40.0-0.5 % Neutrophils Absolute Auto8.01.4-6.5 10 3/uLLymphocytes Absolute Auto1.71.2-3.8 10 3/uLMonocytes Absolute Auto0.80.3-0.8 10 3/uLEosinophils Absolute Auto0.10.0- 0.7 10 3/uLBasophils Absolute Auto0.00.0-0.1 10 3/uLImmature Granulocytes Abs Auto0.040.00-0.03 10 3/uLPerforming Lab:see noteML - [facility] LB PROLACTIN Reviewed date:01/17/2025 09:53:06 AM Interpretation: Performing Lab: Notes/Report: [facility] ,Prolactin8.74.8-33.4 ng/mLPerforming Lab:see noteLC - [facility] LBFSH Reviewed date:01/17/2025 09:53:06 AM Interpretation: Performing Lab: Notes/Report: [facility] ,FSH2.7. mIU/mL Adult Female Range Follicular phase 3.5 - 12.5 Ovulation phase 4.7 - 21.5 Luteal phase 1.7 - 7.7 Postmenopausal 25.8 - 134.8 Performing Lab:see noteLC - [facility] LB REASON FOR VISIT labs Encounters Encounter Location Date Provider Diagnosis [facility] [address] [place] [address] 01/15/2025 Abilio Garcia Amenorrhea, unspecif ied N91.2 Assessments Encounter Date Diagnosis (ICD Code) Assessment Notes Treatment Notes Treatment Clinical Notes Section Notes 01/15/2025 Amenorrhea, unspecified (ICD-10 - N91.2) Plan Of Treatment Pending Test Test Name Order Date PROGESTERONE 01/15/2025 CMP - Comprehensive Metabolic Panel 12/27 ESTRADIOL 01/15/2025 LUTEINIZING HORMONE (LH) 01/15/2025 THYROID PANEL (T4/TSH/FREE T3) Progress Notes * Kasandra MACIAS DDOB: 4 (29 yo F)Acc No.[id number]:01/15/2025 Patient:?Kasandra MACIAS D :1995???Age:29 Y???Sex:FemalePhone:[phone] Address:[address] [place] [address], [address] Subjective: * Chief Complaints: * L abs [...] Codes: * true * Date:?Generated for Printing/Faxing/eTransmitting on:?01/18/2025 10:44 AM EDT
--- OUTSIDE RECORDS SUMMARY | 2025-01-18 10:43 | XMS_ITS | Clinical Summary ---
Author Organization [facility] Address [address] [place] [address] Care Team Providers Care Plastics Fabricator Or Welder Name Role Phone Erik Garcia MD Primary Care Provider [phone] Allergies No known active allergies Medications No known medications Active Problems ProblemNoted DateDiagnosed Date32 weeks gestation of ([facility]) 06/30/2023Third trimester ([facility])06/13/20234316Szqtib89/29/2024 Kfitrmylzhgm75/29/2024FI (amniotic fluid index) increased ([facility])05/26/2023 Encounters DateTypeDepartmentCare KeakMnopxyvsidn76/19/2025Telephone [facility] [address] [place] [address] [place] [address] Alethea Reich MA from Last [...] 01/28/2023CommentsNoSex and Gender InformationValueDate RecordedSex Assigned at IfzlrVipefu56/28/2023 10:50 AM EDTLegal HufLuarre84/15/2023 8:06 PM EDTGender GcffbjsgDngpaw53/28/2023 10:50 AM EDTSexual OrientationStraight 11/22/2022 10:50 AM EDT Last Filed Vital Signs Vital SignReadingTime TakenCommentsBlood Yyhgbbfw173/72009/24/2024 11:01 AM EDT Pulse--Temperature--Respiratory Rate--Oxygen Saturation--Inhaled Oxygen Concentration--Czeblh71.5 kg (140 lb)09/24/2024 11:01 AM ONTYsadaj227.9 cm (5' 1 )11/23/2022 10:37 AM EDTBody Mass Index26.45011/23/2022 10:37 AM EDT Plan of Treatment Health MaintenanceDue DateLast DoneCommentsHPV/Oaeypd6312/05/2023Influenza Vaccine (#1), 12/30/2020, 12/26/2020, Additional history exists Cervical Cancer Lllszedqn40/19/2026Pap Smear Procedures Procedure NamePriorityDate/TimeAssociated DiagnosisCommentsPAP SMEARRoutine 03/15/2023 [...] Macias TypeRelation to PatientDate of BirthPhone Billing AddressPersonal/CvsuliQdkh89/09/1996 [facility] [address] Care Teams Team MemberRelationshipSpecialtyStart DateEnd Date Erik Garcia MD [address] [place] [address] [facility]21/24
--- OUTSIDE RECORDS SUMMARY | 2025-01-18 10:43 | XMS_ITS | CCD ---
Author Organization [facility] CliniSyal Care Team Providers Care Hand Cooper Helper Name Role Phone LydiaDudley Unavailable Mohini Martinez Unavailable JENNIFER ., DR SILVA Admitting Unavailable JENNIFER ., DR SILVA Attending Unavailable HOY ., DR PERDUE Primary Care Unavailable [place], DR DUDLEY Emanuel Consulting Unavailable JENNIFER ., DR SILVA Consulting Unavailable LEANDRO, JAMIL Admitting Unavailable JAMIL REEVES Attending Unavailable HOY ., DR PERDUE Primary Care Unavailable HOY ., DR PERDUE Consulting Unavailable DUDLEY LANE Consulting Unavailable HOY ., DR PERDUE Admitting Unavailable HOY ., DR PERDUE Attending Unavailable HOY ., DR PERDUE Primary Care Unavailable HOY ., DR PERDUE Consulting Unavailable [place], DR DUDLEY Emanuel Consulting Unavailable JENNIFER ., [...] DR PERDUE Consulting Unavailable HOY ., DR PERUDE Attending Unavailable HOY ., DR PERDUE Primary [...] JENNIFER ., DR SILVA Consulting Unavailable Lam Machuca Consulting Unavailable JENNIFER ., DR SILVA Admitting Unavailable JENNIFER ., DR SILVA Attending Unavailable HOY ., DR PERDUE Primary Care Unavailable JENNIFER ., DR SILVA Admitting Unavailable JENNIFER ., DR SILVA Attending Unavailable HOY ., DR PERDUE Primary Care Unavailable Iron Garcia MD Primary Care Provider [phone] Iron Garcia MD Primary Care Provider [phone] Hannah David DO Attending Provider [phone] Hannah David Admitting Unavailable Hannah David Attending Unavailable Jennifer, Ricardo Admitting Unavailable Jennifer, Ricardo Attending Unavailable JENNIFER, RICARDO Attending Unavailable JOSI PRESCOTT Attending Unavailable JENNIFER, RICARDO Attending Unavailable JENNIFER, RICARDO Attending Unavailable JENNIFER, RICARDO Attending Unavailable JOSI PRESCOTT Attending Unavailable Medications Current Medications MedicationDrug Class(es)DatesSig (Normalized)Sig (Original)[id number] 200 actuat albuterol 0.09 mg/actuat metered dose inhaler (1 source)beta2-Adrenergic AgonistStart: hr buPROPion hydrochloride 150 mg extended release oral tablet (2 sources)AminoketoneStart: 59-92-2550zima 1 tablet by mouth every twenty-four hours in the morningbuPROPion XL (Wellbutrin XL) 150 MG 24 hr tablet Take 150 mg by mouth in the morning. 0 11/17/2022 ActivebusPIRone (1 source)1 ml galcanezumab-gnlm 120 mg/ml auto-injector (2 sources)galcanezumab (Emgality) 120 MG/ML auto-injector Emgality 0 Active levocetirizine (2 sources)Histamine-1 Receptor AntagonistXyzal ActivelevoFLOXacin 500 mg oral tablet (2 sources)Quinolone AntimicrobialStart: 89-74-2281ygub 1 tablet by mouth in the morninglevoFLOXacin (Levaquin) 500 MG tablet Take 1 tablet by mouth in the morning. 0 07/27/2022 Activemagnesium oxide 400 mg oral capsule (2 sources)Start: 02-22-2023 End: 30-27-8221evpa 1 capsule by mouth in the morningmagnesium oxide 400 MG capsule Indications: Cluster headache, not intractable, unspecified chronicity pattern Take 1 capsule (400 mg) by mouth in the morning. 30 capsule 11 02/22/2023 02/22/2024 ActivemedroxyPROGESTERone acetate 10 mg oral tablet (8 sources)ProgestinStart: 03-01-2024 End: 41-57-6159gzax 1 tablet by mouth once dailymedroxyPROGESTERone (Provera) 10 MG tablet Indications: Abnormal vaginal bleeding Take 1 tablet (10mg) by mouth Daily for 14 days 14 tablet 03/01/2024 08/21/2024 Discontinuedosmotic 24 hr metFORMIN hydrochloride 500 mg extended release oral tablet (2 sources)BiguanidemetFORMIN, OSM, (Fortamet) 500 MG 24 hr tablet metFORMIN HCl ER 0 Activeondansetron 4 mg oral tablet (2 sources)Serotonin-3 Receptor AntagonistStart: 52-81-9705xcwu 1 tablet by mouth twice daily as needed for nauseaondansetron (Zofran) 4 MG tablet TAKE 1 TABLET BY MOUTH TWICE DAILY NEEDED FOR NAUSEA 0 02/19/2023 DaboslAxikju32- Iron Fum-Folic Ac-Om3 (One A Day Women's Dha) 28 mg iron- 800 mcg combo pack (2 sources)Start: 18-61-0096Rdfowb43-Iron Fum-Folic Ac-Om3 (One A Day Women's Dha) 28 mg iron- 800 mcg combo pack Active PKG PO May 22, 2023 1:00amStart: 38-20-8314Srpttl94-Iron Fum-Folic Ac-Om3 (One A Day Women's Dha) 28 mg iron- 800 mcg combo pack Active PKG PO May 22, 2023 12:00ampromethazine hydrochloride 25 mg oral tablet (2 sources)PhenothiazineStart: 79-06-4699umrd 1 tablet by mouth every six hours [...] sources)Serotonin and Norepinephrine Reuptake InhibitorStart: 05-11-2017 End: 30-11-5791iuhc 1 tablet by mouth once daily, then take 1 tablet by mouth every twenty-four hoursDesvenlafaxine Succinate (Pristiq) 50 mg tablet extended release 24 hr Discontinued 50 MG PO Daily May 11, 2017 1:00am May 22, 2023 10:32amdicyclomine hydrochloride 20 mg oral tablet (2 sources)AnticholinergicStart: 29-62-2427bqmg 1 tablet by mouth every twelve hourslinaclotide 0.072 mg oral capsule (4 sources)Guanylate Cyclase-C AgonistStart: 05-11-2017 End: 22-00-9202vyom 1 capsule by mouth once dailyLinaclotide (Linzess) 72 mcg capsule Discontinued 72 MCG PO Daily May 11, 2017 1:00am May 12, 2017 8:46amLinzess 72 MCG Oral for 30 Not-Takinglubiprostone 0.008 mg oral capsule (4 sources)Chloride Channel ActivatorStart: 05-12-2017 End: 29-24-1423feiv 1 capsule by mouth twice dailyLubiprostone (Amitiza) 8 mcg Capsule Discontinued 8 MCG PO Twice daily May 12, 2017 1:00am May 22, 2023 10:32amtake 1 capsule by mouth every twelve hours Problems Active Problems Problem ClassificationProblemDateDocumented DateEpisodic/ChronicAbdominal pain (10 sources)Abdominal pain; Translations: [Unspecified abdominal pain]Onset: 23-79-5602SmuwathrEcjoiu (2 sources)Exacerbation of intermittent asthma; Translations: [Mild intermittent asthma with (acute) exacerbation]Onset: 01-27-2021 Resolved: 90-82-2610OxbxnjeLeuvclqihjxoz (1 source)Endometriosis, unspecified; Translations: [ENDOMETRIOSIS UNSPECIFIED] Onset: 14-56-4397AqpktraSawxqg infertility (4 sources)Female infertility associated with anovulation; Translations: [FE INFERTILITY ASSOC W/ANOVULATION]Onset: 61-21-8466UdtasqjNdjvruyfwopar symptoms and ill-defined conditions (2 sources)Stoma finding; Translations: [Unspecified cystostomy status] 71-83-7877ImceawjQhldebrp; including migraine (5 sources)Migraine, unspecified, not intractable, without status migrainosus; Translations: [MIGRAINE UNS NOTINTRACT W/O SM]Onset: 87-10-8733LcocagbNjqwnpupc disorders (11 sources)Amenorrhea, unspecified; Translations: [Irregular menstruation, unspecified]Onset: 53-02-0140IdxqznlWixsj aftercare (2 sources)Postoperative visit; Translations: [Encounter for other specified surgical aftercare]87-76-8364AfemofqwEbhql endocrine disorders (15 sources)Hypoglycemia; Translations: [Hypoglycemia, unspecified]Onset: 247609-66-8184UcdzvcvCkxwa endocrine disorders (2 sources)Polycystic ovary syndrome; Translations: [Polycystic ovarian syndrome]53-52-3637BjhipotIgjlh female genital disorders (2 sources)Abnormal vaginal bleeding; Translations: [Abnormal uterine and vaginal bleeding, unspecified]99-27-6032UhlmmofOimyp female genital disorders (4 sources)Noninflammatory disorder of ovary, fallopian tube and broad ligament, unspecified; Translations: [OTH NONINFL D/O OVARY TUBE AND BRD LIG]Onset: 57-22-5695TjfakcwjCvfeo gastrointestinal disorders (2 sources)Irritable bowel syndrome characterized by constipation; Translations: [Irritable bowel syndrome with constipation]ChronicOther gastrointestinal disorders (2 sources)Irritable bowel syndrome; Translations: [Mixed irritable bowel syndrome]ChronicOther gastrointestinal disorders (1 source)Mixed irritable bowel syndrome; Translations: [Irritable bowel syndrome with both constipation and diarrhea K58.2]Onset: 12-22-2020 Resolved: 83-73-4530EkihgreNyfmr gastrointestinal disorders (2 sources)Altered bowel function; Translations: [Change in bowel habit] 28-00-7714EfzcmihkFjbpmxk on above:Problem List clean-up per request of Phys. EHR CmteOther nutritional; endocrine; and metabolic disorders (5 sources)Metabolic syndrome; Translations: [METABOLIC SYNDROME]Onset: 39-18-5512HluzmsjZndhr nutritional; endocrine; and metabolic disorders (1 source)Weight loss; Translations: [Abnormal weight loss]99-23-2011Hotqvvsv Other nutritional; endocrine; and metabolic disorders (1 source)Weight decreased; Translations: [Abnormal weight loss]03-09-2023 EpisodicComment on above:Problem List clean-up per request of Phys. EHR Cmte Other screening for suspected conditions (not mental disorders or infectious disease) (6 sources)Other specified abnormal findings of blood chemistry; Translations: [Patient encounter status]Onset: 49-48-0940CqjksjqiQakoxpi cyst (11 sources)Unspecified ovarian cyst, left side; Translations: [Other ovarian cyst, right side]Onset: 99-01-9238UayzgccoCufsbfue codes; unclassified (2 sources)History of laparoscopy; Translations: [Other specified postprocedural states]86-23-2934BuawmlzcShmnbidtnbt; intervertebral disc disorders; other back problems (4 sources)Other cervical disc degeneration, unspecified cervical region; Translations: [OTH CERV DISC DEGENERATION UNS CERV]Onset: 12-23-9590Goaoobu Unclassified (4 sources)CONTACT W/AND (SUSP) EXPOS COVID-19; Translations: [CONTACT W/AND (SUSP) EXPOS COVID-19]Onset: 02-12-2022 Past or Other Problems Problem ClassificationProblemDateDocumented DateEpisodic/ChronicAcute bronchitis (5 sources)Acute bronchitis, unspecified; Translations: [ACUTE BRONCHITIS UNSPECIFIED]Onset: 40-90-6329OdfatvgqAmmdyapvtl and other anemia (15 sources)Anemia; Translations: [Anemia, unspecified]Onset: 05-26-2023 72-00-8756EjnncaqoNthpywhwtgsbh and screening for infectious disease (1 source)Contact with and (suspected) exposure to other viral communicable diseasesOnset: 01-27-2021 Resolved: 70-72-5062HztrhnukAdxmih and vomiting (2 sources)Nausea; Translations: [Nausea]EpisodicOther gastrointestinal disorders (2 sources)Constipation alternates with diarrhea; Translations: [Other specified symptoms and signs involving the digestive system and abdomen]EpisodicOther gastrointestinal disorders (4 sources)Abdominal distension (gaseous); Translations: [ABDOMINAL DISTENSION GASEOUS]Onset: 44-41-6213QfqwwfgcXxynn and delivery including normal (17 sources)Second trimester ; Translations: [Encounter for supervision of normal , unspecified, second trimester]Onset: 485017-34-5103 EpisodicOther upper respiratory infections (4 sources)Acute pharyngitis, unspecified; Translations: [ACUTE PHARYNGITIS UNSPECIFIED]Onset: 48-24-8965JdijqugiWvdvhaewibvknq and other problems of amniotic cavity (15 sources)Abnormal amniotic fluid; Translations: [Polyhydramnios, unspecified trimester, not applicable or unspecified]Onset: 835631-43-9335Ynqlaagw Residual codes; unclassified (15 sources)Gestation period, 32 weeks; Translations: [32 weeks gestation of ]Onset: 540795-08-5876TqkpzawuOohtzupqenqb (1 source)CONTACT W/AND (SUSP) EXPOS COVID-19; Translations: [CONTACT W/AND (SUSP) EXPOS COVID-19]Onset: 04-01-2022 Results Test NameValueInterpretationReference RangeFacilityALL CBC WITH AUTO DIFFon 90-12-9555PABAOESOU ABSOLUTE VUWO3ATSE HealthcareBasophils/100 WBC (Bld)0.3 %0.2 - 2.0 %NOMS HealthcareEosinophils/100 WBC (Bld)1.7 %0.9 - 7.0 %[facility] Erythrocyte distribution width (RBC) [Ratio]13 %11.0 - 15.0 %[facility] Hematocrit (Bld) [Volume fraction]37.4 %36.0 - 48.0 %NOMS HealthcareHemoglobin (Bld) [Mass/Vol]12.4 g/dL12.0 - 16.0 g/dLNOMS HealthcareIMMATURE GRANULOCYTES ABS AUTO0.03NOMS HealthcareImmature granulocytes/100 WBC (Bld)0.3 %0.0 - 0.5 % [facility] HospitalInterpretation and review of laboratory resultsAbnormalNONM HealthcareLYMPHOCYTES ABSOLUTE AUTO2.5NOMS HealthcareLymphocytes/100 WBC (Bld) 22.6 %20.5 - 60.0 %[facility] HospitalMCH (RBC) [Entitic mass]29.6 pg26.7 - 34.0 pg [facility] HospitalHC (RBC) [Mass/Vol]33.2 g/dL29.9 - 35.2 g/dLFreeman Neosho HospitalV (RBC) [Entitic vol]89.3 fL81.0 - 99.0 fLHannibal Regional HospitalMONOCYTES ABSOLUTE AUTO 1.1HighNONM HealthcareMonocytes/100 WBC (Bld)9.8 %1.7 - 12.0 %[facility] NEUTROPHILS ABSOLUTE AUTO7.2HighNONM HealthcareNeutrophils/100 WBC (Bld)65.3 % 43.0 - 75.0 %[facility] HospitalPlatelet mean volume (Bld) [Entitic vol]9.3 fLLow9.5 - 13.5 fLHannibal Regional HospitalTBH EO #0.2NOMS [facility] Christ HospitalTB KAM172CCRNSt. Luke's HospitalTB RBC4.19LowNOMercy Hospital St. [facility] HOA16QXHDSt. Luke's HospitalCLINISYNCNOMS HealthcareLon 09-13-2024 Specimen: [id number] Received: 09/13/24 Status: LESLEY Jones Num: [id number] Spec Type: Cytology Subm Dr: Ricardo Rodriguez Tissues: A CYST FLUID (LT OVARY FLUID) Procedures: HE/2, Gross/Micro L4, Cyto Prepstain, PAPSTN Age/ Patient Sex Location Account Attending Physician Kasandra Macias 28/ LABELL [id number] Ricardo Rodriguez SPEC NUM: [id number] RECD: 09/13/24 STATUS: LESLEY JONES NUM: [id number] BETHEL: 09/13/24 [facility] DR: Ricardo Rodriguez ENTERED: 09/13/24 [facility] DR: Shalini,Lab SPEC TYPE: Cytology DEPT: [facility] ENTERED BY: [id number] RECV BY: [id number] ORDERED: HE/2, Gross/Micro L4, Cyto Prepstain, PAPSTN [...] Description Microscopic examination is performed. CPT Codes 45087, 21381 Specimen: [id number] Received: 09/13/24 Status: LESLEY Jones Num: [id number] Spec Type: Cytology Subm Dr: Ricardo Rodriguez Tissues: A CYST FLUID (LT OVARY FLUID) Procedures: HE/2, Gross/Micro L4, Cyto Prepstain, PAPSTN Patient: Kasandra Macias [id number] (Continued) Signed (signature on file) Héctor Valverde MD 09/14/24 1017Normal [facility] 27-17-6796TTI [Catalytic activity/Vol]188 U/L81 - 234 U/LNOMS HealthcareCLINISYNCNOMS HealthcareUrine Cultureon 08-15-2024 Bacteria identified Cx Nom (U)<9,000 colonies/ml mixed bacterial skin contaminants 2 Days PERFORMED BY: [facility] [address] [place] [address] PATHOLOGIST COPY CUTTER GHAZAL TEIXEIRA M.D.NormalViera Hospital Physician GroupComment on above: Performed By: #### CUU #### [facility] [address] [place] [address] USAALL CBC WITH AUTO DIFFon 04-12-7725FBBLTBHRF ABSOLUTE AUTO 0NOMS HealthcareBasophils/100 WBC (Bld)0.5 %0.2 - 2.0 %[facility] Eosinophils/100 WBC (Bld)2.6 %0.9 - 7.0 %NOMS HealthcareErythrocyte distribution width (RBC) [Ratio]13.3 %11.0 - 15.0 %NOMS HealthcareHematocrit (Bld) [Volume fraction]39.2 %36.0 - 48.0 %NOMS HealthcareHemoglobin (Bld) [Mass/Vol]12.8 g/dL 12.0 - 16.0 g/dLNONM HealthcareIMMATURE GRANULOCYTES ABS AUTO0.02[facility] Immature granulocytes/100 WBC (Bld)0.3 %0.0 - 0.5 %NOMS HealthcareInterpretation and review of laboratory resultsAbnormalNOMS HealthcareLYMPHOCYTES ABSOLUTE AUTO1.7NOMS HealthcareLymphocytes/100 WBC (Bld)27.1 %20.5 - 60.0 %NOMS [facility] HospitalMCH (RBC) [Entitic mass]29.4 pg26.7 - 34.0 pgNOSt. Luke's HospitalMCHC (RBC) [Mass/Vol]32.7 g/dL29.9 - 35.2 g/dLNOSt. Luke's HospitalMCV (RBC) [Entitic vol]89.9 fL 81.0 - 99.0 fLNONM HealthcareMONOCYTES ABSOLUTE AUTO0.6[facility] Monocytes/100 WBC (Bld)9.9 %1.7 - 12.0 %NOMS HealthcareNEUTROPHILS ABSOLUTE AUTO 3.7NOMS HealthcareNeutrophils/100 WBC (Bld)59.6 %43.0 - 75.0 %[facility] Platelet mean volume (Bld) [Entitic vol]8.9 fLLow9.5 - 13.5 fLNOMS HealthcareTBH EO #0.2NOMS HealthcareTBH [id number] HealthcareTBH RBC4.36NOMS HealthcareTBH WBC 6.2NOMS HealthcareCLINISYNCNOMS HealthcareLaboratory - Microbiology and Antimicrobial susceptibilityOrdered By: Teresa Wilkins on 60-71-5093UTSZ-CoV-2 (COVID-19) RNA SHIRIN+probe Ql (Unsp spec)[facility] Urinalysis macro (dipstick) panel (U)on 94-25-6652Kmefwdcof, UANegativeNegative - 4(70) +++ mg/dLNOMS HealthcareBlood, UANegativeNegative [...] 1.03[facility] Urobilinogen, UA0.20.2 - 12 mg/dLNOMS The Christ HospitalNONM HealthcareCBC AUTO DIFFon 50-14-9930PANQ #0.0 103/ulNormal0.0-0.1The [facility] HospitalComment on above: Performed By: #### RF #### [facility] [address] [address] [address] Venkat Allisonsophils/100 WBC (Bld)0.5 %Normal0.2-2.0[facility] Comment on above:Performed By: #### RF #### [facility] [address] [place] [address] Dr. Venkat Willson #0.1 103/ulNormal0.0-0.7The [facility] HospitalComment on above: Performed By: #### RF #### [facility] [address] [place] [address] Dr. Venkat Lewosinophils/100 WBC (Bld)1.7 %Normal0.9-7.0[facility] Comment on above:Performed By: #### RF #### [facility] [address] [place] [address] Dr. Venkat Lewrythrocyte distribution width (RBC) [Ratio]12.7 %Gmtdva22.0-15.0 The Luther[facility] Hospitalment on above:Performed By: #### RF #### [facility] [address] [place] [address] Dr. Venkat SloanHematocrit (Bld) [Volume fraction]40.4 %Vbikey88.0-48.0The [facility] HospitalComment on above:Performed By: #### RF #### [facility] [address] [place] [address] Dr. Venkat SloanHemoglobin (Bld) [Mass/Vol]13.1 g/oHPonnfa60.0-16.0The [facility] Hospitalment on above:Performed By: #### RF #### [facility] [address] [place] [address] Dr. Venkat Monson #0.02 10e3/ulNormal0.00-0.03The [facility] HospitalComment on above:Performed By: #### RF #### [facility] [address] [place] [address] Dr. Venkat Monson %0.3 %Normal0.0-0.5The [facility] Hospitalment on above: Performed By: #### RF #### [facility] [address] [place] [address] Dr. Venkat PlazaH #2.0 103/ulNormal1.2-3.8The [facility] HospitalComment on above:Performed By: #### RF #### [facility] [address] [place] [address] Dr. Venkat Perezmphocytes/100 WBC (Bld)26.2 %Dchquk15.5-60.0The [facility] HospitalComment on above:Performed By: #### RF #### [facility] [address] [place] [address] Dr. Venkat SantosUAL DIFF REQNONormalThe [facility] HospitalComment on above: Performed By: #### RF #### [facility] [address] [place] [address] Dr. Venkat Kearns (RBC) [Entitic mass]28.4 msQeuciw77.7-34.0The [facility] HospitalComment on above:Performed By: #### RF #### [facility] [address] [place] [address] Dr. Venkat Kearns (RBC) [Mass/Vol]32.4 g/dDLagvft86.9-35.2The [facility] HospitalComment on above:Performed By: #### RF #### [facility] [address] [place] [address] Dr. Venkat Kearns (RBC) [Entitic vol]87.4 uPDheolt17.0-99.0The [facility] HospitalComment on above:Performed By: #### RF #### [facility] [address] [place] [address] Dr. Venkat Marte #0.7 103/ulNormal0.3-0.8The [facility] HospitalComment on above:Performed By: #### RF #### [facility] [address] [place] [address] Dr. Venkat Desaiocytes/100 WBC (Bld)8.8 %Normal1.7-12.0The [facility] on above:Performed By: #### RF #### [facility] [address] [place] [address] Dr. Venkat Lopez #4.8 103/ulNormal1.4-6.5The [facility] Hospitalment on above:Performed By: #### RF #### [facility] [address] [place] [address] Dr. Venkat Zhengutrophils/100 WBC (Bld)62.5 %Cojaiw00.0-75.0The [facility] on above:Performed By: #### RF #### [facility] [address] [place] [address] Dr. Venkat SloanPlatelet mean volume (Bld) [Entitic vol]8.5 fLCritically low 9.5-13.5The [facility] HospitalComment on above:Performed By: #### RF #### [facility] [address] [place] [address] Dr. Venkat SloanPLT331 103/dtPzfdqv568-414Fao Lutheran Hospitalment on above: Performed By: #### RF #### [facility] [address] [place] [address] Dr. Venkat SloanRBC4.62 106/ulNormal4.20-5.40The [facility] HospitalComment on above:Performed By: #### RF #### [facility] [address] [place] [address] Dr. Venkat SloanWBC7.7 103/ulNormal4.0-11.0The [facility] Hospitalment on above: Performed By: #### RF #### [facility] [address] [place] [address] Dr. Venkat Jaeger QUANT HCGon 62-31-9269GGH QUANT<1NormalThe [facility] Comment on above:Performed By: #### PREGQNT #### [facility] [address] [place] [address] Dr. Venkat Madrid RANGESEE [facility] HospitalComment on above: Result Comment: 5-50 0.2-1 WEEK 50-500 1-2 WEEKS 100-5,000 2-3 WEEKS 500-10,000 3-4 WEEKS 1,000-50,000 4-5 WEEKS 10,000-100,000 5-6 WEEKS 15,000-200,000 6-8 WEEKS 10,000-100,000 2-3 MONTHSPerformed By: #### PREGQNT #### [facility] [address] [place] [address] Dr. Venkat LynnGESTERONEon 39-60-7146Qqwrnntxkkbw6.7 ng/mLNOhioHealth Dublin Methodist HospitalComment on above:Result Comment: Follicular phase 0.1 - 0.9 Luteal phase 1.8 - 23.9 Ovulation phase 0.1 - 12.0 First trimester 11.0 - 44.3 Second trimester 25.4 - 83.3 Third trimester 58.7 - 214.0 Postmenopausal 0.0 - 0.1Performed By: #### TSH #### [facility] [address] [place] [address] Dr. Venkat Jaeger QUANT HCGon 69-27-2991KGO QUANT1 mIU/mLNOhioHealth Dublin Methodist HospitalComment on above:Performed By: #### PREGQNT #### [facility] [address] [place] [address] Dr. Venkat Madrid [facility] MD, Cancer CenterComment on above: Result Comment: 5-50 0.2-1 WEEK 50-500 1-2 WEEKS 100-5,000 2-3 WEEKS 500-10,000 3-4 WEEKS 1,000-50,000 4-5 WEEKS 10,000-100,000 5-6 WEEKS 15,000-200,000 6-8 WEEKS 10,000-100,000 2-3 MONTHSPerformed By: #### PREGQNT #### [facility] [address] [place] [address] Dr. Venkat LynnGESTERONEon 12-20-7477Tyotrrjnspbz77.4 ng/mLNOhioHealth Dublin Methodist HospitalComment on above:Result Comment: Follicular phase 0.1 - 0.9 Luteal phase 1.8 - 23.9 Ovulation phase 0.1 - 12.0 First trimester 11.0 - 44.3 Second trimester 25.4 - 83.3 Third trimester 58.7 - 214.0 Postmenopausal 0.0 - 0.1Performed By: #### INFLUAB #### [facility] [address] [place] [address] Dr. Venkat SloanMRI BRAIN WO W CONon 78-05-8293PEI BRAIN WO W CONEXAMINATION: MRI BRAIN WO [...] Electronically authenticated by: LAM MACHUCA Date: 2022-05-04 08:[address] [place], [place] [address]PREG QUANT HCGon 84-52-9879STQ QUANT<1NormalThe Newark HospitalComment on above:Performed By: #### RF #### [facility] [address] [place] [address] Dr. Venkat SloanG RANGESEE BELOWPaulding County HospitalComment on above: Result Comment: 5-50 0.2-1 WEEK 50-500 1-2 WEEKS 100-5,000 2-3 WEEKS 500-10,000 3-4 WEEKS 1,000-50,000 4-5 WEEKS 10,000-100,000 5-6 WEEKS 15,000-200,000 6-8 WEEKS 10,000-100,000 2-3 MONTHSPerformed By: #### RF #### [facility] [address] [place] [address] Dr. Venkat SloanXR HYSTEROSALPINGOGRAMon 28-28-2465EG HYSTEROSALPINGOGRAM EXAMINATION: XR HYSTEROSALPINGOGRAM HISTORY: Noninflammatory disorder [...] Electronically authenticated by: LAM MACHUCA Date: 2022-05-04 16:09Paulding County HospitalPROGESTERONEon 03-76-1386Tlhzfnshovdl2.4 ng/mLNormalCherrington HospitalComment on above:Result Comment: Follicular phase 0.1 - 0.9 Luteal phase 1.8 - 23.9 Ovulation phase 0.1 - 12.0 First trimester 11.0 - 44.3 Second trimester 25.4 - 83.3 Third trimester 58.7 - 214.0 Postmenopausal 0.0 - 0.1Performed By: #### INFLUAB #### [facility] [address] [place] [address] Dr. Venkat Chiu SPUTUMon 55-39-5325OYGRXQI SPUTUMCulture Observations: NORMAL RESPIRATORY NATALEE.NormalCherrington HospitalComment on above:Performed By: #### RF #### [facility] [address] [place] [address] Dr. Venkat Maza GRAM STAINon 27-48-4916DEWVAVANCkptthVij [facility] Comment on above:Performed By: #### RF #### [facility] [address] [place] [address] Dr. Venkat SegundoTHEROIDSPaulding County HospitalComment on above:Performed By: #### RF #### [facility] [address] [place] [address] Dr. Robledo ChangEPITHELIALS<25Paulding County HospitalComment on above: Performed By: #### RF #### [facility] [address] [place] [address] Dr. Venkat HuiAL ELEMENTSPaulding County HospitalComment on above: Performed By: #### RF #### [facility] [address] [address] [address] Venkat Sena NEG BACILLIRARENormalCherrington HospitalComment on above: Performed By: #### RF #### [facility] [address] [place] [address] Dr. Venkat Sena NEG DIPPLOCOCCINoHighland District HospitalComment on above: Performed By: #### RF #### [facility] [address] [address] [address] Venkat Sena POS BACILLINoHighland District HospitalComment on above: Performed By: #### RF #### [facility] [address] [place] [address] Dr. Venkat Sena POSITIVE COCCIRARENOhioHealth Dublin Methodist HospitalComment on above:Performed By: #### RF #### [facility] [address] [place] [address] Dr. Venkat Brandon (Bld) [#/Vol]10*3/uLNoHighland District HospitalComment on above:Performed By: #### RF #### [facility] [address] [place] [address] Dr. Venkat Ty-19 PCR ([facility])on 83-71-4300ZVIM-CoV-2 (COVID-19) RNA SHIRIN+probe Ql (Unsp spec)Not detectedNormalNOT DETECTEDCherrington Hospital Comment on above:Result Comment: This test is not yet approved or cleared by the [place] FDA. When there are no FDA-approved or cleared tests available, and other criteria are met, FDA can make tests available under an emergency access mechanism called an Emergency Use Authorization (EUA). The EUA for this test is supported by the [place] of Health and Human Service's (HHS's) declaration [...] consistent with SARS-CoV-2.Performed By: #### PREGQNT #### [facility] [address] [place] [address] Dr. Venkat Mixon AND B AGon 14-10-5379TQZOOOESMAKJGWright-Patterson Medical Center on above:Result Comment: Negative for Flu A protein angiten. Infection due to Flu A cannot be ruled out. FluA angiten in the sample may be below the detection limit of the test.Performed By: #### INFLUAB #### [address] [address] [address] Venkat QuachUBNEGWright-Patterson Medical Center on above: Result Comment: Negative for Flu B protein antigen. Infection due to Flu B cannot be ruled out. FluB antigen in the sample may be below the detection limit of the test.Performed By: #### INFLUAB #### [facility] [address] [place] [address] Dr. Venkat Mixon AGNegativeNormalNEGATIVE SEE COMMENTThe [facility] on above:Performed By: #### INFLUAB #### [address] [address] [address] Venkat Burton AGNegativeNormalNEGATIVE SEE COMMENTThe [facility] on above:Performed By: #### INFLUAB #### [facility] [address] [place] [address] Dr. Venkat SloanXR CHEST 2 Von 18-94-0484MH CHEST 2 VEXAM: XR CHEST 2 V HISTORY: . Acute bronchitis . COMPARISON: 03/10/2021 TECHNIQUE: Frontal and lateral chest FINDINGS: Heart and vascularity are unremarkable. Lungs are expanded and free of focal infiltrates. No acute bony abnormality is appreciated. IMPRESSION: No acute heart or lung disease identified. Electronically authenticated by: DUDLEY LANE Date: 2022-03-24 12:33NoHighland District HospitalCovid-19 PCR (CVDTB)on 90-28-5864QMJU-CoV-2 (COVID-19) RNA SHIRIN+probe Ql (Unsp spec)Not detectedNormalNOT DETECTEDCherrington Hospital Comment on above:Result Comment: When diagnostic [...] for this test is supported by the [place] of Health and Human Service's declaration that [...] longer be used).Performed By: #### RF #### [facility] [address] [place] [address] Dr. Venkat Mixon AND B AGon [id number] BELOWSelect Medical Specialty Hospital - Columbus Southment on above:Result Comment: Negative for Flu A protein angiten. Infection due to Flu A cannot be ruled out. FluA angiten in the sample may be below the detection limit of the test.Performed By: #### INFLUAB #### [facility] [address] [place] [address] Dr. Venkat QuachUBNEGHSMANISH BELOWOhioHealth Van Wert Hospital on above: Result Comment: Negative for Flu B protein antigen. Infection due to Flu B cannot be ruled out. FluB antigen in the sample may be below the detection limit of the test.Performed By: #### INFLUAB #### [facility] [address] [place] [address] Dr. Venkat Mixon AGNegativeNormalNEGATIVE SEE COMMENTThe [facility]ini HospitalComment on above:Performed By: #### INFLUAB #### [facility] [address] [address] [address] Venkat Burton AGNegativeNormalNEGATIVE SEE COMMENTThe [facility] HospitalComment on above:Performed By: #### INFLUAB #### [facility] [address] [place], [place] [address] Dr. Venkat SloanINTERNAL CONTROLSWithin Normal LimitsNormalWithin Normal Limits The [facility] HospitalComment on above:Performed By: #### INFLUAB #### [facility] [address] [address] [address] Venkat SloanCovid-19 PCR ([facility])on 40-83-4775HXIG-CoV-2 (COVID-19) RNA SHIRIN+probe Ql (Unsp spec)Not detectedNormalNOT DETECTEDThe [facility] Comment on above:Result Comment: When diagnostic [...] for this test is supported by the [place] of Health and Human Service's declaration that [...] longer be used).Performed By: #### INFLUAB #### [facility] [address] [place] [address] Dr. Venkat Mixon AND B AGon [id number] BELOWNoHighland District HospitalComment on above:Result Comment: Negative for Flu A protein angiten. Infection due to Flu A cannot be ruled out. FluA angiten in the sample may be below the detection limit of the test.Performed By: #### INFLUAB #### [facility] [address] [place] [address] Dr. Venkat Mead [facility]hes[facility] North HospitalComment on above: Result Comment: Negative for Flu B protein antigen. Infection due to Flu B cannot be ruled out. FluB antigen in the sample may be below the detection limit of the test.Performed By: #### INFLUAB #### [facility] [address] [place] [address] Dr. Venkat Mixon AGNegativeNormalNEGATIVE SEE COMMENTCherrington HospitalComment on above:Performed By: #### INFLUAB #### [facility] [address] [place] [address] Dr. Venkat Burton AGNegativeNormalNEGATIVE SEE COMMENTThe [facility] HospitalComment on above:Performed By: #### INFLUAB #### [facility] [address] [place] [address] Dr. Venkat SloanINTERNAL CONTROLSWithin Normal LimitsNormalWithin Normal Limits The [facility] HospitalComment on above:Performed By: #### INFLUAB #### [facility] [address] [place] [address] Dr. Venkat SloanPROGESTERONEon 24-88-5856Apaphzubquij0.3 ng/mLNormalCherrington HospitalComment on above:Result Comment: Follicular phase 0.1 - 0.9 Luteal phase 1.8 - 23.9 Ovulation phase 0.1 - 12.0 First trimester 11.0 - 44.3 Second trimester 25.4 - 83.3 Third trimester 58.7 - 214.0 Postmenopausal 0.0 - 0.1Performed By: #### RF #### [facility] [address] [place] [address] Dr. Venkat SloanACTH STIMULATIONon 79-49-6463Vdztrz Hkfiypcm43 ng/gVVucjmd70-000 The [facility] HospitalComment on above:Performed By: #### RF #### [facility] [address] [place] [address] Dr. Venkat Basilio Kwzobdmvqv14 ng/dLNormalNot Estab.[facility] Comment on above:Performed By: #### RF #### [facility] [address] [place] [address] Dr. Venkat SloanCovid-19 PCR ([facility])on 13-73-8107EFGX-CoV-2 (COVID-19) RNA SHIRIN+probe Ql (Unsp spec)Not detectedNormalNOT DETECTEDThe [facility] Comment on above:Result Comment: This test is not yet approved or cleared by the [place] FDA. When there are no FDA-approved or cleared tests available, and other criteria are met, FDA can make tests available under an emergency access mechanism called an Emergency Use Authorization (EUA). The EUA for this test is supported by the [place] of Health and Human Service's (HHS's) declaration [...] consistent with SARS-CoV-2.Performed By: #### INFLUAB #### [facility] [address] [place] [address] Dr. Venkat SloanINFLUENZA A AND B AGon 73-11-8773KQHZMBDSECPQO BELOWPaulding County HospitalComment on above:Result Comment: Negative for Flu A protein angiten. Infection due to Flu A cannot be ruled out. FluA angiten in the sample may be below the detection limit of the test.Performed By: #### PREGQNT #### [facility] [address] [place] [address] Dr. Venkat SloanINFLUBNEGHSAdena Regional Medical CenterComment on above: Result Comment: Negative for Flu B protein antigen. Infection due to Flu B cannot be ruled out. FluB antigen in the sample may be below the detection limit of the test.Performed By: #### PREGQNT #### [facility] [address] [place] [address] Dr. Venkat Mixon AGNegativeNormalNEGATIVE SEE COMMENTThe [facility] HospitalComment on above:Performed By: #### PREGQNT #### [facility] [address] [place] [address] Dr. Venkat Burton AGNegativeNormalNEGATIVE SEE COMMENTThe [facility] HospitalComment on above:Performed By: #### PREGQNT #### [facility] [address] [place] [address] Dr. Venkat SloanINTERNAL CONTROLSWithin Normal LimitsNormalWithin Normal Limits The [facility] HospitalComment on above:Performed By: #### PREGQNT #### [facility] [address] [place] [address] Dr. Venkat Diehl SERUMon 90-67-1596Pyrdkyhcqqycxqtvcbbgbs (DHEA)82 ng/dL Dechbg62-822LgzCherrington HospitalComment on above:Result Comment: Age 1 - 5 years 0 - 67 6 - 7 years 0 - 110 8 - 10 years 0 - 185 11 - 12 years 0 - 201 13 - 14 years 0 - 318 15 - 16 years 39 - 481 17 - 19 years 40 - 491 >19 years 31 - 701Performed By: #### TSH #### [facility] [address] [place] [address] Dr. Venkat Diehl-SULFATEon 22-27-4838KLAL-Nufqtph61.0 ug/dLCritically low 84.8-378.0The [facility] HospitalComment on above:Performed By: #### RF #### [facility] [address] [place] [address] Dr. Venkat Fuentes 24-31-2066XZO3.2 mIU/mLNormalThe [facility] HospitalComment on above:Result Comment: Adult Female: Follicular phase 3.5 - 12.5 Ovulation phase 4.7 - 21.5 Luteal phase 1.7 - 7.7 Postmenopausal 25.8 - 134.8Performed By: #### LBCFSH #### [facility] [address] [place] [address] Dr. Venkat SloanLUTEINIZING HORMONE (LH)on 55-76-5182JG1.1 mIU/mLNormalCherrington HospitalComment on above:Result Comment: Adult Female: Follicular phase 2.4 - 12.6 Ovulation phase 14.0 - 95.6 Luteal phase 1.0 - 11.4 Postmenopausal 7.7 - 58.5Performed By: #### INFLUAB #### [facility] [address] [place] [address] Dr. Venkat SloanPROLACTINon 25-50-3090Dqurnmnco8.0 ng/mLNormal4.8-23.3The [facility] HospitalComment on above:Performed By: #### PROLAC #### [facility] [address] [place] [address] Dr. Venkat SloanCBC AUTO DIFFon 26-18-6859HPEJ #0.0 103/ulNormal0.0-0.1Cherrington HospitalComment on above:Performed By: #### TSH #### [facility] [address] [place] [address] Dr. Venkat SloanBasophils/100 WBC (Bld)0.4 %Normal0.2-2.0[facility] Comment on above:Performed By: #### TSH #### [facility] [address] [place] [address] Dr. Venkat Willson #0.1 103/ulNormal0.0-0.7The [facility] HospitalComment on above: Performed By: #### TSH #### [facility] [address] [place] [address] Dr. Venkat Lewosinophils/100 WBC (Bld)1.2 %Normal0.9-7.0[facility] Comment on above:Performed By: #### TSH #### [facility] [address] [place] [address] Dr. Venkat Lewrythrocyte distribution width (RBC) [Ratio]12.7 %Ynvqlz16.0-15.0 The [facility] HospitalComment on above:Performed By: #### TSH #### [facility] [address] [place] [address] Dr. Venkat SloanHematocrit (Bld) [Volume fraction]41.1 %Wcityi83.0-48.0The [facility] HospitalComment on above:Performed By: #### TSH #### [facility] [address] [place] [address] Dr. Venkat SloanHemoglobin (Bld) [Mass/Vol]13.1 g/cZBwpczk26.0-16.0The [facility] HospitalComment on above:Performed By: #### TSH #### [facility] [address] [place] [address] Dr. Venkat SloanIG #0.03 10e3/ulNormal0.00-0.03The [facility] HospitalComment on above:Performed By: #### TSH #### [facility] [address] [place] [address] Dr. Venkat Monson %0.3 %Normal0.0-0.5The [facility] HospitalComment on above: Performed By: #### TSH #### [facility] [address] [place] [address] Dr. Venkat Urban #1.6 103/ulNormal1.2-3.8The [facility] HospitalComment on above:Performed By: #### TSH #### [facility] [address] [place] [address] Dr. Venkat Plazahocytes/100 WBC (Bld)15.0 %Critically low20.5-60.0The [facility] HospitalComment on above:Performed By: #### TSH #### [facility] [address] [place] [address] Dr. Venkat SantosUAL DIFF REQNONormalThe [facility] HospitalComment on above: Performed By: #### TSH #### [facility] [address] [place] [address] Dr. Venkat Peng (RBC) [Entitic mass]28.5 ofWecbyn47.7-34.0The [facility] HospitalComment on above:Performed By: #### TSH #### [facility] [address] [place] [address] Dr. Venkat Kearns (RBC) [Mass/Vol]31.9 g/zJPoanif31.9-35.2The [facility] HospitalComment on above:Performed By: #### TSH #### [facility] [address] [place] [address] Dr. Venkat Brennan (RBC) [Entitic vol]89.3 gSOrtcqi94.0-99.0The [facility] HospitalComment on above:Performed By: #### TSH #### [facility] [address] [place] [address] Dr. Venkat Marte #0.9 103/ulCritically high0.3-0.8[facility] Comment on above:Performed By: #### TSH #### [facility] [address] [place] [address] Dr. Venkat Desaiocytes/100 WBC (Bld)8.8 %Normal1.7-12.0[facility] Comment on above:Performed By: #### TSH #### [facility] [address] [place] [address] Dr. Venkat Lopez #7.9 103/ulCritically high1.4-6.5[facility] Comment on above:Performed By: #### TSH #### [facility] [address] [place] [address] Dr. Venkat Zhengutrophils/100 WBC (Bld)74.3 %Ellnmd09.0-75.0The [facility] HospitalComment on above:Performed By: #### TSH #### [facility] [address] [place] [address] Dr. Venkat Robles mean volume (Bld) [Entitic vol]9.2 fLCritically low 9.5-13.5The [facility] HospitalComment on above:Performed By: #### TSH #### [facility] [address] [place] [address] Dr. Venkat SloanPLT300 103/dyBisnkf733-741Odz [facility] on above: Performed By: #### TSH #### [facility] [address] [place] [address] Dr. Venkat SloanRBC4.60 106/ulNormal4.20-5.40The [facility] HospitalComaspirus iron river hospital on above:Performed By: #### TSH #### [facility] [address] [address] [address] Venkat SloanWBC10.7 103/ulNormal4.0-11.0The [facility] on above:Performed By: #### TSH #### [facility] [address] [place] [address] Dr. Venkat SloanGLYCOHEMOGLOBIN A1Con 21-52-4086HIB RECOMMENDATIONSEE BELOWNormal The [facility] HospitalComaspirus [facility] on above:Result Comment: ADA RECOMMENDED LIMIT 4.0 - 6.0 ADA THERAPEUTIC TARGET < 7.0 ACTION SUGGESTED > 7.0Performed By: #### PREGQNT #### [facility] [address] [place] [address] Dr. Venkat SloanGlucose [Mass/Vol]100 mg/dLNoHighland District HospitalComaspirus iron river hospital on above:Performed By: #### PREGQNT #### [facility] [address] [place] [address] Dr. Venkat SloanHbA1c (Bld) [Mass fraction]5.1 %Normal4.5-6.2The [facility] on above:Performed By: #### PREGQNT #### [facility] [address] [place] [address] Dr. Venkat Payne 37-92-4702LZX1.098 uIU/mLNormal0.358-3.740The [facility] on above:Performed By: #### TSH #### [facility] [address] [place] [address] Dr. Venkat SloanCovid-19 PCR (CVDTBH)on 86-55-6070BABR-CoV-2 (COVID-19) RNA SHIRIN+probe Ql (Unsp spec)Not detectedNormalNOT DETECTEDCherrington Hospital Comment on above:Result Comment: This test is not yet approved or cleared by the [place] FDA. When there are no FDA-approved or cleared tests available, and other criteria are met, FDA can make tests available under an emergency access mechanism called an Emergency Use Authorization (EUA). The EUA for this test is supported by the [place] of Health and Human Service's (HHS's) declaration [...] consistent with SARS-CoV-2.Performed By: #### INFLUAB #### [facility] [address] [place] [address] Dr. Venkat SloanPRERj QUANT HCGon 48-03-7118ARS QUANT<1NormalCherrington Hospital Comment on above:Performed By: #### PREGQNT #### [facility] [address] [place] [address] Dr. Venkat Madrid [facility], MD, Cancer CenterComment on above: Result Comment: 5-50 0.2-1 WEEK 50-500 1-2 WEEKS 100-5,000 2-3 WEEKS 500-10,000 3-4 WEEKS 1,000-50,000 4-5 WEEKS 10,000-100,000 5-6 WEEKS 15,000-200,000 6-8 WEEKS 10,000-100,000 2-3 MONTHSPerformed By: #### PREGQNT #### [facility] [address] [place] [address] Dr. Venkat Madrid-BETA SUBUNIT QUANTon 99-22-7378uQH,Beta Subunit,Qnt,Serum<1 NormalCherrington HospitalComment on above:Result Comment: Female (Non- ) 0 - 5 (Postmenopausal) 0 - 8 . Female () Weeks of Gestation 3 6 - 71 4 10 - 750 5 198 - 4013 6 438 - 70863 7 0085 -166217 8 32015 -379640 9 18790 -668549 10 41446 -735477 12 33439 -387712 14 85471 - 69463 15 42229 - 27579 16 1709 - 87507 17 6087 - 04172 18 4780 - 71204 Aj ECLIA methodologyPerformed By: #### TSH #### [facility] [address] [place] [address] Dr. Venkat Marina by IFAon 38-33-1677Wjmmhjxfqlb Antibodies, IFANegativeNormal The [facility] HospitalComment on above:Result Comment: Negative <1:80 Borderline 1:80 Positive >1:80 ICAP nomenclature: AC-0 For more information about Hep-2 cell patterns use ANApatterns.org, the official website for the International Consensus on Antinuclear Antibody (BRETT) Patterns (ICAP).Performed By: #### ANAIFA #### [facility] [address] [place] [address] Dr. Venkat SloanINSULINon 38-06-7116Lxvvntp07.1 uIU/mLNormal2.6-24.9The [facility] HospitalComment on above:Performed By: #### TSH #### [facility] [address] [place] [address] Dr. Venkat SloanANTISTREPTOLYSIN O AB (ASO)on 21-86-8062Vibmypfmcbggnhvm O Ab <20.3Lihwhe1.0-200.0The [facility] HospitalComment on above:Performed By: #### PREGQNT #### [facility] [address] [place] [address] Dr. Venkat SloanRHEUMATOID FACTORon 26-20-0225MB Latex Turbid.<10.0Normal<14.0The [facility] HospitalComment on above:Performed By: #### RF #### [facility] [address] [place] [address] DrGeetha Combs AUTO DIFFon 81-72-2753OWXZ #0.0 103/ulNormal0.0-0.1The [facility] HospitalComment on above:Performed By: #### TSH #### [facility] [address] [place] [address] Dr. Venkat SloanBasophils/100 WBC (Bld)0.3 %Normal0.2-2.0[facility] Comment on above:Performed By: #### TSH #### [facility] [address] [place] [address] Dr. Venkat Willson #0.1 103/ulNormal0.0-0.7The [facility] HospitalComment on above: Performed By: #### TSH #### [facility] [address] [place] [address] Dr. Venkat Lewosinophils/100 WBC (Bld)1.8 %Normal0.9-7.0[facility] Comment on above:Performed By: #### TSH #### [facility] [address] [place] [address] Dr. Venkat Lewrythrocyte distribution width (RBC) [Ratio]12.9 %Rwexbw40.0-15.0 The [facility] HospitalComment on above:Performed By: #### TSH #### [facility] [address] [place] [address] Dr. Venkat SloanHematocrit (Bld) [Volume fraction]39.8 %Bpvuah44.0-48.0The [facility] HospitalComment on above:Performed By: #### TSH #### [facility] [address] [place] [address] Dr. Venkat SloanHemoglobin (Bld) [Mass/Vol]12.7 g/mWUjvlnb85.0-16.0The [facility] HospitalComment on above:Performed By: #### TSH #### [facility] [address] [place] [address] Dr. Venkat Monson #0.02 10e3/ulNormal0.00-0.03The [facility] HospitalComment on above:Performed By: #### TSH #### [facility] [address] [address] [address] Venkat Monson %0.3 %Normal0.0-0.5The [facility] on above: Performed By: #### TSH #### [facility] [address] [place] [address] Dr. Venkat PerezBradly #1.5 103/ulNormal1.2-3.8The [facility] HospitalComment on above:Performed By: #### TSH #### [facility] [address] [place] [address] Dr. Venkat Plazahocytes/100 WBC (Bld)21.5 %Ncuvir01.5-60.0The [facility] on above:Performed By: #### TSH #### [facility] [address] [place] [address] Dr. Venkat SantosUAL DIFF REQNONormalThe [facility] HospitalComment on above: Performed By: #### TSH #### [facility] [address] [place] [address] Dr. Venkat eKarns (RBC) [Entitic mass]28.5 rhCorwrh82.7-34.0The [facility] on above:Performed By: #### TSH #### [facility] [address] [place] [address] Dr. Venkat Kearns (RBC) [Mass/Vol]31.9 g/cADyrmfc72.9-35.2The [facility] on above:Performed By: #### TSH #### [facility] [address] [place] [address] Dr. Venkat Kearns (RBC) [Entitic vol]89.2 aZPakrep97.0-99.0The [facility] on above:Performed By: #### TSH #### [facility] [address] [place] [address] Dr. Venkat Marte #0.5 103/ulNormal0.3-0.8The [facility] HospitalComment on above:Performed By: #### TSH #### [facility] [address] [place] [address] Dr. Venkat Desaiocytes/100 WBC (Bld)7.6 %Normal1.7-12.0[facility] Comment on above:Performed By: #### TSH #### [facility] [address] [place] [address] Dr. Venkat ZhengUT #4.9 103/ulNormal1.4-6.5The [facility] HospitalComment on above:Performed By: #### TSH #### [facility] [address] [place] [address] Dr. Venkat Zhengutrophils/100 WBC (Bld)68.5 %Habnyd43.0-75.0The [facility] HospitalComment on above:Performed By: #### TSH #### [facility] [address] [place] [address] Dr. Venkat Kellylet mean volume (Bld) [Entitic vol]8.8 fLCritically low 9.5-13.5The [facility] HospitalComment on above:Performed By: #### TSH #### [facility] [address] [place] [address] Dr. Venkat SloanPLT297 103/vhWpijmu880-453Rsh [facility] HospitalComment on above: Performed By: #### TSH #### [facility] [address] [place] [address] Dr. Venkat SloanRBC4.46 106/ulNormal4.20-5.40The [facility] HospitalComment on above:Performed By: #### TSH #### [facility] [address] [place] [address] Dr. Venkat SloanWBC7.1 103/ulNormal4.0-11.0The [facility] HospitalComment on above: Performed By: #### TSH #### [facility] [address] [place] [address] Dr. Venkat Juan 57-04-0068SIO [Mass/Vol]mg/LNormal<=1.0The [facility] HospitalComment on above:Performed By: #### PREGQNT #### [facility] [address] [address] [address] Venkat Cornejo THYROXINE INDEX T7on 71-53-6781VUL4.78Xxcqyy3.30-4.50The [facility] HospitalComaspirus [facility] on above:Performed By: #### PREGQNT #### [facility] [address] [place] [address] Dr. Venkat SloanT3U33.0 %Dnrvgz18.0-39.0The [facility] HospitalComment on above: Performed By: #### PREGQNT #### [facility] [address] [place] [address] Dr. Venkat SloanT4 [Mass/Vol]8.20 ug/dLNormal4.80-13.90[facility] Comment on above:Performed By: #### PREGQNT #### [facility] [address] [place] [address] Dr. Venkat SloanGLYCOHEMOGLOBIN A1Con 67-45-5101NAB RECOMMENDATIONSEE BELOWNormal The [facility] HospitalComaspirus [facility] on above:Result Comment: ADA RECOMMENDED LIMIT 4.0 - 6.0 ADA THERAPEUTIC TARGET < 7.0 ACTION SUGGESTED > 7.0Performed By: #### INFLUAB #### [facility] [address] [place] [address] Dr. Venkat SloanGlucose [Mass/Vol]105 mg/dLNormalThe [facility] on above:Performed By: #### INFLUAB #### [facility] [address] [place] [address] Dr. Venkat SloanHbA1c (Bld) [Mass fraction]5.3 %Normal4.5-6.2The [facility] HospitalComment on above:Performed By: #### INFLUAB #### [facility] [address] [place] [address] Dr. Venkat Fernandes 52-21-6958Vadd [Mass/Vol]49.0 ug/dLCritically low 50.0-170.0The [facility] HospitalComasp[facility] on above:Performed By: #### PREGQNT #### [facility] [address] [address] [address] Venkat SloanLIPID PROFILEon 06-66-4144LBUP-HDL RATIO NORMSAdena Regional Medical CenterComment on above:Result Comment: 3.3 - 4.4 LOW RISK 4.4 - 7.1 AVERAGE RISK 7.1 - 11.0 MODERATE RISK >11.0 HIGH RISKPerformed By: #### PREGQNT #### [facility] [address] [address] [address] Venkat SloanCholesterol [Mass/Vol]197 mg/dLNormal<=200[facility] Comment on above:Performed By: #### PREGQNT #### [facility] [address] [place] [address] Dr. Venkat SloanCholesterol in HDL [Mass/Vol]64 mg/dLCritically nlsn15-77ZuiCherrington HospitalComment on above:Performed By: #### PREGQNT #### [facility] [address] [address] [address] Venkat SloanCholesterol in LDL [Mass/Vol]123.4 mg/dLPaulding County HospitalComment on above:Performed By: #### PREGQNT #### [facility] [address] [place] [address] Dr. Venkat Jensenesteremiliano.total/Cholesterol in HDL [Mass ratio]3.1 {ratio} NormalCherrington HospitalComment on above:Performed By: #### PREGQNT #### [facility] [address] [place] [address] Dr. Venkat Krueger NORMAL> or = 60 mg/dl - LOW CARDIOVASCULAR RISK <40 mg/dl - HIGH CARDIOVASCULAR RISKPaulding County HospitalComment on above:Performed By: #### PREGQNT #### [facility] [address] [place] [address] Dr. Venkat SloanLDL CALC NORMALSEE [facility] HospitalComment on above:Result Comment: <100 mg/dl OPTIMAL 100 - 129 mg/dl NEAR OR ABOVE OPTIMAL 130 - 159 mg/dl BORDERLINE HIGH 160 - 189 mg/dl HIGH >190 mg/dl VERY HIGH Performed By: #### PREGQNT #### [facility] [address] [address] [address] Venkat SloanTriglyceride [Mass/Vol]48 mg/dLNormal<=150[facility] Comment on above:Performed By: #### PREGQNT #### [facility] [address] [address] [address] Venkat SloanVLDL CALC9.6 mg/dLNormalThe [facility] HospitalComment on above: Performed By: #### PREGQNT #### [facility] [address] [place] [address] Dr. Venkat SloanPROF 14(COMP METB)on 88-72-8384Yzlfpvb [Mass/Vol]4.0 g/dLNormal 3.4-5.0The [facility] HospitalComment on above:Performed By: #### INFLUAB #### [facility] [address] [place] [address] Dr. Venkat SloanAlbumin/Globulin [Mass ratio]1.3 {ratio}NormalThe Newark HospitalComment on above:Performed By: #### INFLUAB #### [facility] [address] [place] [address] Dr. Venkat Hilliard [Catalytic activity/Vol]58 U/NFaeudj42-107Xzu [facility] HospitalComment on above:Performed By: #### INFLUAB #### [facility] [address] [place] [address] Dr. Venkat Da Silva [Catalytic activity/Vol]20 U/ZRchobj08-87Ods [facility] HospitalComment on above:Performed By: #### INFLUAB #### [facility] [address] [place] [address] Dr. Venkat Ruiz gap [Moles/Vol]10.4 mmol/LNormalThe [facility] Comment on above:Performed By: #### INFLUAB #### [facility] [address] [place] [address] Dr. Venkat SloanAST [Catalytic activity/Vol]11 U/LCritically xnx73-30Gqx [facility] HospitalComment on above:Performed By: #### INFLUAB #### [facility] [address] [address] [address] Venkat SloanBilirubin [Mass/Vol]0.8 mg/dLNormal0.2-1.0[facility] Comment on above:Performed By: #### INFLUAB #### [facility] [address] [address] [address] Venkat SloanCalcium [Mass/Vol]9.0 mg/dLNormal8.5-10.1[facility] Comment on above:Performed By: #### INFLUAB #### [facility] [address] [place] [address] Dr. Venkat SloanChloride [Moles/Vol]106 mmol/FPzypqn03-756HxcCherrington Hospital Comment on above:Performed By: #### INFLUAB #### [facility] [address] [place] [address] Dr. Venkat SloanCO2 [Moles/Vol]27.0 mmol/NRdjtav08.0-32.0[facility] Comment on above:Performed By: #### INFLUAB #### [facility] [address] [place] [address] Dr. Venkat SloanCreatinine [Mass/Vol]0.70 mg/dLNormal0.55-1.02The [facility] HospitalComment on above:Performed By: #### INFLUAB #### [facility] [address] [place] [address] Dr. Venkat LewGFR-AF AZERBAIJANI>60Normal>=60The [facility] HospitalComment on above:Performed By: #### INFLUAB #### [facility] [address] [place] [address] Dr. Venkat LewGFR-NON AF AZERBAIJANI>60Normal>=60The [facility] HospitalComment on above:Performed By: #### INFLUAB #### [facility] [address] [place] [address] Dr. Venkat SloanGlobulin (S) [Mass/Vol]3.2 g/dLNormalThe [facility] HospitalComment on above:Performed By: #### INFLUAB #### [facility] [address] [address] [address] Venkat SloanGlucose [Mass/Vol]92 mg/cHZjkwll68-305PomCherrington Hospital Comment on above:Performed By: #### INFLUAB #### [facility] [address] [address] [address] Venkat SloanPotassium [Moles/Vol]4.4 mmol/LNormal3.5-5.1[facility] Comment on above:Performed By: #### INFLUAB #### [facility] [address] [address] [address] Venkat SloanProtein [Mass/Vol]7.2 g/dLNormal6.4-8.2[facility] Comment on above:Performed By: #### INFLUAB #### [facility] [address] [address] [address] Venkat SloanSodium [Moles/Vol]139 mmol/ZMvhcoj941-756NguCherrington Hospital Comment on above:Performed By: #### INFLUAB #### [facility] [address] [address] [address] Venkat SloanUrea nitrogen [Mass/Vol]13.0 mg/dLNormal7.0-18.0C[facility]rington HospitalComment on above:Performed By: #### INFLUAB #### [facility] [address] [address] [address] Venkat SloanUrea nitrogen/Creatinine [Mass ratio]18.6 mg/mgNoHighland District HospitalComment on above:Performed By: #### INFLUAB #### [facility] [address] [address] [address] Venkat ValdiviaHojanelle 08-42-4918PZO1.318 uIU/mLNormal0.358-3.740[facility] HospitalComment on above:Performed By: #### PREGQNT #### [facility] [address] [address] [address] Venkat SloanURIC ACID SERUMon 28-86-7664Fmpko [Mass/Vol]3.9 mg/dLNormal 2.6-6.0[facility] HospitalComment on above:Performed By: #### PREGQNT #### [facility] [address] [place], [place] [address] Dr. Venkat SloanXR CSPINE MIN 4 VIEWSon 85-77-9235UT CSPINE MIN 4 VIEWS EXAMINATION: XR CSPINE MIN 4 VIEWS HISTORY: Cervical radiculopathy COMPARISON: No relevant comparison available. FINDINGS: BONES: Normal. No significant spondylosis, scoliosis, fracture, or visible bony lesion. DISC SPACES: Normal. No significant disc height narrowing, subluxation, or endplate abnormality. PARASPINOUS: Negative. No paraspinous abnormality is seen. OTHER: Negative. IMPRESSION: No acute disease. Electronically authenticated by: DUDLEY HERNÁNDEZ Date: 2021-09-24 21:[address] [place], [place] [address]PREG QUANT HCGon 65-65-1334XEC QUANT<1NormalThe Newark HospitalComment on above:Performed By: #### INFLUAB #### [facility] [address] [place] [address] Dr. Venkat SloanHCG RANGESEE BELOWPaulding County HospitalComment on above: Result Comment: 5-50 0-1 WEEK 40-300 1-2 WEEKS 100-1,000 2-3 WEEKS 500-6,000 3-4 WEEKS 5,000-200,000 1-2 MONTHS 10,000-100,000 2-3 MONTHS 3,000-50,000 2ND TRIMESTER 1,000-50,000 3RD TRIMESTERPerformed By: #### INFLUAB #### [facility] [address] [place] [address] Dr. Venkat SloanUS PELVIS AND TRANSVAGon 27-03-0668OC PELVIS AND TRANSVAG EXAMINATION: US PELVIS AND [...] Electronically authenticated by: DUDLEY HERNÁNDEZ Date: 2021-08-17 07:01Paulding County HospitalCOVID Quick Testingon 59-67-9774GjaudxPycqkovjTumkz [employer] Other Vital Signs Date TimeVital SignValuePerforming TxqdosjanOgebfztx72-06-4619 11:01-0400Body mass index (BMI) [Ratio]26.45 kg/m2Josi VILLARREAL Work Phone: [facility] HospitalXhsvtyefrz78-03-1233 11:01-0400Body wlvula90.5 kg Josi VILLARREAL Work Phone: [facility] HospitalSfoelaxxef90-17-3630 11:01-0400Diastolic blood mrollnio02 mm[Hg]Josi VILLARREAL Work Phone: [phone] HospitalMmalmfuhwr64-34-9091 11:01-0400Systolic blood mm[Hg]Josi VILLARREAL Work Phone: [phone] HospitalWqsqwwzyvs76-92-3213 14:22-0400Body mass index (BMI) [Ratio]27.55 kg/i7Dhxse Jennifer DO Work Phone: NOSt. Luke's HospitalUazdmumjvi49-40-2222 14:22-0400Body yqljbt25.13 kgCorey Jennifer DO Work Phone: [facility] HospitalXnpohxdlvv67-70-9717 14:22-0400Diastolic blood ibnwqxro00 mm[Hg]Ricardo Jennifer DO Work Phone: CellARideSt. Luke's HospitalQyifrpaswr61-18-5322 14:22-0400Systolic blood lurivhqi286 mm[Hg]Ricardo Jennifer DO Work Phone: [facility] HospitalFimrvyzale77-98-0332 10:41-0400Body mass index (BMI) [Ratio]27.93 kg/m2Josi Negroedel VILLARREAL Work Phone: [facility] HospitalKnvxsphdaq18-33-8566 10:41-0400Body bdajdp96.04 kgJosi Negroedel VILLARREAL Work Phone: [facility] HospitalAwhihshgjp62-32-2652 10:41-0400Diastolic blood zrvbgazc59 mm[Hg]Josi Negroedel VILLARREAL Work Phone: [facility] HospitalCntlxvjosj69-63-8150 10:41-0400Systolic blood mpledywb831 mm[Hg]Josi Negroedel VILLARREAL Work Phone: [facility] HospitalHosawcrsuk81-89-7378 12:02-0400Body mass index (BMI) [Ratio]27.78 kg/o6Hwqvp Jennifer DO Work Phone: [facility] HospitalOqjkrnpdqj99-92-2903 12:02-0400Body dpnipq19.68 kgCorey Jennifer DO Work Phone: [facility] HospitalPlgpegjuah56-29-0855 12:02-0400Diastolic blood lfnypmmc33 mm[Hg]Ricardo Jennifer DO Work Phone: [facility] HospitalOcrzysftcs77-61-1295 12:02-0400Systolic blood bagmnjjq023 mm[Hg]Ricardo Jennifer DO Work Phone: [facility] HospitalTglwowjwnd47-43-3380 09:27-0500Body .94 cm[facility]02-[facility]-2024 09:27-0500Body mass index (BMI) [Ratio]30.8 kg/b5MfkbndmekEast [facility] City Hospital02-25-2024 09:27-0500Body zhpyluwcloj14.1 [degF][facility]02-25-2024 09:27-0500Body .04 kg[facility]02-25-2024 09:27-0500Heart rate 78 /[facility]02-25-2024 09:27-0500Respiratory rate16 /[facility]02-25-2024 09:27-6017HqW3% (BldA) [Mass fraction]98 %[facility]02-13-2024 15:14-0500Body mass index (BMI) [Ratio]30.04 kg/x4Ycbsr Jennifer DO Work Phone: [facility] HospitalGjcvpmtzfq97-87-0275 15:14-0500Body uddbmx22.12 kgCorey Jennifer DO Work Phone: [facility] HospitalIhvpvmuxln36-47-1074 15:14-0500Diastolic blood dlegzqap17 mm[Hg]Ricardo Jennifer DO Work Phone: [facility] HospitalMalhqnfkfc89-19-6398 15:14-0500Systolic blood rtwcwjja998 mm[Hg]Ricardo Jennifer DO Work Phone: [facility] Oowmsmqxwn51-19-7572 18:45-0400Body rvjuoq708.94 cmSjoe Martinez Other [employer] Other 11-02-2021 18:45-0400Body mass index (BMI) [Ratio] 28.34 kg/c6Vwhkkbywkmarco Martinez Other [employer] Other 11-02-2021 18:45-0400Body qepwhjftsjd82.4 [degF] Mohini Martinez Other [employer] Other 11-02-2021 18:45-0400Body .04 kgStmarco Martinez Other [employer] Other 11-02-2021 18:45-0400Respiratory rate18 /minSjoe Martinez Other [employer] Other 11-02-2021 18:45-8357FwI5% (BldA) [Mass fraction]99 % Mohini Martinez Other [employer] Other 09-27-2021 11:45-0400Body lbtexi778.94 cmDavicata Freeman Other [facility] [employer] Other 09-27-2021 11:45-0400Body mass index (BMI) [Ratio] 28.34 kg/h4Ionbl Lydia Other [facility] [employer] Other 09-27-2021 11:45-0400Body pfrqoe35.04 kgDavid Lydia Other [employer] Other Encounters Encounter DateEncounter TypeCare ProviderFacilityStart: 09-24-2024 End: 68-20-0005Apogxc Meaghan VILLARREAL Work Phone: n[facility] BCP OBStart: 09-24-2024 End: 13-24-4848Yqlaqn Meaghan VILLARREAL Work Phone: [facility] BCP OBStart: 09-24-2024 End: 56-81-0457gbvvezgncuYIT RAMEYNot AvailableStart: 09-24-2024 End: 60-02-8063Obpuvq follow up visit related to original Marianela VILLARREAL Work Phone: n[facility] BCP OBComment on above:Postoperative visit; S/P laparoscopy; Cystostomy status (HCC)Start: 09-13-2024 End: 38-32-9726Jabsgxtvq Result EncounterCorey Jennifer DO Work Phone: noms External Department UnsolicitedStart: 09-13-2024 End: 69-92-8079Pduagokgi Result EncounterCorey Jennifer DO Work Phone: noms External Department UnsolicitedStart: 09-13-2024 End: 61-53-4944axoyehtjymPvvfl FazioFacility:[facility] Start: 08-28-2024 End: 70-99-5177arrzogtavdNVGXK FAZIONot AvailableStart: 08-28-2024 End: 17-46-4443Qqyvuc outpatient visit 15 minutesCorey Jennifer DO Work Phone: [facility] BCP OBComment on above:Pre-op examination; Cyst of right ovary; Complex ovarian cyst; Pelvic painStart: 08-28-2024 End: 58-26-1943Tzkltowfnvkbu examination doneCorey Jennifer DO Work Phone: [facility] HealthcareStart: 08-27-2024 End: 91-48-4470Lseiizwhn Result EncounterAmy Genie VILLARREAL Work Phone: [facility] External Department UnsolicitedStart: 08-27-2024 End: 74-00-6140Uiokjhzeb Result EncounterAmy Genie VILLARREAL Work Phone: [facility] External Department UnsolicitedStart: 08-21-2024 End: 82-80-7574Usfizn flowsheetAmy Genie PA Work Phone: [facility] BCP OBStart: 08-21-2024 End: 44-02-6533Zotktq flowsheetAmy [place] PA Work Phone: [facility] BCP OBStart: 08-21-2024 End: 33-62-1841Ghhrit outpatient visit 15 minutesAmy Genie VILLARREAL Work Phone: [facility] BCP OBComment on above:Cyst of right ovary; Complex ovarian cystStart: 08-21-2024 End: 80-55-2673hnvnsqyymfXJT RAMEYNot AvailableStart: 08-15-2024 End: 92-45-3232fgosvrfcipOmalpxd [facility]a [facility] Work Phone: Start: 08-15-2024 End: 80-13-6621Qevdrgaq ReferredMelissa Marker DO Work Phone: [facility] Path Spec [facility] HospStart: 07-19-2024 End: 32-75-9366Xtpaux outpatient visit 15 minutesCorey Jennifer DO Work Phone: [facility] BCP OBComment on above:Irregular periods/menstrual cycles; Pelvic pain in femaleStart: 07-19-2024 End: 48-36-3713nrmrfphxjfEJVEL FAZIONot AvailableStart: 06-28-2024 End: 51-33-2558Ofaemgkpw Result EncounterCorey Jennifer DO Work Phone: NOBD External Department UnsolicitedStart: 06-28-2024 End: 52-54-7627Ooiedtzqx Result EncounterCorey Jennifer DO Work Phone: [facility] External Department UnsolicitedStart: 03-01-2024 End: 02-47-6184Yvpkbj flowsheetCorey Jennifer DO Work Phone: [facility] BCP OBStart: 03-01-2024 End: 46-98-2809Vbdlxj flowsheetCorey Jennifer DO Work Phone: [facility] BCP OBStart: 03-01-2024 End: 08-04-6370Zedgnk outpatient visit 15 minutesCorey Jennifer DO Work Phone: [facility] BCP OBComment on above:Abnormal vaginal bleeding; PCOS (polycystic ovarian syndrome)Start: 03-01-2024 End: 63-45-7648uvzaoernmzTEFGY FAZIONot AvailableStart: 09-26-2023 End: 87-82-3099ncolkgxxmiTLVDE FAZIONot AvailableStart: 05-22-2023 End: 94-76-9089vuojllwnfqLsqxekojwRegency Hospital Company Work Phone: Start: 05-22-2023 End: 84-99-6540Hodcgmm encounter procedureUnc Health [facility] Work Phone: Start: 05-10-2023 End: 43-94-3174Iqiheddy flow sheetCorey Jennifer DO Work Phone: noMS BCP OBComment on above:Second trimester ; Diabetes mellitus screeningStart: 56-95-9321Nilimtyhs for other preprocedural examinationDR RICARDO RODRIGUEZ .[facility] Hospitaltart: 07-08-2022 End: 80-20-7127yotszxusulFW RICARDO JENNIFER .Facility:E7Hbymy: 06-30-2022 End: 17-81-2909jdvjktetrkKD RICARDO JENNIFER .Facility:C3Aodqk: 06-30-2022 End: 62-30-7428Rqdncmuts for other preprocedural examinationDR RICARDO JENNIFER . Facility:N4Sqqcl: 06-21-2022 End: 83-06-6405sxdguczdlfGY RICARDO JENNIFER .Facility:V1Muhuu: 05-31-2022 End: 46-75-3391cuhtaoaqzlFE IRON HOY .Facility:Z5Evmfh: 05-20-2022 End: 40-03-8669clhxoxacitNC RICARDO JENNIFER .Facility:U7Qwdqi: 05-04-2022 End: 32-39-0404zfjuoexvxrHY RICARDO JENNIFER .Facility:Y7Fbhou: 05-04-2022 End: 39-84-1270dagjhysbqeNO IRON HOY .Facility:S9Bgmop: 04-23-2022 End: 02-60-2305wjmuccmhdpMU RICARDO JENNIFER .Facility:D7Axdej: 04-02-2022 End: 90-37-8840ayplfbfeosIF IRON HOY .Facility:E6Cezje: 04-01-2022 End: 85-46-0785wpvzwmcdgzOC IRON HOY .Facility:W9Pqpsm: 03-24-2022 End: 25-50-4880mjcsyhqtnoFGJUTE CRAMERFacility:H3Sehpe: 03-15-2022 End: 03-59-1647vprmljsjjuPW IRON HOY .Facility:U6Hukhj: 03-12-2022 End: 88-37-6330eroxyawlnwZF IRON HOY .Facility:E4Spqpj: 02-17-2022 End: 09-90-9170vizqanmtfxLN RICARDO JENNIFER .Facility:F1Keern: 02-10-2022 End: 33-49-2091quribdopaiYO IRON HOY .Facility:P9Fsefx: 02-03-2022 End: 14-13-9684hfijjpxgncFF IRON HOY .Facility:Y9Fajxl: 28-11-8683fsjvmazeox DR RICARDO JENNIFER .Facility:T1Sfqsh: 01-13-2022 End: 81-53-7014lecypdzaznDJ RICARDO JENNIFER .Facility:H2Cqops: 01-12-2022 End: 15-25-0108bqluligxjyLY IRON HOY .Facility:J5Kxnhl: 12-24-2021 End: 78-79-5075ckombzuorjCO IRON HOY .Facility:T5Jndxo: 11-21-2021 End: 77-18-8405jjtqnquufcTW RICARDO JENNIFER .Facility:I9Ktdkp: 31-51-4163Vqcsfdhbi for general adult medical examination without abnormal findingsDR IRON HOY . [facility]tart: 09-26-2021 End: 39-58-3758mmvuatfqepRU IRON HOY .Facility:E8Rskks: 09-26-2021 End: 93-52-9760Gmqffzjsj for general adult medical examination without abnormal findingsDR IRON HOY .Facility:J8Urtta: 09-24-2021 End: 30-00-7424hevhcgqbpkVG IRON HOY .Facility:R5Upyhu: 08-17-2021 End: 49-75-3296jdfgleccmqQF RICARDO JENNIFER .Facility:B8Vwgna: 08-15-2021 End: 45-15-7675mjmzquseelRQ RICARDO JENNIFER .Facility:A4Oqmvn: 01-27-2021 End: 75-30-7896nsvbgdlzyoYrrzibmni Breault Other [place] [employer] Other Start: 30-90-4742Fcrjtg outpatient visit 15 minutes Mohini MartinezFPRj Urgent Care ClydeStart: 26-44-0268Vadrzm outpatient new 45 minutesDavid HykesFPG Gastroenterology Procedures DateProcedureProcedure DetailPerforming ClinicianStart: 04-22-4475MVE CBC WITH AUTO DIFFCorey Jennifer DO Work Phone: Start: 86-67-1989KMM Vanessa VILLARREAL Work Phone: Start: 12-01-6877JVW CBC WITH AUTO DIFFCorey Jennifer DO Work Phone: Start: 08-31-7863BKV COVID/FLU/RSVStart: 05-10-2023 Urnls dip stick/tablet rgnt non-auto w/o micrscpCorey [employer] Phone: Start: 07-83-6717Oxxvwqwhcgj observation [Identifier] in Cervix by Cyto stainCorey JenniferProject Manager Work Phone: Plan of Treatment DateCare ActivityDetailAuthorStart: 19-27-1000Vrplohglz for malignant neoplasm of cervixNOMS HealthcareStart: 38-63-1768Wptyrzbdz vaccinationInfluenza Vaccine (Season Ended)NOM HealthcareStart: 09-24-2024 End: 79-83-1328Qxqednv encounter zetfahnts14/30/2025 10:50 AM EDT Office Visit [facility] [address] [place] [phone] Josi Prescott PA [address] [place] [address] [facility] OBStart: 09-24-2024 End: 85-41-1900Ieesvww encounter idqpjvteq37/30/2025 8:50 AM EDT Consult [facility] [address] [place] [address] Ricardo Rodriguez, DO [address] [place] [address] [facility] BCP OBStart: 08-28-2024 End: 15-57-9913Oucjpwe encounter /03/2025 2:00 PM EDT Consult [facility] [address] [place] [address] Ricardo Rodriguez, DO [address] [place] [address] [facility] OBStart: 08-21-2024 End: 84-08-2090BJO tumor markerAFP tumor marker Lab Routine Complex ovarian cyst Expected: 08/21/2024 (Approximate), Expires: 08/21/2025[facility] HealthcareComment on above:Expected: 08/21/2024 (Approximate), Expires: 08/21/2025Start: 08-21-2024 End: 52-36-1549YF 125CA 125 Lab Routine Complex ovarian cyst Expected: 08/21/2024 (Approximate), Expires: 08/21/2025[facility] HealthcareComment on above: Expected: 08/21/2024 (Approximate), Expires: 08/21/2025Start: 08-21-2024 End: 30-62-7313Bopusobsnruyvwbs Ag [Mass/volume] in Serum or PlasmaCEA Lab Routine Complex ovarian cyst Expected: 08/21/2024 (Approximate), Expires: 08/21/2025[facility] HealthcareComment on above:Expected: 08/21/2024 (Approximate), Expires: 08/21/2025Start: 08-21-2024 End: 67-01-5516EAC, tumor markerHCG, tumor marker Lab Routine Complex ovarian cyst Expected: 08/21/2024 (Approximate), Expires: 08/21/2025[facility] Healthcare Comment on above:Expected: 08/21/2024 (Approximate), Expires: 08/21/2025Start: 08-21-2024 End: 09-67-1824Dbegqxb dehydrogenase, isoenzymesLactate dehydrogenase, isoenzymes Lab Routine Complex ovarian cyst Expected: 08/21/2024 (Approximate), Expires: 08/21/2025[facility] Healthcare Work Phone: comment on above:Expected: 08/21/2024 (Approximate), Expires: 08/21/2025Start: 79-78-2884Qxdet cultureLima City Hospitaltart: 46-18-6471Szfnamwo identified in Urine by CultureUrine Culture [facility] Hospitaltart: 05-24-2024 End: 42-91-2227Pcchvqc encounter wixgxfycf70/27/2025 8:30 AM EST Office Visit [facility] [address] [address] Ricardo Rodriguez, [address] [place] [address] [facility] BCP OBStart: 03-01-2024 End: 64-18-3900KJJ W Auto Differential panel - BloodCBC and differential Lab Routine Abnormal vaginal bleeding Expected: 03/01/2024 (Approximate), Expires: 03/01/2025NONM HealthcareComment on above:Expected: 03/01/2024 (Approximate), Expires: 03/01/2025Start: 03-01-2024 End: 85-72-6657TZTVNBNR Lab Routine Abnormal vaginal bleeding Expected: 03/01/2024, Expires: 03/01/2025NONM HealthcareComment on above:Expected: 03/01/2024, Expires: 03/01/2025Start: 03-01-2024 End: 35-35-9326LENT-sulfateDHEA-sulfate Lab Routine Abnormal vaginal bleeding Expected: 03/01/2024 (Approximate), Expires: 03/01/2025NONM HealthcareComment on above:Expected: 03/01/2024 (Approximate), Expires: 03/01/2025Start: 03-01-2024 End: 39-14-7548Mojyrobm stimulating hormoneFollicle stimulating hormone Lab Routine Abnormal vaginal bleeding Expected: 03/01/2024 (Approximate), Expires: 03/01/2025NM HealthcareComment on above:Expected: 03/01/2024 (Approximate), Expires: 03/01/2025Start: 03-01-2024 End: 34-98-3173rSI, quantitative, pregnancyhCG, quantitative, Lab Routine Abnormal vaginal bleeding Expected: 03/01/2024 (Approximate), Expires: 03/01/2025[facility] Work Phone: comment on above:Expected: 03/01/2024 (Approximate), Expires: 03/01/2025Start: 03-01-2024 End: 86-25-3724Xakeabgisq A1c/Hemoglobin.total in BloodHemoglobin A1c Lab Routine Abnormal vaginal bleeding Expected: 03/01/2024 (Approximate), Expires: 03/01/2025NONM HealthcareComment on above:Expected: 03/01/2024 (Approximate), Expires: 03/01/2025Start: 03-01-2024 End: 44-67-7094Vawwipgxqnz hormoneLuteinizing hormone Lab Routine Abnormal vaginal bleeding Expected: 03/01/2024 (Approximate), Expires: 03/01/2025NONM HealthcareComment on above:Expected: 03/01/2024 (Approximate), Expires: 03/01/2025Start: 03-01-2024 End: 45-19-0998Icsypssfjxi [Units/volume] in Serum or PlasmaTSH Lab Routine Abnormal vaginal bleeding Expected: 03/01/2024 (Approximate), Expires: 03/01/2025NONM HealthcareComment on above:Expected: 03/01/2024 (Approximate), Expires: 03/01/2025Start: 03-01-2024 End: 78-05-0457Swhwxmjju (T4) free [Mass/volume] in Serum or PlasmaT4, free Lab Routine Abnormal vaginal bleeding Expected: 03/01/2024 (Approximate), Expires: 03/01/2025[facility] HealthcareComment on above:Expected: 03/01/2024 (Approximate), Expires: 03/01/2025Start: 03-01-2024 End: 18-50-9624JH for pregnancyUS PELVIS-TRANSVAG IF INDICATED Imaging Routine Abnormal vaginal bleeding Expected: 03/01/2024 (Approximate), Expires: 03/01/2025[facility] HealthcareComment on above:Expected: 03/01/2024 (Approximate), Expires: 03/01/2025Start: 03-01-2024 End: 86-00-7536Dtoflkn encounter afdpwxcrt99/05/2024 11:10 AM EST Office Visit [facility] [address] [place] [phone] Ricardo Rodriguez, DO [address] [place] [address] [facility] OBComment on above:ArrivedStart: 95-25-1520Jiayqixts for malignant neoplasm of cervixHPV/CotestN[facility] Healthcare Start: 61-94-8377Iaupqqrvc vaccinationInfluenza Vaccine (#1)[facility] Start: 05-26-2023 End: 26-33-0827Ksdbwqv encounter ghbvjolor39/29/2024 9:50 AM EST Routine [facility] [address] [place], [place] [id number] Ricardo Rodriguez, DO [address] [place] [address] [facility] BCP OBStart: 05-10-2023 End: 33-37-4213NUR panel - Blood by Automated countCBC Lab Routine Diabetes mellitus screening Expected: 05/10/2023 (Approximate), Expires: 05/10/2024[facility] Work Phone: comment on above:Expected: 05/10/2023 (Approximate), Expires: 05/10/2024Start: 05-10-2023 End: 71-16-9177Djcmblbonry of glucose 1 hour after glucose challenge for glucose tolerance testGlucose tolerance, 1 hour Lab Routine Diabetes mellitus screening Expected: 05/10/2023 (Approximate), Expires: 05/10/2024[facility] HealthcareComment on above:Expected: 05/10/2023 (Approximate), Expires: 05/10/2024Start: 05-86-6737Uzughzgyl vaccinationInfluenza Vaccine (#1)[facility] Immunizations Immunization DateImmunizationNotesCare EcisszpvIblnzzfn70-45-3214iswhofeoj virus vaccine, unspecified formulationCorey Jennifer DO Work Phone: [facility] Payers DatePayer CategoryPayerPolicy [id number] [place] Blue [id number].9.999486.668273.78255-88-6372 UnknownBCBS BCBS [id number] 2022-Present [phone] [facility] [id number] [place] [address].2.840.398589.1.13.693.2.7.3.352656.77065-90-7771Kzkghrp [id number] 2.16.840.1.668547.3.57[id number] 2.16.840.1.220530.3.57[id number] 2.16.840.1.090434.3.579.2.57346-14-5018Cwrymzs0967501 2.16.840.1.858524.3.579.2.07127-38-6257Sjaibee2253080 2.16.840.1.330838.3.579.2.32223-09-3274Ywgtdzd1934150 2.16.840.1.633704.3.579.2.34253-76-2767Zebgjsj6044406 2.16.840.1.589110.3.579.2.47748-29-7050Ljhkhch0410649 2.16.840.1.282948.3.579.2.70176-59-7911Dwjtvdu1011684 2.16.840.1.339556.3.579.2.51687-77-7546Eyiqaii1628246 2.16.840.1.977661.3.579.2.03563-62-4380Tkiygdw5362441 2.16.840.1.374332.3.579.2.96560-37-2981Banfkba9063365 2.16.840.1.597454.3.579.2.15127-01-0464Dooevpe6653183 2.16.840.1.609094.3.579.2.86765-79-4170Tadkxfn1055553 2.16.840.1.878880.3.579.2.91827-53-4413Donlyss6073219 2.16.840.1.752469.3.579.2.72426-17-5783Dyggils9045416 2.16.840.1.644208.3.579.2.74388-92-1131Wgwhlgl9261635 2.16.840.1.983268.3.579.2.23939-96-8499Nidjgbz4926144 2.16.840.1.849209.3.579.2.10075-76-4544Qghyuxe2045522 2.16.840.1.776934.3.579.2.59748-62-9531Pgsohuo8843017 2.16.840.1.522767.3.579.2.10640-37-6605Ptlqabq4084256 2.16.840.1.688672.3.579.2.43151-29-2728Yntplat7047140 2.16.840.1.984878.3.579.2.99379-87-8820Fvucctz7653409 2.16.840.1.773005.3.579.2.33419-71-6703Xwmtsdb6984424 2.16.840.1.662991.3.579.2.40970-43-3128Pfkduqs6060103 2.16.840.1.403844.3.579.2.68511-01-8958Hxkfvbu94906974 2.16.840.1.154029.3.579.2.959140-96-0568Awvposf49464775 2.16.840.1.716191.3.579.2.903151-42-4519Extdowl9236450 2.16.840.1.747420.3.579.2.303310-58-5494Xdeievc8002897 2.16.840.1.550056.3.579.2.917475-86-6766Oxkkgbf7965016 2.16.840.1.804943.3.579.2.945071-76-8713Oeftyaq3624742 2.16.840.1.565463.3.579.2.251108-61-5763RrxifvvY7W211F6453600-37-1356Qewreeg FW1642529Ytilmnf329574986 2.160.1.634223.01OnvjmlvGVV579035124139 7518e2y4-0l49-1x98-8z1e-060n2m97082fKwgbfftYrnxxe /HBp3v820o07405 eef10526-t129-2tgh-w857-nym93u6d3f24Kanmvtz06500726 2.840.1.411800.3.579.2.492Gennybv95596571 2.0.1.435257.3.579.2.531 Social History DateTypeDetailFacilityUnknown if ever smokedColumbia Station [employer] Other Start: 01-28-2023 End: 81-70-7132Cai Assigned At [facility] [employer] Other Start: 01-28-2023 End: 30-21-2848Vwmcstt smoking status NHISNever smoked tobaccoNOMS Healthcare Start: 05-10-2023 End: 11-75-6815Fzfmwli intakeCurrent drinker of alcohol (finding)[facility] Start: 01-28-2023 End: 58-76-7308Iwkedcd of Social functionNOMS HealthcareHow often to you have a drink containing alcohol?2-4 times a monthNOMS HealthcareHow many standard drinks containing alcohol do you have on a typical day?1 or 2N[facility] HealthcareHow often do you have 6 or more drinks on 1 occasion?WeeklyNONM HealthcareStart: 17-58-4307Dpccndf Commentcaffeine: occasionalNOMS HealthcareStart: 11-26-2022 PregnancyNONM HealthcareStart: 67-03-5177Jru Assigned At BirthFemalTooele Valley Hospital HealthcareStart: 33-85-5367Oexuye identityIdentifies as female gender (finding) [facility] HealthcareStart: 42-54-1301Utqkch orientationHeterosexual (finding)[facility] HealthcareStart: 79-60-9477KysEqdvcl (finding)[facility] Clinical Notes 12-22-2020 to 09-24-2024 Note Date & XlobQgozPhudniho58-29-0666 History of Present illness Narrative* CHERELLE Abdi [...] Hypoglycemia 05/26/2023 JOSESITO (amniotic fluid index) increased ([facility]) 05/26/2023 Third trimester ([facility]) 06/13/2023 32 weeks gestation of ([facility]) 06/30/2023 Resolved Ambulatory Problems Diagnosis Date [...] Alethea Reich MA on behalf of: CHERELLE Abid documented in this encounterHannibal Regional HospitalJgkfkqiyoc12-39-3551 History of Present illness Narrative* Ricardo Rodriguez, - 08/28/2024 2:00 PM EDT Reason for Appointment: Patient ID: Kasandra Macias is a 28 y.o. female who presents for Pre-op Visit Patient presents today for Pre Op appointment. Patient is scheduled to undergo Diagnostic Laparoscopy, possible KAY, possible FOE, possible BSO on 09/13/[address] Rodriguez at [facility]. MEDICATIONS No current outpatient medications ALLERGIES No [...] note reviewed. Exam conducted with a director emergency present. Vitals: Estimated body mass index is [...] reviewed, and patient is to proceed to [facility] OR. Follow Up: Patient is to follow up between 1-2 weeks post operative to assess proper healing and recovery fromprocedure. Documented by Melissa Thornton LPN on behalf of: Ricardo Rodriguez DO documented in this encounterHannibal Regional HospitalWhpbpbwazw79-59-1947 History of Present illness Narrative* CHERELLE Abdi [...] behalf of: CHERELLE Abdi documented in this encounterHannibal Regional HospitalFcrbvkukji90-63-0492 History of Present illness Narrative* Abigail Guzman [...] note reviewed. Exam conducted with a director emergency present. Vitals: Estimated body mass index is [...] patient. Patient given 3 samples of Tyblume Lot:[id number] Exp: 02/19 Documented by Abigail Guzman LPN on behalf of: Ricardo Rodriguez DO documented in this encounterHannibal Regional HospitalOtzigkqthu37-50-4076 History of Present illness Narrative* Abigail Guzman [...] note reviewed. Exam conducted with a director emergency present. Vitals: Estimated body mass index is [...] of: Ricardo Rodriguez DO documented in this encounterHannibal Regional HospitalNeyknfxypy70-08-2983 History of Present illness Narrative* Melissa Thornton LPN - 05/10/2023 2:50 PM [...] note reviewed. Exam conducted with a director emergency present. Vitals: Estimated body mass index is [...] of: Ricardo Rodriguez DO documented in this encounterHannibal Regional HospitalZhoylvzgap28-11-3790 NoteOPERATIVE NOTE OPERATION DATE: 07/08/2022 PROCEDURE: Diagnostic laparoscopy with fulguration of ovarian endometrial implant. PREOPERATIVE DIAGNOSIS: Pelvic pain. POSTOPERATIVE DIAGNOSIS: Pelvic pain. ANESTHESIA: General. SURGEON: Ricardo Rodriguez D.O. EVENT DECORATOR: DEVIN Miles URINE OUTPUT: Yellow and clear. [...] taken to [facility] condition.[facility]ree[facility] Evaluation note* Encounter Date Diagnosis Assessment Notes Treatment Notes Treatment Clinical Notes Nov, Irritable bowel synd makeda with both constipation and diarrhea (ICD- 10 - K58.2) LABS INDICATED ABOVE START TRIAL OF DICYCLOMINE 20 BID RTO 4 WEEKS [employer] Other Evaluation noteNortPre [employer] Other Evaluation note* Diagnosis Second trimester state, incidental Diabetes mellitus screening Screening for diabetes mellitus documented in this encounter [facility] HealthcareEvaluation noteNo assessment information availableRegency Hospital [facility] West Work Phone: Evaluation note* Diagnosis Abnormal vaginal [...] Date Medical History anxiety/depression Medical HistoryIBSSurgical HistoryTONSILLECTOMY [employer] Other History general Narrative - ReportedNoBotanoCap Other Summary Purpose Family History No Family [...] and content) DATE CREATED AUTHOR 07/13/2022 [facility] DATE CREATED AUTHOR AUTHOR'S ORGANIZ ATION 09/16/2024 [facility] DATE CREATED AUTHOR AUTHOR'S ORGANIZ ATION 09/25/2024 [facility] EPIC Care Teams (unrecognized sec tion and content) Team MemberRelationshipSpecialtyStart DateEnd Date Iron Garcia MD [address] [place] [phone] PCP - GeneralFamily Medicine11/23/22 Team Status: Active Member Role Status Dates Iron Garcia MD Primary Care Provider Active Team Status: Inactive Member Role Status Dates Iron Garcia MD Primary Care Provider Active Start: May 22, 2023 End: May 22Trini Echevarria ProviderActiveStart: May 22, 2023 End: May 22, 2023Team MemberRelationshipSpecialtyStart DateEnd Date Iron Garcia MD [address] [place] [facility] [place] [address] PCP - GeneralFamily Medicine11/23/22Team MemberRelationshipSpecialtyStart DateEnd Date Iron Garcia MD [address] [place] [facility] [place] [address] PCP - GeneralFamily Medicine11/23/22Team MemberRelationshipSpecialtyStart DateEnd Date Iron Garcia MD [address] [place] [facility] [place] [address] PCP - GeneralFami Medicine11/23/22Team MemberRelationshipSpecialtyStart DateEnd Date Iron Garcia MD [address] [place] [facility] [place] [address] PCP - GeneralFami Medicine11/23/22Team MemberRelationshipSpecialtyStart DateEnd Date Iron Garcia MD [address] [place] [facility] [place] [address] PCP - GeneralFamily Medicine08/21/24Team MemberRelationshipSpecialtyStart DateEnd Date Iron Garcia MD [address] [place] [facility] [place] [address] PCP - GeneralFamily Medicine08/21/24 Team Status: Inactive Member Role Status Dates Hannah David DO Attending Provider Active Start: August 15, 2024 End: August 15, 2024Team MemberRelationshipSpecialtyStart DateEnd Date Iron Garcia MD [address] [place] [facility] [place] [address] PCP - GeneralFamily Medicine08/21/24Team MemberRelationshipSpecialtyStart DateEnd Iron Garcia MD [address] [place] [address] [facility] - [facility]/24Te MemberRelationshipSpecialtyStart End Iron Garcia MD [address] [place] [address] PCP - [facility]08/21/24 Goals (unrecognized section and content) Goals may [...] PRIMARY CLINICAL RECORDS. [facility] [employer] [facility]. provides no warranty or guarantee of the accuracy or completeness of information in this document.
--- OUTSIDE RECORDS SUMMARY | 2025-01-18 10:44 | XMS_ITS | Patient Health Record ---
Author Organization [facility] in [place] Address [address] [place] [address] Care Team Providers Care City Assessor Name Role Phone Abilio Garcia Primary Care Provider Allergies No Known Allergies Results Component Value Reference Range Notes UA DIP NONAUTO WO MICRO (810 02) - IN OFFICE (Not yet reviewed by provider) Interpretation: Performing Lab: Notes/Report: COLOR yellow CLARITYclearGLUCOSEnegBILIRUBIN+KETONE+SPECIFIC GRAVITY1.669UTILZsujZP1.5PROTEIN +UROBILINOGENnegNITRITEnegLEUKOCYTE ESTERASEnegUA DIP NONAUTO WO MICRO (66872) - IN OFFICE Reviewed date:11/09/2024 11:04:06 AM Interpretation: Performing Lab: Notes/Report: COLORYellowCLARITYClearGLUCOSENegBILIRUBINNegKETONE+SPECIFIC GRAVITY1.025BLOOD FfwOB1IAKFLSQ+UROBILINOGENNegNITRITENegLEUKOCYTE ESTERASE+++CBC AUTO DIFF Reviewed date:01/16/2025 01:05:41 PM Interpretation: Performing Lab: Notes/Report: [facility] ,White Blood Count10.64.0-11.0 10 3/uLRed Blood Count4.554.20-5.40 10 6/uL Mcsrebkjfz85.012.0-16.0 g/eBZupuqecddf54.336.0-48.0 %Mean Corpuscular Wlypnw93.8 81.0-99.0 fLMean Corpuscular Xvunmodgxv37.826.7-34.0 pgMean Corpuscular HGB Conc 33.929.9-35.2 g/dLRed Cell Distribution Width13.111.0-15.0 %Platelet Vtggv486 150-450 10 3/uLMean Platelet Volume9.29.5-13.5 fLNeutrophils Percent Auto75.3 43.0-75.0 %Lymphocytes Percent Auto16.020.5-60.0 %Monocytes Percent Auto7.41.7- 12.0 %Eosinophils Percent Auto0.60.9-7.0 %Basophils Percent Auto0.30.2-2.0 % Immature Granulocytes Pct Auto0.40.0-0.5 %Neutrophils Absolute Auto8.01.4-6.5 10 3/uLLymphocytes Absolute Auto1.71.2-3.8 10 3/uLMonocytes Absolute Auto0.80.3-0.8 10 3/uLEosinophils Absolute Auto0.10.0-0.7 10 3/uLBasophils Absolute Auto0.00.0- 0.1 10 3/uLImmature Granulocytes Abs Auto0.040.00-0.03 10 3/uLPerforming Lab:see note - [facility] LBPROLACTIN Reviewed date:01/17/2025 09:53:06 AM Interpretation: Performing Lab: Notes/Report: [facility] ,Prolactin8.74.8-33.4 ng/mLPerforming Lab:see noteLC - [facility] LBFSH Reviewed date:01/17/2025 09:53:06 AM Interpretation: Performing Lab: Notes/Report: [facility] ,FSH2.7. mIU/mL Adult Female Range Follicular phase 3.5 - 12.5 Ovulation phase 4.7 - 21.5 Luteal phase 1.7 - 7.7 Postmenopausal 25.8 - 134.8 Performing Lab:see noteLC - [facility] LBFREE T4 Reviewed date:06/28/2024 05:15:15 PM Interpretation: Performing Lab: Notes/Report: [facility] ,Free T40.850.76-1.46 ng/dLPerforming Lab:see [facility] LB GLYCOHEMOGLOBIN A1C Reviewed date:06/28/2024 05:15:15 PM Interpretation: Performing Lab: Notes/Report: [facility] ,Glycohemoglobin A1C5.34.5-6.2 % ADA RECOMMENDED LIMIT 4.0 - 6.0 ADA THERAPEUTIC TARGET < 7.0 ACTION SUGGESTED > 7.0 Estimated Average Iustuom019Wkkzrujftf Lab:see note - [facility] LB PREG QUANT HCG Reviewed date:06/28/2024 05:15:15 PM Interpretation: Performing Lab: Notes/Report: [facility] ,HCG Quantitative<1 5-50 0.2-1 WEEK 50-500 1-2 WEEKS 100-5,000 2-3 WEEKS 500-10,000 3-4 WEEKS 1,000-50,000 4-5 WEEKS 10,000-100,000 5-6 WEEKS 15,000-200,000 6-8 WEEKS 10,000-100,000 2-3 MONTHS Performing Lab:[facility]Tr[facility] CampusTSH Reviewed date:06/28/2024 05:15:15 PM Interpretation: Performing Lab: Notes/Report: [facility] ,Thyroid Stimulating Hormone1.0170.358-3.740 uIU/mLPerforming Lab:see note - [facility] LBLuteinizing Hormone(LH) Reviewed date:07/01/2024 03:20:51 PM Interpretation: Performing Lab: Notes/Report: [facility] ,Luteinizing Hormone(LH)3.5. mIU/mL Adult Female Range Follicular phase 2.4 - 12.6 Ovulation phase 14.0 - 95.6 Luteal phase 1.0 - 11.4 Postmenopausal 7.7 - 58.5 Performing Lab:see jesus - [facility] FSH Reviewed date:07/01/2024 03:20:51 PM Interpretation: Performing Lab: Notes/Report: [facility] ,FSH6.5. mIU/mL Adult Female Range Follicular phase 3.5 - 12.5 Ovulation phase 4.7 - 21.5 Luteal phase 1.7 - 7.7 Postmenopausal 25.8 - 134.8 Performed at: [facility] Lab[address] [id number] Certified Rehabilitation Counselor: Jose Orellana PhD, Phone: [phone] Performing Lab:[facility] LBDHEA-Sulfate Reviewed date:07/01/2024 03:20:51 PM Interpretation: Performing Lab: Notes/Report: [facility] ,DHEA-Flduojg15.884.8-378.0 ug/dLPerforming Lab:see noteLC - [facility] LBCBC AUTO DIFF Reviewed date:08/16/2024 12:37:01 PM Interpretation: Performing Lab: Notes/Report: [facility] ,White Blood Count10.14.0-11.0 10 3/uLRed Blood Count4.304.20-5.40 10 6/uL Sykiztefjz04.812.0-16.0 g/sTLassmzrkyu83.636.0-48.0 %Mean Corpuscular Oiywyb33.8 81.0-99.0 fLMean Corpuscular Cufjtzpigs65.826.7-34.0 pgMean Corpuscular HGB Conc 33.229.9-35.2 g/dLRed Cell Distribution Width13.211.0-15.0 %Platelet Wujme804 150-450 10 3/uLMean Platelet Volume9.49.5-13.5 fLNeutrophils Percent Auto62.1 43.0-75.0 %Lymphocytes Percent Auto25.620.5-60.0 %Monocytes Percent Auto10.01.7- 12.0 %Eosinophils Percent Auto1.70.9-7.0 %Basophils Percent Auto0.30.2-2.0 % Immature Granulocytes Pct Auto0.30.0-0.5 %Neutrophils Absolute Auto6.31.4-6.5 10 3/uLLymphocytes Absolute Auto2.61.2-3.8 10 3/uLMonocytes Absolute Auto1.00.3-0.8 10 3/uLEosinophils Absolute Auto0.20.0-0.7 10 3/uLBasophils Absolute Auto0.00.0- 0.1 10 3/uLImmature Granulocytes Abs Auto0.030.00-0.03 10 3/uLPerforming Lab:see noteML - [facility] LBLIPASE Reviewed date:08/16/2024 12:37:01 PM Interpretation: Performing Lab: Notes/Report: [facility] ,Vcnoab31.016.0-77.0 U/LPerforming Lab:see noteML - [facility] LBPROF 14(COMP METB) Reviewed date:08/16/2024 12:37:01 PM Interpretation: Performing Lab: Notes/Report: [facility] ,Dyfnxn065215-755 mmol/LPotassium4.23.5-5.1 mmol/RGwbxivuy24740-680 mmol/LCarbon Lwasmin18.421.0-32.0 mmol/LAnion Gap8.1Wkkpule1601-714 mg/dLBlood Urea Nitrogen 28.07.0-18.0 mg/dLCreatinine0.640.55-1.02 mg/dLEstimated GFR ( Christina>60 >=60 mL/min/1.73m 2Estimated GFR (Non- Rhianna>60>=60 mL/min/1.73m 2BUN Creatinine Ratio43.6Dzqcczj1.98.5-10.1 mg/dLBilirubin Total0.80.2-1.0 mg/dL Aspartate Amino Naryjtcevwq1322-60 U/LAlanine Wjxpooytyjhdxowx7361-11 U/L Alkaline Oakxwoxpawe2350-099 U/LTotal Protein6.66.4-8.2 g/dLAlbumin Level3.63.4- 5.0 g/dLGlobulin3.0Albumin Globulin Ratio1.2Performing Lab:see note - [facility] LBUA (CLEAN or CATCH) SEEDLING SORTER or MICRO IF IND. Reviewed date:08/16/2024 12:37:01 PM Interpretation: Performing Lab: Notes/Report: [facility] ,Color UrineYELLOWYELLOWClarity UrineCLEARCLEARSpecific [place] Urine1.020 1.005-1.025pH Urine6.55.0-9.0Protein UrineTRACENEG/TRACE mg/dLGlucose Urine UA NEGATIVENEGATIVE mg/dLBilirubin UrineNEGATIVENEGATIVEKetones UrineTRACENEGATIVE mg/dLBlood UrineNEGATIVENEGATIVENitrite UrineNEGATIVENEGATIVEUrobilinogen Urine 1.00.2-1.0 EU/dLLeukocyte Esterase UrineNEGATIVENEGATIVEUrine Microscopic IndicatedYESPerforming Lab:see note - [facility] LBURINE MICROSCOPIC ONLY Reviewed date:08/16/2024 12:37:01 PM Interpretation: Performing Lab: Notes/Report: [facility] ,WBC Urine0-2NONE SEEN #/HPFRBC UrineNONE SEEN0-2 #/HPFBacteria UrineSMALLNONE SEEN #/HPFMucus UrineNONE SEENNONE SEENSquamous Epithelial Cell UrineMANY NONE/RARE #/LPFCrystals Seen?None SeenNone Seen #/HPFCast Seen?NONE SEENNONE SEEN #/LPFUrine Culture IndicatedYES-FRMCPerforming Lab:see noteML - [facility] LBHCG Qualitative Urine Reviewed date:08/16/2024 12:37:02 PM Interpretation: Performing Lab: Notes/Report: [facility] ,HCG Qualitative Urine*NEGATIVENEGATIVEPerforming Lab:see note - [facility] LBUrine Culture - [facility] Reviewed date:08/20/2024 03:23:56 PM Interpretation: Performing Lab: Notes/Report: [facility] ,Urine Culture - FRMCSee Below For Report Urine Culture - [facility] <9,000 colonies/ml mixed Urine Culture - FRMCbacterial skin contaminants Urine Culture - [facility] <9,000 colonies/ml mixed Urine Culture - [facility]2 Days Urine Culture - [facility] <9,000 colonies/ml mixed Urine Culture - [facility] Urine Culture - [facility] <9,000 colonies/ml mixed Urine Culture - [facility]esting [facility]rine [facility] - [facility] <9,000 colonies/ml mixed Urine Culture - [id number] [place] [address] Urine Culture - [facility] <9,000 colonies/ml mixed Performing Lab:see noteML - [facility] LBUS pelvis transvaginal Reviewed date:08/16/2024 12:37:02 PM Interpretation: Performing Lab: Notes/Report: Source Facility: [facility]-[address] [place] [address] [place] [address] Ultrasound Report Signed Patient: ESTER MACIAS MR#: [id number] : 1995 Acct:[id number] Age/Sex: 28 / F ADM Date: 08/15/24 Loc: ER Attending Dr: Ordering Physician: Everardo Rothman NP Date of Service: 08/15/24 Procedure(s): US pelvis transvaginal Accession Number(s): [id number] cc: Erik Garcia M.D.; Everardo Rothman NP [facility] [place] [id number] Patient Name: ESTER MACIAS MRN: [id number] date: 1995 Sex: F Assigned Patient Location: ER Current Patient Location: ER Accession/Order Number: [id number] Exam Date: 08/15/2024 21:29 Report Date: 08/15/2024 [...] Eugene M.D. 08/15/2024 9:34 PM Dictation Location: [place] [address] Electronically authenticated by: [id number] Y Date: 08/15/2024 21:34 Dictated By: Cody Eugene D.O. Signed By: 08/15/242136 DD/ 33 TD/TT: Track Car Operator:KELLIE T3 Reviewed date:01/16/2025 01:05:41 PM Interpretation: Performing Lab: Notes/Report: [facility] Kellie T32.632.18-3.98 pg/mLPerforming Lab:see noteML - [facility] LB PROF 14(COMP METB) Reviewed date:01/16/2025 01:05:41 PM Interpretation: Performing Lab: Notes/Report: [facility] ,Vsgfhn763267-956 mmol/LPotassium4.23.5-5.1 mmol/JLirfvoyh38926-669 mmol/LCarbon Doubyha57.421.0-32.0 mmol/LAnion Gap12.8Ntwfdvu93006-135 mg/dLBlood Urea Ragehvwy15.07.0-18.0 mg/dLCreatinine0.600.55-1.02 mg/dLEstimated GFR ( Christina>60>=60 mL/min/1.73m 2Estimated GFR (Non- Rhianna>60>=60 mL/min/1.73m 2BUN Creatinine Ratio28.1Ygflwyb6.88.5-10.1 mg/dLBilirubin Total1.20.2-1.0 mg/dL Aspartate Amino Ovnaevuwsev2822-39 U/LAlanine Wzynkgowesmejcfm3886-90 U/L Alkaline Xyqyffnpxrm5140-785 U/LTotal Protein6.96.4-8.2 g/dLAlbumin Level3.73.4- 5.0 g/dLGlobulin3.2Albumin Globulin Ratio1.2Performing Lab:see noteML - [facility] LBT4 Reviewed date:01/16/2025 01:05:41 PM Interpretation: Performing Lab: Notes/Report: [facility] ,T4 Thyroxine7.804.80-13.90 ug/dLPerforming Lab:see noteML - [facility] LBTSH Reviewed date:01/16/2025 01:05:41 PM Interpretation: Performing Lab: Notes/Report: [facility] ,Thyroid Stimulating Hormone1.4020.358-3.740 uIU/mLPerforming Lab:see noteML - [facility] LBProgesterone Reviewed date:01/17/2025 09:53:06 AM Interpretation: Performing Lab: Notes/Report: [facility] ,Progesterone0.2. ng/mL Follicular phase 0.1 - 0.9 Luteal phase 1.8 - 23.9 Ovulation phase 0.1 - 12.0 First trimester 11.0 - 44.3 Second trimester 25.4 - 83.3 Third trimester 58.7 - 214.0 Postmenopausal 0.0 - 0.1 Performed at: [address] [id number] Certified Rehabilitation Counselor: Jose Orellana PhD, Phone: [phone] Performing Lab:see [facility] LBLuteinizing Hormone(LH) Reviewed date:01/17/2025 09:53:06 AM Interpretation: Performing Lab: Notes/Report: [facility] ,Luteinizing Hormone(LH)2.9. mIU/mL Adult Female Range Follicular phase 2.4 - 12.6 Ovulation phase 14.0 - 95.6 Luteal phase 1.0 - 11.4 Postmenopausal 7.7 - 58.5 Performing Lab:see [facility] LBEstradiol Reviewed date:01/17/2025 09:53:06 AM Interpretation: Performing Lab: Notes/Report: [facility] ,Wqlsbcloi678.0. pg/mL Adult Female Range Follicular phase 12.5 - 166.0 Ovulation phase 85.8 - 498.0 Luteal phase 43.8 - 211.0 Postmenopausal <6.0 - 54.7 1st trimester 215.0 - >4300.0 Aj ECLIA methodology Performing Lab:see [facility] LBLDH Reviewed date:08/27/2024 08:51:37 PM Interpretation: Performing Lab: Notes/Report: [facility] ,Lactate Lkonnzhltrfpo00304-965 U/LPerforming Lab:see jesus - [facility] LBDHEA, Serum Reviewed date:07/08/2024 03:34:30 PM Interpretation: Performing Lab: Notes/Report: [facility] ,DHEA, Arqcm17518-594 ng/dL This test was developed and its performance characteristics determined by [facility]. It has not been cleared or approved by the Food and Drug Administration. Performed at: [address] [id number] Certified Rehabilitation Counselor: Go Valente MD, Phone: [phone] Performing Lab:see [facility] SpringsCBC AUTO DIFF Reviewed date:06/28/2024 05:15:15 PM Interpretation: Performing Lab: Notes/Report: [facility] ,White Blood Count6.24.0-11.0 10 3/uLRed Blood Count4.364.20-5.40 10 6/uL Ycroxxdbra41.812.0-16.0 g/cYVinswarruw44.236.0-48.0 %Mean Corpuscular Tcvbor64.9 81.0-99.0 fLMean Corpuscular Wnujvgtbry74.426.7-34.0 pgMean Corpuscular HGB Conc 32.729.9-35.2 g/dLRed Cell Distribution Width13.311.0-15.0 %Platelet Gdksp297 150-450 10 3/uLMean Platelet Volume8.99.5-13.5 fLNeutrophils Percent Auto59.6 43.0-75.0 %Lymphocytes Percent Auto27.120.5-60.0 %Monocytes Percent Auto9.91.7- 12.0 %Eosinophils Percent Auto2.60.9-7.0 %Basophils Percent Auto0.50.2-2.0 % Immature Granulocytes Pct Auto0.30.0-0.5 %Neutrophils Absolute Auto3.71.4-6.5 10 3/uLLymphocytes Absolute Auto1.71.2-3.8 10 3/uLMonocytes Absolute Auto0.60.3-0.8 10 3/uLEosinophils Absolute Auto0.20.0-0.7 10 3/uLBasophils Absolute Auto0.00.0- 0.1 10 3/uLImmature Granulocytes Abs Auto0.020.00-0.03 10 3/uLPerforming Lab:see noteML - [facility] LBUS pelvis w/ transvaginal Reviewed date:03/28/2024 03:17:33 PM Interpretation: Performing Lab: Notes/Report: Source Facility: [facility]-[address] [place] [address] [place] [address] Ultrasound Report Signed Patient: ESTER MACIAS MR#: [id number] : 1995 Acct:[id number] Age/Sex: 28 / F ADM Date: 03/27/24 Loc: US Attending Dr: Ricardo Rodriguez D.O. Ordering Physician: Ricardo Rodriguez D.O. Date of Service: 03/27/24 Procedure(s): US pelvis w/ transvaginal Accession Number(s): [id number] cc: Ricardo Rodriguez D.O.; Erik Garcia M.D. [address] [address] Patient Name: ESTER MACIAS MRN: [id number] date: 1995 Sex: F Assigned Patient Location: US Current Patient Location: Accession/Order Number: [id number] Exam Date: 03/27/2024 14:05 Report Date: 03/28/2024 [...] M.D. Signed By: 03/28/24334 DD/ 1 TD/TT: Track Car Operator:PREG QUANT HCG Reviewed date:09/13/2024 06:52:01 PM Interpretation: Performing Lab: Notes/Report: [facility] ,HCG Quantitative<1 5-50 0.2-1 WEEK 50-500 1-2 WEEKS 100-5,000 2-3 WEEKS 500-10,000 3-4 WEEKS 1,000-50,000 4-5 WEEKS 10,000-100,000 5-6 WEEKS 15,000-200,000 6-8 WEEKS 10,000-100,000 2-3 MONTHS Performing Lab:see noteML - [facility] LBCBC AUTO DIFF Reviewed date:09/13/2024 06:52:01 PM Interpretation: Performing Lab: Notes/Report: [facility] ,White Blood Count11.04.0-11.0 10 3/uLRed Blood Count4.194.20-5.40 10 6/uL Hpzrywsvef47.412.0-16.0 g/iOOcfyaebijt08.436.0-48.0 %Mean Corpuscular Xfrqte54.3 81.0-99.0 fLMean Corpuscular Zxpzbnlgns73.626.7-34.0 pgMean Corpuscular HGB Conc 33.229.9-35.2 g/dLRed Cell Distribution Width13.011.0-15.0 %Platelet Kmhki641 150-450 10 3/uLMean Platelet Volume9.39.5-13.5 fLNeutrophils Percent Auto65.3 43.0-75.0 %Lymphocytes Percent Auto22.620.5-60.0 %Monocytes Percent Auto9.81.7- 12.0 %Eosinophils Percent Auto1.70.9-7.0 %Basophils Percent Auto0.30.2-2.0 % Immature Granulocytes Pct Auto0.30.0-0.5 %Neutrophils Absolute Auto7.21.4-6.5 10 3/uLLymphocytes Absolute Auto2.51.2-3.8 10 3/uLMonocytes Absolute Auto1.10.3-0.8 10 3/uLEosinophils Absolute Auto0.20.0-0.7 10 3/uLBasophils Absolute Auto0.00.0- 0.1 10 3/uLImmature Granulocytes Abs Auto0.030.00-0.03 10 3/uLPerforming Lab:see noteML - [facility] LBHCG Tumor Marker Reviewed date:08/28/2024 04:06:06 [...] developed and its performance characteristics determined by [facility]. It has not been cleared or approved by the Food and Drug Administration for use as a tumor marker. This test is not interpretable as a tumor marker in females. Performed at: [address] [id number] Certified Rehabilitation Counselor: Jose Orellana PhD, Phone: [phone] Performing Lab:see [facility] SpringsCancer Antigen (CA) 125 Reviewed date:08/28/2024 04:06:06 PM Interpretation: Performing Lab: Notes/Report: [facility] ,Cancer Antigen (CA) 05671.80.0-38.1 U/mL [facility] [employer] Electrochemiluminescence Immunoassay (ECLIA) Values obtained with different assay methods or kits cannot be used interchangeably. Results cannot be interpreted as absolute evidence of the presence or absence of malignant disease. Performed at: [address] [id number] Certified Rehabilitation Counselor: Jose Orellana PhD, Phone: [phone] Performing Lab:see [facility] SpringsAFP, Serum, Tumor Marker Reviewed date:08/28/2024 04:06:06 PM Interpretation: Performing Lab: Notes/Report: [facility] ,AFP, Serum, Tumor Marker2.40.0-4.7 ng/mL [facility] [employer] Electrochemiluminescence Immunoassay (ECLIA) Values obtained with different assay methods or kits cannot be used interchangeably. Results cannot be interpreted as absolute evidence of the presence or absence of malignant disease. This test is not interpretable in females. Performing Lab:see [facility] LBCEA Reviewed date:08/28/2024 04:06:06 PM Interpretation: Performing Lab: Notes/Report: [facility] ,CEA1.50.0-4.7 ng/mL Nonsmokers <3.9 Smokers <5.6 [facility] [employer] Electrochemiluminescence Immunoassay (ECLIA) Values obtained with different assay methods or kits cannot be used interchangeably. Results cannot be interpreted as absolute evidence of the presence or absence of malignant disease. Performed at: [address] [id number] Certified Rehabilitation Counselor: Jose Orellana PhD, Phone: [phone] Performing Lab:see [facility] LB Reason For Referral No Information Medications Medication SIG (Take, Route, Frequency, Duration) Notes Start Date End Date Status Ciprofloxacin HCl 500 MG 1 tablet Orally every 1 2 hrs; Duration: 10 days 01/18/2025tivemetroNIDAZOLE 500 MG1 tablet Orally Three times a day; Duration: 10 days01/18/2025tiveAtomoxetine HCl 25 MG1 capsule Orally Twice a day; Duration: 30 day(s)5ActiveImitrex 100 MG1 tablet at least 2 hours between doses as needed Orally Twice a day; Duration: Not-Taking Bactrim DS 800-160 MG1 tablet Orally bid; Duration: 10 days5Active Social History Tobacco Use: Social History Observation Description Date Details (start date - stop date) Never Smoker NA - NA Tobacco Use/Smoking Question Answer Notes Patient is a nonsmoker AUDIT-C (Standard) Question Answer Notes Did you have a drink containing alcohol in the p ast year? No Bevsrn8MhhxfeyeyhcmsnMoybgsym Problems Problem Type SNOMED Code ICD Code Onset Dates Problem Status W/U Status Risk Notes Problem Information temporarily unavailable Ameno rrhea, unspecified (N91.2) ActiveconfirmedProblemInformation temporarily unavailableSinusitis (J32.9)Active confirmedProblemInformation temporarily unavailableMigraine without aura and without status migrainosus, not intractable (G43.009)ActiveconfirmedProblem Information temporarily unavailableSeasonal allergic rhinitis (J30.2)Active confirmedProblemInformation temporarily unavailableDiverticulitis (K57.92)Active confirmedProblemInformation temporarily unavailableAllergic sinusitis (J30.9) Activeconfirmed Vital Signs Temperature 98.7 degrees Fahrenheit 01/18/2025 Blood pressure yldstzthb34 mm Hg01/18/20256064Icsiwx48 in01/18/2025lood pressure pnmuncrj771 mm Hg01/18/20255125Vbshpx535.8 lbs1MI23.96 kg/m201/18/2025 Encounters Encounter Location Date Provider Diagnosis [facility] [address] [place] [address] 01/18/2025 Abilio Hoy Fever R50.9 and Diverticulitis K57.92 [facility] [address] [place] [address] 05/21/2024 Abilio Hoy Allergic sinusitis J 30.9 [facility] [address] [place] [address] 11/05/2024 Abilio Hoy Allergic sinusitis J 30.9 [facility] [address] [place] [address] 11/23/2024 Abilio Hoy Seasonal allergic rhinitis J30.2 [facility] [address] [place] [address] 01/17/2025 Abilio Hoy [facility] [place] [address] 02/08/2024[facility] Z01.89[facility] [place] [address]/[facility] [place] [address]/[facility] [place] [address]/08/2024 Abilio HoyMigraine without aura and without status migrainosus, not intractable G43.009[facility] [place] [address]/09/2024[facility] [place] [address]/23/2025Doug [facility] [facility] [address]/[facility] [facility] [place] [address]/[facility] [facility] [place] [address]/07/2024 [facility] [facility] [place] [address]/[facility] [facility] [place] [address]/Doug HoyMigraine without aura and without status migrainosus, not intractable G43.009[facility] [facility] [place] [address]/07/2024Doug HoySeasonal allergic rhinitis J30.2B[facility] [facility] [place] [address]/[facility] [facility] [place] [address]/10/2024[facility] [facility] [place] [address]/01/2025[facility] [facility] [place] [address]/Doug HoyDysuria R30.0[facility] [facility] [place] [address] 11/09/2024[facility] [facility] [place] [address]/[facility] [facility] [place] [address]/[facility] [facility] [place] [address]/[facility] [facility] [address] [place] [address]/[place] [address] [place] [address]/ Abilio HoyAllergic sinusitis J30.9BB[place] [address] [place] [address]/Doug HoySinusitis J32.9BBrent [place] [address] [place] [address]/Doug Hoy Amenorrhea, unspecified N91.2BBrent [place] [address] [place] [address]/Doug HoyBChrist[place] [address] [place] [address]/Doug HoySinusitis J32.9B[address] [place] [address]/ Abilio Hoy Assessments Encounter Date Diagnosis (ICD Code) Assessment Notes Treatment Notes Treatment Clinical Notes Section Notes 05/21/2024 Allergic sinusitis (ICD-10 - J30 .9) 11/05/2024llergic sinusitis (ICD-10 - J30.9)11/23/2024Seasonal allergic rhinitis (ICD-10 - J30.2)01/18/2025Fever (ICD-10 - R50.9)01/18/2025 Diverticulitis (ICD-10 - K57.92)02/08/2024Wellness examination (ICD-10 - Z01.89) 04/02/2024Migraine without aura and without status migrainosus, not intractable (ICD-10 - G43.009)08/15/2024Migraine without aura and without status migrainosus, not intractable (ICD-10 - G43.009)08/30/2024Seasonal allergic rhinitis (ICD-10 - J30.2)11/09/2024Dysuria (ICD-10 - R30.0)01/14/2025llergic sinusitis (ICD-10 - J30.9)01/14/2025Sinusitis (ICD-10 - J32.9)01/15/2025 Amenorrhea, unspecified (ICD-10 - N91.2)01/16/2025Sinusitis (ICD-10 - J32.9) Plan Of Treatment Pending Test Test Name Order Date CMP (COMPLETE METABOLIC PANEL) UA (URINALYSIS, COMPLETE) 04/07/2023 Urinalysis Microscopic 04/07/2023 UA DIP NONAUTO WO MICRO (34195) - IN OFF ICE 01/18/2025 PROGESTERONE 01/15/2025 CMP - Comprehensive Metabolic Panel 12/27 HCG (Quantitative) 12/10/2022 CBC W/AUTO DIFF 05/24/2023 CBC W/AUTO DIFF 02/08/2024 Rapid COVID-19 Ag 10/17/2023 Ultrasound venous doppler 08/17/2023 GLUCOSE 1 HR 05/24/2023 CULTURE URINE 04/07/2023 ESTRADIOL 01/15/2025 GLYCOHEMOGLOBIN A1C 02/08/2024 INFLUENZA A AND B AG 10/17/2023 INFLUENZA A AND B AG 02/22/2023 LIPID PROFILE 02/08/2024 LUTEINIZING HORMONE (LH) 01/15/2025 RESPIRATORY PANEL PLUS 02/22/2023 CT ABD and PELV W CON 01/18/2025 THYROID PANEL (T4/TSH/FREE T3) THYROID PANEL (T4/TSH/FREE T3) 5 Insurance Providers Payer Name Payer Address Payer Phone Subscriber Number Group Number Insured Name Patient Relationship to Insured Coverage Start Date Coverage End Date AN[employer]M ACCESS PPO PLUS LOCAL PLAN [address] [place] [address] [id number] Sadie Macias - patient is the spouse of the insured Medications Administered Medication Instructions Date of Administration Dosage Notes Ketorolac Tromethamine mgKetorolac Vggyalupygmw90/06/202560 mgKetorolac Tromethamine mgKetorolac Ljfxjjzlnvdv57/11/202560 mgOrphenadrine Citrate mgPromethazine, 25 mg mgTriamcinolone 40 mg/ml mgTriamcinolone 40 mg/ml mgTriamcinolone [...] G47.00 Menometrorrhagia N92.1 Surgical History Surgery Date(Month/Year) laparotomy Tonsills
--- NOTE | 2025-01-18 10:45 | CT_ITS ---
[address] [address] Patient Name: ESTER BRADFORD MRN: [facility]:[id number] date: 1995 Sex: F Assigned Patient Location: CT Current Patient Location: CT Accession/Order Number: [id number] Exam Date: 01/18/2025 11:50 Report Date: 01/18/2025 12:35 At the request of: IRON AVILA MD Procedure: CT abdomen pelvis w con CT abdomen pelvis w con 01/18/2025 12:03 PM SIGNS AND SYMPTOMS: Worsening left flank pain, nausea, intermittent fevers TECHNIQUE: Multidetector ct axial images of the abdomen and pelvis were obtained with IV contrast. Multiplanar reformats were performed and reviewed to further define anatomy and possible pathology. CT was performed with one or more of the following dose reduction techniques: Automated exposure control, adjustment of the mA and/or kV according to patient size, or use of iterative reconstruction technique. COMPARISON: None. FINDINGS: Lower Chest: Within normal limits. ABDOMEN: Liver: Within normal limits. Bile Ducts: Normal caliber. Gallbladder: No calcified gallstones. Normal caliber wall. Pancreas: Within normal limits. Spleen: Within normal limits. Adrenals: Within normal limits. Kidneys: Focal areas of renal cortical atrophy is noted in the left with secondary ileus pyelonephritis or vascular infarcts. Pelvis: Reproductive Organs: Dominant follicles are noted in the adnexa on the right. Ureters: Within normal limits. Bladder: Within normal limits. Bowel: Normal caliber. Mesenteric Lymph Nodes: No enlarged mesenteric lymph nodes. Peritoneum: No ascites or free air, no fluid collection. Vessels: within normal limits Retroperitoneum: Within normal limits. Abdominal Wall: Within normal limits. Bones: Within normal limits. CT/CT abdomen pelvis w con IMPRESSION: Focal areas of renal cortical atrophy is noted in the left with secondary ileus pyelonephritis or vascular infarcts. No bowel obstruction or obstructive uropathy. No acute diverticulitis. Dominant follicles are noted in the right adnexa. No evidence of free fluid or free air. Impression dictated by: Gerry Barnhart M.D. 01/18/2025 12:35 PM Dictation Location: [place] [address] Electronically authenticated by: [id number] Y Date: 01/18/2025 12:35
== END 2025-01-18 10:41 | disposition home or self-care (01) ==
LOC: CT 10:40
PROVIDERS: PCP Family Medicine; Visit Provider Family Medicine
DX: K57.92 Diverticulitis of intestine, part unspecified, without perforation or abscess without bleeding (principal)
CPT/HCPCS: 74177; Q9967

== ENCOUNTER 2025-01-30 12:12 | Outpatient (OUT) | payer BC, SELFPAY ==
--- OUTSIDE RECORDS SUMMARY | 2025-01-18 04:30 | XMS_ITS ---
Author Organization [facility] in [place] Address [address] [place] [address] Care Team Providers Care Radio News Anchor Name Role Phone Abilio Garcia Primary Care Provider [phone] Allergies No Known Allergies Results Component Value Reference Range Notes UA DIP NONAUTO WO MICRO (810 02) - IN OFFICE Reviewed date:01/18/2025 03:24:34 PM Interpretation: Performing Lab: Notes/Report: COLOR yellow CLARITYclearGLUCOSEnegBILIRUBIN+KETONE+SPECIFIC GRAVITY1.435CBXZZhedVV6.5PROTEIN +UROBILINOGENnegNITRITEnegLEUKOCYTE ESTERASEneg REASON FOR VISIT Presents to office alone for c/o fever, left lower back pain, and fatigue Medications Medication SIG (Take, Route, Frequency, Duration) Notes Start Date End Date Status Ciprofloxacin HCl 500 MG 1 tablet Orally every 1 2 hrs; Duration: 10 days 5ActiveAtomoxetine HCl 25 MG1 capsule Orally Twice a day; Duration: 30 day(s)5ActivemetroNIDAZOLE 500 MG1 tablet Orally Three times a day; Duration: 10 days5ActiveImitrex 100 MG1 tablet at least 2 hours between doses as needed Orally Twice a day; Duration: Not-TakingBactrim DS 800-160 MG1 tablet Orally bid; Duration: 10 days5Active Social History Tobacco Use: Social History Observation Description Date Details (start date - stop date) Never Smoker NA - NA Tobacco Use/Smoking Question Answer Notes Patient is a nonsmoker AUDIT-C (Standard) Question Answer Notes Did you have a drink containing alcohol in the p ast year? No Yposdl3IszluaeqlminczNfhirgmn Problems Problem Type SNOMED Code ICD Code Onset Dates Problem Status W/U Status Risk Notes Problem Diverticulitis (48860432) Diverticulitis (K57.92) Activeconfirmed Vital Signs Temperature 98.7 degrees Fahrenheit 01/19/20 25 Blood pressure systolic 122 mm Hg 01/19/20 25 Blood pressure diastolic 62 mm Hg 025 Height 61 in 01/18/2025 Weight 126.8 lbs 01/18/2025 BMI 23.96 kg/m2 01/18/2025 Encounters Encounter Location Date Provider Diagnosis [facility] [address] [place] [address] 01/18/2025 Abilio Garcia Fever R50.9 and Diverticulitis K57.92 Assessments Encounter Date Diagnosis (ICD Code) Assessment Notes Treatment Notes Treatment Clinical Notes Section Notes 01/18/2025 Fever (ICD-10 - R50.9) 01/18/2025Diverticulitis (ICD-10 - K57.92) Plan Of Treatment Medication Medication Name Sig Start Date Stop Date Notes Ciprofloxacin HCl 500 MG 1 tablet Orally every 1 2 hrs; Duration: 10 days 01/18/2025 metroNIDAZOLE 500 MG1 tablet Orally Three times a day; Duration: 10 days 01/18/2025Pending Test Test Name Order Date CT ABD and PELV W CON 01/18/2025 Progress Notes * Kasandra MACIAS DDOB: [birth year] (29 yo F)Acc No.[id number]:01/18/2025 Progress Note Patient: Kasandra YAN :?Erik Garcia ([facility]), MDDOB:1995???Age: 29 Y???Sex:FemaleDate:01/18/2025Phone:[phone]:[address] [place] [id number] In:09:36 AM ESTCheck Out:10:16 AM EST Subjective: * Chief Complaints: * P resents to office alone for c/o fever, left lower back pain, and fatigue * HPI: ???General:? Nathanael nd left low back pain. * Active Problem List G43.009 Migraine without aur a and without status migrainosus, not intractable Modified On:07/07/2022 Status:hddxumzhqG44.2Amenorrhea, unspecified Modified On:12/10/2022 Status:wwdlnoamkL16.9Sinusitis Modified On:02/22/2023U Status:xymfdvyqkX55.9Allergic sinusitis Modified On:05/21/2024 Status:qsexlsijmZ63.2Seasonal allergic rhinitis Modified On:08/31/2024 Status:jmlhuyzndF47.92Diverticulitis Modified On:01/18/2025 Status:confirmed * Medical History: * Surgical History: T onsills laparotomy * Hospitalization/Major Diagno stic Procedure: * Family History: F ather: unknown. M other: alive, breast cancer, diagnosed with Cancer. * Social History: ???Tobacco Use:?Tobacco Use/Smoking?Patient is a?nonsmoker ???Drug/Alcohol:?AUDIT-C (Standard)?Did you have a drink containing alcohol in the past year??No ?Points?0 ?Interpretation?Negative * Medications: T akingAtomoxetine HCl 25 MG Capsule 1 capsule Orally Twice a day Bactrim DS(Sulfamethoxazole-Trimethoprim) 800-160 MG Tablet 1 tablet Orally bid Taking Atomoxetine HCl 25 MG Capsule 1 capsule Orally Twice a day Taking Bactrim DS(Sulfamethoxazole-Trimethoprim) 800-160 MG Tablet 1 tablet Orally bid Not-Taking/PRNImitrex(SUMAtriptan Succinate) 100 MG Tablet 1 tablet at least 2 hours between doses as needed Orally Twice a day Not-Taking/PRN Imitrex(SUMAtriptan Succinate) 100 MG Tablet 1 tablet at least 2 hours between doses as needed Orally Twice a day DiscontinuedAtomoxetine HCl 60 MG Capsule 1 capsule in the morning Orally Once a day Bactrim DS(Sulfamethoxazole-Trimethoprim) 800-160 MG Tablet 1 tablet Orally bid Ketoconazole 2 % Cream 1 application Externally Twice a day Promethazine HCl 25 MG Tablet 1 tablet as needed Orally q6h Strattera 60 MG Capsule 1 capsule in the morning Orally Once a day Tamiflu(Oseltamivir Phosphate) 75 MG Capsule 1 capsule Orally Twice a day Medication List reviewed and reconciled with the patientDiscontinued Atomoxetine HCl 60 MG Capsule 1 capsule in the morning Orally Once a day Discontinued Bactrim DS(Sulfamethoxazole-Trimethoprim) 800-160 MG Tablet 1 tablet Orally bid Discontinued Ketoconazole 2 % Cream 1 application Externally Twice a day Discontinued Promethazine HCl 25 MG Tablet 1 tablet as needed Orally q6h Discontinued Strattera 60 MG Capsule 1 capsule in the morning Orally Once a day Discontinued Tamiflu(Oseltamivir Phosphate) 75 MG Capsule 1 capsule Orally Twice a day Medication List reviewed and reconciled with the patient * Allergies: N .K.D.A.no[Allergies Verified] Objective: * Vitals: W t:126.8lbs, Ht: 61 in, BP:122/62mm Hg, Temp:98.7F, BMI:23.96Index, Ht-cm: 154.94 cm, Wt-k.52 kg. * Examination: ???Abdomen Exam:: ???LLQ tednnernss and Pain in LLQ ith palpation or RLQ. Assessment: * Assessment: 1.?Fever - R50.9 (Primary)???2.?Diverticulitis - K57.92??? Plan: * Treatment: Start Ciprofloxacin HCl Tablet, 500 MG, 1 tablet, Orally, every 12 hrs, 10 days, 20 Tablet;?Start metroNIDAZOLE Tablet, 500 MG, 1 tablet, Orally, Three times a day, 10 days, 30, Refills 0.?LAB: UA DIP NONAUTO WO MICRO (47159) - IN OFFICE (Collection Date & Time - 01/18/2025)2.?Diverticulitis?Imaging: CT ABD and PELV W CON * Labs: * L ab: UA DIP NONAUTO WO MICRO (52340) - IN OFFICE (Collection Date & Time - 01/18/2025) ?ValueReference Range?COLORyellow * C LARITY clear * G LUCOSE neg * B ILIRUBIN + * K ETONE + * S PECIFIC GRAVITY 1.020 * B LOOD neg * P H 6.5 * P ROTEIN + * U ROBILINOGEN neg * N ITRITE neg * L EUKOCYTE ESTERASE neg * Procedure Codes: 8 1002 URINALYSIS WO MICRO * * Sign off status: CompletedVisit Status:?CHK (Check Out) true * Provider: Donna Garcia ([facility])MD Date: 1 Generated for Printing/Faxing/eTransmitting on:?01/30/2025 12:17 PM EST History and Physical Notes * HPI (History of Present Illness) CategorySub-CategoryDetailNotesCategory NotesGeneralFer nd left low back pain Examination CategorySub-CategoryDetailNotesCategory NotesAbdomen Exam:LLQ tednnernss and Pain in LLQ ith palpation or RLQ
--- OUTSIDE RECORDS SUMMARY | 2025-01-25 07:15 | XMS_ITS ---
Author Organization The [facility] in [place] Address [address] [place] [address] Care Team Providers Care Enamel Finisher Name Role Phone Abilio Garcia Primary Care Provider REASON FOR VISIT start atb and renal US Medications Medication SIG (Take, Route, Frequency, Duration) Notes Start Date End Date Status Amoxicillin-Pot Clavulanate 875-125 MG 1 tablet Orally every 12 hrs; Duration: 10 days 01/25/2025tive Encounters Encounter Location Date Provider Diagnosis [address] [address] 01/25/2025 Abilio Garcia Dehydration E86. 0 Assessments Encounter Date Diagnosis (ICD Code) Assessment Notes Treatment Notes Treatment Clinical Notes Section Notes 01/25/2025 Dehydration (ICD-10 - E86.0) Plan Of Treatment Medication Medication Name Sig Start Date Stop Date Notes Amoxicillin-Pot Clavulanate 875-125 MG 1 tablet Orally every 12 hrs; Duration: 10 days 01/25/2025 Pending Test Test Name Order Date US KIDNEYS 01/25/2025 Progress Notes * Kasandra MACIAS DDOB: [birth year] (29 yo F)Acc No.[id number]:01/25/2025 Patient:?Kasandra MACIAS :1995???Age:29 Y???Sex:FemalePhone:[phone] Address:[address] [place] [address], [address] * Refills Start Amoxicillin-Pot Clavulanate Tablet, 875-125 MG, Orally, 20 Tablet, 1 tablet, every 12 hrs, 10days, Refills=0 Subjective: * Chief Complaints: * s tart atb and renal US * Medical History: * Surgical History: * Hospitalization/Major Diagno stic Procedure: * Medications: Objective: * Vitals: * Physical Examination: ??? Assessment: * Assessment: 1.?Dehydration - E86.0 (Primary)??? Plan: * Treatment: ?Imaging: US KIDNEYS2.?Others? Start Amoxicillin-Pot Clavulanate Tablet, 875-125 MG, 1 tablet, Orally, every 12 hrs, 10 days, 20 Tablet, Refills 0.?? * Procedure Codes: * true * Date:?Generated for Printing/Faxing/eTransmitting on:?01/30/2025 12:17 PM EST
--- OUTSIDE RECORDS SUMMARY | 2025-01-30 06:57 | XMS_ITS ---
Author Organization The [facility] in [place] Address [address] [place] [address] Care Team Providers Care Ballistic Technician Name Role Phone Abilio Garcia Primary Care Provider [phone] REASON FOR VISIT Sick Encounters Encounter Location Date Provider Diagnosis [facility] [address] [place] [address] 01/30/2025 Abilio Garcia Fever R50.9 and UTI (urinary tract infection) N39.0 Assessments Encounter Date Diagnosis (ICD Code) Assessment Notes Treatment Notes Treatment Clinical Notes Section Notes 01/30/2025 Fever (ICD-10 - R50.9) 01/30/2025UTI (urinary tract infection) (ICD-10 - N39.0) Plan Of Treatment Pending Test Test Name Order Date UA (URINALYSIS, COMPLETE) 01/30/2025 CBC W/AUTO DIFF 01/30/2025 CRP 01/30/2025 CULTURE URINE 01/30/2025 SED RATE WESTERGREN 01/30/2025 Progress Notes * Kasandra MACIAS DDOB: 4 (29 yo F)Acc No.[id number]:01/30/2025 Patient:?Kasandra MACIAS :1995???Age:29 Y???Sex:FemalePhone:[phone] Address:[address] [place] [address], [address] Subjective: * Chief Complaints: * S ick * Medical History: * Surgical History: * Hospitalization/Major Diagno stic Procedure: * Medications: Objective: * Vitals: * Physical Examination: ??? Assessment: * Assessment: 1.?Fever - R50.9 (Primary)???2.?UTI (urinary tract infection) - N39.0??? Plan: * Treatment: ?LAB: UA (URINALYSIS, COMPLETE)* STAT ?LAB: CBC W/AUTO DIFF* STAT ?LAB: CRP* STAT ?LAB: CULTURE URINE* STAT ?LAB: CHUCKY ARMSTRONG* STAT * Procedure Codes: * true * Date:?Generated for Printing/Faxing/eTransmitting on:?01/30/2025 12:17 PM EST
--- OUTSIDE RECORDS SUMMARY | 2025-01-30 12:17 | XMS_ITS | Encounter Summary ---
Author Organization [facility] Address [address] [place] [address] Care Team Providers Care Command Post Craftsman Name Role Phone Erik Garcia MD Primary Care Provider [phone] Erik Garcia MD Primary Care Provider [phone] Encounter Details DateTypeDepartmentCare Team (Latest Contact Info)Vaxwewpdegv78/02/2024Clinisync Result Encounter [facility] External Department Unsolicited Wisam Rodriguez DO [address] [place] [address] [place] [address] Social History Tobacco UseTypesPacks/DayYears UsedDateSmoking Tobacco: NeverAlcohol UseStandard Drinks/WeekCommentsYes0 (1 standard drink = 0.6 oz pure alcohol)caffeine: occasionalAUDIT-CAnswerDate RecordedQ1: How often do you have a drink containing alcohol?2-4 times a month01/28/2023Q2: How many drinks containing alcohol do you have on a typical day when you are drinking?1 or Q3: How often do you have six or more drinks on one occasion?Qrdpmp3001/28/2023CommentsYesSex and Gender InformationValueDate RecordedSex Assigned at ShlbxFjmluj67/28/2023 10:50 AM EDTLegal KgkYkohin04/15/2023 8:06 PM EDTGender CgrwixsoMznkte99/28/2023 10:50 AM EDTSexual QotaaqsdloqLssdrbiy68/28/2023 10:50 AM EDTdocumented as of this encounter Plan of Treatment Not on file documented as of this encounter Procedures Procedure NamePriorityDate/TimeAssociated DiagnosisCommentsUS OB BPP W NON-FNZUPI2806/28/2023 7:15 AM EDT documented in this encounter Results * US OB BPP W NON-STRESS (06/28/2023 7:15 AM EDT)Anatomical Region LateralityModalityOtherSpecimen (Source)Anatomical Location / Laterality Collection Method / VolumeCollection TimeReceived Time06/28/2023 7:15 AM EDT Narrative 06/28/2023 7:17 AM EDT The ?[address] ? [place] [address] ? Ultrasound Report ? Signed ? Patient: DEARTH,KASANDAR D ?MR#: [id number] ?? : 1995 ?Acct:[id number] ?? Age/Sex: 27 / F ?ADM Date: 06/27/23 ?? Loc: US ? Attending Dr: Wisam Rodriguez D.O. ? Ordering Physician: Wisam Rodriguez D.O. ?? Date of Service: 06/27/23 ?? Procedure(s): US OB BPP w non-stress ?? Accession Number(s): [id number] ? cc: Wisam Rodriguez D.O.; Erik Garcia M.D. ? The ? [address] ? [place] [address] ? Patient Name: ?? KASANDRA Donna ANGÉLICAMIYA ? MRN: [facility]:[id number] ? date: 1995 ?Sex: F ?? Assigned Patient Location: US ?? Current Patient Location: ? Accession/Order Number: [id number] ?? Exam Date: 06/27/2023 ??17:04 ?Report Date: 06/28/2023 ??07:15 ? At the request of: ?? WISAM ??JENNIFER ? Procedure: ??US OB BPP w non-stress ? EXAMINATION: US OB BPP w non-stress ? HISTORY: JOSESITO INCREASED O49.9XX0 ? COMPARISON: Ultrasound amniotic fluid volume 06/09/2023, ultrasound OB growth ?? 05/26/2023 ? TECHNIQUE: Ultrasound biophysical profile was performed in the radiology ?? department. ? BREATHING MOVEMENTS: 2.0 ?? GROSS BODY MOVEMENTS: 2.0 ?? TONE: 2.0 ?? QUALITATIVE AMNIOTIC FLUID VOLUME: 2.0 ? PRESENTATION: CEPHALIC ?? HEART RATE: 157.9 bpm bpm. ?? AMNIOTIC FLUID VOLUME: 19.2 cm ?? GESTATIONAL AGE: 32 weeks 3 days ? CONCLUSION: ? Total biophysical profile score 8.0. ? Electronically authenticated by: LAM ??SVEN ?? Date: 06/28/2023 ??07:15 ? Dictated By: ?Lam Vela M.D. ? Signed By: ?06/28/23 0717 ? DD/ 0715 ? TD/TT: ? Advertising Space Clerk: Procedure Note Radiology, Radiologist, MD - 06/30/2023 [place] [address] Ultrasound Report Signed Patient: KASANDRA MACIAS DMR#: [id number] : 1995Acct:[id number] Age/Sex: FADM Date: 06/27/23 Loc: US Attending Dr: Wisam Rodriguez D.O. Ordering Physician: Wisam Rodriguez D.O. Date of Service: 06/27/23 Procedure(s): US OB BPP w non-stress Accession Number(s): [id number] cc: Wisam Rodriguez D.O.; Erik Garcia M.D. The [place] [id number] Patient Name: KASANDRA MACIAS MRN: [facility]:[id number] date: 1995 Sex: F Assigned Patient Location: US Current Patient Location: Accession/Order Number: [id number] Exam Date: 06/27/2023 17:04 Report Date: 06/28/2023 07:15 At the request of: WISAM RODRIGUEZ Procedure: US OB BPP w non-stress EXAMINATION: US OB BPP w non-stress HISTORY: JOSESITO INCREASED O49.9XX0 COMPARISON: Ultrasound amniotic fluid volume 06/09/2023, ultrasound OBgrowth 05/26/2023 TECHNIQUE: Ultrasound biophysical profile was performed in the radiology department. BREATHING MOVEMENTS: 2.0 GROSS BODY MOVEMENTS: 2.0 TONE: 2.0 QUALITATIVE AMNIOTIC FLUID VOLUME: 2.0 PRESENTATION: CEPHALIC HEART RATE: 157.9 bpm bpm. AMNIOTIC FLUID VOLUME: 19.2 cm GESTATIONAL AGE: 32 weeks 3 days CONCLUSION: Total biophysical profile score 8.0. Electronically authenticated by: LAM VELA Date: 06/28/2023 07:15 Dictated By: Lam Vela M.D. Signed By:06/28/23716 DD/ 4 TD/TT: Advertising Space Clerk: Authorizing ProviderResult TypeResult StatusCorey Jennifer DOCLINISYNC IMAGINGFinal Result documented in this encounter Visit Diagnoses Not on filedocumented in this encounter Care Teams Team MemberRelationshipSpecialtyStart DateEnd Date Erik Garcia MD PCP - GeneralFamily Medicine Erik Garcia MD [address] [place] [address] [phone] PCP - GeneralFamily Medicine08/21/24documented as of this encounter
--- OUTSIDE RECORDS SUMMARY | 2025-01-30 12:17 | XMS_ITS | Encounter Summary ---
Author Organization [facility] Address [address] [place] [address] Care Team Providers Care Process Lead Name Role Phone Erik Garcia MD Primary Care Provider [phone] Erik Garcia MD Primary Care Provider [phone] Encounter Details DateTypeDepartmentCare Team (Latest Contact Info)Usxsdsozdvu18/01/2025linisync Result Encounter [facility] External Department Unsolicited Ricardo Rodriguez DO [address] [place] [address] [place] [address] Social History Tobacco UseTypesPacks/DayYears UsedDateSmoking Tobacco: NeverAlcohol UseStandard Drinks/WeekCommentsYes0 (1 standard drink = 0.6 oz pure alcohol)caffeine: occasionalAUDIT-CAnswerDate RecordedQ1: How often do you have a drink containing alcohol?2-4 times a month01/28/2023Q2: How many drinks containing alcohol do you have on a typical day when you are drinking?1 or Q3: How often do you have six or more drinks on one occasion?Dnuimb3301/28/2023CommentsUnknown Sex and Gender InformationValueDate RecordedSex Assigned at BirthFemale 11/22/2022 10:50 AM EDTLegal RgtXsxtrz22/15/2023 8:06 PM EDTGender Identity Zyljmr6811/22/2022 10:50 AM EDTSexual LhjelksrrbaDthrjzuj50/28/2023 10:50 AM EDT documented as of this encounter Plan of Treatment Not on file documented as of this encounter Procedures Procedure NamePriorityDate/TimeAssociated DiagnosisCommentsUS PELVIS W/ YMJPTAVQDRCH08/01/2025 3:32 AM EST documented in this encounter Results * US PELVIS W/ TRANSVAGINAL (03/28/2024 3:32 AM EST)Anatomical RegionLaterality ModalityOtherSpecimen (Source)Anatomical Location / LateralityCollection Method / VolumeCollection TimeReceived Time03/28/2024 3:32 AM EST Narrative 03/28/2024 3:35 AM EST The [facility] ?[address] ? [place] [address] ? Ultrasound Report ? Signed ? Patient: DEARTH,KAASNDRA D ?MR#: [id number] ?? : 1995 ?Acct:[id number] ?? Age/Sex: 28 / F ?ADM Date: 03/27/24 ?? Loc: US ? Attending Dr: Ricardo Rodriguez D.O. ? Ordering Physician: Ricardo Rodriguez D.O. ?? Date of Service: 03/27/24 ?? Procedure(s): US pelvis w/ transvaginal ?? Accession Number(s): [id number] ? cc: Ricardo Rodriguez D.O.; Erik Garcia M.D. ? The [facility] ? [address] ? [place] [address] ? Patient Name: ?? [facility] ? MRN: [facility]:[id number] ? date: 1995 ?Sex: F ?? Assigned Patient Location: US ?? Current Patient Location: ? Accession/Order Number: [id number] ?? Exam Date: 03/27/2024 ??14:05 ?Report Date: 03/28/2024 ??03:32 ? At the request of: ?? RICARDO ??JENNIFER ? Procedure: ??US pelvis w/ transvaginal ? EXAMINATION: US pelvis w/ transvaginal ? HISTORY: Heavy vaginal bleeding ? COMPARISON: No relevant comparison available. ? TECHNIQUE: Transabdominal and/or transvaginal sonographic examination was ?? performed as indicated by examination type. ? FINDINGS: ?? UTERUS: Normal size and appearance. Uterus size: 6.7 x 4.6 x 4.0 cm. ?? ENDOMETRIUM: Normal homogeneous appearance. Endometrial thickness: 2 mm ? RIGHT OVARY: Normal size and appearance. Duplex Doppler demonstrates normal ?? waveform and flow; resistive index 0.7. Ovary size: 3.0 x 2.1 x 1.5 cm ? LEFT OVARY: Normal size and appearance. Duplex Doppler demonstrates normal ?? waveform and flow; resistive index 0.6. Ovary size: 3.0 x 1.3 x 1.7 cm ? CUL-DE-SAC: Unremarkable. No significant free fluid. ?? BLADDER: Unremarkable. ?? OTHER: None. ? US/US pelvis w/ transvaginal ?? IMPRESSION: ? 1. No abnormal or suspicious findings to account for patient's symptoms. ? Electronically authenticated by: LAM ??SVEN ?? Date: 03/28/2024 ??03:32 ? Dictated By: ?Lam Vela M.D. ? Signed By: ?03/28/24334 ? DD/ 0332 ? TD/TT: ? Bandoleer Packer: Procedure Note Radiology, Radiologist, MD - 03/28/2024 [place] [address] Ultrasound Report Signed Patient: KASANDRA MACIAS DMR#: [id number] : 1995Acct:[id number] Age/Sex: 28 / FADM Date: 03/27/24 Loc: US Attending Dr: Ricardo Rodriguez D.O. Ordering Physician: Ricardo Rodriguez D.O. Date of Service: 03/27/24 Procedure(s): US pelvis w/ transvaginal Accession Number(s): [id number] cc: Ricardo Rodriguez D.O.; Erik Garcia M.D. The [place] [id number] Patient Name: KASANDRA MACIAS MRN: [facility]:[id number] date: 1995 Sex: F Assigned Patient Location: US Current Patient Location: Accession/Order Number: [id number] Exam Date: 03/27/2024 14:05 Report Date: 03/28/2024 [...] OVARY: Normal size and appearance. Duplex Doppler demonstratesnormal waveform and flow; resistive index 0.7. Ovary [...] 03:32 Dictated By: Lam Vela M.D. Signed By:03/28/24 0335 DD/ 0332 TD/TT: Bandoleer Packer: Authorizing ProviderResult TypeResult StatusCorey Jennifer DOCLINISYNC IMAGINGFinal Result documented in this encounter Visit Diagnoses Not on filedocumented in this encounter Care Teams Team MemberRelationshipSpecialtyStart DateEnd Date Erik Garcia MD PCP - GeneralFamily Medicine Erik Garcia MD [address] [place] [address] PCP - GeneralFamily Medicine08/21/24documented as of this encounter
--- OUTSIDE RECORDS SUMMARY | 2025-01-30 12:17 | XMS_ITS | Encounter Summary ---
Author Organization [facility] Address [address] [place] [address] Care Team Providers Care Light Armored Vehicle Officer Name Role Phone Erik Garcia MD Primary Care Provider [phone] Erik Garcia MD Primary Care Provider [phone] Encounter Details DateTypeDepartmentCare Team (Latest Contact Info)Xehzoywlthx26/14/2024Clinisync Result Encounter [facility] External Department Unsolicited Ricardo Rodriguez DO [address] [place] [address] [place] [address] Social History Tobacco UseTypesPacks/DayYears UsedDateSmoking Tobacco: NeverAlcohol UseStandard Drinks/WeekCommentsYes0 (1 standard drink = 0.6 oz pure alcohol)caffeine: occasionalAUDIT-CAnswerDate RecordedQ1: How often do you have a drink containing alcohol?2-4 times a month01/28/2023Q2: How many drinks containing alcohol do you have on a typical day when you are drinking?1 or Q3: How often do you have six or more drinks on one occasion?Ipkpxn6101/28/2023CommentsYesSex and Gender InformationValueDate RecordedSex Assigned at YkvvjHgpemh92/28/2023 10:50 AM EDTLegal RvjDuuseg84/15/2023 8:06 PM EDTGender ZqezfkhsKnlyyd80/28/2023 10:50 AM EDTSexual YefbozlpyaaMddqfppp94/28/2023 10:50 AM EDTdocumented as of this encounter Plan of Treatment Not on file documented as of this encounter Procedures Procedure NamePriorityDate/TimeAssociated DiagnosisCommentsUS OB BPP W NON-KKZOPT5808/09/2023 7:28 AM EDT documented in this encounter Results * US OB BPP W NON-STRESS (08/09/2023 7:28 AM EDT)Anatomical Region LateralityModalityOtherSpecimen (Source)Anatomical Location / Laterality Collection Method / VolumeCollection TimeReceived Time08/09/2023 7:28 AM EDT Narrative 08/09/2023 7:30 AM EDT The [facility] ?[address] ? [place] [address] ? Ultrasound Report ? Signed ? Patient: DEARTH,KASANDRA D ?MR#: [id number] ?? : 1995 ?Acct:[id number] ?? Age/Sex: 27 / F ?ADM Date: 08/08/23 ?? Loc: US ? Attending Dr: Ricardo Rodriguez D.O. ? Ordering Physician: Ricardo Rodriguez D.O. ?? Date of Service: 08/08/23 ?? Procedure(s): US OB BPP w non-stress ?? Accession Number(s): [id number] ? cc: Ricardo Rodriguez D.O.; Erik Garcia M.D. ? The [facility] ? [address] ? [place] [address] ? Patient Name: ?? KASANDRA MACIAS ? MRN: [facility]:[id number] ? date: 1995 ?Sex: F ?? Assigned Patient Location: US ?? Current Patient Location: ? Accession/Order Number: [id number] ?? Exam Date: 08/08/2023 ??18:00 ?Report Date: 08/09/2023 ??07:28 ? At the request of: ?? RICARDO ??JENNIFER ? Procedure: ??US OB BPP w non-stress ? EXAMINATION: US OB BPP w non-stress ? HISTORY: JOSESITO INCREASED O40.9XX0 ? COMPARISON: No relevant comparison available. ? TECHNIQUE: Ultrasound biophysical profile was performed in the radiology ?? department. ? BREATHING MOVEMENTS: 2.0 ?? GROSS BODY MOVEMENTS: 2.0 ?? TONE: 2.0 ?? QUALITATIVE AMNIOTIC FLUID VOLUME: 2.0 ? PRESENTATION: CEPHALIC ?? HEART RATE: 131.1 bpm bpm. ?? AMNIOTIC FLUID VOLUME: 15.1 cm ?? GESTATIONAL AGE: 38 weeks 3 days ? CONCLUSION: ? 1. Total biophysical profile score 8.0. ?? 2. Normal amniotic fluid index. ? Electronically authenticated by: LAM ??SVEN ?? Date: 08/09/2023 ??07:28 ? Dictated By: ?Lam Vela M.D. ? Signed By: ?05/14/24 0730 ? DD/ 0728 ? TD/TT: ? Larry Operator: Procedure Note Radiology, Radiologist, - 08/09/2023 [place] [address] Ultrasound Report Signed Patient: KASANDRA MACIAS DMR#: [id number] : 1995Acct:[id number] Age/Sex: 27 / FADM Date: 08/08/23 Loc: US Attending Dr: Ricardo Rodriguez D.O. Ordering Physician: Ricardo Rodriguez D.O. Date of Service: 08/08/23 Procedure(s): US OB BPP w non-stress Accession Number(s): [id number] cc: Ricardo Rodriguez D.O.; Erik Garcia M.D. The [place] [id number] Patient Name: KASANDRA MACIAS MRN: [facility]:[id number] date: 1995 Sex: F Assigned Patient Location: US Current Patient Location: Accession/Order Number: [id number] Exam Date: 08/08/2023 18:00 Report Date: 08/09/2023 07:28 At the request of: RICARDO RODRIGUEZ Procedure: US OB BPP w non-stress EXAMINATION: US OB BPP w non-stress HISTORY: JOSESITO INCREASED O40.9XX0 COMPARISON: No relevant comparison available. TECHNIQUE: Ultrasound biophysical profile was performed in the radiology department. BREATHING MOVEMENTS: 2.0 GROSS BODY MOVEMENTS: 2.0 TONE: 2.0 QUALITATIVE AMNIOTIC FLUID VOLUME: 2.0 PRESENTATION: CEPHALIC HEART RATE: 131.1 bpm bpm. AMNIOTIC FLUID VOLUME: 15.1 cm GESTATIONAL AGE: 38 weeks 3 days CONCLUSION: 1. Total biophysical profile score 8.0. 2. Normal amniotic fluid index. Electronically authenticated by: LAM VELA Date: 08/09/2023 07:28 Dictated By: Lam Vela M.D. Signed By:08/09/23729 DD/ 7 TD/TT: Larry Operator: Authorizing ProviderResult TypeResult StatusCorey Jennifer DOCLINISYNC IMAGINGFinal Result documented in this encounter Visit Diagnoses Not on filedocumented in this encounter Care Teams Team MemberRelationshipSpecialtyStart DateEnd Date Erik Garcia MD PCP - GeneralFamily Medicine/ Erik Garcia MD [address] [place] [phone] PCP - GeneralFamily Medicine08/21/24documented as of this encounter
--- OUTSIDE RECORDS SUMMARY | 2025-01-30 12:17 | XMS_ITS | Encounter Summary ---
Author Organization [facility] Address [address] [place] [address] Care Team Providers Care Press Operator Meat Name Role Phone Erik Garcia MD Primary Care Provider [phone] rEik Garcia MD Primary Care Provider [phone] Encounter Details DateTypeDepartmentCare Team (Latest Contact Info)Pyphqhlbfdj83/07/2024Clinisync Result Encounter [facility] External Department Unsolicited Ricardo Rodriguez DO [address] [place] [address] [place] [address] Social History Tobacco UseTypesPacks/DayYears UsedDateSmoking Tobacco: NeverAlcohol UseStandard Drinks/WeekCommentsYes0 (1 standard drink = 0.6 oz pure alcohol)caffeine: occasionalAUDIT-CAnswerDate RecordedQ1: How often do you have a drink containing alcohol?2-4 times a month01/28/2023Q2: How many drinks containing alcohol do you have on a typical day when you are drinking?1 or Q3: How often do you have six or more drinks on one occasion?Bvtyiq1201/28/2023CommentsYesSex and Gender InformationValueDate RecordedSex Assigned at WbsyjNeqofa13/28/2023 10:50 AM EDTLegal CleGbvnsq69/15/2023 8:06 PM EDTGender HwlohrtjRdppex23/28/2023 10:50 AM EDTSexual JdjmqbjwycbErijndto65/28/2023 10:50 AM EDTdocumented as of this encounter Plan of Treatment Not on file documented as of this encounter Procedures Procedure NamePriorityDate/TimeAssociated DiagnosisCommentsUS OB BPP W NON-YKVDSS3308/02/2023 8:22 AM EDT documented in this encounter Results * US OB BPP W NON-STRESS (08/02/2023 8:22 AM EDT)Anatomical Region LateralityModalityOtherSpecimen (Source)Anatomical Location / Laterality Collection Method / VolumeCollection TimeReceived Time08/02/2023 8:22 AM EDT Narrative 08/02/2023 8:24 AM EDT [facility] ?[address] ? [place] [address] ? Ultrasound Report ? Signed ? Patient: DEARTH,KASANDRA D ?MR#: [id number] ?? : 1995 ?Acct:[id number] ?? Age/Sex: 27 / F ?ADM Date: 08/01/23 ?? Loc: US ? Attending Dr: Ricardo Rodriguez D.O. ? Ordering Physician: Ricardo Rodriguez D.O. ?? Date of Service: 08/01/23 ?? Procedure(s): US OB BPP w non-stress ?? Accession Number(s): [id number] ? cc: Ricardo Rodriguez D.O.; Erik Garcia M.D. ? [facility] ? [address] ? [place] [address] ? Patient Name: ?? KASANDRA MACIAS ? MRN: [facility]:[id number] ? date: 1995 ?Sex: F ?? Assigned Patient Location: ?? Current Patient Location: US ?? Accession/Order Number: [id number] ?? Exam Date: 08/01/2023 ??21:30 ?Report Date: 08/02/2023 ??08:22 ? At the request of: ?? RICARDO ??JENNIFER ? Procedure: ??US OB BPP w non-stress ? EXAMINATION: US OB BPP w non-stress ? HISTORY: JOSESITO INCREASED O40.9XX0 ? COMPARISON: Ultrasound OB biophysical 07/25/2023 ? TECHNIQUE: Ultrasound biophysical profile was performed in the radiology ?? department. ? BREATHING MOVEMENTS: 2.0 ?? GROSS BODY MOVEMENTS: 2.0 ?? TONE: 2.0 ?? QUALITATIVE AMNIOTIC FLUID VOLUME: 2.0 ? PRESENTATION: CEPHALIC ?? HEART RATE: 133.7 bpm bpm. ?? AMNIOTIC FLUID VOLUME: 14.4 cm ?? GESTATIONAL AGE: 37 weeks 3 days ? CONCLUSION: ? Total biophysical profile score 8.0. ? Electronically authenticated by: LAM ??SVEN ?? Date: 08/02/2023 ??08:22 ? Dictated By: ?Lam Vela M.D. ? Signed By: ?08/02/23823 ? DD/ 0822 ? TD/TT: ? Air Tucker: Procedure Note Radiology, Radiologist, - 08/02/2023 [place] [address] Ultrasound Report Signed Patient: KASANDRA MACIAS DMR#: [id number] : 1995Acct:[id number] Age/Sex: Date: 08/01/23 Loc: US Attending Dr: Ricardo Rodriguez D.O. Ordering Physician: Ricardo Rodriguez D.O. Date of Service: 08/01/23 Procedure(s): US OB BPP w non-stress Accession Number(s): [id number] cc: Ricardo Rodriguez D.O.; Erik Garcia M.D. The [place] [id number] Patient Name: KASANDRA MACIAS MRN: [facility]:[id number] date: 1995 Sex: F Assigned Patient Location: Current Patient Location: US Accession/Order Number: [id number] Exam Date: 08/01/2023 21:30 Report Date: 08/02/2023 08:22 At the request of: RICARDO RODRIGUEZ Procedure: US OB BPP w non-stress EXAMINATION: US OB BPP w non-stress HISTORY: JOSESITO INCREASED O40.9XX0 COMPARISON: Ultrasound OB biophysical 07/25/2023 TECHNIQUE: Ultrasound biophysical profile was performed in the radiology department. BREATHING MOVEMENTS: 2.0 GROSS BODY MOVEMENTS: 2.0 TONE: 2.0 QUALITATIVE AMNIOTIC FLUID VOLUME: 2.0 PRESENTATION: CEPHALIC HEART RATE: 133.7 bpm bpm. AMNIOTIC FLUID VOLUME: 14.4 cm GESTATIONAL AGE: 37 weeks 3 days CONCLUSION: Total biophysical profile score 8.0. Electronically authenticated by: LAM VELA Date: 08/02/2023 08:22 Dictated By: Lam Vela M.D. Signed By:08/02/23823 DD/ 1 TD/TT: Air Tucker: Authorizing ProviderResult TypeResult StatusCorey Jennifer DOCLINISYNC IMAGINGFinal Result documented in this encounter Visit Diagnoses Not on filedocumented in this encounter Care Teams Team MemberRelationshipSpecialtyStart DateEnd Date Erik Garcia MD PCP - GeneralFamily Medicine/ [place] [address] [place] [phone] PCP - GeneralFamily Medicine08/21/24documented as of this encounter
--- OUTSIDE RECORDS SUMMARY | 2025-01-30 12:17 | XMS_ITS | Clinical Summary ---
Author Organization [facility] Address [address] [place] [address] Care Team Providers Care Escrow Officer Name Role Phone Erik Garcia MD Primary Care Provider [phone] Allergies No known active allergies Medications No known medications Active Problems ProblemNoted DateDiagnosed Date32 weeks gestation of ([facility]) 06/30/2023Third trimester ([facility])06/13/20236154Ccwfwm27/29/2024 Pkhqvekhtdvb71/29/2024FI (amniotic fluid index) increased ([facility])05/26/2023 Encounters DateTypeDepartmentCare EqgpPebsomqilnn47/19/2025Telephone [facility] [address] [place] [address] [place] [address] Alethea Reich MA from Last [...] 01/28/2023CommentsNoSex and Gender InformationValueDate RecordedSex Assigned at PvuxgSudevf87/28/2023 10:50 AM EDTLegal JkkDkpyav94/15/2023 8:06 PM EDTGender OafnkpluBhipam69/28/2023 10:50 AM EDTSexual OrientationStraight 11/22/2022 10:50 AM EDT Last Filed Vital Signs Vital SignReadingTime TakenCommentsBlood Nivaasqy653/72009/24/2024 11:01 AM EDT Pulse--Temperature--Respiratory Rate--Oxygen Saturation--Inhaled Oxygen Concentration--Wizngg76.5 kg (140 lb)09/24/2024 11:01 AM UEOFdfedx853.9 cm (5' 1 )11/23/2022 10:37 AM EDTBody Mass Index26.45011/23/2022 10:37 AM EDT Plan of Treatment Health MaintenanceDue DateLast DoneCommentsMMR Vaccines (1 of 1 - Standard series)1994DTaP/Tdap/Td Vaccines (1 - Tdap)2000Varicella Vaccines (1 of 2 - 13+ 2-dose series)2006Hepatitis B Vaccines (1 of 3 - 19+ 3-dose series)2012HPV Vaccines (1 - 3-dose SCDM series)2020HPV/Cotest 4COVID-19 Vaccine ( - season)/04/2020, 06/16/2020, 05/23/2020Influenza Vaccine (#1)/, 12/30/2020, 12/26/2020, Additional history existsCervical Cancer Hslxrolyd68/19/2026Pap Smear03/15/2026 03/15/2023HIB VaccinesAged OutNo longer eligible based on patient's age to complete this topicHepatitis A VaccinesAged OutNo longer eligible based on patient's age to complete this topicIPV VaccinesAged OutNo longer eligible based on patient's age to complete this topicMeningococcal B VaccineAged OutNo longer eligible based on patient's age to complete this topicMeningococcal VaccineAged OutNo longer eligible based on patient's age to complete this topicPneumococcal Vaccine: Pediatrics (0 to 5 Years) and At-Risk Patients (6 to 64 Years)Aged Out No longer eligible based on patient's age to complete this topicRotavirus VaccinesAged OutNo longer eligible based on patient's age to complete this topic Procedures Procedure NamePriorityDate/TimeAssociated DiagnosisCommentsPAP SMEARRoutine 03/15/2023 12:00 [...] Most Recently Relevant to Health Maintenance Insurance Care Teams Team MemberRelationshipSpecialtyStart DateEnd Erik Garcia MD [address] [place] [address] PCP - GeneralFamily Medicine08/21/24
--- OUTSIDE RECORDS SUMMARY | 2025-01-30 12:17 | XMS_ITS | Encounter Summary ---
Author Organization [facility] Address [address] [place] [address] Care Team Providers Care Surveillance Systems Analyst Name Role Phone Erik Garcia MD Primary Care Provider [phone] Erik Garcia MD Primary Care Provider [phone] Encounter Details DateTypeDepartmentCare Team (Latest Contact Info)Wyfbxhhibjh88/23/2024Clinisync Result Encounter [facility] External Department Unsolicited Ricardo Rodriguez DO [address] [place] [address] [place] [address] Social History Tobacco UseTypesPacks/DayYears UsedDateSmoking Tobacco: NeverAlcohol UseStandard Drinks/WeekCommentsYes0 (1 standard drink = 0.6 oz pure alcohol)caffeine: occasionalAUDIT-CAnswerDate RecordedQ1: How often do you have a drink containing alcohol?2-4 times a month01/28/2023Q2: How many drinks containing alcohol do you have on a typical day when you are drinking?1 or Q3: How often do you have six or more drinks on one occasion?Ythxxq2801/28/2023CommentsYesSex and Gender InformationValueDate RecordedSex Assigned at SmkudNebebr80/28/2023 10:50 AM EDTLegal CecJfwvhb98/15/2023 8:06 PM EDTGender MpqppxbqAcqvla24/28/2023 10:50 AM EDTSexual NolzampfdopRljunlbq40/28/2023 10:50 AM EDTdocumented as of this encounter Plan of Treatment Not on file documented as of this encounter Procedures Procedure NamePriorityDate/TimeAssociated DiagnosisCommentsUS OB BPP W NON-QRYTGV9507/19/2023 7:15 AM EDT documented in this encounter Results * US OB BPP W NON-STRESS (07/19/2023 7:15 AM EDT)Anatomical Region LateralityModalityOtherSpecimen (Source)Anatomical Location / Laterality Collection Method / VolumeCollection TimeReceived Time07/19/2023 7:15 AM EDT Narrative 07/19/2023 7:17 AM EDT [facility] ?[address] ? [place] [address] ? Ultrasound Report ? Signed ? Patient: DEARTH,KASANDRA D ?MR#: [id number] ?? : 1995 ?Acct:[id number] ?? Age/Sex: 27 / F ?ADM Date: 07/18/23 ?? Loc: US ? Attending Dr: Ricardo Rodriguez D.O. ? Ordering Physician: Ricardo Rodriguez D.O. ?? Date of Service: 07/18/23 ?? Procedure(s): US OB BPP w non-stress ?? Accession Number(s): [id number] ? cc: Ricardo Rodriguez D.O.; Erik Garcia M.D. ? [facility] ? [address] ? [place] [address] ? Patient Name: ?? KASANDRA LINDSAYBradly ? MRN: [facility]:[id number] ? date: 1995 ?Sex: F ?? Assigned Patient Location: [facility] ?? Current Patient Location: ? Accession/Order Number: [id number] ?? Exam Date: 07/18/2023 ??17:12 ?Report Date: 07/19/2023 ??07:15 ? At the request of: ?? RICARDO ??JENNIFER ? Procedure: ??US OB BPP w non-stress ? EXAMINATION: US OB BPP w non-stress ? HISTORY: POLYHYDRAMINOS AFFECTING O40.9XX0 ? COMPARISON: No relevant comparison available. ? TECHNIQUE: Ultrasound biophysical profile was performed in the radiology ?? department. ? FINDINGS: ?? BREATHING MOVEMENTS: 0.0 ?? GROSS BODY MOVEMENTS: 2.0 ?? TONE: 2.0 ?? QUALITATIVE AMNIOTIC FLUID VOLUME: 2.0 ? PRESENTATION: CEPHALIC ?? HEART RATE: 134.3 bpm H.B./min ?? AMNIOTIC FLUID VOLUME: 19.4 cm cm ?? GESTATIONAL AGE: 35 weeks 3 days ? CONCLUSION: ? Total biophysical profile score: 6.0 ? Electronically authenticated by: DUDLEY ??EDGAR ?? Date: 07/19/2023 ??07:15 ? Dictated By: ?Dudley Hernández M.D. ? Signed By: ?07/19/23 0717 ? DD/ 0715 ? TD/TT: ? Medical Office Professional Instructor: Procedure Note Radiology, Radiologist, - 07/19/2023 [place] [address] Ultrasound Report Signed Patient: KASANDRA MACIAS DMR#: [id number] : 1995Acct:[id number] Age/Sex: 27 FADM Date: 07/18/23 Loc: US Attending Dr: Ricardo Rodriguez D.O. Ordering Physician: Ricardo Rodriguez D.O. Date of Service: 07/18/23 Procedure(s): US OB BPP w non-stress Accession Number(s): [id number] cc: Ricardo Rodriguez D.O.; Erik Garcia M.D. [facility] [place] [id number] Patient Name: KASANDRA MACIAS MRN: [facility]:[id number] date: 1995 Sex: F Assigned Patient Location: [facility] Current Patient Location: Accession/Order Number: [id number] Exam Date: 07/18/2023 17:12 Report Date: 07/19/2023 07:15 At the request of: RICARDO RODRIGUEZ Procedure: US OB BPP w non-stress EXAMINATION: US OB BPP w non-stress HISTORY: POLYHYDRAMINOS AFFECTING O40.9XX0 COMPARISON: No relevant comparison available. TECHNIQUE: Ultrasound biophysical profile was performed in the radiology department. FINDINGS: BREATHING MOVEMENTS: 0.0 GROSS BODY MOVEMENTS: 2.0 TONE: 2.0 QUALITATIVE AMNIOTIC FLUID VOLUME: 2.0 PRESENTATION: CEPHALIC HEART RATE: 134.3 bpm H.B./min AMNIOTIC FLUID VOLUME: 19.4 cm cm GESTATIONAL AGE: 35 weeks 3 days CONCLUSION: Total biophysical profile score: 6.0 Electronically authenticated by: DUDLEY HERNÁNDEZ Date: 07/19/2023 07:15 Dictated By: Dudley Hernández M.D. Signed By:07/19/23716 DD/ 4 TD/TT: Medical Office Professional Instructor: Authorizing ProviderResult TypeResult StatusCorey Jennifer DOCLINISYNC IMAGINGFinal Result documented in this encounter Visit Diagnoses Not on filedocumented in this encounter Care Teams Team MemberRelationshipSpecialtyStart DateEnd Date Erik Garcia MD PCP - GeneralFamily Medicine/ Erik Garcia MD [facility] [place] [address] PCP - GeneralFamily Medicine08/21/24documented as of this encounter
--- OUTSIDE RECORDS SUMMARY | 2025-01-30 12:17 | XMS_ITS | Encounter Summary ---
Author Organization [facility] Address [address] [place] [address] Care Team Providers Care Av Specialist Name Role Phone Erik Garcia MD Primary Care Provider [phone] Erik Garcia MD Primary Care Provider [phone] Encounter Details DateTypeDepartmentCare Team (Latest Contact Info)Yznyuxdimjh39/11/2024Clinisync Result Encounter [facility] External Department Unsolicited Ricardo Rodriguez DO [address] [place] [address] [place] [address] Social History Tobacco UseTypesPacks/DayYears UsedDateSmoking Tobacco: NeverAlcohol UseStandard Drinks/WeekCommentsYes0 (1 standard drink = 0.6 oz pure alcohol)caffeine: occasionalAUDIT-CAnswerDate RecordedQ1: How often do you have a drink containing alcohol?2-4 times a month01/28/2023Q2: How many drinks containing alcohol do you have on a typical day when you are drinking?1 or Q3: How often do you have six or more drinks on one occasion?Jjeiud2401/28/2023CommentsYesSex and Gender InformationValueDate RecordedSex Assigned at WxjguVtfpbw44/28/2023 10:50 AM EDTLegal DfzMynhrj21/15/2023 8:06 PM EDTGender JsvrjwfeNiyubn64/28/2023 10:50 AM EDTSexual XulogmzbrubWmlgbdvb98/28/2023 10:50 AM EDTdocumented as of this encounter Plan of Treatment Not on file documented as of this encounter Procedures Procedure NamePriorityDate/TimeAssociated DiagnosisCommentsUS OB BPP W NON-LIKJLL0407/07/2023 8:02 AM EDT documented in this encounter Results * US OB BPP W NON-STRESS (07/07/2023 8:02 AM EDT)Anatomical Region LateralityModalityOtherSpecimen (Source)Anatomical Location / Laterality Collection Method / VolumeCollection TimeReceived Time07/07/2023 8:02 AM EDT Narrative 07/07/2023 8:04 AM EDT [facility] ?[address] ? [place] [address] ? Ultrasound Report ? Signed ? Patient: DEARTH,KASANDRA D ?MR#: [id number] ?? : 1995 ?Acct:[id number] ?? Age/Sex: 27 / F ?ADM Date: 07/06/23 ?? Loc: US ? Attending Dr: Ricardo Rodriguez D.O. ? Ordering Physician: Ricardo Rodriguez D.O. ?? Date of Service: 07/06/23 ?? Procedure(s): US OB BPP w non-stress ?? Accession Number(s): [id number] ? cc: Ricardo Rodriguez D.O.; Erik Garcia M.D. ? [facility] ? [address] ? [place] [address] ? Patient Name: ?? KASANDRA MACIAS ? MRN: [facility]:[id number] ? date: 1995 ?Sex: F ?? Assigned Patient Location: [facility] ?? Current Patient Location: ? Accession/Order Number: [id number] ?? Exam Date: 07/06/2023 ??19:06 ?Report Date: 07/07/2023 ??08:02 ? At the request of: ?? RICARDO ??JENNIFER ? Procedure: ??US OB BPP w non-stress ? EXAMINATION: US OB BPP w non-stress ? HISTORY: JOSESITO INCREASED O40.9XX0 ? COMPARISON: Ultrasound OB biophysical 06/27/2023 ? TECHNIQUE: Ultrasound biophysical profile was performed in the radiology ?? department. ? BREATHING MOVEMENTS: 2.0 ?? GROSS BODY MOVEMENTS: 2.0 ?? TONE: 2.0 ?? QUALITATIVE AMNIOTIC FLUID VOLUME: 2.0 ? PRESENTATION: CEPHALIC ?? HEART RATE: 131.7 bpm bpm. ?? AMNIOTIC FLUID VOLUME: 20.8 cm ?? GESTATIONAL AGE: 33 weeks 5 days ? CONCLUSION: ? Total biophysical profile score 8.0. ? Electronically authenticated by: LAM ??SVEN ?? Date: 07/07/2023 ??08:02 ? Dictated By: ?Lam Vela M.D. ? Signed By: ?07/07/23 0804 ? DD/ 0802 ? TD/TT: ? Communications Manager: Procedure Note Radiology, Radiologist, - 07/07/2023 [place] [address] Ultrasound Report Signed Patient: KASANDRA MACIAS DMR#: [id number] : 1995Acct:[id number] Age/Sex: 27 FADM Date: 07/06/23 Loc: US Attending Dr: Ricardo Rodriguez D.O. Ordering Physician: Ricardo Rodriguez D.O. Date of Service: 07/06/23 Procedure(s): US OB BPP w non-stress Accession Number(s): [id number] cc: Ricardo Rodriguez D.O.; Erik Garcia M.D. The [place] [id number] Patient Name: KASANDRA MACIAS MRN: [id number] date: 1995 Sex: F Assigned Patient Location: [facility] Current Patient Location: Accession/Order Number: [id number] Exam Date: 07/06/2023 19:06 Report Date: 07/07/2023 08:02 At the request of: RICARDO RODRIGUEZ Procedure: US OB BPP w non-stress EXAMINATION: US OB BPP w non-stress HISTORY: JOSESITO INCREASED O40.9XX0 COMPARISON: Ultrasound OB biophysical 06/27/2023 TECHNIQUE: Ultrasound biophysical profile was performed in the radiology department. BREATHING MOVEMENTS: 2.0 GROSS BODY MOVEMENTS: 2.0 TONE: 2.0 QUALITATIVE AMNIOTIC FLUID VOLUME: 2.0 PRESENTATION: CEPHALIC HEART RATE: 131.7 bpm bpm. AMNIOTIC FLUID VOLUME: 20.8 cm GESTATIONAL AGE: 33 weeks 5 days CONCLUSION: Total biophysical profile score 8.0. Electronically authenticated by: LAM VELA Date: 07/07/2023 08:02 Dictated By: Lam Vela M.D. Signed By:07/07/23803 DD/ 1 TD/TT: Communications Manager: Authorizing ProviderResult TypeResult StatusCorey Jennifer DOCLINISYNC IMAGINGFinal Result documented in this encounter Visit Diagnoses Not on filedocumented in this encounter Care Teams Team MemberRelationshipSpecialtyStart DateEnd Date Erik Garcia MD PCP - GeneralFamily Medicine/ Erik Garcia MD [address] [place] [address] PCP - GeneralFamily Medicine08/21/24documented as of this encounter
--- OUTSIDE RECORDS SUMMARY | 2025-01-30 12:17 | XMS_ITS | Encounter Summary ---
Author Organization [facility] Address [address] [place] [address] Care Team Providers Care Maple Products Supervisor Name Role Phone Erik Garcia MD Primary Care Provider [phone] Erik Garcia MD Primary Care Provider [phone] Encounter Details DateTypeDepartmentCare Team (Latest Contact Info)Ybigisymhve96/16/2024Clinisync Result Encounter [facility] External Department Unsolicited Ricardo Rodriguez DO [address] [place] [address] [place] [address] Social History Tobacco UseTypesPacks/DayYears UsedDateSmoking Tobacco: NeverAlcohol UseStandard Drinks/WeekCommentsYes0 (1 standard drink = 0.6 oz pure alcohol)caffeine: occasionalAUDIT-CAnswerDate RecordedQ1: How often do you have a drink containing alcohol?2-4 times a month01/28/2023Q2: How many drinks containing alcohol do you have on a typical day when you are drinking?1 or Q3: How often do you have six or more drinks on one occasion?Qsrbnl9501/28/2023CommentsYesSex and Gender InformationValueDate RecordedSex Assigned at YgxeuFcpwhv50/28/2023 10:50 AM EDTLegal LvdQpggkj63/15/2023 8:06 PM EDTGender JyltmoftTediig41/28/2023 10:50 AM EDTSexual PzwvnuaimriXnbxoawg38/28/2023 10:50 AM EDTdocumented as of this encounter Plan of Treatment Not on file documented as of this encounter Procedures Procedure NamePriorityDate/TimeAssociated DiagnosisCommentsUS OB BPP W NON-DXUERN4607/12/2023 7:45 AM EDT documented in this encounter Results * US OB BPP W NON-STRESS (07/12/2023 7:45 AM EDT)Anatomical Region LateralityModalityOtherSpecimen (Source)Anatomical Location / Laterality Collection Method / VolumeCollection TimeReceived Time07/12/2023 7:45 AM EDT Narrative 07/12/2023 7:47 AM EDT [facility] ?[address] ? [place] [address] ? Ultrasound Report ? Signed ? Patient: DEARTH,KASANDRA D ?MR#: [id number] ?? : 1995 ?Acct:[id number] ?? Age/Sex: 27 / F ?ADM Date: 07/11/23 ?? Loc: US ? Attending Dr: Ricardo Rodriguez D.O. ? Ordering Physician: Ricardo Rodriguez D.O. ?? Date of Service: 07/11/23 ?? Procedure(s): US OB BPP w non-stress ?? Accession Number(s): [id number] ? cc: Ricardo Rodriguez D.O.; Erik Garcia M.D. ? [facility] ? [address] ? [place] [address] ? Patient Name: ?? KASANDRA LINDSAYMIYA ? MRN: [facility]:[id number] ? date: 1995 ?Sex: F ?? Assigned Patient Location: [facility] ?? Current Patient Location: ? Accession/Order Number: [id number] ?? Exam Date: 07/11/2023 ??17:05 ?Report Date: 07/12/2023 ??07:45 ? At the request of: ?? RICARDO ??JENNIFER ? Procedure: ??US OB BPP w non-stress ? EXAMINATION: US OB BPP w non-stress ? HISTORY: JOSESITO INCREASED O40.9XX0 ? COMPARISON: No relevant comparison available. ? TECHNIQUE: Ultrasound biophysical profile was performed in the radiology ?? department. ? FINDINGS: ?? BREATHING MOVEMENTS: 2.0 ?? GROSS BODY MOVEMENTS: 2.0 ?? TONE: 2.0 ?? QUALITATIVE AMNIOTIC FLUID VOLUME: 2.0 ? PRESENTATION: CEPHALIC ?? HEART RATE: 138.5 bpm H.B./min ?? AMNIOTIC FLUID VOLUME: 16.8 cm cm ?? GESTATIONAL AGE: 34 weeks 3 days ? CONCLUSION: ? Total biophysical profile score: 8.0 ? Electronically authenticated by: DUDLEY ??EDGAR ?? Date: 07/12/2023 ??07:45 ? Dictated By: ?Dudley Hernández M.D. ? Signed By: ?07/12/23 0747 ? DD/ 0745 ? TD/TT: ? Weight Engineer: Procedure Note Radiology, Radiologist, - 07/12/2023 [place] [address] Ultrasound Report Signed Patient: KASANDRA MACIAS DMR#: [id number] : 1995Acct:[id number] Age/Sex: 27 / FADM Date: 07/11/23 Loc: US Attending Dr: Ricardo Rodriguez D.O. Ordering Physician: Ricardo Rodriguez D.O. Date of Service: 07/11/23 Procedure(s): US OB BPP w non-stress Accession Number(s): [id number] cc: Ricardo Rodriguez D.O.; Erik Garcia M.D. The [place] [id number] Patient Name: KASANDRA MACIAS MRN: [id number] date: 1995 Sex: F Assigned Patient Location: [facility] Current Patient Location: Accession/Order Number: [id number] Exam Date: 07/11/2023 17:05 Report Date: 07/12/2023 07:45 At the request of: RICARDO RODRIGUEZ Procedure: US OB BPP w non-stress EXAMINATION: US OB BPP w non-stress HISTORY: JOSESITO INCREASED O40.9XX0 COMPARISON: No relevant comparison available. TECHNIQUE: Ultrasound biophysical profile was performed in the radiology department. FINDINGS: BREATHING MOVEMENTS: 2.0 GROSS BODY MOVEMENTS: 2.0 TONE: 2.0 QUALITATIVE AMNIOTIC FLUID VOLUME: 2.0 PRESENTATION: CEPHALIC HEART RATE: 138.5 bpm H.B./min AMNIOTIC FLUID VOLUME: 16.8 cm cm GESTATIONAL AGE: 34 weeks 3 days CONCLUSION: Total biophysical profile score: 8.0 Electronically authenticated by: DUDLEY HERNÁNDEZ Date: 07/12/2023 07:45 Dictated By: Dudley Hernández M.D. Signed By:07/12/2347 DD/ TD/TT: Weight Engineer: Authorizing ProviderResult TypeResult StatusCorey Jennifer DOCLINISYNC IMAGINGFinal Result documented in this encounter Visit Diagnoses Not on filedocumented in this encounter Care Teams Team MemberRelationshipSpecialtyStart DateEnd Date Erik Garcia MD PCP - GeneralFamily Medicine/ Erik Garcia MD [address] [place] [phone] PCP - GeneralFamily Medicine08/21/24documented as of this encounter
--- OUTSIDE RECORDS SUMMARY | 2025-01-30 12:17 | XMS_ITS | Encounter Summary ---
Author Organization [facility] Address [address] [place] [address] Care Team Providers Care Cash Shortage Investigator Name Role Phone Erik Garcia MD Primary Care Provider [phone] Erik Garcia MD Primary Care Provider [phone] Encounter Details DateTypeDepartmentCare Team (Latest Contact Info)Zhmsdtxkihh87/30/2024Clinisync Result Encounter [facility] External Department Unsolicited Ricardo Rodriguez DO [address] [place] [address] [place] [address] Social History Tobacco UseTypesPacks/DayYears UsedDateSmoking Tobacco: NeverAlcohol UseStandard Drinks/WeekCommentsYes0 (1 standard drink = 0.6 oz pure alcohol)caffeine: occasionalAUDIT-CAnswerDate RecordedQ1: How often do you have a drink containing alcohol?2-4 times a month01/28/2023Q2: How many drinks containing alcohol do you have on a typical day when you are drinking?1 or Q3: How often do you have six or more drinks on one occasion?Jvdalk4601/28/2023CommentsYesSex and Gender InformationValueDate RecordedSex Assigned at CzhsnMptavs11/28/2023 10:50 AM EDTLegal AcrOajcoz15/15/2023 8:06 PM EDTGender ZgrwjvpeWzvviz95/28/2023 10:50 AM EDTSexual FaixaeoolsdEgigigze08/28/2023 10:50 AM EDTdocumented as of this encounter Plan of Treatment Not on file documented as of this encounter Procedures Procedure NamePriorityDate/TimeAssociated DiagnosisCommentsUS OB BPP W NON-CYKALB2907/26/2023 5:40 AM EDT documented in this encounter Results * US OB BPP W NON-STRESS (07/26/2023 5:40 AM EDT)Anatomical Region LateralityModalityOtherSpecimen (Source)Anatomical Location / Laterality Collection Method / VolumeCollection TimeReceived Time07/26/2023 5:40 AM EDT Narrative 07/26/2023 5:42 AM EDT [facility] ?[address] ? [place] [address] ? Ultrasound Report ? Signed ? Patient: DEARTH,KASANDRA D ?MR#: [id number] ?? : 1995 ?Acct:[id number] ?? Age/Sex: 27 / F ?ADM Date: 07/25/23 ?? Loc: US ? Attending Dr: Ricardo Rodriguez D.O. ? Ordering Physician: Ricardo Rodriguez D.O. ?? Date of Service: 07/25/23 ?? Procedure(s): US OB BPP w non-stress ?? Accession Number(s): [id number] ? cc: Ricardo Rodriguez D.O.; Erik Garcia M.D. ? [facility] ? [address] ? [place] [address] ? Patient Name: ?? KASANDRA MACIAS ? MRN: [facility]:[id number] ? date: 1995 ?Sex: F ?? Assigned Patient Location: [facility] ?? Current Patient Location: ? Accession/Order Number: [id number] ?? Exam Date: 07/25/2023 ??16:04 ?Report Date: 07/26/2023 ??05:40 ? At the request of: ?? RICARDO ??JENNIFER ? Procedure: ??US OB BPP w non-stress ? EXAMINATION: US OB BPP w non-stress ? HISTORY: POLYHYDRAMNIOS O49.9XX0 ? COMPARISON: Ultrasound OB biophysical 07/21/2023 ? TECHNIQUE: Ultrasound biophysical profile was performed in the radiology ?? department. ? BREATHING MOVEMENTS: 2.0 ?? GROSS BODY MOVEMENTS: 2.0 ?? TONE: 2.0 ?? QUALITATIVE AMNIOTIC FLUID VOLUME: 2.0 ? PRESENTATION: CEPHALIC ?? HEART RATE: 131.7 bpm bpm. ?? AMNIOTIC FLUID VOLUME: 19.2 cm ?? GESTATIONAL AGE: 36 weeks 3 days ? CONCLUSION: ? Total biophysical profile score 8.0. ? Electronically authenticated by: LAM ??SVEN ?? Date: 07/26/2023 ??05:40 ? Dictated By: ?Lam Vela M.D. ? Signed By: ?07/25/ 0542 ? DD/ 0540 ? TD/TT: ? Manager Mechanical: Procedure Note Radiology, Radiologist, - 07/26/2023 [place] [address] Ultrasound Report Signed Patient: KASANDRA MACIAS DMR#: [id number] : 1995Acct:[id number] Age/Sex: Date: 07/25/23 Loc: US Attending Dr: Ricardo Rodriguez D.O. Ordering Physician: Ricardo Rodriguez D.O. Date of Service: 07/25/23 Procedure(s): US OB BPP w non-stress Accession Number(s): [id number] cc: Ricardo Rodriguez D.O.; Erik Garcia M.D. The [place] [id number] Patient Name: KASANDRA MACIAS MRN: [facility]:[id number] date: 1995 Sex: F Assigned Patient Location: [facility] Current Patient Location: Accession/Order Number: [id number] Exam Date: 07/25/2023 16:04 Report Date: 07/26/2023 05:40 At the request of: RICARDO RODRIGUEZ Procedure: US OB BPP w non-stress EXAMINATION: US OB BPP w non-stress HISTORY: POLYHYDRAMNIOS O49.9XX0 COMPARISON: Ultrasound OB biophysical 07/21/2023 TECHNIQUE: Ultrasound biophysical profile was performed in the radiology department. BREATHING MOVEMENTS: 2.0 GROSS BODY MOVEMENTS: 2.0 TONE: 2.0 QUALITATIVE AMNIOTIC FLUID VOLUME: 2.0 PRESENTATION: CEPHALIC HEART RATE: 131.7 bpm bpm. AMNIOTIC FLUID VOLUME: 19.2 cm GESTATIONAL AGE: 36 weeks 3 days CONCLUSION: Total biophysical profile score 8.0. Electronically authenticated by: LAM VELA Date: 07/26/2023 05:40 Dictated By: Lam Vela M.D. Signed By:07/26/2342 DD/ 9 TD/TT: Manager Mechanical: Authorizing ProviderResult TypeResult StatusCorey Jennifer DOCLINISYNC IMAGINGFinal Result documented in this encounter Visit Diagnoses Not on filedocumented in this encounter Care Teams Team MemberRelationshipSpecialtyStart DateEnd Date Erik Garcia MD PCP - GeneralFamily Medicine/ [place] [address] [place] [phone] PCP - GeneralFamily Medicine08/21/24documented as of this encounter
--- OUTSIDE RECORDS SUMMARY | 2025-01-30 12:17 | XMS_ITS | Encounter Summary ---
Author Organization [facility] Address [address] [place] [address] Care Team Providers Care Carbonizer Name Role Phone Erik Garcia MD Primary Care Provider [phone] Erik Garcia MD Primary Care Provider [phone] Encounter Details DateTypeDepartmentCare Team (Latest Contact Info)Nrgbnnmgiir36/26/2024Clinisync Result Encounter [facility] External Department Unsolicited Wisam Rodriguez DO [address] [place] [address] [place] [address] Social History Tobacco UseTypesPacks/DayYears UsedDateSmoking Tobacco: NeverAlcohol UseStandard Drinks/WeekCommentsYes0 (1 standard drink = 0.6 oz pure alcohol)caffeine: occasionalAUDIT-CAnswerDate RecordedQ1: How often do you have a drink containing alcohol?2-4 times a month01/28/2023Q2: How many drinks containing alcohol do you have on a typical day when you are drinking?1 or Q3: How often do you have six or more drinks on one occasion?Gbvojp4201/28/2023CommentsYesSex and Gender InformationValueDate RecordedSex Assigned at VfjqdQiuwwn54/28/2023 10:50 AM EDTLegal VezWqeprp95/15/2023 8:06 PM EDTGender ZhrzrdxgGpndjd04/28/2023 10:50 AM EDTSexual LxvdjiesqdnBaemktba19/28/2023 10:50 AM EDTdocumented as of this encounter Plan of Treatment Not on file documented as of this encounter Procedures Procedure NamePriorityDate/TimeAssociated DiagnosisCommentsUS OB BPP W NON-PURCKO6307/22/2023 7:49 AM EDT documented in this encounter Results * US OB BPP W NON-STRESS (07/22/2023 7:49 AM EDT)Anatomical Region LateralityModalityOtherSpecimen (Source)Anatomical Location / Laterality Collection Method / VolumeCollection TimeReceived Time07/22/2023 7:49 AM EDT Narrative 07/22/2023 7:51 AM EDT [facility] ?[address] ? [place] [address] ? Ultrasound Report ? Signed ? Patient: DEARTH,KASANDRA D ?MR#: [id number] ?? : 1995 ?Acct:[id number] ?? Age/Sex: 27 / F ?ADM Date: 07/21/23 ?? Loc: [facility] ? Attending Dr: Wisam Rodriguez D.O. ? Ordering Physician: Wisam Rodriguez D.O. ?? Date of Service: 07/21/23 ?? Procedure(s): US OB BPP w non-stress ?? Accession Number(s): [id number] ? cc: Wisam Rodriguez D.O.; Erik Garcia M.D. ? [facility] ? [facility] ? [place] [address] ? Patient Name: ?? KASANDRA Donna ANGÉLICAMIYA ? MRN: [facility]:[id number] ? date: 1995 ?Sex: F ?? Assigned Patient Location: [facility] ?? Current Patient Location: ? Accession/Order Number: [id number] ?? Exam Date: 07/21/2023 ??17:36 ?Report Date: 07/22/2023 ??07:49 ? At the request of: ?? WISAM ??JENNIFER ? Procedure: ??US OB BPP w non-stress ? EXAMINATION: US OB BPP w non-stress ? HISTORY: scheduled NST polyhydramnios ? COMPARISON: No relevant comparison available. ? TECHNIQUE: Ultrasound biophysical profile was performed in the radiology ?? department. ? FINDINGS: ?? BREATHING MOVEMENTS: 2 ?? GROSS BODY MOVEMENTS: 2 ?? TONE: 2 ?? QUALITATIVE AMNIOTIC FLUID VOLUME: 2 ? PRESENTATION: Cephalic ?? HEART RATE: 141 H.B./min ?? AMNIOTIC FLUID VOLUME: 17.8 cm ?? GESTATIONAL AGE: 35 weeks 6 days ? CONCLUSION: ? Total biophysical profile score: 8/8 ? Electronically authenticated by: DUDLEY ??EDGAR ?? Date: 07/22/2023 ??07:49 ? Dictated By: ?Dudley Hernández M.D. ? Signed By: ?07/22/23 0751 ? DD/ 0749 ? TD/TT: ? Staff Nurse: Procedure Note Radiology, Radiologist, - 07/22/2023 [place] [address] Ultrasound Report Signed Patient: KASANDRA MACIAS DMR#: [id number] : 1995Acct:[id number] Age/Sex: 27 / FADM Date: 07/21/23 Loc: [facility] Dr: Wisam Rodriguez D.O. Ordering Physician: Wisam Rodriguez D.O. Date of Service: 07/21/23 Procedure(s): US OB BPP w non-stress Accession Number(s): [id number] cc: Wisam Rodriguez D.O.; Erik Garcia M.D. The [place] [id number] Patient Name: KASANDRA MACIAS MRN: [facility]:[id number] date: 1995 Sex: F Assigned Patient Location: [facility] Current Patient Location: Accession/Order Number: [id number] Exam Date: 07/21/2023 17:36 Report Date: 07/22/2023 07:49 At the request of: WISAM RODRIGUEZ Procedure: US OB BPP w non-stress EXAMINATION: US OB BPP w non-stress HISTORY: scheduled NST polyhydramnios COMPARISON: No relevant comparison available. TECHNIQUE: Ultrasound biophysical profile was performed in the radiology department. FINDINGS: BREATHING MOVEMENTS: 2 GROSS BODY MOVEMENTS: 2 TONE: 2 QUALITATIVE AMNIOTIC FLUID VOLUME: 2 PRESENTATION: Cephalic HEART RATE: 141 H.B./min AMNIOTIC FLUID VOLUME: 17.8 cm GESTATIONAL AGE: 35 weeks 6 days CONCLUSION: Total biophysical profile score: 8/8 Electronically authenticated by: DUDLEY HERNÁNDEZ Date: 07/22/2023 07:49 Dictated By: Dudley Hernández M.D. Signed By:07/22/23 0751 DD/ 0749 TD/TT: Staff Nurse: Authorizing ProviderResult TypeResult StatusCorey Jennifer DOCLINISYNC IMAGINGFinal Result documented in this encounter Visit Diagnoses Not on filedocumented in this encounter Care Teams Team MemberRelationshipSpecialtyStart DateEnd Date Erik Garcia MD PCP - GeneralFamily Medicine/ Erki Garcia MD [address] [place] [address] PCP - GeneralFamily Medicine08/21/24documented as of this encounter
--- OUTSIDE RECORDS SUMMARY | 2025-01-30 12:17 | XMS_ITS | Encounter Summary ---
Author Organization [facility] Address [address] [place] [address] Care Team Providers Care Pricing Lead Name Role Phone Erik Garcia MD Primary Care Provider [phone] Erik Garcia MD Primary Care Provider [phone] Encounter Details DateTypeDepartmentCare Team (Latest Contact Info)Vcnawgbvvju11/29/2024Clinisync Result Encounter [facility] External Department Unsolicited Ricardo Rodriguez DO [address] [place] [address] [place] [address] Social History Tobacco UseTypesPacks/DayYears UsedDateSmoking Tobacco: NeverAlcohol UseStandard Drinks/WeekCommentsYes0 (1 standard drink = 0.6 oz pure alcohol)caffeine: occasionalAUDIT-CAnswerDate RecordedQ1: How often do you have a drink containing alcohol?2-4 times a month01/28/2023Q2: How many drinks containing alcohol do you have on a typical day when you are drinking?1 or Q3: How often do you have six or more drinks on one occasion?Aniehu4001/28/2023CommentsYesSex and Gender InformationValueDate RecordedSex Assigned at QqixyUnuyig18/28/2023 10:50 AM EDTLegal TxaKqrbos63/15/2023 8:06 PM EDTGender LcseedoaAlavzn67/28/2023 10:50 AM EDTSexual MjqzlauceyjYcxgarzm63/28/2023 10:50 AM EDTdocumented as of this encounter Plan of Treatment Not on file documented as of this encounter Procedures Procedure NamePriorityDate/TimeAssociated DiagnosisCommentsUS OB GROWTH 05/26/2023 9:49 AM EST documented in this encounter Results * US OB GROWTH (05/26/2023 9:49 AM EST)Anatomical RegionLateralityModalityOther Specimen (Source)Anatomical Location / LateralityCollection Method / Volume Collection TimeReceived Time05/26/2023 9:49 AM EST Narrative 05/26/2023 9:52 AM EST [facility] ?[address] ? [place], [facility] ? Ultrasound Report ? Signed ? Patient: DEARTH,KASANDRA D ?MR#: [id number] ?? : 1995 ?Acct:[id number] ?? Age/Sex: 27 / F ?ADM Date: 05/26/23 ?? Loc: [facility] ? Attending Dr: Ricardo Rodriguez D.O. ? Ordering Physician: Ricardo Rodriguez D.O. ?? Date of Service: 05/26/23 ?? Procedure(s): US OB growth ?? Accession Number(s): [id number] ? cc: Ricardo Rodriguez D.O.; Erik Garcia M.D. ? [facility] ? [address] ? [place] [address] ? Patient Name: ?? KASANDRA Thompson DEART ? MRN: [facility]:[id number] ? date: 1995 ?Sex: F ?? Assigned Patient Location: [facility] ?? Current Patient Location: [facility] ?? Accession/Order Number: [id number] ?? Exam Date: 05/26/2023 ??09:17 ?Report Date: 05/26/2023 ??09:49 ? At the request of: ?? RICARDO ??OLEKSANDR ? Procedure: ??US OB growth ? EXAMINATION: US OB growth ? HISTORY: SIZE INCONSISTENT WITH DATES ? COMPARISON: No relevant comparison available. ? FINDINGS: ? Heart Rate: 169.0 bpm ?? Amniotic Fluid Volume: 21.4 cm ?? Number: 1.0 ?? Position: VARIABLE ?? Maximum Vertical Pocket: ?? 8.9 cm cm ?? 5.0 cm cm ?? 5.0 cm cm ?? 2.4 cm cm ? BIOMETRY: ?? BPD: 7.1 cm cm; 28 weeks 4 days; 64% ?? HC: 26.2 cmcm; 28 weeks 4 days, 41% ?? AC: 24.3 cm cm; 28 weeks 4 days, 66% ?? FL: 5.2 cm cm; 27 weeks 4 days; 27.8 % % ?? EFW: 1200.2 grams, 2 lbs. 10 oz., 53% ?? FL/AC: 21.2 ?? FL/BPD: 72.5 ?? HC/AC: 1.1 ? GESTATIONAL AGE: ?? Age by EDC: 27 weeks 6 days ?? NITHYA by EDC: 08/19/2023 ?? Age by US: 27 weeks 6 days ?? NITHYA by US: 08/19/2023 ? US/US OB growth ?? IMPRESSION: ? Borderline polyhydramnios ? Normal interval growth ? Electronically authenticated by: DUDLEY ??EDGAR ?? Date: 05/26/2023 ??09:49 ? Dictated By: ?Dudley Hernández M.D. ? Signed By: ?05/26/23951 ? DD/ 0949 ? TD/TT: ? Coil Shaper: Procedure Note Radiology, Radiologist, - 05/26/2023 [place] [address] Ultrasound Report Signed Patient: KASANDRA MACIAS DMR#: [id number] : 1995Acct:[id number] Age/Sex: Date: 05/26/23 Loc: [facility] Attending Dr: Ricardo Rodriguez D.O. Ordering Physician: Ricardo Rodriguez D.O. Date of Service: 05/26/23 Procedure(s): US OB growth Accession Number(s): [id number] cc: Ricardo Rodriguez D.O.; Erik Garcia M.D. The [address] [address] Patient Name: KASANDRA MACIAS MRN: [facility]:[id number] date: 1995 Sex: F Assigned Patient Location: [facility] Current Patient Location: [facility] Accession/Order Number: [id number] Exam Date: 05/26/2023 09:17 Report Date: 05/26/2023 09:49 At the request of: RICARDO RODRIGUEZ Procedure: US OB growth EXAMINATION: US OB growth HISTORY: SIZE INCONSISTENT WITH DATES COMPARISON: No relevant comparison available. FINDINGS: Heart Rate: 169.0 bpm Amniotic Fluid Volume: 21.4 cm Number: 1.0 Position: VARIABLE Maximum Vertical Pocket: 8.9 cm cm 5.0 cm cm 5.0 cm cm 2.4 cm cm BIOMETRY: BPD: 7.1 cm cm; 28 weeks 4 days; 64% HC: 26.2 cmcm; 28 weeks 4 days, 41% AC: 24.3 cm cm; 28 weeks 4 days, 66% FL: 5.2 cm cm; 27 weeks 4 days; 27.8 % % EFW: 1200.2 grams, 2 lbs. 10 oz., 53% FL/AC: 21.2 FL/BPD: 72.5 HC/AC: 1.1 GESTATIONAL AGE: Age by EDC: 27 weeks 6 days NITHYA by EDC: 08/19/2023 Age by US: 27 weeks 6 days NITHYA by US: 08/19/2023 US/US OB growth IMPRESSION: Borderline polyhydramnios Normal interval growth Electronically authenticated by: DUDLEY HERNÁNDEZ Date: 05/26/2023 09:49 Dictated By: Dudley Hernández M.D. Signed By:05/26/2352 DD/ 8 TD/TT: Coil Shaper: Authorizing ProviderResult TypeResult StatusCoreoumou Rodriguez DOCLINISYNC IMAGINGFinal Result documented in this encounter Visit Diagnoses Not on filedocumented in this encounter Care Teams Team MemberRelationshipSpecialtyStart DateEnd Date Erik Garcia MD PCP - GeneralFamily Medicine Erik Garcia MD [address] [place] [address] PCP - GeneralFamily Medicine08/21/24documented as of this encounter
--- OUTSIDE RECORDS SUMMARY | 2025-01-30 12:18 | XMS_ITS | Encounter Summary ---
Author Organization [facility] Address [address] [place] [address] Care Team Providers Care Cardiologist Name Role Phone Erik Garcia MD Primary Care Provider [phone] Erik Garcia MD Primary Care Provider [phone] Encounter Details DateTypeDepartmentCare Team (Latest Contact Info)Vwhtqfhvldl74/05/2024Clinisync Result Encounter [facility] External Department Unsolicited Ricardo Rodriguez DO [address] [place] [address] [place] [address] Social History Tobacco UseTypesPacks/DayYears UsedDateSmoking Tobacco: NeverAlcohol UseStandard Drinks/WeekCommentsYes0 (1 standard drink = 0.6 oz pure alcohol)caffeine: occasionalAUDIT-CAnswerDate RecordedQ1: How often do you have a drink containing alcohol?2-4 times a month01/28/2023Q2: How many drinks containing alcohol do you have on a typical day when you are drinking?1 or Q3: How often do you have six or more drinks on one occasion?Lcekca5101/28/2023CommentsYesSex and Gender InformationValueDate RecordedSex Assigned at ZtvwuGvxmyh39/28/2023 10:50 AM EDTLegal UjdNsrnne99/15/2023 8:06 PM EDTGender ImikivvuZkwbia28/28/2023 10:50 AM EDTSexual WjhlfshafbaKciwcrjt48/28/2023 10:50 AM EDTdocumented as of this encounter Plan of Treatment Not on file documented as of this encounter Procedures Procedure NamePriorityDate/TimeAssociated DiagnosisCommentsUS OB ANATOMY 04/01/2023 7:16 AM EST documented in this encounter Results * US OB ANATOMY (04/01/2023 7:16 AM EST)Anatomical RegionLateralityModalityOther Specimen (Source)Anatomical Location / LateralityCollection Method / Volume Collection TimeReceived Time04/01/2023 7:16 AM EST Narrative 04/01/2023 7:19 AM EST [facility] ?[address] ? [place] [address] ? Ultrasound Report ? Signed ? Patient: ANGÉLICARTH,KASANDRA D ?MR#: [id number] ?? : 1995 ?Acct:[id number] ?? Age/Sex: 27 / F ?ADM Date: 03/31/23 ?? Loc: US ? Attending Dr: Ricardo Rodriguez D.O. ? Ordering Physician: Ricardo Rodriguez D.O. ?? Date of Service: 03/31/23 ?? Procedure(s): US OB anatomy ?? Accession Number(s): [id number] ? cc: Ricardo Rodriguez D.O.; Erik Garcia M.D. ? [facility] ? [address] ? [place] [address] ? Patient Name: ?? KASANDRA Donna DEART ? MRN: [facility]:[id number] ? date: 1995 ?Sex: F ?? Assigned Patient Location: US ?? Current Patient Location: ? Accession/Order Number: [id number] ?? Exam Date: 03/31/2023 ??19:37 ?Report Date: 04/01/2023 ??07:16 ? At the request of: ?? RICARDO ??JENNIFER ? Procedure: ??US OB anatomy ? EXAMINATION: US OB anatomy, US OB transvaginal ? HISTORY: SECOND TRIMESTER Z34.92 ? COMPARISON: No relevant comparison available. ? TECHNIQUE: Transabdominal sonographic examination was performed for ?? obstetrical ?? and evaluation. ? FINDINGS: ? Number: 1 ?? Heart Rate: 148.4 bpm H.B. /min ?? Amniotic Fluid Volume: Subjectively normal ?? position: Variable lie and presentation ?? Placental Location: Posterior, placental edge 5.1 cm from the internal os. ?? Grade 0 ?? Cervix Length: 4.6 cm, closed ? Normal anatomy: Lateral ventricles, cerebellum, posterior fossa, nose, lips, ?? orbits, four-chamber heart, RVOT, LVOT, diaphragm, stomach, kidneys, abdominal ? cord insertion, bladder, umbilical arteries, three-vessel cord, spine, ?? extremities ? BIOMETRY: ?? BPD: 4.5 cm 19 weeks 4 days , 37% ?? HC: 17.2 cm 19 weeks 6 days, 40% ?? AC: 14.8 cm 20 weeks 1 days, 52% ?? FL: 3.0 cm 19 weeks 2 days , 24% ?? EFW:309.8 grams; 11 ounces, 38% ?? FL/AC: 20.4 ?? FL/BPD: 67.3 ?? HC/AC: 1.2 ? GESTATIONAL AGE: ?? Age by EDC: 19 weeks 6 days ?? Age by current US: 19 weeks 5 days ?? NITHYA by current US: 08/20/2023 ?? NITHYA by EDC: 08/19/2023 ? US/US OB anatomy ?? IMPRESSION: ? Normal anatomy scan ? Closed cervix measuring 4.6 cm in length ? *Reference: [facility] Practice Guideline for the performance of Obstetric ?? Ultrasound ?? Examinations, December 26, 2006. ? Electronically authenticated by: DUDLEY ??EDGAR ?? Date: 04/01/2023 ??07:16 ? Dictated By: ?Dudley Hernández M.D. ? Signed By: ?04/01/23 0719 ? DD/ 0716 ? TD/TT: ? Ceramic Tile Installer: Procedure Note Radiology, Radiologist, - 04/01/2023 [place] [address] Ultrasound Report Signed Patient: KASANDRA MACIAS DMR#: [id number] : 1995Acct:[id number] Age/Sex: 27 / FADM Date: 03/31/23 Loc: US Attending Dr: Ricardo Rodriguez D.O. Ordering Physician: Ricardo Rodriguez D.O. Date of Service: 03/31/23 Procedure(s): US OB anatomy Accession Number(s): [id number] cc: Ricardo Rodriguez D.O.; Erik Garcia M.D. [place] [address] Patient Name: KASANDRA MACIAS MRN: [facility]:[id number] date: 1995 Sex: F Assigned Patient Location: US Current Patient Location: Accession/Order Number: [id number] Exam Date: 03/31/2023 19:37 Report Date: 04/01/2023 07:16 At the request of: RICARDO RODRIGUEZ Procedure: US OB anatomy EXAMINATION: US OB anatomy, US OB transvaginal HISTORY: SECOND TRIMESTER Z34.92 COMPARISON: No relevant comparison available. TECHNIQUE: Transabdominal sonographic examination was performed for obstetrical and evaluation. FINDINGS: Number: 1 Heart Rate: 148.4 bpm H.B. /min Amniotic Fluid Volume: Subjectively normal position: Variable lie and presentation Placental Location: Posterior, placental edge 5.1 cm from the internal os. Grade 0 Cervix Length: 4.6 cm, closed Normal anatomy: Lateral ventricles, cerebellum, posterior fossa, nose,lips, orbits, four-chamber heart, RVOT, LVOT, diaphragm, stomach, kidneys,abdominal cord insertion, bladder, umbilical arteries, three-vessel cord, spine, extremities BIOMETRY: BPD: 4.5 cm 19 weeks 4 days , 37% HC: 17.2 cm 19 weeks 6 days, 40% AC: 14.8 cm 20 weeks 1 days, 52% FL: 3.0 cm 19 weeks 2 days , 24% EFW:309.8 grams; 11 ounces, 38% FL/AC: 20.4 FL/BPD: 67.3 HC/AC: 1.2 GESTATIONAL AGE: Age by EDC: 19 weeks 6 days Age by current US: 19 weeks 5 days NITHYA by current US: 08/20/2023 NITHYA by EDC: 08/19/2023 US/US OB anatomy IMPRESSION: Normal anatomy scan Closed cervix measuring 4.6 cm in length *Reference: [facility] Practice Guideline for the performance of Obstetric Ultrasound Examinations, December 26, 2006. Electronically authenticated by: DUDLEY HERNÁNDEZ Date: 04/01/2023 07:16 Dictated By: Dudley Hernández M.D. Signed By:04/01/23718 DD/ 5 TD/TT: Ceramic Tile Installer: Authorizing ProviderResult TypeResult StatusCorey Jennifer DOCLINISYNC IMAGINGFinal Result documented in this encounter Visit Diagnoses Not on filedocumented in this encounter Care Teams Team MemberRelationshipSpecialtyStart DateEnd Date Erik Garcia MD PCP - GeneralFamily Medicine/ Erik Garcia MD [address] [place] [phone] PCP - GeneralFamily Medicine08/21/24documented as of this encounter
--- OUTSIDE RECORDS SUMMARY | 2025-01-30 12:18 | XMS_ITS | Patient Health Record ---
Author Organization [facility] in [place] Address [address] [place] [address] Care Team Providers Care Gas Inspector Name Role Phone Abilio Garcia Primary Care Provider Allergies No Known Allergies Results Component Value Reference Range Notes UA DIP NONAUTO WO MICRO (810 02) - IN OFFICE Reviewed date:01/18/2025 03:24:34 PM Interpretation: Performing Lab: Notes/Report: COLOR yellow CLARITYclearGLUCOSEnegBILIRUBIN+KETONE+SPECIFIC GRAVITY1.322PCZIInvaTE7.5PROTEIN +UROBILINOGENnegNITRITEnegLEUKOCYTE ESTERASEnegUA DIP NONAUTO WO MICRO (00180) - IN OFFICE Reviewed date:11/09/2024 11:04:06 AM Interpretation: Performing Lab: Notes/Report: COLORYellowCLARITYClearGLUCOSENegBILIRUBINNegKETONE+SPECIFIC GRAVITY1.025BLOOD RbjFO5UFNGLYI+UROBILINOGENNegNITRITENegLEUKOCYTE ESTERASE+++US pelvis w/ transvaginal Reviewed date:03/28/2024 03:17:33 PM Interpretation: Performing Lab: Notes/Report: Source Facility: [place] [address] [place] [address] Ultrasound Report Signed Patient: ESTER MACIAS MR#: [id number] : 1995 Acct:[id number] Age/Sex: 28 / F ADM Date: 03/27/24 Loc: US Attending Dr: Ricardo Rodriguez D.O. Ordering Physician: Ricardo Rodriguez D.O. Date of Service: 03/27/24 Procedure(s): US pelvis w/ transvaginal Accession Number(s): [id number] cc: Ricardo Rodriguez D.O.; Iron Garcia M.D. [place] [id number] Patient Name: ESTER MACIAS MRN: [facility]:[id number] date: 1995 Sex: F Assigned Patient Location: Current Patient Location: Accession/Order Number: [id number] Exam Date: 03/27/2024 14:05 Report Date: 03/28/2024 [...] M.D. Signed By: 03/28/24334 DD/ 1 TD/TT: Charge Nurse:ISAURO BURRELL DIFF Reviewed date:06/28/2024 05:15:15 PM Interpretation: Performing Lab: Notes/Report: [facility] ,White Blood Count6.24.0-11.0 10 3/uLRed Blood Count4.364.20-5.40 10 6/uL Dbovihbodr28.812.0-16.0 g/vIOnkjsyhrio68.236.0-48.0 %Mean Corpuscular Bwfvch26.9 81.0-99.0 fLMean Corpuscular Lszurbjkid73.426.7-34.0 pgMean Corpuscular HGB Conc 32.729.9-35.2 g/dLRed Cell Distribution Width13.311.0-15.0 %Platelet Mlmea047 150-450 10 3/uLMean Platelet Volume8.99.5-13.5 fLNeutrophils Percent Auto59.6 43.0-75.0 %Lymphocytes Percent Auto27.120.5-60.0 %Monocytes Percent Auto9.91.7- 12.0 %Eosinophils Percent Auto2.60.9-7.0 %Basophils Percent Auto0.50.2-2.0 % Immature Granulocytes Pct Auto0.30.0-0.5 %Neutrophils Absolute Auto3.71.4-6.5 10 3/uLLymphocytes Absolute Auto1.71.2-3.8 10 3/uLMonocytes Absolute Auto0.60.3-0.8 10 3/uLEosinophils Absolute Auto0.20.0-0.7 10 3/uLBasophils Absolute Auto0.00.0- 0.1 10 3/uLImmature Granulocytes Abs Auto0.020.00-0.03 10 3/uLPerforming Lab:see noteML - [facility] LBFREE T4 Reviewed date:06/28/2024 05:15:15 PM Interpretation: Performing Lab: Notes/Report: [facility] ,Free T40.850.76-1.46 ng/dLPerforming Lab:see noteML - [facility] LB GLYCOHEMOGLOBIN A1C Reviewed date:06/28/2024 05:15:15 PM Interpretation: Performing Lab: Notes/Report: [facility] ,Glycohemoglobin A1C5.34.5-6.2 % ADA RECOMMENDED LIMIT 4.0 - 6.0 ADA THERAPEUTIC TARGET < 7.0 ACTION SUGGESTED > 7.0 Estimated Average Wuzkmjh078Ajsdgsiomi Lab:see noteML - [facility] LB PREG QUANT HCG Reviewed date:06/28/2024 05:15:15 PM Interpretation: Performing Lab: Notes/Report: [facility] ,HCG Quantitative<1 5-50 0.2-1 WEEK 50-500 1-2 WEEKS 100-5,000 2-3 WEEKS 500-10,000 3-4 WEEKS 1,000-50,000 4-5 WEEKS 10,000-100,000 5-6 WEEKS 15,000-200,000 6-8 WEEKS 10,000-100,000 2-3 MONTHS Performing Lab[facility] Reviewed date:06/28/2024 05:15:15 PM Interpretation: Performing Lab: Notes/Report: [facility] ,Thyroid Stimulating Hormone1.0170.358-3.740 uIU/mLPerforming Lab:see note - [facility] LBLuteinizing Hormone(LH) Reviewed date:07/01/2024 03:20:51 PM Interpretation: Performing Lab: Notes/Report: [facility] ,Luteinizing Hormone(LH)3.5. mIU/mL Adult Female Range Follicular phase 2.4 - 12.6 Ovulation phase 14.0 - 95.6 Luteal phase 1.0 - 11.4 Postmenopausal 7.7 - 58.5 Performing Lab:see note - [facility] LBFSH Reviewed date:07/01/2024 03:20:51 PM Interpretation: Performing Lab: Notes/Report: [facility] ,FSH6.5. mIU/mL Adult Female Range Follicular phase 3.5 - 12.5 Ovulation phase 4.7 - 21.5 Luteal phase 1.7 - 7.7 Postmenopausal 25.8 - 134.8 Performed at: [facility] [address] [id number] Newspaper Subscription Solicitor: Jose Orellana PhD, Phone: [phone] Performing Lab:[facility] LBDHEA-Sulfate Reviewed date:07/01/2024 03:20:51 PM Interpretation: Performing Lab: Notes/Report: [facility] ,DHEA-Wpdhgxa56.884.8-378.0 ug/dLPerforming Lab:see note - [facility] LBCBC AUTO DIFF Reviewed date:08/16/2024 12:37:01 PM Interpretation: Performing Lab: Notes/Report: [facility] ,White Blood Count10.14.0-11.0 10 3/uLRed Blood Count4.304.20-5.40 10 6/uL Utnzpdeidf87.812.0-16.0 g/sLHowebywefw57.636.0-48.0 %Mean Corpuscular Mjguhw67.8 81.0-99.0 fLMean Corpuscular Rhnygqarak49.826.7-34.0 pgMean Corpuscular HGB Conc 33.229.9-35.2 g/dLRed Cell Distribution Width13.211.0-15.0 %Platelet Pfinw936 150-450 10 3/uLMean Platelet Volume9.49.5-13.5 fLNeutrophils Percent Auto62.1 43.0-75.0 %Lymphocytes Percent Auto25.620.5-60.0 %Monocytes Percent Auto10.01.7- 12.0 %Eosinophils Percent Auto1.70.9-7.0 %Basophils Percent Auto0.30.2-2.0 % Immature Granulocytes Pct Auto0.30.0-0.5 %Neutrophils Absolute Auto6.31.4-6.5 10 3/uLLymphocytes Absolute Auto2.61.2-3.8 10 3/uLMonocytes Absolute Auto1.00.3-0.8 10 3/uLEosinophils Absolute Auto0.20.0-0.7 10 3/uLBasophils Absolute Auto0.00.0- 0.1 10 3/uLImmature Granulocytes Abs Auto0.030.00-0.03 10 3/uLPerforming Lab:see noteML - [facility] LBLIPASE Reviewed date:08/16/2024 12:37:01 PM Interpretation: Performing Lab: Notes/Report: [facility] ,Wlitbi12.016.0-77.0 U/LPerforming Lab:see noteML - [facility] LBPROF 14(COMP METB) Reviewed date:08/16/2024 12:37:01 PM Interpretation: Performing Lab: Notes/Report: [facility] ,Dsmwvs687708-236 mmol/LPotassium4.23.5-5.1 mmol/ZKvwuljat77553-400 mmol/LCarbon Uspiamy78.421.0-32.0 mmol/LAnion Gap8.5Pzwgwsa8912-276 mg/dLBlood Urea Nitrogen 28.07.0-18.0 mg/dLCreatinine0.640.55-1.02 mg/dLEstimated GFR ( Christina>60 >=60 mL/min/1.73m 2Estimated GFR (Non- Rhianna>60>=60 mL/min/1.73m 2BUN Creatinine Ratio43.5Rmtqubi7.98.5-10.1 mg/dLBilirubin Total0.80.2-1.0 mg/dL Aspartate Amino Xmxntgkvwoc6773-49 U/LAlanine Gwkwlzzbkynhptck6083-49 U/L Alkaline Qzqbrkxufiu4294-792 U/LTotal Protein6.66.4-8.2 g/dLAlbumin Level3.63.4- 5.0 g/dLGlobulin3.0Albumin Globulin Ratio1.2Performing Lab:see noteML - [facility] LBUA (CLEAN or CATCH) SUPERINTENDENT RECREATION or MICRO IF IND. Reviewed date:08/16/2024 12:37:01 PM Interpretation: Performing Lab: Notes/Report: [facility] ,Color UrineYELLOWYELLOWClarity UrineCLEARCLEARSpecific [place] Urine1.020 1.005-1.025pH Urine6.55.0-9.0Protein UrineTRACENEG/TRACE mg/dLGlucose Urine UA NEGATIVENEGATIVE mg/dLBilirubin UrineNEGATIVENEGATIVEKetones UrineTRACENEGATIVE mg/dLBlood UrineNEGATIVENEGATIVENitrite UrineNEGATIVENEGATIVEUrobilinogen Urine 1.00.2-1.0 EU/dLLeukocyte Esterase UrineNEGATIVENEGATIVEUrine Microscopic IndicatedYESPerforming Lab:see noteML - [facility] LBURINE MICROSCOPIC ONLY Reviewed date:08/16/2024 12:37:01 PM Interpretation: Performing Lab: Notes/Report: [facility] ,WBC Urine0-2NONE SEEN #/HPFRBC UrineNONE SEEN0-2 #/HPFBacteria UrineSMALLNONE SEEN #/HPFMucus UrineNONE SEENNONE SEENSquamous Epithelial Cell UrineMANY NONE/RARE #/LPFCrystals Seen?None SeenNone Seen #/HPFCast Seen?NONE SEENNONE SEEN #/LPFUrine Culture IndicatedYES-FRMCPerforming Lab:see note - [facility] LBHCG Qualitative Urine Reviewed date:08/16/2024 12:37:02 PM Interpretation: Performing Lab: Notes/Report: [facility] ,HCG Qualitative Urine*NEGATIVENEGATIVEPerforming Lab:see note - [facility] LBUrine Culture - [facility] Reviewed date:08/20/2024 03:23:56 PM Interpretation: Performing Lab: Notes/Report: [facility] ,Urine Culture - FRMCSee Below For Report Urine Culture - [facility] <9,000 colonies/ml mixed Urine Culture - FRMCbacterial skin contaminants Urine Culture - [facility] <9,000 colonies/ml mixed Urine Culture - [facility]2 Days Urine Culture - [facility] <9,000 colonies/ml mixed Urine Culture - [facility] Urine Culture - [facility] <9,000 colonies/ml mixed Urine Culture - FRMCTesting performed at [facility] Urine Culture - [facility] <9,000 colonies/ml mixed Urine Culture - [id number] [place] [address] Urine Culture - [facility] <9,000 colonies/ml mixed Performing Lab:see note - [facility] LBUS pelvis transvaginal Reviewed date:08/16/2024 12:37:02 PM Interpretation: Performing Lab: Notes/Report: Source Facility: [place] [address] Ultrasound Report Signed Patient: ESTER MACIAS MR#: [id number] : 1995 Acct:[id number] Age/Sex: 28 / F ADM Date: 08/15/24 Loc: ER Attending Dr: Ordering Physician: Everardo Rothman NP Date of Service: 08/15/24 Procedure(s): US pelvis transvaginal Accession Number(s): [id number] cc: Iron Garcia M.D.; Everardo Rothman NP [place] [id number] Patient Name: ESTER MACIAS MRN: [facility]:[id number] date: 1995 Sex: F Assigned Patient Location: ER Current Patient Location: ER Accession/Order Number: [id number] Exam Date: 08/15/2024 21:29 Report Date: 08/15/2024 [...] Eugene M.D. 08/15/2024 9:34 PM Dictation Location: [place] [address] Electronically authenticated by: [id number] Y Date: 08/15/2024 21:34 Dictated By: Cody Eugene D.O. Signed By: 08/15/242136 DD/ 33 TD/TT: Charge Nurse:LDH Reviewed date:08/27/2024 08:51:37 PM Interpretation: Performing Lab: Notes/Report: [facility] ,Lactate Aiissvridrfiu33186-331 U/LPerforming Lab:see noteML - [facility] LBCEA Reviewed date:08/28/2024 04:06:06 PM Interpretation: Performing Lab: Notes/Report: [facility] ,CEA1.50.0-4.7 ng/mL Nonsmokers <3.9 Smokers <5.6 [facility] [employer] Electrochemiluminescence Immunoassay (ECLIA) Values obtained with different assay methods or kits cannot be used interchangeably. Results cannot be interpreted as absolute evidence of the presence or absence of malignant disease. Performed at: [address] [id number] Newspaper Subscription Solicitor: Jose Orellana PhD, Phone: [phone] Performing Lab:see [facility] LBAFP, Serum, Tumor Marker Reviewed date:08/28/2024 04:06:06 PM Interpretation: Performing Lab: Notes/Report: [facility] ,AFP, Serum, Tumor Marker2.40.0-4.7 ng/mL [employer] Electrochemiluminescence Immunoassay (ECLIA) Values obtained with different assay methods or kits cannot be used interchangeably. Results cannot be interpreted as absolute evidence of the presence or absence of malignant disease. This test is not interpretable in females. Performing Lab:see [facility] LBCancer Antigen (CA) 125 Reviewed date:08/28/2024 04:06:06 PM Interpretation: Performing Lab: Notes/Report: [facility] ,Cancer Antigen (CA) 28093.80.0-38.1 U/mL [employer] Electrochemiluminescence Immunoassay (ECLIA) Values obtained with different assay methods or kits cannot be used interchangeably. Results cannot be interpreted as absolute evidence of the presence or absence of malignant disease. Performed at: [address] [id number] Newspaper Subscription Solicitor: Jose Orellana PhD, Phone: [phone] Performing Lab:see [facility] LBHCG Tumor Marker Reviewed date:08/28/2024 04:06:06 [...] developed and its performance characteristics determined by [facility]. It has not been cleared or approved by the Food and Drug Administration for use as a tumor marker. This test is not interpretable as a tumor marker in females. Performed at: [address] [id number] Newspaper Subscription Solicitor: Jose Orellana PhD, Phone: [phone] Performing Lab:see noteLC - [facility] LBCBC AUTO DIFF Reviewed date:09/13/2024 06:52:01 PM Interpretation: Performing Lab: Notes/Report: [facility] ,White Blood Count11.04.0-11.0 10 3/uLRed Blood Count4.194.20-5.40 10 6/uL Aqwaxaujpn38.412.0-16.0 g/jDOzemawlmqd11.436.0-48.0 %Mean Corpuscular Ydzaso60.3 81.0-99.0 fLMean Corpuscular Stkthvteso49.626.7-34.0 pgMean Corpuscular HGB Conc 33.229.9-35.2 g/dLRed Cell Distribution Width13.011.0-15.0 %Platelet Krgsv606 150-450 10 3/uLMean Platelet Volume9.39.5-13.5 fLNeutrophils Percent Auto65.3 43.0-75.0 %Lymphocytes Percent Auto22.620.5-60.0 %Monocytes Percent Auto9.81.7- 12.0 %Eosinophils Percent Auto1.70.9-7.0 %Basophils Percent Auto0.30.2-2.0 % Immature Granulocytes Pct Auto0.30.0-0.5 %Neutrophils Absolute Auto7.21.4-6.5 10 3/uLLymphocytes Absolute Auto2.51.2-3.8 10 3/uLMonocytes Absolute Auto1.10.3-0.8 10 3/uLEosinophils Absolute Auto0.20.0-0.7 10 3/uLBasophils Absolute Auto0.00.0- 0.1 10 3/uLImmature Granulocytes Abs Auto0.030.00-0.03 10 3/uLPerforming Lab:see noteML - [facility] LBPREG QUANT HCG Reviewed date:09/13/2024 06:52:01 PM Interpretation: Performing Lab: Notes/Report: [facility] ,HCG Quantitative<1 5-50 0.2-1 WEEK 50-500 1-2 WEEKS 100-5,000 2-3 WEEKS 500-10,000 3-4 WEEKS 1,000-50,000 4-5 WEEKS 10,000-100,000 5-6 WEEKS 15,000-200,000 6-8 WEEKS 10,000-100,000 2-3 MONTHS Performing Lab:see noteML - [facility] LBFREE T3 Reviewed date:01/16/2025 01:05:41 PM Interpretation: Performing Lab: Notes/Report: [facility] ,Free T32.632.18-3.98 pg/mLPerforming Lab:see note - [facility] LB PROF 14(COMP METB) Reviewed date:01/16/2025 01:05:41 PM Interpretation: Performing Lab: Notes/Report: [facility] ,Fzjyvb683873-613 mmol/LPotassium4.23.5-5.1 mmol/NCltsbfjd89333-864 mmol/LCarbon Kkdlkaw23.421.0-32.0 mmol/LAnion Gap12.6Onnnyto14103-127 mg/dLBlood Urea Hssvwscm36.07.0-18.0 mg/dLCreatinine0.600.55-1.02 mg/dLEstimated GFR ( Christina>60>=60 mL/min/1.73m 2Estimated GFR (Non- Rhianna>60>=60 mL/min/1.73m 2BUN Creatinine Ratio28.2Dwgkujb8.88.5-10.1 mg/dLBilirubin Total1.20.2-1.0 mg/dL Aspartate Amino Sulbsvehmxf6031-85 U/LAlanine Njttfyltauuhghtc8570-87 U/L Alkaline Jruvryhkbvc9163-469 U/LTotal Protein6.96.4-8.2 g/dLAlbumin Level3.73.4- 5.0 g/dLGlobulin3.2Albumin Globulin Ratio1.2Performing Lab:see noteML - [facility] LBT4 Reviewed date:01/16/2025 01:05:41 PM Interpretation: Performing Lab: Notes/Report: [facility] ,T4 Thyroxine7.804.80-13.90 ug/dLPerforming Lab:see note - [facility] LBTSH Reviewed date:01/16/2025 01:05:41 PM Interpretation: Performing Lab: Notes/Report: [facility] ,Thyroid Stimulating Hormone1.4020.358-3.740 uIU/mLPerforming Lab:see jesus - [facility] LBProgesterone Reviewed date:01/17/2025 09:53:06 AM Interpretation: Performing Lab: Notes/Report: [facility] ,Progesterone0.2. ng/mL Follicular phase 0.1 - 0.9 Luteal phase 1.8 - 23.9 Ovulation phase 0.1 - 12.0 First trimester 11.0 - 44.3 Second trimester 25.4 - 83.3 Third trimester 58.7 - 214.0 Postmenopausal 0.0 - 0.1 Performed at: [address] [id number] Newspaper Subscription Solicitor: Jose Orellana PhD, Phone: [phone] Performing Lab:see [facility] LBLuteinizing Hormone(LH) Reviewed date:01/17/2025 09:53:06 AM Interpretation: Performing Lab: Notes/Report: [facility] ,Luteinizing Hormone(LH)2.9. mIU/mL Adult Female Range Follicular phase 2.4 - 12.6 Ovulation phase 14.0 - 95.6 Luteal phase 1.0 - 11.4 Postmenopausal 7.7 - 58.5 Performing Lab:see [facility] LBEstradiol Reviewed date:01/17/2025 09:53:06 AM Interpretation: Performing Lab: Notes/Report: [facility] ,Gcdrcxymj994.0. pg/mL Adult Female Range Follicular phase 12.5 - 166.0 Ovulation phase 85.8 - 498.0 Luteal phase 43.8 - 211.0 Postmenopausal <6.0 - 54.7 1st trimester 215.0 - >4300.0 Aj ECLIA methodology Performing Lab:see [facility] LBCT abdomen pelvis w con Reviewed date:01/18/2025 03:24:34 PM Interpretation: Performing Lab: Notes/Report: Source Facility: [place] [address] CT Scan Report Signed Patient: ESTER MACIAS MR#: [id number] : 1995 Acct:[id number] Age/Sex: 29 / F ADM Date: 01/18/25 Loc: CT Attending Dr: Iron Garcia M.D. Ordering Physician: Iron Garcia M.D. Date of Service: 01/18/25 Procedure(s): CT abdomen pelvis w con Accession Number(s): [id number] cc: Iron Garcia M.D. [place] [address] Patient Name: ESTER MACIAS MRN: [id number] date: 1995 Sex: F Assigned Patient Location: CT Current Patient Location: CT Accession/Order Number: [id number] Exam Date: 01/18/2025 11:50 Report Date: 01/18/2025 12:35 At the request of: IRON GARCIA MD Procedure: CT abdomen pelvis w con CT abdomen pelvis w con 01/18/2025 12:03 PM SIGNS AND SYMPTOMS: Worsening left flank pain, nausea, intermittent fevers TECHNIQUE: Multidetector ct axial images of the abdomen and pelvis were obtained with IV contrast. Multiplanar reformats were performed and reviewed to further define anatomy and possible pathology. CT was performed with one or more of the following dose reduction techniques: Automated exposure control, adjustment of the mA and/or kV according to patient size, or use of iterative reconstruction technique. COMPARISON: None. FINDINGS: Lower Chest: Within normal limits. ABDOMEN: Liver: Within normal limits. Bile Ducts: Normal caliber. Gallbladder: No calcified gallstones. Normal caliber wall. Pancreas: Within normal limits. Spleen: Within normal limits. Adrenals: Within normal limits. Kidneys: Focal areas of renal cortical atrophy is noted in the left with secondary ileus pyelonephritis or vascular infarcts. Pelvis: Reproductive Organs: Dominant follicles are noted in the adnexa on the right. Ureters: Within normal limits. Bladder: Within normal limits. Bowel: Normal caliber. Mesenteric Lymph Nodes: No enlarged mesenteric lymph nodes. Peritoneum: No ascites or free air, no fluid collection. Vessels: within normal limits Retroperitoneum: Within normal limits. Abdominal Wall: Within normal limits. Bones: Within normal limits. CT/CT abdomen pelvis w con IMPRESSION: Focal areas of renal cortical atrophy is noted in the left with secondary ileus pyelonephritis or vascular infarcts. No bowel obstruction or obstructive uropathy. No acute diverticulitis. Dominant follicles are noted in the right adnexa. No evidence of free fluid or free air. Impression dictated by: Gerry Barnhart M.D. 01/18/2025 12:35 PM Dictation Location: [place] [address] Electronically authenticated by: [id number] Y Date: 01/18/2025 12:35 Dictated By: Gerry Barnhart M.D. Signed By: 01/18/25 1237 DD/ 1235 TD/TT: Charge Nurse:DHEA, Serum Reviewed date:07/08/2024 03:34:30 PM Interpretation: Performing Lab: Notes/Report: [facility] ,DHEA, Zapvd67358-528 ng/dL This test was developed and its performance characteristics determined by [facility]. It has not been cleared or approved by the Food and Drug Administration. Performed at: [address] [id number] Newspaper Subscription Solicitor: Go Valente MD, Phone: [phone] Performing Lab:see [facility] LBFSH Reviewed date:01/17/2025 09:53:06 AM Interpretation: Performing Lab: Notes/Report: [facility] ,FSH2.7. mIU/mL Adult Female Range Follicular phase 3.5 - 12.5 Ovulation phase 4.7 - 21.5 Luteal phase 1.7 - 7.7 Postmenopausal 25.8 - 134.8 Performing Lab:see [facility] LBPROLACTIN Reviewed date:01/17/2025 09:53:06 AM Interpretation: Performing Lab: Notes/Report: [facility] ,Prolactin8.74.8-33.4 ng/mLPerforming Lab:see [facility] LBCBC AUTO DIFF Reviewed date:01/16/2025 01:05:41 PM Interpretation: Performing Lab: Notes/Report: [facility] ,White Blood Count10.64.0-11.0 10 3/uLRed Blood Count4.554.20-5.40 10 6/uL Oiutfxfmrt53.012.0-16.0 g/jQOkpllhpskm36.336.0-48.0 %Mean Corpuscular Mugdzh63.8 81.0-99.0 fLMean Corpuscular Myjqqnrnxx60.826.7-34.0 pgMean Corpuscular HGB Conc 33.929.9-35.2 g/dLRed Cell Distribution Width13.111.0-15.0 %Platelet Pknga064 150-450 10 3/uLMean Platelet Volume9.29.5-13.5 fLNeutrophils Percent Auto75.3 43.0-75.0 %Lymphocytes Percent Auto16.020.5-60.0 %Monocytes Percent Auto7.41.7- 12.0 %Eosinophils Percent Auto0.60.9-7.0 %Basophils Percent Auto0.30.2-2.0 % Immature Granulocytes Pct Auto0.40.0-0.5 %Neutrophils Absolute Auto8.01.4-6.5 10 3/uLLymphocytes Absolute Auto1.71.2-3.8 10 3/uLMonocytes Absolute Auto0.80.3-0.8 10 3/uLEosinophils Absolute Auto0.10.0-0.7 10 3/uLBasophils Absolute Auto0.00.0- 0.1 10 3/uLImmature Granulocytes Abs Auto0.040.00-0.03 10 3/uLPerforming Lab:see noteML - [facility] LB Reason For Referral No Information Medications Medication SIG (Take, Route, Frequency, Duration) Notes Start Date End Date Status Nystatin 772994 UNIT/ML 5 ml Mouth/Throat Four t imes a day; Duration: 14 days 5ActiveCiprofloxacin HCl 500 MG1 tablet Orally every 12 hrs; Duration: 10 days5ActivemetroNIDAZOLE 500 MG1 tablet Orally Three times a day; Duration: 10 days5ActiveAtomoxetine HCl 25 MG1 capsule Orally Twice a day; Duration: 30 day(s)5ActiveImitrex 100 MG1 tablet at least 2 hours between doses as needed Orally Twice a day; Duration: Not-Taking Bactrim DS 800-160 MG1 tablet Orally bid; Duration: 10 days5Active Amoxicillin-Pot Clavulanate 875-125 MG1 tablet Orally every 12 hrs; Duration: 10 days5Active Social History Tobacco Use: Social History Observation Description Date Details (start date - stop date) Never Smoker NA - NA Tobacco Use/Smoking Question Answer Notes Patient is a nonsmoker AUDIT-C (Standard) Question Answer Notes Did you have a drink containing alcohol in the p ast year? No Yeoerv5MbwxiqwjhbxzymXsyxmkjq Problems Problem Type SNOMED Code ICD Code Onset Dates Problem Status W/U Status Risk Notes Problem Amenorrhea (70098064) Amenorrhea, unspeci fied (N91.2) ActiveconfirmedProblemSinusitis (25816475)Sinusitis (J32.9)Activeconfirmed ProblemMigraine without aura, not refractory (480518834)Migraine without aura and without status migrainosus, not intractable (G43.009)ActiveconfirmedProblem Seasonal allergic rhinitis (148812272)Seasonal allergic rhinitis (J30.2)Active confirmedProblemDiverticulitis (95293363)Diverticulitis (K57.92)Activeconfirmed ProblemAllergic rhinitis (95249792)Allergic sinusitis (J30.9)Activeconfirmed Vital Signs Temperature 98.7 degrees Fahrenheit 01/18/2025 Blood pressure zwwnxprdo03 mm Hg01/18/20256686Sqtldg48 in01/18/2025lood pressure bmnqgwux294 mm Hg01/18/20254307Eeiyiw553.8 lbs1MI23.96 kg/m201/18/2025 Encounters Encounter Location Date Provider Diagnosis [place] [id number] [place] [address] 01/18/2025 Abilio Hoy Fever R50.9 and Diverticulitis K57.92 [facility] [address] [place] [address] 05/21/2024 Abilio Hoy Allergic sinusitis J 30.9 [place] [address] [place] [address] 11/05/2024 Abilio Garcia Allergic sinusitis J 30.9 [facility] [address] [facility] [place] [address] 11/23/2024 Abilio Garcia Seasonal allergic rhinitis J30.2 [facility] [address] [facility] [place] [address] 02/08/2024 Abilio Garcia Wellness examination Z01.89 [facility] [address] [facility] [place] [address] 03/02/2024 Abilio Garcia [facility] [facility] [place] [address] 03/05/2024oug [facility] [facility] [place] [address]/08/2024Doug HoyMigraine without aura and without status migrainosus, not intractable G43.009[facility] [facility] [place] [address]/09/2024Doug [facility] [facility] [place] [address]/Doug [facility] [facility] [place] [address]/ Abilio [facility] [facility] [place] [address]/Doug [facility] [facility] [place] [address]/07/2024Doug [facility] [facility] [place] [address]/Doug [facility] [facility] [place] [address]/Doug HoyMigraine without aura and without status migrainosus, not intractable G43.009[facility] [facility] [place] [address]/07/2024 Abilio HoySeasonal allergic rhinitis J30.2[facility] ([place] [place])[address] [facility] [place] [address]/Doug [facility] [facility] [place] [address]/10/2024Doug [facility] [facility] [place] [address]/01/2025 Abilio [facility] [facility] [place] [address]/Doug HoyDysuria R30.0[facility] [facility] [place] [address]/Doug [facility] [facility] [place] [address]/Doug [facility] [facility] [place] [address]/ Abilio [facility] [facility] [place] [address]/Doug [facility] [facility] [place] [address]/Doug [facility] [facility] [place] [address]/Doug HoyAllergic sinusitis J30.9 [facility] [facility] [place] [address] 01/14/2025Doug HoySinusitis J32.9B[facility] ([place], [place])[address] [facility] [place] [address]/Doug HoyAmenorrhea, unspecified N91.2 [facility] [facility] [place] [address] 01/16/2025Doug [facility] [facility] [place] [address]/Doug HoySinusitis J32.9BSt[facility] ([place], [place]) [address] [place] [facility] [place] [address]/Doug [facility]oyBSt[facility] ([place], [place])[address] [place] [facility] [place] [address]/Doug Hoy [facility] [place] [facility] [place] [address] 01/25/2025Doug HoyDehydration E86.0[facility] [place] [facility] [place] [address]/06/2024[facility] [address] [place] [facility] [place] [address]/07/2024Doug HoyFever R50.9 and UTI (urinary tract infection) N39.0 [...] unspecified (ICD-10 - N91.2)01/16/2025Sinusitis (ICD-10 - J32.9) 01/25/2025Dehydration (ICD-10 - E86.0)01/30/2025Fever (ICD-10 - R50.9)01/30/2025 UTI (urinary tract infection) (ICD-10 - N39.0) Plan Of Treatment Pending Test Test Name Order Date CMP (COMPLETE METABOLIC PANEL) UA (URINALYSIS, COMPLETE) 04/07/2023 UA (URINALYSIS, COMPLETE) 01/30/2025 Urinalysis Microscopic 04/07/2023 PROGESTERONE 01/15/2025 CMP - Comprehensive Metabolic Panel 12/27 HCG (Quantitative) 12/10/2022 CBC W/AUTO DIFF 05/24/2023 CBC W/AUTO DIFF 02/08/2024 CBC W/AUTO DIFF 01/30/2025 Rapid COVID-19 Ag 10/17/2023 Ultrasound venous doppler 08/17/2023 GLUCOSE 1 HR 05/24/2023 CRP 01/30/2025 CULTURE URINE 01/30/2025 CULTURE URINE 04/07/2023 ESTRADIOL 01/15/2025 GLYCOHEMOGLOBIN A1C 02/08/2024 INFLUENZA A AND B AG 10/17/2023 INFLUENZA A AND B AG 02/22/2023 LIPID PROFILE 02/08/2024 LUTEINIZING HORMONE (LH) 01/15/2025 RESPIRATORY PANEL PLUS 02/22/2023 SED RATE WESTERGREN 01/30/2025 CT ABD and PELV W CON 01/18/2025 US KIDNEYS 01/25/2025 THYROID PANEL (T4/TSH/FREE T3) 5 THYROID PANEL (T4/TSH/FREE T3) 4 Insurance Providers Payer Name Payer Address Payer Phone Subscriber Number Group Number Insured Name Patient Relationship to Insured Coverage Start Date Coverage End Date [employer] PPO PLUS LOCAL PLAN [address] [place] [address] [id number] Sadie Macias - patient is the spouse of the insured Medications Administered Medication Instructions Date of Administration Dosage Notes Ketorolac Tromethamine mgKetorolac Qiwglmbawahq25/06/202560 mgKetorolac Tromethamine mgKetorolac Opnxadndmksi46/11/202560 mgOrphenadrine Citrate mgPromethazine, 25 mg mgTriamcinolone 40 [...]
--- OUTSIDE RECORDS SUMMARY | 2025-01-30 12:18 | XMS_ITS | Encounter Summary ---
Author Organization [facility] Address [address] [place] [address] Care Team Providers Care Contact Lens Assistant Name Role Phone Erik Garcia MD Primary Care Provider [phone] Erik Garcia MD Primary Care Provider [phone] Encounter Details DateTypeDepartmentCare Team (Latest Contact Info)Cqnyckokudp89/05/2024Clinisync Result Encounter [facility] Unsolicited Ricardo Leggett DO [address] [place] [address] [place] [address] Social History Tobacco UseTypesPacks/DayYears UsedDateSmoking Tobacco: NeverAlcohol UseStandard Drinks/WeekCommentsYes0 (1 standard drink = 0.6 oz pure alcohol)caffeine: occasionalAUDIT-CAnswerDate RecordedQ1: How often do you have a drink containing alcohol?2-4 times a month01/28/2023Q2: How many drinks containing alcohol do you have on a typical day when you are drinking?1 or Q3: How often do you have six or more drinks on one occasion?Hlyfmo4901/28/2023CommentsYesSex and Gender InformationValueDate RecordedSex Assigned at SopyqTgdzrp46/28/2023 10:50 AM EDTLegal UvuUlvdtb16/15/2023 8:06 PM EDTGender PeejhhmxLnkrmh37/28/2023 10:50 AM EDTSexual OdahhadfeqwFxyqcmro87/28/2023 10:50 AM EDTdocumented as of this encounter Plan of Treatment Not on file documented as of this encounter Procedures Procedure NamePriorityDate/TimeAssociated DiagnosisCommentsUS OB TRANSVAGINAL 04/01/2023 7:16 AM EST documented in this encounter Results * US OB TRANSVAGINAL (04/01/2023 7:16 AM EST)Anatomical RegionLateralityModality OtherSpecimen (Source)Anatomical Location / LateralityCollection Method / VolumeCollection TimeReceived Time04/01/2023 7:16 AM EST Narrative 04/01/2023 7:19 AM EST [facility] ?[address] ? [place] [address] ? Ultrasound Report ? Signed ? Patient: DEARTH,KASANDRA D ?MR#: [id number] ?? : 1995 ?Acct:[id number] ?? Age/Sex: 27 / F ?ADM Date: 03/31/23 ?? Loc: US ? Attending Dr: Ricardo Leggett D.O. ? Ordering Physician: Ricardo Leggett D.O. ?? Date of Service: 03/31/23 ?? Procedure(s): US OB transvaginal ?? Accession Number(s): [id number] ? cc: Ricardo Leggett D.O.; Erik Garcia M.D. ? [facility] ? [facility]. [facility] ? [place] [address] ? Patient Name: ?? KASANDRA COE ? MRN: [facility]:[id number] ? date: 1995 ?Sex: F ?? Assigned Patient Location: US ?? Current Patient Location: ? Accession/Order Number: [id number] ?? Exam Date: 03/31/2023 ??19:37 ?Report Date: 04/01/2023 ??07:16 ? At the request of: ?? RICARDO ??JENNIFER ? Procedure: ??US OB transvaginal ? EXAMINATION: US OB anatomy, US OB [...] NITHYA by EDC: 08/19/2023 ? US/US OB transvaginal ?? IMPRESSION: ? Normal anatomy scan ? Closed cervix measuring 4.6 cm in length ? *Reference: [facility] Practice Guideline for the performance of Obstetric ?? Ultrasound ?? Examinations, December 26, 2006. ? Electronically authenticated by: DUDLEY ??EDGAR ?? Date: 04/01/2023 ??07:16 ? Dictated By: ?Dudley Hernández M.D. ? Signed By: ?04/01/23718 ? DD/ 5 ? TD/TT: ? Medical Staff Services Manager: Procedure Note Radiology, Radiologist, MD - 06/01/2023 [place] [address] Ultrasound Report Signed Patient: KASANDRA MACIAS [facility]#: [id number] : 1995Acct:[id number] Age/Sex: 27 / FADM Date: 03/31/23 Loc: US Attending Dr: Ricardo Leggett D.O. Ordering Physician: Ricardo Leggett D.O. Date of Service: 03/31/23 Procedure(s): US OB transvaginal Accession Number(s): [id number] cc: Ricardo Leggett D.O.; Erik Garcia M.D. [place] [id number] Patient Name: KASANDRA MACIAS MRN: [id number] date: 1995 Sex: F Assigned Patient Location: US Current Patient Location: Accession/Order Number: [id number] Exam Date: 03/31/2023 19:37 Report Date: 04/01/2023 07:16 At the request of: RICARDO LEGGETT Procedure: US OB transvaginal EXAMINATION: US OB anatomy, US OB transvaginal [...] 08/20/2023 NITHYA by EDC: 08/19/2023 US/US OB transvaginal IMPRESSION: Normal anatomy scan Closed cervix measuring 4.6 cm in length *Reference: [facility] Practice Guideline for the performance of Obstetric Ultrasound Examinations, December 26, 2006. Electronically authenticated by: DUDLEY HERNÁNDEZ Date: 04/01/2023 07:16 Dictated By: Dudley Hernández M.D. Signed By:04/01/23718 DD/ 5 TD/TT: Medical Staff Services Manager: Authorizing ProviderResult TypeResult StatusCorey Jennifer DOCLINISYNC IMAGINGFinal Result documented in this encounter Visit Diagnoses Not on filedocumented in this encounter Care Teams Team MemberRelationshipSpecialtyStart DateEnd Date Erik Garcia MD PCP - GeneralFamily Medicine/ Erik Garcia MD [address] [place] [phone] PCP - GeneralFamily Medicine08/21/24documented as of this encounter
--- OUTSIDE RECORDS SUMMARY | 2025-01-30 12:18 | XMS_ITS | CCD ---
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 Name Role Phone LydiaDudley Unavailable Mohini Martinez [...] ., DR PERDUE Primary Care Unavailable Iron Avila MD Primary Care Provider [phone] Iron Avila MD Primary Care Provider [id number] Hannah David DO Attending Provider [phone] MarkerHannah Admitting Unavailable Hannah David Attending Unavailable Jennifer, Ricardo Admitting Unavailable Jennifer, Ricardo Attending Unavailable JENNIFER, RICARDO Attending Unavailable JOSI PRESCOTT Attending Unavailable JENNIFER, RICARDO Attending Unavailable JENNIFER, RICARDO Attending Unavailable JENNIFER, RICARDO Attending Unavailable JOSI PRESCOTT Attending Unavailable Iron Avila MD Primary Care Provider [phone] Iron Avila MD Primary Care Provider [phone] Medications Current Medications MedicationDrug Class(es)DatesSig (Normalized)Sig (Original)[id number] 200 actuat albuterol 0.09 mg/actuat metered dose inhaler (1 source)beta2-Adrenergic AgonistStart: 72-77-5867krkTJWwoe (1 source)levocetirizine (2 sources)Histamine-1 Receptor AntagonistXyzal ActivemedroxyPROGESTERone acetate 10 mg oral tablet (8 sources)ProgestinStart: 03-01-2024 End: 25-25-5949xjfr 1 tablet by mouth once dailymedroxyPROGESTERone (Provera) 10 MG tablet Indications: Abnormal vaginal bleeding Take 1 tablet (10mg) by mouth Daily for 14 days 14 tablet 03/01/2024 08/21/2024 LtzoavkwdahmKvytyb35-Glgt Fum- Folic Ac-Om3 (One A Day Women's Dha) 28 mg iron- 800 mcg combo pack (2 sources)Start: 72-84-9542Ygbrll79-Iron Fum-Folic Ac-Om3 (One A Day Women's Dha) 28 mg iron- 800 mcg combo pack Active PKG PO May 22, 2023 1:00amStart: 82-73-3288Tdoxcy99-Iron Fum-Folic Ac-Om3 (One A Day Women's Dha) 28 mg iron- 800 mcg combo pack Active PKG PO May 22, 2023 12:00amSertraline (1 source)Serotonin Reuptake InhibitorVitamin D3 (2 sources)Vitamin D3 Active Completed/Discontinued Medications MedicationDrug Class(es)DatesSig (Normalized)Sig (Original)24 hr buPROPion hydrochloride 150 mg extended release oral tablet (3 sources)AminoketoneStart: 11-17-2022 End: 59-30-6591bmrf 1 tablet by mouth every twenty-four hours in the morning buPROPion XL (Wellbutrin XL) 150 MG 24 hr tablet Take 150 mg by mouth in the morning. 11/17/2022 06/13/2023 Uaqnkugjwckk66 hr desvenlafaxine succinate 50 mg extended release oral tablet (4 sources)Serotonin and Norepinephrine Reuptake InhibitorStart: 05-11-2017 End: 34-63-0109hfpq 1 tablet by mouth once daily, then take 1 tablet by mouth every twenty-four hoursDesvenlafaxine Succinate (Pristiq) 50 mg tablet extended release 24 hr Discontinued 50 MG PO Daily May 11, 2017 1:00am May 22, 2023 10:32amdicyclomine hydrochloride 20 mg oral tablet (2 sources)AnticholinergicStart: 32-21-8125aamf 1 tablet by mouth every twelve hoursfamotidine 20 mg oral tablet (1 source)Histamine-2 Receptor Antagonist End: 66-62-1766ijxd 1 tablet by mouth once dailyfamotidine (Pepcid) 20 MG tablet Take 20 mg by mouth Daily 07/28/2023 Discontinued1 ml galcanezumab-gnlm 120 mg/ml auto-injector (3 sources) End: 10-88-4854glysroncexih (Emgality) 120 MG/ML auto-injector Emgality 06/13/2023 DiscontinuedlevoFLOXacin 500 mg oral tablet (3 sources)Quinolone AntimicrobialStart: 07-27-2022 End: 44-58-9373cwed 1 tablet by mouth in the morninglevoFLOXacin (Levaquin) 500 MG tablet Take 1 tablet by mouth in the morning. 07/27/2022 06/13/2023 D iscontinuedlinaclotide 0.072 mg oral capsule (4 sources)Guanylate Cyclase-C AgonistStart: 05-11-2017 End: 98-69-9019nizd 1 capsule by mouth once dailyLinaclotide (Linzess) 72 mcg capsule Discontinued 72 MCG PO Daily May 11, 2017 1:00am May 12, 2017 8:46amLinzess 72 MCG Oral for 30 Not-Takinglubiprostone 0.008 mg oral capsule (4 sources)Chloride Channel ActivatorStart: 05-12-2017 End: 14-84-3364mtti 1 capsule by mouth twice dailyLubiprostone (Amitiza) 8 mcg Capsule Discontinued 8 MCG PO Twice daily May 12, 2017 1:00am May 22, 2023 10:32amtake 1 capsule by mouth every twelve hoursmagnesium oxide 400 mg oral capsule (3 sources)Start: 02-22-2023 End: 03-41-7739pbph 1 capsule by mouth in the morningmagnesium oxide 400 MG capsule Indications: Cluster headache, not intractable, unspecified chronicity pattern Take 1 capsule (400 mg) by mouth in the morning. 30 capsule 11 02/22/2023 06/13/2023 Discontinuedosmotic 24 hr metFORMIN hydrochloride 500 mg extended release oral tablet (3 sources)Biguanide End: 10-62-5355otaMTXYKU, OSM, (Fortamet) 500 MG 24 hr tablet metFORMIN HCl ER 06/13/2023 DiscontinuedmetFORMIN, OSM, (Fortamet) 500 MG 24 hr tablet metFORMIN HCl ER 0 Activeondansetron 4 mg oral tablet (3 sources)Serotonin-3 Receptor AntagonistStart: 02-19-2023 End: 42-79-0212hmmo 1 tablet by mouth twice daily as needed for nausea ondansetron (Zofran) 4 MG tablet TAKE 1 TABLET BY MOUTH TWICE DAILY NEEDED FOR NAUSEA Discontinuedpromethazine hydrochloride 25 mg oral tablet (3 sources)PhenothiazineStart: 02-24-2023 End: 23-16-6378uabd 1 tablet by mouth every six hours as neededpromethazine (Phenergan) 25 MG tablet 1 tablet as needed Orally q6h for 30 02/24/2023 06/13/2023 DiscontinuedSUMAtriptan 100 mg oral tablet (3 sources)Serotonin-1b and Serotonin-1d Receptor Agonist End: 32-13-4048TGNNjvewtgo (Imitrex) 100 MG tablet TAKE 1 TABLET AT LEAST 2 HOURS BETWEEN DOSES NEEDED TWICE A DAY 06/13/2023 Discontinued Problems Active Problems Problem ClassificationProblemDateDocumented DateEpisodic/ChronicAbdominal pain (10 sources)Abdominal pain; Translations: [Unspecified abdominal pain]Onset: 11-91-2564HhncmqbtJklrfx (2 sources)Exacerbation of intermittent asthma; Translations: [Mild intermittent asthma with (acute) exacerbation]Onset: 01-27-2021 Resolved: 10-86-6364NxwaaujSbkelacrzrark (1 source)Endometriosis, unspecified; Translations: [ENDOMETRIOSIS UNSPECIFIED] Onset: 05-63-9836UwlmzdrDkssvo infertility (4 sources)Female infertility associated with anovulation; Translations: [FE INFERTILITY ASSOC W/ANOVULATION]Onset: 35-95-9166PjamzwuKiippllomnmpp symptoms and ill-defined conditions (2 sources)Stoma finding; Translations: [Unspecified cystostomy status] 24-31-2295KdtecunIeyjuksq; including migraine (5 sources)Migraine, unspecified, not intractable, without status migrainosus; Translations: [MIGRAINE UNS NOTINTRACT W/O SM]Onset: 45-39-8090ZqjtykaNqnrwrmsf disorders (11 sources)Amenorrhea, unspecified; Translations: [Irregular menstruation, unspecified]Onset: 51-37-6207KorgatpRzpar aftercare (2 sources)Postoperative visit; Translations: [Encounter for other specified surgical aftercare]02-60-8573YptyfudsYuwdr endocrine disorders (20 sources)Hypoglycemia; Translations: [Hypoglycemia, unspecified]Onset: 288459-44-0749SrpdyvuBghpy endocrine disorders (2 sources)Polycystic ovary syndrome; Translations: [Polycystic ovarian syndrome]69-07-7516TxjvzbcIkpjh female genital disorders (2 sources)Abnormal vaginal bleeding; Translations: [Abnormal uterine and vaginal bleeding, unspecified]71-83-7176FousdbeBnlvl female genital disorders (4 sources)Noninflammatory disorder of ovary, fallopian tube and broad ligament, unspecified; Translations: [OTH NONINFL D/O OVARY TUBE AND BRD LIG]Onset: 82-24-9797KbtnnkihMxaoy gastrointestinal disorders (2 sources)Irritable bowel syndrome characterized by constipation; Translations: [Irritable bowel syndrome with constipation]ChronicOther gastrointestinal disorders (2 sources)Irritable bowel syndrome; Translations: [Mixed irritable bowel syndrome]ChronicOther gastrointestinal disorders (1 source)Mixed irritable bowel syndrome; Translations: [Irritable bowel syndrome with both constipation and diarrhea K58.2]Onset: 12-22-2020 Resolved: 71-80-3009RavepvaJdchs gastrointestinal disorders (2 sources)Altered bowel function; Translations: [Change in bowel habit] 40-86-1696TnwhpqylJlxnlaq on above:Problem List clean-up per request of Phys. EHR CmteOther nutritional; endocrine; and metabolic disorders (5 sources)Metabolic syndrome; Translations: [METABOLIC SYNDROME]Onset: 71-98-4267OepmrgkInahd nutritional; endocrine; and metabolic disorders (1 source)Weight loss; Translations: [Abnormal weight loss]97-77-4934Dxpxrhhn Other nutritional; endocrine; and metabolic disorders (1 source)Weight decreased; Translations: [Abnormal weight loss]03-09-2023 EpisodicComment on above:Problem List clean-up per request of Phys. EHR Cmte Other screening for suspected conditions (not mental disorders or infectious disease) (6 sources)Other specified abnormal findings of blood chemistry; Translations: [Patient encounter status]Onset: 78-47-4251UyiaawdfDllupcd cyst (11 sources)Unspecified ovarian cyst, left side; Translations: [Other ovarian cyst, right side]Onset: 00-93-8620BdkrkvmySklhgwrk codes; unclassified (2 sources)History of laparoscopy; Translations: [Other specified postprocedural states]82-76-4647MsxnzbyrTmorypavcia; intervertebral disc disorders; other back problems (4 sources)Other cervical disc degeneration, unspecified cervical region; Translations: [OTH CERV DISC DEGENERATION UNS CERV]Onset: 32-88-2076Jvegaed Unclassified (4 sources)CONTACT W/AND (SUSP) EXPOS COVID-19; Translations: [CONTACT W/AND (SUSP) EXPOS COVID-19]Onset: 02-12-2022 Past or Other Problems Problem ClassificationProblemDateDocumented DateEpisodic/ChronicAcute bronchitis (5 sources)Acute bronchitis, unspecified; Translations: [ACUTE BRONCHITIS UNSPECIFIED]Onset: 45-32-7654WdbqwiocMcdoiiqwbl and other anemia (20 sources)Anemia; Translations: [Anemia, unspecified]Onset: 05-26-2023 30-05-7918XhygdgawVfjsbjapyianr and screening for infectious disease (1 source)Contact with and (suspected) exposure to other viral communicable diseasesOnset: 01-27-2021 Resolved: 79-72-5030JuqqcakuAvhfyh and vomiting (2 sources)Nausea; Translations: [Nausea]EpisodicOther gastrointestinal disorders (2 sources)Constipation alternates with diarrhea; Translations: [Other specified symptoms and signs involving the digestive system and abdomen]EpisodicOther gastrointestinal disorders (4 sources)Abdominal distension (gaseous); Translations: [ABDOMINAL DISTENSION GASEOUS]Onset: 70-00-9641IfxqrwxbAlmiq and delivery including normal (20 sources)Second trimester ; Translations: [Encounter for supervision of normal , unspecified, second trimester]Onset: 926375-24-0136 EpisodicOther upper respiratory infections (4 sources)Acute pharyngitis, unspecified; Translations: [ACUTE PHARYNGITIS UNSPECIFIED]Onset: 33-52-0882XczgeqqfEnersqpgampkwj and other problems of amniotic cavity (20 sources)Abnormal amniotic fluid; Translations: [Polyhydramnios, unspecified trimester, not applicable or unspecified]Onset: 876777-28-0568Bpaxwthx Residual codes; unclassified (20 sources)Gestation period, 32 weeks; Translations: [32 weeks gestation of ]Onset: 359701-08-7589QyvxqmfiLfsfrwnmfves (1 source)CONTACT W/AND (SUSP) EXPOS COVID-19; Translations: [CONTACT W/AND (SUSP) EXPOS COVID-19]Onset: 04-01-2022 Results Test NameValueInterpretationReference RangeFacilityALL CBC WITH AUTO DIFFon 07-75-1760QTNKXCUWO ABSOLUTE OOBP7YEON HealthcareBasophils/100 WBC (Bld)0.3 %0.2 - 2.0 %NOMS HealthcareEosinophils/100 WBC (Bld)1.7 %0.9 - 7.0 %[facility] Erythrocyte distribution width (RBC) [Ratio]13 %11.0 - 15.0 %[facility] Hematocrit (Bld) [Volume fraction]37.4 %36.0 - 48.0 %[facility] HospitalHemoglobin (Bld) [Mass/Vol]12.4 g/dL12.0 - 16.0 g/dLJefferson Memorial HospitalIMMATURE GRANULOCYTES ABS AUTO0.03NOMS [facility] HospitalImmature granulocytes/100 WBC (Bld)0.3 %0.0 - 0.5 % [facility] HealthcareInterpretation and review of laboratory resultsAbnormalNOSac-Osage HospitalLYMPHOCYTES ABSOLUTE AUTO2.5NOMS [facility] HospitalLymphocytes/100 WBC (Bld) 22.6 %20.5 - 60.0 %[facility] HospitalMCH (RBC) [Entitic mass]29.6 pg26.7 - 34.0 pg [facility] HospitalMCHC (RBC) [Mass/Vol]33.2 g/dL29.9 - 35.2 g/dLJefferson Memorial HospitalMCV (RBC) [Entitic vol]89.3 fL81.0 - 99.0 fLJefferson Memorial HospitalMONOCYTES ABSOLUTE AUTO 1.1HighNOWY HealthcareMonocytes/100 WBC (Bld)9.8 %1.7 - 12.0 %[facility] NEUTROPHILS ABSOLUTE AUTO7.2HighNOSac-Osage HospitalNeutrophils/100 WBC (Bld)65.3 % 43.0 - 75.0 %[facility] HospitalPlatelet mean volume (Bld) [Entitic vol]9.3 fLLow9.5 - 13.5 fLJefferson Memorial HospitalTBH EO #0.2NOMS HealthcareTBH [id number] HealthcareTB RBC4.19LowNOMS [facility] HospitalTB [id number] HealthcareCLINISYNCNOMS HealthcareLon 09-13-2024L Specimen: [id number] Received: 09/13/24 Status: LESLEY Jones Num: [id number] Spec Type: Cytology Subm Dr: Ricardo Rodriguez Tissues: A CYST FLUID (LT OVARY FLUID) Procedures: HE/2, Gross/Micro L4, Cyto Prepstain, PAPSTN Age/ Patient Sex Location Account Attending Physician Ester Macias 28/ LABELL [id number] Ricardo Rodriguez SPEC NUM: [id number] RECD: 09/13/24 STATUS: LESLEY JONES NUM: [id number] BETHEL: 09/13/[address]: Ricardo Rodriguez ENTERED: 09/13/24-[address] [facility] [address]: Shalini,Lab SPEC TYPE: Cytology DEPT: BEATRICE BOUDREAUX ENTERED BY: [id number] RECV BY: [id number] ORDERED: HE/2, Gross/Micro L4, Cyto Prepstain, PAPSTN [...] block preparations are prepared for microscopic examination. (/nh) Microscopic Description Microscopic examination is performed. CPT Codes 80179, 59011 Specimen: [id number] Received: 09/13/24 Status: LESLEY Jones Num: [id number] Spec Type: Cytology Subm Dr: Ricardo Rodriguez Tissues: A CYST FLUID (LT OVARY FLUID) Procedures: HE/2, Gross/Micro L4, Cyto Prepstain, PAPSTN Patient: Ester Macias [id number] (Continued) Signed (signature on file) Héctor Valverde MD 09/14/24 1017Normal [facility] Physician GroupALL LDHon 07-89-3353UYO [Catalytic activity/Vol]188 U/L81 - 234 U/LNOMS HealthcareCLINISYNCNOMS HealthcareUrine Cultureon 08-15-2024 Bacteria identified Cx Nom (U)<9,000 colonies/ml mixed bacterial skin contaminants 2 Days PERFORMED BY: [facility] [address] [place] [address] [address] UNIX SYSTEM ADMINISTRATOR GHAZAL PearceAdventhealth Waterman Physician GroupComment on above: Performed By: #### CUU #### [facility] [address] [place] [address] USAALL CBC WITH AUTO DIFFon 86-48-3711IUEVILEWU ABSOLUTE AUTO 0NOMS HealthcareBasophils/100 WBC (Bld)0.5 %0.2 - 2.0 %NOMS Healthcare Eosinophils/100 WBC (Bld)2.6 %0.9 - 7.0 %NOMS HealthcareErythrocyte distribution width (RBC) [Ratio]13.3 %11.0 - 15.0 %NOMS HealthcareHematocrit (Bld) [Volume fraction]39.2 %36.0 - 48.0 %NOMS HealthcareHemoglobin (Bld) [Mass/Vol]12.8 g/dL 12.0 - 16.0 g/dLNOMS HealthcareIMMATURE GRANULOCYTES ABS AUTO0.02NOMS Healthcare Immature granulocytes/100 WBC (Bld)0.3 %0.0 - 0.5 %NOMS HealthcareInterpretation and review of laboratory resultsAbnormalNOWY HealthcareLYMPHOCYTES ABSOLUTE AUTO1.7NOMS HealthcareLymphocytes/100 WBC (Bld)27.1 %20.5 - 60.0 %NOMS [facility] CenterH (RBC) [Entitic mass]29.4 pg26.7 - 34.0 pgNOFreeman Heart InstituteHC (RBC) [Mass/Vol]32.7 g/dL29.9 - 35.2 g/dLNOFreeman Heart InstituteV (RBC) [Entitic vol]89.9 fL 81.0 - 99.0 fLNOWY HealthcareMONOCYTES ABSOLUTE AUTO0.6NOMS Healthcare Monocytes/100 WBC (Bld)9.9 %1.7 - 12.0 %NOMS HealthcareNEUTROPHILS ABSOLUTE AUTO 3.7NOMS HealthcareNeutrophils/100 WBC (Bld)59.6 %43.0 - 75.0 %[facility]OMThe [facility] Platelet mean volume (Bld) [Entitic vol]8.9 fLLow9.5 - 13.5 fLNOSac-Osage HospitalTBH EO #0.2NOMS HealthcareTBH [id number] [facility] HospitalTB RBC4.36NOMS [facility] HospitalTB WBC 6.2NOMS HealthcareCLINISYNCNOMS HealthcareUS PELVIS W/ TRANSVAGINALon 03-28-[address] [address] Ultrasound Report Signed Patient: ESTER MACIAS MR#: [id number] : 1995 Acct:[id number] Age/Sex: 28 / F ADM Date: 03/27/24 Loc: US Attending Dr: Ricardo Rodriguez D.O. Ordering Physician: Ricardo Rodriguez D.O. Date of Service: 03/27/24 Procedure(s): US pelvis w/ transvaginal Accession Number(s): [id number] cc: Ricardo Rodriguez D.O.; Iron Avila M.D. [address] [address] Patient Name: ESTER MACIAS MRN: [id number] date: 1995 Sex: F Assigned Patient Location: US Current Patient Location: Accession/Order Number: [id number] Exam Date: 03/27/2024 14:05 Report Date: 03/28/2024 [...] symptoms. Electronically authenticated by: LAM MACHUCA Date: 03/28/2024 03:32 Dictated By: Lam Machuca M.D. Signed By: 03/28/24334 DD/ 1 TD/TT: Security Team Lead:CARYHRadiology, Radiologist, MD - 03/28/2024 [place] [address] Ultrasound Report Signed Patient: ESTER MACIAS MR#: [id number] : 1995 Acct:[id number] Age/Sex: 28 / F ADM Date: 03/27/24 Loc: US Attending Dr: Ricardo Rodriguez D.O. Ordering Physician: Ricardo Rodriguez D.O. Date of Service: 03/27/24 Procedure(s): US pelvis w/ transvaginal Accession Number(s): [id number] cc: Ricardo Rodriguez D.O.; Iron Avila M.D. The [address] [address] Patient Name: ESTER MACIAS MRN: [id number] date: 1995 Sex: F Assigned Patient Location: US Current Patient Location: Accession/Order Number: [id number] Exam Date: 03/27/2024 14:05 Report Date: 03/28/2024 [...] symptoms. Electronically authenticated by: LAM MACHUCA Date: 03/28/2024 03:32 Dictated By: Lam Machuca M.D. Signed By: 03/28/24334 DD/ 1 TD/TT: Security Team Lead: PAL HealthcareRadiology Study observation (narrative)PAL HealthcareUS PELVIS W/ TRANSVAGINALOrdered By: Radiologist Radiology on 66-57-1057RCKC Healthcare Work Phone: US OB BPP W NON-STRESSon [phone] [place] [phone] Ultrasound Report Signed Patient: ESTER MACIAS MR#: [id number] : 1995 Acct:[id number] Age/Sex: 27 / F ADM Date: 08/08/23 Loc: US Attending Dr: Ricardo Rodriguez D.O. Ordering Physician: Ricardo Rodriguez D.O. Date of Service: 08/08/23 Procedure(s): US OB BPP w non-stress Accession Number(s): [id number] cc: Ricardo Rodriguez D.O.; Iron Avila M.D. The [place] [phone] Patient Name: ESTER MACIAS MRN: [id number] date: 1995 Sex: F Assigned Patient Location: US Current Patient Location: Accession/Order Number: [id number] Exam Date: 08/08/2023 18:00 Report Date: 08/09/2023 [...] amniotic fluid index. Electronically authenticated by: LAM MACHUCA Date: 08/09/2023 07:28 Dictated By: Lam Machuca M.D. Signed By: 08/09/23729 DD/ 7 TD/TT: Security Team Lead:MILESadiology, Radiologist, - 08/09/2023 The [place] [id number] Ultrasound Report Signed Patient: ESTER MACIAS MR#: [id number] : 1995 Acct:[id number] Age/Sex: 27 / F ADM Date: 08/08/23 Loc: US Attending Dr: Ricardo Rodriguez D.O. Ordering Physician: Ricardo Rodriguez D.O. Date of Service: 08/08/23 Procedure(s): US OB BPP w non-stress Accession Number(s): [id number] cc: Ricardo Rodriguez D.O.; Iron Avila M.D. [place] [address] Patient Name: ESTER MACIAS MRN: [facility]:[id number] date: 1995 Sex: F Assigned Patient Location: US Current Patient Location: Accession/Order Number: [id number] Exam Date: 08/08/2023 18:00 Report Date: 08/09/2023 [...] amniotic fluid index. Electronically authenticated by: LAM MACHUCA Date: 08/09/2023 07:28 Dictated By: Lam Machuca M.D. Signed By: 08/09/23729 DD/ 7 TD/TT: Security Team Lead: PAL HealthcareRadiology Study observation (narrative)PAL FlowersUS OB BPP W NON-STRESSOrdered By: Radiologist Radiology on 61-88-0258NBOF Healthcare Work Phone: US OB BPP W NON-STRESSon [phone] [address] Ultrasound Report Signed Patient: ESTER MACIAS MR#: [id number] : 1995 Acct:[id number] Age/Sex: 27 / F ADM Date: 08/01/23 Loc: US Attending Dr: Ricardo Rodriguez D.O. Ordering Physician: Ricardo Rodriguez D.O. Date of Service: 08/01/23 Procedure(s): US OB BPP w non-stress Accession Number(s): [id number] cc: Ricardo Rodriguez D.O.; Iorn Avila M.D. The [place] [address] Patient Name: ESTER MACIAS MRN: [facility]:[id number] date: 1995 Sex: F Assigned Patient Location: US Current Patient Location: US Accession/Order Number: [id number] Exam Date: 08/01/2023 21:30 Report Date: 08/02/2023 [...] profile score 8.0. Electronically authenticated by: LAM MACHUCA Date: 08/02/2023 08:22 Dictated By: Lam Machuca M.D. Signed By: 08/02/23823 DD/ 1 TD/TT: Security Team Lead:CARYHRadiology, Radiologist, - 08/02/2023 [place] [address] Ultrasound Report Signed Patient: ESTER MACIAS MR#: [id number] : 1995 Acct:[id number] Age/Sex: 27 / F ADM Date: 08/01/23 Loc: US Attending Dr: Ricardo Rodriguez D.O. Ordering Physician: Ricardo Rodriguez D.O. Date of Service: 08/01/23 Procedure(s): US OB BPP w non-stress Accession Number(s): [id number] cc: Ricardo Rodriguez D.O.; Iron Avila M.D. [place] [phone] Patient Name: ESTER MACIAS MRN: [facility]:[id number] date: 1995 Sex: F Assigned Patient Location: US Current Patient Location: US Accession/Order Number: [id number] Exam Date: 08/01/2023 21:30 Report Date: 08/02/2023 [...] profile score 8.0. Electronically authenticated by: LAM MACHUCA Date: 08/02/2023 08:22 Dictated By: Lam Machuca M.D. Signed By: 08/02/23823 DD/ 1 TD/TT: Security Team Lead: PAL HealthcareRadiology Study observation (narrative)PAL HealthcareUS OB BPP W NON-STRESSOrdered By: Radiologist Radiology on 20-77-7116ZDWV Healthcare Work Phone: US OB BPP W NON-STRESSon [phone] [address] Ultrasound Report Signed Patient: ESTER MACIAS MR#: [id number] : 1995 Acct:[id number] Age/Sex: 27 / F ADM Date: 07/25/23 Loc: US Attending Dr: Ricardo Rodriguez D.O. Ordering Physician: Ricardo Rodriguez D.O. Date of Service: 07/25/23 Procedure(s): US OB BPP w non-stress Accession Number(s): [id number] cc: Ricardo Rodriguez D.O.; Iron Avila M.D. [place] [address] Patient Name: ESTER MACIAS MRN: [facility]:[id number] date: 1995 Sex: F Assigned Patient Location: [facility] Current Patient Location: Accession/Order Number: [id number] Exam Date: 07/25/2023 16:04 Report Date: 07/26/2023 [...] profile score 8.0. Electronically authenticated by: LAM MACHUCA Date: 07/26/2023 05:40 Dictated By: Lam Machuca M.D. Signed By: 07/26/23 0542 DD/ 0540 TD/TT: Security Team Lead:CARYHRadiology, Radiologist, - 07/26/2023 [place] [address] Ultrasound Report Signed Patient: ESTER MACIAS MR#: [id number] : 1995 Acct:[id number] Age/Sex: 27 / F ADM Date: 07/25/23 Loc: US Attending Dr: Ricardo Rodriguez D.O. Ordering Physician: Ricardo Rodriguez D.O. Date of Service: 07/25/23 Procedure(s): US OB BPP w non-stress Accession Number(s): [id number] cc: Ricardo Rodriguez D.O.; Iron Avila M.D. [place] [phone] Patient Name: ESTER MACIAS MRN: [id number] date: 1995 Sex: F Assigned Patient Location: [facility] Current Patient Location: Accession/Order Number: [id number] Exam Date: 07/25/2023 16:04 Report Date: 07/26/2023 [...] profile score 8.0. Electronically authenticated by: LAM MACHUCA Date: 07/26/2023 05:40 Dictated By: Lam Machuca M.D. Signed By: 07/26/2342 DD/ 9 TD/TT: Security Team Lead: PAL HealthcareRadiology Study observation (narrative)NOMS HealthcareUS OB BPP W NON-STRESSOrdered By: Radiologist Radiology on 52-21-9132LVPE Healthcare Work Phone: US OB BPP W NON-STRESSon [phone] [address] Ultrasound Report Signed Patient: ESTER MACIAS MR#: [id number] : 1995 Acct:[id number] Age/Sex: 27 / F ADM Date: 07/21/23 Loc: FBCO Attending Dr: Ricardo Rodriguez D.O. Ordering Physician: Ricardo Rodriguez D.O. Date of Service: 07/21/23 Procedure(s): US OB BPP w non-stress Accession Number(s): [id number] cc: Ricardo Rodriguez D.O.; Iron Avila M.D. The [place] [address] Patient Name: ESTER MACIAS MRN: [facility]:[id number] date: 1995 Sex: F Assigned Patient Location: [facility] Current Patient Location: Accession/Order Number: [id number] Exam Date: 07/21/2023 17:36 Report Date: 07/22/2023 07:49 At the request of: RICARDO RODRIGUEZ Procedure: [...] profile score: 8/8 Electronically authenticated by: DUDLEY DAVIS Date: 07/22/2023 07:49 Dictated By: Dudley Davis M.D. Signed By: 07/22/23 0751 DD/ 0749 TD/TT: Security Team Lead:TBHRadiology, Radiologist, MD - 07/22/2023 [place] [address] Ultrasound Report Signed Patient: ESTER MACIAS MR#: [id number] : 1995 Acct:[id number] Age/Sex: 27 / F ADM Date: 07/21/23 Loc: FBCO Attending Dr: Ricardo Rodriguez D.O. Ordering Physician: Ricardo Rodriguez D.O. Date of Service: 07/21/23 Procedure(s): US OB BPP w non-stress Accession Number(s): [id number] cc: Ricardo Rodriguez D.O.; Iron Avila M.D. [address] [address] Patient Name: ESTER MACIAS MRN: [facility]:[id number] date: 1995 Sex: F Assigned Patient Location: [facility] Current Patient Location: Accession/Order Number: [id number] Exam Date: 07/21/2023 17:36 Report Date: 07/22/2023 07:49 At the request of: RICARDO RODRIGUEZ Procedure: [...] profile score: 8/8 Electronically authenticated by: DUDLEY DAVIS Date: 07/22/2023 07:49 Dictated By: Dudley Davis M.D. Signed By: 07/22/23 0751 DD/ 0749 TD/TT: Security Team Lead: PAL FlowersRadiology Study observation (narrative)NOMS HealthcareUS OB BPP W NON-STRESSOrdered By: Radiologist Radiology on 05-88-7380[facility] Work Phone: US OB BPP W NON-STRESSon 08-11-[place]36[place] [address] Ultrasound Report Signed Patient: ESTER MACIAS MR#: [id number] : 1995 Acct:[id number] Age/Sex: 27 / F ADM Date: 07/18/23 Loc: US Attending Dr: Ricardo Rodriguez D.O. Ordering Physician: Ricardo Rodriguez D.O. Date of Service: 07/18/23 Procedure(s): US OB BPP w non-stress Accession Number(s): [id number] cc: Ricardo Rodriguez D.O.; Iron Avila M.D. [address] [place] [id number] Patient Name: ESTER MACIAS MRN: [facility]:[id number] date: 1995 Sex: F Assigned Patient Location: [facility] Current Patient Location: Accession/Order Number: [id number] Exam Date: 07/18/2023 17:12 Report Date: 07/19/2023 [...] profile score: 6.0 Electronically authenticated by: DUDLEY DAVIS Date: 07/19/2023 07:15 Dictated By: Dudley Davis M.D. Signed By: 07/19/23716 DD/ 4 TD/TT: Security Team Lead:TBHRadiology, Radiologist, MD - 07/19/2023 [place] [address] Ultrasound Report Signed Patient: ESTER MACIAS MR#: [id number] : 1995 Acct:[id number] Age/Sex: 27 / F ADM Date: 07/18/23 Loc: US Attending Dr: Ricardo Rodriguez D.O. Ordering Physician: Ricardo Rodriguez D.O. Date of Service: 07/18/23 Procedure(s): US OB BPP w non-stress Accession Number(s): [id number] cc: Ricardo Rodriguez D.O.; Iron Avila M.D. [address] [address] Patient Name: ESTER MACIAS MRN: [id number] date: 1995 Sex: F Assigned Patient Location: [facility] Current Patient Location: Accession/Order Number: [id number] Exam Date: 07/18/2023 17:12 Report Date: 07/19/2023 [...] profile score: 6.0 Electronically authenticated by: DUDLEY DAVIS Date: 07/19/2023 07:15 Dictated By: Dudley Davis M.D. Signed By: 07/19/23716 DD/ 4 TD/TT: Security Team Lead: NOMTimoteo HealthcareRadiology Study observation (narrative)NOMS HealthcareUS OB BPP W NON-STRESSOrdered By: Radiologist Radiology on 41-82-8236[facility] Work Phone: US OB BPP W NON-STRESSon 80-45-[address] [address] Ultrasound Report Signed Patient: ESTER MACIAS MR#: [id number] : 1995 Acct:[id number] Age/Sex: 27 / F ADM Date: 07/11/23 Loc: US Attending Dr: Ricardo Rodriguez D.O. Ordering Physician: Ricardo Rodriguez D.O. Date of Service: 07/11/23 Procedure(s): US OB BPP w non-stress Accession Number(s): [id number] cc: Ricardo Rodriguez D.O.; Iron Avila M.D. The [address] [address] Patient Name: ESTER MACIAS MRN: [id number] date: 1995 Sex: F Assigned Patient Location: [facility] Current Patient Location: Accession/Order Number: [id number] Exam Date: 07/11/2023 17:05 Report Date: 07/12/2023 [...] profile score: 8.0 Electronically authenticated by: DUDLEY DAVIS Date: 07/12/2023 07:45 Dictated By: Dudley Davis M.D. Signed By: 07/12/23 0747 DD/ 0745 TD/TT: Security Team Lead:TBHRadiology, Radiologist, MD - 07/12/2023 [place] [address] Ultrasound Report Signed Patient: ESTER MACIAS MR#: [id number] : 1995 Acct:[id number] Age/Sex: 27 / F ADM Date: 07/11/23 Loc: US Attending Dr: Ricardo Rodriguez D.O. Ordering Physician: Ricardo Rodriguez D.O. Date of Service: 07/11/23 Procedure(s): US OB BPP w non-stress Accession Number(s): [id number] cc: Ricardo Rodriguez D.O.; Iron Avila M.D. [address] [address] Patient Name: ESTER MACIAS MRN: [facility]:[id number] date: 1995 Sex: F Assigned Patient Location: [facility] Current Patient Location: Accession/Order Number: [id number] Exam Date: 07/11/2023 17:05 Report Date: 07/12/2023 [...] profile score: 8.0 Electronically authenticated by: DUDLEY DAVIS Date: 07/12/2023 07:45 Dictated By: Dudley Davis M.D. Signed By: 07/12/2347 DD/ TD/TT: Security Team Lead: PAL HealthcareRadiology Study observation (narrative)NOMS HealthcareUS OB BPP W NON-STRESSOrdered By: Radiologist Radiology on 35-24-9775[facility] Work Phone: US OB BPP W NON-STRESSon 02-99-9772[place] [address] Ultrasound Report Signed Patient: ESTER MACIAS MR#: [id number] : 1995 Acct:[id number] Age/Sex: 27 / F ADM Date: 07/06/23 Loc: US Attending Dr: Ricardo Rodriguez D.O. Ordering Physician: Ricardo Rodriguez D.O. Date of Service: 07/06/23 Procedure(s): US OB BPP w non-stress Accession Number(s): [id number] cc: Ricardo Rodriguez D.O.; Iron Avila M.D. The [address] [address] Patient Name: ESTER MACIAS MRN: [id number] date: 1995 Sex: F Assigned Patient Location: [facility] Current Patient Location: Accession/Order Number: [id number] Exam Date: 07/06/2023 19:06 Report Date: 07/07/2023 [...] profile score 8.0. Electronically authenticated by: LAM MACHUCA Date: 07/07/2023 08:02 Dictated By: Lam Machuca M.D. Signed By: 07/07/23803 DD/ 1 TD/TT: Security Team Lead:MILESadiologoumou, Radiologist, MD - 07/07/2023 [place] [address] Ultrasound Report Signed Patient: ESTER MACIAS MR#: [id number] : 1995 Acct:[id number] Age/Sex: 27 / F ADM Date: 07/06/23 Loc: US Attending Dr: Ricardo Rodriguez D.O. Ordering Physician: Ricardo Rodriguez D.O. Date of Service: 07/06/23 Procedure(s): US OB BPP w non-stress Accession Number(s): [id number] cc: Ricardo Rodriguez D.O.; Iron Avila M.D. [place] [address] Patient Name: ESTER MACIAS MRN: [id number] date: 1995 Sex: F Assigned Patient Location: [facility] Current Patient Location: Accession/Order Number: [id number] Exam Date: 07/06/2023 19:06 Report Date: 07/07/2023 [...] profile score 8.0. Electronically authenticated by: LAM MACHUCA Date: 07/07/2023 08:02 Dictated By: Lam Machuca M.D. Signed By: 07/07/23803 DD/ 1 TD/TT: Security Team Lead: PAL FlowersRadiology Study observation (narrative)PAL FlowersUS OB BPP W NON-STRESSOrdered By: Radiologist Radiology on 02-10-7479[facility] Work Phone: US OB BPP W NON-STRESSon 27-80-5210[place] [address] Ultrasound Report Signed Patient: ESTER MACIAS MR#: [id number] : 1995 Acct:[id number] Age/Sex: 27 / F ADM Date: 06/27/23 Loc: US Attending Dr: Ricardo Rodriguez D.O. Ordering Physician: Ricardo Rodriguez D.O. Date of Service: 06/27/23 Procedure(s): US OB BPP w non-stress Accession Number(s): [id number] cc: Ricardo Rodriguez D.O.; Iron Avila M.D. [place] [address] Patient Name: ESTER MACIAS MRN: [facility]:[id number] date: 1995 Sex: F Assigned Patient Location: US Current Patient Location: Accession/Order Number: [id number] Exam Date: 06/27/2023 17:04 Report Date: 06/28/2023 07:15 At the request of: RICARDO RODRIGUEZ Procedure: US OB BPP w non-stress EXAMINATION: US OB BPP w non-stress HISTORY: JOSESITO INCREASED O49.9XX0 COMPARISON: Ultrasound amniotic fluid volume 06/09/2023, ultrasound OB growth 05/26/2023 TECHNIQUE: Ultrasound biophysical profile was performed in the radiology department. BREATHING MOVEMENTS: 2.0 GROSS BODY MOVEMENTS: 2.0 TONE: 2.0 QUALITATIVE AMNIOTIC FLUID VOLUME: 2.0 PRESENTATION: CEPHALIC HEART RATE: 157.9 bpm bpm. AMNIOTIC FLUID VOLUME: 19.2 cm GESTATIONAL AGE: 32 weeks 3 days CONCLUSION: Total biophysical profile score 8.0. Electronically authenticated by: LAM MACHUCA Date: 06/28/2023 07:15 Dictated By: Lam Machuca M.D. Signed By: 06/28/23716 DD/ 4 TD/TT: Security Team Lead:CARYHRadiologoumou, Radiologist, - 06/30/2023 [place] [address] Ultrasound Report Signed Patient: ESTER MACIAS MR#: [id number] : 1995 Acct:[id number] Age/Sex: 27 / F ADM Date: 06/27/23 Loc: US Attending Dr: Ricardo Rodriguez D.O. Ordering Physician: Ricardo Rodriguez D.O. Date of Service: 06/27/23 Procedure(s): US OB BPP w non-stress Accession Number(s): [id number] cc: Ricardo Rodriguez D.O.; Iron Avila M.D. The [place] [address] Patient Name: ESTER MACIAS MRN: [id number] date: 1995 Sex: F Assigned Patient Location: US Current Patient Location: Accession/Order Number: [id number] Exam Date: 06/27/2023 17:04 Report Date: 06/28/2023 07:15 At the request of: RICARDO RODRIGUEZ Procedure: US OB BPP w non-stress EXAMINATION: US OB BPP w non-stress HISTORY: JOSESITO INCREASED O49.9XX0 COMPARISON: Ultrasound amniotic fluid volume 06/09/2023, ultrasound OB growth 05/26/2023 TECHNIQUE: Ultrasound biophysical profile was performed in the radiology department. BREATHING MOVEMENTS: 2.0 GROSS BODY MOVEMENTS: 2.0 TONE: 2.0 QUALITATIVE AMNIOTIC FLUID VOLUME: 2.0 PRESENTATION: CEPHALIC HEART RATE: 157.9 bpm bpm. AMNIOTIC FLUID VOLUME: 19.2 cm GESTATIONAL AGE: 32 weeks 3 days CONCLUSION: Total biophysical profile score 8.0. Electronically authenticated by: LAM MACHUCA Date: 06/28/2023 07:15 Dictated By: Lam Machuca M.D. Signed By: 06/28/23716 DD/ 4 TD/TT: Security Team Lead: PAL HealthcareRadiology Study observation (narrative)PAL FlowersUS OB BPP W NON-STRESSOrdered By: Radiologist Radiology on 48-29-3626[facility] Work Phone: US AMNIOTIC FLUID VOLUMEon 26-10-8348[place] [address] Ultrasound Report Signed Patient: ESTER MACIAS MR#: [id number] : 1995 Acct:[id number] Age/Sex: 27 / F ADM Date: 06/09/23 Loc: US Attending Dr: Ricardo Rodriguez D.O. Ordering Physician: Ricardo Rodriguez D.O. Date of Service: 06/09/23 Procedure(s): US OB amniotic fluid vol Accession Number(s): [id number] cc: Ricardo Rodriguez D.O.; Iron Avila M.D. The [address] [address] Patient Name: ESTER MACIAS MRN: [facility]:[id number] date: 1995 Sex: F Assigned Patient Location: US Current Patient Location: LAB Accession/Order Number: [id number] Exam Date: 06/09/2023 15:05 Report Date: 06/09/2023 15:45 At the request of: RICARDO RODRIGUEZ Procedure: US OB amniotic fluid vol EXAMINATION: US OB amniotic fluid vol HISTORY: Polyhydramnios O40.9XX0 COMPARISON: Ultrasound OB growth 05/26/2023 TECHNIQUE: Limited sonographic examination for amniotic fluid volume FINDINGS: presentation: Breech Amniotic fluid volume: 24.2 cm (95th percentile is 23.4 cm). Heart rate: 143 bpm GA: 29 weeks 6 days NITHYA 08/19/2023 US/US OB amniotic fluid vol IMPRESSION: 1. Polyhydramnios; increased since prior study. Electronically authenticated by: LAM MACHUCA Date: 06/09/2023 15:45 Dictated By: Lam Machuca M.D. Signed By: 06/09/23 1547 DD/ 1545 TD/TT: Security Team Lead:CARYHRadiologoumou, Radiologist, - 06/09/2023 [place] [address] Ultrasound Report Signed Patient: ESTER MACIAS MR#: [id number] : 1995 Acct:[id number] Age/Sex: 27 / F ADM Date: 06/09/23 Loc: US Attending Dr: Ricardo Rodriguez D.O. Ordering Physician: Ricardo Rodriguez D.O. Date of Service: 06/09/23 Procedure(s): US OB amniotic fluid vol Accession Number(s): [id number] cc: Ricardo Rodriguez D.O.; Iron Avila M.D. The [address] [id number] Patient Name: ESTER MACIAS MRN: [facility]:[id number] date: 1995 Sex: F Assigned Patient Location: US Current Patient Location: LAB Accession/Order Number: [id number] Exam Date: 06/09/2023 15:05 Report Date: 06/09/2023 15:45 At the request of: RICARDO RODRIGUEZ Procedure: US OB amniotic fluid vol EXAMINATION: US OB amniotic fluid vol HISTORY: Polyhydramnios O40.9XX0 COMPARISON: Ultrasound OB growth 05/26/2023 TECHNIQUE: Limited sonographic examination for amniotic fluid volume FINDINGS: presentation: Breech Amniotic fluid volume: 24.2 cm (95th percentile is 23.4 cm). Heart rate: 143 bpm GA: 29 weeks 6 days NITHYA 08/19/2023 US/US OB amniotic fluid vol IMPRESSION: 1. Polyhydramnios; increased since prior study. Electronically authenticated by: LAM MACHUCA Date: 06/09/2023 15:45 Dictated By: Lam Machuca M.D. Signed By: 06/09/23 1547 DD/ 1545 TD/TT: Security Team Lead: PAL HealthcareRadiology Study observation (narrative)NOMTimoteo FlowersUS AMNIOTIC FLUID VOLUMEOrdered By: Radiologist Radiology on 24-96-8806[facility] Work Phone: US OB GROWTHon [phone] [address] Ultrasound Report Signed Patient: ESTER MACIAS MR#: [id number] : 1995 Acct:[id number] Age/Sex: 27 / F ADM Date: 05/26/23 Loc: NOMS Attending Dr: Ricardo Rodriguez D.O. Ordering Physician: Ricardo Rodriguez D.O. Date of Service: 05/26/23 Procedure(s): US OB growth Accession Number(s): [id number] cc: Ricardo Rodriguez D.O.; Iron Avila M.D. The [place] [phone] Patient Name: ESTER MACIAS MRN: [facility]:[id number] date: 1995 Sex: F Assigned Patient Location: [facility] Current Patient Location: [facility] Accession/Order Number: [id number] Exam Date: 05/26/2023 09:17 Report Date: 05/26/2023 [...] Normal interval growth Electronically authenticated by: DUDLEY DAVIS Date: 05/26/2023 09:49 Dictated By: Dudley Davis M.D. Signed By: 05/26/2352 DD/ TD/TT: Security Team Lead:TBHRadiology, Radiologist, MD - 05/26/2023 [place] [address] Ultrasound Report Signed Patient: ESTER MACIAS MR#: [id number] : 1995 Acct:[id number] Age/Sex: 27 / F ADM Date: 05/26/23 Loc: NOMS Attending Dr: Ricardo Rodriguez D.O. Ordering Physician: Ricardo Rodriguez D.O. Date of Service: 05/26/23 Procedure(s): US OB growth Accession Number(s): [id number] cc: Ricardo Rodriguez D.O.; Iron Avila M.D. [address] [address] Patient Name: ESTER MACIAS MRN: [id number] date: 1995 Sex: F Assigned Patient Location: [facility] Current Patient Location: [facility] Accession/Order Number: [id number] Exam Date: 05/26/2023 09:17 Report Date: 05/26/2023 [...] Normal interval growth Electronically authenticated by: DUDLEY DAVIS Date: 05/26/2023 09:49 Dictated By: Dudley Davis M.D. Signed By: 05/26/2352 DD/ 8 TD/TT: Security Team Lead: PAL HealthcareRadiology Study observation (narrative)NOM HealthcareUS OB GROWTHOrdered By: Radiologist Radiology on 71-11-0598X[facility] Work Phone: Laboratory - Microbiology and Antimicrobial susceptibilityOrdered By: Teresa Franky on 85-04-0066NTXM-CoV-2 (COVID-19) RNA SHIRIN+probe Ql (Unsp spec)Premier HealthUrinalysis macro (dipstick) panel (U)on 51-53-1930Bkbuogybk, UANegativeNegative - 4(70) +++ mg/dL NOMS HealthcareBlood, UANegativeNegative - 50 Jayson/mcLNOMS HealthcareClarity, UA ClearNOMS HealthcareColor, UAYellowNOMS HealthcareGlucose, UANegativeNegative - 2000(110) ++++ mg/dLNOMS HealthcareInterpretation and review of laboratory resultsAbnormalNOMS HealthcareKetones, UAPositiveNegative - 160(16) ++++ mg/dL NOMS HealthcareComment on above:traceLeukocytes, UATraceNegative - 500+++ Lolita/mcLNOMS HealthcareNitrite, UANegativeNegative - PositiveNOMS HealthcarepH, UA6.05 - 9NOMS HealthcareProtein, UANegativeNegative - 2000(20) ++++ mg/dLNOMS HealthcareSpec Grav, UA1.0301 - 1.03NOMS HealthcareUrobilinogen, UA0.20.2 - 12 mg/dLNOMS HealthcareNOMS HealthcareNo Panel InformationOrdered By: Radiologist Radiology on 12-27-9299[facility] Work Phone: No Panel Informationon 79-90-6595Rykxirlwv Study observation (narrative)NOMS HealthcareUS OB ANATOMYon 96-68-5812[place] [address] Ultrasound Report Signed Patient: ESTER MACIAS MR#: [id number] : 1995 Acct:[id number] Age/Sex: 27 / F ADM Date: 03/31/23 Loc: US Attending Dr: Ricardo Rodriguez D.O. Ordering Physician: Ricardo Rodriguez D.O. Date of Service: 03/31/23 Procedure(s): US OB anatomy Accession Number(s): [id number] cc: Ricardo Rodriguez D.O.; Iron Avila M.D. [place] [id number] Patient Name: ESTER MACIAS MRN: [facility]:[id number] date: 1995 Sex: F Assigned Patient Location: US Current Patient Location: Accession/Order Number: [id number] Exam Date: 03/31/2023 19:37 Report Date: 04/01/2023 [...] Lateral ventricles, cerebellum, posterior fossa, nose, lips, orbits, four-chamber heart, RVOT, LVOT, diaphragm, stomach, kidneys, abdominal cord insertion, bladder, umbilical arteries, three-vessel cord, [...] December 26, 2006. Electronically authenticated by: DUDLEY DAVIS Date: 04/01/2023 07:16 Dictated By: Dudley Davis M.D. Signed By: 04/01/2319 DD/ 5 TD/TT: Security Team Lead:MILESadiology, Radiologist, - 04/01/2023 [place] [address] Ultrasound Report Signed Patient: ESTER MACIAS MR#: [id number] : 1995 Acct:[id number] Age/Sex: 27 / F ADM Date: 03/31/23 Loc: US Attending Dr: Ricardo Rodriguez D.O. Ordering Physician: Ricardo Rodriguez D.O. Date of Service: 03/31/23 Procedure(s): US OB anatomy Accession Number(s): [id number] cc: Ricardo Rodriguez D.O.; Iron Avila M.D. The [place] [phone] Patient Name: ESTER MACIAS MRN: [facility]:[id number] date: 1995 Sex: F Assigned Patient Location: US Current Patient Location: Accession/Order Number: [id number] Exam Date: 03/31/2023 19:37 Report Date: 04/01/2023 [...] Lateral ventricles, cerebellum, posterior fossa, nose, lips, orbits, four-chamber heart, RVOT, LVOT, diaphragm, stomach, kidneys, abdominal cord insertion, bladder, umbilical arteries, three-vessel cord, [...] December 26, 2006. Electronically authenticated by: DUDLEY DAVIS Date: 04/01/2023 07:16 Dictated By: Dudley Davis M.D. Signed By: 04/01/23718 DD/ 5 TD/TT: Security Team Lead: PAL Christian OB TRANSVAGINALon 05-62-8325[place] [address] Ultrasound Report Signed Patient: ESTER MACIAS MR#: [id number] : 1995 Acct:[id number] Age/Sex: 27 / F ADM Date: 03/31/23 Loc: US Attending Dr: Ricardo Rodriguez D.O. Ordering Physician: Ricardo Rodriguez D.O. Date of Service: 03/31/23 Procedure(s): US OB transvaginal Accession Number(s): [id number] cc: Ricardo Rodriguez D.O.; Iron Avila M.D. [place] [id number] Patient Name: ESTER MACIAS MRN: [id number] date: 1995 Sex: F Assigned Patient Location: US Current Patient Location: Accession/Order Number: [id number] Exam Date: 03/31/2023 19:37 Report Date: 04/01/2023 07:16 At the request of: RICARDO RODRIGUEZ Procedure: US OB transvaginal EXAMINATION: US OB [...] Lateral ventricles, cerebellum, posterior fossa, nose, lips, orbits, four-chamber heart, RVOT, LVOT, diaphragm, stomach, kidneys, abdominal cord insertion, bladder, umbilical arteries, three-vessel cord, [...] December 26, 2006. Electronically authenticated by: DUDLEY DAVIS Date: 04/01/2023 07:16 Dictated By: Dudley Davis M.D. Signed By: 04/01/23 0719 DD/ 0716 TD/TT: Security Team Lead:TBHRadiology, Radiologist, MD - 06/01/2023 [place] [address] Ultrasound Report Signed Patient: ESTER MACIAS MR#: [id number] : 1995 Acct:[id number] Age/Sex: 27 / F ADM Date: 03/31/23 Loc: US Attending Dr: Ricardo Rodriguez D.O. Ordering Physician: Ricardo Rodriguez D.O. Date of Service: 03/31/23 Procedure(s): US OB transvaginal Accession Number(s): [id number] cc: Ricardo Rodriguez D.O.; Iron Avila M.D. [address] [address] Patient Name: ESTER MACIAS MRN: [id number] date: 1995 Sex: F Assigned Patient Location: US Current Patient Location: Accession/Order Number: [id number] Exam Date: 03/31/2023 19:37 Report Date: 04/01/2023 07:16 At the request of: RICARDO RODRIGUEZ Procedure: US OB transvaginal EXAMINATION: US OB [...] Lateral ventricles, cerebellum, posterior fossa, nose, lips, orbits, four-chamber heart, RVOT, LVOT, diaphragm, stomach, kidneys, abdominal cord insertion, bladder, umbilical arteries, three-vessel cord, [...] December 26, 2006. Electronically authenticated by: DUDLEY DAVIS Date: 04/01/2023 07:16 Dictated By: Dudley Davis M.D. Signed By: 04/01/23718 DD/ 5 TD/TT: Security Team Lead: PAL [facility] AUTO DIFFon 67-80-0828WZFF #0.0 103/ulNormal0.0-0.1The [facility] CenterComment on above:Performed By: #### RF #### [facility] [address] [place] [address] Dr. Venkat SloanBasophils/100 WBC (Bld)0.5 %Normal0.2-2.0The [facility] Comment on above:Performed By: #### RF #### [facility] [address] [place] [address] Dr. Venkat Willson #0.1 103/ulNormal0.0-0.7The [facility] Medical CenterComment on above: Performed By: #### RF #### [facility] [address] [place] [address] [address] Venkat Lewosinophils/100 WBC (Bld)1.7 %Normal0.9-7.0The [facility] Comment on above:Performed By: #### RF #### [facility] [address] [place] [address] Dr. Venkat Lewrythrocyte distribution width (RBC) [Ratio]12.7 %Xfyxdv67.0-15.0 The [facility] CenterComment on above:Performed By: #### RF #### [facility] [address] [place] [address] Dr. Venkat SloanHematocrit (Bld) [Volume fraction]40.4 %Pqxeez57.0-48.0The [facility] CenterComment on above:Performed By: #### RF #### [facility] [address] [place] [address] Dr. Venkat SloanHemoglobin (Bld) [Mass/Vol]13.1 g/aEGgzxer31.0-16.0The [facility] CenterComment on above:Performed By: #### RF #### [facility] [address] [place] [address] Dr. Venkat Monson #0.02 10e3/ulNormal0.00-0.03The [facility] on above:Performed By: #### RF #### [facility] [address] [place] [address] Dr. Venkat Monson %0.3 %Normal0.0-0.5The [facility] CenterCombar[facility] on above: Performed By: #### RF #### [facility] [address] [place] [address] Dr. Venkat [facility]CR[facility] #2.0 103/ulNormal1.2-3.8The [facility] CenterCombar[facility] on above:Performed By: #### RF #### [facility] [address] [place] [address] Dr. Venkat Plazahocytes/100 WBC (Bld)26.2 %Bvjjsz02.5-60.0The [facility] on above:Performed By: #### RF #### [facility] [address] [place] [address] Dr. Venkat SantosUAL DIFF REQNONormalThe [facility] on above: Performed By: #### RF #### [facility] [address] [place] [address] Dr. Venkat Kearns (RBC) [Entitic mass]28.4 qzQxaujl35.7-34.0The [facility] on above:Performed By: #### RF #### [facility] [address] [place] [address] Dr. Venkat Kearns (RBC) [Mass/Vol]32.4 g/nMMeskve35.9-35.2The [facility] on above:Performed By: #### RF #### [facility] [address] [place] [address] Dr. Venkat Kearns (RBC) [Entitic vol]87.4 jXMvlfud13.0-99.0The [facility] on above:Performed By: #### RF #### [facility] [address] [place] [address] Dr. Venkat Marte #0.7 103/ulNormal0.3-0.8The [facility] CenterComment on above:Performed By: #### RF #### [facility] [address] [place] [address] Dr. Venkat Desaiocytes/100 WBC (Bld)8.8 %Normal1.7-12.0The [facility] Comment on above:Performed By: #### RF #### [facility] [address] [place] [address] Dr. Venkat Lopez #4.8 103/ulNormal1.4-6.5The [facility] CenterComment on above:Performed By: #### RF #### [facility] [address] [place] [address] Dr. Venkat Zhengutrophils/100 WBC (Bld)62.5 %Cxwoyq25.0-75.0The [facility] CenterComment on above:Performed By: #### RF #### [facility] [address] [place] [address] Dr. Venkat Kellylet mean volume (Bld) [Entitic vol]8.5 fLCritically low 9.5-13.5The [facility] CenterComment on above:Performed By: #### RF #### [facility] [address] [place] [address] Dr. Venkat SloanPLT331 103/caBkkxnr664-682Oka [facility] CenterComment on above: Performed By: #### RF #### [facility] [address] [place] [address] Dr. Venkat SloanRBC4.62 106/ulNormal4.20-5.40The [facility] CenterComment on above:Performed By: #### RF #### [facility] [address] [place] [address] Dr. Venkat SloanWBC7.7 103/ulNormal4.0-11.0The [facility] Medical CenterComment on above: Performed By: #### RF #### [facility] [address] [place] [address] Dr. Venkat Jaeger QUANT HCGon [id number] QUANT<1NMartins Ferry Hospital Comment on above:Performed By: #### PREGQNT #### [facility] [address] [place] [address] Dr. Venkat MONTESChildren's Hospital for RehabilitationComment on above: Result Comment: 5-50 0.2-1 WEEK 50-500 1-2 WEEKS 100-5,000 2-3 WEEKS 500-10,000 3-4 WEEKS 1,000-50,000 4-5 WEEKS 10,000-100,000 5-6 WEEKS 15,000-200,000 6-8 WEEKS 10,000-100,000 2-3 MONTHSPerformed By: #### PREGQNT #### [facility] [address] [place] [address] Dr. Venkat SloanPROGESTERONEon 25-07-5114Muozrglereae3.7 ng/mLNMartins Ferry HospitalComment on above:Result Comment: Follicular phase 0.1 - 0.9 Luteal phase 1.8 - 23.9 Ovulation phase 0.1 - 12.0 First trimester 11.0 - 44.3 Second trimester 25.4 - 83.3 Third trimester 58.7 - 214.0 Postmenopausal 0.0 - 0.1Performed By: #### TSH #### [facility] [address] [place] [address] Dr. Venkat Jaeger QUANT HCGon [id number] QUANT1 mIU/mLNMartins Ferry HospitalComment on above:Performed By: #### PREGQNT #### [facility] [address] [place] [address] Dr. Venkat Madrid [facility] HospitalComment on above: Result Comment: 5-50 0.2-1 WEEK 50-500 1-2 WEEKS 100-5,000 2-3 WEEKS 500-10,000 3-4 WEEKS 1,000-50,000 4-5 WEEKS 10,000-100,000 5-6 WEEKS 15,000-200,000 6-8 WEEKS 10,000-100,000 2-3 MONTHSPerformed By: #### PREGQNT #### [facility] [address] [place] [address] Dr. Venkat SloanPROGESTERONEon 73-04-5640Msyxpcyyfqjb26.4 ng/mLNormalSelect Medical Specialty Hospital - Columbus SouthComment on above:Result Comment: Follicular phase 0.1 - 0.9 Luteal phase 1.8 - 23.9 Ovulation phase 0.1 - 12.0 First trimester 11.0 - 44.3 Second trimester 25.4 - 83.3 Third trimester 58.7 - 214.0 Postmenopausal 0.0 - 0.1Performed By: #### INFLUAB #### [facility] [address] [place] [address] Dr. Venkat SloanMRI BRAIN WO W CONon [id number] BRAIN WO W CONEXAMINATION: MRI BRAIN WO [...] Electronically authenticated by: LAM MACHUCA Date: 2022-05-04 08:42[facility] HospitalPREG QUANT HCGon [id number] QUANT<1NormalSelect Medical Specialty Hospital - [facility] SouthComment on above:Performed By: #### RF #### [facility] [address] [place] [address] Dr. Venkat SloanHCG RANGESEE BELOWOhioHealth Berger HospitalComment on above: Result Comment: 5-50 0.2-1 WEEK 50-500 1-2 WEEKS 100-5,000 2-3 WEEKS 500-10,000 3-4 WEEKS 1,000-50,000 4-5 WEEKS 10,000-100,000 5-6 WEEKS 15,000-200,000 6-8 WEEKS 10,000-100,000 2-3 MONTHSPerformed By: #### RF #### [facility] [address] [place] [address] Dr. Venkat SloanXR HYSTEROSALPINGOGRAMon [id number] HYSTEROSALPINGOGRAM EXAMINATION: XR HYSTEROSALPINGOGRAM HISTORY: Noninflammatory disorder [...] Electronically authenticated by: LAM MACHUCA Date: 2022-05-04 16:09[facility] HospitalPROGESTERONEon 60-86-8750Hjpomhwniljr5.4 ng/mLNormalSelect Medical Specialty Hospital - [facility] SouthComment on above:Result Comment: Follicular phase 0.1 - 0.9 Luteal phase 1.8 - 23.9 Ovulation phase 0.1 - 12.0 First trimester 11.0 - 44.3 Second trimester 25.4 - 83.3 Third trimester 58.7 - 214.0 Postmenopausal 0.0 - 0.1Performed By: #### INFLUAB #### [facility] [address] [place] [address] Dr. Venkat SloanCULTURE SPUTUMon [id number] SPUTUMCulture Observations: NORMAL RESPIRATORY NATALEE.NormalSelect Medical Specialty Hospital - Columbus SouthComment on above:Performed By: #### RF #### [facility] [address] [place] [address] Dr. Venkat Maza GRAM STAINon 65-02-0633LHDZMVGCDmwdmiNowTuscarawas Hospital on above:Performed By: #### RF #### [facility] [address] [place] [address] Dr. Venkat BarnesPHTHEROIDSOhioHealth Berger HospitalComment on above:Performed By: #### RF #### [facility] [address] [place] [address] Dr. Venkat RiderLIALS<25Ohio[facility] Berger HospitalComment on above: Performed By: #### RF #### [facility] [address] [place] [address] Dr. Venkat SaucedaNGAL ELEMENTSOhioHealth Berger HospitalComment on above: Performed By: #### RF #### [facility] [address] [place] [address] Dr. Venkat Sena NEG BACILLIRARENMartins Ferry HospitalComment on above: Performed By: #### RF #### [facility] [address] [place] [address] Dr. Venkat Sena NEG DIPPLOCOCCIOhioHealth Berger HospitalCombaraga county memorial hospital on above: Performed By: #### RF #### [facility] [address] [place] [address] Dr. Venkat Sena POS BACILLIOhioHealth Berger HospitalComment on above: Performed By: #### RF #### [facility] [address] [place] [address] Dr. Venkat Sena POSITIVE COCCIRARENMartins Ferry HospitalCombaraga county memorial hospital on above:Performed By: #### RF #### [facility] [address] [place] [address] Dr. Venkat Brandon (Bld) [#/Vol]10*3/[facility] on above:Performed By: #### RF #### [facility] [address] [place] [address] Dr. Venkat Calderond-19 PCR (CVDTBH)on [id number]-CoV-2 (COVID-19) RNA SHIRIN+probe Ql (Unsp spec)Not detectedNormalNOT DETECTEDThe [facility] Comment on above:Result Comment: This test is not yet approved or cleared by the [place] FDA. When there are no FDA-approved or cleared tests available, and other criteria are met, FDA can make tests available under an emergency access mechanism called an Emergency Use Authorization (EUA). The EUA for this test is supported by the Banana Handler of Health and Human Service's (HHS's) declaration [...] consistent with SARS-CoV-2.Performed By: #### PREGQNT #### [facility] [address] [place] [address] Dr. Venkat Mixon AND B AGon [id number] [facility] on above:Result Comment: Negative for Flu A protein angiten. Infection due to Flu A cannot be ruled out. FluA angiten in the sample may be below the detection limit of the test.Performed By: #### INFLUAB #### [facility] [address] [place] [address] Dr. Venkat SloanINFLUBNEGHSMANISH [facility] on above: Result Comment: Negative for Flu B protein antigen. Infection due to Flu B cannot be ruled out. FluB antigen in the sample may be below the detection limit of the test.Performed By: #### INFLUAB #### [facility] [address] [place] [address] Dr. Venkat Mixon AGNegativeNormalNEGATIVE SEE COMMENTThe [facility] on above:Performed By: #### INFLUAB #### [facility] [address] [address] [address] Venkat Burton AGNegativeNormalNEGATIVE SEE COMMENTThe [facility] Medical CenterComment on above:Performed By: #### INFLUAB #### [facility] [address] [id number] [address] Venkat SloanXR CHEST 2 Von [id number] CHEST 2 VEXAM: XR CHEST 2 V HISTORY: . Acute bronchitis . COMPARISON: 03/10/2021 TECHNIQUE: Frontal and lateral chest FINDINGS: Heart and vascularity are unremarkable. Lungs are expanded and free of focal infiltrates. No acute bony abnormality is appreciated. IMPRESSION: No acute heart or lung disease identified. Electronically authenticated by: DUDLEY LANE Date: 2022-03-24 12:33[facility] Berger HospitalCovid-19 PCR (CVDTBH)on [id number]-CoV-2 (COVID-19) RNA SHIRIN+probe Ql (Unsp spec)Not detectedNormalNOT DETECTEDThe [facility] Comment on above:Result Comment: When [...] for this test is supported by the Banana Handler of Health and Human Service's declaration that [...] longer be used).Performed By: #### RF #### [facility] [address] [place], [place] [address] Dr. Venkat LEE [facility] 22-29-1021ZWMNRDIGEMTHM BELOWOhioHealth Berger HospitalComment on above:Result Comment: Negative for Flu A protein angiten. Infection due to Flu A cannot be ruled out. FluA angiten in the sample may be below the detection limit of the test.Performed By: #### INFLUAB #### [facility] [address] [place] [address] Dr. Venkat QuachUBNEGHSEE BELOWOhioHealth Berger HospitalComment on above: Result Comment: Negative for Flu B protein antigen. Infection due to Flu B cannot be ruled out. FluB antigen in the sample may be below the detection limit of the test.Performed By: #### INFLUAB #### [facility] [address] [place] [address] Dr. Venkat Mixon AGNegativeNormalNEGATIVE SEE COMMENTThe [facility] Medical CenterComment on above:Performed By: #### INFLUAB #### [facility] [address] [place] [address] Dr. Venkat Burton AGNegativeNormalNEGATIVE SEE COMMENTThe [facility] CenterComment on above:Performed By: #### INFLUAB #### [facility] [address] [place] [address] Dr. Venkat SloanINTERNAL CONTROLSWithin Normal LimitsNormalWithin Normal Limits The [facility] CenterComment on above:Performed By: #### INFLUAB #### [facility] [address] [place] [address] Dr. Venkat SloanComichelled-19 PCR (CVDSHRINERS CHILDREN'S)on [id number]-CoV-2 (COVID-19) RNA SHIRIN+probe Ql (Unsp spec)Not detectedNormalNOT DETECTEDThe [facility] Comment on above:Result Comment: When [...] for this test is supported by the Arma of Health and Human Service's declaration that [...] longer be used).Performed By: #### INFLUAB #### [facility] [address] [place] [address] Dr. Venkat Mixon AND B AGon [id number] Health System Selby General Hospitalment on above:Result Comment: Negative for Flu A protein angiten. Infection due to Flu A cannot be ruled out. FluA angiten in the sample may be below the detection limit of the test.Performed By: #### INFLUAB #### [address] [address] Dr[address] Venkat QuachUBNEGBIB [facility] HospitalCombaraga county memorial hospital on above: Result Comment: Negative for Flu B protein antigen. Infection due to Flu B cannot be ruled out. FluB antigen in the sample may be below the detection limit of the test.Performed By: #### INFLUAB #### [facility] [address] [place] [address] Dr. Venkat Mixon AGNegativeNormalNEGATIVE SEE COMMENTThe [facility] CenterCombaraga county memorial hospital on above:Performed By: #### INFLUAB #### [facility] [address] [place] [address] Dr. Venkat Burton AGNegativeNormalNEGATIVE SEE COMMENTThe [facility] on above:Performed By: #### INFLUAB #### [facility] [address] [place] [address] Dr. Venkat SloanINTERNAL CONTROLSWithin Normal LimitsNormalWithin Normal Limits The [facility] Miamisburgment on above:Performed By: #### INFLUAB #### [facility] [address] [place] [address] Dr. Venkat SloanPROGESTERONEon 66-83-6427Xtaxrytblzbq2.3 ng/mLNormalThe [facility]per HospitalComment on above:Result Comment: Follicular phase 0.1 - 0.9 Luteal phase 1.8 - 23.9 Ovulation phase 0.1 - 12.0 First trimester 11.0 - 44.3 Second trimester 25.4 - 83.3 Third trimester 58.7 - 214.0 Postmenopausal 0.0 - 0.1Performed By: #### RF #### [facility] [address] [place] [address] Dr. Venkat Jones STIMULATIONon 68-70-0648Dowtax Bhuawmgw31 ng/nJAbcewx31-020 The [facility] CenterComment on above:Performed By: #### RF #### [facility] [address] [place] [address] Dr. Venkat Basilio Xwleyvpmfb50 ng/dLNormalNot Estab.[facility] Comment on above:Performed By: #### RF #### [facility] [address] [place] [address] Dr. Venkat Ty-19 PCR ([facility])on 41-20-0662XRTR-CoV-2 (COVID-19) RNA SHIRIN+probe Ql (Unsp spec)Not detectedNormalNOT DETECTEDThe [facility] Comment on above:Result Comment: This test is not yet approved or cleared by the [place] FDA. When there are no FDA-approved or cleared tests available, and other criteria are met, FDA can make tests available under an emergency access mechanism called an Emergency Use Authorization (EUA). The EUA for this test is supported by the Banana Handler of Health and Human Service's (HHS's) declaration [...] consistent with SARS-CoV-2.Performed By: #### INFLUAB #### [facility] [address] [place] [address] Dr. Venkat Mixon AND B AGon [id number] Medical Specialty Hospital - [place] on above:Result Comment: Negative for Flu A protein angiten. Infection due to Flu A cannot be ruled out. FluA angiten in the sample may be below the detection limit of the test.Performed By: #### PREGQNT #### [facility] [address] [place] [address] Dr. Venkat QuachUBNEGHSClermont County Hospital on above: Result Comment: Negative for Flu B protein antigen. Infection due to Flu B cannot be ruled out. FluB antigen in the sample may be below the detection limit of the test.Performed By: #### PREGQNT #### [facility] [address] [place] [address] Dr. Venkat Mixon AGNegativeNormalNEGATIVE SEE COMMENTThe [facility] on above:Performed By: #### PREGQNT #### [facility] [address] [place] [address] Dr. Venkat Burton AGNegativeNormalNEGATIVE SEE COMMENTThe [facility] on above:Performed By: #### PREGQNT #### [facility] [address] [place] [address] Dr. Venkat SloanINTERNAL CONTROLSWithin Normal LimitsNormalWithin Normal Limits The [facility] on above:Performed By: #### PREGQNT #### [facility] [address] [place] [address] Dr. Venkat Diehl SERUMon 68-78-5645Njgrwepmvluatfnhzltogi (DHEA)82 ng/dL Gzfrgf76-413Srs [facility] on above:Result Comment: Age 1 - 5 years 0 - 67 6 - 7 years 0 - 110 8 - 10 years 0 - 185 11 - 12 years 0 - 201 13 - 14 years 0 - 318 15 - 16 years 39 - 481 17 - 19 years 40 - 491 >19 years 31 - 701Performed By: #### TSH #### [facility] [address] [place] [address] Dr. Venkat SloanDHEA-SULFATEon 51-31-2552SRDA-Xtdhixh03.0 ug/dLCritically low 84.8-378.0[facility] SouthComment on above:Performed By: #### RF #### [facility] [address] [place] [address] Dr. Venkat SloanFSHon 11-35-6093TWW2.2 mIU/mLNormalSelect Medical Specialty Hospital - [facility] SouthComment on above:Result Comment: Adult Female: Follicular phase 3.5 - 12.5 Ovulation phase 4.7 - 21.5 Luteal phase 1.7 - 7.7 Postmenopausal 25.8 - 134.8Performed By: #### LBCFSH #### [facility] [address] [place] [address] Dr. Venkat SloanLUTEINIZING HORMONE (LH)on 52-37-0815DA3.1 mIU/mLNormalThe [facility] Medical CenterComment on above:Result Comment: Adult Female: Follicular phase 2.4 - 12.6 Ovulation phase 14.0 - 95.6 Luteal phase 1.0 - 11.4 Postmenopausal 7.7 - 58.5Performed By: #### INFLUAB #### [facility] [address] [place] [address] Dr. Venkat SloanPROLACTINon 44-99-0333Dhfgjscfo1.0 ng/mLNormal4.8-23.3The [facility] CenterComment on above:Performed By: #### PROLAC #### [facility] [address] [place] [address] Dr. Venkat SloanCBC AUTO DIFFon 13-15-4500ZMFD #0.0 103/ulNormal0.0-0.1The [facility] CenterComment on above:Performed By: #### TSH #### [facility] [address] [place] [address] Dr. Venkat SloanBasophils/100 WBC (Bld)0.4 %Normal0.2-2.0[facility] Comment on above:Performed By: #### TSH #### [facility] [address] [place] [address] Dr. Venkat Willson #0.1 103/ulNormal0.0-0.7The [facility] CenterComment on above: Performed By: #### TSH #### [facility] [address] [place] [address] Dr. Venkat Lewosinophils/100 WBC (Bld)1.2 %Normal0.9-7.0The [facility] Comment on above:Performed By: #### TSH #### [facility] [address] [place] [address] Dr. Venkat Lewrythrocyte distribution width (RBC) [Ratio]12.7 %Fdipxp59.0-15.0 The [facility] CenterComment on above:Performed By: #### TSH #### [facility] [address] [place] [address] Dr. Venkat SloanHematocrit (Bld) [Volume fraction]41.1 %Qvouqz68.0-48.0The [facility] CenterComment on above:Performed By: #### TSH #### [facility] [address] [place] [address] Dr. Venkat SloanHemoglobin (Bld) [Mass/Vol]13.1 g/dJItbmhk91.0-16.0The [facility] CenterComment on above:Performed By: #### TSH #### [facility] [address] [place] [address] Dr. Venkat Monson #0.03 10e3/ulNormal0.00-0.03The [facility] Medical CenterComment on above:Performed By: #### TSH #### [facility] [address] [place] [address] Dr. Venkat Monson %0.3 %Normal0.0-0.5The [facility] CenterComment on above: Performed By: #### TSH #### [facility] [address] [place] [address] Dr. Venkat PlazaH #1.6 103/ulNormal1.2-3.8The [facility] CenterComment on above:Performed By: #### TSH #### [facility] [address] [address] [address] Venkat Perezmphocytes/100 WBC (Bld)15.0 %Critically low20.5-60.0The [facility] CenterComment on above:Performed By: #### TSH #### [facility] [address] [place] [address] Dr. Venkat Rodriguez DIFF REQNONormalThe [facility] Medical CenterComment on above: Performed By: #### TSH #### [facility] [address] [place] [address] Dr. Venkat Kearns (RBC) [Entitic mass]28.5 trZlekge37.7-34.0The [facility] CenterComment on above:Performed By: #### TSH #### [facility] [address] [place] [address] Dr. Venkat Kearns (RBC) [Mass/Vol]31.9 g/jWZfazsx33.9-35.2The [facility] CenterComment on above:Performed By: #### TSH #### [facility] [address] [place] [address] Dr. Venkat Brennan (RBC) [Entitic vol]89.3 lTFvmlob42.0-99.0The [facility] CenterComment on above:Performed By: #### TSH #### [facility] [address] [place] [address] Dr. Venkat Marte #0.9 103/ulCritically high0.3-0.8ThWright-Patterson Medical Center Comment on above:Performed By: #### TSH #### [facility] [address] [place] [address] Dr. Venkat Desaiocytes/100 WBC (Bld)8.8 %Normal1.7-12.0[facility] Comment on above:Performed By: #### TSH #### [facility] [address] [place] [address] Dr. Venkat Lopez #7.9 103/ulCritically high1.4-6.5The [facility] Comment on above:Performed By: #### TSH #### [facility] [address] [place] [address] Dr. Venkat Zhengutrophils/100 WBC (Bld)74.3 %Bdilqp22.0-75.0The [facility] CenterComment on above:Performed By: #### TSH #### [facility] [address] [place] [address] Dr. Venkat SloanPlatelet mean volume (Bld) [Entitic vol]9.2 fLCritically low 9.5-13.5The [facility] CenterComment on above:Performed By: #### TSH #### [facility] [address] [place] [address] Dr. Venkat SloanPLT300 103/poExjuei604-710Wpe [facility] CenterComment on above: Performed By: #### TSH #### [facility] [address] [place] [address] Dr. Venkat SloanRBC4.60 106/ulNormal4.20-5.40The [facility] CenterComment on above:Performed By: #### TSH #### [facility] [address] [place] [address] Dr. Venkat SloanWBC10.7 103/ulNormal4.0-11.0The [facility] CenterComment on above:Performed By: #### TSH #### [facility] [address] [place] [address] Dr. Venkat SloanGLYCOHEMOGLOBIN A1Con 71-01-4268SNE RECOMMENDATIONSEE BELOWNormal The [facility] CenterComment on above:Result Comment: ADA RECOMMENDED LIMIT 4.0 - 6.0 ADA THERAPEUTIC TARGET < 7.0 ACTION SUGGESTED > 7.0Performed By: #### PREGQNT #### [facility] [address] [place] [address] Dr. Venkat SloanGlucose [Mass/Vol]100 mg/dLNormalThWright-Patterson Medical CenterComment on above:Performed By: #### PREGQNT #### [facility] [address] [place] [address] Dr. Venkat SloanHbA1c (Bld) [Mass fraction]5.1 %Normal4.5-6.2The [facility] CenterComment on above:Performed By: #### PREGQNT #### [facility] [address] [place] [address] Dr. Venkat Payne 57-68-2070PJS3.098 uIU/mLNormal0.358-3.740The [facility] CenterComment on above:Performed By: #### TSH #### [facility] [address] [place] [address] Dr. Venkat SloanCovid-19 PCR (CVDSHRINERS CHILDREN'S)on 45-94-1591DNGA-CoV-2 (COVID-19) RNA SHIRIN+probe Ql (Unsp spec)Not detectedNormalNOT DETECTEDSelect Medical [facility] Comment on above:Result Comment: This test is not yet approved or cleared by the [place] FDA. When there are no FDA-approved or cleared tests available, and other criteria are met, FDA can make tests available under an emergency access mechanism called an Emergency Use Authorization (EUA). The EUA for this test is supported by the Banana Handler of Health and Human Service's (HHS's) declaration [...] consistent with SARS-CoV-2.Performed By: #### INFLUAB #### [facility] [address] [place] [address] Dr. Venkta SloanPRERj QUANT HCGon 51-60-6506FUU QUANT<1NormalThe [facility] Comment on above:Performed By: #### PREGQNT #### [facility] [address] [place] [address] Dr. Venkat Madrid [facility]PITALNoSt. Mary's Medical [facility], Ironton CampusComment on above: Result Comment: 5-50 0.2-1 WEEK 50-500 1-2 WEEKS 100-5,000 2-3 WEEKS 500-10,000 3-4 WEEKS 1,000-50,000 4-5 WEEKS 10,000-100,000 5-6 WEEKS 15,000-200,000 6-8 WEEKS 10,000-100,000 2-3 MONTHSPerformed By: #### PREGQNT #### [facility] [address] [place] [address] Dr. Venkat Madrid-BETA SUBUNIT QUANTon 01-47-8762oTE,Beta Subunit,Qnt,Serum<1 NormalThe [facility] CenterCombaraga county memorial hospital on above:Result Comment: Female (Non- ) 0 - 5 (Postmenopausal) 0 - 8 . Female () Weeks of Gestation 3 6 - 71 4 10 - 750 5 217 - 7338 6 158 - 36046 7 1957 -226303 8 79791 -128043 9 31760 -207888 10 58041 -668987 12 46533 -467255 14 03978 - 01628 15 00401 - 84694 16 1723 - 77469 17 5428 - 96298 18 2733 - 34637 Aj ECLIA methodologyPerformed By: #### TSH #### [facility] [address] [place] [address] Dr. Venkat SloanANA by IFAon 33-59-5655Vjpbwgteodh Antibodies, IFANegativeNormal The [facility] CenterCombaraga county memorial hospital on above:Result Comment: Negative <1:80 Borderline 1:80 Positive >1:80 ICAP nomenclature: AC-0 For more information about Hep-2 cell patterns use ANApatterns.org, the official website for the International Consensus on Antinuclear Antibody (BRETT) Patterns (ICAP).Performed By: #### ANAIFA #### [facility] [address] [place] [address] Dr. Venkat SloanINSULINon 59-03-7870Qlenxzk16.1 uIU/mLNormal2.6-24.9The [facility] CenterComment on above:Performed By: #### TSH #### [facility] [address] [place] [address] Dr. Venkat NoyolaSTREPTOLYSIN O AB (ASO)on 37-47-2033Vdycsgrtaacablnj O Ab <20.4Pvxcxb8.0-200.0The [facility] CenterComment on above:Performed By: #### PREGQNT #### [facility] [address] [place] [address] Dr. Venkat SloanRHEUMATOID FACTORon 87-12-4172DY Latex Turbid.<10.0Normal<14.0The [facility] CenterComment on above:Performed By: #### RF #### [facility] [facility] [address] [place] [address] Dr. Venkat Combs AUTO DIFFon [id number] #0.0 103/ulNormal0.0-0.1The [facility] CenterComment on above:Performed By: #### TSH #### [facility] [address] [place] [address] Dr. Venkat SloanBasophils/100 WBC (Bld)0.3 %Normal0.2-2.0The [facility] Comment on above:Performed By: #### TSH #### [facility] [address] [place] [address] Dr. Venkat Willson #0.1 103/ulNormal0.0-0.7The [facility] CenterComment on above: Performed By: #### TSH #### [facility] [address] [place] [address] Dr. Venkat Lewosinophils/100 WBC (Bld)1.8 %Normal0.9-7.0The [facility] Comment on above:Performed By: #### TSH #### [facility] [address] [place] [address] Dr. Venkat Lewrythrocyte distribution width (RBC) [Ratio]12.9 %Qxthsx49.0-15.0 The [facility] CenterComment on above:Performed By: #### TSH #### [facility] [address] [place] [address] Dr. Yilan ChangHematocrit (Bld) [Volume fraction]39.8 %Eynqim19.0-48.0The [facility] CenterComment on above:Performed By: #### TSH #### [facility] [address] [place] [address] Dr. Venkat SloanHemoglobin (Bld) [Mass/Vol]12.7 g/wPWnepyw55.0-16.0The [facility] HospitalComment on above:Performed By: #### TSH #### [facility] [address] [place] [address] Dr. Venkat SloanIG #0.02 10e3/ulNormal0.00-0.03The [facility] CenterComment on above:Performed By: #### TSH #### [facility] [address] [place] [address] Dr. Venkat SloanIG %0.3 %Normal0.0-0.5The [facility] CenterComment on above: Performed By: #### TSH #### [facility] [address] [place] [address] Dr. Venkat Urban #1.5 103/ulNormal1.2-3.8The [facility] CenterComment on above:Performed By: #### TSH #### [facility] [address] [place] [address] Dr. Venkat Perezmphocytes/100 WBC (Bld)21.5 %Isnhes02.5-60.0The [facility] CenterComment on above:Performed By: #### TSH #### [facility] [address] [place] [address] Dr. Venkat SloanMANUAL DIFF REQNONormalThe [facility] Medical CenterComment on above: Performed By: #### TSH #### [facility] [address] [place] [address] Dr. Venkat Peng (RBC) [Entitic mass]28.5 wtGjuyvb83.7-34.0The [facility] CenterComment on above:Performed By: #### TSH #### [facility] [address] [place] [address] Dr. Venkat Kearns (RBC) [Mass/Vol]31.9 g/gHKbhqfi28.9-35.2The [facility] CenterComment on above:Performed By: #### TSH #### [facility] [address] [address] [address] Venkat KearnsV (RBC) [Entitic vol]89.2 dGSasrsf19.0-99.0The [facility] CenterComment on above:Performed By: #### TSH #### [facility] [address] [address] [address] Venkat Marte #0.5 103/ulNormal0.3-0.8The [facility] CenterComment on above:Performed By: #### TSH #### [facility] [address] [place] [address] Dr. Venkat Desaiocytes/100 WBC (Bld)7.6 %Normal1.7-12.0The [facility] Comment on above:Performed By: #### TSH #### [facility] [address] [place] [address] Dr. Venkat ZhengUT #4.9 103/ulNormal1.4-6.5The [facility] CenterComment on above:Performed By: #### TSH #### [facility] [address] [place] [address] Dr. Venkat Zhengutrophils/100 WBC (Bld)68.5 %Pzebav35.0-75.0The [facility] CenterComment on above:Performed By: #### TSH #### [facility] [address] [place] [address] Dr. Venkat Kellylet mean volume (Bld) [Entitic vol]8.8 fLCritically low 9.5-13.5The [facility] CenterComment on above:Performed By: #### TSH #### [facility] [address] [place] [address] Dr. Venkat SloanPLT297 103/icXbyqnl088-570Pwm [facility] CenterComment on above: Performed By: #### TSH #### [facility] [address] [place] [address] Dr. Venkat SloanRBC4.46 106/ulNormal4.20-5.40The [facility] CenterComment on above:Performed By: #### TSH #### [facility] [address] [place] [address] Dr. Venkat SloanWBC7.1 103/ulNormal4.0-11.0The [facility] CenterComment on above: Performed By: #### TSH #### [facility] [address] [place] [address] Dr. Venkat SloanCRMat 42-73-7860GCX [Mass/Vol]mg/LNormal<=1.0The [facility] CenterComment on above:Performed By: #### PREGQNT #### [facility] [address] [place] [address] Dr. Venkat SloanFRMANISH THYROXINE INDEX T7on 91-38-2647OBZ1.75Ktftxm9.30-4.50The [facility] CenterComment on above:Performed By: #### PREGQNT #### [facility] [address] [place] [address] Dr. Venkat SloanT3U33.0 %Nffiww14.0-39.0The [facility] on above: Performed By: #### PREGQNT #### [facility] [address] [place] [address] Dr. Venkat SloanT4 [Mass/Vol]8.20 ug/dLNormal4.80-13.90The [facility] Comment on above:Performed By: #### PREGQNT #### [facility] [address] [place] [address] Dr. Venkat SloanGLYCOHEMOGLOBIN A1Con 39-34-7110CEO RECOMMENDATIONSEE BELOWNormal The [facility] CenterCombaraga [facility] on above:Result Comment: ADA RECOMMENDED LIMIT 4.0 - 6.0 ADA THERAPEUTIC TARGET < 7.0 ACTION SUGGESTED > 7.0Performed By: #### INFLUAB #### [facility] [address] [place] [address] Dr. Yilan ChangGlucose [Mass/Vol]105 mg/dLOhioHealth Berger HospitalComment on above:Performed By: #### INFLUAB #### [facility] [address] [place] [address] Dr. Venkat SloanHbA1c (Bld) [Mass fraction]5.3 %Normal4.5-6.2The [facility] CenterComment on above:Performed By: #### INFLUAB #### [facility] [address] [place] [address] Dr. Venkat Fernandes 47-15-5922Hlvs [Mass/Vol]49.0 ug/dLCritically low 50.0-170.0The [facility] CenterComment on above:Performed By: #### PREGQNT #### [facility] [address] [place] [address] Dr. Venkat OsbornID PROFILEon 83-27-4080XLXM-HDL RATIO NORMSEE BELOWOhioHealth Berger HospitalComment on above:Result Comment: 3.3 - 4.4 LOW RISK 4.4 - 7.1 AVERAGE RISK 7.1 - 11.0 MODERATE RISK >11.0 HIGH RISKPerformed By: #### PREGQNT #### [facility] [address] [place] [address] Dr. Venkat Jensenesterol [Mass/Vol]197 mg/dLNormal<=200The [facility] Comment on above:Performed By: #### PREGQNT #### [facility] [address] [place] [address] Dr. Venkat Jensenesterol in HDL [Mass/Vol]64 mg/dLCritically jfgh34-94Ygg [facility] CenterComment on above:Performed By: #### PREGQNT #### [facility] [address] [place] [address] Dr. Venkat SloanCholesterol in LDL [Mass/Vol]123.4 mg/dLOhioHealth Berger HospitalCombaraga county memorial hospital on above:Performed By: #### PREGQNT #### [facility] [address] [place] [address] Dr. Venkat Jensenesterol.total/Cholesterol in HDL [Mass ratio]3.1 {ratio} NormalThe [facility] CenterComment on above:Performed By: #### PREGQNT #### [facility] [address] [place] [address] Dr. Venkat Krueger NORMAL> or = 60 mg/dl - LOW CARDIOVASCULAR RISK <40 mg/dl - HIGH CARDIOVASCULAR RISKOhioHealth Berger HospitalComment on above:Performed By: #### PREGQNT #### [facility] [address] [place] [address] Dr. Venkat SloanLDL CALC NORMALSEE BELOWOhioHealth Berger HospitalComment on above:Result Comment: <100 mg/dl OPTIMAL 100 - 129 mg/dl NEAR OR ABOVE OPTIMAL 130 - 159 mg/dl BORDERLINE HIGH 160 - 189 mg/dl HIGH >190 mg/dl VERY HIGH Performed By: #### PREGQNT #### [facility] [address] [place] [address] Dr. Venkat SloanTriglyceride [Mass/Vol]48 mg/dLNormal<=150The [facility] Comment on above:Performed By: #### PREGQNT #### [facility] [address] [place] [address] Dr. Venkat SloanVLDL CALC9.6 mg/dLNoSt. Mary's Medical Center, Ironton CampusComment on above: Performed By: #### PREGQNT #### [facility] [address] [place] [address] Dr. Venkat SloanPROF 14(COMP METB)on 79-63-2119Mwwffmi [Mass/Vol]4.0 g/dLNormal 3.4-5.0[facility] SouthComment on above:Performed By: #### INFLUAB #### [facility] [address] [place] [address] Dr. Venkat SloanAlbumin/Globulin [Mass ratio]1.3 {ratio}NormalThe [facility] Medical CenterComment on above:Performed By: #### INFLUAB #### [facility] [address] [place] [address] Dr. Venkat HectorP [Catalytic activity/Vol]58 U/IJjvmeu60-404Tgx [facility] CenterComment on above:Performed By: #### INFLUAB #### [facility] [address] [address] [address] Venkat HectorT [Catalytic activity/Vol]20 U/SBtkgzo91-74Mzm [facility] CenterComment on above:Performed By: #### INFLUAB #### [facility] [address] [address] [address] Venkat SloanAnion gap [Moles/Vol]10.4 mmol/LNormalThe [facility] Comment on above:Performed By: #### INFLUAB #### [facility] [address] [address] [address] Venkat SloanAST [Catalytic activity/Vol]11 U/LCritically xpd20-94Rdi [facility] CenterComment on above:Performed By: #### INFLUAB #### [facility] [address] [address] [address] Venkat SloanBilirubin [Mass/Vol]0.8 mg/dLNormal0.2-1.0The [facility] Comment on above:Performed By: #### INFLUAB #### [facility] [address] [address] [address] Venkat SloanCalcium [Mass/Vol]9.0 mg/dLNormal8.5-10.1The [facility] Comment on above:Performed By: #### INFLUAB #### [facility] [address] [address] [address] Venkat SloanChloride [Moles/Vol]106 mmol/CAuauuq23-177Xml [facility] Comment on above:Performed By: #### INFLUAB #### [facility] [address] [address] [address] Venkat SloanCO2 [Moles/Vol]27.0 mmol/ONejgsj32.0-32.0The [facility] Comment on above:Performed By: #### INFLUAB #### [facility] [address] [address] [address] Venkat SloanCreatinine [Mass/Vol]0.70 mg/dLNormal0.55-1.02The [facility] HospitalComment on above:Performed By: #### INFLUAB #### [facility] [address] [address] [address] Venkat LewGFR-AF SOLOM[place] ISLANDER>60Normal>=60The [facility] CenterComment on above:Performed By: #### INFLUAB #### [facility] [address] [address] [address] Venkat LewGFR-NON AF [place] ISLANDER>60Normal>=60The [facility] CenterComment on above:Performed By: #### INFLUAB #### [facility] [address] [address] [address] Venkat SloanGlobulin (S) [Mass/Vol]3.2 g/dLNormalThe [facility] CenterComment on above:Performed By: #### INFLUAB #### [facility] [address] [place] [address] Dr. Venkat SloanGlucose [Mass/Vol]92 mg/sZAzwuzn15-339PmkSelect Medical Specialty Hospital [facility] Comment on above:Performed By: #### INFLUAB #### [facility] [address] [place] [address] Dr. Venkat SloanPotassium [Moles/Vol]4.4 mmol/LNormal3.5-5.1[facility] Comment on above:Performed By: #### INFLUAB #### [facility] [address] [place] [address] Dr. Venkat SloanProtein [Mass/Vol]7.2 g/dLNormal6.4-8.2[facility] Comment on above:Performed By: #### INFLUAB #### [facility] [address] [place] [address] Dr. Venkat SloanSodium [Moles/Vol]139 mmol/TJuoapi783-940Fxk [facility] Comment on above:Performed By: #### INFLUAB #### [facility] [address] [address] [address] Venkat SloanUrea nitrogen [Mass/Vol]13.0 mg/dLNormal7.0-18.0The [facility] CenterComment on above:Performed By: #### INFLUAB #### [facility] [address] [place] [address] Dr. Venkat SloanUrea nitrogen/Creatinine [Mass ratio]18.6 mg/mgNoSt. Mary's Medical Center, Ironton CampusComment on above:Performed By: #### INFLUAB #### [facility] [address] [place] [address] Dr. Venkat SloanTSHon 15-70-9645MXS0.318 uIU/mLNormal0.358-3.740The [facility] CenterComment on above:Performed By: #### PREGQNT #### [facility] [address] [place] [address] Dr. Venkat SloanURIC ACID SERUMon 95-61-7385Ykjas [Mass/Vol]3.9 mg/dLNormal 2.6-6.0The [facility] CenterComment on above:Performed By: #### PREGQNT #### [facility] [address] [place] [address] Dr. Venkat SloanXR CSPINE MIN 4 VIEWSon 08-96-7880SK CSPINE MIN 4 VIEWS EXAMINATION: XR CSPINE MIN 4 VIEWS HISTORY: Cervical radiculopathy COMPARISON: No relevant comparison available. FINDINGS: BONES: Normal. No significant spondylosis, scoliosis, fracture, or visible bony lesion. DISC SPACES: Normal. No significant disc height narrowing, subluxation, or endplate abnormality. PARASPINOUS: Negative. No paraspinous abnormality is seen. OTHER: Negative. IMPRESSION: No acute disease. Electronically authenticated by: DUDLEY DAVIS Date: 2021-09-24 21:16[facility] Berger HospitalPREG QUANT HCGon [id number] QUANT<1NormalThe [facility] CenterCombaraga county memorial hospital on above:Performed By: #### INFLUAB #### [facility] [address] [place] [address] Dr. Venkat SloanHCG RANGESEE BELOWOhioHealth Berger HospitalComment on above: Result Comment: 5-50 0-1 WEEK 40-300 1-2 WEEKS 100-1,000 2-3 WEEKS 500-6,000 3-4 WEEKS 5,000-200,000 1-2 MONTHS 10,000-100,000 2-3 MONTHS 3,000-50,000 2ND TRIMESTER 1,000-50,000 3RD TRIMESTERPerformed By: #### INFLUAB #### [facility] [address] [place] [address] Dr. Venkat SloanUS PELVIS AND TRANSVAGon 51-21-2614SQ PELVIS AND TRANSVAG EXAMINATION: US PELVIS AND [...] right ovarian cyst Electronically authenticated by: DUDLEY DAVIS Date: 2021-08-17 07:01[facility] Berger HospitalCOVID Quick Testingon 83-29-9354LtvhbcQqxughxbPljds [employer] Other Vital Signs Date TimeVital SignValuePerforming SnjubqyziPmdhsudd84-66-5638 11:01-0400Body mass index (BMI) [Ratio]26.45 kg/m2Josi VILLARREAL Work Phone: [facility] HospitalQybbvddzub09-04-0643 11:01-0400Body .5 kg Josi VILLARREAL Work Phone: [facility] HospitalPoylohghyi47-84-6207 11:01-0400Diastolic blood vecsgrdc91 mm[Hg]Josi VILLARREAL Work Phone: noSac-Osage HospitalPgutbvsljv44-35-0980 11:01-0400Systolic blood kdzirzhm487 mm[Hg]Josi VILLARREAL Work Phone: [facility] HospitalEhwlybdivx11-42-9828 14:22-0400Body mass index (BMI) [Ratio]27.55 kg/w1Huzhq Jennifer DO Work Phone: [facility] HospitalLkgupgjbwh04-69-0692 14:22-0400Body xzswje65.13 kgCorey Jennifer DO Work Phone: [phone]-[facility] HospitalSrplauturf08-96-0511 14:22-0400Diastolic blood pqdryrzj55 mm[Hg]Ricardo Jennifer DO Work Phone: [phone] [place], [place] [address]Sqtfykruej70-40-3568 14:22-0400Systolic blood oxkcokjh303 mm[Hg]Ricardo Jennifer DO Work Phone: [phone] [place], [place] [address]Eemflenkxx00-74-0559 10:41-0400Body mass index (BMI) [Ratio]27.93 kg/m2Amy Genie VILLARREAL Work Phone: [phone] [place], [place] [address]Dvldmfnglv47-34-6902 10:41-0400Body fnklfu58.04 kgAmy Genie VILLARREAL Work Phone: [phone] [place], [place] [address]Giiqlakvax69-61-6337 10:41-0400Diastolic blood opqjmjqx08 mm[Hg]Josi VILLARREAL Work Phone: [phone] [place], [place] [address]Jvmwbikudr96-40-6511 10:41-0400Systolic blood jnzexowo054 mm[Hg]Josi VILLARREAL Work Phone: [phone] [place], [place] [address]Pwmncbcrip00-46-6601 12:02-0400Body mass index (BMI) [Ratio]27.78 kg/n9Uoras Jennifer DO Work Phone: [phone] [place], [place] [address]Qpdfcddbuf26-33-6286 12:02-0400Body otfvbc18.68 kgCorey Jennifer DO Work Phone: [phone] [place], [place] [address]Kfvfpjnpxu86-19-1579 12:02-0400Diastolic blood mm[Hg]Ricardo Jennifer DO Work Phone: [phone] [place], [place] [address]Zxaapntcmx69-86-9681 12:02-0400Systolic blood kwankcww346 mm[Hg]Ricardo Jennifer DO Work Phone: [facility] HospitalVatrzffxjl69-13-4455 09:27-0500Body rrjpea866.94 cmPrem[facility]02-25-2024 09:27-0500Body mass index (BMI) [Ratio]30.8 kg/c3GxbkpghoyPremier Health02-25-2024 09:27-0500Body ybzijlrisfi45.1 [degF][facility]02-25-2024 09:27-0500Body tzovdb61.04 kgPremier Health02-25-2024 09:27-0500Heart rate 78 /[facility]02-25-2024 09:27-0500Respiratory rate16 /[facility]02-25-2024 09:27-9742EuY7% (BldA) [Mass fraction]98 %[facility]02-13-2024 15:14-0500Body mass index (BMI) [Ratio]30.04 kg/w8Yspwv Jennifer DO Work Phone: [facility] HospitalKsuockaevq57-61-0329 15:14-0500Body .12 kgCorey Jennifer DO Work Phone: [facility] HospitalYzuqqpjkvm04-12-9460 15:14-0500Diastolic blood qevlajrg32 mm[Hg]Ricardo Jennifer Corengi Work Phone: [facility] HospitalIjtjsrwqba58-50-5878 15:14-0500Systolic blood fsiimvbr471 mm[Hg]Ricardo Jennifer DO Work Phone: [facility] HospitalOaulggijxi32-83-5155 18:45-0400Body jkphka957.94 cmSjoe Martinez Other [employer] Other 11-02-2021 18:45-0400Body mass index (BMI) [Ratio] 28.34 kg/y6VlkdejbxkMohini Martinez Other [employer] Other 11-02-2021 18:45-0400Body wtknjusrvdw53.4 [degF] Mohini Martinez Other noAPJeT Other 11-02-2021 18:45-0400Body bulccc63.04 kgStmarco Martinez Other [employer] [facility] Other 11-02-2021 18:45-0400Respiratory rate18 /minSjoe Martinez Other [employer] Other 11-02-2021 18:45-7311AaR8% (BldA) [Mass fraction]99 % Mohini Martinez Other [employer] Other 09-27-2021 11:45-0400Body kgkpoa626.94 cmDavid Hykes Other [employer] Other 09-27-2021 11:45-0400Body mass index (BMI) [Ratio] 28.34 kg/r6Soslv Hykes Other [employer] Other 09-27-2021 11:45-0400Body qyyjnl04.04 kgDavid Hykes Other [employer] Other Encounters Encounter DateEncounter TypeCare ProviderFacilityStart: 09-24-2024 End: 14-74-8722Dghigh Meaghan VILLARREAL Work Phone: [facility] BCP OBStart: 09-24-2024 End: 47-87-9066Wvsnsc Meaghan VILLARREAL Work Phone: [facility] BCP OBStart: 09-24-2024 End: 89-11-2813vfcnmpdlhhUNI RAMEYNot AvailableStart: 09-24-2024 End: 88-25-9592Yyhdzh follow up visit related to original pxAmy Rockford PA Work Phone: [facility] OBComment on above:Postoperative visit; S/P laparoscopy; Cystostomy status (HCC)Start: 09-13-2024 End: 61-51-7619Oksbusmso Result EncounterCorey Jennifer DO Work Phone: noms External Department UnsolicitedStart: 09-13-2024 End: 74-34-9638Xwyjlylww Result EncounterCorey Jennifer DO Work Phone: noms External Department UnsolicitedStart: 09-13-2024 End: 81-90-3732nfmlkjbsxuUsxea FazioFacility:[facility] Start: 08-28-2024 End: 66-21-1672jwohwyxxadJMLJW FAZIONot AvailableStart: 08-28-2024 End: 29-67-2669Ymmzmv outpatient visit 15 minutesCorey Jennifer DO Work Phone: noMS [facility] OBComment on above:Pre-op examination; Cyst of right ovary; Complex ovarian cyst; Pelvic painStart: 08-28-2024 End: 71-47-6398Dsavxgrczneao examination doneCorey Jennifer DO Work Phone: [facility] HealthcareStart: 08-27-2024 End: 50-35-6023Esrevvhlf Result EncounterJosi VILLARREAL Work Phone: noMS External Department UnsolicitedStart: 08-27-2024 End: 76-67-7792Cdvwdecbq Result EncounterJosi VILLARREAL Work Phone: [facility] External Department UnsolicitedStart: 08-21-2024 End: 78-85-3747Mxhhgp flowsheetJosi VILLARREAL Work Phone: [facility] OBStart: 08-21-2024 End: 24-83-1119Cdhtig flowsSandy VILLARREAL Work Phone: [facility] OBStart: 08-21-2024 End: 81-41-5246Mcwalb outpatient visit 15 minutesAmy Genie VILLARREAL Work Phone: [facility] B[facility] OBComment on above:Cyst of right ovary; Complex ovarian cystStart: 08-21-2024 End: 18-60-9607bbnwzmvoglGWH RAMEYNot AvailableStart: 08-15-2024 End: 54-06-7902zlvvgjwuhlNljlcek Nabila MarkerBet[facility] Work Phone: Start: 08-15-2024 End: 07-20-9276Tqiynqsh ReferredMelissa Marker DO Work Phone: [facility] Path Spec [facility]al[facility] HospStart: 07-19-2024 End: 11-14-3586Iwmzmu outpatient visit 15 minutesCorey Jennifer DO Work Phone: n[facility] BCP OBComment on above:Irregular periods/menstrual cycles; Pelvic pain in femaleStart: 07-19-2024 End: 82-72-1388otzextrvelSXQMX FAZIONot AvailableStart: 06-28-2024 End: 27-65-2550Kzavhsdgu Result EncounterCorey Jennifer DO Work Phone: noms External Department UnsolicitedStart: 06-28-2024 End: 33-64-6057Hvdtvndjg Result EncounterCorey Jennifer DO Work Phone: noms External Department UnsolicitedStart: 03-28-2024 End: 45-95-3340Bzsyaksju Result EncounterCorey Jennifer DO Work Phone: noms External Department UnsolicitedStart: 03-28-2024 End: 18-28-2302Ymbwdywqz Result EncounterCorey Jennifer DO Work Phone: noms External Department UnsolicitedStart: 03-01-2024 End: 29-12-4364Taufga flowsheetCorey Jennifer DO Work Phone: NOGJ BCP OBStart: 03-01-2024 End: 04-11-6425Ynhzuh flowsheetCorey Jennifer DO Work Phone: [facility] B[facility] OBStart: 03-01-2024 End: 61-17-9938Ccaovh outpatient visit 15 minutesCorey Jennifer DO Work Phone: n[facility] BCP OBComment on above:Abnormal vaginal bleeding; PCOS (polycystic ovarian syndrome)Start: 03-01-2024 End: 90-11-7361hfqqxfzjpaEBPSH FAZIONot AvailableStart: 09-26-2023 End: 21-86-7489atalkvfgngHKQRK FAZIONot AvailableStart: 08-09-2023 End: 40-28-5020Twcbdhxee Result EncounterCorey Jennifer DO Work Phone: noms External Department UnsolicitedStart: 08-09-2023 End: 37-19-5935Noioxuzqx Result EncounterCorey Jennifer DO Work Phone: NOXF External Department UnsolicitedStart: 08-02-2023 End: 83-46-6735Bqgabqbvh Result EncounterCorey Jennifer DO Work Phone: NOTE External Department UnsolicitedStart: 08-02-2023 End: 87-68-6381Pnqvzmkhg Result EncounterCorey Jennifer DO Work Phone: noms External Department UnsolicitedStart: 07-26-2023 End: 48-42-6039Sruahynhg Result EncounterCorey Jennifer DO Work Phone: noms External Department UnsolicitedStart: 07-26-2023 End: 49-44-1221Dvemdozfr Result EncounterCorey Jennifer DO Work Phone: NOYW External Department UnsolicitedStart: 07-22-2023 End: 22-95-2969Nakbaaaip Result EncounterCorey Jennifre DO Work Phone: noms External Department UnsolicitedStart: 07-22-2023 End: 45-41-2120Dbckprkmp Result EncounterCorey Jennifer DO Work Phone: noms External Department UnsolicitedStart: 07-19-2023 End: 09-41-6150Qzmoyjdij Result EncounterCorey Jennifer DO Work Phone: NOJW External Department UnsolicitedStart: 07-19-2023 End: 10-84-5195Frckfawgl Result EncounterCorey Jennifer DO Work Phone: noms External Department UnsolicitedStart: 07-12-2023 End: 74-07-5019Ldgrqdzbg Result EncounterCorey Jennifer DO Work Phone: NOBY External Department UnsolicitedStart: 07-12-2023 End: 31-18-2958Gfltlkxtm Result EncounterCorey Jennifer DO Work Phone: NOQK External Department UnsolicitedStart: 07-07-2023 End: 95-22-8188Ajszdcnxu Result EncounterCorey Jennifer DO Work Phone: NOLN External Department UnsolicitedStart: 07-07-2023 End: 81-13-8464Vvxgbtgah Result EncounterCorey Jennifer DO Work Phone: NORM External Department UnsolicitedStart: 06-28-2023 End: 20-82-2779Hvbvwsgjk Result EncounterCorey Jennifer DO Work Phone: NOHM External Department UnsolicitedStart: 06-28-2023 End: 25-77-2363Wprpbefai Result EncounterCorey Jennifer DO Work Phone: NOTM External Department UnsolicitedStart: 06-09-2023 End: 98-87-0893Djjhjudlc Result EncounterCorey Jennifer DO Work Phone: NOOY External Department UnsolicitedStart: 06-09-2023 End: 65-81-7038Dvgibqtnt Result EncounterCorey Jennifer DO Work Phone: NOEA External Department UnsolicitedStart: 05-26-2023 End: 07-91-6089Ulfxdmrcd Result EncounterCorey Jennifer DO Work Phone: NONI External Department UnsolicitedStart: 05-26-2023 End: 83-52-4501Kcuuuwwdh Result EncounterCorey Jennifer DO Work Phone: noms External Department UnsolicitedStart: 05-22-2023 End: 39-73-6344gnezbltbmoUaxcvplrk [facility] Work Phone: Start: 05-22-2023 End: 71-15-9849Nevowbt encounter procedureUnc [facility] Work Phone: Start: 05-10-2023 End: 12-53-7933Qruhnmyj flow sheetCorey Jennifer DO Work Phone: noms BCP OBComment on above:Second trimester ; Diabetes mellitus screeningStart: 04-01-2023 End: 73-48-1794Bomnuxmws Result EncounterCorey Jennifer DO Work Phone: noms External Department UnsolicitedStart: 04-01-2023 End: 24-77-8329Ritfwrquz Result EncounterCorey Jennifer DO Work Phone: noms External Department UnsolicitedStart: 07-09-2022 Encounter for other preprocedural examinationDR RICARDO JENNIFER .[facility] 07-08[facility]2022 End: 30-04-5188urzdyhcwimSC RICARDO JENNIFER .Facility:K2Uwvrr: 06-30-2022 End: 80-94-2321pvfmumerdhCO RICARDO JENNIFER .Facility:S0Ruktp: 06-30-2022 End: 92-72-9665Wkyrpkeel for other preprocedural examinationDR RICARDO JENNIFER . Facility:U6Zfmwm: 06-21-2022 End: 59-17-4586wpgkoknudaCG RICARDO JENNIFER .Facility:J9Nmrgf: 05-31-2022 End: 54-85-9730wovtojdufnBT IRON HOY .Facility:Q9Drzqs: 05-20-2022 End: 26-86-0584ujrecimxgaZW RICARDO JENNIFER .Facility:M1Ktxay: 05-04-2022 End: 78-77-6025fhebcpybcrUV RICARDO JENNIFER .Facility:S0Pjbvp: 05-04-2022 End: 58-10-2489xdwfkbnxtbPO IRON HOY .Facility:K6Redke: 04-23-2022 End: 25-86-3811hjnxdrthxyHY RICARDO JENNIFER .Facility:V0Otulh: 04-02-2022 End: 97-21-6469ecfkwheevkGO IRON HOY .Facility:H6Aocld: 04-01-2022 End: 19-08-7375gyujdnlyfnJW IRON HOY .Facility:W2Iatew: 03-24-2022 End: 20-51-6377rpbgswjareZQFFDI CRAMERcility:I0Cvfrd: 03-15-2022 End: 26-99-9686encnuwyubmDI IRON HOY .Facility:Q0Dqyqy: 03-12-2022 End: 48-85-8246dbbfwdrcifXH IRON HOY .Facility:X9Bpsju: 02-17-2022 End: 65-57-1299lwrppmivcoRK RICARDO JENNIFER .Facility:L5Gtvxt: 02-10-2022 End: 82-37-6624nidsejcgqqRK IRON HOY .Facility:X9Abogs: 02-03-2022 End: 03-08-2193bcjbaaggvkHA IRON HOY .Facility:E1Wfoyn: 20-04-6551xublpwxrfc DR RICARDO JENNIFER .Facility:D2Ttmlm: 01-13-2022 End: 64-66-7918uajskbrmnaFP RICARDO JENNIFER .Facility:B6Vveva: 01-12-2022 End: 50-23-1582ovldjdndmbIQ IRON HOY .Facility:D9Pygoi: 12-24-2021 End: 65-41-7460smxhzjuxeeVA IRON HOY .Facility:I7Khwic: 11-21-2021 End: 03-16-0149xpoqwrmbznMG RICARDO JENNIFER .Facility:F3Aufgx: 62-07-2551Fdjsiaijj for general adult medical examination without abnormal findingsDR IRON HOY . [facility] 09-26-2021 End: 86-25-1365lsmsfxssybMB IRON HOY .Facility:D1Dnbsq: 09-26-2021 End: 63-06-1352Hfdaxxupg for general adult medical examination without abnormal findingsDR IRON HOY .Facility:K5Omqwj: 09-24-2021 End: 78-86-5033lnbankgldxGP IRON AVILA .Facility:Y8Iuqoj: 08-17-2021 End: 52-50-0431tvofcausymSI RICARDO STORYO .Facility:J6Zpvxd: 08-15-2021 End: 61-46-9563zbfohupbxiWU RICARDO JENNIFER .Facility:Z5Snzzi: 01-27-2021 End: 56-19-4618sfdxcqxorbVfmiuczjn Breault Other [facility] [employer] Other Start: 81-66-2306Cwpipy outpatient visit 15 minutes Mohini MartinezFPG [facility] Care ClydeStart: 69-62-6303Wivurd outpatient new 45 minutesDavid HykesFPG Gastroenterology Procedures DateProcedureProcedure DetailPerforming ClinicianStart: 07-81-7596ROC CBC WITH AUTO DIFFCorey Jennifer DO Work Phone: Start: 03-90-4748CFQ LDHJosi VILLARREAL Work Phone: Start: 28-85-2352FZD CBC WITH AUTO DIFFCorey Jennifer DO Work Phone: Start: 17-97-8009GE PELVIS W/ TRANSVAGINALCorey Jennifer DO Work Phone: Start: 81-81-3800KI OB BPP W NON-STRESSCorey Jennifer DO Work Phone: Start: 53-91-2923WH OB BPP W NON-STRESSCorey Jennifer DO Work Phone: Start: 81-66-0268LO OB BPP W NON-STRESSCorey Jennifer DO Work Phone: Start: 07-38-0688CL OB BPP W NON-STRESSCorey Jennifer DO Work Phone: Start: 61-59-9793UH OB BPP W NON-STRESSCorey Jennifer DO Work Phone: Start: 73-96-9128YK OB BPP W NON-STRESSCorey Jennifer DO Work Phone: Start: 69-88-2181EW OB BPP W NON-STRESSCorey Jennifer DO Work Phone: Start: 28-76-9915EB OB BPP W NON-STRESSCorey Jennifer DO Work Phone: Start: 06-36-1853ZG AMNIOTIC FLUID VOLUMECorey Jennifer DO Work Phone: Start: 69-49-1823JD OB GROWTHCorey Jennifer DO Work Phone: Start: 28-54-4734MRG COVID/FLU/RSVStart: 05-10-2023 Urnls dip stick/tablet rgnt non-auto w/o micrscpCorey Jennifer DO Work Phone: Start: 93-06-8520NQ OB ANATOMYCorey Jennifer DO Work Phone: Start: 72-26-7820FT OB TRANSVAGINALCorey Jennifer DO Work Phone: Start: 44-28-8352Zneokvrvwmk observation [Identifier] in Cervix by Cyto stainCorey Jennifer DO Work Phone: Plan of Treatment DateCare ActivityDetailAuthorStart: 34-24-2778Fqgwyfnaf for malignant neoplasm of cervixNOMS HealthcareStart: 64-04-8494Jvnagxnwu vaccinationUTAH STATE HOSPITAL Healthcare Start: 09-24-2024 End: 54-87-4697Ltydjco encounter vrbfhvlid44/30/2025 10:50 AM EDT Office Visit [facility] OB [address] [place] [phone] Josi Prescott PA [address] [place] [address] [facility] BCP OBStart: 09-24-2024 End: 82-19-7849Oepfxre encounter ucugbxtol50/30/2025 8:50 AM EDT Consult [facility] OB [address] [place] [address] Ricardo Rodriguez, DO [address] [place] [address] [facility] OBStart: 08-28-2024 End: 57-33-2361Luvldtj encounter ciuybwuvg66/03/2025 2:00 PM EDT [facility] [address] [place] [address] Ricardo Rodriguez, DO [address] [place] [address] [facility] OBStart: 08-21-2024 End: 28-83-5581PUW tumor markerAFP tumor marker Lab Routine Complex ovarian cyst Expected: 08/21/2024 (Approximate), Expires: 08/21/2025NOWY HealthcareComment on above:Expected: 08/21/2024 (Approximate), Expires: 08/21/2025Start: 08-21-2024 End: 45-51-8068LX 125CA 125 Lab Routine Complex ovarian cyst Expected: 08/21/2024 (Approximate), Expires: 08/21/2025NOW[facility] HealthcareComment on above: Expected: 08/21/2024 (Approximate), Expires: 08/21/2025Start: 08-21-2024 End: 46-65-5346Ozodepoaoqvupvpt Ag [Mass/volume] in Serum or PlasmaCEA Lab Routine Complex ovarian cyst Expected: 08/21/2024 (Approximate), Expires: 08/21/2025NOW[facility] HealthcareComment on above:Expected: 08/21/2024 (Approximate), Expires: 08/21/2025Start: 08-21-2024 End: 87-53-0290FDT, tumor markerHCG, tumor marker Lab Routine Complex ovarian cyst Expected: 08/21/2024 (Approximate), Expires: 08/21/2025[facility] Comment on above:Expected: 08/21/2024 (Approximate), Expires: 08/21/2025art: 08-21-2024 End: 83-03-3988Uhgtske dehydrogenase, isoenzymesLactate dehydrogenase, isoenzymes Lab Routine Complex ovarian cyst Expected: 08/21/2024 (Approximate), Expires: 08/21/2025[facility] Work Phone: comment on above:Expected: 08/21/2024 (Approximate), Expires: 08/21/2025Start: 84-99-5225Tjnst cultureAultman Hospitaltart: 86-53-8423Iguukcuc identified in Urine by CultureUrine Culture [facility] Hospitaltart: 05-24-2024 End: 64-43-0889Gucbgoi encounter /27/2025 8:30 AM EST Office Visit [facility] [address] [place] [phone] Ricardo Rodriguez, DO [address] [place] [address] [facility] BCP OBStart: 03-01-2024 End: 24-82-2628JHB W Auto Differential panel - BloodCBC and differential Lab Routine Abnormal vaginal bleeding Expected: 03/01/2024 (Approximate), Expires: 03/01/2025NOW[facility] HealthcareComment on above:Expected: 03/01/2024 (Approximate), Expires: 03/01/2025Start: 03-01-2024 End: 96-38-3554YXYOXLZW Lab Routine Abnormal vaginal bleeding Expected: 03/01/2024, Expires: 03/01/2025NOW[facility] HealthcareComment on above:Expected: 03/01/2024, Expires: 03/01/2025Start: 03-01-2024 End: 94-75-0804ACQN-sulfateDHEA-sulfate Lab Routine Abnormal vaginal bleeding Expected: 03/01/2024 (Approximate), Expires: 03/01/2025NOW[facility] HealthcareComment on above:Expected: 03/01/2024 (Approximate), Expires: 03/01/2025Start: 03-01-2024 End: 46-59-5240Tjwjkmcj stimulating hormoneFollicle stimulating hormone Lab Routine Abnormal vaginal bleeding Expected: 03/01/2024 (Approximate), Expires: 03/01/2025[facility] HealthcareComment on above:Expected: 03/01/2024 (Approximate), Expires: 03/01/2025Start: 03-01-2024 End: 62-46-7061tIA, quantitative, pregnancyhCG, quantitative, Lab Routine Abnormal vaginal bleeding Expected: 03/01/2024 (Approximate), Expires: 03/01/2025[facility] Healthcare Work Phone: comment on above:Expected: 03/01/2024 (Approximate), Expires: 03/01/2025Start: 03-01-2024 End: 59-16-5659Zbzzwmhnms A1c/Hemoglobin.total in BloodHemoglobin A1c Lab Routine Abnormal vaginal bleeding Expected: 03/01/2024 (Approximate), Expires: 03/01/2025[facility] HealthcareComment on above:Expected: 03/01/2024 (Approximate), Expires: 03/01/2025Start: 03-01-2024 End: 57-21-5474Oaztwubbxdx hormoneLuteinizing hormone Lab Routine Abnormal vaginal bleeding Expected: 03/01/2024 (Approximate), Expires: 03/01/2025[facility] HealthcareComment on above:Expected: 03/01/2024 (Approximate), Expires: 03/01/2025Start: 03-01-2024 End: 13-59-5217Hvvxhaayhfz [Units/volume] in Serum or PlasmaTSH Lab Routine Abnormal vaginal bleeding Expected: 03/01/2024 (Approximate), Expires: 03/01/2025[facility] HealthcareComment on above:Expected: 03/01/2024 (Approximate), Expires: 03/01/2025Start: 03-01-2024 End: 50-84-1100Uysfvegqd (T4) free [Mass/volume] in Serum or PlasmaT4, free Lab Routine Abnormal vaginal bleeding Expected: 03/01/2024 (Approximate), Expires: 03/01/2025[facility] HealthcareComment on above:Expected: 03/01/2024 (Approximate), Expires: 03/01/2025Start: 03-01-2024 End: 05-05-8273KD for pregnancyUS PELVIS-TRANSVAG IF INDICATED Imaging Routine Abnormal vaginal bleeding Expected: 03/01/2024 (Approximate), Expires: 03/01/2025[facility] HealthcareComment on above:Expected: 03/01/2024 (Approximate), Expires: 03/01/2025Start: 03-01-2024 End: 62-85-1108Rqiosil encounter sjkcpoumc44/05/2024 11:10 AM EST Office Visit [facility] OB [address] [phone] Ricardo Rodriguez, DO [address] [place] [address] [facility]rivedFA[facility] OBComment on above:ArrivedStart: 22-50-4969Oygdtxkti for malignant neoplasm of cervixHPV/CotestNOWY Healthcare Start: 44-10-4262Jjvvfjxox vaccinationInfluenza Vaccine (#1)[facility] Start: 05-26-2023 End: 86-29-3859Swdqflf encounter pgnjstaec19/29/2024 9:50 AM EST Routine [facility] OB [address] [place] [address] Ricardo Rodriguez, DO [address] [place] [address] [facility] OBStart: 05-10-2023 End: 46-44-2634KJT panel - Blood by Automated countCBC Lab Routine Diabetes mellitus screening Expected: 05/10/2023 (Approximate), Expires: 05/10/2024[facility] Work Phone: comment on above:Expected: 05/10/2023 (Approximate), Expires: 05/10/2024Start: 05-10-2023 End: 45-32-3452Rxpeuutteps of glucose 1 hour after glucose challenge for glucose tolerance testGlucose tolerance, 1 hour Lab Routine Diabetes mellitus screening Expected: 05/10/2023 (Approximate), Expires: 05/10/2024[facility] HealthcareComment on above:Expected: 05/10/2023 (Approximate), Expires: 05/10/2024Start: 46-08-2731Wfqpxmgbr vaccinationInfluenza Vaccine (#1)[facility] Immunizations Immunization DateImmunizationNotesCare XcocacdpEqzzndlw13-41-6712bllemvzne virus vaccine, unspecified formulationCorey Jennifer DO Work Phone: [facility] Payers DatePayer CategoryPayerPolicy [id number]-[id number] Cross Blue [id number] UnknownBCBS BCBS [id number] 2022-[facility] [phone] [address] [place] [address].2.840.515373.1.13.693.2.7.3.528769.77304-33-0095Uvdcnce [id number] 2.840.1.857545.3.579.2.17543-61-5908Rjvuicc1302086 2.840.1.541801.3.579.2.24051-06-2577Bjtxkwn1582372 2.840.1.670728.3.579.2.27074-75-3624Nyrbims4399929 2.16840.1.775416.3.579.2.84717-12-3804Nuazbuh2885477 2.16840.1.846544.3.579.2.66126-18-5441Dsjeqlu2284170 2.16840.1.857109.3.579.2.58360-99-1557Jtufwkf7193705 2.16.840.1.722177.3.579.2.30917-86-0909Zavhrcg3807120 2.16.840.1.233401.3.579.2.04221-42-5961Modgesp7021975 2.16.840.1.774433.3.579.2.22663-46-6733Janyeha5137190 2.16.840.1.153237.3.579.2.97811-73-7990Vobkyhu2011501 2.16.840.1.363491.3.579.2.37017-67-9337Htmtnvy0879312 2.16.840.1.772214.3.579.2.47239-96-6754Fapmubm6878791 2.16.840.1.469230.3.579.2.19515-13-1801Hgdpzdp7075956 2.16.840.1.087735.3.579.2.76196-72-9663Yysrkwm6991278 2.16.840.1.679776.3.579.2.05382-65-5420Nkeyghl8672165 2.16.840.1.494604.3.579.2.06421-24-4478Zygsrtc3625582 2.16.840.1.584896.3.579.2.76949-99-9526Uokzujq4901582 2.16.840.1.375570.3.579.2.22737-48-4229Dhmghcz8912330 2.16.840.1.975324.3.579.2.23457-89-3061Qyovsvc7699242 2.16.840.1.643828.3.579.2.85216-73-2102Qjzycvq5012003 2.16.840.1.805621.3.579.2.21822-11-6435Rgzgoho0359526 2.16.840.1.389802.3.579.2.47811-88-4743Qwmpglc8474660 2.0.1.022348.3.579.2.13217-64-4926Gvkksko2937346 2.0.1.728399.3.579.2.61590-64-5319Kfpfsym2370186 2..1.398753.3.579.2.53869-74-0741Owiqhhl77562230 2..1.453801.3.579.2.918758-70-9826Lfpmxdv79093572 2..1.741305.3.579.2.780325-42-3112Valyrmo7485016 2..1.364054.3.579.2.324748-47-7101Saskvyp1160042 2..1.452585.3.579.2.304426-47-3053Bwnaapb4260753 2..1.854167.3.579.2.243274-36-2615Sehslhp9573426 2..1.006000.3.579.2.730685-38-3507UcjoqmbB0A384X3002293-97-8150Sohxxbo VY2665061Unohtai762102029 2..1.311284.55YdqbniaAHF822088982321 8855g5w3-6j95-5k15-4m0x-434l3q20493xEtknufvFnxpla /SRc2o528g32396 uhi49694-k136-7bmp-b752-qfl43s6n4g75Tzbovof44366339 2..1.164474.3.579.2.834Grymflj08114335 2..1.378522.3.579.2.531 Social History DateTypeDetailFacilityUnknown if ever smokedMelstone [employer] Other Start: 01-28-2023 End: 72-91-3667Afl Assigned At [facility] [employer] Other Start: 01-28-2023 End: 18-66-5085Mmsiuda smoking status NHISNever smoked tobaccoUTAH STATE HOSPITAL Healthcare Start: 05-10-2023 End: 58-30-8448Gaotisb intakeCurrent drinker of alcohol (finding)[facility] Start: 01-28-2023 End: 39-48-2766Paouubr of Social functionNOMS HealthcareHow often to you have a drink containing alcohol?2-4 times a monthNOWY HealthcareHow many standard drinks containing alcohol do you have on a typical day?1 or 2NOMS HealthcareHow often do you have 6 or more drinks on 1 occasion?WeeklyNOWY HealthcareStart: 97-41-0111Bpehemo Commentcaffeine: occasionalNOWY HealthcareStart: 11-26-2022 PregnancyNOWY HealthcareStart: 37-96-5483Dkp Assigned At [facility] HealthcareStart: 30-21-1841Rnicmu identityIdentifies as female gender (finding) [facility] HealthcareStart: 91-14-0189Nqylcd orientationHeterosexual (finding)[facility] HealthcareStart: 91-71-3746UhhHzksuz (finding)[facility] Start: 58-92-1184TgwFcndknNVIJ Healthcare Clinical Notes 12-22-2020 to 09-24-2024 Note Date & HautRvhvKyhvthih97-98-6566 History of Present illness Narrative* CHERELLE Abdi - 09/24/2024 10:50 AM EDT Reason for Appointment: Patient ID: Ester Macias [...] Hypoglycemia 05/26/2023 JOSESITO (amniotic fluid index) increased ([facility]) 05/26/2023 Third trimester ([facility]) 06/13/2023 32 weeks gestation of ([facility]) 06/30/2023 Resolved Ambulatory Problems Diagnosis Date [...] behalf of: CHERELLE Abdi documented in this encounterJefferson Memorial HospitalHgrdnjfcxc03-60-4188 History of Present illness Narrative* Ricardo Rodriguez DO - 08/28/2024 2:00 PM EDT Reason for Appointment: Patient ID: Ester Macias is a 28 y.o. female who presents for Pre-op Visit Patient presents today for Pre Op appointment. Patient is scheduled to undergo Diagnostic Laparoscopy, possible KAY, possible FOE, possible BSO on 09/13/[address] Rodriguez at [facility]. MEDICATIONS No current outpatient medications [...] nursing note reviewed. Exam conducted with a er tech present. Vitals: Estimated body mass index is [...] reviewed, and patient is to proceed to [facility] OR. Follow Up: Patient is to follow up between 1-2 weeks post operative to assess proper healing and recovery fromprocedure. Documented by Melissa Thornton LPN on behalf of: Ricardo Rodriguez DO documented in this encounterJefferson Memorial HospitalVdkljhmkbk37-50-0062 History of Present illness Narrative* CHERELLE Abdi - 08/21/2024 10:20 AM EDT Reason for Appointment: Patient ID: Ester Macias [...] behalf of: CHERELLE Abdi documented in this encounterJefferson Memorial HospitalUvktjvrvnw32-49-4478 History of Present illness Narrative* Abigail Guzman, PAPER BALING MACHINE OPERATOR - 07/19/2024 11:40 AM EDT Reason for Appointment: Patient ID: Ester Macias [...] nursing note reviewed. Exam conducted with a er tech present. Vitals: Estimated body mass index is [...] patient. Patient given 3 samples of Tyblume Lot:[id number] Exp: 02/19 Documented by Abigail Guzman LPN on behalf of: Ricardo Rodriguez DO documented in this encounterJefferson Memorial HospitalWuzorsebxn34-99-4412 History of Present illness Narrative* Abigail Guzman LPN - 03/01/2024 11:10 AM EST Reason for Appointment: Patient ID: Ester Macias [...] nursing note reviewed. Exam conducted with a er tech present. Vitals: Estimated body mass index is [...] of: Ricardo Rodriguez DO documented in this encounterJefferson Memorial HospitalLjtgomeckt96-56-3283 History of Present illness Narrative* Melissa Thornton LPN - 05/10/2023 2:50 PM EST Reason for Appointment: Patient ID: Ester Macias [...] nursing note reviewed. Exam conducted with a er tech present. Vitals: Estimated body mass index is [...] of: Ricardo Rodriguez DO documented in this encounterJefferson Memorial HospitalTvexjsmvhj02-41-5610 NoteOPERATIVE NOTE OPERATION DATE: 07/08/2022 PROCEDURE: Diagnostic laparoscopy with fulguration of ovarian endometrial implant. PREOPERATIVE DIAGNOSIS: Pelvic pain. POSTOPERATIVE DIAGNOSIS: Pelvic pain. ANESTHESIA: General. SURGEON: Ricardo Rodriguez D.O. HOME ENERGY INSPECTOR: DEVIN Miles URINE OUTPUT: Yellow and [...] taken to Recovery Room in stable condition.[facility] CenterQfumwypk28-79-9288 Evaluation note* Encounter Date Diagnosis Assessment Notes Treatment Notes Treatment Clinical Notes Nov, Irritable bowel synd makeda with both constipation and diarrhea (ICD- 10 - K58.2) LABS INDICATED ABOVE START TRIAL OF DICYCLOMINE 20 BID RTO 4 WEEKS [facility] [employer] Other Evaluation noteNort [employer] Other Evaluation note* Diagnosis Second trimester state, incidental Diabetes mellitus screening Screening for diabetes mellitus documented in this encounter [facility] HealthcareEvaluation noteNo assessment information availableJ.W. Ruby [facility] Hospital Work Phone: Evaluation note* Diagnosis Abnormal vaginal bleeding Other specified noninflammatory disorder of vagina PCOS (polycystic ovarian syndrome) Polycystic ovaries documented in this encounter [facility] HealthcareEvaluation note* Diagnosis Irregular periods/menstrual cycles Pelvic pain in female Unspecified symptom associated with female genital organs documented in this encounter [facility] HealthcareEvaluation note* Diagnosis Cyst of right ovary Other and unspecified ovarian cyst Complex ovarian cyst documented in this encounter [facility] HealthcareEvaluation note* Diagnosis Pre-op examination Cyst of right ovary Other and unspecified ovarian cyst Complex ovarian cyst Pelvic pain documented in this encounter [facility] HealthcareEvaluation note* Diagnosis Postoperative visit S/P laparoscopy Other postprocedural status Cystostomy status (HCC) documented in this encounter [facility] HealthcareHistory general Narrative - Reported* Type Description Date Medical History anxiety/depression Medical HistoryIBSSurgical HistoryTONSILLECTOMY [facility] [employer] Other History general Narrative - ReportedNoLancaster [facility] [employer] Other Summary Purpose Family History Relationship Condition Age at Onset Recorded Date/T ricardo brother Unknown fatherDeceasedUnknownHypertensionUnknowngrandparentHypertensionUnknownDiabetes mellitusUnknowngrandparentDiabetes mellitusUnknownNot SpecifiedMalignant neoplasmUnknown Relationship Condition Age at Onset Recorded Date/T ricardo brother Unknown fatherDeceasedUnknownHypertensionUnknowngrandparentHypertensionUnknownDiabetes mellitusUnknowngrandparentDiabetes mellitusUnknownmotherMalignant neoplasm Unknown Advance Directives Advance Directive Response [...] and content) DATE CREATED AUTHOR 07/13/2022 [facility] DATE CREATED AUTHOR AUTHOR'S ORGANIZ ATION 09/16/2024 [facility] DATE CREATED AUTHOR AUTHOR'S ORGANIZ ATION 09/25/2024 [facility] EPIC Care Teams (unrecognized sec tion and content) Team MemberRelationshipSpecialtyStart DateEnd Date Iron Avila MD [address] [place] [address] PCP - GeneralFamily Medicine11/23/22 Team Status: Active Member Role Status Yaakov Avila MD Primary Care Provider Active Team Status: Inactive Member Role Status Yaakov Avila MD Primary Care Provider Active Start: May 22, 2023 End: May 22Trini Echevarria ProviderActiveStart: May 22, 2023 End: May 22, 2023Team MemberRelationshipSpecialtyStart DateEnd Date Iron Avila MD [address] [facility] [place] [address] PCP - GeneralChildren[facility]11/23/22Team MemberRelationshipSpecialtyStart DateEnd Date Iron Avila MD [address] [facility] [place] [facility] [place] [address] PCP - GeneralFami Medicine11/23/22Team MemberRelationshipSpecialtyStart DateEnd Date Iron Avila MD [address] [facility] [place] [facility] [place] [address] PCP - GeneralFami Medicine11/23/22Team MemberRelationshipSpecialtyStart DateEnd Date Iron Avila MD [address] [place] [address] PCP - GeneralFamily Medicine11/23/22Team MemberRelationshipSpecialtyStart DateEnd Date Iron Avila MD [address] [facility] [place] [address] PCP - GeneralFamily Medicine08/21/24Team MemberRelationshipSpecialtyStart DateEnd Date Iron Avila MD [address] [facility] [place] [address] PCP - GeneralFamily Medicine08/21/24 Team Status: Inactive Member Role Status Dates Hannah David DO Attending Provider Active Start: August 15, 2024 End: August 15, 2024Team MemberRelationshipSpecialtyStart DateEnd Date Iron Avila MD [address] [facility] [place] [facility] [place] [address] PCP - GeneralFamily Medicine08/21/24Team MemberRelationshipSpecialtyStart DateEnd Date Iron Avila MD [address] [facility] [place] [address] PCP - GeneralFamily Medicine08/21/24Team MemberRelationshipSpecialtyStart DateEnd Date Iron Avila MD [address] [facility] [place] [address] PCP - GeneralFamily Medicine08/21/24Team MemberRelationshipSpecialtyStart DateEnd Date Iron Avila MD PCP - GeneralFamily Medicine/ Iron Avila MD [address] [facility] [place] [address] PCP - GeneralFamily Medicine08/21/24Team MemberRelationshipSpecialtyStart DateEnd Iron Avila MD [facility] Iron Avila MD [address] [place] [address] [facility]08/21/24Te MemberRelationshipSpecialtyStart DateEnd Iron Avila MD [facility] Iron Avila MD [address] [place] [address] [facility]08/21/24 Goals (unrecognized section and content) Goals [...] BE BASED ON THE PRIMARY CLINICAL RECORDS. [facility] provides no warranty or guarantee of the accuracy or completeness of information in this document.
--- OUTSIDE RECORDS SUMMARY | 2025-01-30 12:18 | XMS_ITS | Encounter Summary ---
Author Organization [facility] Address [address] [place] [address] Care Team Providers Care Market Research Specialist Name Role Phone Erik Garcia MD Primary Care Provider [phone] Erik Garcia MD Primary Care Provider [phone] Encounter Details DateTypeDepartmentCare Team (Latest Contact Info)Iqwukoyaipx25/14/2024Clinisync Result Encounter [facility] External Department Unsolicited Ricardo Rodriguez DO [address] [place] [address] [place] [address] Social History Tobacco UseTypesPacks/DayYears UsedDateSmoking Tobacco: NeverAlcohol UseStandard Drinks/WeekCommentsYes0 (1 standard drink = 0.6 oz pure alcohol)caffeine: occasionalAUDIT-CAnswerDate RecordedQ1: How often do you have a drink containing alcohol?2-4 times a month01/28/2023Q2: How many drinks containing alcohol do you have on a typical day when you are drinking?1 or Q3: How often do you have six or more drinks on one occasion?Inobzh7601/28/2023CommentsYesSex and Gender InformationValueDate RecordedSex Assigned at EzlvhWdzjjb25/28/2023 10:50 AM EDTLegal AoxHhqtai59/15/2023 8:06 PM EDTGender QdnphypgRmqtjw46/28/2023 10:50 AM EDTSexual GtmblhdunsqTwmwlnga65/28/2023 10:50 AM EDTdocumented as of this encounter Plan of Treatment Not on file documented as of this encounter Procedures Procedure NamePriorityDate/TimeAssociated DiagnosisCommentsUS AMNIOTIC FLUID LUXZSY7106/09/2023 3:45 PM EDT documented in this encounter Results * US AMNIOTIC FLUID VOLUME (06/09/2023 3:45 PM EDT)Anatomical RegionLaterality ModalityRadiographic ImagingSpecimen (Source)Anatomical Location / Laterality Collection Method / VolumeCollection TimeReceived Time06/09/2023 3:45 PM EDT Narrative 06/09/2023 3:47 PM EDT [facility] ?[address] ? [place] [address] ? Ultrasound Report ? Signed ? Patient: DEARTH,KASANDRA D ?MR#: [id number] ?? : 1995 ?Acct:[id number] ?? Age/Sex: 27 / F ?ADM Date: 06/09/23 ?? Loc: US ? Attending Dr: Ricarod Rodriguez D.O. ? Ordering Physician: Ricardo Rodriguez D.O. ?? Date of Service: 06/09/23 ?? Procedure(s): US OB amniotic fluid vol ?? Accession Number(s): [id number] ? cc: Ricardo Rodriguez D.O.; Erik Garcia M.D. ? [facility] ? [facility] ? [place] [address] ? Patient Name: ?? KASANDRA MACIAS ? MRN: [facility]:[id number] ? date: 1995 ?Sex: F ?? Assigned Patient Location: US ?? Current Patient Location: LAB ?? Accession/Order Number: [id number] ?? Exam Date: 06/09/2023 ??15:05 ?Report Date: 06/09/2023 ??15:45 ? At the request of: ?? RICARDO ??JENNIFER ? Procedure: ??US OB amniotic fluid vol ? EXAMINATION: US OB amniotic fluid vol ? HISTORY: Polyhydramnios O40.9XX0 ? COMPARISON: Ultrasound OB growth 05/26/2023 ? TECHNIQUE: Limited sonographic examination for amniotic fluid volume ? FINDINGS: ?? presentation: Breech ?? Amniotic fluid volume: 24.2 cm (95th percentile is 23.4 cm). ?? Heart rate: 143 bpm ? GA: 29 weeks 6 days ?? NITHYA 08/19/2023 ? US/US OB amniotic fluid vol ?? IMPRESSION: ? 1. Polyhydramnios; increased since prior study. ? Electronically authenticated by: LAM ??SVEN ?? Date: 06/09/2023 ??15:45 ? Dictated By: ?Lam Vela M.D. ? Signed By: ?06/09/231546 ? DD/ 44 ? TD/TT: ? Neuropsychiatric Aide: Procedure Note Radiology, Radiologist, - 06/09/2023 [place] [address] Ultrasound Report Signed Patient: KASANDRA MACIAS DMR#: [id number] : 1995Acct:[id number] Age/Sex: Date: 06/09/23 Loc: US Attending Dr: Ricardo Rodriguez D.O. Ordering Physician: Ricardo Rodriguez D.O. Date of Service: 06/09/23 Procedure(s): US OB amniotic fluid vol Accession Number(s): [id number] cc: Ricardo Rodriguez D.O.; Erik Garcia M.D. The [place] [id number] Patient Name: KASANDRA MACIAS MRN: [id number] date: 1995 Sex: F Assigned Patient Location: US Current Patient Location: LAB Accession/Order Number: [id number] Exam Date: 06/09/2023 15:05 Report Date: 06/09/2023 [...] since prior study. Electronically authenticated by: LAM VELA Date: 06/09/2023 15:45 Dictated By: Lam Vlea M.D. Signed By:06/09/23 1547 DD/ 1545 TD/TT: Neuropsychiatric Aide: Authorizing ProviderResult TypeResult StatusCorey Jennifer DOIMG XR PROCEDURESFinal Result documented in this encounter Visit Diagnoses Not on filedocumented in this encounter Care Teams Team MemberRelationshipSpecialtyStart DateEnd Date Erik Garcia MD PCP - GeneralFamily Medicine/ Erik Garcia MD [address] [place] [address] [phone] PCP - GeneralFamily Medicine08/21/24documented as of this encounter
[2025-01-30 12:28] LABS: Hematocrit 40.1 % (36.0-48.0); Hemoglobin 13.1 g/dL (12.0-16.0); Immature Granulocytes Abs Auto 0.06 10^3/uL (0.00-0.03); Immature Granulocytes Pct Auto 0.5 % (0.0-0.5); Lymphocytes Absolute Auto 1.9 10^3/uL (1.2-3.8); Mean Corpuscular HGB Conc 32.7 g/dL (29.9-35.2); Mean Corpuscular Hemoglobin 30.4 pg (26.7-34.0); Mean Corpuscular Volume 93.0 fL (81.0-99.0); Platelet Count 353 10^3/uL (150-450); Red Blood Count 4.31 10^6/uL (4.20-5.40); White Blood Count 12.2 10^3/uL (4.0-11.0)
[2025-01-30 12:38] LABS: Glucose Urine UA NEGATIVE (NEGATIVE)
[2025-01-30 12:49] LABS: Cast Seen? NONE SEEN #/LPF (NONE SEEN); Crystals Seen? None Seen #/HPF (None Seen); Urine Culture Indicated YES-FRMC
== END 2025-01-30 12:13 | disposition home or self-care (01) ==
LOC: LAB 12:13
PROVIDERS: PCP Family Medicine; Visit Provider Family Medicine
DX: R50.9 Fever, unspecified (principal)
CPT/HCPCS: 36415; 81001; 85025; 85652; 86140; 87086

== ENCOUNTER 2025-01-31 08:54 | Outpatient (OUT) | payer BC, SELFPAY ==
--- OUTSIDE RECORDS SUMMARY | 2025-01-30 19:39 | XMS_ITS | Continuity of Care Document ---
Author Organization [facility] Address [address] [place] [address] Phone Care Team Providers Care Water Safety Teacher Name Role Phone Erik Garcia MD Attending Provider [phone] Care Teams Patient Care Team Team Status: Inactive Member Role/Relationship Status Dates Erik Garcia MD Attending Provider Active Sta rt: January 30, 2025 End: January 30, 2025 Chief Complaint and Reason for Visit Chief Complaint Admit Date Unknown January 30, 2025 1 2:16pm Allergies, Adverse Reactions, Alerts Allergen Type Severity Reaction Last Updated Verified Status No Known Allergies Allergy Unknown May 22, 2023 9:30amYesActive Social History Smoking Status Status Start Date End Date Date of Observa tion Never smoked tobacco (finding) May 22, 2023 9:35am Observation Status Observation Response Date of Response Legal Sex Female (finding) Sex Assigned At BirthFemaleSept1995 Family History Relationship Condition Age at Onset Recorded Date/T ricardo brother Unknown fatherDeceasedUnknownHypertensionUnknowngrandparentHypertensionUnknownDiabetes mellitusUnknowngrandparentDiabetes mellitusUnknownHypertensionUnknownmother Malignant neoplasmUnknown Problems Inactive/Resolved Problems Problem Diagnosis/Recorded Date Onset Date Status C omments Change in bowel habits May 12, 2017 9:43am Unknown Resolved Probl em List clean-up per request of Phys. EHR Cmte Weight loss May 12, 2017 9:43am Unknown Resolved Problem List clean-up per request of Phys. EHR Cmte Medications Medication Status Dose Units Route Directions Qty Days Refills S tart Date Stop Date End Date Reason(s) Instructions Adherence Desvenlafaxine Succinate (Pr istiq) 50 mg tablet extended release 24 hr Discontinued 50 MG PO Daily May 11, 2017 12:00amFebruary 2023 9:32amLinaclotide (Linzess) 72 mcg vxuzvaxLnfcvdvjmzsm85DMYSBXqlwbHncbqeeu 2017 12:00amFebruary 2017 7:46amLubiprostone (Amitiza) 8 mcg QhcuxeoJrcxkkiphfee7YDGWSVlkax daily May 12, 2017 12:00amFebruary 2023 9:32amPrenatal 75-Iron Iiw-Bawih-Sx8 (One A Day Women's Dha) 28 mg iron- 800 mcg combo pack ActivePKGPOFebruary 2023 12:00amUnknown Procedures Procedure Date Performed Status Urine Culture January 30, 2025 active Advance Directives Advance Directive Response Recorded Date/ Time Advance Directives No April 9:19am Insurance Providers Guarantor Kasandra Macias Address [address] [place], [place] [id number] Info.Home Phone: Payer Group Member ID Coverage Type Subscriber Relationship to Subscriber Effective Date Expiration Date [facility] [id number] , P Id: [id number] [address] [place] [phone] Home Phone: Encounters Encounter Location(s) Arrival/Admit Date Discharge/Departure Date Discharge/Departure Disposition Provider(s) Departed Referred -[facility] January 30, 2025 12:16pm January 30, 2025 12:17pm Discharged to home care or self care (routine discharge) Dima Shea MD Plan of Treatment Future Tests Future scheduled test information is unavailable Pending Tests Test Name Ordered Date Scheduled Date Urine Culture January 30, 2025 12:16pm Future Visits Future appointment information is unavailable Future Procedures Procedure Name Ordered Date Scheduled Date Urine Culture January 30, 2025 8:05pm Novemb er 2024 12:16pm Future Medications Future medication information is unavailable Patient Instructions Patient instructions are unavailable
--- OUTSIDE RECORDS SUMMARY | 2025-01-31 08:58 | XMS_ITS | Encounter Summary ---
Author Organization [facility] Address [address] [place] [address] Care Team Providers Care Car Wiper Name Role Phone Erik Garcia MD Primary Care Provider [phone] Erik Garcia MD Primary Care Provider [phone] Encounter Details DateTypeDepartmentCare Team (Latest Contact Info)Uynjqnnlebs84/26/2024Clinisync Result Encounter [facility] External Department Unsolicited Wisam Rodriguez DO [address] [place] [address] [place] [address] Social History Tobacco UseTypesPacks/DayYears UsedDateSmoking Tobacco: NeverAlcohol UseStandard Drinks/WeekCommentsYes0 (1 standard drink = 0.6 oz pure alcohol)caffeine: occasionalAUDIT-CAnswerDate RecordedQ1: How often do you have a drink containing alcohol?2-4 times a month01/28/2023Q2: How many drinks containing alcohol do you have on a typical day when you are drinking?1 or Q3: How often do you have six or more drinks on one occasion?Wppqhp7501/28/2023CommentsYesSex and Gender InformationValueDate RecordedSex Assigned at BzkyjNmifcc99/28/2023 10:50 AM EDTLegal EjlSaoxnd29/15/2023 8:06 PM EDTGender ZayzefdmEbflwx45/28/2023 10:50 AM EDTSexual ReysqalxpdzQmwmndfv46/28/2023 10:50 AM EDTdocumented as of this encounter Plan of Treatment Not on file documented as of this encounter Procedures Procedure NamePriorityDate/TimeAssociated DiagnosisCommentsUS OB BPP W NON-FMIBNQ5607/22/2023 7:49 AM EDT documented in this encounter Results * US OB BPP W NON-STRESS (07/22/2023 7:49 AM EDT)Anatomical Region LateralityModalityOtherSpecimen (Source)Anatomical Location / Laterality Collection Method / VolumeCollection TimeReceived Time07/22/2023 7:49 AM EDT Narrative 07/22/2023 7:51 AM EDT [facility] ?[address] ? [place] [address] ? Ultrasound Report ? Signed ? Patient: DEARTH,KASANDRA D ?MR#: [id number] ?? : 1995 ?Acct:[id number] ?? Age/Sex: 27 / F ?ADM Date: 07/21/23 ?? Loc: [facility] ? Attending Dr: Wisam Rodriguez D.O. ? Ordering Physician: iWsam Rodriguez D.O. ?? Date of Service: 07/21/23 ?? Procedure(s): US OB BPP w non-stress ?? Accession Number(s): [id number] ? cc: Wisam Rodriguez D.O.; Erik Garcia M.D. ? [facility] ? [facility] ? [place] [address] ? Patient Name: ?? KASANDRA Donna ANGÉLICAMIYA ? MRN: [facility]:[id number] ? date: 1995 ?Sex: F ?? Assigned Patient Location: [facility] ?? Current Patient Location: ? Accession/Order Number: [id number] ?? Exam Date: 07/21/2023 ??17:36 ?Report Date: [...] 0751 ? DD/ 0749 ? TD/TT: ? Outboard Motor Assembler: Procedure Note Radiology, Radiologist, - 07/22/2023 [place] [address] Ultrasound Report Signed Patient: KASANDRA MACIAS DMR#: [id number] : 1995Acct:[id number] Age/Sex: 27 / FADM Date: 07/21/23 Loc: [facility] Attending Dr: Wisam Rodriguez D.O. Ordering Physician: Wisam Rodriguez D.O. Date of Service: 07/21/23 Procedure(s): US OB BPP w non-stress Accession Number(s): [id number] cc: Wisam Rodriguez D.O.; Erik Garcia M.D. The [place] [id number] Patient Name: KASANDRA MACIAS MRN: [facility]:[id number] date: 1995 Sex: F Assigned Patient Location: [facility] Current Patient Location: Accession/Order Number: [id number] Exam Date: 07/21/2023 17:36 Report Date: 07/22/2023 [...] M.D. Signed By:07/22/23 0751 DD/ 0749 TD/TT: Outboard Motor Assembler: Authorizing ProviderResult TypeResult StatusCorey Jennifer DOCLINISYNC IMAGINGFinal Result documented in this encounter Visit Diagnoses Not on filedocumented in this encounter Care Teams Team MemberRelationshipSpecialtyStart DateEnd Date Erik Garcia MD PCP - GeneralFamily Medicine/ Erik Garcia MD [address] [place] [address] PCP - GeneralFamily Medicine08/21/24documented as of this encounter
--- OUTSIDE RECORDS SUMMARY | 2025-01-31 08:58 | XMS_ITS | Encounter Summary ---
Author Organization [facility] Address [address] [place] [address] Care Team Providers Care Radiation Engineer Name Role Phone Erik Garcia MD Primary Care Provider [phone] Erik Garcia MD Primary Care Provider [phone] Encounter Details DateTypeDepartmentCare Team (Latest Contact Info)Wmrpiguxvfj13/30/2024Clinisync Result Encounter [facility] External Department Unsolicited Ricardo Rodriguez DO [address] [place] [address] [place] [address] Social History Tobacco UseTypesPacks/DayYears UsedDateSmoking Tobacco: NeverAlcohol UseStandard Drinks/WeekCommentsYes0 (1 standard drink = 0.6 oz pure alcohol)caffeine: occasionalAUDIT-CAnswerDate RecordedQ1: How often do you have a drink containing alcohol?2-4 times a month01/28/2023Q2: How many drinks containing alcohol do you have on a typical day when you are drinking?1 or Q3: How often do you have six or more drinks on one occasion?Jzfbns9601/28/2023CommentsYesSex and Gender InformationValueDate RecordedSex Assigned at ZpgmmOxbnqp50/28/2023 10:50 AM EDTLegal QgfQmfqns42/15/2023 8:06 PM EDTGender KybqyzluYbhzbt47/28/2023 10:50 AM EDTSexual UyflxwrchkkXjvwutna27/28/2023 10:50 AM EDTdocumented as of this encounter Plan of Treatment Not on file documented as of this encounter Procedures Procedure NamePriorityDate/TimeAssociated DiagnosisCommentsUS OB BPP W NON-HSQIBB3407/26/2023 5:40 AM EDT documented in this encounter Results * US OB BPP W NON-STRESS (07/26/2023 5:40 AM EDT)Anatomical Region LateralityModalityOtherSpecimen (Source)Anatomical Location / Laterality Collection Method / VolumeCollection TimeReceived Time07/26/2023 5:40 AM EDT Narrative 07/26/2023 5:42 AM EDT [facility] ?[address] ? [place] [address] ? Ultrasound Report ? Signed ? Patient: DEARTH,KASANDRA D ?MR#: [id number] ?? : 1995 ?Acct:[id number] ?? Age/Sex: 27 / F ?ADM Date: 07/25/23 ?? Loc: US ? Attending Dr: Ricardo Rodriguez D.O. ? Ordering Physician: Ricardo Rodriguez D.O. ?? Date of Service: 07/25/23 ?? Procedure(s): US OB BPP w non-stress ?? Accession Number(s): [id number] ? cc: Ricardo Rodriguez D.O.; Erik Garcia M.D. ? [facility] ? [address] ? [place] [address] ? Patient Name: ?? KASANDRA MACIAS ? MRN: [facility]:[id number] ? date: 1995 ?Sex: F ?? Assigned Patient Location: [facility] ?? Current Patient Location: ? Accession/Order Number: [id number] ?? Exam Date: 07/25/2023 ??16:04 ?Report Date: [...] 0542 ? DD/ 0540 ? TD/TT: ? Interactive Media Marketing Specialist: Procedure Note Radiology, Radiologist, - 07/26/2023 [place] [address] Ultrasound Report Signed Patient: KASANDRA MACIAS DMR#: [id number] : 1995Acct:[id number] Age/Sex: Date: 07/25/23 Loc: US Attending Dr: Ricardo Rodriguez D.O. Ordering Physician: Ricardo Rodriguez D.O. Date of Service: 07/25/23 Procedure(s): US OB BPP w non-stress Accession Number(s): [id number] cc: Ricardo Rodriguez D.O.; Erik Garcia M.D. The [place] [id number] Patient Name: KASANDRA MACIAS MRN: [facility]:[id number] date: 1995 Sex: F Assigned Patient Location: [facility] Current Patient Location: Accession/Order Number: [id number] Exam Date: 07/25/2023 16:04 Report Date: 07/26/2023 [...] Vela M.D. Signed By:07/26/2342 DD/ 9 TD/TT: Interactive Media Marketing Specialist: Authorizing ProviderResult TypeResult StatusCorey Jennifer DOCLINISYNC IMAGINGFinal Result documented in this encounter Visit Diagnoses Not on filedocumented in this encounter Care Teams Team MemberRelationshipSpecialtyStart DateEnd Date Erik Garcia MD PCP - GeneralFamily Medicine/ [place] [address] [place] [phone] PCP - GeneralFamily Medicine08/21/24documented as of this encounter
--- OUTSIDE RECORDS SUMMARY | 2025-01-31 08:58 | XMS_ITS | Encounter Summary ---
Author Organization [facility] Address [address] [place] [address] Care Team Providers Care Director Trust Name Role Phone Erik Garcia MD Primary Care Provider [phone] Erik Garcia MD Primary Care Provider [phone] Encounter Details DateTypeDepartmentCare Team (Latest Contact Info)Xfybemktoad82/29/2024Clinisync Result Encounter [facility] External Department Unsolicited Ricardo Rodriguez DO [address] [place] [address] [place] [address] Social History Tobacco UseTypesPacks/DayYears UsedDateSmoking Tobacco: NeverAlcohol UseStandard Drinks/WeekCommentsYes0 (1 standard drink = 0.6 oz pure alcohol)caffeine: occasionalAUDIT-CAnswerDate RecordedQ1: How often do you have a drink containing alcohol?2-4 times a month01/28/2023Q2: How many drinks containing alcohol do you have on a typical day when you are drinking?1 or Q3: How often do you have six or more drinks on one occasion?Huqvjh3601/28/2023CommentsYesSex and Gender InformationValueDate RecordedSex Assigned at QhastYoyuen22/28/2023 10:50 AM EDTLegal SebAzjvlr12/15/2023 8:06 PM EDTGender ZgpmywrdMryulk85/28/2023 10:50 AM EDTSexual GbhzcnxqksaCvmoaodp31/28/2023 10:50 AM EDTdocumented as of this encounter Plan of Treatment Not on file documented as of this encounter Procedures Procedure NamePriorityDate/TimeAssociated DiagnosisCommentsUS OB GROWTH 05/26/2023 9:49 AM EST documented in this encounter Results * US OB GROWTH (05/26/2023 9:49 AM EST)Anatomical RegionLateralityModalityOther Specimen (Source)Anatomical Location / LateralityCollection Method / Volume Collection TimeReceived Time05/26/2023 9:49 AM EST Narrative 05/26/2023 9:52 AM EST [facility] ?[address] ? [place], [facility] ? Ultrasound Report ? Signed ? Patient: DEARTH,KASANDRA D ?MR#: [id number] ?? : 1995 ?Acct:[id number] ?? Age/Sex: 27 / F ?ADM Date: 05/26/23 ?? Loc: [facility] ? Attending Dr: Ricardo Rodriguez D.O. ? Ordering Physician: Ricardo Rodriguez D.O. ?? Date of Service: 05/26/23 ?? Procedure(s): US OB growth ?? Accession Number(s): [id number] ? cc: Ricardo Rodriguez D.O.; Erik Garcia M.D. ? [facility] ? [address] ? [place] [address] ? Patient Name: ?? KASANDRA Thompson DEART ? MRN: [facility]:[id number] ? date: 1995 ?Sex: F ?? Assigned Patient Location: [facility] ?? Current Patient Location: [facility] ?? Accession/Order Number: [id number] ?? Exam Date: 05/26/2023 ??09:17 ?Report Date: [...] ?05/26/23951 ? DD/ 0949 ? TD/TT: ? Lead Welder: Procedure Note Radiology, Radiologist, - 05/26/2023 [place] [address] Ultrasound Report Signed Patient: KASANDRA MACIAS DMR#: [id number] : 1995Acct:[id number] Age/Sex: Date: 05/26/23 Loc: [facility] Attending Dr: Ricardo Rodriguez D.O. Ordering Physician: Ricardo Rodriguez D.O. Date of Service: 05/26/23 Procedure(s): US OB growth Accession Number(s): [id number] cc: Ricardo Rodriguez D.O.; Erik Garcia M.D. The [address] [address] Patient Name: KASANDRA MACIAS MRN: [id number] date: 1995 Sex: F Assigned Patient Location: [facility] Current Patient Location: [facility] Accession/Order Number: [id number] Exam Date: 05/26/2023 09:17 Report Date: 05/26/2023 [...] Hernández M.D. Signed By:05/26/2352 DD/ 8 TD/TT: Lead Welder: Authorizing ProviderResult TypeResult StatusCoreoumou Rodriguez DOCLINISYNC IMAGINGFinal Result documented in this encounter Visit Diagnoses Not on filedocumented in this encounter Care Teams Team MemberRelationshipSpecialtyStart DateEnd Date Erik Garcia MD PCP - GeneralFamily Medicine Erik Garcia MD [address] [place] [address] PCP - GeneralFamily Medicine08/21/24documented as of this encounter
--- OUTSIDE RECORDS SUMMARY | 2025-01-31 08:58 | XMS_ITS | Encounter Summary ---
Author Organization [facility] Address [address] [place] [address] Care Team Providers Care Wagon Person Name Role Phone Erik Garcia MD Primary Care Provider [phone] Erik Garcia MD Primary Care Provider [phone] Encounter Details DateTypeDepartmentCare Team (Latest Contact Info)Kzqnnewcltt80/02/2024Clinisync Result Encounter [facility] External Department Unsolicited Wisam Rodriguez DO [address] [place] [address] [place] [address] Social History Tobacco UseTypesPacks/DayYears UsedDateSmoking Tobacco: NeverAlcohol UseStandard Drinks/WeekCommentsYes0 (1 standard drink = 0.6 oz pure alcohol)caffeine: occasionalAUDIT-CAnswerDate RecordedQ1: How often do you have a drink containing alcohol?2-4 times a month01/28/2023Q2: How many drinks containing alcohol do you have on a typical day when you are drinking?1 or Q3: How often do you have six or more drinks on one occasion?Pidfxy2301/28/2023CommentsYesSex and Gender InformationValueDate RecordedSex Assigned at HeoilChaxjj15/28/2023 10:50 AM EDTLegal HcoBxfrjm60/15/2023 8:06 PM EDTGender QbhihybaBgpuiz71/28/2023 10:50 AM EDTSexual TzmougqrckvSpwupgmx89/28/2023 10:50 AM EDTdocumented as of this encounter Plan of Treatment Not on file documented as of this encounter Procedures Procedure NamePriorityDate/TimeAssociated DiagnosisCommentsUS OB BPP W NON-FIJXLO2506/28/2023 7:15 AM EDT documented in this encounter Results * US OB BPP W NON-STRESS (06/28/2023 7:15 AM EDT)Anatomical Region LateralityModalityOtherSpecimen (Source)Anatomical Location / Laterality Collection Method / VolumeCollection TimeReceived Time06/28/2023 7:15 AM EDT Narrative 06/28/2023 7:17 AM EDT [facility] ?[address] ? [place] [address] ? Ultrasound Report ? Signed ? Patient: DEARTH,KASANDRA D ?MR#: [id number] ?? : 1995 ?Acct:[id number] ?? Age/Sex: 27 / F ?ADM Date: 06/27/23 ?? Loc: US ? Attending Dr: iWsam Rodriguez D.O. ? Ordering Physician: Wisam Rodriguez D.O. ?? Date of Service: 06/27/23 ?? Procedure(s): US OB BPP w non-stress ?? Accession Number(s): [id number] ? cc: Wisam Rodriguez D.O.; Erik Garcia M.D. ? [facility] ? [address] ? [place] [address] ? Patient Name: ?? KASANDRA Donna ANGÉLICAMIYA ? MRN: [facility]:[id number] ? date: 1995 ?Sex: F ?? Assigned Patient Location: US ?? Current Patient Location: ? Accession/Order Number: [id number] ?? Exam Date: 06/27/2023 ??17:04 ?Report Date: [...] 0717 ? DD/ 0715 ? TD/TT: ? State Editor: Procedure Note Radiology, Radiologist, MD - 06/30/2023 [place] [address] Ultrasound Report Signed Patient: KASANDRA MACIAS DMR#: [id number] : 1995Acct:[id number] Age/Sex: FADM Date: 06/27/23 Loc: US Attending Dr: Wisam Rodriguez D.O. Ordering Physician: Wisam Rodriguez D.O. Date of Service: 06/27/23 Procedure(s): US OB BPP w non-stress Accession Number(s): [id number] cc: Wisam Rodriguez D.O.; Erik Garcia M.D. The [place] [address] Patient Name: KASANDRA MACIAS MRN: [facility]:[id number] date: 1995 Sex: F Assigned Patient Location: US Current Patient Location: Accession/Order Number: [id number] Exam Date: 06/27/2023 17:04 Report Date: 06/28/2023 [...] Vela M.D. Signed By:06/28/23716 DD/ 4 TD/TT: State Editor: Authorizing ProviderResult TypeResult StatusCorey Jennifer DOCLINISYNC IMAGINGFinal Result documented in this encounter Visit Diagnoses Not on filedocumented in this encounter Care Teams Team MemberRelationshipSpecialtyStart DateEnd Date Erik Garcia MD PCP - GeneralFamily Medicine Erik Garcia MD [address] [place] [address] [phone] PCP - GeneralFamily Medicine08/21/24documented as of this encounter
--- OUTSIDE RECORDS SUMMARY | 2025-01-31 08:58 | XMS_ITS | Encounter Summary ---
Author Organization [facility] Address [address] [place] [address] Care Team Providers Care Meat Cooler Name Role Phone Erik Garcia MD Primary Care Provider [phone] Erik Garcia MD Primary Care Provider [phone] Encounter Details DateTypeDepartmentCare Team (Latest Contact Info)Yongcjzurag91/14/2024Clinisync Result Encounter [facility] External Department Unsolicited Ricardo Rodriguez DO [address] [place] [address] [place] [address] Social History Tobacco UseTypesPacks/DayYears UsedDateSmoking Tobacco: NeverAlcohol UseStandard Drinks/WeekCommentsYes0 (1 standard drink = 0.6 oz pure alcohol)caffeine: occasionalAUDIT-CAnswerDate RecordedQ1: How often do you have a drink containing alcohol?2-4 times a month01/28/2023Q2: How many drinks containing alcohol do you have on a typical day when you are drinking?1 or Q3: How often do you have six or more drinks on one occasion?Ydoszu6901/28/2023CommentsYesSex and Gender InformationValueDate RecordedSex Assigned at TbgddOidzfq69/28/2023 10:50 AM EDTLegal LlpIstwrf96/15/2023 8:06 PM EDTGender FgnqhqdiIkbrff93/28/2023 10:50 AM EDTSexual DqiqfdovwbbJksceued05/28/2023 10:50 AM EDTdocumented as of this encounter Plan of Treatment Not on file documented as of this encounter Procedures Procedure NamePriorityDate/TimeAssociated DiagnosisCommentsUS AMNIOTIC FLUID LSFUZD1006/09/2023 3:45 PM EDT documented in this encounter Results * US AMNIOTIC FLUID VOLUME (06/09/2023 3:45 PM EDT)Anatomical RegionLaterality ModalityRadiographic ImagingSpecimen (Source)Anatomical Location / Laterality Collection Method / VolumeCollection TimeReceived Time06/09/2023 3:45 PM EDT Narrative 06/09/2023 3:47 PM EDT [facility] ?[address] ? [place] [address] ? Ultrasound Report ? Signed ? Patient: DEARTH,KASANDRA D ?MR#: [id number] ?? : 1995 ?Acct:[id number] ?? Age/Sex: 27 / F ?ADM Date: 06/09/23 ?? Loc: US ? Attending Dr: Ricardo Rodriguez D.O. ? Ordering Physician: Ricardo Rodriguez D.O. ?? Date of Service: 06/09/23 ?? Procedure(s): US OB amniotic fluid vol ?? Accession Number(s): [id number] ? cc: Ricardo Rodriguez D.O.; Erik Garcia M.D. ? [facility] ? [facility] ? [place] [address] ? Patient Name: ?? KASANDRA MACIAS ? MRN: [facility]:[id number] ? date: 1995 ?Sex: F ?? Assigned Patient Location: US ?? Current Patient Location: LAB ?? Accession/Order Number: [id number] ?? Exam Date: 06/09/2023 ??15:05 ?Report Date: [...] ?06/09/231546 ? DD/ 44 ? TD/TT: ? Manager User Interface: Procedure Note Radiology, Radiologist, - 06/09/[address] [place] [address] Ultrasound Report Signed Patient: KASANDRA MACIAS DMR#: [id number] : 1995Acct:[id number] Age/Sex: Date: 06/09/23 Loc: US Attending Dr: Ricardo Rdoriguez D.O. Ordering Physician: Ricardo Rodriguez D.O. Date of Service: 06/09/23 Procedure(s): US OB amniotic fluid vol Accession Number(s): [id number] cc: Ricardo Rodriguez D.O.; Erik Garcia M.D. The [place] [id number] Patient Name: KASANDRA MACISA MRN: [id number] date: 1995 Sex: F Assigned Patient Location: US Current Patient Location: LAB Accession/Order Number: [id number] Exam Date: 06/09/2023 15:05 Report Date: 06/09/2023 [...] VELA Date: 06/09/2023 15:45 Dictated By: Lam Vela M.D. Signed By:06/09/23 1547 DD/ 1545 TD/TT: Manager User Interface: Authorizing ProviderResult TypeResult StatusCorey Jennifer DOIMG XR PROCEDURESFinal Result documented in this encounter Visit Diagnoses Not on filedocumented in this encounter Care Teams Team MemberRelationshipSpecialtyStart DateEnd Date Erik Garcia MD PCP - GeneralFamily Medicine/ Erik Garcia MD [address] [place] [phone] PCP - GeneralFamily Medicine08/21/24documented as of this encounter
--- OUTSIDE RECORDS SUMMARY | 2025-01-31 08:58 | XMS_ITS | Encounter Summary ---
Author Organization [facility] Address [address] [place] [address] Care Team Providers Care Clearing Inspector Name Role Phone Erik Garcia MD Primary Care Provider [phone] Erik Garcia MD Primary Care Provider [phone] Encounter Details DateTypeDepartmentCare Team (Latest Contact Info)Stflsmdrhuu51/23/2024Clinisync Result Encounter [facility] External Department Unsolicited Ricardo Rodriguez DO [address] [place] [address] [place] [address] Social History Tobacco UseTypesPacks/DayYears UsedDateSmoking Tobacco: NeverAlcohol UseStandard Drinks/WeekCommentsYes0 (1 standard drink = 0.6 oz pure alcohol)caffeine: occasionalAUDIT-CAnswerDate RecordedQ1: How often do you have a drink containing alcohol?2-4 times a month01/28/2023Q2: How many drinks containing alcohol do you have on a typical day when you are drinking?1 or Q3: How often do you have six or more drinks on one occasion?Srbqeu3101/28/2023CommentsYesSex and Gender InformationValueDate RecordedSex Assigned at DonirBlsrsm34/28/2023 10:50 AM EDTLegal EuwUlqeim30/15/2023 8:06 PM EDTGender CpulpbokQxipfl25/28/2023 10:50 AM EDTSexual IrdyfyavnxdFamxkazf26/28/2023 10:50 AM EDTdocumented as of this encounter Plan of Treatment Not on file documented as of this encounter Procedures Procedure NamePriorityDate/TimeAssociated DiagnosisCommentsUS OB BPP W NON-RKDHIG8407/19/2023 7:15 AM EDT documented in this encounter Results * US OB BPP W NON-STRESS (07/19/2023 7:15 AM EDT)Anatomical Region LateralityModalityOtherSpecimen (Source)Anatomical Location / Laterality Collection Method / VolumeCollection TimeReceived Time07/19/2023 7:15 AM EDT Narrative 07/19/2023 7:17 AM EDT [facility] ?[address] ? [place] [address] ? Ultrasound Report ? Signed ? Patient: DEARTH,KASANDRA D ?MR#: [id number] ?? : 1995 ?Acct:[id number] ?? Age/Sex: 27 / F ?ADM Date: 07/18/23 ?? Loc: US ? Attending Dr: Ricardo Rodriguez D.O. ? Ordering Physician: Ricardo Rodriguez D.O. ?? Date of Service: 07/18/23 ?? Procedure(s): US OB BPP w non-stress ?? Accession Number(s): [id number] ? cc: Ricardo Rodriguez D.O.; Erik Garcia M.D. ? [facility] ? [address] ? [place] [address] ? Patient Name: ?? KASANDRA LINDSAYBradly ? MRN: [facility]:[id number] ? date: 1995 ?Sex: F ?? Assigned Patient Location: [facility] ?? Current Patient Location: ? Accession/Order Number: [id number] ?? Exam Date: 07/18/2023 ??17:12 ?Report Date: [...] 0717 ? DD/ 0715 ? TD/TT: ? Project Manager: Procedure Note Radiology, Radiologist, - 07/19/2023 [place] [address] Ultrasound Report Signed Patient: KASANDRA MACIAS DMR#: [id number] : 1995Acct:[id number] Age/Sex: 27 FADM Date: 07/18/23 Loc: US Attending Dr: Ricardo Rodriguez D.O. Ordering Physician: Ricardo Rodriguez D.O. Date of Service: 07/18/23 Procedure(s): US OB BPP w non-stress Accession Number(s): [id number] cc: Ricardo Rodriguez D.O.; Erik Garcia M.D. The [place] [id number] Patient Name: KASANDRA MACIAS MRN: [id number] date: 1995 Sex: F Assigned Patient Location: [facility] Current Patient Location: Accession/Order Number: [id number] Exam Date: 07/18/2023 17:12 Report Date: 07/19/2023 [...] Hernández M.D. Signed By:07/19/23716 DD/ 4 TD/TT: Project Manager: Authorizing ProviderResult TypeResult StatusCorey Jennifer DOCLINISYNC IMAGINGFinal Result documented in this encounter Visit Diagnoses Not on filedocumented in this encounter Care Teams Team MemberRelationshipSpecialtyStart DateEnd Date Erik Garcia MD PCP - GeneralFamily Medicine/ Erik Garcia MD [facility] [place] [address] PCP - GeneralFamily Medicine08/21/24documented as of this encounter
--- OUTSIDE RECORDS SUMMARY | 2025-01-31 08:58 | XMS_ITS | Encounter Summary ---
Author Organization [facility] Address [address] [place] [address] Care Team Providers Care Fixed Interest Dealer Name Role Phone Erik Garcia MD Primary Care Provider [phone] Erik Garcia MD Primary Care Provider [phone] Encounter Details DateTypeDepartmentCare Team (Latest Contact Info)Vjzldumqwgm73/16/2024Clinisync Result Encounter [facility] External Department Unsolicited Ricardo Rodriguez DO [address] [place] [address] [place] [address] Social History Tobacco UseTypesPacks/DayYears UsedDateSmoking Tobacco: NeverAlcohol UseStandard Drinks/WeekCommentsYes0 (1 standard drink = 0.6 oz pure alcohol)caffeine: occasionalAUDIT-CAnswerDate RecordedQ1: How often do you have a drink containing alcohol?2-4 times a month01/28/2023Q2: How many drinks containing alcohol do you have on a typical day when you are drinking?1 or Q3: How often do you have six or more drinks on one occasion?Ysfpeu4201/28/2023CommentsYesSex and Gender InformationValueDate RecordedSex Assigned at SgdjkVqtvri92/28/2023 10:50 AM EDTLegal UknXntpwv37/15/2023 8:06 PM EDTGender SvooaxogXjuwox16/28/2023 10:50 AM EDTSexual UeicebkgolfGopuzbrm48/28/2023 10:50 AM EDTdocumented as of this encounter Plan of Treatment Not on file documented as of this encounter Procedures Procedure NamePriorityDate/TimeAssociated DiagnosisCommentsUS OB BPP W NON-SHHBZN6807/12/2023 7:45 AM EDT documented in this encounter Results * US OB BPP W NON-STRESS (07/12/2023 7:45 AM EDT)Anatomical Region LateralityModalityOtherSpecimen (Source)Anatomical Location / Laterality Collection Method / VolumeCollection TimeReceived Time07/12/2023 7:45 AM EDT Narrative 07/12/2023 7:47 AM EDT [facility] ?[address] ? [place] [address] ? Ultrasound Report ? Signed ? Patient: DEARTH,KASANDRA D ?MR#: [id number] ?? : 1995 ?Acct:[id number] ?? Age/Sex: 27 / F ?ADM Date: 07/11/23 ?? Loc: US ? Attending Dr: Ricardo Rodriguez D.O. ? Ordering Physician: Ricardo Rodriguez D.O. ?? Date of Service: 07/11/23 ?? Procedure(s): US OB BPP w non-stress ?? Accession Number(s): [id number] ? cc: Ricardo Rodriguez D.O.; Erik Garcia M.D. ? [facility] ? [address] ? [place] [address] ? Patient Name: ?? KASANDRA LINDSAYMIYA ? MRN: [facility]:[id number] ? date: 1995 ?Sex: F ?? Assigned Patient Location: [facility] ?? Current Patient Location: ? Accession/Order Number: [id number] ?? Exam Date: 07/11/2023 ??17:05 ?Report Date: [...] 0747 ? DD/ 0745 ? TD/TT: ? Machine Filler Shredder: Procedure Note Radiology, Radiologist, - 07/12/2023 [place] [address] Ultrasound Report Signed Patient: KASANDRA MACIAS DMR#: [id number] : 1995Acct:[id number] Age/Sex: 27 / FADM Date: 07/11/23 Loc: US Attending Dr: Ricardo Rodriguez D.O. Ordering Physician: Ricardo Rodriguez D.O. Date of Service: 07/11/23 Procedure(s): US OB BPP w non-stress Accession Number(s): [id number] cc: Ricardo Rodriguez D.O.; Erik Garcia M.D. The [place] [id number] Patient Name: KASANDRA MACIAS MRN: [id number] date: 1995 Sex: F Assigned Patient Location: [facility] Current Patient Location: Accession/Order Number: [id number] Exam Date: 07/11/2023 17:05 Report Date: 07/12/2023 [...] Dudley Hernández M.D. Signed By:07/12/2347 DD/ TD/TT: Machine Filler Shredder: Authorizing ProviderResult TypeResult StatusCorey Jennifer DOCLINISYNC IMAGINGFinal Result documented in this encounter Visit Diagnoses Not on filedocumented in this encounter Care Teams Team MemberRelationshipSpecialtyStart DateEnd Date Erik Garcia MD PCP - GeneralFamily Medicine/ Erik Garcia MD [address] [place] [phone] PCP - GeneralFamily Medicine08/21/24documented as of this encounter
--- OUTSIDE RECORDS SUMMARY | 2025-01-31 08:58 | XMS_ITS | Clinical Summary ---
Author Organization [facility] Address [address] [place] [address] Care Team Providers Care Human Resources Training Manager Name Role Phone Erik Garcia MD Primary Care Provider [phone] Allergies No known active allergies Medications No known medications Active Problems ProblemNoted DateDiagnosed Date32 weeks gestation of ([facility]) 06/30/2023Third trimester ([facility])06/13/20233413Zxixob43/29/2024 Cepsuyjfqzte34/29/2024FI (amniotic fluid index) increased ([facility])05/26/2023 Encounters DateTypeDepartmentCare JysoUmjlunobyiz06/19/2025Telephone [facility] [address] [place] [address] [place] [address] Alethea Reich MA from Last [...] 01/28/2023CommentsNoSex and Gender InformationValueDate RecordedSex Assigned at FoxftLvuukl30/28/2023 10:50 AM EDTLegal OetHoawtk42/15/2023 8:06 PM EDTGender GxdvfbkuEkqrzm76/28/2023 10:50 AM EDTSexual OrientationStraight 11/22/2022 10:50 AM EDT Last Filed Vital Signs Vital SignReadingTime TakenCommentsBlood Frkdpasj498/72009/24/2024 11:01 AM EDT Pulse--Temperature--Respiratory Rate--Oxygen Saturation--Inhaled Oxygen Concentration--Cqoihb70.5 kg (140 lb)09/24/2024 11:01 AM OUBIdckqb042.9 cm (5' 1 )11/23/2022 10:37 AM EDTBody [...] (#1)/, 12/30/2020, 12/26/2020, Additional history existsCervical Cancer Oojgsuvmt74/19/2026Pap Smear03/15/2026 03/15/2023HIB VaccinesAged OutNo longer eligible based [...] MemberRelationshipSpecialtyStart DateEnd Erik Garcia MD [address] [place] [address] PCP - GeneralFamily Medicine08/21/24
--- OUTSIDE RECORDS SUMMARY | 2025-01-31 08:58 | XMS_ITS | Encounter Summary ---
Author Organization [facility] Address [address] [place] [address] Care Team Providers Care Preschool Principal Name Role Phone Erik Garcia MD Primary Care Provider [phone] Erik Garcia MD Primary Care Provider [phone] Encounter Details DateTypeDepartmentCare Team (Latest Contact Info)Qqeawnoihiw94/05/2024Clinisync Result Encounter [facility] External Department Unsolicited Ricardo Rodriguez DO [address] [place] [address] [place] [address] Social History Tobacco UseTypesPacks/DayYears UsedDateSmoking Tobacco: NeverAlcohol UseStandard Drinks/WeekCommentsYes0 (1 standard drink = 0.6 oz pure alcohol)caffeine: occasionalAUDIT-CAnswerDate RecordedQ1: How often do you have a drink containing alcohol?2-4 times a month01/28/2023Q2: How many drinks containing alcohol do you have on a typical day when you are drinking?1 or Q3: How often do you have six or more drinks on one occasion?Yjptkp5901/28/2023CommentsYesSex and Gender InformationValueDate RecordedSex Assigned at MxomzHruaim33/28/2023 10:50 AM EDTLegal LdiZilgoy93/15/2023 8:06 PM EDTGender TfpiisfnKsinjr48/28/2023 10:50 AM EDTSexual XpqhapuwmzfKdvpzrzi24/28/2023 10:50 AM EDTdocumented as of this encounter Plan of Treatment Not on file documented as of this encounter Procedures Procedure NamePriorityDate/TimeAssociated DiagnosisCommentsUS OB ANATOMY 04/01/2023 7:16 AM EST documented in this encounter Results * US OB ANATOMY (04/01/2023 7:16 AM EST)Anatomical RegionLateralityModalityOther Specimen (Source)Anatomical Location / LateralityCollection Method / Volume Collection TimeReceived Time04/01/2023 7:16 AM EST Narrative 04/01/2023 7:19 AM EST [facility] ?[address] ? [place] [address] ? Ultrasound Report ? Signed ? Patient: ANGÉLICARTH,KASANDRA D ?MR#: [id number] ?? : 1995 ?Acct:[id number] ?? Age/Sex: 27 / F ?ADM Date: 03/31/23 ?? Loc: US ? Attending Dr: Ricardo Rodriguez D.O. ? Ordering Physician: Ricardo Rodriguez D.O. ?? Date of Service: 03/31/23 ?? Procedure(s): US OB anatomy ?? Accession Number(s): [id number] ? cc: Ricardo Rodriguez D.O.; Erik Garcia M.D. ? [facility] ? [address] ? [place] [address] ? Patient Name: ?? KASANDRA Donna DEART ? MRN: [facility]:[id number] ? date: 1995 ?Sex: F ?? Assigned Patient Location: US ?? Current Patient Location: ? Accession/Order Number: [id number] ?? Exam Date: 03/31/2023 ??19:37 ?Report Date: [...] 0719 ? DD/ 0716 ? TD/TT: ? Retail Furniture Sales: Procedure Note Radiology, Radiologist, - 04/01/2023 [place] [address] Ultrasound Report Signed Patient: KASANDRA MACIAS DMR#: [id number] : 1995Acct:[id number] Age/Sex: 27 / FADM Date: 03/31/23 Loc: US Attending Dr: Ricardo Rodriguez D.O. Ordering Physician: Ricardo Rodriguez D.O. Date of Service: 03/31/23 Procedure(s): US OB anatomy Accession Number(s): [id number] cc: Ricardo Rodriguez D.O.; Erik Garcia M.D. [place] [address] Patient Name: KASANDRA MACIAS MRN: [facility]:[id number] date: 1995 Sex: F Assigned Patient Location: US Current Patient Location: Accession/Order Number: [id number] Exam Date: 03/31/2023 19:37 Report Date: 04/01/2023 [...] Hernández M.D. Signed By:04/01/23718 DD/ 5 TD/TT: Retail Furniture Sales: Authorizing ProviderResult TypeResult StatusCorey Jennifer DOCLINISYNC IMAGINGFinal Result documented in this encounter Visit Diagnoses Not on filedocumented in this encounter Care Teams Team MemberRelationshipSpecialtyStart DateEnd Date Erik Garcia MD PCP - GeneralFamily Medicine/ Erik Garcia MD [address] [place] [phone] PCP - GeneralFamily Medicine08/21/24documented as of this encounter
--- OUTSIDE RECORDS SUMMARY | 2025-01-31 08:58 | XMS_ITS | Encounter Summary ---
Author Organization [facility] Address [address] [place] [address] Care Team Providers Care Experimental Assembler Name Role Phone Erik Garcia MD Primary Care Provider [phone] Erik Garcia MD Primary Care Provider [phone] Encounter Details DateTypeDepartmentCare Team (Latest Contact Info)Weizqjhocxv46/11/2024Clinisync Result Encounter [facility] External Department Unsolicited Ricardo Rodriguez DO [address] [place] [address] [place] [address] Social History Tobacco UseTypesPacks/DayYears UsedDateSmoking Tobacco: NeverAlcohol UseStandard Drinks/WeekCommentsYes0 (1 standard drink = 0.6 oz pure alcohol)caffeine: occasionalAUDIT-CAnswerDate RecordedQ1: How often do you have a drink containing alcohol?2-4 times a month01/28/2023Q2: How many drinks containing alcohol do you have on a typical day when you are drinking?1 or Q3: How often do you have six or more drinks on one occasion?Fqusjy8901/28/2023CommentsYesSex and Gender InformationValueDate RecordedSex Assigned at UwxpdXgykqn04/28/2023 10:50 AM EDTLegal GxpBmedqo42/15/2023 8:06 PM EDTGender GhdzxlvoJrcqso26/28/2023 10:50 AM EDTSexual GwacsbxnpmnCjlcdcjv00/28/2023 10:50 AM EDTdocumented as of this encounter Plan of Treatment Not on file documented as of this encounter Procedures Procedure NamePriorityDate/TimeAssociated DiagnosisCommentsUS OB BPP W NON-AFNOXM9407/07/2023 8:02 AM EDT documented in this encounter Results * US OB BPP W NON-STRESS (07/07/2023 8:02 AM EDT)Anatomical Region LateralityModalityOtherSpecimen (Source)Anatomical Location / Laterality Collection Method / VolumeCollection TimeReceived Time07/07/2023 8:02 AM EDT Narrative 07/07/2023 8:04 AM EDT [facility] ?[address] ? [place] [address] ? Ultrasound Report ? Signed ? Patient: DEARTH,KASANDRA D ?MR#: [id number] ?? : 1995 ?Acct:[id number] ?? Age/Sex: 27 / F ?ADM Date: 07/06/23 ?? Loc: US ? Attending Dr: Ricardo Rodriguez D.O. ? Ordering Physician: Ricardo Rodriguez D.O. ?? Date of Service: 07/06/23 ?? Procedure(s): US OB BPP w non-stress ?? Accession Number(s): [id number] ? cc: Ricardo Rodriguez D.O.; Erik Garcia M.D. ? [facility] ? [address] ? [place] [address] ? Patient Name: ?? KASANDRA MACIAS ? MRN: [facility]:[id number] ? date: 1995 ?Sex: F ?? Assigned Patient Location: [facility] ?? Current Patient Location: ? Accession/Order Number: [id number] ?? Exam Date: 07/06/2023 ??19:06 ?Report Date: [...] 0804 ? DD/ 0802 ? TD/TT: ? Special Education Curriculum Specialist: Procedure Note Radiology, Radiologist, - 07/07/2023 [place] [address] Ultrasound Report Signed Patient: KASANDRA MACIAS DMR#: [id number] : 1995Acct:[id number] Age/Sex: 27 FADM Date: 07/06/23 Loc: US Attending Dr: Ricardo Rodriguez D.O. Ordering Physician: Ricardo Rodriguez D.O. Date of Service: 07/06/23 Procedure(s): US OB BPP w non-stress Accession Number(s): [id number] cc: Ricardo Rodriguez D.O.; Erik Garcia M.D. The [place] [id number] Patient Name: KASANDRA MACIAS MRN: [id number] date: 1995 Sex: F Assigned Patient Location: [facility] Current Patient Location: Accession/Order Number: [id number] Exam Date: 07/06/2023 19:06 Report Date: 07/07/2023 08:02 At the request of: RCIARDO RODRIGUEZ Procedure: US OB BPP w non-stress [...] Vela M.D. Signed By:07/07/23803 DD/ 1 TD/TT: Special Education Curriculum Specialist: Authorizing ProviderResult TypeResult StatusCorey Jennifer DOCLINISYNC IMAGINGFinal Result documented in this encounter Visit Diagnoses Not on filedocumented in this encounter Care Teams Team MemberRelationshipSpecialtyStart DateEnd Date Erik Garcia MD PCP - GeneralFamily Medicine/ Erik Garcia MD [address] [place] [address] PCP - GeneralFamily Medicine08/21/24documented as of this encounter
--- OUTSIDE RECORDS SUMMARY | 2025-01-31 08:58 | XMS_ITS | Encounter Summary ---
Author Organization [facility] Address [address] [place] [address] Care Team Providers Care Change Management Name Role Phone Erik Garcia MD Primary Care Provider [phone] Erik Garcia MD Primary Care Provider [phone] Encounter Details DateTypeDepartmentCare Team (Latest Contact Info)Hnjrpwjfqbe76/01/2025linisync Result Encounter [facility] External Department Unsolicited Ricardo Rodriguez DO [address] [place] [address] [place] [address] Social History Tobacco UseTypesPacks/DayYears UsedDateSmoking Tobacco: NeverAlcohol UseStandard Drinks/WeekCommentsYes0 (1 standard drink = 0.6 oz pure alcohol)caffeine: occasionalAUDIT-CAnswerDate RecordedQ1: How often do you have a drink containing alcohol?2-4 times a month01/28/2023Q2: How many drinks containing alcohol do you have on a typical day when you are drinking?1 or Q3: How often do you have six or more drinks on one occasion?Iijuil1401/28/2023CommentsUnknown Sex and Gender InformationValueDate RecordedSex Assigned at BirthFemale 11/22/2022 10:50 AM EDTLegal CzfVvfxjf95/15/2023 8:06 PM EDTGender Identity Azvevt6811/22/2022 10:50 AM EDTSexual HwdajtyaizaWieglnvb98/28/2023 10:50 AM EDT documented as of this encounter Plan of Treatment Not on file documented as of this encounter Procedures Procedure NamePriorityDate/TimeAssociated DiagnosisCommentsUS PELVIS W/ NMSXOEUHOCQU10/01/2025 3:32 AM EST documented in this encounter Results * US PELVIS W/ TRANSVAGINAL (03/28/2024 3:32 AM EST)Anatomical RegionLaterality ModalityOtherSpecimen (Source)Anatomical Location / LateralityCollection Method / VolumeCollection TimeReceived Time03/28/2024 3:32 AM EST Narrative 03/28/2024 3:35 AM EST [facility] ?[address] ? [place] [address] ? Ultrasound Report ? Signed ? Patient: DEARTH,KASANDRA D ?MR#: [id number] ?? : 1995 ?Acct:[id number] ?? Age/Sex: 28 / F ?ADM Date: 03/27/24 ?? Loc: US ? Attending Dr: Ricardo Rodriguez D.O. ? Ordering Physician: Ricardo Rodriguez D.O. ?? Date of Service: 03/27/24 ?? Procedure(s): US pelvis w/ transvaginal ?? Accession Number(s): [id number] ? cc: Ricardo Rodriguez D.O.; Erik Garcia M.D. ? [facility] ? [address] ? [place] [address] ? Patient [facility]: ?? [facility] ? MRN: [facility]:[id number] ? date: 1995 ?Sex: F ?? Assigned Patient Location: US ?? Current Patient Location: ? Accession/Order Number: [id number] ?? Exam Date: 03/27/2024 ??14:05 ?Report Date: [...] ?03/28/24334 ? DD/ 0332 ? TD/TT: ? Sales Driver: Procedure Note Radiology, Radiologist, MD - 03/28/2024 [place] [address] Ultrasound Report Signed Patient: KASANDRA MACIAS DMR#: [id number] : 1995Acct:[id number] Age/Sex: 28 / FADM Date: 03/27/24 Loc: US Attending Dr: Ricardo Rodriguez D.O. Ordering Physician: Ricardo Rodriguez D.O. Date of Service: 03/27/24 Procedure(s): US pelvis w/ transvaginal Accession Number(s): [id number] cc: Ricardo Rodriguez D.O.; Erik Garcia M.D. The [place] [id number] Patient Name: KASANDRA MACIAS MRN: [id number] date: 1995 Sex: F Assigned Patient Location: US Current Patient Location: Accession/Order Number: [id number] Exam Date: 03/27/2024 14:05 Report Date: 03/28/2024 [...] M.D. Signed By:03/28/24 0335 DD/ 0332 TD/TT: Sales Driver: Authorizing ProviderResult TypeResult StatusCorey Jennifer DOCLINISYNC IMAGINGFinal Result documented in this encounter Visit Diagnoses Not on filedocumented in this encounter Care Teams Team MemberRelationshipSpecialtyStart DateEnd Date Erik Garcia MD PCP - GeneralFamily Medicine Erik Garcia MD [address] [place] [phone] PCP - GeneralFamily Medicine08/21/24documented as of this encounter
--- OUTSIDE RECORDS SUMMARY | 2025-01-31 08:58 | XMS_ITS | Encounter Summary ---
Author Organization [facility] Address [address] [place] [address] Care Team Providers Care Product Blending Supervisor Name Role Phone Erik Garcia MD Primary Care Provider [phone] Erik Garcia MD Primary Care Provider [phone] Encounter Details DateTypeDepartmentCare Team (Latest Contact Info)Brkmciqxqfv50/14/2024Clinisync Result Encounter [facility] External Department Unsolicited Ricardo Rodriguez DO [address] [place] [address] [place] [address] Social History Tobacco UseTypesPacks/DayYears UsedDateSmoking Tobacco: NeverAlcohol UseStandard Drinks/WeekCommentsYes0 (1 standard drink = 0.6 oz pure alcohol)caffeine: occasionalAUDIT-CAnswerDate RecordedQ1: How often do you have a drink containing alcohol?2-4 times a month01/28/2023Q2: How many drinks containing alcohol do you have on a typical day when you are drinking?1 or Q3: How often do you have six or more drinks on one occasion?Crymbn9901/28/2023CommentsYesSex and Gender InformationValueDate RecordedSex Assigned at CuealOvvwub68/28/2023 10:50 AM EDTLegal HjfTynenw02/15/2023 8:06 PM EDTGender UioygrkwHojxkr26/28/2023 10:50 AM EDTSexual OdbomcupytnRjlgpeee87/28/2023 10:50 AM EDTdocumented as of this encounter Plan of Treatment Not on file documented as of this encounter Procedures Procedure NamePriorityDate/TimeAssociated DiagnosisCommentsUS OB BPP W NON-HVTEFR8308/09/2023 7:28 AM EDT documented in this encounter Results * US OB BPP W NON-STRESS (08/09/2023 7:28 AM EDT)Anatomical Region LateralityModalityOtherSpecimen (Source)Anatomical Location / Laterality Collection Method / VolumeCollection TimeReceived Time08/09/2023 7:28 AM EDT Narrative 08/09/2023 7:30 AM EDT [facility] ?[address] ? [place] [address] ? Ultrasound Report ? Signed ? Patient: DEARTH,KASANDRA D ?MR#: [id number] ?? : 1995 ?Acct:[id number] ?? Age/Sex: 27 / F ?ADM Date: 08/08/23 ?? Loc: US ? Attending Dr: Ricardo Rodriguez D.O. ? Ordering Physician: Ricardo Rodriguez D.O. ?? Date of Service: 08/08/23 ?? Procedure(s): US OB BPP w non-stress ?? Accession Number(s): [id number] ? cc: Ricardo Rodriguez D.O.; Erik Garcia M.D. ? [facility] ? [address] ? [place] [address] ? Patient Name: ?? KASANDRA MACIAS ? MRN: [facility]:[id number] ? date: 1995 ?Sex: F ?? Assigned Patient Location: US ?? Current Patient Location: ? Accession/Order Number: [id number] ?? Exam Date: 08/08/2023 ??18:00 ?Report Date: [...] 0730 ? DD/ 0728 ? TD/TT: ? Production Utility Worker: Procedure Note Radiology, Radiologist, - 08/09/2023 [place] [address] Ultrasound Report Signed Patient: KASANDRA MACIAS DMR#: [id number] : 1995Acct:[id number] Age/Sex: 27 / FADM Date: 08/08/23 Loc: US Attending Dr: Ricardo Rodriguez D.O. Ordering Physician: Ricardo Rodriguez D.O. Date of Service: 08/08/23 Procedure(s): US OB BPP w non-stress Accession Number(s): [id number] cc: Ricardo Rodriguez D.O.; Erik Garcia M.D. The [place] [id number] Patient Name: KASANDRA MACIAS MRN: [id number] date: 1995 Sex: F Assigned Patient Location: US Current Patient Location: Accession/Order Number: [id number] Exam Date: 08/08/2023 18:00 Report Date: 08/09/2023 [...] Vela M.D. Signed By:08/09/23729 DD/ 7 TD/TT: Production Utility Worker: Authorizing ProviderResult TypeResult StatusCorey Jennifer DOCLINISYNC IMAGINGFinal Result documented in this encounter Visit Diagnoses Not on filedocumented in this encounter Care Teams Team MemberRelationshipSpecialtyStart DateEnd Date Erik Garcia MD PCP - GeneralFamily Medicine/ Erik Garcia MD [address] [place] [phone] PCP - GeneralFamily Medicine08/21/24documented as of this encounter
--- OUTSIDE RECORDS SUMMARY | 2025-01-31 08:58 | XMS_ITS | Encounter Summary ---
Author Organization [facility] Address [address] [place] [address] Care Team Providers Care Maintenance Operator Name Role Phone Erik Garcia MD Primary Care Provider [phone] Erik Garcia MD Primary Care Provider [phone] Encounter Details DateTypeDepartmentCare Team (Latest Contact Info)Ygejgvgcmku95/07/2024Clinisync Result Encounter [facility] External Department Unsolicited Ricardo Rodriguez DO [address] [place] [address] [place] [address] Social History Tobacco UseTypesPacks/DayYears UsedDateSmoking Tobacco: NeverAlcohol UseStandard Drinks/WeekCommentsYes0 (1 standard drink = 0.6 oz pure alcohol)caffeine: occasionalAUDIT-CAnswerDate RecordedQ1: How often do you have a drink containing alcohol?2-4 times a month01/28/2023Q2: How many drinks containing alcohol do you have on a typical day when you are drinking?1 or Q3: How often do you have six or more drinks on one occasion?Csqcuk2001/28/2023CommentsYesSex and Gender InformationValueDate RecordedSex Assigned at RzrmaRxqzqm26/28/2023 10:50 AM EDTLegal LtxKjiogq25/15/2023 8:06 PM EDTGender WxyqjjbaCohhuk89/28/2023 10:50 AM EDTSexual RubjutqbmyiCzktrqkb47/28/2023 10:50 AM EDTdocumented as of this encounter Plan of Treatment Not on file documented as of this encounter Procedures Procedure NamePriorityDate/TimeAssociated DiagnosisCommentsUS OB BPP W NON-AKEHHI4808/02/2023 8:22 AM EDT documented in this encounter Results * US OB BPP W NON-STRESS (08/02/2023 8:22 AM EDT)Anatomical Region LateralityModalityOtherSpecimen (Source)Anatomical Location / Laterality Collection Method / VolumeCollection TimeReceived Time08/02/2023 8:22 AM EDT Narrative 08/02/2023 8:24 AM EDT [facility] ?[address] ? [place] [address] ? Ultrasound Report ? Signed ? Patient: DEARTH,KASANDRA D ?MR#: [id number] ?? : 1995 ?Acct:[id number] ?? Age/Sex: 27 / F ?ADM Date: 08/01/23 ?? Loc: US ? Attending Dr: Ricardo Rodriguez D.O. ? Ordering Physician: Ricardo Rodriguez D.O. ?? Date of Service: 08/01/23 ?? Procedure(s): US OB BPP w non-stress ?? Accession Number(s): [id number] ? cc: Ricardo Rodriguez D.O.; Erik Garcia M.D. ? [facility] ? [address] ? [place] [address] ? Patient Name: ?? KASANDRA MACIAS ? MRN: [facility]:[id number] ? date: 1995 ?Sex: F ?? Assigned Patient Location: ?? Current Patient Location: US ?? Accession/Order Number: [id number] ?? Exam Date: 08/01/2023 ??21:30 ?Report Date: [...] ?08/02/23823 ? DD/ 0822 ? TD/TT: ? Milk Processing Worker: Procedure Note Radiology, Radiologist, - 08/02/2023 [place] [address] Ultrasound Report Signed Patient: KASANDRA MACIAS DMR#: [id number] : 1995Acct:[id number] Age/Sex: Date: 08/01/23 Loc: US Attending Dr: Ricardo Rodriguez D.O. Ordering Physician: Ricardo Rodriguez D.O. Date of Service: 08/01/23 Procedure(s): US OB BPP w non-stress Accession Number(s): [id number] cc: Ricardo Rodriguez D.O.; Erik Garcia M.D. The [place] [id number] Patient Name: KASANDRA MACIAS MRN: [id number] date: 1995 Sex: F Assigned Patient Location: Current Patient Location: US Accession/Order Number: [id number] Exam Date: 08/01/2023 21:30 Report Date: 08/02/2023 [...] Vela M.D. Signed By:08/02/23823 DD/ 1 TD/TT: Milk Processing Worker: Authorizing ProviderResult TypeResult StatusCorey Jennifer DOCLINISYNC IMAGINGFinal Result documented in this encounter Visit Diagnoses Not on filedocumented in this encounter Care Teams Team MemberRelationshipSpecialtyStart DateEnd Date Erik Garcia MD PCP - GeneralFamily Medicine/ [place] [address] [place] [phone] PCP - GeneralFamily Medicine08/21/24documented as of this encounter
--- OUTSIDE RECORDS SUMMARY | 2025-01-31 08:58 | XMS_ITS | Encounter Summary ---
Author Organization [facility] Address [address] [place] [address] Care Team Providers Care Circuit Rider Name Role Phone Erik Garcia MD Primary Care Provider [phone] Erik Garcia MD Primary Care Provider [phone] Encounter Details DateTypeDepartmentCare Team (Latest Contact Info)Puypobxmwij49/05/2024Clinisync Result Encounter [facility] External Department Unsolicited Ricardo Leggett DO [address] [place] [address] [place] [address] Social History Tobacco UseTypesPacks/DayYears UsedDateSmoking Tobacco: NeverAlcohol UseStandard Drinks/WeekCommentsYes0 (1 standard drink = 0.6 oz pure alcohol)caffeine: occasionalAUDIT-CAnswerDate RecordedQ1: How often do you have a drink containing alcohol?2-4 times a month01/28/2023Q2: How many drinks containing alcohol do you have on a typical day when you are drinking?1 or Q3: How often do you have six or more drinks on one occasion?Dmhnjh1601/28/2023CommentsYesSex and Gender InformationValueDate RecordedSex Assigned at MtoboJkhdco91/28/2023 10:50 AM EDTLegal UtxDijfpk19/15/2023 8:06 PM EDTGender YwmevhzqSzglup60/28/2023 10:50 AM EDTSexual BjtevodaiaiNrqlibpr81/28/2023 10:50 AM EDTdocumented as of this encounter Plan of Treatment Not on file documented as of this encounter Procedures Procedure NamePriorityDate/TimeAssociated DiagnosisCommentsUS OB TRANSVAGINAL 04/01/2023 7:16 AM EST documented in this encounter Results * US OB TRANSVAGINAL (04/01/2023 7:16 AM EST)Anatomical RegionLateralityModality OtherSpecimen (Source)Anatomical Location / LateralityCollection Method / VolumeCollection TimeReceived Time04/01/2023 7:16 AM EST Narrative 04/01/2023 7:19 AM EST [facility] ?[address] ? [place] [address] ? Ultrasound Report ? Signed ? Patient: DEARTH,KASANDRA D ?MR#: [id number] ?? : 1995 ?Acct:[id number] ?? Age/Sex: 27 / F ?ADM Date: 03/31/23 ?? Loc: US ? Attending Dr: Ricardo Leggett D.O. ? Ordering Physician: Ricardo Leggett D.O. ?? Date of Service: 03/31/23 ?? Procedure(s): US OB transvaginal ?? Accession Number(s): [id number] ? cc: Ricardo Leggett D.O.; rEik Garcia M.D. ? [facility] ? [facility] ? [place] [address] ? Patient Name: ?? KASANDRA COE ? MRN: [facility]:[id number] ? date: 1995 ?Sex: F ?? Assigned Patient Location: US ?? Current Patient Location: ? Accession/Order Number: [id number] ?? Exam Date: 03/31/2023 ??19:37 ?Report Date: [...] ?04/01/23718 ? DD/ 5 ? TD/TT: ? Coin Box Inspector: Procedure Note Radiology, Radiologist, MD - 06/01/2023 [place] [address] Ultrasound Report Signed Patient: KASANDRA MACIAS [facility]#: [id number] : 1995Acct:[id number] Age/Sex: 27 / FADM Date: 03/31/23 Loc: US Attending Dr: Ricardo Leggett D.O. Ordering Physician: Ricardo Leggett D.O. Date of Service: 03/31/23 Procedure(s): US OB transvaginal Accession Number(s): [id number] cc: Ricardo Leggett D.O.; Erik Garcia M.D. [place] [id number] Patient Name: KASANDRA MACIAS MRN: [id number] date: 1995 Sex: F Assigned Patient Location: US Current Patient Location: Accession/Order Number: [id number] Exam Date: 03/31/2023 19:37 Report Date: 04/01/2023 [...] Hernández M.D. Signed By:04/01/23718 DD/ 5 TD/TT: Coin Box Inspector: Authorizing ProviderResult TypeResult StatusCorey Jennifer DOCLINISYNC IMAGINGFinal Result documented in this encounter Visit Diagnoses Not on filedocumented in this encounter Care Teams Team MemberRelationshipSpecialtyStart DateEnd Date Erik Garcia MD PCP - GeneralFamily Medicine/ Erik Garcia MD [address] [place] [phone] PCP - GeneralFamily Medicine08/21/24documented as of this encounter
--- NOTE | 2025-01-31 09:00 | US_ITS ---
The [address] [address] Patient Name: ESTER BRADFORD MRN: [facility]:[id number] date: 1995 Sex: F Assigned Patient Location: US Current Patient Location: US Accession/Order Number: [id number] Exam Date: 01/31/2025 09:01 Report Date: 01/31/2025 11:10 At the request of: IRON AVILA MD Procedure: US renal BI BILATERAL RENAL AND BLADDER ULTRASOUND CLINICAL HISTORY: Dehydration. Recent urinary tract infection, without improvement. Flank and pelvic pain, greater on the left. COMPARISON: CT 01/18/2025 Estimation of renal size is approximately 11.3 cm on the right and 12.4 cm on the left. No shadowing calculi or hydronephrosis are identified. No renal mass lesions were imaged. There is no perinephric fluid. The urinary bladder is partially distended with a volume of 272 mL. No contour or intraluminal abnormalities are seen. A cystic area is seen superior to the urinary bladder measuring 2.0 x 2.6 x 3.0 cm. This might correlate with a right adnexal cyst seen on the comparison CT. US/US renal BI IMPRESSION: NO OBSTRUCTIVE UROPATHY. RIGHT ADNEXAL CYST. Impression dictated by: Melissa Butler M.D. 01/31/2025 11:10 AM Dictation Location: [place] [address] Electronically authenticated by: [id number] Y Date: 01/31/2025 11:10
--- OUTSIDE RECORDS SUMMARY | 2025-01-31 09:02 | XMS_ITS | CCD ---
Author Organization [facility] Cl[facility] Care Team Providers Care Medical Assisting Instructor Name Role Phone Lydia Dudley Unavailable Mohini Martinez Unavailable JENNIFER ., DR SILVA Admitting Unavailable JENNIFER ., DR SILAV Attending Unavailable HOY ., DR PERDUE Primary Care Unavailable PANNA MARIA, DR DUDLEY Emanuel Consulting Unavailable JENNIFER ., DR SILVA Consulting Unavailable LEANDRO, JAMIL Admitting Unavailable JAMIL REEVES Attending Unavailable HOY ., DR PERDUE Primary Care Unavailable HOY ., DR PERDUE Consulting Unavailable DUDLEY LANE Consulting Unavailable HOY ., DR PERDUE Admitting Unavailable HOY ., DR PERDUE Attending Unavailable HOY ., DR PERDUE Primary Care Unavailable HOY ., DR PERDUE Consulting Unavailable PANNA MARIA, DR DUDLEY Emanuel Consulting Unavailable JENNIFER ., [...] Unavailable HOY ., DR PERDUE Consulting Unavailable Judith Machuca Consulting Unavailable JENNIFER ., DR SILVA [...] Unavailable JENNIFER ., DR SILVA Consulting Unavailable Judith Machuca Consulting Unavailable JENNIFER ., DR SILVA Admitting Unavailable JENNIFER ., DR SILVA Attending Unavailable HOY ., DR PERDUE Primary Care Unavailable JENNIFER ., DR SILVA Admitting Unavailable JENNIFER ., DR SILVA Attending Unavailable HOY ., DR PERDUE Primary Care Unavailable Iron Garcia MD Primary Care Provider [phone] Iron Garcia MD Primary Care Provider [phone] Hannah David DO Attending Provider [phone] Marker, Hannah Dahl Admitting Unavailable Marker, Hannah Dahl Attending Unavailable Jennifer, Wisam Admitting Unavailable Jennifer, Wisam Attending Unavailable JENNIFER, WISAM Attending Unavailable JOSI PRESCOTT Attending Unavailable JENNIFER, WISAM Attending Unavailable JENNIFER, WISAM Attending Unavailable JENNIFER, WISAM Attending Unavailable JOSI PRESCOTT Attending Unavailable Iron Garcia MD Primary Care Provider [phone] Iron Garcia MD Primary Care Provider [phone] Iron Garcia MD Attending Provider [phone] Medications Current Medications MedicationDrug Class(es)DatesSig (Normalized)Sig (Original)[id number] 200 actuat albuterol 0.09 mg/actuat metered dose inhaler (1 source)beta2-Adrenergic AgonistStart: 74-82-7896yqyJVQufr (1 source)levocetirizine (2 sources)Histamine-1 Receptor AntagonistXyzal ActivemedroxyPROGESTERone acetate 10 mg oral tablet (8 sources)ProgestinStart: 03-01-2024 End: 39-18-2761kuxe 1 tablet by mouth once dailymedroxyPROGESTERone (Provera) 10 MG tablet Indications: Abnormal vaginal bleeding Take 1 tablet (10mg) by mouth Daily for 14 days 14 tablet 03/01/2024 08/21/2024 UvrpygilolsjBvwvck29-Zmsh Fum- Folic Ac-Om3 (One A Day Women's Dha) 28 mg iron- 800 mcg combo pack (2 sources)Start: 74-73-9468Jutflg41-Iron Fum-Folic Ac-Om3 (One A Day Women's Dha) 28 mg iron- 800 mcg combo pack Active PKG PO May 22, 2023 1:00amStart: 07-74-5932Bwsahv00-Iron Fum-Folic Ac-Om3 (One A Day Women's Dha) 28 mg iron- 800 mcg combo pack Active PKG PO May 22, 2023 12:00amPrenatal 75-Iron Jbj-Jhnmb-Ix8 (One A Day Women's Dha) 28 mg iron- 800 mcg combo pack (1 source)Start: 76-82-1130Gtwydejpib (1 source)Serotonin Reuptake InhibitorVitamin D3 (2 sources)Vitamin D3 Active Completed/Discontinued Medications MedicationDrug Class(es)DatesSig (Normalized)Sig (Original)24 hr buPROPion hydrochloride 150 mg extended release oral tablet (3 sources)AminoketoneStart: 11-17-2022 End: 03-76-7129lggg 1 tablet by mouth every twenty-four hours in the morning buPROPion XL (Wellbutrin XL) 150 MG 24 hr tablet Take 150 mg by mouth in the morning. 11/17/2022 06/13/2023 Rdqwkdofulzf11 hr desvenlafaxine succinate 50 mg extended release oral tablet (5 sources)Serotonin and Norepinephrine Reuptake InhibitorStart: 05-11-2017 End: 45-15-6600yvwz 1 tablet by mouth once daily, then take 1 tablet by mouth every twenty-four hoursDesvenlafaxine Succinate (Pristiq) 50 mg tablet extended release 24 hr Discontinued 50 MG PO Daily May 11, 2017 12:00am May 22, 2023 9:32amdicyclomine hydrochloride 20 mg oral tablet (2 sources)AnticholinergicStart: 10-56-7556tbaf 1 tablet by mouth every twelve hoursfamotidine 20 mg oral tablet (1 source)Histamine-2 Receptor Antagonist End: 99-02-7584qqwf 1 tablet by mouth once dailyfamotidine (Pepcid) 20 MG tablet Take 20 mg by mouth Daily 07/28/2023 Discontinued1 ml galcanezumab-gnlm 120 mg/ml auto-injector (3 sources) End: 43-01-9329guevjnnzpprx (Emgality) 120 MG/ML auto-injector Emgality 06/13/2023 DiscontinuedlevoFLOXacin 500 mg oral tablet (3 sources)Quinolone AntimicrobialStart: 07-27-2022 End: 62-01-5575zuak 1 tablet by mouth in the morninglevoFLOXacin (Levaquin) 500 MG tablet Take 1 tablet by mouth in the morning. 07/27/2022 06/13/2023 D iscontinuedlinaclotide 0.072 mg oral capsule (5 sources)Guanylate Cyclase-C AgonistStart: 05-11-2017 End: 50-35-5222rdkm 1 capsule by mouth once dailyLinaclotide (Linzess) 72 mcg capsule Discontinued 72 MCG PO Daily May 11, 2017 12:00am May 12, 2017 7:46amLinzess 72 MCG Oral for 30 Not-Takinglubiprostone 0.008 mg oral capsule (5 sources)Chloride Channel ActivatorStart: 05-12-2017 End: 24-26-7023mopy 1 capsule by mouth twice dailyLubiprostone (Amitiza) 8 mcg Capsule Discontinued 8 MCG PO Twice daily May 12, 2017 12:00am May 22, 2023 9:32amtake 1 capsule by mouth every twelve hoursmagnesium oxide 400 mg oral capsule (3 sources)Start: 02-22-2023 End: 16-28-9034xtzb 1 capsule by mouth in the morningmagnesium oxide 400 MG capsule Indications: Cluster headache, not intractable, unspecified chronicity pattern Take 1 capsule (400 mg) by mouth in the morning. 30 capsule 11 02/22/2023 06/13/2023 Discontinuedosmotic 24 hr metFORMIN hydrochloride 500 mg extended release oral tablet (3 sources)Biguanide End: 25-59-9227gwoRMKHSD, OSM, (Fortamet) 500 MG 24 hr tablet metFORMIN HCl ER 06/13/2023 DiscontinuedmetFORMIN, OSM, (Fortamet) 500 MG 24 hr tablet metFORMIN HCl ER 0 Activeondansetron 4 mg oral tablet (3 sources)Serotonin-3 Receptor AntagonistStart: 02-19-2023 End: 26-27-5952scpd 1 tablet by mouth twice daily as needed for nausea ondansetron (Zofran) 4 MG tablet TAKE 1 TABLET BY MOUTH TWICE DAILY NEEDED FOR NAUSEA / Discontinuedpromethazine hydrochloride 25 mg oral tablet (3 sources)PhenothiazineStart: 02-24-2023 End: 1993adtl 1 tablet by mouth every six hours as neededpromethazine (Phenergan) 25 MG tablet 1 tablet as needed Orally q6h for 30 02/24/2023 06/13/2023 DiscontinuedSUMAtriptan 100 mg oral tablet (3 sources)Serotonin-1b and Serotonin-1d Receptor Agonist End: 55-00-7557RUMZtddudii (Imitrex) 100 MG tablet TAKE 1 TABLET AT LEAST 2 HOURS BETWEEN DOSES NEEDED TWICE A DAY 06/13/2023 Discontinued Problems Active Problems Problem ClassificationProblemDateDocumented DateEpisodic/ChronicAbdominal pain (10 sources)Abdominal pain; Translations: [Unspecified abdominal pain]Onset: 66-38-5101JtbmhfurXzbjvt (2 sources)Exacerbation of intermittent asthma; Translations: [Mild intermittent asthma with (acute) exacerbation]Onset: 01-27-2021 Resolved: 58-90-7206YcuydkdBqbiuodhwlnyr (1 source)Endometriosis, unspecified; Translations: [ENDOMETRIOSIS UNSPECIFIED] Onset: 04-03-4420ZiuaapzJdzjny infertility (4 sources)Female infertility associated with anovulation; Translations: [FE INFERTILITY ASSOC W/ANOVULATION]Onset: 63-18-6535NgtlqfmCjggxtitzirxq symptoms and ill-defined conditions (2 sources)Stoma finding; Translations: [Unspecified cystostomy status] 60-25-4177WtlkbwuDihqjzmc; including migraine (5 sources)Migraine, unspecified, not intractable, without status migrainosus; Translations: [MIGRAINE UNS NOTINTRACT W/O SM]Onset: 96-49-3004QtaeaecUlmxfedlk disorders (11 sources)Amenorrhea, unspecified; Translations: [Irregular menstruation, unspecified]Onset: 96-90-7382SszpendLsabt aftercare (2 sources)Postoperative visit; Translations: [Encounter for other specified surgical aftercare]16-94-5524PxivgpegNevsj endocrine disorders (20 sources)Hypoglycemia; Translations: [Hypoglycemia, unspecified]Onset: 154644-56-0410PzqqudlTfejn endocrine disorders (2 sources)Polycystic ovary syndrome; Translations: [Polycystic ovarian syndrome]48-82-0867WfdlkimKrcng female genital disorders (2 sources)Abnormal vaginal bleeding; Translations: [Abnormal uterine and vaginal bleeding, unspecified]74-77-7354WnmuczjNlygd female genital disorders (4 sources)Noninflammatory disorder of ovary, fallopian tube and broad ligament, unspecified; Translations: [OTH NONINFL D/O OVARY TUBE AND BRD LIG]Onset: 24-03-1954PnzxqvhtOauya gastrointestinal disorders (2 sources)Irritable bowel syndrome characterized by constipation; Translations: [Irritable bowel syndrome with constipation]ChronicOther gastrointestinal disorders (2 sources)Irritable bowel syndrome; Translations: [Mixed irritable bowel syndrome]ChronicOther gastrointestinal disorders (1 source)Mixed irritable bowel syndrome; Translations: [Irritable bowel syndrome with both constipation and diarrhea K58.2]Onset: 12-22-2020 Resolved: 21-01-8152FqprbdkAqzry gastrointestinal disorders (3 sources)Altered bowel function; Translations: [Change in bowel habit] 83-29-9795ColenfutGrtzfye on above:Problem List clean-up per request of Phys. EHR CmteOther nutritional; endocrine; and metabolic disorders (5 sources)Metabolic syndrome; Translations: [METABOLIC SYNDROME]Onset: 98-12-4237ScvybfpAuowc nutritional; endocrine; and metabolic disorders (1 source)Weight loss; Translations: [Abnormal weight loss]81-08-5144Utqdgczc Other nutritional; endocrine; and metabolic disorders (2 sources)Weight decreased; Translations: [Abnormal weight loss]03-09-2023 EpisodicComment on above:Problem List clean-up per request of Phys. EHR Cmte Other screening for suspected conditions (not mental disorders or infectious disease) (6 sources)Other specified abnormal findings of blood chemistry; Translations: [Patient encounter status]Onset: 56-37-0247ChbhmvfxLbjbfib cyst (11 sources)Unspecified ovarian cyst, left side; Translations: [Other ovarian cyst, right side]Onset: 69-86-0021QcpvtbjbPkjtuaqc codes; unclassified (2 sources)History of laparoscopy; Translations: [Other specified postprocedural states]88-03-6519VjjzsahhGwaafpbqlsh; intervertebral disc disorders; other back problems (4 sources)Other cervical disc degeneration, unspecified cervical region; Translations: [OTH CERV DISC DEGENERATION UNS CERV]Onset: 23-43-2618Bzcifey Unclassified (4 sources)CONTACT W/AND (SUSP) EXPOS COVID-19; Translations: [CONTACT W/AND (SUSP) EXPOS COVID-19]Onset: 02-12-2022 Past or Other Problems Problem ClassificationProblemDateDocumented DateEpisodic/ChronicAcute bronchitis (5 sources)Acute bronchitis, unspecified; Translations: [ACUTE BRONCHITIS UNSPECIFIED]Onset: 76-43-0940OmodllisJwojmzxqon and other anemia (20 sources)Anemia; Translations: [Anemia, unspecified]Onset: 05-26-2023 96-50-6875FfuwjhleYuxfxhnbpaiqp and screening for infectious disease (1 source)Contact with and (suspected) exposure to other viral communicable diseasesOnset: 01-27-2021 Resolved: 91-46-7959GothvsfbGkfkar and vomiting (2 sources)Nausea; Translations: [Nausea]EpisodicOther gastrointestinal disorders (2 sources)Constipation alternates with diarrhea; Translations: [Other specified symptoms and signs involving the digestive system and abdomen]EpisodicOther gastrointestinal disorders (4 sources)Abdominal distension (gaseous); Translations: [ABDOMINAL DISTENSION GASEOUS]Onset: 27-70-6317NpxtltxeBetkd and delivery including normal (20 sources)Second trimester ; Translations: [Encounter for supervision of normal , unspecified, second trimester]Onset: 988028-01-3857 EpisodicOther upper respiratory infections (4 sources)Acute pharyngitis, unspecified; Translations: [ACUTE PHARYNGITIS UNSPECIFIED]Onset: 97-94-2813CagyrbjfBlyedezypeddie and other problems of amniotic cavity (20 sources)Abnormal amniotic fluid; Translations: [Polyhydramnios, unspecified trimester, not applicable or unspecified]Onset: 244659-56-8280Nncjpfoe Residual codes; unclassified (20 sources)Gestation period, 32 weeks; Translations: [32 weeks gestation of ]Onset: 070725-33-4297KzcyowkzQfzntvexncoi (1 source)CONTACT W/AND (SUSP) EXPOS COVID-19; Translations: [CONTACT W/AND (SUSP) EXPOS COVID-19]Onset: 04-01-2022 Results Test NameValueInterpretationReference RangeFacilityALL CBC WITH AUTO DIFFon 90-71-4072QUVZBDCXT ABSOLUTE VMUX1KOBV HealthcareBasophils/100 WBC (Bld)0.3 %0.2 - 2.0 %NOM HealthcareEosinophils/100 WBC (Bld)1.7 %0.9 - 7.0 %[facility] Erythrocyte distribution width (RBC) [Ratio]13 %11.0 - 15.0 %[facility] Hematocrit (Bld) [Volume fraction]37.4 %36.0 - 48.0 %[facility] HospitalHemoglobin (Bld) [Mass/Vol]12.4 g/dL12.0 - 16.0 g/dLLee's Summit HospitalIMMATURE GRANULOCYTES ABS AUTO0.03NOMS [facility] HospitalImmature granulocytes/100 WBC (Bld)0.3 %0.0 - 0.5 % [facility] HospitalInterpretation and review of laboratory resultsAbnormalNOSaint Luke's North Hospital–SmithvilleLYMPHOCYTES ABSOLUTE AUTO2.5NOMS [facility] HospitalLymphocytes/100 WBC (Bld) 22.6 %20.5 - 60.0 %[facility] HospitalH (RBC) [Entitic mass]29.6 pg26.7 - 34.0 pg [facility] HospitalMCHC (RBC) [Mass/Vol]33.2 g/dL29.9 - 35.2 g/dLLee's Summit HospitalMCV (RBC) [Entitic vol]89.3 fL81.0 - 99.0 fLLee's Summit HospitalMONOCYTES ABSOLUTE AUTO 1.1HighNOMS HealthcareMonocytes/100 WBC (Bld)9.8 %1.7 - 12.0 %[facility] NEUTROPHILS ABSOLUTE AUTO7.2HighNOHI HealthcareNeutrophils/100 WBC (Bld)65.3 % 43.0 - 75.0 %[facility] HospitalPlatelet mean volume (Bld) [Entitic vol]9.3 fLLow9.5 - 13.5 fLLee's Summit HospitalTBH EO #0.2NOMS HealthcareTB [id number] HealthcareTB RBC4.19LowNOMS HealthcareCHILDR[facility] [id number] HealthcareCLINISYNCNKARI Memorial Hospitaln 09-13-2024 Specimen: [id number] Received: 09/13/24 Status: LESLEY Jones Num: [id number] Spec Type: Cytology Subm Dr: Wisam Rodriguez Tissues: A CYST FLUID (LT OVARY FLUID) Procedures: HE/2, Gross/Micro L4, Cyto Prepstain, PAPSTN Age/ Patient Sex Location Account Attending Physician Kasandra Macias 28/F LABELL [id number] Wisam Rodriguez SPEC NUM: [id number] RECD: 09/13/24 STATUS: LESLEY JONES NUM: [id number] BETHEL: 09/13/[address]: Wisam Rodriguez ENTERED: 09/13/[address] [facility] [address]: Shalini,Lab SPEC TYPE: Cytology DEPT: [facility] ENTERED BY: [id number] RECV BY: [id number] ORDERED: HE/2, Gross/Micro L4, Cyto Prepstain, PAPSTN [...] block preparations are prepared for microscopic examination. (/wa) Microscopic Description Microscopic examination is performed. CPT Codes 55102, 42098 Specimen: [id number] Received: 09/13/24 Status: LESLEY Tevin Num: [id number] Spec Type: Cytology Subm Dr: Wisam Rodriguez Tissues: A CYST FLUID (LT OVARY FLUID) Procedures: HE/2, Gross/Micro L4, Cyto Prepstain, PAPSTN Patient: Kasandra Macias [id number] (Continued) Signed (signature on file) Héctor Valverde MD 09/14/24 1017Normal The [facility] Physician GroupALL LDHon 77-62-2822WLD [Catalytic activity/Vol]188 U/L81 - 234 U/LNOMS HealthcareCLINISYNCNOMS HealthcareUrine Cultureon 08-15-2024 Bacteria identified Cx Nom (U)<9,000 colonies/ml mixed bacterial skin contaminants 2 Days PERFORMED BY: [facility] [address] [place] [address] PATHOLOGIST BOX LINING MACHINE FEEDER GHAZAL TEIXEIRA M.D.NormalAdventhealth Winter Garden Physician GroupComment on above: Performed By: #### CUU #### [facility] [address] [place] [address] USAALL CBC WITH AUTO DIFFon 90-62-0234SUKWPCLGE ABSOLUTE AUTO 0NOMS HealthcareBasophils/100 WBC (Bld)0.5 %0.2 - 2.0 %NOMS Healthcare Eosinophils/100 WBC (Bld)2.6 %0.9 - 7.0 %NOMS HealthcareErythrocyte distribution width (RBC) [Ratio]13.3 %11.0 - 15.0 %NOMS HealthcareHematocrit (Bld) [Volume fraction]39.2 %36.0 - 48.0 %[facility] HospitalHemoglobin (Bld) [Mass/Vol]12.8 g/dL 12.0 - 16.0 g/dLLee's Summit HospitalIMMATURE GRANULOCYTES ABS AUTO0.02NOMS [facility] Immature granulocytes/100 WBC (Bld)0.3 %0.0 - 0.5 %NOM HealthcareInterpretation and review of laboratory resultsAbnormalNOHI HealthcareLYMPHOCYTES ABSOLUTE AUTO1.7NOSaint Luke's North Hospital–SmithvilleLymphocytes/100 WBC (Bld)27.1 %20.5 - 60.0 %[facility] HospitalH (RBC) [Entitic mass]29.4 pg26.7 - 34.0 pgNOCedar County Memorial HospitalHC (RBC) [Mass/Vol]32.7 g/dL29.9 - 35.2 g/dLBarnes-Jewish HospitalV (RBC) [Entitic vol]89.9 fL 81.0 - 99.0 fLLee's Summit HospitalMONOCYTES ABSOLUTE AUTO0.6NOSaint Luke's [facility] Hospital–[facility]ville Monocytes/100 WBC (Bld)9.9 %1.7 - 12.0 %[facility] HospitalNEUTROPHILS ABSOLUTE AUTO 3.7NOMS [facility] HospitalNeutrophils/100 WBC (Bld)59.6 %43.0 - 75.0 %[facility] Platelet mean volume (Bld) [Entitic vol]8.9 fLLow9.5 - 13.5 fLLee's Summit HospitalTB EO #0.2NOMS HealthcareTBH [id number] [facility] HospitalTB RBC4.36NOMS [facility] HospitalTB WBC 6.2NOMS HealthcareCLINISYNCNOMS HealthcareUS PELVIS W/ TRANSVAGINALon 03-28-2024 [place] [address] Ultrasound Report Signed Patient: KASANDRA MACIAS MR#: [id number] : 1995 Acct:[id number] Age/Sex: 28 / F ADM Date: 03/27/24 Loc: US Attending Dr: Wisam Rodriguez D.O. Ordering Physician: Wiasm Rodriguez D.O. Date of Service: 03/27/24 Procedure(s): US pelvis w/ transvaginal Accession Number(s): [id number] cc: Wisam Rodriguez D.O.; Iron Garcia M.D. The [place] [address] Patient Name: KASANDRA MACIAS MRN: [facility]:[id number] date: 1995 Sex: F Assigned Patient Location: Current Patient Location: Accession/Order Number: [id number] Exam Date: 03/27/2024 14:05 Report Date: 03/28/2024 03:32 At the request of: WISAM RODRIGUEZ Procedure: US pelvis w/ transvaginal EXAMINATION: [...] account for patient's symptoms. Electronically authenticated by: JUDITH MACHUCA Date: 03/28/2024 03:32 Dictated By: Judith Machuca M.D. Signed By: 03/28/24334 DD/ 1 TD/TT: Batch Room Technician:CARYHRadiology, Radiologist, - 03/28/2024 [place] [address] Ultrasound Report Signed Patient: KASANDRA MACIAS MR#: [id number] : 1995 Acct:[id number] Age/Sex: 28 / F ADM Date: 03/27/24 Loc: US Attending Dr: Wisam Rodriguez D.O. Ordering Physician: Wisam Rodriguez D.O. Date of Service: 03/27/24 Procedure(s): US pelvis w/ transvaginal Accession Number(s): [id number] cc: Wisam Rodriguez D.O.; Iron Garcia M.D. [place] [id number] Patient Name: KASANDRA MACIAS MRN: [id number] date: 1995 Sex: F Assigned Patient Location: US Current Patient Location: Accession/Order Number: [id number] Exam Date: 03/27/2024 14:05 Report Date: 03/28/2024 03:32 At the request of: WISAM RODRIGUEZ Procedure: US pelvis w/ transvaginal EXAMINATION: [...] account for patient's symptoms. Electronically authenticated by: JUDITH MACHUCA Date: 03/28/2024 03:32 Dictated By: Judith Machuca M.D. Signed By: 03/28/24334 DD/ 1 TD/TT: Batch Room Technician: PAL HealthcareRadiology Study observation (narrative)NOMS HealthcareUS PELVIS W/ TRANSVAGINALOrdered By: Radiologist Radiology on 92-61-6104HHYD [employer] Work Phone: us OB BPP W NON-STRESSon [phone] [phone] Ultrasound Report Signed Patient: KASANDRA MACIAS MR#: [id number] : 1995 Acct:[id number] Age/Sex: 27 / F ADM Date: 08/08/23 Loc: US Attending Dr: Wisam Rodriguez D.O. Ordering Physician: Wisam Rodriguez D.O. Date of Service: 08/08/23 Procedure(s): US OB BPP w non-stress Accession Number(s): [id number] cc: Wisam Rodriguez D.O.; Iron Garcia M.D. [address] [address] Patient Name: KASANDRA MACIAS MRN: [facility]:[id number] date: 1995 Sex: F Assigned Patient Location: US Current Patient Location: Accession/Order Number: [id number] Exam Date: 08/08/2023 18:00 Report Date: 08/09/2023 07:28 At the request of: WISAM RODRIGUEZ Procedure: [...] Normal amniotic fluid index. Electronically authenticated by: JUDITH MACHUCA Date: 08/09/2023 07:28 Dictated By: Judith Machuca M.D. Signed By: 08/09/23729 DD/ 7 TD/TT: Batch Room Technician:CARYHRadiologoumou, Radiologist, - 08/09/2023 [place] [address] Ultrasound Report Signed Patient: KASANDRA MACIAS MR#: [id number] : 1995 Acct:[id number] Age/Sex: 27 / F ADM Date: 08/08/23 Loc: US Attending Dr: Wisam Rodriguez D.O. Ordering Physician: Wisam Rodriguez D.O. Date of Service: 08/08/23 Procedure(s): US OB BPP w non-stress Accession Number(s): [id number] cc: Wisam Rodriguez D.O.; Iron Garcia M.D. The [place] [address] Patient Name: KASANDRA MACIAS MRN: [id number] date: 1995 Sex: F Assigned Patient Location: US Current Patient Location: Accession/Order Number: [id number] Exam Date: 08/08/2023 18:00 Report Date: 08/09/2023 07:28 At the request of: WISAM RODRIGUEZ Procedure: [...] Normal amniotic fluid index. Electronically authenticated by: JUDITH MACHUCA Date: 08/09/2023 07:28 Dictated By: Judith Machuca M.D. Signed By: 08/09/2330 DD/ 7 TD/TT: Batch Room Technician: PAL HealthcareRadiology Study observation (narrative)NOMS HealthcareUS OB BPP W NON-STRESSOrdered By: Radiologist Radiology on 72-16-9040FPRH [employer] Work Phone: us OB BPP W NON-STRESSon [phone] [address] Ultrasound Report Signed Patient: KASANDRA MACIAS MR#: [id number] : 1995 Acct:[id number] Age/Sex: 27 / F ADM Date: 08/01/23 Loc: US Attending Dr: Wisam Rodriguez D.O. Ordering Physician: Wisam Rodriguez D.O. Date of Service: 08/01/23 Procedure(s): US OB BPP w non-stress Accession Number(s): [id number] cc: Wisam Rodriguez D.O.; Iron Garcia M.D. [address] [address] Patient Name: KASANDRA MACIAS MRN: [facility]:[id number] date: 1995 Sex: F Assigned Patient Location: US Current Patient Location: US Accession/Order Number: [id number] Exam Date: 08/01/2023 21:30 Report Date: 08/02/2023 08:22 At the request of: WISAM RODRIGUEZ Procedure: [...] biophysical profile score 8.0. Electronically authenticated by: JUDITH MACHUCA Date: 08/02/2023 08:22 Dictated By: Judith Machuca M.D. Signed By: 08/02/23823 DD/ 1 TD/TT: Batch Room Technician:MILESadiologoumou, Radiologist, - 08/02/2023 [place] [address] Ultrasound Report Signed Patient: KASANDRA MACIAS MR#: [id number] : 1995 Acct:[id number] Age/Sex: 27 / F ADM Date: 08/01/23 Loc: US Attending Dr: Wisam Rodriguez D.O. Ordering Physician: Wisam Rodriguez D.O. Date of Service: 08/01/23 Procedure(s): US OB BPP w non-stress Accession Number(s): [id number] cc: Wisam Rodriguez D.O.; Iron Garcia M.D. The [place] [address] Patient Name: KASANDRA MACIAS MRN: [id number] date: 1995 Sex: F Assigned Patient Location: US Current Patient Location: US Accession/Order Number: [id number] Exam Date: 08/01/2023 21:30 Report Date: 08/02/2023 08:22 At the request of: WISAM RODRIGUEZ Procedure: [...] biophysical profile score 8.0. Electronically authenticated by: JUDITH MACHUCA Date: 08/02/2023 08:22 Dictated By: Judith Machuca M.D. Signed By: 08/02/23823 DD/ 1 TD/TT: Batch Room Technician: PAL FlowersRadiology Study observation (narrative)NOMTimoteo HealthcareUS OB BPP W NON-STRESSOrdered By: Radiologist Radiology on 32-60-2011YNXO Healthcare Work Phone: US OB BPP W NON-STRESSon [phone] [place] [phone] Ultrasound Report Signed Patient: KASANDRA MACIAS MR#: [id number] : 1995 Acct:[id number] Age/Sex: 27 / F ADM Date: 07/25/23 Loc: US Attending Dr: Wisam Rodriguez D.O. Ordering Physician: Wisam Rodriguez D.O. Date of Service: 07/25/23 Procedure(s): US OB BPP w non-stress Accession Number(s): [id number] cc: Wisam Rodriguez D.O.; Iron Garcia M.D. The [address] [address] Patient Name: KASANDRA MACIAS MRN: [id number] date: 1995 Sex: F Assigned Patient Location: [facility] Current Patient Location: Accession/Order Number: [id number] Exam Date: 07/25/2023 16:04 Report Date: 07/26/2023 05:40 At the request of: WISAM RODRIGUEZ Procedure: [...] biophysical profile score 8.0. Electronically authenticated by: JUDITH MACHUCA Date: 07/26/2023 05:40 Dictated By: Judith Machuca M.D. Signed By: 07/26/23 0542 DD/ TD/TT: Batch Room Technician:TBHRadiology, Radiologist, - 07/26/[address] [address] Ultrasound Report Signed Patient: KASANDRA MACIAS MR#: [id number] : 1995 Acct:[id number] Age/Sex: 27 / F ADM Date: 07/25/23 Loc: US Attending Dr: Wisam Rodriguez D.O. Ordering Physician: Wisam Rodriguez D.O. Date of Service: 07/25/23 Procedure(s): US OB BPP w non-stress Accession Number(s): [id number] cc: Wisam Rodriguez D.O.; Iron Garcia M.D. [address] [address] Patient Name: KASANDRA MACIAS MRN: TBH:[id number] date: 1995 Sex: F Assigned Patient Location: [facility] Current Patient Location: Accession/Order Number: [id number] Exam Date: 07/25/2023 16:04 Report Date: 07/26/2023 05:40 At the request of: WISAM RODRIGUEZ Procedure: [...] biophysical profile score 8.0. Electronically authenticated by: JUDITH MACHUCA Date: 07/26/2023 05:40 Dictated By: Judith Machuca M.D. Signed By: 07/26/2342 DD/ 9 TD/TT: Batch Room Technician: PAL HealthcareRadiology Study observation (narrative)NOMTimoteo HealthcareUS OB BPP W NON-STRESSOrdered By: Radiologist Radiology on 74-81-9650SKLK [facility] Work Phone: US OB BPP W NON-STRESSon 92-63-8161D[place] [address] Ultrasound Report Signed Patient: KASANDRA MACIAS MR#: [id number] : 1995 Acct:[id number] Age/Sex: 27 / F ADM Date: 07/21/23 Loc: FBCO Attending Dr: Wisam Rodriguez D.O. Ordering Physician: Wisam Rodriguez D.O. Date of Service: 07/21/23 Procedure(s): US OB BPP w non-stress Accession Number(s): [id number] cc: Wisam Rodriguez D.O.; Iron Garcia M.D. [address] [place] [address] Patient Name: KASANDRA MACIAS MRN: TBH:[id number] date: 1995 Sex: F Assigned Patient Location: [facility] Current Patient Location: Accession/Order Number: [id number] Exam Date: 07/21/2023 17:36 Report Date: 07/22/2023 [...] Signed By: 07/22/23 0751 DD/ 0749 TD/TT: Batch Room Technician:MILESadiologoumou, Radiologist, - 07/22/2023 [address] [place] [id number] Ultrasound Report Signed Patient: KASANDRA MACIAS MR#: [id number] : 1995 Acct:[id number] Age/Sex: 27 / F ADM Date: 07/21/23 Loc: FBCO Attending Dr: Wisam Rodriguez D.O. Ordering Physician: Wisam Rodriguez D.O. Date of Service: 07/21/23 Procedure(s): US OB BPP w non-stress Accession Number(s): [id number] cc: Wisam Rodriguez D.O.; Iron Garcia M.D. [place] [address] Patient Name: KASANDRA MACIAS MRN: [id number] date: 1995 Sex: F Assigned Patient Location: [facility] Current Patient Location: Accession/Order Number: [id number] Exam Date: 07/21/2023 17:36 Report Date: 07/22/2023 [...] Signed By: 07/22/23 0751 DD/ 0749 TD/TT: Batch Room Technician: NOMTimoteo HealthcareRadiology Study observation (narrative)NOMS HealthcareUS OB BPP W NON-STRESSOrdered By: Radiologist Radiology on 29-43-6936LESR [facility] Work Phone: US OB BPP W NON-STRESSon 05-22-8743[place] [address] Ultrasound Report Signed Patient: KASANDRA MACIAS MR#: [id number] : 1995 Acct:[id number] Age/Sex: 27 / F ADM Date: 07/18/23 Loc: US Attending Dr: Wisam Rodriguez D.O. Ordering Physician: Wisam Rodriguez D.O. Date of Service: 07/18/23 Procedure(s): US OB BPP w non-stress Accession Number(s): [id number] cc: Wisam Rodriguez D.O.; Iron Garcia M.D. [address] [place] [address] Patient Name: KASANDRA MACIAS MRN: [facility]:[id number] date: 1995 Sex: F Assigned Patient Location: [facility] Current Patient Location: Accession/Order Number: [id number] Exam Date: 07/18/2023 17:12 Report Date: 07/19/2023 07:15 At the request of: WISAM RODRIGUEZ [...] M.D. Signed By: 07/19/23716 DD/ 4 TD/TT: Batch Room Technician:CARYHRadiology, Radiologist, - 07/19/2023 [place] [address] Ultrasound Report Signed Patient: KASANDRA MACIAS MR#: [id number] : 1995 Acct:[id number] Age/Sex: 27 / F ADM Date: 07/18/23 Loc: US Attending Dr: Wisam Rodriguez D.O. Ordering Physician: Wisam Rodriguez D.O. Date of Service: 07/18/23 Procedure(s): US OB BPP w non-stress Accession Number(s): [id number] cc: Wisam Rodriguez D.O.; Iron Garcia M.D. [address] [address] Patient Name: KASANDRA MACIAS MRN: [facility]:[id number] date: 1995 Sex: F Assigned Patient Location: [facility] Current Patient Location: Accession/Order Number: [id number] Exam Date: 07/18/2023 17:12 Report Date: 07/19/2023 07:15 At the request of: WISAM RODRIGUEZ [...] M.D. Signed By: 07/19/23716 DD/ 4 TD/TT: Batch Room Technician: PAL HealthcareRadiology Study observation (narrative)NOMS HealthcareUS OB BPP W NON-STRESSOrdered By: Radiologist Radiology on 70-83-5036MOVD [facility] Work Phone: US OB BPP W NON-STRESSon 96-07-[address] [address] Ultrasound Report Signed Patient: KASANDRA MACIAS MR#: [id number] : 1995 Acct:[id number] Age/Sex: 27 / F ADM Date: 07/11/23 Loc: US Attending Dr: Wisam Rodriguez D.O. Ordering Physician: Wisam Rodriguez D.O. Date of Service: 07/11/23 Procedure(s): US OB BPP w non-stress Accession Number(s): [id number] cc: Wisam Rodriguez D.O.; Iron Garcia M.D. [address] [place] [address] Patient Name: KASANDRA MACIAS MRN: [facility]:[id number] date: 1995 Sex: F Assigned Patient Location: [facility] Current Patient Location: Accession/Order Number: [id number] Exam Date: 07/11/2023 17:05 Report Date: 07/12/2023 07:45 At the request of: WISAM RODRIGUEZ Procedure: [...] Signed By: 07/12/23 0747 DD/ 0745 TD/TT: Batch Room Technician:TBHRadiology, Radiologist, MD - 07/12/2023 [place] [address] Ultrasound Report Signed Patient: KASANDRA MACIAS MR#: [id number] : 1995 Acct:[id number] Age/Sex: 27 / F ADM Date: 07/11/23 Loc: US Attending Dr: Wisam Rodriguez D.O. Ordering Physician: Wisam Rodriguez D.O. Date of Service: 07/11/23 Procedure(s): US OB BPP w non-stress Accession Number(s): [id number] cc: Wisam Rodriguez D.O.; Iron Garcia M.D. [address] [address] Patient Name: KASANDRA MACIAS MRN: [facility]:[id number] date: 1995 Sex: F Assigned Patient Location: [facility] Current Patient Location: Accession/Order Number: [id number] Exam Date: 07/11/2023 17:05 Report Date: 07/12/2023 07:45 At the request of: WISAM RODRIGUEZ Procedure: [...] Davis M.D. Signed By: 07/12/2347 DD/ TD/TT: Batch Room Technician: PAL HealthcareRadiology Study observation (narrative)NOMTimoteo HealthcareUS OB BPP W NON-STRESSOrdered By: Radiologist Radiology on 95-34-7498ZFTD [facility] Work Phone: US OB BPP W NON-STRESSon [phone], [place] [address] Ultrasound Report Signed Patient: KASANDRA MACIAS MR#: [id number] : 1995 Acct:[id number] Age/Sex: 27 / F ADM Date: 07/06/23 Loc: US Attending Dr: Wisam Rodriguez D.O. Ordering Physician: Wisam Rodriguez D.O. Date of Service: 07/06/23 Procedure(s): US OB BPP w non-stress Accession Number(s): [id number] cc: Wisam Rodriguez D.O.; Iron Garcia M.D. [address] [place] [address] Patient Name: KASANDRA MACIAS MRN: [facility]:[id number] date: 1995 Sex: F Assigned Patient Location: [facility] Current Patient Location: Accession/Order Number: [id number] Exam Date: 07/06/2023 19:06 Report Date: 07/07/2023 08:02 At the request of: WISAM RODRIGUEZ Procedure: [...] biophysical profile score 8.0. Electronically authenticated by: JUDITH MACHUCA Date: 07/07/2023 08:02 Dictated By: Judith Machuca M.D. Signed By: 07/07/23803 DD/ 1 TD/TT: Batch Room Technician:ACRYHRadiology, Radiologist, MD - 07/07/2023 [place] [address] Ultrasound Report Signed Patient: KASANDRA MACIAS MR#: [id number] : 1995 Acct:[id number] Age/Sex: 27 / F ADM Date: 07/06/23 Loc: US Attending Dr: Wisam Rodriguez D.O. Ordering Physician: Wisam Rodriguez D.O. Date of Service: 07/06/23 Procedure(s): US OB BPP w non-stress Accession Number(s): [id number] cc: Wisam Rodriguez D.O.; Iron Garcia M.D. [place] [id number] Patient Name: KASANDRA MACIAS MRN: TBH:[id number] date: 1995 Sex: F Assigned Patient Location: [facility] Current Patient Location: Accession/Order Number: [id number] Exam Date: 07/06/2023 19:06 Report Date: 07/07/2023 08:02 At the request of: WISAM RODRIGUEZ Procedure: [...] biophysical profile score 8.0. Electronically authenticated by: JUDITH MACHUCA Date: 07/07/2023 08:02 Dictated By: Judith Machuca M.D. Signed By: 07/07/23803 DD/ 1 TD/TT: Batch Room Technician: NOMTimoteo HealthcareRadiology Study observation (narrative)NOMS HealthcareUS OB BPP W NON-STRESSOrdered By: Radiologist Radiology on 95-37-6196RFIX [facility] Work Phone: US OB BPP W NON-STRESSon 24-57-6033[place]oz[place] [address] Ultrasound Report Signed Patient: KASANDRA MACIAS MR#: [id number] : 1995 Acct:[id number] Age/Sex: 27 / F ADM Date: 06/27/23 Loc: US Attending Dr: Wisam Rodriguez D.O. Ordering Physician: Wisam Rodriguez D.O. Date of Service: 06/27/23 Procedure(s): US OB BPP w non-stress Accession Number(s): [id number] cc: Wisam Rodriguez D.O.; Iron Garcia M.D. The [place] [address] Patient Name: KASANDRA MACIAS MRN: [facility]:[id number] date: 1995 Sex: F Assigned Patient Location: US Current Patient Location: Accession/Order Number: [id number] Exam Date: 06/27/2023 17:04 Report Date: 06/28/2023 [...] biophysical profile score 8.0. Electronically authenticated by: JUDITH MACHUCA Date: 06/28/2023 07:15 Dictated By: Judith Machuca M.D. Signed By: 06/28/23716 DD/ 4 TD/TT: Batch Room Technician:CARYHRadiology, Radiologist, MD - 06/30/2023 [place] [address] Ultrasound Report Signed Patient: KASANDRA MACIAS MR#: [id number] : 1995 Acct:[id number] Age/Sex: 27 / F ADM Date: 06/27/23 Loc: US Attending Dr: Wisam Rodriguez D.O. Ordering Physician: Wisam Rodriguez D.O. Date of Service: 06/27/23 Procedure(s): US OB BPP w non-stress Accession Number(s): [id number] cc: Wisam Rodriguez D.O.; Iron Garcia M.D. The [address] [address] Patient Name: KASANDRA MACIAS MRN: [id number]:[id number] date: 1995 Sex: F Assigned Patient Location: US Current Patient Location: Accession/Order Number: [id number] Exam Date: 06/27/2023 17:04 Report Date: 06/28/2023 [...] biophysical profile score 8.0. Electronically authenticated by: JUDITH MACHUCA Date: 06/28/2023 07:15 Dictated By: Judith Machuca M.D. Signed By: 06/28/23716 DD/ 4 TD/TT: Batch Room Technician: NOMTimoteo HealthcareRadiology Study observation (narrative)NOMS HealthcareUS OB BPP W NON-STRESSOrdered By: Radiologist Radiology on 69-28-8059IPXN [facility] Work Phone: US AMNIOTIC FLUID VOLUMEon 47-57-2861XmvDaven[place] [address] Ultrasound Report Signed Patient: KASANDRA MACIAS MR#: [id number] : 1995 Acct:[id number] Age/Sex: 27 / F ADM Date: 06/09/23 Loc: US Attending Dr: Wisam Rodriguez D.O. Ordering Physician: Wisam Rodriguez D.O. Date of Service: 06/09/23 Procedure(s): US OB amniotic fluid vol Accession Number(s): [id number] cc: Wisam Rodriguez D.O.; Iron Garcia M.D. The [address] [address] Patient Name: KASANDRA MACIAS MRN: [id number] date: 1995 Sex: F Assigned Patient Location: US Current Patient Location: LAB Accession/Order Number: [id number] Exam Date: 06/09/2023 15:05 Report Date: 06/09/2023 15:45 At the request of: WISAM RODRIGUEZ Procedure: US OB amniotic fluid vol [...] increased since prior study. Electronically authenticated by: JUDITH MACHUCA Date: 06/09/2023 15:45 Dictated By: Judith Machuca M.D. Signed By: 06/09/23 1547 DD/ 1545 TD/TT: Batch Room Technician:MILESadiologoumou, Radiologist, - 06/09/2023 [place] [address] Ultrasound Report Signed Patient: KASANDRA MACIAS MR#: [id number] : 1995 Acct:[id number] Age/Sex: 27 / F ADM Date: 06/09/23 Loc: US Attending Dr: Wisam Rodriguez D.O. Ordering Physician: Wisam Rodriguez D.O. Date of Service: 06/09/23 Procedure(s): US OB amniotic fluid vol Accession Number(s): [id number] cc: Wisam Rodriguez D.O.; Iron Garcia M.D. [place] [phone] Patient Name: KASANDRA MACIAS MRN: [facility]:[id number] date: 1995 Sex: F Assigned Patient Location: US Current Patient Location: LAB Accession/Order Number: [id number] Exam Date: 06/09/2023 15:05 Report Date: 06/09/2023 15:45 At the request of: WISAM RODRIGUEZ Procedure: US OB amniotic fluid vol [...] increased since prior study. Electronically authenticated by: JUDITH MACHUCA Date: 06/09/2023 15:45 Dictated By: Judith Machuca M.D. Signed By: 06/09/23 1547 DD/ 44 TD/TT: Batch Room Technician: PAL HealthcareRadiology Study observation (narrative)PAL Christian AMNIOTIC FLUID VOLUMEOrdered By: Radiologist Radiology on 22-02-9973BTWJ [facility] Work Phone: US OB GROWTHon [phone] [address] Ultrasound Report Signed Patient: KASANDRA MACIAS MR#: [id number] : 1995 Acct:[id number] Age/Sex: 27 / F ADM Date: 05/26/23 Loc: NOMS Attending Dr: Wisam Rodriguez D.O. Ordering Physician: Wisam Rodriguez D.O. Date of Service: 05/26/23 Procedure(s): US OB growth Accession Number(s): [id number] cc: Wisam Rodriguez D.O.; Iron Garcia M.D. The [place] [phone] Patient Name: KASANDRA MACIAS MRN: [facility]:[id number] date: 1995 Sex: F Assigned Patient Location: [facility] Current Patient Location: [facility] Accession/Order Number: [id number] Exam Date: 05/26/2023 09:17 Report Date: 05/26/2023 09:49 At the request of: WISAM RODRIGUEZ Procedure: US OB growth EXAMINATION: US [...] Davis M.D. Signed By: 05/26/2352 DD/ TD/TT: Batch Room Technician:MILESadiology, Radiologist, - 05/26/[address] [address] Ultrasound Report Signed Patient: KASANDRA MACIAS MR#: [id number] : 1995 Acct:[id number] Age/Sex: 27 / F ADM Date: 05/26/23 Loc: NOMS Attending Dr: Wisam Rodriguez D.O. Ordering Physician: Wisam Rodriguez D.O. Date of Service: 05/26/23 Procedure(s): US OB growth Accession Number(s): [id number] cc: Wisam Rodriguez D.O.; Iron Garcia M.D. [place] [address] Patient Name: KASANDRA MACIAS MRN: [facility]:[id number] date: 1995 Sex: F Assigned Patient Location: [facility] Current Patient Location: [facility] Accession/Order Number: [id number] Exam Date: 05/26/2023 09:17 Report Date: 05/26/2023 09:49 At the request of: WISAM RODRIGUEZ Procedure: US OB growth EXAMINATION: US [...] M.D. Signed By: 05/26/2352 DD/ 8 TD/TT: Batch Room Technician: TORIS HealthcareRadiology Study observation (narrative)NOMS HealthcareUS OB GROWTHOrdered By: Radiologist Radiology on 03-59-0894UNBN [facility] Work Phone: Laboratory - Microbiology and Antimicrobial susceptibilityOrdered By: Teresa Wilkins on 07-59-5043XFKE-CoV-2 (COVID-19) RNA SHIRIN+probe Ql (Unsp spec)[facility] HospitalUrinalysis macro (dipstick) panel (U)on 12-20-0374Knqzcjurz, UANegativeNegative - 4(70) +++ mg/dL NOMS HealthcareBlood, [...] HealthcareNo Panel InformationOrdered By: Radiologist Radiology on 92-81-5972XJDY Healthcare Work Phone: No Panel Informationon 58-95-8249Ehtibvqqd Study observation (narrative)NOMS HealthcareUS OB ANATOMYon 47-09-2673ZgbD[place] [address] Ultrasound Report Signed Patient: KASANDRA MACIAS MR#: [id number] : 1995 Acct:[id number] Age/Sex: 27 / F ADM Date: 03/31/23 Loc: US Attending Dr: Wisam Rodriguez D.O. Ordering Physician: Wisam Rodriguez D.O. Date of Service: 03/31/23 Procedure(s): US OB anatomy Accession Number(s): [id number] cc: Wisam Rodriguez D.O.; Iron Garcia M.D. [address] [address] Patient Name: KASANDRA MACIAS MRN: [facility]:[id number] date: 1995 Sex: F Assigned Patient Location: US Current Patient Location: Accession/Order Number: [id number] Exam Date: 03/31/2023 19:37 Report Date: 04/01/2023 07:16 At the request of: WISAM RODRIGUEZ Procedure: US OB anatomy EXAMINATION: US [...] M.D. Signed By: 04/01/23718 DD/ 5 TD/TT: Batch Room Technician:MILESadiologoumou, Radiologist, - 04/01/2023 [place] [address] Ultrasound Report Signed Patient: KASANDRA MACIAS MR#: [id number] : 1995 Acct:[id number] Age/Sex: 27 / F ADM Date: 03/31/23 Loc: US Attending Dr: Wisam Rodriguez D.O. Ordering Physician: Wisam Rodriguez D.O. Date of Service: 03/31/23 Procedure(s): US OB anatomy Accession Number(s): [id number] cc: Wisam Rodriguez D.O.; Iron Garcia M.D. The [place] [address] Patient Name: KASANDRA MACIAS MRN: [id number]:[id number] date: 1995 Sex: F Assigned Patient Location: US Current Patient Location: Accession/Order Number: [id number] Exam Date: 03/31/2023 19:37 Report Date: 04/01/2023 07:16 At the request of: WISAM RODRIGUEZ Procedure: US OB anatomy EXAMINATION: US [...] M.D. Signed By: 04/01/23718 DD/ 5 TD/TT: Batch Room Technician: PAL Christian OB TRANSVAGINALon 88-87-1102DyaD[place], [place] [address] Ultrasound Report Signed Patient: KASANDRA MACIAS MR#: [id number] : 1995 Acct:[id number] Age/Sex: 27 / F ADM Date: 03/31/23 Loc: US Attending Dr: Wisam Rodriguez D.O. Ordering Physician: Wisam Rodriguez D.O. Date of Service: 03/31/23 Procedure(s): US OB transvaginal Accession Number(s): [id number] cc: Wisam Rodriguez D.O.; Iron Garcia M.D. The [address] [address] Patient Name: KASANDRA MACIAS MRN: [id number]:[id number] date: 1995 Sex: F Assigned Patient Location: US Current Patient Location: Accession/Order Number: [id number] Exam Date: 03/31/2023 19:37 Report Date: 04/01/2023 07:16 At the request of: WISAM RODRIGUEZ Procedure: US OB transvaginal EXAMINATION: US [...] M.D. Signed By: 04/01/2319 DD/ 5 TD/TT: Batch Room Technician:TBHRadiology, Radiologist, - 06/01/[address] [address] Ultrasound Report Signed Patient: KASANDRA MACIAS MR#: [id number] : 1995 Acct:[id number] Age/Sex: 27 / F ADM Date: 03/31/23 Loc: US Attending Dr: Wisam Rodriguez D.O. Ordering Physician: Wisam Rodriguez D.O. Date of Service: 03/31/23 Procedure(s): US OB transvaginal Accession Number(s): [id number] cc: Wisam Rodriguez D.O.; Iron Garcia M.D. [place] [address] Patient Name: KASANDRA MACIAS MRN: [facility]:[id number] date: 1995 Sex: F Assigned Patient Location: US Current Patient Location: Accession/Order Number: [id number] Exam Date: 03/31/2023 19:37 Report Date: 04/01/2023 07:16 At the request of: WISAM RODRIGUEZ Procedure: US OB transvaginal EXAMINATION: US [...] M.D. Signed By: 04/01/23718 DD/ 5 TD/TT: Batch Room Technician: PAL [facility] AUTO DIFFon 11-99-2116QEZN #0.0 103/ulNormal0.0-0.1[facility] CenterComment on above:Performed By: #### RF #### [facility] [address] [place] [address] Dr. Venkat SloanBasophils/100 WBC (Bld)0.5 %Normal0.2-2.0[facility] Comment on above:Performed By: #### RF #### [facility] [address] [place] [address] Dr. Venkat Willson #0.1 103/ulNormal0.0-0.7The [facility] HospitalComment on above: Performed By: #### RF #### [facility] [address] [place] [address] Dr. Venkat Lewosinophils/100 WBC (Bld)1.7 %Normal0.9-7.0[facility] Comment on above:Performed By: #### RF #### [facility] [address] [place] [address] Dr. Venkat Lewrythrocyte distribution width (RBC) [Ratio]12.7 %Qgules49.0-15.0 [facility] CenterComment on above:Performed By: #### RF #### [facility] [address] [place] [address] Dr. Venkat SloanHematocrit (Bld) [Volume fraction]40.4 %Cexgol05.0-48.0[facility] CenterComment on above:Performed By: #### RF #### [facility] [address] [place] [address] Dr. Venkat SloanHemoglobin (Bld) [Mass/Vol]13.1 g/uIRugwzm35.0-16.0The [facility] HospitalComment on above:Performed By: #### RF #### [facility] [address] [place] [address] Dr. Venkat Monson #0.02 10e3/ulNormal0.00-0.03The [facility] HospitalComment on above:Performed By: #### RF #### [facility] [address] [place] [address] Dr. Venkat Monson %0.3 %Normal0.0-0.5The [facility] HospitalComment on above: Performed By: #### RF #### [facility] [address] [place] [address] Dr. Venkat [address] #2.0 103/ulNormal1.2-3.8The [facility] HospitalComment on above:Performed By: #### RF #### [facility] [address] [place] [address] Dr. Venkat Plazahocytes/100 WBC (Bld)26.2 %Ghlfxf84.5-60.0The [facility] HospitalComment on above:Performed By: #### RF #### [facility] [address] [place] [address] Dr. Venkat SantosUAL DIFF REQNONormalThe [facility] HospitalComment on above: Performed By: #### RF #### [facility] [address] [place] [address] Dr. Venkat Kearns (RBC) [Entitic mass]28.4 ppJdciai60.7-34.0The [facility] HospitalComment on above:Performed By: #### RF #### [facility] [address] [place] [address] Dr. Venkat Kearns (RBC) [Mass/Vol]32.4 g/hMIoamfm22.9-35.2The [facility] HospitalComment on above:Performed By: #### RF #### [facility] [address] [place] [address] [address] Venkat KearnsV (RBC) [Entitic vol]87.4 hCIgopjn60.0-99.0The [facility] HospitalComment on above:Performed By: #### RF #### [facility] [address] [place] [address] Dr. Venkat Marte #0.7 103/ulNormal0.3-0.8The [facility] HospitalComment on above:Performed By: #### RF #### [facility] [address] [place] [address] Dr. Venkat Desaiocytes/100 WBC (Bld)8.8 %Normal1.7-12.0The [facility] Comment on above:Performed By: #### RF #### [facility] [address] [place] [address] Dr. Venkat Lopez #4.8 103/ulNormal1.4-6.5The [facility] HospitalComment on above:Performed By: #### RF #### [facility] [address] [place] [address] Dr. Venkat Zhengutrophils/100 WBC (Bld)62.5 %Ksyiys32.0-75.0The [facility] HospitalComment on above:Performed By: #### RF #### [facility] [address] [place] [address] Dr. Venkat Kellylet mean volume (Bld) [Entitic vol]8.5 fLCritically low 9.5-13.5The [facility] HospitalComment on above:Performed By: #### RF #### [facility] [address] [place] [address] Dr. Venkat SloanPLT331 103/yoQnahyf373-378Ldm [facility] HospitalComment on above: Performed By: #### RF #### [facility] [address] [place] [address] Dr. Venkat SloanRBC4.62 106/ulNormal4.20-5.40The [facility] HospitalComment on above:Performed By: #### RF #### [facility] [address] [place] [address] Dr. Venkat SloanWBC7.7 103/ulNormal4.0-11.0The [facility] HospitalComment on above: Performed By: #### RF #### [facility] [address] [place] [address] Dr. Venkat Jaeger QUANT HCGon 48-43-7542KNK QUANT<1NormalChillicothe Va Medical Center Comment on above:Performed By: #### PREGQNT #### [facility] [address] [place] [address] Dr. Venkat MONTESPremier Health Miami Valley HospitalComment on above: Result Comment: 5-50 0.2-1 WEEK 50-500 1-2 WEEKS 100-5,000 2-3 WEEKS 500-10,000 3-4 WEEKS 1,000-50,000 4-5 WEEKS 10,000-100,000 5-6 WEEKS 15,000-200,000 6-8 WEEKS 10,000-100,000 2-3 MONTHSPerformed By: #### PREGQNT #### [facility] [address] [place] [address] Dr. Venkat SloanPROGESTERONEon 01-58-5320Nefdjweoqhdx1.7 ng/mLNormalChillicothe Va Medical CenterComment on above:Result Comment: Follicular phase 0.1 - 0.9 Luteal phase 1.8 - 23.9 Ovulation phase 0.1 - 12.0 First trimester 11.0 - 44.3 Second trimester 25.4 - 83.3 Third trimester 58.7 - 214.0 Postmenopausal 0.0 - 0.1Performed By: #### TSH #### [facility] [address] [place] [address] Dr. Venkat Jaeger QUANT HCGon 06-54-3072WIK QUANT1 mIU/mLNormalChillicothe Va Medical CenterComment on above:Performed By: #### PREGQNT #### [facility] [address] [place] [address] Dr. Venkat COOK [facility] CenterComment on above: Result Comment: 5-50 0.2-1 WEEK 50-500 1-2 WEEKS 100-5,000 2-3 WEEKS 500-10,000 3-4 WEEKS 1,000-50,000 4-5 WEEKS 10,000-100,000 5-6 WEEKS 15,000-200,000 6-8 WEEKS 10,000-100,000 2-3 MONTHSPerformed By: #### PREGQNT #### [facility] [address] [place] [address] Dr. Venkat SloanPROGESTERONEon 84-92-3827Evslenbeqidu14.4 ng/mLNormalChillicothe Va Medical CenterComment on above:Result Comment: Follicular phase 0.1 - 0.9 Luteal phase 1.8 - 23.9 Ovulation phase 0.1 - 12.0 First trimester 11.0 - 44.3 Second trimester 25.4 - 83.3 Third trimester 58.7 - 214.0 Postmenopausal 0.0 - 0.1Performed By: #### INFLUAB #### [facility] [address] [place] [address] Dr. Venkat SloanI BRAIN WO W CONon [id number] BRAIN WO W CONEXAMINATION: MRI BRAIN WO [...] account for patient's symptoms. Electronically authenticated by: JUDITH MACHUCA Date: 2022-05-04 08:42NormSt. Rita's HospitalPREG QUANT HCGon [id number] QUANT<1NormalChillicothe Va Medical CenterComment on above:Performed By: #### RF #### [facility] [address] [address] [address] Venkat SloanHCG [facility] GeneralComment on above: Result Comment: 5-50 0.2-1 WEEK 50-500 1-2 WEEKS 100-5,000 2-3 WEEKS 500-10,000 3-4 WEEKS 1,000-50,000 4-5 WEEKS 10,000-100,000 5-6 WEEKS 15,000-200,000 6-8 WEEKS 10,000-100,000 2-3 MONTHSPerformed By: #### RF #### [facility] [address] [address] [address] Venkat SloanXR HYSTEROSALPINGOGRAMon [id number] HYSTEROSALPINGOGRAM EXAMINATION: XR HYSTEROSALPINGOGRAM HISTORY: Noninflammatory disorder [...] tube. 2. Unremarkable uterus. Electronically authenticated by: JUDITH MACHUCA Date: 2022-05-04 16:[address] [place], [place] [address]PROGESTERONEon 60-48-8149Zjmnlfhbxchk0.4 ng/mLNWhite HospitalComment on above:Result Comment: Follicular phase 0.1 - 0.9 Luteal phase 1.8 - 23.9 Ovulation phase 0.1 - 12.0 First trimester 11.0 - 44.3 Second trimester 25.4 - 83.3 Third trimester 58.7 - 214.0 Postmenopausal 0.0 - 0.1Performed By: #### INFLUAB #### [facility] [address] [place], [place] [id number] Dr. Venkat SloanCULTURE SPUTUMon [id number] SPUTUMCulture Observations: NORMAL RESPIRATORY NATALEE.NormalChillicothe Va Medical CenterComment on above:Performed By: #### RF #### [facility] [address] [address] [address] Venkat Maza GRAM STAINon [id number]kCleveland Clinic [facility]ron General Comment on above:Performed By: #### RF #### [facility] [address] [address] [address] Venkat BarnesPHTHEROIDSKettering Health TroyComment on above:Performed By: #### RF #### [facility] [address] [address] [address] Venkat LewPITHELIALS<[address] [place], [place] [address]Com[facility] on above: Performed By: #### RF #### [facility] [address] [address] [address] Venkat SaucedaNGAL ELEMENTSKettering Health TroyComment on above: Performed By: #### RF #### [facility] [address] [address] [address] Venkat Sena NEG BACILLIRARENCleveland Clinic [facility] Hospital on above: Performed By: #### RF #### [facility] [address] [address] [address] Venkat Sena NEG DIPPLOCOCCIVan [facility]ert [facility] on above: Performed By: #### RF #### [facility] [address] [address] [address] Venkat Sena POS BACILLIKettering Health TroyComment on above: Performed By: #### RF #### [facility] [address] [address] [address] Venkat Sena POSITIVE COCCIRARENWhite HospitalComcovenant medical center on above:Performed By: #### RF #### [facility] [address] [place] [address] Dr. Venkat Brandon (Bld) [#/Vol]10*3/uLVan Wert [facility] Hospital on above:Performed By: #### RF #### [facility] [address] [place] [address] Dr. Venkat SloanCovid-19 PCR (CVDTB)on [id number]-CoV-2 (COVID-19) RNA SHIRIN+probe Ql (Unsp spec)Not detectedNormalNOT DETECTEDThe [facility] Comment on above:Result Comment: This test is not yet approved or cleared by the [place] FDA. When there are no FDA-approved or cleared tests available, and other criteria are met, FDA can make tests available under an emergency access mechanism called an Emergency Use Authorization (EUA). The EUA for this test is supported by the Intervention Specialist of Health and Human Service's (HHS's) declaration [...] consistent with SARS-CoV-2.Performed By: #### PREGQNT #### [facility] [address] [place] [address] Dr. Venkat SloanINFLUENZA A AND B AGon 31-63-5696WJIECMVOMEKLLCleveland Clinic Mentor HospitalComment on above:Result Comment: Negative for Flu A protein angiten. Infection due to Flu A cannot be ruled out. FluA angiten in the sample may be below the detection limit of the test.Performed By: #### INFLUAB #### [facility] [address] [place] [address] Dr. Venkat SloanINFLUBNEGCleveland Clinic Mentor HospitalComcovenant medical center on above: Result Comment: Negative for Flu B protein antigen. Infection due to Flu B cannot be ruled out. FluB antigen in the sample may be below the detection limit of the test.Performed By: #### INFLUAB #### [facility] [address] [place] [address] Dr. Venkat Mixon AGNegativeNormalNEGATIVE SEE COMMENTThe [facility] HospitalComment on above:Performed By: #### INFLUAB #### [facility] [address] [address] [address] Venkat Burton AGNegativeNormalNEGATIVE SEE COMMENTThe [facility] HospitalComment on above:Performed By: #### INFLUAB #### [facility] [address] [address] [address] Venkat SloanXR CHEST 2 Von [id number] CHEST 2 VEXAM: XR CHEST 2 V HISTORY: . Acute bronchitis . COMPARISON: 03/10/2021 TECHNIQUE: Frontal and lateral chest FINDINGS: Heart and vascularity are unremarkable. Lungs are expanded and free of focal infiltrates. No acute bony abnormality is appreciated. IMPRESSION: No acute heart or lung disease identified. Electronically authenticated by: DUDLEY LANE Date: 2022-03-24 12:33NoShelby Memorial HospitalCovid-19 PCR (CVDTBH)on 24-06-5455ZRVJ-CoV-2 (COVID-19) RNA SHIRIN+probe Ql (Unsp spec)Not detectedNormalNOT DETECTEDThe [facility] Comment on above:Result Comment: When diagnostic [...] for this test is supported by the Intervention Specialist of Health and Human Service's declaration [...] longer be used).Performed By: #### RF #### [facility] [address] [place] [address] Dr. Venkat Mixon AND B AGon [id number] Clinic Mentor HospitalComment on above:Result Comment: Negative for Flu A protein angiten. Infection due to Flu A cannot be ruled out. FluA angiten in the sample may be below the detection limit of the test.Performed By: #### INFLUAB #### [facility] [address] [place] [address] [address]. [address]achUBNEGHSMANISH [facility] on above: Result Comment: Negative for Flu B protein antigen. Infection due to Flu B cannot be ruled out. FluB antigen in the sample may be below the detection limit of the test.Performed By: #### INFLUAB #### [facility] [address] [place] [address] Dr. Venkat Mixon AGNegativeNormalNEGATIVE SEE COMMENTThe [facility] on above:Performed By: #### INFLUAB #### [facility] [address] [place] [address] Dr. Venkat Burton AGNegativeNormalNEGATIVE SEE COMMENTThe [facility] HospitalComcovenant medical center on above:Performed By: #### INFLUAB #### [facility] [address] [place] [address] Dr. Venkat SloanINTERNAL CONTROLSWithin Normal LimitsNormalWithin Normal Limits The [facility] HospitalComment on above:Performed By: #### INFLUAB #### [facility] [address] [place] [address] Dr. Venkat SloanComichelled-19 PCR (CVDCHILDREN'[facility])on [id number]-CoV-2 (COVID-19) RNA SHIRIN+probe Ql (Unsp spec)Not detectedNormalNOT DETECTEDThe [facility] Comment on above:Result Comment: When diagnostic [...] for this test is supported by the Intervention Specialist of Health and Human Service's declaration [...] longer be used).Performed By: #### INFLUAB #### [facility] [address] [place] [address] Dr. Venkat Mixon AND B AGon [id number] Hospitals Conneaut Medical Center on above:Result Comment: Negative for Flu A protein angiten. Infection due to Flu A cannot be ruled out. FluA angiten in the sample may be below the detection limit of the test.Performed By: #### INFLUAB #### [facility] [address] [place] [address] Dr. Ven[address] SloanINFLUBNEGMAINSH [facility] on above: Result Comment: Negative for Flu B protein antigen. Infection due to Flu B cannot be ruled out. FluB antigen in the sample may be below the detection limit of the test.Performed By: #### INFLUAB #### [facility] [address] [place] [address] Dr. Venkat Mixon AGNegativeNormalNEGATIVE SEE COMMENTThe [facility] on above:Performed By: #### INFLUAB #### [facility] [address] [place] [address] Dr. Venkat Burton AGNegativeNormalNEGATIVE SEE COMMENTThe [facility] on above:Performed By: #### INFLUAB #### [facility] [address] [place] [address] Dr. Venkat SloanINTERNAL CONTROLSWithin Normal LimitsNormalWithin Normal Limits The [facility] HospitalComment on above:Performed By: #### INFLUAB #### [facility] [address] [place], [place] [address] Dr. Venkat SloanPROGESTERONEon 22-17-6956Yolbivmpistz0.3 ng/mLNormalChillicothe Va Medical CenterComment on above:Result Comment: Follicular phase 0.1 - 0.9 Luteal phase 1.8 - 23.9 Ovulation phase 0.1 - 12.0 First trimester 11.0 - 44.3 Second trimester 25.4 - 83.3 Third trimester 58.7 - 214.0 Postmenopausal 0.0 - 0.1Performed By: #### RF #### [facility] [address] [place] [address] Dr. Venkat SloanACTH STIMULATIONon 38-20-6911Iujemz Qfhzhmii92 ng/pUCxoite36-063 [facility] CenterComment on above:Performed By: #### RF #### [facility] [address] [place] [address] Dr. Venkat Basilio Jcksgucbbo40 ng/dLNormalNot Estab.The [facility] Comment on above:Performed By: #### RF #### [facility] [address] [place] [address] Dr. Venkat SloanCovid-19 PCR ([facility])on [id number]-CoV-2 (COVID-19) RNA SHIRIN+probe Ql (Unsp spec)Not detectedNormalNOT DETECTEDThe [facility] Comment on above:Result Comment: This test is not yet approved or cleared by the [place] FDA. When there are no FDA-approved or cleared tests available, and other criteria are met, FDA can make tests available under an emergency access mechanism called an Emergency Use Authorization (EUA). The EUA for this test is supported by the Intervention Specialist of Health and Human Service's (HHS's) declaration [...] consistent with SARS-CoV-2.Performed By: #### INFLUAB #### [facility] [address] [place] [address] Dr. Venkat Mixon AND B AGon [id number]her-Titus Medical Centerment on above:Result Comment: Negative for Flu A protein angiten. Infection due to Flu A cannot be ruled out. FluA angiten in the sample may be below the detection limit of the test.Performed By: #### PREGQNT #### [facility] [address] [place] [address] Dr. Venkat QuachUBNEGWayne HealthCare Main Campus on above: Result Comment: Negative for Flu B protein antigen. Infection due to Flu B cannot be ruled out. FluB antigen in the sample may be below the detection limit of the test.Performed By: #### PREGQNT #### [address] [address] Dr[address] Venkat Mixon AGNegativeNormalNEGATIVE SEE COMMENTThe [facility] on above:Performed By: #### PREGQNT #### [address] [address] Dr[address] Venkat Burton AGNegativeNormalNEGATIVE SEE COMMENTThe [facility] on above:Performed By: #### PREGQNT #### [facility] [address] [place] [address] Dr. Venkat SloanINTERNAL CONTROLSWithin Normal LimitsNormalWithin Normal Limits The [facility] HospitalComcovenant medical center on above:Performed By: #### PREGQNT #### [facility] [address] [place] [address] Dr. Venkat Diehl SERUMon 99-58-1025Hqhqwkznsyekygheasgkgf (DHEA)82 ng/dL Idhmrf53-159Nzk [facility] on above:Result Comment: Age 1 - 5 years 0 - 67 6 - 7 years 0 - 110 8 - 10 years 0 - 185 11 - 12 years 0 - 201 13 - 14 years 0 - 318 15 - 16 years 39 - 481 17 - 19 years 40 - 491 >19 years 31 - 701Performed By: #### TSH #### [facility] [address] [place] [address] Dr. Venkat SloanDHEA-SULFATEon 83-47-4588EPYH-Pwltfeq99.0 ug/dLCritically low 84.8-378.0The [facility] HospitalComment on above:Performed By: #### RF #### [facility] [address] [place] [address] Dr. Venkat SloanFSHojanelle 36-83-8342UQG7.2 mIU/mLNormalThe [facility] HospitalComment on above:Result Comment: Adult Female: Follicular phase 3.5 - 12.5 Ovulation phase 4.7 - 21.5 Luteal phase 1.7 - 7.7 Postmenopausal 25.8 - 134.8Performed By: #### LBCFSH #### [facility] [address] [place] [address] Dr. Venkat SloanLUTEINIZING HORMONE (LH)on 57-34-0834RO8.1 mIU/mLNormalThe [facility] HospitalComment on above:Result Comment: Adult Female: Follicular phase 2.4 - 12.6 Ovulation phase 14.0 - 95.6 Luteal phase 1.0 - 11.4 Postmenopausal 7.7 - 58.5Performed By: #### INFLUAB #### [facility] [address] [place] [address] Dr. Venkat SloanPROLACTINon 77-65-0702Jrenfccfw0.0 ng/mLNormal4.8-23.3The [facility] HospitalComment on above:Performed By: #### PROLAC #### [facility] [address] [place] [address] Dr. Venkat SloanCBC AUTO DIFFon 30-59-0788ESVW #0.0 103/ulNormal0.0-0.1The [facility] HospitalComment on above:Performed By: #### TSH #### [facility] [address] [address] [address] Venkat SloanBasophils/100 WBC (Bld)0.4 %Normal0.2-2.0The [facility] Comment on above:Performed By: #### TSH #### [facility] [address] [place] [address] Dr. Venkat Willson #0.1 103/ulNormal0.0-0.7The [facility] HospitalComment on above: Performed By: #### TSH #### [facility] [address] [place] [address] Dr. Venkat Lewosinophils/100 WBC (Bld)1.2 %Normal0.9-7.0The [facility] Comment on above:Performed By: #### TSH #### [facility] [address] [place] [address] Dr. Venkat Lewrythrocyte distribution width (RBC) [Ratio]12.7 %Kdqeet38.0-15.0 The [facility] HospitalComment on above:Performed By: #### TSH #### [facility] [address] [place] [address] Dr. Venkat SloanHematocrit (Bld) [Volume fraction]41.1 %Nbvman46.0-48.0The [facility] HospitalComment on above:Performed By: #### TSH #### [facility] [address] [place] [address] Dr. Venkat SloanHemoglobin (Bld) [Mass/Vol]13.1 g/rJAwcfmi30.0-16.0The [facility] HospitalComment on above:Performed By: #### TSH #### [facility] [address] [place] [address] Dr. Venkat Monson #0.03 10e3/ulNormal0.00-0.03The [facility] HospitalComment on above:Performed By: #### TSH #### [facility] [address] [place] [address] Dr. Venkat Monson %0.3 %Normal0.0-0.5The [facility] HospitalComment on above: Performed By: #### TSH #### [facility] [address] [address] [address] Venkat Urban #1.6 103/ulNormal1.2-3.8The [facility] HospitalComment on above:Performed By: #### TSH #### [facility] [address] [address] [address] Venkat Perezmphocytes/100 WBC (Bld)15.0 %Critically low20.5-60.0The [facility] HospitalComment on above:Performed By: #### TSH #### [facility] [address] [place] [address] Dr. Venkat Rodriguez DIFF REQNONormalThe [facility] HospitalComment on above: Performed By: #### TSH #### [facility] [address] [place] [address] Dr. Venkat Kearns (RBC) [Entitic mass]28.5 roWrmnyl61.7-34.0The [facility] HospitalComment on above:Performed By: #### TSH #### [facility] [address] [place] [address] Dr. Venkat Kearns (RBC) [Mass/Vol]31.9 g/lYUxjnxn95.9-35.2The [facility] HospitalComment on above:Performed By: #### TSH #### [facility] [address] [place] [address] Dr. Venkat Kearns (RBC) [Entitic vol]89.3 oTQicbln25.0-99.0The [facility] HospitalComment on above:Performed By: #### TSH #### [facility] [address] [place] [address] Dr. Venkat Marte #0.9 103/ulCritically high0.3-0.8The [facility] Comment on above:Performed By: #### TSH #### [facility] [address] [place] [address] Dr. Venkat Desaiocytes/100 WBC (Bld)8.8 %Normal1.7-12.0[facility] Comment on above:Performed By: #### TSH #### [facility] [address] [address] [address] Venkat ZhengUT #7.9 103/ulCritically high1.4-6.5The [facility] Comment on above:Performed By: #### TSH #### [facility] [address] [address] [address] Venkat Zhengutrophils/100 WBC (Bld)74.3 %Lpumpg87.0-75.0The [facility] HospitalComment on above:Performed By: #### TSH #### [facility] [address] [address] [address] Venkat SloanPlatelet mean volume (Bld) [Entitic vol]9.2 fLCritically low 9.5-13.5The [facility] HospitalComment on above:Performed By: #### TSH #### [facility] [address] [address] [address] Vnekat SloanPLT300 103/ihZhjepc449-840Rbx [facility] HospitalComment on above: Performed By: #### TSH #### [facility] [address] [address] [address] Venkat SloanRBC4.60 106/ulNormal4.20-5.40The [facility] HospitalComment on above:Performed By: #### TSH #### [facility] [address] [place] [address] Dr. Venkat SloanWBC10.7 103/ulNormal4.0-11.0The [facility] HospitalComment on above:Performed By: #### TSH #### [facility] [address] [place] [address] Dr. Venkat SloanGLYCOHEMOGLOBIN A1Con 12-20-9264PRM RECOMMENDATIONSEE BELOWNormal The [facility] HospitalComcovenant medical center on above:Result Comment: ADA RECOMMENDED LIMIT 4.0 - 6.0 ADA THERAPEUTIC TARGET < 7.0 ACTION SUGGESTED > 7.0Performed By: #### PREGQNT #### [facility] [address] [place] [address] Dr. Venkat SloanGlucose [Mass/Vol]100 mg/dLNormalThe [facility] HospitalComment on above:Performed By: #### PREGQNT #### [facility] [address] [place] [address] Dr. Venkat SloanHbA1c (Bld) [Mass fraction]5.1 %Normal4.5-6.2The [facility] HospitalComment on above:Performed By: #### PREGQNT #### [facility] [address] [place] [address] Dr. Venkat ValdiviaHojanelle 87-46-9744GUG3.098 uIU/mLNormal0.358-3.740The [facility] HospitalComment on above:Performed By: #### TSH #### [facility] [address] [place] [address] Dr. Venkat SloanCovid-19 PCR ([facility])on 74-94-6152TBPB-CoV-2 (COVID-19) RNA SHIRIN+probe Ql (Unsp spec)Not detectedNormalNOT DETECTEDThe [facility] Comment on above:Result Comment: This test is not yet approved or cleared by the [place] FDA. When there are no FDA-approved or cleared tests available, and other criteria are met, FDA can make tests available under an emergency access mechanism called an Emergency Use Authorization (EUA). The EUA for this test is supported by the [place] of Health and Human Service's (HHS's) declaration [...] consistent with SARS-CoV-2.Performed By: #### INFLUAB #### [facility] [address] [place] [address] Dr. Venkat SloanPREG QUANT HCGon 47-65-7779MPR QUANT<1NormalChillicothe Va [facility] Center Comment on above:Performed By: #### PREGQNT #### [facility] [address] [place] [address] Dr. Venkat Madrid RANGES BELOWNoShelby Memorial HospitalComment on above: Result Comment: 5-50 0.2-1 WEEK 50-500 1-2 WEEKS 100-5,000 2-3 WEEKS 500-10,000 3-4 WEEKS 1,000-50,000 4-5 WEEKS 10,000-100,000 5-6 WEEKS 15,000-200,000 6-8 WEEKS 10,000-100,000 2-3 MONTHSPerformed By: #### PREGQNT #### [facility] [address] [place] [address] Dr. Venkat Madrid-BETA SUBUNIT QUANTon 10-56-8820pAM,Beta Subunit,Qnt,Serum<1 NormalChillicothe Va Medical CenterComment on above:Result Comment: Female (Non- ) 0 - 5 (Postmenopausal) 0 - 8 . Female () Weeks of Gestation 3 6 - 71 4 10 - 750 5 217 - 7138 6 961 - 55806 7 6215 -347063 8 43217 -520047 9 37972 -514333 10 80348 -812966 12 51853 -886731 14 99518 - 81243 15 33281 - 16728 16 7381 - 43454 17 1246 - 30927 18 4894 - 03806 Aj ECLIA methodologyPerformed By: #### TSH #### [facility] [address] [place] [address] Dr. Venkat Marina by IFAon 46-67-0136Borellcgnnm Antibodies, IFANegativeNormal [facility] CenterComcovenant medical center on above:Result Comment: Negative <1:80 Borderline 1:80 Positive >1:80 ICAP nomenclature: AC-0 For more information about Hep-2 cell patterns use ANApatterns.org, the official website for the International Consensus on Antinuclear Antibody (BRETT) Patterns (ICAP).Performed By: #### ANAIFA #### [facility] [address] [place] [address] Dr. Venkat SloanINSULINon 40-15-6767Fnewire68.1 uIU/mLNormal2.6-24.9The [facility] HospitalComment on above:Performed By: #### TSH #### [facility] [address] [place] [address] Dr. Venkat SloanANTISTREPTOLYSIN O AB (ASO)on 79-27-6376Fijgimjipzwlsnuy O Ab <20.8Skoset4.0-200.0The [facility] HospitalComment on above:Performed By: #### PREGQNT #### [facility] [address] [place] [address] Dr. Venkat SloanRHEUMATOID FACTORon 93-54-5113WZ Latex Turbid.<10.0Normal<14.0The [facility] HospitalComment on above:Performed By: #### RF #### [facility] [address] [place] [address] Dr. Venkat WhitmanC AUTO DIFFon 61-45-1584WQHX #0.0 103/ulNormal0.0-0.1The [facility] HospitalComment on above:Performed By: #### TSH #### [facility] [address] [place] [address] Dr. Venkat SloanBasophils/100 WBC (Bld)0.3 %Normal0.2-2.0[facility] Comment on above:Performed By: #### TSH #### [facility] [address] [place] [address] Dr. Venkat Willson #0.1 103/ulNormal0.0-0.7The [facility] HospitalComment on above: Performed By: #### TSH #### [facility] [address] [place] [address] Dr. Venkat Lewosinophils/100 WBC (Bld)1.8 %Normal0.9-7.0The [facility] Comment on above:Performed By: #### TSH #### [facility] [address] [place] [address] Dr. Venkat Lewrythrocyte distribution width (RBC) [Ratio]12.9 %Eqvgyu85.0-15.0 The [facility] HospitalComment on above:Performed By: #### TSH #### [facility] [address] [place] [address] Dr. Venkat SloanHematocrit (Bld) [Volume fraction]39.8 %Yudbxt07.0-48.0The [facility] HospitalComment on above:Performed By: #### TSH #### [facility] [address] [place] [address] Dr. Venkat SloanHemoglobin (Bld) [Mass/Vol]12.7 g/aMXbccto91.0-16.0The [facility] HospitalComment on above:Performed By: #### TSH #### [facility] [address] [place] [address] Dr. Venkat SloanIG #0.02 10e3/ulNormal0.00-0.03The [facility] HospitalComment on above:Performed By: #### TSH #### [facility] [address] [place] [address] Dr. Venkat SloanIG %0.3 %Normal0.0-0.5The [facility]edo HospitalComment on above: Performed By: #### TSH #### [facility] [address] [place] [address] Dr. Venkat Urban #1.5 103/ulNormal1.2-3.8The [facility] HospitalComment on above:Performed By: #### TSH #### [facility] [address] [place] [address] Dr. Venkat Perezmphocytes/100 WBC (Bld)21.5 %Unamdy56.5-60.0The [facility] HospitalComment on above:Performed By: #### TSH #### [facility] [address] [place] [address] Dr. Venkat SloanMANUAL DIFF REQNONormalThe [facility] HospitalComment on above: Performed By: #### TSH #### [facility] [address] [place] [address] Dr. Venkat Peng (RBC) [Entitic mass]28.5 nkZejfap60.7-34.0The [facility] HospitalComment on above:Performed By: #### TSH #### [facility] [address] [place] [address] Dr. Venkat Kearns (RBC) [Mass/Vol]31.9 g/aNDmurks91.9-35.2The [facility] HospitalComment on above:Performed By: #### TSH #### [facility] [address] [place] [address] Dr. Venkat Kearns (RBC) [Entitic vol]89.2 vSBqnopq04.0-99.0The [facility] HospitalComment on above:Performed By: #### TSH #### [facility] [address] [place] [address] Dr. Venkat Marte #0.5 103/ulNormal0.3-0.8The [facility] HospitalComment on above:Performed By: #### TSH #### [facility] [address] [place] [address] Dr. Venkat Desaiocytes/100 WBC (Bld)7.6 %Normal1.7-12.0The [facility] Comment on above:Performed By: #### TSH #### [facility] [address] [place] [address] Dr. Venkat Lopez #4.9 103/ulNormal1.4-6.5The [facility] HospitalComment on above:Performed By: #### TSH #### [facility] [address] [place] [address] Dr. Venkat Zhengutrophils/100 WBC (Bld)68.5 %Fyffsz62.0-75.0The [facility] HospitalComment on above:Performed By: #### TSH #### [facility] [address] [place] [address] Dr. Venkat Kellylet mean volume (Bld) [Entitic vol]8.8 fLCritically low 9.5-13.5The [facility] HospitalComment on above:Performed By: #### TSH #### [facility] [address] [place] [address] Dr. Venkat SloanPLT297 103/ldTjejxw397-342Xqv [facility] HospitalComment on above: Performed By: #### TSH #### [facility] [address] [place] [address] Dr. Venkat SloanRBC4.46 106/ulNormal4.20-5.40The [facility] HospitalComment on above:Performed By: #### TSH #### [facility] [address] [place] [address] Dr. Venkat SloanWBC7.1 103/ulNormal4.0-11.0The [facility] HospitalComment on above: Performed By: #### TSH #### [facility] [address] [place] [address] Dr. Venkat Juan 39-77-7786ZEV [Mass/Vol]mg/LNormal<=1.0The [facility] HospitalComment on above:Performed By: #### PREGQNT #### [facility] [address] [place] [address] Dr. Venkat Cornejo THYROXINE INDEX T7on 08-76-8626GGI9.55Bsdaqp2.30-4.50The [facility] HospitalComment on above:Performed By: #### PREGQNT #### [facility] [address] [place] [address] Dr. Venkat SloanT3U33.0 %Xfkemx92.0-39.0The [facility] HospitalComment on above: Performed By: #### PREGQNT #### [facility] [address] [place] [address] Dr. Venkat SloanT4 [Mass/Vol]8.20 ug/dLNormal4.80-13.90The [facility] Comment on above:Performed By: #### PREGQNT #### [facility] [address] [place] [address] Dr. Venkat SloanGLYCOHEMOGLOBIN A1Con 89-39-9765HFH RECOMMENDATIONSEE BELOWNormal The [facility] HospitalComment on above:Result Comment: ADA RECOMMENDED LIMIT 4.0 - 6.0 ADA THERAPEUTIC TARGET < 7.0 ACTION SUGGESTED > 7.0Performed By: #### INFLUAB #### [facility] [address] [address] [address] Venkat SloanGlucose [Mass/Vol]105 mg/dLKettering Health TroyComment on above:Performed By: #### INFLUAB #### [facility] [address] [place] [address] Dr. Venkat SloanHbA1c (Bld) [Mass fraction]5.3 %Normal4.5-6.2The [facility] HospitalComment on above:Performed By: #### INFLUAB #### [facility] [address] [place] [address] Dr. Venkat Fernandes 54-80-8130Pxmi [Mass/Vol]49.0 ug/dLCritically low 50.0-170.0The [facility] HospitalComment on above:Performed By: #### PREGQNT #### [facility] [address] [place] [address] Dr. Venkat SloanLIPID PROFILEon 70-84-6517ABDD-HDL RATIO NORMSEE BELOWKettering Health TroyComment on above:Result Comment: 3.3 - 4.4 LOW RISK 4.4 - 7.1 AVERAGE RISK 7.1 - 11.0 MODERATE RISK >11.0 HIGH RISKPerformed By: #### PREGQNT #### [facility] [address] [place] [address] Dr. Venkat SloanCholesterol [Mass/Vol]197 mg/dLNormal<=200The [facility] Comment on above:Performed By: #### PREGQNT #### [facility] [address] [place] [address] Dr. Venkat SloanCholesterol in HDL [Mass/Vol]64 mg/dLCritically bxcq39-99Ksd [facility] HospitalComment on above:Performed By: #### PREGQNT #### [facility] [address] [place] [address] Dr. Venkat SloanCholesterol in LDL [Mass/Vol]123.4 mg/dLKettering Health TroyComment on above:Performed By: #### PREGQNT #### [facility] [address] [place] [address] Dr. Venkat SloanCholesterol.total/Cholesterol in HDL [Mass ratio]3.1 {ratio} NormalThe [facility] HospitalComment on above:Performed By: #### PREGQNT #### [facility] [address] [place] [address] Dr. Venkat Krueger NORMAL> or = 60 mg/dl - LOW CARDIOVASCULAR RISK <40 mg/dl - HIGH CARDIOVASCULAR RISKKettering Health TroyComment on above:Performed By: #### PREGQNT #### [facility] [address] [place] [address] Dr. Venkat SloanLDL CALC NORMALSEE BELOWKettering Health TroyComment on above:Result Comment: <100 mg/dl OPTIMAL 100 - 129 mg/dl NEAR OR ABOVE OPTIMAL 130 - 159 mg/dl BORDERLINE HIGH 160 - 189 mg/dl HIGH >190 mg/dl VERY HIGH Performed By: #### PREGQNT #### [facility] [address] [place] [address] Dr. Venkat SloanTriglyceride [Mass/Vol]48 mg/dLNormal<=150[facility] Comment on above:Performed By: #### PREGQNT #### [facility] [address] [place] [address] Dr. Venkat SloanVLDL CALC9.6 mg/dLNoShelby Memorial HospitalComment on above: Performed By: #### PREGQNT #### [facility] [address] [place] [address] Dr. Venkat SloanPROF 14(COMP METB)on 98-72-6737Gxnftyz [Mass/Vol]4.0 g/dLNormal 3.4-5.0[facility] CenterComcovenant medical center on above:Performed By: #### INFLUAB #### [facility] [address] [place] [address] Dr. Venkat SloanAlbumin/Globulin [Mass ratio]1.3 {ratio}NormalThe [facility] HospitalComment on above:Performed By: #### INFLUAB #### [facility] [address] [address] [address] Venkat Hilliard [Catalytic activity/Vol]58 U/PZljmjo57-476Yqe [facility] HospitalComment on above:Performed By: #### INFLUAB #### [facility] [address] [address] [address] Venkat HectorT [Catalytic activity/Vol]20 U/ZBynpqu38-97Ass [facility] HospitalComment on above:Performed By: #### INFLUAB #### [facility] [address] [address] [address] Venkat Leeon gap [Moles/Vol]10.4 mmol/LNormalThe [facility] Comment on above:Performed By: #### INFLUAB #### [facility] [address] [place] [address] Dr. Venkat SloanAST [Catalytic activity/Vol]11 U/LCritically wte25-37Ptk [facility] HospitalComment on above:Performed By: #### INFLUAB #### [facility] [address] [place] [address] Dr. Venkat SloanBilirubin [Mass/Vol]0.8 mg/dLNormal0.2-1.0[facility] Comment on above:Performed By: #### INFLUAB #### [facility] [address] [place] [address] Dr. Venkat SloanCalcium [Mass/Vol]9.0 mg/dLNormal8.5-10.1[facility] Comment on above:Performed By: #### INFLUAB #### [facility] [address] [place] [address] Dr. Venkat SloanChloride [Moles/Vol]106 mmol/ZUznzvf72-473Cmj [facility] Comment on above:Performed By: #### INFLUAB #### [facility] [address] [place] [address] Dr. Venkat SloanCO2 [Moles/Vol]27.0 mmol/IVusfoc14.0-32.0The [facility] Comment on above:Performed By: #### INFLUAB #### [facility] [address] [address] [address] Venkat SloanCreatinine [Mass/Vol]0.70 mg/dLNormal0.55-1.02[facility] CenterComment on above:Performed By: #### INFLUAB #### [facility] [address] [address] [address] Venkat LewGFR-AF [place] CITIZ[place]>60Normal>=60The [facility] HospitalComment on above:Performed By: #### INFLUAB #### [facility] [address] [address] [address] Venkat LewGFR-NON AF [place]>60Normal>=60The [facility] HospitalComment on above:Performed By: #### INFLUAB #### [facility] [address] [place] [address] Dr. Venkat SloanGlobulin (S) [Mass/Vol]3.2 g/dLNormalThe [facility] HospitalComment on above:Performed By: #### INFLUAB #### [facility] [address] [place] [address] Dr. Venkat SloanGlucose [Mass/Vol]92 mg/bOSlbymd01-886IzuChillicothe [facility] Center Comment on above:Performed By: #### INFLUAB #### [facility] [address] [place] [address] Dr. Venkat SloanPotassium [Moles/Vol]4.4 mmol/LNormal3.5-5.1[facility] Comment on above:Performed By: #### INFLUAB #### [facility] [address] [place] [address] Dr. Venkat SloanProtein [Mass/Vol]7.2 g/dLNormal6.4-8.2[facility] Comment on above:Performed By: #### INFLUAB #### [facility] [address] [place] [address] Dr. Venkat SloanSodium [Moles/Vol]139 mmol/YIyuppq778-725LgeChillicothe [facility] Center Comment on above:Performed By: #### INFLUAB #### [facility] [address] [place] [address] Dr. Venkat SloanUrea nitrogen [Mass/Vol]13.0 mg/dLNormal7.0-18.0The [facility] on above:Performed By: #### INFLUAB #### [facility] [address] [place] [address] Dr. Venkat SloanUrea nitrogen/Creatinine [Mass ratio]18.6 mg/mgNoShelby Memorial HospitalComment on above:Performed By: #### INFLUAB #### [facility] [address] [place] [address] Dr. Venkat SloanTSHon 69-80-8944ENS0.318 uIU/mLNormal0.358-3.740The [facility] on above:Performed By: #### PREGQNT #### [facility] [address] [place] [address] Dr. Venkat SloanURIC ACID SERUMon 22-40-8835Zcxvy [Mass/Vol]3.9 mg/dLNormal 2.6-6.0The [facility] HospitalComment on above:Performed By: #### PREGQNT #### [facility] [address] [place] [address] Dr. Venkat SloanXR CSPINE MIN 4 VIEWSon 59-39-9092TB CSPINE MIN 4 VIEWS EXAMINATION: XR CSPINE MIN 4 VIEWS HISTORY: Cervical radiculopathy COMPARISON: No relevant comparison available. FINDINGS: BONES: Normal. No significant spondylosis, scoliosis, fracture, or visible bony lesion. DISC SPACES: Normal. No significant disc height narrowing, subluxation, or endplate abnormality. PARASPINOUS: Negative. No paraspinous abnormality is seen. OTHER: Negative. IMPRESSION: No acute disease. Electronically authenticated by: DUDLEY DAVIS Date: 2021-09-24 21:16[facility] TroyPREG QUANT HCGon 93-33-9040MRH QUANT<1NormalThe [facility] HospitalComcovenant medical center on above:Performed By: #### INFLUAB #### [facility] [address] [place] [address] Dr. Venkat Madrid RANGESEE BELOWNoShelby Memorial HospitalComment on above: Result Comment: 5-50 0-1 WEEK 40-300 1-2 WEEKS 100-1,000 2-3 WEEKS 500-6,000 3-4 WEEKS 5,000-200,000 1-2 MONTHS 10,000-100,000 2-3 MONTHS 3,000-50,000 2ND TRIMESTER 1,000-50,000 3RD TRIMESTERPerformed By: #### INFLUAB #### [facility] [address] [place] [address] Dr. Venkat SloanUS PELVIS AND TRANSVAGon 22-22-0232FB PELVIS AND TRANSVAG EXAMINATION: US PELVIS AND [...] Electronically authenticated by: DUDLEY DAVIS Date: 2021-08-17 07:01[facility] TroyCOVID Quick Testingon 44-97-8378HjepovBajvwhexQafac [employer] Other Vital Signs Date TimeVital SignValuePerforming BxyawdhcdJiidjrmo37-15-4528 11:01-0400Body mass index (BMI) [Ratio]26.45 kg/m2Josi VILLARREAL Work Phone: [facility] Gmsyfyrhtp58-01-0587 11:01-0400Body tcraqp04.5 kg Josi VILLARREAL Work Phone: [facility] HospitalFpxqsepdph82-86-5343 11:01-0400Diastolic blood mm[Hg]Josi VILLARREAL Work Phone: [phone]-[facility] HospitalWbjqhwkzaj38-65-9789 11:01-0400Systolic blood mm[Hg]Josi VILLARREAL Work Phone: [phone]-[facility] HospitalNlzdaoqhxx90-75-8702 14:22-0400Body mass index (BMI) [Ratio]27.55 kg/n9Tivvu Jennifer DO Work Phone: [phone] [place], [place] [address]Ycelsqbjqc70-87-9724 14:22-0400Body .13 kgCorey Jennifer DO Work Phone: [phone] [place], [place] [address]Pprggosymu65-44-8686 14:22-0400Diastolic blood srqgvahm19 mm[Hg]Wisam Jennifer DO Work Phone: [phone] [place], [place] [address]Gaextudgdf08-12-9196 14:22-0400Systolic blood lmkgnahq925 mm[Hg]Wisam Jennifer DO Work Phone: [phone] [place], [place] [address]Lxfkkjevxb89-37-8325 10:41-0400Body mass index (BMI) [Ratio]27.93 kg/m2Josi Genie VILLARREAL Work Phone: [phone] [place], [place] [address]Vhvouxvyzm42-40-7599 10:41-0400Body xizyzu13.04 kgJosi Genie PA Work Phone: [phone] [place], [place] [address]Jbmktldvbz46-73-0224 10:41-0400Diastolic blood ubmmosva77 mm[Hg]Josi VILLARREAL Work Phone: [phone] [place], [place] [address]Fuwrtrnseb78-96-8033 10:41-0400Systolic blood dbtiojsb887 mm[Hg]Josi VILLARREAL Work Phone: [phone] [place], [place] [address]Wzxpbyqxzn71-04-4614 12:02-0400Body mass index (BMI) [Ratio]27.78 kg/a5Ktluy Jennifer DO Work Phone: [phone] [place], [place] [address]Qoiaejbvsd36-94-6896 12:02-0400Body wfwlof34.68 kgCorey Jennifer DO Work Phone: [phone] [place], [place] [address]Mtiwbvkegl16-31-4791 12:02-0400Diastolic blood gvomjukm51 mm[Hg]Wisam Jennifer DO Work Phone: [facility] HospitalFpqzupkyjk38-48-9472 12:02-0400Systolic blood mizmxaea525 mm[Hg]Wisam Jennifer DO Work Phone: [facility] HospitalWklfbxrqqb49-01-3783 09:27-0500Body nrvosz993.94 cmJ.W. [facility]02-25-2024 09:27-0500Body mass index (BMI) [Ratio]30.8 kg/m8VnuabrpivJ.W. [facility] Memorial Hospital02-25-2024 09:27-0500Body qoqmjmfndhm09.1 [degF][facility]02-25-2024 09:27-0500Body .04 kgJ.W. [facility]02-25-2024 09:27-0500Heart rate 78 /[facility]02-25-2024 09:27-0500Respiratory rate16 /[facility]02-25-2024 09:27-8096PlN7% (BldA) [Mass fraction]98 %[facility]02-13-2024 15:14-0500Body mass index (BMI) [Ratio]30.04 kg/p7Wpnsv Jennifer DO Work Phone: [facility] HospitalOmxagigvzn45-10-7482 15:14-0500Body .12 kgCorey Jennifer DO Work Phone: [facility] HospitalYzwspdnhpi66-88-1587 15:14-0500Diastolic blood clulcifo73 mm[Hg]Wisam Jennifer DO Work Phone: [facility] HospitalYheuzrewdl26-24-0376 15:14-0500Systolic blood ocqfsrtt330 mm[Hg]Wisam Jennifer DO Work Phone: [facility] HospitalGpqrukjykk72-16-2594 18:45-0400Body vjyfwn569.94 Ivan Martinez Other [employer] Other 11-02-2021 18:45-0400Body mass index (BMI) [Ratio] 28.34 kg/i2Kbxeomvle Juan Other [employer] Other 11-02-2021 18:45-0400Body aprxskgkuvv02.4 [degF] Mohini Martinez Other [employer] Other 11-02-2021 18:45-0400Body jgdqoj36.04 kgStmarco Martinez Other [facility] Other 11-02-2021 18:45-0400Respiratory rate18 /minSjoe Martinez Other [facility] Other 11-02-2021 18:45-2871KyK7% (BldA) [Mass fraction]99 % Mohini Martinez Other [facility] Other 09-27-2021 11:45-0400Body .94 cmDavid Hykes Other [facility] Other 09-27-2021 11:45-0400Body mass index (BMI) [Ratio] 28.34 kg/i5Ahcoz Hykes Other [facility] Other 09-27-2021 11:45-0400Body awrxjx33.04 kgDavid Hykes Other [facility] Other Encounters Encounter DateEncounter TypeCare ProviderFacilityStart: 01-30-2025 End: 79-77-6800syuefineulDjguvka Hoy MD Work Phone: -[facility] HospStart: 01-30-2025 End: 16-45-3110Aqkgvjmk ReferredDouglas Hoy M MD-[facility] Start: 09-24-2024 End: 48-95-5824Qoshrz flowsSandy VILLARREAL Work Phone: NOBD BCP OBStart: 09-24-2024 End: 30-40-1253Iytrua flowsSandy VILLARREAL Work Phone: NORE BCP OBStart: 09-24-2024 End: 18-61-4441ngigscpqytGDM Lex AvailableStart: 09-24-2024 End: 86-39-9069Iryowk follow up visit related to original Marianela VILLARREAL Work Phone: [facility] OBComment on above:Postoperative visit; S/P laparoscopy; Cystostomy status (HCC)Start: 09-13-2024 End: 10-97-6693Evusnllsf Result EncounterCorey Jennifer DO Work Phone: noms External Department UnsolicitedStart: 09-13-2024 End: 42-79-0630Fbokmtbho Result EncounterCorey Jennifer DO Work Phone: noms External Department UnsolicitedStart: 09-13-2024 End: 28-11-7294wqffifzpnkLztcp FazioFacility:[facility] Start: 08-28-2024 End: 85-29-9558mibkhezikqWMXUZ FAZIONot AvailableStart: 08-28-2024 End: 74-09-1518Iwqoem outpatient visit 15 minutesCorey Jennifer DO Work Phone: [facility] OBComment on above:Pre-op examination; Cyst of right ovary; Complex ovarian cyst; Pelvic painStart: 08-28-2024 End: 79-38-4597Kzkndhbtsgxmi examination doneCorey Jennifer DO Work Phone: [facility] HealthcareStart: 08-27-2024 End: 58-81-0312Vuqesqzif Result EncounterJosi VILLARREAL Work Phone: noms External Department UnsolicitedStart: 08-27-2024 End: 05-85-5745Yvgjzvnex Result EncounterJosi VILLARREAL Work Phone: [facility] External Department UnsolicitedStart: 08-21-2024 End: 53-59-3347Nklmnt flowsheetJosi VILLARREAL Work Phone: [facility] BCP OBStart: 08-21-2024 End: 12-64-3162Lnmfdu flowsheetJosi VILLARREAL Work Phone: [facility] BCP OBStart: 08-21-2024 End: 41-03-6346Pcxwbb outpatient visit 15 minutesAmy Genie VILLARREAL Work Phone: [facility] BCP OBComment on above:Cyst of right ovary; Complex ovarian cystStart: 08-21-2024 End: 60-91-3752nfxgzdvppmBFK RAMEYNot AvailableStart: 08-15-2024 End: 65-85-1652brjygbowoyTowduss Nabila [facility] Work Phone: Start: 08-15-2024 End: 12-76-8301Doekpbpx ReferredMelissa Marker DO Work Phone: [facility] [address] HospStart: 07-19-2024 End: 79-19-6532Vugueo outpatient visit 15 minutesCorey Jennifer DO Work Phone: [facility] BCP OBComment on above:Irregular periods/menstrual cycles; Pelvic pain in femaleStart: 07-19-2024 End: 98-31-7621jqjqafgjcmYTPZG FAZIONot AvailableStart: 06-28-2024 End: 96-07-3681Dshqvzhsa Result EncounterCorey Jennifer DO Work Phone: NOJE External Department UnsolicitedStart: 06-28-2024 End: 68-11-4179Jbugbwkwg Result EncounterCorey Jennifer DO Work Phone: noMS External Department UnsolicitedStart: 03-28-2024 End: 32-30-8129Fburehgwd Result EncounterCorey Jennifer DO Work Phone: noMS External Department UnsolicitedStart: 03-28-2024 End: 71-38-7520Ihkcrowgj Result EncounterCorey Jennifer DO Work Phone: noms External Department UnsolicitedStart: 03-01-2024 End: 22-79-4983Mnrdwj flowsheetCorey Jennifer DO Work Phone: noms BCP OBStart: 03-01-2024 End: 36-64-4295Aagwre flowsheetCorey Jennifer DO Work Phone: noms BCP OBStart: 03-01-2024 End: 53-97-5980Zxmjvq outpatient visit 15 minutesCorey Jennifer DO Work Phone: noms [facility] OBComment on above:Abnormal vaginal bleeding; PCOS (polycystic ovarian syndrome)Start: 03-01-2024 End: 80-71-8865honzpchllxWHAJJ FAZIONot AvailableStart: 09-26-2023 End: 66-26-1231luxjyxasiqJYSKS FAZIONot AvailableStart: 08-09-2023 End: 76-82-3872Jympmuqsv Result EncounterCorey Jennifer DO Work Phone: noms External Department UnsolicitedStart: 08-09-2023 End: 06-36-1424Wwglpxgiw Result EncounterCorey Jennifer DO Work Phone: noms External Department UnsolicitedStart: 08-02-2023 End: 54-37-3855Iebhhfkvp Result EncounterCorey Jennifer DO Work Phone: noms External Department UnsolicitedStart: 08-02-2023 End: 95-12-2154Cfoclcmrt Result EncounterCorey Jennifer DO Work Phone: noms External Department UnsolicitedStart: 07-26-2023 End: 52-66-4305Ydnzlsnnt Result EncounterCorey Jennifer DO Work Phone: noms External Department UnsolicitedStart: 07-26-2023 End: 40-02-4962Dqtadecop Result EncounterCorey Jennifer DO Work Phone: noms External Department UnsolicitedStart: 07-22-2023 End: 27-20-0441Ccflpzgjf Result EncounterCorey Jennifer DO Work Phone: NOAQ External Department UnsolicitedStart: 07-22-2023 End: 32-78-0052Dxyjvlrve Result EncounterCorey Jennifer DO Work Phone: NOHR External Department UnsolicitedStart: 07-19-2023 End: 00-85-0535Kpwsozdca Result EncounterCorey Jennifer DO Work Phone: NOWV External Department UnsolicitedStart: 07-19-2023 End: 96-51-3777Emsuaspji Result EncounterCorey Jennifer DO Work Phone: NOMS External Department UnsolicitedStart: 07-12-2023 End: 43-29-8323Gjlbflgoy Result EncounterCorey Jennifer DO Work Phone: NOAP External Department UnsolicitedStart: 07-12-2023 End: 18-78-3681Fwtdbxlzy Result EncounterCorey Jennifer DO Work Phone: NOHU External Department UnsolicitedStart: 07-07-2023 End: 02-63-5439Mbpplwumz Result EncounterCorey Jennifer DO Work Phone: NOTA External Department UnsolicitedStart: 07-07-2023 End: 42-88-4601Saenqlkdg Result EncounterCorey Jennifer DO Work Phone: NODO External Department UnsolicitedStart: 06-28-2023 End: 30-27-4927Jjetebhtv Result EncounterCorey Jennifer DO Work Phone: NOMK External Department UnsolicitedStart: 06-28-2023 End: 43-26-2210Uhkkenfzu Result EncounterCorey Jennifer DO Work Phone: NOMS External Department UnsolicitedStart: 06-09-2023 End: 44-66-5087Uryrhkont Result EncounterCorey Jennifer DO Work Phone: NOMS External Department UnsolicitedStart: 06-09-2023 End: 48-93-6264Rlkfjmuay Result EncounterCorey Jennifer DO Work Phone: NOLX External Department UnsolicitedStart: 05-26-2023 End: 75-63-3090Jgletjynn Result EncounterCorey Jennifer DO Work Phone: NOKP External Department UnsolicitedStart: 05-26-2023 End: 17-28-3654Wvkgewqyt Result EncounterCorey Jennifer DO Work Phone: noms External Department UnsolicitedStart: 05-22-2023 End: 94-89-0684qzzajabxisVzyiumxzoMer[facility] Health [facility] Work Phone: Start: 05-22-2023 End: 70-28-1174Vlplezc encounter procedureUn[facility] Work Phone: Start: 05-10-2023 End: 21-43-3409Dytpqovd flow sheetCorey Jennifer DO Work Phone: NOIB BCP OBComment on above:Second trimester ; Diabetes mellitus screeningStart: 04-01-2023 End: 60-17-9244Vblakwist Result EncounterCorey Jennifer DO Work Phone: NOET External Department UnsolicitedStart: 04-01-2023 End: 86-07-5668Vrnpeqlgp Result EncounterCorey Jennifer DO Work Phone: NOBP External Department UnsolicitedStart: 07-09-2022 Encounter for other preprocedural examinationDR WISAM JENNIFER .[facility]: 07-08-2022 End: 20-21-3581ooexxttimkFT WISAM JENNIFER .Facility:D8Otdkq: 06-30-2022 End: 90-09-4608bzbhoidelsRA WISAM JENNIFER .Facility:Z0Xuaot: 06-30-2022 End: 55-08-3058Kbakozwqp for other preprocedural examinationDR WISAM JENNIFER . Facility:V3Otoeu: 06-21-2022 End: 26-57-6145gdmcrfxzwqPS WISAM JENNIFER .Facility:V0Qjjel: 05-31-2022 End: 50-94-1651vocwtzupvyRC IRON HOY .Facility:R0Uexre: 05-20-2022 End: 46-56-5407yasqzkyzlyQL WISAM JENNIFER .Facility:L6Xzzda: 05-04-2022 End: 46-24-5035cazmihebldYO WISAM JENNIFER .Facility:T4Oylzf: 05-04-2022 End: 92-23-0614ppgxkiczioPN IRON HOY .Facility:T7Slzav: 04-23-2022 End: 85-19-6982fdsjkmxzzqJJ WISAM JENNIFER .Facility:H4Nufav: 04-02-2022 End: 16-61-8443mpcldebhipRN IRON HOY .Facility:F3Xemoj: 04-01-2022 End: 82-19-6302cefozgkqwkLI IRON HOY .Facility:Q2Qfcxg: 03-24-2022 End: 73-08-7537gojqgugrrpVPXEXH CRAMERFrankiecility:W9Oziqi: 03-15-2022 End: 45-78-4079ahhoftillbMD IRON HOY .Facility:B0Lyhqu: 03-12-2022 End: 90-60-6913crczjzhtxxCQ IRON HOY .Facility:H8Tybqq: 02-17-2022 End: 78-81-8357vyswfiuapuKF WISAM JENNIFER .Facility:M3Cazda: 02-10-2022 End: 42-69-4721whdyjkqkkfOS IRON HOY .Facility:Q3Rubux: 02-03-2022 End: 94-80-3674uprqjzrcqgSY IRON HOY .Facility:N5Xyezj: 40-50-0766mpjqlrhyll DR WISAM JENNIFER .Facility:O2Lixlu: 01-13-2022 End: 61-22-4441mjrquqdtjyLX WISAM JENNIFER .Facility:I5Ffdbv: 01-12-2022 End: 03-00-9514ajwwgajjhoNB IRON HOY .Facility:T9Nikgk: 12-24-2021 End: 80-88-9864afztqqdplsBC IRON HOY .Facility:C5Denqc: 11-21-2021 End: 00-58-9699lrktgefzypLU WISAM JENNIFER .Facility:X4Dpbpv: 20-10-8767Exushihjt for general adult medical examination without abnormal findingsDR IRON HOY . [facility]: [facility]2021 End: 31-92-1471phzksideigEU IRON HOY .Facility:L3Lbost: 09-26-2021 End: 48-58-7578Oouobento for general adult medical examination without abnormal findingsDR IRON HOY .Facility:Z0Oclux: 09-24-2021 End: 50-98-5189zdbkuhlsnuBU IRON HOY .Facility:V5Bkvmi: 08-17-2021 End: 40-92-2400bfceczpwqzCA WISAM JENNIFER .Facility:U5Tehah: 08-15-2021 End: 41-77-0465clhcppjylzEX WISAM JENNIFER .Facility:R1Dxnsf: 01-27-2021 End: 05-14-7249xnmbexxuczXejcrwbyv [place] Other [employer] Other Start: 48-10-0747Xfdwyu outpatient visit 15 minutes Mohini MartinezFPRj Urgent Care ClydeStart: 24-14-6659Yxkguu outpatient new 45 minutesDavid HykesFPG Gastroenterology Procedures DateProcedureProcedure DetailPerforming ClinicianStart: 09-59-8608JPV CBC WITH AUTO DIFFCorey Jennifer DO Work Phone: Start: 04-21-0380PTV Vanessa VILLARREAL Work Phone: Start: 35-59-8461QOL CBC WITH AUTO DIFFCorey Jennifer DO Work Phone: Start: 59-01-4812DN PELVIS W/ TRANSVAGINALCorey Jennifer DO Work Phone: Start: 29-70-5396WJ OB BPP W NON-STRESSCorey Jennifer DO Work Phone: Start: 43-91-6627UT OB BPP W NON-STRESSCorey Jennifer DO Work Phone: Start: 51-26-1875FR OB BPP W NON-STRESSCorey Jennifer DO Work Phone: Start: 54-59-9352KY OB BPP W NON-STRESSCorey Jennifer DO Work Phone: Start: 56-10-1274PF OB BPP W NON-STRESSCorey Jennifer DO Work Phone: Start: 18-66-4231FJ OB BPP W NON-STRESSCorey Jennifer DO Work Phone: Start: 24-57-8845BA OB BPP W NON-STRESSCorey Jennifer DO Work Phone: Start: 26-12-9006AC OB BPP W NON-STRESSCorey Jennifer DO Work Phone: Start: 66-78-0305JF AMNIOTIC FLUID VOLUMECorey Jennifer DO Work Phone: Start: 01-92-8850VP OB GROWTHCorey Jennifer DO Work Phone: Start: 28-78-5795DOA COVID/FLU/RSVStart: 05-10-2023 Urnls dip stick/tablet rgnt non-auto w/o micrscpCorey Jennifer DO Work Phone: Start: 33-03-1743XL OB ANATOMYCorey Jennifer DO Work Phone: Start: 31-98-1145FO OB TRANSVAGINALCorey Jennifer DO Work Phone: Start: 27-81-5703Rpabazplpom observation [Identifier] in Cervix by Cyto stainCorey Jennifer DO Work Phone: Plan of Treatment DateCare ActivityDetailAuthorStart: 57-28-5376Twpzvdkmo for malignant neoplasm of cervixNOMS HealthcareStart: 00-71-5398Jhpxldgu identified in Urine by Culture Urine CultureUniversity Hospitals Lake West Medical Centertart: 65-60-7636Suelb culture [facility] Centertart: 78-84-3441Zsnwrbxtu vaccinationNOMS HealthcareStart: 09-24-2024 End: 44-46-3422Pwaulut encounter eejbirlhk66/30/2025 10:50 AM EDT Office Visit [facility] OB [address] [place] [phone] Josi Prescott, PA [address] [place] [address] [facility] BCP OBStart: 09-24-2024 End: 97-66-8434Vehhozd encounter gunyuhyid73/30/2025 8:50 AM EDT Consult [facility] OB [address] [place] [phone] Wisam Rodriguez, DO [address] [place] [address] [facility] BCP OBStart: 08-28-2024 End: 99-00-7353Zevseam encounter gjvwtbzze05/03/2025 2:00 PM EDT Consult [facility] OB [address] [place] [phone] Wisam Rodriguez, DO [address] [place] [address] [facility] OBStart: 08-21-2024 End: 66-18-3899TDM tumor markerAFP tumor marker Lab Routine Complex ovarian cyst Expected: 08/21/2024 (Approximate), Expires: 08/21/2025NOMS HealthcareComment on above:Expected: 08/21/2024 (Approximate), Expires: 08/21/2025Start: 08-21-2024 End: 45-35-2200YW 125CA 125 Lab Routine Complex ovarian cyst Expected: 08/21/2024 (Approximate), Expires: 08/21/2025NOMS HealthcareComment on above: Expected: 08/21/2024 (Approximate), Expires: 08/21/2025Start: 08-21-2024 End: 28-46-4290Nqcrkpqydcifosue Ag [Mass/volume] in Serum or PlasmaCEA Lab Routine Complex ovarian cyst Expected: 08/21/2024 (Approximate), Expires: 08/21/2025[facility] HealthcareComment on above:Expected: 08/21/2024 (Approximate), Expires: 08/21/2025Start: 08-21-2024 End: 13-39-0255NXQ, tumor markerHCG, tumor marker Lab Routine Complex ovarian cyst Expected: 08/21/2024 (Approximate), Expires: 08/21/2025[facility] Healthcare Comment on above:Expected: 08/21/2024 (Approximate), Expires: 08/21/2025Start: 08-21-2024 End: 36-72-1908Weezodq dehydrogenase, isoenzymesLactate dehydrogenase, isoenzymes Lab Routine Complex ovarian cyst Expected: 08/21/2024 (Approximate), Expires: 08/21/2025[facility] Healthcare Work Phone: comment on above:Expected: 08/21/2024 (Approximate), Expires: 08/21/2025Start: 78-01-5814Naeqg cultureUniversity Hospitals Lake West Medical Centertart: 27-47-2818Elcqphnz identified in Urine by CultureUrine Culture [facility] Centertart: 05-24-2024 End: 54-07-8121Esdcoak encounter pbnninbvj64/27/2025 8:30 AM EST Office Visit [facility] [address] [place] [address] Wisam Rodriguez, DO [address] [place] [address] [facility] BCP OBStart: 03-01-2024 End: 46-42-0007MMV W Auto Differential panel - BloodCBC and differential Lab Routine Abnormal vaginal bleeding Expected: 03/01/2024 (Approximate), Expires: 03/01/2025[facility] HealthcareComment on above:Expected: 03/01/2024 (Approximate), Expires: 03/01/2025Start: 03-01-2024 End: 27-64-4740PGKWNGIJ Lab Routine Abnormal vaginal bleeding Expected: 03/01/2024, Expires: 03/01/2025[facility] HealthcareComment on above:Expected: 03/01/2024, Expires: 03/01/2025Start: 03-01-2024 End: 37-21-7247BUPR-sulfateDHEA-sulfate Lab Routine Abnormal vaginal bleeding Expected: 03/01/2024 (Approximate), Expires: 03/01/2025[facility] HealthcareComment on above:Expected: 03/01/2024 (Approximate), Expires: 03/01/2025Start: 03-01-2024 End: 57-05-8496Cfqmlhld stimulating hormoneFollicle stimulating hormone Lab Routine Abnormal vaginal bleeding Expected: 03/01/2024 (Approximate), Expires: 03/01/2025 HealthcareComment on above:Expected: 03/01/2024 (Approximate), Expires: 03/01/2025Start: 03-01-2024 End: 72-43-5520hQJ, quantitative, pregnancyhCG, quantitative, Lab Routine Abnormal vaginal bleeding Expected: 03/01/2024 (Approximate), Expires: 03/01/2025[facility] Work Phone: comment on above:Expected: 03/01/2024 (Approximate), Expires: 03/01/2025Start: 03-01-2024 End: 75-28-4248Qavfdqplux A1c/Hemoglobin.total in BloodHemoglobin A1c Lab Routine Abnormal vaginal bleeding Expected: 03/01/2024 (Approximate), Expires: 03/01/2025[facility] HealthcareComment on above:Expected: 03/01/2024 (Approximate), Expires: 03/01/2025Start: 03-01-2024 End: 52-74-4443Xagklrlsemd hormoneLuteinizing hormone Lab Routine Abnormal vaginal bleeding Expected: 03/01/2024 (Approximate), Expires: 03/01/2025[facility] HealthcareComment on above:Expected: 03/01/2024 (Approximate), Expires: 03/01/2025Start: 03-01-2024 End: 05-23-8319Zglwyfjwkrv [Units/volume] in Serum or PlasmaTSH Lab Routine Abnormal vaginal bleeding Expected: 03/01/2024 (Approximate), Expires: 03/01/2025NO[facility] HealthcareComment on above:Expected: 03/01/2024 (Approximate), Expires: 03/01/2025Start: 03-01-2024 End: 04-40-6787Flalmiyhb (T4) free [Mass/volume] in Serum or PlasmaT4, free Lab Routine Abnormal vaginal bleeding Expected: 03/01/2024 (Approximate), Expires: 03/01/2025NO[facility] HealthcareComment on above:Expected: 03/01/2024 (Approximate), Expires: 03/01/2025Start: 03-01-2024 End: 28-13-8956OO for pregnancyUS PELVIS-TRANSVAG IF INDICATED Imaging Routine Abnormal vaginal bleeding Expected: 03/01/2024 (Approximate), Expires: 03/01/2025NO[facility] HealthcareComment on above:Expected: 03/01/2024 (Approximate), Expires: 03/01/2025Start: 03-01-2024 End: 88-19-5389Qbeyxxe encounter epctsocac06/05/2024 11:10 AM EST Office Visit [facility] OB [address] [place] [phone] Wisam Rodriguez, DO [address] [place] [address] [facility]GL[facility] OBComment on above:ArrivedStart: 84-33-3574Veajztwwp for malignant neoplasm of cervixHPV/CotestNOMS Healthcare Start: 21-09-3806Kqexdwkbv vaccinationInfluenza Vaccine (#1)[facility] Start: 05-26-2023 End: 41-98-6934Zolfvwm encounter irvyactxd48/29/2024 9:50 AM EST Routine [facility] OB [address] [place] [address] Wisam Rodriguez, DO [address] [place] [address] [facility] BCP OBStart: 05-10-2023 End: 20-78-4657YXI panel - Blood by Automated countCBC Lab Routine Diabetes mellitus screening Expected: 05/10/2023 (Approximate), Expires: 05/10/2024[facility] Work Phone: comment on above:Expected: 05/10/2023 (Approximate), Expires: 05/10/2024Start: 05-10-2023 End: 09-97-3043Ibgwadpwkbu of glucose 1 hour after glucose challenge for glucose tolerance testGlucose tolerance, 1 hour Lab Routine Diabetes mellitus screening Expected: 05/10/2023 (Approximate), Expires: 05/10/2024[facility] HospitalComment on above:Expected: 05/10/2023 (Approximate), Expires: 05/10/2024Start: 24-27-1983Wjyxewmvk vaccinationInfluenza Vaccine (#1)[facility] Immunizations Immunization DateImmunizationNotesCare DtvdqepzYxxonard45-58-4570mnihhsavr virus vaccine, unspecified formulationCorey Jennifer DO Work Phone: [facility] Payers DatePayer CategoryPayerPolicy [id number] Cross Blue [id number] UnknownBCBS BCBS [id number] 2022-Present [phone] [address] [place] [address].2.840.404485.1.13.693.2.7.3.999369.22720-78-9552Sfbaacd [id number] 05.13.840.1.245970.3.579.2.317 [id number] 2.16.840.1.731978.3.579.[id number] 2.16.840.1.704683.3.57[id number] 2.16.840.1.355963.3.579.[id number] 2.16.840.1.194099.3.579.2.37741-48-6677Ljkbckr1052215 2.16.840.1.093931.3.579.2.47223-70-6201Wobcgep2897017 2.16.840.1.888100.3.579.2.97931-58-6718Huotgvo0378031 2.16.840.1.740343.3.579.2.56260-24-0590Uvwchac3762086 2.16.840.1.381471.3.579.2.12416-12-8805Ncwdzxv0614233 2.16.840.1.616520.3.579.2.60730-42-8916Hidxsjx7077573 2.16.840.1.101402.3.579.2.15713-53-6577Hhimgub2081655 2.16.840.1.795578.3.579.2.10762-69-8037Kwakwzt2362513 2.16.840.1.343366.3.579.2.03075-73-7648Auwmaqt2650330 2.16.840.1.266326.3.579.2.58527-26-0360Kzubfwh8684573 2.16.840.1.339714.3.579.2.81378-48-7689Amhfinu4658809 2.16.840.1.060616.3.579.2.59138-01-7296Awohcbn4818690 2.16.840.1.074870.3.579.2.95027-02-0365Ogsezty9851368 2.16.840.1.507860.3.579.2.20475-79-5262Pzjmlth6088684 2.16.840.1.756384.3.579.2.38885-43-3482Liynsau2241020 2.16.840.1.835162.3.579.2.28561-77-3257Rltnmor9183218 2.16.840.1.290423.3.579.2.91581-81-2070Xoywwul6659850 2.16.840.1.416832.3.579.2.46031-55-0443Epmdcps0435895 2.16.840.1.306350.3.579.2.22601-39-4335Qulvwbl3441323 2.16.840.1.657004.3.579.2.42021-72-7811Yxqfpyb8681651 2.16.840.1.341384.3.579.2.66888-07-8000Okstkii73224712 2.16.840.1.316441.3.579.2.958696-42-1161Tcwzxol72213197 2.16.840.1.203526.3.579.2.834034-26-6989Vpzvdsf3281065 2.16.840.1.622025.3.579.2.927875-63-2712Cguxbtw2476091 2.16.840.1.317968.3.579.2.004614-14-7043Mdpskxs3720887 2.16.840.1.847529.3.579.2.689571-50-8000Oglicyl7109441 2.16.840.1.399215.3.579.2.324753-64-8903DuvxycmX1Y301L1443946-67-4392Menmfpg SX5805042Xgoadkj700871668 2.16.840.1.630959.20Dnorsvp671556706078 9125f8k5-1n42-2f37-4q9z-355d3p15006lIhrmsyxCokqmq /BOo5e028z91153 yfs68063-v543-3okl-i543-ejd69h3p2m27Knufusg28437660 2.16.840.1.479805.3.579.2.343Qmnvgaw18661694 2.16.840.1.565060.3.579.2.531 Social History DateTypeDetailFacilityUnknown if ever smokedNossm [facility] Other Start: 01-28-2023 End: 27-96-5747Jtt Assigned At [facility] [employer] Other Start: 01-28-2023 End: 37-92-1301Oaasnxx smoking status NHISNever smoked tobaccoNOMS Healthcare Start: 05-10-2023 End: 86-86-5242Bavicjm intakeCurrent drinker of alcohol (finding)[facility] Start: 01-28-2023 End: 00-92-6735Mpddcaf of Social functionNOMS HealthcareHow often to you have a drink containing alcohol?2-4 times a monthNOMS HealthcareHow many standard drinks containing alcohol do you have on a typical day?1 or 2NOMS HealthcareHow often do you have 6 or more drinks on 1 occasion?WeeklyNOMS HealthcareStart: 68-86-8097Wjhxjah Commentcaffeine: occasionalNOMS HealthcareStart: 11-26-2022 PregnancyNOMS HealthcareStart: 78-98-7180Vrb Assigned At BirthFeCorrigan Mental Health Center HealthcareStart: 89-69-3391Ivsflo identityIdentifies as female gender (finding) NOM[facility] HealthcareStart: 63-88-0165Hribno orientationHeterosexual (finding)[facility] HealthcareStart: 31-18-7969SloQjzdal (finding)[facility] Start: 97-76-1511WroSpcsfbWOJTLexington Medical Center Clinical Notes 12-22-2020 to 09-24-2024 Note Date & HwgtNpqiRspcwhpw17-77-9875 History of Present illness Narrative* CHERELLE Abdi [...] Hypoglycemia 05/26/2023 JOSESITO (amniotic fluid index) increased ([facility]) 05/26/2023 Third trimester ([facility]) 06/13/2023 32 weeks gestation of ([facility]) 06/30/2023 Resolved Ambulatory Problems Diagnosis Date Noted [...] 2. S/P laparoscopy Z98.890 3. Cystostomy status ([facility]) Z93.50 Pt present today for a 1 week post operative Dx lap Left ovarian cytotomy. Pt states she is doing well w/no issues. pathology reviewed and restrictions lifted Documented by Alethea Reich MA on behalf of: CHERELLE Abdi documented in this encounterLee's Summit HospitalXoqhtpwpqr23-28-2884 History of Present illness Narrative* Wisam Rodriguez, - 08/28/2024 2:00 PM EDT Reason for Appointment: Patient ID: Kasandra Macias is a 28 y.o. female who presents for Pre-op Visit Patient presents today for Pre Op appointment. Patient is scheduled to undergo Diagnostic Laparoscopy, possible KAY, possible FOE, possible BSO on 09/13/[address] Rodriguez at [facility]. MEDICATIONS No current outpatient medications ALLERGIES [...] nursing note reviewed. Exam conducted with a tower helper present. Vitals: Estimated body mass index [...] reviewed, and patient is to proceed to [facility] OR. Follow Up: Patient is to follow up between 1-2 weeks post operative to assess proper healing and recovery fromprocedure. Documented by Melissa Thornton LPN on behalf of: Wisam Rodriguez DO documented in this encounterLee's Summit HospitalMpaqvlujto48-99-0326 History of Present illness Narrative* CHERELLE Abdi [...] behalf of: CHERELLE Abdi documented in this encounterLee's Summit HospitalAymuuegraa46-52-8593 History of Present illness Narrative* Abigail Guzman, PARUL - 07/19/2024 11:40 AM EDT Reason for [...] nursing note reviewed. Exam conducted with a tower helper present. Vitals: Estimated body mass index [...] patient. Patient given 3 samples of Tyblume Lot:[id number] Exp: 02/19 Documented by Abigail Guzman LPN on behalf of: Wisam Rodriguez DO documented in this encounterLee's Summit HospitalFepnivajgq94-72-3210 History of Present illness Narrative* Abigail Guzman [...] nursing note reviewed. Exam conducted with a tower helper present. Vitals: Estimated body mass index [...] by Abigail Guzman LPN on behalf of: Wisam Rodriguez DO documented in this encounterLee's Summit HospitalMkomnbtinm40-08-4632 History of Present illness Narrative* Melissa Thornton [...] nursing note reviewed. Exam conducted with a tower helper present. Vitals: Estimated body mass index [...] by Melissa Thornton LPN on behalf of: Wisam Rodriguez DO documented in this encounterLee's Summit HospitalDyxsxxmkcf13-97-8510 NoteOPERATIVE NOTE OPERATION DATE: 07/08/2022 PROCEDURE: Diagnostic laparoscopy with fulguration of ovarian endometrial implant. PREOPERATIVE DIAGNOSIS: Pelvic pain. POSTOPERATIVE DIAGNOSIS: Pelvic pain. ANESTHESIA: General. SURGEON: Wisam Rodriguez D.O. BOTTOM TURNING LATHE TURNER: DEVIN Miles URINE OUTPUT: Yellow and clear. [...] taken to Recovery Room in stable condition.[facility] HospitalDwghjvcd70-84-9437 Evaluation note* Encounter Date Diagnosis Assessment Notes Treatment Notes Treatment Clinical Notes Nov, Irritable bowel synd makeda with both constipation and diarrhea (ICD- 10 - K58.2) LABS INDICATED ABOVE START TRIAL OF DICYCLOMINE 20 BID RTO 4 WEEKS [facility] Other Evaluation noteNort [employer] Other Evaluation note* Diagnosis Second trimester state, incidental Diabetes mellitus screening Screening for diabetes mellitus documented in this encounter [facility]OM HealthcareEvaluation noteNo assessment information availableSt. Vincent Hospital Work Phone: Evaluation note* Diagnosis Abnormal vaginal bleeding Other specified noninflammatory disorder of vagina PCOS (polycystic ovarian syndrome) Polycystic ovaries documented in this encounter [facility] HealthcareEvaluation note* Diagnosis Irregular periods/menstrual cycles Pelvic pain in female Unspecified symptom associated with female genital organs documented in this encounter [facility] HealthcareEvaluation note* Diagnosis Cyst of right ovary Other and unspecified ovarian cyst Complex ovarian cyst documented in this encounter [facility] HealthcareEvaluation note* Diagnosis Pre-op examination Cyst of right ovary Other and unspecified ovarian cyst Complex ovarian cyst Pelvic pain documented in this encounter [facility] HealthcareEvaluation note* Diagnosis Postoperative visit S/P laparoscopy Other postprocedural status Cystostomy status (HCC) [facility] Narrative - Reported* Type Description Date Medical History anxiety/depression Medical HistoryIBSSurgical HistoryTONSILLECTOMY [facility] Other History general Narrative - ReportedNossm [facility] Other Reason for referral (narrative)No reason for referral information availableMemorial [facility] Work Phone: Summary Purpose Family History Relationship Condition Age [...] Date Unknown August 15, 2024 8:02p m Chief Complaint Admit Date Unknown January 30, 2025 1 2:16pm Additional Source Comments REASON FOR VISIT (unrecogniz ed section and content) ReasonCommentsRoutine VisitReasonCommentscontinuous vaginal bleeding ReasonCommentsirregular cyclesReasonCommentsOvarian CystReasonCommentsPre-op VisitReasonCommentsPost-op VisitPatient present today for a post operative visit. Pt had a Dx Lap Left ovarian cytootomy on 09/13/2024. INFORMATION SOURCE (unrecogn ized section and content) DATE CREATED AUTHOR 07/13/2022 [facility] DATE CREATED AUTHOR AUTHOR'S ORGANIZ ATION 09/16/2024 [facility] DATE CREATED AUTHOR AUTHOR'S ORGANIZ ATION 09/25/2024 [facility] EPIC Care Teams (unrecognized sec tion and content) Team MemberRelationshipSpecialtyStart DateEnd Date Iron Garcia MD [address] [place] [address] PCP - [facility]11/23/22 Team Status: Active Member Role Status Dates Iron Garcia MD Primary Care Provider Active Team Status: Inactive Member Role Status Dates Iron Garcia MD Primary Care Provider Active Start: May 22, 2023 End: May 22Trini Echevarria ProviderActiveStart: May 22, 2023 End: May 22, 2023Team MemberRelationshipSpecialtyStart DateEnd Date Iron Garcia MD [address] [place] [address] PCP - [facility]11/23/22Team MemberRelationshipSpecialtyStart DateEnd Date Iron Garcia MD [address] [facility] [place] [address] PCP - GeneralFamily Medicine11/23/22Team MemberRelationshipSpecialtyStart DateEnd Date Iron Garcia MD [address] [facility] [place] [address] PCP - GeneralFamily Medicine11/23/22Team MemberRelationshipSpecialtyStart DateEnd Date Iron Garcia MD [address] [facility] [place] [address] PCP - GeneralFamily Medicine11/23/22Team MemberRelationshipSpecialtyStart DateEnd Date Iron Garcia MD [address] [facility] [place] [address] PCP - GeneralFamily Medicine08/21/24Team MemberRelationshipSpecialtyStart DateEnd Date Iron Garcia MD [address] [facility] [place] [address] PCP - GeneralFamily Medicine08/21/24 Team Status: Inactive Member Role Status Dates Hannah David DO Attending Provider Active Start: August 15, 2024 End: August 15, 2024Team MemberRelationshipSpecialtyStart DateEnd Date Iron Garcia MD [address] [facility] [place] [address] PCP - GeneralFamily Medicine08/21/24Team MemberRelationshipSpecialtyStart DateEnd Date Iron Garcia MD [address] [facility] [place] [address] PCP - GeneralFamily Medicine08/21/24Team MemberRelationshipSpecialtyStart End Iron Garcia MD [address] [place] [address] PCP - GeneralFamily Medicine08/21/24Team MemberRelationshipSpecialtyStart DateEnd Date Iron Garcia MD PCP - GeneralFamily Medicine Iron Garcia MD [address] [place] [address] PCP - GeneralFamily Medicine08/21/24Team MemberRelationshipSpecialtyStart End Iron Garcia MD PCP - GeneralFamily Medicine Iron Garcia MD [address] [place] [address] PCP - GeneralFamily Medicine08/21/24Team MemberRelationshipSpecialtyStart End Iron Garcia MD PCP - GeneralFamily Medicine Iron Garcia MD [address] [place] [address] PCP - GeneralFamily Medicine08/21/24 Team Status: Inactive Member Role/Relationship Status Dates Iron Garcia MD Attending Provider Active Sta rt: January 30, 2025 End: January 30, 2025 Goals (unrecognized section and content) Goals may [...] BE BASED ON THE PRIMARY CLINICAL RECORDS. [facility]33[employer] [facility]. provides no warranty or guarantee of the accuracy or completeness of information in this document.
== END 2025-01-31 08:55 | disposition home or self-care (01) ==
LOC: US 08:54
PROVIDERS: PCP Family Medicine; Visit Provider Family Medicine
DX: E86.0 Dehydration (principal); N83.291 Other ovarian cyst, right side
CPT/HCPCS: 76775

== ENCOUNTER 2025-02-03 21:45 | Emergency (ER) | payer BC, SELFPAY ==
[2025-02-03 21:53] VITALS: BP 146/104; PULSE 63; TEMP 36.8; O2SAT 98; BMI 23.6
[2025-02-03 22:27] LABS: Hematocrit 40.1 % (36.0-48.0); Hemoglobin 13.5 g/dL (12.0-16.0); Immature Granulocytes Abs Auto 0.05 10^3/uL (0.00-0.03); Immature Granulocytes Pct Auto 0.4 % (0.0-0.5); Lymphocytes Absolute Auto 2.5 10^3/uL (1.2-3.8); Mean Corpuscular HGB Conc 33.7 g/dL (29.9-35.2); Mean Corpuscular Hemoglobin 30.5 pg (26.7-34.0); Mean Corpuscular Volume 90.7 fL (81.0-99.0); Platelet Count 328 10^3/uL (150-450); Red Blood Count 4.42 10^6/uL (4.20-5.40); White Blood Count 12.4 10^3/uL (4.0-11.0)
[2025-02-03 22:28] LABS: Glucose Urine UA NEGATIVE (NEGATIVE)
[2025-02-03 22:34] VITALS: BP 133/87
--- OUTSIDE RECORDS SUMMARY | 2025-02-03 22:41 | XMS_ITS | CCD ---
Author Organization [facility] CliniSywi Care Team Providers Care Claims Agent Right Of Way Name Role Phone Lydia Dudley Unavailable Mohini Martinez Unavailable JENNIFER ., DR SILVA Admitting Unavailable JENNIFER ., DR SILVA Attending Unavailable HOY ., DR PERDUE Primary Care Unavailable FLORISSANT, DR DUDLEY Emanuel Consulting Unavailable JENNIFER ., DR SILVA Consulting Unavailable LEANDRO, JAMIL Admitting Unavailable JAMIL REEVES Attending Unavailable HOY ., DR PERDUE Primary Care Unavailable HOY ., DR PERDUE Consulting Unavailable DUDLEY LANE Consulting Unavailable HOY ., DR PERDUE Admitting Unavailable HOY ., DR PERDUE Attending Unavailable HOY ., DR PERDUE Primary Care Unavailable HOY ., DR PERDUE Consulting Unavailable FLORISSANT, DR DUDLEY Emanuel Consulting Unavailable JENNIFER ., [...] PERDUE Primary Care Unavailable JENNIFER ., DR SIVLA Consulting Unavailable HOY ., DR PERDUE Admitting [...] Provider [phone] Hannah David DO Attending Provider WISAM RODRIGUEZ Attending Unavailable JOSI PRESCOTT Attending Unavailable WISAM RODRIGUEZ Attending Unavailable WISAM RODRIGUEZ Attending Unavailable JENNIFER, WISAM Attending Unavailable JOSI PRESCOTT Attending Unavailable Iron Garcia MD Primary Care Provider [phone] Iron Garcia MD Primary Care Provider [phone] Iron Garcia MD Attending Provider [phone] Hannah David Admitting Unavailable Hannah David Attending Unavailable Wisam Rodriguez Admitting Unavailable Wisam Rodriguez Attending Unavailable Iron Garcia Admitting Unavailable Iron Garcia Attending Unavailable Medications Current Medications MedicationDrug Class(es)DatesSig (Normalized)Sig (Original)[id number] 200 actuat albuterol 0.09 mg/actuat metered dose inhaler (1 source)beta2-Adrenergic AgonistStart: 68-16-7515rmlDWScej (1 source)levocetirizine (2 sources)Histamine-1 Receptor AntagonistXyzal ActivemedroxyPROGESTERone acetate 10 mg oral tablet (8 sources)ProgestinStart: 03-01-2024 End: 54-33-4029vizh 1 tablet by mouth once dailymedroxyPROGESTERone (Provera) 10 MG tablet Indications: Abnormal vaginal bleeding Take 1 tablet (10mg) by mouth Daily for 14 days 14 tablet 03/01/2024 08/21/2024 MgrhygxsemtlYeouli40-Wnnn Fum- Folic Ac-Om3 (One A Day Women's Dha) 28 mg iron- 800 mcg combo pack (2 sources)Start: 79-49-6131Gznvid53-Iron Fum-Folic Ac-Om3 (One A Day Women's Dha) 28 mg iron- 800 mcg combo pack Active PKG PO May 22, 2023 1:00amStart: 53-27-4459Mywyko57-Iron Fum-Folic Ac-Om3 (One A Day Women's Dha) 28 mg iron- 800 mcg combo pack Active PKG PO May 22, 2023 12:00amPrenatal 75-Iron Fvn-Ijbgd-Hw6 (One A Day Women's Dha) 28 mg iron- 800 mcg combo pack (1 source)Start: 10-14-1031Nxynmvjnde (1 source)Serotonin Reuptake InhibitorVitamin D3 (2 sources)Vitamin D3 Active Completed/Discontinued Medications MedicationDrug Class(es)DatesSig (Normalized)Sig (Original)24 hr buPROPion hydrochloride 150 mg extended release oral tablet (3 sources)AminoketoneStart: 11-17-2022 End: 66-74-8223tknn 1 tablet by mouth every twenty-four hours in the morning buPROPion XL (Wellbutrin XL) 150 MG 24 hr tablet Take 150 mg by mouth in the morning. 11/17/2022 06/13/2023 Frlygcaffkwg90 hr desvenlafaxine succinate 50 mg extended release oral tablet (5 sources)Serotonin and Norepinephrine Reuptake InhibitorStart: 05-11-2017 End: 42-33-1981zoee 1 tablet by mouth once daily, then take 1 tablet by mouth every twenty-four hoursDesvenlafaxine Succinate (Pristiq) 50 mg tablet extended release 24 hr Discontinued 50 MG PO Daily May 11, 2017 12:00am May 22, 2023 9:32amdicyclomine hydrochloride 20 mg oral tablet (2 sources)AnticholinergicStart: 82-91-4743ifix 1 tablet by mouth every twelve hoursfamotidine 20 mg oral tablet (1 source)Histamine-2 Receptor Antagonist End: 85-04-3570zdun 1 tablet by mouth once dailyfamotidine (Pepcid) 20 MG tablet Take 20 mg by mouth Daily 07/28/2023 Discontinued1 ml galcanezumab-gnlm 120 mg/ml auto-injector (3 sources) End: 03-10-2238pkeumrizsbti (Emgality) 120 MG/ML auto-injector Emgality 06/13/2023 DiscontinuedlevoFLOXacin 500 mg oral tablet (3 sources)Quinolone AntimicrobialStart: 07-27-2022 End: 75-60-6707yxef 1 tablet by mouth in the morninglevoFLOXacin (Levaquin) 500 MG tablet Take 1 tablet by mouth in the morning. 07/27/2022 06/13/2023 D iscontinuedlinaclotide 0.072 mg oral capsule (5 sources)Guanylate Cyclase-C AgonistStart: 05-11-2017 End: 51-68-2471mcjy 1 capsule by mouth once dailyLinaclotide (Linzess) 72 mcg capsule Discontinued 72 MCG PO Daily May 11, 2017 12:00am May 12, 2017 7:46amLinzess 72 MCG Oral for 30 Not-Takinglubiprostone 0.008 mg oral capsule (5 sources)Chloride Channel ActivatorStart: 05-12-2017 End: 80-90-3621toql 1 capsule by mouth twice dailyLubiprostone (Amitiza) 8 mcg Capsule Discontinued 8 MCG PO Twice daily May 12, 2017 12:00am May 22, 2023 9:32amtake 1 capsule by mouth every twelve hoursmagnesium oxide 400 mg oral capsule (3 sources)Start: 02-22-2023 End: 31-13-5385lvik 1 capsule by mouth in the morningmagnesium oxide 400 MG capsule Indications: Cluster headache, not intractable, unspecified chronicity pattern Take 1 capsule (400 mg) by mouth in the morning. 30 capsule 11 02/22/2023 06/13/2023 Discontinuedosmotic 24 hr metFORMIN hydrochloride 500 mg extended release oral tablet (3 sources)Biguanide End: 28-71-4689rlyZTWOAT, OSM, (Fortamet) 500 MG 24 hr tablet metFORMIN HCl ER 06/13/2023 DiscontinuedmetFORMIN, OSM, (Fortamet) 500 MG 24 hr tablet metFORMIN HCl ER 0 Activeondansetron 4 mg oral tablet (3 sources)Serotonin-3 Receptor AntagonistStart: 02-19-2023 End: 39-73-6780zszt 1 tablet by mouth twice daily as needed for nausea ondansetron (Zofran) 4 MG tablet TAKE 1 TABLET BY MOUTH TWICE DAILY NEEDED FOR NAUSEA Discontinuedpromethazine hydrochloride 25 mg oral tablet (3 sources)PhenothiazineStart: 02-24-2023 End: 78-66-4823fxed 1 tablet by mouth every six hours as neededpromethazine (Phenergan) 25 MG tablet 1 tablet as needed Orally q6h for 30 02/24/2023 06/13/2023 DiscontinuedSUMAtriptan 100 mg oral tablet (3 sources)Serotonin-1b and Serotonin-1d Receptor Agonist End: 93-52-1146CMDGqjepxyd (Imitrex) 100 MG tablet TAKE 1 TABLET AT LEAST 2 HOURS BETWEEN DOSES NEEDED TWICE A DAY 06/13/2023 Discontinued Problems Active Problems Problem ClassificationProblemDateDocumented DateEpisodic/ChronicAbdominal pain (10 sources)Abdominal pain; Translations: [Unspecified abdominal pain]Onset: 74-16-5442AclxgcwrVysajz (2 sources)Exacerbation of intermittent asthma; Translations: [Mild intermittent asthma with (acute) exacerbation]Onset: 01-27-2021 Resolved: 11-55-8724PgomvwmLovbbbhjqpwmo (1 source)Endometriosis, unspecified; Translations: [ENDOMETRIOSIS UNSPECIFIED] Onset: 25-07-4902JwfnlrwYzispl infertility (4 sources)Female infertility associated with anovulation; Translations: [FE INFERTILITY ASSOC W/ANOVULATION]Onset: 36-65-1982VymwojuIsaujugvgsjmx symptoms and ill-defined conditions (2 sources)Stoma finding; Translations: [Unspecified cystostomy status] 59-38-0369JnsvjgvVuresvoo; including migraine (5 sources)Migraine, unspecified, not intractable, without status migrainosus; Translations: [MIGRAINE UNS NOTINTRACT W/O SM]Onset: 46-25-2005FqstdevRuwfejbvl disorders (11 sources)Amenorrhea, unspecified; Translations: [Irregular menstruation, unspecified]Onset: 68-75-7381YevwzvqOpxzo aftercare (2 sources)Postoperative visit; Translations: [Encounter for other specified surgical aftercare]17-47-1598CklbtltsNgguh endocrine disorders (20 sources)Hypoglycemia; Translations: [Hypoglycemia, unspecified]Onset: 490962-71-1627BohwkkvActkn endocrine disorders (2 sources)Polycystic ovary syndrome; Translations: [Polycystic ovarian syndrome]71-03-1318OckwdjsFftzu female genital disorders (2 sources)Abnormal vaginal bleeding; Translations: [Abnormal uterine and vaginal bleeding, unspecified]65-53-1380XraqbwyRlkel female genital disorders (4 sources)Noninflammatory disorder of ovary, fallopian tube and broad ligament, unspecified; Translations: [OTH NONINFL D/O OVARY TUBE AND BRD LIG]Onset: 28-91-5122CvycmovsGmwax gastrointestinal disorders (2 sources)Irritable bowel syndrome characterized by constipation; Translations: [Irritable bowel syndrome with constipation]ChronicOther gastrointestinal disorders (2 sources)Irritable bowel syndrome; Translations: [Mixed irritable bowel syndrome]ChronicOther gastrointestinal disorders (1 source)Mixed irritable bowel syndrome; Translations: [Irritable bowel syndrome with both constipation and diarrhea K58.2]Onset: 12-22-2020 Resolved: 28-74-6733WmaytmnShomv gastrointestinal disorders (3 sources)Altered bowel function; Translations: [Change in bowel habit] 38-32-3068XgolfrimUicyroc on above:Problem List clean-up per request of Phys. EHR CmteOther nutritional; endocrine; and metabolic disorders (5 sources)Metabolic syndrome; Translations: [METABOLIC SYNDROME]Onset: 48-32-1507LpwqkceHoaxk nutritional; endocrine; and metabolic disorders (1 source)Weight loss; Translations: [Abnormal weight loss]12-90-5468Uumhplau Other nutritional; endocrine; and metabolic disorders (2 sources)Weight decreased; Translations: [Abnormal weight loss]03-09-2023 EpisodicComment on above:Problem List clean-up per request of Phys. EHR Cmte Other screening for suspected conditions (not mental disorders or infectious disease) (6 sources)Other specified abnormal findings of blood chemistry; Translations: [Patient encounter status]Onset: 22-90-9213TchdwpgeWudekua cyst (11 sources)Unspecified ovarian cyst, left side; Translations: [Other ovarian cyst, right side]Onset: 34-83-3019XfzsfrplCvlszvvk codes; unclassified (2 sources)History of laparoscopy; Translations: [Other specified postprocedural states]94-86-0254CeabtmsvZcoblvfccuj; intervertebral disc disorders; other back problems (4 sources)Other cervical disc degeneration, unspecified cervical region; Translations: [OTH CERV DISC DEGENERATION UNS CERV]Onset: 27-93-4313Dzkcwsj Unclassified (4 sources)CONTACT W/AND (SUSP) EXPOS COVID-19; Translations: [CONTACT W/AND (SUSP) EXPOS COVID-19]Onset: 02-12-2022 Past or Other Problems Problem ClassificationProblemDateDocumented DateEpisodic/ChronicAcute bronchitis (5 sources)Acute bronchitis, unspecified; Translations: [ACUTE BRONCHITIS UNSPECIFIED]Onset: 42-11-6911GfcvvoebRsfwcounzw and other anemia (20 sources)Anemia; Translations: [Anemia, unspecified]Onset: 05-26-2023 72-14-6958HqyhbigaOagtyalsbnkqs and screening for infectious disease (1 source)Contact with and (suspected) exposure to other viral communicable diseasesOnset: 01-27-2021 Resolved: 32-97-2955VsoalqxgWvpcfo and vomiting (2 sources)Nausea; Translations: [Nausea]EpisodicOther gastrointestinal disorders (2 sources)Constipation alternates with diarrhea; Translations: [Other specified symptoms and signs involving the digestive system and abdomen]EpisodicOther gastrointestinal disorders (4 sources)Abdominal distension (gaseous); Translations: [ABDOMINAL DISTENSION GASEOUS]Onset: 35-32-8017NizqivlaEbunw and delivery including normal (20 sources)Second trimester ; Translations: [Encounter for supervision of normal , unspecified, second trimester]Onset: 344977-73-3548 EpisodicOther upper respiratory infections (4 sources)Acute pharyngitis, unspecified; Translations: [ACUTE PHARYNGITIS UNSPECIFIED]Onset: 82-53-6502VndoteojDuzhpwaikkpwng and other problems of amniotic cavity (20 sources)Abnormal amniotic fluid; Translations: [Polyhydramnios, unspecified trimester, not applicable or unspecified]Onset: 596640-96-8136Lhicgqxo Residual codes; unclassified (20 sources)Gestation period, 32 weeks; Translations: [32 weeks gestation of ]Onset: 738977-90-1915KcmpilxyLykltrmhbwab (1 source)CONTACT W/AND (SUSP) EXPOS COVID-19; Translations: [CONTACT W/AND (SUSP) EXPOS COVID-19]Onset: 04-01-2022 Results Test NameValueInterpretationReference RangeFacilityUrine Cultureon 01-30-2025 Bacteria identified Cx Nom (U)30,000 colonies/ml mixed bacterial skin contaminants 2 Days PERFORMED BY: [place] [address] PATHOLOGIST TRAUMA NURSE GHAZAL TEIXEIRA M.D.NormalNemours Children'S Hospital Physician GroupComment on above: Performed By: #### CUU #### [place] [address] USAALL CBC WITH AUTO DIFFon 54-61-4581HMZJRHPAZ ABSOLUTE AUTO 0NOMS HealthcareBasophils/100 WBC (Bld)0.3 %0.2 - 2.0 %[facility] Eosinophils/100 WBC (Bld)1.7 %0.9 - 7.0 %NOMS HealthcareErythrocyte distribution width (RBC) [Ratio]13 %11.0 - 15.0 %NOMS HealthcareHematocrit (Bld) [Volume fraction]37.4 %36.0 - 48.0 %NOMS HealthcareHemoglobin (Bld) [Mass/Vol]12.4 g/dL 12.0 - 16.0 g/dLNOMS HealthcareIMMATURE GRANULOCYTES ABS AUTO0.03N[facility] Immature granulocytes/100 WBC (Bld)0.3 %0.0 - 0.5 %NOMS HealthcareInterpretation and review of laboratory resultsAbnormalNOMS HealthcareLYMPHOCYTES ABSOLUTE AUTO2.5NOMS HealthcareLymphocytes/100 WBC (Bld)22.6 %20.5 - 60.0 %NOMS HealthcareMCH (RBC) [Entitic mass]29.6 pg26.7 - 34.0 pgNOMS HealthcareMCHC (RBC) [Mass/Vol]33.2 g/dL29.9 - 35.2 g/dLNOMS HealthcareMCV (RBC) [Entitic vol]89.3 fL 81.0 - 99.0 fLNOMS HealthcareMONOCYTES ABSOLUTE AUTO1.1HighNOMS Healthcare Monocytes/100 WBC (Bld)9.8 %1.7 - 12.0 %NOMS HealthcareNEUTROPHILS ABSOLUTE AUTO 7.2HighNOMS HealthcareNeutrophils/100 WBC (Bld)65.3 %43.0 - 75.0 %NOMS HealthcarePlatelet mean volume (Bld) [Entitic vol]9.3 fLLow9.5 - 13.5 fLNOMS HealthcareTBH EO #0.2NOMS HealthcareTBH [id number] HealthcareTBH RBC4.19LowNOMS HealthcareTB [id number] HealthcareCLINISYNCNOMS Uc Medical CenterLon 09-13-2024 Specimen: [id number] Received: 09/13/24 Status: LESLEY Jones Num: [id number] Spec Type: Cytology Subm Dr: Wisam Rodriguez Tissues: A CYST FLUID (LT OVARY FLUID) Procedures: HE/2, Gross/Micro L4, Cyto Prepstain, PAPSTN Age/ Patient Sex Location Account Attending Physician Kasandra Macias 28/ LABELL [id number] Wisam Rodriguez SPEC NUM: [id number] RECD: 09/13/24 STATUS: LESLEY JONES NUM: [id number] BETHEL: 09/13/24 [facility] DR: Wisam Rodriguez ENTERED: 09/13/[address]: Shalini,Lab SPEC TYPE: Cytology DEPT: BEATRICE BOUDREAUX ENTERED BY: [id number] RECV BY: [id number] ORDERED: HE/2, Gross/Micro L4, Cyto Prepstain, PAPSTN [...] block preparations are prepared for microscopic examination. (CHERYL/cinda) Microscopic Description Microscopic examination is performed. CPT Codes 39982, 91048 Specimen: [id number] Received: 09/13/24-1339 Status: LESLEY Jones Num: [id number] Spec Type: Cytology Subm Dr: Wisam Rodriguez Tissues: A CYST FLUID (LT OVARY FLUID) Procedures: HE/2, Gross/Micro L4, Cyto Prepstain, PAPSTN Patient: Kasandra Macias [id number] (Continued) Signed (signature on file) Héctor Valverde MD 09/14/24 1017Normal [facility] Physician GroupALL LDHon 69-57-5872QBK [Catalytic activity/Vol]188 U/L81 - 234 U/LNOMS HealthcareCLINISYNCNOMS HealthcareUrine Cultureon 08-15-2024 Bacteria identified Cx Nom (U)<9,000 colonies/ml mixed bacterial skin contaminants 2 Days PERFORMED BY: [facility] [address] [place] [address] PATHOLOGIST TRAUMA NURSE GHAZAL TEIXEIRA M.D.[facility] Physician GroupComment on above: Performed By: #### CUU #### [facility] [address] [place] [address] [place]ALL CBC WITH AUTO DIFFon 09-38-7985FRNQVTHKW ABSOLUTE AUTO 0NOMS HealthcareBasophils/100 WBC (Bld)0.5 %0.2 - 2.0 %[facility] Eosinophils/100 WBC (Bld)2.6 %0.9 - 7.0 %NOMS HealthcareErythrocyte distribution width (RBC) [Ratio]13.3 %11.0 - 15.0 %NOMS HealthcareHematocrit (Bld) [Volume fraction]39.2 %36.0 - 48.0 %NOMS HealthcareHemoglobin (Bld) [Mass/Vol]12.8 g/dL 12.0 - 16.0 g/dLNONJ HealthcareIMMATURE GRANULOCYTES ABS AUTO0.02N[facility] Immature granulocytes/100 WBC (Bld)0.3 %0.0 - 0.5 %NOMS HealthcareInterpretation and review of laboratory resultsAbnormalNOMS HealthcareLYMPHOCYTES ABSOLUTE AUTO1.7NOMS HealthcareLymphocytes/100 WBC (Bld)27.1 %20.5 - 60.0 %NOMS Uc Medical CenterMCH (RBC) [Entitic mass]29.4 pg26.7 - 34.0 pgNOMS Uc Medical CenterMCHC (RBC) [Mass/Vol]32.7 g/dL29.9 - 35.2 g/dLNOResearch Medical CenterMCV (RBC) [Entitic vol]89.9 fL 81.0 - 99.0 fLNONJ HealthcareMONOCYTES ABSOLUTE AUTO0.6NOMS [facility] Monocytes/100 WBC (Bld)9.9 %1.7 - 12.0 %NOMS HealthcareNEUTROPHILS ABSOLUTE AUTO 3.7NOMS HealthcareNeutrophils/100 WBC (Bld)59.6 %43.0 - 75.0 %[facility] Platelet mean volume (Bld) [Entitic vol]8.9 fLLow9.5 - 13.5 fLNOMS HealthcareTBH EO #0.2NOMS HealthcareTBH QGD250RNYH HealthcareTB RBC4.36NOMS HealthcareTB WBC 6.2NOMS HealthcareCLINISYNCNOMS HealthcareUS PELVIS W/ TRANSVAGINALon 03-28-[address] [address] Ultrasound Report Signed Patient: KASANDRA MACIAS MR#: [id number] : 1995 Acct:[id number] Age/Sex: 28 / F ADM Date: 03/27/24 Loc: US Attending Dr: Wisam Rodriguez D.O. Ordering Physician: Wisam Rodriguez D.O. Date of Service: 03/27/24 Procedure(s): US pelvis w/ transvaginal Accession Number(s): [id number] cc: Wisam Rodriguez D.O.; Iron Garcia M.D. [place] [address] Patient Name: KASANDRA MACIAS MRN: TBH:[id number] date: 1995 Sex: F Assigned Patient Location: US Current Patient Location: Accession/Order Number: [id number] Exam Date: 03/27/2024 14:05 Report Date: 03/28/2024 [...] M.D. Signed By: 03/28/24334 DD/ 1 TD/TT: Metrologist:MILESadiologoumou, Radiologist, - 03/28/2024 [place] [address] Ultrasound Report Signed Patient: KASANDRA MACIAS MR#: [id number] : 1995 Acct:[id number] Age/Sex: 28 / F ADM Date: 03/27/24 Loc: US Attending Dr: Wisam Rodriguze D.O. Ordering Physician: Wisam Rodriguez D.O. Date of Service: 03/27/24 Procedure(s): US pelvis w/ transvaginal Accession Number(s): [id number] cc: Wisam Rodriguez D.O.; Iron Garcia M.D. The [place] [address] Patient Name: KASANDRA MACIAS MRN: [id number] date: 1995 Sex: F Assigned Patient Location: US Current Patient Location: Accession/Order Number: [id number] Exam Date: 03/27/2024 14:05 Report Date: 03/28/2024 [...] M.D. Signed By: 03/28/24334 DD/ 1 TD/TT: Metrologist: PAL HealthcareRadiology Study observation (narrative)NOMS HealthcareUS PELVIS W/ TRANSVAGINALOrdered By: Radiologist Radiology on 71-39-9925WXYC [facility] Work Phone: US OB BPP W NON-STRESSon [phone], [place] [address] Ultrasound Report Signed Patient: KASANDRA MACIAS MR#: [id number] : 1995 Acct:[id number] Age/Sex: 27 / F ADM Date: 08/08/23 Loc: US Attending Dr: Wisam Rodriguez D.O. Ordering Physician: Wisam Rodriguez D.O. Date of Service: 08/08/23 Procedure(s): US OB BPP w non-stress Accession Number(s): [id number] cc: Wisam Rodriguez D.O.; Iron Garcia M.D. [facility] [place] [address] Patient Name: KASANDRA MACIAS MRN: [facility]:[id number] date: 1995 Sex: F Assigned Patient Location: US Current Patient Location: Accession/Order Number: [id number] Exam Date: 08/08/2023 18:00 Report Date: 08/09/2023 [...] M.D. Signed By: 08/09/23729 DD/ 7 TD/TT: Metrologist:TBHRadiology, Radiologist, - 08/09/2023 [place] [address] Ultrasound Report Signed Patient: KASANDRA MACIAS MR#: [id number] : 1995 Acct:[id number] Age/Sex: 27 / F ADM Date: 08/08/23 Loc: US Attending Dr: Wisam Rodriguez D.O. Ordering Physician: Wisam Rodriguez D.O. Date of Service: 08/08/23 Procedure(s): US OB BPP w non-stress Accession Number(s): [id number] cc: Wisam Rodriguez D.O.; Iron Garcia M.D. [facility] [place] [address] Patient Name: KASANDRA MACIAS MRN: [facility]:[id number] date: 1995 Sex: F Assigned Patient Location: US Current Patient Location: Accession/Order Number: [id number] Exam Date: 08/08/2023 18:00 Report Date: 08/09/2023 [...] M.D. Signed By: 08/09/23729 DD/ 7 TD/TT: Metrologist: PAL HealthcareRadiology Study observation (narrative)NOMS HealthcareUS OB BPP W NON-STRESSOrdered By: Radiologist Radiology on 52-00-9900ETVO [facility] Work Phone: US OB BPP W NON-STRESSon [phone], [place] [address] Ultrasound Report Signed Patient: KASANDRA MACIAS MR#: [id number] : 1995 Acct:[id number] Age/Sex: 27 / F ADM Date: 08/01/23 Loc: US Attending Dr: Wisam Rodriguez D.O. Ordering Physician: Wisam Rodriguez D.O. Date of Service: 08/01/23 Procedure(s): US OB BPP w non-stress Accession Number(s): [id number] cc: Wisam Rodriguez D.O.; Iron Garcia M.D. [facility] [place] [address] Patient Name: KASANDRA MACIAS MRN: [facility]:[id number] date: 1995 Sex: F Assigned Patient Location: US Current Patient Location: US Accession/Order Number: [id number] Exam Date: 08/01/2023 21:30 Report Date: 08/02/2023 [...] M.D. Signed By: 08/02/23823 DD/ 1 TD/TT: Metrologist:TBHRadiology, Radiologist, MD - 08/02/2023 [place] [address] Ultrasound Report Signed Patient: KASANDRA MACIAS MR#: [id number] : 1995 Acct:[id number] Age/Sex: 27 / F ADM Date: 08/01/23 Loc: US Attending Dr: Wisam Rodriguez D.O. Ordering Physician: Wisam Rodriguez D.O. Date of Service: 08/01/23 Procedure(s): US OB BPP w non-stress Accession Number(s): [id number] cc: Wisam Rodriguez D.O.; Iron Garcia M.D. The [place] [phone] Patient Name: KASANDRA MACIAS MRN: TBH:[id number] date: 1995 Sex: F Assigned Patient Location: US Current Patient Location: US Accession/Order Number: [id number] Exam Date: 08/01/2023 21:30 Report Date: 08/02/2023 [...] M.D. Signed By: 08/02/23823 DD/ 1 TD/TT: Metrologist: PAL HealthcareRadiology Study observation (narrative)NOMS HealthcareUS OB BPP W NON-STRESSOrdered By: Radiologist Radiology on 41-70-9590GZTJ Healthcare Work Phone: US OB BPP W NON-STRESSon [phone], [place] [address] Ultrasound Report Signed Patient: KASANDRA MACIAS MR#: [id number] : 1995 Acct:[id number] Age/Sex: 27 / F ADM Date: 07/25/23 Loc: US Attending Dr: Wisam Rodriguez D.O. Ordering Physician: Wisam Rodriguez D.O. Date of Service: 07/25/23 Procedure(s): US OB BPP w non-stress Accession Number(s): [id number] cc: Wisam Rodriguez D.O.; Iron Garcia M.D. [place] [address] Patient Name: KASANDRA MACIAS MRN: [facility]:[id number] date: 1995 Sex: F Assigned Patient Location: [facility] Current Patient Location: Accession/Order Number: [id number] Exam Date: 07/25/2023 16:04 Report Date: 07/26/2023 [...] M.D. Signed By: 07/26/2342 DD/ 9 TD/TT: Metrologist:CARYHRadiologoumou, Radiologist, - 07/26/2023 [place] [address] Ultrasound Report Signed Patient: KASANDRA MACIAS MR#: [id number] : 1995 Acct:[id number] Age/Sex: 27 / F ADM Date: 07/25/23 Loc: US Attending Dr: Wisam Rodriguez D.O. Ordering Physician: Wisam Rodriguez D.O. Date of Service: 07/25/23 Procedure(s): US OB BPP w non-stress Accession Number(s): [id number] cc: Wisam Rodriguez D.O.; Iron Garcia M.D. The [place] [phone] Patient Name: KASANDRA MACIAS MRN: [facility]:[id number] date: 1995 Sex: F Assigned Patient Location: [facility] Current Patient Location: Accession/Order Number: [id number] Exam Date: 07/25/2023 16:04 Report Date: 07/26/2023 [...] JUDITH MACHUCA Date: 07/26/2023 05:40 Dictated By: Judtih Machuca M.D. Signed By: 07/26/23541 DD/ 9 TD/TT: Metrologist: PAL HealthcareRadiology Study observation (narrative)NOMS HealthcareUS OB BPP W NON-STRESSOrdered By: Radiologist Radiology on 96-07-9301PH[facility] Work Phone: US OB BPP W NON-STRESSon [phone], [place] [address] Ultrasound Report Signed Patient: KASANDRA MACIAS MR#: [id number] : 1995 Acct:[id number] Age/Sex: 27 / F ADM Date: 07/21/23 Loc: [facility]O Attending Dr: Wisam Rodriguez D.O. Ordering Physician: Wisam Rodriguez D.O. Date of Service: 07/21/23 Procedure(s): US OB BPP w non-stress Accession Number(s): [id number] cc: Wisam Rodriguez D.O.; Iron Garcia M.D. [place] [id number] Patient Name: KASANDRA MACIAS MRN: [facility]H:[id number] date: 1995 Sex: F Assigned Patient Location: [facility] Current Patient Location: Accession/Order Number: [id number] Exam Date: 07/21/2023 17:36 Report Date: 07/22/2023 [...] By: Dudley Davis M.D. Signed By: 07/22/23 075 DD/ 0749 TD/TT: Metrologist:MILESadiologIndira coello MD - 07/22/2023 [place] [address] Ultrasound Report Signed Patient: KASANDRA MACIAS MR#: [id number] : 1995 Acct:[id number] Age/Sex: 27 / F ADM Date: 07/21/23 Loc: [facility] Attending Dr: Wisam Rodriguez D.O. Ordering Physician: Wisam Rodriguez D.O. Date of Service: 07/21/23 Procedure(s): US OB BPP w non-stress Accession Number(s): [id number] cc: Wisam Rodriguez D.O.; Iron Garcia M.D. The [place] [address] Patient Name: KASANDRA MACIAS MRN: [facility]:[id number] date: 1995 Sex: F Assigned Patient Location: [facility] Current Patient Location: Accession/Order Number: [id number] Exam Date: 07/21/2023 17:36 Report Date: 07/22/2023 [...] By: Dudley Davis M.D. Signed By: 07/22/23 075 DD/ 0749 TD/TT: Metrologist: PAL HealthcareRadiology Study observation (narrative)NOMS HealthcareUS OB BPP W NON-STRESSOrdered By: Radiologist Radiology on 87-13-8485[facility] Work Phone: US OB BPP W NON-STRESSon [phone], [place] [address] Ultrasound Report Signed Patient: KASANDRA MACIAS MR#: [id number] : 1995 Acct:[id number] Age/Sex: 27 / F ADM Date: 07/18/23 Loc: US Attending Dr: Wisam Rodriguez D.O. Ordering Physician: Wisam Rodriguez D.O. Date of Service: 07/18/23 Procedure(s): US OB BPP w non-stress Accession Number(s): [id number] cc: Wisam Rodriguez D.O.; Iron Garcia M.D. [place] [address] Patient Name: KASANDRA MACIAS MRN: [facility]:[id number] date: 1995 Sex: F Assigned Patient Location: [facility] Current Patient Location: Accession/Order Number: [id number] Exam Date: 07/18/2023 17:12 Report Date: 07/19/2023 [...] M.D. Signed By: 07/19/23716 DD/ 4 TD/TT: Metrologist:MILESadiologIndira coello MD - 07/19/2023 [place] [address] Ultrasound Report Signed Patient: KASANDRA MACIAS MR#: [id number] : 1995 Acct:[id number] Age/Sex: 27 / F ADM Date: 07/18/23 Loc: US Attending Dr: Wisam Rodriguez D.O. Ordering Physician: Wisam Rodriguez D.O. Date of Service: 07/18/23 Procedure(s): US OB BPP w non-stress Accession Number(s): [id number] cc: Wisam Rodriguez D.O.; Iron Garcia M.D. The [place] [phone] Patient Name: KASANDRA MACIAS MRN: [facility]:[id number] date: 1995 Sex: F Assigned Patient Location: [facility] Current Patient Location: Accession/Order Number: [id number] Exam Date: 07/18/2023 17:12 Report Date: 07/19/2023 [...] Dudley Davis M.D. Signed By: 07/19/23716 DD/ 0715 TD/TT: Metrologist: PAL HealthcareRadiology Study observation (narrative)NOMS HealthcareUS OB BPP W NON-STRESSOrdered By: Radiologist Radiology on 17-77-0189[facility] Work Phone: US OB BPP W NON-STRESSon [phone], [place] [address] Ultrasound Report Signed Patient: KASANDRA MACIAS MR#: [id number] : 1995 Acct:[id number] Age/Sex: 27 / F ADM Date: 07/11/23 Loc: US Attending Dr: Wisam Rodriguez D.O. Ordering Physician: Wisam Rodriguez D.O. Date of Service: 07/11/23 Procedure(s): US OB BPP w non-stress Accession Number(s): [id number] cc: Wisam Rodriguez D.O.; Iron Garcia M.D. [place] [phone] Patient Name: KASANDRA MACIAS MRN: [facility]:[id number] date: 1995 Sex: F Assigned Patient Location: [facility] Current Patient Location: Accession/Order Number: [id number] Exam Date: 07/11/2023 17:05 Report Date: 07/12/2023 [...] Davis M.D. Signed By: 07/12/23 0747 DD/ 4 TD/TT: Metrologist:MILESadiologoumou, Radiologist, - 07/12/2023 The [place] [id number] Ultrasound Report Signed Patient: KASANDRA MACIAS MR#: [id number] : 1995 Acct:[id number] Age/Sex: 27 / F ADM Date: 07/11/23 Loc: US Attending Dr: Wisam Rodriguez D.O. Ordering Physician: Wisam Rodriguez D.O. Date of Service: 07/11/23 Procedure(s): US OB BPP w non-stress Accession Number(s): [id number] cc: Wisam Rodriguez D.O.; Iorn Garcia M.D. The [place] [phone] Patient Name: KASANDRA MACIAS MRN: [facility]:[id number] date: 1995 Sex: F Assigned Patient Location: [facility] Current Patient Location: Accession/Order Number: [id number] Exam Date: 07/11/2023 17:05 Report Date: 07/12/2023 [...] Davis M.D. Signed By: 07/12/23 0747 DD/ 4 TD/TT: Metrologist: PAL FlowersRadiology Study observation (narrative)NOMTimoteo HealthcareUS OB BPP W NON-STRESSOrdered By: Radiologist Radiology on 82-70-8951NQUH [facility] Work Phone: us OB BPP W NON-STRESSon [phone], [place] [address] Ultrasound Report Signed Patient: KASANDRA MACIAS MR#: [id number] : 1995 Acct:[id number] Age/Sex: 27 / F ADM Date: 07/06/23 Loc: US Attending Dr: Wisam Rodriguez D.O. Ordering Physician: Wisam Rodriguez D.O. Date of Service: 07/06/23 Procedure(s): US OB BPP w non-stress Accession Number(s): [id number] cc: Wisam Rodriguez D.O.; Iron Garica M.D. [place] [phone] Patient Name: KASANDRA MACIAS MRN: [facility]:[id number] date: 1995 Sex: F Assigned Patient Location: [facility] Current Patient Location: Accession/Order Number: [id number] Exam Date: 07/06/2023 19:06 Report Date: 07/07/2023 [...] M.D. Signed By: 07/07/23803 DD/ 1 TD/TT: Metrologist:MILESadiologIndira coello, - 07/07/2023 The [place] [id number] Ultrasound Report Signed Patient: KASANDRA MACIAS MR#: [id number] : 1995 Acct:[id number] Age/Sex: 27 / F ADM Date: 07/06/23 Loc: US Attending Dr: Wisam Rodriguez D.O. Ordering Physician: Wisam Rodriguez D.O. Date of Service: 07/06/23 Procedure(s): US OB BPP w non-stress Accession Number(s): [id number] cc: Wisam Rodriguez D.O.; Iron Garcia M.D. The [address] [address] Patient Name: KASANDRA MACIAS MRN: [id number] date: 1995 Sex: F Assigned Patient Location: [facility] Current Patient Location: Accession/Order Number: [id number] Exam Date: 07/06/2023 19:06 Report Date: 07/07/2023 [...] M.D. Signed By: 07/07/23803 DD/ 1 TD/TT: Metrologist: PAL HealthcareRadiology Study observation (narrative)NOMS HealthcareUS OB BPP W NON-STRESSOrdered By: Radiologist Radiology on 85-16-8921[facility] Work Phone: US OB BPP W NON-STRESSon [phone], [place] [address] Ultrasound Report Signed Patient: KASANDRA MACIAS MR#: [id number] : 1995 Acct:[id number] Age/Sex: 27 / F ADM Date: 06/27/23 Loc: US Attending Dr: Wisam Rodriguez D.O. Ordering Physician: Wisam Rodriguez D.O. Date of Service: 06/27/23 Procedure(s): US OB BPP w non-stress Accession Number(s): [id number] cc: Wisam Rodriguez D.O.; Iron Garcia M.D. [place] [phone] Patient Name: KASANDRA MACIAS MRN: [facility]:[id number] date: 1995 Sex: F Assigned Patient Location: US Current Patient Location: Accession/Order Number: [id number] Exam Date: 06/27/2023 17:04 Report Date: 06/28/2023 [...] M.D. Signed By: 06/28/23716 DD/ 4 TD/TT: Metrologist:CARYHRadiologoumou, Radiologist, - 06/30/2023 [place] [address] Ultrasound Report Signed Patient: KASANDRA MACIAS MR#: [id number] : 1995 Acct:[id number] Age/Sex: 27 / F ADM Date: 06/27/23 Loc: US Attending Dr: Wisam Rodriguez D.O. Ordering Physician: Wisam Rodriguez D.O. Date of Service: 06/27/23 Procedure(s): US OB BPP w non-stress Accession Number(s): [id number] cc: Wisam Rodriguez D.O.; Iron Garcia M.D. The [place] [phone] Patient Name: KASANDRA MACIAS MRN: [id number] date: 1995 Sex: F Assigned Patient Location: US Current Patient Location: Accession/Order Number: [id number] Exam Date: 06/27/2023 17:04 Report Date: 06/28/2023 [...] M.D. Signed By: 06/28/23716 DD/ 4 TD/TT: Metrologist: PAL HealthcareRadiology Study observation (narrative)NOMS HealthcareUS OB BPP W NON-STRESSOrdered By: Radiologist Radiology on 98-01-5545JZJC Healthcare Work Phone: US AMNIOTIC FLUID VOLUMEon 12-65-6960Xgx [place] [address] Ultrasound Report Signed Patient: KASANDRA MACIAS MR#: [id number] : 1995 Acct:[id number] Age/Sex: 27 / F ADM Date: 06/09/23 Loc: US Attending Dr: Wisam Rodriguez D.O. Ordering Physician: Wisam Rodriguez D.O. Date of Service: 06/09/23 Procedure(s): US OB amniotic fluid vol Accession Number(s): [id number] cc: Wisam Rodriguez D.O.; Iron Garcia M.D. The [address] [address] Patient Name: KASANDRA MACIAS MRN: [id number] date: 1995 Sex: F Assigned Patient Location: US Current Patient Location: LAB Accession/Order Number: [id number] Exam Date: 06/09/2023 15:05 Report Date: 06/09/2023 [...] Signed By: 06/09/23 1547 DD/ 1545 TD/TT: Metrologist:TBHRadiology, Radiologist, - 06/09/2023 [place] [address] Ultrasound Report Signed Patient: KASANDRA MACIAS MR#: [id number] : 1995 Acct:[id number] Age/Sex: 27 / F ADM Date: 06/09/23 Loc: US Attending Dr: Wisam Rodriguez D.O. Ordering Physician: Wisam Rodriguez D.O. Date of Service: 06/09/23 Procedure(s): US OB amniotic fluid vol Accession Number(s): [id number] cc: Wisam Rodriguez D.O.; Iron Garcia M.D. [place] [phone] Patient Name: KASANDRA MACIAS MRN: [id number] date: 1995 Sex: F Assigned Patient Location: US Current Patient Location: LAB Accession/Order Number: [id number] Exam Date: 06/09/2023 15:05 Report Date: 06/09/2023 [...] Signed By: 06/09/23 1547 DD/ 44 TD/TT: Metrologist: PAL HealthcareRadiology Study observation (narrative)PAL FlowersUS AMNIOTIC FLUID VOLUMEOrdered By: Radiologist Radiology on 96-34-6239HFQO Healthcare Work Phone: US OB GROWTHon [phone] [phone] Ultrasound Report Signed Patient: KASANDRA MACIAS MR#: [id number] : 1995 Acct:[id number] Age/Sex: 27 / F ADM Date: 05/26/23 Loc: NOMS Attending Dr: Wisam Rodriguez D.O. Ordering Physician: Wisam Rodriguez D.O. Date of Service: 05/26/23 Procedure(s): US OB growth Accession Number(s): [id number] cc: Wisam Rodriguez D.O.; Iron Garcia M.D. [place] [address] Patient Name: KASANDRA MACIAS MRN: [id number] date: 1995 Sex: F Assigned Patient Location: [facility]S Current Patient Location: [facility] Accession/Order Number: [id number] Exam Date: 05/26/2023 09:17 Report Date: 05/26/2023 [...] Davis M.D. Signed By: 05/26/2352 DD/ TD/TT: Metrologist:CARYHRadiology, Radiologist, - 05/26/2023 [place] [address] Ultrasound Report Signed Patient: KASANDRA MACIAS MR#: [id number] : 1995 Acct:[id number] Age/Sex: 27 / F ADM Date: 05/26/23 Loc: NOMS Attending Dr: Wisam Rodriguez D.O. Ordering Physician: Wisam Rodriguez D.O. Date of Service: 05/26/23 Procedure(s): US OB growth Accession Number(s): [id number] cc: Wisam Rodriguez D.O.; Iron Garcia M.D. The [place] [address] Patient Name: KASANDRA MACIAS MRN: [id number] date: 1995 Sex: F Assigned Patient Location: [facility] Current Patient Location: [facility] Accession/Order Number: [id number] Exam Date: 05/26/2023 09:17 Report Date: 05/26/2023 [...] Davis M.D. Signed By: 05/26/2352 DD/ TD/TT: Metrologist: [facility] HealthcareRadiology Study observation (narrative)NOMS HealthcareUS OB GROWTHOrdered By: Radiologist Radiology on 93-44-9539GR[facility] Work Phone: Laboratory - Microbiology and Antimicrobial susceptibilityOrdered By: Teresa Wilkins on 36-19-8571FUYK-CoV-2 (COVID-19) RNA SHIRIN+probe Ql (Unsp spec)[facility] CenterUrinalysis macro (dipstick) panel (U)on 61-95-8288Wqelmrpre, UANegativeNegative - 4(70) +++ mg/dL NOMS HealthcareBlood, [...] HealthcareNo Panel InformationOrdered By: Radiologist Radiology on 96-90-2184GFJP Healthcare Work Phone: No Panel Informationon 46-84-1415Tjhzsphsm Study observation (narrative)[facility]AL [facility] OB ANATOMYon 54-79-2618WxbFried[place], [place] [address] Ultrasound Report Signed Patient: KASANDRA MACIAS MR#: [id number] : 1995 Acct:[id number] Age/Sex: 27 / F ADM Date: 03/31/23 Loc: US Attending Dr: Wisam Rodriguez D.O. Ordering Physician: Wisam Rodriguez D.O. Date of Service: 03/31/23 Procedure(s): US OB anatomy Accession Number(s): [id number] cc: Wisam Rodriguez D.O.; Iron Garcia M.D. [place] [address] Patient Name: KASANDRA MACIAS MRN: [id number] date: 1995 Sex: F Assigned Patient Location: US Current Patient Location: Accession/Order Number: [id number] Exam Date: 03/31/2023 19:37 Report Date: 04/01/2023 [...] M.D. Signed By: 04/01/23718 DD/ 5 TD/TT: Metrologist:CARYHRadiology, Radiologist, - 04/01/2023 [place] [address] Ultrasound Report Signed Patient: KASANDRA MACIAS MR#: [id number] : 1995 Acct:[id number] Age/Sex: 27 / F ADM Date: 03/31/23 Loc: US Attending Dr: Wisam Rodriguez D.O. Ordering Physician: Wisam Rodriguez D.O. Date of Service: 03/31/23 Procedure(s): US OB anatomy Accession Number(s): [id number] cc: Wisam Rodriguez D.O.; Iron Garcia M.D. The [place] [address] Patient Name: KASANDRA MACIAS MRN: [id number] date: 1995 Sex: F Assigned Patient Location: US Current Patient Location: Accession/Order Number: [id number] Exam Date: 03/31/2023 19:37 Report Date: 04/01/2023 [...] Davis M.D. Signed By: 04/01/23 0719 DD/ 5 TD/TT: Metrologist: PAL [facility] OB TRANSVAGINALon 55-55-2234[place]kkFried[place], [place] [address] Ultrasound Report Signed Patient: KASANDRA MACIAS MR#: [id number] : 1995 Acct:[id number] Age/Sex: 27 / F ADM Date: 03/31/23 Loc: US Attending Dr: Wisam Rodriguez D.O. Ordering Physician: Wisam Rodriguez D.O. Date of Service: 03/31/23 Procedure(s): US OB transvaginal Accession Number(s): [id number] cc: Wisam Rodriguez D.O.; Iron Garcia M.D. [place] [address] Patient Name: KASANDRA MACIAS MRN: [id number] date: 1995 Sex: F Assigned Patient Location: US Current Patient Location: Accession/Order Number: [id number] Exam Date: 03/31/2023 19:37 Report Date: 04/01/2023 [...] M.D. Signed By: 04/01/23718 DD/ 5 TD/TT: Metrologist:CARYHRadiology, Radiologist, - 06/01/2023 [place] [address] Ultrasound Report Signed Patient: KASANDRA MACIAS MR#: [id number] : 1995 Acct:[id number] Age/Sex: 27 / F ADM Date: 03/31/23 Loc: US Attending Dr: Wisam Rodriguez D.O. Ordering Physician: Wisam Rodriguez D.O. Date of Service: 03/31/23 Procedure(s): US OB transvaginal Accession Number(s): [id number] cc: Wisam Rodriguez D.O.; Iron Garcia M.D. The [place] [phone] Patient Name: KASANDRA MACIAS MRN: [id number] date: 1995 Sex: F Assigned Patient Location: US Current Patient Location: Accession/Order Number: [id number] Exam Date: 03/31/2023 19:37 Report Date: 04/01/2023 [...] M.D. Signed By: 04/01/23718 DD/ 5 TD/TT: Metrologist: PAL [facility] AUTO DIFFon 43-81-4808ZBFC #0.0 103/ulNormal0.0-0.1Ad[facility] Medical CenterComment on above:Performed By: #### RF #### [facility] [address] [place] [address] Dr. Venkat SloanBasophils/100 WBC (Bld)0.5 %Normal0.2-2.0[facility] Comment on above:Performed By: #### RF #### [facility] [address] [place] [address] Dr. Venkat Willson #0.1 103/ulNormal0.0-0.7ThFayette County Memorial HospitalComment on above: Performed By: #### RF #### [facility] [address] [place] [address] Dr. Venkat Lewosinophils/100 WBC (Bld)1.7 %Normal0.9-7.0[facility] Comment on above:Performed By: #### RF #### [facility] [address] [place] [address] Dr. Venkat Lewrythrocyte distribution width (RBC) [Ratio]12.7 %Mmjbhz12.0-15.0 [facility] ClinicComment on above:Performed By: #### RF #### [facility] [address] [place] [address] Dr. Venkat SloanHematocrit (Bld) [Volume fraction]40.4 %Evujkp55.0-48.0The [facility] ClinicComment on above:Performed By: #### RF #### [facility] [address] [place] [address] Dr. Venkat SloanHemoglobin (Bld) [Mass/Vol]13.1 g/cNHaolvp97.0-16.0[facility] ClinicComment on above:Performed By: #### RF #### [facility] [address] [place] [address] Dr. Venkat Monson #0.02 10e3/ulNormal0.00-0.03The [facility] ClinicComment on above:Performed By: #### RF #### [facility] [address] [place] [address] Dr. Venkat Monson %0.3 %Normal0.0-0.5The [facility] ClinicComment on above: Performed By: #### RF #### [facility] [address] [place] [address] Dr. Venkat Urban #2.0 103/ulNormal1.2-3.8The [facility] ClinicComvibra [facility] [place] on above:Performed By: #### RF #### [facility] [address] [place] [address] Dr. Venkat Plazahocytes/100 WBC (Bld)26.2 %Ehfgpf23.5-60.0The [facility] ClinicComment on above:Performed By: #### RF #### [facility] [address] [place] [address] Dr. Venkat SantosUAL DIFF REQNONormalThe [facility] ClinicComment on above: Performed By: #### RF #### [facility] [address] [place] [address] Dr. Venkat KearnsBradly (RBC) [Entitic mass]28.4 beRxabef33.7-34.0The [facility] ClinicComment on above:Performed By: #### RF #### [facility] [address] [place] [address] Dr. Venkat Kearns (RBC) [Mass/Vol]32.4 g/cMUhyhac55.9-35.2The [facility] ClinicComment on above:Performed By: #### RF #### [facility] [address] [place] [address] Dr. Venkat Kearns (RBC) [Entitic vol]87.4 uAZmcpsb37.0-99.0The [facility] ClinicComment on above:Performed By: #### RF #### [facility] [address] [place] [address] Dr. Venkat Marte #0.7 103/ulNormal0.3-0.8The [facility] ClinicComment on above:Performed By: #### RF #### [facility] [address] [place] [address] Dr. Venkat Desaiocytes/100 WBC (Bld)8.8 %Normal1.7-12.0The [facility] Comment on above:Performed By: #### RF #### [facility] [address] [place] [address] Dr. Venkat ZhengUT #4.8 103/ulNormal1.4-6.5The [facility] ClinicComment on above:Performed By: #### RF #### [facility] [address] [place] [address] Dr. Venkat Zhengutrophils/100 WBC (Bld)62.5 %Dbztni59.0-75.0The [facility] ClinicComment on above:Performed By: #### RF #### [facility] [address] [place] [address] Dr. Venkat Kellylet mean volume (Bld) [Entitic vol]8.5 fLCritically low 9.5-13.5The [facility] ClinicComment on above:Performed By: #### RF #### [facility] [address] [place] [address] Dr. Venkat SloanPLT331 103/iaHuhoos105-007JdzAdams County Regional Medical CenterComment on above: Performed By: #### RF #### [facility] [address] [place] [address] Dr. Venkat SloanRBC4.62 106/ulNormal4.20-5.40Ad[facility] Medical CenterComment on above:Performed By: #### RF #### [facility] [address] [place] [address] Dr. Venkat SloanWBC7.7 103/ulNormal4.0-11.0The [facility] ClinicComment on above: Performed By: #### RF #### [facility] [address] [place] [address] Dr. Venkat SloanPRERj QUANT HCGon 03-02-1272TPZ QUANT<1NormalAdams County Regional Medical Center Comment on above:Performed By: #### PREGQNT #### [facility] [address] [place] [address] Dr. Venkat SloanHCG [facility]lower HospitalComment on above: Result Comment: 5-50 0.2-1 WEEK 50-500 1-2 WEEKS 100-5,000 2-3 WEEKS 500-10,000 3-4 WEEKS 1,000-50,000 4-5 WEEKS 10,000-100,000 5-6 WEEKS 15,000-200,000 6-8 WEEKS 10,000-100,000 2-3 MONTHSPerformed By: #### PREGQNT #### [facility] [address] [place] [address] Dr. Venkat SloanPROGESTERONEon 85-92-5668Ojiuncytwcvh9.7 ng/mLNormalAdams County Regional Medical CenterComvibra hospital of [facility] [place] on above:Result Comment: Follicular phase 0.1 - 0.9 Luteal phase 1.8 - 23.9 Ovulation phase 0.1 - 12.0 First trimester 11.0 - 44.3 Second trimester 25.4 - 83.3 Third trimester 58.7 - 214.0 Postmenopausal 0.0 - 0.1Performed By: #### TSH #### [facility] [address] [place] [address] Dr. Venkat SloanPRERj QUANT HCGon 55-99-7723FDG QUANT1 mIU/mLNOhioHealth Mansfield HospitalComment on above:Performed By: #### PREGQNT #### [facility] [address] [place] [address] Dr. Venkat SloanHCRj [facility]lower HospitalComment on above: Result Comment: 5-50 0.2-1 WEEK 50-500 1-2 WEEKS 100-5,000 2-3 WEEKS 500-10,000 3-4 WEEKS 1,000-50,000 4-5 WEEKS 10,000-100,000 5-6 WEEKS 15,000-200,000 6-8 WEEKS 10,000-100,000 2-3 MONTHSPerformed By: #### PREGQNT #### [facility] [address] [place] [address] Dr. Venkat SloanPROGESTERONEon 06-65-4246Qohljmqmcwgs78.4 ng/mLNOhioHealth Mansfield HospitalComment on above:Result Comment: Follicular phase 0.1 - 0.9 Luteal phase 1.8 - 23.9 Ovulation phase 0.1 - 12.0 First trimester 11.0 - 44.3 Second trimester 25.4 - 83.3 Third trimester 58.7 - 214.0 Postmenopausal 0.0 - 0.1Performed By: #### INFLUAB #### [facility] [address] [place] [address] Dr. Venkat SloanRoxana BRAIN WO W CONon 41-86-1729XHI BRAIN WO W CONEXAMINATION: MRI BRAIN WO [...] Electronically authenticated by: JUDITH MACHUCA Date: 2022-05-04 08:42[facility] SystemPREG QUANT HCGon 65-37-9827HQI QUANT<1NormalAdams County Regional Medical CenterComment on above:Performed By: #### RF #### [facility] [address] [place] [address] Dr. Venkat SloanG RANGESEE BELOWMemorial Health SystemComment on above: Result Comment: 5-50 0.2-1 WEEK 50-500 1-2 WEEKS 100-5,000 2-3 WEEKS 500-10,000 3-4 WEEKS 1,000-50,000 4-5 WEEKS 10,000-100,000 5-6 WEEKS 15,000-200,000 6-8 WEEKS 10,000-100,000 2-3 MONTHSPerformed By: #### RF #### [facility] [address] [place] [address] Dr. Venkat SloanXR HYSTEROSALPINGOGRAMon 62-89-2349XX HYSTEROSALPINGOGRAM EXAMINATION: XR HYSTEROSALPINGOGRAM HISTORY: Noninflammatory disorder [...] Electronically authenticated by: JUDITH MACHUCA Date: 2022-05-04 16:09NoCleveland Clinic Euclid HospitalPROGESTERONEon 98-77-0363Ksqnceztowha5.4 ng/mLNOhioHealth Mansfield HospitalComment on above:Result Comment: Follicular phase 0.1 - 0.9 Luteal phase 1.8 - 23.9 Ovulation phase 0.1 - 12.0 First trimester 11.0 - 44.3 Second trimester 25.4 - 83.3 Third trimester 58.7 - 214.0 Postmenopausal 0.0 - 0.1Performed By: #### INFLUAB #### [facility] [address] [place] [address] Dr. Venkat Chiu SPUTUMon 24-82-6802LNZAHCF SPUTUMCulture Observations: NORMAL RESPIRATORY NATALEE.NormalAdams County Regional Medical CenterComment on above:Performed By: #### RF #### [facility] [address] [place] [address] Dr. Venkat Maza GRAM STAINon 80-85-1706LONGJZRTSsrineZefDunlap Memorial Hospital Comment on above:Performed By: #### RF #### [facility] [address] [place] [address] Dr. Venkat SegundoTHEROIDSMemorial Health SystemComment on above:Performed By: #### RF #### [facility] [address] [place] [address] Dr. Venkat AdairALS<[address] [place], [place] [address]Comvibra hospital [facility] [place] on above: Performed By: #### RF #### [facility] [address] [place] [address] Dr. Venkat HuiAL ELEMENTSMemorial Health SystemComment on above: Performed By: #### RF #### [facility] [address] [place] [address] Dr. Venkat Sena NEG BACILLIRARENOhioHealth Mansfield HospitalComvibra hospital of [facility] [place] on above: Performed By: #### RF #### [facility] [address] [place] [address] Dr. Venkat Sena NEG DIPPLOCOCCIMemorial Health SystemComvibra hospital of [place] on above: Performed By: #### RF #### [facility] [address] [place] [address] Dr. Venkat Sena POS BACILLIMemorial Health SystemComment on above: Performed By: #### RF #### [facility] [address] [place] [address] Dr. Venkat SloanGRAM POSITIVE COCCIRARENormalAdams County Regional Medical CenterComment on above:Performed By: #### RF #### [facility] [address] [place] [address] Dr. Venkat SloanWBC (Bld) [#/Vol]10*3/[facility] TownshipComvibra hospital [facility] [place] on above:Performed By: #### RF #### [facility] [address] [place] [address] Dr. Venkat SloanCovid-19 PCR (CVDTBH)on 66-11-5728CTYA-CoV-2 (COVID-19) RNA SHIRIN+probe Ql (Unsp spec)Not detectedNormalNOT DETECTEDAdams County Regional Medical Center Comment on above:Result Comment: This test is not yet approved or cleared by the [place] FDA. When there are no FDA-approved or cleared tests available, and other criteria are met, FDA can make tests available under an emergency access mechanism called an Emergency Use Authorization (EUA). The EUA for this test is supported by the [place] of Health and Human Service's (HHS's) declaration [...] consistent with SARS-CoV-2.Performed By: #### PREGQNT #### [facility] [address] [place] [address] Dr. Venkat SloanINFLUENZA A AND B AGon [id number] [facility] HospitalComv[facility] on above:Result Comment: Negative for Flu A protein angiten. Infection due to Flu A cannot be ruled out. FluA angiten in the sample may be below the detection limit of the test.Performed By: #### INFLUAB #### [facility] [address] [place] [address] Dr. Venkat PhillipEE BELOWMemorial Health SystemComment on above: Result Comment: Negative for Flu B protein antigen. Infection due to Flu B cannot be ruled out. FluB antigen in the sample may be below the detection limit of the test.Performed By: #### INFLUAB #### [facility] [address] [address] [address] Venkat Mixon AGNegativeNormalNEGATIVE SEE COMMENTThe [facility] ClinicComment on above:Performed By: #### INFLUAB #### [facility] [address] [place] [address] Dr. Venkat Burton AGNegativeNormalNEGATIVE SEE COMMENTThe [facility] ClinicComment on above:Performed By: #### INFLUAB #### [facility] [address] [place] [address] Dr. Venkat SloanXR CHEST 2 Von [id number] CHEST 2 VEXAM: XR CHEST 2 V HISTORY: . Acute bronchitis . COMPARISON: 03/10/2021 TECHNIQUE: Frontal and lateral chest FINDINGS: Heart and vascularity are unremarkable. Lungs are expanded and free of focal infiltrates. No acute bony abnormality is appreciated. IMPRESSION: No acute heart or lung disease identified. Electronically authenticated by: [address]LEY [address] Date: 2022-03-24 12:33[facility] SystemCovid-19 PCR (CVDTBH)on [id number]-CoV-2 (COVID-19) RNA SHIRIN+probe Ql (Unsp spec)Not detectedNormalNOT DETECTEDAd[facility] Comment on above:Result Comment: When [...] for this test is supported by the [place] of Health and Human Service's declaration that [...] longer be used).Performed By: #### RF #### [facility] [address] [place] [address] Dr. Venkat Mixon AND B [facility] [id number] Health [facility] on above:Result Comment: Negative for Flu A protein angiten. Infection due to Flu A cannot be ruled out. FluA angiten in the sample may be below the detection limit of the test.Performed By: #### INFLUAB #### [facility] [address] [place] [address] Dr. Venkat QuachUBNEGMANISH [facility] on above: Result Comment: Negative for Flu B protein antigen. Infection due to Flu B cannot be ruled out. FluB antigen in the sample may be below the detection limit of the test.Performed By: #### INFLUAB #### [facility] [address] [place] [address] Dr. Venkat Mixon AGNegativeNormalNEGATIVE SEE COMMENTThe [facility] on above:Performed By: #### INFLUAB #### [facility] [address] [place] [address] Dr. Venkat Burton AGNegativeNormalNEGATIVE SEE COMMENTThe [facility] on above:Performed By: #### INFLUAB #### [facility] [address] [place] [address] Dr. Venkat SloanINTERNAL CONTROLSWithin Normal LimitsNormalWithin Normal Limits The [facility] on above:Performed By: #### INFLUAB #### [facility] [address] [place] [address] Dr. Venkat SloanCovid-19 PCR ([facility]VDCUTLER [facility])on [id number]-CoV-2 (COVID-19) RNA SHIRIN+probe Ql (Unsp spec)Not detectedNormalNOT DETECTEDThe [facility] Comment on above:Result Comment: When diagnostic testing [...] for this test is supported by the Physical Therapy Aid of Health and Human Service's declaration that [...] longer be used).Performed By: #### INFLUAB #### [facility] [address] [place] [address] Dr. Venkat Mixon AND B AGon [id number] Hospitalment on above:Result Comment: Negative for Flu A protein angiten. Infection due to Flu A cannot be ruled out. FluA angiten in the sample may be below the detection limit of the test.Performed By: #### INFLUAB #### [facility] [address] [place] [address] Dr. Venkat SloanINFLUBNEGHSMANISH [facility] on above: Result Comment: Negative for Flu B protein antigen. Infection due to Flu B cannot be ruled out. FluB antigen in the sample may be below the detection limit of the test.Performed By: #### INFLUAB #### [facility] [address] [place] [address] Dr. Venkat Mixon AGNegativeNormalNEGATIVE SEE COMMENTThe [facility] HospitalComment on above:Performed By: #### INFLUAB #### [facility] [address] [place] [address] Dr. Venkat Burton AGNegativeNormalNEGATIVE SEE COMMENTThe [facility] ClinicComment on above:Performed By: #### INFLUAB #### [facility] [address] [place] [address] Dr. Venkat SloanINTERNAL CONTROLSWithin Normal LimitsNormalWithin Normal Limits The [facility] ClinicComment on above:Performed By: #### INFLUAB #### [facility] [address] [place] [address] Dr. Venkat SloanPROGESTERONEon 67-68-4860Iajviqihcbto3.3 ng/mLNormalThe [facility] ClinicComment on above:Result Comment: Follicular phase 0.1 - 0.9 Luteal phase 1.8 - 23.9 Ovulation phase 0.1 - 12.0 First trimester 11.0 - 44.3 Second trimester 25.4 - 83.3 Third trimester 58.7 - 214.0 Postmenopausal 0.0 - 0.1Performed By: #### RF #### [facility] [address] [place] [address] Dr. Venkat SloanACTH STIMULATIONon 37-14-0260Aklvvs Skaqvuyg14 ng/mCVkmzrt72-089 The [facility] ClinicComment on above:Performed By: #### RF #### [facility] [address] [place] [address] Dr. Venkat Basilio Zyhuxelhwz39 ng/dLNormalNot Estab.The [facility] Comment on above:Performed By: #### RF #### [facility] [address] [place] [address] Dr. Venkat SloanCovid-19 PCR (CVDTB)on [id number]-CoV-2 (COVID-19) RNA SHIRIN+probe Ql (Unsp spec)Not detectedNormalNOT DETECTEDThe [facility] Comment on above:Result Comment: This test is not yet approved or cleared by the [place] FDA. When there are no FDA-approved or cleared tests available, and other criteria are met, FDA can make tests available under an emergency access mechanism called an Emergency Use Authorization (EUA). The EUA for this test is supported by the Physical [employer] of Health and Human Service's (HHS's) declaration [...] consistent with SARS-CoV-2.Performed By: #### INFLUAB #### [place] [address] Dr[address] Venkat Mixon AND B [facility] 50-12-1007LSRODWGWIQBNOMercy Health [facility]ard Hospital on above:Result Comment: Negative for Flu A protein angiten. Infection due to Flu A cannot be ruled out. FluA angiten in the sample may be below the detection limit of the test.Performed By: #### PREGQNT #### [facility] [address] [place] [address] Dr. Venkat QuachUBNEGMANISH [facility] on above: Result Comment: Negative for Flu B protein antigen. Infection due to Flu B cannot be ruled out. FluB antigen in the sample may be below the detection limit of the test.Performed By: #### PREGQNT #### [facility] [address] [place] [address] Dr. Venkat Mixon AGNegativeNormalNEGATIVE SEE COMMENTThe [facility] on above:Performed By: #### PREGQNT #### [facility] [address] [place] [address] Dr. Venkat Burton AGNegativeNormalNEGATIVE SEE COMMENTThe [facility] on above:Performed By: #### PREGQNT #### [facility] [address] [place] [address] Dr. Venkat SloanINTERNAL CONTROLSWithin Normal LimitsNormalWithin Normal Limits The [facility] ClinicComment on above:Performed By: #### PREGQNT #### [facility] [address] [place] [address] Dr. Venkat Diehl SERUMon 26-35-1911Bhjvxjcmbhcayjvqefxvle (DHEA)82 ng/dL Ujvmqx75-130Umg [facility] ClinicComment on above:Result Comment: Age 1 - 5 years 0 - 67 6 - 7 years 0 - 110 8 - 10 years 0 - 185 11 - 12 years 0 - 201 13 - 14 years 0 - 318 15 - 16 years 39 - 481 17 - 19 years 40 - 491 >19 years 31 - 701Performed By: #### TSH #### [facility] [address] [place] [address] Dr. Venkat Diehl-SULFATEon 18-75-5990ZABM-Sxioamx45.0 ug/dLCritically low 84.8-378.0The [facility] ClinicComment on above:Performed By: #### RF #### [facility] [address] [place] [address] Dr. Venkat SloanFS 60-99-9017RWM2.2 mIU/mLNormalAdams County Regional Medical CenterComvibra hospital [facility] [place] on above:Result Comment: Adult Female: Follicular phase 3.5 - 12.5 Ovulation phase 4.7 - 21.5 Luteal phase 1.7 - 7.7 Postmenopausal 25.8 - 134.8Performed By: #### LBCFSH #### [facility] [address] [place] [address] Dr. Venkat SloanLUTEINIZING HORMONE (LH)on 77-48-9472GT1.1 mIU/mLNormalThe [facility] ClinicComvib[facility] [place] on above:Result Comment: Adult Female: Follicular phase 2.4 - 12.6 Ovulation phase 14.0 - 95.6 Luteal phase 1.0 - 11.4 Postmenopausal 7.7 - 58.5Performed By: #### INFLUAB #### [facility] [address] [place] [address] Dr. Venkat SloanPROLACTINon 18-75-6813Xxnozonsf3.0 ng/mLNormal4.8-23.3The [facility] ClinicComment on above:Performed By: #### PROLAC #### [facility] [address] [address] [address] Venkat SloanCBC AUTO DIFFon 31-89-1001FUEK #0.0 103/ulNormal0.0-0.1The [facility] ClinicComment on above:Performed By: #### TSH #### [facility] [address] [place] [address] Dr. Venkat SloanBasophils/100 WBC (Bld)0.4 %Normal0.2-2.0The [facility] Comment on above:Performed By: #### TSH #### [facility] [address] [place] [address] Dr. Venkat LewO #0.1 103/ulNormal0.0-0.7The [facility] ClinicComment on above: Performed By: #### TSH #### [facility] [address] [address] [address] Venkat Lewosinophils/100 WBC (Bld)1.2 %Normal0.9-7.0The [facility] Comment on above:Performed By: #### TSH #### [facility] [address] [place] [address] Dr. Venkat Lewrythrocyte distribution width (RBC) [Ratio]12.7 %Ewtmxw62.0-15.0 The [facility] ClinicComment on above:Performed By: #### TSH #### [facility] [address] [place] [address] Dr. Venkat SloanHematocrit (Bld) [Volume fraction]41.1 %Vcfwsa68.0-48.0The [facility] ClinicComment on above:Performed By: #### TSH #### [facility] [address] [place] [address] Dr. Venkat SloanHemoglobin (Bld) [Mass/Vol]13.1 g/fRPxslar91.0-16.0The [facility] ClinicComment on above:Performed By: #### TSH #### [facility] [address] [address] [address] Venkat Monson #0.03 10e3/ulNormal0.00-0.03The [facility] ClinicComment on above:Performed By: #### TSH #### [facility] [address] [place] [address] Dr. Venkat Monson %0.3 %Normal0.0-0.5The [facility] ClinicComvibra [facility] [place] on above: Performed By: #### TSH #### [facility] [address] [place] [address] Dr. Venkat Urban #1.6 103/ulNormal1.2-3.8The [facility] ClinicComvibra [facility] [place] on above:Performed By: #### TSH #### [facility] [address] [place] [address] Dr. Venkat Plazahocytes/100 WBC (Bld)15.0 %Critically low20.5-60.0The [facility] on above:Performed By: #### TSH #### [facility] [address] [place] [address] Dr. Venkat SantosUAL DIFF REQNONormalThe [facility] on above: Performed By: #### TSH #### [facility] [address] [place] [address] Dr. Venkat Kearns (RBC) [Entitic mass]28.5 rdKmvysg48.7-34.0The [facility] Northment on above:Performed By: #### TSH #### [facility] [address] [place] [address] Dr. Venkat Kearns (RBC) [Mass/Vol]31.9 g/vGPrxpkr94.9-35.2The [facility] on above:Performed By: #### TSH #### [facility] [address] [place] [address] Dr. Venkat Kearns (RBC) [Entitic vol]89.3 xWJplzqz68.0-99.0The [facility] ClinicComment on above:Performed By: #### TSH #### [facility] [address] [address] [address] Venkat Marte #0.9 103/ulCritically high0.3-0.8The [facility] Comment on above:Performed By: #### TSH #### [facility] [address] [address] [address] Venkat Desaiocytes/100 WBC (Bld)8.8 %Normal1.7-12.0[facility] Comment on above:Performed By: #### TSH #### [facility] [address] [address] [address] Venkat Lopez #7.9 103/ulCritically high1.4-6.5ThFayette County Memorial Hospital Comment on above:Performed By: #### TSH #### [facility] [address] [place] [address] Dr. Venkat Zhengutrophils/100 WBC (Bld)74.3 %Cxtdcr11.0-75.0The [facility] ClinicComment on above:Performed By: #### TSH #### [facility] [address] [address] [address] Venkat Robles mean volume (Bld) [Entitic vol]9.2 fLCritically low 9.5-13.5ThFayette County Memorial HospitalComment on above:Performed By: #### TSH #### [facility] [address] [place] [address] Dr. Venkat SloanPLT300 103/leJejfuu632-064Hfc [facility] ClinicComment on above: Performed By: #### TSH #### [facility] [address] [place] [address] Dr. Venkat SloanRBC4.60 106/ulNormal4.20-5.40The [facility] ClinicComment on above:Performed By: #### TSH #### [facility] [address] [place] [address] Dr. Venkat SloanWBC10.7 103/ulNormal4.0-11.0The [facility] ClinicComment on above:Performed By: #### TSH #### [facility] [address] [address] [address] Venkat SloanGLYCOHEMOGLOBIN A1Con 73-35-6074YMH RECOMMENDATIONSEE BELOWNormal The [facility] ClinicComment on above:Result Comment: ADA RECOMMENDED LIMIT 4.0 - 6.0 ADA THERAPEUTIC TARGET < 7.0 ACTION SUGGESTED > 7.0Performed By: #### PREGQNT #### [facility] [address] [address] [address] Venkat SloanGlucose [Mass/Vol]100 mg/dLNormalThe [facility] ClinicComment on above:Performed By: #### PREGQNT #### [facility] [address] [place] [address] Dr. Venkat SloanHbA1c (Bld) [Mass fraction]5.1 %Normal4.5-6.2The [facility] ClinicComment on above:Performed By: #### PREGQNT #### [facility] [address] [place] [address] Dr. Venkat ValdiviaHojanelle 78-28-4343YJM4.098 uIU/mLNormal0.358-3.740The [facility] ClinicComment on above:Performed By: #### TSH #### [facility] [address] [place] [address] Dr. Venkat SloanCovid-19 PCR (CVDCUTLER [facility])on 42-08-1060KGEM-CoV-2 (COVID-19) RNA SHIRIN+probe Ql (Unsp spec)Not detectedNormalNOT DETECTEDThe [facility] Comment on above:Result Comment: This test is not yet approved or cleared by the [place] FDA. When there are no FDA-approved or cleared tests available, and other criteria are met, FDA can make tests available under an emergency access mechanism called an Emergency Use Authorization (EUA). The EUA for this test is supported by the Physical Therapy Aid of Health and Human Service's (HHS's) declaration [...] consistent with SARS-CoV-2.Performed By: #### INFLUAB #### [facility] [address] [place] [address] Dr. Venkat SloanPRERj QUANT HCGon 30-02-3893BUY QUANT<1NormalAdams [facility] Center Comment on above:Performed By: #### PREGQNT #### [facility] [address] [place] [address] Dr. Venkat [place] Flower HospitalComment on above: Result Comment: 5-50 0.2-1 WEEK 50-500 1-2 WEEKS 100-5,000 2-3 WEEKS 500-10,000 3-4 WEEKS 1,000-50,000 4-5 WEEKS 10,000-100,000 5-6 WEEKS 15,000-200,000 6-8 WEEKS 10,000-100,000 2-3 MONTHSPerformed By: #### PREGQNT #### [facility] [address] [place] [address] Dr. Venkat [place]-BETA SUBUNIT QUANTon 08-62-0744pID,Beta Subunit,Qnt,Serum<1 NormalAdams County Regional Medical CenterComment on above:Result Comment: Female (Non- ) 0 - 5 (Postmenopausal) 0 - 8 . Female () Weeks of Gestation 3 6 - 71 4 10 - 750 5 217 - 7138 6 158 - 85539 7 3092 -106353 8 11795 -357957 9 17032 -135297 10 34979 -139337 12 37261 -195024 14 57969 - 78841 15 11885 - 17322 16 2532 - 32592 17 4166 - 78131 18 7835 - 75090 Aj ECLIA methodologyPerformed By: #### TSH #### [facility] [address] [place] [address] Dr. Venkat Marina by IFAon 49-34-4547Rochnpttrac Antibodies, IFANegativeNormal The [facility] ClinicComment on above:Result Comment: Negative <1:80 Borderline 1:80 Positive >1:80 ICAP nomenclature: AC-0 For more information about Hep-2 cell patterns use ANApatterns.org, the official website for the International Consensus on Antinuclear Antibody (BRETT) Patterns (ICAP).Performed By: #### ANAIFA #### [facility] [address] [place] [address] Dr. Venkat SloanINSULINon 85-94-3342Thahyqy28.1 uIU/mLNormal2.6-24.9The [facility] ClinicComment on above:Performed By: #### TSH #### [facility] [address] [place] [address] Dr. Venkat SloanANTISTREPTOLYSIN O AB (ASO)on 38-49-0005Xxxaokhyuyihdiqf O Ab <20.1Snjzaq4.0-200.0The [facility] ClinicComment on above:Performed By: #### PREGQNT #### [facility] [address] [place] [address] Dr. Venkat SloanRHEUMATOID FACTORon 20-01-9602LU Latex Turbid.<10.0Normal<14.0The [facility] ClinicComment on above:Performed By: #### RF #### [facility] [address] [place] [address] Dr. Venkat Combs AUTO DIFFon 29-82-6148FRVI #0.0 103/ulNormal0.0-0.1The [facility] ClinicComment on above:Performed By: #### TSH #### [facility] [address] [place] [address] Dr. Venkat SloanBasophils/100 WBC (Bld)0.3 %Normal0.2-2.0The [facility] Comment on above:Performed By: #### TSH #### [facility] [address] [place] [address] Dr. Robledo ChangEO #0.1 103/ulNormal0.0-0.7The [facility] ClinicComment on above: Performed By: #### TSH #### [facility] [address] [place] [address] Dr. Venkat Lewosinophils/100 WBC (Bld)1.8 %Normal0.9-7.0The [facility] Comment on above:Performed By: #### TSH #### [facility] [address] [place] [address] Dr. Venkat Lewrythrocyte distribution width (RBC) [Ratio]12.9 %Ioyqln63.0-15.0 The [facility] ClinicComment on above:Performed By: #### TSH #### [facility] [address] [place] [address] Dr. Venkat SloanHematocrit (Bld) [Volume fraction]39.8 %Cgimbv32.0-48.0The [facility] ClinicComment on above:Performed By: #### TSH #### [facility] [address] [place] [address] Dr. Venkat SloanHemoglobin (Bld) [Mass/Vol]12.7 g/uADrhpmy33.0-16.0The [facility] ClinicComment on above:Performed By: #### TSH #### [facility] [address] [place] [address] Dr. Venkat Monson #0.02 10e3/ulNormal0.00-0.03The [facility] ClinicComment on above:Performed By: #### TSH #### [facility] [address] [place] [address] Dr. Venkat Monson %0.3 %Normal0.0-0.5The [facility] HospitalComment on above: Performed By: #### TSH #### [facility] [address] [place] [address] Dr. Venkat PlazaH #1.5 103/ulNormal1.2-3.8The [facility] ClinicComment on above:Performed By: #### TSH #### [facility] [address] [place] [address] Dr. Yilan ChangLymphocytes/100 WBC (Bld)21.5 %Chhwzo77.5-60.0The [facility] ClinicComment on above:Performed By: #### TSH #### [facility] [address] [place] [address] Dr. Venkat Rodriguez DIFF REQNONormalThe [facility] ClinicComment on above: Performed By: #### TSH #### [facility] [address] [place] [address] Dr. Venkat Kearns (RBC) [Entitic mass]28.5 ffNroept16.7-34.0The [facility] HospitalComment on above:Performed By: #### TSH #### [facility] [address] [place] [address] Dr. Venkat Kearns (RBC) [Mass/Vol]31.9 g/rVYlzjcg72.9-35.2The [facility] ClinicComment on above:Performed By: #### TSH #### [facility] [address] [place] [address] Dr. Venkat Brennan (RBC) [Entitic vol]89.2 tTQoqpzy08.0-99.0The [facility] ClinicComment on above:Performed By: #### TSH #### [facility] [address] [place] [address] Dr. Venkat Marte #0.5 103/ulNormal0.3-0.8The [facility] ClinicComment on above:Performed By: #### TSH #### [facility] [address] [place] [address] Dr. Venkat Desaiocytes/100 WBC (Bld)7.6 %Normal1.7-12.0The [facility] Comment on above:Performed By: #### TSH #### [facility] [address] [place] [address] Dr. Venkat Lopez #4.9 103/ulNormal1.4-6.5The [facility] ClinicComment on above:Performed By: #### TSH #### [facility] [address] [place] [address] Dr. Yilan ChangNeutrophils/100 WBC (Bld)68.5 %Astghk91.0-75.0The [facility] ClinicComment on above:Performed By: #### TSH #### [facility] [address] [place] [address] Dr. Venkat Robles mean volume (Bld) [Entitic vol]8.8 fLCritically low 9.5-13.5The [facility] ClinicComment on above:Performed By: #### TSH #### [facility] [address] [place] [address] Dr. Veknat SloanPLT297 103/ubNnnmxe001-708Pzr [facility] on above: Performed By: #### TSH #### [facility] [address] [place] [address] Dr. Venkat SloanRBC4.46 106/ulNormal4.20-5.40The [facility] on above:Performed By: #### TSH #### [facility] [address] [place] [address] Dr. Venkat SloanWBC7.1 103/ulNormal4.0-11.0The [facility] on above: Performed By: #### TSH #### [facility] [address] [place] [address] Dr. Venkat Juan 08-08-8921CXR [Mass/Vol]mg/LNormal<=1.0The [facility] on above:Performed By: #### PREGQNT #### [facility] [address] [place] [address] Dr. Venkat Cornejo THYROXINE INDEX T7on 11-88-0812YXF1.33Ljpqtz0.30-4.50The [facility] ClinicCom[facility] [place] on above:Performed By: #### PREGQNT #### [facility] [address] [place] [address] Dr. Venkat SloanT3U33.0 %Pvcser83.0-39.0The [facility] ClinicCom[facility] [place] on above: Performed By: #### PREGQNT #### [facility] [address] [address] [address] Venkat SloanT4 [Mass/Vol]8.20 ug/dLNormal4.80-13.90The [facility] Comment on above:Performed By: #### PREGQNT #### [facility] [address] [place] [address] Dr. Venkat SloanGLYCOHEMOGLOBIN A1Con 89-46-3852FTT RECOMMENDATIONSEE BELOWPleasant Hill The [facility] ClinicComment on above:Result Comment: ADA RECOMMENDED LIMIT 4.0 - 6.0 ADA THERAPEUTIC TARGET < 7.0 ACTION SUGGESTED > 7.0Performed By: #### INFLUAB #### [facility] [address] [place] [address] Dr. Venkat SloanGlucose [Mass/Vol]105 mg/dLNoCleveland Clinic Euclid HospitalComment on above:Performed By: #### INFLUAB #### [facility] [address] [place] [address] Dr. Venkat SloanHbA1c (Bld) [Mass fraction]5.3 %Normal4.5-6.2[facility] Medical CenterComment on above:Performed By: #### INFLUAB #### [facility] [address] [place] [address] Dr. Venkat Fernandes 34-33-1904Kcxx [Mass/Vol]49.0 ug/dLCritically low 50.0-170.0[facility] Medical CenterComment on above:Performed By: #### PREGQNT #### [facility] [address] [place] [address] Dr. Venkat SloanLIPID PROFILEon 91-42-9437ZTQN-HDL RATIO NORMSEE [facility] HospitalComment on above:Result Comment: 3.3 - 4.4 LOW RISK 4.4 - 7.1 AVERAGE RISK 7.1 - 11.0 MODERATE RISK >11.0 HIGH RISKPerformed By: #### PREGQNT #### [facility] [address] [place] [address] Dr. Venkat SloanCholesterol [Mass/Vol]197 mg/dLNormal<=200The [facility] Comment on above:Performed By: #### PREGQNT #### [facility] [address] [address] [address] Venkat SloanCholesterol in HDL [Mass/Vol]64 mg/dLCritically ubnd49-08Lio [facility] ClinicComment on above:Performed By: #### PREGQNT #### [facility] [address] [address] [address] Venkat SloanCholesterol in LDL [Mass/Vol]123.4 mg/dLNoCleveland Clinic Euclid HospitalComment on above:Performed By: #### PREGQNT #### [facility] [address] [address] [address] Venkat Jensenesteremiliano.total/Cholesterol in HDL [Mass ratio]3.1 {ratio} NormalThe [facility] ClinicComment on above:Performed By: #### PREGQNT #### [facility] [address] [place] [address] Dr. Venkat MathewL NORMAL> or = 60 mg/dl - LOW CARDIOVASCULAR RISK <40 mg/dl - HIGH CARDIOVASCULAR RISKNoCleveland Clinic Euclid HospitalComment on above:Performed By: #### PREGQNT #### [facility] [address] [place] [address] Dr. Venkat SloanLDL CALC NORMALSEE BELOWMemorial Health SystemComment on above:Result Comment: <100 mg/dl OPTIMAL 100 - 129 mg/dl NEAR OR ABOVE OPTIMAL 130 - 159 mg/dl BORDERLINE HIGH 160 - 189 mg/dl HIGH >190 mg/dl VERY HIGH Performed By: #### PREGQNT #### [facility] [address] [address] [address] Venkat SloanTriglyceride [Mass/Vol]48 mg/dLNoal<=150The [facility] Comment on above:Performed By: #### PREGQNT #### [facility] [address] [place] [address] Dr. Venkat SloanVLDL CALC9.6 mg/dLNoCleveland Clinic Euclid HospitalComment on above: Performed By: #### PREGQNT #### [facility] [address] [place] [address] Dr. Venkat SloanPROF 14(COMP METB)on 45-77-6694Jpmtnzu [Mass/Vol]4.0 g/dLNormal 3.4-5.0The [facility] ClinicComment on above:Performed By: #### INFLUAB #### [facility] [address] [place] [address] Dr. Venkat SloanAlbumin/Globulin [Mass ratio]1.3 {ratio}NormalThe [facility] ClinicComment on above:Performed By: #### INFLUAB #### [facility] [address] [place] [address] Dr. Venkat HectorP [Catalytic activity/Vol]58 U/VYfskei76-445Pza [facility] ClinicComment on above:Performed By: #### INFLUAB #### [facility] [address] [place] [address] Dr. Venkat HectorT [Catalytic activity/Vol]20 U/ANeklic41-19Bzq [facility] ClinicComment on above:Performed By: #### INFLUAB #### [facility] [address] [place] [address] Dr. Venkat Ruiz gap [Moles/Vol]10.4 mmol/LNormalThe [facility] Comment on above:Performed By: #### INFLUAB #### [facility] [address] [place] [address] Dr. Venkat SloanAST [Catalytic activity/Vol]11 U/LCritically ewo50-61Tzd [facility] ClinicComment on above:Performed By: #### INFLUAB #### [facility] [address] [place] [address] Dr. Venkat SloanBilirubin [Mass/Vol]0.8 mg/dLNormal0.2-1.0The [facility] Comment on above:Performed By: #### INFLUAB #### [facility] [address] [place] [address] Dr. Venkat SloanCalcium [Mass/Vol]9.0 mg/dLNormal8.5-10.1The [facility] Comment on above:Performed By: #### INFLUAB #### [facility] [address] [address] [address] Venkat SloanChloride [Moles/Vol]106 mmol/TYuctdx18-531Dno [facility] Comment on above:Performed By: #### INFLUAB #### [facility] [address] [address] [address] Venkat SloanCO2 [Moles/Vol]27.0 mmol/DLqleem45.0-32.0The [facility] Comment on above:Performed By: #### INFLUAB #### [facility] [address] [address] [address] Venkat SloanCreatinine [Mass/Vol]0.70 mg/dLNormal0.55-1.02The [facility] ClinicComment on above:Performed By: #### INFLUAB #### [facility] [address] [place] [address] Dr. Robledo ChangEGFR-AF MACANESE>60Normal>=60The [facility] ClinicComment on above:Performed By: #### INFLUAB #### [facility] [address] [address] [address] Venkat LewGFR-NON AF MACANESE>60Normal>=60The [facility] ClinicComment on above:Performed By: #### INFLUAB #### [facility] [address] [address] [address] Venkat SloanGlobulin (S) [Mass/Vol]3.2 g/dLNormalThe [facility] ClinicComment on above:Performed By: #### INFLUAB #### [facility] [address] [address] [address] Venkat SloanGlucose [Mass/Vol]92 mg/zKGzfket96-427Hkd [facility] Comment on above:Performed By: #### INFLUAB #### [facility] [address] [address] [address] Venkat SloanPotassium [Moles/Vol]4.4 mmol/LNormal3.5-5.1The [facility] Comment on above:Performed By: #### INFLUAB #### [facility] [address] [address] [address] Venkat SloanProtein [Mass/Vol]7.2 g/dLNormal6.4-8.2The [facility] Comment on above:Performed By: #### INFLUAB #### [facility] [address] [place] [address] Dr. Venkat SloanSodium [Moles/Vol]139 mmol/DEbiibt257-059Lct [facility] Comment on above:Performed By: #### INFLUAB #### [facility] [address] [place] [address] Dr. Venkat SloanUrea nitrogen [Mass/Vol]13.0 mg/dLNormal7.0-18.0The [facility] ClinicComment on above:Performed By: #### INFLUAB #### [facility] [address] [place] [address] Dr. Venkat SloanUrea nitrogen/Creatinine [Mass ratio]18.6 mg/mgNormalThe [facility] ClinicComment on above:Performed By: #### INFLUAB #### [facility] [address] [place] [address] Dr. Venkat SloanTSHon 81-31-1731YHA0.318 uIU/mLNormal0.358-3.740The [facility] ClinicComment on above:Performed By: #### PREGQNT #### [facility] [address] [place] [address] Dr. Venkat SloanURIC ACID SERUMon 62-41-4450Eqifq [Mass/Vol]3.9 mg/dLNormal 2.6-6.0The [facility] ClinicComment on above:Performed By: #### PREGQNT #### [facility] [address] [place] [address] Dr. Venkat SloanXR CSPINE MIN 4 VIEWSon 68-41-9980VC CSPINE MIN 4 VIEWS EXAMINATION: XR CSPINE MIN 4 VIEWS HISTORY: Cervical radiculopathy COMPARISON: No relevant comparison available. FINDINGS: BONES: Normal. No significant spondylosis, scoliosis, fracture, or visible bony lesion. DISC SPACES: Normal. No significant disc height narrowing, subluxation, or endplate abnormality. PARASPINOUS: Negative. No paraspinous abnormality is seen. OTHER: Negative. IMPRESSION: No acute disease. Electronically authenticated by: DUDLEY DAVIS Date: 2021-09-24 21:16[facility] SystemPREG QUANT HCGon 74-53-1648FIF QUANT<1NormalThe [facility] ClinicComment on above:Performed By: #### INFLUAB #### [facility] [address] [place] [address] Dr. Venkat SloanHCG RANGES BELOWMemorial Health SystemComment on above: Result Comment: 5-50 0-1 WEEK 40-300 1-2 WEEKS 100-1,000 2-3 WEEKS 500-6,000 3-4 WEEKS 5,000-200,000 1-2 MONTHS 10,000-100,000 2-3 MONTHS 3,000-50,000 2ND TRIMESTER 1,000-50,000 3RD TRIMESTERPerformed By: #### INFLUAB #### [facility] [address] [place] [address] Dr. Venkat SloanUS PELVIS AND TRANSVAGon 36-60-3222HW PELVIS AND TRANSVAG EXAMINATION: US PELVIS AND [...] Electronically authenticated by: DUDLEY DAVIS Date: 2021-08-17 07:01[facility] SystemCOVID Quick Testingon 45-49-0840BnblxaLoaincajBrhjx [facility] Other Vital Signs Date TimeVital SignValuePerforming ZhocvfobjHwqgifur94-30-4554 11:01-0400Body mass index (BMI) [Ratio]26.45 kg/m2Josi VILLARREAL Work Phone: [facility]Ajjkplxgcw32-97-8080 11:01-0400Body mxceuk78.5 kg Josi VILLARREAL Work Phone: [facility]fieldLbibanpocz03-17-4212 11:01-0400Diastolic blood oqehcbag76 mm[Hg]Josi VILLARREAL Work Phone: [facility]fieldHvylppcrwh89-22-4347 11:01-0400Systolic blood mm[Hg]Josi VILLARREAL Work Phone: [facility]fieldQydildxyqi42-72-6585 14:22-0400Body mass index (BMI) [Ratio]27.55 kg/o5Oojom Jennifer DO Work Phone: [phone] [place], [place] [address]Qqptawtqsw22-99-5144 14:22-0400Body hoxyjn79.13 kgCorey Jennifer DO Work Phone: [facility]fieldRsttpozygf49-81-5838 14:22-0400Diastolic blood aqrvqafl63 mm[Hg]Wisam Jennifer DO Work Phone: [facility]fieldCgrzbbhyay50-53-6374 14:22-0400Systolic blood mm[Hg]Wisam Jennifer DO Work Phone: [facility]fieldVkcbrdmsri26-82-9266 10:41-0400Body mass index (BMI) [Ratio]27.93 kg/m2Josi Prescott PA Work Phone: [facility]fieldPqimrefgbz57-36-9832 10:41-0400Body vyjsia08.04 kgJosi VILLARREAL Work Phone: [facility]fieldUarurewprw29-65-3560 10:41-0400Diastolic blood vrlsliqb12 mm[Hg]Josi VILLARREAL Work Phone: [facility]fieldGyaabukcrj03-32-7321 10:41-0400Systolic blood rnespiru459 mm[Hg]Josi VILLARREAL Work Phone: [facility]fieldNpeosfdzug13-49-2024 12:02-0400Body mass index (BMI) [Ratio]27.78 kg/b9Chxnk Jennifer DO Work Phone: [facility]fieldTgjcbeorsl20-74-4200 12:02-0400Body yzzoaz40.68 kgCorey Jennifer DO Work Phone: [facility]fieldNjiyctljpz25-43-7264 12:02-0400Diastolic blood qpvugrqj19 mm[Hg]Wisam Jennifer DO Work Phone: [facility]fieldDwpqhcnfqw52-92-8348 12:02-0400Systolic blood wxzntugr605 mm[Hg]Wisam Jennifer DO Work Phone: [facility]fieldSnbmngqddr22-16-4461 09:27-0500Body kyefio832.94 cmUniversity [facility]02-25-2024 09:27-0500Body mass index (BMI) [Ratio]30.8 kg/g4LqhjlatfeUniversity Hospitals Portage Medical Center02-25-2024 09:27-0500Body mqrdamsmmwv10.1 [degF][facility]02-25-2024 09:27-0500Body yoawzj13.04 kgUniversity Hospitals [facility]02-25-2024 09:27-0500Heart rate 78 /[facility]02-25-2024 09:27-0500Respiratory rate16 /[facility]02-25-2024 09:27-1566BlI5% (BldA) [Mass fraction]98 %[facility]02-13-2024 15:14-0500Body mass index (BMI) [Ratio]30.04 kg/u8Apllp Jennifer DO Work Phone: [facility]fieldMpjutzndqz59-49-9664 15:14-0500Body .12 kgCorey Jennifer DO Work Phone: [facility]fieldQcaxnjlojh45-33-0023 15:14-0500Diastolic blood zsyoqqdz41 mm[Hg]Wisam Jennifer DO Work Phone: BalzoYcxuthvpba66-48-8651 15:14-0500Systolic blood yrnixfzw223 mm[Hg]Wisam Rodriguez DO Work Phone: BalzoZqnhaetrwk32-78-9742 18:45-0400Body .94 cmSjoe Martinez Other [employer] Other 11-02-2021 18:45-0400Body mass index (BMI) [Ratio] 28.34 kg/c3Owevovfkcmarco Martinez Other [employer] Other 11-02-2021 18:45-0400Body hxwqaqikuiy99.4 [degF] Mohini Martinez Other [employer] Other 11-02-2021 18:45-0400Body ylkfgt63.04 kgStmarco Martinez Other [employer] Other 11-02-2021 18:45-0400Respiratory rate18 /minSjoe Martinez Other [employer] Other 11-02-2021 18:45-6452AeX5% (BldA) [Mass fraction]99 % Mohini Martinez Other [employer] Other 09-27-2021 11:45-0400Body ezrwyk307.94 cmDavid Hykes Other [employer] Other 09-27-2021 11:45-0400Body mass index (BMI) [Ratio] 28.34 kg/z9Fycxt Hykes Other [employer] Other 09-27-2021 11:45-0400Body ggliqv35.04 kgDavid Lydia Other [facility] [employer] Other Encounters Encounter DateEncounter TypeCare ProviderFacilityStart: 01-30-2025 End: 11-34-5215iovkicepnmNbbnuvy M [place]-[facility]ospStart: 01-30-2025 End: 64-35-9584Rzbgxtkr ReferredIron Ch MD-LAB [facility] Start: 09-24-2024 End: 25-55-4540Escwrl Meaghan VILLARREAL Work Phone: [facility] BCP OBStart: 09-24-2024 End: 92-55-4645Wiuecy Meaghan VILLARREAL Work Phone: [facility] BCP OBStart: 09-24-2024 End: 00-96-2248rnqhajnpwwKSI RAMEYNot AvailableStart: 09-24-2024 End: 63-81-7120Uiwhqn follow up visit related to original Marianela VILLARREAL Work Phone: [facility] BCP OBComment on above:Postoperative visit; S/P laparoscopy; Cystostomy status (HCC)Start: 09-13-2024 End: 42-26-2908Ajmoppdgc Result EncounterCorey Jennifer DO Work Phone: noms External Department UnsolicitedStart: 09-13-2024 End: 96-17-9370Uyqfvclko Result EncounterCorey Jennifer DO Work Phone: noms External Department UnsolicitedStart: 09-13-2024 End: 02-60-4401bykflfqksiHrskj FazioFacility:[facility] Start: 08-28-2024 End: 52-38-1926ywrleeyfzaJSUKB FAZIONot AvailableStart: 08-28-2024 End: 12-08-6568Afufrp outpatient visit 15 minutesCorey Jennifer DO Work Phone: n[facility] BCP OBComment on above:Pre-op examination; Cyst of right ovary; Complex ovarian cyst; Pelvic painStart: 08-28-2024 End: 41-40-6232Vfqifnobvcttg examination doneCorey Jennifer DO Work Phone: [facility] HealthcareStart: 08-27-2024 End: 61-99-8599Wyqeqsump Result EncounterAmy Genie VILLARREAL Work Phone: noMS External Department UnsolicitedStart: 08-27-2024 End: 18-15-0490Glbvleycm Result EncounterAmy Genie VILLARREAL Work Phone: [facility] External Department UnsolicitedStart: 08-21-2024 End: 00-04-0406Gbaimw flowsheetAmy Genie PA Work Phone: noms BCP OBStart: 08-21-2024 End: 29-31-3973Rkhphg flowsheetAmy Genie VILLARREAL Work Phone: [facility] BCP OBStart: 08-21-2024 End: 47-05-3211Nyypky outpatient visit 15 minutesAmy Genie VILLARREAL Work Phone: noms BCP OBComment on above:Cyst of right ovary; Complex ovarian cystStart: 08-21-2024 End: 01-67-3965vowolugxpaRBM RAMEYNot AvailableStart: 08-15-2024 End: 32-55-4945mbrtibmiwhOmnwqmw Nabila [facility] Work Phone: Start: 08-15-2024 End: 84-49-5791Vcnehnhx ReferredMelissa Marker DO Work Phone: [facility]ospStart: 07-19-2024 End: 24-88-1375Jvzump outpatient visit 15 minutesCorey Jennifer DO Work Phone: n[facility] BCP OBComment on above:Irregular periods/menstrual cycles; Pelvic pain in femaleStart: 07-19-2024 End: 89-50-7527nqwfstbjmcDSMGN FAZIONot AvailableStart: 06-28-2024 End: 76-11-0739Jfixquffc Result EncounterCorey Jennifer DO Work Phone: noms External Department UnsolicitedStart: 06-28-2024 End: 69-65-8396Fhuynmhgq Result EncounterCorey Jennifer DO Work Phone: noms External Department UnsolicitedStart: 03-28-2024 End: 34-93-2220Fikpgffvr Result EncounterCorey Jennifer DO Work Phone: noms External Department UnsolicitedStart: 03-28-2024 End: 47-93-0570Bmissdvgi Result EncounterCorey Jennifer DO Work Phone: noms External Department UnsolicitedStart: 03-01-2024 End: 11-15-8396Esopet flowsheetCorey Jennifer DO Work Phone: [facility] BCP OBStart: 03-01-2024 End: 25-87-7819Qixrif flowsheetCorey Jennifer DO Work Phone: noms BCP OBStart: 03-01-2024 End: 44-33-3071Xshpjc outpatient visit 15 minutesCorey Jennifer DO Work Phone: [facility] OBComment on above:Abnormal vaginal bleeding; PCOS (polycystic ovarian syndrome)Start: 03-01-2024 End: 45-65-5136qktszuslmuJCCAZ FAZIONot AvailableStart: 09-26-2023 End: 06-48-4256tdopfslzmbXWRIW FAZIONot AvailableStart: 08-09-2023 End: 43-79-2962Oghitpeqd Result EncounterCorey Jennifer DO Work Phone: noms External Department UnsolicitedStart: 08-09-2023 End: 60-19-2701Rpilqtgti Result EncounterCorey Jennifer DO Work Phone: noms External Department UnsolicitedStart: 08-02-2023 End: 68-96-7646Cccisdgbd Result EncounterCorey Jennifer DO Work Phone: noms External Department UnsolicitedStart: 08-02-2023 End: 86-66-4900Lvdilirks Result EncounterCorey Jennifer DO Work Phone: NOCW External Department UnsolicitedStart: 07-26-2023 End: 42-48-7776Ogydbbknv Result EncounterCorey Jennifer DO Work Phone: NOCR External Department UnsolicitedStart: 07-26-2023 End: 99-07-1454Drdshnxge Result EncounterCorey Jennifer DO Work Phone: [facility] External Department UnsolicitedStart: 07-22-2023 End: 48-36-1622Nvvveckaw Result EncounterCorey Jennifer DO Work Phone: [facility] External Department UnsolicitedStart: 07-22-2023 End: 51-55-6524Foyipfxik Result EncounterCorey Jennifer DO Work Phone: [facility] External Department UnsolicitedStart: 07-19-2023 End: 89-01-5821Ddyhuacuf Result EncounterCorey Jennifer DO Work Phone: [facility] External Department UnsolicitedStart: 07-19-2023 End: 99-45-9484Adwsjwxdd Result EncounterCorey Jennifer DO Work Phone: [facility] External Department UnsolicitedStart: 07-12-2023 End: 32-42-7846Juzgfyxjc Result EncounterCorey Jennifer DO Work Phone: [facility] External Department UnsolicitedStart: 07-12-2023 End: 60-25-2816Auduhwqbp Result EncounterCorey Jennifer DO Work Phone: [facility] External Department UnsolicitedStart: 07-07-2023 End: 92-74-2100Gvavaljta Result EncounterCorey Jennifer DO Work Phone: [facility] External Department UnsolicitedStart: 07-07-2023 End: 44-14-6330Fgltalhkg Result EncounterCorey Jennifer DO Work Phone: [facility] External Department UnsolicitedStart: 06-28-2023 End: 78-31-8584Phmyxtnfe Result EncounterCorey Jennifer DO Work Phone: noms External Department UnsolicitedStart: 06-28-2023 End: 64-60-2080Hpdnuztoe Result EncounterCorey Jennifer DO Work Phone: noms External Department UnsolicitedStart: 06-09-2023 End: 73-25-8607Xboogyqgc Result EncounterCorey Jennifer DO Work Phone: noms External Department UnsolicitedStart: 06-09-2023 End: 01-63-0616Zhuhkdgax Result EncounterCorey Jennifer DO Work Phone: noms External Department UnsolicitedStart: 05-26-2023 End: 00-66-3853Cnotfmaty Result EncounterCorey Jennifer DO Work Phone: noms External Department UnsolicitedStart: 05-26-2023 End: 57-57-3715Vcufyivwe Result EncounterCorey Jennifer DO Work Phone: noms External Department UnsolicitedStart: 05-22-2023 End: 21-94-1402wtspldbudgBiqcywrdsC[facility] Clinic [facility] Work Phone: Start: 05-22-2023 End: 77-07-3569Nreewbe encounter procedureHaywood [facility] Work Phone: Start: 05-10-2023 End: 39-71-2118Ogqbuvzf flow sheetCorey Jennifer DO Work Phone: noms BCP OBComment on above:Second trimester ; Diabetes mellitus screeningStart: 04-01-2023 End: 08-65-9775Wesmchzqj Result EncounterCorey Jennifer DO Work Phone: noms External Department UnsolicitedStart: 04-01-2023 End: 47-02-6716Qrmtaxeva Result EncounterCorey Jennifer DO Work Phone: noms External Department UnsolicitedStart: 07-09-2022 Encounter for other preprocedural examinationDR WISAM JENNIFER .[facility]: 07-08-2022 End: 06-99-6647ostftbmqmrHQ WISAM JENNIFER .Facility:U4Cuesr: 06-30-2022 End: 01-77-4881sovoytoybgRT WISAM JENNIFER .Facility:B9Xfeid: 06-30-2022 End: 58-50-8985Frlmbzmmk for other preprocedural examinationDR WISAM JENNIFER . Facility:A8Vtknq: 06-21-2022 End: 57-50-4247lgxuielheqHD WISAM JENNIFER .Facility:P6Omyrd: 05-31-2022 End: 98-98-0470ipcrtfqhhjXR IRON HOY .Facility:T9Jmvnt: 05-20-2022 End: 13-89-9837hkmcmzaklcOL WISAM JENNIFER .Facility:Q4Oncoa: 05-04-2022 End: 91-62-1976qtjrxdocjrCA WISAM JENNIFER .Facility:P5Sqvce: 05-04-2022 End: 48-71-7142ocsaytkcjdAQ IRON HOY .Facility:G6Rxryy: 04-23-2022 End: 56-70-9313guinayvwsjDE WISAM JENNIFER .Facility:T5Ivmvd: 04-02-2022 End: 50-08-1830voilibhprtKD IRON HOY .Facility:H7Pogpd: 04-01-2022 End: 15-65-5785cubwrtynhzWL IRON HOY .Facility:D1Ogzou: 03-24-2022 End: 45-01-0509iajdtrwvgnHRHAHN CRAMERFacility:P5Aiezk: 03-15-2022 End: 03-66-4568qrpamodwwhJM IRON HOY .Facility:E6Txaje: 03-12-2022 End: 11-68-1171apuioctszeRY IRON [place]Y .Facility:H3Yzbtc: 02-17-2022 End: 32-55-7445zyrysentrpYS WISAM JENNIFER .Facility:S3Elugp: 02-10-2022 End: 77-26-3764eobigmvpsmTH IRON HOY .Facility:L7Etuip: 02-03-2022 End: 16-51-7195ugwwfdlgubYO IRON HOY .Facility:G9Uuygn: 17-06-2449hgcnfwvaua DR WISAM JENNIFER .Facility:K0Lvbfc: 01-13-2022 End: 09-85-8453whrqeoobvqWE WISAM JENNIFER .Facility:C6Lvtbp: 01-12-2022 End: 91-53-0533iujqhjspbdMV IRON HOY .Facility:T2Rgted: 12-24-2021 End: 18-86-6623ciusuqqcloYG [place]ON [place] .Facility:O6Dnsjl: 11-21-2021 End: 99-87-0825ulbkvzmwdkVZ WISAM JENNIFER .Facility:A1Jfwxr: 58-87-0834Vhznkckff for general adult medical examination without abnormal findingsDR IRON HOY . [facility] HospitalStart: 09-26-2021 End: 42-91-8912nthhslvwpuHL IRON HOY .Facility:R0Xqdhp: 09-26-2021 End: 14-32-2261Toyxolbhw for general adult medical examination without abnormal findingsDR IRON HOY .Facility:J4Rspdy: 09-24-2021 End: 04-32-0992hiijzlhnohMK IRON HOY .Facility:L7Kustu: 08-17-2021 End: 24-28-9542ssjrkqpcdvJG WISAM JENNIFER .Facility:W5Hfubz: 08-15-2021 End: 83-42-5543mmrwtwkkejRI WISAM JENNIFER .Facility:W3Oqsca: 01-27-2021 End: 13-60-1665sslxtyspboRxdkvxzpk [place] Other [place] [employer] Other Start: 12-02-4498Amyjxl outpatient visit 15 minutes Mohini MartinezFPG Urgent Care ClydeStart: 56-97-7074Agscuz outpatient new 45 minutesDavid HykesFPG Gastroenterology Procedures DateProcedureProcedure DetailPerforming ClinicianStart: 34-84-6782JBY CBC WITH AUTO DIFFCorey Jennifer DO Work Phone: Start: 38-86-8206SIO Vanessa VILLARREAL Work Phone: Start: 77-16-6976UIX CBC WITH AUTO DIFFCorey Jennifer DO Work Phone: Start: 96-65-1250JT PELVIS W/ TRANSVAGINALCorey Jennifer DO Work Phone: Start: 50-36-8717ZS OB BPP W NON-STRESSCorey Jennifer DO Work Phone: Start: 74-66-6534QV OB BPP W NON-STRESSCorey Jennifer DO Work Phone: Start: 03-38-1625SA OB BPP W NON-STRESSCorey Jennifer DO Work Phone: Start: [id number] OB BPP W NON-STRESSCorey Jennifer DO Work Phone: Start: [id number] OB BPP W NON-STRESSCorey Jennifer DO Work Phone: Start: [id number] OB BPP W NON-STRESSCorey Jennifer DO Work Phone: Start: [id number] OB BPP W NON-STRESSCorey Jennifer DO Work Phone: Start: [id number] OB BPP W NON-STRESSCorey Jennifer DO Work Phone: Start: [id number] AMNIOTIC FLUID VOLUMECorey Jennifer DO Work Phone: Start: [id number] OB GROWTHCorey Jennifer DO Work Phone: Start: [id number] COVID/FLU/RSVStart: 05-10-2023 Urnls dip stick/tablet rgnt non-auto w/o micrscpCorey Jennifer DO Work Phone: Start: 86-06-7783LL OB ANATOMYCorey Jennifer DO Work Phone: Start: 35-83-2990YV OB TRANSVAGINALCorey Jennifer DO Work Phone: Start: 68-90-6075Bpzvtjojtjt observation [Identifier] in Cervix by Cyto stainCorey Jennifer DO Work Phone: Plan of Treatment DateCare ActivityDetailAuthorStart: 15-49-4264Kjqjlfeps for malignant neoplasm of cervixNOMS HealthcareStart: 93-82-9405Gvravhby identified in Urine by Culture Urine CultureFisher-Titus Medical Centertart: 33-68-9847Jzihk culture [facility] Medical Centertart: 17-79-0724Ozdzmlbbr vaccinationNONJ HealthcareStart: 09-24-2024 End: 56-38-8774Tqgrtur encounter wspyciwsh36/30/2025 10:50 AM EDT Office Visit [facility] [address] [place] [phone] Josi Prescott PA [address] [place] [address] [facility] BCP OBStart: 09-24-2024 End: 64-89-4561Tkesmmb encounter sdilqsxpg95/30/2025 8:50 AM EDT Consult [facility] [address] [place] [address] Wisam Rodriguez, DO [address] [place] [address] [facility] BCP OBStart: 08-28-2024 End: 43-39-4280Ssooohn encounter ltetckvoh05/03/2025 2:00 PM EDT Consult [facility] [address] [place] [address] Wisam Rodriguez, DO [address] [place] [address] [facility] BCP OBStart: 08-21-2024 End: 73-78-9890VHG tumor markerAFP tumor marker Lab Routine Complex ovarian cyst Expected: 08/21/2024 (Approximate), Expires: 08/21/2025[facility] HealthcareComment on above:Expected: 08/21/2024 (Approximate), Expires: 08/21/2025Start: 08-21-2024 End: 17-14-2245YJ 125CA 125 Lab Routine Complex ovarian cyst Expected: 08/21/2024 (Approximate), Expires: 08/21/2025[facility] HealthcareComment on above: Expected: 08/21/2024 (Approximate), Expires: 08/21/2025Start: 08-21-2024 End: 08-37-0270Lqedlzkjwuaupmrv Ag [Mass/volume] in Serum or PlasmaCEA Lab Routine Complex ovarian cyst Expected: 08/21/2024 (Approximate), Expires: 08/21/2025[facility] HealthcareComment on above:Expected: 08/21/2024 (Approximate), Expires: 08/21/2025Start: 08-21-2024 End: 97-88-6312GXB, tumor markerHCG, tumor marker Lab Routine Complex ovarian cyst Expected: 08/21/2024 (Approximate), Expires: 08/21/2025[facility] Healthcare Comment on above:Expected: 08/21/2024 (Approximate), Expires: 08/21/2025Start: 08-21-2024 End: 12-06-7261Mmuadgf dehydrogenase, isoenzymesLactate dehydrogenase, isoenzymes Lab Routine Complex ovarian cyst Expected: 08/21/2024 (Approximate), Expires: 08/21/2025[facility] Healthcare Work Phone: comment on above:Expected: 08/21/2024 (Approximate), Expires: 08/21/2025Start: 65-78-7659Ghjvx cultureFisher-Titus Medical Centertart: 84-31-0962Ewoloidn identified in Urine by CultureUrine Culture [facility] Medical Centertart: 05-24-2024 End: 39-38-3927Mrksjgr encounter ycufcogjn82/27/2025 8:30 AM EST Office Visit [facility] [address] [address] Wisam Rodriguez, DO [address] [place] [address] [facility] BCP OBStart: 03-01-2024 End: 59-53-5471IYN W Auto Differential panel - BloodCBC and differential Lab Routine Abnormal vaginal bleeding Expected: 03/01/2024 (Approximate), Expires: 03/01/2025NONJ HealthcareComment on above:Expected: 03/01/2024 (Approximate), Expires: 03/01/2025Start: 03-01-2024 End: 07-50-1029PAONJRSK Lab Routine Abnormal vaginal bleeding Expected: 03/01/2024, Expires: 03/01/2025[facility] HealthcareComment on above:Expected: 03/01/2024, Expires: 03/01/2025Start: 03-01-2024 End: 33-39-0942UXWJ-sulfateDHEA-sulfate Lab Routine Abnormal vaginal bleeding Expected: 03/01/2024 (Approximate), Expires: 03/01/2025NONJ HealthcareComment on above:Expected: 03/01/2024 (Approximate), Expires: 03/01/2025Start: 03-01-2024 End: 64-22-2367Zuffncid stimulating hormoneFollicle stimulating hormone Lab Routine Abnormal vaginal bleeding Expected: 03/01/2024 (Approximate), Expires: 03/01/2025NONJ HealthcareComment on above:Expected: 03/01/2024 (Approximate), Expires: 03/01/2025Start: 03-01-2024 End: 36-62-6142tTK, quantitative, pregnancyhCG, quantitative, Lab Routine Abnormal vaginal bleeding Expected: 03/01/2024 (Approximate), Expires: 03/01/2025[facility] Healthcare Work Phone: comment on above:Expected: 03/01/2024 (Approximate), Expires: 03/01/2025Start: 03-01-2024 End: 67-17-1123Phpnypfjhs A1c/Hemoglobin.total in BloodHemoglobin A1c Lab Routine Abnormal vaginal bleeding Expected: 03/01/2024 (Approximate), Expires: 03/01/2025NOMS HealthcareComment on above:Expected: 03/01/2024 (Approximate), Expires: 03/01/2025Start: 03-01-2024 End: 77-23-3504Kuscwaibzac hormoneLuteinizing hormone Lab Routine Abnormal vaginal bleeding Expected: 03/01/2024 (Approximate), Expires: 03/01/2025NOMS HealthcareComment on above:Expected: 03/01/2024 (Approximate), Expires: 03/01/2025Start: 03-01-2024 End: 76-24-4158Gcbdxrlclup [Units/volume] in Serum or PlasmaTSH Lab Routine Abnormal vaginal bleeding Expected: 03/01/2024 (Approximate), Expires: 03/01/2025[facility] HealthcareComment on above:Expected: 03/01/2024 (Approximate), Expires: 03/01/2025Start: 03-01-2024 End: 19-96-5440Rahrfqsiu (T4) free [Mass/volume] in Serum or PlasmaT4, free Lab Routine Abnormal vaginal bleeding Expected: 03/01/2024 (Approximate), Expires: 03/01/2025NOMS HealthcareComment on above:Expected: 03/01/2024 (Approximate), Expires: 03/01/2025Start: 03-01-2024 End: 76-26-9563HV for pregnancyUS PELVIS-TRANSVAG IF INDICATED Imaging Routine Abnormal vaginal bleeding Expected: 03/01/2024 (Approximate), Expires: 03/01/2025NOMS HealthcareComment on above:Expected: 03/01/2024 (Approximate), Expires: 03/01/2025Start: 03-01-2024 End: 04-59-1091Uygbpkv encounter gskdownfi66/05/2024 11:10 AM EST Office Visit [facility] [address] [place] [phone] Wisam Rodriguez, DO [address] [place] [address] [facility] OBComment on above:ArrivedStart: 48-28-5519Zhgsayytu for malignant neoplasm of cervixHPV/CotestNOMS Healthcare Start: 05-37-9176Qigohsdvw vaccinationInfluenza Vaccine (#1)[facility] Healthcare Start: 05-26-2023 End: 67-54-3158Tfaibau encounter /29/2024 9:50 AM EST Routine [facility] [address] [place] [phone] Wisam Rodriguez, DO [address] [place] [address] [facility] BCP OBStart: 05-10-2023 End: 54-39-8394KSZ panel - Blood by Automated countCBC Lab Routine Diabetes mellitus screening Expected: 05/10/2023 (Approximate), Expires: 05/10/2024[facility] Work Phone: comment on above:Expected: 05/10/2023 (Approximate), Expires: 05/10/2024Start: 05-10-2023 End: 52-59-0688Taznoguacif of glucose 1 hour after glucose challenge for glucose tolerance testGlucose tolerance, 1 hour Lab Routine Diabetes mellitus screening Expected: 05/10/2023 (Approximate), Expires: 05/10/2024[facility] HealthcareComment on above:Expected: 05/10/2023 (Approximate), Expires: 05/10/2024Start: 12-94-3811Xsjasqxby vaccinationInfluenza Vaccine (#1)[facility] Immunizations Immunization DateImmunizationNotesCare HsmsypsuCehdjlxf23-43-5969xundkjcen virus vaccine, unspecified formulationWisam Rodriguez DO Work Phone: [facility] Healthcare Payers DatePayer CategoryPayerPolicy [id number] Cross Blue [id number]4167.54228-61-4280 UnknownBCBS BCBS [id number] 2022-Present [phone] [facility] [id number] [place] [address].2.840.282064.1.13.693.2.7.3.927765.47295-50-3991Waqtsln [id number] 2.16.840.1.783408.3.579.[id number] 2.16.840.1.235606.3.579.2.54780-01-8074Oqkrxrv4894258 2.16.840.1.786418.3.579.2.03785-84-6145Ciwhdcl7601707 2.16.840.1.880730.3.579.2.44366-12-8561Wqkfsjt2195274 2.16.840.1.566764.3.579.2.22123-77-2592Opulmow3399425 2.16.840.1.030047.3.579.2.03062-35-0522Cjpxjvk0087057 2.16.840.1.391800.3.579.2.03520-29-2316Zimjgsa0619363 2.16.840.1.657136.3.579.2.57252-70-4856Qaunjym2167355 2.16.840.1.583626.3.579.2.12169-72-1808Gdwczzo4672674 2.16.840.1.718643.3.579.2.65059-14-9840Pkvejut8428174 2.16.840.1.238367.3.579.2.50599-44-9330Snqwlzs0745757 2.16.840.1.223242.3.579.2.57344-55-8053Nlshthh2848568 2.16.840.1.047152.3.579.2.37251-65-4216Rhnzzgb3714555 2.16.840.1.254914.3.579.2.26796-84-4332Zlifyet4171005 2.16.840.1.443067.3.579.2.16986-59-0375Ltuozob1084442 2.16.840.1.702366.3.579.2.61075-01-4329Xaypmwd9032499 2.16.840.1.589318.3.579.2.70223-70-3830Nkctjtx3048662 2.16.840.1.563290.3.579.2.46276-78-1137Yqejyqo9631046 2.16.840.1.110449.3.579.2.65891-97-8644Wugnlvl1889419 2.16.840.1.744153.3.579.2.57540-83-1493Epywcqt0450366 2.16.840.1.859418.3.579.2.21599-08-0807Btberde6437902 2.16.840.1.454121.3.579.2.33824-84-5188Kaqwgfu0543260 2.16.840.1.925263.3.579.2.56177-08-2425Yuhdwle8527554 2.16.840.1.299910.3.579.2.57302-76-5061Bisfgdo1730624 2.16.840.1.456270.3.579.2.95820-26-1151Hgnzjrl12911722 2.16.840.1.245791.3.579.2.175568-01-6319Rxfduvu40178958 2.16.840.1.757036.3.579.2.867685-70-3611Odvhhrk3314914 2.16.840.1.619174.3.579.2.978730-44-8812Uvfquqy2254119 2.0.1.905189.3.579.2.275321-74-7851Pkiloho0323116 2..840.1.851295.3.579.2.981351-78-1539Ulfrtvn8691743 2.840.1.344353.3.579.2.943089-58-7800NzxfgbiD2K962Q5816321-59-3627Dsoqfdz AR6469647Opkgldx884660047 2.0.1.909199.95Mygzcde952069688297 9670o0w8-3m33-7k15-3v7i-487u9e98909pUvwcqmrOfkbnx /LXl7e335a95595 mjr59845-t847-6xsl-a923-rzu07s1g7a15Drjgwrc70015277 2.840.1.723972.3.579.2.346Qpajxcg29303179 2.840.1.521382.3.579.2.531 Rxguqts1915 2.0.1.200051.3.579.2.531 Social History DateTypeDetailFacilityUnknown if ever smokedSan Benito [employer] Other Start: 01-28-2023 End: 86-32-4308Djn Assigned At [facility] [employer] Other Start: 01-28-2023 End: 08-92-8372Wejbafh smoking status NHISNever smoked tobaccoNOMS Healthcare Start: 05-10-2023 End: 20-38-5608Fvwsvxq intakeCurrent drinker of alcohol (finding)[facility] Start: 01-28-2023 End: 24-42-8979Ucvidhb of Social functionNOMS HealthcareHow often to you have a drink containing alcohol?2-4 times a monthNOMS HealthcareHow many standard drinks containing alcohol do you have on a typical day?1 or 2NOMS HealthcareHow often do you have 6 or more drinks on 1 occasion?WeeklyNONJ HealthcareStart: 88-84-9788Hwmezcd Commentcaffeine: occasionalNOMS HealthcareStart: 11-26-2022 PregnancyNONJ HealthcareStart: 06-09-6740Kgx Assigned At [facility]FeAth[facility] HealthcareStart: 87-47-0418Ouoqjc identityIdentifies as female gender (finding) [facility] HealthcareStart: 77-94-9756Xhsnjd orientationHeterosexual (finding)[facility] HealthcareStart: 38-23-1538WonXyinte (finding)[facility] Start: 63-03-4677GuiBcnakjMAUX Healthcare Clinical Notes 12-22-2020 to 09-24-2024 Note Date & KvbcQrnwYzuhbago72-65-2152 History of Present illness Narrative* CHERELLE Abdi [...] Hypoglycemia 05/26/2023 JOSESITO (amniotic fluid index) increased ([facility]) 05/26/2023 Third trimester ([facility]) 06/13/2023 32 weeks gestation of ([facility]) 06/30/2023 Resolved Ambulatory Problems Diagnosis Date Noted [...] behalf of: CHERELLE Abdi documented in this encounterMercy hospital springfieldZhsbujxgue92-69-6910 History of Present illness Narrative* Wisam Rodriguez DO - 08/28/2024 2:00 PM EDT Reason for Appointment: Patient ID: Kasandra Macias is a 28 y.o. female who presents for Pre-op Visit Patient presents today for Pre Op appointment. Patient is scheduled to undergo Diagnostic Laparoscopy, possible KAY, possible FOE, possible BSO on 09/13/[address] Rodriguez at [facility]. MEDICATIONS No current outpatient medications ALLERGIES No [...] nursing note reviewed. Exam conducted with a arts and crafts instructor present. Vitals: Estimated body mass index is [...] reviewed, and patient is to proceed to H OR. Follow Up: Patient is to follow up between 1-2 weeks post operative to assess proper healing and recovery fromprocedure. Documented by Melissa Thornton LPN on behalf of: Wisam Rodriguez DO documented in this encounterMercy hospital springfieldDpjigwjcyd64-74-3768 History of Present illness Narrative* CHERELLE Abdi [...] behalf of: CHERELLE Abdi documented in this encounterMercy hospital springfieldCtmydzumjw93-95-5757 History of Present illness Narrative* Abigail Guzman [...] nursing note reviewed. Exam conducted with a arts and crafts instructor present. Vitals: Estimated body mass index is [...] patient. Patient given 3 samples of Tyblume Lot:[id number] Exp: 02/19 Documented by Abigail Guzman LPN on behalf of: Wisam Rodriguez DO documented in this encounterMercy hospital springfieldCniafeajrv38-59-0006 History of Present illness Narrative* Abigail Guzman [...] nursing note reviewed. Exam conducted with a arts and crafts instructor present. Vitals: Estimated body mass index is [...] of: Wisam Rodriguez DO documented in this encounterMercy hospital springfieldVyyqwozltm99-96-0865 History of Present illness Narrative* Melissa Thornton [...] nursing note reviewed. Exam conducted with a arts and crafts instructor present. Vitals: Estimated body mass index is [...] of: Wisam Rodriguez DO documented in this encounterMercy hospital springfieldUjlcssljuk68-39-8090 NoteOPERATIVE NOTE OPERATION DATE: 07/08/2022 PROCEDURE: Diagnostic laparoscopy with fulguration of ovarian endometrial implant. PREOPERATIVE DIAGNOSIS: Pelvic pain. POSTOPERATIVE DIAGNOSIS: Pelvic pain. ANESTHESIA: General. SURGEON: Wisam Rodriguez D.O. IS CONSULTANT: DEVIN Miles URINE OUTPUT: Yellow and [...] taken to Recovery Room in stable condition.[facility] ClinicRkdfxomk47-78-8031 Evaluation note* Encounter Date Diagnosis Assessment Notes Treatment Notes Treatment Clinical Notes Nov, Irritable bowel synd makeda with both constipation and diarrhea (ICD- 10 - K58.2) LABS INDICATED ABOVE START TRIAL OF DICYCLOMINE 20 BID RTO 4 WEEKS INNFOCUS Other Evaluation noteNort [employer] Other Evaluation note* Diagnosis Second trimester state, incidental Diabetes mellitus screening Screening for diabetes mellitus documented in this encounter [facility] HealthcareEvaluation noteNo assessment information availableKnox Community Hospital Work Phone: Evaluation note* Diagnosis Abnormal vaginal bleeding Other specified noninflammatory disorder of vagina PCOS (polycystic ovarian syndrome) Polycystic ovaries documented in this encounter [facility] HealthcareEvaluation note* Diagnosis Irregular periods/menstrual cycles Pelvic pain in female Unspecified symptom associated with female genital organs documented in this encounter [facility] HealthcareEvaluation note* Diagnosis Cyst of right ovary Other and unspecified ovarian cyst Complex ovarian cyst documented in this encounter [facility] HealthcareEvaluation note* Diagnosis Pre-op examination Cyst of right ovary Other and unspecified ovarian cyst Complex ovarian cyst Pelvic pain documented in this encounter [facility] HealthcareEvaluation note* Diagnosis Postoperative visit S/P laparoscopy Other postprocedural status Cystostomy status (HCC) documented in this encounter [facility] springfieldHistory general Narrative - Reported* Type Description Date Medical History anxiety/depression Medical HistoryIBSSurgical HistoryTONSILLECTOMY INNFOCUS Other History general Narrative - ReportedNosullivan county memorial hospital [employer] Other Reason for referral (narrative)No reason for referral information availableOhiohealth Berger Hospital Work Phone: Summary Purpose Family History No Family History [...] and content) DATE CREATED AUTHOR 07/13/2022 [facility] DATE CREATED AUTHOR AUTHOR'S ORGANIZ ATION 09/25/2024 [facility] DATE CREATED AUTHOR AUTHOR'S ORGANIZ ATION 02/01/2025 [facility] Care Teams (unrecognized sec tion and content) Team MemberRelationshipSpecialtyStart DateEnd Date Iron Garcia MD [address] [place] [address] PCP - GeneralFamily Medicine11/23/22 Team Status: Active Member Role Status Dates Iron Garcia MD Primary Care Provider Active Team Status: Inactive Member Role Status Dates Iron Garcia MD Primary Care Provider Active Start: May 22, 2023 End: May 22Trini Echevarria ProviderActiveStart: May 22, 2023 End: May 22, 2023Team MemberRelationshipSpecialtyStart DateEnd Date Iron Garcia MD [address] [place] [facility] [address] PCP - GeneralFamily Medicine11/23/22Team MemberRelationshipSpecialtyStart DateEnd Date Iron Garcia MD [address] [place] [facility] [address] PCP - Generalmi Medicine11/23/22Team MemberRelationshipSpecialtyStart DateEnd Date Iron Garcia MD [address] [place] [facility] [address] PCP - Generalmi Medicine11/23/22Team MemberRelationshipSpecialtyStart DateEnd Date Iron Garcia MD [address] [place] [facility] [address] PCP - GeneralFamily Medicine11/23/22Team MemberRelationshipSpecialtyStart DateEnd Date Iron Garcia MD [address] [place] [facility] [address] PCP - GeneralFamily Medicine08/21/24Team MemberRelationshipSpecialtyStart DateEnd Date Iron Garcia MD [address] [place] [facility] [address] PCP - GeneralFamily Medicine08/21/24 Team Status: Inactive Member Role Status Dates Hannah Dahl Frankie DO Attending Provider Active Start: August 15, 2024 End: August 15, 2024Team MemberRelationshipSpecialtyStart DateEnd Iron Garcia MD [address] [place] [facility] [address] PCP - GeneralFamily Medicine08/21/24Team MemberRelationshipSpecialtyStart DateEnd Date Iron Garcia MD [address] [place] [facility] [address] PCP - GeneralFamily Medicine08/21/24Team MemberRelationshipSpecialtyStart DateEnd Date Iron Garcia MD [address] [place] [facility] [place] [address] PCP - GeneralFamily Medicine08/21/24Team MemberRelationshipSpecialtyStart DateEnd Date Iron Garcia MD PCP - GeneralFamily Medicine Iron Garcia MD [address] [place] [facility] [address] PCP - GeneralFamily Medicine08/21/24Team MemberRelationshipSpecialtyStart DateEnd Date Iron Garcia MD PCP - GeneralFamily Medicine Iron Garcia MD [address] [place] [facility] [address] PCP - GeneralFamily Medicine08/21/24Team MemberRelationshipSpecialtyStart DateEnd Date Iron Garcia MD PCP - [facility] Iron Garcia MD [address] [place] [address] [phone] PCP - [facility]08/21/24 Team Status: Inactive Member Role/Relationship Status Dates [...] BE BASED ON THE PRIMARY CLINICAL RECORDS. [employer] provides no warranty or guarantee of the accuracy or completeness of information in this document.
--- OUTSIDE RECORDS SUMMARY | 2025-02-03 22:41 | XMS_ITS | Encounter Summary ---
Author Organization [facility] Address [address] [place] [address] Care Team Providers Care Gate Keeper Name Role Phone Erik Garcia MD Primary Care Provider [phone] Erik Garcia MD Primary Care Provider [phone] Encounter Details DateTypeDepartmentCare Team (Latest Contact Info)Ihhwxziubhx82/11/2024linisync Result Encounter [facility] External Department Unsolicited Ricardo Rodriguez DO [address] [place] [address] [place] [address] Social History Tobacco UseTypesPacks/DayYears UsedDateSmoking Tobacco: NeverAlcohol UseStandard Drinks/WeekCommentsYes0 (1 standard drink = 0.6 oz pure alcohol)caffeine: occasionalAUDIT-CAnswerDate RecordedQ1: How often do you have a drink containing alcohol?2-4 times a month01/28/2023Q2: How many drinks containing alcohol do you have on a typical day when you are drinking?1 or Q3: How often do you have six or more drinks on one occasion?Vegpuz6701/28/2023CommentsYesSex and Gender InformationValueDate RecordedSex Assigned at SyqobRnoqsv67/28/2023 10:50 AM EDTLegal RpmWbloup74/15/2023 8:06 PM EDTGender YtvnmzttWbzeqe48/28/2023 10:50 AM EDTSexual YiouijzwawcJkyhujlf91/28/2023 10:50 AM EDTdocumented as of this encounter Plan of Treatment DateTypeDepartmentCare Team (Latest Contact Info)Chlfhkfrggm57/10/2025 3:00 PM ESTOffice Visit [facility] [place] [facility] [address] [place] [address] Josi Prescott PA [address] [place] [address] documented as of this encounter Procedures Procedure NamePriorityDate/TimeAssociated DiagnosisCommentsUS OB BPP W NON-MJBBYE0207/07/2023 8:02 AM EDT documented in this encounter Results * US OB BPP W NON-STRESS (07/07/2023 8:02 AM EDT)Anatomical Region LateralityModalityOtherSpecimen (Source)Anatomical Location / Laterality Collection Method / VolumeCollection TimeReceived Time07/07/2023 8:02 AM EDT Narrative 07/07/2023 8:04 AM EDT [facility] ?[address] ? [place] [address] ? Ultrasound Report ? Signed ? Patient: DEARTH,KASANDRA D ?MR#: [id number] ?? : 1995 ?Acct:[id number] ?? Age/Sex: 27 / F ?ADM Date: 07/06/23 ?? Loc: US ? Attending Dr: Ricardo Rodriguez D.O. ? Ordering Physician: Ricardo Rodriguez D.O. ?? Date of Service: 07/06/23 ?? Procedure(s): US OB BPP w non-stress ?? Accession Number(s): [id number] ? cc: Ricardo Rodriguez D.O.; Erik Garcia M.D. ? [facility] ? [address] ? [place] [address] ? Patient Name: ?? KASANDRA MACIAS ? MRN: [id number] ? date: 1995 ?Sex: F ?? Assigned Patient Location: [facility] ?? Current Patient Location: ? Accession/Order Number: [id number] ?? Exam Date: 07/06/2023 ??19:06 ?Report Date: [...] ?Lam Vela M.D. ? Signed By: ?07/07/23 08 ? DD/ 0802 ? TD/TT: ? Professor Of Marketing: Procedure Note Radiology, Radiologist, MD - 07/07/2023 [place] [address] Ultrasound Report Signed Patient: KASANDRA MACIAS DMR#: [id number] : 1995Acct:[id number] Age/Sex: 27 FADM Date: 07/06/23 Loc: US Attending Dr: Ricardo Rodriguez D.O. Ordering Physician: Ricardo Rodriguez D.O. Date of Service: 07/06/23 Procedure(s): US OB BPP w non-stress Accession Number(s): [id number] cc: Ricardo Rodriguez D.O.; Erik Garcia M.D. The [place] [id number] Patient Name: KASANDRA MACIAS MRN: [id number] date: 1995 Sex: F Assigned Patient Location: [facility] Current Patient Location: Accession/Order Number: [id number] Exam Date: 07/06/2023 19:06 Report Date: 07/07/2023 [...] Vela M.D. Signed By:07/07/23803 DD/ 1 TD/TT: Professor Of Marketing: Authorizing ProviderResult TypeResult StatusCorey Jennifer DOCLINISYNC IMAGINGFinal Result documented in this encounter Visit Diagnoses Not on filedocumented in this encounter Care Teams Team MemberRelationshipSpecialtyStart DateEnd Date Erik Garcia MD PCP - GeneralFamily Medicine Erik Garcia MD [address] [place] [address] PCP - GeneralFamily Medicine08/21/24documented as of this encounter
--- OUTSIDE RECORDS SUMMARY | 2025-02-03 22:41 | XMS_ITS | Encounter Summary ---
Author Organization [facility] Address [address] [place] [address] Care Team Providers Care Linoleum Floor Layer Name Role Phone Erik Garcia MD Primary Care Provider [phone] Erik Garcia MD Primary Care Provider [phone] Encounter Details DateTypeDepartmentCare Team (Latest Contact Info)Poozoptomqc94/30/2024linisync Result Encounter [facility] External Department Unsolicited Ricardo Rodriguez DO [address] [place] [address] [place] [address] Social History Tobacco UseTypesPacks/DayYears UsedDateSmoking Tobacco: NeverAlcohol UseStandard Drinks/WeekCommentsYes0 (1 standard drink = 0.6 oz pure alcohol)caffeine: occasionalAUDIT-CAnswerDate RecordedQ1: How often do you have a drink containing alcohol?2-4 times a month01/28/2023Q2: How many drinks containing alcohol do you have on a typical day when you are drinking?1 or Q3: How often do you have six or more drinks on one occasion?Npyrdx4101/28/2023CommentsYesSex and Gender InformationValueDate RecordedSex Assigned at BirjeQkqizk64/28/2023 10:50 AM EDTLegal UweTjuicd05/15/2023 8:06 PM EDTGender JgidwrqfEkukvo03/28/2023 10:50 AM EDTSexual YrthqdsthgdOmrwexbe13/28/2023 10:50 AM EDTdocumented as of this encounter Plan of Treatment DateTypeDepartmentCare Team (Latest Contact Info)Flyjnsnkdkb76/10/2025 3:00 PM ESTOffice Visit [facility] [place] [facility] [address] [place] [address] Josi Prescott PA [address] [facility] [place] [address] documented as of this encounter Procedures Procedure NamePriorityDate/TimeAssociated DiagnosisCommentsUS OB BPP W NON-QTRQUH9807/26/2023 5:40 AM EDT documented in this encounter Results * US OB BPP W NON-STRESS (07/26/2023 5:40 AM EDT)Anatomical Region LateralityModalityOtherSpecimen (Source)Anatomical Location / Laterality Collection Method / VolumeCollection TimeReceived Time07/26/2023 5:40 AM EDT Narrative 07/26/2023 5:42 AM EDT [facility] ?[address] ? [place] [address] ? Ultrasound Report ? Signed ? Patient: DEARTH,KASANDRA D ?MR#: [id number] ?? : 1995 ?Acct:[id number] ?? Age/Sex: 27 / F ?ADM Date: 07/25/23 ?? Loc: US ? Attending Dr: Ricardo Rodriguez D.O. ? Ordering Physician: Ricardo Rodriguez D.O. ?? Date of Service: 07/25/23 ?? Procedure(s): US OB BPP w non-stress ?? Accession Number(s): [id number] ? cc: Ricardo Rodriguez D.O.; Erik Garcia M.D. ? [facility] ? [address] ? [place] [address] ? Patient Name: ?? KASANDRA MACIAS ? MRN: [id number] ? date: 1995 ?Sex: F ?? Assigned Patient Location: [facility]BC ?? Current Patient Location: ? Accession/Order Number: [id number] ?? Exam Date: 07/25/2023 ??16:04 ?Report Date: [...] By: ?Lam Vela M.D. ? Signed By: ?07/26/23 0542 ? DD/ 0540 ? TD/TT: ? Electronics Engineering Manager: Procedure Note Radiology, Radiologist, - 07/26/2023 [place] [address] Ultrasound Report Signed Patient: KASANDRA MACIAS DMR#: [id number] : 1995Acct:[id number] Age/Sex: Date: 07/25/23 Loc: US Attending Dr: Ricardo Rodriguez D.O. Ordering Physician: Ricardo Rodriguez D.O. Date of Service: 07/25/23 Procedure(s): US OB BPP w non-stress Accession Number(s): [id number] cc: Ricardo Rodriguez D.O.; Erik Garcia M.D. The [place] [id number] Patient Name: KASANDRA MACIAS MRN: [id number] date: 1995 Sex: F Assigned Patient Location: [facility] Current Patient Location: Accession/Order Number: [id number] Exam Date: 07/25/2023 16:04 Report Date: 07/26/2023 [...] Vela M.D. Signed By:07/26/2342 DD/ 9 TD/TT: Electronics Engineering Manager: Authorizing ProviderResult TypeResult StatusCorey Jennifer DOCLINISYNC IMAGINGFinal Result documented in this encounter Visit Diagnoses Not on filedocumented in this encounter Care Teams Team MemberRelationshipSpecialtyStart DateEnd Date Erik Garcia MD PCP - GeneralFamily Medicine Erik Garcia MD [address] [place] [address] PCP - GeneralFamily Medicine08/21/24documented as of this encounter
--- OUTSIDE RECORDS SUMMARY | 2025-02-03 22:41 | XMS_ITS | Encounter Summary ---
Author Organization [facility] Address [address] [place] [address] Care Team Providers Care Bar Porter Name Role Phone Erik Garcia MD Primary Care Provider [phone] Erik Garcia MD Primary Care Provider [phone] Encounter Details DateTypeDepartmentCare Team (Latest Contact Info)Gezgrutfcwf85/26/2024linisync Result Encounter [facility]S External Department Unsolicited Ricardo Rodriguez DO [address] [place] [address] [place] [address] Social History Tobacco UseTypesPacks/DayYears UsedDateSmoking Tobacco: NeverAlcohol UseStandard Drinks/WeekCommentsYes0 (1 standard drink = 0.6 oz pure alcohol)caffeine: occasionalAUDIT-CAnswerDate RecordedQ1: How often do you have a drink containing alcohol?2-4 times a month01/28/2023Q2: How many drinks containing alcohol do you have on a typical day when you are drinking?1 or Q3: How often do you have six or more drinks on one occasion?Sfldnw9301/28/2023CommentsYesSex and Gender InformationValueDate RecordedSex Assigned at YjblcPjyyxd20/28/2023 10:50 AM EDTLegal UosWqnbtb26/15/2023 8:06 PM EDTGender NqeuegddXqcvxq19/28/2023 10:50 AM EDTSexual FwhswfpdezkTuqdwkca09/28/2023 10:50 AM EDTdocumented as of this encounter Plan of Treatment DateTypeDepartmentCare Team (Latest Contact Info)Rkofdildnmq58/10/2025 3:00 PM ESTOffice Visit [facility] [place] [facility] [address] [place] [address] Josi Prescott PA [address] [facility] [place] [address] documented as of this encounter Procedures Procedure NamePriorityDate/TimeAssociated DiagnosisCommentsUS OB BPP W NON-JZFPIY7407/22/2023 7:49 AM EDT documented in this encounter Results * US OB BPP W NON-STRESS (07/22/2023 7:49 AM EDT)Anatomical Region LateralityModalityOtherSpecimen (Source)Anatomical Location / Laterality Collection Method / VolumeCollection TimeReceived Time07/22/2023 7:49 AM EDT Narrative 07/22/2023 7:51 AM EDT [facility] ?[address] ? [place] [address] ? Ultrasound Report ? Signed ? Patient: DEARTH,KASANDRA D ?MR#: [id number] ?? : 1995 ?Acct:[id number] ?? Age/Sex: 27 / F ?ADM Date: 07/21/23 ?? Loc: FBCO ? Attending Dr: Ricardo Rodriguez D.O. ? Ordering Physician: Ricardo Rodriguez D.O. ?? Date of Service: 07/21/23 ?? Procedure(s): US OB BPP w non-stress ?? Accession Number(s): [id number] ? cc: Ricardo Rodriguez D.O.; Erik Garcia M.D. ? [facility] ? [address] ? [place] [address] ? Patient Name: ?? KASANDRA Thompson SANCHEZ ? MRN: [id number] ? date: 1995 ?Sex: F ?? Assigned Patient Location: FBC ?? Current Patient Location: ? Accession/Order Number: [id number] ?? Exam Date: 07/21/2023 ??17:36 ?Report Date: 07/22/2023 ??07:49 ? At the request of: ?? RICARDO [...] By: ?Dudley Hernández M.D. ? Signed By: ?07/21/24 0751 ? DD/ 0749 ? TD/TT: ? Capacitor Inspector: Procedure Note Radiology, Radiologist, - 07/22/2023 [place] [address] Ultrasound Report Signed Patient: KASANDRA MACIAS DMR#: [id number] : 1995Acct:[id number] Age/Sex: 27 / FADM Date: 07/21/23 Loc: [facility] Attending Dr: Ricardo Rodriguez D.O. Ordering Physician: Ricardo Rodriguez D.O. Date of Service: 07/21/23 Procedure(s): US OB BPP w non-stress Accession Number(s): [id number] cc: Ricardo Rodriguez D.O.; Erik Garcia M.D. The [place] [id number] Patient Name: KASANDRA MACIAS MRN: [id number] date: 1995 Sex: F Assigned Patient Location: [facility] Current Patient Location: Accession/Order Number: [id number] Exam Date: 07/21/2023 17:36 Report Date: 07/22/2023 [...] M.D. Signed By:07/22/23 0751 DD/ 0749 TD/TT: Capacitor Inspector: Authorizing ProviderResult TypeResult StatusCorey Jennifer DOCLINISYNC IMAGINGFinal Result documented in this encounter Visit Diagnoses Not on filedocumented in this encounter Care Teams Team MemberRelationshipSpecialtyStart DateEnd Date Erik Garcia MD PCP - GeneralFamily Medicine/ Erik Garcia MD [address] [place] [address] PCP - GeneralFamily Medicine08/21/24documented as of this encounter
--- OUTSIDE RECORDS SUMMARY | 2025-02-03 22:41 | XMS_ITS | Encounter Summary ---
Author Organization [facility] Address [address] [place] [address] Care Team Providers Care Plumbers And Top Helpers Name Role Phone Erik Garcia MD Primary Care Provider [phone] Erik Garcia MD Primary Care Provider [phone] Encounter Details DateTypeDepartmentCare Team (Latest Contact Info)Xomibjdmksn26/16/2024linisync Result Encounter [facility] External Department Unsolicited Ricardo Rodriguez DO [address] [place] [address] [place] [address] Social History Tobacco UseTypesPacks/DayYears UsedDateSmoking Tobacco: NeverAlcohol UseStandard Drinks/WeekCommentsYes0 (1 standard drink = 0.6 oz pure alcohol)caffeine: occasionalAUDIT-CAnswerDate RecordedQ1: How often do you have a drink containing alcohol?2-4 times a month01/28/2023Q2: How many drinks containing alcohol do you have on a typical day when you are drinking?1 or Q3: How often do you have six or more drinks on one occasion?Evlktd8001/28/2023CommentsYesSex and Gender InformationValueDate RecordedSex Assigned at HynqtCqcjas92/28/2023 10:50 AM EDTLegal TdiVwlgix93/15/2023 8:06 PM EDTGender VszhaouoHyyzwm91/28/2023 10:50 AM EDTSexual OdwswufarwnJxfxcmsb85/28/2023 10:50 AM EDTdocumented as of this encounter Plan of Treatment DateTypeDepartmentCare Team (Latest Contact Info)Oxfybqakvvq53/10/2025 3:00 PM ESTOffice Visit [facility] [place] [facility] [address] [facility] [address] Josi Prescott PA [address] [facility] [place] [address] documented as of this encounter Procedures Procedure NamePriorityDate/TimeAssociated DiagnosisCommentsUS OB BPP W NON-SBDHEI9007/12/2023 7:45 AM EDT documented in this encounter Results * US OB BPP W NON-STRESS (07/12/2023 7:45 AM EDT)Anatomical Region LateralityModalityOtherSpecimen (Source)Anatomical Location / Laterality Collection Method / VolumeCollection TimeReceived Time07/12/2023 7:45 AM EDT Narrative 07/12/2023 7:47 AM EDT [facility] ?[address] ? [place] [address] ? Ultrasound Report ? Signed ? Patient: DEARTH,KASANDRA D ?MR#: [id number] ?? : 1995 ?Acct:[id number] ?? Age/Sex: 27 / F ?ADM Date: 07/11/23 ?? Loc: US ? Attending Dr: Ricardo Rodriguez D.O. ? Ordering Physician: Ricardo Rodriguez D.O. ?? Date of Service: 07/11/23 ?? Procedure(s): US OB BPP w non-stress ?? Accession Number(s): [id number] ? cc: Ricardo Rodriguez D.O.; Erik Garcia M.D. ? [facility] ? [address] ? [place] [address] ? Patient Name: ?? KASANDRA Thompson SANCHEZ ? MRN: [id number] ? date: 1995 ?Sex: F ?? Assigned Patient Location: FBC ?? Current Patient Location: ? Accession/Order Number: [id number] ?? Exam Date: 07/11/2023 ??17:05 ?Report Date: [...] By: ?Dudley Hernández M.D. ? Signed By: ?07/12/23746 ? DD/ 0745 ? TD/TT: ? Card Cleaner: Procedure Note Radiology, Radiologist, - 07/12/2023 [place] [address] Ultrasound Report Signed Patient: KASANDRA MACIAS DMR#: [id number] : 1995Acct:[id number] Age/Sex: 27 FADM Date: 07/11/23 Loc: US Attending Dr: Ricardo Rodriguez D.O. Ordering Physician: Ricardo Rodriguez D.O. Date of Service: 07/11/23 Procedure(s): US OB BPP w non-stress Accession Number(s): [id number] cc: Ricardo Rodriguez D.O.; Erik Garcia M.D. The [place] [id number] Patient Name: KASANDRA MACIAS MRN: [id number] date: 1995 Sex: F Assigned Patient Location: [facility] Current Patient Location: Accession/Order Number: [id number] Exam Date: 07/11/2023 17:05 Report Date: 07/12/2023 [...] Dudley Hernández M.D. Signed By:07/12/2347 DD/ TD/TT: Card Cleaner: Authorizing ProviderResult TypeResult StatusCorey Jennifer DOCLINISYNC IMAGINGFinal Result documented in this encounter Visit Diagnoses Not on filedocumented in this encounter Care Teams Team MemberRelationshipSpecialtyStart DateEnd Date Erik Garcia MD PCP - GeneralFamily Medicine/ Erik Garcia MD [address] [place] [address] PCP - GeneralFamily Medicine08/21/24documented as of this encounter
--- OUTSIDE RECORDS SUMMARY | 2025-02-03 22:41 | XMS_ITS | Clinical Summary ---
Author Organization [facility] Address [address] [place] [address] Care Team Providers Care Rehabilitation Aide Name Role Phone Erik Garcia MD Primary Care Provider [phone] Allergies No known active allergies Medications No known medications Active Problems ProblemNoted DateDiagnosed Date32 weeks gestation of ([facility]) 06/30/2023Third trimester ([facility])06/13/20230387Abogcf82/29/2024 Einbjiobtkjs75/29/2024FI (amniotic fluid index) increased ([facility])05/26/2023 Encounters DateTypeDepartmentCare VtwzCjptmmmmzfz25/19/2025Telephone [facility] [place] [facility] [address] [place] [address] [place] [address] Alethea Reich MA from Last [...] 01/28/2023CommentsNoSex and Gender InformationValueDate RecordedSex Assigned at ZppvaHljyue85/28/2023 10:50 AM EDTLegal HclJoejcb43/15/2023 8:06 PM EDTGender LodlgzzbAzqdqb74/28/2023 10:50 AM EDTSexual OrientationStraight 11/22/2022 10:50 AM EDT Last Filed Vital Signs Vital SignReadingTime TakenCommentsBlood Ryhpdufl373/72009/24/2024 11:01 AM EDT Pulse--Temperature--Respiratory Rate--Oxygen Saturation--Inhaled Oxygen Concentration--Ehrepw40.5 kg (140 lb)09/24/2024 11:01 AM SLGZyyjpe763.9 cm (5' 1 )11/23/2022 10:37 AM EDTBody Mass Index26.45011/23/2022 10:37 AM EDT Plan of Treatment DateTypeDepartmentCare Team (Latest Contact Info)Zatateugmfg24/10/2025 3:00 PM ESTOffice Visit [facility] [place] [facility] [address] [address] Josi Prescott PA [address] [facility] [address] [facility] [address] [place], [place] [id number] Health MaintenanceDue DateLast DoneCommentsHPV/Spbdxa254COVID-19 Vaccine ( season)504/04/2020, 06/16/2020, 05/23/2020Influenza Vaccine (#1)510/, 12/30/2020, 12/26/2020, Additional history existsCervical Cancer Fyezxkgrm84/19/2026Pap Smear Pneumococcal Vaccine: Pediatrics (0 to 5 Years) and At-Risk Patients (6 to 64 Years)Aged OutNo longer eligible based on patient's age [...] Health Maintenance Insurance Care Teams Team MemberRelationshipSpecialtyStart Date Erik Garcia MD [address] [place] [address] PCP - GeneralFamily Medicine08/21/24
--- OUTSIDE RECORDS SUMMARY | 2025-02-03 22:41 | XMS_ITS | Encounter Summary ---
Author Organization [facility] Address [address] [place] [address] Care Team Providers Care Pattern Painter Name Role Phone Erik Garcia MD Primary Care Provider [phone] Erik Garcia MD Primary Care Provider [phone] Encounter Details DateTypeDepartmentCare Team (Latest Contact Info)Nsakcvzrqci02/29/2024linisync Result Encounter [facility] External Department Unsolicited Ricardo Leggett DO [address] [place] [address] [place] [address] Social History Tobacco UseTypesPacks/DayYears UsedDateSmoking Tobacco: NeverAlcohol UseStandard Drinks/WeekCommentsYes0 (1 standard drink = 0.6 oz pure alcohol)caffeine: occasionalAUDIT-CAnswerDate RecordedQ1: How often do you have a drink containing alcohol?2-4 times a month01/28/2023Q2: How many drinks containing alcohol do you have on a typical day when you are drinking?1 or Q3: How often do you have six or more drinks on one occasion?Ccqgvn8901/28/2023CommentsYesSex and Gender InformationValueDate RecordedSex Assigned at OnmizHffyrt71/28/2023 10:50 AM EDTLegal QonGlpxpm32/15/2023 8:06 PM EDTGender MfmwesmtYwgumu25/28/2023 10:50 AM EDTSexual UqrkhubtfvgBbkgujgv96/28/2023 10:50 AM EDTdocumented as of this encounter Plan of Treatment DateTypeDepartmentCare Team (Latest Contact Info)Rmlejhiexnr39/10/2025 3:00 PM ESTOffice Visit [facility] [place] [facility] [address] [facility] [place] [address] Josi Prescott PA [address] [facility] [place] [address] documented as of this encounter Procedures Procedure NamePriorityDate/TimeAssociated DiagnosisCommentsUS OB GROWTH 05/26/2023 9:49 AM EST documented in this encounter Results * US OB GROWTH (05/26/2023 9:49 AM EST)Anatomical RegionLateralityModalityOther Specimen (Source)Anatomical Location / LateralityCollection Method / Volume Collection TimeReceived Time05/26/2023 9:49 AM EST Narrative 05/26/2023 9:52 AM EST [facility] ?[address] ? [place] [address] ? Ultrasound Report ? Signed ? Patient: DEARTH,KASANDRA D ?MR#: [id number] ?? : 1995 ?Acct:[id number] ?? Age/Sex: 27 / F ?ADM Date: 05/26/23 ?? Loc: [facility] ? Attending Dr: Ricardo Leggett D.O. ? Ordering Physician: Ricardo Leggett D.O. ?? Date of Service: 05/26/23 ?? Procedure(s): US OB growth ?? Accession Number(s): [id number] ? cc: Ricardo Leggett D.O.; Erik Garcia M.D. ? [facility] ? [address] ? [place] [address] ? Patient Name: ?? KASANDRA COEBradly ? MRN: [id number] ? date: 1995 ?Sex: F ?? Assigned Patient Location: [facility] ?? Current Patient Location: [facility] ?? Accession/Order Number: [id number] ?? Exam Date: 05/26/2023 ??09:17 ?Report Date: 05/26/2023 ??09:49 ? At the request of: ?? RICARDO ??JENNIFER ? Procedure: ??US OB growth ? EXAMINATION: [...] By: ?Dudley Hernández M.D. ? Signed By: ?05/26/23 0952 ? DD/ ? TD/TT: ? Beauty Operator: Procedure Note Radiology, Radiologist, - 05/26/2023 [place] [address] Ultrasound Report Signed Patient: KASANDRA MACIAS DMR#: [id number] : 1995Acct:[id number] Age/Sex: 27 / FADM Date: 05/26/23 Loc: NOMS Attending Dr: Ricardo Leggett D.O. Ordering Physician: Ricardo Leggett D.O. Date of Service: 05/26/23 Procedure(s): OB growth Accession Number(s): [id number] cc: Ricardo Leggett D.O.; Erik Garcia M.D. The [address] [address] Patient Name: KASANDRA MACIAS MRN: [facility]:[id number] date: 1995 Sex: F Assigned Patient Location: [facility] Current Patient Location: [facility] Accession/Order Number: [id number] Exam Date: 05/26/2023 09:17 Report Date: 05/26/2023 09:49 At the request of: RICARDO LEGGETT Procedure: US OB growth EXAMINATION: US OB [...] Age by EDC: 27 weeks 6 days NITYHA by EDC: 08/19/2023 Age by US: 27 weeks 6 days NITHYA by US: 08/19/2023 US/US OB growth IMPRESSION: Borderline polyhydramnios Normal interval growth Electronically authenticated by: DUDLEY HERNÁNDEZ Date: 05/26/2023 09:49 Dictated By: Dudley Hernández M.D. Signed By:05/26/23951 DD/ 8 TD/TT: Beauty Operator: Authorizing ProviderResult TypeResult StatusCorey Jennifer DOCLINISYNC IMAGINGFinal Result documented in this encounter Visit Diagnoses Not on filedocumented in this encounter Care Teams Team MemberRelationshipSpecialtyStart DateEnd Date Erik Garcia MD PCP - GeneralFamily Medicine/ Erik Garcia MD [address] [place] [address] PCP - GeneralFamily Medicine08/21/24documented as of this encounter
--- OUTSIDE RECORDS SUMMARY | 2025-02-03 22:41 | XMS_ITS | Encounter Summary ---
Author Organization [facility] Address [address] [place] [address] Care Team Providers Care Digital Marketing Specialist Name Role Phone Erik Garcia MD Primary Care Provider [phone] Erik Garcia MD Primary Care Provider [phone] Encounter Details DateTypeDepartmentCare Team (Latest Contact Info)Vunrhdicevs54/02/2024linisync Result Encounter [facility] External Department Unsolicited Ricardo Rodriguez DO [address] [place] [address] [place] [address] Social History Tobacco UseTypesPacks/DayYears UsedDateSmoking Tobacco: NeverAlcohol UseStandard Drinks/WeekCommentsYes0 (1 standard drink = 0.6 oz pure alcohol)caffeine: occasionalAUDIT-CAnswerDate RecordedQ1: How often do you have a drink containing alcohol?2-4 times a month01/28/2023Q2: How many drinks containing alcohol do you have on a typical day when you are drinking?1 or Q3: How often do you have six or more drinks on one occasion?Ynpomz4301/28/2023CommentsYesSex and Gender InformationValueDate RecordedSex Assigned at XolveGxngbe72/28/2023 10:50 AM EDTLegal PrxFiclzb48/15/2023 8:06 PM EDTGender BzpvkpzgPvgyhi30/28/2023 10:50 AM EDTSexual KfqmvuuvqocDtkdmnjo75/28/2023 10:50 AM EDTdocumented as of this encounter Plan of Treatment DateTypeDepartmentCare Team (Latest Contact Info)Ghfylqonqhd89/10/2025 3:00 PM ESTOffice Visit [facility] [place] [facility] [address] [facility] [place] [address] Josi Prescott PA [address] [facility] [place] [address] documented as of this encounter Procedures Procedure NamePriorityDate/TimeAssociated DiagnosisCommentsUS OB BPP W NON-KTXNTG9106/28/2023 7:15 AM EDT documented in this encounter Results * US OB BPP W NON-STRESS (06/28/2023 7:15 AM EDT)Anatomical Region LateralityModalityOtherSpecimen (Source)Anatomical Location / Laterality Collection Method / VolumeCollection TimeReceived Time06/28/2023 7:15 AM EDT Narrative 06/28/2023 7:17 AM EDT The [facility] ?[address] ? [place] [address] ? Ultrasound Report ? Signed ? Patient: DEARTH,KASANDRA D ?MR#: [id number] ?? : 1995 ?Acct:[id number] ?? Age/Sex: 27 / F ?ADM Date: 06/27/23 ?? Loc: US ? Attending Dr: Ricardo Rodriguez D.O. ? Ordering Physician: Ricardo Rodriguez D.O. ?? Date of Service: 06/27/23 ?? Procedure(s): US OB BPP w non-stress ?? Accession Number(s): [id number] ? cc: Ricardo Rodriguez D.O.; Erik Garcia M.D. ? [facility] ? [address] ? [place] [address] ? Patient Name: ?? KASANDRA Thompson SANCHEZ ? MRN: [id number] ? date: 1995 ?Sex: F ?? Assigned Patient Location: US ?? Current Patient Location: ? Accession/Order Number: [id number] ?? Exam Date: 06/27/2023 ??17:04 ?Report Date: [...] ?? Date: 06/28/2023 ??07:15 ? Dictated By: ?Lma Vela M.D. ? Signed By: ?06/28/23716 ? DD/ 0715 ? TD/TT: ? Diplomatic Courier: Procedure Note Radiology, Radiologist, MD - 06/30/2023 [place] [address] Ultrasound Report Signed Patient: KASANDRA MACIAS DMR#: [id number] : 1995Acct:[id number] Age/Sex: Date: 06/27/23 Loc: US Attending Dr: Ricardo Rodriguez D.O. Ordering Physician: Ricardo Rodriguez D.O. Date of Service: 06/27/23 Procedure(s): US OB BPP w non-stress Accession Number(s): [id number] cc: Ricardo Rodriguez D.O.; Erik Garcia M.D. The [place] [id number] Patient Name: KASANDRA MACIAS MRN: [id number] date: 1995 Sex: F Assigned Patient Location: US Current Patient Location: Accession/Order Number: [id number] Exam Date: 06/27/2023 17:04 Report Date: 06/28/2023 [...] Vela M.D. Signed By:06/28/23716 DD/ 4 TD/TT: Diplomatic Courier: Authorizing ProviderResult TypeResult StatusCorey Jennifer DOCLINISYNC IMAGINGFinal Result documented in this encounter Visit Diagnoses Not on filedocumented in this encounter Care Teams Team MemberRelationshipSpecialtyStart DateEnd Date Erik Garcia MD PCP - GeneralFamily Medicine Erik Garcia MD [address] [place] [address] PCP - GeneralFamily Medicine08/21/24documented as of this encounter
--- OUTSIDE RECORDS SUMMARY | 2025-02-03 22:41 | XMS_ITS | Encounter Summary ---
Author Organization [facility] Address [address] [place] [address] Care Team Providers Care Guidance And Control System Engineer Name Role Phone Erik Garcia MD Primary Care Provider [phone] Erik Garcia MD Primary Care Provider [phone] Encounter Details DateTypeDepartmentCare Team (Latest Contact Info)Fttzttvjkdp46/01/2025linisync Result Encounter [facility] External Department Unsolicited Ricardo Rodriguez DO [address] [place] [address] [place] [address] Social History Tobacco UseTypesPacks/DayYears UsedDateSmoking Tobacco: NeverAlcohol UseStandard Drinks/WeekCommentsYes0 (1 standard drink = 0.6 oz pure alcohol)caffeine: occasionalAUDIT-CAnswerDate RecordedQ1: How often do you have a drink containing alcohol?2-4 times a month01/28/2023Q2: How many drinks containing alcohol do you have on a typical day when you are drinking?1 or Q3: How often do you have six or more drinks on one occasion?Xylllg8301/28/2023CommentsUnknown Sex and Gender InformationValueDate RecordedSex Assigned at BirthFemale 11/22/2022 10:50 AM EDTLegal PxvDyuvrj96/15/2023 8:06 PM EDTGender Identity Bampgt0611/22/2022 10:50 AM EDTSexual GezcozhgavuDsylvvhy78/28/2023 10:50 AM EDT documented as of this encounter Plan of Treatment DateTypeDepartmentCare Team (Latest Contact Info)Ppwwfauwrkq14/10/2025 3:00 PM ESTOffice Visit [facility] [place] [facility] [address] [address] Josi Prescott PA [address] [place] [address] documented as of this encounter Procedures Procedure NamePriorityDate/TimeAssociated DiagnosisCommentsUS PELVIS W/ KFRBHBDEYNSF73/01/2025 3:32 AM EST documented in this encounter Results * US PELVIS W/ TRANSVAGINAL (03/28/2024 3:32 AM EST)Anatomical RegionLaterality ModalityOtherSpecimen (Source)Anatomical Location / LateralityCollection Method / VolumeCollection TimeReceived Time03/28/2024 3:32 AM EST Narrative 03/28/2024 3:35 AM EST [facility] ?[address] ? [place] [address] ? Ultrasound Report ? Signed ? Patient: DEARTH,KASANDRA D ?MR#: [id number] ?? : 1995 ?Acct:[id number] ?? Age/Sex: 28 / F ?ADM Date: 03/27/24 ?? Loc: US ? Attending Dr: Ricardo Rodriguez D.O. ? Ordering Physician: Ricardo Rodriguez D.O. ?? Date of Service: 03/27/24 ?? Procedure(s): US pelvis w/ transvaginal ?? Accession Number(s): [id number] ? cc: Ricardo Rodriguez D.O.; Erik Garcia M.D. ? [facility] ? [address] ? [place] [address] ? Patient Name: ?? KASANDRA MACIAS ? MRN: [id number] ? date: 1995 ?Sex: F ?? Assigned Patient Location: US ?? Current Patient Location: ? Accession/Order Number: [id number] ?? Exam Date: 03/27/2024 ??14:05 ?Report Date: 03/28/2024 ??03:32 ? At the request of: ?? RICARDO ??OLEKSANDR ? Procedure: ??US pelvis w/ transvaginal ? [...] By: ?Lam Vela M.D. ? Signed By: ?03/28/24 0335 ? DD/ 0332 ? TD/TT: ? Boiling House Oiler: Procedure Note Radiology, Radiologist, - 03/28/2024 [place] [address] Ultrasound Report Signed Patient: KASANDRA MACIAS DMR#: [id number] : 1995Acct:[id number] Age/Sex: 28 / FADM Date: 03/27/24 Loc: US Attending Dr: Ricardo Rodriguez D.O. Ordering Physician: Ricardo Rodriguez D.O. Date of Service: 03/27/24 Procedure(s): US pelvis w/ transvaginal Accession Number(s): [id number] cc: Ricardo Rodriguez D.O.; Erik Garcia M.D. The [address] [address] Patient Name: KASANDRA MACIAS MRN: [id number] date: 1995 Sex: F Assigned Patient Location: Current Patient Location: Accession/Order Number: [id number] Exam Date: 03/27/2024 14:05 Report Date: 03/28/2024 [...] 03:32 Dictated By: Lam Vela M.D. Signed By:03/28/24334 DD/ 1 TD/TT: Boiling House Oiler: Authorizing ProviderResult TypeResult StatusCoreoumou Rodriguez DOCLINISYNC IMAGINGFinal Result documented in this encounter Visit Diagnoses Not on filedocumented in this encounter Care Teams Team MemberRelationshipSpecialtyStart DateEnd Date Erik Garcia MD PCP - GeneralFamily Medicine/ Erik Garcia MD [address] [place] [address] PCP - GeneralFamily Medicine08/21/24documented as of this encounter
--- OUTSIDE RECORDS SUMMARY | 2025-02-03 22:41 | XMS_ITS | Encounter Summary ---
Author Organization [facility] Address [address] [place] [address] Care Team Providers Care Chassis Wirer Name Role Phone Erik Garcia MD Primary Care Provider [phone] Erik Garcia MD Primary Care Provider [phone] Encounter Details DateTypeDepartmentCare Team (Latest Contact Info)Jxvgauzfflg76/07/2024linisync Result Encounter [facility] External Department Unsolicited Ricardo Rodriguez DO [address] [place] [address] [place] [address] Social History Tobacco UseTypesPacks/DayYears UsedDateSmoking Tobacco: NeverAlcohol UseStandard Drinks/WeekCommentsYes0 (1 standard drink = 0.6 oz pure alcohol)caffeine: occasionalAUDIT-CAnswerDate RecordedQ1: How often do you have a drink containing alcohol?2-4 times a month01/28/2023Q2: How many drinks containing alcohol do you have on a typical day when you are drinking?1 or Q3: How often do you have six or more drinks on one occasion?Rujkvy3701/28/2023CommentsYesSex and Gender InformationValueDate RecordedSex Assigned at KrnqrUwglfp98/28/2023 10:50 AM EDTLegal DpyXtkfea89/15/2023 8:06 PM EDTGender PuwmlfvbMtrcku07/28/2023 10:50 AM EDTSexual QbhhqkynsxePmvpwlnk58/28/2023 10:50 AM EDTdocumented as of this encounter Plan of Treatment DateTypeDepartmentCare Team (Latest Contact Info)Baoregchrnk95/10/2025 3:00 PM ESTOffice Visit [facility] [place] [facility] [address] [place] [address] Josi Prescott PA [address] [facility] [place] [address] documented as of this encounter Procedures Procedure NamePriorityDate/TimeAssociated DiagnosisCommentsUS OB BPP W NON-EVDFSX2908/02/2023 8:22 AM EDT documented in this encounter Results * US OB BPP W NON-STRESS (08/02/2023 8:22 AM EDT)Anatomical Region LateralityModalityOtherSpecimen (Source)Anatomical Location / Laterality Collection Method / VolumeCollection TimeReceived Time08/02/2023 8:22 AM EDT Narrative 08/02/2023 8:24 AM EDT [facility] ?[address] ? [place] [address] ? Ultrasound Report ? Signed ? Patient: DEARTH,KASANDRA D ?MR#: [id number] ?? : 1995 ?Acct:[id number] ?? Age/Sex: 27 / F ?ADM Date: 08/01/23 ?? Loc: US ? Attending Dr: Ricardo Rodriguez D.O. ? Ordering Physician: Ricardo Rodriguez D.O. ?? Date of Service: 08/01/23 ?? Procedure(s): US OB BPP w non-stress ?? Accession Number(s): [id number] ? cc: Ricardo Rodriguez D.O.; Erik Garcia M.D. ? [facility] ? [address] ? [place] [address] ? Patient Name: ?? KASANDRA MACIAS ? MRN: [id number] ? date: 1995 ?Sex: F ?? Assigned Patient Location: US ?? Current Patient Location: US ?? Accession/Order Number: [id number] ?? Exam Date: 08/01/2023 ??21:30 ?Report Date: [...] ?08/02/23823 ? DD/ 0822 ? TD/TT: ? Prescription Clerk Lenses: Procedure Note Radiology, Radiologist, - 08/02/2023 [place] [address] Ultrasound Report Signed Patient: KASANDRA MACIAS DMR#: [id number] : 1995Acct:[id number] Age/Sex: 27 FADM Date: 08/01/23 Loc: US Attending Dr: Ricardo Rodriguez D.O. Ordering Physician: Ricardo Rodriguez D.O. Date of Service: 08/01/23 Procedure(s): US OB BPP w non-stress Accession Number(s): [id number] cc: Ricardo Rodriguez D.O.; Erik Garcia M.D. The [place] [id number] Patient Name: KASANDRA MACIAS MRN: [id number] date: 1995 Sex: F Assigned Patient Location: US Current Patient Location: US Accession/Order Number: [id number] Exam Date: 08/01/2023 21:30 Report Date: 08/02/2023 [...] Vela M.D. Signed By:08/02/23823 DD/ 1 TD/TT: Prescription Clerk Lenses: Authorizing ProviderResult TypeResult StatusCorey Jennifer DOCLINISYNC IMAGINGFinal Result documented in this encounter Visit Diagnoses Not on filedocumented in this encounter Care Teams Team MemberRelationshipSpecialtyStart DateEnd Date Erik Garcia MD PCP - GeneralFamily Medicine Erik Garcia MD [address] [place] [address] PCP - GeneralFamily Medicine08/21/24documented as of this encounter
--- OUTSIDE RECORDS SUMMARY | 2025-02-03 22:41 | XMS_ITS | Encounter Summary ---
Author Organization [facility] Address [address] [place] [address] Care Team Providers Care Lead Electrical Engineer Name Role Phone Erik Garcia MD Primary Care Provider [phone] Erik Garcia MD Primary Care Provider [phone] Encounter Details DateTypeDepartmentCare Team (Latest Contact Info)Aqrzysukkdc46/14/2024linisync Result Encounter [facility] External Department Unsolicited Ricardo Rodriguez DO [address] [place] [address] [place] [address] Social History Tobacco UseTypesPacks/DayYears UsedDateSmoking Tobacco: NeverAlcohol UseStandard Drinks/WeekCommentsYes0 (1 standard drink = 0.6 oz pure alcohol)caffeine: occasionalAUDIT-CAnswerDate RecordedQ1: How often do you have a drink containing alcohol?2-4 times a month01/28/2023Q2: How many drinks containing alcohol do you have on a typical day when you are drinking?1 or Q3: How often do you have six or more drinks on one occasion?Gptite2001/28/2023CommentsYesSex and Gender InformationValueDate RecordedSex Assigned at IegyhXfwwtx40/28/2023 10:50 AM EDTLegal BabBxuqbz63/15/2023 8:06 PM EDTGender KnvxrznuJumeog53/28/2023 10:50 AM EDTSexual LhjzfeeikwjXrptrrdv70/28/2023 10:50 AM EDTdocumented as of this encounter Plan of Treatment DateTypeDepartmentCare Team (Latest Contact Info)Ylyeqwirliq34/10/2025 3:00 PM ESTOffice Visit [facility] [place] [facility] [address] [facility] [place] [address] Josi Prescott PA [address] [facility] [place] [address] documented as of this encounter Procedures Procedure NamePriorityDate/TimeAssociated DiagnosisCommentsUS OB BPP W NON-GYNYYE9508/09/2023 7:28 AM EDT documented in this encounter Results * US OB BPP W NON-STRESS (08/09/2023 7:28 AM EDT)Anatomical Region LateralityModalityOtherSpecimen (Source)Anatomical Location / Laterality Collection Method / VolumeCollection TimeReceived Time08/09/2023 7:28 AM EDT Narrative 08/09/2023 7:30 AM EDT [facility] ?[address] ? [place] [address] ? Ultrasound Report ? Signed ? Patient: DEARTH,KASANDRA D ?MR#: [id number] ?? : 1995 ?Acct:[id number] ?? Age/Sex: 27 / F ?ADM Date: 08/08/23 ?? Loc: US ? Attending Dr: Ricardo Rodriguez D.O. ? Ordering Physician: Ricardo Rodriguez D.O. ?? Date of Service: 08/08/23 ?? Procedure(s): US OB BPP w non-stress ?? Accession Number(s): [id number] ? cc: Ricardo Rodriguez D.O.; Erik Garcia M.D. ? [facility] ? [address] ? [place] [address] ? Patient Name: ?? KASANDRA LINDSAYBradly ? MRN: [id number] ? date: 1995 ?Sex: F ?? Assigned Patient Location: US ?? Current Patient Location: ? Accession/Order Number: [id number] ?? Exam Date: 08/08/2023 ??18:00 ?Report Date: [...] By: ?Lam Vela M.D. ? Signed By: ?08/09/23729 ? DD/ 0728 ? TD/TT: ? Department Sales Manager: Procedure Note Radiology, Radiologist, - 08/09/2023 [place] [address] Ultrasound Report Signed Patient: KASANDRA MACIAS DMR#: [id number] : 1995Acct:[id number] Age/Sex: 27 / FADM Date: 08/08/23 Loc: US Attending Dr: Ricardo Rodriguez D.O. Ordering Physician: Ricardo Rodriguez D.O. Date of Service: 08/08/23 Procedure(s): US OB BPP w non-stress Accession Number(s): [id number] cc: Ricardo Rodriguez D.O.; Erik Garcia M.D. The [place] [id number] Patient Name: KASANDRA MACIAS MRN: [id number] date: 1995 Sex: F Assigned Patient Location: US Current Patient Location: Accession/Order Number: [id number] Exam Date: 08/08/2023 18:00 Report Date: 08/09/2023 [...] Vela M.D. Signed By:08/09/23729 DD/ 7 TD/TT: Department Sales Manager: Authorizing ProviderResult TypeResult StatusCorey Jennifer DOCLINISYNC IMAGINGFinal Result documented in this encounter Visit Diagnoses Not on filedocumented in this encounter Care Teams Team MemberRelationshipSpecialtyStart DateEnd Date Erik Garcia MD PCP - GeneralFamily Medicine11/23// Erik Garcia MD [address] [place] [address] PCP - GeneralFamily Medicine08/21/24documented as of this encounter
--- OUTSIDE RECORDS SUMMARY | 2025-02-03 22:41 | XMS_ITS | Encounter Summary ---
Author Organization [facility] Address [address] [place] [address] Care Team Providers Care Truck Driver Teamster Name Role Phone Erik Garcia MD Primary Care Provider [phone] Erik Garcia MD Primary Care Provider [phone] Encounter Details DateTypeDepartmentCare Team (Latest Contact Info)Kiexvdbsvnn70/23/2024linisync Result Encounter [facility] External Department Unsolicited Ricardo Rodriguez DO [address] [place] [address] [place] [address] Social History Tobacco UseTypesPacks/DayYears UsedDateSmoking Tobacco: NeverAlcohol UseStandard Drinks/WeekCommentsYes0 (1 standard drink = 0.6 oz pure alcohol)caffeine: occasionalAUDIT-CAnswerDate RecordedQ1: How often do you have a drink containing alcohol?2-4 times a month01/28/2023Q2: How many drinks containing alcohol do you have on a typical day when you are drinking?1 or Q3: How often do you have six or more drinks on one occasion?Jpzjsi0301/28/2023CommentsYesSex and Gender InformationValueDate RecordedSex Assigned at YtqoaGewenl37/28/2023 10:50 AM EDTLegal PawGtrlsk11/15/2023 8:06 PM EDTGender MlwaglkhIrzufb48/28/2023 10:50 AM EDTSexual IgmmgvjowpqBoappmys14/28/2023 10:50 AM EDTdocumented as of this encounter Plan of Treatment DateTypeDepartmentCare Team (Latest Contact Info)Otlandbkxny21/10/2025 3:00 PM ESTOffice Visit [facility] [place] [facility] [address] [place] [address] Josi Prescott PA [address] [facility] [place] [address] documented as of this encounter Procedures Procedure NamePriorityDate/TimeAssociated DiagnosisCommentsUS OB BPP W NON-PZVLQE1007/19/2023 7:15 AM EDT documented in this encounter Results * US OB BPP W NON-STRESS (07/19/2023 7:15 AM EDT)Anatomical Region LateralityModalityOtherSpecimen (Source)Anatomical Location / Laterality Collection Method / VolumeCollection TimeReceived Time07/19/2023 7:15 AM EDT Narrative 07/19/2023 7:17 AM EDT [facility] ?[address] ? [place] [address] ? Ultrasound Report ? Signed ? Patient: DEARTH,KASANDRA D ?MR#: [id number] ?? : 1995 ?Acct:[id number] ?? Age/Sex: 27 / F ?ADM Date: 07/18/23 ?? Loc: US ? Attending Dr: Ricardo Rodriguez D.O. ? Ordering Physician: Ricardo Rodriguez D.O. ?? Date of Service: 07/18/23 ?? Procedure(s): US OB BPP w non-stress ?? Accession Number(s): [id number] ? cc: Ricardo Rodriguez D.O.; Erik Garcia M.D. ? [facility] ? [address] ? [place] [address] ? Patient Name: ?? KASANDRA Thompson SANCHEZ ? MRN: [id number] ? date: 1995 ?Sex: F ?? Assigned Patient Location: [facility] ?? Current Patient Location: ? Accession/Order Number: [id number] ?? Exam Date: 07/18/2023 ??17:12 ?Report Date: [...] ?Dudley Hernández M.D. ? Signed By: ?07/19/23 07 ? DD/ 0715 ? TD/TT: ? Truck Car And Bus Cleaner: Procedure Note Radiology, Radiologist, - 07/19/2023 [place] [address] Ultrasound Report Signed Patient: KASANDRA MACIAS DMR#: [id number] : 1995Acct:[id number] Age/Sex: 27 / FADM Date: 07/18/23 Loc: US Attending Dr: Ricardo Rodriguez D.O. Ordering Physician: Ricardo Rodriguez D.O. Date of Service: 07/18/23 Procedure(s): US OB BPP w non-stress Accession Number(s): [id number] cc: Ricardo Rodriguez D.O.; Erik Garcia M.D. The [place] [id number] Patient Name: KASANDRA MACIAS MRN: [id number] date: 1995 Sex: F Assigned Patient Location: [facility] Current Patient Location: Accession/Order Number: [id number] Exam Date: 07/18/2023 17:12 Report Date: 07/19/2023 [...] Hernández M.D. Signed By:07/19/23716 DD/ 4 TD/TT: Truck Car And Bus Cleaner: Authorizing ProviderResult TypeResult StatusCorey Jennifer DOCLINISYNC IMAGINGFinal Result documented in this encounter Visit Diagnoses Not on filedocumented in this encounter Care Teams Team MemberRelationshipSpecialtyStart DateEnd Date Erik Garcia MD PCP - GeneralFamily Medicine Erik Garcia MD [address] [place] [address] PCP - GeneralFamily Medicine08/21/24documented as of this encounter
--- OUTSIDE RECORDS SUMMARY | 2025-02-03 22:41 | XMS_ITS | Encounter Summary ---
Author Organization [facility] Address [address] [place] [address] Care Team Providers Care Payroll And Benefits Assistant Name Role Phone Erik Garcia MD Primary Care Provider [phone] Erik Garcia MD Primary Care Provider [phone] Encounter Details DateTypeDepartmentCare Team (Latest Contact Info)Gmmwzkbmjhc80/14/2024linisync Result Encounter [facility] External Department Unsolicited Ricardo Rodriguez DO [address] [place] [address] [place] [address] Social History Tobacco UseTypesPacks/DayYears UsedDateSmoking Tobacco: NeverAlcohol UseStandard Drinks/WeekCommentsYes0 (1 standard drink = 0.6 oz pure alcohol)caffeine: occasionalAUDIT-CAnswerDate RecordedQ1: How often do you have a drink containing alcohol?2-4 times a month01/28/2023Q2: How many drinks containing alcohol do you have on a typical day when you are drinking?1 or Q3: How often do you have six or more drinks on one occasion?Ayjzco8801/28/2023CommentsYesSex and Gender InformationValueDate RecordedSex Assigned at SkiziSjgrda32/28/2023 10:50 AM EDTLegal EzjWqfrwm16/15/2023 8:06 PM EDTGender VfxwrsubNdreop31/28/2023 10:50 AM EDTSexual CvtefnysejfExxvaqhu94/28/2023 10:50 AM EDTdocumented as of this encounter Plan of Treatment DateTypeDepartmentCare Team (Latest Contact Info)Zmemddswval73/10/2025 3:00 PM ESTOffice Visit [facility] [place] [facility] [address] [place] [address] Josi Prescott PA [address] [facility] [place] [address] documented as of this encounter Procedures Procedure NamePriorityDate/TimeAssociated DiagnosisCommentsUS AMNIOTIC FLUID KXXSMT0306/09/2023 3:45 PM EDT documented in this encounter Results * US AMNIOTIC FLUID VOLUME (06/09/2023 3:45 PM EDT)Anatomical RegionLaterality ModalityRadiographic ImagingSpecimen (Source)Anatomical Location / Laterality Collection Method / VolumeCollection TimeReceived Time06/09/2023 3:45 PM EDT Narrative 06/09/2023 3:47 PM EDT [facility] ?[address] ? [place] [address] ? Ultrasound Report ? Signed ? Patient: DEARTH,KASANDRA D ?MR#: [id number] ?? : 1995 ?Acct:[id number] ?? Age/Sex: 27 / F ?ADM Date: 06/09/23 ?? Loc: US ? Attending Dr: Ricardo Rodriguez D.O. ? Ordering Physician: Ricardo Rodriguez D.O. ?? Date of Service: 06/09/23 ?? Procedure(s): US OB amniotic fluid vol ?? Accession Number(s): [id number] ? cc: Ricardo Rodriguez D.O.; Erik Garcia M.D. ? [facility] ? [address] ? [place] [address] ? Patient Name: ?? KASANDRA Donna MACIAS ? MRN: [id number] ? date: 1995 ?Sex: F ?? Assigned Patient Location: US ?? Current Patient Location: LAB ?? Accession/Order Number: [id number] ?? Exam Date: 06/09/2023 ??15:05 ?Report Date: [...] M.D. ? Signed By: ?06/09/231546 ? DD/ 1545 ? TD/TT: ? Science Interpreter: Procedure Note Radiology, Radiologist, - 06/09/2023 [place] [address] Ultrasound Report Signed Patient: KASANDRA MACIAS DMR#: [id number] : 1995Acct:[id number] Age/Sex: M Date: 06/09/23 Loc: US Attending Dr: Ricardo Rodriguez D.O. Ordering Physician: Ricardo Rodriguez D.O. Date of Service: 06/09/23 Procedure(s): US OB amniotic fluid vol Accession Number(s): [id number] cc: Ricardo Rodriguez D.O.; Erik Garcia M.D. The [place] [id number] Patient Name: KASANDRA MACIAS MRN: [id number] date: 1995 Sex: F Assigned Patient Location: US Current Patient Location: LAB Accession/Order Number: [id number] Exam Date: 06/09/2023 15:05 Report Date: 06/09/2023 [...] Lam Vela M.D. Signed By:06/09/23 1547 DD/ 154 TD/TT: Science Interpreter: Authorizing ProviderResult TypeResult StatusCorey Jennifer DOIMG XR PROCEDURESFinal Result documented in this encounter Visit Diagnoses Not on filedocumented in this encounter Care Teams Team MemberRelationshipSpecialtyStart DateEnd Date Erik Garcia MD PCP - GeneralFamily Medicine/ Erik Garcia MD [address] [place] [address] [phone] PCP - GeneralFamily Medicine08/21/24documented as of this encounter
[2025-02-03 22:42] LABS: Alanine Aminotransferase 32 U/L (14-59); Albumin Globulin Ratio 1.3; Albumin Level 3.8 g/dL (3.4-5.0); Alkaline Phosphatase 51 U/L (46-116); Anion Gap 11.6; Aspartate Amino Transferase 16 U/L (15-37); Blood Urea Nitrogen 19.0 mg/dL (7.0-18.0); Calcium 8.9 mg/dL (8.5-10.1); Carbon Dioxide 29.4 mmol/L (21.0-32.0); Chloride 104 mmol/L (98-107); Estimated GFR (African America >60 (>=60 mL/min/1.73m^2); Estimated GFR (Non-African Ame >60 (>=60 mL/min/1.73m^2); Globulin 2.9 g/dL; Glucose 111 mg/dL (74-106); Lipase 26.0 U/L (16.0-77.0); Potassium 4.0 mmol/L (3.5-5.1); Sodium 141 mmol/L (136-145); Total Protein 6.7 g/dL (6.4-8.2)
--- OUTSIDE RECORDS SUMMARY | 2025-02-03 22:42 | XMS_ITS | Encounter Summary ---
Author Organization [facility] Address [address] [place] [address] Care Team Providers Care Associate Accountant Name Role Phone Erik Garcia MD Primary Care Provider [phone] Erik Garcia MD Primary Care Provider [phone] Encounter Details DateTypeDepartmentCare Team (Latest Contact Info)Voouafnarlf62/05/2024linisync Result Encounter [facility] External Department Unsolicited Ricardo Rodriguez DO [address] [place] [address] [place] [address] Social History Tobacco UseTypesPacks/DayYears UsedDateSmoking Tobacco: NeverAlcohol UseStandard Drinks/WeekCommentsYes0 (1 standard drink = 0.6 oz pure alcohol)caffeine: occasionalAUDIT-CAnswerDate RecordedQ1: How often do you have a drink containing alcohol?2-4 times a month01/28/2023Q2: How many drinks containing alcohol do you have on a typical day when you are drinking?1 or Q3: How often do you have six or more drinks on one occasion?Kbclma4201/28/2023CommentsYesSex and Gender InformationValueDate RecordedSex Assigned at HevnpJncddi91/28/2023 10:50 AM EDTLegal JygJfhjol61/15/2023 8:06 PM EDTGender QvxqryecKtycip68/28/2023 10:50 AM EDTSexual YwascmntcoyBuvvgwnw49/28/2023 10:50 AM EDTdocumented as of this encounter Plan of Treatment DateTypeDepartmentCare Team (Latest Contact Info)Hugtjoghstb71/10/2025 3:00 PM ESTOffice Visit [facility] [place] [facility] [address] [place] [address] Josi Prescott PA [address] [place] [address] documented as of this encounter Procedures Procedure NamePriorityDate/TimeAssociated DiagnosisCommentsUS OB ANATOMY 04/01/2023 7:16 AM EST documented in this encounter Results * US OB ANATOMY (04/01/2023 7:16 AM EST)Anatomical RegionLateralityModalityOther Specimen (Source)Anatomical Location / LateralityCollection Method / Volume Collection TimeReceived Time04/01/2023 7:16 AM EST Narrative 04/01/2023 7:19 AM EST [facility] ?[address] ? [place] [address] ? Ultrasound Report ? Signed ? Patient: DEARTH,KASANDRA D ?MR#: [id number] ?? : 1995 ?Acct:[id number] ?? Age/Sex: 27 / F ?ADM Date: 03/31/23 ?? Loc: US ? Attending Dr: Ricardo Rodriguez D.O. ? Ordering Physician: Ricardo Rodriguez D.O. ?? Date of Service: 03/31/23 ?? Procedure(s): US OB anatomy ?? Accession Number(s): [id number] ? cc: Ricardo Rodriguez D.O.; Erik Garcia M.D. ? [facility] ? [address] [facility] ? [place] [address] ? Patient Name: ?? KASANDRA MACIAS ? MRN: [id number] ? date: 1995 ?Sex: F ?? Assigned Patient Location: ?? Current Patient Location: ? Accession/Order Number: [id number] ?? Exam Date: 03/31/2023 ??19:37 ?Report Date: [...] ?04/01/23718 ? DD/ 5 ? TD/TT: ? [address] Magistrate: Procedure Note Radiology, Radiologist, MD - 04/01/[address] [address] Ultrasound Report Signed Patient: KASANDRA MACIAS [facility]#: [id number] : 1995Acct:[id number] Age/Sex: 27 / FADM Date: 03/31/23 Loc: US Attending Dr: Ricardo Rodriguez D.O. Ordering Physician: Ricardo Rodriguez D.O. Date of Service: 03/31/23 Procedure(s): US OB anatomy Accession Number(s): [id number] cc: Ricardo Rodriguez D.O.; Erki Garcia M.D. [place] [address] Patient Name: KASANDRA MACIAS MRN: [facility]:[id number] date: 1995 Sex: F Assigned Patient Location: US Current Patient Location: Accession/Order Number: [id number] Exam Date: 03/31/2023 19:37 Report Date: 04/01/2023 [...] Hernández M.D. Signed By:04/01/23718 DD/ 5 TD/TT: Children'[address] Court Magistrate: Authorizing ProviderResult TypeResult StatusCorey Jennifer DOCLINISYNC IMAGINGFinal Result documented in this encounter Visit Diagnoses Not on filedocumented in this encounter Care Teams Team MemberRelationshipSpecialtyStart DateEnd Date Erik Garcia MD PCP - GeneralFamily Medicine/ Erik Garcia MD [address] [place] [address] PCP - GeneralFamily Medicine08/21/24documented as of this encounter
--- OUTSIDE RECORDS SUMMARY | 2025-02-03 22:42 | XMS_ITS | Encounter Summary ---
Author Organization [facility] Address [address] [place] [address] Care Team Providers Care Supervisor Sawmill Name Role Phone Erik Garcia MD Primary Care Provider [phone] Erik Garcia MD Primary Care Provider [phone] Encounter Details DateTypeDepartmentCare Team (Latest Contact Info)Utgijvpjuix67/05/2024linisync Result Encounter [facility] External Department Unsolicited Ricardo Rodriguez DO [address] [place] [address] [place] [address] Social History Tobacco UseTypesPacks/DayYears UsedDateSmoking Tobacco: NeverAlcohol UseStandard Drinks/WeekCommentsYes0 (1 standard drink = 0.6 oz pure alcohol)caffeine: occasionalAUDIT-CAnswerDate RecordedQ1: How often do you have a drink containing alcohol?2-4 times a month01/28/2023Q2: How many drinks containing alcohol do you have on a typical day when you are drinking?1 or Q3: How often do you have six or more drinks on one occasion?Qdkrqc1301/28/2023CommentsYesSex and Gender InformationValueDate RecordedSex Assigned at XusprOrglsq85/28/2023 10:50 AM EDTLegal TtqDmqhoe26/15/2023 8:06 PM EDTGender AnjqzqxiForxio32/28/2023 10:50 AM EDTSexual OyvhmxmjykdJxlxabrp87/28/2023 10:50 AM EDTdocumented as of this encounter Plan of Treatment DateTypeDepartmentCare Team (Latest Contact Info)Iudlsdvjbyd99/10/2025 3:00 PM ESTOffice Visit [facility] [place] [facility] [address] [place] [address] Josi Prescott PA [address] [place] [address] documented as of this encounter Procedures Procedure NamePriorityDate/TimeAssociated DiagnosisCommentsUS OB TRANSVAGINAL 04/01/2023 7:16 AM EST documented in this encounter Results * US OB TRANSVAGINAL (04/01/2023 7:16 AM EST)Anatomical RegionLateralityModality OtherSpecimen (Source)Anatomical Location / LateralityCollection Method / VolumeCollection TimeReceived Time04/01/2023 7:16 AM EST Narrative 04/01/2023 7:19 AM EST The [facility] ?[address] ? [place] [address] ? Ultrasound Report ? Signed ? Patient: DEARTH,KASANDRA D ?MR#: [id number] ?? : 1995 ?Acct:[id number] ?? Age/Sex: 27 / F ?ADM Date: 03/31/23 ?? Loc: US ? Attending Dr: Ricardo Rodriguez D.O. ? Ordering Physician: Ricardo Rodriguez D.O. ?? Date of Service: 03/31/23 ?? Procedure(s): US OB transvaginal ?? Accession Number(s): [id number] ? cc: Ricardo Rodriguez D.O.; Erik Garcia M.D. ? [facility] ? [address] ? [place] [address] ? Patient Name: ?? KASANDRA Donna MACIAS ? MRN: [id number] ? date: 1995 ?Sex: F ?? Assigned Patient Location: US ?? Current Patient Location: ? Accession/Order Number: [id number] ?? Exam Date: 03/31/2023 ??19:37 ?Report Date: [...] measuring 4.6 cm in length ? *Reference: [facility] Practice Guideline for the performance of Obstetric ?? Ultrasound ?? Examinations, December 26, 2006. ? Electronically authenticated by: DUDLEY ??WEST ?? Date: 04/01/2023 ??07:16 ? Dictated By: ?Dudley Hernández M.D. ? Signed By: ?04/01/23718 ? DD/ 5 ? TD/TT: ? Software Development Analyst: Procedure Note Radiology, Radiologist, MD - 06/01/[address] [address] Ultrasound Report Signed Patient: KASANDRA MACIAS DMR#: [id number] : 1995Acct:[id number] Age/Sex: 27 / FADM Date: 03/31/23 Loc: US Attending Dr: Ricardo Rodriguez D.O. Ordering Physician: Ricardo Rodriguez D.O. Date of Service: 03/31/23 Procedure(s): US OB transvaginal Accession Number(s): [id number] cc: Ricardo Rodriguez D.O.; Erik Garcia M.D. [place] [id number] Patient Name: KASANDRA MACIAS MRN: [facility]:[id number] date: 1995 Sex: F Assigned Patient Location: US Current Patient Location: Accession/Order Number: [id number] Exam Date: 03/31/2023 19:37 Report Date: 04/01/2023 [...] Hernández M.D. Signed By:04/01/23718 DD/ 5 TD/TT: Software Development Analyst: Authorizing ProviderResult TypeResult StatusCorey Jennifer DOCLINISYNC IMAGINGFinal Result documented in this encounter Visit Diagnoses Not on filedocumented in this encounter Care Teams Team MemberRelationshipSpecialtyStart DateEnd Date Erik Garcia MD PCP - GeneralFamily Medicine/ Erik Garcia MD [address] [place] [address] PCP - GeneralFamily Medicine08/21/24documented as of this encounter
--- NOTE | 2025-02-03 23:06 | ED.ABDPAIN1 ---
HPI - Abdominal Pain General Chief Complaint: Abdominal Pain Stated Complaint: ABD PAIN Time Seen by Provider: 02/03/25 22:00 Source: patient Mode of arrival: walk-in History of Present Illness HPI narrative: cc - right adnexal/suprapubic abd pain Pt developed the pain 2 days ago but it suddenly worsened tonight around 6pm-630pm. She described the pain as sharp and localizes to the suprapubic and right adnexal areas. She had been recently evaluated by CT and kidney US after developing left sided abd pain. She was incidentally found to have follicular changes to the right adnexa on CT and the was found to have 2cm x 2.6cm x 3cm cyst on the right ovary during recent kidney US. She said that tonight the pain became sharp and felt different than how it felt previously. She said that she is concerned about RIGHT ovarian torsion. No blood in urine or stool. No change in pain with eating, urination or stool passage. No vaginal bleeding or discharge. Chart review shows that she has been rpeviously diagnosed with endometriosis, as well. Related Data Home Medications ?Medication ?Instructions ?Recorded ?Confirmed No Known Home Medications 02/03/25 02/03/25 Allergies Allergy/AdvReac Type Severity Reaction Status Date / Time No Known Drug Allergies Allergy Verified 08/31/24 10:06 [facility] Medical History (Updated 02/03/25 @ 23:54 by Gerhard Bowman) Migraine ?G43.909 - Migraine, unspecified, not intractable, without status migrainosus (ICD-10) Complex ovarian cyst ?N83.299 - Other ovarian cyst, unspecified side (ICD-10) Right ovarian cyst ?N83.201 - Unspecified ovarian cyst, right side (ICD-10) Pelvic pain ?R10.2 - Pelvic and perineal pain (ICD-10) Encounter for assessment ?Z39.2 - Encounter for routine follow-up (ICD-10) History of hysterosalpingogram ?Z98.890 - Other specified postprocedural states (ICD-10) Depression ?F32.A - Depression, unspecified (ICD-10) Anxiety ?F41.9 - Anxiety disorder, unspecified (ICD-10) Asthma ?J45.909 - Unspecified asthma, uncomplicated (ICD-10) Polyhydramnios ?O40.9XX0 - Polyhydramnios, unspecified trimester, not applicable or unspecified (ICD-10) Miscarriage ?O03.9 - Complete or unspecified spontaneous without complication (ICD-10) Endometriosis ?N80.9 - Endometriosis, unspecified (ICD-10) Surgical History (Updated 08/31/24 @ 10:11 by Miroslava Holman NP) History of laparoscopy ?Z98.890 - Other specified postprocedural states (ICD-10) History of dilation and curettage ?Z98.890 - Other specified postprocedural states (ICD-10) History of colonoscopy ?Z98.890 - Other specified postprocedural states (ICD-10) Hx of tonsillectomy ?Z90.89 - Acquired absence of other organs (ICD-10) Family History (Updated 08/12/23 @ 00:44 by Robin Bloom) Grandmother Family history of myocardial infarction Family history of cancer Family history of CHF (congestive heart failure) Family history of diabetes mellitus Family history of hypertension Mother Family history of cancer Grandfather Family history of cancer Family history of diabetes mellitus Family history of hypertension Social History (Updated 08/31/24 @ 10:07 by Miroslava Holman NP) Within the past year, how often did you have a drink containing alcohol: monthly or less Within the past year, how often did you have six or more drinks on one occasion: never Smoking status: Never smoker Non-prescribed substance use: denies use 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 Highest level of school completed/degree received: Associate degree: occupational, technical, vocational program Are you now , , , , never or living with a partner: In a typical week, how many times do you talk on the telephone with family, friends, or neighbors: 3 or more times per week How often do you get together with friends or relatives: 3 or more times per week Little interest or pleasure in doing things: not at all Feeling down, depressed, or hopeless: not at all Feel stressed/tense/nervous/anxious/difficulty sleeping: only a little Do you think of yourself as: straight/heterosexual Gender Identity: female Exam Narrative Exam Narrative: Nurses notes and vital signs reviewed and patient is not hypoxic. afebrile General: Well-appearing and in no apparent distress. Skin: Warm, dry, no pallor noted. Eye: Pupils are equal, round and EOMI. No scleral icterus. Cardiovascular: Regular Rate and Rhythm without murmur, gallop or rub. Respiratory: No accessory muscle use or respiratory distress. Lungs are clear to auscultation, no wheezing, rales or rhonchi Back: No CVA tenderness Musculoskeletal: normal ROM GI: Abdomen is soft, non-distended. Normal bowel sounds. No abdominal or adnexal masses appreciated. Midline suprapubic tenderness to palpation -no right adnexal tenderness. No tenderness at McBurney's. Negative Rovsing's.. No rebound, guarding, or rigidity noted. Neurological: A&O x4. No cranial nerve dysfunction observed. No truncal ataxia. Moves all extremities. Sensation intact. Psychiatric: Cooperative and interactive. Normal mood and affect. Constitutional Vital Signs, click to edit/add: Last Vital Signs Temp 98.3 F 02/03/25 23:47 Pulse 60 02/03/25 23:47 Resp 17 02/03/25 23:47 BP 128/84 02/03/25 23:47 Pulse Ox 99 02/03/25 23:47 O2 Del Method Room Air 02/03/25 21:53 Course Vital Signs Vital signs: Vital Signs Temperature 98.2 F 02/03/25 21:53 Pulse Rate 63 02/03/25 21:53 Respiratory Rate 18 02/03/25 21:53 Blood Pressure 146/104 H 02/03/25 21:53 Pulse Oximetry 98 02/03/25 21:53 Oxygen Delivery Method Room Air 02/03/25 21:53 Temperature 98.3 F 02/03/25 23:47 Pulse Rate 60 02/03/25 23:47 Respiratory Rate 17 02/03/25 23:47 Blood Pressure 128/84 02/03/25 23:47 Pulse Oximetry 99 02/03/25 23:47 Oxygen Delivery Method Room Air 02/03/25 21:53 MDM - Abdominal Pain MDM Narrative Medical decision making narrative: Patient presents with suprapubic abdominal pain and was recently noted to have a cyst on the right ovary. She is concerned that the sudden sharpening and worsening of her pain is associated with ovarian torsion and she presents to the ED for evaluation. Chart review shows that she has history of endometriosis and underwent laparoscopic evaluation in August 2024. She was found to have a right ovarian cyst which was drained at that time. Left adnexa was unremarkable, according to Dr. Rodriguez's surgical report. I reviewed the patient's recent abdominal CT as well as recent pelvic/abdominal ultrasound. Results are described in the HPI above. Blood was drawn and sent for testing. Patient has elevated white blood cell count at 12.4. No left shift is noted. CMP is unremarkable. Total bilirubin is elevated but direct bilirubin is Serum hCG is negative and urinalysis is negative. The senior service technician was called in from home in order to obtain an ultrasound of the pelvis to rule out adnexal/ovarian torsion. No torsion identified on ultrasound of the pelvis. Patient and I discussed her results and possible diagnoses including endometriosis and the right adnexal cyst. She she declined my offer for pain meds to be given here in the emergency department as well as given to her to take at home and said that she will call Dr. Rodriguez's office tomorrow to discuss follow-up. Medical Records Attestation: I reviewed the patient's medical records. Lab Data Attestation: I reviewed the patient's lab results. Labs: Lab Results 02/03/25 02/03/25 Range/Units 22:14 22:19 WBC 12.4 H (4.0-11.0) 10^3/uL RBC 4.42 (4.20-5.40) 10^6/uL Hgb 13.5 (12.0-16.0) g/dL Hct 40.1 (36.0-48.0) % MCV 90.7 (81.0-99.0) fL MCH 30.5 (26.7-34.0) pg MCHC 33.7 (29.9-35.2) g/dL RDW 13.5 (11.0-15.0) % Plt Count 328 (150-450) 10^3/uL MPV 8.7 L (9.5-13.5) fL Neut % (Auto) 69.0 (43.0-75.0) % Lymph % (Auto) 20.3 L (20.5-60.0) % [place] % (Auto) 9.0 (1.7-12.0) % Eos % (Auto) 1.0 (0.9-7.0) % Baso % (Auto) 0.3 (0.2-2.0) % Neut # (Auto) 8.6 H (1.4-6.5) 10^3/uL Lymph # (Auto) 2.5 (1.2-3.8) 10^3/uL [place] # (Auto) 1.1 H (0.3-0.8) 10^3/uL Eos # (Auto) 0.1 (0.0-0.7) 10^3/uL Baso # (Auto) 0.0 (0.0-0.1) 10^3/uL Abs Immat Gran (auto) 0.05 H (0.00-0.03) 10^3/uL Imm/Tot Granulo (auto) 0.4 (0.0-0.5) % Sodium 141 (136-145) mmol/L Potassium 4.0 (3.5-5.1) mmol/L Chloride 104 (98-107) mmol/L Carbon Dioxide 29.4 (21.0-32.0) mmol/L Anion Gap 11.6 BUN 19.0 H (7.0-18.0) mg/dL Creatinine 0.77 (0.55-1.02) mg/dL Est GFR ( Amer) >60 (>=60 mL/min/1.73m^2) Est GFR (Non-Af Amer) >60 (>=60 mL/min/1.73m^2) BUN/Creatinine Ratio 24.7 Glucose 111 H (74-106) mg/dL Calcium 8.9 (8.5-10.1) mg/dL Total Bilirubin 1.1 H (0.2-1.0) mg/dL Direct Bilirubin 0.2 (0.0-0.2) mg/dL AST 16 (15-37) U/L ALT 32 (14-59) U/L Alkaline Phosphatase 51 (46-116) U/L Total Protein 6.7 (6.4-8.2) g/dL Albumin 3.8 (3.4-5.0) g/dL Globulin 2.9 g/dL Albumin/Globulin Ratio 1.3 Lipase 26.0 (16.0-77.0) U/L Serum HCG, Qual Negative (NEGATIVE) Urine Color Lt. yellow (YELLOW) Urine Clarity Clear (CLEAR) Urine pH 6.0 (5.0-9.0) Ur Specific [place] 1.020 (1.005-1.025) Urine Protein Negative (NEG/TRACE) mg/dL Urine Glucose (UA) Negative (NEGATIVE) mg/dL Urine Ketones Negative (NEGATIVE) mg/dL Urine Occult Blood Negative (NEGATIVE) Urine Nitrite Negative (NEGATIVE) Urine Bilirubin Negative (NEGATIVE) Urine Urobilinogen 0.2 (0.2-1.0) EU/dL Ur Leukocyte Esterase Negative (NEGATIVE) Discharge Plan Discharge Chief Complaint: Abdominal Pain Clinical Impression: Ovarian cyst, Abdominal pain Patient Disposition: Home, Self-Care Time of Disposition Decision: 23:54 Prescriptions / Home Meds: No Action No Known Home Medications Print Language: Kazakh Instructions: Ovarian Cyst (ED), Abdominal Pain (ED) Referrals: Wisam Rodriguez DO [Physician, PUBLIC WELFARE DIRECTOR] - As soon as possible
--- NOTE | 2025-02-03 23:17 | PC.NURSE ---
i walked into this patient's room to find this patient awake and alert sitting upright on the bed this patient is aware that we are waiting on the ultra sound tech to arrive. this patient voices no pain and voices no other complaints, needs and shows no signs of distress
[2025-02-03 23:47] VITALS: BP 128/84; PULSE 60; TEMP 36.8; O2SAT 99
== END 2025-02-04 00:07 | disposition home or self-care (01) ==
PROVIDERS: Emergency Provider Emergency Medicine; PCP Family Medicine
DX: N83.291 Other ovarian cyst, right side (principal); R10.84 Generalized abdominal pain
CPT/HCPCS: 36415; 76830; 80053; 81003; 82248; 83690; 84703; 85025; 93975; 99284; 99285